=== PATIENT | female | born 2005 | race Caucasian/White ===

== ENCOUNTER 2024-01-02 02:25 | Emergency (ER) | payer SELFPAY ==
[2024-01-02 02:34] VITALS: BP 131/67; PULSE 64; TEMP 36.5; O2SAT 99; BMI 24.0
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
--- NOTE | 2024-01-02 03:33 | PC.NURSE ---
urine and blood draw collected and I walked these sample down to lab dept. this patient was given crackers and something to eat. this patient is aware waiting on the test results to come back, then we will call [facility] some you can talk to someone there. this patient voices no concerns or needs and shows no signs of distress
[2024-01-02 03:40] LABS: Basophils Percent Auto 0.5 % (0.2-2.0); Eosinophils Absolute Auto 0.2 10^3/uL (0.0-0.7); Hematocrit 34.7 % (36.0-48.0); Hemoglobin 10.9 g/dL (12.0-16.0); Immature Granulocytes Abs Auto 0.02 10^3/uL (0.00-0.03); Immature Granulocytes Pct Auto 0.2 % (0.0-0.5); Lymphocytes Absolute Auto 2.5 10^3/uL (1.2-3.8); Lymphocytes Percent Auto 30.4 % (20.5-60.0); Mean Corpuscular HGB Conc 31.4 g/dL (29.9-35.2); Mean Corpuscular Hemoglobin 23.4 pg (26.7-34.0); Mean Corpuscular Volume 74.6 fL (81.0-99.0); Mean Platelet Volume 10.2 fL (9.5-13.5); Monocytes Absolute Auto 0.8 10^3/uL (0.3-0.8); Monocytes Percent Auto 9.4 % (1.7-12.0); Neutrophils Absolute Auto 4.7 10^3/uL (1.4-6.5); Neutrophils Percent Auto 57.5 % (43.0-75.0); Platelet Count 403 10^3/uL (150-450); Red Blood Count 4.65 10^6/uL (4.20-5.40); Red Cell Distribution Width 15.3 % (11.0-15.0); White Blood Count 8.2 10^3/uL (4.0-11.0)
[2024-01-02 03:42] LABS: Bilirubin Urine NEGATIVE (NEGATIVE); Blood Urine NEGATIVE (NEGATIVE); Clarity Urine CLEAR (CLEAR); Color Urine LT. YELLOW (YELLOW); Glucose Urine UA NEGATIVE (NEGATIVE); Ketones Urine >=80 mg/dL (NEGATIVE); Leukocyte Esterase Urine TRACE (NEGATIVE); Nitrite Urine NEGATIVE (NEGATIVE); Protein Urine TRACE mg/dL (NEG/TRACE); Specific Gravity Urine 1.025 (1.005-1.025); pH Urine 6.5 (5.0-9.0)
[2024-01-02 03:51] LABS: Amphetamine Screen Urine NEGATIVE (NEGATIVE); Barbiturates Screen Urine NEGATIVE (NEGATIVE); Benzodiazepines Screen Urine NEGATIVE (NEGATIVE); Buprenorphine Screen Urine NEGATIVE (NEGATIVE); Cannabinoid Screen Urine NEGATIVE (NEGATIVE); Cocaine Screen Urine NEGATIVE (NEGATIVE); Methadone Screen Urine NEGATIVE (NEGATIVE); Methamphetamines Screen Urine NEGATIVE (NEGATIVE); Opiate Screen Urine NEGATIVE (NEGATIVE); Oxycodone Screen Urine NEGATIVE (NEGATIVE); Phencyclidine Screen Urine NEGATIVE (NEGATIVE); Tricyclic Antidepressant Urine NEGATIVE (NEGATIVE)
[2024-01-02 03:59] LABS: Alanine Aminotransferase 35 U/L (14-59); Albumin Globulin Ratio 0.9; Albumin Level 3.6 g/dL (3.4-5.0); Alkaline Phosphatase 115 U/L (46-116); Anion Gap 14.6; Aspartate Amino Transferase 23 U/L (15-37); BUN Creatinine Ratio 9.9; Bilirubin Total 0.3 mg/dL (0.2-1.0); Calcium 9.6 mg/dL (8.5-10.1); Carbon Dioxide 25.9 mmol/L (21.0-32.0); Chloride 104 mmol/L (98-107); Estimated GFR (African America >60 (>=60 mL/min/1.73m^2); Estimated GFR (Non-African Ame >60 (>=60 mL/min/1.73m^2); Glucose 96 mg/dL (74-106); Potassium 3.5 mmol/L (3.5-5.1); Salicylate <2.8 mg/dL (<=19.9); Sodium 141 mmol/L (136-145); Total Protein 7.6 g/dL (6.4-8.2)
[2024-01-02 04:00] LABS: Acetaminophen <2.0 ug/mL (10.0-30.0); Ethanol <3 mg/dL
[2024-01-02 04:08] VITALS: BP 119/72; PULSE 82; O2SAT 99
[2024-01-02 04:09] LABS: Mucus Urine LARGE (NONE SEEN); Squamous Epithelial Cell Urine MODERATE #/LPF (NONE/RARE)
--- NOTE | 2024-01-02 04:09 | PC.NURSE ---
this patient awake and alert sitting upright on the bed looking in her purse and listening to her music. this patient voices no concerns and shows no signs of distress
[2024-01-02 04:11] LABS: Bacteria Urine MODERATE #/HPF (NONE SEEN); Cast Seen? NONE SEEN #/LPF (NONE SEEN); Crystals Seen? None Seen #/HPF (None Seen); RBC Urine 0-2 #/HPF (0-2); Urine Culture Indicated YES
[2024-01-02 04:43] LABS: HCG Qualitative Urine* NEGATIVE (NEGATIVE); Internal Control Within Normal Limits
[2024-01-02 05:05] VITALS: BP 103/75; PULSE 72; O2SAT 95
--- NOTE | 2024-01-02 05:06 | PC.NURSE ---
this patient awake and alert lying on her left side on the bed talking on her cell phone
[2024-01-02 06:05] VITALS: BP 122/77; PULSE 74; O2SAT 98
--- NOTE | 2024-01-02 09:39 | ED.PSYCH1 ---
HPI - Psych General Chief Complaint: Psychiatric Symptoms Stated Complaint: SUICIDAL THOUGHTS Time Seen by Provider: 01/02/24 02:45 Source: Reports patient Mode of arrival: walk-in Limitations: Reports no limitations History of Present Illness HPI Narrative: 18-year-old female presented to the emergency department and was initially seen by Dr. Card. Please see her full history and physical exam. Related Data Home Medications ?Medication ?Instructions ?Recorded ?Confirmed No Known Home Medications 01/02/24 01/02/24 Allergies Allergy/AdvReac Type Severity Reaction Status Date / Time No Known Drug Allergies Allergy Verified 01/02/24 02:33 PFSH PFSH Social History Little interest or pleasure in doing things: not at all Feeling down, depressed, or hopeless: several days Exam Constitutional Vital Signs, click to edit/add: Last Vital Signs Temp 97.7 F 01/02/24 02:34 Pulse 74 01/02/24 06:05 Resp 18 01/02/24 06:05 BP 122/77 01/02/24 06:05 Pulse Ox 98 01/02/24 06:05 O2 Del Method Room Air 01/02/24 02:34 Course Vital Signs Vital signs: Vital Signs Temperature 97.7 F 01/02/24 02:34 Pulse Rate 64 01/02/24 02:34 Respiratory Rate 19 01/02/24 02:34 Blood Pressure 131/67 01/02/24 02:34 Pulse Oximetry 99 01/02/24 02:34 Oxygen Delivery Method Room Air 01/02/24 02:34 Temperature 97.7 F 01/02/24 02:34 Pulse Rate 74 01/02/24 06:05 Respiratory Rate 18 01/02/24 06:05 Blood Pressure 122/77 01/02/24 06:05 Pulse Oximetry 98 01/02/24 06:05 Oxygen Delivery Method Room Air 01/02/24 02:34 MDM - Psych MDM Narrative Medical decision making narrative: The patient is medically cleared. The patient was quite reluctant to provide information for the mental health services personnel and at 1 point made a threat to harm herself. Mental health services has intervened and they are clearing her to go home but have made an appointment for the patient to see psychiatry today as well as multiple other follow-up appointments. Differential Diagnosis Differential diagnosis: Likely acute psychosis, suicidal ideation, bipolar disorder, depression and acute anxiety Lab Data Attestation: I reviewed the patient's lab results. Labs: Lab Results 01/02/24 01/02/24 Range/Units 03:14 03:20 WBC 8.2 (4.0-11.0) 10^3/uL RBC 4.65 (4.20-5.40) 10^6/uL Hgb 10.9 L (12.0-16.0) g/dL Hct 34.7 L (36.0-48.0) % MCV 74.6 L (81.0-99.0) fL MCH 23.4 L (26.7-34.0) pg MCHC 31.4 (29.9-35.2) g/dL RDW 15.3 H (11.0-15.0) % Plt Count 403 (150-450) 10^3/uL MPV 10.2 (9.5-13.5) fL Neut % (Auto) 57.5 (43.0-75.0) % Lymph % (Auto) 30.4 (20.5-60.0) % [place] % (Auto) 9.4 (1.7-12.0) % Eos % (Auto) 2.0 (0.9-7.0) % Baso % (Auto) 0.5 (0.2-2.0) % Neut # (Auto) 4.7 (1.4-6.5) 10^3/uL Lymph # (Auto) 2.5 (1.2-3.8) 10^3/uL [place] # (Auto) 0.8 (0.3-0.8) 10^3/uL Eos # (Auto) 0.2 (0.0-0.7) 10^3/uL Baso # (Auto) 0.0 (0.0-0.1) 10^3/uL Abs Immat Gran (auto) 0.02 (0.00-0.03) 10^3/uL Imm/Tot Granulo (auto) 0.2 (0.0-0.5) % Sodium 141 (136-145) mmol/L Potassium 3.5 (3.5-5.1) mmol/L Chloride 104 (98-107) mmol/L Carbon Dioxide 25.9 (21.0-32.0) mmol/L Anion Gap 14.6 BUN 8.0 (6.4-19.3) mg/dL Creatinine 0.81 (0.55-1.02) mg/dL Est GFR ( Amer) >60 (>=60 mL/min/1.73m^2) Est GFR (Non-Af Amer) >60 (>=60 mL/min/1.73m^2) BUN/Creatinine Ratio 9.9 Glucose 96 (74-106) mg/dL Calcium 9.6 (8.5-10.1) mg/dL Total Bilirubin 0.3 (0.2-1.0) mg/dL AST 23 (15-37) U/L ALT 35 (14-59) U/L Alkaline Phosphatase 115 (46-116) U/L Total Protein 7.6 (6.4-8.2) g/dL Albumin 3.6 (3.4-5.0) g/dL Globulin 4.0 g/dL Albumin/Globulin Ratio 0.9 Urine Color Lt. yellow (YELLOW) Urine Clarity Clear (CLEAR) Urine pH 6.5 (5.0-9.0) Ur Specific [place] 1.025 (1.005-1.025) Urine Protein Trace (NEG/TRACE) mg/dL Urine Glucose (UA) Negative (NEGATIVE) mg/dL Urine Ketones >=80 A (NEGATIVE) mg/dL Urine Occult Blood Negative (NEGATIVE) Urine Nitrite Negative (NEGATIVE) Urine Bilirubin Negative (NEGATIVE) Urine Urobilinogen 1.0 (0.2-1.0) EU/dL Ur Leukocyte Esterase Trace A (NEGATIVE) Urine RBC 0-2 (0-2) #/HPF Urine WBC 5-10 A (NONE SEEN) #/HPF Ur Squamous Epith Cells Moderate A (NONE/RARE) #/LPF Urine Crystals None seen (None Seen) #/HPF Urine Bacteria Moderate A (NONE SEEN) #/HPF Urine Casts None seen (NONE SEEN) #/LPF Urine Mucus Large A (NONE SEEN) Ur Culture Indicated? Yes Urine HCG, Qual Negative (NEGATIVE) Salicylates <2.8 (<=19.9) mg/dL Urine Opiates Screen Negative (NEGATIVE) Ur Buprenorphine Scrn Negative (NEGATIVE) Ur Oxycodone Screen Negative (NEGATIVE) Urine Methadone Screen Negative (NEGATIVE) Acetaminophen <2.0 L (10.0-30.0) ug/mL Ur Barbiturates Screen Negative (NEGATIVE) U Tricyclic Antidepress Negative (NEGATIVE) Ur Phencyclidine Scrn Negative (NEGATIVE) Ur Amphetamines Screen Negative (NEGATIVE) U Methamphetamines Scrn Negative (NEGATIVE) U Benzodiazepines Scrn Negative (NEGATIVE) Urine Cocaine Screen Negative (NEGATIVE) U Cannabinoids Screen Negative (NEGATIVE) Ethanol Quant <3 mg/dL Discharge Plan Discharge Chief Complaint: Psychiatric Symptoms Clinical Impression: Bipolar disorder Patient Disposition: Home, Self-Care Time of Disposition Decision: 09:56 Condition: Good Mode of Transportation: Private Vehicle Prescriptions / Home Meds: No Action No Known Home Medications Print Language: Niuean Instructions: Bipolar Disorder (ED) Referrals: Physician,Non-Staff, MD [Primary Care Provider] - 1 week
== END 2024-01-02 12:30 | disposition home or self-care (01) ==
PROVIDERS: Emergency Medicine; Emergency Provider Emergency Medicine
DX: F31.9 Bipolar disorder, unspecified (principal); F90.9 Attention-deficit hyperactivity disorder, unspecified type; F41.9 Anxiety disorder, unspecified; F43.10 Post-traumatic stress disorder, unspecified; Z62.810 Personal history of physical and sexual abuse in childhood; Z62.819 Personal history of unspecified abuse in childhood; Z59.89 Other problems related to housing and economic circumstances; R82.998 Other abnormal findings in urine
CPT/HCPCS: 36415; 80053; 80179; 80307; 80320; 80329; 81001; 84703; 85025; 87086; 99284

== ENCOUNTER 2024-05-16 21:26 | Emergency (ER) | payer MEDICAID, SELFPAY ==
[2024-05-16 21:31] VITALS: BP 119/61; PULSE 66; TEMP 36.6; O2SAT 97; BMI 26.0
[2024-05-16 21:33] VITALS: PULSE 75
--- OUTSIDE RECORDS SUMMARY | 2024-05-16 21:37 | XMS_ITS | CCD ---
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 Role Phone WAN VASQUEZ Consulting Unavailable JUANCHO, DR RUIZ Primary Care Unavailable KUNAL FRANK Attending Unavailable KUNAL FRANK Admitting Unavailable CY HERNANDEZ Consulting Unavailable KUNAL FRANK Consulting Unavailable NONE, XXXX Primary Care Physician Holli Garvin Primary Care Physician Vijay PACHECO Primary Care Physician Kourtney PIERCE Unavailable [facility], [facility] Primary Care Physician Eamon Stahllocatmeseret, Noms Provider Primary Care Provider Ras Miller Attending Unavailable Jerry WILSON Admitting Unavailable HELIO PIERCE Attending Unavaila ble PIERCEHELIO Admitting Unavaila ble DO Magalis Snow Attending Unavaila DO Magalis Acevedo Admitting Unavaila ble Alon Jonhson Attending Unavailable Alon Johnson Admitting Unavailable Steven Alatorre Attending Unavailable Steven Alatorre Attending Unavailable Alon Johnson Attending Unavailable Steven Alatorre Attending Unavailable Steven Alatorre Attending Unavailable Damaris Jean Baptiste Attending Unavailable STEVE, Jerry R Admitting Unavailable STEVEScot REGANy R Attending Unavailable HELIO PIERCE Attending Unavaila ble PIERCEHELIO Admitting Unavaila ble Kourtney PIERCE Admitting Unavailable Kourtney PIERCE Attending Unavailable DO Magalis Snow Attending Unavaila DO Magalis Acevedo Admitting Unavaila Magalis Acevedo Admitting Unavailable Magalis Snow Attending Unavailable Magalis Snow Attending Unavailable Magalis Snow Admitting Unavailable Magalis Snow Attending Unavailable Magalis Snow Admitting Unavailable DO Magalis Snow Attending Unavaila DO Magalis Acevedo Admitting Unavaila kelsie Eduardolojess CASE, Noms Provider Primary Care Provi nani John Paul Lovell MD Primary Care Provider Wil Rider MD Attending Provider Wil Rider Attending Unavailab Wil Loco Admitting Unavailab John Paul Duncan Primary Care Unavailable Sadie Thomas MD Primary Care Provider Mak Jordan NP Unavailable EDUARDO BUTLER Referring Unavailable MAGALIS SNOW Attending Unavailable MAGALIS SNOW Attending Unavailable MAGALIS SNOW Attending Unavailable MAGALIS SNOW Attending Unavailable MAK JORDAN Attending Unavailable Allergies Allergy Classification Reported Allergen(s) Allergy Type Date of Onset Reaction(s) Facility (6 sources) No Known Medication Allergies; Translations: [No Known Medication Allergies] Propensity to adverse reactions (disorder) [facility] Repository Medications Current Medications Medication Drug Class(es) Dates Sig (Normalized) Sig (Original) acetaminophen 325 mg oral tablet (3 sources) Start: 09-11-2023 take 3 tablets by mouth every eight hours as needed for headache acetaminophen 325 mg Tab 975 mg = 3 tab(s), Oral, q8hr, PRN Headache, # 90 tab(s), Refills(s) 1, Pharmacy: [facility], 165.1, cm, 09/10/23 21:47:00 EDT, Height/Length Dosing, 84.5, kg, 09/10/23 21:47:00 EDT, Weight Dosing Start Date: 09/11/23 Status: Ordered [id number] 200 actuat albuterol 0.09 mg/actuat metered dose inhaler (4 sources) beta2-Adrenergic Agonist Start: 10-16-2023 End: 10-15-2024 take 2 puff(s) by inhalation every four hours for wheezing albuterol HFA (ProAir HFA) 90 mcg/act inhaler Indications: Wheezing , COVID-19 Inhale 2 puffs every 4 (four) hours if needed for wheezing 18 g 11 10/16/2023 10/15/2024 Active amoxicillin 875 mg / clavulanate 125 mg oral tablet (1 source) Penicillin-class Antibacterial Start: 10-30-2022 End: 11-09-2022 Augmentin 875 mg-125 mg Tab 1 tab(s), Oral, q12hr for 10 day(s), 20 tab(s), Refill(s) 0, [facility] #[id number], 165.1, cm, 10/30/22 10:55:00 EDT, Height/Length Dosing, 80.5, kg, 10/30/22 10:55:00 EDT, Weight Dosing Start Date: 10/30/22 Stop Date: 11/09/22 Status: Ordered Amphetamine / Dextroamphetamine (2 sources) Central Nervous System Stimulant Start: 06-02-2021 take 1 tablet by mouth twice daily Adderall 30 mg oral tablet 30 mg, 1 tab(s), Oral, BID, Refill(s) 0 Start Date: 06/02/21 Status: Ordered amphetamine aspartate 7.5 mg / amphetamine sulfate 7.5 mg / dextroamphetamine saccharate 7.5 mg / dextroamphetamine sulfate 7.5 mg oral tablet (5 sources) Central Nervous System Stimulant Start: 06-02-2021 take 1 tablet by mouth twice daily Adderall 30 mg oral tablet 30 mg, 1 tab(s), Oral, BID, Refill(s) 0 Start Date: 06/02/21 Status: Ordered brompheniramine maleate 0.4 mg/ml / dextromethorphan hydrobromide 2 mg/ml / pseudoephedrine hydrochloride 6 mg/ml oral solution (1 source) alpha-Adrenergic Agonist, Uncompetitive [id number]-asparta te Receptor Antagonist, Sigma-1 Agonist Start: 01-01-2023 End: 01-08-2023 take 5 mL by mouth every six hours brompheniramine/de xtromethorphan/PSE 2 mg-10 mg-30 mg/5 mL oral syrup 5 mL, Oral, q6hr for cold symptoms for 7 day(s), 140 mL, Refill(s) 0, [facility]/pharmacy #[id number], 165, cm, 01/01/23 15:53:00 EST, Height/Length Dosing, 77, kg, 01/01/23 15:53:00 EST, Weight Dosing Start Date: 01/01/23 Stop Date: 01/08/23 Status: Ordered cephalexin 500 mg oral capsule (1 source) Cephalosporin Antibacterial Start: 01-05-2022 End: 01-12-2022 take 1 capsule by mouth every twelve hours Keflex 500 mg Cap 500 mg = 1 cap(s), Oral, q12hr, X 7 day(s), # 14 cap(s), Refills(s) 0, Pharmacy: [facility] #[id number], 165, cm, 01/05/22 7:56:00 EST, Height/Length Dosing, 74.1, kg, 01/05/22 7:56:00 EST, Weight Dosing Start Date: 01/05/22 Stop Date: 01/12/22 Status: Ordered docusate sodium 100 mg oral capsule (3 sources) Start: 09-11-2023 take 1 capsule by mouth twice daily docusate sodium 100 mg Cap 100 mg = 1 cap(s), Oral, BID, # 30 cap(s), Refills(s) 1, Pharmacy: [facility], 165.1, cm, 09/10/23 21:47:00 EDT, Height/Length Dosing, 84.5, kg, 09/10/23 21:47:00 EDT, Weight Dosing Start Date: 09/11/23 Status: Ordered ferrous sulfate 325 mg oral tablet (10 sources) Start: 09-11-2023 ferrous sulfate 325 mg Tab 325 mg = 1 tab(s), Oral, BIDWM, # 60 tab(s), Refills(s) 5, Pharmacy: [facility], 165.1, cm, 09/10/23 21:47:00 EDT, Height/Length Dosing, 84.5, kg, 09/10/23 21:47:00 EDT, Weight Dosing Start Date: 09/11/23 Status: Ordered Start: 06-09-2021 take 1 tablet by leslie th once daily Slow Fe (as elemental iron) 45 mg oral tablet, extended release 45 mg = 1 tab(s), Oral, Daily, # 30 tab(s), Refills(s) 1, [id number] 165.1, cm, 06/07/21 7:55:00 EDT, Height/Length Dosing, 83.6, kg, 06/07/21 7:55:00 EDT, Weight Dosing Start Date: 06/09/21 Status: Ordered ibuprofen 600 mg oral tablet (20 sources) Nonsteroidal Anti-inflammatory Drug Start: 09-11-2023 take 1 tablet by mouth every six hours as needed ibuprofen 600 mg Tab 600 mg = 1 tab(s), Oral, q6hr, PRN Other (see comment), # 60 tab(s), Refills(s) 1, Pharmacy: [place] [id number], 165.1, cm, 09/10/23 21:47:00 EDT, Height/Length Dosing, 84.5, kg, 09/10/23 21:47:00 EDT, Weight Dosing Start Date: 09/11/23 Status: Ordered Start: 08-09-2022 take 1 tablet by leslie every six hours ibuprofen 600 mg Tab 600 mg = 1 tab(s), Oral, q6hr, # 40 tab(s), Refills(s) 0, Pharmacy: [facility] #[id number], 165.1, cm, 08/07/22 17:54:00 EDT, Height/Length Dosing, 84.5, kg, 08/07/22 17:54:00 EDT, Weight Dosing Start Date: 08/09/22 Status: Ordered Start: 06-09-2021 take 1 tablet by leslie every six hours ibuprofen 600 mg Tab 600 mg = 1 tab(s), Oral, q6hr, # 15 tab(s), Refills(s) 0, Pharmacy: [facility]acy #[id number], 165.1, cm, 06/07/21 7:55:00 EDT, Height/Length Dosing, 83.6, kg, 06/07/21 7:55:00 EDT, Weight Dosing Start Date: 06/09/21 Status: Ordered Start: 01-28-2020 take 1 tablet by leslie every eight hours ibuprofen 600 mg Tab 600 mg = 1 tab(s), Oral, q8hr, # 42 tab(s), Refills(s) 1, Pharmacy: [facility] #[id number], 169, cm, 01/27/20 13:57:00 EST, Height/Length Dosing, 70.9, kg, 01/27/20 13:57:00 EST, Weight Dosing Start Date: 01/28/20 Status: Ordered metoclopramide 5 mg oral tablet (11 sources) Dopamine-2 Receptor Antagonist Start: 01-26-2023 End: 02-02-2023 take 1 tablet by mouth four times daily as needed for nausea Reglan 5 mg Tab 5 mg = 1 tab(s), Oral, QID, as needed for nausea, X 7 day(s), # 15 tab(s), Refills(s) 0 Start Date: 01/26/23 Stop Date: 02/02/23 Status: Ordered Start: 01-02-2022 End: 01-09-2022 take 1 tablet by mouth every six hours Reglan 5 mg Tab 5 mg = 1 tab(s), Oral, q6hr, X 7 day(s), # 28 tab(s), Refills(s) 0, Pharmacy: [facility] #[id number], 165, cm, 10/16/21 20:16:00 EDT, Height/Length Dosing, 75.2, kg, 01/02/22 12:43:00 EST, Weight Dosing Start Date: 01/02/22 Stop Date: 01/09/22 Status: Ordered Start: 10-26-2020 take 1 tablet by leslie th every six hours as needed for nausea Reglan 10 mg Tab 10 mg = 1 tab(s), Oral, q6hr, PRN Nausea, # 10 tab(s), Refills(s) 0, Pharmacy: [facility] #[id number], 168, cm, 10/26/20 13:25:00 EDT, Height/Length Dosing, 75, kg, 10/26/20 13:25:00 EDT, Weight Dosing Start Date: 10/26/20 Status: Ordered naproxen 500 mg oral tablet (9 sources) Nonsteroidal Anti-inflammatory Drug Start: 09-14-2021 take 1 tablet by mouth twice daily as needed for pain Naprosyn 500 mg Tab 500 mg = 1 tab(s), Oral, BID, PRN Pain, # 20 tab(s), Refills(s) 0, [id number], cm, 10/16/21 20:16:00 EDT, Height/Length Dosing, 73.4, kg, 10/16/21 20:33:00 EDT, Weight Dosing Start Date: 10/16/21 Status: Ordered nitrofurantoin, macrocrystals 25 mg / nitrofurantoin, monohydrate 75 mg oral capsule (1 source) Nitrofuran Antibacterial Start: 02-13-2023 End: 02-18-2023 take 1 capsule by mouth twice daily Macrobid 100 mg Cap 100 mg = 1 cap(s), Oral, BID, X 5 day(s), # 10 cap(s), Refills(s) 0, [id number], 165, cm, 02/13/23 14:25:00 EST, Height/Length Dosing, 69.5, kg, 02/13/23 14:25:00 EST, Weight Dosing Start Date: 02/13/23 Stop Date: 02/18/23 Status: Ordered ondansetron 8 mg disintegrating oral tablet (8 sources) Serotonin-3 Receptor Antagonist Start: 10-26-2020 take 1 tablet by mouth every eight hours as needed for nausea ondansetron 8 mg Dis Tab 8 mg = 1 tab(s), Oral, q8hr, PRN Nausea/Vomiting, # 6 tab(s), Refills(s) 0, Pharmacy: [facility] #[id number], 168, cm, 10/26/20 13:25:00 EDT, Height/Length Dosing, 75, kg, 10/26/20 13:25:00 EDT, Weight Dosing Start Date: 10/26/20 Status: Ordered Start: 10-26-2020 take 1 tablet by leslie th every eight hours as needed for nausea ondansetron 8 mg Dis Tab 8 mg = 1 tab(s), Oral, q8hr, PRN Nausea/Vomiting, # 6 tab(s), Refills(s) 0, Pharmacy: [facility] #[id number], 168, cm, 10/26/20 13:25:00 EDT, Height/Length Dosing, 75, kg, 10/26/20 13:25:00 EDT, Weight Dosing Start Date: 10/26/20 Status: Ordered penicillin v potassium 500 mg oral tablet (5 sources) Start: 10-16-2021 take 1 tablet by mouth every six hours penicillin V potassium 500 mg Tab 500 mg = 1 tab(s), Oral, q6hr, # 28 tab(s), Refills(s) 0, Pharmacy: [facility]acy #[id number], 165, cm, 10/16/21 20:16:00 EDT, Height/Length Dosing, 73.4, kg, 10/16/21 20:33:00 EDT, Weight Dosing Start Date: 10/16/21 Status: Ordered Start: 09-14-2021 End: 09-24-2021 take 1 tablet by mouth three times daily penicillin V potassium 500 mg Tab 500 mg = 1 tab(s), Oral, TID, Take one tab by mouth 3 times a day. # 30, X 10 day(s), # 30 tab(s), Refills(s) 0, Pharmacy: [facility]acy #[id number], 165.1, cm, 06/07/21 7:55:00 EDT, Height/Length Dosing, 83.6, kg, 06/07/21 7:55:00 EDT, Weight Dosing Start Date: 09/14/21 Stop Date: 09/24/21 Status: Ordered Vit-Fe Fumarate-FA ( Vitamins) 28-0.8 MG tablet (1 source) Start: 05-09-2024 End: 05-09-2025 take 1 tablet by mouth once daily Vit-Fe Fumarate-FA ( Vitamins) 28-0.8 MG tablet Indications: Missed menses , , unspecified gestational age , Encounter for supervision of normal first in first trimester Take 1 tablet by mouth Daily 30 tablet 11 05/09/2024 05/09/2025 Active promethazine hydrochloride 12.5 mg rectal suppository (8 sources) Phenothiazine Start: 02-13-2023 End: 02-18-2023 take 12.5 mg rectal route every four hours as needed promethazine 12.5 mg Supp 12.5 mg = 1 supp, Rectal, q4hr, PRN for motion sickness, X 5 day(s), # 30 supp, Refills(s) 0, Pharmacy: [facility] #[id number], 165, cm, 02/13/23 14:25:00 EST, Height/Length Dosing, 69.5, kg, 02/13/23 14:25:00 EST, Weight Dosing Start Date: 02/13/23 Stop Date: 02/18/23 Status: Ordered Start: 01-23-2023 take 25 mg rectal ro salamatof every six hours as needed for nausea promethazine 25 mg Supp 25 mg = 1 supp, Rectal, q6hr, PRN for nausea/vomiting, # 12 supp, Refills(s) 0 Start Date: 01/23/23 Status: Ordered Start: 01-05-2022 take 1 tablet by leslie th three times daily promethazine 25 mg Tab 25 mg = 1 tab(s), Oral, TID, # 15 tab(s), Refills(s) 0, [id number], 165, cm, 01/05/22 7:56:00 EST, Height/Length Dosing, 74.1, kg, 01/05/22 7:56:00 EST, Weight Dosing Start Date: 01/05/22 Status: Ordered Zofran ODT 4 mg Tab-Dis (14 sources) Start: 02-13-2023 End: 02-15-2023 take 1 tablet by mouth every eight hours Zofran ODT 4 mg Tab-Dis 4 mg = 1 tab(s), Oral, q8hr, X 2 day(s), # 6 tab(s), Refills(s) 0, Pharmacy: [facility] #[id number], 165, cm, 02/13/23 14:25:00 EST, Height/Length Dosing, 69.5, kg, 02/13/23 14:25:00 EST, Weight Dosing Start Date: 02/13/23 Stop Date: 02/15/23 Status: Ordered Start: 01-23-2023 take 1 tablet by leslie th three times daily Zofran ODT 4 mg Tab-Dis 4 mg = 1 tab(s), Oral, TID, # 15 tab(s), Refills(s) 0 Start Date: 01/23/23 Status: Ordered Start: 01-18-2022 take 1 tablet by leslie th every eight hours as needed for nausea Zofran ODT 4 mg Tab-Dis 4 mg = 1 tab(s), Oral, q8hr, PRN Nausea/Vomiting, # 20 tab(s), Refills(s) 0, Pharmacy: [facility] #[id number], 165.1, cm, 01/18/22 1:14:00 EST, Height/Length Dosing, 74.4, kg, 01/18/22 1:14:00 EST, Weight Dosing Start Date: 01/18/22 Status: Ordered Completed/Discontinued Medications Medication Drug Class(es) Dates Sig (Normalized) Sig (Original) albuterol HFA 90 mcg/inh MDI (8 sources) Start: 08-17-2020 take 1 dose by inhalation every four hours albuterol HFA 90 mcg/inh MDI 2 puff(s), Inhalation, q4hr Shortness of breath or wheezing, 1 EA, Refill(s) 0, [facility] #[id number], 168.2, cm, 08/17/20 15:12:00 EDT, Height/Length Dosing, 71.8, kg, 08/17/20 15:12:00 EDT, Weight Dosing Start Date: 08/17/20 Status: Ordered Multivitamins with Folic Acid 1 mg Tab (12 sources) Start: 01-23-2023 take 1 tablet by mouth once daily Multivitamins with Folic Acid 1 mg Tab 1 tab(s), Oral, Daily, 30 tab(s), Refill(s) 0 Start Date: 01/23/23 Status: Ordered Vit-Fe Fumarate-FA (M-Mickey Plus) 27-1 MG tablet (8 sources) Start: 01-24-2023 End: 10-16-2023 take 1 tablet by mouth in the morning Vit-Fe Fumarate-FA (M- Plus) 27-1 MG tablet Take 1 tablet by mouth in the morning. 01/24/2023 10/16/2023 Discontinued (Therapy completed) Start: 01-24-2023 take 1 tablet by leslie th in the morning Vit-Fe Fumarate-FA (M- Plus) 27-1 MG tablet Take 1 tablet by mouth in the morning. 01/24/2023 Active Start: 01-24-2023 take 1 tablet by leslie th in the morning Vit-Fe Fumarate-FA (M-Mickey Plus) 27-1 MG tablet Take 1 tablet by mouth in the morning. 0 01/24/2023 Active Problems Active Problems Problem Classification Problem Date Documented Date Episodic/Chronic Attention-deficit, conduct, and disruptive behavior disorders (20 sources) Attention deficit hyperactivity disorder, combined type; Translations: [Attention-deficit hyperactivity disorder, combined type] Onset: 06-09-2021 06-27-2018 Chronic Disorders of teeth and jaw (4 sources) Disorder of teeth AND/OR supporting structures; Translations: [Other specified disorders of teeth and supporting structures] Onset: 09-14-2021 Episodic Fluid and electrolyte disorders (1 source) Hypokalemia; Translations: [Hypokalemia] Onset: 02-13-2023 Episodic Hemorrhage during ; abruptio placenta; placenta previa (4 sources) Hemorrhage in early , unspecified; Translations: [Threatened ] Onset: 11-01-2020 Episodic Menstrual disorders (1 source) Missed period; Translations: [Irregular menstruation, unspecified] 05-08-2024 Chronic Mood disorders (2 sources) Bipolar disorder, most recent episode depression; Translations: [Bipolar disorder, unspecified] 10-16-2023 Chronic Other complications of (1 source) Anemia in mother complicating , childbirth AND/OR puerperium; Translations: [Anemia complicating , unspecified trimester] Onset: 09-11-2023 Chronic Other complications of (1 source) Mild hyperemesis gravidarum; Translations: [MILD HYPEREMESIS GRAVIDARUM] Onset: 11-03-2020 Episodic Other complications of (2 sources) Supervision of high risk done; Translations: [Supervision of other high risk pregnancies, unspecified trimester] Onset: 06-09-2021 Episodic Other complications of (2 sources) Urinary tract infection in ; Translations: [Unspecified infection of urinary tract in , unspecified trimester] Onset: 01-05-2022 Episodic Other complications of (2 sources) Vomiting of ; Translations: [Vomiting of , unspecified] Onset: 01-23-2023 Episodic Other complications of (1 source) Mild hyperemesis gravidarum; Translations: [Mild hyperemesis gravidarum] Onset: 02-13-2023 Episodic Other complications of (1 source) Supervision of with insufficient care, third trimester; Translations: [O09.33] Onset: 09-10-2023 Episodic Other infections; including parasitic (17 sources) Disorder due to infection 08-07-2022 Episodic Other lower respiratory disease (20 sources) Dyspnea 03-25-2019 Episodic Other non-traumatic joint disorders (1 source) Pain in right knee; Translations: [Right knee pain] 04-01-2024 Episodic Other and delivery including normal (20 sources) Finding related to ; Translations: [Delivery normal] Onset: 06-09-2021 03-24-2021 Episodic Residual codes; unclassified (1 source) 8 weeks gestation of ; Translations: [8 WEEKS GESTATION OF ] Onset: 11-03-2020 Episodic Residual codes; unclassified (18 sources) Gestation period, 37 weeks; Translations: [37 weeks gestation of ] Onset: 08-09-2022 Episodic Residual codes; unclassified (2 sources) Gestation period, 12 weeks; Translations: [12 weeks gestation of ] 03-20-2023 Episodic Residual codes; unclassified (1 source) Gestation period, 39 weeks; Translations: [39 weeks gestation of ] Onset: 09-11-2023 Episodic Unclassified (4 sources) Age mother conceived under 17( Confirmed ) 06-07-2021 Unclassified (20 sources) Age mother conceived under 17 06-07-2021 Past or Other Problems Problem Classification Problem Date Documented Date Episodic/Chronic Anxiety disorders (20 sources) Posttraumatic stress disorder; Translations: [Anxiety] Resolved: 02-06-2020 09-04-2019 Chronic Comment on above: resolved per patient . Blindness and vision defects (20 sources) Blurring of visual image Resolved: 02-05-2021 09-04-2019 Episodic Comment on above: resolved per patient Deficiency and other anemia (1 source) Anemia; Translations: [Anemia, unspecified] 10-17-2023 Episodic Intestinal infection (20 sources) Viral gastroenteritis Resolved: 02-06-2020 10-20-2020 Episodic Nausea and vomiting (20 sources) Vomiting; Translations: [Nausea and vomiting] Onset: 01-02-2022 Resolved: 02-06-2020 06-20-2018 Episodic Noninfectious gastroenteritis (20 sources) Acute gastroenteritis Resolved: 02-06-2020 11-19-2018 Episodic Comment on above: resolved per patient Nonspecific chest pain (20 sources) Chest pain Resolved: 02-06-2020 03-25-2019 Episodic Comment on above: resolved per patient Other complications of ; puerperium affecting management of mother (1 source) Other infections with a predominantly sexual mode of transmission complicating childbirth; Translations: [O98.32] Onset: 08-07-2022 Episodic Other hematologic conditions (2 sources) History of anemia; Translations: [Personal history of diseases of the blood and blood-forming organs and certain disorders involving the immune mechanism] 10-16-2023 Episodic Other lower respiratory disease (2 sources) Wheezing; Translations: [Wheezing] 10-16-2023 Episodic Other screening for suspected conditions (not mental disorders or infectious disease) (4 sources) Procedure carried out on subject; Translations: [Encounter for screening, unspecified] Onset: 12-07-2022 Episodic Other skin disorders (2 sources) Disorder of skin of upper limb; Translations: [Disorder of the skin and subcutaneous tissue, unspecified] 10-16-2023 Episodic Other upper respiratory disease (20 sources) Inspiratory stridor Resolved: 05-22-2018 06-03-2018 Episodic Other upper respiratory infections (20 sources) Streptococcal sore throat Resolved: 05-22-2018 06-03-2018 Episodic Spondylosis; intervertebral disc disorders; other back problems (20 sources) Acute low back pain Resolved: 02-06-2020 09-04-2019 Episodic Comment on above: resolved per patient Unclassified (6 sources) None (qualifier value) 05-18-2018 Unclassified (20 sources) Onset: 09-02-2020 Resolved: 09-11-2023 03-24-2021 Viral infection (2 sources) Disease caused by 2019-nCoV; Translations: [COVID-19] 10-16-2023 Episodic NEGATED: Highlighted row has been ruled out!Unclassified (4 sources) No known active problems 03-20-2023 Results Test Name Value Interpretation Reference Range Facility HCG ( test) Ql (U)o n 05-09-2024 Interpretation and review of laboratory results Abnormal [facility] Preg Test, Ur Positive Negative [facility] US OB LIMITED 1+ FETUSESon 0 05-09-2024 US OB LIMITED 1+ FETUSES EXAM: US OB HA ITED 1+ FETUSES HISTORY: Dating. COMPARISON: None available. TECHNIQUE: Two-dimensional transabdominal grayscale ultrasound imaging of the pelvis was performed. FINDINGS: Gestation: Single Presentation: Variable Cardiac Activity: 139 beats per minute Placental Location: Anterior with no sonographic abnormalities identified. Cervical canal: Not visualized Amniotic Fluid: Appears adequate MEASUREMENTS: BPD: 3.9 cm EGA: 17 weeks 5 days HC: 13.7 cm EGA: 17 weeks 1 days AC: 12.7 cm EGA: 18 weeks 2 days FL: 2.4 cm EGA: 17 weeks 3 days HC/AC Ratio: 1.08 The gestational age by today's ultrasound is 17 weeks 5 days (+/- 9 days gestation). IMPRESSION: 1. Single, live intrauterine gestation 10 weeks, 6 days by LMP. Today's ultrasound measurements correlate with a gestational age of 17 weeks 5 days. ALISHA is 10/12/2024. Electronically Signed:Electronical ly signed by RAS MCKINLEY II, MD, PHD at 11-May-2024 10:37:55 PM [facility] Normal Not Available Comment on above: Order Comment: US OB TRANSVAGINAL No LMP recorded. Urinalysis macro (dipstick) panel (U)on 05-09-2024 Bilirubin, UA Negative Negative - 4(70) +++ mg/dL [facility] Blood, UA Negative Negative - 50 Eliseo/mcL [facility] Clarity, UA Clear [facility] Color, UA Yellow [facility] Glucose, UA Negative Negative - 1999(110) ++++ mg/dL [facility] Interpretation and review of laboratory results Abnormal [facility] Ketones, UA Negative Negative - 160(16) ++++ mg/dL [facility] Leukocytes, UA Positive Negative - 500+++ Jeremias/mcL [facility] Comment on above: small Nitrite, UA Negative Negative - Positive [facility] pH, UA 7 5 - 9 [facility] Protein, UA Negative Negative - 2000(20) ++++ mg/dL [facility] Spec Grav, UA 1.025 1 - 1.03 [facility] Urobilinogen, UA 0.2 0.2 - 12 mg/dL [facility] Chlamydia/Gonococcus, NAAon 01-12-2024 C. trachomatis rRNA TIM+probe Ql (Unsp spec) Negative Invalid Interpretation Code Negative [facility] Comment on above: Performed By: #### 1 [id number] #### [facility] [address] [place] [address] N. gonorrhoeae rRNA TIM+probe Ql (Unsp spec) Negative Invalid Interpretation Code Negative [facility] Comment on above: Result Comment: Perf ormed at: =G [facility] [address] [facility] [place], [place] [id number] MD Rodriguez Briones Performed By: #### 1 [id number] #### [facility] [address] [place] [address] CBC w/Indiceson 09-12-2023 Basophilic stippling LM Ql (Bld) PRESENT Invalid Interpretation Code [facility] Comment on above: Performed By: #### 2 [id number] ####[facility] [address] [place] [address] Erythrocyte distribution width (RBC) [Ratio] 16.6 % High 10.9-14.2 [facility] Comment on above: Performed By: #### 2 [id number] ####[facility] [address] [place] [address] Hematocrit (Bld) [Volume fraction] 23.6 % Low 34.0-46.0 [facility] Comment on above: Performed By: #### 2 [id number] ####[facility] [address] [place] [address] Hemoglobin (Bld) [Mass/Vol] 7.6 g/dL Low 12.0-16.0 [facility] Comment on above: Performed By: #### 2 [id number] ####[facility] [address] [place] [address] Hypochromia Auto Ql (Bld) PRESENT Invalid Interpretation Code [facility] Comment on above: Performed By: #### 2 [id number] ####[facility] [address] [place] [address] MCH (RBC) [Entitic mass] 21.8 pg Low 27.0-34.0 [facility] Comment on above: Performed By: #### 2 [id number] ####[facility] [address] [place] [address] MCHC (RBC) [Mass/Vol] 32.3 g/dL Normal 31.4-36.0 [facility] Comment on above: Performed By: #### 2 [id number] ####[facility] [address] [place] [address] MCV (RBC) [Entitic vol] 67.6 fL Low 80.0-100.0 [facility] Comment on above: Performed By: #### 2 [id number] ####[address] [address] Microcytes Ql (Bld) PRESENT Invalid Interpretation Code [facility] Comment on above: Performed By: #### 2 [id number] ####[address] [address] Platelet 202.0 E9/L Normal 150.0-500.0 [facility] Comment on above: Performed By: #### 2 [id number] ####[facility] [address] [place] [address] Platelet mean volume (Bld) [Entitic vol] 9.2 fL Normal 6.4-10.8 [facility] Comment on above: Performed By: #### 2 [id number] ####[address] [address] Platelets Large LM Ql (Bld) PRESENT Invalid Interpretation Code [facility] Comment on above: Performed By: #### 2 [id number] ####[facility] [address] [place] [address] Polychromasia LM Ql (Bld) PRESENT Invalid Interpretation Code [facility] Comment on above: Performed By: #### 2 [id number] ####[facility] [address] [place] [address] RBC (Bld) [#/Vol] 3.5 E12/L Low 4.3-5.9 [facility] Comment on above: Performed By: #### 2 [id number] ####[facility] [address] [place] [address] RBC size Nom (Bld) NORMAL Invalid Interpretation Code [facility] Comment on above: Performed By: #### 2 [id number] ####[facility] [address] [place] [address] WBC corrected for nucl RBC Auto (Bld) [#/Vol] 10.0 E9/L Normal 4.0-11.0 [facility] Comment on above: Performed By: #### 2 [id number] ####[facility] [address] [place] [address] HEMATOLOGYOrdered By: SYSTEM SYSTEM on 09-12-2023 Basophilic stippling LM Ql (Bld) PRESENT *NA* (09/12/23 6:31 AM) Invalid Interpretation Code [facility] Erythrocyte distribution width (RBC) [Ratio] 16.6 % High 10.9 - 14.2 % [facility] Hematocrit (Bld) [Volume fraction] 23.6 % Low 34.0 - 46.0 % [facility] Hemoglobin (Bld) [Mass/Vol] 7.6 g/dL Low 12.0 - 16.0 gm/dL [facility] Hypochromia Auto Ql (Bld) PRESENT *NA* (09/12/23 6:31 AM) Invalid Interpretation Code [facility] MCH (RBC) [Entitic mass] 21.8 pg Low 27. 0 - 34.0 pg [facility] MCHC (RBC) [Mass/Vol] 32.3 g/dL Normal 31.4 - 36.0 gm/dL [facility] MCV (RBC) [Entitic vol] 67.6 fL Low 80.0 - 100.0 fL [facility] Microcytes Ql (Bld) PRESENT *NA* (09/12/23 6:31 AM) Invalid Interpretation Code [facility] Platelet 202.0 E9/L Normal 150.0 - 500.0 E9/L [facility] Platelet mean volume (Bld) [Entitic vol] 9.2 fL Normal 6.4 - 10.8 fL [facility] Platelets Large LM Ql (Bld) PRESENT *NA* (09/12/23 6:31 AM) Invalid Interpretation Code [facility] Polychromasia LM Ql (Bld) PRESENT *NA* (09/12/23 6:31 AM) Invalid Interpretation Code [facility] RBC (Bld) [#/Vol] 3.5 E12/L Low 4.3 - 5.9 E12/L [facility] RBC size Nom (Bld) NORMAL *NA* (09/12/23 6:31 AM) Invalid Interpretation Code [facility] WBC corrected for nucl RBC Auto (Bld) [#/Vol] 10.0 E9/L Normal 4.0 - 11.0 E9/L [facility] HEMATOLOGYOrdered By: Newton Conrad on 09-12-2023 Path Review Hypochromic microcytic anemia with anisocytosis rule out iron deficiencyBy Dr. ConradCPT code 85/60 Invalid Interpretation Code [facility] HemeManSS Inpatient Clinical Summaryon 09-12-2023 Inpatient Clinical Summary Inpatient Clinical Summary [address] [address] Clinical Summary Person Information Name: JORDIN TYLER Kristan/[facility] Age: 18 Years : 2005 Sex: Female PCP: NONE, XXXX Marital Status: Single Phone: [phone] Race: White Ethnicity: Non- or Language: Guatemalan Visit Id: Visit Reason: INDUCED Speciality: Acuity: 1 PP Enc Type: Inpatient Med Service: Obstetrics Arrival: 09/10/2023 21:01:27 Discharge: 09/12/2023 18:05:00 Dispo Type: Home (Routine DC) Address: [address] [place] [address] [address] [facility] [id number] Provider Notes: Diagnosis: Anemia affecting , antepartum; Encounter for elective induction of labor; Insufficient care; (normal spontaneous vaginal delivery); with 39 completed weeks gestation Problems Active 37 weeks gestation of Encounter for supervision of normal first , third trimester Very young maternal age, antepartum Shortness of breath in pediatric patient ADHD (attention deficit hyperactivity disorder), combined type Smoking Status: Never Smoker Functional Status: Sensory Deficits: History of Falls: Mobility Assistance Prior to Admission: Independent ADLs: Independent Current Level of Assistance for Self-Care/Mobility: Cognitive Status: Allergies No Known Allergies Laboratory or Other Results This Visit (last charted value for your 09/10/2023 visit) Hematology 09/12/2023 6:31 AM Hypochromasia: PRESENT RBC Morph: NORMAL Basoph Stip: PRESENT Polychromasia: PRESENT Large Plt: PRESENT Microcyte: PRESENT Path Review: Path Review Hct: 23.6 % -- Normal range between ( 34.0 and 46.0 ) HGB: 7.6 gm/dL -- Normal range between ( 12.0 and 16.0 ) RBC: 3.5 E12/L -- Normal range between ( 4.3 and 5.9 ) RDW: 16.6 % -- Normal range between ( 10.9 and 14.2 ) MCH: 21.8 pg -- Normal range between ( 27.0 and 34.0 ) MCHC: 32.3 gm/dL -- Normal range between ( 31.4 and 36.0 ) MCV: 67.6 fL -- Normal range between ( 80.0 and 100.0 ) MPV: 9.2 fL -- Normal range between ( 6.4 and 10.8 ) Platelet: 202.0 E9/L -- Normal range between ( 150.0 and 500.0 ) WBC: 10.0 E9/L -- Normal range between ( 4.0 and 11.0 ) Urinalysis 09/11/2023 2:24 AM UA Bili: Negative mg/dL UA Color: Light-Yellow UA Glucose: Negative mg/dL UA Ketones: Negative mg/dL UA Leuk Est: Negative Jeremias/uL UA Nitrite: Negative mg/dL UA Protein: Negative mg/dL UA Urobilinogen: Negative mg/dL UA Spec Desc: Mendoza UA Blood: Negative mg/dL UA Clarity: Clear UA pH: 7.0 -- Normal range between ( 5.0 and 9.0 ) UA Spec Grav: 1.015 -- Normal range between ( 1.005 and 1.030 ) Blood Bank 09/10/2023 9:43 PM ABO/Rh: A POS ABSC Gel Interp: Negative Measurements: Height: 165.1 cm Weight: 84.5 kg Blood Pressure: 100 mmHg / 51 mmHg BMI: 31 kg/m2 Procedures No Procedures Documented Immunizations No Immunizations Documented This Visit Final Med List: acetaminophen (acetaminophen 325 mg Tab) 3 Tablets By Mouth every 8 hours as needed Headache. Refills: 1. docusate (docusate sodium 100 mg Cap) 1 Capsules By Mouth 2 times a day. Refills: 1. ferrous sulfate (ferrous sulfate 325 mg Tab) 1 Tablets By Mouth twice a day (with meals). Refills: 5. ibuprofen (ibuprofen 600 mg Tab) 1 Tablets By Mouth every 6 hours as needed Other (see comment). Refills: 1. multivitamin, ( Multivitamins with Folic Acid 1 mg Tab) 1 Tablets By Mouth every day. Refills: 0. ondansetron (Zofran ODT 4 mg Tab-Dis) 1 Tablets By Mouth 3 times a day. Refills: 0. Care Team Members: Attending Physician: Magalis Snow DO Consulting Physician: Referring Physician: Follow up: With: Address: When: Magalis Snow [address] [place], [place] [address]Lucas Larsen[address] [address] Business (1) Within 6 weeks Patient Education Information: Care After Vaginal Delivery; Anemia Normal [facility] Inpatient Clinical Summary Inpatient Clinical Summary [address] [address] Clinical Summary Person Information Name: JORDIN TYLER Kristan/[facility] Age: 18 Years : 2005 Sex: Female PCP: NONE, XXXX Marital Status: Single Phone: [phone] Race: White Ethnicity: Non- or Language: Guatemalan Visit Id: Visit Reason: INDUCED Speciality: Acuity: 1 PP Enc Type: Inpatient Med Service: Obstetrics Arrival: 09/10/2023 21:01:27 Discharge: Dispo Type: Address: [address] [place] [address] [address] [facility] [id number] Provider Notes: Diagnosis: Anemia affecting , antepartum; Encounter for elective induction of labor; Insufficient care; (normal spontaneous vaginal delivery); with 39 completed weeks gestation Problems Active (12/20/2022) 37 weeks gestation of Encounter for supervision of normal first , third trimester Very young maternal age, antepartum Shortness of breath in pediatric patient ADHD (attention deficit hyperactivity disorder), combined type Smoking Status: Never Smoker Functional Status: Sensory Deficits: History of Falls: Mobility Assistance Prior to Admission: Independent ADLs: Independent Current Level of Assistance for Self-Care/Mobility: Cognitive Status: Allergies No Known Allergies Laboratory or Other Results This Visit (last charted value for your 09/10/2023 visit) Hematology 09/12/2023 6:31 AM Hypochromasia: PRESENT RBC Morph: NORMAL Basoph Stip: PRESENT Polychromasia: PRESENT Large Plt: PRESENT Microcyte: PRESENT Hct: 23.6 % -- Normal range between ( 34.0 and 46.0 ) HGB: 7.6 gm/dL -- Normal range between ( 12.0 and 16.0 ) RBC: 3.5 E12/L -- Normal range between ( 4.3 and 5.9 ) RDW: 16.6 % -- Normal range between ( 10.9 and 14.2 ) MCH: 21.8 pg -- Normal range between ( 27.0 and 34.0 ) MCHC: 32.3 gm/dL -- Normal range between ( 31.4 and 36.0 ) MCV: 67.6 fL -- Normal range between ( 80.0 and 100.0 ) MPV: 9.2 fL -- Normal range between ( 6.4 and 10.8 ) Platelet: 202.0 E9/L -- Normal range between ( 150.0 and 500.0 ) WBC: 10.0 E9/L -- Normal range between ( 4.0 and 11.0 ) Urinalysis 09/11/2023 2:24 AM UA Bili: Negative mg/dL UA Color: Light-Yellow UA Glucose: Negative mg/dL UA Ketones: Negative mg/dL UA Leuk Est: Negative Jeremais/uL UA Nitrite: Negative mg/dL UA Protein: Negative mg/dL UA Urobilinogen: Negative mg/dL UA Spec Desc: Mendoza UA Blood: Negative mg/dL UA Clarity: Clear UA pH: 7.0 -- Normal range between ( 5.0 and 9.0 ) UA Spec Grav: 1.015 -- Normal range between ( 1.005 and 1.030 ) Blood Bank 09/10/2023 9:43 PM ABO/Rh: A POS ABSC Gel Interp: Negative Measurements: Height: 165.1 cm Weight: 84.5 kg Blood Pressure: 136 mmHg / 78 mmHg BMI: 31 kg/m2 Procedures No Procedures Documented Immunizations No Immunizations Documented This Visit Final Med List: acetaminophen (acetaminophen 325 mg Tab) 3 Tablets By Mouth every 8 hours as needed Headache. Refills: 1. docusate (docusate sodium 100 mg Cap) 1 Capsules By Mouth 2 times a day. Refills: 1. ferrous sulfate (ferrous sulfate 325 mg Tab) 1 Tablets By Mouth twice a day (with meals). Refills: 5. ibuprofen (ibuprofen 600 mg Tab) 1 Tablets By Mouth every 6 hours as needed Other (see comment). Refills: 1. multivitamin, ( Multivitamins with Folic Acid 1 mg Tab) 1 Tablets By Mouth every day. Refills: 0. ondansetron (Zofran ODT 4 mg Tab-Dis) 1 Tablets By Mouth 3 times a day. Refills: 0. Care Team Members: Attending Physician: Magalis Snow DO Consulting Physician: Referring Physician: Follow up: With: Address: When: Magalis Snow [address] [place], [place] [address]Lucas sweeney [place] [phone] Business (1) Within 6 weeks Patient Education Information: Care After Vaginal Delivery; Anemia Normal [facility] Inpatient Patient Summaryon 09-12-2023 Inpatient Patient Summary Inpatient Patient Summary [address] [address] Patient Discharge Instructions PERSON INFORMATION Name: JORDIN TYLER Date of : 2005 Current Date: 09/12/2023 18:21:59 PHYSICIANS Admitting Physician: Magalis Snow DO Primary Care Physician: NONE, XXXX PCP Phone Number: Comment: Discharge Diagnosis: Anemia affecting , antepartum; Encounter for elective induction of labor; Insufficient care; (normal spontaneous vaginal delivery); with 39 completed weeks gestation Condition at Discharge: Stable JORDIN TYLER has been given the following list of follow-up instructions, prescriptions, and patient education materials: PATIENT FOLLOW-UP INFORMATION Diet: Regular Activity: Activity as tolerated Wound Care Instructions: Remove Your Dressing IN: Days Call Your Doctor For: Persistent or heavy bleeding, Temperature above 101.5 degrees, Persistent vomiting IF UNABLE TO CONTACT YOUR PHYSICIAN AND YOU FEEL IT IS AN EMERGENCY, GO TO THE NEAREST EMERGENCY ROOM OR CALL 911 Home Treatment: Devices/Equipment: Special Services: Additional Instructions: Physician to provide the following pending test results: None Follow up: With: Address: When: Lucas Wetzel, [facility] [address] [place] [address] Business (1) Within 6 weeks In the event that this physician does not participate in your insurance network, please consult with your insurance company to find a nearby participating provider. Comment: JAYSON Suárez SHIANNE A, have received the attached patient education materials/instructi ons and have verbalized understanding. Patient Signature Date Clinican/Nurse Signature Date MEDICATION LIST New Medications [facility] 1987, [address] [place], [place] [id number], [phone] acetaminophen (acetaminophen 325 mg Tab) 3 Tablets By Mouth every 8 hours as needed Headache. Refills: 1. Last Dose: Next Dose: docusate (docusate sodium 100 mg Cap) 1 Capsules By Mouth 2 times a day. Refills: 1. Last Dose: Next Dose: ferrous sulfate (ferrous sulfate 325 mg Tab) 1 Tablets By Mouth twice a day (with meals). Refills: 5. Last Dose: Next Dose: ibuprofen (ibuprofen 600 mg Tab) 1 Tablets By Mouth every 6 hours as needed Other (see comment). Refills: 1. Last Dose: Next Dose: Medications to Continue with No Changes Other Medications multivitamin, ( Multivitamins with Folic Acid 1 mg Tab) 1 Tablets By Mouth every day. Refills: 0. Last Dose: Next Dose: ondansetron (Zofran ODT 4 mg Tab-Dis) 1 Tablets By Mouth 3 times a day. Refills: 0. Last Dose: Next Dose: Pharmacy Information: [facility] PATIENT EDUCATION INFORMATION Instructions: Care After Vaginal Delivery The following information offers guidance about how to care for yourself from the time you deliver your baby to 6?12 weeks after delivery ( period). If you have problems or questions, contact your health care provider for more specific instructions. Follow these instructions at home: Vaginal bleeding ? It is normal to have vaginal bleeding (lochia) after delivery. Wear a sanitary pad for bleeding and discharge. ? During the first week after delivery, the amount and appearance of lochia is often similar to a menstrual period. ? Over the next few weeks, it will gradually decrease to a dry, yellow-brown discharge. ? For most women, lochia stops completely by 4?6 weeks after delivery, but it can vary. ? Change your sanitary pads frequently. Watch for any changes in your flow, such as: ? A sudden increase. ? A change in color. ? Large blood clots. If you pass a blood clot from your vagina, save it and call your health care provider. Do not flush blood clots down the toilet before talking with your health care provider. ? Do not use tampons or douches until your health care provider approves. ? If you are not , your period should return 6?8 weeks after delivery. If you are feeding your baby breast milk only, your period may not return until you stop . Perineal care ? Keep the area between the vagina and the anus (perineum) clean and dry. Use medicated pads and pain-relieving sprays or creams as told. ? If you had a tear or a surgical cut in the perineum (episiotomy), check the area for signs of infection until you are healed. Check for: ? More redness, swelling, (more content not included)... Normal [facility] Inpatient Patient Summary Inpatient Patient Summary [address] [address] Patient Discharge Instructions PERSON INFORMATION Name: JORDIN TYLER Date of : 2005 Current Date: 09/12/2023 08:48:13 PHYSICIANS Admitting Physician: Magalis Snow DO Primary Care Physician: FABIANO, XXXX PCP Phone Number: Comment: Discharge Diagnosis: Anemia affecting , antepartum; Encounter for elective induction of labor; Insufficient care; (normal spontaneous vaginal delivery); with 39 completed weeks gestation Condition at Discharge: Stable JORDIN TYLER has been given the following list of follow-up instructions, prescriptions, and patient education materials: PATIENT FOLLOW-UP INFORMATION Diet: Regular Activity: Activity as tolerated Wound Care Instructions: Remove Your Dressing IN: Days Call Your Doctor For: Persistent or heavy bleeding, Temperature above 101.5 degrees, Persistent vomiting IF UNABLE TO CONTACT YOUR PHYSICIAN AND YOU FEEL IT IS AN EMERGENCY, GO TO THE NEAREST EMERGENCY ROOM OR CALL 911 Home Treatment: Devices/Equipment: Special Services: Additional Instructions: Physician to provide the following pending test results: None Follow up: With: Address: When: Lucas Wetzel, [place] [phone] Business (1) Within 6 weeks In the event that this physician does not participate in your insurance network, please consult with your insurance company to find a nearby participating provider. Comment: JAYSON Suárez SHIANNE A, have received the attached patient education materials/instructi ons and have verbalized understanding. Patient Signature Date Clinican/Nurse Signature Date MEDICATION LIST New Medications [facility] 1987, [address] [place], [place] [id number], [phone] acetaminophen (acetaminophen 325 mg Tab) 3 Tablets By Mouth every 8 hours as needed Headache. Refills: 1. Last Dose: Next Dose: docusate (docusate sodium 100 mg Cap) 1 Capsules By Mouth 2 times a day. Refills: 1. Last Dose: Next Dose: ferrous sulfate (ferrous sulfate 325 mg Tab) 1 Tablets By Mouth twice a day (with meals). Refills: 5. Last Dose: Next Dose: ibuprofen (ibuprofen 600 mg Tab) 1 Tablets By Mouth every 6 hours as needed Other (see comment). Refills: 1. Last Dose: Next Dose: Medications to Continue with No Changes Other Medications multivitamin, ( Multivitamins with Folic Acid 1 mg Tab) 1 Tablets By Mouth every day. Refills: 0. Last Dose: Next Dose: ondansetron (Zofran ODT 4 mg Tab-Dis) 1 Tablets By Mouth 3 times a day. Refills: 0. Last Dose: Next Dose: Pharmacy Information: [facility] PATIENT EDUCATION INFORMATION Instructions: Care After Vaginal Delivery The following information offers guidance about how to care for yourself from the time you deliver your baby to 6?12 weeks after delivery ( period). If you have problems or questions, contact your health care provider for more specific instructions. Follow these instructions at home: Vaginal bleeding ? It is normal to have vaginal bleeding (lochia) after delivery. Wear a sanitary pad for bleeding and discharge. ? During the first week after delivery, the amount and appearance of lochia is often similar to a menstrual period. ? Over the next few weeks, it will gradually decrease to a dry, yellow-brown discharge. ? For most women, lochia stops completely by 4?6 weeks after delivery, but it can vary. ? Change your sanitary pads frequently. Watch for any changes in your flow, such as: ? A sudden increase. ? A change in color. ? Large blood clots. If you pass a blood clot from your vagina, save it and call your health care provider. Do not flush blood clots down the toilet before talking with your health care provider. ? Do not use tampons or douches until your health care provider approves. ? If you are not , your period should return 6?8 weeks after delivery. If you are feeding your baby breast milk only, your period may not return until you stop . Perineal care ? Keep the area between the vagina and the anus (perineum) clean and dry. Use medicated pads and pain-relieving sprays or creams as told. ? If you had a tear or a surgical cut in the perineum (episiotomy), check the area for signs of infection until you are healed. Check for: ? More redness, swelling, (more content not included)... Normal [facility] Path. Reviewon 09-12-2023 Path Review Hypochromic microcytic anemia with anisocytosis rule out iron deficiency Invalid Interpretation Code [facility] Comment on above: Performed By: #### 1 [id number] #### [facility] [address] [place] [address] Surgical Pathology Reporton 09-12-2023 Surgical Pathology Report [facility] [address] [facility] [place] [address]- Surgical Pathology Report Collected Date/Time: 09/11/2023 05:58 EDT Pathologist: Newton Conrad MD Received Date/Time: 09/11/2023 10:48 EDT Magalis Snow DO, DO, Mona J. 07 Surgical Pathology Report - 09/12/2023 14:06 EDT - Auth (Verified) Final Diagnosis Third trimester placenta with no pathologic diagnosis (Electronic Signature) Newton Conrad MD 09/12/2023 14:06 Clinical Information Pre-Op Diagnosis: Labor and Delivery Procedure: Vaginal Delivery Post-Op Diagnosis: Labor and Delivery Gestational Age (Weeks): 39 Gestational Age (Days): 5 Specimen(s) Received Placenta Gross Description Received fresh labeled with patient name, number, and placenta is a slightly torn but intact placenta with attached membranes and umbilical cord. The membranes have a circummarginate insertion and are ruptured approximately 4 cm from the margin. The membranes are pink and opaque. Umbilical cord is centrically inserted 6.5 cm from the margin. It is 62 cm long and up to 1 cm in diameter. Cord cross-section contains three blood vessels. Placenta disc is ovoid measuring 19.5 x 17 x 2.5 cm and weighs 567 g without membranes and umbilical cord. Cross-sectioning through the placenta disc contains light red spongy granular tissue, and a mild amount of calcifications is scattered throughout the entire placental tissue. [employer] portion is submitted in four cassettes: 1 - Cord and membrane 2-4 - Electric Ship[employer] sections of placenta parenchyma (DC) DC:MCA Microscopic Description Microscopic examination performed unless gross only specified. Normal [facility] Comment on above: Performed By: #### [id number] #### [facility] [address] [place] [address] Delivery Summaryon Delivery Summary Delivery Summary Delivery Normal spontaneous vaginal delivery Disposition To room in stable condition History/Labor Course Patient is a 18-year-old -0-0-2 at 39 weeks and 5 days admitted to labor and delivery on 09/10/2023 for scheduled elective induction of labor. Current has been complicated with insufficient care and anemia in . GBS negative status. At presentation patient was noted to be 2 to 3 cm dilated, 50% effaced -3 station and category 1 heart tone. Patient received 1 dose of 50 mcg misoprostol orally and progressed to 5 cm cervical dilation, 70% effaced and -2 station. Artificial amniotomy was performed with clear amniotic fluid. Epidural anesthesia was initiated for pain management. Labor process then continue with expectant management. Patient then progressed to complete cervical dilation with category 1 heart tone. Patient was coached to push and delivered a viable female infant in OA position with loose nuchal cord x 1 which was reduced at the perineum without difficulty. was weighing 6 pounds 14 ounces, 3124 g with Apgars of 9 and 9 at 1 and 5 minutes after delivery, respectively over intact perineum. 3 vessels umbilical cord and intact placenta was delivered spontaneously. EBL 350 mL. Patient and infant was recovering in a stable condition Delivery Documentation Additional Delivery Information Presenting [facility](Recorded : 09/11/2023 04:43 EDT) [facility]ing [facility](Recorded : 09/11/2023 04:22 EDT) [facility]ing [facility](Recorded : 09/11/2023 03:19 EDT) [facility]ing [facility](Recorded : 09/11/2023 02:17 EDT) [facility]ing [facility](Recorded : 09/11/2023 00:54 EDT) [facility]ing [facility](Recorded : 09/10/2023 21:18 EDT) Anesthesia Type OBEpidural Labor Information Baby A Labor Onset Methods:Induced Induction Methods:Artificial rupture of membranes, Cytotec Complete Cervical Dilation Date/Time09/11/2023 04:54 EDT OB History History (0,0,0,2) # 1 Baby 1 Outcome Date: 06/07/2021 Outcome or Result: Vaginal Gest Age: 39 weeks 5 days Outcome: Live Sex: Female Wt: 3572 g Complications: ncX1 Complications: None Martín Labor: 15 hr 47 min # 2 Baby 1 Outcome Date: 08/08/2022 Outcome or Result: Vaginal Gest Age: 37 weeks 4 days Outcome: Live Sex: Female Wt: 2751 g Complications: 37.4 WEEKS GESTATION, MATERNAL CHLAMYDIA Complications: None Martín Labor: 17 hr 47 min Membrane Status Information Baby A ROM Date, Time:09/11/2023 00:55 EDT Membrane Status:Ruptured Amniotic Fluid Color/Description:C lear Medications Given D5LR 1000 mL Soln-IV 1,000 mL, 1000 mL, IV Epidural Bag Ropivacaine Fentanyl 200 mL, 200 mL, Epidural Lactated Ringers IV Chelo 1000 mL 1,000 mL, 1000 mL, IV oxytocin additive 30 unit(s) + Dextrose 5% in Lactated Ringers Premix 500 mL, IV Betadine Topical Solution 10%, 1 maryjo, Topical epinephrine-lidocai ne 1:200,000-1.5% preservative-free injectable solution, 150 mg, Epidural fentanyl 50 mcg/mL injectable solution, 100 mcg, Epidural [id number] [F], 50 mcg, Oral ropivacaine 0.2% injectable solution 10 mL, 18 mg, Epidural Normal [facility] Comment on above: Result Comment: Elec tronically Signed By: Magalis Snow DO.br\Date and Time Signed: 09/11/23 05:43 EDT URINALYSISOrdered By: SYSTEM SYSTEM on 09-11-2023 Bilirubin Ql (U) Negative Normal Negativemg/ d L [facility]A Auto SS Clarity (U) Clear (09/11/23 2:24 AM) Normal Clear [facility] UA Auto SS Color (U) Light-Yellow 1 (09/11/23 2:24 AM) Normal Yellow [facility] UA Auto SS Comment on above: Interpretive Data: M icroscopic readings are only performed on those samples that meet specific criteria set forth by [facility]. Glucose Ql (U) Negative Normal Negativemg/d L [facility] UA Auto SS Hemoglobin Auto test strip (U) [Mass/Vol] Negative Normal Negativemg/d L [facility] Auto SS Ketones Auto test strip Ql (U) Negative Normal Negativemg/d L [facility] UA Auto SS Leukocyte esterase Auto test strip Ql (U) Negative Normal NegativeLeu/ uL [facility] UA Auto SS Nitrite Auto test strip Ql (U) Negative Normal Negativemg/d L [facility] UA Auto SS pH (U) 7.0 *NA* (09/11/23 2:24 AM) Invalid Interpretation Code 5.0 - 9.0 [facility] Auto SS Protein Ql (U) Negative Normal Negativemg/d L [facility] UA Auto SS Specific gravity (U) [Rel density] 1.015 *NA* (09/11/23 2:24 AM) Invalid Interpretation Code 1.005 - 1.030 [facility] Auto SS Urobilinogen (U) [Mass/Vol] Negative Normal Negativemg/d L [facility] Auto SS URINALYSISOrdered By: Austin Cabrera on 09-11-2023 UA Spec Desc Mendoza (09/11/23 2:24 AM) Normal [facility] UA Auto SS ABO/Rhon 09-10-2023 ABO/Rh Positive Invalid Interpretation Code [facility] Comment on above: Performed By: #### 2 [id number] #### [facility] [address] [place] [address] ABO/Rh History Checkon 09-09 ABO/Rh History Check Verified Hx Blood Type Normal [facility] Comment on above: Performed By: #### 1 [id number] #### [facility] [address] [place] [address] ABSCon 09-10-2023 ABSC Gel Interp Negative Normal [facility] Comment on above: Performed By: #### 1 [id number] #### [facility] [address] [place] [address] BLOOD BANKOrdered By: Austin Cabrera on 09-10-2023 ABO/Rh Interp Positive Invalid Interpretation Code [facility] BB Subsection ABSC Gel Interp Negative (09/10/23 9:43 PM) Normal [facility] BB Subsection Blood Bank ID#on 09-10-2023 BBID# [id number] Invalid Interpretation Code [facility] Comment on above: Performed By: #### 1 [id number] #### [facility] [address] [place] [address] CBC w/Indiceson 09-10-2023 Erythrocyte distribution width (RBC) [Ratio] 17.0 % High 10.9-14.2 [facility] Comment on above: Performed By: #### 2 [id number] #### [facility] [address] [place] [address] Hematocrit (Bld) [Volume fraction] 24.1 % Low 34.0-46.0 [facility] Comment on above: Performed By: #### 2 [id number] #### [facility] [address] [place] [address] Hemoglobin (Bld) [Mass/Vol] 7.7 g/dL Low 12.0-16.0 [facility] Comment on above: Performed By: #### 2 [id number] #### [facility] [address] [place] [address] Hypochromia Auto Ql (Bld) PRESENT Invalid Interpretation Code [facility] Comment on above: Performed By: #### 2 [id number] #### [facility] [address] [place] [address] MCH (RBC) [Entitic mass] 21.4 pg Low 27.0-34.0 [facility] Comment on above: Performed By: #### 2 [id number] #### [facility] [address] [place] [address] MCHC (RBC) [Mass/Vol] 31.8 g/dL Normal 31.4-36.0 [facility] Comment on above: Performed By: #### 2 [id number] #### [facility] [address] [place] [address] MCV (RBC) [Entitic vol] 67.4 fL Low 80.0-100.0 [facility] Comment on above: Performed By: #### 2 [id number] #### [facility] [address] [place] [address] Microcytes Ql (Bld) PRESENT Invalid Interpretation Code [facility] Comment on above: Performed By: #### 2 [id number] #### [facility] [address] [place] [address] Platelet mean volume (Bld) [Entitic vol] 8.8 fL Normal 6.4-10.8 [facility] Comment on above: Performed By: #### 2 [id number] #### [facility] [address] [place] [address] Platelets (Bld) [#/Vol] 209.0 E9/L Normal 150.0-500.0 [facility] Comment on above: Performed By: #### 2 [id number] #### [facility] [address] [place] [address] RBC (Bld) [#/Vol] 3.6 E12/L Low 4.3-5.9 [facility] Comment on above: Performed By: #### 2 [id number] #### [facility] [address] [place] [address] WBC corrected for nucl RBC Auto (Bld) [#/Vol] 8.9 E9/L Normal 4.0-11.0 [facility] Comment on above: Performed By: #### 2 [id number] #### [facility] [address] [place] [address] RBC size Nom (Bld) NORMAL Invalid Interpretation Code [facility] Comment on above: Performed By: #### 2 [id number] #### [facility] [address] [place] [address] HEMATOLOGYOrdered By: SYSTEM SYSTEM on 09-10-2023 Erythrocyte distribution width (RBC) [Ratio] 17.0 % High 10.9 - 14.2 % Remisol Heme Hematocrit (Bld) [Volume fraction] 24.1 % Low 34.0 - 46.0 % Remisol Heme Hemoglobin (Bld) [Mass/Vol] 7.7 g/dL Low 12.0 - 16.0 gm/dL Remisol Heme Hypochromia Auto Ql (Bld) PRESENT *NA* (09/10/23 9:43 PM) Invalid Interpretation Code Remisol Heme MCH (RBC) [Entitic mass] 21.4 pg Low 27. 0 - 34.0 pg Remisol Heme MCHC (RBC) [Mass/Vol] 31.8 g/dL Normal 31.4 - 36.0 gm/dL Remisol Heme MCV (RBC) [Entitic vol] 67.4 fL Low 80.0 - 100.0 fL Remisol Heme Microcytes Ql (Bld) PRESENT *NA* (09/10/23 9:43 PM) Invalid Interpretation Code Remisol Heme Platelet mean volume (Bld) [Entitic vol] 8.8 fL Normal 6.4 - 10.8 fL Remisol Heme Platelets (Bld) [#/Vol] 209.0 E9/L Normal 150. 0 - 500.0 E9/L Remisol Heme RBC (Bld) [#/Vol] 3.6 E12/L Low 4.3 - 5.9 E12/L Remisol Heme RBC size Nom (Bld) NORMAL *NA* (09/10/23 9:43 PM) Invalid Interpretation Code Remisol Heme WBC corrected for nucl RBC Auto (Bld) [#/Vol] 8.9 E9/L Normal 4.0 - 11.0 E9/L Remisol Heme Group B Strep by PCRon 09-06 Group B Strep colonization by PCR Negative Normal Negative [facility] Comment on above: Performed By: #### [id number] #### [facility] [address] [place] [address] C Urineon 08-31-2023 Bacteria identified Cx Nom (U) Microbiology PROCEDURE: Urine Culture [R1] SOURCE: U CleanCatch BODY SITE: COLLECTED DATE/TIME: 08/29/2023 14:55 EDT RECEIVED DATE/TIME: 08/29/2023 16:13 EDT START DATE/TIME: 08/29/2023 16:13 EDT FREE TEXT SOURCE: Magalis Snow DO, DO, Mona J. FINAL REPORTS Final Report [] Verified Date/Time: 08/31/2023 10:56 EDT 2,000 cfu/ml Mixed skin contaminants Performing Locations R1: This test was performed at: [facility], [address] [place] [address], [id number] , [place], Normal [facility] Comment on above: Performed By: #### 2 [id number] #### [facility] [address] [place] [address] URINALYSISOrdered By: SYSTEM SYSTEM on 08-29-2023 Bilirubin Ql (U) Negative Normal Negativemg/ d L [facility] UA Auto SS Clarity (U) Turbid *ABN* (08/29/23 2:55 PM) Invalid Interpretation Code Clear [facility] UA Auto SS Color (U) Yellow 1 (08/29/23 2:55 PM) Normal Yellow [facility] UA Auto SS Comment on above: Interpretive Data: M icroscopic readings are only performed on those samples that meet specific criteria set forth by [facility]. Epithelial cells.squamous Auto (Urine sed) [#/Area] >10 graded/HPF Invalid Interpretation Code [facility] UA Auto SS Glucose Ql (U) Negative Normal Negativemg/d L [facility] UA Auto SS Hemoglobin Auto test strip (U) [Mass/Vol] Negative Normal Negativemg/d L [facility] UA Auto SS Ketones Auto test strip Ql (U) Negative Normal Negativemg/d L [facility] UA Auto SS Leukocyte esterase Auto test strip Ql (U) 500 Jeremias/uL Jeremias/uL Invalid Interpretation Code NegativeLeu/ uL [facility] UA Auto SS Mucus Auto Ql (U) Trace graded/LPF Normal Negati vegrad ed/LPF [facility] UA Auto SS Nitrite Auto test strip Ql (U) Negative Normal Negativemg/d L [facility] UA Auto SS pH (U) 7.0 *NA* (08/29/23 2:55 PM) Invalid Interpretation Code 5.0 - 9.0 [facility] UA Auto SS Protein Ql (U) 1+ mg/dL Invalid Interpretation Code Negativemg/d L [facility] UA Auto SS RBC Ql (U) 0-3 graded/HPF Normal 0-3graded/HP F [facility] UA Auto SS Specific gravity (U) [Rel density] 1.028 *NA* (08/29/23 2:55 PM) Invalid Interpretation Code 1.005 - 1.030 [facility] UA Auto SS Urobilinogen (U) [Mass/Vol] 2 mg/dL Invalid Interpretation Code Negativemg/d L [facility] UA Auto SS WBC Auto (Urine sed) [#/Area] 16-25 graded/HPF Invalid Interpretation Code 0-5graded/HP F [facility] UA Auto SS URINALYSISOrdered By: Theres a Elmo on 08-29-2023 UA Spec Desc Clean Catch (08/29/23 2:55 PM) Normal [facility] UA Auto SS Coding Summary.on 07-25-2023 Coding Summary. KSOULsac68VIy4hBc+P GhlYWQ+NT1CNALtF25j tGPoqK5uG1URAMyXWfy gQVBQTElOSyIgbmFtZT 1kaXNjZXJu IC8+ZK0kONJfCheviOV yn5C6qCX8O72vlc9rUN kltMK3CQTsRgRzloskz 1fyuYy7ENqdLreiZuIx ZAFqxA12NIT9mT17Ie6 7yBBtnAJfb0snoAa8Ms DqQAByIQJ8hOvpGJbew 0IbWGUeZ02qgVBjp1E8 IGNvbGxhcHNlOyBlbXB 9iV5fQVgjlvkwc4kyls vgRbw4kq58zAJdw9R8u KU4B6HimrP8BJVqkUXf ClyznPUNfN0kvweoz7g gwajuHfLhRYIuYKo6SW m7HCLgzLlmXcRpFG18L DW0BITkdzZoV2NaFPIn lRiqCkA5m4C4Sj2MX7K NNwytL3QSWAAENUyraU Q+MO18nk38E1GmDzubG dn1WPIbULX6aNB4pM3k MGBfMPwza7N9lMM8R1M tkvBiby4ej6kwHCBcBV emZ73juKCky3R3PZBzc QX8RSMgbBafImGdsH23 Oyc+WCOyeHdmp5TsWil gr8baq3mrwNp4TypwIP FpnvZswBdvBSP6f1ZoR q5qVYEcxUL0mQE7zE0a UhHnUxO6NXueC677NtM mkAKcRrfxY57dE3HewZ A+RHQtPnm2IPCinWgqU H5hK4ZbOXEfheymxQGj hZhkFZ2zCQEglwgbEWA mqM0wNXQaN8h3KvSuUi K8WMjuC9BbDTVbovwdM l30yZ9mCyKhKuB9OOqn D3WmfdB0UXVjdCMdOEt kKLF2A62qi2V9IIGjBX MbOIL5aOD8rD1rkIxhw jogbGVmdDsgdmVydGlj YMvmOFgjA321QPGihYr nPkNvZGluZyBEYXRlOi AgMDYvMTkvMjAyNDwvd GQ+LQBdFIO1pHrlVCYl tNXnBTnfQu7ymYtmyAz iVM7kFRGokyrtWLYeeR 3jDTPvuRDhqRtsIY0eP AFnhvnbw928RoZuJCZ3 RPKwyXHrM9WupN9fPwT yMSBvKGQjI2HaqPRaEB olR618DEtkJoP8GYKro oFiG4NdASLsoNwhIlN5 c7C3Jw8Qd8QymkthO6U phHQlJbIxTfxqGYi6P9 RkPjwvdHI+IM80ZLVhD Y68ZWh6RHD4bWjyZEoh DKNrL6DgkZ2vNhFfIIT kZGRkOyc+PHRhYmxlIH dpZHRoPScxMDAlJyBzd ZmoWU6cZg9cAEDoQLSe bVgzlMWzLpRyp7biHQK fVBpcSV2iwPafV4OymC O7TSAhl5m8Ee05V81sX 3JvdXA+AIVqiAC3eUP5 uS4iQqRzCsA8ZZepR59 6SbPpaGZkMsfkv3lik2 xgiMb3FtI6DSUhujDez AbsQOQ7w2ZdKw15V91m IHdpZHRoPSIxNSUiIHZ erIqhkv5cnF3sFd7+PG FtvTA8bLM9gD4lFrPmU nF4CXunW347JoNebVHo Xyrpj9iwz0bbaJw7XlI mYYCvngZgwYtmIVA0j6 IyKm86A0CzrRkui6PnJ ma7bz31eVYvm1Y1oYM4 H0QkWVYnunmciFYwtIb yJO8iDQWmcmyfSQKvbJ 8sDQDnH1z9LfPjQqQ5H CaqL9XblwS8BYIweLQa PTDsqXOIpI4oubxwg3y llxivIfDgHQHtIWp0HM c3PBSocFsaUcImNCL8M yR3GUM8sMGopD3prMlt ldyxvT0sOzj+AQQ9hRI rrIAZCE9bCwtvgSF+PH PpKSI5lTmdCZtcQFAel H2zRLMaU2u9IfZkPgP7 POqoK2CbpwX2KVBjtRL yUUYujBBRwJ0mwcjyq5 amyqshWjUkSQBfGPg7W Vf9JXMkyOylDdAqAYH3 WmA3RYY8lTQexD7upBr iculreQ1aYlf+QmlydG tlRFW5FWo1X1EuAim3Q PDepLmjFI6mdSCmGEyj Sb5lfPwseBbvKW8tYJS fgbztw555AwMsg9xzWJ NgoUAhMIidRPV3P29iy 9S5YQVwAGZzDTN2nMV5 aM5xnIhmdvhdqIUiqPo gdmVydGljYWwtYWxpZ2 96KXShyEnqFkTkVBu7P 8PpWnj7XRMudDacTY8w tDNzYPsrDr2hiRqtsAk bBQ8qAXFpxahmx896Ai Lmf9aiEITleOUxKSusH II7O62sd9O3XBZnPUGu ALD8nTA2kV6lxMrngtr gbGVmdDsgdmVydGljYW yoWMdpL422NDQufWfmR qTagOg4R6HcSaq8NRHb lPgzDZ7jzNGoAKbmIr7 chYsktVwkJU3xPRIagj eye315MxHih2yoZMFeg SCnIXvpELE0C53xm6W9 EDCzNEDlATT7xYY8eS9 hbGlnbjogbGVmdDsgdm MdkPmjQByfOJjmN271A HRvcDsnPlBhdGllbnQg WQrvKDu7K9FoQyanyND +AU25NHEdIY81vKMsxK Veh6uivVp6EgEbIOSyR XK4vCcaFVtdn6LiDUKt O20peIOwq1F9IBVjsUo lkWTwFnCquPT2pR7mWB nhrfcar3hnlifiBrpvk 8bpvx71tO98S35zNAby ZHRoPSIzMCUiIHZhbGl qtw0atS9hSi9+PGNvbC O9kDN2gU9fSIEeIiG9I OlwR369YjDmwWOpEuqd p3bfj6vtoOj9SzT7RKH pmgLvcMijUXJ1j0WfKs 78Y30rNElaMZTeVQNsQ ZJcANEjzBkbfz4vxW5t Ii8+GRGnoGJ7qOV6aW5 qGnHpPhI9JLazQ776Ug DldGYfPgnaF99hO8Vgz XA+NRYzRph8XBInkXix HF4jzNVuCMwgEo6rAKC 3SvKyRuXsXZzvF0EjHN ZtulicznedjOW9VSZhO JVmgG89Kq2oiFkvKKOn kZWYgK0iliday8qjfcq oBhFiBFFlIIf2UFl4XG ChcFsmYjXaMCZ5RnB2E CN5uZGbqM9xjUlppnbe dI1vO0RmWHOqswbtSn9 0iZ9dHjViWxA1TGxdNg c+D7qSAuGHBIVKDSsXK c1JWKG3Y0OrGfj7TIJb vInlEM1vaAPwDSakZy4 ptBifoHluRI9eXIWfor goIHEalE8bYARxbGPwi GywNX6lAKYsgkrsi016 ZlGrKIY7FEQloLTcM4T vhX2pVfZcQJOpUSTlN8 UenPHuXMlhL392JMdbU tB3VHFmzyIfJ6AyVFYl tXsrStX7r0G1Hp3bUj4 tQv5pQGG1LT72WU46tB Vad7B3aEB1G0NdSBCma ezeryxsmRW0JGTpHMCm rZ78hMVuQQttUy4oa9R 5z232XWClRJGhqM22Ej 2nhKieUPNzhNHYkP3pj wzzr5nrjdlgUoNwWWIv SNi0HXm3NYOabXivZyI xSSX0ScJ7YWD2jLUpgA 9abRrofbknaH4pNcz+M XgaAGGvhuU4A3AlFml2 RPBjrHjwGM1bxPQjNFg wFk1mfTrrxWoaGJ8yDJ HpeoqzKFSoeO4rVLTlg DVgyKzlBC6bMCYppcjg b475JaEbBTK3LPAubFC nS6EquV5xOxPvQECyYL RvM6CcbSEyKHmzR844W XobGqT2LANlfaNyR5Gk SWNknYdpGnB4f0F9Jl4 HAQ4xhPG7T5ItSxb1EN CnmKnjXZ0ipLMwMXxxE f5kvSmnvEwaMF9tWPNh qvnaOPKdvH9nFMAvjSR unBjyBG3rKJYxgswnk2 99VfVlYGX5SDWzvBDgY 2BiiJ8jDyUnOZCoDCKf D0EiqVUjUMskQ697EIi xRvU9EQDsbdYjR2PlCH LcvDmwQiY4p0M7Sl5MC mLKwrykV9Y2E8WqEcmt dHI+VM95IRLqEH72fZG mgIShy5vzaDg1QmIxRJ KnOAU1nRjoIAhbl1KpE RPhG57roGQeu1M6MDIq aEcbwKSoDlAsuWH1xY7 oRFwvbsjsz5umjzgwRn tzl1aiwu87fT07U33iC HdpZHRoPSIzMCUiIHZh cQzazl4qcS5pWx9+PGN akLM9vJZ4eE3xWhXjKf M6LMoqA966WeCbsMKyT hjcn1wqk2qvlSa5ZhKr MHYzadFyrGmoKQU5z0L iBz45E04jGFvtCLZlBT FtOYYqDMVenCvpac0as G9wIi8+OQ7bb8rqaz67 eO97wUM+ZXCmEPE9cVq pBAlfZYCrrH7nCAtuOg G8NKUqYlEqyY11xVGjQ EvnJk3ecOggoSqoDP6o QLSxcahla383CpSzq0j tKFDzzLPhUCskXHS7U0 6pw6T1UTUaSCTsOST4y OA6cT2flWnmyqffkBUw dDsgdmVydGljYWwtYWx lD032QERpsIleJzRriQ NeQ2gesfBUXG8uOqqtq GQ+MSXrKYD4bOduUJkq BORqiP7bNIRhH2h8XoF uGiU5GQtcC1XeayN8YQ SqaNNgYIJdhTACbZ2fu tmrg2ndrhgbJbNfBHKh VBn3WRv9OJFlnQexYdQ hREC2VzG7GXF2yFHvvR 3nhGzcbhbfpN5hQcr+R klOOjwvdGQ+PHRkIHN0 nFkmFCxaGYFgmP3cIXB sB9k6PfRbYmF8EXtgL0 PprjD1UPGksNRfIJDne ADXxZ0ykthqb3nccxft QnRtXUGfNPf9NHc7RVR sqWjbHuAwEOQ0MvA0ZZ O7mKCbuR0pzNtqberpk G9wOyc+TVJOOjwvdGQ+ SQBzSCM1iHxxQDdzFKY wnB1oHKRmA9a8TqQpRw J0VKkaP7IunaK3PUCpk HQpRVNbpUWIxE4vecdf w7wbgaanJhAsOMBwBFo 4GMq5SIXfkVljPmHcWW S8UdN4ONJ2wJVciM0dc EhczwmohX1aLeq+UGF5 MJD7FK50DC42R1LeAwj vdGFibGU+PHRhYmxlIH dpZHRoPScxMDAlJyBzd AlbVX3eNj6jNMJsPKUe bGxhcHNlOiBjb (more content not included)... [facility] C Urineon 07-21-2023 Bacteria identified Cx Nom (U) Microbiology PROCEDURE: Urine Culture [R1] SOURCE: U CleanCatch BODY SITE: COLLECTED DATE/TIME: 07/19/2023 06:34 EDT RECEIVED DATE/TIME: 07/19/2023 14:45 EDT START DATE/TIME: 07/19/2023 14:45 EDT FREE TEXT SOURCE: Magalis Snow DO, DO, Mona J. FINAL REPORTS Final Report [] Verified Date/Time: 07/21/2023 08:59 EDT 4,000 cfu/ml Mixed skin contaminants Performing Locations R1: [facility] at: [facility], [address] [place] [address], [address] , , [facility] Comment on above: Performed By: #### 2 [id number] #### [facility] [address] [place] [address] Nursing Assessmenton 024 Nursing Assessment [id number]#[id number] [facility] Consent for Treatmenton 07-06 Consent for Treatment [id number]#[id number] Normal [facility] Discharge Instructionson Discharge Instructions [id number]#1.00TIFF Normal [facility] Inpatient Clinical Summaryon 07-19-2023 Inpatient Clinical Summary [address] [address] Clinical Summary Person Information Name: JORDIN TYLER Kristan/[facility] Age: 18 Years : 2005 Sex: Female PCP: MARK STONE Marital Status: Single Phone: [phone] Race: White Ethnicity: Non- or Language: Guatemalan Visit Id: Visit Reason: ABD PAIN Speciality: Acuity: Obs Enc Type: OB Triage Med Service: Obstetrics Arrival: 07/19/2023 06:03:39 Discharge: 07/19/2023 07:45:00 Dispo Type: Home (Routine DC) Address: [address] [place] [address] [address] [facility] [id number] Provider Notes: Diagnosis: Problems Active (12/20/2022) 37 weeks gestation of Encounter for supervision of normal first , third trimester Very young maternal age, antepartum Shortness of breath in pediatric patient ADHD (attention deficit hyperactivity disorder), combined type Smoking Status: Never Smoker Functional Status: Sensory Deficits: History of Falls: Mobility Assistance Prior to Admission: ADLs: Current Level of Assistance for Self-Care/Mobility: Cognitive Status: Allergies No Known Medication Allergies No Known Allergies Laboratory or Other Results This Visit (last charted value for your 07/19/2023 visit) Urinalysis 07/19/2023 6:34 AM UA Bili: Negative mg/dL UA Color: Light-Yellow UA Glucose: Negative mg/dL UA Ketones: Negative mg/dL UA Leuk Est: 250 Jeremias/uL Jeremias/uL UA Mucous: Trace graded/LPF UA Nitrite: Negative mg/dL UA Protein: Negative mg/dL UA RBC: 0-3 graded/HPF UA Squam Epithelial: 5-8 graded/HPF UA Urobilinogen: Negative mg/dL UA WBC: 0-5 graded/HPF UA Spec Desc: Clean Catch UA Blood: Negative mg/dL UA Clarity: Clear UA pH: 6.5 -- Normal range between ( 5.0 and 9.0 ) UA Spec Grav: 1.019 -- Normal range between ( 1.005 and 1.030 ) Measurements: Height: 165.1 cm Weight: 80 kg Blood Pressure: 112 mmHg / 46 mmHg BMI: 29.35 kg/m2 Procedures No Procedures Documented Immunizations No Immunizations Documented This Visit Final Med List: multivitamin, ( Multivitamins with Folic Acid 1 mg Tab) 1 Tablets By Mouth every day. Refills: 0. ondansetron (Zofran ODT 4 mg Tab-Dis) 1 Tablets By Mouth 3 times a day. Refills: 0. Care Team Members: Attending Physician: Magalis Snow DO Consulting Physician: Referring Physician: Follow up: With: Address: When: Maglais Snow [address] [place] [id number] Business (1) In 6 days 07/25/2023 Comments: Call for any problems. Call physician if symptoms worsen Return for contractions closer, longer, harder Return for decreased movement Return if ruptured membranes or vaginal bleeding Patient Education Information: Normal [facility] Inpatient Patient Summaryon 07-19-2023 Inpatient Patient Summary [address] [address] Patient Discharge Instructions PERSON INFORMATION Name: JORDIN TYLER Date of : 2005 Current Date: 07/19/2023 08:19:52 PHYSICIANS Admitting Physician: Magalis Snow DO Primary Care Physician: CHASE, GENERIC PCP Phone Number: Comment: Discharge Diagnosis: Condition at Discharge: JORDIN TYLER has been given the following list of follow-up instructions, prescriptions, and patient education materials: PATIENT FOLLOW-UP INFORMATION Diet: Activity: Wound Care Instructions: Remove Your Dressing IN: Days Call Your Doctor For: IF UNABLE TO CONTACT YOUR PHYSICIAN AND YOU FEEL IT IS AN EMERGENCY, GO TO THE NEAREST EMERGENCY ROOM OR CALL 911 Home Treatment: Devices/Equipment: Special Services: Additional Instructions: Physician to provide the following pending test results: Follow up: With: Address: When: Magalis Leach [address] [place], [facility] [address] [place] [address] Business (1) In 6 days 07/25/2023 Comments: Call for any problems. Call physician if symptoms worsen Return for contractions closer, longer, harder Return for decreased movement Return if ruptured membranes or vaginal bleeding In the event that this physician does not participate in your insurance network, please consult with your insurance company to find a nearby participating provider. Comment: JAYSON Suárez SHIANNE A, have received the attached patient education materials/instructi ons and have verbalized understanding. Patient Signature Date Clinican/Nurse Signature Date MEDICATION LIST Medications to Continue with No Changes Other Medications multivitamin, ( Multivitamins with Folic Acid 1 mg Tab) 1 Tablets By Mouth every day. Refills: 0. Last Dose: Next Dose: ondansetron (Zofran ODT 4 mg Tab-Dis) 1 Tablets By Mouth 3 times a day. Refills: 0. Last Dose: Next Dose: Pharmacy Information: PATIENT EDUCATION INFORMATION Instructions: Medication Leaflets: You may receive a survey from Stephanie Carter asking you to rate your care experience. Your feedback is important and will help us understand what we do well and how we can improve the quality of care we provide to you, your loved ones and our community. It?s an honor to serve you. Patient Portal You may access all of your results and other medical record information on our secure patient portal. If you are not signed up for this yet, please contact [employer] at [phone] to get signed up today. NGUYEN Award Nomination The NGUYEN (Diseases Attacking the Immune SYstem) Award is an international recognition program that honors and celebrates the skillful, compassionate care nurses provide every day. Anyone who experiences or observes amazing care being provided by a nurse is encouraged to submit a nomination. To nominate your nurse, use your smart phone to scan the QR code below. Thank you for choosing [facility] Normal [facility] Insurance Correspondence Off ice07-19-2023 Insurance Correspondence Office [phone] [id number] Normal [facility] UA with Cult [employer] 07-19-19 24 Bilirubin Ql (U) Negative Normal Negative [facility] Comment on above: Performed By: #### 4 [id number] #### [facility] [address] [place] [address] Clarity (U) Clear Normal Clear [facility] Comment on above: Performed By: #### 4 [id number] #### [facility] [address] [place] [address] Color (U) Light-Yellow Normal Yellow [facility] Comment on above: Result Comment: Micr oscopic readings are only performed on those samples that meet specific criteria set forth by [facility]. Performed By: #### 4 [id number] #### [facility] [address] [place] [address] Epithelial cells.squamous Auto (Urine sed) [#/Area] 5-8 Invalid Interpretation Code [facility] Comment on above: Performed By: #### 4 [id number] #### [facility] [address] [place] [address] Glucose Ql (U) Negative Normal Negative [facility] Comment on above: Performed By: #### 4 [id number] #### [facility] [address] [place] [address] Hemoglobin Auto test strip (U) [Mass/Vol] Negative Normal Negative [facility] Comment on above: Performed By: #### 4 [id number] #### [facility] [address] [place] [address] Ketones Auto test strip Ql (U) Negative Normal Negative [facility] Comment on above: Performed By: #### 4 [id number] #### [facility] [address] [place] [address] Leukocyte esterase Auto test strip Ql (U) 250 Jeremias/uL Abnormal Negative [facility] Comment on above: Performed By: #### 4 [id number] #### [facility] [address] [place] [address] Mucus Auto Ql (U) Trace Normal Negative [facility] Comment on above: Performed By: #### 4 [id number] #### [facility] [address] [place] [address] Nitrite Auto test strip Ql (U) Negative Normal Negative [facility] Comment on above: Performed By: #### 4 [id number] #### [facility] [address] [place] [address] pH (U) 6.5 [pH] Invalid Interpretation Code 5.0-9.0 [facility] Comment on above: Performed By: #### 4 [id number] #### [facility] [address] [place] [address] Protein Ql (U) Negative Normal Negative [facility] Comment on above: Performed By: #### 4 [id number] #### [facility] [address] [place] [address] RBC Ql (U) 0-3 Normal 0-3 [facility] Comment on above: Performed By: #### 4 [id number] #### [facility] [address] [place] [address] Specific gravity (U) [Rel density] 1.019 Invalid Interpretation Code 1.005-1.030 [facility] Comment on above: Performed By: #### 4 [id number] #### [facility] [address] [place] [id number] Urobilinogen (U) [Mass/Vol] Negative Normal Negative [facility] Comment on above: Performed By: #### 4 [id number] #### [facility] [address] [place] [address] WBC Auto (Urine sed) [#/Area] 0-5 Normal 0-5 [facility] Comment on above: Performed By: #### 4 [id number] #### [facility] [address] [place] [address] Type of Urine collection method Clean Catch Normal [facility] Comment on above: Performed By: #### 4 [id number] #### [facility] [address] [place] [address] URINALYSISOrdered By: SYSTEM SYSTEM on 07-19-2023 Bilirubin Ql (U) Negative Normal Negativemg/ d L [facility] UA Auto SS Clarity (U) Clear (07/19/23 6:34 AM) Normal Clear [facility] UA Auto SS Color (U) Light-Yellow 1 (07/19/23 6:34 AM) Normal Yellow [facility] UA Auto SS Comment on above: Interpretive Data: M icroscopic readings are only performed on those samples that meet specific criteria set forth by [facility]. Epithelial cells.squamous Auto (Urine sed) [#/Area] 5-8 graded/HPF Invalid Interpretation Code [facility] UA Auto SS Glucose Ql (U) Negative Normal Negativemg/d L [facility] Auto SS Hemoglobin Auto test strip (U) [Mass/Vol] Negative Normal Negativemg/d L [facility] UA Auto SS Ketones Auto test strip Ql (U) Negative Normal Negativemg/d L [facility] UA Auto SS Leukocyte esterase Auto test strip Ql (U) 250 Jeremias/uL Jeremias/uL Invalid Interpretation Code NegativeLeu/ uL [facility] UA Auto SS Mucus Auto Ql (U) Trace graded/LPF Normal Negati vegrad ed/LPF [facility] UA Auto SS Nitrite Auto test strip Ql (U) Negative Normal Negativemg/d L [facility] UA Auto SS pH (U) 6.5 *NA* (07/19/23 6:34 AM) Invalid Interpretation Code 5.0 - 9.0 [facility] UA Auto SS Protein Ql (U) Negative Normal Negativemg/d L [facility] UA Auto SS RBC Ql (U) 0-3 graded/HPF Normal 0-3graded/HP F [facility] UA Auto SS Specific gravity (U) [Rel density] 1.019 *NA* (07/19/23 6:34 AM) Invalid Interpretation Code 1.005 - 1.030 [facility] UA Auto SS Urobilinogen (U) [Mass/Vol] Negative Normal Negativemg/d L [facility] UA Auto SS WBC Auto (Urine sed) [#/Area] 0-5 graded/HPF Normal 0-5graded/HP F [facility] UA Auto SS URINALYSISOrdered By: Kristy Wallace on 07-19-2023 UA Spec Desc Clean Catch (07/19/23 6:34 AM) Normal [facility] UA Auto SS C Urineon 07-11-2023 Bacteria identified Cx Nom (U) Microbiology PROCEDURE: Urine Culture [R1] SOURCE: U CleanCatch BODY SITE: COLLECTED DATE/TIME: 07/09/2023 16:12 EDT RECEIVED DATE/TIME: 07/09/2023 16:15 EDT START DATE/TIME: 07/09/2023 16:15 EDT FREE TEXT SOURCE: Kourtney LEMONS, Kourtney FINAL REPORTS Final Report [] Verified Date/Time: 07/11/2023 11:09 EDT <10,000 cfu/ml Mixed skin contaminants Performing Locations R1: This test was performed at: [employer] [facility], [address] [place] [address], [facility] , , Normal [facility] Comment on above: Performed By: #### 2 [id number] #### [facility] [address] [id number] HIV Screen 4th Generation wR fxon 07-11-2023 HIV 1+2 Ab+HIV1 p24 Ag IA Ql Non-Reactive Invalid Interpretation Code Non Reactive [facility] Comment on above: Result Comment: HIV Negative HIV-1/HIV-2 antibodies and HIV-1 p24 antigen were NOT detected. There is no laboratory evidence of HIV infection. Performed at: [address] [id number] PhD Jomar Verma Performed By: #### 9 [id number] #### [facility] [address] [place] [address] Hep Bs Agon 07-11-2023 HBV surface Ag IA Ql Negative Invalid Interpretation Code Negative [facility] Comment on above: Result Comment: Perf ormed at: [address] [id number] PhD Jomar Verma Performed By: #### 2 [id number] #### [facility] [address] [place] [address] RPR with Conf Rfxon 07-11-19 24 Reagin Ab RPR Ql (S) Non-Reactive Invalid Interpretation Code Non Reactive [facility] Comment on above: Result Comment: Perf ormed at: [address] [id number] PhD Jomar Verma Performed By: #### 1 [id number] #### [facility] [address] [place] [address] ABO/Rhon 07-09-2023 ABO/Rh Positive Invalid Interpretation Code [facility] Comment on above: Performed By: #### 2 [id number] #### [facility] [address] [place] [address] ABSCon 07-09-2023 ABSC Gel Interp Negative Normal [facility] Comment on above: Performed By: #### 1 [id number] #### [facility] [address] [place] [address] BLOOD BANKOrdered By: Tobias Ospina on 07-09-2023 ABO/Rh Interp Positive Invalid Interpretation Code [facility] BB Subsection ABSC Gel Interp Negative (07/09/23 3:58 PM) Normal [facility] BB Subsection CBC w/ Auto Diffon Anisocytosis Ql (Bld) PRESENT Invalid Interpretation Code [facility] Comment on above: Performed By: #### 2 [id number] #### [facility] [address] [place] [address] Basophils/100 WBC (Bld) 0.3 % Normal 0.0-2.0 [facility] Comment on above: Performed By: #### 2 [id number] #### [facility] [address] [place] [address] Basophils/Leukocytes Auto (Bld) [Pure # fraction] 0.0 E9/L Normal 0.0-0.2 [facility] Comment on above: Performed By: #### 2 [id number] #### [facility] [address] [place] [address] Eosinophils (Bld) [#/Vol] 0.1 E9/L Normal 0.0-0.5 [facility] Comment on above: Performed By: #### 2 [id number] #### [facility] [address] [place] [address] Eosinophils/100 WBC (Bld) 1.3 % Normal 0.0-8.0 [facility] Comment on above: Performed By: #### 2 [id number] #### [facility] [address] [place] [address] Erythrocyte distribution width (RBC) [Ratio] 15.0 % High 10.9-14.2 [facility] Comment on above: Performed By: #### 2 [id number] #### [facility] [address] [place] [address] Hematocrit (Bld) [Volume fraction] 28.8 % Low 34.0-46.0 [facility] Comment on above: Performed By: #### 2 [id number] #### [facility] [address] [place] [address] Hemoglobin (Bld) [Mass/Vol] 9.2 g/dL Low 12.0-16.0 [facility] Comment on above: Performed By: #### 2 [id number] #### [facility] [address] [place] [address] Hypochromia Auto Ql (Bld) PRESENT Invalid Interpretation Code [facility] Comment on above: Performed By: #### 2 [id number] #### [facility] [address] [place] [address] Lymphocytes (Bld) [#/Vol] 2.2 E9/L Normal 1.0-4.0 [facility] Comment on above: Performed By: #### 2 [id number] #### [facility] [address] [place] [address] Lymphocytes/100 WBC (Bld) 19.1 % Normal 14.0-50.0 [facility] Comment on above: Performed By: #### 2 [id number] #### [facility] [address] [place] [address] MCH (RBC) [Entitic mass] 23.5 pg Low 27.0-34.0 [facility] Comment on above: Performed By: #### 2 [id number] #### [facility] [address] [place] [address] MCHC (RBC) [Mass/Vol] 31.9 g/dL Normal 31.4-36.0 [facility] Comment on above: Performed By: #### 2 [id number] #### [facility] [address] [place] [address] MCV (RBC) [Entitic vol] 73.8 fL Low 80.0-100.0 [facility] Comment on above: Performed By: #### 2 [id number] #### [facility] [address] [place] [address] Microcytes Ql (Bld) PRESENT Invalid Interpretation Code [facility] Comment on above: Performed By: #### 2 [id number] #### [facility] [address] [place] [address] Monocytes (Bld) [#/Vol] 0.8 E9/L Normal 0.2-1.0 [facility] Comment on above: Performed By: #### 2 [id number] #### [facility] [address] [place] [address] Neutrophils (Bld) [#/Vol] 8.1 E9/L High 2.0-7.5 [facility] Comment on above: Performed By: #### 2 [id number] #### [facility] [address] [place] [address] Neutrophils/100 WBC (Bld) 72.3 % Normal 36.0-75.0 [facility] Comment on above: Performed By: #### 2 [id number] #### [facility] [address] [place] [address] Ovalocytes LM Ql (Bld) PRESENT Invalid Interpretation Code [facility] Comment on above: Performed By: #### 2 [id number] #### [facility] [address] [place] [address] Platelet mean volume (Bld) [Entitic vol] 8.9 fL Normal 6.4-10.8 [facility] Comment on above: Performed By: #### 2 [id number] #### [facility] [address] [place] [address] Platelets (Bld) [#/Vol] 251.0 E9/L Normal 150.0-500.0 [facility] Comment on above: Performed By: #### 2 [id number] #### [facility] [address] [place] [address] RBC (Bld) [#/Vol] 3.9 E12/L Low 4.3-5.9 [facility] Comment on above: Performed By: #### 2 [id number] #### [facility] [address] [place] [address] RBC size Nom (Bld) SEE MORPHOLOGY Invalid Interpretation Code [facility] Comment on above: Performed By: #### 2 [id number] #### [facility] [address] [place] [address] WBC corrected for nucl RBC Auto (Bld) [#/Vol] 11.3 E9/L High 4.0-11.0 [facility] Comment on above: Performed By: #### 2 [id number] #### [facility] [address] [place] [address] Consent for Treatmenton Consent for Treatment [id number] E9#1.00TIFF Normal [facility] Consent for Treatment [id number]#1.00TIFF Normal [facility] HEMATOLOGYOrdered By: SYSTEM SYSTEM on 07-09-2023 Anisocytosis Ql (Bld) PRESENT *NA* (07/09/23 3:58 PM) Invalid Interpretation Code [facility] Basophils/100 WBC (Bld) 0.3 % Normal 0.0 - 2.0 % [facility] Basophils/Leukocytes Auto (Bld) [Pure # fraction] 0.0 E9/L Normal 0.0 - 0.2 E9/L [facility] Eosinophils (Bld) [#/Vol] 0.1 E9/L Normal 0.0 - 0.5 E9/L [facility] Eosinophils/100 WBC (Bld) 1.3 % Normal 0.0 - 8.0 % [facility] Erythrocyte distribution width (RBC) [Ratio] 15.0 % High 10.9 - 14.2 % [facility] Hematocrit (Bld) [Volume fraction] 28.8 % Low 34.0 - 46.0 % [facility] Hemoglobin (Bld) [Mass/Vol] 9.2 g/dL Low 12.0 - 16.0 gm/dL [facility] Hypochromia Auto Ql (Bld) PRESENT *NA* (07/09/23 3:58 PM) Invalid Interpretation Code [facility] Lymphocytes (Bld) [#/Vol] 2.2 E9/L Normal 1.0 - 4.0 E9/L [facility] Lymphocytes/100 WBC (Bld) 19.1 % Normal 14.0 - 50.0 % [facility] MCH (RBC) [Entitic mass] 23.5 pg Low 27. 0 - 34.0 pg [facility] MCHC (RBC) [Mass/Vol] 31.9 g/dL Normal 31.4 - 36.0 gm/dL [facility] MCV (RBC) [Entitic vol] 73.8 fL Low 80.0 - 100.0 fL [facility] Microcytes Ql (Bld) PRESENT *NA* (07/09/23 3:58 PM) Invalid Interpretation Code [facility] Monocytes (Bld) [#/Vol] 0.8 E9/L Normal 0.2 - 1.0 E9/L [facility] Monocytes/100 WBC (Bld) 7.0 % Normal 4.0 - 14.0 % [facility] Neutrophils (Bld) [#/Vol] 8.1 E9/L High 2.0 - 7.5 E9/L [facility] Neutrophils/100 WBC (Bld) 72.3 % Normal 36.0 - 75.0 % [facility] Ovalocytes LM Ql (Bld) PRESENT *NA* (07/09/23 3:58 PM) Invalid Interpretation Code [facility] Platelet mean volume (Bld) [Entitic vol] 8.9 fL Normal 6.4 - 10.8 fL [facility] Platelets (Bld) [#/Vol] 251.0 E9/L Normal 150. 0 - 500.0 E9/L [facility] RBC (Bld) [#/Vol] 3.9 E12/L Low 4.3 - 5.9 E12/L [facility] RBC size Nom (Bld) SEE MORPHOLOGY *NA* (07/09/23 3:58 PM) Invalid Interpretation Code [facility] WBC corrected for nucl RBC Auto (Bld) [#/Vol] 11.3 E9/L High 4.0 - 11.0 E9/L [facility] Physician Orderon 07-09-2023 Physician Order [id number]#1.00TIFF Normal [facility] Physician Order [id number]#1.00TIFF Normal [facility] Physician Order [id number] 62#1.00TIFF Normal [facility] No Panel Informationon 03-20 Glucose, UA Negative Negative - 1999(110) ++++ mg/dL [facility] Protein, UA Negative Negative - 1999(20) ++++ mg/dL [facility] ED Note-Physicianon 02-17-19 ED Note-Physician Basic Information Time Seen: Renae ROBERT Sadie E. 02/13/2023 14:21 Chief Complaint [address] [facility] OB. appt. scheduled for 02/23. states she has been vomiting for a couple of weeks and feels dehydrated. denies vaginal bleeding or any cramping. History of Present Illness 18-year-old female who is 8 weeks presents for continued vomiting. She admits to dysuria. She states that she called her [employer]ISONER CLASS[employer]ICATION INTERVIEWER today and they were going to give her a prescription. She has a history of hyperemesis gravidarum. Denies vaginal bleeding. Denies fever, dizziness, weakness, abdominal or back pain, diarrhea, shortness of breath or chest pain Review of Systems Review of systems negative unless otherwise stated in HPI Physical Exam Vitals & Measurements T: 36.7 ?C(Oral) HR: 71(Monitored) RR: 16 BP: 111/66 SpO2: 100% HT: 165 cm WT: 69.5 kg BMI: 25.53 GENERAL: ALERT, NO ACUTE DISTRESS, talking full and complete sentences SKIN: WARM, DRY, INTACT; NO CYANOSIS, NO RASH HEAD: NORMOCEPHALIC, ATRAUMATIC ENT: EYE: PERRL, EOMI, NORMAL CONJUNCTIVA, NO DISCHARGE NOSE: NARES PATENT MOUTH: ORAL MUCOSA MOIST THROAT: NO STRIDOR NECK: SUPPLE, TRACHEA MIDLINE, FROM RESPIRATORY: NON-LABORED RESPIRATIONS, SYMMETRICAL EXPANSION ABDOMEN: SOFT, NT, NORMAL BS, NO ORGANOMEGALY, NON DISTENDED, NO REBOUND TENDERNESS,GUARDING OR PERITONEAL SIGNS EXTREMITIES: FROM X 4 NEUROLOGICAL: A&OX3 SPINE: No CVA tenderness PSYCHIATRIC: COOPERATIVE, APPROPRIATE MOOD AND AFFECT Medical Decision Making Patient will be given IV fluids and Zofran. Previous records reviewed. UA positive for leukocytes, WBCs and bacteria and will be treated with Macrobid for UTI. Potassium 3.4 and will be given 40 p.o. LFTs elevated and they were elevated at her last visit as well. No evidence of HELP syndrome. She is to follow-up with her [employer]ISONER CLASSIFICATION INTERVIEWER. Patient has not had any more vomiting, but still complains of nausea and dry heaving will be given Phenergan. She is now eating ice cream. Upon recheck, patient is sleeping comfortably on the cot with no further episodes of vomiting and will be discharged with a prescription for Zofran and Phenergan suppositories and follow-up with the PRISONER CLASSIFICATION INTERVIEWER. Afebrile, not tachycardic, not tachypneic, nontoxic-appearing, tolerating p.o. and ambulating at baseline and hemodynamically stable to be discharged home. Educated side effect of medications. Answered all questions. Patient in agreement with treatment. Assessment/Plan 1. Hyperemesis gravidarum (O21.0: Mild hyperemesis gravidarum) Ordered: ondansetron, 4 mg = 1 tab(s), Oral, q8hr, X 2 day(s), # 6 tab(s), Refills(s) 0, [id number], cm, 02/13/23 14:25:00 EST, Height/Length Dosing, 69.5, kg, 02/13/23 14:25:00 EST, Weight Dosing promethazine, 12.5 mg = 1 supp, Rectal, q4hr, PRN for motion sickness, X 5 day(s), # 30 supp, Refills(s) 0, [id number], 165, cm, 02/13/23 14:25:00 EST, Height/Length Dosing, 69.5, kg, 02/13/23 14:25:00 EST, Weight Dosing 2. (Z34.90: Encounter for supervision of normal , unspecified, unspecified trimester) Ordered: ondansetron, 4 mg = 1 tab(s), Oral, q8hr, X 2 day(s), # 6 tab(s), Refills(s) 0, Pharmacy: [facility] #[id number], 165, cm, 02/13/23 14:25:00 EST, Height/Length Dosing, 69.5, kg, 02/13/23 14:25:00 EST, Weight Dosing promethazine, 12.5 mg = 1 supp, Rectal, q4hr, PRN for motion sickness, X 5 day(s), # 30 supp, Refills(s) 0, [id number], cm, 02/13/23 14:25:00 EST, Height/Length Dosing, 69.5, kg, 02/13/23 14:25:00 EST, Weight Dosing 3. UTI in (O23.40: Unspecified infection of urinary tract in , unspecified trimester) Ordered: ondansetron, 4 mg = 1 tab(s), Oral, q8hr, X 2 day(s), # 6 tab(s), Refills(s) 0, [id number], 165, cm, 02/13/23 14:25:00 EST, Height/Length Dosing, 69.5, kg, 02/13/23 14:25:00 EST, Weight Dosing promethazine, 12.5 mg = 1 supp, Rectal, q4hr, PRN for motion sickness, X 5 day(s), # 30 supp, Refills(s) 0, [id number] 165, cm, 02/13/23 14:25:00 EST, Height/Length Dosing, 69.5, kg, 02/13/23 14:25:00 EST, Weight Dosing 4. Hypokalemia (E87.6: Hypokalemia) Ordered: ondansetron, 4 mg = 1 tab(s), Oral, q8hr, X 2 day(s), # 6 tab(s), Refills(s) 0, [id number], 165, cm, 02/13/23 14:25:00 EST, Height/Length Dosing, 69.5, kg, 02/13/23 14:25:00 EST, Weight Dosing promethazine, 12.5 mg = 1 supp, Rectal, q4hr, PRN for motion sickness, X 5 day(s), # 30 supp, Refills(s) 0, [id number], 165, cm, 02/13/23 14:25:00 EST, Height/Length Dosing, 69.5, kg, 02/13/23 14:25:00 EST, Weight Dosing 5. Elevated LFTs (R79.89: Other specified abnormal findings of blood chemistry) Ordered: ondansetron, 4 mg = 1 tab(s), Oral, q8hr, X 2 day(s), # 6 tab(s), Refills(s) 0, [facility]: [id number], 165, cm, 02/13/23 14:25:00 EST, Height/Length Dosing, 69.5, kg, 02/13/23 14:25:00 EST, Weight Dosing promethazine, 12. (more content not included)... Normal [facility] Comment on above: Result Comment: Elec tronically Signed By: Sadie Macdonald PA-C\.br\Date and Time Signed: 02/13/23 17:20 EST\.br\Electronically Co-Signed By: Steven Alatorre DO\.br\Date and Time Co-Signed: 02/17/23 07:19 EST C Urineon 02-15-2023 Bacteria identified Cx Nom (U) Microbiology PROCEDURE: Urine Culture [R1] SOURCE: U CleanCatch BODY SITE: COLLECTED DATE/TIME: 02/13/2023 14:30 EST RECEIVED DATE/TIME: 02/13/2023 16:17 EST START DATE/TIME: 02/13/2023 16:17 EST FREE TEXT SOURCE: Sadie Macdonald PA-C, PA-C, Jenna E. FINAL REPORTS Final Report [] Verified Date/Time: 02/15/2023 10:01 EST 2,000 cfu/ml Mixed skin contaminants Performing Locations R1: This test was performed at: [facility], [address] [place] [address], [id number]- , [place], Normal [facility] Comment on above: Performed By: #### 2 [id number], [id number] #### [facility] [address] [place] [address] Auto Diffon 02-13-2023 Basophils/100 WBC (Bld) 0.6 % Normal 0.0-2.0 [facility] Comment on above: Order Comment: Order Added by Discern Expert. Performed By: #### 1 [id number] #### [facility] [address] [place] [address] Basophils/Leukocytes Auto (Bld) [Pure # fraction] 0.1 E9/L Normal 0.0-0.2 [facility] Comment on above: Order Comment: Order Added by Discern Expert. Performed By: #### 1 [id number] #### [facility] [address] [place] [address] Eosinophils/100 WBC (Bld) 0.4 % Normal 0.0-8.0 [facility] Comment on above: Order Comment: Order Added by Discern Expert. Performed By: #### 1 [id number] #### [facility] [address] [place] [address] Eosinophils/Leukocytes Auto (Bld) [Pure # fraction] 0.0 E9/L Normal 0.0-0.5 [facility] Comment on above: Order Comment: Order Added by Discern Expert. Performed By: #### 1 [id number] #### [facility] [address] [place] [address] Lymphocytes/100 WBC (Bld) 22.3 % Normal 14.0-50.0 [facility] Comment on above: Order Comment: Order Added by Discern Expert. Performed By: #### 1 [id number] #### [facility] [address] [place] [address] Lymphocytes/Leukocytes Auto (Bld) [Pure # fraction] 1.9 E9/L Normal 1.0-4.0 [facility] Comment on above: Order Comment: Order Added by Discern Expert. Performed By: #### 1 [id number] #### [facility] [address] [place] [address] Monocytes/100 WBC (Bld) 8.5 % Normal 4.0-14.0 [facility] Comment on above: Order Comment: Order Added by Discern Expert. Performed By: #### 1 [id number] #### [facility] [address] [place] [address] Monocytes/Leukocytes Auto (Bld) [Pure # fraction] 0.7 E9/L Normal 0.2-1.0 [facility] Comment on above: Order Comment: Order Added by Discern Expert. Performed By: #### 1 [id number] #### [facility] [address] [place] [address] Neutrophils/100 WBC (Bld) 68.2 % Normal 36.0-75.0 [facility] Comment on above: Order Comment: Order Added by Discern Expert. Performed By: #### 1 [id number] #### [facility] [address] [place] [address] Neutrophils/Leukocytes Auto (Bld) [Pure # fraction] 5.7 E9/L Normal 2.0-7.5 [facility] Comment on above: Order Comment: Order Added by Discern Expert. Performed By: #### 1 [id number] #### [facility] [address] [place] [address] CBC w/ Auto Diffon 4 Erythrocyte distribution width (RBC) [Ratio] 19.0 % High 10.9-14.2 [facility] Comment on above: Performed By: #### 1 [id number] #### [facility] [address] [place] [address] Hematocrit (Bld) [Volume fraction] 36.7 % Normal 34.0-46.0 [facility] Comment on above: Performed By: #### 1 [id number], [id number] #### [facility] [address] [place] [address] Hemoglobin (Bld) [Mass/Vol] 11.9 g/dL Low 12.0-16.0 [facility] Comment on above: Performed By: #### 1 [id number] #### [facility] [address] [place] [address] MCH (RBC) [Entitic mass] 24.7 pg Low 27.0-34.0 [facility] [facility] Comment on above: Performed By: #### 1 [id number] #### [facility] [address] [place] [address] MCHC (RBC) [Mass/Vol] 32.5 g/dL Normal 31.4-36.0 [facility] Comment on above: Performed By: #### 1 [id number] #### [facility] [address] [place] [address] MCV (RBC) [Entitic vol] 75.9 fL Low 80.0-100.0 [facility] Comment on above: Performed By: #### 1 [id number] #### [facility] [address] [place] [address] Platelet mean volume (Bld) [Entitic vol] 8.7 fL Normal 6.4-10.8 [facility] Comment on above: Performed By: #### 1 [id number] #### [facility] [address] [place] [address] Platelets (Bld) [#/Vol] 326.0 E9/L Normal 150.0-500.0 [facility] Comment on above: Performed By: #### 1 [id number] #### [facility] [address] [place] [address] RBC (Bld) [#/Vol] 4.8 E12/L Normal 4.3-5.9 [facility] Comment on above: Performed By: #### 1 [id number] #### [facility] [address] [place] [address] WBC corrected for nucl RBC Auto (Bld) [#/Vol] 8.3 E9/L Normal 4.0-11.0 [facility] Comment on above: Performed By: #### 1 [id number] #### [facility] [address] [place] [address] CHEMISTRYOrdered By: SYSTEM SYSTEM on 02-13-2023 Albumin [Mass/Vol] 4.2 g/dL Normal 3.3 - 5.0 gm/dL Remisol Chem Albumin/Globulin [Mass ratio] 1.3 {ratio} Normal 1.1 - 2.2 [facility] Alk Phos 114 [iU]/d High 21 - 98 Int._Unit/L Remisol Chem ALT 86 [iU]/d High 6 - 46 Int._Unit/L Remisol Chem Anion gap [Moles/Vol] 16 mmol/L Normal 6 - 16 mEq/L R emisol Chem AST 51 [iU]/d High 5 - 43 Int._Unit/L Remisol Chem Bili Total 0.7 mg/dL Normal 0.0 - 1.1 mg/dL [facility] Calcium [Mass/Vol] 9.3 mg/dL Normal 8.9 - 11. 1 mg/dL [facility] Chloride [Moles/Vol] 103 mmol/L Normal 101 - 1 11 mmol/L [facility] Chem CO2 [Moles/Vol] 21 mmol/L Normal 21 - 31 mmol/L [facility] Creatinine [Mass/Vol] 0.5 mg/dL Normal 0.5 - 1.3 mg/dL [facility] eGFR mL/min/1.73 m2 Normal >=59mL/min/1 .73 m2 [facility] Globulin (S) [Mass/Vol] 3.3 g/dL Normal 1.4 - 4.0 gm/dL [facility] Glucose [Mass/Vol] 84 mg/dL Normal 55 - 199 mg/dL [facility] Magnesium [Mass/Vol] 1.7 mg/dL Normal 1.3 - 2 .4 mg/dL [facility] Potassium [Moles/Vol] 3.4 mmol/L Low 3.5 - 5.3 mmol/L Rem[facility] Chem Protein [Mass/Vol] 7.5 g/dL Normal 6.0 - 7.8 gm/dL [facility] Sodium [Moles/Vol] 137 mmol/L Normal 135 - 145 mmol/L [facility] Urea nitrogen [Mass/Vol] 7 mg/dL Normal 5 - 21 mg/d L Rem[facility] Chem Urea nitrogen/Creatinine [Mass ratio] 14 mg/mg Normal 10 - 20 [facility] CMPon 02-13-2023 Albumin [Mass/Vol] 4.2 g/dL Normal 3.3-5.0 [facility] Comment on above: Performed By: #### 1 [id number] #### [facility] [address] [place] [address] Albumin/Globulin [Mass ratio] 1.3 {ratio} Normal 1.1-2.2 [facility] Comment on above: Performed By: #### 1 [id number] #### [facility] [address] [place] [address] Alk Phos 114 Int._Unit/L High 21-98 [facility] Comment on above: Performed By: #### 1 [id number] #### [facility] [address] [place] [address] ALT 86 Int._Unit/L High 6-46 [facility] Comment on above: Performed By: #### 1 [id number] #### [facility] [address] [place] [address] Anion gap [Moles/Vol] 16 mmol/L Normal 6-16 [facility] Comment on above: Performed By: #### 1 [id number] #### [facility] [address] [place] [address] AST 51 Int._Unit/L High 5-43 [facility] Comment on above: Performed By: #### 1 [id number] #### [facility] [address] [place] [address] Bili Total 0.7 mg/dL Normal 0.0-1.1 [facility] Comment on above: Performed By: #### 1 [id number] #### [facility] [address] [place] [address] BUN/Creat Ratio 14 No Units Normal 10-20 [facility] Comment on above: Performed By: #### 1 [id number] #### [facility] [address] [place] [address] Calcium [Mass/Vol] 9.3 mg/dL Normal 8.9-11.1 [facility] Comment on above: Performed By: #### 1 [id number] #### [facility] [address] [place] [address] Chloride [Moles/Vol] 103 mmol/L Normal 101-111 [facility] Comment on above: Performed By: #### 1 [id number] #### [facility] [address] [place] [address] CO2 [Moles/Vol] 21 mmol/L Normal 21-31 [facility] Comment on above: Performed By: #### 1 [id number] #### [facility] [address] [place] [address] Creatinine [Mass/Vol] 0.5 mg/dL Normal 0.5-1.3 [facility] Comment on above: Performed By: #### 1 [id number] #### [facility] [address] [place] [address] Globulin (S) [Mass/Vol] 3.3 g/dL Normal 1.4-4.0 [facility] Comment on above: Performed By: #### 1 [id number] #### [facility] [address] [place] [address] Glucose [Mass/Vol] 84 mg/dL Normal 55-199 [facility] Comment on above: Performed By: #### 1 [id number] #### [facility] [address] [place] [address] Potassium [Moles/Vol] 3.4 mmol/L Low 3.5-5.3 [facility] Comment on above: Performed By: #### 1 [id number] #### [facility] [address] [place] [address] Protein [Mass/Vol] 7.5 g/dL Normal 6.0-7.8 [facility] Comment on above: Performed By: #### 1 [id number] #### [facility] [address] [place] [address] Sodium [Moles/Vol] 137 mmol/L Normal 135-145 [facility] Comment on above: Performed By: #### 1 [id number] #### [facility] [address] [place] [address] Urea nitrogen [Mass/Vol] 7 mg/dL Normal 5-21 [facility] Comment on above: Performed By: #### 1 [id number] #### [facility] [address] [place] [address] Consent for Treatmenton Consent for Treatment [id number] Normal [facility] Discharge Instructionson Discharge Instructions [id number] Normal [facility] ED Clinical Summaryon 2023 ED Clinical Summary [address] [address] ED Clinical Summary Person Information Name: JORDIN TYLER Kristan/[facility] Age: 18 Years : 2005 Sex: Female Language: Guatemalan PCP: MARK STONE Marital Status: Single Phone: [phone] Visit Id: Visit Reason: Vomiting - ; 8 WEEKS , CANT KEEP ANYTHING DOWN Speciality: Acuity: 3 Enc Type: Emergency Med Service: Emergency Arrival: 02/13/2023 14:15:10 Discharge: 02/13/2023 17:35:51 LOS: 000 03:20 Checkin: 02/13/2023 14:15:10 Checkout: 02/13/2023 17:35:51 Dispo Type: Home (Routine DC) EVENTS: Event Name Event Status Request Date/Time Start Date/Time Complete Date/Time Arrive Complete 02/13/2023 14:15:10 02/13/2023 14:15:10 02/13/2023 14:15:10 Document Home Meds Request 02/13/2023 14:15:10 Triage Complete 02/13/2023 14:15:10 02/13/2023 14:25:46 02/13/2023 14:25:46 Bed Assign Complete 02/13/2023 14:20:44 02/13/2023 14:20:44 02/13/2023 14:20:44 Dr Exam Complete 02/13/2023 14:20:44 02/13/2023 14:21:53 02/13/2023 14:21:53 RN Exam Complete 02/13/2023 14:20:44 02/13/2023 14:38:03 02/13/2023 14:38:03 Registration Complete 02/13/2023 14:21:53 02/13/2023 14:31:27 02/13/2023 14:31:27 Patient Care Request 02/13/2023 14:22:51 Pending Labs Complete 02/13/2023 14:22:52 02/13/2023 15:06:22 Lab Complete 02/13/2023 14:22:52 02/13/2023 15:06:22 Urine Collect Complete 02/13/2023 14:22:52 02/13/2023 14:52:22 Meds Admin Complete 02/13/2023 14:22:52 02/13/2023 14:35:05 Reg Complete Request 02/13/2023 14:31:27 Reg Bed Request Complete 02/13/2023 14:31:27 02/13/2023 14:31:27 02/13/2023 14:31:27 Dr Exam Complete 02/13/2023 14:31:55 02/13/2023 14:31:55 02/13/2023 14:31:55 Registration Request 02/13/2023 14:31:55 Pending Labs Complete 02/13/2023 14:38:33 02/13/2023 14:38:33 02/13/2023 15:06:22 Lab Complete 02/13/2023 14:38:33 02/13/2023 14:38:33 02/13/2023 15:06:22 Pending Labs Inlab 02/13/2023 14:42:49 02/13/2023 14:42:49 Lab Inlab 02/13/2023 14:42:49 02/13/2023 14:42:49 Pending Labs Complete 02/13/2023 14:49:09 02/13/2023 14:49:09 02/13/2023 14:49:09 Pending Labs Complete 02/13/2023 14:49:40 02/13/2023 14:49:40 02/13/2023 14:49:40 Meds Admin Request 02/13/2023 15:01:13 Pending Labs Complete 02/13/2023 15:04:55 02/13/2023 15:04:55 02/13/2023 15:06:01 Pending Labs Complete 02/13/2023 15:04:56 02/13/2023 15:04:56 02/13/2023 15:06:13 Lab Complete 02/13/2023 15:04:56 02/13/2023 15:04:56 02/13/2023 15:06:13 Meds Admin Complete 02/13/2023 15:12:10 02/13/2023 15:24:22 Meds Admin Complete 02/13/2023 15:55:21 02/13/2023 16:06:25 Discharge Complete 02/13/2023 17:18:46 02/13/2023 17:35:55 02/13/2023 17:35:55 Transfer Complete 02/13/2023 17:35:55 02/13/2023 17:35:55 02/13/2023 17:35:55 ADDRESS: [address] [place] [phone] PHYS DOC NOTES: MEDICAL INFORMATION: Prescriptions Given: New Medications [facility]/pharmacy #[id number], [address] [place], [place] [id number], [phone] nitrofurantoin (Macrobid 100 mg Cap) 1 Capsules By Mouth 2 times a day for 5 Days. Refills: 0. Medications to Continue Taking That Have Changed [facility]/pharmacy #[id number], [address] [place], [place] [id number], [phone] START: ondansetron (Zofran ODT 4 mg Tab-Dis) 1 Tablets By Mouth every 8 hours for 2 Days. Refills: 0. START: promethazine (promethazine 12.5 mg Supp) 1 Suppositories By rectum every 4 hours as needed for motion sickness for 5 Days. Refills: 0. Other Medications START: ondansetron (Zofran ODT 4 mg Tab-Dis) 1 Tablets By Mouth 3 times a day. Refills: 0. START: promethazine (promethazine 25 mg Supp) 1 Suppositories By rectum every 6 hours as needed for nausea/vomiting. Refills: 0. Medications to Continue with No Changes Other Medications multivitamin, ( Multivitamins with Folic Acid 1 mg Tab) 1 Tablets By Mouth every day. Refills: 0. PATIENT EDUCATION INFORMATION: Instructions: Hypokalemia; Urinary Tract Infection, Adult, Qyet-sp-Djoj; Hyperemesis Gravidarum Follow up: With: Address: When: Paul CASE, [place], [place] [facility], [address] [place] [address] Within 2 to 4 days DIAGNOSIS: 1:Hyperemesis gravidarum; 2:; 3:UTI in ; 4:Hypokalemia; 5:Elevated LFTs Normal [facility] ED Patient Education Noteon 02-13-2023 ED Patient Education Note Gastroenterology Hypokalemia Hypokalemia means that the amount of potassium in the blood is lower than normal. Potassium is a mineral (electrolyte) that helps regulate the amount of fluid in the body. It also stimulates muscle tightening (contraction) and helps nerves work properly. Normally, most of the body's potassium is inside cells, and only a very small amount is in the blood. Because the amount in the blood is so small, minor changes to potassium levels in the blood can be life-threatening. What are the causes? This condition may be caused by: ? Antibiotic medicine. ? Diarrhea or vomiting. Taking too much of a medicine that helps you have a bowel movement (laxative) can cause diarrhea and lead to hypokalemia. ? Chronic kidney disease (CKD). ? Medicines that help the body get rid of excess fluid (diuretics). ? Eating disorders, such as anorexia or bulimia. ? Low magnesium levels in the body. ? Sweating a lot. What are the signs or symptoms? Symptoms of this condition include: ? Weakness. ? Constipation. ? Fatigue. ? Muscle cramps. ? Mental confusion. ? Skipped heartbeats or irregular heartbeat (palpitations). ? Tingling or numbness. How is this diagnosed? This condition is diagnosed with a blood test. How is this treated? This condition may be treated by: ? Taking potassium supplements. ? Adjusting the medicines that you take. ? Eating more foods that contain a lot of potassium. If your potassium level is very low, you may need to get potassium through an IV and be monitored in the hospital. Follow these instructions at home: Eating and drinking ? Eat a healthy diet. A healthy diet includes fresh fruits and vegetables, whole grains, healthy fats, and lean proteins. ? If told, eat more foods that contain a lot of potassium. These include: ? Nuts, such as peanuts and pistachios. ? Seeds, such as sunflower seeds and pumpkin seeds. ? Peas, lentils, and jay beans. ? Whole grain and bran cereals and breads. ? Fresh fruits and vegetables, such as apricots, avocado, bananas, cantaloupe, kiwi, oranges, tomatoes, asparagus, and potatoes. ? Juices, such as orange, tomato, and prune. ? Lean meats, including fish. ? Milk and milk products, such as yogurt. General instructions ? Take bwfx-zlt-nlcrbhg and prescription medicines only as told by your health care provider. This includes vitamins, natural food products, and supplements. ? Keep all follow-up visits. This is important. Contact a health care provider if: ? You have weakness that gets worse. ? You feel your heart pounding or racing. ? You vomit. ? You have diarrhea. ? You have diabetes and you have trouble keeping your blood sugar in your target range. Get help right away if: ? You have chest pain. ? You have shortness of breath. ? You have vomiting or diarrhea that lasts for more than 2 days. ? You faint. These symptoms may be an emergency. Get help right away. Call 911. ? Do not wait to see if the symptoms will go away. ? Do not drive yourself to the hospital. Summary ? Hypokalemia means that the amount of potassium in the blood is lower than normal. ? This condition is diagnosed with a blood test. ? Hypokalemia may be treated by taking potassium supplements, adjusting the medicines that you take, or eating more foods that are high in potassium. ? If your potassium level is very low, you may need to get potassium through an IV and be monitored in the hospital. This information is not intended to replace advice given to you by your health care provider. Make sure you discuss any questions you have with your health care provider. Document Revised: 10/06/2021 Document Reviewed: 10/06/2021 Elsevier Patient Education ? 2022 [employer]. Obstetrics and Gynecology Urinary Tract Infection, Adult A urinary tract infection (UTI) is an infection of any part of the urinary tract. The urinary tract includes: ? The kidneys. ? The ureters. ? The bladder. ? The urethra. These organs make, store, and get rid of pee (urine) in the body. What are the causes? This infection is caused by germs (bacteria) in your genital area. These germs grow and cause swelling (inflammation) of your urinary tract. What increases the risk? The following factors may make you more likely to develop this condition: ? Using a small, thin tube (catheter) to drain pee. ? Not being able to control when you pee or poop (incontinence). ? Being female. If you are female, these things can increase the risk: ? Using these methods to prevent : ? A medicine that kills sperm (spermicide). ? A device that blocks sperm (diaphragm). ? Having low levels of a female hormone (estrogen). ? Being . You are more likely to develop this condition if: ? You have genes that add to your risk. ? You are sexually active. ? You take antibiotic medicines. (more content not included)... Normal [facility] ED Patient Summaryon 024 ED Patient Summary [place] [id number] Patient Discharge Instructions Person Information Name: JORDIN TYLER Age: 18 Years Arrival Date: 02/13/2023 14:15:10 Discharge Diagnosis: 1:Hyperemesis gravidarum; 2:; 3:UTI in ; 4:Hypokalemia; 5:Elevated LFTs Primary Care Physician: MARK STONE Provider Information Primary Provider: Steven Alatorre DO Advanced Flight Physician:None The exam and treatment you received in the Emergency Department were for an urgent problem and are not intended as complete care. It is important that you follow up with a doctor, nurse practitioner, or physician?s assistant chief nursing officer for ongoing care. If your symptoms become worse or you do not improve as expected and you are unable to reach your usual health care provider, you should return to the Emergency Department. We are available 24 hours a day. JOSE TYLERE Steve has been given the following list of patient education materials, prescriptions and follow-up instructions: Follow-up Instructions: With: Address: When: Paul CASE, [place], [address], [address] [place] [address] Within 2 to 4 days In the event that this physician does not participate in your insurance network, please consult with your insurance company to find a nearby participating provider. Patient Education Materials: Hypokalemia; Urinary Tract Infection, Adult, Ywgu-xs-Aiik; Hyperemesis Gravidarum A MESSAGE TO ALL PATIENTS REGARDING OPIOIDS PRESCRIPTION OPIOIDS: WHAT YOU NEED TO KNOW Prescription opioids can be used to help relieve nqndbmsk-ow-joiomj pain and are often prescribed following a surgery or injury, or for certain health conditions. These medications can be an important part of the treatment but also come with serious risks. It is important to work with your healthcare provider to make sure you are getting the safest, most effective care. WHAT ARE THE RISKS AND SIDE EFFECTS OF OPIOID USE? Prescription opioids carry serious risks of addiction and overdose, especially with prolonged use. An opioid overdose, often marked by slowed breathing, can cause sudden . The use of prescription opioids can have a number of side effects as well, even when taken as directed: ? Tolerance?meaning you might need to take more of the medication for the same pain relief ? Physical dependence?meaning you have symptoms of withdrawal when a medication is stopped ? Increased sensitivity to pain ? Constipation ? Nausea, vomiting, and dry mouth ? Sleepiness and dizziness ? Confusion ? Depression ? Low levels of testosterone that can result in lower sex drive, energy, and strength ? Itching and sweating RISKS ARE GREATER WITH: ? History of drug misuse, substance use disorder, or overdose ? Mental health conditions (such as depression or anxiety) ? Sleep apnea ? Older age (65 years and older) ? Avoid alcohol while taking prescription opioids. Also, unless specifically advised by your health care provider, medications to avoid include: ? Benzodiazepines (such as Xanax or Valium) ? Muscle relaxants (such as Soma or Flexeril) ? Hypnotics (such as Ambien or Lunesta) ? Other prescription opioids KNOW YOUR OPTIONS Talk to your health care provider about ways to manage your pain that don?t involve prescription opioids. Some of these options may actually work better and have fewer risks and side effects. Options may include: ? Pain relievers such as acetaminophen, ibuprofen, and naproxen ? Some medication that are also used for depression or seizures ? Physical therapy and exercise ? Cognitive behavioral therapy, a psychological, goal-directed approach, in which patients learn how to modify physical, behavioral, and emotional triggers of pain and stress. IF YOU ARE PRESCRIBED OPIOIDS FOR PAIN: ? Never take opioids in greater amounts or more often than prescribed. ? Follow up with your primary health care provider. o Work together to create a plan on how to manage your pain. o Talk about ways to help manage your pain that don?t involve prescription opioids. o Talk about any and all concerns and side effects. ? Help prevent misuse and abuse o Never sell or share prescription opioids. o Never use another person?s prescription opioids. ? Store prescription opioids in a secure place and out of reach of others (this may include visitors, children, friends, and family). ? Safely dispose of unused prescription opioids: Find your community drug take-back program or your pharmacy mail-back program, or flush them down the toilet, following guidance from the Food and Drug Administration (www.fda.gov/Drugs/ ResourcesForYou). ? Visit www.cdc.gov/drugove rdose to learn about the risks of opioids abuse and overdose. ? If you believe you may be struggling with addiction, tell your health (more content not included)... Normal [facility] HEMATOLOGYOrdered By: Ericka Rivas on 02-13-2023 Anisocytosis Ql (Bld) Present (02/13/23 2:33 PM) Normal [facility] Erythrocyte distribution width (RBC) [Ratio] 19.0 % High 10.9 - 14.2 % [facility] Hematocrit (Bld) [Volume fraction] 36.7 % Normal 34.0 - 46.0 % [facility] Hemoglobin (Bld) [Mass/Vol] 11.9 g/dL Low 12.0 - 16.0 gm/dL [facility] Hypochromia Auto Ql (Bld) Present (02/13/23 2:33 PM) Normal [facility] MCH (RBC) [Entitic mass] 24.7 pg Low 27. 0 - 34.0 pg [facility] MCHC (RBC) [Mass/Vol] 32.5 g/dL Normal 31.4 - 36.0 gm/dL [facility] MCV (RBC) [Entitic vol] 75.9 fL Low 80.0 - 100.0 fL [facility] Microcytes Ql (Bld) Present (02/13/23 2:33 PM) Normal [facility] Morphology Cliff (Bld) [Interp] See Morphology (02/13/23 2:33 PM) Normal [facility] Ovalocytes LM Ql (Bld) Present (02/13/23 2:33 PM) Normal [facility] Platelet mean volume (Bld) [Entitic vol] 8.7 fL Normal 6.4 - 10.8 fL [facility] Platelets (Bld) [#/Vol] 326.0 E9/L Normal 150. 0 - 500.0 E9/L [facility] RBC (Bld) [#/Vol] 4.8 E12/L Normal 4.3 - 5.9 E12/L [facility] WBC corrected for nucl RBC Auto (Bld) [#/Vol] 8.3 E9/L Normal 4.0 - 11.0 E9/L [facility] HEMATOLOGYOrdered By: SYSTEM SYSTEM on 02-13-2023 Basophils/100 WBC (Bld) 0.6 % Normal 0.0 - 2.0 % [facility] Basophils/Leukocytes Auto (Bld) [Pure # fraction] 0.1 E9/L Normal 0.0 - 0.2 E9/L [facility] Eosinophils/100 WBC (Bld) 0.4 % Normal 0.0 - 8.0 % [facility] Eosinophils/Leukocytes Auto (Bld) [Pure # fraction] 0.0 E9/L Normal 0.0 - 0.5 E9/L [facility] Lymphocytes/100 WBC (Bld) 22.3 % Normal 14.0 - 50.0 % [facility] Lymphocytes/Leukocytes Auto (Bld) [Pure # fraction] 1.9 E9/L Normal 1.0 - 4.0 E9/L [facility] Monocytes/100 WBC (Bld) 8.5 % Normal 4.0 - 14.0 % [facility] Monocytes/Leukocytes Auto (Bld) [Pure # fraction] 0.7 E9/L Normal 0.2 - 1.0 E9/L [facility] Neutrophils/100 WBC (Bld) 68.2 % Normal 36.0 - 75.0 % [facility] Neutrophils/Leukocytes Auto (Bld) [Pure # fraction] 5.7 E9/L Normal 2.0 - 7.5 E9/L [facility] Magnesiumon 02-13-2023 Magnesium [Mass/Vol] 1.7 mg/dL Normal 1.3-2.4 [facility] Comment on above: Performed By: #### 1 [id number] #### [facility] [address] [place] [address] Morphon 02-13-2023 Anisocytosis Ql (Bld) Present Normal [facility] Comment on above: Order Comment: Order Added by Discern Expert. Performed By: #### 1 [id number] #### [facility] [address] [place] [address] Hypochromia Auto Ql (Bld) Present Normal [facility] Comment on above: Order Comment: Order Added by Discern Expert. Performed By: #### 1 [id number] #### [facility] [address] [place] [address] Microcytes Ql (Bld) Present Normal [facility] Comment on above: Order Comment: Order Added by Discern Expert. Performed By: #### 1 [id number] #### [facility] [address] [place] [address] Morphology Cliff (Bld) [Interp] See Morphology Normal [facility] Comment on above: Order Comment: Order Added by Discern Expert. Performed By: #### 1 [id number], [id number] #### [facility] [address] [place] [address] Ovalocytes LM Ql (Bld) Present Normal [facility] Comment on above: Order Comment: Order Added by Discern Expert. Performed By: #### 1 [id number] #### [facility] [address] [place] [address] UA With Cult Reflexon 2023 Bacteria LM Ql (Urine sed) 2+ /HPF Abnormal Trace [facility] Comment on above: Performed By: #### 2 [id number], [id number] #### [facility] [address] [place] [address] Bilirubin Ql (U) 2+ Abnormal Negative [facility] Comment on above: Performed By: #### 2 [id number], [id number] #### [facility] [address] [place] [address] Clarity (U) CLEAR Normal Clear [facility] Comment on above: Performed By: #### 2 [id number], [id number] #### [facility] [address] [place] [address] Color (U) DARK YELLO Abnormal Yellow [facility] Comment on above: Performed By: #### 2 [id number], [id number] #### [facility] [address] [place] [address] Epithelial cells.squamous LM.HPF (Urine sed) [#/Area] 5-8 Normal 0-2 [facility] Comment on above: Performed By: #### 2 [id number], [id number] #### [facility] [address] [place] [address] Glucose Test strip (U) [Mass/Vol] Negative Normal Negative [facility] Comment on above: Performed By: #### 2 [id number], [id number] #### [facility] [address] [place] [address] Hemoglobin Ql (U) Negative Normal Negative [facility] Comment on above: Performed By: #### 2 [id number], [id number] #### [facility] [address] [place] [address] Ketones (U) [Mass/Vol] 3+ Abnormal Negative [facility] Comment on above: Performed By: #### 2 [id number], [id number] #### [facility] [address] [place] [address] [place].plasma/[place].R BC (Bld) [Mass ratio] 4-20 Normal 0-3 [facility] Comment on above: Performed By: #### 2 [id number], [id number] #### [facility] [address] [place] [address] Mucus Ql (Urine sed) 2+ Normal [facility] Comment on above: Performed By: #### 2 [id number], [id number] #### [facility] [address] [place] [address] Nitrite Ql (U) Negative Normal Negative [facility] Comment on above: Performed By: #### 2 [id number], [id number] #### [facility] [address] [place] [address] pH (U) 6.0 [pH] Invalid Interpretation Code 5.0-9.0 [facility] Comment on above: Performed By: #### 2 [id number], [id number] #### [facility] [address] [place] [address] Protein (U) [Mass/Vol] 1+ Abnormal Negative [facility] Comment on above: Performed By: #### 2 [id number], [id number] #### [facility] [address] [place] [address] Specific gravity (U) [Rel density] >=1.030 Invalid Interpretation Code 1.005-1.030 [facility] Comment on above: Performed By: #### 2 [id number], [id number] #### [facility] [address] [place] [address] Type of Urine collection method Clean Catch Normal [facility] Comment on above: Performed By: #### 2 [id number], [id number] #### [facility] [address] [place] [address] Urobilinogen Qn (U) 2.0 {Karri'U}/dL Abnormal 0.0-1.0 [facility] Comment on above: Performed By: #### 2 [id number], [id number] #### [facility] [address] [place] [address] WBC Auto Ql (U) 1+ Abnormal Negative [facility] Comment on above: Performed By: #### 2 326161, [id number] #### [facility] [address] [place] [address] WBC LM.HPF (Urine sed) [#/Area] 6-15 Abnormal 0-5 [facility] Comment on above: Performed By: #### 2 [id number], [id number] #### [facility] [address] [place] [address] URINALYSISOrdered By: Maranda Muñoz on 02-13-2023 Bacteria LM Ql (Urine sed) 2+ /HPF Invalid Interpretation Code Trace/HPF [facility] UA Auto SS Bilirubin Ql (U) 2+ *ABN* (02/13/23 2:30 PM) Invalid Interpretation Code Negative [facility] UA Auto SS Clarity (U) Clear (02/13/23 2:30 PM) Normal Clear [facility] UA Auto SS Color (U) Dark Yellow *ABN* (02/13/23 2:30 PM) Invalid Interpretation Code Yellow [facility] UA Auto SS Epithelial cells.squamous LM.HPF (Urine sed) [#/Area] 5-8 /HPF Normal 0-2/HPF [facility] UA Aut o SS Glucose Test strip (U) [Mass/Vol] Negative (02/13/23 2:30 PM) Normal Negative [facility] UA Auto SS Hemoglobin Ql (U) Negative (02/13/23 2:30 PM) Normal Negative [facility] UA Auto SS Ketones (U) [Mass/Vol] 3+ *ABN* (02/13/23 2:30 PM) Invalid Interpretation Code Negative [facility] UA Auto SS [place].plasma/[place].R BC (Bld) [Mass ratio] 4-20 /HPF Normal 0-3/HPF [facility] UA Au to SS Mucus Ql (Urine sed) 2+ (02/13/23 2:30 PM) Normal [facility] UA Auto SS Nitrite Ql (U) Negative (02/13/23 2:30 PM) Normal Negative [facility] UA Auto SS pH (U) 6.0 *NA* (02/13/23 2:30 PM) Invalid Interpretation Code 5.0 - 9.0 [facility] UA Auto SS Protein (U) [Mass/Vol] 1+ *ABN* (02/13/23 2:30 PM) Invalid Interpretation Code Negative [facility] UA Auto SS Specific gravity (U) [Rel density] >=1.030 *NA* (02/13/23 2:30 PM) Invalid Interpretation Code 1.005 - 1.030 [facility] UA Auto SS UA Spec Desc Clean Catch (02/13/23 2:30 PM) Normal [facility] UA Auto SS Urobilinogen Qn (U) 2.2831862 {Karri'U}/dL Invalid Interpretation Code 0.0 - 1.0 EU/dL [facility] UA Auto SS WBC Auto Ql (U) 1+ *ABN* (02/13/23 2:30 PM) Invalid Interpretation Code Negative [facility] UA Auto SS WBC LM.HPF (Urine sed) [#/Area] 6-15 /HPF Invalid Interpretation Code 0-5/HPF [facility] UA Auto SS eGFRon 02-13-2023 GFR/1.73 sq M.predicted among non-blacks MDRD (S/P/Bld) [Vol rate/Area] mL/min/{1.73_m2} Normal >=59 [facility] Comment on above: Order Comment: Order added by Discern Expert. Performed By: #### 1 [id number] #### [facility] [address] [place] [address] C Urineon 01-28-2023 Bacteria identified Cx Nom (U) Microbiology PROCEDURE: Urine Culture [R1] SOURCE: U CleanCatch BODY SITE: COLLECTED DATE/TIME: 01/26/2023 20:39 EST RECEIVED DATE/TIME: 01/26/2023 20:55 EST START DATE/TIME: 01/26/2023 20:55 EST FREE TEXT SOURCE: Renny ROBERT, Donavan Mendez. Renny ROBERT, Donavan Mendez. FINAL REPORTS Final Report [] Verified Date/Time: 01/28/2023 07:52 EST 1,000 cfu/ml Mixed skin contaminants Performing Locations R1: This test was performed at: [facility], [address] [place] [address], [id number] , [place], Normal [facility] Comment on above: Performed By: #### 1 [id number] #### [facility] [address] [place] [address] ED Note-Physicianon 01-28-20 ED Note-Physician Basic Information Time Seen: Renny ROBERT, Donavan Cortes 01/26/2023 19:10 Chief Complaint pt states that she has been throwing up for almost 4 weeks now. also states that she was in the ER about 3 days ago and has not gotten any relief. C/o n/v and abominal. States she has not urinated since her ER visit. Pt also states she is 7 wks History of Present Illness 18-year-old female reports to the emergency department with a chief complaint of vomiting for multiple weeks now. Reports that she was in the emergency department 3 days ago, has not gotten any relief. Reports that she is nausea vomiting still. Reports little bit of abdominal cramping due to this. Reports that she did have an ultrasound at previous visit. Reports that she is 7 weeks . Reports he does follow-up with [employer] [employer] [facility]. Denies any fevers or chills. States that this is where she is never felt being . Reports has not been able to keep any fluids down. Review of Systems A 10 point review of systems is negative except as noted above. Medical and Surgical History: Reviewed and noted Social history: Lives at home Family History: Reviewed. Tobacco: denies Physical Exam Vitals & Measurements T: 36.9 ?C(Oral) HR: 74(Monitored) RR: 18 BP: 110/57 SpO2: 100% HT: 167 cm WT: 73.0 kg BMI: 26.18 General: The patient appears well and in no apparent distress. Patient is resting comfortably on bed. Afebrile Skin: Warm, dry, no pallor noted. Head: Normocephalic, atraumatic Neck: No JVD Eye: PERRLA, EOMI ENT: Moist mucus membranes Cardiovascular: Regular rate normal peripheral perfusion. Radial pulses +2 bilaterally Respiratory: No respiratory distress no accessory muscle use no obvious audible wheezing. Lungs clear to auscultation Chest Wall: no deformity Musculoskeletal: normal ROM, no deformity, no swelling GI: No obvious distention soft nontender nondistended no guarding rebounding or rigidity. No CVA tenderness Neurological: A&O moves all extremities equal strength and symmetry Psychiatric: Cooperative and appropriate Medical Decision Making MEDICAL DECISION MAKING Number and Complexity of Problems Differential Diagnosis: [] [facility] Data External documents reviewed: [] My EKG interpretation: [] My CT interpretation: [] My X-ray interpretation: [] My Ultrasound interpretation: [] Decision rules/scores evaluated: [] Discussed with: [] Treatment and Disposition ED Course: A 18-year-old female reports to the emergency department with a chief complaint of nausea and vomiting. Reports that she has been feeling cardioversion due to being . Reports, seen 3 days ago, had ultrasound performed. Due to this, an ultrasound was performed today. This meets MIPS criteria. Physical exam the patient rather benign. She states that she is not able to keep anything down. Due to this, we did do lab work. Lab reviewed and noted. No acute changes seen. Lab reviewed noted. No other signs of infection. Discussed that everything looks well. We did give patient Reglan as well as fluids, which did greatly improve her symptoms. Discussed follow-up with [employer] [employer]. Patient was understanding. Follow-up with your primary care provider in 3 to 5 days. If symptoms worsen, do not improve, or new symptoms arise please report back to emergency department for further evaluation. The patient was understanding and agreeable to plan moving forward. [ ] The patient is and presents with abdominal pain or vaginal bleeding. A trans-abdominal or trans-vaginal ultrasound was performed and the location is documented. [SATISFIES MIPS PERFORMANCE] [x] The patient is and presents with abdominal pain or vaginal bleeding. A trans-abdominal or trans-vaginal ultrasound was NOT performed because patient has a documented intrauterine and has been seen multiple times in the last 72 hours. (ex. patient has visited the ED multiple times in the last 72 hours, patient has documented intrauterine ) [MIPS PERFORMANCE EXCEPTION/EXCLUSION ] [ ] The patient is pregant and presents with abdominal pain or vaginal bleeding. A trans-abdominal or trans-vaginal ultrasound was NOT performed, no reason documented. [DOES NOT SATISFY MIPS PERFORMANCE] Shared decision making: [] Code status: [] Assessment/Plan Nausea and vomiting during (O21.9: Vomiting of , unspecified) Orders: metoclopramide, 10 mg = 2 mL, Injection, IV Push, Once, Stop date 01/26/23 19:21:00 EST, STAT, Start date 01/26/23 19:21:00 EST, 01/26/23 19:21:00 EST metoclopramide, 5 mg = 1 tab(s), Oral, QID, as needed for nausea, X 7 day(s), # 15 tab(s), Refills(s) 0 Sodium Chloride 0.9% intravenous solution, 1,000 mL, Soln-IV, IV, Once, Stop date 01/26/23 19:21:00 EST, STAT, Start date 01/26/23 19:21:00 EST, Infuse over 61, minute(s) ABO/Rh Automated Diff Basic Metabolic Panel Beta hCG Quantitative CBC w/ Auto Diff eGFR Extra Blue Tube (more content not included)... Normal [facility] Comment on above: Result Comment: Elec tronically Signed By: Donavan Lawson PA-C\.br\Date and Time Signed: 01/26/23 21:46 EST\.br\Electronically Co-Signed By: Damaris Jean Baptiste DO\.br\Date and Time Co-Signed: 01/27/23 01:31 EST ABO/Rhon 01-26-2023 ABO/Rh Positive Invalid Interpretation Code [facility] Comment on above: Performed By: #### 2 [id number] ####[facility] [id number] [place] [address] Auto Diffon 01-26-2023 Basophils/100 WBC (Bld) 0.4 % Normal 0.0-2.0 [facility] Comment on above: Order Comment: Order Added by Discern Expert. Performed By: #### 1 [id number] #### [facility] [address] [place] [address] Basophils/Leukocytes Auto (Bld) [Pure # fraction] 0.0 E9/L Normal 0.0-0.2 [facility] Comment on above: Order Comment: Order Added by Discern Expert. Performed By: #### 1 [id number] #### [facility] [address] [place] [address] Eosinophils/100 WBC (Bld) 0.5 % Normal 0.0-8.0 [facility] Comment on above: Order Comment: Order Added by Discern Expert. Performed By: #### 1 [id number] #### [facility] [address] [place] [address] Eosinophils/Leukocytes Auto (Bld) [Pure # fraction] 0.0 E9/L Normal 0.0-0.5 [facility] Comment on above: Order Comment: Order Added by Discern Expert. Performed By: #### 1 [id number] #### [facility] [address] [place] [address] Lymphocytes/100 WBC (Bld) 21.8 % Normal 14.0-50.0 [facility] Comment on above: Order Comment: Order Added by Discern Expert. Performed By: #### 1 [id number] #### [facility] [address] [place] [address] Lymphocytes/Leukocytes Auto (Bld) [Pure # fraction] 1.7 E9/L Normal 1.0-4.0 [facility] Comment on above: Order Comment: Order Added by Discern Expert. Performed By: #### 1 [id number] #### [facility] [address] [place] [address] Monocytes/100 WBC (Bld) 7.4 % Normal 4.0-14.0 [facility] Comment on above: Order Comment: Order Added by Discern Expert. Performed By: #### 1 [id number] #### [facility] [address] [place] [address] Monocytes/Leukocytes Auto (Bld) [Pure # fraction] 0.6 E9/L Normal 0.2-1.0 [facility] Comment on above: Order Comment: Order Added by Discern Expert. Performed By: #### 1 [id number] #### [facility] [address] [place] [address] Neutrophils/100 WBC (Bld) 69.9 % Normal 36.0-75.0 [facility] Comment on above: Order Comment: Order Added by Discern Expert. Performed By: #### 1 [id number] #### [facility] [address] [place] [address] Neutrophils/Leukocytes Auto (Bld) [Pure # fraction] 5.3 E9/L Normal 2.0-7.5 [facility] Comment on above: Order Comment: Order Added by Discern Expert. Performed By: #### 1 [id number] #### [facility] [address] [place] [address] BLOOD BANKOrdered By: Ericka Rivas on 01-26-2023 ABO/Rh Interp Positive Invalid Interpretation Code [facility] BB Subsection BMPon 01-26-2023 Anion gap [Moles/Vol] 16 mmol/L Normal 6-16 [facility] Comment on above: Performed By: #### 1 [id number] #### [facility] [address] [place] [address] BUN/Creat Ratio 17 No Units Normal 10-20 [facility] Comment on above: Performed By: #### 1 [id number] #### [facility] [address] [place] [address] Calcium [Mass/Vol] 9.5 mg/dL Normal 8.9-11.1 [facility] Comment on above: Performed By: #### 1 [id number] #### [facility] [address] [place] [address] Chloride [Moles/Vol] 103 mmol/L Normal 101-111 [facility] Comment on above: Performed By: #### 1 [id number] #### [facility] [address] [place] [address] CO2 [Moles/Vol] 21 mmol/L Normal 21-31 [facility] Comment on above: Performed By: #### 1 [id number] #### [facility] [address] [place] [address] Creatinine [Mass/Vol] 0.6 mg/dL Normal 0.5-1.3 [facility] Comment on above: Performed By: #### 1 [id number] #### [facility] [address] [place] [address] Glucose [Mass/Vol] 79 mg/dL Normal 55-199 [facility] Comment on above: Performed By: #### 1 [id number] #### [facility] [address] [place] [address] Potassium [Moles/Vol] 3.6 mmol/L Normal 3.5-5.3 [facility] Comment on above: Performed By: #### 1 [id number] #### [facility] [address] [place] [address] Sodium [Moles/Vol] 136 mmol/L Normal 135-145 [facility] Comment on above: Performed By: #### 1 [id number] #### [facility] [address] [place] [address] Urea nitrogen [Mass/Vol] 10 mg/dL Normal 5-21 [facility] Comment on above: Performed By: #### 1 [id number] #### [facility] [address] [place] [address] BhCG Quanton 01-26-2023 Beta hCG Qnt [id number] mIU/mL High 1-3 [facility] Comment on above: Result Comment: 'F N ON < 1 - 3' ' 0.2 - 1 WEEK = 5 TO 50' ' 1 - 2 WEEKS = 50 - 500' ' 2 - 3 WEEKS = 100 - 5000' ' 3 - 4 WEEKS = 500 - 65790' ' 4 - 5 WEEKS = 1000 - 75367' ' 5 - 6 WEEKS = 78986 - 898875' ' 6 - 8 WEEKS = 58393 - 796037' ' 8 - 12 WEEKS = 77079 - 879802' Performed By: #### 1 [id number] #### [facility] [address] [place] [address] CBC w/ Auto Diffon Erythrocyte distribution width (RBC) [Ratio] 18.0 % High 10.9-14.2 [facility] Comment on above: Performed By: #### 1 [id number] #### [facility] [address] [place] [address] Hematocrit (Bld) [Volume fraction] 35.9 % Normal 34.0-46.0 [facility] Comment on above: Performed By: #### 1 [id number] #### [facility] [address] [place] [address] Hemoglobin (Bld) [Mass/Vol] 11.8 g/dL Low 12.0-16.0 [facility] Comment on above: Performed By: #### 1 [id number] #### [facility] [address] [place] [address] MCH (RBC) [Entitic mass] 24.1 pg Low 27.0-34.0 [facility] Comment on above: Performed By: #### 1 [id number] #### [facility] [address] [place] [address] MCHC (RBC) [Mass/Vol] 32.8 g/dL Normal 31.4-36.0 [facility] Comment on above: Performed By: #### 1 [id number] #### [facility] [address] [place] [address] MCV (RBC) [Entitic vol] 73.6 fL Low 80.0-100.0 [facility] Comment on above: Performed By: #### 1 [id number] #### [facility] [address] [place] [address] Platelet mean volume (Bld) [Entitic vol] 8.4 fL Normal 6.4-10.8 [facility] Comment on above: Performed By: #### 1 [id number] #### [facility] [address] [place] [address] Platelets (Bld) [#/Vol] 304.0 E9/L Normal 150.0-500.0 [facility] Comment on above: Performed By: #### 1 [id number] #### [facility] [address] [place] [address] RBC (Bld) [#/Vol] 4.9 E12/L Normal 4.3-5.9 [facility] Comment on above: Performed By: #### 1 [id number] #### [facility] [address] [place] [address] WBC corrected for nucl RBC Auto (Bld) [#/Vol] 7.6 E9/L Normal 4.0-11.0 [facility] Comment on above: Performed By: #### 1 [id number] #### [facility] [address] [place] [address] CHEMISTRYOrdered By: SYSTEM SYSTEM on 01-26-2023 Anion gap [Moles/Vol] 16 mmol/L Normal 6 - 16 mEq/L R emisol Chem Calcium [Mass/Vol] 9.5 mg/dL Normal 8.9 - 11. 1 mg/dL [facility] Chloride [Moles/Vol] 103 mmol/L Normal 101 - 1 11 mmol/L [facility] CO2 [Moles/Vol] 21 mmol/L Normal 21 - 31 mmol/L [facility] Creatinine [Mass/Vol] 0.6 mg/dL Normal 0.5 - 1.3 mg/dL [facility] eGFR mL/min/1.73 m2 Normal >=59mL/min/1 .73 m2 [facility] Glucose [Mass/Vol] 79 mg/dL Normal 55 - 199 mg/dL [facility] HCG.beta subunit Qn [id number] m[IU]/mL High 1 - 3 mIU/m L [facility] Comment on above: Result Comment: 'F N ON < 1 - 3' ' 0.2 - 1 WEEK = 5 TO 50' ' 1 - 2 WEEKS = 50 - 500' ' 2 - 3 WEEKS = 100 - 5000' ' 3 - 4 WEEKS = 500 - 95848' ' 4 - 5 WEEKS = 1000 - 01018' ' 5 - 6 WEEKS = 83860 - 526968' ' 6 - 8 WEEKS = 03382 - 805598' ' 8 - 12 WEEKS = 83676 - 640224' Potassium [Moles/Vol] 3.6 mmol/L Normal 3.5 - 5.3 mmol/L [facility] Sodium [Moles/Vol] 136 mmol/L Normal 135 - 145 mmol/L [facility] Urea nitrogen [Mass/Vol] 10 mg/dL Normal 5 - 21 mg/d L [facility] Urea nitrogen/Creatinine [Mass ratio] 17 mg/mg Normal 10 - 20 [facility] Consent for Treatmenton 01-06 Consent for Treatment [id number] Normal [facility] Discharge Instructionson Discharge Instructions [id number] Normal [facility] ED Clinical Summaryon 2022 ED Clinical Summary [place] [id number] ED Clinical Summary Person Information Name: JORDIN TYLER Kristan/[facility] Age: 18 Years : 2005 Sex: Female Language: Guatemalan PCP: MARK STONE Marital Status: Single Phone: [phone] Visit Id: Visit Reason: Abdominal pain - ; Vomiting - ; Nausea; n/v/dizzy Speciality: Acuity: 3 Enc Type: Emergency Med Service: Emergency Arrival: 01/26/2023 19:05:49 Discharge: 01/26/2023 21:19:12 LOS: 000 02:14 Checkin: 01/26/2023 19:05:49 Checkout: 01/26/2023 21:19:12 Dispo Type: Home (Routine DC) EVENTS: Event Name Event Status Request Date/Time Start Date/Time Complete Date/Time Arrive Complete 01/26/2023 19:05:49 01/26/2023 19:05:49 01/26/2023 19:05:49 Document Home Meds Request 01/26/2023 19:05:49 Triage Complete 01/26/2023 19:05:49 01/26/2023 19:19:14 01/26/2023 19:19:14 Bed Assign Complete 01/26/2023 19:09:46 01/26/2023 19:09:46 01/26/2023 19:09:46 Dr Exam Complete 01/26/2023 19:09:46 01/26/2023 19:10:24 01/26/2023 19:10:24 RN Exam Complete 01/26/2023 19:09:46 01/26/2023 19:23:48 01/26/2023 19:23:48 Registration Complete 01/26/2023 19:10:24 01/26/2023 19:37:52 01/26/2023 19:37:52 Dr Exam Complete 01/26/2023 19:13:03 01/26/2023 19:13:03 01/26/2023 19:13:03 Meds Admin Complete 01/26/2023 19:21:21 01/26/2023 20:36:12 Pending Labs Complete 01/26/2023 19:21:21 01/26/2023 20:55:22 Blood Collect Request 01/26/2023 19:21:21 Lab Complete 01/26/2023 19:21:21 01/26/2023 20:55:22 Urine Collect Complete 01/26/2023 19:21:21 01/26/2023 20:55:22 Meds Admin Complete 01/26/2023 19:21:49 01/26/2023 19:39:33 Reg Complete Request 01/26/2023 19:37:52 Reg Bed Request Complete 01/26/2023 19:37:52 01/26/2023 19:37:52 01/26/2023 19:37:52 Pending Labs Complete 01/26/2023 19:42:11 01/26/2023 19:42:11 01/26/2023 20:02:38 Lab Complete 01/26/2023 19:42:11 01/26/2023 19:42:11 01/26/2023 20:02:38 Pending Labs Complete 01/26/2023 19:48:20 01/26/2023 19:48:20 01/26/2023 19:48:25 Lab Complete 01/26/2023 19:48:20 01/26/2023 19:48:20 01/26/2023 19:48:25 Pending Labs Complete 01/26/2023 20:28:59 01/26/2023 20:28:59 01/26/2023 20:28:59 Pending Labs Inlab 01/26/2023 20:55:23 01/26/2023 20:55:23 Lab Inlab 01/26/2023 20:55:23 01/26/2023 20:55:23 Discharge Complete 01/26/2023 21:05:50 01/26/2023 21:19:18 01/26/2023 21:19:18 Transfer Complete 01/26/2023 21:19:18 01/26/2023 21:19:18 01/26/2023 21:19:18 ADDRESS: [address] [id number] PHYS DOC NOTES: MEDICAL INFORMATION: Prescriptions Given: New Medications Printed Prescriptions metoclopramide (Reglan 5 mg Tab) 1 Tablets By Mouth 4 times a day for 7 Days. as needed for nausea. Refills: 0. Medications to Continue with No Changes Other Medications multivitamin, ( Multivitamins with Folic Acid 1 mg Tab) 1 Tablets By Mouth every day. Refills: 0. ondansetron (Zofran ODT 4 mg Tab-Dis) 1 Tablets By Mouth 3 times a day. Refills: 0. promethazine (promethazine 25 mg Supp) 1 Suppositories By rectum every 6 hours as needed for nausea/vomiting. Refills: 0. PATIENT EDUCATION INFORMATION: Instructions: Morning Sickness; Nausea and Vomiting, Adult, Ftak-[id number] Follow up: With: Address: When: [address] [facility] [address] [address] [facility] (1) In 3 days 01/29/2023 Comments: Follow-up with your primary care provider in 3 to 5 days. If symptoms worsen, do not improve, or new symptoms arise please report back to emergency department for further evaluation. With: Address: When: MARK STONE In 3 days DIAGNOSIS: Nausea and vomiting during Normal [facility] ED Patient Education Noteon 01-26-2023 ED Patient Education Note Gastroenterology Nausea and Vomiting, Adult Nausea is feeling that you have an upset stomach and that you are about to vomit. Vomiting is when food in your stomach forcefully comes out of your mouth. Vomiting can make you feel weak. If you vomit, or if you are not able to drink enough fluids, you may not have enough water in your body (get dehydrated). If you do not have enough water in your body, you may: ? Feel tired. ? Feel thirsty. ? Have a dry mouth. ? Have cracked lips. ? Pee (urinate) less often. Older adults and people with other diseases or a weak body defense system (immune system) are at higher risk for not having enough water in the body. If you feel like you may vomit or you vomit, it is important to follow instructions from your doctor about how to take care of yourself. Follow these instructions at home: Watch your symptoms for any changes. Tell your doctor about them. Eating and drinking ? Take an ORS (oral rehydration solution). This is a drink that is sold at pharmacies and stores. ? Drink clear fluids in small amounts as you are able, such as: ? Water. ? Ice chips. ? Fruit juice that has water added (diluted fruit juice). ? Low-calorie sports drinks. ? Eat bland, adyx-gy-orrgzk foods in small amounts as you are able, such as: ? Bananas. ? Applesauce. ? Rice. ? Low-fat (lean) meats. ? [place]. ? Crackers. ? Avoid drinking fluids that have a lot of sugar or caffeine in them. This includes energy drinks, sports drinks, and soda. ? Avoid alcohol. ? Avoid spicy or fatty foods. General instructions ? Take xyim-kym-topmkfc and prescription medicines only as told by your doctor. ? Drink enough fluid to keep your pee (urine) pale yellow. ? Wash your hands often with soap and water for at least 20 seconds. If you cannot use soap and water, use hand morning news anchor. ? Make sure that everyone in your home washes their hands well and often. ? Rest at home until you feel better. ? Watch your condition for any changes. ? Take slow and deep breaths when you feel like you may vomit. ? Keep all follow-up visits. Contact a doctor if: ? Your symptoms get worse. ? You have new symptoms. ? You have a fever. ? You cannot drink fluids without vomiting. ? You feel like you may vomit for more than 2 days. ? You feel light-headed or dizzy. ? You have a headache. ? You have muscle cramps. ? You have a rash. ? You have pain while peeing. Get help right away if: ? You have pain in your chest, neck, arm, or jaw. ? You feel very weak or you faint. ? You vomit again and again. ? You have vomit that is bright red or looks like black coffee grounds. ? You have bloody or black poop (stools) or poop that looks like tar. ? You have a very bad headache, a stiff neck, or both. ? You have very bad pain, cramping, or bloating in your belly (abdomen). ? You have trouble breathing. ? You are breathing very quickly. ? Your heart is beating very quickly. ? Your skin feels cold and clammy. ? You feel confused. ? You have signs of losing too much water in your body, such as: ? Dark pee, very little pee, or no pee. ? Cracked lips. ? Dry mouth. ? Sunken eyes. ? Sleepiness. ? Weakness. These symptoms may be an emergency. Get help right away. Call 911. ? Do not wait to see if the symptoms will go away. ? Do not drive yourself to the hospital. Summary ? Nausea is feeling that you have an upset stomach and that you are about to vomit. Vomiting is when food in your stomach comes out of your mouth. ? Follow instructions from your doctor about eating and drinking. ? Take giqo-oig-ybvmsro and prescription medicines only as told by your doctor. ? Contact your doctor if your symptoms get worse or you have new symptoms. ? Keep all follow-up visits. This information is not intended to replace advice given to you by your health care provider. Make sure you discuss any questions you have with your health care provider. Document Revised: 07/29/2021 Document Reviewed: 07/29/2021 [employer] Patient Education ? 2022 [employer]. Obstetrics and Gynecology Morning Sickness Morning sickness is when a woman feels nauseous during . This nauseous feeling may or may not come with vomiting. It often occurs in the morning, but it can be a problem at any time of day. Morning sickness is most common during the first trimester. In some cases, it may continue throughout . Although morning sickness is unpleasant, it is usually harmless unless the woman develops severe and continual vomiting (hyperemesis gravidarum), a condition that requires more intense treatment. What are the causes? The exact cause of this condition is not known, but it seems to be related to normal hormonal changes that occur in . What increases the risk? You are more likely to develop this condition i (more content not included)... Normal [facility] ED Patient Summaryon 023 ED Patient Summary [address] [address] Patient Discharge Instructions Person Information Name: JORDIN TYLER Age: 18 Years Arrival Date: 01/26/2023 19:05:49 Discharge Diagnosis: Nausea and vomiting during Primary Care Physician: MARK STONE Provider Information Primary Provider: Damaris Jean Baptiste DO Advanced Flight Physician:None The exam and treatment you received in the Emergency Department were for an urgent problem and are not intended as complete care. It is important that you follow up with a doctor, nurse practitioner, or physician?s assistant chief nursing officer for ongoing care. If your symptoms become worse or you do not improve as expected and you are unable to reach your usual health care provider, you should return to the Emergency Department. We are available 24 hours a day. JORDIN TYLER has been given the following list of patient education materials, prescriptions and follow-up instructions: Follow-up Instructions: With: Address: When: Ras Miller [address] [place] [address] [facility] (1) In 3 days 01/29/2023 Comments: Follow-up with your primary care provider in 3 to 5 days. If symptoms worsen, do not improve, or new symptoms arise please report back to emergency department for further evaluation. With: Address: When: MARK STONE In 3 days In the event that this physician does not participate in your insurance network, please consult with your insurance company to find a nearby participating provider. Patient Education Materials: Morning Sickness; Nausea and Vomiting, Adult, Givb-eg-Temn A MESSAGE TO ALL PATIENTS REGARDING OPIOIDS PRESCRIPTION OPIOIDS: WHAT YOU NEED TO KNOW Prescription opioids can be used to help relieve lhxzfxln-nr-dbhurh pain and are often prescribed following a surgery or injury, or for certain health conditions. These medications can be an important part of the treatment but also come with serious risks. It is important to work with your healthcare provider to make sure you are getting the safest, most effective care. WHAT ARE THE RISKS AND SIDE EFFECTS OF OPIOID USE? Prescription opioids carry serious risks of addiction and overdose, especially with prolonged use. An opioid overdose, often marked by slowed breathing, can cause sudden . The use of prescription opioids can have a number of side effects as well, even when taken as directed: ? Tolerance?meaning you might need to take more of the medication for the same pain relief ? Physical dependence?meaning you have symptoms of withdrawal when a medication is stopped ? Increased sensitivity to pain ? Constipation ? Nausea, vomiting, and dry mouth ? Sleepiness and dizziness ? Confusion ? Depression ? Low levels of testosterone that can result in lower sex drive, energy, and strength ? Itching and sweating RISKS ARE GREATER WITH: ? History of drug misuse, substance use disorder, or overdose ? Mental health conditions (such as depression or anxiety) ? Sleep apnea ? Older age (65 years and older) ? Avoid alcohol while taking prescription opioids. Also, unless specifically advised by your health care provider, medications to avoid include: ? Benzodiazepines (such as Xanax or Valium) ? Muscle relaxants (such as Soma or Flexeril) ? Hypnotics (such as Ambien or Lunesta) ? Other prescription opioids KNOW YOUR OPTIONS Talk to your health care provider about ways to manage your pain that don?t involve prescription opioids. Some of these options may actually work better and have fewer risks and side effects. Options may include: ? Pain relievers such as acetaminophen, ibuprofen, and naproxen ? Some medication that are also used for depression or seizures ? Physical therapy and exercise ? Cognitive behavioral therapy, a psychological, goal-directed approach, in which patients learn how to modify physical, behavioral, and emotional triggers of pain and stress. IF YOU ARE PRESCRIBED OPIOIDS FOR PAIN: ? Never take opioids in greater amounts or more often than prescribed. ? Follow up with your primary health care provider. o Work together to create a plan on how to manage your pain. o Talk about ways to help manage your pain that don?t involve prescription opioids. o Talk about any and all concerns and side effects. ? Help prevent misuse and abuse o Never sell or share prescription opioids. o Never use another person?s prescription opioids. ? Store prescription opioids in a secure place and out of reach of others (this may include visitors, children, friends, and family). ? Safely dispose of unused prescription opioids: Find your community drug take-back program or your pharmacy mail-back program, or flush them down the toilet, following guidance from the Food and Drug Administration (www.fda.gov/Drugs/ Reso (more content not included)... Normal [facility] HEMATOLOGYOrdered By: SYSTEM SYSTEM on 01-26-2023 Basophils/100 WBC (Bld) 0.4 % Normal 0.0 - 2.0 % [facility] HemeAutoSS Basophils/Leukocytes Auto (Bld) [Pure # fraction] 0.0 E9/L Normal 0.0 - 0.2 E9/L [facility] HemeAutoSS Eosinophils/100 WBC (Bld) 0.5 % Normal 0.0 - 8.0 % [facility] HemeAutoSS Eosinophils/Leukocytes Auto (Bld) [Pure # fraction] 0.0 E9/L Normal 0.0 - 0.5 E9/L [facility] HemeAutoSS Lymphocytes/100 WBC (Bld) 21.8 % Normal 14.0 - 50.0 % [facility] HemeAutoSS Lymphocytes/Leukocytes Auto (Bld) [Pure # fraction] 1.7 E9/L Normal 1.0 - 4.0 E9/L [facility] HemeAutoSS Monocytes/100 WBC (Bld) 7.4 % Normal 4.0 - 14.0 % [facility] HemeAutoSS Monocytes/Leukocytes Auto (Bld) [Pure # fraction] 0.6 E9/L Normal 0.2 - 1.0 E9/L [facility] HemeAutoSS Neutrophils/100 WBC (Bld) 69.9 % Normal 36.0 - 75.0 % [facility] HemeAutoSS Neutrophils/Leukocytes Auto (Bld) [Pure # fraction] 5.3 E9/L Normal 2.0 - 7.5 E9/L [facility] HemeAutoSS HEMATOLOGYOrdered By: Ericka Rivas on 01-26-2023 Erythrocyte distribution width (RBC) [Ratio] 18.0 % High 10.9 - 14.2 % [facility] HemeAutoSS Hematocrit (Bld) [Volume fraction] 35.9 % Normal 34.0 - 46.0 % [facility] HemeAutoSS Hemoglobin (Bld) [Mass/Vol] 11.8 g/dL Low 12.0 - 16.0 gm/dL [facility]eAutoSS MCH (RBC) [Entitic mass] 24.1 pg Low 27. 0 - 34.0 pg [facility] MCHC (RBC) [Mass/Vol] 32.8 g/dL Normal 31.4 - 36.0 gm/dL [facility] MCV (RBC) [Entitic vol] 73.6 fL Low 80.0 - 100.0 fL [facility] Platelet mean volume (Bld) [Entitic vol] 8.4 fL Normal 6.4 - 10.8 fL [facility] HemeAutoSS Platelets (Bld) [#/Vol] 304.0 E9/L Normal 150. 0 - 500.0 E9/L [facility] HemeAutoSS RBC (Bld) [#/Vol] 4.9 E12/L Normal 4.3 - 5.9 E12/L [facility]eAutoSS WBC corrected for nucl RBC Auto (Bld) [#/Vol] 7.6 E9/L Normal 4.0 - 11.0 E9/L [facility] HemeAutoSS UA With Cult Reflexon 2022 Bacteria LM Ql (Urine sed) TRACE Normal Trace [facility] Comment on above: Performed By: #### 1 [id number] #### [facility] [address] [place] [address] Bilirubin Ql (U) Negative Normal Negative [facility] Comment on above: Performed By: #### 1 [id number] #### [facility] [address] [place] [address] Clarity (U) CLEAR Normal Clear [facility] Comment on above: Performed By: #### 1 [id number] #### [facility] [address] [place] [address] Color (U) YELLOW Normal Yellow [facility] Comment on above: Performed By: #### 1 [id number] #### [facility] [address] [place] [address] Epithelial cells.squamous LM.HPF (Urine sed) [#/Area] 5-8 Normal 0-2 [facility] Comment on above: Performed By: #### 1 [id number] #### [facility] [address] [place] [address] Glucose Test strip (U) [Mass/Vol] Negative Normal Negative [facility] Comment on above: Performed By: #### 1 [id number] #### [facility] [address] [place] [address] Hemoglobin Ql (U) Negative Normal Negative [facility] Comment on above: Performed By: #### 1 [id number] #### [facility] [address] [place] [address] Ketones (U) [Mass/Vol] 3+ Abnormal Negative [facility] Comment on above: Performed By: #### 1 [id number] #### [facility] [address] [place] [address] [place].plasma/[place].R BC (Bld) [Mass ratio] 0-3 Normal 0-3 [facility] Comment on above: Performed By: #### 1 [id number] #### [facility] [address] [place] [address] Mucus Ql (Urine sed) TRACE Normal [facility] Comment on above: Performed By: #### 1 [id number] #### [facility] [address] [place] [address] Nitrite Ql (U) Negative Normal Negative [facility] Comment on above: Performed By: #### 1 [id number] #### [facility] [address] [place] [address] pH (U) 6.0 [pH] Invalid Interpretation Code 5.0-9.0 [facility] Comment on above: Performed By: #### 1 [id number] #### [facility] [address] [place] [address] Protein (U) [Mass/Vol] TRACE Abnormal Negative [facility] Comment on above: Performed By: #### 1 [id number] #### [facility] [address] [place] [address] Specific gravity (U) [Rel density] >=1.030 Invalid Interpretation Code 1.005-1.030 [facility] Comment on above: Performed By: #### 1 [id number] #### [facility] [address] [place] [address] Type of Urine collection method Clean Catch Normal [facility] Comment on above: Performed By: #### 1 [id number] #### [facility] [address] [place] [address] Urobilinogen Qn (U) 0.2 {Karri'U}/dL Normal 0.0-1.0 [facility] Comment on above: Performed By: #### 1 [id number] #### [facility] [address] [place] [address] WBC Auto Ql (U) Negative Normal Negative [facility] Comment on above: Performed By: #### 1 [id number] #### [facility] [address] [place] [address] WBC LM.HPF (Urine sed) [#/Area] 6-15 Abnormal 0-5 [facility] Comment on above: Performed By: #### 1 [id number] #### [facility] [address] [place] [address] URINALYSISOrdered By: Raman Trejo on 01-26-2023 Bacteria LM Ql (Urine sed) Trace /HPF Normal Trace/HPF [facility] Auto SS Bilirubin Ql (U) Negative (01/26/23 8:39 PM) Normal Negative [facility] Auto SS Clarity (U) Clear (01/26/23 8:39 PM) Normal Clear [facility] UA Auto SS Color (U) Yellow (01/26/23 8:39 PM) Normal Yellow [facility] Auto SS Epithelial cells.squamous LM.HPF (Urine sed) [#/Area] 5-8 /HPF Normal 0-2/HPF [facility] UA Aut o SS Glucose Test strip (U) [Mass/Vol] Negative (01/26/23 8:39 PM) Normal Negative [facility] UA Auto SS Hemoglobin Ql (U) Negative (01/26/23 8:39 PM) Normal Negative [facility] UA Auto SS Ketones (U) [Mass/Vol] 3+ *ABN* (01/26/23 8:39 PM) Invalid Interpretation Code Negative [facility] UA Auto SS [place].plasma/[place].R BC (Bld) [Mass ratio] 0-3 /HPF Normal 0-3/HPF [facility] UA Au to SS Mucus Ql (Urine sed) Trace (01/26/23 8:39 PM) Normal [facility] UA Auto SS Nitrite Ql (U) Negative (01/26/23 8:39 PM) Normal Negative [facility] UA Auto SS pH (U) 6.0 *NA* (01/26/23 8:39 PM) Invalid Interpretation Code 5.0 - 9.0 [facility] UA Auto SS Protein (U) [Mass/Vol] Trace *ABN* (01/26/23 8:39 PM) Invalid Interpretation Code Negative [facility] UA Auto SS Specific gravity (U) [Rel density] >=1.030 *NA* (01/26/23 8:39 PM) Invalid Interpretation Code 1.005 - 1.030 [facility] UA Auto SS UA Spec Desc Clean Catch (01/26/23 8:39 PM) Normal [facility] UA Auto SS Urobilinogen Qn (U) 0.8899792 {Karri'U}/dL Normal 0.0 - 1.0 EU/dL [facility] UA Auto SS WBC Auto Ql (U) Negative (01/26/23 8:39 PM) Normal Negative [facility] UA Auto SS WBC LM.HPF (Urine sed) [#/Area] 6-15 /HPF Invalid Interpretation Code 0-5/HPF [facility] UA Auto SS eGFRon 01-26-2023 GFR/1.73 sq M.predicted among non-blacks MDRD (S/P/Bld) [Vol rate/Area] mL/min/{1.73_m2} Normal >=59 [facility] Comment on above: Order Comment: Order added by Discern Expert. Performed By: #### 1 [id number] #### [facility] [address] [place] [address] Auto Diffon 01-23-2023 Basophils/100 WBC (Bld) 0.5 % Normal 0.0-2.0 [facility] Comment on above: Order Comment: Order Added by Discern Expert. Performed By: #### 1 [id number], [id number] #### [facility] [address] [place] [address] Basophils/Leukocytes Auto (Bld) [Pure # fraction] 0.0 E9/L Normal 0.0-0.2 [facility] Comment on above: Order Comment: Order Added by Discern Expert. Performed By: #### 1 [id number], [id number] #### [facility] [address] [place] [address] Eosinophils/100 WBC (Bld) 0.7 % Normal 0.0-8.0 [facility] Comment on above: Order Comment: Order Added by [place] Expert. Performed By: #### 1 [id number], [id number] #### [facility] [address] [place] [address] Eosinophils/Leukocytes Auto (Bld) [Pure # fraction] 0.0 E9/L Normal 0.0-0.5 [facility] Comment on above: Order Comment: Order Added by [place] Expert. Performed By: #### 1 [id number], [id number] #### [facility] [address] [place] [address] Lymphocytes/100 WBC (Bld) 21.4 % Normal 14.0-50.0 [facility] Comment on above: Order Comment: Order Added by [place] Expert. Performed By: #### 1 [id number], [id number] #### [facility] [address] [place] [address] Lymphocytes/Leukocytes Auto (Bld) [Pure # fraction] 1.3 E9/L Normal 1.0-4.0 [facility] Comment on above: Order Comment: Order Added by [place] Expert. Performed By: #### 1 [id number], [id number] #### [facility] [address] [place] [address] Monocytes/100 WBC (Bld) 7.4 % Normal 4.0-14.0 [facility] Comment on above: Order Comment: Order Added by Discern Expert. Performed By: #### 1 [id number], [id number] #### [facility] [address] [place] [address] Monocytes/Leukocytes Auto (Bld) [Pure # fraction] 0.4 E9/L Normal 0.2-1.0 [facility] Comment on above: Order Comment: Order Added by Discern Expert. Performed By: #### 1 [id number], [id number] #### [facility] [address] [place] [address] Neutrophils/100 WBC (Bld) 70.0 % Normal 36.0-75.0 [facility] Comment on above: Order Comment: Order Added by Discern Expert. Performed By: #### 1 [id number], [id number] #### [facility] [address] [place] [address] Neutrophils/Leukocytes Auto (Bld) [Pure # fraction] 4.2 E9/L Normal 2.0-7.5 [facility] Comment on above: Order Comment: Order Added by Discern Expert. Performed By: #### 1 [id number], [id number] #### [facility] [address] [place] [address] B hCG Qualon 01-23-2023 Beta HCG ( test) Ql Positive Normal [facility] Comment on above: Performed By: #### 2 066431, 19704650, 4591503, 9682978, 52086480, 3469217, 7041727, 8994485, 24325609 ####[facility] [address] [place] [address] BMPon 01-23-2023 Anion gap [Moles/Vol] 14 mmol/L Normal 6-16 [facility] Comment on above: Performed By: #### 2 362728, 17160013, 3663218, 5931908, 14578826, 3662768, 5184768, 4729066, 43599033 ####[facility] [address] [place] [address] BUN/Creat Ratio 18 No Units Normal 10-20 [facility] Comment on above: Performed By: #### 2 529762, 21372313, 9311258, 8029211, 20542970, 0219360, 0372556, 4953889, 23716146 ####[facility] [address] [place] [address] Calcium [Mass/Vol] 9.3 mg/dL Normal 8.9-11.1 [facility] Comment on above: Performed By: #### 2 863414, 96859160, 5849543, 5149900, 21792517, 5907782, 1003326, 1501481, 86930336 ####[facility] [address] [place] [address] Chloride [Moles/Vol] 103 mmol/L Normal 101-111 [facility] Comment on above: Performed By: #### 2 543912, 41334330, 2737942, 5354211, 68219229, 4879866, 2719143, 7435221, 48134025 ####[facility] [address] [place] [address] CO2 [Moles/Vol] 23 mmol/L Normal 21-31 [facility] Comment on above: Performed By: #### 2 861278, 97393278, 3199691, 6641396, 30337274, 1619152, 8382097, 4447918, 21744290 ####[facility] [address] [place] [address] Creatinine [Mass/Vol] 0.6 mg/dL Normal 0.5-1.3 [facility] Comment on above: Performed By: #### 2 865894, 80903985, 9324153, 6108706, 95425199, 5371669, 1376074, 6257025, 38995212 ####[facility] [address] [place] [address] Glucose [Mass/Vol] 84 mg/dL Normal 55-199 [facility] Comment on above: Performed By: #### 2 486240, 00592979, 2883429, 9351864, 01966279, 4454965, 4869533, 3066143, 34587641 ####[facility] [address] [place] [address] Potassium [Moles/Vol] 3.5 mmol/L Normal 3.5-5.3 [facility] Comment on above: Performed By: #### 2 053255, 98727776, 2278700, 9217662, 88291850, 7657723, 8216221, 4321407, 34124439 ####[facility] [address] [place] [address] Sodium [Moles/Vol] 136 mmol/L Normal 135-145 [facility] Comment on above: Performed By: #### 2 729638, 03459916, 6664032, 7344317, 90539135, 5872160, 5527446, 0300223, 45540628 ####[facility] [address] [place] [address] Urea nitrogen [Mass/Vol] 11 mg/dL Normal 5-21 [facility] Comment on above: Performed By: #### 2 919984, 97368646, 7510594, 7973717, 86555710, 6217738, 9303973, 3214662, 40830801 ####[facility] [address] [place] [address] BhCG Quanton 01-23-2023 [place] [address] mIU/mL High 1-3 [facility] Comment on above: Result Comment: 'F N ON < 1 - 3' ' 0.2 - 1 WEEK = 5 TO 50' ' 1 - 2 WEEKS = 50 - 500' ' 2 - 3 WEEKS = 100 - 5000' ' 3 - 4 WEEKS = 500 - 25788' ' 4 - 5 WEEKS = 1000 - 69264' ' 5 - 6 WEEKS = 54422 - 282506' ' 6 - 8 WEEKS = 43924 - 190381' ' 8 - 12 WEEKS = 05735 - 240036' Performed By: #### 1 5767215, 9031610 #### [facility] [address] [place] [address] CBC w/ Auto Diffon 3 Erythrocyte distribution width (RBC) [Ratio] 17.6 % High 10.9-14.2 [facility] Comment on above: Performed By: #### 2 175241, 17341674, 4331830, 5830397, 92797626, 3904833, 4890526, 3605593, 00739964 ####[facility] [address] [place] [address] Hematocrit (Bld) [Volume fraction] 33.9 % Low 34.0-46.0 [facility] Comment on above: Performed By: #### 2 607686, 24496188, 2908920, 7329780, 11340195, 6334772, 0889280, 0478838, 84472415 ####[facility] [address] [place] [address] Hemoglobin (Bld) [Mass/Vol] 11.3 g/dL Low 12.0-16.0 [facility] Comment on above: Performed By: #### 2 935992, 56291653, 1071819, 6603226, 85569753, 7131967, 3713246, 8629297, 78660705 ####[facility] [address] [place] [address] MCH (RBC) [Entitic mass] 24.5 pg Low 27.0-34.0 [facility] Comment on above: Performed By: #### 2 167210, 99504171, 7571231, 8882183, 78117263, 4049227, 0381320, 8542887, 97564050 ####[facility] [address] [place] [address] MCHC (RBC) [Mass/Vol] 33.3 g/dL Normal 31.4-36.0 [facility] Comment on above: Performed By: #### 2 905287, 43681472, 4917612, 8758793, 57076748, 9341738, 4031478, 9291603, 86354456 ####[address] [address] MCV (RBC) [Entitic vol] 73.6 fL Low 80.0-100.0 [facility] Comment on above: Performed By: #### 2 [id number], [id number], 3810662, 7210519, [id number], 5300372, 9031778, 8097051, [id number] ####[facility] [address] [place] [address] Platelet mean volume (Bld) [Entitic vol] 8.1 fL Normal 6.4-10.8 [facility] Comment on above: Performed By: #### 2 654107, [id number], 3248183, 4478016, 63589497, 9671620, 2973742, 0708884, [id number] ####[address] [address] Platelets (Bld) [#/Vol] 306.0 E9/L Normal 150.0-500.0 [facility] Comment on above: Performed By: #### 2 520507, 59364177, 6862818, 9653395, 53814140, 1239685, 9185167, 2827857, [id number] ####[address] [address] RBC (Bld) [#/Vol] 4.6 E12/L Normal 4.3-5.9 [facility] Comment on above: Performed By: #### 2 323314, 95911184, 1660752, 7531977, 96965347, 5449954, 8289023, 0987822, 48079361 ####[facility] [address] [place] [address] WBC corrected for nucl RBC Auto (Bld) [#/Vol] 6.0 E9/L Normal 4.0-11.0 [facility] Comment on above: Performed By: #### 2 804762, [id number], 4319772, 1665958, 51434949, 3272272, 5801085, 0574478, [id number] ####[address] [place] [address] CHEMISTRYOrdered By: SYSTEM SYSTEM on 01-23-2023 Albumin [Mass/Vol] 4.4 g/dL Normal 3.3 - 5.0 gm/dL Remisol Chem Albumin/Globulin [Mass ratio] 1.3 {ratio} Normal 1.1 - 2.2 Remisol Chem Alk Phos 107 [iU]/d High 21 - 98 Int._Unit/L Remisol Chem ALT 71 [iU]/d High 6 - 46 Int._Unit/L Remisol Chem Anion gap [Moles/Vol] 14 mmol/L Normal 6 - 16 mEq/L R emisol Chem AST 60 [iU]/d High 5 - 43 Int._Unit/L Remisol Chem Bili Direct 0.2 mg/dL Normal 0.0 - 0.4 mg/dL Remisol Chem Bili Indirect 0.2 mg/dL Normal 0.1 - 0.9 mg/dL Remisol Chem Bili Total 0.4 mg/dL Normal 0.0 - 1.1 mg/dL Remisol Chem Calcium [Mass/Vol] 9.3 mg/dL Normal 8.9 - 11. 1 mg/dL Remisol Chem Chloride [Moles/Vol] 103 mmol/L Normal 101 - 1 11 mmol/L Remisol Chem CO2 [Moles/Vol] 23 mmol/L Normal 21 - 31 mmol/L Remisol Chem Creatinine [Mass/Vol] 0.6 mg/dL Normal 0.5 - 1.3 mg/dL Remisol Chem eGFR mL/min/1.73 m2 Normal >=59mL/min/1 .73 m2 Remisol Chem Globulin (S) [Mass/Vol] 3.3 g/dL Normal 1.4 - 4.0 gm/dL Remisol Chem Glucose [Mass/Vol] 84 mg/dL Normal 55 - 199 mg/dL [place] [address] m[IU]/mL High 1 - 3 mIU/mL [facility] Comment on above: Result Comment: 'F N ON < 1 - 3' ' 0.2 - 1 WEEK = 5 TO 50' ' 1 - 2 WEEKS = 50 - 500' ' 2 - 3 WEEKS = 100 - 5000' ' 3 - 4 WEEKS = 500 - 67640' ' 4 - 5 WEEKS = 1000 - 40963' ' 5 - 6 WEEKS = 81217 - 214506' ' 6 - 8 WEEKS = 14370 - 556558' ' 8 - 12 WEEKS = 98265 - 770412' Lipase Lvl 10 unit/L Low 13 - 58 unit/L Remisol Chem Potassium [Moles/Vol] 3.5 mmol/L Normal 3.5 - 5.3 mmol/L Remisol Chem Protein [Mass/Vol] 7.7 g/dL Normal 6.0 - 7.8 gm/dL Remisol Chem Sodium [Moles/Vol] 136 mmol/L Normal 135 - 145 mmol/L Remisol Chem Urea nitrogen [Mass/Vol] 11 mg/dL Normal 5 - 21 mg/d L Remisol Chem Urea nitrogen/Creatinine [Mass ratio] 18 mg/mg Normal 10 - 20 Remisol Chem Consent for Treatmenton 01-05 Consent for Treatment [id number] Normal [facility] Discharge Instructionson Discharge Instructions [id number] Normal [facility] ED Clinical Summaryon 2022 ED Clinical Summary [place] [id number] ED Clinical Summary Person Information Name: JORDIN TYLER Kristan/[facility] Age: 18 Years : 2005 Sex: Female Language: Guatemalan PCP: MARK STONE Marital Status: Single Phone: [phone] Visit Id: Visit Reason: Dizziness; Nausea; N/V DIZZY Speciality: Acuity: 3 Enc Type: Emergency Med Service: Emergency Arrival: 01/23/2023 11:31:15 Discharge: 01/23/2023 17:56:46 LOS: 000 06:25 Checkin: 01/23/2023 11:31:15 Checkout: 01/23/2023 17:56:46 Dispo Type: Home (Routine DC) EVENTS: Event Name Event Status Request Date/Time Start Date/Time Complete Date/Time Arrive Complete 01/23/2023 11:31:15 01/23/2023 11:31:15 01/23/2023 11:31:15 Document Home Meds Request 01/23/2023 11:31:15 Triage Complete 01/23/2023 11:31:15 01/23/2023 11:49:25 01/23/2023 11:49:25 Registration Complete 01/23/2023 11:34:20 01/23/2023 11:34:20 01/23/2023 11:34:20 Reg Complete Request 01/23/2023 11:34:20 Reg Bed Request Complete 01/23/2023 11:34:20 01/23/2023 11:34:20 01/23/2023 11:34:20 Bed Assign Complete 01/23/2023 11:45:24 01/23/2023 11:45:24 01/23/2023 11:45:24 Dr Exam Complete 01/23/2023 11:45:24 01/23/2023 11:47:00 01/23/2023 11:47:00 RN Exam Complete 01/23/2023 11:45:24 01/23/2023 13:23:14 01/23/2023 13:23:14 Registration Request 01/23/2023 11:47:00 Dr Exam Complete 01/23/2023 11:47:16 01/23/2023 11:47:16 01/23/2023 11:47:16 EKG Complete 01/23/2023 11:49:14 01/23/2023 11:55:12 Meds Admin Complete 01/23/2023 11:58:21 01/23/2023 12:15:43 Pending Labs Complete 01/23/2023 11:58:21 01/23/2023 14:45:07 Lab Complete 01/23/2023 11:58:21 01/23/2023 14:45:07 Urine Collect Complete 01/23/2023 11:58:21 01/23/2023 14:45:07 Meds Admin Complete 01/23/2023 12:19:29 01/23/2023 12:27:02 Pending Labs Complete 01/23/2023 12:27:13 01/23/2023 12:27:13 01/23/2023 12:48:17 Lab Complete 01/23/2023 12:27:13 01/23/2023 12:27:13 01/23/2023 12:48:17 Pending Labs Complete 01/23/2023 12:42:40 01/23/2023 12:42:40 01/23/2023 12:42:40 Pending Labs Complete 01/23/2023 13:16:31 01/23/2023 13:16:31 01/23/2023 13:17:28 Pending Labs Complete 01/23/2023 13:16:32 01/23/2023 13:16:32 01/23/2023 13:17:38 Lab Complete 01/23/2023 13:16:32 01/23/2023 13:16:32 01/23/2023 13:17:38 Pending Labs Cancel 01/23/2023 13:29:42 01/23/2023 13:33:28 Lab Cancel 01/23/2023 13:29:42 01/23/2023 13:33:28 Pending Labs Complete 01/23/2023 13:33:59 01/23/2023 13:33:59 01/23/2023 15:00:14 Lab Complete 01/23/2023 13:33:59 01/23/2023 13:33:59 01/23/2023 15:00:14 Meds Admin Complete 01/23/2023 14:40:39 01/23/2023 14:51:28 US Complete 01/23/2023 15:24:59 01/23/2023 15:41:31 01/23/2023 16:40:34 Meds Admin Complete 01/23/2023 15:31:39 01/23/2023 16:31:42 Discharge Complete 01/23/2023 17:41:24 01/23/2023 17:56:52 01/23/2023 17:56:52 Transfer Complete 01/23/2023 17:56:52 01/23/2023 17:56:52 01/23/2023 17:56:52 ADDRESS: [address] [place] [address] [phone] PHYS DOC NOTES: MEDICAL INFORMATION: Prescriptions Given: New Medications Printed Prescriptions multivitamin, ( Multivitamins with Folic Acid 1 mg Tab) 1 Tablets By Mouth every day. Refills: 0. ondansetron (Zofran ODT 4 mg Tab-Dis) 1 Tablets By Mouth 3 times a day. Refills: 0. promethazine (promethazine 25 mg Supp) 1 Suppositories By rectum every 6 hours as needed for nausea/vomiting. Refills: 0. PATIENT EDUCATION INFORMATION: Instructions: Nausea and Vomiting, Adult Follow up: With: Address: When: Ras Miller [address], [address], [place], [place] [id number] Business (1) In 3 days 01/26/2023 DIAGNOSIS: Nausea/vomiting in Normal [facility] ED Note-Physicianon 01-24-20 ED Note-Physician Basic Information Time Seen: Colby Ayers PA-C 01/23/2023 11:47 Chief Complaint nausea and vomiting for 3 weeks. dizzy as well History of Present Illness 18-year-old female comes to the ED for evaluation of nausea and vomiting. States over the last 2-3 weeks she is felt lightheaded, nausea, vomiting with occasional lower abdominal pain. No fever, chills, chest pain or shortness of breath. No urinary complaints. No diarrhea constipation. No recent travel, sick contacts or bad food. No previous abdominal surgeries. No concern for . Review of Systems A 10 point review of systems is negative except as noted above. Medical and Surgical History: Reviewed and noted Social history: Lives at home Tobacco: Denies Physical Exam Vitals & Measurements T: 36.5 ?C(Oral) HR: 62(Monitored) RR: 18 BP: 95/50 SpO2: 100% HT: 165 cm WT: 77 kg BMI: 28.28 Nurses notes and vital signs reviewed and patient is not hypoxic. General: The patient appears well and in no significant distress Patient is resting comfortably on the exam bed. Skin: Warm, dry, no pallor noted. Head: Atraumatic. Neck: No JVD. Eye: Normal conjunctiva. Ears, Nose, Mouth, and Throat: Dry mucous membranes Cardiovascular: Strong distal pulses. Chest wall: Respiratory: Respirations are nonlabored. Back: Normal range of motion, no CVA tenderness. Musculoskeletal: Normal ROM with no gross deformity. Gastrointestinal: Soft and nontender. Urological: Neurological: Awake and alert. No focal deficits. Follows commands. GCS 15. Psychiatric: Cooperative. Medical Decision Making Laboratory studies reviewed and noted. did come back positive. Quantitative hCG was added which returned positive at over 60,000. She is sent for ultrasound which was discussed with plumbing technician. Intrauterine measuring 6 weeks, 5 days, heart rate 125. No gross abnormality. Patient was treated here with 2 L of IV fluid and antiemetics. Repeat evaluation of vomiting has been controlled patient taking oral hydration well. No abnormal vaginal discharge or bleeding. She started on nausea medication, vitamins and discharged home with PRISONER CLASSIFICATION INTERVIEWER follow-up. Patient was encouraged to return to the ED if symptoms worsen or change. Assessment/Plan Nausea/vomiting in (O21.9: Vomiting of , unspecified) Orders: diphenhydrAMINE, 25 mg = 0.5 mL, Injection, IV Push, Once, Stop date 01/23/23 12:19:00 EST, STAT, Start date 01/23/23 12:19:00 EST, 01/23/23 12:19:00 EST multivitamin, , 1 tab(s), Oral, Daily, 30 tab(s), Refill(s) 0 ondansetron, 4 mg = 1 tab(s), Tab-Dis, Oral, Once, Stop date 01/23/23 11:58:00 EST, STAT, Start date 01/23/23 11:58:00 EST, 01/23/23 11:58:00 EST ondansetron, 4 mg = 1 tab(s), Oral, TID, # 15 tab(s), Refills(s) 0 ondansetron, 4 mg = 2 mL, Injection, IV Push, Once, Stop date 01/23/23 12:19:00 EST, STAT, Start date 01/23/23 12:19:00 EST, 01/23/23 12:19:00 EST promethazine, 25 mg = 1 supp, Rectal, q6hr, PRN for nausea/vomiting, # 12 supp, Refills(s) 0 promethazine, 25 mg = 1 tab(s), Tab, Oral, Once, Stop date 01/23/23 14:40:00 EST, STAT, Start date 01/23/23 14:40:00 EST, 01/23/23 14:40:00 EST Sodium Chloride 0.9% intravenous solution, 1,000 mL, Soln-IV, IV, Once, Stop date 01/23/23 11:58:00 EST, STAT, Start date 01/23/23 11:58:00 EST, Infuse over 61, minute(s) Sodium Chloride 0.9% intravenous solution, 1,000 mL, Soln-IV, IV, Once, Stop date 01/23/23 15:31:00 EST, STAT, Start date 01/23/23 15:31:00 EST, Infuse over 61, minute(s) Automated Diff Basic Metabolic Panel Beta hCG Qual Beta hCG Quantitative CBC w/ Auto Diff eGFR Extra Blue Tube Hepatic Function Panel Lipase Level Morphology UA With Cult Reflex US 1st Trimester Medications Administered Given diphenhydrAMINE 50 mg/mL Inj, 25 mg, IV Push NS 1000 ml Bolus, 1000 mL, IV NS 1000 ml Bolus, 1000 mL, IV ondansetron 4 mg Dis Tab, 4 mg, Oral promethazine 25 mg Tab, 25 mg, Oral Zofran 4 mg/2 mL Injection, 4 mg, IV Push Disposition Plan Patient Discharge Condition Disposition: Discharged home Condition: Improved and stable Counseled: Patient and/or family were counseled to workup, results, treatment plan and follow-up recommendations Discharge Prescription List Prescriptions Multivitamins with Folic Acid 1 mg Tab, 1 tab(s), Oral, Daily promethazine 25 mg Supp, 25 mg= 1 supp, Rectal, q6hr, PRN Zofran ODT 4 mg Tab-Dis, 4 mg= 1 tab(s), Oral, TID Follow-up With When Contact Information Ras Miller In 3 days 01/26/[address], [address] [place] [address]- Business (1) Additional Instructions: Patient Education Nausea and Vomiting, Adult Attestation Patient seen and evaluated by the physician assistant chief nursing officer. Attending physician was present in the emergency department and supervised care. This visit was performed by both the physician and an APC. I performed all aspects of the M (more content not included)... Normal [facility] Comment on above: Result Comment: Elec tronically Signed By: Colby Ayers PA-C\.br\Date and Time Signed: 01/23/23 17:43 EST\.br\Electronically Co-Signed By: Steven Alatorre DO\.br\Date and Time Co-Signed: 01/23/23 18:35 EST ED Patient Education Noteon 01-23-2023 ED Patient Education Note Gastroenterology Nausea and Vomiting, Adult Nausea is the feeling that you have an upset stomach or that you are about to vomit. As nausea gets worse, it can lead to vomiting. Vomiting is when stomach contents forcefully come out of your mouth as a result of nausea. Vomiting can make you feel weak and cause you to become dehydrated. Dehydration can make you feel tired and thirsty, cause you to have a dry mouth, and decrease how often you urinate. Older adults and people with other diseases or a weak disease-fighting system (immune system) are at higher risk for dehydration. It is important to treat your nausea and vomiting as told by your health care provider. Follow these instructions at home: Watch your symptoms for any changes. Tell your health care provider about them. Eating and drinking ? Take an oral rehydration solution (ORS). This is a drink that is sold at pharmacies and retail stores. ? Drink clear fluids slowly and in small amounts as you are able. Clear fluids include water, ice chips, low-calorie sports drinks, and fruit juice that has water added (diluted fruit juice). ? Eat bland, rkuc-oi-rwrjqt foods in small amounts as you are able. These foods include bananas, applesauce, rice, lean meats, toast, and crackers. ? Avoid fluids that contain a lot of sugar or caffeine, such as energy drinks, sports drinks, and soda. ? Avoid alcohol. ? Avoid spicy or fatty foods. General instructions ? Take ktro-ksh-yxsiaku and prescription medicines only as told by your health care provider. ? Drink enough fluid to keep your urine pale yellow. ? Wash your hands often using soap and water for at least 20 seconds. If soap and water are not available, use hand morning news anchor. ? Make sure that everyone in your household washes their hands well and often. ? Rest at home while you recover. ? Watch your condition for any changes. ? Take slow and deep breaths when you feel nauseous. ? Keep all follow-up visits. This is important. Contact a health care provider if: ? Your symptoms get worse. ? You have new symptoms. ? You have a fever. ? You cannot drink fluids without vomiting. ? Your nausea does not go away after 2 days. ? You feel light-headed or dizzy. ? You have a headache. ? You have muscle cramps. ? You have a rash. ? You have pain while urinating. Get help right away if: ? You have pain in your chest, neck, arm, or jaw. ? You feel extremely weak or you faint. ? You have persistent vomiting. ? You have vomit that is bright red or looks like black coffee grounds. ? You have bloody or black stools (feces) or stools that look like tar. ? You have a severe headache, a stiff neck, or both. ? You have severe pain, cramping, or bloating in your abdomen. ? You have difficulty breathing, or you are breathing very quickly. ? Your heart is beating very quickly. ? Your skin feels cold and clammy. ? You feel confused. ? You have signs of dehydration, such as: ? Dark urine, very little urine, or no urine. ? Cracked lips. ? Dry mouth. ? Sunken eyes. ? Sleepiness. ? Weakness. These symptoms may be an emergency. Get help right away. Call 911. ? Do not wait to see if the symptoms will go away. ? Do not drive yourself to the hospital. Summary ? Nausea is the feeling that you have an upset stomach or that you are about to vomit. As nausea gets worse, it can lead to vomiting. Vomiting can make you feel weak and cause you to become dehydrated. ? Follow instructions from your health care provider about eating and drinking to prevent dehydration. ? Take ceos-bkm-xahclcp and prescription medicines only as told by your health care provider. ? Contact your health care provider if your symptoms get worse, or you have new symptoms. ? Keep all follow-up visits. This is important. This information is not intended to replace advice given to you by your health care provider. Make sure you discuss any questions you have with your health care provider. Document Revised: 07/29/2021 Document Reviewed: 07/29/2021 [employer] Patient Education ? 2022 [employer]. Normal [facility] ED Patient Summaryon 023 ED Patient Summary [address] [address] Patient Discharge Instructions Person Information Name: JORDIN TYLER Age: 18 Years Arrival Date: 01/23/2023 11:31:15 Discharge Diagnosis: Nausea/vomiting in Primary Care Physician: MARK STONE Provider Information Primary Provider: Steven Alatorre DO Advanced Flight Physician:Colby Ayers PA-C The exam and treatment you received in the Emergency Department were for an urgent problem and are not intended as complete care. It is important that you follow up with a doctor, nurse practitioner, or physician?s assistant chief nursing officer for ongoing care. If your symptoms become worse or you do not improve as expected and you are unable to reach your usual health care provider, you should return to the Emergency Department. We are available 24 hours a day. JORDIN TYLER has been given the following list of patient education materials, prescriptions and follow-up instructions: Follow-up Instructions: With: Address: When: Ras Paul [address] [place] [address] Business (1) In 3 days 01/26/2023 In the event that this physician does not participate in your insurance network, please consult with your insurance company to find a nearby participating provider. Patient Education Materials: Nausea and Vomiting, Adult A MESSAGE TO ALL PATIENTS REGARDING OPIOIDS PRESCRIPTION OPIOIDS: WHAT YOU NEED TO KNOW Prescription opioids can be used to help relieve ykdjjcqn-fg-zcrjwm pain and are often prescribed following a surgery or injury, or for certain health conditions. These medications can be an important part of the treatment but also come with serious risks. It is important to work with your healthcare provider to make sure you are getting the safest, most effective care. WHAT ARE THE RISKS AND SIDE EFFECTS OF OPIOID USE? Prescription opioids carry serious risks of addiction and overdose, especially with prolonged use. An opioid overdose, often marked by slowed breathing, can cause sudden . The use of prescription opioids can have a number of side effects as well, even when taken as directed: ? Tolerance?meaning you might need to take more of the medication for the same pain relief ? Physical dependence?meaning you have symptoms of withdrawal when a medication is stopped ? Increased sensitivity to pain ? Constipation ? Nausea, vomiting, and dry mouth ? Sleepiness and dizziness ? Confusion ? Depression ? Low levels of testosterone that can result in lower sex drive, energy, and strength ? Itching and sweating RISKS ARE GREATER WITH: ? History of drug misuse, substance use disorder, or overdose ? Mental health conditions (such as depression or anxiety) ? Sleep apnea ? Older age (65 years and older) ? Avoid alcohol while taking prescription opioids. Also, unless specifically advised by your health care provider, medications to avoid include: ? Benzodiazepines (such as Xanax or Valium) ? Muscle relaxants (such as Soma or Flexeril) ? Hypnotics (such as Ambien or Lunesta) ? Other prescription opioids KNOW YOUR OPTIONS Talk to your health care provider about ways to manage your pain that don?t involve prescription opioids. Some of these options may actually work better and have fewer risks and side effects. Options may include: ? Pain relievers such as acetaminophen, ibuprofen, and naproxen ? Some medication that are also used for depression or seizures ? Physical therapy and exercise ? Cognitive behavioral therapy, a psychological, goal-directed approach, in which patients learn how to modify physical, behavioral, and emotional triggers of pain and stress. IF YOU ARE PRESCRIBED OPIOIDS FOR PAIN: ? Never take opioids in greater amounts or more often than prescribed. ? Follow up with your primary health care provider. o Work together to create a plan on how to manage your pain. o Talk about ways to help manage your pain that don?t involve prescription opioids. o Talk about any and all concerns and side effects. ? Help prevent misuse and abuse o Never sell or share prescription opioids. o Never use another person?s prescription opioids. ? Store prescription opioids in a secure place and out of reach of others (this may include visitors, children, friends, and family). ? Safely dispose of unused prescription opioids: Find your community drug take-back program or your pharmacy mail-back program, or flush them down the toilet, following guidance from the Food and Drug Administration (www.fda.gov/Drugs/ ResourcesForYou). ? Visit www.cdc.gov/drugove rdose to learn about the risks of opioids abuse and overdose. ? If you believe you may be struggling with addiction, tell your health urgent care nurse practitioner and ask for guidance or call [facility]?S National Helpline at 5-146-418-MVBZ (more content not included)... Normal [facility] HEMATOLOGYOrdered By: Brandon Sweeney on 01-23-2023 Anisocytosis Ql (Bld) Present (01/23/23 12:15 PM) Normal [facility] Erythrocyte distribution width (RBC) [Ratio] 17.6 % High 10.9 - 14.2 % [facility] Hematocrit (Bld) [Volume fraction] 33.9 % Low 34.0 - 46.0 % [facility] Hemoglobin (Bld) [Mass/Vol] 11.3 g/dL Low 12.0 - 16.0 gm/dL [facility] Hypochromia Auto Ql (Bld) Present (01/23/23 12:15 PM) Normal [facility] MCH (RBC) [Entitic mass] 24.5 pg Low 27. 0 - 34.0 pg [facility] MCHC (RBC) [Mass/Vol] 33.3 g/dL Normal 31.4 - 36.0 gm/dL [facility] MCV (RBC) [Entitic vol] 73.6 fL Low 80.0 - 100.0 fL [facility] Microcytes Ql (Bld) Present (01/23/23 12:15 PM) Normal [facility] Morphology Cliff (Bld) [Interp] See Morphology (01/23/23 12:15 PM) Normal [facility] Platelet mean volume (Bld) [Entitic vol] 8.1 fL Normal 6.4 - 10.8 fL [facility] Platelets (Bld) [#/Vol] 306.0 E9/L Normal 150. 0 - 500.0 E9/L [facility] RBC (Bld) [#/Vol] 4.6 E12/L Normal 4.3 - 5.9 E12/L [facility] WBC corrected for nucl RBC Auto (Bld) [#/Vol] 6.0 E9/L Normal 4.0 - 11.0 E9/L [facility] HEMATOLOGYOrdered By: SYSTEM SYSTEM on 01-23-2023 Basophils/100 WBC (Bld) 0.5 % Normal 0.0 - 2.0 % [facility] Basophils/Leukocytes Auto (Bld) [Pure # fraction] 0.0 E9/L Normal 0.0 - 0.2 E9/L [facility] Eosinophils/100 WBC (Bld) 0.7 % Normal 0.0 - 8.0 % [facility] Eosinophils/Leukocytes Auto (Bld) [Pure # fraction] 0.0 E9/L Normal 0.0 - 0.5 E9/L [facility] Lymphocytes/100 WBC (Bld) 21.4 % Normal 14.0 - 50.0 % [facility] Lymphocytes/Leukocytes Auto (Bld) [Pure # fraction] 1.3 E9/L Normal 1.0 - 4.0 E9/L [facility] Monocytes/100 WBC (Bld) 7.4 % Normal 4.0 - 14.0 % [facility] Monocytes/Leukocytes Auto (Bld) [Pure # fraction] 0.4 E9/L Normal 0.2 - 1.0 E9/L [facility] Neutrophils/100 WBC (Bld) 70.0 % Normal 36.0 - 75.0 % [facility] Neutrophils/Leukocytes Auto (Bld) [Pure # fraction] 4.2 E9/L Normal 2.0 - 7.5 E9/L [facility] Hep Func Panelon 01-23-2023 Albumin [Mass/Vol] 4.4 g/dL Normal 3.3-5.0 [facility] Comment on above: Performed By: #### 2 [id number], [id number], [id number], 8944491, 12463945, 8780419, 6841214, 5942596, [id number] ####[facility] [address] [place] [address] Albumin/Globulin [Mass ratio] 1.3 {ratio} Normal 1.1-2.2 [facility] Comment on above: Performed By: #### 2 [id number], [id number], 8411376, 2574855, 07092413, 5474879, 6806567, 2271847, [id number] ####[facility] [address] [place] [address] Alk Phos 107 Int._Unit/L High 21-98 [facility] Comment on above: Performed By: #### 2 469348, [id number], 6045230, 5382400, 09749841, 4980363, 8869569, 1225622, [id number] ####[facility] [address] [place] [address] ALT 71 Int._Unit/L High 6-46 [facility] Comment on above: Performed By: #### 2 226608, [id number], 5806209, 7389865, 43005145, 9357533, 0702652, 3195038, [id number] ####[facility] [address] [place] [address] AST 60 Int._Unit/L High 5-43 [facility] Comment on above: Performed By: #### 2 205732, [id number], 2064627, 7063706, 61072716, 9344222, 2432916, 7962480, 32285769 ####[facility] [address] [place] [address] Bili Direct 0.2 mg/dL Normal 0.0-0.4 [facility] Comment on above: Performed By: #### 2 964404, 53285694, 9798412, 3466724, 29585430, 3616029, 6691006, 0721215, 54553116 ####[facility] [address] [place] [address] Bili Indirect 0.2 mg/dL Normal 0.1-0.9 [facility] Comment on above: Performed By: #### 2 309440, 38725810, 2609306, 3029613, 23444008, 3850401, 5790920, 7886557, 99242863 ####[facility] [address] [place] [address] Bili Total 0.4 mg/dL Normal 0.0-1.1 [facility] Comment on above: Performed By: #### 2 848402, 22464095, 6041163, 2218182, 42266449, 4123479, 9966375, 5910241, 67010464 ####[facility] [address] [place] [address] Globulin (S) [Mass/Vol] 3.3 g/dL Normal 1.4-4.0 [facility] Comment on above: Performed By: #### 2 357638, 47509314, 4029468, 6687460, 75730815, 1185979, 2722771, 7820226, 39581672 ####[facility] [address] [place] [address] Protein [Mass/Vol] 7.7 g/dL Normal 6.0-7.8 [facility] Comment on above: Performed By: #### 2 937368, 17003390, 5349737, 3709083, 39795435, 9118121, 0865356, 4977708, 59388591 ####[facility] [address] [place] [address] Lipase Levelon 01-23-2023 Lipase Lvl 10 unit/L Low 13-58 [facility] Comment on above: Performed By: #### 2 223065, 24387229, 0860898, 9006970, 60828201, 5031862, 6635027, 0793571, 53485592 ####[facility] [address] [place] [address] Morphon 01-23-2023 Anisocytosis Ql (Bld) Present Normal [facility] Comment on above: Order Comment: Order Added by Discern Expert. Performed By: #### 2 605343, 25177306, 1138264, 3788115, 17246920, 6277796, 0679407, 1003261, 97877765 ####[facility] [address] [place] [address] Hypochromia Auto Ql (Bld) Present Normal [facility] Comment on above: Order Comment: Order Added by Discern Expert. Performed By: #### 2 594572, 59724852, 1262313, 9951032, 94603086, 3618938, 5639592, 6541801, 07068485 ####[facility] [address] [place] [address] Microcytes Ql (Bld) Present [facility] Comment on above: Order Comment: Order Added by Discern Expert. Performed By: #### 2 355481, 42635119, 2165661, 8242638, 76675441, 0482796, 3243536, 9439431, 02143967 ####[facility] [address] [place] [address] Morphology Cliff (Bld) [Interp] See Morphology Normal [facility] Comment on above: Order Comment: Order Added by Discern Expert. Performed By: #### 2 019727, 24290632, 6507613, 5809215, 00508934, 1180219, 4418794, 7660257, 65404505 ####[facility] [address] [place] [address] SEROLOGYOrdered By: Kath Harden on 01-23-2023 Beta HCG ( test) Ql Positive (01/23/23 12:15 PM) Normal [facility] Man Sero UA With Cult Reflexon 2022 Bilirubin Ql (U) 1+ Abnormal Negative [facility] Comment on above: Performed By: #### 1 [id number] #### [facility] [address] [place] [address] Clarity (U) CLEAR Normal Clear [facility] Comment on above: Performed By: #### 1 [id number] #### [facility] [address] [place] [address] Color (U) DARK KIMMY Invalid Interpretation Code [facility] Comment on above: Performed By: #### 1 [id number] #### [facility] [address] [place] [address] Epithelial cells.squamous LM.HPF (Urine sed) [#/Area] 0-2 Normal 0-2 [facility] Comment on above: Performed By: #### 1 3597596 #### [facility] [address] [place] [address] Glucose Test strip (U) [Mass/Vol] Negative Normal Negative [facility] Comment on above: Performed By: #### 1 [id number] #### [facility] [address] [place] [address] Hemoglobin Ql (U) Negative Normal Negative [facility] Comment on above: Performed By: #### 1 2060195 #### [facility] [address] [place] [address] Ketones (U) [Mass/Vol] 3+ Abnormal Negative [facility] Comment on above: Performed By: #### 1 [id number] #### [facility] [address] [place] [address] [place].plasma/[place].R BC (Bld) [Mass ratio] 0-3 Normal 0-3 [facility] Comment on above: Performed By: #### 1 6882507 #### [facility] [address] [place] [address] Mucus Ql (Urine sed) TRACE Normal [facility] Comment on above: Performed By: #### 1 [id number] #### [facility] [address] [place] [address] Nitrite Ql (U) Negative Normal Negative [facility] Comment on above: Performed By: #### 1 1338642 #### [facility] [address] [place] [address] pH (U) 6.5 [pH] Invalid Interpretation Code 5.0-9.0 [facility] Comment on above: Performed By: #### 1 [id number] #### [facility] [address] [place] [address] Protein (U) [Mass/Vol] 1+ Abnormal Negative [facility] Comment on above: Performed By: #### 1 [id number] #### [facility] [address] [place] [address] Specific gravity (U) [Rel density] 1.025 Invalid Interpretation Code 1.005-1.030 [facility] Comment on above: Performed By: #### 1 6406119 #### [facility] [address] [place] [address] Type of Urine collection method Clean Catch Normal [facility] Comment on above: Performed By: #### 1 [id number] #### [facility] [address] [place] [address] Urobilinogen Qn (U) 1.0 {Karri'U}/dL Normal 0.0-1.0 [facility] Comment on above: Performed By: #### 1 5086618 #### [facility] [address] [place] [address] WBC Auto Ql (U) Negative Normal Negative [facility] Comment on above: Performed By: #### 1 1535893 #### [facility] [address] [place] [address] WBC LM.HPF (Urine sed) [#/Area] 0-5 Normal 0-5 [facility] Comment on above: Performed By: #### 1 [id number] #### [facility] [address] [place] [address] URINALYSISOrdered By: Maranda Muñoz on 01-23-2023 Bilirubin Ql (U) 1+ *ABN* (01/23/23 2:25 PM) Invalid Interpretation Code Negative [facility] UA Auto SS Clarity (U) Clear (01/23/23 2:25 PM) Normal Clear [facility] UA Auto SS Color (U) DARK KIMMY Invalid Interpretation Code [facility] UA Auto SS Epithelial cells.squamous LM.HPF (Urine sed) [#/Area] 0-2 /HPF Normal 0-2/HPF [facility] UA Aut o SS Glucose Test strip (U) [Mass/Vol] Negative (01/23/23 2:25 PM) Normal Negative [facility] UA Auto SS Hemoglobin Ql (U) Negative (01/23/23 2:25 PM) Normal Negative [facility] UA Auto SS Ketones (U) [Mass/Vol] 3+ *ABN* (01/23/23 2:25 PM) Invalid Interpretation Code Negative [facility] UA Auto SS [place].plasma/[place].R BC (Bld) [Mass ratio] 0-3 /HPF Normal 0-3/HPF [facility] UA Au to SS Mucus Ql (Urine sed) Trace (01/23/23 2:25 PM) Normal [facility] UA Auto SS Nitrite Ql (U) Negative (01/23/23 2:25 PM) Normal Negative [facility] UA Auto SS pH (U) 6.5 *NA* (01/23/23 2:25 PM) Invalid Interpretation Code 5.0 - 9.0 [facility] UA Auto SS Protein (U) [Mass/Vol] 1+ *ABN* (01/23/23 2:25 PM) Invalid Interpretation Code Negative [facility] UA Auto SS Specific gravity (U) [Rel density] 1.025 *NA* (01/23/23 2:25 PM) Invalid Interpretation Code 1.005 - 1.030 [facility] UA Auto SS UA Spec Desc Clean Catch (01/23/23 2:25 PM) Normal [facility] UA Auto SS Urobilinogen Qn (U) 1.0925530 {Karri'U}/dL Normal 0.0 - 1.0 EU/dL [facility] UA Auto SS WBC Auto Ql (U) Negative (01/23/23 2:25 PM) Normal Negative [facility] UA Auto SS WBC LM.HPF (Urine sed) [#/Area] 0-5 /HPF Normal 0-5/HPF [facility] UA Auto SS US 1st Trimesteron 01-23-2023 US 1st Trimester Exam Date/Time: 01/23/2023 16:40 EST Reason for Exam: pain;Trauma Report IMPRESSION: IMPRESSION: EARLY SINGLE INTRAUTERINE GESTATION. COMPOSITE ULTRASOUND AGE: 6 WEEKS, 5 DAYS CLINICAL HISTORY: Trauma, pain. Nausea and vomiting. Unknown LMP. ALISHA from average ultrasound age: 0809/13/2023 Composite Ultrasound Age: 6 weeks, 5 days COMMENT: Transabdominal images were obtained. The uterus measurements and an estimated volume are: Uterus Length: 8.3 cm Uterus Width: 7.1 cm Uterus Height: 4.8 cm Uterus Volume: 146.7 cm3 A single gestational sac is identified within the uterine fundus, and a yolk sac and small pole are identified within the gestational sac. The crown-rump length and the corresponding gestational age +/- 1 week are: [place] Rump Length: 0.7 cm Composite Ultrasound Age: 6 weeks, 5 days ALISHA from average ultrasound age: 0809/13/2023 There is no evidence of subchorionic hemorrhage. The heart rate is measured at 125 bpm. The right ovary is not visualized. The left ovary measurements and estimated volume are: Left Ovary Length: 3.4 cm Left Ovary Width: 2.5 cm Left Ovary Height: 2.1 cm Left Ovary Volume: 9.2 cm3 There is a left ovarian cyst that measures approximately 1.1 x 1.2 x 1 cm. No large cyst nor adnexal mass is noted. On color flow Doppler images, vascular flow to the left ovary is demonstrated. There is no free fluid in the cul-de-sac. Report CLINICAL HISTORY: Trauma, pain. COMPARISON: COMMENT: Transabdominal images were obtained. The uterus measures approximately cm, with an estimated volume of cc. A single gestational sac is identified within the uterine fundus. A yolk sac and small pole are identified within the gestational sac. The crown-rump length of cm corresponds to a gestational age of weeks days, +/- 1 week. The heart rate is measured at beats per minute. There is no evidence of subchorionic hemorrhage. The uterus is otherwise unremarkable. The right ovary measures cm, with an estimated volume of cc. The left ovary measures cm, with an estimated volume of cc. There are a few small follicular ovarian cysts. No large cysts and no adnexal mass are noted. There is no free fluid in the cul-de-sac. Ordering Provider: Colby Ayers FINAL REPORT Dictated: 01/23/2023 5:01 pm James Talavera M.D. Signed (Electronic Signature): 01/23/2023 5:01 pm Signed by: James Talavera M.D. Transcribed by: MARINA Technologist: LEVI Technical Comments Unknown History 3 Para 2 Transabdominal Ultrasound Performed FHR (bpm) 125 [place] Rump Length (in cm) 0.7 Normal [facility] eGFRon 01-23-2023 GFR/1.73 sq M.predicted among non-blacks MDRD (S/P/Bld) [Vol rate/Area] mL/min/{1.73_m2} Normal >=59 [facility] Comment on above: Order Comment: Order added by Discern Expert. Performed By: #### 2 [id number], [id number], 2282506, 0813415, 79369226, 3971870, 5349695, 7956740, 35673945 ####[facility] [address] [place] [address] Interdisciplinary Note - Soc ial Workeron 01-15-2023 Interdisciplinary Note - Patient Scheduling Manager This SW attempted to reach patient again today regarding needed resources. Patient again did not answer and voicemails are not able to be left. SW will remain available. Normal [facility] Interdisciplinary Note - Soc ial Workeron 01-08-2023 Interdisciplinary Note - Patient Scheduling Manager This SW attempted to contact patient today to discuss resources that she may be in need of. It was noted in her chart that she has to walk to and from work and does not have custody of her children. Patient did not answer the call and a voicemail was not able to be left due to the inbox being full. SW will remain available. Normal [facility] Grp A Strp PCRon 01-02-2023 Grp A Strp Intrl Ctrl Pass Normal [facility] Comment on above: Performed By: #### 1 [id number] #### [facility] [address] [place] [address] S. pyogenes DNA TIM+probe Ql (Throat) Positive Abnormal [facility] Comment on above: Result Comment: Test ing performed using DNA amplification. Performed By: #### 1 [id number] #### [facility] [address] [place] [address] Family Medicine Office/Clini c Noteon 01-01-2023 Family Medicine Office/Clinic Note Chief Complaint hair falling out, joint pain, rib pain HPI Staff Jordin is a 17 year old female here for a cough and sore throat symptoms for 4 months hair has been falling out- chunks have been falling out daily joint pain- worse in hands and knees chest pain under breast area- hard to breathe her child just tested positive for COVID History of Present Illness I have reviewed and verified the staff HPI to be accurate for this encounter. Portions of this record have been created with voice recognition software. Occasional wrong-word or ?yntqk-q-ovnf? substitutions may have occurred due to the inherent limitations of voice recognition software. 17 yo female presents today with cc of bodyaches and headache concern for COVID-19 or strep. Patient states she has a 4-month-old and a 1 and fvep-smkj-luc. States she currently does not have custody of them but was around them recently. States that grandparents have custody of her children in which they just tested positive for COVID-19 today she states she began with fever chills body aches and headache on Thanksgiving x 4 days ago states that fever and chills have resolved but she continues with nasal congestion rhinorrhea and cough. Patient also states that staff has been in the house recently for also has concern in regards does complain of sore throat today. She denies any nausea vomiting diarrhea or abdominal pain. She also notes cough which is dry nonproductive. Denies any chest pain shortness of breath or difficulty breathing with cough. Denies any history of asthma or COPD. Denies smoking history. Review of Systems PHQ Score Initial Depression Screen Score: 0 SCORE ROS negative unless otherwise stated in HPI. Physical Exam Vitals & Measurements T: 36.6 ?C(Oral) HR: 74(Peripheral) BP: 110/72 SpO2: 98% HT: 65 in HT: 165 cm WT: 77 kg WT: 169.4 lb BMI: 28.28 General: Well developed, well nourished, in no acute distress Eyes: Bilateral conjunctiva within normal limits no injection Ears: Bilateral TMs within normal limits no erythema or bulging. Bilateral external auditory canals within normal limits no erythema or edema Nose: mild nasal mucosa inflammation and edema Mouth: Moist mucous membranes. Bilateral tonsillar erythema without exudate. Uvula is midline. No signs of peritonsillar abscess. No trismus or drooling. Neck: no adenopathy Lungs: Lung sounds are clear bilaterally. No wheezing rhonchi or crackles on exam. Cardio: S1, S2, regular rhythm. No murmurs gallops or rubs. Abdomen: not assessed Musculoskeletal: not assessed Extremity: not assessed Neurologic: not assessed Skin: No rashes, ulcerations, or suspicious lesions Mental Status: Alert and oriented x3. Normal mood and affect Assessment/Plan Patient is agreeable to rapid strep, rapid COVID and rapid influenza testing in office today. Patient is COVID-19 positive in office today. Rapid flu and rapid strep are both negative. Will send a culture for strep to confirm that patient does not have strep today if this were to come back positive patient be treated with antibiotics and notified. I discussed with patient in regards to a few other weird symptoms she mention today in regards to her hair falling out etc. she did give x 4 months ago and which could be shedding however if she were develop other symptoms such as chest pain shortness of breath difficulty breathing heart palpitations etc. she would need to be evaluated in the emergency department. Will place a referral to social media content specialist see if we can get case management to help her out as she states she does not currently have her insurance card if she should be able to log online and take it 1 she has difficulty with transportation and walks lojg-oza-dpeiw to work currently at [employer]. Will see if we can get her some other assistance in which patient agrees and understands plan. 1. COVID-19 (U07.1: COVID-19) Discussed that COVID is a viral syndrome which typically last 5 to 12 days. Continue symptomatic treatment with throat lozenges, OTC cold/flu medications. As needed Tylenol/ibuprofen for any discomfort. Fluids, rest encouraged. New CDC guidelines are to quarantine x5 days from symptom onset. After 5 days may return to normal activities as long as overall improvement of symptoms and no fever for 24 hours. Needs to continue to wear a mask in public and while at work or school for the next 5 days after quarantine ends. Follow-up with PCP if symptoms or not improving over the next 2 weeks, ER if any significant shortness of breath or signs of respiratory distress. Patient verbalized understanding. Ordered: Group A Strep by PCR Patient Scheduling Manager - Ambulatory Referral 2. BMI 28.0-28.9,adult (Z68.28: Body mass index [BMI] 28.0-28.9, adult) The standard range for ages 18 and older is >=18.5 and < 25 kg/m2. Your BMI today was above this range, this falls in the overweight to obese category and there are medical benefits to weight loss. We can offer couns (more content not included)... Normal [facility] Comment on above: Result Comment: Elec tronically Signed By: Alex ROBERT, Alon Mercedes\.br\Date and Time Signed: 01/01/23 16:26 EST Patient Letter FTon 2022 Patient Letter [facility] [address], [facility] [place] [address] [phone] January 01, 2023 JORDIN TYLER [address] [address] : 2005 Please excuse JORDIN TYLER from work . Date and/or Time of Absence: From: 12/29/22 To: 01/03/23 May return to work on: 01/03/23 Restrictions: Pt may return to work on 01/03/23 as long as she is fever free with symptomatic improvement. Should mask an additional 5 days until Sunday01/06/23 Comments: Please excuse due to an acute illness. Provider Signature: Alon Johnson PA-C Physician [employer] Consultant [address] [place] [address] [place] [address] [facility] C Urineon 12-09-2022 Bacteria identified Cx Nom (U) Microbiology PROCEDURE: Urine Culture [R1] SOURCE: U CleanCatch BODY SITE: COLLECTED DATE/TIME: 12/07/2022 23:15 EDT RECEIVED DATE/TIME: 12/07/2022 23:35 EDT START DATE/TIME: 12/07/2022 23:35 EDT FREE TEXT SOURCE: Damaris Jean Baptiste DO, DO, Kaylinn A FINAL REPORTS Final Report [] Verified Date/Time: 12/09/2022 06:53 EDT 1,000 cfu/ml Mixed skin contaminants Performing Locations R1: This test was performed at: [facility], [address] [place] [address], [id number] , , [facility] Comment on above: Performed By: #### 1 [id number] #### [facility] [address] [place] [address] Discharge Instructionson Discharge Instructions [id number] [facility] ED Clinical Summaryon 2022 ED Clinical Summary [address] [address] ED Clinical Summary Person Information Name: JORDIN TYLER[place] Age: 17 Years : 2005 Sex: Female Language: Guatemalan PCP: NONE, XXXX Marital Status: Single Phone: [phone] Visit Id: Visit Reason: Test; PREG TEST Speciality: Acuity: 4 Enc Type: Emergency Med Service: Emergency Arrival: 12/07/2022 22:58:31 Discharge: 12/08/2022 00:29:07 LOS: 000 01:31 Checkin: 12/07/2022 22:58:31 Checkout: 12/08/2022 00:29:07 Dispo Type: Home (Routine DC) EVENTS: Event Name Event Status Request Date/Time Start Date/Time Complete Date/Time Arrive Complete 12/07/2022 22:58:31 12/07/2022 22:58:31 12/07/2022 22:58:31 Document Home Meds Request 12/07/2022 22:58:31 Triage Complete 12/07/2022 22:58:31 12/07/2022 23:08:42 12/07/2022 23:08:42 Dr Exam Complete 12/07/2022 23:00:12 12/07/2022 23:00:12 12/07/2022 23:00:12 Registration Start 12/07/2022 23:00:12 12/07/2022 23:00:47 Pending Labs Complete 12/07/2022 23:00:32 12/07/2022 23:25:01 Lab Complete 12/07/2022 23:00:32 12/07/2022 23:25:01 Urine Collect Complete 12/07/2022 23:00:32 12/07/2022 23:25:01 Bed Assign Complete 12/07/2022 23:00:47 12/07/2022 23:00:47 12/07/2022 23:00:47 RN Exam Complete 12/07/2022 23:00:47 12/07/2022 23:20:59 12/07/2022 23:20:59 Pending Labs Cancel 12/07/2022 23:01:24 12/07/2022 23:01:45 Lab Cancel 12/07/2022 23:01:24 12/07/2022 23:01:45 Urine Collect Cancel 12/07/2022 23:01:24 12/07/2022 23:01:45 Pending Labs Complete 12/07/2022 23:12:55 12/07/2022 23:33:49 Lab Complete 12/07/2022 23:12:55 12/07/2022 23:33:49 Urine Collect Complete 12/07/2022 23:12:55 12/07/2022 23:33:49 Pending Labs Inlab 12/07/2022 23:33:50 12/07/2022 23:33:50 Lab Inlab 12/07/2022 23:33:50 12/07/2022 23:33:50 Discharge Complete 12/07/2022 23:58:26 12/08/2022 00:29:17 12/08/2022 00:29:17 Transfer Complete 12/08/2022 00:29:17 12/08/2022 00:29:17 12/08/2022 00:29:17 ADDRESS: [address] [place] [phone] [facility] NOTES: MEDICAL INFORMATION: Prescriptions Given: Medications to Continue with No Changes Other Medications ibuprofen (ibuprofen 600 mg Tab) 1 Tablets By Mouth every 6 hours. Refills: 0. PATIENT EDUCATION INFORMATION: Instructions: Home Test Information Follow up: With: Address: When: [address], [address] , [facility] [address] [place] [address] [facility] ([facility] In 3 days 12/10/2022 Comments: Few concerns about continued can take up test at home in approximately 1 week. Please follow-up with your primary care doctor next 2 to 3 days. Please return to the ED for any new or worsening symptoms. With: Address: When: LISANDRO MARIO , [place] In 3 days DIAGNOSIS: Encounter for medical screening examination Normal [facility] ED Note-Physicianon 12-09-19 ED Note-Physician Basic Information Time Seen: Damaris Jean Baptiste DO 12/07/2022 23:00 Chief Complaint Pt. presents to the ed with c/o wanting a test, last period was a month ago. History of Present Illness Patient is an 17-year-old female G2, P2 presenting to the ED for evaluation of concerns for . Patient states she has missed her period and is concerned about possibility of being . Patient denies any abdominal pain, vaginal bleeding, any other complaints. Review of Systems A 10 point review of systems is negative except as noted above. Medical and Surgical History: Reviewed and noted Social history: Lives at home Tobacco: Denies Physical Exam Vitals & Measurements T: 36.8 ?C(Oral) HR: 78(Peripheral) RR: 18 BP: 113/46 SpO2: 97% HT: 162.56 cm WT: 81 kg BMI: 30.65 General: Well developed, non toxic appearing, no acute distress HEENT: Head atraumatic, Mucosa moist, hearing grossly normal Neck: No JVD, tracheal deviation Cardiac: Regular rate, rhythm, no murmurs, or gallops, 2+ radial pulses Respiratory: Lungs clear to auscultation B/L, normal respiratory effort Abdomen: Soft non tender, no rebound or guarding, no peritoneal signs Extremities: No edema noted in the LE B/L, no tenderness to palpation Neurologic: Alert and oriented, speech clear Skin: No rashes or lesions Psych: Appropriate mood and behavior Medical Decision Making MEDICAL DECISION MAKING Number and Complexity of Problems Differential Diagnosis: [] [facility] Data External documents reviewed: [] My EKG interpretation: [] My CT interpretation: [] My X-ray interpretation: [] My Ultrasound interpretation: [] Decision rules/scores evaluated: [] Discussed with: [] Treatment and Disposition ED Course: Patient is an 17-year-old female presenting to the ED for evaluation of a test. Patient is nontoxic and on arrival, no acute distress. Urine test and urinalysis are ordered. Patient's test is negative, urinalysis negative for signs of infection. Patient is advised if she has persistent symptoms to repeat the test. She is follow-up with her primary care doctor in addition to PRISONER CLASSIFICATION INTERVIEWER for further evaluation management. She is to return to the ED for any new or worsening symptoms. Shared decision making: [] Code status: [] Assessment/Plan Encounter for medical screening examination (Z13.9: Encounter for screening, unspecified) Orders: U Beta Hcg Qual UA With Cult Reflex Urine Culture Disposition Plan Discharge Prescription List Prescriptions No active prescription medications Follow-up With When Contact Information Cara Bullard In 3 days 12/10/[address], [place] [address] [place] [address]- [facility] (1) Additional Instructions: Few concerns about continued can take up test at home in approximately 1 week. Please follow-up with your primary care doctor next 2 to 3 days. Please return to the ED for any new or worsening symptoms. XXXX NONE In 3 days [place] Additional Instructions: Patient Education Home Test Information Problem List/Past Medical History Ongoing 37 weeks gestation of ADHD (attention deficit hyperactivity disorder), combined type Encounter for supervision of normal first , third trimester Shortness of breath in pediatric patient Very young maternal age, antepartum Historical Acute gastroenteritis Acute low back pain due to trauma Blurry vision, left eye Chest pain Inspiratory stridor Post-traumatic stress syndrome Strep pharyngitis Viral gastroenteritis Vomiting Procedure/Surgical History None. Medications Inpatient No active inpatient medications Home ibuprofen 600 mg Tab, 600 mg= 1 tab(s), Oral, q6hr Allergies No Known Allergies No Known Medication Allergies Social History Alcohol - Denies Alcohol Use, 05/18/2018 Employment/School Unemployed, 08/07/2022 Home/Environment Lives with Significant other. Living situation: Home/Independent., 08/07/2022 Nutrition/Health Regular, 08/07/2022 Substance Abuse - Denies Substance Abuse, 05/18/2018 Tobacco - Denies Tobacco Use, 07/29/2018 Never (less than 100 in lifetime) Tobacco Use:. Never Smokeless Tobacco Use:., 03/25/2019 Never (less than 100 in lifetime) Tobacco Use:., 06/20/2018 Family History Family history is negative Lab Results UA Spec Desc: Clean Catch (12/07/22 23:15:00) UA Color: Dark Yellow3 Abnormal (12/07/22 23:15:00) UA Clarity: Slightly Cloudy3 Abnormal (12/07/22 23:15:00) UA Spec Grav: >=1.030 (12/07/22 23:15:00) UA pH: 6.0 (12/07/22 23:15:00) UA Protein: Trace2 Abnormal (12/07/22 23:15:00) UA Glucose: NEGATIVE1 (12/07/22 23:15:00) UA Ketones: NEGATIVE1 (12/07/22 23:15:00) UA Bili: NEGATIVE1 (12/07/22 23:15:00) UA Blood: NEGATIVE1 (12/07/22 23:15:00) UA Nitrite: NEGATIVE1 (12/07/22 23:15:00) UA (more content not included)... Normal [facility] Comment on above: Result Comment: Elec tronically Signed By: Damaris Jean Baptiste DO\.br\Date and Time Signed: 12/08/22 02:32 EDT ED Patient Education Noteon 12-08-2022 ED Patient Education Note Obstetrics and Gynecology Home Test Information Why am I having this test? A home test helps you determine whether you are or not. There are several types of home tests that can be bought at a store or pharmacy. Home tests are very accurate when: ? You are at least 3?4 weeks . ? It has been 1?2 weeks since your missed period. ? You use the test according to the package instructions. What is being tested? A home test detects the presence of a hormone called human chorionic gonadotropin (hCG) in your urine. HCG is produced by cells of the placenta. The placenta is the organ that forms to nourish and support a developing baby. What kind of sample is taken? Home tests require a urine sample. How do I collect samples at home? Most kits use a plastic testing device with a strip of paper that indicates whether there is hCG in your urine. Follow the test package instructions very carefully for how to test your urine. Depending on the test, you may need to: ? Urinate directly onto the stick. ? Urinate into a cup. Wait for the results as directed by the package instructions. The amount of time may be different for each type of test. How do I prepare for this test? For best results, collect the sample the first time you urinate in the morning. This when the concentration of hCG is highest. How are the results reported? Follow the test package instructions for how to read your test results. Depending on the test, results may be displayed as: ? A plus or a minus sign. ? One or two lines. ? or not . What do the results mean? Positive test result A positive home test means that you are . It is important to schedule an appointment with your health care provider to start care. Your health care provider may perform additional testing to confirm the and to determine that you have a normal . Negative test result If you have a negative home test you may want to wait a few days and then repeat the home test. Many kits contain a second test as a back-up. If you have a negative test and also have symptoms of , contact your health care provider. Your health care provider can test a sample of your blood to check for . A blood test may return a positive result even if a urine test was negative because blood tests are more accurate. This means blood tests can detect hCG earlier than urine tests. Talk with your health care provider about what your results mean. Some things to know about a home test Sometimes, a home test may report that you are when you are not (false-positive result). This can happen if you: ? Are taking certain medicines, such as: ? Medicine to control seizures. ? Anti-anxiety medicine. ? Fertility medicine with hCG. ? Have a medical condition that affects your hormone levels. ? Had a recent loss (miscarriage) or . Sometimes, a home test may report that you are not when you are (false-negative result). This can happen if you: ? Take the test too early in your . Before 3?4 weeks of , there may not be enough hCG to detect. ? Drink a lot of liquid before the test. ? Use an test. ? Are taking certain medicines, such as antihistamines or water pills (diuretics). Questions to ask your health care provider Ask your health care provider, or the department that is doing the test: ? When will my results be ready? ? How will I get my results? ? What are my treatment options? ? What other tests do I need? ? What are my next steps? Summary ? A home test helps you determine whether you are or not by detecting the presence of the hormone human chorionic gonadotropin (hCG) in a sample of your urine. ? Follow the test package instructions very carefully. For best results, collect the sample the first time you urinate in the morning. This when the concentration of hCG is highest. ? Home tests are very accurate when you are 3?4 weeks or when it has been 1?2 weeks since your missed period. ? A positive home test means that you are . It is important to schedule an appointment with your health care provider to start care. This information is not intended to replace advice given to you by your health care provider. Make sure you discuss any questions you have with your health care provider. Document Revised: 10/25/2020 Document Reviewed: 10/25/2020 Elsevier Patient Education ? 2022 [employer]. Normal [facility] ED Patient Summaryon 023 ED Patient Summary [address] [address] Patient Discharge Instructions Person Information Name: JORDIN TYLER Age: 17 Years Arrival Date: 12/07/2022 22:58:31 Discharge Diagnosis: Encounter for medical screening examination Primary Care Physician: NONE, XXXX Provider Information Primary Provider: Damaris JeanB aptiste DO Advanced Flight Physician:None The exam and treatment you received in the Emergency Department were for an urgent problem and are not intended as complete care. It is important that you follow up with a doctor, nurse practitioner, or physician?s assistant chief nursing officer for ongoing care. If your symptoms become worse or you do not improve as expected and you are unable to reach your usual health care provider, you should return to the Emergency Department. We are available 24 hours a day. JORDIN TYLER has been given the following list of patient education materials, prescriptions and follow-up instructions: Follow-up Instructions: With: Address: When: Cara Bullard [facility] [address], [address], [facility] [address] [place] [address] Business (1) In 3 days 12/10/2022 Comments: Few concerns about continued can take up test at home in approximately 1 week. Please follow-up with your primary care doctor next 2 to 3 days. Please return to the ED for any new or worsening symptoms. With: Address: When: XXXX NONE , [place] In 3 days In the event that this physician does not participate in your insurance network, please consult with your insurance company to find a nearby participating provider. Patient Education Materials: Home Test Information A MESSAGE TO ALL PATIENTS REGARDING OPIOIDS PRESCRIPTION OPIOIDS: WHAT YOU NEED TO KNOW Prescription opioids can be used to help relieve bhmnmjvz-uk-ocozhw pain and are often prescribed following a surgery or injury, or for certain health conditions. These medications can be an important part of the treatment but also come with serious risks. It is important to work with your healthcare provider to make sure you are getting the safest, most effective care. WHAT ARE THE RISKS AND SIDE EFFECTS OF OPIOID USE? Prescription opioids carry serious risks of addiction and overdose, especially with prolonged use. An opioid overdose, often marked by slowed breathing, can cause sudden . The use of prescription opioids can have a number of side effects as well, even when taken as directed: ? Tolerance?meaning you might need to take more of the medication for the same pain relief ? Physical dependence?meaning you have symptoms of withdrawal when a medication is stopped ? Increased sensitivity to pain ? Constipation ? Nausea, vomiting, and dry mouth ? Sleepiness and dizziness ? Confusion ? Depression ? Low levels of testosterone that can result in lower sex drive, energy, and strength ? Itching and sweating RISKS ARE GREATER WITH: ? History of drug misuse, substance use disorder, or overdose ? Mental health conditions (such as depression or anxiety) ? Sleep apnea ? Older age (65 years and older) ? Avoid alcohol while taking prescription opioids. Also, unless specifically advised by your health care provider, medications to avoid include: ? Benzodiazepines (such as Xanax or Valium) ? Muscle relaxants (such as Soma or Flexeril) ? Hypnotics (such as Ambien or Lunesta) ? Other prescription opioids KNOW YOUR OPTIONS Talk to your health care provider about ways to manage your pain that don?t involve prescription opioids. Some of these options may actually work better and have fewer risks and side effects. Options may include: ? Pain relievers such as acetaminophen, ibuprofen, and naproxen ? Some medication that are also used for depression or seizures ? Physical therapy and exercise ? Cognitive behavioral therapy, a psychological, goal-directed approach, in which patients learn how to modify physical, behavioral, and emotional triggers of pain and stress. IF YOU ARE PRESCRIBED OPIOIDS FOR PAIN: ? Never take opioids in greater amounts or more often than prescribed. ? Follow up with your primary health care provider. o Work together to create a plan on how to manage your pain. o Talk about ways to help manage your pain that don?t involve prescription opioids. o Talk about any and all concerns and side effects. ? Help prevent misuse and abuse o Never sell or share prescription opioids. o Never use another person?s prescription opioids. ? Store prescription opioids in a secure place and out of reach of others (this may include visitors, children, friends, and family). ? Safely dispose of unused prescription opioids: Find your community drug take-back program or your pharmacy mail-back program, or flush them down the toilet, following guidance from the Food and Drug Administration (www.fd (more content not included)... Normal [facility] Consent for Treatmenton Consent for Treatment [id number] Normal [facility] Laboratory - Microbiology an d Antimicrobial susceptibilityOrdered By: Felicita Barrow on 12-07-2022 Bacteria identified Cx Nom (U) 1,000 cfu/ml Mixed skin contaminants [facility] SEROLOGYOrdered By: Stefani Trejo on 12-07-2022 HCG.beta subunit (U) [Moles/Vol] Negative Normal [facility] Man Sero U BetaHcg Qualon 12-07-2022 HCG.beta subunit (U) [Moles/Vol] Negative Normal [facility] Comment on above: Performed By: #### 1 [id number] #### [facility] [address] [place] [address] UA With Cult Reflexon 2022 Bacteria LM Ql (Urine sed) TRACE Normal Trace [facility] Comment on above: Performed By: #### 1 [id number] #### [facility] [address] [place] [address] Bilirubin Ql (U) Negative Normal Negative [facility] Comment on above: Performed By: #### 1 [id number] #### [facility] [address] [place] [address] Clarity (U) SL CLOUDY Abnormal Clear [facility] Comment on above: Performed By: #### 1 [id number] #### [facility] [address] [place] [address] Color (U) DARK YELLO Abnormal Yellow [facility] Comment on above: Performed By: #### 1 [id number] #### [facility] [address] [place] [address] Epithelial cells.squamous LM.HPF (Urine sed) [#/Area] 5-8 Normal 0-2 [facility] Comment on above: Performed By: #### 1 [id number] #### [facility] [address] [place] [address] Glucose Test strip (U) [Mass/Vol] Negative Normal Negative [facility] Comment on above: Performed By: #### 1 [id number] #### [facility] [address] [place] [address] Hemoglobin Ql (U) Negative Normal Negative [facility] Comment on above: Performed By: #### 1 [id number] #### [facility] [address] [place] [address] Ketones (U) [Mass/Vol] Negative Normal Negative [facility] Comment on above: Performed By: #### 1 [id number] #### [facility] [address] [place] [address] [place].plasma/[place].R BC (Bld) [Mass ratio] 0-3 Normal 0-3 [facility] Comment on above: Performed By: #### 1 [id number] #### [facility] [address] [place] [address] Mucus Ql (Urine sed) 3+ Normal [facility] Comment on above: Performed By: #### 1 [id number] #### [facility] [address] [place] [address] Nitrite Ql (U) Negative Normal Negative [facility] Comment on above: Performed By: #### 1 [id number] #### [facility] [address] [place] [address] pH (U) 6.0 [pH] Invalid Interpretation Code 5.0-9.0 [facility] Comment on above: Performed By: #### 1 [id number] #### [facility] [address] [place] [address] Protein (U) [Mass/Vol] TRACE Abnormal Negative [facility] Comment on above: Performed By: #### 1 [id number] #### [facility] [address] [place] [address] Specific gravity (U) [Rel density] >=1.030 Invalid Interpretation Code 1.005-1.030 [facility] Comment on above: Performed By: #### 1 [id number] #### [facility] [address] [place] [address] Type of Urine collection method Clean Catch Normal [facility] Comment on above: Performed By: #### 1 [id number] #### [facility] [address] [place] [address] Urobilinogen Qn (U) 0.2 {Karri'U}/dL Normal 0.0-1.0 [facility] Comment on above: Performed By: #### 1 [id number] #### [facility] [address] [place] [address] WBC Auto Ql (U) Negative Normal Negative [facility] Comment on above: Performed By: #### 1 [id number] #### [facility] [address] [place] [address] WBC LM.HPF (Urine sed) [#/Area] 6-15 Abnormal 0-5 [facility] Comment on above: Performed By: #### 1 [id number] #### [facility] [address] [place] [address] URINALYSISOrdered By: Raman Trejo on 12-07-2022 Bacteria LM Ql (Urine sed) Trace /HPF Normal Trace/HPF [facility] UA Auto SS Bilirubin Ql (U) Negative (12/07/22 11:15 PM) Normal Negative [facility] UA Auto SS Clarity (U) Slightly Cloudy *ABN* (12/07/22 11:15 PM) Invalid Interpretation Code Clear [facility] UA Auto SS Color (U) Dark Yellow *ABN* (12/07/22 11:15 PM) Invalid Interpretation Code Yellow [facility] UA Auto SS Epithelial cells.squamous LM.HPF (Urine sed) [#/Area] 5-8 /HPF Normal 0-2/HPF [facility] UA Aut o SS Glucose Test strip (U) [Mass/Vol] Negative (12/07/22 11:15 PM) Normal Negative [facility] UA Auto SS Hemoglobin Ql (U) Negative (12/07/22 11:15 PM) Normal Negative [facility] UA Auto SS Ketones (U) [Mass/Vol] Negative (12/07/22 11:15 PM) Normal Negative [facility] UA Auto SS [place].plasma/[place].R BC (Bld) [Mass ratio] 0-3 /HPF Normal 0-3/HPF [facility] UA Au to SS Mucus Ql (Urine sed) 3+ (12/07/22 11:15 PM) Normal [facility] UA Auto SS Nitrite Ql (U) Negative (12/07/22 11:15 PM) Normal Negative [facility] UA Auto SS pH (U) 6.0 *NA* (12/07/22 11:15 PM) Invalid Interpretation Code 5.0 - 9.0 [facility] UA Auto SS Protein (U) [Mass/Vol] Trace *ABN* (12/07/22 11:15 PM) Invalid Interpretation Code Negative [facility] UA Auto SS Specific gravity (U) [Rel density] >=1.030 *NA* (12/07/22 11:15 PM) Invalid Interpretation Code 1.005 - 1.030 [facility] UA Auto SS UA Spec Desc Clean Catch (12/07/22 11:15 PM) Normal [facility] UA Auto SS Urobilinogen Qn (U) 0.5799271 {Karri'U}/dL Normal 0.0 - 1.0 EU/dL [facility] UA Auto SS WBC Auto Ql (U) Negative (12/07/22 11:15 PM) Normal Negative [facility] UA Auto SS WBC LM.HPF (Urine sed) [#/Area] 6-15 /HPF Invalid Interpretation Code 0-5/HPF [facility] UA Auto SS ED Note-Physicianon 11-01-19 ED Note-Physician Basic Information Time Seen: Renny ROBERT, Donavan Mendez. 10/30/2022 10:56 Chief Complaint Patient presents with right sided dental pain for 3 days. All of my teeth should be pulled . History of Present Illness 17-year-old female reports emerged department with chief complaint of lower right dental pain. Reports of going on for last 3 days. Reports that she does have bad teeth, but does not have a dentist. Reports that she believes that she needs all of her teeth pulled at some time. States that she has not taken anything for pain. Denies any fevers chills nausea or vomiting. Just want to get checked out because of the pain. Review of Systems A 10 point review of systems is negative except as noted above. Medical and Surgical History: Reviewed and noted Social history: Lives at home Family History: Reviewed. Tobacco: Denies Physical Exam Vitals & Measurements T: 36.8 ?C(Oral) HR: 80(Peripheral) RR: 16 BP: 110/72 SpO2: 97% HT: 165.1 cm WT: 80.5 kg BMI: 29.53 General: The patient appears well and in no apparent distress. Patient is resting comfortably in chair. Afebrile Skin: Warm, dry, no pallor noted. Head: Normocephalic, atraumatic Neck: No JVD Eye: PERRLA, EOMI ENT: Moist mucus membranes. Poor dentition noted, with tenderness on the lower right side of the jawline. Mild swelling located in the lower right jawline. Cardiovascular: Regular rate normal peripheral perfusion Respiratory: No respiratory distress no accessory muscle use no obvious audible wheezing Chest Wall: no deformity Musculoskeletal: normal ROM, no deformity, no swelling GI: No obvious distention so Neurological: A&O moves all extremities equal strength and symmetry Psychiatric: Cooperative and appropriate Medical Decision Making MEDICAL DECISION MAKING Number and Complexity of Problems Differential Diagnosis: [] [facility] Data External documents reviewed: [] My EKG interpretation: [] My CT interpretation: [] My X-ray interpretation: [] My Ultrasound interpretation: [] Decision rules/scores evaluated: [] Discussed with: [] Treatment and Disposition ED Course: 17-year-old female reports emergency department with chief complaint of right-sided pain. On physical exam, there is some very mild swelling of the lower right jawline, with tenderness to palpation over this area. No signs of fevers chills nausea or vomiting. No signs of systemic infection. Due to her concerns, she will be started on Augmentin. Discussed that she is ultimately follow-up with a dentist. Discussed return precautions. Follow-up with your primary care provider in 3 to 5 days. If symptoms worsen, do not improve, or new symptoms arise please report back to emergency department for further evaluation. The patient was understanding and agreeable to plan moving forward. Shared decision making: [] Code status: [] Assessment/Plan Pain, dental (K08.89: Other specified disorders of teeth and supporting structures) Orders: amoxicillin-clavula aj, 1 tab(s), Oral, q12hr for 10 day(s), 20 tab(s), Refill(s) 0, [facility]/pharmacy #[id number], 165.1, cm, 10/30/22 10:55:00 EDT, Height/Length Dosing, 80.5, kg, 10/30/22 10:55:00 EDT, Weight Dosing Disposition Plan Patient Discharge Condition Stable Discharge Disposition To home Discharge Prescription List Prescriptions Augmentin 875 mg-125 mg Tab, 1 tab(s), Oral, q12hr Follow-up With When Contact Information Dental: [facility] [phone] In 3 days 11/02/2022 EDT Additional Instructions: Dental: [facility] [phone] In 3 days 11/02/2022 EDT Additional Instructions: Dental: [facility] [phone] In 3 days 11/02/2022 EDT Additional Instructions: Patient Education Dental Pain, Zhhp-oc-Edwe Attestation Patient seen and evaluated by the physician assistant chief nursing officer. Attending physician was present in the emergency department and supervised care. This visit was performed by both the physician and an APC. I performed all aspects of the MDM as documented. This report was transcribed using voice recognition software. Every effort was made to ensure accuracy, however, inadvertently computerized machine cementer mistakes may be present. Appropriate healthcare PPE was used in evaluating this patient. The patient was placed in a mask. The healthcare provider was wearing mask, gloves, and utilizing proper hand hygiene. All equipment was properly cleansed. Problem List/Past Medical History Ongoing 37 weeks gestation of ADHD (attention deficit hyperactivity disorder), combined type Encounter for supervision of normal first , third trimester Shortness of breath in pediatric patient Very young maternal age, antepartum Historical Acute gastroenteritis Acute low back pain due to trauma Blurry vision, left eye Chest pain Inspiratory stridor Post-traumatic stress syndrome Strep pharyngitis Viral gastroenteritis (more content not included)... Normal [facility] Comment on above: Result Comment: Elec tronically Signed By: Donavan Lawson PA-C\.br\Date and Time Signed: 10/30/22 12:22 EDT\.br\Electronically Co-Signed By: Steven Alatorre DO\.br\Date and Time Co-Signed: 10/31/22 08:00 EDT Consent for Treatmenton 10-07 Consent for Treatment [id number] [id number]:[id number] Normal [facility] Discharge Instructionson Discharge Instructions [id number]:127 Normal [facility] ED Clinical Summaryon 2022 ED Clinical Summary [place] [id number] ED Clinical Summary Person Information Name: JORDIN TYLER Kristan/[facility] Age: 17 Years : 2005 Sex: Female Language: Guatemalan PCP: NONE, XXXX Marital Status: Single Phone: [phone] Visit Id: Visit Reason: Dental pain; MOUTH PAIN AND SWELLING, FEVER, DIZZINESS Speciality: Acuity: 5 Enc Type: Emergency Med Service: Emergency Arrival: 10/30/2022 10:43:07 Discharge: 10/30/2022 11:18:53 LOS: 000 00:35 Checkin: 10/30/2022 10:43:07 Checkout: 10/30/2022 11:18:53 Dispo Type: Home (Routine DC) EVENTS: Event Name Event Status Request Date/Time Start Date/Time Complete Date/Time Arrive Complete 10/30/2022 10:43:07 10/30/2022 10:43:07 10/30/2022 10:43:07 Document Home Meds Request 10/30/2022 10:43:07 Triage Complete 10/30/2022 10:43:07 10/30/2022 10:54:59 10/30/2022 10:54:59 Bed Assign Complete 10/30/2022 10:51:32 10/30/2022 10:51:32 10/30/2022 10:51:32 Dr Exam Complete 10/30/2022 10:51:32 10/30/2022 10:56:21 10/30/2022 10:56:21 RN Exam Complete 10/30/2022 10:51:32 10/30/2022 10:57:46 10/30/2022 10:57:46 Registration Complete 10/30/2022 10:56:21 10/30/2022 11:05:48 10/30/2022 11:05:48 Dr Exam Complete 10/30/2022 10:58:58 10/30/2022 10:58:58 10/30/2022 10:58:58 Reg Complete Request 10/30/2022 11:05:48 Reg Bed Request Complete 10/30/2022 11:05:48 10/30/2022 11:05:48 10/30/2022 11:05:48 Discharge Complete 10/30/2022 11:12:18 10/30/2022 11:19:01 10/30/2022 11:19:01 Transfer Complete 10/30/2022 11:19:01 10/30/2022 11:19:01 10/30/2022 11:19:01 ADDRESS: [address] [place] [address] [id number] [facility] DOC NOTES: MEDICAL INFORMATION: Prescriptions Given: New Medications [id number], [address] [place], [place] [id number], [phone] amoxicillin-clavula aj (Augmentin 875 mg-125 mg Tab) 1 Tablets By Mouth every 12 hours for 10 Days. Refills: 0. Medications to Continue with No Changes Other Medications ibuprofen (ibuprofen 600 mg Tab) 1 Tablets By Mouth every 6 hours. Refills: 0. PATIENT EDUCATION INFORMATION: Instructions: Dental Pain, Wbvs-ia-Daah Follow up: With: Address: When: Dental: [facility] [phone] In 3 days 11/02/2022 With: Address: When: Dental: [facility] [phone] In 3 days 11/02/2022 With: Address: When: Dental: [facility] [phone] In 3 days 11/02/2022 DIAGNOSIS: Pain, dental Normal [facility] ED Patient Education Noteon 10-30-2022 ED Patient Education Note Dentistry Dental Pain Dental pain is often a sign that something is wrong with your teeth or gums. You can also have pain after a dental treatment. If you have dental pain, it is important to contact your dentist, especially if the cause of the pain is not known. Dental pain may hurt a lot or a little and can be caused by many things, including: ? Tooth decay (cavities or caries). ? Infection. ? The inner part of the tooth being filled with pus (an abscess). ? Injury. ? A crack in the tooth. ? Gums that move back and expose the root of a tooth. ? Gum disease. ? Abnormal grinding or clenching of teeth. ? Not taking good care of your teeth. Sometimes the cause of pain is not known. You may have pain all the time, or it may happen only when you are: ? Chewing. ? Exposed to hot or cold temperatures. ? Eating or drinking foods or drinks that have a lot of sugar in them, such as soda or candy. Follow these instructions at home: Medicines ? Take zedt-sjb-pnyjhex and prescription medicines only as told by your dentist. ? If you were prescribed an antibiotic medicine, take it as told by your dentist. Do not stop taking it even if you start to feel better. Eating and drinking Do not eat foods or drinks that cause you pain. These include: ? Very hot or very cold foods or drinks. ? Sweet or sugary foods or drinks. Managing pain and swelling ? If told, put ice on the painful area of your face. To do this: ? Put ice in a plastic bag. ? Place a towel between your skin and the bag. ? Leave the ice on for 20 minutes, 2?3 times a day. ? Take off the ice if your skin turns bright red. This is very important. If you cannot feel pain, heat, or cold, you have a greater risk of damage to the area. Brushing your teeth ? Gill your teeth twice a day using a fluoride toothpaste. ? Use a toothpaste made for sensitive teeth as told by your dentist. ? Use a soft toothbrush. General instructions ? Floss your teeth at least once a day. ? Do not put heat on the outside of your face. ? Rinse your mouth often with salt water. To make salt water, dissolve ??1 tsp (3?6 g) of salt in 1 cup (237 mL) of warm water. ? Watch your dental pain. Let your dentist know if there are any changes. ? Keep all follow-up visits. Contact a dentist if: ? You have dental pain and you do not know why. ? Medicine does not help your pain. ? Your symptoms get worse. ? You have new symptoms. Get help right away if: ? You cannot open your mouth. ? You are having trouble breathing or swallowing. ? You have a fever. ? Your face, neck, or jaw is swollen. These symptoms may be an emergency. Get help right away. Call your local emergency services (911 in the [place] ? Do not wait to see if the symptoms will go away. ? Do not drive yourself to the hospital. Summary ? Dental pain may be caused by many things, including tooth decay, injury, or infection. In some cases, the cause is not known. ? Dental pain may hurt a lot or very little. You may have pain all the time, or you may have it only when you eat or drink. ? Take qypl-dth-ldefxnq and prescription medicines only as told by your dentist. ? Watch your dental pain for any changes. Let your dentist know if symptoms get worse. This information is not intended to replace advice given to you by your health care provider. Make sure you discuss any questions you have with your health care provider. Document Revised: 10/27/2020 Document Reviewed: 10/27/2020 [employer] Patient Education ? 2022 [employer] [facility] ED Patient Summaryon 023 ED Patient Summary [place] [id number] Patient Discharge Instructions Person Information Name: JORDIN TYLER Age: 17 Years Arrival Date: 10/30/2022 10:43:07 Discharge Diagnosis: Pain, dental Primary Care Physician: NONE, XXXX Provider Information Primary Provider: Steven Alatorre DO Advanced Flight Physician:None The exam and treatment you received in the Emergency Department were for an urgent problem and are not intended as complete care. It is important that you follow up with a doctor, nurse practitioner, or physician?s assistant chief nursing officer for ongoing care. If your symptoms become worse or you do not improve as expected and you are unable to reach your usual health care provider, you should return to the Emergency Department. We are available 24 hours a day. JORDIN TYLER has been given the following list of patient education materials, prescriptions and follow-up instructions: Follow-up Instructions: With: Address: When: Dental: [facility] [phone] In 3 days 11/02/2022 With: Address: When: Dental: [facility] [phone] In 3 days 11/02/2022 With: Address: When: Dental: [facility] [phone] In 3 days 11/02/2022 In the event that this physician does not participate in your insurance network, please consult with your insurance company to find a nearby participating provider. Patient Education Materials: Dental Pain, Hsoo-yn-Sacd A MESSAGE TO ALL PATIENTS REGARDING OPIOIDS PRESCRIPTION OPIOIDS: WHAT YOU NEED TO KNOW Prescription opioids can be used to help relieve waryfqzm-vu-xajdzn pain and are often prescribed following a surgery or injury, or for certain health conditions. These medications can be an important part of the treatment but also come with serious risks. It is important to work with your healthcare provider to make sure you are getting the safest, most effective care. WHAT ARE THE RISKS AND SIDE EFFECTS OF OPIOID USE? Prescription opioids carry serious risks of addiction and overdose, especially with prolonged use. An opioid overdose, often marked by slowed breathing, can cause sudden . The use of prescription opioids can have a number of side effects as well, even when taken as directed: ? Tolerance?meaning you might need to take more of the medication for the same pain relief ? Physical dependence?meaning you have symptoms of withdrawal when a medication is stopped ? Increased sensitivity to pain ? Constipation ? Nausea, vomiting, and dry mouth ? Sleepiness and dizziness ? Confusion ? Depression ? Low levels of testosterone that can result in lower sex drive, energy, and strength ? Itching and sweating RISKS ARE GREATER WITH: ? History of drug misuse, substance use disorder, or overdose ? Mental health conditions (such as depression or anxiety) ? Sleep apnea ? Older age (65 years and older) ? Avoid alcohol while taking prescription opioids. Also, unless specifically advised by your health care provider, medications to avoid include: ? Benzodiazepines (such as Xanax or Valium) ? Muscle relaxants (such as Soma or Flexeril) ? Hypnotics (such as Ambien or Lunesta) ? Other prescription opioids KNOW YOUR OPTIONS Talk to your health care provider about ways to manage your pain that don?t involve prescription opioids. Some of these options may actually work better and have fewer risks and side effects. Options may include: ? Pain relievers such as acetaminophen, ibuprofen, and naproxen ? Some medication that are also used for depression or seizures ? Physical therapy and exercise ? Cognitive behavioral therapy, a psychological, goal-directed approach, in which patients learn how to modify physical, behavioral, and emotional triggers of pain and stress. IF YOU ARE PRESCRIBED OPIOIDS FOR PAIN: ? Never take opioids in greater amounts or more often than prescribed. ? Follow up with your primary health care provider. o Work together to create a plan on how to manage your pain. o Talk about ways to help manage your pain that don?t involve prescription opioids. o Talk about any and all concerns and side effects. ? Help prevent misuse and abuse o Never sell or share prescription opioids. o Never use another person?s prescription opioids. ? Store prescription opioids in a secure place and out of reach of others (this may include visitors, children, friends, and family). ? Safely dispose of unused prescription opioids: Find your community drug take-back program or your pharmacy mail-back program, or flush them down the toilet, following guidance from the Food and Drug Administration (www.fda.gov/Drugs/ ResourcesForYou). ? Visit www.cdc.gov/drugove rdose to learn about the risks of opioids abuse and overdose. ? If you believe you may be struggling with addiction, tell your health care professio (more content not included)... Normal [facility] Nursing Assessmenton 023 Nursing Assessment [id number] 43#[email or web address]:127 Normal [facility] Insurance Correspondence Off iceon 08-11-2022 Insurance Correspondence Office [id number]#[email or web address]:127 Normal [facility] Nursing Assessmenton 023 Nursing Assessment [id number]#[email or web address]:127 Normal [facility] Chlamydia/Gonococcus, NAAon 08-10-2022 C. trachomatis rRNA TIM+probe Ql (Unsp spec) Negative Invalid Interpretation Code Negative [facility] Comment on above: Performed By: #### 1 [id number] #### [facility] [address] [place] [address] N. gonorrhoeae rRNA TIM+probe Ql (Unsp spec) Negative Invalid Interpretation Code Negative [facility] Comment on above: Result Comment: [facility] at: [facility] [address] [place], [place] [id number] MD Rodriguez Briones Performed By: #### 1 [id number] #### [facility] [address] [place] [address] Discharge Instructionson Discharge Instructions [id number]#[id number]:127 Normal [facility] Inpatient Clinical Summaryon 08-10-2022 Inpatient Clinical Summary [address] [address] Clinical Summary Person Information Name: JORDIN TYLER [facility] Age: 17 Years : 2005 Sex: Female PCP: NONE, XXXX Marital Status: Single Phone: [phone] Race: White Ethnicity: Non- or Language: Guatemalan Visit Id: Visit Reason: Speciality: Acuity: 2 PP Enc Type: Inpatient Med Service: Obstetrics Arrival: 08/07/2022 06:12:23 Discharge: 08/10/2022 12:40:00 Dispo Type: Home (Routine DC) Address: [address] [place] [address] [phone] Provider Notes: Diagnosis: 37 weeks gestation of ; Encounter for supervision of normal first , third trimester Problems Active 37 weeks gestation of Encounter for supervision of normal first , third trimester Very young maternal age, antepartum Shortness of breath in pediatric patient ADHD (attention deficit hyperactivity disorder), combined type Smoking Status: Never Smoker Functional Status: Sensory Deficits: History of Falls: Mobility Assistance Prior to Admission: ADLs: Independent Current Level of Assistance for Self-Care/Mobility: Cognitive Status: Allergies No Known Medication Allergies No Known Allergies Laboratory or Other Results This Visit (last charted value for your 08/07/2022 visit) Hematology 08/09/2022 5:58 AM Hypochromasia: Present RBC Morph: See Morphology Microcyte: Present Hct: 21.8 % -- Normal range between ( 34.0 and 46.0 ) HGB: 7.1 gm/dL -- Normal range between ( 12.0 and 16.0 ) RBC: 3.1 E12/L -- Normal range between ( 4.3 and 5.9 ) RDW: 16.0 % -- Normal range between ( 10.9 and 14.2 ) MCH: 22.8 pg -- Normal range between ( 27.0 and 34.0 ) MCHC: 32.6 gm/dL -- Normal range between ( 31.4 and 36.0 ) MCV: 69.9 fL -- Normal range between ( 80.0 and 100.0 ) MPV: 9.1 fL -- Normal range between ( 6.4 and 10.8 ) Platelet: 154.0 E9/L -- Normal range between ( 150.0 and 500.0 ) WBC: 8.1 E9/L -- Normal range between ( 4.0 and 11.0 ) 08/07/2022 12:49 PM Polychromasia: Present Ovalocytes: Present Large Plt: Present Anisocytosis: Present Urinalysis 08/07/2022 5:42 PM UA Bili: Negative UA Color: Yellow UA Glucose: Negative UA Ketones: Negative UA Leuk Est: Negative UA Nitrite: Negative UA Protein: Negative UA RBC: 4-20 /HPF UA Squam Epithelial: 0-2 /HPF UA Urobilinogen: 0.2 EU/dL -- Normal range between ( 0.0 and 1.0 ) UA WBC: 0-5 /HPF UA Spec Desc: Catheter UA Blood: 3+ UA Clarity: Clear UA pH: 8.0 -- Normal range between ( 5.0 and 9.0 ) UA Spec Grav: 1.015 -- Normal range between ( 1.005 and 1.030 ) 08/07/2022 6:30 AM UA Bacteria: 1+ /HPF UA Mucous: 1+ UA Amorph Lis: Present Microbiology 08/07/2022 6:30 AM Urine Culture: NEG Blood Bank 08/07/2022 12:49 PM ABO/Rh: A POS ABSC Gel Interp: Negative Reference Laboratory Testing 08/07/2022 2:16 PM Chlamydia trach, TIM: Negative Neisseria tigist, TIM: Negative Molecular Diagnostics 08/07/2022 1:42 PM Group B Strep colonization by PCR: Negative Measurements: Height: 165.1 cm Weight: 84.5 kg Blood Pressure: 104 mmHg / 77 mmHg BMI: 31 kg/m2 Procedures No Procedures Documented Immunizations diphtheria/pertussi s, acel/tetanus adult (08/09/2022) Final Med List: ibuprofen (ibuprofen 600 mg Tab) 1 Tablets By Mouth every 6 hours. Refills: 0. Care Team Members: Attending Physician: Jerry WILSON DO Consulting Physician: Referring Physician: Follow up: With: Address: When: Eduardo Butler [address] [place] [address] [place] [phone] Business (1) Within 6 weeks Comments: Call Dr if fever>100.5 F, heavy bleeding Call for any problems. Patient Education Information: Normal [facility] Inpatient Patient Summaryon 08-10-2022 Inpatient Patient Summary [address] [address] Patient Discharge Instructions PERSON INFORMATION Name: JORDIN TYLER Date of : 2005 Current Date: 08/10/2022 12:42:13 PHYSICIANS Admitting Physician: Jerry WILSON DO Primary Care Physician: NONE, XXXX PCP Phone Number: Comment: Discharge Diagnosis: 37 weeks gestation of ; Encounter for supervision of normal first , third trimester Condition at Discharge: Improved JORDIN TYLER has been given the following list of follow-up instructions, prescriptions, and patient education materials: PATIENT FOLLOW-UP INFORMATION Diet: Regular Activity: Ambulate as tolerated, Expect mild pain, Expect minimal amount of drainage and/or bleeding, Activity as tolerated Wound Care Instructions: Remove Your Dressing IN: Days Call Your Doctor For: Persistent or heavy bleeding, Temperature above 101.5 degrees IF UNABLE TO CONTACT YOUR PHYSICIAN AND YOU FEEL IT IS AN EMERGENCY, GO TO THE NEAREST EMERGENCY ROOM OR CALL 911 Home Treatment: Devices/Equipment: Special Services: Additional Instructions: Physician to provide the following pending test results: Follow up: With: Address: When: Eduardo Leach [place] [address] [address] Business (1) Within 6 weeks Comments: Call Dr if fever>100.5 F, heavy bleeding Call for any problems. In the event that this physician does not participate in your insurance network, please consult with your insurance company to find a nearby participating provider. Comment: IJAYSON SHIANNE A, have received the attached patient education materials/instructi ons and have verbalized understanding. Patient Signature Date Clinican/Nurse Signature Date MEDICATION LIST New Medications [id number], [address] [place], [place] [id number], [phone] ibuprofen (ibuprofen 600 mg Tab) 1 Tablets By Mouth every 6 hours. Refills: 0. Last Dose: Next Dose: Pharmacy Information: KARLA Galan , Bernardino Galan PATIENT EDUCATION INFORMATION Instructions: Medication Leaflets: You may receive a survey from Stephanie Carter asking you to rate your care experience. Your feedback is important and will help us understand what we do well and how we can improve the quality of care we provide to you, your loved ones and our community. It?s an honor to serve you. Thank you for choosing [facility] Normal [facility] C Urineon 08-09-2022 Bacteria identified Cx Nom (U) Microbiology PROCEDURE: Urine Culture [R1] SOURCE: U CleanCatch BODY SITE: COLLECTED DATE/TIME: 08/07/2022 06:30 EDT RECEIVED DATE/TIME: 08/07/2022 08:00 EDT START DATE/TIME: 08/07/2022 08:00 EDT FREE TEXT SOURCE: Jerry WILSON DO, DO, Corey R FINAL REPORTS Final Report [] Verified Date/Time: 08/09/2022 07:59 EDT 2,000 cfu/ml Mixed skin contaminants Performing Locations R1: This test was performed at: [facility], [address] [place] [address], [id number] , , [facility] Comment on above: Performed By: #### 1 [id number] #### [facility] [address] [place] [id number] CBC w/Indiceson 08-09-2022 Erythrocyte distribution width (RBC) [Ratio] 16.0 % High 10.9-14.2 [facility] Comment on above: Performed By: #### 1 [id number] #### [facility] [address] [place] [address] Hematocrit (Bld) [Volume fraction] 21.8 % Low 34.0-46.0 [facility] Comment on above: Performed By: #### 1 [id number] #### [facility] [address] [place] [address] Hemoglobin (Bld) [Mass/Vol] 7.1 g/dL Low 12.0-16.0 [facility] Comment on above: Performed By: #### 1 [id number] #### [facility] [address] [place] [address] MCH (RBC) [Entitic mass] 22.8 pg Low 27.0-34.0 [facility] Comment on above: Performed By: #### 1 [id number] #### [facility] [address] [place] [address] MCHC (RBC) [Mass/Vol] 32.6 g/dL Normal 31.4-36.0 [facility] Comment on above: Performed By: #### 1 [id number] #### [facility] [address] [place] [address] MCV (RBC) [Entitic vol] 69.9 fL Low 80.0-100.0 [facility] Comment on above: Performed By: #### 1 [id number] #### [facility] [address] [place] [address] Platelet mean volume (Bld) [Entitic vol] 9.1 fL Normal 6.4-10.8 [facility] Comment on above: Performed By: #### 1 [id number] #### [facility] [address] [place] [address] Platelets (Bld) [#/Vol] 154.0 E9/L Normal 150.0-500.0 [facility] Comment on above: Performed By: #### 1 [id number] #### [facility] [address] [place] [address] RBC (Bld) [#/Vol] 3.1 E12/L Low 4.3-5.9 [facility] Comment on above: Performed By: #### 1 [id number] #### [facility] [address] [place] [address] WBC corrected for nucl RBC Auto (Bld) [#/Vol] 8.1 E9/L Normal 4.0-11.0 [facility] Comment on above: Performed By: #### 1 [id number] #### [facility] [address] [place] [address] Group B Strep by PCRon 08-09 Group B Strep colonization by PCR Negative Normal Negative [facility] Comment on above: Performed By: #### 1 [id number] #### [facility] [address] [place] [address] HEMATOLOGYOrdered By: Ana Rivera on 08-09-2022 Erythrocyte distribution width (RBC) [Ratio] 16.0 % High 10.9 - 14.2 % [facility] Hematocrit (Bld) [Volume fraction] 21.8 % Low 34.0 - 46.0 % [facility] Hemoglobin (Bld) [Mass/Vol] 7.1 g/dL Low 12.0 - 16.0 gm/dL [facility] Hypochromia Auto Ql (Bld) Present (08/09/22 5:58 AM) Normal [facility] MCH (RBC) [Entitic mass] 22.8 pg Low 27. 0 - 34.0 pg [facility] MCHC (RBC) [Mass/Vol] 32.6 g/dL Normal 31.4 - 36.0 gm/dL [facility] MCV (RBC) [Entitic vol] 69.9 fL Low 80.0 - 100.0 fL [facility] Microcytes Ql (Bld) Present (08/09/22 5:58 AM) Normal [facility] Morphology Cliff (Bld) [Interp] See Morphology (08/09/22 5:58 AM) Normal [facility] Platelet mean volume (Bld) [Entitic vol] 9.1 fL Normal 6.4 - 10.8 fL [facility] Platelets (Bld) [#/Vol] 154.0 E9/L Normal 150. 0 - 500.0 E9/L [facility] RBC (Bld) [#/Vol] 3.1 E12/L Low 4.3 - 5.9 E12/L [facility] WBC corrected for nucl RBC Auto (Bld) [#/Vol] 8.1 E9/L Normal 4.0 - 11.0 E9/L [facility] Insurance Correspondence Off iceon 08-09-2022 Insurance Correspondence Office [id number]#[email or web address]:127 Normal [facility] Insurance Correspondence Office [id number] 43#[id number]:127 Normal [facility] Morphon 08-09-2022 Hypochromia Auto Ql (Bld) Present Normal [facility] Comment on above: Order Comment: Order Added by Discern Expert. Performed By: #### 1 [id number] #### [facility] [address] [place] [address] Microcytes Ql (Bld) Present Normal [facility] Comment on above: Order Comment: Order Added by Discern Expert. Performed By: #### 1 [id number] #### [facility] [address] [place] [address] Morphology Cliff (Bld) [Interp] See Morphology Normal [facility] Comment on above: Order Comment: Order Added by Discern Expert. Performed By: #### 1 [id number] #### [facility] [address] [place] [address] Progress Note-Physicianon Progress Note-Physician Patient: JORDIN TYLER Age: 17 years Sex: Female : 2005 Associated Diagnoses: None Author: Rohit CASE, Eduardo Mendez Basic Information PPD #1 from [facility]. She is well. Anemic, but stable Review of Systems Constitutional: Negative. Respiratory: Shortness of breath. Health Status Current medications: Medications (16) Active Scheduled: (2) docusate sodium 100 mg Cap [F] 100 mg 1 cap(s), Oral, BID multivitamin, Multivitamins with FA 1 mg [F] 1 tab(s), Oral, qAM Continuous: (0) PRN: (14) acetaminophen 325 mg Tab UD [F] 975 mg 3 tab(s), Oral, q8hr acetaminophen-codei ne 300 mg-30 mg Tab [F] 1 tab(s), Oral, q6hr acetaminophen-codei ne 300 mg-30 mg Tab [F] 2 tab(s), Oral, q6hr benzocaine-menthol topical 20%-0.5% Tionesta [F] 1 spray(s), Topical, q4hr calcium carbonate 500 mg Chew Tab [F] 500 mg 1 tab(s), Oral, q6hr hydrocortisone 2.5% Rectal Crm w/Appl [F] 1 maryjo, Rectal, QID hydrocortisone 25 mg Supp [F] 25 mg 1 supp, Rectal, BID ibuprofen 600 mg Tab [F] 600 mg 1 tab(s), Oral, q6hr lanolin topical [F] 1 maryjo, Topical, q2hr measles/mumps/rubel la virus vaccine - Powd [F] 0.5 mL, SubCutaneous, Once simethicone 80 mg Chew Tab [F] 80 mg 1 tab(s), Oral, QID tetanus/diphth/pert uss 5 units-2.5 units-18.5 mcg/0.5 mL SUSP [F] 0.5 mL, IntraMuscular, Once witch cayden topical 50% Pad [F] 1 maryjo, Topical, q4hr zolpidem 5 mg Tab [F] 5 mg 1 tab(s), Oral, Bedtime Physical Examination Vital Signs (last 24 hrs) Last Charted Temp Oral 36.7 DegC (AUG 09 07:27) SBP 122 mmHg (AUG 09:27) DBP 68 mmHg (AUG 09:) SpO2 100 % (AUG 09:28) General: Alert and oriented. HENT: Normocephalic. Respiratory: Respirations are non-labored. Exam: Lochia: Scant amount. Uterus: Firm. Neurologic: Alert, Oriented. Psychiatric: Cooperative. Review / Management Results review: Lab results 08/09/2022 5:58 EDT WBC 8.1 E9/L RBC 3.1 E12/L LOW HGB 7.1 gm/dL LOW Hct 21.8 % LOW MCV 69.9 fL LOW MCH 22.8 pg LOW MCHC 32.6 gm/dL RDW 16.0 % HI Platelet 154.0 E9/L MPV 9.1 fL RBC Morph See Morphology Microcyte Present Hypochromasia Present . Impression and Plan Condition: Stable. Plan Routine care. Normal [facility] Comment on above: Result Comment: Elec tronically Signed By: Rohit CASE, Eduardo Mendez\.br\Date and Time Signed: 08/09/22 11:29 EDT Vaccinationson 08-09-2022 Vaccinations [id number] 6#1.00CD:127 Normal [facility] Nursing Delivery Noteon 070 Nursing Delivery Note Catch:041 SPONTANEOUS Vaginal delivery of FEMALE infant per Doctor STEVE. Head delivered. Mouth and nose bulb suctioned for clear fluid. Body delivered. NC X 2. Spontaneous respirations at . placed on mother?s abdomen. INFANT DRIED AND WET LINENS REMOVED. Lusty cry with tactile stimulation. Color pinking. Moving all extremities. CORD CLAMPED AND CUT BY FATHER. 0412- SKIN TO SKIN WITH MOTHER. DIAPER AND HAT ON. HUGS TAG ON PATIENT. NO SIGNS OF DISTRESS. 0415- MOTHER REQUEST INFANT TO WARMER. WEIGHED AND MEASURED. SWADDLED AND HELD BY FATHER, NO SIGNS OF DISTRESS Normal [facility] Nursing Delivery Note Infant Catch:[id number] SPONTANEOUS Vaginal delivery of FEMALE infant per Doctor STEVE. Head delivered. Mouth and nose bulb suctioned for clear fluid. Body delivered. Spontaneous respirations at . placed on mother?s abdomen. Lusty cry with tactile stimulation. Color pinking. Moving all extremities. CORD CLAMPED AND CUT BY DR. WILSON. DRIED, WET LINENS REMOVED. 0111- SKIN TO SKIN, NO SIGNS OF DISTRESS. HAT AND DIAPER ON. HUGS TAG AND ID BANDS ON WHILE SKIN TO SKIN. LUSTY CRY 0120-To preheated warmer PER MOTHER REQUEST. Infant dried with towel. Wet linens removed. Respirations unlabored. Heart rate regular. Color pink. Infant weighed and measured. 0123- INFANT PLACED BACK SKIN TO SKIN WITH MOTHER- NO SIGNS OF DISTRESS. BONDING APPROPRIATELY Normal [facility] Comment on above: Other Comment: WRONG PATIENT Progress Note-Physicianon Progress Note-Physician Patient: JORDIN TYLER Age: 17 years Sex: Female : 2005 Associated Diagnoses: None Author: Jerry WILSON DO Basic Information Gestational Age: Gestational Age (EGA) and ALISHA * Note: EGA calculated as of 08/08/2022 ALISHA: 08/25/2022 EGA*: 37 weeks 4 days Type: Authoritative Method Date: 11/05/2021 Method: Last Menstrual Period (11/05/2021) Confirmation: Confirmed Description: -- Comments: -- Entered by: Kierra Collier RN on 08/07/2022 Other ALISHA Calculations for this : No additional ALISHA calculations have been recorded for this . Procedure Labor/ Delivery Summary Results Review: Problems (Active Problems Only) (SNOMED CT: 238099968, Onset: 11/05/21) Attention deficit hyperactivity disorder, combined type (SNOMED CT: 43214535, Onset: --) Dyspnea (SNOMED CT: 599572981, Onset: --) Finding related to (SNOMED CT: 514735168, Onset: --) Age mother conceived under 17 (Other: , Onset: --) Infection (SNOMED CT: 62632200, Onset: --) Delivery Summary Baby A Membrane Status Information ROM Date/Time: 08/07/22 23:03:00 ROM Type: Artificial rupture with amnihook Amniotic Fluid Color/Description: Clear Labor Information Labor Onset Date/Time: 08/06/22 21:00:00 Labor Onset Methods: Augmented Augmentation Methods: Artificial rupture of membranes, Oxytocin infusion Monitoring FHR Monitoring Method: Doppler ultrasound , Lab results 08/07/2022 17:42 EDT UA Spec Desc Catheter UA Color Yellow UA Clarity Clear UA Spec Grav 1.015 UA pH 8.0 UA Protein Negative UA Glucose Negative UA Ketones Negative UA Bili Negative UA Blood 3+ UA Nitrite Negative UA Urobilinogen 0.2 EU/dL UA Leuk Est Negative UA RBC 4-20 /HPF UA Squam Epithelial 0-2 /HPF UA WBC 0-5 /HPF 08/07/2022 12:49 EDT WBC 8.6 E9/L RBC 3.7 E12/L LOW HGB 8.0 gm/dL LOW Hct 25.6 % LOW MCV 69.9 fL LOW MCH 21.9 pg LOW MCHC 31.3 gm/dL LOW RDW 16.0 % HI Platelet 232.0 E9/L MPV 8.6 fL RBC Morph See Morphology Anisocytosis Present Microcyte Present Hypochromasia Present Polychromasia Present Ovalocytes Present Large Plt Present ABO/Rh Interp A POS ABSC Gel Interp Negative 08/07/2022 12:00 EDT Blood Type and Rh A positive Antibody Screen Negative Rubella Immune Hepatitis B Surface Antigen Negative Hepatitis B Test Date 01/04/2022 GBS Status Results pending RPR Negative VDRL Negative HIV Status Negative Sexually Transmitted Diseases Chlamydia 08/07/2022 6:36 EDT Antibody Screen Negative Rubella Immune Hepatitis B Surface Antigen Negative Hepatitis B Test Date 01/04/2022 GBS Status Not done RPR Negative VDRL Negative HIV Status Negative Sexually Transmitted Diseases Chlamydia 08/07/2022 6:30 EDT UA Spec Desc Clean Catch UA Color Yellow UA Clarity Clear UA Spec Grav 1.020 UA pH 7.0 UA Protein Trace UA Glucose Negative UA Ketones Negative UA Bili Negative UA Blood Negative UA Nitrite Negative UA Urobilinogen 2.0 EU/dL UA Leuk Est 1+ UA RBC 0-3 /HPF UA Squam Epithelial 9-10 /HPF UA WBC 6-15 /HPF UA Bacteria 1+ /HPF UA Amorph Lis Present UA Mucous 1+ . Vaginal delivery procedure Preparation & technique - OB PN View 08/08/2022 3:52 EDT azithromycin 500 mg mg Sodium Chloride 0.9% 250 mL mL 08/08/2022 3:38 EDT Monitoring Annotation Pt sits up in bed 08/08/2022 3:38 EDT Monitoring Annotation Primary Provider notified 08/08/2022 3:15 EDT Uterine Contraction Monitoring Method External toco Uterine Contractions Perceived by Pt No Uterine Contraction Frequency 2-3 Uterine Contraction Duration 50-70 Uterine Contraction Intensity, Ext Palp Moderate Uterine Activity Normal Patient Position, OB Right tilt Baby A FHR Monitoring Method: Doppler ultrasound FHR Monitoring Frequency: Continuous FHR Baseline: 130 FHR Reactive: Yes FHR Baseline Description: Normal, 110-160 bpm FHR Baseline Variability: Moderate variability FHR Accelerations: Present FHR Acceleration Description: Abrupt FHR Deceleration: Variable FHR Pattern: Baseline Variable Deceleration Characteristics: Accelerations preceeding and/or following, Fluctuations in the FHR in the trough of the deceleration Late Deceleration Interventions: Provide explanation to reduce anxiety Sinusoidal: Absent FHR Interpretation Category: II FHR Category II Interventions: Provide explanation to reduce anxiety Activity: Present per patient 08/08/2022 3:03 EDT Heart Rate Monitored 67 bpm Respiratory Rate 16 br/min Systolic Blood Pressure 116 mmHg Diastolic Blood Pressure 44 mmHg LOW Blood Pressure Location Right arm Mean Arterial Pressure, Cuff 68 mmHg Hourly Rounding Yes SpO2 98 % Oxygen Therapy Room air 08/08/2022 3:01 E (more content not included)... Normal [facility] Comment on above: Result Comment: Elec tronically Signed By: Jerry WILSON DO\.br\Date and Time Signed: 08/08/22 04:21 EDT Progress Note-Physician Patient: JORDIN TYLER Age: 17 years Sex: Female : 2005 Associated Diagnoses: None Author: Jerry WILSON DO Basic Information Gestational Age: Gestational Age (EGA) and ALISHA * Note: EGA calculated as of 08/08/2022 ALISHA: 08/25/2022 EGA*: 37 weeks 4 days Type: Authoritative Method Date: 11/05/2021 Method: Last Menstrual Period (11/05/2021) Confirmation: Confirmed Description: -- Comments: -- Entered by: Kierra Collier RN on 08/07/2022 Other ALISHA Calculations for this : No additional ALISHA calculations have been recorded for this . Chief Complaint 08/07/2022 12:00 EDT contractions since 08/06/22 @ 2100 08/07/2022 6:36 EDT contractions 17 yo at 37 4/7wks presents in active labor, gbbs unknown, neg lof, ctxns 2-3min History of Present Illness Patient is Para Information: : 2 Para Term: 1 Para : 0 Para Abortions: 0 Para Livin. Exam and Notes Exams and Notes Date: 08/07/22 EGA: 37w4d Weight (lbs Invalid Interpretation Code kg): *185...\.br\ Fundal Height (cm): -- \.br\Blood Pressure (mmHg): 124/58 \.br\Cervix Exam (Dil cm/Eff %/Sta -):1/60%/-2 \.br\ Labor S/S: \.br\Urine Glucose: \.br\Urine Protein: \.br\Next Visit: \.br\Baby A \.br\ FHR: 140\.br\ Movement: Present per patient\.br\ Presentation : --\.br\.br\ \.br\.br\Da te: 01/18/22\.br \EGA: 8w5d \.br\Weight (lbs [facility] Comment on above: Result Comment: Elec tronically Signed By: Jerry WILSON DO\.br\Date and Time Signed: 08/08/22 00:08 EDT ABO/Rhon 08-07-2022 ABO/Rh Positive Invalid Interpretation Code [facility] Comment on above: Performed By: #### 1 [id number] #### [facility] [address] [place] [address] ABO/Rh History Checkon 08-07 ABO/Rh History Check Verified Hx Blood Type Normal [facility] Comment on above: Performed By: #### 1 [id number] #### [facility] [address] [place] [address] ABSCon 08-07-2022 ABSC Gel Interp Negative Normal [facility] Comment on above: Performed By: #### 1 [id number], [id number] #### [facility] [address] [place] [address] BLOOD BANKOrdered By: Brandie Garcia on 08-07-2022 ABO/Rh Interp Positive Invalid Interpretation Code [facility] BB Subsection ABSC Gel Interp Negative (08/07/22 12:49 PM) Normal [facility] BB Subsection Blood Bank ID#on 08-07-2022 BBID# [id number] Invalid Interpretation Code [facility] Comment on above: Performed By: #### 1 [id number], [id number] #### [facility] [address] [place] [address] CBC w/Indiceson 08-07-2022 Erythrocyte distribution width (RBC) [Ratio] 16.0 % High 10.9-14.2 [facility] Comment on above: Performed By: #### 2 [id number], [id number] #### [facility] [address] [place] [address] Hematocrit (Bld) [Volume fraction] 25.6 % Low 34.0-46.0 [facility] Comment on above: Performed By: #### 2 [id number], [id number] #### [facility] [address] [place] [address] Hemoglobin (Bld) [Mass/Vol] 8.0 g/dL Low 12.0-16.0 [facility] Comment on above: Performed By: #### 2 [id number], [id number] #### [facility] [address] [place] [address] MCH (RBC) [Entitic mass] 21.9 pg Low 27.0-34.0 [facility] Comment on above: Performed By: #### 2 [id number], [id number] #### [facility] [address] [place] [address] MCHC (RBC) [Mass/Vol] 31.3 g/dL Low 31.4-36.0 [facility] Comment on above: Performed By: #### 2 [id number], [id number] #### [facility] [address] [place] [address] MCV (RBC) [Entitic vol] 69.9 fL Low 80.0-100.0 [facility] Comment on above: Performed By: #### 2 [id number], [id number] #### [facility] [address] [place] [address] Platelet mean volume (Bld) [Entitic vol] 8.6 fL Normal 6.4-10.8 [facility] Comment on above: Performed By: #### 2 354369, [id number] #### [facility] [address] [place] [address] Platelets (Bld) [#/Vol] 232.0 E9/L Normal 150.0-500.0 [facility] Comment on above: Performed By: #### 2 [id number], [id number] #### [facility] [address] [place] [address] RBC (Bld) [#/Vol] 3.7 E12/L Low 4.3-5.9 [facility] Comment on above: Performed By: #### 2 389396, [id number] #### [facility] [address] [place] [address] WBC corrected for nucl RBC Auto (Bld) [#/Vol] 8.6 E9/L Normal 4.0-11.0 [facility] Comment on above: Performed By: #### 2 [id number], [id number] #### [facility] [address] [place] [address] Consent for Procedure/Surger yon 08-07-2022 Consent for Procedure/Surgery [id number]#1.00CD:127 Normal [facility] Consent for Treatmenton Consent for Treatment [id number]#1.00CD:127 Normal [facility] Consent for Treatment [id number]#1.00CD:127 Normal [facility] Discharge Instructionson Discharge Instructions [id number]#1.00CD:127 Normal [facility] HEMATOLOGYOrdered By: Briseida Rose on 08-07-2022 Anisocytosis Ql (Bld) Present (08/07/22 12:49 PM) Normal [facility] Erythrocyte distribution width (RBC) [Ratio] 16.0 % High 10.9 - 14.2 % [facility] Hematocrit (Bld) [Volume fraction] 25.6 % Low 34.0 - 46.0 % [facility] Hemoglobin (Bld) [Mass/Vol] 8.0 g/dL Low 12.0 - 16.0 gm/dL [facility] Hypochromia Auto Ql (Bld) Present (08/07/22 12:49 PM) Normal [facility] MCH (RBC) [Entitic mass] 21.9 pg Low 27. 0 - 34.0 pg [facility] MCHC (RBC) [Mass/Vol] 31.3 g/dL Low 31.4 - 36.0 gm/dL [facility] MCV (RBC) [Entitic vol] 69.9 fL Low 80.0 - 100.0 fL [facility] Microcytes Ql (Bld) Present (08/07/22 12:49 PM) Normal [facility] Morphology Cliff (Bld) [Interp] See Morphology (08/07/22 12:49 PM) Normal [facility] Ovalocytes LM Ql (Bld) Present (08/07/22 12:49 PM) Normal [facility] Platelet mean volume (Bld) [Entitic vol] 8.6 fL Normal 6.4 - 10.8 fL [facility] Platelets (Bld) [#/Vol] 232.0 E9/L Normal 150. 0 - 500.0 E9/L [facility] Platelets Large LM Ql (Bld) Present (08/07/22 12:49 PM) Normal [facility] Polychromasia LM Ql (Bld) Present (08/07/22 12:49 PM) Normal [facility] RBC (Bld) [#/Vol] 3.7 E12/L Low 4.3 - 5.9 E12/L [facility] WBC corrected for nucl RBC Auto (Bld) [#/Vol] 8.6 E9/L Normal 4.0 - 11.0 E9/L [facility] Help Me Grow Referralon Help Me Grow Referral [id number]#1.00CD:127 Normal [facility] Insurance Correspondence Off iceon 08-07-2022 Insurance Correspondence Office [id number]#1.00CD:127 Normal [facility] - Microbiology an d Antimicrobial susceptibilityOrdered By: Maranda Muñoz on 08-07-2022 Bacteria identified Cx Nom (U) 2,000 cfu/ml Mixed skin contaminants [facility] Morphon 08-07-2022 Anisocytosis Ql (Bld) Present Normal [facility] Comment on above: Order Comment: Order Added by Discern Expert. Performed By: #### 2 [id number], [id number] #### [facility] [address] [place] [address] Hypochromia Auto Ql (Bld) Present Normal [facility] Comment on above: Order Comment: Order Added by Discern Expert. Performed By: #### 2 [id number], [id number] #### [facility] [address] [place] [address] Microcytes Ql (Bld) Present Normal [facility] Comment on above: Order Comment: Order Added by Discern Expert. Performed By: #### 2 [id number], [id number] #### [facility] [address] [place] [address] Morphology Cliff (Bld) [Interp] See Morphology Normal [facility] Comment on above: Order Comment: Order Added by Discern Expert. Performed By: #### 2 118539, [id number] #### [facility] [address] [place] [address] Ovalocytes LM Ql (Bld) Present Normal [facility] Comment on above: Order Comment: Order Added by Discern Expert. Performed By: #### 2 [id number], [id number] #### [facility] [address] [place] [address] Platelets Large LM Ql (Bld) Present Normal [facility] Comment on above: Order Comment: Order Added by Discern Expert. Performed By: #### 2 499898, [id number] #### [facility] [address] [place] [address] Polychromasia LM Ql (Bld) Present Normal [facility] Comment on above: Order Comment: Order Added by Discern Expert. Performed By: #### 2 402406, [id number] #### [facility] [address] [place] [address] Recordson Records [id number]#1.00CD:127 Normal [facility] Progress Note-Physicianon Progress Note-Physician Patient: JORDIN TYLER Age: 17 years Sex: Female : 2005 Associated Diagnoses: None Author: Ra Casas Jr., DO Postoperative Information Postoperative disposition: Postoperative disposition: Day 2. Optimetrix number: Optimetrix number [id number]. Anesthetic utilized: Regional: Epidural. Physical Examination Hemodynamically stable. Pain Assessment: Controlled. General: Awake, Alert, Appropriate. Respiratory: Adequate air exchange. Cardiovascular: Stable. Neurological: Normal sensory function. Assessment Anesthetic outcome No post-epidural complications noted.. Review / Management Condition: Stable. Plan Transfer/Discharge: Stable for discharge from anesthetic standpoint.. Normal [facility] Comment on above: Result Comment: Elec tronically Signed By: Ra Casas Jr., DO\.br\Date and Time Signed: 08/07/22 17:23 EDT Progress Note-Physician Patient: JORDIN TYLER Age: 17 years Sex: Female : 2005 Associated Diagnoses: None Author: Ra Casas Jr., DO Postoperative Information Postoperative disposition: Postoperative disposition: Day 2. Optimetrix number Anesthetic utilized: Regional: Epidural. Physical Examination Hemodynamically stable. Pain Assessment: Controlled. General: Awake, Alert, Appropriate. Respiratory: Adequate air exchange. Cardiovascular: Stable. Neurological: Normal sensory function. Assessment Anesthetic outcome No post-epidural complications noted.. Review / Management Condition: Stable. Plan Transfer/Discharge: Stable for discharge from anesthetic standpoint.. Normal [facility] Comment on above: Result Comment: Elec tronically Signed By: Ra Casas Jr., DO\.br\Date and Time Signed: 08/07/22 17:22 EDT Progress Note-Physician Patient: JORDIN TYLER Age: 17 years Sex: Female : 2005 Associated Diagnoses: None Author: Ra Casas Jr., DO Chief Complaint Intrauterine Health Status Allergies: Allergic Reactions (All) No Known Allergies No Known Medication Allergies Current medications.Problem list: All Problems ADHD (attention deficit hyperactivity disorder), combined type / SNOMED CT 28792522 / Confirmed Age mother conceived under 17 / Patient Care / Confirmed / SNOMED CT 051807994 / Confirmed Shortness of breath in pediatric patient / SNOMED CT 833967291 / Confirmed Very young maternal age, antepartum / SNOMED CT 174773023 / Confirmed Resolved: Acute gastroenteritis / SNOMED CT 193290583 resolved per patient Resolved: Acute low back pain due to trauma / SNOMED CT 103290542 resolved per patient Resolved: Blurry vision, left eye / SNOMED CT 035804114 resolved per patient Resolved: Chest pain / SNOMED CT 29520713 resolved per patient Resolved: Inspiratory stridor / SNOMED CT 715211558 Resolved: Post-traumatic stress syndrome / SNOMED CT 46252041 resolved per patient. Resolved: / SNOMED CT 102681086 Resolved: Strep pharyngitis / SNOMED CT 84476723 Resolved: Viral gastroenteritis / SNOMED CT 793960823 Resolved: Vomiting / SNOMED CT 0313590454 Canceled: None / SNOMED CT 435335331 Review of Systems Respiratory: Negative. Cardiovascular: Negative. Hematology/Lymphati cs: No bruising tendency, No bleeding tendency. Neurologic: Negative. Physical Examination Please refer to Labor floor nursing records for ongoing vital signs, and for intake and output totals while epidural was running. Review / Management Differential diagnosis: Active labor. OB Results Review Labor 08/07/2022 12:49 EDT WBC 8.6 E9/L RBC 3.7 E12/L LOW HGB 8.0 gm/dL LOW Hct 25.6 % LOW MCV 69.9 fL LOW MCH 21.9 pg LOW MCHC 31.3 gm/dL LOW RDW 16.0 % HI Platelet 232.0 E9/L MPV 8.6 fL RBC Morph See Morphology Anisocytosis Present Microcyte Present Hypochromasia Present Polychromasia Present Ovalocytes Present Large Plt Present Impression and Plan Plan Labor epidural at request of patient.. Procedure Epidural injection procedure Date/ Time: 08/07/2022 16:46:00. Confirmed: patient, procedure, site, safety procedures followed. Performed by: Ra Casas DO. Informed consent: signed by patient. Indication: Active labor.. Preparation and technique: informed consent obtained (from patient before the procedure), positioned (sitting), sterile preparation of site (patient's back was sterilly prepped and draped) (in usual fashion, with 10 % povidone iodine, draped to expose affected area), local anesthesia (1% lidocaine was applied to the patient's back before the epidural was attempted) (lidocaine without epinephrine, _1_ cc injected subcutaneously), approach (midline), needle (17 ga touhy) (placed via loss of resistance technique, At _L4-L5_ interspace.), aspiration (attempted for blood and CSF), injectant (test dose consisting of 3 ml of 1.5% lodocaine with 1:200,000 epi) (test dose given, Epidural catheter inserted and secured at a depth of _11_ cm at skin.). Procedure tolerated: well. Complications: Negative heme, negative CSF, and negative response to test dose.. [facility] Epidural Medications Administered: Bolus dose consisted of _7_ ml of 0.2% Ropivacaine and 100 mcg of fentanyl (2 ml) at 1702. Then a premixed epidural bag of 0.2% Ropivacaine, and 2 mcg/ml of fentanyl was administered via PCEA with basal rate at 10 ml/hour and demand boluses of _5_ ml with a lockout interval of _30_ minutes. The PCEA was started at 1706. Normal [facility] Comment on above: Result Comment: Elec tronically Signed By: Ra Casas Jr., DO\.br\Date and Time Signed: 08/07/22 17:21 EDT Reference Laboratory Testing Ordered By: Generated DomainUser on 08-07-2022 C. trachomatis rRNA TIM+probe Ql (Unsp spec) Negative Invalid Interpretation Code Negative [facility] N. gonorrhoeae rRNA TIM+probe Ql (Unsp spec) Negative Invalid Interpretation Code Negative [facility] Comment on above: Result Comment: Perf ormed at: =G [facility] [address] Anshul Traore [id number] MD Rodriguez Briones UA With Cult Reflexon 2022 Type of Urine collection method Catheter Normal [facility] Comment on above: Order Comment: Urina ry Catheter Insertion triggered Urinalysis With Culture Reflex order by discern. Performed By: #### 1 [id number] #### [facility] [address] [place] [address] Bilirubin Ql (U) Negative Normal Negative [facility] Comment on above: Order Comment: Urina ry Catheter Insertion triggered Urinalysis With Culture Reflex order by discern. Performed By: #### 1 [id number] #### [facility] [address] [place] [address] Clarity (U) CLEAR Normal Clear [facility] Comment on above: Order Comment: Urina ry Catheter Insertion triggered Urinalysis With Culture Reflex order by discern. Performed By: #### 1 [id number] #### [facility] [address] [place] [address] Color (U) YELLOW Normal Yellow [facility] Comment on above: Order Comment: Urina ry Catheter Insertion triggered Urinalysis With Culture Reflex order by discern. Performed By: #### 1 [id number] #### [facility] [address] [place] [address] Epithelial cells.squamous LM.HPF (Urine sed) [#/Area] 0-2 Normal 0-2 [facility] Comment on above: Order Comment: Urina ry Catheter Insertion triggered Urinalysis With Culture Reflex order by discern. Performed By: #### 1 [id number] #### [facility] [address] [place] [address] Glucose Test strip (U) [Mass/Vol] Negative Normal Negative [facility] Comment on above: Order Comment: Urina ry Catheter Insertion triggered Urinalysis With Culture Reflex order by discern. Performed By: #### 1 [id number] #### [facility] [address] [place] [address] Hemoglobin Ql (U) 3+ Abnormal Negative [facility] Comment on above: Order Comment: Urina ry Catheter Insertion triggered Urinalysis With Culture Reflex order by discern. Performed By: #### 1 [id number] #### [facility] [address] [place] [address] Ketones (U) [Mass/Vol] Negative Normal Negative [facility] Comment on above: Order Comment: Urina ry Catheter Insertion triggered Urinalysis With Culture Reflex order by discern. Performed By: #### 1 [id number] #### [facility] [address] [place] [address] [id number] [place].plasma/[place].R BC (Bld) [Mass ratio] 4-20 Normal 0-3 [facility] Comment on above: Order Comment: Urina ry Catheter Insertion triggered Urinalysis With Culture Reflex order by discern. Performed By: #### 1 [id number] #### [facility] [address] [place] [address] Nitrite Ql (U) Negative Normal Negative [facility] Comment on above: Order Comment: Urina ry Catheter Insertion triggered Urinalysis With Culture Reflex order by discern. Performed By: #### 1 [id number] #### [facility] [address] [place] [address] pH (U) 8.0 [pH] Invalid Interpretation Code 5.0-9.0 [facility] Comment on above: Order Comment: Urina ry Catheter Insertion triggered Urinalysis With Culture Reflex order by discern. Performed By: #### 1 [id number] #### [facility] [address] [place] [address] Protein (U) [Mass/Vol] Negative Normal Negative [facility] Comment on above: Order Comment: Urina ry Catheter Insertion triggered Urinalysis With Culture Reflex order by discern. Performed By: #### 1 [id number] #### [facility] [address] [place] [address] Specific gravity (U) [Rel density] 1.015 Invalid Interpretation Code 1.005-1.030 [facility] Comment on above: Order Comment: Urina ry Catheter Insertion triggered Urinalysis With Culture Reflex order by discern. Performed By: #### 1 [id number] #### [facility] [address] [place] [address] Urobilinogen Qn (U) 0.2 {Karri'U}/dL Normal 0.0-1.0 [facility] Comment on above: Order Comment: Urina ry Catheter Insertion triggered Urinalysis With Culture Reflex order by discern. Performed By: #### 1 [id number] #### [facility] [address] [place] [address] WBC Auto Ql (U) Negative Normal Negative [facility] Comment on above: Order Comment: Urina ry Catheter Insertion triggered Urinalysis With Culture Reflex order by discern. Performed By: #### 1 [id number] #### [facility] [address] [place] [address] WBC LM.HPF (Urine sed) [#/Area] 0-5 Normal 0-5 [facility] Comment on above: Order Comment: Urina ry Catheter Insertion triggered Urinalysis With Culture Reflex order by discern. Performed By: #### 1 [id number] #### [facility] [address] [place] [address] Bacteria LM Ql (Urine sed) 1+ /HPF Abnormal Trace [facility] Comment on above: Performed By: #### 1 [id number] #### [facility] [address] [place] [address] Bilirubin Ql (U) Negative Normal Negative [facility] Comment on above: Performed By: #### 1 [id number], [id number] #### [facility] [address] [place] [address] Clarity (U) CLEAR Normal Clear [facility] Comment on above: Performed By: #### 1 [id number], [id number] #### [facility] [address] [place] [address] Color (U) YELLOW Normal Yellow [facility] Comment on above: Performed By: #### 1 [id number], [id number] #### [facility] [address] [place] [address] Crystals LM Ql (Urine sed) Present Normal [facility] Comment on above: Performed By: #### 1 [id number], [id number] #### [facility] [address] [place] [address] Epithelial cells.squamous LM.HPF (Urine sed) [#/Area] 9-10 Normal 0-2 [facility] Comment on above: Performed By: #### 1 [id number], [id number] #### [facility] [address] [place] [address] Glucose Test strip (U) [Mass/Vol] Negative Normal Negative [facility] Comment on above: Performed By: #### 1 [id number], [id number] #### [facility] [address] [place] [address] Hemoglobin Ql (U) Negative Normal Negative [facility] Comment on above: Performed By: #### 1 [id number], [id number] #### [facility] [address] [place] [address] Ketones (U) [Mass/Vol] Negative Normal Negative [facility] Comment on above: Performed By: #### 1 [id number], [id number] #### [facility] [address] [place] [address] [place].plasma/[place].R BC (Bld) [Mass ratio] 0-3 Normal 0-3 [facility] Comment on above: Performed By: #### 1 [id number], [id number] #### [facility] [address] [place] [address] Mucus Ql (Urine sed) 1+ Normal [facility] Comment on above: Performed By: #### 1 [id number], [id number] #### [facility] [address] [place] [address] Nitrite Ql (U) Negative Normal Negative [facility] Comment on above: Performed By: #### 1 [id number], [id number] #### [facility] [address] [place] [address] pH (U) 7.0 [pH] Invalid Interpretation Code 5.0-9.0 [facility] Comment on above: Performed By: #### 1 [id number], [id number] #### [facility] [address] [place] [address] Protein (U) [Mass/Vol] TRACE Abnormal Negative [facility] Comment on above: Performed By: #### 1 [id number], [id number] #### [facility] [address] [place] [address] Specific gravity (U) [Rel density] 1.020 Invalid Interpretation Code 1.005-1.030 [facility] Comment on above: Performed By: #### 1 [id number], [id number] #### [facility] [address] [place] [address] Type of Urine collection method Clean Catch Normal [facility] Comment on above: Performed By: #### 1 [id number], [id number] #### [facility] [address] [place] [address] Urobilinogen Qn (U) 2.0 {Karri'U}/dL Abnormal 0.0-1.0 [facility] Comment on above: Performed By: #### 1 [id number], [id number] #### [facility] [address] [place] [address] WBC Auto Ql (U) 1+ Abnormal Negative [facility] Comment on above: Performed By: #### 1 [id number], [id number] #### [facility] [address] [place] [address] WBC LM.HPF (Urine sed) [#/Area] 6-15 Abnormal 0-5 [facility] Comment on above: Performed By: #### 1 [id number], [id number] #### [facility] [address] [place] [address] URINALYSISOrdered By: Anne-Marie Leonard on 08-07-2022 Bilirubin Ql (U) Negative (08/07/22 5:42 PM) Normal Negative [facility] UA Auto SS Clarity (U) Clear (08/07/22 5:42 PM) Normal Clear [facility] UA Auto SS Color (U) Yellow (08/07/22 5:42 PM) Normal Yellow [facility] UA Auto SS Epithelial cells.squamous LM.HPF (Urine sed) [#/Area] 0-2 /HPF Normal 0-2/HPF [facility] UA Aut o SS Glucose Test strip (U) [Mass/Vol] Negative (08/07/22 5:42 PM) Normal Negative [facility] UA Auto SS Hemoglobin Ql (U) 3+ *ABN* (08/07/22 5:42 PM) Invalid Interpretation Code Negative [facility] UA Auto SS Ketones (U) [Mass/Vol] Negative (08/07/22 5:42 PM) Normal Negative [facility] UA Auto SS [place].plasma/[place].R BC (Bld) [Mass ratio] 4-20 /HPF Normal 0-3/HPF [facility] UA Au to SS Nitrite Ql (U) Negative (08/07/22 5:42 PM) Normal Negative [facility] UA Auto SS pH (U) 8.0 *NA* (08/07/22 5:42 PM) Invalid Interpretation Code 5.0 - 9.0 [facility] UA Auto SS Protein (U) [Mass/Vol] Negative (08/07/22 5:42 PM) Normal Negative [facility] UA Auto SS Specific gravity (U) [Rel density] 1.015 *NA* (08/07/22 5:42 PM) Invalid Interpretation Code 1.005 - 1.030 [facility] UA Auto SS UA Spec Desc Catheter (08/07/22 5:42 PM) Normal [facility] UA Auto SS Urobilinogen Qn (U) 0.1840741 {Karri'U}/dL Normal 0.0 - 1.0 EU/dL [facility] UA Auto SS WBC Auto Ql (U) Negative (08/07/22 5:42 PM) Normal Negative [facility] UA Auto SS WBC LM.HPF (Urine sed) [#/Area] 0-5 /HPF Normal 0-5/HPF [facility] UA Auto SS Bacteria LM Ql (Urine sed) 1+ /HPF Invalid Interpretation Code Trace/HPF [facility] UA Auto SS Bilirubin Ql (U) Negative (08/07/22 6:30 AM) Normal Negative [facility] UA Auto SS Clarity (U) Clear (08/07/22 6:30 AM) Normal Clear [facility] UA Auto SS Color (U) Yellow (08/07/22 6:30 AM) Normal Yellow [facility] UA Auto SS Crystals LM Ql (Urine sed) Present (08/07/22 6:30 AM) Normal [facility] UA Auto SS Epithelial cells.squamous LM.HPF (Urine sed) [#/Area] 9-10 /HPF Normal 0-2/HPF [facility] UA Aut o SS Glucose Test strip (U) [Mass/Vol] Negative (08/07/22 6:30 AM) Normal Negative [facility] UA Auto SS Hemoglobin Ql (U) Negative (08/07/22 6:30 AM) Normal Negative [facility] UA Auto SS Ketones (U) [Mass/Vol] Negative (08/07/22 6:30 AM) Normal Negative [facility] UA Auto SS [place].plasma/[place].R BC (Bld) [Mass ratio] 0-3 /HPF Normal 0-3/HPF [facility] UA Au to SS Mucus Ql (Urine sed) 1+ (08/07/22 6:30 AM) Normal [facility] UA Auto SS Nitrite Ql (U) Negative (08/07/22 6:30 AM) Normal Negative [facility] UA Auto SS pH (U) 7.0 *NA* (08/07/22 6:30 AM) Invalid Interpretation Code 5.0 - 9.0 [facility] UA Auto SS Protein (U) [Mass/Vol] Trace *ABN* (08/07/22 6:30 AM) Invalid Interpretation Code Negative [facility] UA Auto SS Specific gravity (U) [Rel density] 1.020 *NA* (08/07/22 6:30 AM) Invalid Interpretation Code 1.005 - 1.030 [facility] UA Auto SS UA Spec Desc Clean Catch (08/07/22 6:30 AM) Normal [facility] UA Auto SS Urobilinogen Qn (U) 2.9478003 {Karri'U}/dL Invalid Interpretation Code 0.0 - 1.0 EU/dL [facility] UA Auto SS WBC Auto Ql (U) 1+ *ABN* (08/07/22 6:30 AM) Invalid Interpretation Code Negative [facility] UA Auto SS WBC LM.HPF (Urine sed) [#/Area] 6-15 /HPF Invalid Interpretation Code 0-5/HPF [facility] UA Auto SS Consent for Treatmenton 07-08 Consent for Treatment [id number]#[id number]:127 Normal [facility] Consent for Treatment [id number] 44#1.00CD:127 Normal [facility] Discharge Instructionson Discharge Instructions [id number] 9#1.00CD:127 Normal [facility] Inpatient Clinical Summaryon 08-04-2022 Inpatient Clinical Summary [place] [id number] Clinical Summary Person Information Name: JORDIN TYLER Kristan/[facility] Age: 17 Years : 2005 Sex: Female PCP: NONE, XXXX Marital Status: Single Phone: [phone] Race: White Ethnicity: Non- or Language: Guatemalan Visit Id: Visit Reason: ABD PAIN AND PRESSURE Speciality: Acuity: Enc Type: OB Triage Med Service: Obstetrics Arrival: 08/04/2022 10:49:09 Discharge: 08/04/2022 13:15:00 Dispo Type: Home (Routine DC) Address: [address] [place] [id number] Provider Notes: Diagnosis: Problems Active Very young maternal age, antepartum Shortness of breath in pediatric patient ADHD (attention deficit hyperactivity disorder), combined type Smoking Status: Never Smoker Functional Status: Sensory Deficits: History of Falls: Mobility Assistance Prior to Admission: ADLs: Current Level of Assistance for Self-Care/Mobility: Cognitive Status: Allergies No Known Medication Allergies No Known Allergies Laboratory or Other Results This Visit (last charted value for your 08/04/2022 visit) Urinalysis 08/04/2022 11:11 AM UA Bacteria: Trace /HPF UA Bili: Negative UA Color: Yellow UA Glucose: Negative UA Ketones: Negative UA Leuk Est: Trace UA Nitrite: Negative UA Protein: Negative UA RBC: 0-3 /HPF UA Squam Epithelial: >10 /HPF UA Urobilinogen: 0.2 EU/dL -- Normal range between ( 0.0 and 1.0 ) UA WBC: 0-5 /HPF UA Spec Desc: Clean Catch UA Blood: Negative UA Clarity: Slightly Cloudy UA pH: 7.5 -- Normal range between ( 5.0 and 9.0 ) UA Spec Grav: 1.015 -- Normal range between ( 1.005 and 1.030 ) Measurements: Height: 165 cm Weight: 84.1 kg Blood Pressure: 124 mmHg / 58 mmHg BMI: 30.89 kg/m2 Procedures No Procedures Documented Immunizations No Immunizations Documented This Visit Final Med List: No Medications Documented Care Team Members: Attending Physician: Jerry WILSON DO Consulting Physician: Referring Physician: Follow up: With: Address: When: Eduardo Butler Within 1 week Comments: Appointment has already been scheduled Call for any problems. Call for severe abdominal pain Call physician if symptoms worsen Return for contractions closer, longer, harder Return for decreased movement Return if ruptured membranes or vaginal bleeding Patient Education Information: Normal [facility] Inpatient Patient Summaryon 08-04-2022 Inpatient Patient Summary [place] [id number] Patient Discharge Instructions PERSON INFORMATION Name: JORDIN TYLER Date of : 2005 Current Date: 08/04/2022 13:45:12 PHYSICIANS Admitting Physician: Jerry WILSON DO Primary Care Physician: NONE, XXXX PCP Phone Number: Comment: Discharge Diagnosis: Condition at Discharge: JORDIN TYLER has been given the following list of follow-up instructions, prescriptions, and patient education materials: PATIENT FOLLOW-UP INFORMATION Diet: Activity: Wound Care Instructions: Remove Your Dressing IN: Days Call Your Doctor For: IF UNABLE TO CONTACT YOUR PHYSICIAN AND YOU FEEL IT IS AN EMERGENCY, GO TO THE NEAREST EMERGENCY ROOM OR CALL 911 Home Treatment: Devices/Equipment: Special Services: Additional Instructions: Physician to provide the following pending test results: Follow up: With: Address: When: Eduardo Butler Within 1 week Comments: Appointment has already been scheduled Call for any problems. Call for severe abdominal pain Call physician if symptoms worsen Return for contractions closer, longer, harder Return for decreased movement Return if ruptured membranes or vaginal bleeding In the event that this physician does not participate in your insurance network, please consult with your insurance company to find a nearby participating provider. Comment: JAYSON Suárez SHIANNE A, have received the attached patient education materials/instructi ons and have verbalized understanding. Patient Signature Date Clinican/Nurse Signature Date MEDICATION LIST Pharmacy Information: Bernardino Galan PATIENT EDUCATION INFORMATION Instructions: Medication Leaflets: You may receive a survey from [facility] asking you to rate your care experience. Your feedback is important and will help us understand what we do well and how we can improve the quality of care we provide to you, your loved ones and our community. It?s an honor to serve you. Thank you for choosing [facility] Insurance Correspondenceon 0 08-04-2022 Insurance Correspondence [id number] 9#[id number]:127 Normal [facility] UA With Cult Reflexon 2022 Bacteria LM Ql (Urine sed) TRACE Normal Trace [facility] Comment on above: Performed By: #### 1 [id number] #### [facility] [address] [place] [address] Bilirubin Ql (U) Negative Normal Negative [facility] Comment on above: Performed By: #### 1 [id number] #### [facility] [address] [place] [address] Clarity (U) SL CLOUDY Abnormal Clear [facility] Comment on above: Performed By: #### 1 [id number] #### [facility] [address] [place] [address] Color (U) YELLOW Normal Yellow [facility] Comment on above: Performed By: #### 1 [id number] #### [facility] [address] [place] [address] Epithelial cells.squamous LM.HPF (Urine sed) [#/Area] /[HPF] Normal 0-2 [facility] Comment on above: Performed By: #### 1 [id number] #### [facility] [address] [place] [address] Glucose Test strip (U) [Mass/Vol] Negative Normal Negative [facility] Comment on above: Performed By: #### 1 [id number] #### [facility] [address] [place] [address] Hemoglobin Ql (U) Negative Normal Negative [facility] Comment on above: Performed By: #### 1 [id number] #### [facility] [address] [place] [address] Ketones (U) [Mass/Vol] Negative Normal Negative [facility] Comment on above: Performed By: #### 1 [id number] #### [facility] [address] [place] [address] [place].plasma/[place].R BC (Bld) [Mass ratio] 0-3 Normal 0-3 [facility] Comment on above: Performed By: #### 1 [id number] #### [facility] [address] [place] [address] Nitrite Ql (U) Negative Normal Negative [facility] Comment on above: Performed By: #### 1 [id number] #### [facility] [address] [place] [address] pH (U) 7.5 [pH] Invalid Interpretation Code 5.0-9.0 [facility] Comment on above: Performed By: #### 1 [id number] #### [facility] [address] [place] [address] Protein (U) [Mass/Vol] Negative Normal Negative [facility] Comment on above: Performed By: #### 1 [id number] #### [facility] [address] [place] [address] Specific gravity (U) [Rel density] 1.015 Invalid Interpretation Code 1.005-1.030 [facility] Comment on above: Performed By: #### 1 [id number] #### [facility] [address] [place] [address] Type of Urine collection method Clean Catch Normal [facility] Comment on above: Performed By: #### 1 [id number] #### [facility] [address] [place] [address] Urobilinogen Qn (U) 0.2 {Karri'U}/dL Normal 0.0-1.0 [facility] Comment on above: Performed By: #### 1 [id number] #### [facility] [address] [place] [address] WBC Auto Ql (U) TRACE Abnormal Negative [facility] Comment on above: Performed By: #### 1 [id number] #### [facility] [address] [place] [address] WBC LM.HPF (Urine sed) [#/Area] 0-5 Normal 0-5 [facility] Comment on above: Performed By: #### 1 [id number] #### [facility] [address] [place] [address] URINALYSISOrdered By: Hiedi Barnes on 08-04-2022 Bacteria LM Ql (Urine sed) Trace /HPF Normal Trace/HPF [facility] UA Auto SS Bilirubin Ql (U) Negative (08/04/22 11:11 AM) Normal Negative [facility] UA Auto SS Clarity (U) Slightly Cloudy *ABN* (08/04/22 11:11 AM) Invalid Interpretation Code Clear [facility] UA Auto SS Color (U) Yellow (08/04/22 11:11 AM) Normal Yellow [facility] UA Auto SS Epithelial cells.squamous LM.HPF (Urine sed) [#/Area] /[HPF] Normal 0-2/HPF [facility] UA Aut o SS Glucose Test strip (U) [Mass/Vol] Negative (08/04/22 11:11 AM) Normal Negative [facility] UA Auto SS Hemoglobin Ql (U) Negative (08/04/22 11:11 AM) Normal Negative [facility] UA Auto SS Ketones (U) [Mass/Vol] Negative (08/04/22 11:11 AM) Normal Negative [facility] UA Auto SS [place].plasma/[place].R BC (Bld) [Mass ratio] 0-3 /HPF Normal 0-3/HPF [facility] UA Au to SS Nitrite Ql (U) Negative (08/04/22 11:11 AM) Normal Negative [facility] UA Auto SS pH (U) 7.5 *NA* (08/04/22 11:11 AM) Invalid Interpretation Code 5.0 - 9.0 [facility] UA Auto SS Protein (U) [Mass/Vol] Negative (08/04/22 11:11 AM) Normal Negative [facility] UA Auto SS Specific gravity (U) [Rel density] 1.015 *NA* (08/04/22 11:11 AM) Invalid Interpretation Code 1.005 - 1.030 [facility] UA Auto SS UA Spec Desc Clean Catch (08/04/22 11:11 AM) Normal [facility] UA Auto SS Urobilinogen Qn (U) 0.1828095 {Karri'U}/dL Normal 0.0 - 1.0 EU/dL [facility] UA Auto SS WBC Auto Ql (U) Trace *ABN* (08/04/22 11:11 AM) Invalid Interpretation Code Negative [facility] UA Auto SS WBC LM.HPF (Urine sed) [#/Area] 0-5 /HPF Normal 0-5/HPF [facility] UA Auto SS CHEMISTRYOrdered By: SYSTEM SYSTEM on 01-18-2022 Anion gap [Moles/Vol] 15 mmol/L Normal 6 - 16 mEq/L F C Remisol Calcium [Mass/Vol] 9.0 mg/dL Normal 8.9 - 11. 1 mg/dL [facility] Remisol Chloride [Moles/Vol] 103 mmol/L Normal 101 - 1 11 mmol/L FT Remisol CO2 [Moles/Vol] 21 mmol/L Normal 21 - 31 mmol/L FT [facility] Creatinine [Mass/Vol] 0.6 mg/dL Normal 0.5 - 1.3 mg/dL [facility] GFR/1.73 sq M.predicted among blacks MDRD (S/P/Bld) [Vol rate/Area] mL/min/1.73 m2 Normal >=59mL/min/1 .73 m2 [facility] Chem S GFR/1.73 sq M.predicted among non-blacks MDRD (S/P/Bld) [Vol rate/Area] mL/min/1.73 m2 Normal >=59mL/min/1 .73 m2 [facility] Chem S Glucose [Mass/Vol] 94 mg/dL Normal 55 - 199 mg/dL [facility] Potassium [Moles/Vol] 3.7 mmol/L Normal 3.5 - 5.3 mmol/L [facility] Sodium [Moles/Vol] 135 mmol/L Normal 135 - 145 mmol/L [facility] Remisol Urea nitrogen [Mass/Vol] 7 mg/dL Normal 5 - 21 mg/d L [facility] Remisol Urea nitrogen/Creatinine [Mass ratio] 12 mg/mg Normal 10 - 20 [facility] Remisol CHEMISTRYOrdered By: Austin garcia on 01-18-2022 HCG.beta subunit Qn 215087 m[IU]/mL High 1 - 3 mIU/m L [facility] Chem S MICRO OTHER TESTSOrdered By: Austin Cabrera on 01-18-2022 Rapid COV Int NEG Ctl Pass (01/18/22 1:19 AM) Normal [facility] Man Sero Rapid COV Int POS Ctl Pass (01/18/22 1:19 AM) Normal [facility] Man Sero SARS-CoV+SARS-CoV-2 (COVID-19) Ag IA.rapid Ql (Resp) Not Detected (01/18/22 1:19 AM) Normal Not Detected [facility] Man Sero URINALYSISOrdered By: Austin Cabrera on 01-18-2022 Bacteria LM Ql (Urine sed) Trace /HPF Normal Trace/HPF [facility] UA Auto SS Bilirubin Ql (U) 1+ *ABN* (01/18/22 1:52 AM) Invalid Interpretation Code Negative [facility] UA Auto SS Clarity (U) Clear (01/18/22 1:52 AM) Normal Clear [facility] UA Auto SS Color (U) Yellow (01/18/22 1:52 AM) Normal Yellow [facility] UA Auto SS Epithelial cells.squamous LM.HPF (Urine sed) [#/Area] 3-4 /HPF Normal 0-2/HPF [facility] UA Aut o SS Glucose Test strip (U) [Mass/Vol] Negative (01/18/22 1:52 AM) Normal Negative [facility] UA Auto SS Hemoglobin Ql (U) Negative (01/18/22 1:52 AM) Normal Negative [facility] UA Auto SS Ketones (U) [Mass/Vol] 3+ *ABN* (01/18/22 1:52 AM) Invalid Interpretation Code Negative [facility] UA Auto SS [place].plasma/[place].R BC (Bld) [Mass ratio] 0-3 /HPF Normal 0-3/HPF [facility] UA Au to SS Mucus Ql (Urine sed) 2+ (01/18/22 1:52 AM) Normal [facility] UA Auto SS Nitrite Ql (U) Negative (01/18/22 1:52 AM) Normal Negative [facility] UA Auto SS pH (U) 5.5 *NA* (01/18/22 1:52 AM) Invalid Interpretation Code 5.0 - 9.0 [facility] UA Auto SS Protein (U) [Mass/Vol] Trace *ABN* (01/18/22 1:52 AM) Invalid Interpretation Code Negative [facility] UA Auto SS Specific gravity (U) [Rel density] >=1.030 *NA* (01/18/22 1:52 AM) Invalid Interpretation Code 1.005 - 1.030 [facility] UA Auto SS UA Spec Desc Clean Catch (01/18/22 1:52 AM) Normal [facility] UA Auto SS Urobilinogen Qn (U) 0.6573028 {Karri'U}/dL Normal 0.0 - 1.0 EU/dL [facility] UA Auto SS WBC Auto Ql (U) Negative (01/18/22 1:52 AM) Normal Negative [facility] UA Auto SS WBC LM.HPF (Urine sed) [#/Area] 0-5 /HPF Normal 0-5/HPF [facility] UA Auto SS CHEMISTRYOrdered By: SYSTEM SYSTEM on 01-05-2022 Albumin [Mass/Vol] 4.3 g/dL Normal 3.3 - 5.0 gm/dL [facility] Remisol Albumin/Globulin [Mass ratio] 1.3 {ratio} Normal 1.1 - 2.2 [facility] Remisol ALP [Catalytic activity/Vol] 98 [iU]/d Normal 21 - 98 Int._Unit/L [facility] Remisol ALT No additional P-5'-P [Catalytic activity/Vol] 32 [iU]/d Normal 6 - 46 Int._Unit/L [facility] Remisol Anion gap [Moles/Vol] 15 mmol/L Normal 6 - 16 mEq/L F [facility] Remisol AST [Catalytic activity/Vol] 36 [iU]/d Normal 5 - 43 Int._Unit/L [facility] Remisol Bilirubin [Mass/Vol] 0.4 mg/dL Normal 0.0 - 1 .1 mg/dL [facility] Remisol Bilirubin.direct [Mass/Vol] 0.1 mg/dL Normal 0.1 - 0.4 mg/dL [facility] Remisol Bilirubin.indirect [Mass or moles/Vol] 0.3 mg/dL Normal 0.1 - 0.9 mg/dL [facility] Remisol Calcium [Mass/Vol] 9.1 mg/dL Normal 8.9 - 11. 1 mg/dL [facility] Remisol Chloride [Moles/Vol] 100 mmol/L Low 101 - 1 11 mmol/L [facility] Remisol CO2 [Moles/Vol] 21 mmol/L Normal 21 - 31 mmol/L [facility] Remisol Creatinine [Mass/Vol] 0.6 mg/dL Normal 0.5 - 1.3 mg/dL [facility]isol Globulin (S) [Mass/Vol] 3.4 g/dL Normal 1.4 - 4.0 gm/dL [facility] Remisol Glucose [Mass/Vol] 90 mg/dL Normal 55 - 199 mg/dL [facility] Remisol Lipase [Catalytic activity/Vol] 24 U/L Normal 13 - 58 unit/L [facility] Remisol Potassium [Moles/Vol] 3.1 mmol/L Low 3.5 - 5.3 mmol/L [facility] Remisol Protein [Mass/Vol] 7.7 g/dL Normal 6.0 - 7.8 gm/dL [facility]isol Sodium [Moles/Vol] 133 mmol/L Low 135 - 145 mmol/L [facility] Remisol Urea nitrogen [Mass/Vol] 10 mg/dL Normal 5 - 21 mg/d L [facility] Remisol Urea nitrogen/Creatinine [Mass ratio] 17 mg/mg Normal 10 - 20 [facility] HEMATOLOGYOrdered By: SYSTEM SYSTEM on 01-05-2022 Basophils/100 WBC (Bld) 0.7 % Normal 0.0 - 2.0 % [facility] Basophils/Leukocytes Auto (Bld) [Pure # fraction] 0.1 E9/L Normal 0.0 - 0.2 E9/L [facility] Eosinophils/100 WBC (Bld) 0.7 % Normal 0.0 - 8.0 % [facility] Eosinophils/Leukocytes Auto (Bld) [Pure # fraction] 0.1 E9/L Normal 0.0 - 0.5 E9/L [facility] Lymphocytes/100 WBC (Bld) 16.8 % Normal 14.0 - 50.0 % [facility] Lymphocytes/Leukocytes Auto (Bld) [Pure # fraction] 1.2 E9/L Normal 1.0 - 4.0 E9/L [facility] Monocytes/100 WBC (Bld) 7.0 % Normal 4.0 - 14.0 % [facility] Monocytes/Leukocytes Auto (Bld) [Pure # fraction] 0.5 E9/L Normal 0.2 - 1.0 E9/L [facility] Neutrophils/100 WBC (Bld) 74.8 % Normal 36.0 - 75.0 % [facility] Neutrophils/Leukocytes Auto (Bld) [Pure # fraction] 5.4 E9/L Normal 2.0 - 7.5 E9/L [facility] HEMATOLOGYOrdered By: Ana Rivera on 01-05-2022 Erythrocyte distribution width (RBC) [Ratio] 16.1 % High 10.9 - 14.2 % [facility] Hematocrit (Bld) [Volume fraction] 32.8 % Low 34.0 - 46.0 % [facility] Hemoglobin (Bld) [Mass/Vol] 11.2 g/dL Low 12.0 - 16.0 gm/dL [facility] Hypochromia Auto Ql (Bld) Present (01/05/22 8:13 AM) Normal [facility] MCH (RBC) [Entitic mass] 24.8 pg Low 27. 0 - 34.0 pg [facility] MCHC (RBC) [Mass/Vol] 34.2 g/dL Normal 31.4 - 36.0 gm/dL [facility] MCV (RBC) [Entitic vol] 72.6 fL Low 80.0 - 100.0 fL [facility] Microcytes Ql (Bld) Present (01/05/22 8:13 AM) Normal [facility] Morphology Cliff (Bld) [Interp] See Morphology (01/05/22 8:13 AM) Normal [facility] Ovalocytes LM Ql (Bld) Present (01/05/22 8:13 AM) Normal [facility] Platelet mean volume (Bld) [Entitic vol] 7.9 fL Normal 6.4 - 10.8 fL [facility] Platelets (Bld) [#/Vol] 296.0 E9/L Normal 150. 0 - 500.0 E9/L [facility] RBC (Bld) [#/Vol] 4.5 E12/L Normal 4.3 - 5.9 E12/L [facility] WBC corrected for nucl RBC Auto (Bld) [#/Vol] 7.3 E9/L Normal 4.0 - 11.0 E9/L [facility] SEROLOGYOrdered By: Amrita Garcia on 01-05-2022 HCG.beta subunit (U) [Moles/Vol] Positive (01/05/22 7:59 AM) Normal [facility] URINALYSISOrdered By: Brandie Garcia on 01-05-2022 Bacteria LM Ql (Urine sed) Trace /HPF Normal Trace/HPF [facility] Bilirubin Ql (U) 2+ *ABN* (01/05/22 7:59 AM) Invalid Interpretation Code Negative [facility] Clarity (U) SL CLOUDY Invalid Interpretation Code [facility] Color (U) DARK YELLO Invalid Interpretation Code [facility] Crystals LM Ql (Urine sed) Present (01/05/22 7:59 AM) Normal [facility] Epithelial cells.squamous LM.HPF (Urine sed) [#/Area] 9-10 /HPF Normal 0-2/HPF [facility] Aut o SS Glucose Test strip (U) [Mass/Vol] Negative (01/05/22 7:59 AM) Normal Negative [facility] Hemoglobin Ql (U) Negative (01/05/22 7:59 AM) Normal Negative [facility] Ketones (U) [Mass/Vol] 3+ *ABN* (01/05/22 7:59 AM) Invalid Interpretation Code Negative [facility] SS [place].plasma/[place].R BC (Bld) [Mass ratio] 0-3 /HPF Normal 0-3/HPF [facility] Au to SS Mucus Ql (Urine sed) 3+ (01/05/22 7:59 AM) Normal [facility] Nitrite Ql (U) Negative (01/05/22 7:59 AM) Normal Negative [facility] pH (U) 6.5 *NA* (01/05/22 7:59 AM) Invalid Interpretation Code 5.0 - 9.0 [facility] Protein (U) [Mass/Vol] 1+ *ABN* (01/05/22 7:59 AM) Invalid Interpretation Code Negative [facility] Specific gravity (U) [Rel density] 1.025 *NA* (01/05/22 7:59 AM) Invalid Interpretation Code 1.005 - 1.030 [facility] UA Spec Desc Clean Catch (01/05/22 7:59 AM) Normal [facility] Urobilinogen Qn (U) 1.1326607 {Karri'U}/dL Normal 0.0 - 1.0 EU/dL [facility] WBC Auto Ql (U) Negative (01/05/22 7:59 AM) Normal Negative [facility] WBC LM.HPF (Urine sed) [#/Area] 6-15 /HPF Invalid Interpretation Code 0-5/HPF [facility] CHEMISTRYOrdered By: SYSTEM SYSTEM on 01-02-2022 Albumin [Mass/Vol] 4.1 g/dL Normal 3.3 - 5.0 gm/dL [facility] Albumin/Globulin [Mass ratio] 1.2 {ratio} Normal 1.1 - 2.2 [facility] ALP [Catalytic activity/Vol] 87 [iU]/d Normal 21 - 98 Int._Unit/L [facility] ALT No additional P-5'-P [Catalytic activity/Vol] 17 [iU]/d Normal 6 - 46 Int._Unit/L [facility] Anion gap [Moles/Vol] 15 mmol/L Normal 6 - 16 mEq/L [facility] AST [Catalytic activity/Vol] 21 [iU]/d Normal 5 - 43 Int._Unit/L [facility] Bilirubin [Mass/Vol] 0.6 mg/dL Normal 0.0 - 1 .1 mg/dL [facility] Bilirubin.direct [Mass/Vol] mg/dL Normal 0.1 - 0.4 mg/dL [facility] Bilirubin.indirect [Mass or moles/Vol] Unable to Calculate mg/dL Invalid Interpretation Code 0.1 - 0.9 mg/dL [facility] Calcium [Mass/Vol] 9.1 mg/dL Normal 8.9 - 11. 1 mg/dL [facility] Chloride [Moles/Vol] 103 mmol/L Normal 101 - 1 11 mmol/L [facility] CO2 [Moles/Vol] 21 mmol/L Normal 21 - 31 mmol/L [facility] Creatinine [Mass/Vol] 0.7 mg/dL Normal 0.5 - 1.3 mg/dL [facility] Globulin (S) [Mass/Vol] 3.5 g/dL Normal 1.4 - 4.0 gm/dL [facility] Glucose [Mass/Vol] 86 mg/dL Normal 55 - 199 mg/dL [facility] Lipase [Catalytic activity/Vol] 27 U/L Normal 13 - 58 unit/L [facility] Potassium [Moles/Vol] 3.7 mmol/L Normal 3.5 - 5.3 mmol/L [facility] Protein [Mass/Vol] 7.6 g/dL Normal 6.0 - 7.8 gm/dL [facility] Sodium [Moles/Vol] 135 mmol/L Normal 135 - 145 mmol/L [facility] Urea nitrogen [Mass/Vol] 9 mg/dL Normal 5 - 21 mg/d L [facility] Urea nitrogen/Creatinine [Mass ratio] 13 mg/mg Normal 10 - 20 [facility] HEMATOLOGYOrdered By: Brandie Garcia on 01-02-2022 Anisocytosis Ql (Bld) Present (01/02/22 1:09 PM) Normal [facility] Erythrocyte distribution width (RBC) [Ratio] 16.1 % High 10.9 - 14.2 % [facility] Hematocrit (Bld) [Volume fraction] 31.1 % Low 34.0 - 46.0 % [facility] Hemoglobin (Bld) [Mass/Vol] 10.8 g/dL Low 12.0 - 16.0 gm/dL [facility] Hypochromia Auto Ql (Bld) Present (01/02/22 1:09 PM) Normal [facility] MCH (RBC) [Entitic mass] 24.5 pg Low 27. 0 - 34.0 pg [facility] MCHC (RBC) [Mass/Vol] 34.6 g/dL Normal 31.4 - 36.0 gm/dL [facility] MCV (RBC) [Entitic vol] 70.6 fL Low 80.0 - 100.0 fL [facility] Microcytes Ql (Bld) Present (01/02/22 1:09 PM) Normal [facility] Morphology Cliff (Bld) [Interp] See Morphology (01/02/22 1:09 PM) Normal [facility] Platelet mean volume (Bld) [Entitic vol] 7.7 fL Normal 6.4 - 10.8 fL [facility] Platelets (Bld) [#/Vol] 301.0 E9/L Normal 150. 0 - 500.0 E9/L [facility] RBC (Bld) [#/Vol] 4.4 E12/L Normal 4.3 - 5.9 E12/L [facility] WBC corrected for nucl RBC Auto (Bld) [#/Vol] 6.2 E9/L Normal 4.0 - 11.0 E9/L [facility] HEMATOLOGYOrdered By: SYSTEM SYSTEM on 01-02-2022 Basophils/100 WBC (Bld) 1.3 % Normal 0.0 - 2.0 % [facility] Basophils/Leukocytes Auto (Bld) [Pure # fraction] 0.1 E9/L Normal 0.0 - 0.2 E9/L [facility] Eosinophils/100 WBC (Bld) 0.4 % Normal 0.0 - 8.0 % [facility] Eosinophils/Leukocytes Auto (Bld) [Pure # fraction] 0.0 E9/L Normal 0.0 - 0.5 E9/L [facility] Lymphocytes/100 WBC (Bld) 16.2 % Normal 14.0 - 50.0 % [facility] Lymphocytes/Leukocytes Auto (Bld) [Pure # fraction] 1.0 E9/L Normal 1.0 - 4.0 E9/L [facility] Monocytes/100 WBC (Bld) 5.9 % Normal 4.0 - 14.0 % [facility] Monocytes/Leukocytes Auto (Bld) [Pure # fraction] 0.4 E9/L Normal 0.2 - 1.0 E9/L [facility] Neutrophils/100 WBC (Bld) 76.2 % High 36.0 - 75.0 % [facility] Neutrophils/Leukocytes Auto (Bld) [Pure # fraction] 4.7 E9/L Normal 2.0 - 7.5 E9/L [facility] SEROLOGYOrdered By: Debbie martines on 01-02-2022 Beta hCG Ql Positive (01/02/22 1:09 PM) Normal [facility] URINALYSISOrdered By: Maranda Golden on 01-02-2022 Bacteria LM Ql (Urine sed) Trace /HPF Normal Trace/HPF [facility] Bilirubin Ql (U) Negative (01/02/22 1:12 PM) Normal Negative [facility] Clarity (U) Clear (01/02/22 1:12 PM) Normal Clear [facility] Color (U) Yellow (01/02/22 1:12 PM) Normal Yellow [facility] Epithelial cells.squamous LM.HPF (Urine sed) [#/Area] 5-8 /HPF Normal 0-2/HPF [facility] o SS Glucose Test strip (U) [Mass/Vol] Negative (01/02/22 1:12 PM) Normal Negative [facility] Hemoglobin Ql (U) Negative (01/02/22 1:12 PM) Normal Negative [facility] Ketones (U) [Mass/Vol] 3+ *ABN* (01/02/22 1:12 PM) Invalid Interpretation Code Negative [facility] SS [place].plasma/[place].R BC (Bld) [Mass ratio] 0-3 /HPF Normal 0-3/HPF [facility] Au to SS Mucus Ql (Urine sed) 2+ (01/02/22 1:12 PM) Normal [facility] Nitrite Ql (U) Negative (01/02/22 1:12 PM) Normal Negative [facility] pH (U) 6.0 *NA* (01/02/22 1:12 PM) Invalid Interpretation Code 5.0 - 9.0 [facility] Protein (U) [Mass/Vol] Negative (01/02/22 1:12 PM) Normal Negative [facility] Specific gravity (U) [Rel density] 1.025 *NA* (01/02/22 1:12 PM) Invalid Interpretation Code 1.005 - 1.030 [facility] UA Spec Desc Clean Catch (01/02/22 1:12 PM) Normal [facility] Urobilinogen Qn (U) 0.4260056 {Karri'U}/dL Normal 0.0 - 1.0 EU/dL [facility] WBC Auto Ql (U) Negative (01/02/22 1:12 PM) Normal Negative [facility] WBC LM.HPF (Urine sed) [#/Area] 0-5 /HPF Normal 0-5/HPF [facility] HEMATOLOGYOrdered By: Branide Garcia on 06-08-2021 Erythrocyte distribution width (RBC) [Ratio] 14.6 % High 11.5 - 14.0 % [facility] Hematocrit (Bld) [Volume fraction] 24.3 % Low 36.0 - 47.0 % [facility] Hemoglobin (Bld) [Mass/Vol] 8.2 g/dL Low 12.0 - 15.0 gm/dL [facility] MCH (RBC) [Entitic mass] 26.4 pg Normal 26. 0 - 32.0 pg [facility] MCHC (RBC) [Mass/Vol] 33.9 g/dL Normal 32.0 - 36.0 gm/dL [facility] MCV (RBC) [Entitic vol] 77.9 fL Low 78.0 - 95.0 fL [facility] Platelet mean volume (Bld) [Entitic vol] 9.0 fL Normal 6.0 - 9.5 fL [facility] Platelets (Bld) [#/Vol] 228.0 E9/L Normal 150. 0 - 450.0 E9/L [facility] RBC (Bld) [#/Vol] 3.1 E12/L Low 4.1 - 5.3 E12/L [facility] WBC corrected for nucl RBC Auto (Bld) [#/Vol] 12.5 E9/L High 4.0 - 10.5 E9/L [facility] BLOOD BANKOrdered By: Jazzmine Jarquin on 06-07-2021 ABO/Rh Interp Positive Invalid Interpretation Code [facility] [place] [facility] BB Subsection ABSC Gel Interp Negative (06/07/21 7:46 AM) Normal [facility] [place] BB Subsection HEMATOLOGYOrdered By: Brandie Garcia on 06-07-2021 Erythrocyte distribution width (RBC) [Ratio] 14.4 % High 11.5 - 14.0 % [facility] Hematocrit (Bld) [Volume fraction] 29.0 % Low 36.0 - 47.0 % [facility] Hemoglobin (Bld) [Mass/Vol] 9.6 g/dL Low 12.0 - 15.0 gm/dL [facility] MCH (RBC) [Entitic mass] 26.0 pg Normal 26. 0 - 32.0 pg [facility] MCHC (RBC) [Mass/Vol] 33.2 g/dL Normal 32.0 - 36.0 gm/dL [facility] MCV (RBC) [Entitic vol] 78.4 fL Normal 78.0 - 95.0 fL [facility] Platelet mean volume (Bld) [Entitic vol] 9.4 fL Normal 6.0 - 9.5 fL [facility] Platelets (Bld) [#/Vol] 285.0 E9/L Normal 150. 0 - 450.0 E9/L [facility] RBC (Bld) [#/Vol] 3.7 E12/L Low 4.1 - 5.3 E12/L [facility] WBC corrected for nucl RBC Auto (Bld) [#/Vol] 5.6 E9/L Normal 4.0 - 10.5 E9/L [facility] URINALYSISOrdered By: Delaney marley on 06-07-2021 Bacteria LM Ql (Urine sed) 1+ /HPF Invalid Interpretation Code Trace/HPF [facility] Bilirubin Ql (U) Negative (06/07/21 10:15 AM) Normal Negative [facility] Clarity (U) Clear (06/07/21 10:15 AM) Normal Clear [facility] Color (U) Yellow (06/07/21 10:15 AM) Normal Yellow [facility] Crystals LM Ql (Urine sed) Present (06/07/21 10:15 AM) Normal [facility] Epithelial cells.squamous LM.HPF (Urine sed) [#/Area] 0-2 /HPF Normal 0-2/HPF [facility] Glucose Test strip (U) [Mass/Vol] Negative (06/07/21 10:15 AM) Normal Negative [facility] Hemoglobin Ql (U) Negative (06/07/21 10:15 AM) Normal Negative [facility] Ketones (U) [Mass/Vol] Negative (06/07/21 10:15 AM) Normal Negative [facility] SS [place].plasma/[place].R BC (Bld) [Mass ratio] 0-3 /HPF Normal 0-3/HPF [facility] Au to SS Mucus Ql (Urine sed) Trace (06/07/21 10:15 AM) Normal [facility] Nitrite Ql (U) Negative (06/07/21 10:15 AM) Normal Negative [facility] pH (U) 7.0 *NA* (06/07/21 10:15 AM) Invalid Interpretation Code 5.0 - 9.0 [facility] Protein (U) [Mass/Vol] Negative (06/07/21 10:15 AM) Normal Negative [facility] Specific gravity (U) [Rel density] <=1.005 *NA* (06/07/21 10:15 AM) Invalid Interpretation Code 1.005 - 1.030 [facility] UA Auto SS UA Spec Desc Mendoza (06/07/21 10:15 AM) Normal [facility] UA Auto SS Urobilinogen Qn (U) 0.9252127 {Karri'U}/dL Normal 0.0 - 1.0 EU/dL [facility] UA Auto SS WBC Auto Ql (U) Negative (06/07/21 10:15 AM) Normal Negative [facility] [place] UA Auto SS WBC LM.HPF (Urine sed) [#/Area] 0-5 /HPF Normal 0-5/HPF [facility] UA Auto SS CHLAMYDIA/GONOCOCCUS TIM (SW AB/URINE/PAPon 11-04-2020 Chlamydia trachomatis, TIM CRAVEN Normal [facility] Comment on above: Result Comment: Test Not Performed. The transport device submitted contained a cleaning swab. On future collections the cleaning swab should be discarded after use; then the specimen should be collected using the smaller collection swab. contacted Dior at your facility on 11-04-2020 Performed at: =G Performed By: #### C T/NGNA #### [facility] [address] [place] [address] Dr. Maynor Bojorquez Neisseria gonorrhoeae, TIM TNP Normal [facility] Comment on above: Result Comment: Test not performed Performed at: =G Performed By: #### C T/NGNA #### [facility] [address] [address] [address] Maynor Bojorquez PDF Normal [facility] Comment on above: Result Comment: Perf ormed at: CB Performed By: #### C T/NGNA #### [facility] [address] [address] [address] Maynor Bojorquez ABO AND RH TYPEon 11-01-2020 ABO and Rh group Nom (Bld) ABO Rh Typing A Rh Positive Normal [facility] Comment on above: Performed By: #### A BORH #### [facility] [address] [address] [address] Maynor Bojorquez CBC AUTO DIFFon 11-01-2020 BASO # 0.0 103/ul Normal 0.0-0.1 [facility] Comment on above: Performed By: #### C BC #### [facility] [address] [place] [address] Dr. Maynor Bojorquez Basophils/100 WBC (Bld) 0.4 % Normal 0.2-2.0 [facility] Comment on above: Performed By: #### C BC #### [facility] [address] [place] [address] Dr. Maynor Bojorquez EO # 0.1 103/ul Normal 0.0-0.7 [facility] Comment on above: Performed By: #### C BC #### [facility] [address] [place] [address] Dr. Maynor Bojorquez Eosinophils/100 WBC (Bld) 0.8 % Critically low 0.9-7.0 [facility] Comment on above: Performed By: #### C BC #### [facility] [address] [place] [address] Dr. Maynor Bojorquez Erythrocyte distribution width (RBC) [Ratio] 13.0 % Normal 11.0-15.0 [facility] Comment on above: Performed By: #### C BC #### [facility] [address] [place] [address] Dr. Maynor Bojorquez Hematocrit (Bld) [Volume fraction] 37.4 % Normal 36.0-48.0 [facility] Comment on above: Performed By: #### C BC #### [facility] [address] [place] [address] Dr. Maynor Bojorquez Hemoglobin (Bld) [Mass/Vol] 13.0 g/dL Normal 12.0-16.0 [facility] Comment on above: Performed By: #### C BC #### [facility] [address] [place] [address] Dr. Maynor Bojorquez IG # 0.03 10e3/ul Normal 0.00-0.03 [facility] Comment on above: Performed By: #### C BC #### [facility] [address] [place] [address] Dr. Maynor Bojorquez IG % 0.4 % Normal 0.0-0.5 [facility] Comment on above: Performed By: #### C BC #### [facility] [address] [place] [address] Dr. Maynor Bojorquez LYMPH # 1.7 103/ul Normal 1.2-3.8 [facility] Comment on above: Performed By: #### C BC #### [facility] [address] [place] [address] Dr. Maynor Bojorquez Lymphocytes/100 WBC (Bld) 22.7 % Normal 20.5-60.0 [facility] Comment on above: Performed By: #### C BC #### [facility] [address] [place] [address] Dr. Maynor Bojorquez MANUAL DIFF REQ NO Normal [facility] Comment on above: Performed By: #### C BC #### [facility] [address] [place] [address] Dr. Maynor Bojorquez MCH (RBC) [Entitic mass] 29.1 pg Normal 26.7-34.0 [facility] Comment on above: Performed By: #### C BC #### [facility] [address] [place] [address] Dr. Maynor Bojorquez MCHC (RBC) [Mass/Vol] 34.8 g/dL Normal 29.9-35.2 [facility] Comment on above: Performed By: #### C BC #### [facility] [address] [place] [address] Dr. Maynor Bojorquez MCV (RBC) [Entitic vol] 83.9 fL Normal 79.1-95.6 [facility] Comment on above: Performed By: #### C BC #### [facility] [address] [place] [address] Dr. Maynor Bojorquez MONO # 0.7 103/ul Normal 0.3-0.8 [facility] Comment on above: Performed By: #### C BC #### [facility] [address] [place] [address] Dr. Maynor Bojorquez Monocytes/100 WBC (Bld) 9.5 % Normal 1.7-12.0 [facility] Comment on above: Performed By: #### C BC #### [facility] [address] [place] [address] Dr. Maynor Bojorquez NEUT # 5.0 103/ul Normal 1.4-6.5 [facility] Comment on above: Performed By: #### C BC #### [facility] [address] [place] [address] Dr. Maynor Bojorquez Neutrophils/100 WBC (Bld) 66.2 % Normal 43.0-75.0 [facility] Comment on above: Performed By: #### C BC #### [facility] [address] [place] [address] Dr. Maynor Bojorquez Platelet mean volume (Bld) [Entitic vol] 10.0 fL Normal 9.5-13.5 [facility] Comment on above: Performed By: #### C BC #### [facility] [address] [place] [address] Dr. Maynor Bojorquez PLT 252 103/ul Normal 150-450 [facility] Comment on above: Performed By: #### C BC #### [facility] [address] [place] [address] Dr. Maynor Bojorquez RBC 4.46 106/ul Normal 3.40-5.30 [facility] Comment on above: Performed By: #### C BC #### [facility] [address] [place] [address] Dr. Maynor Bojorquez WBC 7.6 103/ul Normal 4.0-11.0 [facility] Comment on above: Performed By: #### C BC #### [facility] [address] [place] [address] Dr. Maynor Bojorquez ER URINE PROFILEon 1 Bilirubin Ql (U) SMALL Abnormal NEGATIVE [facility] Comment on above: Performed By: #### E RUR #### [facility] [address] [place] [address] Dr. Maynor Bojorquez Clarity (U) CLEAR Normal CLEAR [facility] Comment on above: Performed By: #### E RUR #### [facility] [address] [place] [address] Dr. Maynor Bojorquez Color (U) YELLOW Normal YELLOW [facility] Comment on above: Performed By: #### E RUR #### [facility] [address] [place] [address] Dr. Maynor BARNARD A micrscopic examination will be performed if indicated. Normal [facility] Comment on above: Performed By: #### E RUR #### [facility] [address] [place] [address] Dr. Maynor Bojorquez Glucose Ql (U) Negative Normal NEGATIVE [facility] Comment on above: Performed By: #### E RUR #### [facility] [address] [place] [address] Dr. Maynor Bojorquez Hemoglobin Ql (U) Negative Normal NEGATIVE [facility] Comment on above: Performed By: #### E RUR #### [facility] [address] [place] [address] Dr. Maynor Bojorquez Ketones Ql (U) >=80 Abnormal NEGATIVE [facility] Comment on above: Performed By: #### E RUR #### [facility] [address] [place] [address] Dr. Maynor Bojorquez LEUKOCYTES Negative Normal NEGATIVE [facility] Comment on above: Performed By: #### E RUR #### [facility] [address] [place] [address] Dr. Maynor Bojorquez Nitrite Ql (U) Negative Normal NEGATIVE [facility] Comment on above: Performed By: #### E RUR #### [facility] [address] [place] [address] Dr. Maynor Bojorquez pH (U) 6.0 [pH] Normal 5-9 [facility] Comment on above: Performed By: #### E RUR #### [facility] [address] [place] [address] Dr. Maynor Bojorquez SPEC GRAVITY >=1.030 Abnormal 1.005-<=1.02 5 [facility] Comment on above: Performed By: #### E RUR #### [facility] [address] [place] [address] Dr. Maynor Bojorquez UA PROTEIN TRACE Normal NEGATIVE/ TRACE [facility] Comment on above: Performed By: #### E RUR #### [facility] [address] [place] [address] Dr. Maynor Bojorquez UR MICRO IND NOT INDICATED Normal [facility] Comment on above: Performed By: #### E RUR #### [facility] [address] [place] [address] Dr. Maynor Bojorquez Urobilinogen Qn (U) 1.0 {Karri'U}/dL Normal 0.2 - 1. 0 [facility] Comment on above: Performed By: #### E RUR #### [facility] [address] [place] [address] Dr. Maynor Bojorquez PREG QUANT HCGon 11-01-2020 HCG QUANT [id number] mIU/mL Normal [facility] Comment on above: Performed By: #### P REGQNT #### [facility] [address] [place] [address] Dr. Maynor Bojorquez HCG RANGE SEE BELOW Normal [facility] Comment on above: Result Comment: 5-50 0-1 WEEK 40-300 1-2 WEEKS 100-1,000 2-3 WEEKS 500-6,000 3-4 WEEKS 5,000-200,000 1-2 MONTHS 10,000-100,000 2-3 MONTHS 3,000-50,000 2ND TRIMESTER 1,000-50,000 3RD TRIMESTER Performed By: #### P REGQNT #### [facility] [address] [place] [address] Dr. Maynor Bojorquez PROF CHEM 8 (BAS METB)on Anion gap [Moles/Vol] 13.6 mmol/L Normal [facility] Comment on above: Performed By: #### B MP #### [facility] [address] [place] [address] Dr. Maynor Bojorquez Calcium [Mass/Vol] 9.0 mg/dL Normal 8.4-10.2 [facility] Comment on above: Performed By: #### B MP #### [facility] [address] [place] [address] Dr. Maynor Bojorquez Chloride [Moles/Vol] 102 mmol/L Normal 98-107 [facility] Comment on above: Performed By: #### B MP #### [facility] [address] [address] [address] Maynor Bojorquez CO2 [Moles/Vol] 24.3 mmol/L Normal 22.0-30.0 [facility] Comment on above: Performed By: #### B MP #### [facility] [address] [address] [address] Maynor Bojorquez Creatinine [Mass/Vol] 0.63 mg/dL Normal 0.52-1.04 [facility] Comment on above: Performed By: #### B MP #### [facility] [address] [address] [address] Maynor Bojorquez Glucose [Mass/Vol] 73 mg/dL Critically low 74-106 Th [facility] Comment on above: Performed By: #### B MP #### [facility] [address] [address] [address] Maynor Bojorquez Potassium [Moles/Vol] 3.9 mmol/L Normal 3.4-5.0 [facility] Comment on above: Performed By: #### B MP #### [facility] [address] [address] [address] Maynor Bojorquez Sodium [Moles/Vol] 136 mmol/L Critically low 137-145 Th [facility] Comment on above: Performed By: #### B MP #### [facility] [address] [address] [address] Maynor Bojorquez Urea nitrogen [Mass/Vol] 8.0 mg/dL Normal 6.4-19.3 [facility] Comment on above: Performed By: #### B MP #### [facility] [address] [address] [address] Maynor Bojorquez Urea nitrogen/Creatinine [Mass ratio] 12.7 mg/mg Normal [facility] Comment on above: Performed By: #### B MP #### [facility] [address] [address] [address] Maynor Bojorquez US PREG TVon 11-01-2020 US PREG TV EXAM: US PREG TV HISTORY: Vaginal bleeding. COMPARISON: None available. TECHNIQUE: Transvaginal ultrasound of the pelvis was performed using Duplex Doppler. Transvaginal ultrasound medically necessary for optimal imaging. FINDINGS: Ultrasound images demonstrate a gravid uterus with a single intrauterine gestational sac. Mean sac diameter measures 3.37 cm, indicative of a 8 week 3 day gestation. Yolk sac noted measuring 0.2 cm. Within the gestational sac is a well-defined embryo with a crown rump length measuring 2.09 cm indicative of a 8 week 5 day gestation. Based on last menstrual period of 09/05/2020, estimated gestational age based on clinical dating 8 weeks 1 day. Embryonic cardiac activity is noted at a rate of 167 beats per minute. There is a fairly prominent 4.9 x 3.6 x 3.0 cm focus of perigestational heterogeneous echogenicity suggestive of a subchorionic hematoma. On some of the images it appears to have mass effect on the gestational sac. The cervix appears closed and measures 3.4 cm in length. The right ovary measures up to 2.9 x 2.3 x 2.6 cm, and the left ovary measures up to 3.0 x 1.2 x 2.8 cm. Bilateral ovaries unremarkable. Arterial and venous flow are noted in both ovaries. No significant free fluid is noted within the pelvis. IMPRESSION: Single live intrauterine gestation at approximately 8 weeks 4 days with an estimated due date of 06/09/2021. Appropriate correlation with clinical dating. Embryonic cardiac activity noted at a rate of 167 bpm. 4.9 cm subchorionic hematoma. Bilateral ovaries unremarkable. No pelvic free fluid. Electronically authenticated by: CY HERNANDEZ Date: 2020-11-01 18:11 Normal [facility] WET PREPon 11-01-2020 CLUE CELLS NONE SEEN Normal NONE SEEN [facility] Comment on above: Performed By: #### W P #### [facility] [address] [address] [address] Maynor Bojorquez FUNGAL ELEMENTS NONE SEEN Normal NONE SEEN [facility] Comment on above: Performed By: #### W P #### [facility] [address] [place], [place] [address] Dr. Maynor Bojorquez RBC -WET PREP RARE Abnormal NONE SEEN [facility] Comment on above: Performed By: #### W P #### [facility] [address] [address] [address] Maynor Bojorquez TRICHOMONAS NONE SEEN Normal NONE SEEN [facility] Comment on above: Performed By: #### W P #### [facility] [address] [address] [address] Maynor Bojorquez WBC- WET PREP MODERATE Abnormal NONE SEEN [facility] Comment on above: Performed By: #### W P #### [facility] [address] [address] [address] Maynor Bojorquez WET PREP BACTERIA FEW Abnormal NONE SEEN [facility] Comment on above: Performed By: #### W P #### [facility] [address] [address] [address] Maynor Bojorquez Vital Signs Date Time Vital Sign Value Performing Clinician Facility 05-09-2024 10:52-0400 Body mass index (BMI) [Ratio] 26.85 kg/m2 [facility] Nurse [facility] 05-09-2024 10:52-0400 Body weight 70.94 kg [facility] Nurse [facility] 05-09-2024 10:52-0400 Diastolic blood pressure 72 mm[Hg] [facility] Nurse [facility] 05-09-2024 10:52-0400 Systolic blood pressure 112 mm[Hg] [facility] 04-01-2024 14:35-0500 Body height 162.56 cm John Paul Lovell MD Work Phone: [facility] 04-01-2024 14:35-0500 Body mass index (BMI) [Ratio] 26.3 kg/m2 John Paul Lovell MD Work Phone: [facility] 04-01-2024 14:35-0500 Body temperature 97.9 [degF] John Paul Lovell MD Work Phone: [facility] 04-01-2024 14:35-0500 Body weight 69.51 kg John Paul Lovell MD Work Phone: [facility] 04-01-2024 14:35-0500 Diastolic blood pressure 61 mm[Hg] John Paul Lovell MD Work Phone: [facility] 04-01-2024 14:35-0500 Heart rate 75 /min John Paul Lovell MD Work Phone: [facility] 04-01-2024 14:35-0500 Respiratory rate 18 /min John Paul Lovell MD Work Phone: [facility] 04-01-2024 14:35-0500 SaO2% (BldA) [Mass fraction] 99 % John Paul Lovell MD Work Phone: [facility] 04-01-2024 14:35-0500 Systolic blood pressure 98 mm[Hg] John Paul Lovell MD Work Phone: [facility] 10-16-2023 14:13-0400 Body height 162.6 cm Mak Jordan LOADER HELPER Work Phone: [facility] 10-16-2023 14:13-0400 Body mass index (BMI) [Ratio] 28.67 kg/m2 Mak Jordan LOADER HELPER Work Phone: [facility] 10-16-2023 14:13-0400 Body temperature 98.2 [degF] Mak Jordan LOADER HELPER Work Phone: [facility] 10-16-2023 14:13-0400 Body weight 75.75 kg Mak Jordan LOADER HELPER Work Phone: [facility] 10-16-2023 14:13-0400 Diastolic blood pressure 78 mm[Hg] Mak Jordan LOADER HELPER Work Phone: [facility] 10-16-2023 14:13-0400 Heart rate 74 /min Mak Jordan LOADER HELPER Work Phone: [facility] 10-16-2023 14:13-0400 SaO2% (BldA) [Mass fraction] 98 % Mak Jordan LOADER HELPER Work Phone: [facility] 10-16-2023 14:13-0400 Systolic blood pressure 124 mm[Hg] Mak Jordan LOADER HELPER Work Phone: [facility] 09-12-2023 17:31-0400 Hour[employer] Rounding Magalis Nataprawira [facility] Comment on above: Result Comment: waiting for ride to come 09-12-2023 16:32-0400 [employer] Round[employer] Magalis Nataprawira [facility] Comment on above: Result Comment: discharge instructions sheyla newman with verbal understanding. 09-12-2023 15:26-0400 Hour[employer] Rounding Magalis Nataprawira [facility] 09-12-2023 08:52-0400 Diastolic blood pressure 51 mm[Hg] Magalis Nataprawira [facility] 09-12-2023 08:52-0400 Heart rate 68 /min Magalis Nataprawira [facility] 09-12-2023 08:52-0400 Mean blood pressure 67 mm[Hg] Magalis Nataprawira [facility] 09-12-2023 08:52-0400 Systolic blood pressure 100 mm[Hg] Magalis Nataprawira [facility] 09-12-2023 08:52-0400 Mean blood pressure 67 mm[Hg] Magalis Nataprawira [facility] 09-12-2023 08:52-0400 Respiratory rate 18 /min Magalis Nataprawira [facility] 09-11-2023 23:45-0400 Diastolic blood pressure 78 mm[Hg] Magalis Nataprawira [facility] 09-11-2023 23:45-0400 Heart rate 65 /min Magalis Nataprawira [facility] 09-11-2023 23:45-0400 Mean blood pressure 97 mm[Hg] Magalis Nataprawira [facility] 09-11-2023 23:45-0400 Systolic blood pressure 136 mm[Hg] Magalis Nataprawira [facility] 09-11-2023 23:45-0400 Blood Pressure Location Magalis Nataprawira [facility] 09-11-2023 23:45-0400 Mean blood pressure 97 mm[Hg] Magalis Nataprawira [facility] 09-11-2023 23:45-0400 Respiratory rate 22 /min Magalis Nataprawira [facility] 09-11-2023 21:03-0400 Heart rate 75 /min Magalis Nataprawira [facility] 09-11-2023 21:03-0400 SaO2% (BldA) [Mass fraction] 98 % Magalis Nataprawira [facility] 09-11-2023 21:02-0400 Diastolic blood pressure 73 mm[Hg] Magalis Nataprawira [facility] 09-11-2023 21:02-0400 Mean blood pressure 91 mm[Hg] Magalis Nataprawira [facility] 09-11-2023 21:02-0400 Systolic blood pressure 127 mm[Hg] Magalis Nataprawira [facility] 09-11-2023 21:00-0400 Body temperature 98.42 [degF] Magalis Nataprawira [facility] 09-11-2023 21:00-0400 Respiratory rate 18 /min Magalis Nataprawira [facility] 09-11-2023 16:00-0400 Mean blood pressure 80 mm[Hg] Magalis Nataprawira [facility] 09-11-2023 06:15-0400 Blood Pressure Location Magalis Taylorra [facility] 09-11-2023 06:00-0400 Body temperature 98.24 [degF] Magalis Taylorra [facility] 09-11-2023 04:45-0400 SaO2% (BldA) [Mass fraction] 97 % Magalis Taylorra [facility] 09-11-2023 03:00-0400 Body temperature 97.88 [degF] Magalis Taylorra [facility] 09-10-2023 21:38-0400 bodymassindex 1.6 kg/m2 Magalis Taylorra [facility] Comment on above: Result Comment: ^~:!ZScore [facility] 09-10-2023 21:38-0400 Height/Length Percentile 60.85 1 Magalis Taylorra [facility] Comment on above: Result Comment: ^~:!Percentile Source [facility] 09-10-2023 21:38-0400 Height/Length Z-Score 0.28 1 Magalis Taylorra [facility] Comment on above: Result Comment: ^~:!ZScore [facility] 09-10-2023 21:38-0400 Weight Percentile 95.70 % Magalis Taylorra [facility] Comment on above: Result Comment: ^~:!Percentile Source [facility] 09-10-2023 21:38-0400 Weight Z-Score 1.72 1 Magalis Taylorra [facility] Comment on above: Result Comment: ^~:!ZScore [facility] 08-29-2023 16:25-0400 Hourly Rounding Ras Miller [facility] Comment on above: Result Comment: discharge instructions sheyla chavezblaine, questions answered and papers signed 08-29-2023 15:06-0400 bodymassindex 1.44 kg/m2 Ras Miller [facility] Comment on above: Result Comment: ^~:!ZScore [facility] 08-29-2023 15:06-0400 Height/Length Percentile 60.30 1 Ras Miller [facility] Comment on above: Result Comment: ^~:!Percentile [facility] 08-29-2023 15:06-0400 Height/Length Z-Score 0.26 1 Ras Miller [facility] Comment on above: Result Comment: ^~:!ZScore [facility] 08-29-2023 15:06-0400 Weight Percentile 93.68 % Ras Miller [facility] Comment on above: Result Comment: ^~:!Percentile [facility] 08-29-2023 15:06-0400 Weight Z-Score 1.53 1 Ras Miller [facility] Comment on above: Result Comment: ^~:!ZScore [facility] 08-29-2023 15:00-0400 Diastolic blood pressure 74 mm[Hg] Ras Miller [facility] 08-29-2023 15:00-0400 Heart rate 94 /min Ras Miller [facility] 08-29-2023 15:00-0400 Mean blood pressure 92 mm[Hg] Ras Miller [facility] 08-29-2023 15:00-0400 Respiratory rate 18 /min Ras Miller [facility] 08-29-2023 15:00-0400 Systolic blood pressure 127 mm[Hg] Ras Miller [facility] 07-19-2023 07:30-0400 Hourly Rounding Magalis Nataprawira [facility] Comment on above: Result Comment: discharge instructions g paty to pt. pt requests an abdominal binder. 07-19-2023 07:15-0400 Body temperature 98.06 [degF] Magalis Nataprawira [facility] 07-19-2023 07:15-0400 Diastolic blood pressure 46 mm[Hg] Magalis Nataprawira [facility] 07-19-2023 07:15-0400 Heart rate 77 /min Magalis Nataprawira [facility] 07-19-2023 07:15-0400 Hourly Rounding Magalis Nataprawira [facility] 07-19-2023 07:15-0400 Mean blood pressure 68 mm[Hg] Magalis Nataprawira [facility] 07-19-2023 07:15-0400 Systolic blood pressure 112 mm[Hg] Magalis Nataprawira [facility] 07-19-2023 06:44-0400 bodymassindex 1.44 kg/m2 Magalis Nataprawira [facility] Comment on above: Result Comment: ^~:!ZScore Source [place] [place] 07-19-2023 06:44-0400 Height/Length Percentile 60.93 1 Magalis Nataprawira [facility] Comment on above: Result Comment: ^~:!Percentile Source [facility] 07-19-2023 06:44-0400 Height/Length Z-Score 0.28 1 Magalis Nataprawira [facility] Comment on above: Result Comment: ^~:!ZScore Source [facility] 07-19-2023 06:44-0400 Weight Percentile 93.73 % Magalis Nataprawira [facility] Comment on above: Result Comment: ^~:!Percentile Source [facility] 07-19-2023 06:44-0400 Weight Z-Score 1.53 1 Magalis Snow [facility] Comment on above: Result Comment: ^~:!ZScore Source [place] [place] 03-20-2023 08:14-0500 Body mass index (BMI) [Ratio] 27.09 kg/m2 Kourtneyanalisa Lindsayman LOADER HELPER Work Phone: [facility] 03-20-2023 08:14-0500 Body weight 71.58 kg Kourtney Pierce LOADER HELPER Work Phone: [facility] 03-20-2023 08:14-0500 Diastolic blood pressure 76 mm[Hg] Kourtney Lindsayman LOADER HELPER Work Phone: [facility] 03-20-2023 08:14-0500 Systolic blood pressure 124 mm[Hg] Kourtney Lindsayman LOADER HELPER Work Phone: [facility] 03-15-2023 06:43-0500 Body height 162.6 cm Kourtney Pierce LOADER HELPER Work Phone: [facility] 02-13-2023 17:00-0500 Heart rate 76 /min Steven Alatorre [facility] 02-13-2023 17:00-0500 Mean blood pressure 82 mm[Hg] Steven Alatorre [facility] 02-13-2023 17:00-0500 SaO2% (BldA) [Mass fraction] 98 % Steven Alatorre [facility] 02-13-2023 16:07-0500 Diastolic blood pressure 66 mm[Hg] Steven Alatorre [facility] 02-13-2023 16:07-0500 Heart rate 71 /min Steven Alatorre [facility] 02-13-2023 16:07-0500 Mean blood pressure 81 mm[Hg] Steven Celi [facility] 02-13-2023 16:07-0500 Respiratory rate 16 /min Steven Celi [facility] 02-13-2023 16:07-0500 SaO2% (BldA) [Mass fraction] 100 % Steven Celi [facility] 02-13-2023 16:07-0500 Systolic blood pressure 111 mm[Hg] Steven Celi [facility] 02-13-2023 15:21-0500 Diastolic blood pressure 67 mm[Hg] Steven Celi [facility] 02-13-2023 15:21-0500 Heart rate 65 /min Steven Celi [facility] 02-13-2023 15:21-0500 Mean blood pressure 83 mm[Hg] Steven Celi [facility] 02-13-2023 15:21-0500 SaO2% (BldA) [Mass fraction] 100 % Steven Celi [facility] 02-13-2023 15:21-0500 Systolic blood pressure 114 mm[Hg] Steven Celi [facility] 02-13-2023 14:18-0500 Body temperature 98.06 [degF] Steven Celi [facility] 02-13-2023 14:18-0500 bodymassindex 0.93 kg/m2 Steven Celi [facility] Comment on above: Result Comment: [facility] [place] 02-13-2023 14:18-0500 Heart rate 70 /min Steven Quiroze [facility] 02-13-2023 14:18-0500 Height/Length Percentile 60.56 1 Steven Quiroze [facility] Comment on above: Result Comment: ^~:!Percentile [facility] 02-13-2023 14:18-0500 Height/Length Z-Score 0.27 1 Steven Quiroze [facility] Comment on above: Result Comment: ^~:!ZScore [facility] 02-13-2023 14:18-0500 Weight Percentile 84.08 % Steven Quiroze [facility] Comment on above: Result Comment: ^~:!Percentile [facility] 02-13-2023 14:18-0500 Weight Z-Score 1.00 1 Steven Quiroze [facility] Comment on above: Result Comment: ^~:!ZScore [facility] 01-26-2023 21:13-0500 Diastolic blood pressure 57 mm[Hg] Steven Quiroze [facility] 01-26-2023 21:13-0500 Heart rate 74 /min Steven Quiroze [facility] 01-26-2023 21:13-0500 Mean blood pressure 75 mm[Hg] Steven Quiroze [facility] 01-26-2023 21:13-0500 Respiratory rate 18 /min Steven Quiroze [facility] 01-26-2023 21:13-0500 SaO2% (BldA) [Mass fraction] 100 % Steven Celi [facility] 01-26-2023 21:13-0500 Systolic blood pressure 110 mm[Hg] Steven Celi [facility] 01-26-2023 20:37-0500 Diastolic blood pressure 83 mm[Hg] Steven Celi [facility] 01-26-2023 20:37-0500 Heart rate 83 /min Steven Alatorre [facility] 01-26-2023 20:37-0500 Mean blood pressure 104 mm[Hg] Steven Quiroze [facility] 01-26-2023 20:37-0500 Respiratory rate 17 /min Steven Alatorre [facility] 01-26-2023 20:37-0500 SaO2% (BldA) [Mass fraction] 100 % Steven Quiroze [facility] 01-26-2023 20:37-0500 Systolic blood pressure 146 mm[Hg] Steven Quiroze [facility] 01-26-2023 19:10-0500 Body temperature 98.42 [degF] Steven Alatorre [facility] 01-26-2023 19:10-0500 bodymassindex 1.05 kg/m2 Steven Quiroze [facility] Comment on above: Result Comment: ^~:!ZScore [facility] 01-26-2023 19:10-0500 Diastolic blood pressure 61 mm[Hg] Steven Alatorre [facility] 01-26-2023 19:10-0500 Heart rate 71 /min Steven Alatorre [facility] 01-26-2023 19:10-0500 Height/Length Percentile 71.85 1 Steven Quiroze [facility] Comment on above: Result Comment: ^~:!Percentile Source [facility] 01-26-2023 19:10-0500 Height/Length Z-Score 0.58 1 Steven Alatorre [facility] Comment on above: Result Comment: ^~:!ZScore [facility] 01-26-2023 19:10-0500 Respiratory rate 18 /min Steven Celi [facility] 01-26-2023 19:10-0500 SaO2% (BldA) [Mass fraction] 99 % Steven Celi [facility] 01-26-2023 19:10-0500 Systolic blood pressure 120 mm[Hg] Steven Celi [facility] 01-26-2023 19:10-0500 weight 1.21 1 Steven Celi [facility] Comment on above: Result Comment: ^~:!ZScore Source [place] [place] 01-26-2023 19:10-0500 Weight Percentile 88.76 % Steven Quiroze [facility] Comment on above: Result Comment: ^~:!Percentile Source [facility] 01-23-2023 17:43-0500 Diastolic blood pressure 80 mm[Hg] Steven Celi [facility] 01-23-2023 17:43-0500 Heart rate 70 /min Steven Celi [facility] 01-23-2023 17:43-0500 Mean blood pressure 92 mm[Hg] Steven Celi [facility] 01-23-2023 17:43-0500 Respiratory rate 16 /min Steven Celi [facility] 01-23-2023 17:43-0500 SaO2% (BldA) [Mass fraction] 99 % Steven Celi [facility] 01-23-2023 17:43-0500 Systolic blood pressure 116 mm[Hg] Steven Celi [facility] 01-23-2023 17:00-0500 Diastolic blood pressure 50 mm[Hg] Steven Celi [facility] 01-23-2023 17:00-0500 Heart rate 62 /min Steven Quiroze [facility] 01-23-2023 17:00-0500 Mean blood pressure 65 mm[Hg] Steven Quiroze [facility] 01-23-2023 17:00-0500 Respiratory rate 18 /min Steven Quiroze [facility] 01-23-2023 17:00-0500 SaO2% (BldA) [Mass fraction] 100 % Steven Celi [facility] 01-23-2023 17:00-0500 Systolic blood pressure 95 mm[Hg] Steven Quiroze [facility] 01-23-2023 16:30-0500 Diastolic blood pressure 51 mm[Hg] Steven Quiroze [facility] 01-23-2023 16:30-0500 Heart rate 53 /min Steven Quiroze [facility] 01-23-2023 16:30-0500 Mean blood pressure 66 mm[Hg] Steven Quiroze [facility] 01-23-2023 16:30-0500 Respiratory rate 19 /min Steven Quiroze [facility] 01-23-2023 16:30-0500 SaO2% (BldA) [Mass fraction] 99 % Steven Celi [facility] 01-23-2023 16:30-0500 Systolic blood pressure 97 mm[Hg] Steven Celi [facility] 01-23-2023 11:45-0500 Body temperature 97.7 [degF] Steven Celi [facility] 01-23-2023 11:45-0500 bodymassindex 1.35 kg/m2 Steven Celi [facility] Comment on above: Result Comment: ^~:!ZScore [facility] 01-23-2023 11:45-0500 Heart rate 65 /min Steven Alatorre [facility] 01-23-2023 11:45-0500 Height/Length Percentile 60.60 1 Steven Alatorre [facility] Comment on above: Result Comment: ^~:!Percentile Source -[facility] [place] 01-23-2023 11:45-0500 Height/Length Z-Score 0.27 1 Steven Alatorre [facility] Comment on above: Result Comment: ^~:!ZScore [facility] 01-23-2023 11:45-0500 weight 1.42 1 Steven Alatorre [facility] Comment on above: Result Comment: ^~:!ZScore [facility] 01-23-2023 11:45-0500 Weight Percentile 92.25 % Steven Alatorre [facility] Comment on above: Result Comment: ^~:!Percentile Source -[facility] [place] 12-07-2022 23:02-0400 Body temperature 98.24 [degF] Kaylinn Dokken [facility] 12-07-2022 23:02-0400 bodymassindex 1.61 kg/m2 Kaylinn Dokken [facility] Comment on above: Result Comment: ^~:!ZScore [facility] 12-07-2022 23:02-0400 Diastolic blood pressure 46 mm[Hg] Kaylinn Dokken [facility] 12-07-2022 23:02-0400 Heart rate 78 /min Kaylinn Dokken [facility] 12-07-2022 23:02-0400 Height/Length Percentile 45.75 1 Kaylinn Dokken [facility] Comment on above: Result Comment: ^~:!Percentile Source [facility] 12-07-2022 23:02-0400 Height/Length Z-Score -0.11 1 Damaris Jean Baptiste [facility] Comment on above: Result Comment: ^~:!Trace [facility] 12-07-2022 23:02-0400 Respiratory rate 18 /min Damaris Jean Baptiste [facility] 12-07-2022 23:02-0400 SaO2% (BldA) [Mass fraction] 97 % Damaris Jean Baptiste [facility] 12-07-2022 23:02-0400 Systolic blood pressure 113 mm[Hg] Damaris Jean Baptiste [facility] 12-07-2022 23:02-0400 weight 1.61 1 Damaris Jean Baptiste [facility] Comment on above: Result Comment: ^~:!Trace [facility] 12-07-2022 23:02-0400 Weight Percentile 94.60 % Damaris Jean Baptiste [facility] Comment on above: Result Comment: ^~:!Percentile Source [facility] 10-30-2022 10:51-0400 Body temperature 98.24 [degF] Steven Alatorre [facility] 10-30-2022 10:51-0400 bodymassindex 1.51 Steven Alatorre [facility] Comment on above: Result Comment: ^~:![facility] 10-30-2022 10:51-0400 Diastolic blood pressure 72 mm[Hg] Steven Alatorre [facility] 10-30-2022 10:51-0400 Heart rate 80 /min Steven Alatorre [facility] 10-30-2022 10:51-0400 Height/Length Percentile 61.36 Steven Alatorre [facility] Comment on above: Result Comment: ^~:!Percentile Source -[facility] 10-30-2022 10:51-0400 Height/Length Z-Score 0.29 Steven Alatorre [facility] Comment on above: Result Comment: ^~:!ZScore [facility] 10-30-2022 10:51-0400 Respiratory rate 16 /min Steven Alatorre [facility] 10-30-2022 10:51-0400 SaO2% (BldA) [Mass fraction] 97 % Steven Alatorre [facility] 10-30-2022 10:51-0400 Systolic blood pressure 110 mm[Hg] Steven Alatorre [facility] 10-30-2022 10:51-0400 weight 1.60 Steven Alatorre [facility] Comment on above: Result Comment: ^~:!ZScore [facility] 10-30-2022 10:51-0400 Weight Percentile 94.47 % Steven Alatorre [facility] Comment on above: Result Comment: ^~:!Percentile Source -[facility] 08-10-2022 12:40-0400 Hourly Rounding Jerry STEVE [facility] Comment on above: Result Comment: discharged out to [facility] without incident accompanied per nurse, the baby was carried in the infant carseat 08-10-2022 12:30-0400 Hourly Rounding Jerry STEVE [facility] Comment on above: Result Comment: discharge instructions g paty the pt verbalized understanding 08-10-2022 11:42-0400 Hourly Rounding Jerry STEVE [facility] Comment on above: Result Comment: sitting in bed. denies n eeds or pain 08-10-2022 07:21-0400 Heart rate 73 /min Jerry STEVE [facility] 08-10-2022 07:21-0400 SaO2% (BldA) [Mass fraction] 100 % Jerry STEVE [facility] 08-10-2022 07:19-0400 Body temperature 98.06 [degF] Jerry STEVE [facility] 08-10-2022 07:19-0400 Diastolic blood pressure 77 mm[Hg] Jerry STEVE [facility] 08-10-2022 07:19-0400 Mean blood pressure 86 mm[Hg] Jerry STEVE [facility] 08-10-2022 07:19-0400 Systolic blood pressure 104 mm[Hg] Jerry STEVE [facility] 08-10-2022 07:18-0400 Respiratory rate 18 /min Jerry STEVE [facility] 08-09-2022 20:27-0400 Blood Pressure Location Jerry STEVE [facility] 08-09-2022 20:27-0400 Body temperature 97.34 [degF] Jerry STEVE [facility] 08-09-2022 20:27-0400 Diastolic blood pressure 68 mm[Hg] Jerry STEVE [facility] 08-09-2022 20:27-0400 Heart rate 81 /min Jerry STEVE [facility] 08-09-2022 20:27-0400 Mean blood pressure 87 mm[Hg] Jerry STEVE [facility] 08-09-2022 20:27-0400 Respiratory rate 16 /min Jerry STEVE [facility] 08-09-2022 20:27-0400 Systolic blood pressure 126 mm[Hg] Jerry STEVE [facility] 08-09-2022 15:24-0400 Heart rate 77 /min Jerry STEVE [facility] 08-09-2022 15:24-0400 SaO2% (BldA) [Mass fraction] 98 % Jerry STEVE [facility] 08-09-2022 15:24-0400 Body temperature 98.24 [degF] Jerry STEVE [facility] 08-09-2022 15:24-0400 Diastolic blood pressure 64 mm[Hg] Jerry STEVE [facility] 08-09-2022 15:24-0400 Mean blood pressure 88 mm[Hg] Jerry STEVE [facility] 08-09-2022 15:24-0400 Systolic blood pressure 135 mm[Hg] Jerry STEVE [facility] 08-09-2022 15:15-0400 Blood Pressure Location Jerry STEVE [facility] 08-09-2022 15:15-0400 Respiratory rate 18 /min Jerry STEVE [facility] 08-09-2022 07:28-0400 SaO2% (BldA) [Mass fraction] 100 % Jerry STEVE [facility] 08-09-2022 07:27-0400 Mean blood pressure 86 mm[Hg] Jerry STEVE [facility] 08-09-2022 07:15-0400 Blood Pressure Location Jerry STEVE [facility] 08-08-2022 19:42-0400 Mean blood pressure 86 mm[Hg] Jerry STEVE [facility] 08-08-2022 08:15-0400 Mean blood pressure 85 mm[Hg] Jerry STEVE [facility] 08-07-2022 06:36-0400 bodymassindex 1.68 Jerry STEVE [facility] Comment on above: Result Comment: ^~:![facility] 08-07-2022 06:36-0400 Height/Length Percentile 61.53 Jerry STEVE [facility] Comment on above: Result Comment: ^~:!Percentile Source [facility] 08-07-2022 06:36-0400 Height/Length Z-Score 0.29 Jerry STEVE [facility] Comment on above: Result Comment: ^~:!ZScore [facility] 08-07-2022 06:36-0400 weight 1.76 Jerry STEVE [facility] Comment on above: Result Comment: ^~:!ZScore [facility] 08-07-2022 06:36-0400 Weight Percentile 96.10 % Jerry STEVE [facility] Comment on above: Result Comment: ^~:!Percentile Source [facility] 08-04-2022 13:28-0400 Hourly Rounding Jerry STEVE [facility] 08-04-2022 13:00-0400 Hourly Rounding Jerry STEVE [facility] Comment on above: Result Comment: verbal and written disch arge instructions given to pt and family, encouraged to return for any prob or concerns 08-04-2022 12:00-0400 Hourly Rounding Jerry STEVE [facility] 08-04-2022 11:15-0400 Blood Pressure Location Jerry STEVE [facility] 08-04-2022 11:15-0400 Body temperature 98.06 [degF] Jerry STEVE [facility] 08-04-2022 11:15-0400 bodymassindex 1.67 Jerry STEVE [facility] Comment on above: Result Comment: ^~:![facility] 08-04-2022 11:15-0400 Diastolic blood pressure 58 mm[Hg] Jerry STEVE [facility] 08-04-2022 11:15-0400 Heart rate 115 /min Jerry STEVE [facility] 08-04-2022 11:15-0400 Height/Length Percentile 60.94 Jerry STEVE [facility] Comment on above: Result Comment: ^~:![facility] 08-04-2022 11:15-0400 Height/Length Z-Score 0.28 Jerry STEVE [facility] Comment on above: Result Comment: [facility] 08-04-2022 11:15-0400 Mean blood pressure 80 mm[Hg] Jerry STEVE [facility] 08-04-2022 11:15-0400 Respiratory rate 16 /min Jerry STEVE [facility] 08-04-2022 11:15-0400 Systolic blood pressure 124 mm[Hg] Jerry STEVE [facility] 08-04-2022 11:15-0400 weight 1.75 Jerry STEVE [facility] Comment on above: Result Comment: ^~:!ZScore [facility] 08-04-2022 11:15-0400 Weight Percentile 95.98 % Jerry STEVE [facility] Comment on above: Result Comment: ^~:!Percentile Source [facility] 01-18-2022 14:00-0500 Body temperature 98.6 [degF] Ender Garfield [facility] 01-18-2022 14:00-0500 Diastolic blood pressure 60 mm[Hg] Ender Garfield [facility] 01-18-2022 14:00-0500 Heart rate 73 /min Ender Garfield [facility] 01-18-2022 14:00-0500 Mean blood pressure 78 mm[Hg] Ender Garfield [facility] 01-18-2022 14:00-0500 Respiratory rate 17 /min Ender Garfield [facility] 01-18-2022 14:00-0500 SaO2% (BldA) [Mass fraction] 100 % Ender Garfield [facility] 01-18-2022 14:00-0500 Systolic blood pressure 115 mm[Hg] Ender Garfield [facility] 01-18-2022 04:00-0500 Body temperature 98.24 [degF] Ender Garfield [facility] 01-18-2022 04:00-0500 Diastolic blood pressure 65 mm[Hg] Ender Garfield [facility] 01-18-2022 04:00-0500 Heart rate 68 /min Ender Garfield [facility] 01-18-2022 04:00-0500 Mean blood pressure 82 mm[Hg] Ender Merrill [facility] 01-18-2022 04:00-0500 Respiratory rate 18 /min Ender Merrill [facility] 01-18-2022 04:00-0500 SaO2% (BldA) [Mass fraction] 98 % Ender Merrill [facility] 01-18-2022 03:00-0500 Diastolic blood pressure 77 mm[Hg] Ender Merrill [facility] 01-18-2022 03:00-0500 Heart rate 63 /min Ender Merrill [facility] 01-18-2022 03:00-0500 Mean blood pressure 91 mm[Hg] Ender Merrill [facility] 01-18-2022 03:00-0500 SaO2% (BldA) [Mass fraction] 97 % Ender Merrill [facility] 01-18-2022 03:00-0500 Systolic blood pressure 120 mm[Hg] Ender Merrill [facility] 01-18-2022 01:11-0500 bodymassindex 1.29 Ender Merrill [facility] Comment on above: Result Comment: ^~:!ZScore Source [place] [place] 01-18-2022 01:11-0500 Heart rate 76 /min Ender Merrill [facility] 01-18-2022 01:11-0500 Height/Length Percentile 61.95 Ender Merrill [facility] Comment on above: Result Comment: ^~:!Percentile Source -[facility] 01-18-2022 01:11-0500 Height/Length Z-Score 0.30 Ender Merrill [facility] Comment on above: Result Comment: ^~:![facility] 01-18-2022 01:11-0500 weight 1.36 Ender Merrill [facility] Comment on above: Result Comment: [facility] 01-18-2022 01:11-0500 Weight Percentile 91.35 % Ender Merrill [facility] Comment on above: Result Comment: ^~:!Percentile [facility] 01-05-2022 11:30-0500 Diastolic blood pressure 72 mm[Hg] Ender Merrill [facility] 01-05-2022 11:30-0500 Heart rate 67 /min Ender Merrill [facility] 01-05-2022 11:30-0500 Mean blood pressure 82 mm[Hg] Ender Merrill [facility] 01-05-2022 11:30-0500 Respiratory rate 18 /min Endersheng Merrill [facility] 01-05-2022 11:30-0500 SaO2% (BldA) [Mass fraction] 100 % Endersheng Merrill [facility] 01-05-2022 11:30-0500 Systolic blood pressure 103 mm[Hg] Ender Garfield [facility] 01-05-2022 11:00-0500 Diastolic blood pressure 44 mm[Hg] Ender Merrill [facility] 01-05-2022 11:00-0500 Heart rate 65 /min Ender Grafield [facility] 01-05-2022 11:00-0500 Systolic blood pressure 94 mm[Hg] Ender Merrill [facility] 01-05-2022 10:46-0500 SaO2% (BldA) [Mass fraction] 99 % Ender Garfield [facility] 01-05-2022 10:30-0500 Diastolic blood pressure 53 mm[Hg] Ender Garfield [facility] 01-05-2022 10:30-0500 Heart rate 66 /min Ender Garfield [facility] 01-05-2022 10:30-0500 Respiratory rate 18 /min Ender Garfield [facility] 01-05-2022 10:30-0500 Systolic blood pressure 100 mm[Hg] Ender Garfield [facility] 01-05-2022 10:17-0500 Hourly Rounding Ender Garfield [facility] 01-05-2022 10:17-0500 Promise to Return Ender Garfield [facility] 01-05-2022 10:16-0500 Blood Pressure Location Ender Garfield [facility] 01-05-2022 10:16-0500 Mean blood pressure 68 mm[Hg] Ender Garfield [facility] 01-05-2022 09:19-0500 Blood Pressure Location Ender Garfield [facility] 01-05-2022 09:19-0500 Mean blood pressure 71 mm[Hg] Ender Garfield [facility] 01-05-2022 09:10-0500 Hourly Rounding Ender Garfield [facility] 01-05-2022 09:10-0500 Promise to Return Ender Garfield [facility] 01-05-2022 08:40-0500 Hourly Rounding Ender Garfield [facility] 01-05-2022 08:40-0500 Promise to Return Ender Merrill [facility] 01-05-2022 08:13-0500 Blood Pressure Location Ender Merrill [facility] 01-05-2022 07:52-0500 Body temperature 97.88 [degF] Ender Merrill [facility] 01-05-2022 07:52-0500 bodymassindex 1.28 Ender Merrlil [facility] Comment on above: Result Comment: ^~:![facility] 01-05-2022 07:52-0500 Heart rate 73 /min Ender Merrill [facility] 01-05-2022 07:52-0500 Height/Length Percentile 61.44 % Ender Merrill [facility] Comment on above: Result Comment: ^~:!Percentile Source -[facility] 01-05-2022 07:52-0500 Height/Length Z-Score 0.29 Ender Merrill [facility] Comment on above: Result Comment: ^~:![facility] 01-05-2022 07:52-0500 weight 1.35 Ender Merrill [facility] Comment on above: Result Comment: ^~:![facility] [facility] 01-05-2022 07:52-0500 Weight Percentile 91.20 % Ender Merrill [facility] Comment on above: Result Comment: ^~:!Percentile Source -[facility] 01-02-2022 14:15-0500 Diastolic blood pressure 50 mm[Hg] Steven Alatorre [facility] 01-02-2022 14:15-0500 Heart rate 65 /min Steven Celi [facility] 01-02-2022 14:15-0500 Mean blood pressure 66 mm[Hg] Steven Celi [facility] 01-02-2022 14:15-0500 Respiratory rate 16 /min Steven Quiroze [facility] 01-02-2022 14:15-0500 SaO2% (BldA) [Mass fraction] 100 % Steven Celi [facility] 01-02-2022 14:15-0500 Systolic blood pressure 99 mm[Hg] Steven Celi [facility] 01-02-2022 12:39-0500 Body temperature 97.88 [degF] Steven Quiroze [facility] 01-02-2022 12:39-0500 Diastolic blood pressure 75 mm[Hg] Steven Celi [facility] 01-02-2022 12:39-0500 Heart rate 61 /min Steven Celi [facility] 01-02-2022 12:39-0500 Respiratory rate 16 /min Steven Quiroze [facility] 01-02-2022 12:39-0500 SaO2% (BldA) [Mass fraction] 99 % Steven Celi [facility] 01-02-2022 12:39-0500 Systolic blood pressure 147 mm[Hg] Steven Celi [facility] 01-02-2022 12:39-0500 weight 1.41 Steven Celi [facility] Comment on above: Result Comment: ^~:!ZScore [facility] [place] 01-02-2022 12:39-0500 Weight Percentile 92.03 % Steven Quiroze [facility] Comment on above: Result Comment: ^~:!Percentile Source -[facility] 10-16-2021 21:35-0400 Nursing Progress Note Reason Other: discharge instructions given. pt verbalized understanding. [facility] 10-16-2021 20:12-0400 Body temperature 98.42 [degF] [facility] 10-16-2021 20:12-0400 Diastolic blood pressure 77 mm[Hg] [facility] 10-16-2021 20:12-0400 Heart rate 69 /min [facility] 10-16-2021 20:12-0400 Respiratory rate 18 /min [facility] 10-16-2021 20:12-0400 SaO2% (BldA) [Mass fraction] 98 % [facility] 10-16-2021 20:12-0400 Systolic blood pressure 113 mm[Hg] [facility] 09-14-2021 08:08-0400 Body temperature 98.42 [degF] Ender Merrill [facility] 09-14-2021 08:08-0400 Diastolic blood pressure 82 mm[Hg] Ender Merrill [facility] 09-14-2021 08:08-0400 Heart rate 71 /min Ender Merrill [facility] 09-14-2021 08:08-0400 Respiratory rate 18 /min Ender Merrill [facility] 09-14-2021 08:08-0400 SaO2% (BldA) [Mass fraction] 100 % Ender Merrill [facility] 09-14-2021 08:08-0400 Systolic blood pressure 127 mm[Hg] Ender Merrill [facility] 05-05-2022 18:18-0400 Hourly Rounding Ras Miller [facility] Comment on above: Result Comment: Pt up in room getting re warren for discharge; no other needs noted. 06-09-2021 17:04-0400 Hourly Rounding Ras Miller [facility] Comment on above: Result Comment: Pt visiting with friend; no other needs noted. 06-09-2021 16:20-0400 Blood Pressure Location Ras Miller [facility] 06-09-2021 16:20-0400 Body temperature 97.52 [degF] Ras Miller [facility] 06-09-2021 16:20-0400 Diastolic blood pressure 68 mm[Hg] Ras Miller [facility] 06-09-2021 16:20-0400 Heart rate 82 /min Ras Miller [facility] 06-09-2021 16:20-0400 Hourly Rounding Ras Miller [facility] Comment on above: Result Comment: Mom holding infant; no n eeds noted. 06-09-2021 16:20-0400 Mean blood pressure 89 mm[Hg] Ras Miller [facility] 06-09-2021 16:20-0400 Respiratory rate 18 /min Ras Miller [facility] 06-09-2021 16:20-0400 Systolic blood pressure 132 mm[Hg] Ras Miller [facility] 06-09-2021 07:15-0400 Blood Pressure Location Ras Miller [facility] 06-09-2021 07:15-0400 Body temperature 98.78 [degF] Ras Miller [facility] 06-09-2021 07:15-0400 Diastolic blood pressure 65 mm[Hg] Ras Miller [facility] 06-09-2021 07:15-0400 Heart rate 84 /min Ras Miller [facility] 06-09-2021 07:15-0400 Mean blood pressure 84 mm[Hg] Ras Miller [facility] 06-09-2021 07:15-0400 Respiratory rate 20 /min Ras Miller [facility] 06-09-2021 07:15-0400 Systolic blood pressure 123 mm[Hg] Ras Miller [facility] 06-08-2021 20:35-0400 Body temperature 97.88 [degF] Ras Miller [facility] 06-08-2021 20:35-0400 Diastolic blood pressure 75 mm[Hg] Ras Miller [facility] 06-08-2021 20:35-0400 Heart rate 77 /min Ras Miller [facility] 06-08-2021 20:35-0400 Mean blood pressure 90 mm[Hg] Ras Miller [facility] 06-08-2021 20:35-0400 SaO2% (BldA) [Mass fraction] 97 % Ras Miller [facility] 06-08-2021 20:35-0400 Systolic blood pressure 121 mm[Hg] Ras Miller [facility] 06-08-2021 20:30-0400 Blood Pressure Location Ras Miller [facility] 06-08-2021 20:30-0400 Respiratory rate 18 /min Ras Miller [facility] 06-08-2021 18:30-0400 Promise to Return Ras Miller [facility] 06-08-2021 17:10-0400 Promise to Return Ras Miller [facility] 06-08-2021 16:45-0400 Promise to Return Ras Miller [facility] 06-08-2021 08:00-0400 Mean blood pressure 84 mm[Hg] Ras Miller [facility] 06-07-2021 23:30-0400 SaO2% (BldA) [Mass fraction] 99 % Ras Miller [facility] 06-07-2021 07:22-0400 Heart rate 72 /min Ras Miller [facility] Encounters Encounter Date Encounter Type Care Provider Facility Start: 05-09-2024 End: 05-09-2024 Office outpatient visit 5 minutes [facility] Steve Nurse [facility] Comment on above: GA: 17w5d Start: 05-09-2024 End: 05-09-2024 ambulatory EDUARDO BUTLER Not Available Start: 04-01-2024 End: 04-01-2024 ambulatory John Paul Lovell MD Work Phone: [facility] Work Phone: Start: 04-01-2024 End: 04-01-2024 Patient encounter procedure John Paul Lovell MD Work Phone: [facility] Work Phone: Start: 01-09-2024 End: 01-09-2024 Lab Drop off Ras Miller [facility] Start: 01-02-2024 ambulatory Wil Brooks acility:[facility] Start: 01-02-2024 Registered Recurring John Paul Lovell MD Work Phone: [facility] Start: 10-17-2023 End: 10-17-2023 Telephone encounter Mak Jordan LOADER HELPER Work Phone: [facility] Start: 10-16-2023 End: 10-16-2023 Bamboo flowsheet Mak Jordan LOADER HELPER Work Phone: [facility] Start: 10-16-2023 End: 10-16-2023 Bamboo flowsheet Mak Jordan LOADER HELPER Work Phone: [facility] Start: 10-16-2023 End: 10-16-2023 Initial preventive medicine new pt age 18-39yrs Mak Jordan LOADER HELPER Work Phone: [facility] Comment on above: Encounter for medica l examination to establish care (Primary Dx); Bipolar depression (CMS/HCC); Anxiety; Attention deficit hyperactivity disorder (ADHD), combined type (CMS/HCC); PTSD (post-traumatic stress disorder) (CMS/HCC); History of anemia; Screening for heart disease; Wheezing; COVID-19; Skin lesion of left arm Start: 10-16-2023 End: 10-16-2023 Patient encounter status Mak Jordan LOADER HELPER Work Phone: [facility] Start: 10-16-2023 End: 10-16-2023 ambulatory MAK JORDAN Not Available Start: 09-10-2023 End: 09-12-2023 Evaluation and management of inpatient Magalis Snow Facility:[facility] Start: 09-05-2023 End: 09-05-2023 ambulatory Magalis Snow Facility:[facility] Start: 09-05-2023 End: 09-05-2023 Lab Drop off Magalis Snow [facility] Start: 09-05-2023 End: 09-05-2023 ambulatory MAGALIS SNOW Not Available Start: 08-30-2023 End: 10-07-2023 Pre-admission assessment Magalis Snow [facility] Start: 08-29-2023 End: 08-29-2023 OB Triage Ras Miller [facility] Start: 07-20-2023 End: 08-21-2023 Pre-admission assessment Magalis Snow [facility] Start: 07-19-2023 End: 07-19-2023 ambulatory DO Magalis Snow Facility:[facility] Start: 07-19-2023 End: 07-19-2023 OB Triage Magalis Snow [facility] Start: 07-09-2023 End: 07-09-2023 ambulatory DO Magalis Snow Facility:[facility] Start: 07-09-2023 End: 07-09-2023 Patient encounter procedure Kourtney PIERCE [facility] Start: 07-09-2023 End: 07-09-2023 ambulatory MAGALIS TAYLORRA Not Available Start: 06-18-2023 End: 06-18-2023 ambulatory MAGALIS Andrea HEATHAPRAWIRA Not Available Start: 05-21-2023 End: 05-21-2023 ambulatory MAGALIS Andrea NATAPRAWIRA Not Available Start: 03-20-2023 Bamboo flowsheet Kourtney kolb LOADER HELPER Work Phone: [facility] Start: 03-20-2023 Bamboo flowsheet Kourtney kolb LOADER HELPER Work Phone: [facility] Start: 03-20-2023 End: 03-20-2023 Office outpatient visit 25 minutes Kourtney Pierce [employer]ER HELPER Work Phone: [facility] Comment on above: GA: 12w6d Start: 03-19-2023 Chart abstracting Kourtney Pierce [employer]ADER HELPER Work Phone: [facility] Start: 03-15-2023 End: 03-15-2023 flow sheet Kourtney Pierce LOADER HELPER Work Phone: [facility] Comment on above: GA: 12w1d Start: 02-13-2023 End: 02-13-2023 Emergency department patient visit Steven Alatorre [facility] Start: 01-26-2023 End: 01-26-2023 Emergency department patient visit Steven Alatorre [facility] Start: 01-23-2023 End: 01-23-2023 Emergency department patient visit Steven Alatorre [facility] Start: 01-01-2023 End: 01-01-2023 ambulatory Alon Johnson Facility:[facility] Start: 01-01-2023 End: 01-01-2023 Lab Drop off Alon Johnson [facility] Start: 01-01-2023 End: 01-01-2023 ambulatory Alon Johnson Facility: [place] [facility] Start: 12-07-2022 End: 12-08-2022 Emergency department patient visit Damaris Jean Baptiste [facility] Start: 10-30-2022 End: 10-30-2022 Emergency department patient visit Steven Alatorre [facility] Start: 08-07-2022 End: 08-10-2022 Evaluation and management of inpatient Ras Miller Facility:[facility] Start: 08-07-2022 End: 08-10-2022 Evaluation and management of inpatient Jerry R STEVE [facility] Start: 08-05-2022 End: 09-05-2022 Pre-admission assessment Jerry R STEVE [facility] Start: 08-04-2022 End: 08-04-2022 ambulatory Jerry R STEVE Facility:[facility] [place] [facility] Start: 08-04-2022 End: 08-04-2022 OB Triage Jerry R STEVE [facility] Start: 01-18-2022 End: 01-18-2022 Emergency department patient visit Ender Merrill [facility] Start: 01-05-2022 End: 01-05-2022 Emergency department patient visit Ender Merrill [facility] Start: 01-02-2022 End: 01-02-2022 Emergency department patient visit Steven Alatorre [facility] Start: 10-16-2021 End: 10-16-2021 Emergency department patient visit Ana Lloyd [facility] Start: 09-14-2021 End: 09-14-2021 Emergency department patient visit Ender Merrill [facility] Start: 06-07-2021 End: 06-09-2021 Evaluation and management of inpatient Ras Malina BahenaPaul [facility] Start: 06-02-2021 End: 07-06-2021 Pre-admission assessment Ras Miller [facility] Start: 05-23-2021 End: 05-23-2021 Lab Drop off Ras Miller [facility] Start: 11-01-2020 End: 11-01-2020 ambulatory [facility] Facility:H1 Procedures Date Procedure Procedure Detail Performing Clinician Start: 05-09-2024 End: 05-09-2024 Urnls dip stick/tablet rgnt non-auto w/o micrscp Jerry Wilson DO Work Phone: Start: 03-20-2023 Urnls dip stick/tabl et rgnt non-auto w/o micrscp Kourtney Pierce NP Work Phone: None (qualifier value) Ras Miller Plan of Treatment Date Care Activity Detail Author Start: 10-06-2024 Influenza vaccination Influenz a Vaccine (Season Ended) [facility] Start: 05-26-2024 End: 05-26-2024 Patient encounter procedure 05/26/2024 9:20 AM EDT Routine [facility] [address] [place] [id number] Jerry Wilson, DO [address] [place] [address] [facility] Start: 05-09-2024 End: 05-09-2025 ABO/Rh ABO/Rh Lab Routine Missed menses , unspecified gestational age Expected: 05/09/2024 (Approximate), Expires: 05/09/2025 [facility] Comment on above: Expected: 05/09/2024 (Approximate), Expires: 05/09/2025 Start: 05-09-2024 End: 06-08-2024 Alpha fetoprotein, maternal Alpha fetoprotein, maternal Lab Routine Missed menses , unspecified gestational age Encounter for supervision of normal first in first trimester Expected: 05/09/2024 (Approximate), Expires: 06/08/2024 [facility] Comment on above: Expected: 05/09/2024 (Approximate), Expires: 06/08/2024 Start: 05-09-2024 End: 05-09-2025 Blood type and Indirect antibody screen panel - Blood Type and screen Lab Routine Missed menses , unspecified gestational age Expected: 05/09/2024 (Approximate), Expires: 05/09/2025 [facility] Work Phone: Comment on above: Expected: 05/09/2024 (Approximate), Expires: 05/09/2025 Start: 05-09-2024 End: 05-09-2025 Drugs of abuse panel - Urine by Screen method Rapid drug screen, urine Lab Routine , unspecified gestational age Encounter for supervision of normal first in first trimester Expected: 05/09/2024 (Approximate), Expires: 05/09/2025 [facility] Comment on above: Expected: 05/09/2024 (Approximate), Expires: 05/09/2025 Start: 10-31-2023 End: 10-16-2024 CBC W Auto Differential panel - Blood CBC and differential Lab Routine Anemia, unspecified type Expected: 10/31/2023 (Approximate), Expires: 10/16/2024 [facility] Comment on above: Expected: 10/31/2023 (Approximate), Expires: 10/16/2024 Start: 10-31-2023 End: 10-16-2024 Ferritin [Mass/volume] in Serum or Plasma Ferritin Lab Routine Anemia, unspecified type Expected: 10/31/2023 (Approximate), Expires: 10/16/2024 [facility] Comment on above: Expected: 10/31/2023 (Approximate), Expires: 10/16/2024 Start: 10-31-2023 End: 10-16-2024 Iron and Iron binding capacity panel - Serum or Plasma Iron and TIBC Lab Routine Anemia, unspecified type Expected: 10/31/2023 (Approximate), Expires: 10/16/2024 [facility] Comment on above: Expected: 10/31/2023 (Approximate), Expires: 10/16/2024 Start: 10-31-2023 End: 10-16-2024 VITAMIN B12/FOLATE, SERUM PANEL VITAMIN B12/FOLATE, SERUM PANEL Lab Routine Anemia, unspecified type Expected: 10/31/2023 (Approximate), Expires: 10/16/2024 [facility] Work Phone: Comment on above: Expected: 10/31/2023 (Approximate), Expires: 10/16/2024 Start: 10-24-2023 End: 10-24-2023 ambulatory 10/24/2023 3:30 PM EDT Visit [facility] [address] [address] [phone] Magalis Snow, DO [address] [phone] [facility] Start: 10-22-2023 End: 10-22-2023 Patient encounter procedure 10/22/2023 2:55 PM EDT Office Visit [facility] [address] [place] [phone] Kellee Glynn, MUNICIPAL ENGINEER-CHANNEL REBUILDER [address] [place] [address] [facility] Start: 10-16-2023 End: 10-15-2024 CBC W Auto Differential panel - Blood CBC and differential Lab Routine History of anemia Screening for heart disease Encounter for medical examination to establish care Expected: 10/16/2023 (Approximate), Expires: 10/15/2024 [facility] Comment on above: Expected: 10/16/2023 (Approximate), Expires: 10/15/2024 Start: 10-16-2023 End: 10-15-2024 Comprehensive metabolic 2000 panel - Serum or Plasma Comprehensive metabolic panel Lab Routine History of anemia Screening for heart disease Encounter for medical examination to establish care Expected: 10/16/2023 (Approximate), Expires: 10/15/2024 [facility] Work Phone: Comment on above: Expected: 10/16/2023 (Approximate), Expires: 10/15/2024 Start: 10-16-2023 End: 10-16-2023 Patient encounter procedure 10/16/2023 2:00 PM EDT Office Visit [facility] [address] [place] [phone] Mak Jordan LOADER HELPER [address] [place] [address] Arrived [facility] Comment on above: Arrived Start: 10-07-2023 Influenza vaccination Influenza Vacc ine (#1) [facility] Start: 04-13-2023 End: 03-15-2024 ABO/Rh ABO/Rh Lab Routine Supervision of normal intrauterine in multigravida, first trimester Expected: 04/13/2023 (Approximate), Expires: 03/15/2024 [facility] Work Phone: Comment on above: Expected: 04/13/2023 (Approximate), Expires: 03/15/2024 Start: 04-13-2023 End: 03-15-2024 Antibody screen Antibody screen Lab Routine Supervision of normal intrauterine in multigravida, first trimester Expected: 04/13/2023 (Approximate), Expires: 03/15/2024 [facility] Comment on above: Expected: 04/13/2023 (Approximate), Expires: 03/15/2024 Start: 04-13-2023 End: 03-15-2024 Bacteria identified in Urine by Culture Urine culture Microbiology Routine Supervision of normal intrauterine in multigravida, first trimester Expected: 04/13/2023 (Approximate), Expires: 03/15/2024 [facility] Comment on above: Expected: 04/13/2023 (Approximate), Expires: 03/15/2024 Start: 04-13-2023 End: 03-15-2024 CBC W Auto Differential panel - Blood CBC and differential Lab Routine Supervision of normal intrauterine in multigravida, first trimester Expected: 04/13/2023 (Approximate), Expires: 03/15/2024 [facility] Comment on above: Expected: 04/13/2023 (Approximate), Expires: 03/15/2024 Start: 04-13-2023 End: 03-15-2024 Drugs of abuse panel - Urine by Screen method Rapid drug screen, urine Lab Routine Supervision of normal intrauterine in multigravida, first trimester Expected: 04/13/2023 (Approximate), Expires: 03/15/2024 [facility] Comment on above: Expected: 04/13/2023 (Approximate), Expires: 03/15/2024 Start: 04-13-2023 End: 03-15-2024 Hepatitis B virus surface Ag [Presence] in Serum or Plasma by Immunoassay Hepatitis B surface Ag Lab Routine Supervision of normal intrauterine in multigravida, first trimester Expected: 04/13/2023 (Approximate), Expires: 03/15/2024 [facility] Comment on above: Expected: 04/13/2023 (Approximate), Expires: 03/15/2024 Start: 04-13-2023 End: 03-15-2024 HIV-1/HIV-2 antigen/antibody combination immunoassay HIV-1 and HIV-2 antibodies Lab Routine Supervision of normal intrauterine in multigravida, first trimester Expected: 04/13/2023 (Approximate), Expires: 03/15/2024 [facility] Comment on above: Expected: 04/13/2023 (Approximate), Expires: 03/15/2024 Start: 04-13-2023 End: 03-15-2024 Reagin Ab [Presence] in Serum by RPR RPR Lab Routine Supervision of normal intrauterine in multigravida, first trimester Expected: 04/13/2023 (Approximate), Expires: 03/15/2024 [facility] Comment on above: Expected: 04/13/2023 (Approximate), Expires: 03/15/2024 Start: 03-20-2023 End: 03-20-2023 ambulatory [facility] Comment on above: Arrived Bacteria identified in Urine by Culture Urine culture Microbiology Routine Missed menses Ordered: 05/09/2024 [facility] Comment on above: Ordered: 05/09/2024 CBC W Auto Different ial panel - Blood CBC and differential Lab Routine Missed menses , unspecified gestational age Ordered: 05/09/2024 [facility] Comment on above: Ordered: 05/09/2024 Hemoglobin A1c/Hemoglobin.total in Blood Hemoglobin A1c Lab Routine Missed menses , unspecified gestational age Ordered: 05/09/2024 [facility] Comment on above: Ordered: 05/09/2024 Hepatitis B virus surface Ag [Presence] in Serum or Plasma by Immunoassay Hepatitis B surface antigen Lab Routine Missed menses , unspecified gestational age Ordered: 05/09/2024 [facility] Comment on above: Ordered: 05/09/2024 Hepatitis C virus Ab [Presence] in Serum or Plasma by Immunoassay Hepatitis C antibody Lab Routine Missed menses , unspecified gestational age Ordered: 05/09/2024 [facility] Comment on above: Ordered: 05/09/2024 HIV-1/HIV-2 antigen/antibody combination immunoassay HIV-1 and HIV-2 antibodies Lab Routine Missed menses , unspecified gestational age Ordered: 05/09/2024 [facility] Comment on above: Ordered: 05/09/2024 Reagin Ab [Presence] in Serum by RPR RPR Lab Routine Missed menses , unspecified gestational age Ordered: 05/09/2024 [facility] Comment on above: Ordered: 05/09/2024 Rubella antibody, IgG Rubella an tibody, IgG Lab Routine Missed menses , unspecified gestational age Ordered: 05/09/2024 [facility] Comment on above: Ordered: 05/09/2024 SURESWAB(R), CT/NG T VAGINALIS SURESWAB(R), CT/NG T VAGINALIS Pathology and Cytology Routine care, subsequent , first trimester Ordered: 03/20/2023 [facility] Work Phone: Comment on above: Ordered: 03/20/2023 Immunizations Immunization Date Immunization Notes Care Provider [place] 08-09-2022 tetanus toxoid, reduced diphtheria toxoid, and acellular pertussis vaccine, adsorbed Jerry STEVE [facility] Comment on above: Reason for Medicatio n: Other (see comment) 06-08-2021 tetanus toxoid, reduced diphtheria toxoid, and acellular pertussis vaccine, adsorbed; Translations: [Boostrix (Tdap)] Ras Miller [facility] Comment on above: Reason for Medicatio n: Other (see comment) 10-28-2020 SARS-CoV-2 (COVID-19 ) mRNA BNT-162b2 [employer] Alon Johnson [facility] Comment on above: Result Comment: 2022: TPVAL 10-07-2020 SARS-CoV-2 (COVID-19 ) mRNA BNT-162b2 vax Alon Johnson [facility] Comment on above: Result Comment: 2022: TPVAL 09-21-2016 hepatitis A vaccine, adult dosage Ras Miller [facility] 09-21-2016 HPV, unspecified formulation Ras Miller [facility] 09-21-2016 meningococcal ACWY vaccine, unspecified formulation Ras Paul [facility] 09-21-2016 tetanus toxoid, reduced diphtheria toxoid, and acellular pertussis vaccine, adsorbed Ras Miller [facility] 06-26-2008 diphtheria, tetanus toxoids and acellular pertussis vaccine Ras Miller [facility] 06-26-2008 measles, mumps and rubella virus vaccine Ras Miller [facility] 06-26-2008 poliovirus vaccine, unspecified formulation Ras Miller [facility] 06-26-2008 varicella virus vaccine Ras Miller [facility] 10-02-2005 diphtheria, tetanus toxoids and acellular pertussis vaccine Ras Miller [facility] 10-02-2005 haemophilus influenz ae type b vaccine, HbOC conjugate Ras Miller [facility] 10-02-2005 hepatitis B vaccine, adult dosage Ras Miller [facility] 10-02-2005 measles, mumps and rubella virus vaccine Ras Miller [facility] 10-02-2005 poliovirus vaccine, unspecified formulation Ras Miller [facility] 10-02-2005 varicella virus vaccine Ras Miller [facility] 2004 diphtheria, tetanus toxoids and acellular pertussis vaccine Ras Miller [facility] 2004 haemophilus influenz ae type b vaccine, HbOC conjugate Ras Miller [facility] 2004 hepatitis B vaccine, adult dosage Ras Miller [facility] 2004 pneumococcal conjuga te vaccine, 13 valent Ras Miller [facility] 2004 poliovirus vaccine, unspecified formulation Ras Miller [facility] 2004 diphtheria, tetanus toxoids and acellular pertussis vaccine Ras Miller [facility] 2004 haemophilus influenz ae type b vaccine, HbOC conjugate Ras Miller [facility] 2004 hepatitis B vaccine, adult dosage Ras Miller [facility] 2004 pneumococcal conjuga te vaccine, 13 valent Ras Miller [facility] 2004 poliovirus vaccine, unspecified formulation Ras Paul [facility] NEGATED: Highlighted row has not occurred!01-01-2023 influenza virus vaccine, unspecified formulation Alon Johnson [facility] Payers Date Payer Category Payer Self-pay 2022 Medicaid [id number] 2022 Medicaid [id number] 2004 Unknown [id number] 2.16.8 40.1.572352.3.579.2.727 2004 Unknown [id number] 2.16.8 40.1.890950.3.579.2.727 2004 Unknown [id number] 2.16.8 40.1.075623.3.579.2.727 2004 Unknown [id number] 2.16.8 40.1.890573.3.579.2.72 2004 Unknown [id number] 2.16.8 40.1.639348.3.579.2.727 2004 Unknown [id number] 2.16.8 40.1.816469.3.579.2.727 2004 Unknown [id number] 2.16.8 40.1.717496.3.579.2.727 2004 Unknown [id number] 2.16.8 40.1.586559.3.579.2.7 2004 Unknown [id number] 2.16.8 40.1.538336.3.579.2.727 2004 Unknown [id number] 2.16.8 40.1.653821.3.579.2.727 2004 Unknown [id number] 2.16.8 40.1.881709.3.579.2.727 2004 Unknown [id number] 2.16.8 40.1.131230.3.579.2.727 2004 Unknown [id number] 2.16.8 40.1.022110.3.579.2.727 2004 Unknown [id number] 2.16.8 40.1.228333.3.579.2.727 2004 Unknown [id number] 2.16.8 40.1.950776.3.579.2.727 2004 Unknown [id number] 2.16.8 40.1.952331.3.579.2.727 2004 Unknown [id number] 2.16.8 40.1.637126.3.579.2.727 2004 Unknown [id number] 2.16.8 40.1.470350.3.579.2.727 2004 Unknown [id number] 2.16.84 0.1.361967.3.579.2.1259 2004 Unknown [id number] 2.16.84 0.1.359349.3.579.2.1259 2004 Unknown [id number] 2.16.84 0.1.672556.3.579.2.1259 2004 Unknown [id number] 2.16.84 0.1.913475.3.579.2.1259 2004 Unknown [id number] 2.16.84 0.1.082427.3.579.2.1259 2004 Unknown [id number] 2.16.84 0.1.513238.3.579.2.1259 2004 Unknown [id number] 2.16.84 0.1.705443.3.579.2.1259 2004 Unknown [id number] 2.16.84 0.1.378923.3.579.2.1259 2004 Unknown [id number] 2.16.84 0.1.147190.3.579.2.1259 1978 Unknown [id number] 2.16.84 0.1.127528.3.579.2.593 1959 Unknown [id number] Unknown [id number] Social History Date Type Detail Facility Tobacco Never smoker [facility] Comment on above: denies Start: 03-15-2023 End: 10-16-2023 Sex Assigned At Female [facility] Tobacco smoking status No Smokin g Status Entered [facility] Start: 01-01-2023 End: 03-15-2023 Tobacco smoking status Never smoked tobacco (finding) [facility] Comment on above: smokers in home Tobacco smoking status [facility] Comment on above: smokers in home Start: 03-15-2023 Tobacco use and exposure Smokeless tobacco non-user [facility] Start: 03-15-2023 End: 05-09-2024 Alcohol intake Ex-drinker (finding) [facility] Start: 03-15-2023 End: 10-16-2023 History of Social function [facility] Within the last year , have you been afraid of your partner or ex-partner? No [facility] Are you now , , , , never or living with a partner? Living with partner [facility] How often to you hav e a drink containing alcohol? Never [facility] Do you feel stress - tense, restless, nervous, or anxious, or unable to sleep at night because your mind is troubled all the time - these days [OSQ] Only a little [facility] (I/We) worried wheth er (my/our) food would run out before (I/we) got money to buy more. Never true [facility] Start: 03-15-2023 Education 13 [facility] Start: 12-21-2022 [facility] Start: 2004 Sex Assigned At Not on file [facility] Work Phone: Start: 04-01-2024 Sex Female (finding) [facility] Start: 2005 Sex Assigned At Female [facility] Functional Status Date Assessment Result Facility 09-10-2023 Functional Status No [facility] 08-29-2023 Functional Status N/A [facility] 07-19-2023 Functional Status N/A [facility] 02-13-2023 Functional Status N/A [facility] 01-26-2023 Functional Status N/A [facility] 01-23-2023 Functional Status N/A [facility] 12-07-2022 Functional Status N/A [facility] 10-30-2022 Functional Status N/A [facility] 08-07-2022 Functional Status N/A [facility] 08-04-2022 Functional Status N/A [facility] 01-18-2022 Functional Status N/A [facility] 01-05-2022 Functional Status N/A [facility] 01-02-2022 Functional Status N/A [facility] 10-16-2021 Functional Status N/A [facility] 09-14-2021 Functional Status N/A [facility] Clinical Notes 05-23-2021 to 05-09-2024 Priscilla Ohara LPN - 05/09/2024 9:30 AM Maxwell Ohara LPN - 05/09/2024 9:30 AM EDTTelephone Encounter - Mak Jordan NP - 10/17/2023 11:40 AM MESERETTMak Jordan NP - 10/16/2023 2:00 PM EDT Note Date & Type Note Facility 05-09-2024 History of Present illness Narrative Reason for Appointment: Patient ID: Jordin Tyler is a 19 y.o. female who presents for Amenorrhea Patient presents today for a Nurse OB Intake appointment. Patient is Unknown with a Estimated Date of Delivery: None noted. OB History Para Term AB Living 4 3 3 0 3 SAB IAB Ectopic Multiple Live Births 3 # Outcome Date GA Lbr Martín/2nd Weight Sex Type Anes PTL Lv 4 Current 3 Term 09/11/23 39w5d 6 lb 9 oz F Vag-Spont CHANCE 2 Term 08/08/22 37w4d 6 lb 1 oz F Vag-Spont EPI N CHANCE 1 Term 06/07/21 40w0d 7 lb 14 oz F Vag-Spont EPI N CHANCE Current Medications: has a current medication list which includes the following prescription(s): albuterol hfa and vitamins. Medical History: Active Ambulatory Problems Diagnosis Date Noted No Active Ambulatory Problems Resolved Ambulatory Problems Diagnosis Date Noted No Resolved Ambulatory Problems Past Medical History: Diagnosis Date Anemia Chlamydia Family History Problem Relation Name Age of Onset Lung cancer Father 52 mets to brain Social History Tobacco Use Smoking status: Never Smokeless tobacco: Never Vaping Use Vaping status: Never Used Substance Use Topics Alcohol use: Not Currently Drug use: Never History reviewed. No pertinent surgical history. No Known Allergies Vitals: Estimated body mass index is 28.67 kg/m as calculated from the following: Height as of 10/16/23: 5' 4 . Weight as of 10/16/23: 167 lb. BP: Patient's last menstrual period was 02/23/2024. Assessment/Plan Diagnoses and all orders for this visit: Missed menses - Type and screen; Future - ABO/Rh; Future - CBC and differential - Hemoglobin A1c - RPR - Rubella antibody, IgG - Hepatitis B surface antigen - Hepatitis C antibody - HIV-1 and HIV-2 antibodies - Urine culture - POCT , urine manually resulted - POCT urinalysis dipstick manually resulted - Alpha fetoprotein, maternal; Future - Vit-Fe Fumarate-FA ( Vitamins) 28-0.8 MG tablet; Take 1 tablet by mouth Daily , unspecified gestational age - Type and screen; Future - ABO/Rh; Future - CBC and differential - Hemoglobin A1c - RPR - Rubella antibody, IgG - Hepatitis B surface antigen - Hepatitis C antibody - HIV-1 and HIV-2 antibodies - Rapid drug screen, urine; Future - Alpha fetoprotein, maternal; Future - Vit-Fe Fumarate-FA ( Vitamins) 28-0.8 MG tablet; Take 1 tablet by mouth Daily Encounter for supervision of normal first in first trimester - Rapid drug screen, urine; Future - Alpha fetoprotein, maternal; Future - Vit-Fe Fumarate-FA ( Vitamins) 28-0.8 MG tablet; Take 1 tablet by mouth Daily Nurse Note: OB Intake: Patient presents today for first OB visit. Patients history has been reviewed in great detail including any potential risks. Patient signed consent forms and patient desires testing in both trimesters. Patient currently has no complaints and has been advised to drink 6-8 glasses of water a day, eat no raw or undercooked meat, and [facility]. Patient has also been advised to not change litter boxes and eat 6 small meals a day. Patient has been consulted regarding the do's and don'ts of . Patient was given labs and all questions and concerns were answered. Patient given MSAFP to have obtained. Patient declined [place]. Prenatals sent into pharmacy. Follow Up: Patient is to return in 2 weeks for routine OB appointment. Follow Up: Patient is to have labs drawn at directed and return to office for initial OB appointment with provider. Patient may call office as needed with any concerns or questions. Nurse Visit Completed by: Priscilla Ohara LPN Reason for Appointment: Patient ID: Jordin Tyler is a 19 y.o. female who presents for Amenorrhea Patient presents today for a Nurse OB Intake appointment. Patient is 17w5d with a Estimated Date of Delivery: 10/12/24 OB History Para Term AB Living 4 3 3 0 3 SAB IAB Ectopic Multiple Live Births 3 # Outcome Date GA Lbr Martín/2nd Weight Sex Type Anes PTL Lv 4 Current 3 Term 09/11/23 39w5d 6 lb 9 oz F Vag-Spont CHANCE 2 Term 08/08/22 37w4d 6 lb 1 oz F Vag-Spont EPI N CHANCE 1 Term 06/07/21 40w0d 7 lb 14 oz F Vag-Spont EPI N CHANCE Current Medications: has a current medication list which includes the following prescription(s): albuterol hfa and vitamins. Medical History: Active Ambulatory Problems Diagnosis Date Noted No Active Ambulatory Problems Resolved Ambulatory Problems Diagnosis Date Noted No Resolved Ambulatory Problems Past Medical History: Diagnosis Date Anemia Chlamydia Family History Problem Relation Name Age of Onset Lung cancer Father 52 mets to brain Social History Tobacco Use Smoking status: Never Smokeless tobacco: Never Vaping Use Vaping status: Never Used Substance Use Topics Alcohol use: Not Currently Drug use: Never History reviewed. No pertinent surgical history. No Known Allergies Vitals: Estimated body mass index is 26.85 kg/m as calculated from the following: Height as of 10/16/23: 5' 4 . Weight as of this encounter: 156 lb 6.4 oz. BP: 112/72 Patient's last menstrual period was 02/23/2024. Assessment/Plan Diagnoses and all orders for this visit: Missed menses - Type and screen; Future - ABO/Rh; Future - CBC and differential - Hemoglobin A1c - RPR - Rubella antibody, IgG - Hepatitis B surface antigen - Hepatitis C antibody - HIV-1 and HIV-2 antibodies - Urine culture - POCT , urine manually resulted - POCT urinalysis dipstick manually resulted - Alpha fetoprotein, maternal; Future - Vit-Fe Fumarate-FA ( Vitamins) 28-0.8 MG tablet; Take 1 tablet by mouth Daily , unspecified gestational age - Type and screen; Future - ABO/Rh; Future - CBC and differential - Hemoglobin A1c - RPR - Rubella antibody, IgG - Hepatitis B surface antigen - Hepatitis C antibody - HIV-1 and HIV-2 antibodies - Rapid drug screen, urine; Future - Alpha fetoprotein, maternal; Future - Vit-Fe Fumarate-FA ( Vitamins) 28-0.8 MG tablet; Take 1 tablet by mouth Daily Encounter for supervision of normal first in first trimester - Rapid drug screen, urine; Future - Alpha fetoprotein, maternal; Future - Vit-Fe Fumarate-FA ( Vitamins) 28-0.8 MG tablet; Take 1 tablet by mouth Daily Nurse Note: OB Intake: Patient presents today for first OB visit. Patients history has been reviewed in great detail including any potential risks. Patient signed consent forms and patient desires testing in both trimesters. Patient currently has no complaints and has been advised to drink 6-8 glasses of water a day, eat no raw or undercooked meat, and [facility] away [facility]. Patient has also been advised to not change litter boxes and eat 6 small meals a day. Patient has been consulted regarding the do's and don'ts of . Patient was given labs and all questions and concerns were answered. Patient given MSAFP to have obtained, Declined [place] and script for sent. Follow Up: Patient is to return in 2 weeks for routine OB appointment. Follow Up: Patient is to have labs drawn at directed and return to office for initial OB appointment with provider. Patient may call office as needed with any concerns or questions. Nurse Visit Completed by: Priscilla Ohara LPN documented in this encounter [facility] 01-09-2024 Evaluation + Plan note Diagnostic Tests PendingChlamydia/Gonococcus, TIM 01/09/24 [facility] 10-17-2023 Telephone encounter Note Abnormal labs [facility] 10-17-2023 Miscellaneous Notes Abnormal labs documented in this encounter [facility] 10-16-2023 History of Present illness Narrative Jordin Tyler is a 18 y.o. female presents with chief complaint of Establish Care and ADHD HPI: HPI Pt here with mother in law and two children. Pt is new to practice and is coming from Dr. Izaguirre. Pt state she has not been to a doctor since she was 15. Pt is currently not any meds. Pt does have history of use with adderall for ADHD. Pt was on 30mg in the morning and 25mg in the afternoon. Pt states she has not taken it in 2 years. Pt states she has noticed a difference, pt is more wound up pt state she talks more when she is on it and moves more when on it. Pt states it would help her calm down and help her focus more. Pt states she is not good at doing 2 things at once. Pt state she use to see psych with bipolar depression. Pt states she never took meds for that although therapist wants to take meds for it. Sofía from [facility] is her therapist and she sees her every 2 weeks. Pt states she started this as a court order that was needed for a year. Pt states it has helped a little. Pt states it has helped with depression and anxiety. Last period was a year ago. Pt is not pt has had 3 births and all living. Pt most recent is 4 weeks old. Pt denies the use of recreational drugs. Pt just had covid- symptoms started 10 days ago. SUBJECTIVE: MEDICATIONS: Current Outpatient Medications Medication Instructions albuterol HFA (ProAir HFA) 90 mcg/act inhaler 2 puffs, Inhalation, Every 4 hours PRN ALLERGIES: No Known Allergies REVIEW OF SYMPTOMS: Review of Systems General: Denies fever, chills, fatigue, MARISCAL or weight loss/gain CV: Denies CP, palpitations or swelling in legs Resp: denies cough, SOB or wheezing GI: Denies abd pain/n/v/c/d Skin: Denies rash Neuro: Denies LH or dizziness OBJECTIVE: Visit Vitals BP 124/78 Pulse 74 Temp 98.2 F Ht 5' 4 Wt 167 lb LMP 12/20/2022 SpO2 98% Unknown BMI 28.67 kg/m OB Status Having periods Smoking Status Never BSA 1.85 m BP Readings from Last 3 Encounters: 10/16/23 124/78 09/05/23 134/62 07/09/23 116/72 Wt Readings from Last 3 Encounters: 10/16/23 167 lb (91%, Z= 1.31)* 09/05/23 186 lb 9.6 oz (96%, Z= 1.72)* 07/09/23 176 lb (94%, Z= 1.53)* * Growth percentiles are based on [facility] [place]Girl[place], 2-20 Years[place] data. Physical Exam General: alert & oriented, NAD Head: NC/AT Oral 3 small red spots the size of a pencil point- pt has had since she was 8 and she said they are spreading and starting to itch. Heart: RRR, No m/r/g, S1S2 nml Lungs: wheezing throughout Abdomen: soft, ND/NT, BS wnl Musculoskeletal: normal gait Extremities: no clubbing, cyanosis or edema Neurological: nonfocal Psych: mood/affect full range ASSESSMENT AND PLAN: Assessment/Plan Diagnoses and all orders for this visit: Encounter for medical examination to establish care - Comprehensive metabolic panel; Future - CBC and differential; Future Bipolar depression ([facility]) - Ambulatory referral to Psychiatry; Future Anxiety - Ambulatory referral to Psychiatry; Future Attention deficit hyperactivity disorder (ADHD), combined type ([facility]) - Ambulatory referral to Psychiatry; Future PTSD (post-traumatic stress disorder) ([facility]) - Ambulatory referral to Psychiatry; Future History of anemia - Comprehensive metabolic panel; Future - CBC and differential; Future Screening for heart disease - Comprehensive metabolic panel; Future - CBC and differential; Future Wheezing - albuterol HFA (ProAir HFA) 90 mcg/act inhaler; Inhale 2 puffs every 4 (four) hours if needed for wheezing COVID-19 - albuterol HFA (ProAir HFA) 90 mcg/act inhaler; Inhale 2 puffs every 4 (four) hours if needed for wheezing Skin lesion of left arm - Ambulatory referral to Dermatology; Future Pt is to continue counseling at [facility]. Blood pressure looks good. documented in this encounter [facility] 09-12-2023 Note Discharge Instructio ns Given Worsening The following Patient Education Materials have been given to the patient: ~~ EducationMaterial [facility] 09-12-2023 Evaluation + Plan note Extrac real from: Title:OB Discharge Author:Magalis Snow DO Date:09/12/23 Anemia affecting , antepartum (O99.019: Anemia complicating , unspecified trimester) Discharge home with iron supplements Encounter for elective induction of labor (Z34.90: Encounter for supervision of normal , unspecified, unspecified trimester) Insufficient care (O09.30: Supervision of with insufficient care, unspecified trimester) (normal spontaneous vaginal delivery) (O80: Encounter for full-term uncomplicated delivery) Doing well. Progressing appropriately in stable condition. Discharge home today. Discharge instructions and prescription discussed To follow up in the office in 6 weeks. Patient to contact the office with any concerns or questions with 39 completed weeks gestation (Z3A.39: 39 weeks gestation of ) Orders: acetaminophen, 975 mg = 3 tab(s), Oral, q8hr, PRN Headache, # 90 tab(s), Refills(s) 1, Pharmacy: [facility], 165.1, cm, 09/10/23 21:47:00 EDT, Height/Length Dosing, 84.5, kg, 09/10/23 21:47:00 EDT, Weight Dosing docusate, 100 mg = 1 cap(s), Oral, BID, # 30 cap(s), Refills(s) 1, Pharmacy: [facility], 165.1, cm, 09/10/23 21:47:00 EDT, Height/Length Dosing, 84.5, kg, 09/10/23 21:47:00 EDT, Weight Dosing ferrous sulfate, 325 mg = 1 tab(s), Oral, BIDWM, # 60 tab(s), Refills(s) 5, Pharmacy: [facility], 165.1, cm, 09/10/23 21:47:00 EDT, Height/Length Dosing, 84.5, kg, 09/10/23 21:47:00 EDT, Weight Dosing HYDROmorphone, 2 mg = 1 tab(s), Tab, Oral, Once PRN Pain 8-10, Routine, Start date 09/11/23 23:48:00 EDT, if pain unrelieved from other pain medications or remedies, 09/11/23 23:48:00 EDT ibuprofen, 600 mg = 1 tab(s), Oral, q6hr, PRN Other (see comment), # 60 tab(s), Refills(s) 1, Pharmacy: [facility], 165.1, cm, 09/10/23 21:47:00 EDT, Height/Length Dosing, 84.5, kg, 09/10/23 21:47:00 EDT, Weight Dosing 07 Surgical Pathology Report CBC w/ Indices Path. Review Pathology Tissue Exam Extracted from: Title:ANES Post-Labor Epidural Author:Ra Trevino Jr, DO Date:09/11/23 Plan Transfer/Discharge: Stable for discharge from anesthetic standpoint.. Extracted from: Title:L&D Epidural note Author:Kellie Casas Jr., DO Date:09/11/23 Impression and Plan Plan Labor epidural at request of patient.. Extracted from: Title:OB Admission H&P Author:Reyes Snow DO Date:09/11/23 Anemia affecting , antepartum (O99.019: Anemia complicating , unspecified trimester) Encounter for elective induction of labor (Z34.90: Encounter for supervision of normal , unspecified, unspecified trimester) Admitted to labor and delivery with routine OB management Status post 50 mcg misoprostol orally x 1 dose Status post artificial amniotomy with clear amniotic fluid Continue expectant management Epidural anesthesia as appropriate Anticipate Insufficient care (O09.30: Supervision of with insufficient care, unspecified trimester) with 39 completed weeks gestation (Z3A.39: 39 weeks gestation of ) Orders: Dextrose 5% in Lactated Ringers intravenous solution 1,000 mL, 1,000 mL, IV, 125 mL/hr, Routine, Start date 09/11/23 1:10:00 EDT, 8 hour(s), Total volume (mL): 1,000, 84.5 kg, May saline lock IV if patient desires mobility, 1.97, m2 misoprostol, 50 microgram = 2 tab(s), Tab, Oral, Once, Stop date 09/10/23 22:00:00 EDT, Routine, Start date 09/10/23 22:00:00 EDT ondansetron, 4 mg = 2 mL, Injection, IV Push, q4hr PRN Nausea, Routine, Start date 09/11/23 1:10:00 EDT, 09/11/23 1:10:00 EDT ABO/Rh ABO/Rh History Check Ambulate Antibody Screen Blood Bank ID# Catheterization for Residual Urine CBC w/ Indices Communication Order Communication Order Communication Order Physician to Nursing Communication Order Physician to Nursing Communication Order Physician to Nursing Consult to Anesthesia Heart Monitor External Heart Monitor External Ice Chips and Sips Notify Provider Notify Provider Notify Provider Notify Provider Vital Signs Perineal Care Peripheral IV Insertion Place in Status Shower Vital Signs [facility] [phone] NoteGetWell Understands Education Yes GetWell Education Video How to Swaddle Safely GetWell Learning Participants [facility]08-07-2024 NoteGetWell Learning Participants Patient GetWell Understands Education Yes GetWell Education Video [facility] NoteGetWell Education Video Caring for Your : Sleeping GetWell Learning Participants Patient GetWell Understands Education [facility]08-07-2024 NoteGetWell Understands Education Yes GetWell Education Video Jaundice in Newborns GetWell Learning Participants [facility]08-07-2024 NoteGetWell Education Video Bathing Your Baby GetWell Learning Participants Patient GetWell Understands Education [facility]08-07-2024 NoteGetWell Understands Education Yes GetWell Education Video Caring for Your : Feeding GetWell Learning Participants [facility]08-07-2024 NoteGetWell Education Video Using a Rubber Bulb to Clear a Baby's Nose GetWell Learning Participants Patient GetWell Understands Education [facility]08-07-2024 NoteGetWell Learning Participants Patient GetWell Education Video Safe Sleep for Babies GetWell Understands Education [facility]08-07-2024 NoteGetWell Education Video Understanding Depression GetWell Understands Education GetWell Learning [facility]08-07-2024 NoteGetWell Learning Participants Patient GetWell Understands Education Yes GetWell Education Video Ways to Keep Your Baby SafeAs[facility]08-07-2024 NoteGetWell Learning Participants Patient GetWell Understands Education Yes GetWell Education Video Car Seat SafetyAshtabula General Hospital08-07-2024 NoteGetWell Understands Education Yes GetWell Education Video Avoiding Infections in the Hospital GetWell Learning Participants [facility]08-07-2024 NoteGetWell Understands Education Yes GetWell Education Video How to Prevent Abusive Head Trauma GetWell Learning Participants [facility]08-07-2024 NoteGetWell Understands Education Yes GetWell Education Video Caring for Your : Umbilical Cord GetWell Learning Participants [facility]08-07-2024 NoteDischarge Instructions Given Worsening The following Patient Education Materials have been given to the patient: ~~ [facility]Material[facility] NoteDischarge Summary Assessment/Plan Anemia affecting , antepartum (O99.019: Anemia complicating , unspecified trimester) Discharge home with iron supplements Encounter for elective induction of labor (Z34.90: Encounter for supervision of normal , unspecified, unspecified trimester) Insufficient care (O09.30: Supervision of with insufficient care, unspecified trimester) (normal spontaneous vaginal delivery) (O80: Encounter for full-term uncomplicated delivery) Doing well. Progressing appropriately in stable condition. Discharge home today. Discharge instructions and prescription discussed To follow up in the office in 6 weeks. Patient to contact the office with any concerns or questions with 39 completed weeks gestation (Z3A.39: 39 weeks gestation of ) Orders: acetaminophen, 975 mg = 3 tab(s), Oral, q8hr, PRN Headache, # 90 tab(s), Refills(s) 1, Pharmacy: [facility], 165.1, cm, 09/10/23 21:47:00 EDT, Height/Length Dosing, 84.5, kg, 09/10/23 21:47:00 EDT, Weight Dosing docusate, 100 mg = 1 cap(s), Oral, BID, # 30 cap(s), Refills(s) 1, Pharmacy: [facility] 1985,165.1, cm, 09/10/23 21:47:00 EDT, Height/Length Dosing, 84.5, kg, 09/10/23 21:47:00 EDT, Weight Dosing ferrous sulfate, 325 mg = 1 tab(s), Oral, BIDWM, # 60 tab(s), Refills(s) 5, Pharmacy: [facility], 165.1, cm, 09/10/23 21:47:00 EDT, Height/Length Dosing, 84.5, kg, 09/10/23 21:47:00 EDT, Weight Dosing HYDROmorphone, 2 mg = 1 tab(s), Tab, Oral, Once PRN Pain 8-10, Routine, Start date 09/11/23 23:48:00 EDT, if pain unrelieved from other pain medications or remedies, 09/11/23 23:48:00 EDT ibuprofen, 600 mg = 1 tab(s), Oral, q6hr, PRN Other (see comment), # 60 tab(s), Refills(s) 1, Pharmacy: [facility], 165.1, cm, 09/10/23 21:47:00 EDT, Height/Length Dosing, 84.5, kg, 09/10/23 21:47:00 EDT, Weight Dosing 07 Surgical Pathology Report CBC w/ Indices Path. Review Pathology Tissue Exam Chief Complaint induction History of Present Illness Patient is a 18-year-old G3, now P3-0-0-3 at 39 weeks and 5 days admitted to labor and delivery on 09/10/2023 for scheduled elective induction of labor. was complicated with insufficient care and anemia in . GBS negative status. At presentation patient was noted to be 2 to3 cm dilated, 50% effaced -3 station and category 1 heart tone. Patient received 1 dose of 50mcg misoprostol orally and progressed to 5 cm cervical dilation, 70% effaced and -2 station. Artificial amniotomy was performed with clear amniotic fluid. Epidural anesthesia was initiated for pain management. Patient then progressed to complete cervical dilation and patient was coached to push. Patient delivered a viable female in OA position with loose nuchal cord x 1 which was reduced at the perineum without difficulty. Infant was weighing 6 pounds 14 ounces, 3124 g with Apgars of 9/9over intact perineum. 3 vessels umbilical cord and intact placenta was delivered spontaneously. FGH598 mL. Patient recovering and stable condition in without any complication. This morning patient reports lochia is decreasing. Patient admits to cramping which is controlled with pain medication.Tolerating regular diet and ambulation without difficulty. Voiding spontaneously without difficulty. Denies any chest pain, shortness of breath, nausea, vomiting, fevers or chills Review of Systems Negative otherwise stated above Physical Exam Vitals & Measurements T: 36.9 ?C(Oral) HR: 65(Monitored) RR: 22 BP: 136/78 SpO2: 98% Alert and Oriented x3 CV RRR Lungs CTAB Abd Soft, U-1 firm Ext no edema, no calf tenderness bilaterally Delivery Details Baby A Delivery Type:Vaginal D-EGA at [id number] weeks 5 days Total Length of Labor:259 minute(s) Delivery Summary Baby A Membrane Status Information ROM Date/Time: 09/11/23 00:55:00 ROM Type: Artificial rupture with amnihook Amniotic Fluid Color/Description: Clear Premature Rupture of Membranes: No Prolonged Rupture of Membranes: No Labor Information Labor Onset Date/Time: 09/11/23 00:55:00 Length of Labor 1st Stage Hrs Ca.98 hour(s) Length of Labor 1st Stage: 239 minute(s) Length of Labor 2nd Stage Hrs Ca.33 hour(s) Length of Labor 2nd Stage: 20 minute(s) Length of Labor 3rd Stage: 8 minute(s) Labor Onset Methods: Induced Induction Methods: Artificial rupture of membranes, Cytotec Precipitous Labor: No Prolonged Labor: No Monitoring FHR Monitoring Method: Doppler ultrasound Delivery Information Delivery Type: Vaginal Delivery of Head Date/Time: 09/11/23 05:14:00 Date/Time of : 09/11/23 05:14:00 Placenta Delivery Date/Time: 09/11/23 05:22:00 Placenta Delivery Method: Spontaneous Placenta to Pathology: Yes Cord Blood Banking: No Delivery Physician: Magalis Snow DO Attending Physician: Magalis Snow DO (more content not included)...[facility] HospitalComment [facility]: Result Comment: Electronically Signed By: Magalis Snow DO\.br\Date and Time Signed: 09/12/23 08:47 [id number] Hospital Discharge instructions Patient Education 09/11/2023 18:38:23 Care After Vaginal Delivery Care After Vaginal Delivery The following information offers guidance about how to care for yourself from the time you deliver your baby to 6 12 weeks after delivery ( period). If you have problems or questions, contact your health care provider for more specific instructions. Follow these instructions at home: Vaginal bleeding It is normal to have vaginal bleeding (lochia) after delivery. Wear a sanitary pad for bleeding anddischarge. ?During the first week after delivery, the amount and appearance of lochia is often similar to a menstrual period. ?Over the next few weeks, it will gradually decrease to a dry, yellow-brown discharge. ?For most women, lochia stops completely by 4 6 weeks after delivery, but it can vary. Change your sanitary pads frequently. Watch for any changes in your flow, such as: ?A sudden increase. ?A change in color. ?Large blood clots. If you pass a blood clot from your vagina, save it and call your health care provider. Do not flush blood clots down the toilet before talking with your health care provider. Do not use tampons or douches until your health care provider approves. If you are not , your period should return 6 8 weeks after delivery. If you are feeding your baby breast milk only, your period may not return until you stop . Perineal care Keep the area between the vagina and the anus (perineum) clean and dry. Use medicated pads and pain-relieving sprays or creams as told. If you had a tear or a surgical cut in the perineum (episiotomy), check the area for signs of infection until you are healed. Check for: ?More redness, swelling, or pain. ?Pus or a bad smell. You may be given a squirt bottle to use instead of wiping to clean the perineum area after you use the bathroom. Pat the area gently to dry it. To relieve pain caused by an episiotomy, a tear, or swollen veins in the anus (hemorrhoids), take awarm sitz bath 2 4 times a day, or as many as told by your health care provider. You can use a bathtub or a basin you put over the toilet as a sitz bath. Breast care In the first few days after delivery, your breasts may feel heavy, full, and uncomfortable (breast engorgement). Milk may also leak from your breasts. Ask your health care provider about ways to helprelieve the discomfort. If you breastfeed: ?Wear a bra that supports your breasts and fits well. Use breast pads to absorb milk that leaks. ?Keep your nipples clean and dry. Apply creams and ointments as told. ?You may have uterine contractions every time you breastfeed for up to several weeks after delivery. This helps your uterus return to its normal size. ?If you have any problems with , tell your health care provider or strategic marketing specialist. If you do not breastfeed: ?Avoid touching your breasts. Do not squeeze out (express) milk. Doing this can make your breasts produce more milk. ?Wear a bra that supports your breasts and fits well. Use cold packs to help with swelling. ?Talk to your health care provider about what gxdf-aop-biufdtz medicines can help with pain. Intimacy and sexuality Ask your health care provider when you can engage in sexual activity. This may depend upon: ?Your risk of infection. ?How fast you are healing. ?Your comfort and desire to engage in sexual activity. You are able to get after delivery, even if you have not had your period. Talk with your health care provider about control (contraception) or family planning. Medicines Take wuar-mch-jxjcdev and prescription medicines only as told by your health care provider. Take an ygqg-tit-iptifzg stool softener to help ease bowel movements as told by your health care provider. If you were prescribed antibiotics, take them as told by your health care provider. Do not stop using the antibiotic even if you start to feel better. Review all previous and current prescriptions to check for the possible transfer into your breast milk. Ask your health care provider or strategic marketing specialist for help if needed. Activity Gradually return to your normal activities as told by your health care provider. Rest as much as possible. Try to nap while your baby is sleeping. Eating and drinking Drink enough fluid to keep your urine pale yellow. To help prevent or relieve constipation, eat high-fiber foods every day. Choose healthy eating to support and healing. Take your vitamins until your health care provider tells you to stop. General recommendations Do not use any products that contain nicotine or tobacco. These products include cigarettes, chewing tobacco, and vaping devices, such as e-cigarettes. These can delay healing. If you need help quitting, ask your health care provider. ?Secondhand smoke exposure is dangerous for your baby. It can increase the risk of illness and sudden syndrome (SIDS). ?Nicotine and other chemicals pass through breast milk to the baby. Alcohol use can be dangerous during the period. Drinking alcohol may impair your judgment and ability to safely care for your baby. ?Not drinking alcohol is the safest option for mothers. Alcohol passes through breastmilk to the baby. Alcohol can be damaging to your baby's development, growth, and sleep patterns. ?If you breastfeed and drink alcohol, wait at least 2 hours after a single drink before feeding your baby. Do not take medicines or drugs that are not prescribed to you, especially if you breastfeed. Visit your health care provider for a checkup within the first 3 6 weeks after delivery. Complete a comprehensive visit no later than 12 weeks after delivery. Keep all follow-up visits. Your health care provider will check your healing after delivery and also check your blood pressure. Where to find more information [place] Department of Health and Human Services Office of Women's Health: womenshealth.gov [employer]: acog.org Contact a health care provider if: You feel unusually sad or worried. Your breasts become red, painful, or hard. You have nausea and vomiting and are unable to eat or drink anything for 24 hours. You have a fever or other signs of infection. You have bleeding that soaks through one pad an hour or you have blood clots the size of an egg or larger. You have a severe headache that does not go away or you have a headache with vision changes. Get help right away if: You have chest pain or difficulty breathing. You have sudden, severe leg pain. You faint or have a seizure. You have thoughts about hurting yourself or your baby. You have any of the following symptoms and you were unable to reach your health care provider: ?A fever or other signs of infection. ?Bleeding that is soaking through one pad an hour or you have blood clots the size of an egg or larger. ?A severe headache that does not go away or you have a headache with vision changes. These symptoms may be an emergency. Get help right away. Call 911. Do not wait to see if the symptoms will go away. Do not drive yourself to the hospital. Get help if you ever feel like you may hurt yourself or others, or have thoughts about taking your own life. Go to your nearest emergency room or: Call 911. Call the [employer] Suicide Prevention Lifeline at or 815. This is open 24 hours a day. Text the Crisis Text Line at 044685. Summary The period of time after you deliver your up to 6 12 weeks after delivery is called the period. If you are , review all previous and current prescriptions to check for possible transfer into breast milk. Keep all follow-up visits. Your health care provider will check your healing after delivery and also check your blood pressure. Contact a health care provider if you feel unusually sad or worried, or if you experience any othercomplications during the period. This information is not intended to replace advice given to you by your health care provider. Make sure you discuss any questions you have with your health care provider. Document Revised: 05/10/2022 Document Reviewed: 04/25/2022 [employer] Patient Education 2022 [employer]. 09/11/2023 05:46:09 Anemia Anemia Anemia is a condition in which there are not enough red blood cells or hemoglobin in the blood. Hemoglobin is a substance in red blood cells that carries oxygen. When you do not have enough red blood cells or hemoglobin (are anemic), your body cannot get enoughoxygen, and your organs may not work properly. As a result, you may feel very tired or have other problems. What are the causes? Common causes of anemia include: Excessive bleeding. Anemia can be caused by excessive bleeding inside or outside the body, including bleeding from the intestines or from heavy menstrual periods in females. Poor nutrition. Long-lasting (chronic) kidney, thyroid, and liver disease. Bone marrow disorders, spleen problems, and blood disorders. Cancer and treatments for cancer. Human immunodeficiency virus (HIV) and acquired immunodeficiency syndrome (AIDS). Infections, medicines, and autoimmune disorders that destroy red blood cells. What are the signs or symptoms? Symptoms of this condition include: Minor weakness. Dizziness. Headache, or difficulties concentrating and sleeping. Heartbeats that feel irregular or faster than normal (palpitations). Shortness of breath, especially with exercise. Pale skin, lips, and nails, or cold hands and feet. Upset stomach (indigestion) and nausea. Symptoms may occur suddenly or develop slowly. If your anemia is mild, you may not have symptoms. How is this diagnosed? This condition is diagnosed based on blood tests, your medical history, and a physical exam. In some cases, a test may be needed in which cells are removed from the soft tissue inside of a bone and looked at under a microscope (bone marrow biopsy). Your health care provider may also check your stool (feces) for blood and may do more testing to look for the cause of your bleeding. Other tests may include: Imaging tests, such as a CT scan or MRI. A procedure to see inside your esophagus and stomach (endoscopy). The esophagus is the part of the body that moves food from your mouth to your stomach. A procedure to see inside your colon and rectum (colonoscopy). How is this treated? Treatment for this condition depends on the cause. If you continue to lose a lot of blood, you may need to be treated at a hospital. Treatment may include: Taking supplements of iron, vitamin B12, or folic acid. Taking a hormone medicine (erythropoietin) that can help to stimulate red blood cell growth. Receiving donated blood through an IV (blood transfusion). This may be needed if you lose a lot of blood. Making changes to your diet. Having surgery to remove your spleen. Follow these instructions at home: Take zxml-dqe-toygaqv and prescription medicines only as told by your health care provider. Take supplements only as told by your health care provider. Follow any diet instructions that you were given by your health care provider. Keep all follow-up visits. Your health care provider will want to recheck your blood tests. Contact a health care provider if: You develop new bleeding anywhere in the body. You are very weak. Get help right away if: You are short of breath. You have pain in your abdomen or chest. You are dizzy or feel faint. You have trouble concentrating. You have bloody stools, black stools, or tarry stools. You vomit repeatedly or you vomit up blood. These symptoms may be an emergency. Get help right away. Call 911. Do not wait to see if the symptoms will go away. Do not drive yourself to the hospital. Summary Anemia is a condition in which you do not have enough red blood cells or enough of a substance in your red blood cells that carries oxygen. Symptoms may occur suddenly or develop slowly. If your anemia is mild, you may not have symptoms. This condition is diagnosed with blood tests, a medical history, and a physical exam. Other tests may be needed. Treatment for this condition depends on the cause of the anemia. This information is not intended to replace advice given to you by your health care provider. Make sure you discuss any questions you have with your health care provider. Document Revised: 04/17/2022 Document Reviewed: 04/17/2022 [employer] Patient Education 2022 [employer]. Follow Up Care 09/10/2023 21:03:40 With:Magalis Snow Address: [address] [place], [place] [id number] Business (1) When:6 weeks [facility] [id number] NoteDischarge Instructions Given Worsening The following Patient Education Materials have been given to the patient: ~~ [facility] NoteProgress Note-Physician Patient: JORDIN TYLER Age: 18 years Sex: Female : 2005 Associated Diagnoses: None Author: Ra Casas Jr., DO Postoperative Information Postoperative disposition: Postoperative disposition: Day 2. Optimetrix number: Optimetrix number [id number]. Anesthetic utilized: Regional: Epidural. Physical Examination Hemodynamically stable. Pain Assessment: Controlled. General: Awake, Alert, Appropriate. Respiratory: Adequate air exchange. Cardiovascular: Stable. Neurological: Normal sensory function. Assessment Anesthetic outcome No post-epidural complications noted.. Review / Management Condition: Stable. Plan Transfer/Discharge: Stable for discharge from anesthetic standpoint..[facility]:Result Comment: Electronically Signed By: Ra Casas Jr., DO\.br\Date and Time Signed: 09/11/23 07:10 [id number] NoteProgress Note-Physician Patient: JORDIN TYLER Age: 18 years Sex: Female : 2005 Associated Diagnoses: None Author: Ra Casas Jr., DO Chief Complaint Intrauterine Health Status Allergies: Allergic Reactions (All) No Known Allergies Canceled/Inactive Reactions (All) No Known Medication Allergies Current medications.Problem list: All Problems 37 weeks gestation of / SNOMED CT 30595403 / Confirmed ADHD (attention deficit hyperactivity disorder), combined type / SNOMED CT 43480440 / Confirmed Age mother conceived under 17 / Patient Care / Confirmed Encounter for supervision of normal first , third trimester / SNOMED CT 442978505 / Confirmed Infection / SNOMED CT 44682394 / Confirmed / SNOMED CT 893264230 / Confirmed Shortness of breath in pediatric patient / SNOMED CT 967061608 / Confirmed Very young maternal age, antepartum / SNOMED CT 579262538 / Confirmed Resolved: Acute gastroenteritis / SNOMED CT 647850312 resolved per patient Resolved: Acute low back pain due to trauma / SNOMED CT 990902566 resolved per patient Resolved: Blurry vision, left eye / SNOMED CT 749348871 resolved per patient Resolved: Chest pain / SNOMED CT 12994823 resolved per patient Resolved: Inspiratory stridor / SNOMED CT 134567451 Resolved: Post-traumatic stress syndrome / SNOMED CT 11634403 resolved per patient. Resolved: / SNOMED CT 117953417 Resolved: / SNOMED CT 936297924 Resolved: Strep pharyngitis / SNOMED CT 78480089 Resolved: Viral gastroenteritis / SNOMED CT 548519733 Resolved: Vomiting / SNOMED CT 4459698870 Canceled: None / SNOMED CT 838205711 Review of Systems Respiratory: Negative. Cardiovascular: Negative. Hematology/Lymphatics: No bruising tendency, No bleeding tendency. Neurologic: Negative. Physical Examination Please refer to Labor floor nursing records for ongoing vital signs, and for intake and output totals while epidural was running. Review / Management Differential diagnosis: Active labor. Results review: Lab results 09/10/2023 21:43 EDT WBC 8.9 E9/L RBC 3.6 E12/L LOW HGB 7.7 gm/dL LOW Hct 24.1 % LOW MCV 67.4 fL LOW MCH 21.4 pg LOW MCHC 31.8 gm/dL RDW 17.0 % HI Platelet 209.0 E9/L MPV 8.8 fL RBC Morph NORMAL Microcyte PRESENT Hypochromasia PRESENT ABO/Rh A POS ABSC Gel Interp Negative 09/10/2023 21:38 EDT Blood Type and Rh A positive Antibody Screen Negative Rubella Immune Hepatitis B Surface Antigen Negative Hepatitis B Test Date 07/09/2023 GBS Status Negative RPR Negative VDRL Negative HIV Status Negative Sexually Transmitted Diseases None . Impression and Plan Plan Labor epidural at request of patient.. Procedure Epidural injection procedure Date/ Time: 09/11/2023 01:28:00. Confirmed: patient, procedure, site, safety procedures followed. Performed by: Ra Casas DO. Informed consent: signed by patient. Indication: Active labor.. Preparation and technique: informed consent obtained (from patient before the procedure), positioned (sitting), sterile preparation of site (patient's back was sterilly prepped and draped) (in usual fashion, with 10 % povidone iodine, draped to expose affected area), local anesthesia (1% lidocaine was applied to the patient's back before the epidural was attempted) (lidocaine without epinephrine,_1_ cc injected subcutaneously), approach (midline), needle (17 ga touhy) (placed via loss of resistance technique, At _L4-L5_ interspace.), aspiration (attempted for blood and CSF), injectant (test dose consisting of 3 ml of 1.5% lodocaine with 1:200,000 epi) (test dose given, Epidural catheter ins erted and secured at a depth of _11_ cm at skin.). Procedure tolerated: well. Complications: Negative heme, negative CSF, and negative response to test dose.. [employer] Epidural Medications Administered: Bolus dose consisted of 7 ml of 0.2% Ropivacaine and 100 mcg of fentanyl (2 ml) at 0142. Then a premixed epidural bag of 0.2% Ropivacaine, and 2 mcg/ml of fentanyl was administered via PCEA with basal rate at 10 ml/hour and demand boluses of 5 ml with a lockout interval of 30 minutes. The PCEA was started at 0145.[facility] HospitalComment on above:Result Comment: Electronically Signed By: Ra Casas Jr., DO.berkley\Date and Time Signed: 09/11/23 07:09 [id number] NoteHistory and Physical Reason for Visit OB Induction Assessment/Plan Anemia affecting , antepartum (O99.019: Anemia complicating , unspecified trimester) Encounter for elective induction of labor (Z34.90: Encounter for supervision of normal , unspecified, unspecified trimester) Admitted to labor and delivery with routine OB management Status post 50 mcg misoprostol orally x 1 dose Status post artificial amniotomy with clear amniotic fluid Continue expectant management Epidural anesthesia as appropriate Anticipate Insufficient care (O09.30: Supervision of with insufficient care, unspecified trimester) with 39 completed weeks gestation (Z3A.39: 39 weeks gestation of ) Orders: Dextrose 5% in Lactated Ringers intravenous solution 1,000 mL, 1,000 mL, IV, 125 mL/hr, Routine, Start date 09/11/23 1:10:00 EDT, 8 hour(s), Total volume (mL): 1,000, 84.5 kg, May saline lock IV if patient desires mobility, 1.97, m2 misoprostol, 50 microgram = 2 tab(s), Tab, Oral, Once, Stop date 09/10/23 22:00:00 EDT, Routine, Start date 09/10/23 22:00:00 EDT ondansetron, 4 mg = 2 mL, Injection, IV Push, q4hr PRN Nausea, Routine, Start date 09/11/23 1:10:00EDT, 09/11/23 1:10:00 EDT ABO/Rh ABO/Rh History Check Ambulate Antibody Screen Blood Bank ID# Catheterization for Residual Urine CBC w/ Indices Communication Order Communication Order Communication Order Physician to Nursing Communication Order Physician to Nursing Communication Order Physician to Nursing Consult to Anesthesia Heart Monitor External Heart Monitor External Ice Chips and Sips Notify Provider Notify Provider Notify Provider Notify Provider Vital Signs Perineal Care Peripheral IV Insertion Place in Status Shower Vital Signs History of Present Illness Patient is a 18-year-old -0-0-2 at 39 weeks and 5 days admitted to labor and delivery on 09/10/2023 for scheduled elective induction of labor. Current has been complicated with insufficient care and anemia in . GBS negative status. At presentation patient was noted tashia 2 to 3 cm dilated, 50% effaced -3 station and category 1 heart tone. Please review office records for more information Review of Systems Negative otherwise stated above Obstetric Exam Baby A FHR Interpretation Category:I Higgins's Score4 Physical Exam Vitals & Measurements T: 36.7 ?C(Oral) HR: 81(Monitored) RR: 18 BP: 127/76 HT: 165.1 cm HT: 165.1 cm WT: 84.5 kg WT: 84.5kg Alert and Oriented x3 CV RRR Lungs CTAB Abd Soft, Uterus non-tender Ext No edema, no calf tenderness bilaterally. Labor Details Baby A Induction Induction Methods:Artificial rupture of membranes, Cytotec FHR Baseline:130 FHR Baseline Description:Normal, 110-160 bpm FHR Baseline Variability:Moderate variability FHR Acceleration Description:Abrupt FHR Interpretation Category:I Activity:Present per patient Membranes Membrane Status:Ruptured ROM Date, Time:09/11/2023 00:55 EDT Amniotic Fluid Color/Description:Clear Uterine Uterine ActivityNormal Uterine Contraction Frequency3-4 min Uterine Contraction Monitoring MethodExternal toco Cervical Cervix Dilation4.5 cm Cervix Ensoolltey75 Station Calculation-3 LMP/EGA/ALISHA Gestational Age (EGA) and ALISHA * Note: EGA calculated as of 09/11/2023 ALISHA: 09/13/2023 EGA*: 39 weeks 5 days Type: Authoritative Method Date: 12/20/2022 Method: Last Menstrual Period (12/20/2022) Confirmation: Confirmed Description: -- Comments: -- Entered by: Ca Borrego RN on 08/29/2023 Other ALISHA Calculations for this : No additional ALISHA calculations have been recorded for this OB History History (0,0,0,2) # 1 Baby 1 Outcome Date: 06/07/2021 Outcome or Result: Vaginal Gest Age: 39 weeks 5 days Outcome: Live Sex: Female Wt: 3572 g Complications: ncX1 Complications: None Martín Labor: 15 hr 47 min # 2 Baby 1 Outcome Date: 08/08/2022 Outcome or Result: Vaginal Gest Age: 37 weeks 4 days Outcome: Live Sex: Female Wt: 2751 g Complications: 37.4 WEEKS GESTATION, MATERNAL CHLAMYDIA Complications: None Martín Labor: 17 hr 47 min Problem List/Past Medical History Ongoing 37 weeks gestation of ADHD (attention deficit hyperactivity disorder), combined type Encounter for supervision of normal first , third trimester Shortness of breath in pediatric patient Very young maternal age, antepartum Historical Acute gastroenteritis Acute low back pain due to trauma Blurry vision, left eye Chest pain Inspiratory stridor Post-traumatic stress syndrome Strep pharyngitis Viral gastroenteritis Vomiting Procedure/Surgical History (more content not included)...[facility] HospitalComment [facility] above:Result Comment: Electronically Signed By: Magalis Snow DO\.br\Date and Time Signed: 09/11/23 01:31 [id number] Evaluation + Plan note Diagnostic Tests Pending * Group B Streptococcus colonization by PCR 09/05/23 [facility] [id number] Hospital Discharge instructions Patient Education 08/29/2023 16:59:58 Dehydration, Adult, Wzrh-za-Abru Dehydration, Adult Dehydration is condition in which there is not enough water or other fluids in the body. This happens when a person loses more fluids than he or she takes in. Important body parts cannot work right without the right amount of fluids. Any loss of fluids from the body can cause dehydration. Dehydration can be mild, worse, or very bad. It should be treated right away to keep it from getting very bad. What are the causes? This condition may be caused by: Conditions that cause loss of water or other fluids, such as: ?Watery poop (diarrhea). ?Vomiting. ?Sweating a lot. ?Peeing (urinating) a lot. Not drinking enough fluids, especially when you: ?Are ill. ?Are doing things that take a lot of energy to do. Other illnesses and conditions, such as fever or infection. Certain medicines, such as medicines that take extra fluid out of the body (diuretics). Lack of safe drinking water. Not being able to get enough water and food. What increases the risk? The following factors may make you more likely to develop this condition: Having a long-term (chronic) illness that has not been treated the right way, such as: ?Diabetes. ?Heart disease. ?Kidney disease. Being 65 years of age or older. Having a disability. Living in a place that is high above the ground or sea (high in altitude). The thinner, dried air causes more fluid loss. Doing exercises that put stress on your body for a long time. What are the signs or symptoms? Symptoms of dehydration depend on how bad it is. Mild or worse dehydration Thirst. Dry lips or dry mouth. Feeling dizzy or light-headed, especially when you stand up from sitting. Muscle cramps. Your body making: ?Dark pee (urine). Pee may be the color of tea. ?Less pee than normal. ?Less tears than normal. Headache. Very bad dehydration Changes in skin. Skin may: ?Be cold to the touch (clammy). ?Be blotchy or pale. ?Not go back to normal right after you lightly pinch it and let it go. Little or no tears, pee, or sweat. Changes in vital signs, such as: ?Fast breathing. ?Low blood pressure. ?Weak pulse. ?Pulse that is more than 100 beats a minute when you are sitting still. Other changes, such as: ?Feeling very thirsty. ?Eyes that look hollow (sunken). ?Cold hands and feet. ?Being mixed up (confused). ?Being very tired (lethargic) or having trouble waking from sleep. ?Short-term weight loss. ?Loss of consciousness. How is this treated? Treatment for this condition depends on how bad it is. Treatment should start right away. Do not wait until your condition gets very bad. Very bad dehydration is an emergency. You will need to go to a hospital. Mild or worse dehydration can be treated at home. You may be asked to: ?Drink more fluids. ?Drink an oral rehydration solution (ORS). This drink helps get the right amounts of fluids and salts and minerals in the blood (electrolytes). Very bad dehydration can be treated: ?With fluids through an IV tube. ?By getting normal levels of salts and minerals in your blood. This is often done by giving salts and minerals through a tube. The tube is passed through your nose and into your stomach. ?By treating the root cause. Follow these instructions at home: Oral rehydration solution If told by your doctor, drink an ORS: Make an ORS. Use instructions on the package. Start by drinking small amounts, about cup (120 mL) every 5 10 minutes. Slowly drink more until you have had the amount that your doctor said to have. Eating and drinking Drink enough clear fluid to keep your pee pale yellow. If you were told to drink an ORS, finish theORS first. Then, start slowly drinking other clear fluids. Drink fluids such as: ?Water. Do not drink only water. Doing that can make the salt (sodium) level in your body get too low. ?Water from ice chips you suck on. ?Fruit juice that you have added water to (diluted). ?Low-calorie sports drinks. Eat foods that have the right amounts of salts and minerals, such as: ?Bananas. ?Oranges. ?Potatoes. ?Tomatoes. ?Spinach. Do not drink alcohol. Avoid: ?Drinks that have a lot of sugar. These include: ?High-calorie sports drinks. ?Fruit juice that you did not add water to. ?Soda. ?Caffeine. ?Foods that are greasy or have a lot of fat or sugar. General instructions Take onmx-tms-vfhrftp and prescription medicines only as told by your doctor. Do not take salt tablets. Doing that can make the salt level in your body get too high. Return to your normal activities as told by your doctor. Ask your doctor what activities are safe for you. Keep all follow-up visits as told by your doctor. This is important. Contact a doctor if: You have pain in your belly (abdomen) and the pain: ?Gets worse. ?Stays in one place. You have a rash. You have a stiff neck. You get angry or annoyed (irritable) more easily than normal. You are more tired or have a harder time waking than normal. You feel: ?Weak or dizzy. ?Very thirsty. Get help right away if you have: Any symptoms of very bad dehydration. Symptoms of vomiting, such as: ?You cannot eat or drink without vomiting. ?Your vomiting gets worse or does not go away. ?Your vomit has blood or green stuff in it. Symptoms that get worse with treatment. A fever. A very bad headache. Problems with peeing or pooping (having a bowel movement), such as: ?Watery poop that gets worse or does not go away. ?Blood in your poop (stool). This may cause poop to look black and tarry. ?Not peeing in 6 8 hours. ?Peeing only a small amount of very dark pee in 6 8 hours. Trouble breathing. These symptoms may be an emergency. Do not wait to see if the symptoms will go away. Get medical help right away. Call your local emergency services (911 in the [place] Do not drive yourself to the hospital. Summary Dehydration is a condition in which there is not enough water or other fluids in the body. This happens when a person loses more fluids than he or she takes in. Treatment for this condition depends on how bad it is. Treatment should be started right away. Do not wait until your condition gets very bad. Drink enough clear fluid to keep your pee pale yellow. If you were told to drink an oral rehydration solution (ORS), finish the ORS first. Then, start slowly drinking other clear fluids. Take nnun-qpn-ywpasfq and prescription medicines only as told by your doctor. Get help right away if you have any symptoms of very bad dehydration. This information is not intended to replace advice given to you by your health care provider. Make sure you discuss any questions you have with your health care provider. Document Revised: 05/31/2022 Document Reviewed: 09/04/2019 [employer] Patient Education 2022 [employer]. Follow Up Care 08/29/2023 14:46:47 With:Magalis Snow Address: [address] [place] [phone] Business (1) When:09/05/2023 13:00:00 Comments:Call for any problems. [facility] 07-24-2024 Evaluation + Plan note Diagnostic Tests Pending * Urine Culture 08/29/23 [facility] [id number] Evaluation + Plan note Diagnostic Tests Pending * Urine Culture 07/19/23 [facility]06-13-2024 NoteThe following Patient Education Materials have been given to the patient: [facility] Discharge instructions Follow Up Care 07/19/2023 06:05:30 With:Magalis Snow Address: [address] [place], [place] [id number]- Business (1) When:07/25/2023 Comments:Call for any problems.Call physician if symptoms worsenReturn for contractions closer, longer, harderReturn for decreased movementReturn if ruptured membranes or vaginal bleeding [facility]06-03-2024 Evaluation + Plan note Diagnostic Tests Pending * Hepatitis B Surface Antigen 07/09/23 * RPR with Conf Rfx 07/09/23 * HIV Screen 4th Generation wRfx 07/09/23 * Urine Culture 07/09/23 [facility]02-13-2024 History of Present illness Narrative* Kourtney Pierce, ANDREA - 03/20/2023 8:20 AM EST Subjective Jordin Tyler is a 18 y.o. at 12w6d with a working estimated date of delivery of 09/26/2023, by Last Menstrual Period who presents for a routine visit. She denies vaginal bleeding. Nausea and vomiting are better. She states her blood sugar and iron drops. She carries sweets with her if her blood sugar drops. Sprained her foot back in Nov when she fell down some stairs at [place]. No fx. Not sure how long she is supposed to wear it, wears it when it hurts- does not follow up with anyone. Objective Physical Exam weight: 157 lb 12.8 oz, Pregravid BMI: 30.20 Expected Total Weight Gain: 11 lb-19 lb BP: 124/76 Heart Rate: 145 Labs Urine dip: Lab Results Component Value Date GLUCOSEUR Negative 03/20/2023 Assessment/Plan Diagnoses and all orders for this visit: care, subsequent , first trimester - SURESWAB(R), CT/NG T VAGINALIS 12 weeks gestation of - POCT URINALYSIS 4 DIPSTICK Continue vitamin. Reminded to have first OB labwork drawn. Follow up in 4 weeks for a routine visit. documented in this [facility]02-08-2024 History of Present illness Narrative* Miryam Ingram LPN - 03/15/2023 8:00 AM EST Subjective Jordin Tyler is a 18 y.o. at 12w1d with a working estimated date of delivery of 09/26/2023, by Last Menstrual Period who presents for an initial visit. This is unplanned. OB History Para Term AB Living 3 2 2 0 2 SAB IAB Ectopic Multiple Live Births 2 # Outcome Date GA Lbr Martín/2nd Weight Sex Delivery Anes PTL Lv 3 Current 2 Term 08/08/22 37w4d 6 lb 1 oz F Vag-Spont EPI N CHANCE 1 Term 06/07/21 40w0d 7 lb 14 oz F Vag-Spont EPI N CHANCE Objective Physical Exam Expected Total Weight Gain: 11 lb-19 lb Pregravid BMI: 30.20 Never had chickenpox but is vaccinated, Bottlefeeding Immunizations: Up to date Labs ordered and printed already had dating US through ER Daily vitamins prescribed - already has script First trimester screening and second trimester screening discussed. Declined genetic and chromosomal testing documented in this [facility]01-09-2024 Hospital Discharge instructions Patient Education 02/13/2023 17:17:08 Hypokalemia Hypokalemia Hypokalemia means that the amount of potassium in the blood is lower than normal. Potassium is a mineral (electrolyte) that helps regulate the amount of fluid in the body. It also stimulates muscle tightening (contraction) and helps nerves work properly. Normally, most of the body's potassium is inside cells, and only a very small amount is in the blood. Because the amount in the blood is so small, minor changes to potassium levels in the blood can be life-threatening. What are the causes? This condition may be caused by: Antibiotic medicine. Diarrhea or vomiting. Taking too much of a medicine that helps you have a bowel movement (laxative)can cause diarrhea and lead to hypokalemia. Chronic kidney disease (CKD). Medicines that help the body get rid of excess fluid (diuretics). Eating disorders, such as anorexia or bulimia. Low magnesium levels in the body. Sweating a lot. What are the signs or symptoms? Symptoms of this condition include: Weakness. Constipation. Fatigue. Muscle cramps. Mental confusion. Skipped heartbeats or irregular heartbeat (palpitations). Tingling or numbness. How is this diagnosed? This condition is diagnosed with a blood test. How is this treated? This condition may be treated by: Taking potassium supplements. Adjusting the medicines that you take. Eating more foods that contain a lot of potassium. If your potassium level is very low, you may need to get potassium through an IV and be monitored in the hospital. Follow these instructions at home: Eating and drinking Eat a healthy diet. A healthy diet includes fresh fruits and vegetables, whole grains, healthy fats, and lean proteins. If told, eat more foods that contain a lot of potassium. These include: ?Nuts, such as peanuts and pistachios. ?Seeds, such as sunflower seeds and pumpkin seeds. ?Peas, lentils, and jay beans. ?Whole grain and bran cereals and breads. ?Fresh fruits and vegetables, such as apricots, avocado, bananas, cantaloupe, kiwi, oranges, tomatoes, asparagus, and potatoes. ?Juices, such as orange, tomato, and prune. ?Lean meats, including fish. ?Milk and milk products, such as yogurt. General instructions Take obbm-vpi-tjfkiji and prescription medicines only as told by your health care provider. This includes vitamins, natural food products, and supplements. Keep all follow-up visits. This is important. Contact a health care provider if: You have weakness that gets worse. You feel your heart pounding or racing. You vomit. You have diarrhea. You have diabetes and you have trouble keeping your blood sugar in your target range. Get help right away if: You have chest pain. You have shortness of breath. You have vomiting or diarrhea that lasts for more than 2 days. You faint. These symptoms may be an emergency. Get help right away. Call 911. Do not wait to see if the symptoms will go away. Do not drive yourself to the hospital. Summary Hypokalemia means that the amount of potassium in the blood is lower than normal. This condition is diagnosed with a blood test. Hypokalemia may be treated by taking potassium supplements, adjusting the medicines that you take, or eating more foods that are high in potassium. If your potassium level is very low, you may need to get potassium through an IV and be monitored in the hospital. This information is not intended to replace advice given to you by your health care provider. Make sure you discuss any questions you have with your health care provider. Document Revised: 10/06/2021 Document Reviewed: 10/06/2021 [employer] Patient Education 2022 [employer]. 02/13/2023 17:17:01 Urinary Tract Infection, Adult, Ljjm-pm-Jpmu Urinary Tract Infection, Adult A urinary tract infection (UTI) is an infection of any part of the urinary tract. The urinary tractincludes: The kidneys. The ureters. The bladder. The urethra. These organs make, store, and get rid of pee (urine) in the body. What are the causes? This infection is caused by germs (bacteria) in your genital area. These germs grow and cause swelling (inflammation) of your urinary tract. What increases the risk? The following factors may make you more likely to develop this condition: Using a small, thin tube (catheter) to drain pee. Not being able to control when you pee or poop (incontinence). Being female. If you are female, these things can increase the risk: ?Using these methods to prevent : ?A medicine that kills sperm (spermicide). ?A device that blocks sperm (diaphragm). ?Having low levels of a female hormone (estrogen). ?Being . You are more likely to develop this condition if: You have genes that add to your risk. You are sexually active. You take antibiotic medicines. You have trouble peeing because of: ?A prostate that is bigger than normal, if you are male. ?A blockage in the part of your body that drains pee from the bladder. ?A kidney stone. ?A nerve condition that affects your bladder. ?Not getting enough to drink. ?Not peeing often enough. You have other conditions, such as: ?Diabetes. ?A weak disease-fighting system (immune system). ?Sickle cell disease. ?Gout. ?Injury of the spine. What are the signs or symptoms? Symptoms of this condition include: Needing to pee right away. Peeing small amounts often. Pain or burning when peeing. Blood in the pee. Pee that smells bad or not like normal. Trouble peeing. Pee that is cloudy. Fluid coming from the vagina, if you are female. Pain in the belly or lower back. Other symptoms include: Vomiting. Not feeling hungry. Feeling mixed up (confused). This may be the first symptom in older adults. Being tired and grouchy (irritable). A fever. Watery poop (diarrhea). How is this treated? Taking antibiotic medicine. Taking other medicines. Drinking enough water. In some cases, you may need to see a specialist. Follow these instructions at home: Medicines Take ggrr-uih-ydjlitb and prescription medicines only as told by your doctor. If you were prescribed an antibiotic medicine, take it as told by your doctor. Do not stop taking it even if you start to feel better. General instructions Make sure you: ?Pee until your bladder is empty. ?Do not hold pee for a long time. ?Empty your bladder after sex. ?Wipe from front to back after peeing or pooping if you are a female. Use each tissue one time whenyou wipe. Drink enough fluid to keep your pee pale yellow. Keep all follow-up visits. Contact a doctor if: You do not get better after 1 2 days. Your symptoms go away and then come back. Get help right away if: You have very bad back pain. You have very bad pain in your lower belly. You have a fever. You have chills. You feeling like you will vomit or you vomit. Summary A urinary tract infection (UTI) is an infection of any part of the urinary tract. This condition is caused by germs in your genital area. There are many risk factors for a UTI. Treatment includes antibiotic medicines. Drink enough fluid to keep your pee pale yellow. This information is not intended to replace advice given to you by your health care provider. Make sure you discuss any questions you have with your health care provider. Document Revised: 09/03/2020 Document Reviewed: 09/03/2020 [employer] Patient Education 2022 [employer]. 02/13/2023 17:16:58 Hyperemesis Gravidarum Hyperemesis Gravidarum Hyperemesis gravidarum is a severe form of nausea and vomiting that happens during . Hyperemesis is worse than morning sickness. It may cause you to have nausea or vomiting all day for many days. It may keep you from eating and drinking enough food and liquids, which can lead to dehydration, malnutrition, and weight loss. Hyperemesis usually occurs during the first half (the first 20 weeks) of . It often goes away once a woman is in her second half of . However, sometimes hyperemesis continues through an entire . What are the causes? The cause of this condition is not known. It may be associated with: Changes in hormones in the body during . Changes in the gastrointestinal system. Genetic or inherited conditions. What are the signs or symptoms? Symptoms of this condition include: Severe nausea and vomiting that does not go away. Problems keeping food down. Weight loss. Loss of body fluid (dehydration). Loss of appetite. You may have no desire to eat or you may not like the food you have previously enjoyed. How is this diagnosed? This condition may be diagnosed based on your medical history, your symptoms, and a physical exam. You may also have other tests, including: Blood tests. Urine tests. Blood pressure tests. Ultrasound to look for problems with the placenta or to check if you are with more than one baby. How is this treated? This condition is managed by controlling symptoms. This may include: Following an eating plan. This can help to lessen nausea and vomiting. Treatments that do not use medicine. These include acupressure bracelets, hypnosis, and eating or drinking foods or fluids that contain daniel, daniel brittanie, or daniel tea. Taking prescription medicine or tiqf-qck-uisiihg medicine as told by your health care provider. Continuing to take vitamins. You may need to change what kind you take and when you take them. Follow your health care provider's instructions about vitamins. An eating plan and medicines are often used together to help control symptoms. If medicines do not help relieve nausea and vomiting, you may need to receive fluids through an IV at the hospital. Follow these instructions at home: To help relieve your symptoms, listen to your body. Everyone is different and has different preferences. Find what works best for you. Here are some things you can try to help relieve your symptoms: Meals and snacks Eat 5 6 small meals daily instead of 3 large meals. Eating small meals and snacks can help you avoid an empty stomach. Before getting out of bed, eat a couple of crackers to avoid moving around on an empty stomach. Eat a protein-rich snack before bed. Examples include cheese and crackers, or a peanut butter sandwich made with 1 slice of whole-wheat bread and 1 tsp (5 g) of peanut butter. Eat and drink slowly. Try eating starchy foods as these are usually tolerated well. Examples include cereal, toast, bread, potatoes, pasta, rice, and pretzels. Eat at least one serving of protein with your meals and snacks. Protein options include lean meats,poultry, seafood, beans, nuts, nut butters, eggs, cheese, and yogurt. Eat or suck on things that have daniel in them. It may help to relieve nausea. Add tsp (0.44 g) ground daniel to hot tea, or choose daniel tea. Fluids It is important to stay hydrated. Try to: Drink small amounts of fluids often. Drink fluids 30 minutes before or after a meal to help lessen the feeling of a full stomach. Drink 100% fruit juice or an electrolyte drink. An electrolyte drink contains sodium, potassium, and chloride. Drink fluids that are cold, clear, and carbonated or sour. These include lemonade, daniel brittanie, lemon salt river soda, ice water, and sparkling water. Things to avoid Avoid the following: Eating foods that trigger your symptoms. These may include spicy foods, coffee, high-fat foods, very sweet foods, and acidic foods. Drinking more than 1 cup of fluid at a time. Skipping meals. Nausea can be more intense on an empty stomach. If you cannot tolerate food, do notforce it. Try sucking on ice chips or other frozen items and make up for missed calories later. Lying down within 2 hours after eating. Being exposed to environmental triggers. These may include food smells, smoky rooms, closed spaces,rooms with strong smells, warm or humid places, overly loud and noisy rooms, and rooms with motion or flickering lights. Try eating meals in a well-ventilated area that is free of strong smells. Making quick and sudden changes in your movement. Taking iron pills and multivitamins that contain iron. If you take prescription iron pills, do not stop taking them unless your health care provider approves. Preparing food. The smell of food can spoil your appetite or trigger nausea. General instructions Gill your teeth or use a mouth rinse after meals. Take hisq-kkv-acxejki and prescription medicines only as told by your health care provider. Follow instructions from your health care provider about eating or drinking restrictions. Talk with your health care provider about starting a supplement of vitamin B6. Continue to take your vitamins as told by your health care provider. If you are having trouble taking your vitamins, talk with your health care provider about other options. Keep all follow-up visits. This is important. Follow-up visits include visits. Contact a health care provider if: You have pain in your abdomen. You have a severe headache. You have vision problems. You are losing weight. You feel weak or dizzy. You cannot eat or drink without vomiting, especially if this goes on for a full day. Get help right away if: You cannot drink fluids without vomiting. You vomit blood. You have constant nausea and vomiting. You are very weak. You faint. You have a fever and your symptoms suddenly get worse. Summary Hyperemesis gravidarum is a severe form of nausea and vomiting that happens during . Making some changes to your eating habits may help relieve nausea and vomiting. This condition may be managed with lifestyle changes and medicines as prescribed by your health care provider. If medicines do not help relieve nausea and vomiting, you may need to receive fluids through an IV at the hospital. This information is not intended to replace advice given to you by your health care provider. Make sure you discuss any questions you have with your health care provider. Document Revised: 08/16/2020 Document Reviewed: 08/16/2020 [employer] Patient Education 2022 [employer] Follow Up Care 02/13/2023 14:16:46 With:Paul CASE, TASHI Bojorquez Address: [address] [place] [id number]- When:2 to 4 days [facility]01-09-2024 Evaluation + Plan note Diagnostic Tests Pending * Urine Culture 02/13/23 [facility]12-22-2023 Hospital Discharge instructions Patient Education 01/26/2023 21:19:18 Morning Sickness Morning Sickness Morning sickness is when a woman feels nauseous during . This nauseous feeling may or may not come with vomiting. It often occurs in the morning, but it can be a problem at any time of day. Morning sickness is most common during the first trimester. In some cases, it may continue throughout . Although morning sickness is unpleasant, it is usually harmless unless the woman develops severe and continual vomiting (hyperemesis gravidarum), a condition that requires more intense treatment. What are the causes? The exact cause of this condition is not known, but it seems to be related to normal hormonal changes that occur in . What increases the risk? You are more likely to develop this condition if: You experienced nausea or vomiting before your . You had morning sickness during a previous . You are with more than one baby, such as twins. What are the signs or symptoms? Symptoms of this condition include: Nausea. Vomiting. How is this diagnosed? This condition is usually diagnosed based on your signs and symptoms. How is this treated? In many cases, treatment is not needed for this condition. Making some changes to what you eat may help to control symptoms. Your health care provider may also prescribe or recommend: Vitamin B6 supplements. Anti-nausea medicines. Daniel. Follow these instructions at home: Medicines Take azmn-pmk-gaabddl and prescription medicines only as told by your health care provider. Do not use any prescription, jaik-zlp-uxqdncj, or herbal medicines for morning sickness without first talking with your health care provider. Take multivitamins before getting . This can prevent or decrease the severity of morning sickness in most women. Eating and drinking Eat a piece of dry toast or crackers before getting out of bed in the morning. Eat 5 or 6 small meals a day. Eat dry and bland foods, such as rice or a baked potato. Foods that are high in carbohydrates are often helpful. Avoid greasy, fatty, and spicy foods. Have someone cook for you if the smell of any food causes nausea and vomiting. If you feel nauseous after taking vitamins, take the vitamins at night or with a snack. Eat a protein snack between meals if you are hungry. Nuts, yogurt, and cheese are good options. Drink fluids throughout the day. Try daniel brittanie made with real daniel, daniel tea made from fresh grated daniel, or daniel candies. General instructions Do not use any products that contain nicotine or tobacco. These products include cigarettes, chewing tobacco, and vaping devices, such as e-cigarettes. If you need help quitting, ask your health careprovider. Get an air purifier to keep the air in your house free of odors. Get plenty of fresh air. Try to avoid odors that trigger your nausea. Consider trying these methods to help relieve symptoms: ?Wearing an acupressure wristband. These wristbands are often worn for seasickness. ?Acupuncture. Contact a health care provider if: Your home remedies are not working and you need medicine. You feel dizzy or light-headed. You are losing weight. Get help right away if: You have persistent and uncontrolled nausea and vomiting. You faint. You have severe pain in your abdomen. Summary Morning sickness is when a woman feels nauseous during . This nauseous feeling may or may not come with vomiting. Morning sickness is most common during the first trimester. It often occurs in the morning, but it can be a problem at any time of day. In many cases, treatment is not needed for this condition. Making some changes to what you eat may help to control symptoms. This information is not intended to replace advice given to you by your health care provider. Make sure you discuss any questions you have with your health care provider. Document Revised: 09/06/2020 Document Reviewed: 08/16/2020 [employer] Patient Education 2022 [employer]. 01/26/2023 21:19:18 Nausea and Vomiting, Adult, Brxn-ch-Bkiw Nausea and Vomiting, Adult Nausea is feeling that you have an upset stomach and that you are about to vomit. Vomiting is when food in your stomach forcefully comes out of your mouth. Vomiting can make you feel weak. If you vomit, or if you are not able to drink enough fluids, you may not have enough water in your body (get dehydrated). If you do not have enough water in your body, you may: Feel tired. Feel thirsty. Have a dry mouth. Have cracked lips. Pee (urinate) less often. Older adults and people with other diseases or a weak body defense system (immune system) are at higher risk for not having enough water in the body. If you feel like you may vomit or you vomit, it is important to follow instructions from your doctor about how to take care of yourself. Follow these instructions at home: Watch your symptoms for any changes. Tell your doctor about them. Eating and drinking Take an ORS (oral rehydration solution). This is a drink that is sold at pharmacies and stores. Drink clear fluids in small amounts as you are able, such as: ?Water. ?Ice chips. ?Fruit juice that has water added (diluted fruit juice). ?Low-calorie sports drinks. Eat bland, gohx-ia-wpefno foods in small amounts as you are able, such as: ?Bananas. ?Applesauce. ?Rice. ?Low-fat (lean) meats. ?[place]. ?Crackers. Avoid drinking fluids that have a lot of sugar or caffeine in them. This includes energy drinks, sports drinks, and soda. Avoid alcohol. Avoid spicy or fatty foods. General instructions Take nazf-fns-vbgtrzr and prescription medicines only as told by your doctor. Drink enough fluid to keep your pee (urine) pale yellow. Wash your hands often with soap and water for at least 20 seconds. If you cannot use soap and water, use hand morning news anchor. Make sure that everyone in your home washes their hands well and often. Rest at home until you feel better. Watch your condition for any changes. Take slow and deep breaths when you feel like you may vomit. Keep all follow-up visits. Contact a doctor if: Your symptoms get worse. You have new symptoms. You have a fever. You cannot drink fluids without vomiting. You feel like you may vomit for more than 2 days. You feel light-headed or dizzy. You have a headache. You have muscle cramps. You have a rash. You have pain while peeing. Get help right away if: You have pain in your chest, neck, arm, or jaw. You feel very weak or you faint. You vomit again and again. You have vomit that is bright red or looks like black coffee grounds. You have bloody or black poop (stools) or poop that looks like tar. You have a very bad headache, a stiff neck, or both. You have very bad pain, cramping, or bloating in your belly (abdomen). You have trouble breathing. You are breathing very quickly. Your heart is beating very quickly. Your skin feels cold and clammy. You feel confused. You have signs of losing too much water in your body, such as: ?Dark pee, very little pee, or no pee. ?Cracked lips. ?Dry mouth. ?Sunken eyes. ?Sleepiness. ?Weakness. These symptoms may be an emergency. Get help right away. Call 911. Do not wait to see if the symptoms will go away. Do not drive yourself to the hospital. Summary Nausea is feeling that you have an upset stomach and that you are about to vomit. Vomiting is when food in your stomach comes out of your mouth. Follow instructions from your doctor about eating and drinking. Take jwrg-qfq-msaejwn and prescription medicines only as told by your doctor. Contact your doctor if your symptoms get worse or you have new symptoms. Keep all follow-up visits. This information is not intended to replace advice given to you by your health care provider. Make sure you discuss any questions you have with your health care provider. Document Revised: 07/29/2021 Document Reviewed: 07/29/2021 [employer] Patient Education 2022 [employer]. Follow Up Care 01/26/2023 19:06:29 With:Ras Miller Address: [address] [id number] [facility] (1) When:01/29/2023 21:05:41 Comments:Follow-up with your primary care provider in 3 to 5 days. If symptoms worsen, do not improve, or new symptoms arise please report back to emergency department for further evaluation. With:[employer] Address:Unknown When:Within 3 Day(s) [facility]12-22-2023 Evaluation + Plan noteExtracted from: Title:ED Note Author:Donavan Lawson PA-C te:01/26/23 Nausea and vomiting during p regnancy (O21.9: Vomiting of , unspecified) Orders: metoclopramide, 10 mg = 2 mL, Injection, IV Push, Once, Stop date 01/26/23 19:21:00 EST, STAT, Start date 01/26/23 19:21:00 EST, 01/26/23:21:00 EST metoclopramide, 5 mg = 1 tab(s), Oral, QID, as needed for nausea, X 7 day(s), # 15 tab(s), Refills(s) 0 Sodium Chloride 0.9% intravenous solution, 1,000 mL, Soln-IV, IV, Once, Stop date 01/26/23 19:21:00 EST, STAT, Start date 01/26/23 19::00 EST, Infuse over 61, minute(s) ABO/Rh Automated Diff Basic Metabolic Panel Beta hCG Quantitative CBC w/ Auto Diff eGFR Extra Blue Tube Extra SST Tube UA With Cult Reflex Urine Culture Diagnostic Tests Pending * Urine Culture 01/26/23 [facility]12-19-2023 Hospital Discharge instructions Patient Education 01/23/2023 17:56:52 Nausea and Vomiting, Adult Nausea and Vomiting, Adult Nausea is the feeling that you have an upset stomach or that you are about to vomit. As nausea getsworse, it can lead to vomiting. Vomiting is when stomach contents forcefully come out of your mouthas a result of nausea. Vomiting can make you feel weak and cause you to become dehydrated. Dehydration can make you feel tired and thirsty, cause you to have a dry mouth, and decrease how often you urinate. Older adults and people with other diseases or a weak disease-fighting system (immune system) are at higher risk for dehydration. It is important to treat your nausea and vomiting as told by your health care provider. Follow these instructions at home: Watch your symptoms for any changes. Tell your health care provider about them. Eating and drinking Take an oral rehydration solution (ORS). This is a drink that is sold at pharmacies and retail stores. Drink clear fluids slowly and in small amounts as you are able. Clear fluids include water, ice chips, low-calorie sports drinks, and fruit juice that has water added (diluted fruit juice). Eat bland, fupb-ye-wlgkmu foods in small amounts as you are able. These foods include bananas, applesauce, rice, lean meats, toast, and crackers. Avoid fluids that contain a lot of sugar or caffeine, such as energy drinks, sports drinks, and soda. Avoid alcohol. Avoid spicy or fatty foods. General instructions Take ugob-yla-mcyvwqw and prescription medicines only as told by your health care provider. Drink enough fluid to keep your urine pale yellow. Wash your hands often using soap and water for at least 20 seconds. If soap and water are not available, use hand morning news anchor. Make sure that everyone in your household washes their hands well and often. Rest at home while you recover. Watch your condition for any changes. Take slow and deep breaths when you feel nauseous. Keep all follow-up visits. This is important. Contact a health care provider if: Your symptoms get worse. You have new symptoms. You have a fever. You cannot drink fluids without vomiting. Your nausea does not go away after 2 days. You feel light-headed or dizzy. You have a headache. You have muscle cramps. You have a rash. You have pain while urinating. Get help right away if: You have pain in your chest, neck, arm, or jaw. You feel extremely weak or you faint. You have persistent vomiting. You have vomit that is bright red or looks like black coffee grounds. You have bloody or black stools (feces) or stools that look like tar. You have a severe headache, a stiff neck, or both. You have severe pain, cramping, or bloating in your abdomen. You have difficulty breathing, or you are breathing very quickly. Your heart is beating very quickly. Your skin feels cold and clammy. You feel confused. You have signs of dehydration, such as: ?Dark urine, very little urine, or no urine. ?Cracked lips. ?Dry mouth. ?Sunken eyes. ?Sleepiness. ?Weakness. These symptoms may be an emergency. Get help right away. Call 911. Do not wait to see if the symptoms will go away. Do not drive yourself to the hospital. Summary Nausea is the feeling that you have an upset stomach or that you are about to vomit. As nausea getsworse, it can lead to vomiting. Vomiting can make you feel weak and cause you to become dehydrated. Follow instructions from your health care provider about eating and drinking to prevent dehydration. Take kjyh-wsn-mnwnonl and prescription medicines only as told by your health care provider. Contact your health care provider if your symptoms get worse, or you have new symptoms. Keep all follow-up visits. This is important. This information is not intended to replace advice given to you by your health care provider. Make sure you discuss any questions you have with your health care provider. Document Revised: 07/29/2021 Document Reviewed: 07/29/2021 [employer] Patient Education 2022 [employer]. Follow Up Care 01/23/2023 11:32:50 With:Ras Miller Address: [address] [place], [place] [address]AL[place] JIMMY, [address] [address] [employer] (1) When:01/26/2023 17:40:04 [facility]12-19-2023 Evaluation + Plan noteExtracted from: Title:ED Note Author:Colby Ayers PA-C te:01/23/23 Nausea/vomiting in (O21.9: Vomiting of , unspecified) Orders: diphenhydrAMINE, 25 mg = 0.5 mL, Injection, IV Push, Once, Stop date 01/23/23 12:19:00 EST, STAT, Start date 01/23/23 12:19:00 EST, 01/23/23 12:19:00 EST multivitamin, , 1 tab(s), Oral, Daily, 30 tab(s), Refill(s) 0 ondansetron, 4 mg = 1 tab(s), Tab-Dis, Oral, Once, Stop date 01/23/23 11:58:00 EST, STAT, Start date 01/23/23 11:58:00 EST, 01/23/23 11:58:00 EST ondansetron, 4 mg = 1 tab(s), Oral, TID, # 15 tab(s), Refills(s) 0 ondansetron, 4 mg = 2 mL, Injection, IV Push, Once, Stop date 01/23/23 12:19:00 EST, STAT, Start date 01/23/23 12:19:00 EST, 01/23/23 12:19:00 EST promethazine, 25 mg = 1 supp, Rectal, q6hr, PRN for nausea/vomiting, # 12 supp, Refills(s) 0 promethazine, 25 mg = 1 tab(s), Tab, Oral, Once, Stop date 01/23/23 14:40:00 EST, STAT, Start date 01/23/23 14:40:00 EST, 01/23/23 14:40:00 EST Sodium Chloride 0.9% intravenous solution, 1,000 mL, Soln-IV, IV, Once, Stop date 01/23/23 11:58:00 EST, STAT, Start date 01/23/23 11:58:00 EST, Infuse over 61, minute(s) Sodium Chloride 0.9% intravenous solution, 1,000 mL, Soln-IV, IV, Once, Stop date 01/23/23 15:31:00 EST, STAT, Start date 01/23/23 15:31:00 EST, Infuse over 61, minute(s) Automated Diff Basic Metabolic Panel Beta hCG Qual Beta hCG Quantitative CBC w/ Auto Diff eGFR Extra Blue Tube Hepatic Function Panel Lipase Level Morphology UA With Cult Reflex US 1st Trimester [facility]11-27-2023 NoteInfectious Disease COVID-19 COVID-19, or coronavirus disease 2019, is an infection that is caused by a new (novel) coronavirus called SARS-CoV-2. COVID-19 can cause many symptoms. In some people, the virus may not cause any symptoms. In others, it may cause mild or severe symptoms. Some people with severe infection develop severe disease. What are the causes? This illness is caused by a virus. The virus may be in the air as tiny specks of fluid (aerosols) or droplets, or it may be on surfaces. You may catch the virus by: ? Breathing in droplets from an infected person. Droplets can be spread by a person breathing, speaking, singing, coughing, or sneezing. ? Touching something, like a table or a doorknob, that has virus on it (is contaminated) and then touching your mouth, nose, or eyes. What increases the risk? Risk for infection: You are more likely to get infected with the COVID-19 virus if: ? You are within 6 ft (1.8 m) of a person with COVID-19 for 15 minutes or longer. ? You are providing care for a person who is infected with COVID-19. ? You are in close personal contact with other people. Close personal contact includes hugging, kissing, or sharing eating or drinking utensils. Risk for serious illness caused by COVID-19: You are more likely to get seriously ill from the COVID-19 virus if: ? You have cancer. ? You have a long-term (chronic) disease, such as: ? Chronic lung disease. This includes pulmonary embolism, chronic obstructive pulmonary disease, and cystic fibrosis. ? Long-term disease that lowers your body's ability to fight infection (immunocompromise). ? Serious cardiac conditions, such as heart failure, coronary artery disease, or cardiomyopathy. ? Diabetes. ? Chronic kidney disease. ? Liver diseases. These include cirrhosis, nonalcoholic fatty liver disease, alcoholic liver disease, or autoimmune hepatitis. ? You have obesity. ? You are or were recently . ? You have sickle cell disease. What are the signs or symptoms? Symptoms of this condition can range from mild to severe. Symptoms may appear any time from 2 to 14days after being exposed to the virus. They include: ? Fever or chills. ? Shortness of breath or trouble breathing. ? Feeling tired or very tired. ? Headaches, body aches, or muscle aches. ? Runny or stuffy nose, sneezing, coughing, or sore throat. ? New loss of taste or smell. This is rare. Some people may also have stomach problems, such as nausea, vomiting, or diarrhea. Other people may not have any symptoms of COVID-19. How is this diagnosed? This condition may be diagnosed by testing samples to check for the COVID-19 virus. The most commontests are the PCR test and the antigen test. Tests may be done in the lab or at home. They include: ? Using a swab to take a sample of fluid from the back of your nose and throat (nasopharyngeal fluid), from your nose, or from your throat. ? Testing a sample of saliva from your mouth. ? Testing a sample of coughed-up mucus from your lungs (sputum). How is this treated? Treatment for COVID-19 infection depends on the severity of the condition. ? Mild symptoms can be managed at home with rest, fluids, and wbxe-ksm-uohafte medicines. ? Serious symptoms may be treated in a hospital intensive care unit (ICU). Treatment in the ICU mayinclude: ? Supplemental oxygen. Extra oxygen is given through a tube in the nose, a face mask, or a perez. ? Medicines. These may include: ? Antivirals, such as monoclonal antibodies. These help your body fight off certain viruses that can cause disease. ? Anti-inflammatories, such as corticosteroids. These reduce inflammation and suppress the immune system. ? Antithrombotics. These prevent or treat blood clots, if they develop. ? Convalescent plasma. This helps boost your immune system, if you have an underlying immunosuppressive condition or are getting immunosuppressive treatments. ? Prone positioning. This means you will lie on your stomach. This helps oxygen to get into your lungs. ? Infection control measures. If you are at risk for more serious illness caused by COVID-19, your health care provider may prescribe two long-acting monoclonal antibodies, given together every 6 months. How is this prevented? To protect yourself: ? Use preventive medicine (pre-exposure prophylaxis). You may get pre-exposure prophylaxis if you have moderate or severe immunocompromise. ? Get vaccinated. Anyone 6 months old or older who meets guidelines can get a COVID-19 vaccine or vaccine series. This includes people who are or making breast milk (lactating). ? Get an added dose of COVID-19 vaccine after your first vaccine or vaccine series if you have moderate to severe immunocompromise. This applies if you have had a solid organ transplant or have been diagnosed with an immunocompromising condition. ? You should (more content not included)...[facility]11-27-2023 Evaluation + Plan note Diagnostic Tests Pending * Group A Strep by PCR 01/01/23 [facility]11-03-2023 Hospital Discharge instructions Patient Education 12/08/2022 00:29:17 Home Test Information Home Test Information Why am I having this test? A home test helps you determine whether you are or not. There are several types of home tests that can be bought at a store or pharmacy. Home tests are very accurate when: You are at least 3 4 weeks . It has been 1 2 weeks since your missed period. You use the test according to the package instructions. What is being tested? A home test detects the presence of a hormone called human chorionic gonadotropin (hCG) in your urine. HCG is produced by cells of the placenta. The placenta is the organ that forms to nourish and support a developing baby. What kind of sample is taken? Home tests require a urine sample. How do I collect samples at home? Most kits use a plastic testing device with a strip of paper that indicates whether there is hCG inyour urine. Follow the test package instructions very carefully for how to test your urine. Depending on the test, you may need to: Urinate directly onto the stick. Urinate into a cup. Wait for the results as directed by the package instructions. The amount of time may be different for each type of test. How do I prepare for this test? For best results, collect the sample the first time you urinate in the morning. This when the concentration of hCG is highest. How are the results reported? Follow the test package instructions for how to read your test results. Depending on the test, results may be displayed as: A plus or a minus sign. One or two lines. or not . What do the results mean? Positive test result A positive home test means that you are . It is important to schedule an appointment with your health care provider to start care. Your health care provider may perform additional testing to confirm the and to determine that you have a normal . Negative test result If you have a negative home test you may want to wait a few days and then repeat the homepregnancy test. Many kits contain a second test as a back-up. If you have a negative test and also have symptoms of , contact your health care provider.Your health care provider can test a sample of your blood to check for . A blood test may return a positive result even if a urine test was negative because blood tests are more accurate. This means blood tests can detect hCG earlier than urine tests. Talk with your health care provider about what your results mean. Some things to know about a home test Sometimes, a home test may report that you are when you are not (false-positive result). This can happen if you: Are taking certain medicines, such as: ?Medicine to control seizures. ?Anti-anxiety medicine. ?Fertility medicine with hCG. Have a medical condition that affects your hormone levels. Had a recent loss (miscarriage) or . Sometimes, a home test may report that you are not when you are (false-negative result). This can happen if you: Take the test too early in your . Before 3 4 weeks of , there may not be enough hCG to detect. Drink a lot of liquid before the test. Use an test. Are taking certain medicines, such as antihistamines or water pills (diuretics). Questions to ask your health care provider Ask your health care provider, or the department that is doing the test: When will my results be ready? How will I get my results? What are my treatment options? What other tests do I need? What are my next steps? Summary A home test helps you determine whether you are or not by detecting the presenceof the hormone human chorionic gonadotropin (hCG) in a sample of your urine. Follow the test package instructions very carefully. For best results, collect the sample the firsttime you urinate in the morning. This when the concentration of hCG is highest. Home tests are very accurate when you are 3 4 weeks or when it has been 1 2 weeks since your missed period. A positive home test means that you are . It is important to schedule an appointment with your health care provider to start care. This information is not intended to replace advice given to you by your health care provider. Make sure you discuss any questions you have with your health care provider. Document Revised: 10/25/2020 Document Reviewed: 10/25/2020 [employer] Patient Education 2022 [employer]. Follow Up Care 12/07/2022 22:59:47 With:Cara Bullard Address: [address] , [address] [address] [facility] (1) When:12/10/2022 Comments:Few concerns about continued can take up test at home in approximately 1 week. Please follow-up with your primary care doctor next 2 to 3 days. Please return to the ED for any newor worsening symptoms. With:XXXX NONE Address: [place] When:Within 3 Day(s) [facility]11-02-2023 Evaluation + Plan noteExtracted from: Title:ED Note Author:Damaris Jean Baptiste DO Date :12/07/22 Encounter for medical screen ing examination (Z13.9: Encounter for screening, unspecified) Orders: U Beta Hcg Qual UA With Cult Reflex Urine Culture [facility]09-25-2023 Hospital Discharge instructions Patient Education 10/30/2022 11:19:02 Dental Pain, Rqbw-wr-Hapg Dental Pain Dental pain is often a sign that something is wrong with your teeth or gums. You can also have painafter a dental treatment. If you have dental pain, it is important to contact your dentist, especially if the cause of the pain is not known. Dental pain may hurt a lot or a little and can be caused by many things, including: Tooth decay (cavities or caries). Infection. The inner part of the tooth being filled with pus (an abscess). Injury. A crack in the tooth. Gums that move back and expose the root of a tooth. Gum disease. Abnormal grinding or clenching of teeth. Not taking good care of your teeth. Sometimes the cause of pain is not known. You may have pain all the time, or it may happen only when you are: Chewing. Exposed to hot or cold temperatures. Eating or drinking foods or drinks that have a lot of sugar in them, such as soda or candy. Follow these instructions at home: Medicines Take zroj-ckt-vxpzorj and prescription medicines only as told by your dentist. If you were prescribed an antibiotic medicine, take it as told by your dentist. Do not stop taking it even if you start to feel better. Eating and drinking Do not eat foods or drinks that cause you pain. These include: Very hot or very cold foods or drinks. Sweet or sugary foods or drinks. Managing pain and swelling If told, put ice on the painful area of your face. To do this: ?Put ice in a plastic bag. ?Place a towel between your skin and the bag. ?Leave the ice on for 20 minutes, 2 3 times a day. ?Take off the ice if your skin turns bright red. This is very important. If you cannot feel pain, heat, or cold, you have a greater risk of damage to the area. Brushing your teeth Gill your teeth twice a day using a fluoride toothpaste. Use a toothpaste made for sensitive teeth as told by your dentist. Use a soft toothbrush. General instructions Floss your teeth at least once a day. Do not put heat on the outside of your face. Rinse your mouth often with salt water. To make salt water, dissolve 1 tsp (3 6 g) of salt in 1 cup(237 mL) of warm water. Watch your dental pain. Let your dentist know if there are any changes. Keep all follow-up visits. Contact a dentist if: You have dental pain and you do not know why. Medicine does not help your pain. Your symptoms get worse. You have new symptoms. Get help right away if: You cannot open your mouth. You are having trouble breathing or swallowing. You have a fever. Your face, neck, or jaw is swollen. These symptoms may be an emergency. Get help right away. Call your local emergency services (911 int [place] Do not wait to see if the symptoms will go away. Do not drive yourself to the hospital. Summary Dental pain may be caused by many things, including tooth decay, injury, or infection. In some cases, the cause is not known. Dental pain may hurt a lot or very little. You may have pain all the time, or you may have it only when you eat or drink. Take rbjo-xfo-hagpmta and prescription medicines only as told by your dentist. Watch your dental pain for any changes. Let your dentist know if symptoms get worse. This information is not intended to replace advice given to you by your health care provider. Make sure you discuss any questions you have with your health care provider. Document Revised: 10/27/2020 Document Reviewed: 10/27/2020 [employer] Patient Education 2022 [employer]. Follow Up Care 10/30/2022 10:44:51 With:Dental: [facility] [phone] Address:Unknown When:11/02/2022 11:12:14 With:Dental: [facility] [facility] [phone] Address:Unknown When:11/02/2022 11:12:13 With:Dental: [facility] [phone] Address:Unknown When:11/02/2022 11:12:13 [facility]07-07-2023 NoteDATE OF DISCHARGE: 08/10/2022 The patient is without complaints. Positive flatus. Positive void. Vital signs are stable, afebrile. Breasts non-tender, non-pathologic. Abdomen fundus firm and below the umbilicus. She has scant lochia. The perineum is intact. The patient is ready for release. Good instructions are given. The patient is to return to my office in six weeks. She is given the following prescriptions for her home use: Motrin and vitamins. DISCHARGE DIAGNOSIS: Vaginal delivery. Course: Complicated by maternal Chlamydia, labor at 37 weeks and 4 days. Intrapartum Course: Spontaneous vaginal delivery of a 6 pound 1 ounce female infant with Apgars of 8 and 9, nuchal cord reduced x2, otherwise without complications. Course: Without complications. Ras Miller M.D. Dictated: 08/10/2022 [id number] Transcribed: 08/10/2022[facility]:Result Comment: Electronically Signed By: Paul CASE, Ras Radford\.br\Date and Time Signed: 08/11/22 08:18 [id number] NoteThe following Patient Education Materials have been given to the patient: [facility] Evaluation + Plan note Extracted from: Title:OB Inpatient Progress Note * Au thor:Eduardo Butler MD Date:08/09/22 Impression and Plan Condition: Stable. Plan Routine care. Extracted from: Title:ANES Post-Labor Epidural Author:Ra Trevino Jr, DO Date:08/09/22 Plan Transfer/Discharge: Stable for discharge from anesthetic standpoint.. Extracted from: Title:OB Vag Delivery Procedure/L&D Summary * Au thor:Jerry WILSON DO R Date:08/08/22 Impression and Plan s/p at 0411, delivered rima, nuchal cord times 2, cord clamped and cut, cord blood obtained, 3vc,placenta delivered spontaneously, no lacerations, a viable female apgars 8@1 and 9@5, wt unknown Extracted from: Title:OB Admission H&P L&D/ PreOp * Author:Jerry WILSON DO R Date:08/08/22 Impression and Plan iup at 37 4/7wks, active labor-iv, routine labs, iv abx dt uknown gbbs, cont efm Extracted from: Title:L&D Epidural note Author:Kellie Casas Jr., DO Date:08/07/22 Impression and Plan Plan Labor epidural at request of patient.. [facility]07-03-2023 Hospital Discharge instructions Follow Up Care 08/07/2022 06:16:53 With:Eduardo Butler Address: [address] [place] [phone] [facility] (1) When:6 weeks Comments:Call Dr if fever>100.5 F, heavy bleedingCall for any problems. [facility]06-30-2023 NoteThe following Patient Education Materials have been given to the patient: [facility]Material[facility] Discharge instructions Follow Up Care 08/04/2022 10:54:12 With:Eduardo Butler Address:Unknown When:1 week Comments:Appointment has already been scheduledCall for any problems.Call for severe abdominal painCall physician if symptoms worsenReturn for contractions closer, longer, harderReturn for decreased movementReturn if ruptured membranes or vaginal bleeding [facility]12-14-2022 Evaluation + Plan noteExtracted from: Title:ED Note Author:Alek Collins DO Date :01/18/22 N&V (nausea and vomiting) (R 11.2: Nausea with vomiting, unspecified) (Z34.90: Encounter for supervision of normal , unspecified, unspecified trimester) Orders: Lactated Ringers Injection, 1,000 mL, Soln-IV, IV, Once, Stop date 01/18/22 1:21:00 EST, STAT, Start date 01/18/22 1:21:00 EST, mL/hr, Infuse over 61, minute(s) ondansetron, 4 mg = 1 tab(s), Oral, q8hr, PRN Nausea/Vomiting, # 20 tab(s), Refills(s) 0, Pharmacy: [facility] #[id number], 165.1, cm, 01/18/22 1:14:00 EST, Height/Length Dosing, 74.4, kg, 01/18/22 1:14:00 EST, Weight Dosing ondansetron, 4 mg = 2 mL, Injection, IV Push, Once, Stop date 01/18/22 1:21:00 EST, STAT, Start date 01/18/22 1:21:00 EST, 01/18/22 1:21:00 EST Add on Test Basic Metabolic Panel Beta hCG Quantitative eGFR Rapid COVID Antigen ([facility] [place]) UA With Cult Reflex US 1st Trimester [facility]12-14-2022 Hospital Discharge instructions Patient Education 01/18/2022 04:21:37 First Trimester of First Trimester of The first trimester of is from week 1 until the end of week 13 (months 1 through 3). A week after a sperm fertilizes an egg, the egg will implant on the wall of the uterus. This embryo willbegin to develop into a baby. Genes from you and your partner will form the baby. The male genes will determine whether the baby will be a boy or a girl. At 6 8 weeks, the eyes and face will be formed , and the heartbeat can be seen on ultrasound. At the end of 12 weeks, all the baby's organs will be formed. Now that you are , you will want to do everything you can to have a healthy baby. Two of the most important things are to get good care and to follow your health care provider's instructions. care is all the medical care you receive before the baby's . This care will help prevent, find, and treat any problems during the and childbirth. Body changes during your first trimester Your body goes through many changes during . The changes vary from woman to woman. You may gain or lose a couple of pounds at first. You may feel sick to your stomach (nauseous) and you may throw up (vomit). If the vomiting is uncontrollable, call your health care provider. You may tire easily. You may develop headaches that can be relieved by medicines. All medicines should be approved by your health care provider. You may urinate more often. Painful urination may mean you have a bladder infection. You may develop heartburn as a result of your . You may develop constipation because certain hormones are causing the muscles that push stool through your intestines to slow down. You may develop hemorrhoids or swollen veins (varicose veins). Your breasts may begin to grow larger and become tender. Your nipples may stick out more, and the tissue that surrounds them (areola) may become darker. Your gums may bleed and may be sensitive to brushing and flossing. Dark spots or blotches (chloasma, mask of ) may develop on your face. This will likely fade after the baby is born. Your menstrual periods will stop. You may have a loss of appetite. You may develop cravings for certain kinds of food. You may have changes in your emotions from day to day, such as being excited to be or being concerned that something may go wrong with the and baby. You may have more vivid and strange dreams. You may have changes in your hair. These can include thickening of your hair, rapid growth, and changes in texture. Some women also have hair loss during or after , or hair that feels dry orthin. Your hair will most likely return to normal after your baby is born. What to expect at visits During a routine visit: You will be weighed to make sure you and the baby are growing normally. Your blood pressure will be taken. Your abdomen will be measured to track your baby's growth. The heartbeat will be listened to between weeks 10 and 14 of your . Test results from any previous visits will be discussed. Your health care provider may ask you: How you are feeling. If you are feeling the baby move. If you have had any abnormal symptoms, such as leaking fluid, bleeding, severe headaches, or abdominal cramping. If you are using any tobacco products, including cigarettes, chewing tobacco, and electronic cigarettes. If you have any questions. Other tests that may be performed during your first trimester include: Blood tests to find your blood type and to check for the presence of any previous infections. The tests will also be used to check for low iron levels (anemia) and protein on red blood cells (Rh antibodies). Depending on your risk factors, or if you previously had diabetes during , you mayhave tests to check for high blood sugar that affects women (gestational diabetes). Urine tests to check for infections, diabetes, or protein in the urine. An ultrasound to confirm the proper growth and development of the baby. screens for spinal cord problems (spina bifida) and Down syndrome. HIV (human immunodeficiency virus) testing. Routine testing includes screening for HIV, unless you choose not to have this test. You may need other tests to make sure you and the baby are doing well. Follow these instructions at home: Medicines Follow your health care provider's instructions regarding medicine use. Specific medicines may be either safe or unsafe to take during . Take a vitamin that contains at least 600 micrograms (mcg) of folic acid. If you develop constipation, try taking a stool softener if your health care provider approves. Eating and drinking Eat a balanced diet that includes fresh fruits and vegetables, whole grains, good sources of protein such as meat, eggs, or tofu, and low-fat dairy. Your health care provider will help you determine the amount of weight gain that is right for you. Avoid raw meat and uncooked cheese. These carry germs that can cause defects in the baby. Eating four or five small meals rather than three large meals a day may help relieve nausea and vomiting. If you start to feel nauseous, eating a few soda crackers can be helpful. Drinking liquids between meals, instead of during meals, also seems to help ease nausea and vomiting. Limit foods that are high in fat and processed sugars, such as fried and sweet foods. To prevent constipation: ?Eat foods that are high in fiber, such as fresh fruits and vegetables, whole grains, and beans. ?Drink enough fluid to keep your urine clear or pale yellow. Activity Exercise only as directed by your health care provider. Most women can continue their usual exercise routine during . Try to exercise for 30 minutes at least 5 days a week. Exercising will help you: ?Control your weight. ?Stay in shape. ?Be prepared for labor and delivery. Experiencing pain or cramping in the lower abdomen or lower back is a good sign that you should stop exercising. Check with your health care provider before continuing with normal exercises. Try to avoid standing for long periods of time. Move your legs often if you must fire investigator one placefor a long time. Avoid heavy lifting. Wear low-heeled shoes and practice good posture. You may continue to have sex unless your health care provider tells you not to. Relieving pain and discomfort Wear a good support bra to relieve breast tenderness. Take warm sitz baths to soothe any pain or discomfort caused by hemorrhoids. Use hemorrhoid cream if your health care provider approves. Rest with your legs elevated if you have leg cramps or low back pain. If you develop varicose veins in your legs, wear support hose. Elevate your feet for 15 minutes, 3 4 times a day. Limit salt in your diet. care Schedule your visits by the twelfth week of . They are usually scheduled monthly at first, then more often in the last 2 months before delivery. Write down your questions. Take them to your visits. Keep all your visits as told by your health care provider. This is important. Safety Wear your seat belt at all times when driving. Make a list of emergency phone numbers, including numbers for family, friends, the hospital, and police and fire departments. General instructions Ask your health care provider for a referral to a local education class. Begin classes no later than the beginning of month 6 of your . Ask for help if you have counseling or nutritional needs during . Your health care provider can offer advice or refer you to specialists for help with various needs. Do not use hot tubs, steam rooms, or saunas. Do not douche or use tampons or scented sanitary pads. Do not cross your legs for long periods of time. Avoid cat litter boxes and soil used by cats. These carry germs that can cause defects in thebaby and possibly loss of the fetus by miscarriage or stillbirth. Avoid all smoking, herbs, alcohol, and medicines not prescribed by your health care provider. Chemicals in these products affect the formation and growth of the baby. Do not use any products that contain nicotine or tobacco, such as cigarettes and e-cigarettes. If you need help quitting, ask your health care provider. You may receive counseling support and other resources to help you quit. Schedule a dentist appointment. At home, brush your teeth with a soft toothbrush and be gentle whenyou floss. Contact a health care provider if: You have dizziness. You have mild pelvic cramps, pelvic pressure, or nagging pain in the abdominal area. You have persistent nausea, vomiting, or diarrhea. You have a bad smelling vaginal discharge. You have pain when you urinate. You notice increased swelling in your face, hands, legs, or ankles. You are exposed to fifth disease or chickenpox. You are exposed to [place] measles (rubella) and have never had it. Get help right away if: You have a fever. You are leaking fluid from your vagina. You have spotting or bleeding from your vagina. You have severe abdominal cramping or pain. You have rapid weight gain or loss. You vomit blood or material that looks like coffee grounds. You develop a severe headache. You have shortness of breath. You have any kind of trauma, such as from a fall or a car accident. Summary The first trimester of is from week 1 until the end of week 13 (months 1 through 3). Your body goes through many changes during . The changes vary from woman to woman. You will have routine visits. During those visits, your health care provider will examine you, discuss any test results you may have, and talk with you about how you are feeling. This information is not intended to replace advice given to you by your health care provider. Make sure you discuss any questions you have with your health care provider. Document Released: 01/16/2002 Document Revised: 01/04/2018 Document Reviewed: 01/03/2017 [employer] Patient Education 2020 [employer] Follow Up Care 01/18/2022 00:46:10 With:Ras Miller Address: [facility] [address] [address] [address] [facility] (1) When:01/21/2022 [facility]12-01-2022 Hospital Discharge instructions Patient Education 01/05/2022 12:47:03 Urinary Tract Infection, Adult Urinary Tract Infection, Adult A urinary tract infection (UTI) is an infection of any part of the urinary tract. The urinary tractincludes the kidneys, ureters, bladder, and urethra. These organs make, store, and get rid of urinein the body. Your health care provider may use other names to describe the infection. An upper UTI affects the ureters and kidneys (pyelonephritis). A lower UTI affects the bladder (cystitis) and urethra (urethritis). What are the causes? Most urinary tract infections are caused by bacteria in your genital area, around the entrance to your urinary tract (urethra). These bacteria grow and cause inflammation of your urinary tract. What increases the risk? You are more likely to develop this condition if: You have a urinary catheter that stays in place (indwelling). You are not able to control when you urinate or have a bowel movement (you have incontinence). You are female and you: ?Use a spermicide or diaphragm for control. ?Have low estrogen levels. ?Are . You have certain genes that increase your risk (genetics). You are sexually active. You take antibiotic medicines. You have a condition that causes your flow of urine to slow down, such as: ?An enlarged prostate, if you are male. ?Blockage in your urethra (stricture). ?A kidney stone. ?A nerve condition that affects your bladder control (neurogenic bladder). ?Not getting enough to drink, or not urinating often. You have certain medical conditions, such as: ?Diabetes. ?A weak disease-fighting system (immunesystem). ?Sickle cell disease. ?Gout. ?Spinal cord injury. What are the signs or symptoms? Symptoms of this condition include: Needing to urinate right away (urgently). Frequent urination or passing small amounts of urine frequently. Pain or burning with urination. Blood in the urine. Urine that smells bad or unusual. Trouble urinating. Cloudy urine. Vaginal discharge, if you are female. Pain in the abdomen or the lower back. You may also have: Vomiting or a decreased appetite. Confusion. Irritability or tiredness. A fever. Diarrhea. The first symptom in older adults may be confusion. In some cases, they may not have any symptoms until the infection has worsened. How is this diagnosed? This condition is diagnosed based on your medical history and a physical exam. You may also have other tests, including: Urine tests. Blood tests. Tests for sexually transmitted infections (STIs). If you have had more than one UTI, a cystoscopy or imaging studies may be done to determine the cause of the infections. How is this treated? Treatment for this condition includes: Antibiotic medicine. Xxkl-cfj-vvvlfuq medicines to treat discomfort. Drinking enough water to stay hydrated. If you have frequent infections or have other conditions such as a kidney stone, you may need to see a health care provider who specializes in the urinary tract (urologist). In rare cases, urinary tract infections can cause sepsis. Sepsis is a life- threatening condition that occurs when the body responds to an infection. Sepsis is treated in the hospital with IV antibiotics, fluids, and other medicines. Follow these instructions at home: Medicines Take agij-qdm-mctwybw and prescription medicines only as told by your health care provider. If you were prescribed an antibiotic medicine, take it as told by your health care provider. Do notstop using the antibiotic even if you start to feel better. General instructions Make sure you: ?Empty your bladder often and completely. Do not hold urine for long periods of time. ?Empty your bladder after sex. ?Wipe from front to back after a bowel movement if you are female. Use each tissue one time when you wipe. Drink enough fluid to keep your urine pale yellow. Keep all follow-up visits as told by your health care provider. This is important. Contact a health care provider if: Your symptoms do not get better after 1 2 days. Your symptoms go away and then return. Get help right away if you have: Severe pain in your back or your lower abdomen. A fever. Nausea or vomiting. Summary A urinary tract infection (UTI) is an infection of any part of the urinary tract, which includes the kidneys, ureters, bladder, and urethra. Most urinary tract infections are caused by bacteria in your genital area, around the entrance to your urinary tract (urethra). Treatment for this condition often includes antibiotic medicines. If you were prescribed an antibiotic medicine, take it as told by your health care provider. Do notstop using the antibiotic even if you start to feel better. Keep all follow-up visits as told by your health care provider. This is important. This information is not intended to replace advice given to you by your health care provider. Make sure you discuss any questions you have with your health care provider. Document Released: 11/01/2005 Document Revised: 01/09/2019 Document Reviewed: 08/01/2018 [employer] Patient Education 2020 [employer]. 01/05/2022 12:47:03 Nausea and Vomiting, Adult Nausea and Vomiting, Adult Nausea is the feeling that you have an upset stomach or that you are about to vomit. Vomiting is when stomach contents are thrown up and out of the mouth as a result of nausea. Vomiting can make you feel weak and cause you to become dehydrated. Dehydration can make you feel tired and thirsty, cause you to have a dry mouth, and decrease how often you urinate. Older adults and people with other diseases or a weak disease-fighting system (immune system) are at higher risk for dehydration. It is important to treat your nausea and vomiting as told by your health care provider. Follow these instructions at home: Watch your symptoms for any changes. Tell your health care provider about them. Follow these instructions to care for yourself at home. Eating and drinking Take an oral rehydration solution (ORS). This is a drink that is sold at pharmacies and retail stores. Drink clear fluids slowly and in small amounts as you are able. Clear fluids include water, ice chips, low-calorie sports drinks, and fruit juice that has water added (diluted fruit juice). Eat bland, ghdq-oj-jxmmen foods in small amounts as you are able. These foods include bananas, applesauce, rice, lean meats, toast, and crackers. Avoid fluids that contain a lot of sugar or caffeine, such as energy drinks, sports drinks, and soda. Avoid alcohol. Avoid spicy or fatty foods. General instructions Take xccm-aqe-zawrnke and prescription medicines only as told by your health care provider. Drink enough fluid to keep your urine pale yellow. Wash your hands often using soap and water. If soap and water are not available, use hand morning news anchor. Make sure that all people in your household wash their hands well and often. Rest at home while you recover. Watch your condition for any changes. Breathe slowly and deeply when you feel nauseated. Keep all follow-up visits as told by your health care provider. This is important. Contact a health care provider if: Your symptoms get worse. You have new symptoms. You have a fever. You cannot drink fluids without vomiting. Your nausea does not go away after 2 days. You feel light-headed or dizzy. You have a headache. You have muscle cramps. You have a rash. You have pain while urinating. Get help right away if: You have pain in your chest, neck, arm, or jaw. You feel extremely weak or you faint. You have persistent vomiting. You have vomit that is bright red or looks like black coffee grounds. You have bloody or black stools or stools that look like tar. You have a severe headache, a stiff neck, or both. You have severe pain, cramping, or bloating in your abdomen. You have difficulty breathing, or you are breathing very quickly. Your heart is beating very quickly. Your skin feels cold and clammy. You feel confused. You have signs of dehydration, such as: ?Dark urine, very little urine, or no urine. ?Cracked lips. ?Dry mouth. ?Sunken eyes. ?Sleepiness. ?Weakness. These symptoms may represent a serious problem that is an emergency. Do not wait to see if the symptoms will go away. Get medical help right away. Call your local emergency services (911 in the [place] Do not drive yourself to the hospital. Summary Nausea is the feeling that you have an upset stomach or that you are about to vomit. As nausea getsworse, it can lead to vomiting. Vomiting can make you feel weak and cause you to become dehydrated. Follow instructions from your health care provider about eating and drinking to prevent dehydration. Take sbfx-jtq-vmscbmy and prescription medicines only as told by your health care provider. Contact your health care provider if your symptoms get worse, or you have new symptoms. Keep all follow-up visits as told by your health care provider. This is important. This information is not intended to replace advice given to you by your health care provider. Make sure you discuss any questions you have with your health care provider. Document Released: 01/22/2006 Document Revised: 05/16/2019 Document Reviewed: 07/02/2018 [employer] Patient Education 2020 [employer]. Follow Up Care 01/05/2022 07:49:33 With:Ras Miller Address: [address] [place], [place] [id number] Business (1) When:01/08/2022 10:01:01 With:Vijay PACHECO Address: [address] [place] [id number] Business (1) When:01/08/2022 10:00:58 [facility]12-01-2022 Evaluation + Plan noteExtracted from: Title:ED Note Author:Colby Ayers PA-C te:01/05/22 Nausea and vomiting (R11.2: Nausea with vomiting, unspecified) UTI in (O23.40: Unspecified infection of urinary tract in , unspecified trimester) Orders: cephalexin, 500 mg = 1 cap(s), Oral, q12hr, X 7 day(s), # 14 cap(s), Refills(s) 0, Pharmacy: [facility] #[id number], 165, cm, 01/05/22 7:56:00 EST, Height/Length Dosing, 74.1, kg, 01/05/22 7:56:00 EST, Weight Dosing ondansetron, 4 mg = 2 mL, Injection, IV Push, Once, Stop date 01/05/22 9:24:00 EST, STAT, Start date 01/05/22 9:24:00 EST, 01/05/22 9:24:00 EST potassium chloride, 40 mEq = 2 tab(s), Tab-ER, Oral, Once, Stop date 01/05/22 10:00:00 EST, STAT, Start date 01/05/22 10:00:00 EST, 01/05/22 10:00:00 EST promethazine, 25 mg = 1 mL, Injection, IV Push, Once, Stop date 01/05/22 8:16:00 EST, STAT, Start date 01/05/22 8:16:00 EST, 01/05/22 8:16:00 EST promethazine, 25 mg = 1 tab(s), Oral, TID, # 15 tab(s), Refills(s) 0, [id number], 165, cm, 01/05/22 7:56:00 EST, Height/Length Dosing, 74.1, kg, 01/05/22 7:56:00 EST, Weight Dosing Diagnostic Tests Pending * Urine Culture 01/05/22 [facility]11-28-2022 Hospital Discharge instructions Patient Education 01/02/2022 14:19:40 Nausea and Vomiting, Adult, Hfkk-rc-Hhbx Nausea and Vomiting, Adult Nausea is feeling sick to your stomach or feeling that you are about to throw up (vomit). Vomiting is when food in your stomach is thrown up and out of the mouth. Throwing up can make you feel weak. It can also make you lose too much water in your body (get dehydrated). If you lose too much water in your body, you may: Feel tired. Feel thirsty. Have a dry mouth. Have cracked lips. Go pee (urinate) less often. Older adults and people with other diseases or a weak body defense system (immune system) are at higher risk for losing too much water in the body. If you feel sick to your stomach and you throw up, it is important to follow instructions from your doctor about how to take care of yourself. Follow these instructions at home: Watch your symptoms for any changes. Tell your doctor about them. Follow these instructions to carefor yourself at home. Eating and drinking Take an ORS (oral rehydration solution). This is a drink that is sold at pharmacies and stores. Drink clear fluids in small amounts as you are able, such as: ?Water. ?Ice chips. ?Fruit juice that has water added (diluted fruit juice). ?Low-calorie sports drinks. Eat bland, vrof-og-ekmxnt foods in small amounts as you are able, such as: ?Bananas. ?Applesauce. ?Rice. ?Low-fat (lean) meats. ?[place]. ?Crackers. Avoid drinking fluids that have a lot of sugar or caffeine in them. This includes energy drinks, sports drinks, and soda. Avoid alcohol. Avoid spicy or fatty foods. General instructions Take ggzh-sdc-aofzdhq and prescription medicines only as told by your doctor. Drink enough fluid to keep your pee (urine) pale yellow. Wash your hands often with soap and water. If you cannot use soap and water, use hand morning news anchor. Make sure that all people in your home wash their hands well and often. Rest at home while you get better. Watch your condition for any changes. Take slow and deep breaths when you feel sick to your stomach. Keep all follow-up visits as told by your doctor. This is important. Contact a doctor if: Your symptoms get worse. You have new symptoms. You have a fever. You cannot drink fluids without throwing up. You feel sick to your stomach for more than 2 days. You feel light-headed or dizzy. You have a headache. You have muscle cramps. You have a rash. You have pain while peeing. Get help right away if: You have pain in your chest, neck, arm, or jaw. You feel very weak or you pass out (faint). You throw up again and again. You have throw up that is bright red or looks like black coffee grounds. You have bloody or black poop (stools) or poop that looks like tar. You have a very bad headache, a stiff neck, or both. You have very bad pain, cramping, or bloating in your belly (abdomen). You have trouble breathing. You are breathing very quickly. Your heart is beating very quickly. Your skin feels cold and clammy. You feel confused. You have signs of losing too much water in your body, such as: ?Dark pee, very little pee, or no pee. ?Cracked lips. ?Dry mouth. ?Sunken eyes. ?Sleepiness. ?Weakness. These symptoms may be an emergency. Do not wait to see if the symptoms will go away. Get medical help right away. Call your local emergency services (911 in the [place] Do not drive yourself to the hospital. Summary Nausea is feeling sick to your stomach or feeling that you are about to throw up (vomit). Vomiting is when food in your stomach is thrown up and out of the mouth. Follow instructions from your doctor about eating and drinking to keep from losing too much water in your body. Take wxzk-vxz-tgglhqn and prescription medicines only as told by your doctor. Contact your doctor if your symptoms get worse or you have new symptoms. Keep all follow-up visits as told by your doctor. This is important. This information is not intended to replace advice given to you by your health care provider. Make sure you discuss any questions you have with your health care provider. Document Released: 07/10/2008 Document Revised: 05/16/2019 Document Reviewed: 07/02/2018 [employer] Patient Education 2020 [employer]. 01/02/2022 14:19:40 Care Care care is health care during . It helps you and your unborn baby (fetus) stay as healthy as possible. care may be provided by a electromechanical assembly technician, a family practice health care provider, or a childbirth and specialist (systems integrator). How does this affect me? During , you will be closely monitored for any new conditions that might develop. To loweryour risk of complications, you and your health care provider will talk about any underlying conditions you have. How does this affect my baby? Early and consistent care increases the chance that your baby will be healthy during . care lowers the risk that your baby will be: Born early (prematurely). Smaller than expected at (small for gestational age). What can I expect at the first care visit? Your first care visit will likely be the longest. You should schedule your first care visit as soon as you know that you are . Your first visit is a good time to talk about any questions or concerns you have about . At your visit, you and your health care providerwill talk about: Your medical history, including: ?Any past pregnancies. ?Your family's medical history. ?The baby's father's medical history. ?Any long-term (chronic) health conditions you have and how you manage them. ?Any surgeries or procedures you have had. ?Any current egfo-igm-qpkvgrt or prescription medicines, herbs, or supplements you are taking. Other factors that could pose a risk to your baby, including: Your home setting and your stress levels, including: ?Exposure to abuse or violence. ?Household financial strain. ?Mental health conditions you have. Your daily health habits, including diet and exercise. Your health care provider will also: Measure your weight, height, and blood pressure. Do a physical exam, including a pelvic and breast exam. Perform blood tests and urine tests to check for: ?Urinary tract infection. ?Sexually transmitted infections (STIs). ?Low iron levels in your blood (anemia). ?Blood type and certain proteins on red blood cells (Rh antibodies). ?Infections and immunity to viruses, such as hepatitis B and rubella. ?HIV (human immunodeficiency virus). Do an ultrasound to confirm your baby's growth and development and to help predict your estimated due date (ALISHA). This ultrasound is done with a probe that is inserted into the vagina (transvaginal ultrasound). Discuss your options for genetic screening. Give you information about how to keep yourself and your baby healthy, including: ?Nutrition and taking vitamins. ?Physical activity. ?How to manage symptoms such as nausea and vomiting (morning sickness). ?Infections and substances that may be harmful to your baby and how to avoid them. ?Food safety. ?Dental care. ?Working. ?Travel. ?Warning signs to watch for and when to call your health care provider. How often will I have care visits? After your first care visit, you will have regular visits throughout your . The visit schedule is often as follows: Up to week 28 of : once every 4 weeks. 28 36 weeks: once every 2 weeks. After 36 weeks: every week until delivery. Some women may have visits more or less often depending on any underlying health conditions and thehealth of the baby. Keep all follow-up and care visits as told by your health care provider. This is important. What happens during routine care visits? Your health care provider will: Measure your weight and blood pressure. Check for heart sounds. Measure the height of your uterus in your abdomen (fundal height). This may be measured starting around week 20 of . Check the position of your baby inside your uterus. Ask questions about your diet, sleeping patterns, and whether you can feel the baby move. Review warning signs to watch for and signs of labor. Ask about any symptoms you are having and how you are dealing with them. Symptoms may include: ?Headaches. ?Nausea and vomiting. ?Vaginal discharge. ?Swelling. ?Fatigue. ?Constipation. ?Any discomfort, including back or pelvic pain. Make a list of questions to ask your health care provider at your routine visits. What tests might I have during care visits? You may have blood, urine, and imaging tests throughout your , such as: Urine tests to check for glucose, protein, or signs of infection. Glucose tests to check for a form of diabetes that can develop during (gestational diabetes mellitus). This is usually done around week 24 of . An ultrasound to check your baby's growth and development and to check for defects. This is usually done around week 20 of . A test to check for group B strep (GBS) infection. This is usually done around week 36 of . Genetic testing. This may include blood or imaging tests, such as an ultrasound. Some genetic testsare done during the first trimester and some are done during the second trimester. What else can I expect during care visits? Your health care provider may recommend getting certain vaccines during . These may include: A yearly flu shot (annual influenza vaccine). This is especially important if you will be during flu season. Tdap (tetanus, diphtheria, pertussis) vaccine. Getting this vaccine during can protect your baby from whooping cough (pertussis) after . This vaccine may be recommended between weeks 27 and 36 of . Later in your , your health care provider may give you information about: Childbirth and classes. Choosing a health care provider for your baby. Umbilical cord banking. . control after your baby is born. The hospital labor and delivery unit and how to tour it. Registering at the hospital before you go into labor. Where to find more information Office on Women's Health: womenshealth.gov [employer] Association: americanpregnancy.org April Dimes: marchofdimes.org Summary care helps you and your baby stay as healthy as possible during . Your first care visit will most likely be the longest. You will have visits and tests throughout your to monitor your health and your baby's health. Bring a list of questions to your visits to ask your health care provider. Make sure to keep all follow-up and care visits with your health care provider. This information is not intended to replace advice given to you by your health care provider. Make sure you discuss any questions you have with your health care provider. Document Released: 2004 Document Revised: 05/14/2019 Document Reviewed: 01/21/2018 [employer] Patient Education 2020 [employer]. Follow Up Care 01/02/2022 12:36:12 With:Ras Miller Address: [address], [facility] [address] [place] [address]- Business (1) When:01/05/2022 14:06:25 Comments:Follow-up with Dr. Miller for further evaluation of your . With:Holli Moctezuma Address: [address] [place] [address]- Business (1) When:01/05/2022 14:06:17 Comments:Follow-up with your primary care provider in 3 to 5 days. If symptoms worsen, do not improve, or new symptoms arise please report back to emergency department for further evaluation. [facility]11-28-2022 Evaluation + Plan noteExtracted from: Title:ED Note Author:Donavan Lawson PA-C te:01/02/22 Nausea and/or vomiting (R11. 2: Nausea with vomiting, unspecified) (Z34.90: Encounter for supervision of normal , unspecified, unspecified trimester) Orders: metoclopramide, 5 mg = 1 tab(s), Oral, q6hr, X 7 day(s), # 28 tab(s), Refills(s) 0, Pharmacy: [id number], 165, cm, 10/16/21 20:16:00 EDT, Height/Length Dosing, 75.2, kg, 01/02/22 12:43:00 EST, Weight Dosing ondansetron, 4 mg = 2 mL, Injection, IV Push, Once, Stop date 01/02/22 12:52:00 EST, STAT, Start date 01/02/22 12:52:00 EST, 01/02/22 12:52:00 EST Sodium Chloride 0.9% intravenous solution, 1,000 mL, Soln-IV, IV, Once, Stop date 01/02/22 12:52:00 EST, STAT, Start date 01/02/22 12:52:00 EST, mL/hr, Infuse over 61, minute(s) Automated Diff Basic Metabolic Panel Beta hCG Qual CBC w/ Auto Diff Extra Blue Tube Hepatic Function Panel Lipase Level Morphology UA With Cult Reflex [facility]09-11-2022 Hospital Discharge instructions Patient Education 10/16/2021 21:36:36 Dental Pain Dental Pain Dental pain may be caused by many things, including: Tooth decay (cavities or caries). Cavities expose the nerve of your tooth to air and to hot or coldtemperatures. This can cause pain or discomfort. Abscess or infection. A dental abscess is a collection of pus from a bacterial infection in the inner part of the tooth (pulp). It usually occurs at the end of the root of a tooth. Injury. An unknown reason (idiopathic). Your pain may be mild or severe. It may occur when you are: Chewing. Exposed to hot or cold temperatures. Eating or drinking sugary foods or beverages, such as soda or candy. Your pain may be constant, or it may come and go without cause. Follow these instructions at home: Watch your dental pain for any changes. The following actions may help to lessen any discomfort that you are feeling: Medicines Take olym-txt-egnczfh and prescription medicines only as told by your health care provider. If you were prescribed an antibiotic medicine, take it as told by your health care provider. Do notstop taking the antibiotic even if you start to feel better. Eating and drinking Avoid foods or drinks that cause you pain, such as: ?Very hot or very cold foods or drinks. ?Sweet or sugary foods or drinks. Managing pain and swelling Apply ice to the painful area of your face: ?Put ice in a plastic bag. ?Place a towel between your skin and the bag. ?Leave the ice on for 20 minutes, 2 3 times a day. Brushing your teeth To keep your mouth and gums healthy, use fluoride toothpaste to brush your teeth twice a day. Flossonce a day. Use a toothpaste made for sensitive teeth if directed by your health care provider. Gill your teeth with a soft-bristled toothbrush. General instructions Do not apply heat to the outside of your face. Gargle with a salt-water mixture 3 4 times a day or as needed. To make a salt- water mixture, completely dissolve 1 tsp of salt in 1 cup of warm water. Keep all follow-up visits as told by your health care provider. This is important. Apply ice to the outside of your jaw if there is swelling. Do not put ice directly on the skin. Contact a health care provider if: Your pain is not controlled with medicines. Your symptoms get worse. You have new symptoms. Get help right away if you: Are unable to open your mouth. Are having trouble breathing or swallowing. Have a fever. Notice that your face, neck, or jaw is swollen. Summary Dental pain may be caused by many things, including tooth decay and infection. Your pain may be mild or severe. Take ldsq-pme-fbyoxtl and prescription medicines only as told by your health care provider. Watch your dental pain for any changes. Let your health care provider know if symptoms get worse. This information is not intended to replace advice given to you by your health care provider. Make sure you discuss any questions you have with your health care provider. Document Released: 01/22/2006 Document Revised: 05/20/2019 Document Reviewed: 12/13/2017 [employer] Patient Education 2020 [employer]. 10/16/2021 21:36:36 Dental Caries, Adult Dental Caries, Adult Dental caries are spots of decay (cavities) in the outer layer of your tooth (enamel). The natural bacteria in your mouth produce acid when breaking down sugary foods and drinks. When you eat or drink a lot of sugary foods and liquids, a lot of acid is produced. The acid destroys the protective enamel of your tooth, leading to tooth decay. It is important to treat your tooth decay as soon as possible. Untreated dental caries can spread decay and lead to painful infection. Brushing regularly with fluoride toothpaste (oral hygiene) and getting regular dental checkups can help prevent dental caries. What are the causes? Dental caries are caused by the acid that is produced when bacteria break down sugary or acidic foods and drinks. What increases the risk? This condition is more likely to develop in young adults. This condition is also more likely to develop in people who: Drink a lot of sugary liquids, including alcoholic drinks, such as champagne. Eat a lot of sweets and carbohydrates. Drink water that is not treated with fluoride. Have poor oral hygiene. Have deep grooves in their teeth. Take certain medicines that decrease saliva. What are the signs or symptoms? Symptoms of dental caries include: White, brown, or black spots on the teeth. Pain. Swollen or bleeding gums. How is this diagnosed? Your dentist may suspect dental caries from your signs and symptoms. The dentist will also do an oral exam. This may include X-rays to confirm the diagnosis. Sometimes lights, a thin probe, and dyes are used to find dental caries (using electrical conductivity or using laser reflection). How is this treated? Treatment for dental caries usually involves a procedure to remove the decay and restore the tooth with a filling or a sealant. Follow these instructions at home: Practice good oral hygiene. This keeps your mouth and gums healthy. Use fluoride toothpaste to brush your teeth twice a day, and floss once a day. If your dentist prescribed an antibiotic medicine to treat an infection, take it as told by your dentist. Do not stop taking the antibiotic even if your condition improves. Keep all follow-up visits as told by your dentist. This is important. This includes all cleanings. How is this prevented? To prevent dental caries: Gill your teeth every morning and night with fluoride toothpaste. Get regular dental cleanings. If you are at risk of dental caries, wash your mouth with prescription mouthwash (chlorhexidine) and apply topical fluoride to your teeth. Drink fluoridated water regularly. Drink water instead of sugary drinks. Eat healthy meals and snacks. Contact a health care provider if: You have symptoms of tooth decay. This information is not intended to replace advice given to you by your health care provider. Make sure you discuss any questions you have with your health care provider. Document Released: 10/14/2002 Document Revised: 01/04/2018 Document Reviewed: 08/04/2016 [employer] Patient Education 2020 [employer]. Follow Up Care 10/16/2021 20:06:09 With:Dental: [facility] [phone] Address:Unknown When:10/19/2021 21:25:41 With:Dental: [facility] [phone] Address:Unknown When:10/19/2021 21:25:40 With:Dental: [facility] [phone] Address:Unknown When:10/19/2021 21:25:39 [facility]08-10-2022 Evaluation + Plan noteExtracted from: Title:ED Note Author:Colby Ayers PA-C te:09/14/21 Pain, dental (K08.89: Other specified disorders of teeth and supporting structures) Orders: naproxen, 500 mg = 1 tab(s), Oral, BID, # 20 tab(s), Refills(s) 0, Pharmacy: [facility]/pharmacy #[id number], 165.1, cm, 06/07/21 7:55:00 EDT, Height/Length Dosing, 83.6, kg, 06/07/21 7:55:00 EDT, Weight Dosing penicillin V potassium, 500 mg = 1 tab(s), Oral, TID, Take one tab by mouth 3 times a day. # 30, X 10 day(s), # 30 tab(s), Refills(s) 0, Pharmacy: [facility]/pharmacy #[id number], 165.1, cm, 06/07/21 7:55:00 EDT, Height/Length Dosing, 83.6, kg, 06/07/21 7:55:00 EDT, Weight Dosing [facility]08-10-2022 Hospital Discharge instructions Patient Education 09/14/2021 08:17:40 Dental Pain Dental Pain Dental pain may be caused by many things, including: Tooth decay (cavities or caries). Cavities expose the nerve of your tooth to air and to hot or coldtemperatures. This can cause pain or discomfort. Abscess or infection. A dental abscess is a collection of pus from a bacterial infection in the inner part of the tooth (pulp). It usually occurs at the end of the root of a tooth. Injury. An unknown reason (idiopathic). Your pain may be mild or severe. It may occur when you are: Chewing. Exposed to hot or cold temperatures. Eating or drinking sugary foods or beverages, such as soda or candy. Your pain may be constant, or it may come and go without cause. Follow these instructions at home: Watch your dental pain for any changes. The following actions may help to lessen any discomfort that you are feeling: Medicines Take ydkx-vfz-zrvfziv and prescription medicines only as told by your health care provider. If you were prescribed an antibiotic medicine, take it as told by your health care provider. Do notstop taking the antibiotic even if you start to feel better. Eating and drinking Avoid foods or drinks that cause you pain, such as: ?Very hot or very cold foods or drinks. ?Sweet or sugary foods or drinks. Managing pain and swelling Apply ice to the painful area of your face: ?Put ice in a plastic bag. ?Place a towel between your skin and the bag. ?Leave the ice on for 20 minutes, 2 3 times a day. Brushing your teeth To keep your mouth and gums healthy, use fluoride toothpaste to brush your teeth twice a day. Flossonce a day. Use a toothpaste made for sensitive teeth if directed by your health care provider. Gill your teeth with a soft-bristled toothbrush. General instructions Do not apply heat to the outside of your face. Gargle with a salt-water mixture 3 4 times a day or as needed. To make a salt- water mixture, completely dissolve 1 tsp of salt in 1 cup of warm water. Keep all follow-up visits as told by your health care provider. This is important. Apply ice to the outside of your jaw if there is swelling. Do not put ice directly on the skin. Contact a health care provider if: Your pain is not controlled with medicines. Your symptoms get worse. You have new symptoms. Get help right away if you: Are unable to open your mouth. Are having trouble breathing or swallowing. Have a fever. Notice that your face, neck, or jaw is swollen. Summary Dental pain may be caused by many things, including tooth decay and infection. Your pain may be mild or severe. Take bqzx-ldm-cqecjis and prescription medicines only as told by your health care provider. Watch your dental pain for any changes. Let your health care provider know if symptoms get worse. This information is not intended to replace advice given to you by your health care provider. Make sure you discuss any questions you have with your health care provider. Document Released: 01/22/2006 Document Revised: 05/20/2019 Document Reviewed: 12/13/2017 [employer] Patient Education 2020 [employer]. Follow Up Care 09/14/2021 08:05:08 With:Dental: [facility] [phone] Address:Unknown When:09/17/2021 08:10:39 With:Dental: [facility] [phone] Address:Unknown When:09/17/2021 08:10:38 With:Dental: [facility] [phone] Address:Unknown When:09/17/2021 08:10:37 [facility]05-04-2022 Evaluation + Plan noteExtracted from: Title:OB Inpatient Progress note Auth or:Ras Miller MD Date:06/08/21 Impression and Plan Plan Routine care. Course: Progressing as expected. [facility]05-03-2022 Hospital Discharge instructions Follow Up Care 06/07/2021 07:07:01 With:Dr. 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 [facility]21 [facility] Diagnosis Supervision of normal intrauterine in multigravida, first trimester [facility]* Diagnosis care, subsequent , first trimester- Primary 12 weeks gestation of documented in [facility]* Diagnosis Encounter for medical examination to establish care- Primary Bipolar depression (CMS/HCC) Bipolar I disorder, most recent episode (or current) depressed, unspecified Anxiety Anxiety state, unspecified Attention deficit hyperactivity disorder (ADHD), combined type (CMS/HCC) PTSD (post-traumatic stress disorder) (CMS/HCC) Posttraumatic stress disorder History of anemia Personal history of diseases of blood and blood-forming organs Screening for heart disease Screening for other and unspecified cardiovascular conditions Wheezing COVID-19 Skin lesion of left arm Unspecified disorder of skin and subcutaneous tissue [facility]* Diagnosis Anemia, unspecified type- Primary [facility] noteNo assessment information availableOhio[facility] Work Phone: Evaluation note* Diagnosis Missed menses , unspecified gestational age Encounter for supervision of normal first in first trimester documented in this encounter [facility] Narrative No data available for this section [facility] No data available for this section [facility] No data available for this section [facility] for referral (narrative)* Consultation (Routine) - Authorized Specialty Diagnoses / Procedures Referred By Contac t Referred To Contact Dermatology Diagnoses Skin lesion of left arm Procedures SD OFFICE/OUTPATIENT NEW HIGH MDM 60 MINUTES Mak Jordan NP [address] [place] [address] Referral ID Status Reason Start Date Expiration Date Visits Requested Visits Authorized [id number] Authorized Specialty Services Required 10/16/2023 04/13/2024 1 1 * Consultation (Routine) - Pending Review Specialty Diagnoses / Procedures Referred By Dulce hughes Referred To Contact Psychiatry Diagnoses Bipolar depression ([facility]/HCC) Anxiety Attention deficit hyperactivity disorder (ADHD), combined type (CMS/HCC) PTSD (post-traumatic stress disorder) ([facility]/HCC) Procedures SD OFFICE/OUTPATIENT NEW HIGH MDM 60 MINUTES Mak Jordan NP [address] [place] [address] Referral ID Status Reason Start Date Expiration Date Visits Requested Visits Authorized [id number] Pending Review Specialty Services Required 10/16/2023 04/13/2024 1 1 [facility] Healthcare Summary Purpose Family History No Family History Records Found Relationship Condition Age at Onset Recorded Date/T ruth father Malignant neoplasm Unknown Unknown Advance Directives No Advanced Directives Records Found Advance Directive Response Recorded Date/ Time Advance Directives No March 2:16pm Chief Complaint and Reason for Visit Chief Complaint Admit Date BH January 02, 2024 9:07am right knee pain April 01, 2024 2:16pm Additional Source Comments INFORMATION SOURCE (unrecogn ized section and content) DATE CREATED AUTHOR 11/05/2020 [facility] DATE CREATED AUTHOR AUTHOR'S ORGANIZ ATION 07/10/2023 [facility] DATE CREATED AUTHOR AUTHOR'S ORGANIZ ATION 07/12/2023 [facility] DATE CREATED AUTHOR AUTHOR'S ORGANIZ ATION 07/20/2023 [facility] DATE CREATED AUTHOR AUTHOR'S ORGANIZ ATION 07/21/2023 [facility] DATE CREATED AUTHOR AUTHOR'S ORGANIZ ATION 07/27/2023 [facility] DATE CREATED AUTHOR AUTHOR'S ORGANIZ ATION 09/08/2023 [facility] DATE CREATED AUTHOR AUTHOR'S ORGANIZ ATION 09/12/2023 [facility] DATE CREATED AUTHOR AUTHOR'S ORGANIZ ATION 09/14/2023 [facility] DATE CREATED AUTHOR AUTHOR'S ORGANIZ ATION 09/15/2023 [facility] DATE CREATED AUTHOR AUTHOR'S ORGANIZ ATION 09/21/2023 [facility] DATE CREATED AUTHOR AUTHOR'S ORGANIZ ATION 01/15/2024 [facility] DATE CREATED AUTHOR AUTHOR'S ORGANIZ ATION 04/03/2024 [facility] DATE CREATED AUTHOR AUTHOR'S ORGANIZ ATION 05/12/2024 [facility] EPIC Patient Care team informatio n (unrecognized section and content) 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 Relationship Specialty Start Date End Date Sadie Thomas MD [address] [place] [address] PCP - General Family Medicine 10/22/23 Mak Jordan NP [address] [place] [address] Nurse Practitioner Family Medicine 10/22/23 Team Status: Active Member Role Status Dates John Paul Lovell MD Primary Care Provider Active Team Status: Active Member Role Status Dates John Paul Lovell MD Primary Care Provider Active St art: January 02, 2024 Wil Rider MD Attending Provider Active Start: January 02, 2024 Team Status: Inactive Member Role Status Dates John Paul Lovell MD Primary Care Provider Active St art: April 01, 2024 End: April 01, 2024 Ofelia Delacruz APRN Attending Provider Active Start: April 01, 2024 End: April 01, 2024 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 Relationship Specialty Start Date End Date Unallocated, Sheryl Domingo MD [address] [place] [address] PCP - General 07/19/22 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 Relationship Specialty Start Date End Date Unallocated, [place] Provider [address] [place] [address] PCP - General 07/19/22 Personnel Name: LLC, GENERIC Name: Kourtney LEMONS Address: Address: [facility], [address] Personnel Name: NONE, XXXX Address: Address: [facility] [place] Name: Kourtney LEMONS Address: Address: [facility] [address], [address] Personnel Name: Vijay PACHECO MD Address: Address: [address] [place] [address] Personnel Name: Holli Moctezuma DO Address: Address: [address] [place] [address] Kirsty, [facility], [facility] [address] Reason for Visit (unrecogniz ed section and content) Reason Comments Establish Care ADHD Reason Comments Amenorrhea Goals (unrecognized section and content) Goals may be documented in a n alternate section FOR RECORDS PERTAINING TO PATIENTS WHO ARE OR HAVE BEEN ENROLLED IN A CHEMICAL DEPENDENCY/SUBSTANCEABUSE PROGRAM, SOME INFORMATION MAY BE OMITTED. This clinical summary was aggregated from multiple sources. Caution should be exercised in using it in the provision of clinical care. This summary normalizes information from multiple sources, and as a consequence, information in this document may materially change the coding, format and clinical context of patient data. In addition, data may be omitted in some cases. CLINICAL DECISIONS SHOULD BE BASED ON THE PRIMARY CLINICAL RECORDS. [facility] [employer] provides no warranty or guarantee of the accuracy or completeness of information in this document.
--- NOTE | 2024-05-16 21:49 | ED.SOB1 ---
HPI - SOB/Dyspnea General Chief Complaint: Shortness of Breath/Dyspnea Stated Complaint: Shortness of breath Time Seen by Provider: 05/16/24 21:27 Source: patient Mode of arrival: walk-in Limitations: no limitations History of Present Illness HPI Narrative: CC - SHORTNESS OF BREATH Pt states that after vacuuming tonight she suddenly had difficulty breathing. She was concerned that she might have inhaled some dust fromt he vacuum. No prior history of asthma - does not use inhaler at home. She denied any recent injury to the chest. No swelling of the tongue or throat. No difficulty swallowing or talking. She said that she is about 19 weeks . No fever or chills No cough She was diagnosed with ear infection about a week ago and started an amoxicillin Rx but stopped after a rash developed. She did not seek care after that and was not started on any additional antibiotic. Related Data Home Medications ?Medication ?Instructions ?Recorded ?Confirmed No Known Home Medications 01/02/24 01/02/24 Allergies Allergy/AdvReac Type Severity Reaction Status Date / Time amoxicillin (From Amoxil) Allergy hives Verified 05/16/24 21:35 PFSH PFSH Social History Little interest or pleasure in doing things: not at all Feeling down, depressed, or hopeless: not at all Exam Narrative Exam Narrative: Nurses notes and vital signs reviewed and patient is not hypoxic. afebrile General: Well-appearing and in no apparent distress. Skin: Warm, dry, no pallor noted. No rash. Head: Normocephalic, atraumatic. Neck: Supple, non-tender. No anterior meck mass Eye: Pupils are equal, round and EOMI. No scleral icterus. Ears, Nose, Mouth, and Throat: Oral mucosa is moist. No trismus or drooling. Cardiovascular: Regular Rate and Rhythm without murmur, gallop or rub. Respiratory: No accessory muscle use or respiratory distress. Equal air exchange without stridor when she breathes through her nose. Lungs are clear to auscultation, no wheezing, rales or rhonchi when she breathes through her nose. However, when she phonates, she has an intermittent forced exhalation with stridor-like sound Musculoskeletal: normal ROM Neurological: A&O x4. No cranial nerve dysfunction observed. No truncal ataxia. Moves all extremities. Sensation intact. Psychiatric: Cooperative and interactive. Normal mood and affect. Constitutional Vital Signs, click to edit/add: Last Vital Signs Temp 98 F 05/16/24 21:31 Pulse 78 05/16/24 22:02 Resp 24 H 05/16/24 22:02 BP 119/61 05/16/24 21:31 Pulse Ox 99 05/16/24 22:02 O2 Del Method Room Air 05/16/24 22:02 Course Vital Signs Vital signs: Vital Signs Temperature 98 F 05/16/24 21:31 Pulse Rate 66 05/16/24 21:31 Respiratory Rate 20 05/16/24 21:31 Blood Pressure 119/61 05/16/24 21:31 Pulse Oximetry 97 05/16/24 21:31 Oxygen Delivery Method Room Air 05/16/24 21:31 Temperature 98 F 05/16/24 21:31 Pulse Rate 78 05/16/24 22:02 Respiratory Rate 24 H 05/16/24 22:02 Blood Pressure 119/61 05/16/24 21:31 Pulse Oximetry 99 05/16/24 22:02 Oxygen Delivery Method Room Air 05/16/24 22:02 MDM - SOB/Dyspnea MDM Narrative Medical decision making narrative: Patient is about 19 weeks , she told me, so she was shielded for her chest x-ray. She was given IM Solu-Medrol and a DuoNeb treatment to try and help with her subjective sensation of shortness of breath. No infiltrate, consolidation, effusion, pneumothorax or other acute cardiopulmonary abnormality noted. No cardiomegaly. No widened mediastinum. Triage nurse obtained EKG. No worrisome EKG abnormalities noted Pt reported feeling better after ED treatment and was discharged home. Imaging Data Chest x-ray: Attestation: I personally reviewed and interpreted this imaging study as follows: My impression: no acute cardiopulmonary abnormality ECG Data Attestation: I personally reviewed and interpreted this ECG as follows: Interpretation: EKG interpretation: Emergency Department physician interpretation. Normal sinus rhythm at 75bpm. Normal axis, normal intervals and nonspecific T wave changes/biphasic T wave. No ST segment elevation. Discharge Plan Discharge Chief Complaint: Shortness of Breath/Dyspnea Clinical Impression: Mild reactive airways disease Patient Disposition: Home, Self-Care Time of Disposition Decision: 22:32 Prescriptions / Home Meds: No Action No Known Home Medications Print Language: Armenian Instructions: Reactive Airways Disease (ED) Referrals: Physician,Non-Staff, MD [Primary Care Provider] - 1 week
[2024-05-16] MEDS: METHYLPREDNISOLONE SOD SUCC PF 125 MG/2 ML VIAL IM (21:56)
[2024-05-16] MEDS: IPRATROPIUM/ALBUTEROL SULFATE 3 ML AMPUL.NEB IH (22:00)
[2024-05-16 22:02] VITALS: PULSE 78; O2SAT 99
--- NOTE | 2024-05-16 22:05 | ECG_ITS ---
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 Measurements Intervals [place] Rate: 75 P: 71 WA: 168 QRS: 82 QRSD: 86 T: 22 QT: 384 QTc: 413 Interpretive Statements [address] & Twave abnormality Abnormal ECG Compared to ECG 05/29/2016 23:14:19 Sinus arrhythmia no longer present Nonspecific ST & Twave abnormality is now present Electronically Signed On 05-17-2024 10:40:06 EDT by SAM ZIMMERMAN M.D.
[2024-05-16 22:44] VITALS: BP 116/72; PULSE 76; O2SAT 99
== END 2024-05-16 22:45 | disposition home or self-care (01) ==
PROVIDERS: Emergency Provider Emergency Medicine
DX: J45.909 Unspecified asthma, uncomplicated (principal); R06.09 Other forms of dyspnea; R06.02 Shortness of breath
CPT/HCPCS: 71045; 93005; 94640; 96372; 99285; J2919

== ENCOUNTER 2024-05-19 04:01 | Emergency (ER) | payer MEDICAID, SELFPAY ==
[2024-05-19 04:05] VITALS: BP 95/57; PULSE 81; TEMP 36.8; O2SAT 99; BMI 28.2
--- OUTSIDE RECORDS SUMMARY | 2024-05-19 04:07 | XMS_ITS | CCD ---
Author Organization [facility] Care Team Providers Care Lab Technician Name Role Phone WAN VASQUEZ Consulting Unavailable JUANCHO, DR RUIZ Primary Care Unavailable KUNAL FRANK Attending Unavailable KUNAL FRANK Admitting Unavailable CY HERNANDEZ Consulting Unavailable KUNAL FARNK Consulting Unavailable NONE, XXXX Primary Care Physician Holli Garvin Primary Care Physician Vijay PACHECO Primary Care Physician Kourtney PIERCE Unavailable [facility] Primary Care Physician Eamon Stahllocatmeseret, Noms Provider Primary Care Provider Ras Miller Attending Unavailable Jerry WILSON Admitting Unavailable HELIO PIERCE Attending Unavaila ble PIERCEHELIO Admitting Unavaila ble DO Magalis Snow Attending Unavaila DO Magalis Acevedo Admitting Unavaila ble Alon Johnson Attending Unavailable Alon Johnson Admitting Unavailable Steven [...] Medication Allergies] Propensity to adverse reactions (disorder) [facility] Repository Medications Current Medications Medication Drug Class(es) Dates Sig (Normalized) Sig (Original) acetaminophen 325 mg oral tablet (3 sources) Start: 09-11-2023 take 3 tablets by mouth every eight hours as needed for headache acetaminophen 325 mg Tab 975 mg = 3 tab(s), Oral, q8hr, PRN Headache, # 90 tab(s), Refills(s) 1, Pharmacy: [facility], 165.1, cm, 09/10/23 21:47:00 EDT, Height/Length Dosing, 84.5, kg, 09/10/23 21:47:00 EDT, Weight Dosing Start Date: 09/11/23 Status: Ordered [id number] 200 actuat albuterol 0.09 mg/actuat metered dose [...] for 10 day(s), 20 tab(s), Refill(s) 0, [facility]/pharmacy #[id number], 165.1, cm, 10/30/22 10:55:00 EDT, Height/Length [...] oral solution (1 source) alpha-Adrenergic Agonist, Uncompetitive M-vzoigz-M-asparta te Receptor Antagonist, Sigma-1 Agonist Start: 01-01-2023 End: 01-08-2023 take 5 mL by mouth every six hours brompheniramine/de xtromethorphan/PSE 2 mg-10 mg-30 mg/5 mL oral syrup 5 mL, Oral, q6hr for cold symptoms for 7 day(s), 140 mL, Refill(s) 0, [facility]/pharmacy #[id number], 165, cm, 01/01/23 15:53:00 EST, Height/Length [...] day(s), # 14 cap(s), Refills(s) 0, Pharmacy: [facility] #[id number], 165, cm, 01/05/22 7:56:00 EST, Height/Length Dosing, 74.1, kg, 01/05/22 7:56:00 EST, Weight Dosing Start Date: 01/05/22 Stop Date: 01/12/22 Status: Ordered docusate sodium 100 mg oral capsule (3 sources) Start: 09-11-2023 take 1 capsule by mouth twice daily docusate sodium 100 mg Cap 100 mg = 1 cap(s), Oral, BID, # 30 cap(s), Refills(s) 1, Pharmacy: [facility], 165.1, cm, 09/10/23 21:47:00 EDT, Height/Length Dosing, 84.5, kg, 09/10/23 21:47:00 EDT, Weight Dosing Start Date: 09/11/23 Status: Ordered ferrous sulfate 325 mg oral tablet (10 sources) Start: 09-11-2023 ferrous sulfate 325 mg Tab 325 mg = 1 tab(s), Oral, BIDWM, # 60 tab(s), Refills(s) 5, Pharmacy: [facility], 165.1, cm, 09/10/23 21:47:00 EDT, Height/Length Dosing, 84.5, kg, 09/10/23 21:47:00 EDT, Weight Dosing Start Date: 09/11/23 Status: Ordered Start: 06-09-2021 take 1 tablet by leslie th once daily Slow Fe (as elemental iron) 45 mg oral tablet, extended release 45 mg = 1 tab(s), Oral, Daily, # 30 tab(s), Refills(s) 1, [id number] 165.1, cm, 06/07/21 7:55:00 EDT, Height/Length Dosing, 83.6, kg, 06/07/21 7:55:00 EDT, Weight Dosing Start Date: 06/09/21 Status: Ordered ibuprofen 600 mg oral tablet (20 sources) Nonsteroidal Anti-inflammatory Drug Start: 09-11-2023 take 1 tablet by mouth every six hours as needed ibuprofen 600 mg Tab 600 mg = 1 tab(s), Oral, q6hr, PRN Other (see comment), # 60 tab(s), Refills(s) 1, Pharmacy: [place] [id number], 165.1, cm, 09/10/23 21:47:00 EDT, Height/Length Dosing, 84.5, kg, 09/10/23 21:47:00 EDT, Weight Dosing Start Date: 09/11/23 Status: Ordered Start: 08-09-2022 take 1 tablet by leslie every six hours ibuprofen 600 mg Tab 600 mg = 1 tab(s), Oral, q6hr, # 40 tab(s), Refills(s) 0, Pharmacy: [facility] #[id number], 165.1, cm, 08/07/22 17:54:00 EDT, Height/Length Dosing, 84.5, kg, 08/07/22 17:54:00 EDT, Weight Dosing Start Date: 08/09/22 Status: Ordered Start: 06-09-2021 take 1 tablet by leslie every six hours ibuprofen 600 mg Tab 600 mg = 1 tab(s), Oral, q6hr, # 15 tab(s), Refills(s) 0, Pharmacy: [facility]/pharmacy #[id number], 165.1, cm, 06/07/21 7:55:00 EDT, Height/Length Dosing, 83.6, kg, 06/07/21 7:55:00 EDT, Weight Dosing Start Date: 06/09/21 Status: Ordered Start: 01-28-2020 take 1 tablet by leslie every eight hours ibuprofen 600 mg Tab 600 mg = 1 tab(s), Oral, q8hr, # 42 tab(s), Refills(s) 1, Pharmacy: [facility] #[id number], 169, cm, 01/27/20 13:57:00 EST, Height/Length Dosing, [...] day(s), # 28 tab(s), Refills(s) 0, Pharmacy: [facility] #[id number], 165, cm, 10/16/21 20:16:00 EDT, Height/Length Dosing, 75.2, kg, 01/02/22 12:43:00 EST, Weight Dosing Start Date: 01/02/22 Stop Date: 01/09/22 Status: Ordered Start: 10-26-2020 take 1 tablet by leslie th every six hours as needed for nausea Reglan 10 mg Tab 10 mg = 1 tab(s), Oral, q6hr, PRN Nausea, # 10 tab(s), Refills(s) 0, Pharmacy: [facility] #[id number], 168, cm, 10/26/20 13:25:00 EDT, Height/Length Dosing, 75, kg, 10/26/20 13:25:00 EDT, Weight Dosing Start Date: 10/26/20 Status: Ordered naproxen 500 mg oral tablet (9 sources) Nonsteroidal Anti-inflammatory Drug Start: 09-14-2021 take 1 tablet by mouth twice daily as needed for pain Naprosyn 500 mg Tab 500 mg = 1 tab(s), Oral, BID, PRN Pain, # 20 tab(s), Refills(s) 0, [id number] 165, cm, 10/16/21 20:16:00 EDT, Height/Length [...] day(s), # 10 cap(s), Refills(s) 0, [id number] 165, cm, 02/13/23 14:25:00 EST, Height/Length [...] Nausea/Vomiting, # 6 tab(s), Refills(s) 0, Pharmacy: [facility] #[id number], 168, cm, 10/26/20 13:25:00 EDT, Height/Length Dosing, 75, kg, 10/26/20 13:25:00 EDT, Weight Dosing Start Date: 10/26/20 Status: Ordered Start: 10-26-2020 take 1 tablet by leslie th every eight hours as needed for nausea ondansetron 8 mg Dis Tab 8 mg = 1 tab(s), Oral, q8hr, PRN Nausea/Vomiting, # 6 tab(s), Refills(s) 0, Pharmacy: [facility] #[id number], 168, cm, 10/26/20 13:25:00 EDT, Height/Length Dosing, 75, kg, 10/26/20 13:25:00 EDT, Weight Dosing Start Date: 10/26/20 Status: Ordered penicillin v potassium 500 mg oral tablet (5 sources) Start: 10-16-2021 take 1 tablet by mouth every six hours penicillin V potassium 500 mg Tab 500 mg = 1 tab(s), Oral, q6hr, # 28 tab(s), Refills(s) 0, Pharmacy: [facility]/pharmacy #[id number], 165, cm, 10/16/21 20:16:00 EDT, Height/Length [...] day(s), # 30 tab(s), Refills(s) 0, Pharmacy: [facility]/pharmacy #[id number], 165.1, cm, 06/07/21 7:55:00 EDT, Height/Length [...] day(s), # 30 supp, Refills(s) 0, Pharmacy: [facility]/pharmacy #[id number], 165, cm, 02/13/23 14:25:00 EST, Height/Length Dosing, 69.5, kg, 02/13/23 14:25:00 EST, Weight Dosing Start Date: 02/13/23 Stop Date: 02/18/23 Status: Ordered Start: 01-23-2023 take 25 mg rectal ro elim ira every six hours as needed for nausea promethazine 25 mg Supp 25 mg = 1 supp, Rectal, q6hr, PRN for nausea/vomiting, # 12 supp, Refills(s) 0 Start Date: 01/23/23 Status: Ordered Start: 01-05-2022 take 1 tablet by leslie th three times daily promethazine 25 mg Tab 25 mg = 1 tab(s), Oral, TID, # 15 tab(s), Refills(s) 0, [id number], 165, cm, 01/05/22 7:56:00 EST, Height/Length Dosing, 74.1, kg, 01/05/22 7:56:00 EST, Weight Dosing Start Date: 01/05/22 Status: Ordered Zofran ODT 4 mg Tab-Dis (14 sources) Start: 02-13-2023 End: 02-15-2023 take 1 tablet by mouth every eight hours Zofran ODT 4 mg Tab-Dis 4 mg = 1 tab(s), Oral, q8hr, X 2 day(s), # 6 tab(s), Refills(s) 0, Pharmacy: [facility]/pharmacy #[id number], 165, cm, 02/13/23 14:25:00 EST, Height/Length Dosing, 69.5, kg, 02/13/23 14:25:00 EST, Weight Dosing Start Date: 02/13/23 Stop Date: 02/15/23 Status: Ordered Start: 01-23-2023 take 1 tablet by leslie th three times daily Zofran ODT 4 mg Tab-Dis 4 mg = 1 tab(s), Oral, TID, # 15 tab(s), Refills(s) 0 Start Date: 01/23/23 Status: Ordered Start: 01-18-2022 take 1 tablet by leslei th every eight hours as needed for nausea Zofran ODT 4 mg Tab-Dis 4 mg = 1 tab(s), Oral, q8hr, PRN Nausea/Vomiting, # 20 tab(s), Refills(s) 0, Pharmacy: [facility] #[id number], 165.1, cm, 01/18/22 1:14:00 EST, Height/Length Dosing, [...] breath or wheezing, 1 EA, Refill(s) 0, [facility] #[id number], 168.2, cm, 08/17/20 15:12:00 EDT, Height/Length Dosing, [...] II, MD, PHD at 11-May-2024 10:37:55 PM [facility] Normal Not Available Comment on above: Order Comment: US OB TRANSVAGINAL No LMP recorded. Urinalysis macro (dipstick) panel (U)on 05-09-2024 Bilirubin, UA Negative Negative - 4(70) +++ mg/dL [facility] Blood, UA Negative Negative - 50 Eliseo/mcL [facility] Clarity, UA Clear [facility] Color, UA Yellow [facility] Glucose, UA Negative Negative - 1999(110) ++++ mg/dL [facility] Interpretation and review of laboratory results Abnormal [facility] Ketones, UA Negative Negative - 160(16) ++++ mg/dL [facility] Leukocytes, UA Positive Negative - 500+++ Jeremias/mcL [facility] Comment on above: small Nitrite, UA Negative Negative - Positive [facility] pH, UA 7 5 - 9 [facility] Protein, UA Negative Negative - 2000(20) ++++ mg/dL [facility] Spec Grav, UA 1.025 1 - 1.03 [facility] Urobilinogen, UA 0.2 0.2 - 12 mg/dL [facility] Chlamydia/Gonococcus, NAAon 01-12-2024 C. trachomatis rRNA TIM+probe Ql (Unsp spec) Negative Invalid Interpretation Code Negative [facility] Comment on above: Performed By: #### 1 [id number] #### [facility] [address] [place] [address] N. gonorrhoeae rRNA TIM+probe Ql (Unsp spec) Negative Invalid Interpretation Code Negative [facility] Comment on above: Result Comment: Perf ormed at: =G [facility] [address] [facility] [place], [place] [id number] MD Rodriguez Briones Performed By: #### 1 [id number] #### [facility] [address] [place] [address] CBC w/Indiceson 09-12-2023 Basophilic stippling LM Ql (Bld) PRESENT Invalid Interpretation Code [facility] Comment on above: Performed By: #### 2 [id number] ####[facility] [address] [place] [address] Erythrocyte distribution width (RBC) [Ratio] 16.6 % High 10.9-14.2 [facility] Comment on above: Performed By: #### 2 [id number] ####[facility] [address] [place] [address] Hematocrit (Bld) [Volume fraction] 23.6 % Low 34.0-46.0 [facility] Comment on above: Performed By: #### 2 [id number] ####[facility] [address] [place] [address] Hemoglobin (Bld) [Mass/Vol] 7.6 g/dL Low 12.0-16.0 [facility] Comment on above: Performed By: #### 2 [id number] ####[facility] [address] [place] [address] Hypochromia Auto Ql (Bld) PRESENT Invalid Interpretation Code [facility] Comment on above: Performed By: #### 2 [id number] ####[facility] [address] [place] [address] MCH (RBC) [Entitic mass] 21.8 pg Low 27.0-34.0 [facility] Comment on above: Performed By: #### 2 [id number] ####[facility] [address] [place] [address] MCHC (RBC) [Mass/Vol] 32.3 g/dL Normal 31.4-36.0 [facility] Comment on above: Performed By: #### 2 [id number] ####[facility] [address] [place] [address] MCV (RBC) [Entitic vol] 67.6 fL Low 80.0-100.0 [facility] Comment on above: Performed By: #### 2 [id number] ####[address] [address] Microcytes Ql (Bld) PRESENT Invalid Interpretation Code [facility] Comment on above: Performed By: #### 2 [id number] ####[address] [address] Platelet 202.0 E9/L Normal 150.0-500.0 [facility] Comment on above: Performed By: #### 2 [id number] ####[facility] [address] [place] [address] Platelet mean volume (Bld) [Entitic vol] 9.2 fL Normal 6.4-10.8 [facility] Comment on above: Performed By: #### 2 [id number] ####[address] [address] Platelets Large LM Ql (Bld) PRESENT Invalid Interpretation Code [facility] Comment on above: Performed By: #### 2 [id number] ####[facility] [address] [place] [address] Polychromasia LM Ql (Bld) PRESENT Invalid Interpretation Code [facility] Comment on above: Performed By: #### 2 [id number] ####[facility] [address] [place] [address] RBC (Bld) [#/Vol] 3.5 E12/L Low 4.3-5.9 [facility] Comment on above: Performed By: #### 2 [id number] ####[facility] [address] [place] [address] RBC size Nom (Bld) NORMAL Invalid Interpretation Code [facility] Comment on above: Performed By: #### 2 [id number] ####[facility] [address] [place] [address] WBC corrected for nucl RBC Auto (Bld) [#/Vol] 10.0 E9/L Normal 4.0-11.0 [facility] Comment on above: Performed By: #### 2 538251 ####[facility] [address] [place] [address] HEMATOLOGYOrdered By: SYSTEM SYSTEM on 09-12-2023 Basophilic [...] Dr. ConradCPT code 85/60 Invalid Interpretation Code [facility] HemeManSS Inpatient Clinical Summaryon 09-12-2023 Inpatient Clinical Summary Inpatient Clinical Summary [address] [address] Clinical Summary Person Information Name: JORDIN TYLER Kristan/[facility] Age: 18 Years : 2005 Sex: Female PCP: NONE, XXXX Marital Status: Single Phone: [phone] Race: White Ethnicity: Non- or Language: Afghan Visit Id: Visit Reason: INDUCED Speciality: Acuity: 1 PP Enc Type: Inpatient Med Service: Obstetrics Arrival: 09/10/2023 21:01:27 Discharge: 09/12/2023 18:05:00 Dispo Type: Home (Routine DC) Address: [address] [place] [address] [address] [facility] [id number] Provider Notes: Diagnosis: Anemia affecting , antepartum; [...] Ketones: Negative mg/dL UA Leuk Est: Negative Jreemias/uL UA Nitrite: Negative mg/dL UA Protein: Negative [...] Follow up: With: Address: When: Magalis Snow [address] [place], [place] [address]Lucas Larsen[address] [address] Business (1) Within 6 weeks Patient Education Information: Care After Vaginal Delivery; Anemia Normal [facility] Inpatient Clinical Summary Inpatient Clinical Summary [address] [address] Clinical Summary Person Information Name: JORDIN TYLER Kristan/[facility] Age: 18 Years : 2005 Sex: Female PCP: NONE, XXXX Marital Status: Single Phone: [phone] Race: White Ethnicity: Non- or Language: Afghan Visit Id: Visit Reason: INDUCED Speciality: Acuity: 1 PP Enc Type: Inpatient Med Service: Obstetrics Arrival: 09/10/2023 21:01:27 Discharge: Dispo Type: Address: [address] [place] [address] [address] [facility] [id number] Provider Notes: Diagnosis: Anemia affecting , antepartum; [...] Follow up: With: Address: When: Magalis Snow [address] [place], [place] [address]Lucas sweeney [place] [phone] Business (1) Within 6 weeks Patient Education Information: Care After Vaginal Delivery; Anemia Normal [facility] Inpatient Patient Summaryon 09-12-2023 Inpatient Patient Summary Inpatient Patient Summary [address] [address] Patient Discharge Instructions PERSON INFORMATION [...] Follow up: With: Address: When: Lucas Wetzel, [facility] [address] [address] Business (1) Within 6 weeks In the event that this physician does not participate in your insurance network, please consult with your insurance company to find a nearby participating provider. Comment: JAYSON Suárez SHIANNE A, have received the attached patient education materials/instructi ons and have verbalized understanding. Patient Signature Date Clinican/Nurse Signature Date MEDICATION LIST New Medications [facility], [address] [facility][Note 2] [address] [place], [place] [id number], [phone] acetaminophen (acetaminophen 325 mg Tab) 3 Tablets [...] redness, swelling, (more content not included)... Normal [facility] Inpatient Patient Summary Inpatient Patient Summary [address] [address] Patient Discharge Instructions PERSON INFORMATION [...] Follow up: With: Address: When: Lucas Wetzel, [place] [phone] Business (1) Within 6 weeks In the event that this physician does not participate in your insurance network, please consult with your insurance company to find a nearby participating provider. Comment: JAYSON Suárez SHIANNE A, have received the attached patient education materials/instructi ons and have verbalized understanding. Patient Signature Date Clinican/Nurse Signature Date MEDICATION LIST New Medications [facility], [address] [facility][Note 2] Dr [place], [place] [id number], [phone] acetaminophen (acetaminophen 325 mg Tab) 3 Tablets [...] redness, swelling, (more content not included)... Normal [facility] Path. Reviewon 09-12-2023 Path Review Hypochromic microcytic anemia with anisocytosis rule out iron deficiency Invalid Interpretation Code [facility] Comment on above: Performed By: #### 1 [id number] #### [facility] [address] [place] [address] Surgical Pathology Reporton 09-12-2023 Surgical Pathology Report [facility] [address] [facility] [place] [address]- Surgical Pathology Report Collected Date/Time: 09/11/2023 05:58 [...] is scattered throughout the entire placental tissue. Swim Instructor portion is submitted in four cassettes: 1 - Cord and membrane 2-4 - Swim Instructor sections of placenta parenchyma (DC) DC:MCA Microscopic Description Microscopic examination performed unless gross only specified. Normal [facility] Comment on above: Performed By: #### 4 [id number] #### [facility] [address] [place] [address] Delivery Summaryon Delivery Summary Delivery Summary Delivery [...] 50 mcg/mL injectable solution, 100 mcg, Epidural [id number] [F], 50 mcg, Oral ropivacaine 0.2% injectable solution 10 mL, 18 mg, Epidural Normal [facility] Comment on above: Result Comment: Elec tronically [...] that meet specific criteria set forth by [facility]. Glucose Ql (U) Negative Normal Negativemg/d [...] Spec Desc Mendoza (09/11/23 2:24 AM) Normal [facility] UA Auto SS ABO/Rhon 09-10-2023 ABO/Rh Positive Invalid Interpretation Code [facility] Comment on above: Performed By: #### 2 [id number] #### [facility] [address] [place] [address] ABO/Rh History Checkon 09-09 ABO/Rh History Check Verified Hx Blood Type Normal [facility] Comment on above: Performed By: #### 1 [id number] #### [facility] [address] [place] [address] ABSCon 09-10-2023 ABSC Gel Interp Negative Normal [facility] Comment on above: Performed By: #### 1 [id number] #### [facility] [address] [place] [address] BLOOD BANKOrdered By: Austin Cabrera on 09-10-2023 ABO/Rh Interp Positive Invalid Interpretation Code [facility] BB Subsection ABSC Gel Interp Negative (09/10/23 9:43 PM) Normal [facility] BB Subsection Blood Bank ID#on 09-10-2023 BBID# [id number] Invalid Interpretation Code [facility] Comment on above: Performed By: #### 1 [id number] #### [facility] [address] [place] [address] CBC w/Indiceson 09-10-2023 Erythrocyte distribution width (RBC) [Ratio] 17.0 % High 10.9-14.2 [facility] Comment on above: Performed By: #### 2 [id number] #### [facility] [address] [place] [address] Hematocrit (Bld) [Volume fraction] 24.1 % Low 34.0-46.0 [facility] Comment on above: Performed By: #### 2 [id number] #### [facility] [address] [place] [address] Hemoglobin (Bld) [Mass/Vol] 7.7 g/dL Low 12.0-16.0 [facility] Comment on above: Performed By: #### 2 [id number] #### [facility] [address] [place] [address] Hypochromia Auto Ql (Bld) PRESENT Invalid Interpretation Code [facility] Comment on above: Performed By: #### 2 [id number] #### [facility] [address] [place] [address] MCH (RBC) [Entitic mass] 21.4 pg Low 27.0-34.0 [facility] Comment on above: Performed By: #### 2 [id number] #### [facility] [address] [place] [address] MCHC (RBC) [Mass/Vol] 31.8 g/dL Normal 31.4-36.0 [facility] Comment on above: Performed By: #### 2 [id number] #### [facility] [address] [place] [address] MCV (RBC) [Entitic vol] 67.4 fL Low 80.0-100.0 [facility] Comment on above: Performed By: #### 2 [id number] #### [facility] [address] [place] [address] Microcytes Ql (Bld) PRESENT Invalid Interpretation Code [facility] Comment on above: Performed By: #### 2 [id number] #### [facility] [address] [place] [address] Platelet mean volume (Bld) [Entitic vol] 8.8 fL Normal 6.4-10.8 [facility] Comment on above: Performed By: #### 2 [id number] #### [facility] [address] [place] [address] Platelets (Bld) [#/Vol] 209.0 E9/L Normal 150.0-500.0 [facility] Comment on above: Performed By: #### 2 [id number] #### [facility] [address] [place] [address] RBC (Bld) [#/Vol] 3.6 E12/L Low 4.3-5.9 [facility] Comment on above: Performed By: #### 2 [id number] #### [facility] [address] [place] [address] WBC corrected for nucl RBC Auto (Bld) [#/Vol] 8.9 E9/L Normal 4.0-11.0 [facility] Comment on above: Performed By: #### 2 [id number] #### [facility] [address] [place] [address] RBC size Nom (Bld) NORMAL Invalid Interpretation Code [facility] Comment on above: Performed By: #### 2 [id number] #### [facility] [address] [place] [address] HEMATOLOGYOrdered By: SYSTEM SYSTEM on 09-10-2023 Erythrocyte [...] Strep colonization by PCR Negative Normal Negative [facility] Comment on above: Performed By: #### 4 [id number] #### [facility] [address] [place] [address] C Urineon 08-31-2023 Bacteria identified Cx Nom [...] Locations R1: This test was performed at: [facility], [address] [place] [address], [address] , [place], Normal [facility] Comment on above: Performed By: #### 2 [id number] #### [facility] [address] [place] [address] URINALYSISOrdered By: SYSTEM SYSTEM on 08-29-2023 Bilirubin [...] that meet specific criteria set forth by [facility]. Epithelial cells.squamous Auto (Urine sed) [#/Area] [...] Auto SS Coding Summary.on 07-25-2023 Coding Summary. QXHFZpfp76UKo2wMz+P GhlYWQ+VG3VRMJdU28i iWLkgX4cL2DRTSaBRrt gQVBQTElOSyIgbmFtZT 1kaXNjZXJu IC8+SM6yKTLkPvbieWM mq8I1gYB1H53kuc7uSW krwME3QIHbGjVzimbwq 5mxqMu5QJdpDmigFmYt HUHfyJ43VQM6yL98Mu3 5sNGxcYIop6ypqBn0Go IvAATqXWT3xXdbJTtui 3StTGIoH25tmSMig7K1 IGNvbGxhcHNlOyBlbXB 0cT0gULfoefmpv0uzqm gqSbs4rr61rPMst7C3n DO6X7MbllU4SLOrhZEl LzfmqGTUkF7zwqaql2z sydhyYvMiPSUwLZi4YL a4DOGoxCmdXjPiHP52W NL4ZNFhicJxR5WmKDNf vTgaByZ8c4T6Bs9VC0P JHthxC9LCBCPNDOxgfB Q+NB69tc03I4FqVazrV bh7SMSxGLC9tXW5uM8z KBNuNJaiy5D5eWG4Q6E litZfhs1xi2zwCIBaJC bvV92myDUtb0F3DJRak EI0FABogJolMnTjbN26 Oyc+VJAtbYhog4LvTfm ul9poo7wpiKk0HdmyRF NlspLvlSwxIQV6b5WuL j7uCBOxcWJ1hTL9qX7l IoMuWwF5JHjeJ651JtC zjUEnZunvY23hQ3NcnX A+FTGhPnk8WKSwgJlmY M3lP8QjKPTjfhplxOCs xCcrYA4xFCElvqxaYQD nbC0gZAWqO6u3OlPzSd W7RVzqI4GvUHXltiqsV r48gJ7lSiTySjC5IOuc N2XxktU4PQBxuKZjUWd yAUS9X46fj6R5FBUpSG EgGEL7xNE8zK5niBnok jogbGVmdDsgdmVydGlj EFxgISuyQ329TMCegEf nPkNvZGluZyBEYXRlOi AgMDYvMTkvMjAyNDwvd GQ+FFLdHKC6bSduBOFm fROtEKhgIl8dwLgktDw fLZ3kWPFwmbpjEOJvzH 4kSOLyjSAqdQvcUP1gD TWvkdker868XmSsMSK6 QWFrrVRnI7CfuO0uQyA pQDHsPSVwB7LcpUEkVQ gzQ912QIwiToS7ZNWxb rYwQ8HeVBSmqKzfLzO6 h1C1Gl7Ju8JrsbqlP3O hkWIyUbUaAiaiTJp7S6 RkPjwvdHI+FF44DHWdP Y17PMj9ZFK3xUmyXKih EJFmP7BmhE6oZiRjZWL kZGRkOyc+PHRhYmxlIH dpZHRoPScxMDAlJyBzd CrnPC1bCa0iSZByPTBd nKetmYBrAaIib7nhEZA pOFuiOF6gbBznE9KbnP W0KRDkc0t2Uq22R58iH 3JvdXA+WVEcqBA6xEA6 eZ5yVwIeFxP6ZGmlH69 7GeFjlVUlLyfco3rlb6 mrfHq0OtL8ERHhxdWzp NkwBBQ4p8CnXs01E77r IHdpZHRoPSIxNSUiIHZ wwJaubz9mcR4bKr6+PG RecIJ4qDA6fS3hFuZmY qF5AFnwF174JtGntSAm Vawea2mpb8kzfFw5JiE gBHDdsrOsjEqjFWZ7m2 PbFy75R0OugOqwk4VaY rq8oh68tSRnq9X6mSC1 T1XdLRZjizlwcLOumKi dNQ5aBKEjzrxhVQIlfD 4mGKMrN2f2GiXnFeO9B XvxM1IfybW9KQVepJCe LPDrwITKdD2ztdtzk0q fdrnqUcImAVYbCTp2KK s0CPRcgKodDgAoYCS2V uY5FAG0gXNvzE5gxOet yqntbQ9oYyr+WWM2sLE epJLLES0sEwpmuXT+PH HgTUB1hMuhCUimEKCdb T7uVAEuW4u4VlAbDsZ1 RPdnL7RtvnO4BDWwvWG cYTBvyPGDcQ6xuoqgo0 ehwacrTvDuKHVkRKi3D Zm7KJUazQygCvTeGAR1 HdA6SOW4kKDfyA6moRh vxmefyZ7qKwr+QmlydG irVFI2WFr8T4BmZrg7M HNytVjeEW7gbOTsLVjn Sh2teFvuwLlvCK1pVBL iyfozb910GcHnf2fnWS TmmWRfKOneLNZ7C57tp 7P3XJVjNKShKPH1eWG9 cZ5sxCzmkqqhiJTnyBu gdmVydGljYWwtYWxpZ2 28FXZmkCqiCeDvPJd0Y 9ZbHcc7ZGKdcWxzCH8x pCPxSSzhIo4tkCwylYt tUI6eVXKfhgzni877Gn Hwp3rpPXCxsNCuDFkbS DF8M49ky9L1YLVvPFRy PFJ8fKD0rT2xyCrvfwn gbGVmdDsgdmVydGljYW toJXqnL550AJEfaZxsF aEmnXx8G1ZjEvo1QDWb oFuaAL5fvBAqQEqmWb1 crBtkbZrvAB6wGTUucd djo664LrUcm9rdNLShh YAoQMsyPVM0O35kv5O1 MPXvXEClUWK5dZV0cN8 hbGlnbjogbGVmdDsgdm IcnUpmGCutZRfhP183T HRvcDsnPlBhdGllbnQg IRlbNSo8B8VnFzouqNP +RY43NWZsUG76sTHndH Usn2rmvQq8VlMfSXQyA VP2xZxrMOhfv6QiESNs C57ytHOax4M2UXRwzRp arDHdYnQjwIA3qK8qNK tightcu2fykaqyDfucf 7ccqf77pM24Z32rMDih ZHRoPSIzMCUiIHZhbGl usw0veL5xCv9+PGNvbC V3uUC2uS5fFMEnMgE4V CeaG874JiUgtXWlEtnn o5tuk8witTc0YsD2FFY mycGuhGzeQVT2q2TsCx 42U81cRYxqZNNqVYDcV KBoEGWssZohqe5jrL8z Ii8+BJDpkKS5fQS0xX6 vEbMyAgD0ZPchK032Cq HmrCRvEccqX19fH0Zhm XA+AETxDph1IFGzfLsa FI4hkESxLOunDf5zELQ 9KtQmAhAuXWulH8DdGH SkuqusyxqsgGU9TUSnC SPqwF20Aj1ykCmmEEFf uYTCuL5oduefa2cnjja tYuAhSIYbCVy0VPg2MU IacDxaFcLiLUD3ArD7M NI9lWTtcM3fyYshkyjh sI9uQ4YrHJCdvmbrSk5 4qZ7nZyNwNdQ5QIepXy c+Z9dUCtGBLFSMWBoQF b0LTFL9Y5WtFhp7QIPp gLieEG1elRNfKTkhZq7 sxLvwjZldNA6oSMPsgp vsKTBceE9pDDNspMBjg OgsBF6lNXFltgwnn640 TzOkUSO1FVHtwXGgG3H uyI6xWhLtIGFsUANoZ1 QykNTjMHcwL068HDhcA fW9KTQsasLrS3KaDIZy yUpiNvQ7s5B6Op6uFj3 cMe2wHFU6MD42WE25vS Hte5T1iTG4V4ArDMNgc icgkhusaKU4FIFbJPPc mO02qTJgFHlsCi4wi4W 7i296RRIgHTDrqF76Qd 3ooKplTDTonDBUzN9ec xtzg9fshnzkVnRqKWXp AIe8OSv0UYVnqKxjRuI mULF9PdF5HFM5jWBiyU 6drCmzlrswmT0cYrw+M CvnTLHhcoW4Y0GiWbq0 YIEnvTnoUS2vvOSgNBz tMp3dhYlclAdrAO0kQT YkhytkOCZoqO4hFDFsa YOrnXlwKJ0zXNCgwpmz c789FyHdPCO1PIWpqKQ hZ3CudC4eQpBpYRKiRI WaG9PxgXXuVVdbM168F EouQjP5MPPtkuKzO4Pn YKWwmDyiAcJ0r4W7Nx4 XII6xzSL0U1QzHiq8MA RxxOjyQM6xvJIyTTpuP t0ukWovoLczUG7nXKIl jljaXGGpfJ5iFSGjbMF leXpzDK5yYILipdmzs8 01JjNaRAI4VIHafRGwU 3PocX2tDfTcRPEoMLZr Q4GqoCOkVGzoS017RFe xSzK4CZEcssObT4BpEX KrhPgqCqJ2b5W5Hr6UK pDBrozuD0H7W1ZxBfpw dHI+OT24ZQGeIX64uEG ypFTjo2qxmJe7SaVlFB SlHZR1fRlvBHnnb8XgT WAsO29koKAqt5K2NZFc zJrcrVTqGgOnhMF0uW9 iCDkqzkcpc9qtktdgXj yvo1ocau01iH81T78oQ HdpZHRoPSIzMCUiIHZh fMobpu7xeZ2eFw2+PGN seGD8uTT8eS2hUkRqJj I0MWijJ619MnXlgEQkQ pyyc7que5dkmVx1FzKg JZZfhjHllVxxPYQ9m4T tWm20S50mBKreASZnRT FeSKOiCMWpjVhrmg4ih G9wIi8+HG4wx4zsjz63 hG58gDJ+RQYgHQR8eHb yIXjvXDHirE5nBHpjLi H0JAXiTgOfcO30sCYtU UxmVi2iyOqieRrvWG5h YEYxieuit200BzWfy3n fMGNpaNCqFOxfLPY4W0 0ca9X2DJDoSLFeTSZ1z PH9cM9xkZlnraetcBWr dDsgdmVydGljYWwtYWx kR008ROGpmIddFrZcyZ GuG3onfwEAEO7gUojxj GQ+MZDdCTV6rYukWAzh VRXeoC7lNROlI6u9YpC bMuJ2NQqbV4FexaH3LG IasBLnOKUtcJQQtV9nt mazh5gvhvkgNxHxJIPa GSp4HXi4BMPfmBjmOaH rIPD4DaT7FSJ0eRNyvK 0zvZbfbwvbfS7pJmi+R klOOjwvdGQ+PHRkIHN0 pAplGOjfFMPusY9lPWS lD1n8BwZvJrA9QYczV4 OtwqI8BLEenGOkLJDjl DORpX0nbjlyn8tidexd YxYnSBPtFYf5LRf6FRL gvPyoLiPqRIQ6BwI3BZ I2wTMgqJ3wtTtuqmxaj G9wOyc+TVJOOjwvdGQ+ MPYwESZ2qGdrEZpaPPC ymS4pVUIbE4i4VkNcJc X1LGlwY8EmtsU6WRUrp EEmTDZrfGULzY5wrmfy h5cttrrdEqWrADWvQVg 6XQg3FVHdvZacBbExJY H5ElR6UKH6iNCdnU5mq OlrgwuoqK6mQtr+UGF5 XMB9BE08VW02P6IfLax vdGFibGU+PHRhYmxlIH dpZHRoPScxMDAlJyBzd KpfGR8pEr3hVOFbHGGr bGxhcHNlOiBjb (more content not included)... [facility] C Urineon 07-21-2023 Bacteria identified Cx [...] Locations R1: This test was performed at: [facility], [address] [place] [address], [address] , , [facility] Comment on above: Performed By: #### 2 [id number] #### [facility] [address] [place] [address] Nursing Assessmenton 024 Nursing Assessment [id number] 613#1.00TIFF [facility] Consent for Treatmenton 07-06 Consent for Treatment [id number] 89#1.00TIFF Normal [facility] Discharge Instructionson Discharge Instructions [id number] 56#1.00TIFF Normal [facility] Inpatient Clinical Summaryon 07-19-2023 Inpatient Clinical Summary [address] [address] Clinical Summary Person Information Name: JORDIN TYLER Kristan/[facility] Age: 18 Years : 2005 Sex: Female PCP: MARK STONE Marital Status: Single Phone: [phone] Race: White Ethnicity: Non- or Language: Afghan Visit Id: Visit Reason: ABD PAIN Speciality: Acuity: Obs Enc Type: OB Triage Med Service: Obstetrics Arrival: 07/19/2023 06:03:39 Discharge: 07/19/2023 07:45:00 Dispo Type: Home (Routine DC) Address: [address] [place] [address] [address] [facility] [id number] Provider Notes: Diagnosis: Problems Active (12/20/2022) 37 [...] Follow up: With: Address: When: Magalis Snow [address] [place] [id number] Business (1) In 6 days 07/25/2023 Comments: Call for any problems. Call physician if symptoms worsen Return for contractions closer, longer, harder Return for decreased movement Return if ruptured membranes or vaginal bleeding Patient Education Information: Normal [facility] Inpatient Patient Summaryon 07-19-2023 Inpatient Patient Summary [address] [address] Patient Discharge Instructions PERSON INFORMATION [...] With: Address: When: Magalis Leach [place], [facility] [address] [place] [address] Business (1) In 6 days 07/25/2023 Comments: [...] signed up for this yet, please contact [employer] at [phone] to get signed up today. NGUYEN Award [...] QR code below. Thank you for choosing [facility] Normal [facility] Insurance Correspondence Off ice07-19-2023 Insurance Correspondence Office [id number] [id number] Normal [facility] UA with Cult Rflxon 07-19-19 24 Bilirubin Ql (U) Negative Normal Negative [facility] Comment on above: Performed By: #### 4 [id number] #### [facility] [address] [place] [address] Clarity (U) Clear Normal Clear [facility] Comment on above: Performed By: #### 4 [id number] #### [facility] [address] [place] [address] Color (U) Light-Yellow Normal Yellow [facility] Comment on above: Result Comment: Micr oscopic readings are only performed on those samples that meet specific criteria set forth by [facility]. Performed By: #### 4 [id number] #### [facility] [address] [place] [address] Epithelial cells.squamous Auto (Urine sed) [#/Area] 5-8 Invalid Interpretation Code [facility] Comment on above: Performed By: #### 4 [id number] #### [facility] [address] [place] [address] Glucose Ql (U) Negative Normal Negative [facility] Comment on above: Performed By: #### 4 [id number] #### [facility] [address] [place] [address] Hemoglobin Auto test strip (U) [Mass/Vol] Negative Normal Negative [facility] Comment on above: Performed By: #### 4 [id number] #### [facility] [address] [place] [address] Ketones Auto test strip Ql (U) Negative Normal Negative [facility] Comment on above: Performed By: #### 4 [id number] #### [facility] [address] [place] [address] Leukocyte esterase Auto test strip Ql (U) 250 Jeremias/uL Abnormal Negative [facility] Comment on above: Performed By: #### 4 [id number] #### [facility] [address] [place] [address] Mucus Auto Ql (U) Trace Normal Negative [facility] Comment on above: Performed By: #### 4 [id number] #### [facility] [address] [place] [address] Nitrite Auto test strip Ql (U) Negative Normal Negative [facility] Comment on above: Performed By: #### 4 [id number] #### [facility] [address] [place] [address] pH (U) 6.5 [pH] Invalid Interpretation Code 5.0-9.0 [facility] Comment on above: Performed By: #### 4 [id number] #### [facility] [address] [place] [address] Protein Ql (U) Negative Normal Negative [facility] Comment on above: Performed By: #### 4 [id number] #### [facility] [address] [place] [address] RBC Ql (U) 0-3 Normal 0-3 [facility] Comment on above: Performed By: #### 4 [id number] #### [facility] [address] [place] [address] Specific gravity (U) [Rel density] 1.019 Invalid Interpretation Code 1.005-1.030 [facility] Comment on above: Performed By: #### 4 [id number] #### [facility] [address] [place] [id number] Urobilinogen (U) [Mass/Vol] Negative Normal Negative [facility] Comment on above: Performed By: #### 4 [id number] #### [facility] [address] [place] [address] WBC Auto (Urine sed) [#/Area] 0-5 Normal 0-5 [facility] Comment on above: Performed By: #### 4 [id number] #### [facility] [address] [place] [address] Type of Urine collection method Clean Catch Normal [facility] Comment on above: Performed By: #### 4 [id number] #### [facility] [address] [place] [address] URINALYSISOrdered By: SYSTEM SYSTEM on 07-19-2023 Bilirubin Ql (U) Negative Normal Negativemg/ d L [facility] Auto SS Clarity (U) Clear (07/19/23 6:34 AM) Normal Clear [facility] Auto SS Color (U) Light-Yellow 1 (07/19/23 6:34 AM) Normal Yellow [facility] Auto SS Comment on above: Interpretive Data: M icroscopic readings are only performed on those samples that meet specific criteria set forth by [facility]. Epithelial cells.squamous Auto (Urine sed) [#/Area] 5-8 graded/HPF Invalid Interpretation Code [facility] Auto SS Glucose Ql (U) Negative [...] Locations R1: This test was performed at: [facility], [address] [place] [address], [facility] , , Normal [facility] Comment on above: Performed By: #### 2 [id number] #### [facility] [address] [place] [id number] HIV Screen 4th Generation wR fxon 07-11-2023 HIV 1+2 Ab+HIV1 p24 Ag IA Ql Non-Reactive Invalid Interpretation Code Non Reactive [facility] Comment on above: Result Comment: HIV Negative HIV-1/HIV-2 antibodies and HIV-1 p24 antigen were NOT detected. There is no laboratory evidence of HIV infection. Performed at: [address] [id number] PhD Jomar Verma Performed By: #### 9 [id number] #### [facility] [address] [place] [address] Hep Bs Agon 07-11-2023 HBV surface Ag IA Ql Negative Invalid Interpretation Code Negative [facility] Comment on above: Result Comment: Perf ormed at: [address] [id number] PhD Jomar Verma Performed By: #### 2 [id number] #### [facility] [address] [place] [address] RPR with Conf Rfxon 07-11-19 24 Reagin Ab RPR Ql (S) Non-Reactive Invalid Interpretation Code Non Reactive [facility] Comment on above: Result Comment: Perf ormed at: [address] [id number] PhD Jomar Verma Performed By: #### 1 [id number] #### [facility] [address] [place] [address] ABO/Rhon 07-09-2023 ABO/Rh Positive Invalid Interpretation Code [facility] Comment on above: Performed By: #### 2 [id number] #### [facility] [address] [place] [address] ABSCon 07-09-2023 ABSC Gel Interp Negative Normal [facility] Comment on above: Performed By: #### 1 [id number] #### [facility] [address] [place] [address] BLOOD BANKOrdered By: Tobias Ospina on 07-09-2023 ABO/Rh Interp Positive Invalid Interpretation Code [facility] BB Subsection ABSC Gel Interp Negative (07/09/23 3:58 PM) Normal [facility] BB Subsection CBC w/ Auto Diffon Anisocytosis Ql (Bld) PRESENT Invalid Interpretation Code [facility] Comment on above: Performed By: #### 2 [id number] #### [facility] [address] [place] [address] Basophils/100 WBC (Bld) 0.3 % Normal 0.0-2.0 [facility] Comment on above: Performed By: #### 2 [id number] #### [facility] [address] [place] [address] Basophils/Leukocytes Auto (Bld) [Pure # fraction] 0.0 E9/L Normal 0.0-0.2 [facility] Comment on above: Performed By: #### 2 [id number] #### [facility] [address] [place] [address] Eosinophils (Bld) [#/Vol] 0.1 E9/L Normal 0.0-0.5 [facility] Comment on above: Performed By: #### 2 [id number] #### [facility] [address] [place] [address] Eosinophils/100 WBC (Bld) 1.3 % Normal 0.0-8.0 [facility] Comment on above: Performed By: #### 2 [id number] #### [facility] [address] [place] [address] Erythrocyte distribution width (RBC) [Ratio] 15.0 % High 10.9-14.2 [facility] Comment on above: Performed By: #### 2 [id number] #### [facility] [address] [place] [address] Hematocrit (Bld) [Volume fraction] 28.8 % Low 34.0-46.0 [facility] Comment on above: Performed By: #### 2 [id number] #### [facility] [address] [place] [address] Hemoglobin (Bld) [Mass/Vol] 9.2 g/dL Low 12.0-16.0 [facility] Comment on above: Performed By: #### 2 [id number] #### [facility] [address] [place] [address] Hypochromia Auto Ql (Bld) PRESENT Invalid Interpretation Code [facility] Comment on above: Performed By: #### 2 [id number] #### [facility] [address] [place] [address] Lymphocytes (Bld) [#/Vol] 2.2 E9/L Normal 1.0-4.0 [facility] Comment on above: Performed By: #### 2 [id number] #### [facility] [address] [place] [address] Lymphocytes/100 WBC (Bld) 19.1 % Normal 14.0-50.0 [facility] Comment on above: Performed By: #### 2 [id number] #### [facility] [address] [place] [address] MCH (RBC) [Entitic mass] 23.5 pg Low 27.0-34.0 [facility] Comment on above: Performed By: #### 2 [id number] #### [facility] [address] [place] [address] MCHC (RBC) [Mass/Vol] 31.9 g/dL Normal 31.4-36.0 [facility] Comment on above: Performed By: #### 2 [id number] #### [facility] [address] [place] [address] MCV (RBC) [Entitic vol] 73.8 fL Low 80.0-100.0 [facility] Comment on above: Performed By: #### 2 [id number] #### [facility] [address] [place] [address] Microcytes Ql (Bld) PRESENT Invalid Interpretation Code [facility] Comment on above: Performed By: #### 2 [id number] #### [facility] [address] [place] [address] Monocytes (Bld) [#/Vol] 0.8 E9/L Normal 0.2-1.0 [facility] Comment on above: Performed By: #### 2 [id number] #### [facility] [address] [place] [address] Neutrophils (Bld) [#/Vol] 8.1 E9/L High 2.0-7.5 [facility] Comment on above: Performed By: #### 2 [id number] #### [facility] [address] [place] [address] Neutrophils/100 WBC (Bld) 72.3 % Normal 36.0-75.0 [facility] Comment on above: Performed By: #### 2 [id number] #### [facility] [address] [place] [address] Ovalocytes LM Ql (Bld) PRESENT Invalid Interpretation Code [facility] Comment on above: Performed By: #### 2 [id number] #### [facility] [address] [place] [address] Platelet mean volume (Bld) [Entitic vol] 8.9 fL Normal 6.4-10.8 [facility] Comment on above: Performed By: #### 2 [id number] #### [facility] [address] [place] [address] Platelets (Bld) [#/Vol] 251.0 E9/L Normal 150.0-500.0 [facility] Comment on above: Performed By: #### 2 [id number] #### [facility] [address] [place] [address] RBC (Bld) [#/Vol] 3.9 E12/L Low 4.3-5.9 [facility] Comment on above: Performed By: #### 2 [id number] #### [facility] [address] [place] [address] RBC size Nom (Bld) SEE MORPHOLOGY Invalid Interpretation Code [facility] Comment on above: Performed By: #### 2 [id number] #### [facility] [address] [place] [address] WBC corrected for nucl RBC Auto (Bld) [#/Vol] 11.3 E9/L High 4.0-11.0 [facility] Comment on above: Performed By: #### 2 [id number] #### [facility] [address] [place] [address] Consent for Treatmenton Consent for Treatment [id number]#1.00TIFF Normal [facility] Consent for Treatment [id number] 3C#1.00TIFF Normal [facility] HEMATOLOGYOrdered By: SYSTEM SYSTEM on 07-09-2023 Anisocytosis [...] Heme Physician Orderon 07-09-2023 Physician Order [id number] 81#1.00TIFF Normal [facility] Physician Order [id number] 42#1.00TIFF Normal [facility] Physician Order [id number] 62#1.00TIFF Normal [facility] No Panel Informationon 03-20 Glucose, UA Negative Negative - 1999(110) ++++ mg/dL [facility] Protein, UA Negative Negative - 1999(20) ++++ mg/dL [facility] ED Note-Physicianon 02-17-19 ED Note-Physician Basic Information Time Seen: Renae ROBERT Sadie E. 02/13/2023 14:21 Chief Complaint 8 weeks sees [facility] OB. appt. scheduled for 02/23. states she has been vomiting for a couple of weeks and feels dehydrated. denies vaginal bleeding or any cramping. History of Present Illness 18-year-old female who is 8 weeks presents for continued vomiting. She admits to dysuria. She states that she called her [facility] today and they were going to give [...] syndrome. She is to follow-up with her [facility]. Patient has not had any more vomiting, but still complains of nausea and dry heaving will be given Phenergan. She is now eating ice cream. Upon recheck, patient is sleeping comfortably on the cot with no further episodes of vomiting and will be discharged with a prescription for Zofran and Phenergan suppositories and follow-up with the [facility]. Afebrile, not tachycardic, not tachypneic, nontoxic-appearing, tolerating p.o. and ambulating at baseline and hemodynamically stable to be discharged home. Educated side effect of medications. Answered all questions. Patient in agreement with treatment. Assessment/Plan 1. Hyperemesis gravidarum (O21.0: Mild hyperemesis gravidarum) Ordered: ondansetron, 4 mg = 1 tab(s), Oral, q8hr, X 2 day(s), # 6 tab(s), Refills(s) 0, [facility]acy: [id number], 165, cm, 02/13/23 14:25:00 EST, Height/Length Dosing, 69.5, kg, 02/13/23 14:25:00 EST, Weight Dosing promethazine, 12.5 mg = 1 supp, Rectal, q4hr, PRN for motion sickness, X 5 day(s), # 30 supp, Refills(s) 0, Pharmacy: [id number], 165, cm, 02/13/23 14:25:00 EST, Height/Length Dosing, 69.5, kg, 02/13/23 14:25:00 EST, Weight Dosing 2. (Z34.90: Encounter for supervision of normal , unspecified, unspecified trimester) Ordered: ondansetron, 4 mg = 1 tab(s), Oral, q8hr, X 2 day(s), # 6 tab(s), Refills(s) 0, Pharmacy: [facility] #[id number], 165, cm, 02/13/23 14:25:00 EST, Height/Length Dosing, 69.5, kg, 02/13/23 14:25:00 EST, Weight Dosing promethazine, 12.5 mg = 1 supp, Rectal, q4hr, PRN for motion sickness, X 5 day(s), # 30 supp, Refills(s) 0, [id number], 165, cm, 02/13/23 14:25:00 EST, Height/Length Dosing, 69.5, kg, 02/13/23 14:25:00 EST, Weight Dosing 3. UTI in (O23.40: Unspecified infection of urinary tract in , unspecified trimester) Ordered: ondansetron, 4 mg = 1 tab(s), Oral, q8hr, X 2 day(s), # 6 tab(s), Refills(s) 0, [id number], 165, cm, 02/13/23 14:25:00 EST, Height/Length Dosing, 69.5, kg, 02/13/23 14:25:00 EST, Weight Dosing promethazine, 12.5 mg = 1 supp, Rectal, q4hr, PRN for motion sickness, X 5 day(s), # 30 supp, Refills(s) 0, [id number], 165, cm, 02/13/23 14:25:00 EST, Height/Length Dosing, 69.5, kg, 02/13/23 14:25:00 EST, Weight Dosing 4. Hypokalemia (E87.6: Hypokalemia) Ordered: ondansetron, 4 mg = 1 tab(s), Oral, q8hr, X 2 day(s), # 6 tab(s), Refills(s) 0, [id number], 165, cm, 02/13/23 14:25:00 EST, Height/Length Dosing, 69.5, kg, 02/13/23 14:25:00 EST, Weight Dosing promethazine, 12.5 mg = 1 supp, Rectal, q4hr, PRN for motion sickness, X 5 day(s), # 30 supp, Refills(s) 0, [id number], 165, cm, 02/13/23 14:25:00 EST, Height/Length Dosing, 69.5, kg, 02/13/23 14:25:00 EST, Weight Dosing 5. Elevated LFTs (R79.89: Other specified abnormal findings of blood chemistry) Ordered: ondansetron, 4 mg = 1 tab(s), Oral, q8hr, X 2 day(s), # 6 tab(s), Refills(s) 0, Pharmacy: [facility] #[id number], 165, cm, 02/13/23 14:25:00 EST, Height/Length Dosing, 69.5, kg, 02/13/23 14:25:00 EST, Weight Dosing promethazine, 12. (more content not included)... Normal [facility] Comment on above: Result Comment: Elec tronically [...] Locations R1: This test was performed at: [facility], [address] [place] [address], [address] , [place], Normal [facility] Comment on above: Performed By: #### 2 [id number] #### [facility] [address] [place] [address] Auto Diffon 02-13-2023 Basophils/100 WBC (Bld) 0.6 % Normal 0.0-2.0 [facility] Comment on above: Order Comment: Order Added by Discern Expert. Performed By: #### 1 [id number] #### [facility] [address] [place] [address] Basophils/Leukocytes Auto (Bld) [Pure # fraction] 0.1 E9/L Normal 0.0-0.2 [facility] Comment on above: Order Comment: Order Added by Discern Expert. Performed By: #### 1 [id number] #### [facility] [address] [place] [address] Eosinophils/100 WBC (Bld) 0.4 % Normal 0.0-8.0 [facility] Comment on above: Order Comment: Order Added by Discern Expert. Performed By: #### [id number] #### [facility] [address] [place] [address] [id number] Eosinophils/Leukocytes Auto (Bld) [Pure # fraction] 0.0 E9/L Normal 0.0-0.5 [facility] Comment on above: Order Comment: Order Added by Discern Expert. Performed By: #### [id number] #### [facility] [address] [place] [address] [id number] Lymphocytes/100 WBC (Bld) 22.3 % Normal 14.0-50.0 [facility] Comment on above: Order Comment: Order Added by Discern Expert. Performed By: #### [id number] #### [facility] [address] [place] [address] [id number] Lymphocytes/Leukocytes Auto (Bld) [Pure # fraction] 1.9 E9/L Normal 1.0-4.0 [facility] Comment on above: Order Comment: Order Added by Discern Expert. Performed By: #### [id number] #### [facility] [address] [place] [address] 14338 Monocytes/100 WBC (Bld) 8.5 % Normal 4.0-14.0 [facility] Comment on above: Order Comment: Order Added by Discern Expert. Performed By: #### [id number] #### [facility] [address] [place] [address] [id number] Monocytes/Leukocytes Auto (Bld) [Pure # fraction] 0.7 E9/L Normal 0.2-1.0 [facility] Comment on above: Order Comment: Order Added by Discern Expert. Performed By: #### [id number] #### [facility] [address] [place] [address] [id number] Neutrophils/100 WBC (Bld) 68.2 % Normal 36.0-75.0 [facility] Comment on above: Order Comment: Order Added by Discern Expert. Performed By: #### 1 [id number] #### [facility] [address] [place] [address] [id number] Neutrophils/Leukocytes Auto (Bld) [Pure # fraction] 5.7 E9/L Normal 2.0-7.5 [facility] Comment on above: Order Comment: Order Added by Discern Expert. Performed By: #### [id number] #### [facility] [address] [place] [address] [id number] CBC w/ Auto Diffon 4 Erythrocyte distribution width (RBC) [Ratio] 19.0 % High 10.9-14.2 [facility] Comment on above: Performed By: #### 1 [id number], [id number] #### [facility] [address] [place] [address] Hematocrit (Bld) [Volume fraction] 36.7 % Normal 34.0-46.0 [facility] Comment on above: Performed By: #### 1 [id number], [id number] #### [facility] [address] [place] [address] Hemoglobin (Bld) [Mass/Vol] 11.9 g/dL Low 12.0-16.0 [facility] Comment on above: Performed By: #### 1 [id number], [id number] #### [facility] [address] [place] [address] MCH (RBC) [Entitic mass] 24.7 pg Low 27.0-34.0 [facility] Comment on above: Performed By: #### 1 [id number], 7452912 #### [facility] [address] [place] [address] MCHC (RBC) [Mass/Vol] 32.5 g/dL Normal 31.4-36.0 [facility] Comment on above: Performed By: #### 1 [id number], [id number] #### [facility] [address] [place] [address] MCV (RBC) [Entitic vol] 75.9 fL Low 80.0-100.0 [facility] Comment on above: Performed By: #### 1 [id number], [id number] #### [facility] [address] [place] [address] Platelet mean volume (Bld) [Entitic vol] 8.7 fL Normal 6.4-10.8 [facility] Comment on above: Performed By: #### 1 [id number], [id number] #### [facility] [address] [place] [address] Platelets (Bld) [#/Vol] 326.0 E9/L Normal 150.0-500.0 [facility] Comment on above: Performed By: #### 1 [id number], [id number] #### [facility] [address] [place] [address] 37781 RBC (Bld) [#/Vol] 4.8 E12/L Normal 4.3-5.9 [facility] Comment on above: Performed By: #### 1 [id number], [id number] #### [facility] [address] [place] [address] WBC corrected for nucl RBC Auto (Bld) [#/Vol] 8.3 E9/L Normal 4.0-11.0 [facility] Comment on above: Performed By: #### 1 [id number], [id number] #### [facility] [address] [place] [address] CHEMISTRYOrdered By: SYSTEM SYSTEM on 02-13-2023 Albumin [...] 02-13-2023 Albumin [Mass/Vol] 4.2 g/dL Normal 3.3-5.0 [facility] Comment on above: Performed By: #### 1 [id number] #### [facility] [address] [place] [address] Albumin/Globulin [Mass ratio] 1.3 {ratio} Normal 1.1-2.2 [facility] Comment on above: Performed By: #### 1 [id number] #### [facility] [address] [place] [address] Alk Phos 114 Int._Unit/L High 21-98 [facility] Comment on above: Performed By: #### 1 [id number] #### [facility] [address] [place] [address] ALT 86 Int._Unit/L High 6-46 [facility] Comment on above: Performed By: #### 1 [id number] #### [facility] [address] [place] [address] Anion gap [Moles/Vol] 16 mmol/L Normal 6-16 [facility] Comment on above: Performed By: #### 1 [id number] #### [facility] [address] [place] [address] AST 51 Int._Unit/L High 5-43 [facility] Comment on above: Performed By: #### 1 [id number] #### [facility] [address] [place] [address] Bili Total 0.7 mg/dL Normal 0.0-1.1 [facility] Comment on above: Performed By: #### 1 [id number] #### [facility] [address] [place] [address] BUN/Creat Ratio 14 No Units Normal 10-20 [facility] Comment on above: Performed By: #### 1 [id number] #### [facility] [address] [place] [address] Calcium [Mass/Vol] 9.3 mg/dL Normal 8.9-11.1 [facility] Comment on above: Performed By: #### 1 [id number] #### [facility] [address] [place] [address] Chloride [Moles/Vol] 103 mmol/L Normal 101-111 [facility] Comment on above: Performed By: #### 1 [id number] #### [facility] [address] [place] [address] CO2 [Moles/Vol] 21 mmol/L Normal 21-31 [facility] Comment on above: Performed By: #### 1 [id number] #### [facility] [address] [place] [address] Creatinine [Mass/Vol] 0.5 mg/dL Normal 0.5-1.3 [facility] Comment on above: Performed By: #### 1 [id number] #### [facility] [address] [place] [address] Globulin (S) [Mass/Vol] 3.3 g/dL Normal 1.4-4.0 [facility] Comment on above: Performed By: #### 1 [id number] #### [facility] [address] [place] [address] Glucose [Mass/Vol] 84 mg/dL Normal 55-199 [facility] Comment on above: Performed By: #### 1 [id number] #### [facility] [address] [place] [address] Potassium [Moles/Vol] 3.4 mmol/L Low 3.5-5.3 [facility] Comment on above: Performed By: #### 1 6129080 #### [facility] [address] [place] [address] Protein [Mass/Vol] 7.5 g/dL Normal 6.0-7.8 [facility] Comment on above: Performed By: #### 1 [id number] #### [facility] [address] [place] [address] Sodium [Moles/Vol] 137 mmol/L Normal 135-145 [facility] Comment on above: Performed By: #### 1 1543560 #### [facility] [address] [place] [address] Urea nitrogen [Mass/Vol] 7 mg/dL Normal 5-21 [facility] Comment on above: Performed By: #### 1 [id number] #### [facility] [address] [place] [address] Consent for Treatmenton Consent for Treatment [id number]#1.00TIFF Normal [facility] Discharge Instructionson Discharge Instructions [id number]#1.00TIFF Normal [facility] ED Clinical Summaryon 2023 ED Clinical Summary [address] [address] ED Clinical Summary Person Information Name: JORDIN TYLER Kristan/[facility] Age: 18 Years : 2005 Sex: Female Language: Afghan PCP: MARK STONE Marital Status: Single Phone: [phone] Visit Id: Visit Reason: Vomiting - ; [...] 02/13/2023 17:35:55 02/13/2023 17:35:55 02/13/2023 17:35:55 ADDRESS: [address] [place] [id number] PHYS DOC NOTES: MEDICAL INFORMATION: Prescriptions Given: New Medications [facility]/pharmacy #[id number], [address] [place], [place] [id number], [phone] nitrofurantoin (Macrobid 100 mg Cap) 1 Capsules By Mouth 2 times a day for 5 Days. Refills: 0. Medications to Continue Taking That Have Changed [facility]/pharmacy #[id number], [address], [place] [id number], [phone] START: ondansetron (Zofran ODT 4 mg Tab-Dis) [...] INFORMATION: Instructions: Hypokalemia; Urinary Tract Infection, Adult, Ndzt-lw-Iouc; Hyperemesis Gravidarum Follow up: With: Address: When: Paul CASE, [place], [address] [facility], [address] [place] [address] Within 2 to 4 days DIAGNOSIS: 1:Hyperemesis gravidarum; 2:; 3:UTI in ; 4:Hypokalemia; 5:Elevated LFTs Normal [facility] ED Patient Education Noteon 02-13-2023 ED Patient [...] such as yogurt. General instructions ? Take muap-tsd-sqrbqru and prescription medicines only as told by [...] Reviewed: 10/06/2021 Elsevier Patient Education ? 2022 [employer] Obstetrics and Gynecology Urinary Tract Infection, Adult [...] antibiotic medicines. (more content not included)... Normal [facility] ED Patient Summaryon 024 ED Patient Summary [place] [id number] Patient Discharge Instructions Person Information Name: JORDIN TYLER Age: 18 Years Arrival Date: 02/13/2023 14:15:10 Discharge Diagnosis: 1:Hyperemesis gravidarum; 2:; 3:UTI in ; 4:Hypokalemia; 5:Elevated LFTs Primary Care Physician: MARK STONE Provider Information Primary Provider: Steven Alatorre DO [employer] Operator:None The exam and treatment you received in the Emergency Department were for an urgent problem and are not intended as complete care. It is important that you follow up with a doctor, nurse practitioner, or physician?s pathology assistant for ongoing care. If your symptoms become [...] [place], [address], [address] [place] [address] Within 2 to 4 days In the event that this physician does not participate in your insurance network, please consult with your insurance company to find a nearby participating provider. Patient Education Materials: Hypokalemia; Urinary Tract Infection, Adult, Khai-bp-Anwo; Hyperemesis Gravidarum A MESSAGE TO ALL PATIENTS REGARDING OPIOIDS PRESCRIPTION OPIOIDS: WHAT YOU NEED TO KNOW Prescription opioids can be used to help relieve lhibjyny-wh-fxsfdn pain and are often prescribed following a [...] your health (more content not included)... Normal [facility] HEMATOLOGYOrdered By: Ericka Rivas on 02-13-2023 Anisocytosis Ql (Bld) Present (02/13/23 2:33 PM) Normal [facility] HemeManSS Erythrocyte distribution width (RBC) [Ratio] 19.0 % High 10.9 - 14.2 % [facility] HemeAutoSS Hematocrit (Bld) [Volume fraction] 36.7 % Normal 34.0 - 46.0 % [facility] HemeAutoSS Hemoglobin (Bld) [Mass/Vol] 11.9 g/dL Low 12.0 - 16.0 gm/dL [facility] HemeAutoSS Hypochromia Auto Ql (Bld) Present (02/13/23 [...] 8.5 % Normal 4.0 - 14.0 % [facility] HemeAutoSS Monocytes/Leukocytes Auto (Bld) [Pure # fraction] 0.7 E9/L Normal 0.2 - 1.0 E9/L FT HemeAutoSS Neutrophils/100 WBC (Bld) 68.2 % Normal 36.0 - 75.0 % [facility] HemeAutoSS Neutrophils/Leukocytes Auto (Bld) [Pure # fraction] 5.7 E9/L Normal 2.0 - 7.5 E9/L [facility] HemeAutoSS Magnesiumon 02-13-2023 Magnesium [Mass/Vol] 1.7 mg/dL Normal 1.3-2.4 [facility] Comment on above: Performed By: #### 1 [id number] #### [facility] [address] [place] [address] Morphon 02-13-2023 Anisocytosis Ql (Bld) Present Normal [facility] Comment on above: Order Comment: Order Added by Discern Expert. Performed By: #### 1 [id number], [id number] #### [facility] [address] [place] [address] Hypochromia Auto Ql (Bld) Present Normal [facility] Comment on above: Order Comment: Order Added by Discern Expert. Performed By: #### 1 [id number], 2488887 #### [facility] [address] [place] [address] Microcytes Ql (Bld) Present Normal [facility] Comment on above: Order Comment: Order Added by Discern Expert. Performed By: #### 1 4880044, [id number] #### [facility] [address] [place] [address] Morphology Cliff (Bld) [Interp] See Morphology Normal [facility] Comment on above: Order Comment: Order Added by Discern Expert. Performed By: #### 1 [id number], [id number] #### [facility] [address] [place] [address] Ovalocytes LM Ql (Bld) Present Normal [facility] Comment on above: Order Comment: Order Added by Discern Expert. Performed By: #### 1 [id number], 6688476 #### [facility] [address] [place] [address] UA With Cult Reflexon 2023 Bacteria LM Ql (Urine sed) 2+ /HPF Abnormal Trace [facility] Comment on above: Performed By: #### 2 506121, [id number] #### [facility] [address] [place] [address] Bilirubin Ql (U) 2+ Abnormal Negative [facility] Comment on above: Performed By: #### 2 742445, [id number] #### [facility] [address] [place] [address] Clarity (U) CLEAR Normal Clear [facility] Comment on above: Performed By: #### 2 137764, [id number] #### [facility] [address] [place] [address] Color (U) DARK YELLO Abnormal Yellow [facility] Comment on above: Performed By: #### 2 556877, [id number] #### [facility] [address] [place] [address] Epithelial cells.squamous LM.HPF (Urine sed) [#/Area] 5-8 Normal 0-2 [facility] Comment on above: Performed By: #### 2 223328, 33057780 #### [facility] [address] [place] [address] Glucose Test strip (U) [Mass/Vol] Negative Normal Negative [facility] Comment on above: Performed By: #### 2 009156, 24489631 #### [facility] [address] [place] [address] Hemoglobin Ql (U) Negative Normal Negative [facility] Comment on above: Performed By: #### 2 652584, [id number] #### [facility] [address] [place] [address] Ketones (U) [Mass/Vol] 3+ Abnormal Negative [facility] Comment on above: Performed By: #### 2 209821, [id number] #### [facility] [address] [place] [address] [place].plasma/[place].R BC (Bld) [Mass ratio] 4-20 Normal 0-3 [facility] Comment on above: Performed By: #### 2 030242, [id number] #### [facility] [address] [place] [address] Mucus Ql (Urine sed) 2+ Normal [facility] Comment on above: Performed By: #### 2 345082, 06949170 #### [facility] [address] [place] [address] Nitrite Ql (U) Negative Normal Negative [facility] Comment on above: Performed By: #### 2 030900, 12437792 #### [facility] [address] [place] [address] pH (U) 6.0 [pH] Invalid Interpretation Code 5.0-9.0 [facility] Comment on above: Performed By: #### 2 903572, [id number] #### [facility] [address] [place] [address] Protein (U) [Mass/Vol] 1+ Abnormal Negative [facility] Comment on above: Performed By: #### 2 598336, 13269435 #### [facility] [address] [place] [address] Specific gravity (U) [Rel density] >=1.030 Invalid Interpretation Code 1.005-1.030 [facility] Comment on above: Performed By: #### 2 033081, [id number] #### [facility] [address] [place] [address] Type of Urine collection method Clean Catch Normal [facility] Comment on above: Performed By: #### 2 718973, [id number] #### [facility] [address] [place] [address] Urobilinogen Qn (U) 2.0 {Karri'U}/dL Abnormal 0.0-1.0 [facility] Comment on above: Performed By: #### 2 685070, 84198095 #### [facility] [address] [place] [address] WBC Auto Ql (U) 1+ Abnormal Negative [facility] Comment on above: Performed By: #### 2 235960, 45767064 #### [facility] [address] [place] [address] WBC LM.HPF (Urine sed) [#/Area] 6-15 Abnormal 0-5 [facility] Comment on above: Performed By: #### 2 589398, 11212262 #### [facility] [address] [place] [address] URINALYSISOrdered By: Maranda Muñoz on 02-13-2023 Bacteria [...] Interpretation Code Negative [facility] UA Auto SS [place].plasma/[place].R BC (Bld) [Mass ratio] 4-20 /HPF Normal 0-3/HPF [facility] UA Au to SS Mucus Ql (Urine sed) 2+ (02/13/23 2:30 PM) Normal [facility] UA Auto SS Nitrite Ql (U) Negative (02/13/23 2:30 PM) Normal Negative [facility] UA Auto SS pH (U) 6.0 *NA* (02/13/23 2:30 PM) Invalid Interpretation Code 5.0 - 9.0 [facility] UA Auto SS Protein (U) [Mass/Vol] 1+ *ABN* (02/13/23 2:30 PM) Invalid Interpretation Code Negative [facility] UA Auto SS Specific gravity (U) [Rel density] >=1.030 *NA* (02/13/23 2:30 PM) Invalid Interpretation Code 1.005 - 1.030 [facility] UA Auto SS UA Spec Desc Clean Catch (02/13/23 2:30 PM) Normal [facility] UA Auto SS Urobilinogen Qn (U) 2.9933459 {Karri'U}/dL Invalid Interpretation Code 0.0 - 1.0 EU/dL [facility] UA Auto SS WBC Auto Ql (U) 1+ *ABN* (02/13/23 2:30 PM) Invalid Interpretation Code Negative [facility] UA Auto SS WBC LM.HPF (Urine sed) [#/Area] 6-15 /HPF Invalid Interpretation Code 0-5/HPF [facility] UA Auto SS eGFRon 02-13-2023 GFR/1.73 sq M.predicted among non-blacks MDRD (S/P/Bld) [Vol rate/Area] mL/min/{1.73_m2} Normal >=59 [facility] Comment on above: Order Comment: Order added by Discern Expert. Performed By: #### 1 [id number] #### [facility] [address] [place] [address] C Urineon 01-28-2023 Bacteria identified Cx Nom [...] Locations R1: This test was performed at: [facility], [address] [place] [address], [address] , [place], Normal [facility] Comment on above: Performed By: #### 1 [id number] #### [facility] [address] [place] [address] ED Note-Physicianon 01-28-20 ED Note-Physician Basic Information [...] weeks . Reports he does follow-up with [facility]. Denies any fevers or chills. States that [...] and Complexity of Problems Differential Diagnosis: [] [facility] Data External documents reviewed: [] My EKG [...] greatly improve her symptoms. Discussed follow-up with [facility]. Patient was understanding. Follow-up with your primary [...] Blue Tube (more content not included)... Normal [facility] Comment on above: Result Comment: Elec tronically Signed By: Donavan Lawson PA-C\.br\Date and Time Signed: 01/26/23 21:46 EST\.br\Electronically Co-Signed By: Damaris Jean Baptiste DO\.br\Date and Time Co-Signed: 01/27/23 01:31 EST ABO/Rhon 01-26-2023 ABO/Rh Positive Invalid Interpretation Code [facility] Comment on above: Performed By: #### 2 [id number] ####[facility] [address] [place] [address] Auto Diffon 01-26-2023 Basophils/100 WBC (Bld) 0.4 % Normal 0.0-2.0 [facility] Comment on above: Order Comment: Order Added by Discern Expert. Performed By: #### 1 [id number] #### [facility] [address] [place] [address] Basophils/Leukocytes Auto (Bld) [Pure # fraction] 0.0 E9/L Normal 0.0-0.2 [facility] Comment on above: Order Comment: Order Added by Discern Expert. Performed By: #### 1 [id number] #### [facility] [address] [place] [address] Eosinophils/100 WBC (Bld) 0.5 % Normal 0.0-8.0 [facility] Comment on above: Order Comment: Order Added by Discern Expert. Performed By: #### 1 [id number] #### [facility] [address] [place] [address] Eosinophils/Leukocytes Auto (Bld) [Pure # fraction] 0.0 E9/L Normal 0.0-0.5 [facility] Comment on above: Order Comment: Order Added by Discern Expert. Performed By: #### 1 [id number] #### [facility] [address] [place] [address] Lymphocytes/100 WBC (Bld) 21.8 % Normal 14.0-50.0 [facility] Comment on above: Order Comment: Order Added by Discern Expert. Performed By: #### 1 [id number] #### [facility] [address] [place] [address] Lymphocytes/Leukocytes Auto (Bld) [Pure # fraction] 1.7 E9/L Normal 1.0-4.0 [facility] Comment on above: Order Comment: Order Added by Discern Expert. Performed By: #### 1 [id number] #### [facility] [address] [place] [address] Monocytes/100 WBC (Bld) 7.4 % Normal 4.0-14.0 [facility] Comment on above: Order Comment: Order Added by Discern Expert. Performed By: #### 1 [id number] #### [facility] [address] [place] [address] Monocytes/Leukocytes Auto (Bld) [Pure # fraction] 0.6 E9/L Normal 0.2-1.0 [facility] Comment on above: Order Comment: Order Added by Discern Expert. Performed By: #### 1 [id number] #### [facility] [address] [place] [address] Neutrophils/100 WBC (Bld) 69.9 % Normal 36.0-75.0 [facility] Comment on above: Order Comment: Order Added by Discern Expert. Performed By: #### 1 [id number] #### [facility] [address] [place] [address] Neutrophils/Leukocytes Auto (Bld) [Pure # fraction] 5.3 E9/L Normal 2.0-7.5 [facility] Comment on above: Order Comment: Order Added by Discern Expert. Performed By: #### 1 [id number] #### [facility] [address] [place] [address] BLOOD BANKOrdered By: Ericka Rivas on 01-26-2023 ABO/Rh Interp Positive Invalid Interpretation Code [facility] BB Subsection BMPon 01-26-2023 Anion gap [Moles/Vol] 16 mmol/L Normal 6-16 [facility] Comment on above: Performed By: #### 1 [id number] #### [facility] [address] [place] [address] BUN/Creat Ratio 17 No Units Normal 10-20 [facility] Comment on above: Performed By: #### 1 [id number] #### [facility] [address] [place] [address] Calcium [Mass/Vol] 9.5 mg/dL Normal 8.9-11.1 [facility] Comment on above: Performed By: #### 1 [id number] #### [facility] [address] [place] [address] Chloride [Moles/Vol] 103 mmol/L Normal 101-111 [facility] Comment on above: Performed By: #### 1 [id number] #### [facility] [address] [place] [address] CO2 [Moles/Vol] 21 mmol/L Normal 21-31 [facility] Comment on above: Performed By: #### 1 [id number] #### [facility] [address] [place] [address] Creatinine [Mass/Vol] 0.6 mg/dL Normal 0.5-1.3 [facility] Comment on above: Performed By: #### 1 [id number] #### [facility] [address] [place] [address] Glucose [Mass/Vol] 79 mg/dL Normal 55-199 [facility] Comment on above: Performed By: #### 1 [id number] #### [facility] [address] [place] [address] Potassium [Moles/Vol] 3.6 mmol/L Normal 3.5-5.3 [facility] Comment on above: Performed By: #### 1 [id number] #### [facility] [address] [place] [address] Sodium [Moles/Vol] 136 mmol/L Normal 135-145 [facility] Comment on above: Performed By: #### 1 [id number] #### [facility] [address] [place] [address] Urea nitrogen [Mass/Vol] 10 mg/dL Normal 5-21 [facility] Comment on above: Performed By: #### 1 [id number] #### [facility] [address] [place] [address] BhCG Quanton 01-26-2023 Beta hCG Qnt 186784 mIU/mL High 1-3 [facility] Comment on above: Result Comment: 'F N ON < 1 - 3' ' 0.2 - 1 WEEK = 5 TO 50' ' 1 - 2 WEEKS = 50 - 500' ' 2 - 3 WEEKS = 100 - 5000' ' 3 - 4 WEEKS = 500 - 18738' ' 4 - 5 WEEKS = 1000 - 32970' ' 5 - 6 WEEKS = 59062 - 655969' ' 6 - 8 WEEKS = 71588 - 573746' ' 8 - 12 WEEKS = 92948 - 016277' Performed By: #### 1 [id number] #### [facility] [address] [place] [address] CBC w/ Auto Diffon Erythrocyte distribution width (RBC) [Ratio] 18.0 % High 10.9-14.2 [facility] Comment on above: Performed By: #### 1 [id number] #### [facility] [address] [place] [address] Hematocrit (Bld) [Volume fraction] 35.9 % Normal 34.0-46.0 [facility] Comment on above: Performed By: #### 1 [id number] #### [facility] [address] [place] [address] Hemoglobin (Bld) [Mass/Vol] 11.8 g/dL Low 12.0-16.0 [facility] Comment on above: Performed By: #### 1 [id number] #### [facility] [address] [place] [address] MCH (RBC) [Entitic mass] 24.1 pg Low 27.0-34.0 [facility] Comment on above: Performed By: #### 1 [id number] #### [facility] [address] [place] [address] MCHC (RBC) [Mass/Vol] 32.8 g/dL Normal 31.4-36.0 [facility] Comment on above: Performed By: #### 1 [id number] #### [facility] [address] [place] [address] MCV (RBC) [Entitic vol] 73.6 fL Low 80.0-100.0 [facility] Comment on above: Performed By: #### 1 [id number] #### [facility] [address] [place] [address] Platelet mean volume (Bld) [Entitic vol] 8.4 fL Normal 6.4-10.8 [facility] Comment on above: Performed By: #### 1 [id number] #### [facility] [address] [place] [address] Platelets (Bld) [#/Vol] 304.0 E9/L Normal 150.0-500.0 [facility] Comment on above: Performed By: #### 1 [id number] #### [facility] [address] [place] [address] RBC (Bld) [#/Vol] 4.9 E12/L Normal 4.3-5.9 [facility] Comment on above: Performed By: #### 1 [id number] #### [facility] [address] [place] [address] WBC corrected for nucl RBC Auto (Bld) [#/Vol] 7.6 E9/L Normal 4.0-11.0 [facility] Comment on above: Performed By: #### 1 [id number] #### [facility] [address] [place] [address] CHEMISTRYOrdered By: SYSTEM SYSTEM on 01-26-2023 Anion [...] 199 mg/dL [facility] Chem HCG.beta subunit Qn 023847 m[IU]/mL High 1 - 3 mIU/m L [facility] Comment on above: Result Comment: 'F N ON < 1 - 3' ' 0.2 - 1 WEEK = 5 TO 50' ' 1 - 2 WEEKS = 50 - 500' ' 2 - 3 WEEKS = 100 - 5000' ' 3 - 4 WEEKS = 500 - 89229' ' 4 - 5 WEEKS = 1000 - 41586' ' 5 - 6 WEEKS = 80943 - 839176' ' 6 - 8 WEEKS = 68743 - 821028' ' 8 - 12 WEEKS = 54642 - 075236' Potassium [Moles/Vol] 3.6 mmol/L Normal 3.5 - 5.3 mmol/L [facility] Sodium [Moles/Vol] 136 mmol/L Normal 135 - 145 mmol/L [facility] Urea nitrogen [Mass/Vol] 10 mg/dL Normal 5 - 21 mg/d L [facility] Urea nitrogen/Creatinine [Mass ratio] 17 mg/mg Normal 10 - 20 [facility] Consent for Treatmenton 01-06 Consent for Treatment [id number] A6#1.00TIFF Normal [facility] Discharge Instructionson Discharge Instructions [id number] 929#1.00TIFF Normal [facility] ED Clinical Summaryon 2022 ED Clinical Summary [place] [id number] ED Clinical Summary Person Information Name: JORDIN TYLER Kristan/[facility] Age: 18 Years : 2005 Sex: Female Language: Afghan PCP: MARK STONE Marital Status: Single Phone: [phone] Visit Id: Visit Reason: Abdominal pain - [...] 01/26/2023 21:19:18 ADDRESS: [address] [phone] PHYS DOC NOTES: MEDICAL INFORMATION: Prescriptions Given: [...] Instructions: Morning Sickness; Nausea and Vomiting, Adult, Idjz-wz-Bgjf Follow up: With: Address: When: Ras [address], [facility] [place] [address] [address] [facility] (1) In 3 days 01/29/2023 Comments: Follow-up with your primary care provider in 3 to 5 days. If symptoms worsen, do not improve, or new symptoms arise please report back to emergency department for further evaluation. With: Address: When: MARK STONE In 3 days DIAGNOSIS: Nausea and vomiting during Normal [facility] ED Patient Education Noteon 01-26-2023 ED Patient [...] ? Low-calorie sports drinks. ? Eat bland, uvqa-hw-dcfksx foods in small amounts as you are able, such as: ? Bananas. ? Applesauce. ? Rice. ? Low-fat (lean) meats. ? [place]. ? Crackers. ? Avoid drinking fluids that have a lot of sugar or caffeine in them. This includes energy drinks, sports drinks, and soda. ? Avoid alcohol. ? Avoid spicy or fatty foods. General instructions ? Take fugk-lqw-uvqxisb and prescription medicines only as told by your doctor. ? Drink enough fluid to keep your pee (urine) pale yellow. ? Wash your hands often with soap and water for at least 20 seconds. If you cannot use soap and water, use hand seismograph recorder. ? Make sure that everyone in your [...] doctor about eating and drinking. ? Take uial-snj-gusvbph and prescription medicines only as told by your doctor. ? Contact your doctor if your symptoms get worse or you have new symptoms. ? Keep all follow-up visits. This information is not intended to replace advice given to you by your health care provider. Make sure you discuss any questions you have with your health care provider. Document Revised: 07/29/2021 Document Reviewed: 07/29/2021 [employer] Patient Education ? 2022 [employer] Obstetrics and Gynecology Morning Sickness Morning sickness [...] condition i (more content not included)... 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 It is important that you follow up with a doctor, nurse practitioner, or physician?s pathology assistant for ongoing care. If your symptoms become worse or you do not improve as expected and you are unable to reach your usual health care provider, you should return to the Emergency Department. We are available 24 hours a day. JORDIN TYLER has been given the following list of patient education materials, prescriptions and follow-up instructions: Follow-up Instructions: With: Address: When: Ras Miller [address] [place] [address] [facility] (1) In 3 days 01/29/2023 Comments: Follow-up [...] Materials: Morning Sickness; Nausea and Vomiting, Adult, Edlu-hw-Vcrw A MESSAGE TO ALL PATIENTS REGARDING OPIOIDS PRESCRIPTION OPIOIDS: WHAT YOU NEED TO KNOW Prescription opioids can be used to help relieve ywbnysgw-qd-fwgtbd pain and are often prescribed following a [...] (www.fda.gov/Drugs/ Reso (more content not included)... Normal [facility] HEMATOLOGYOrdered By: SYSTEM SYSTEM on 01-26-2023 Basophils/100 [...] LM Ql (Urine sed) TRACE Normal Trace [facility] Comment on above: Performed By: #### 1 [id number] #### [facility] [address] [place] [address] Bilirubin Ql (U) Negative Normal Negative [facility] Comment on above: Performed By: #### 1 [id number] #### [facility] [address] [place] [address] Clarity (U) CLEAR Normal Clear [facility] Comment on above: Performed By: #### 1 [id number] #### [facility] [address] [place] [address] Color (U) YELLOW Normal Yellow [facility] Comment on above: Performed By: #### 1 [id number] #### [facility] [address] [place] [address] Epithelial cells.squamous LM.HPF (Urine sed) [#/Area] 5-8 Normal 0-2 [facility] Comment on above: Performed By: #### 1 [id number] #### [facility] [address] [place] [address] Glucose Test strip (U) [Mass/Vol] Negative Normal Negative [facility] Comment on above: Performed By: #### 1 [id number] #### [facility] [address] [place] [address] Hemoglobin Ql (U) Negative Normal Negative [facility] Comment on above: Performed By: #### 1 [id number] #### [facility] [address] [place] [address] Ketones (U) [Mass/Vol] 3+ Abnormal Negative [facility] Comment on above: Performed By: #### 1 [id number] #### [facility] [address] [place] [address] [place].plasma/[place].R BC (Bld) [Mass ratio] 0-3 Normal 0-3 [facility] Comment on above: Performed By: #### 1 [id number] #### [facility] [address] [place] [address] Mucus Ql (Urine sed) TRACE Normal [facility] Comment on above: Performed By: #### 1 [id number] #### [facility] [address] [place] [address] Nitrite Ql (U) Negative Normal Negative [facility] Comment on above: Performed By: #### 1 [id number] #### [facility] [address] [place] [address] pH (U) 6.0 [pH] Invalid Interpretation Code 5.0-9.0 [facility] Comment on above: Performed By: #### 1 [id number] #### [facility] [address] [place] [address] Protein (U) [Mass/Vol] TRACE Abnormal Negative [facility] Comment on above: Performed By: #### 1 [id number] #### [facility] [address] [place] [address] Specific gravity (U) [Rel density] >=1.030 Invalid Interpretation Code 1.005-1.030 [facility] Comment on above: Performed By: #### 1 [id number] #### [facility] [address] [place] [address] Type of Urine collection method Clean Catch Normal [facility] Comment on above: Performed By: #### 1 [id number] #### [facility] [address] [place] [address] Urobilinogen Qn (U) 0.2 {Karri'U}/dL Normal 0.0-1.0 [facility] Comment on above: Performed By: #### 1 [id number] #### [facility] [address] [place] [address] WBC Auto Ql (U) Negative Normal Negative [facility] Comment on above: Performed By: #### 1 [id number] #### [facility] [address] [place] [address] WBC LM.HPF (Urine sed) [#/Area] 6-15 Abnormal 0-5 [facility] Comment on above: Performed By: #### 1 [id number] #### [facility] [address] [place] [address] URINALYSISOrdered By: Raman Trejo on 01-26-2023 Bacteria [...] Interpretation Code Negative [facility] UA Auto SS [place].plasma/[place].R BC (Bld) [Mass ratio] 0-3 /HPF Normal [...] [facility] UA Auto SS Urobilinogen Qn (U) 0.7210999 {Karri'U}/dL Normal 0.0 - 1.0 EU/dL [facility] UA Auto SS WBC Auto Ql (U) Negative (01/26/23 8:39 PM) Normal Negative [facility] UA Auto SS WBC LM.HPF (Urine sed) [#/Area] 6-15 /HPF Invalid Interpretation Code 0-5/HPF [facility] UA Auto SS eGFRon 01-26-2023 GFR/1.73 sq M.predicted among non-blacks MDRD (S/P/Bld) [Vol rate/Area] mL/min/{1.73_m2} Normal >=59 [facility] Comment on above: Order Comment: Order added by Discern Expert. Performed By: #### 1 [id number] #### [facility] [address] [place] [address] Auto Diffon 01-23-2023 Basophils/100 WBC (Bld) 0.5 % Normal 0.0-2.0 [facility] Comment on above: Order Comment: Order Added by Discern Expert. Performed By: #### 1 [id number], 0612274 #### [facility] [address] [place] [address] Basophils/Leukocytes Auto (Bld) [Pure # fraction] 0.0 E9/L Normal 0.0-0.2 [facility] Comment on above: Order Comment: Order Added by Discern Expert. Performed By: #### 1 [id number], 6034082 #### [facility] [address] [place] [address] Eosinophils/100 WBC (Bld) 0.7 % Normal 0.0-8.0 [facility] Comment on above: Order Comment: Order Added by [place] Expert. Performed By: #### 1 5795648, 1287406 #### [facility] [address] [place] [address] Eosinophils/Leukocytes Auto (Bld) [Pure # fraction] 0.0 E9/L Normal 0.0-0.5 [facility] Comment on above: Order Comment: Order Added by [place]rington Expert. Performed By: #### 1 1021535, 6083687 #### [facility] [address] [place] [address] Lymphocytes/100 WBC (Bld) 21.4 % Normal 14.0-50.0 [facility] Comment on above: Order Comment: Order Added by [place]rington Expert. Performed By: #### 1 5854375, 2060222 #### [facility] [address] [place] [address] Lymphocytes/Leukocytes Auto (Bld) [Pure # fraction] 1.3 E9/L Normal 1.0-4.0 [facility] Comment on above: Order Comment: Order Added by Barrington Expert. Performed By: #### 1 9339784, 8200822 #### [facility] [address] [place] [address] Monocytes/100 WBC (Bld) 7.4 % Normal 4.0-14.0 F [facility] Comment on above: Order Comment: Order Added by Discern Expert. Performed By: #### 1 4676596, 5958780 #### [facility] [address] [place] [address] Monocytes/Leukocytes Auto (Bld) [Pure # fraction] 0.4 E9/L Normal 0.2-1.0 [facility] Comment on above: Order Comment: Order Added by Discern Expert. Performed By: #### 1 9480464, 0062944 #### [facility] [address] [place] [address] Neutrophils/100 WBC (Bld) 70.0 % Normal 36.0-75.0 [facility] Comment on above: Order Comment: Order Added by Discern Expert. Performed By: #### 1 4250849, 9771053 #### [facility] [address] [place] [address] Neutrophils/Leukocytes Auto (Bld) [Pure # fraction] 4.2 E9/L Normal 2.0-7.5 [facility] Comment on above: Order Comment: Order Added by Discern Expert. Performed By: #### 1 2270918, 1382779 #### [facility] [address] [place] [address] B hCG Qualon 01-23-2023 Beta HCG ( test) Ql Positive Normal [facility] Comment on above: Performed By: #### 2 175002, 64719772, 3566689, 5606155, 29656510, 5652374, 8846453, 6353604, 38707243 ####[facility] [address] [place] [address] BMPon 01-23-2023 Anion gap [Moles/Vol] 14 mmol/L Normal 6-16 [facility] Comment on above: Performed By: #### 2 601246, 77987339, 7427243, 3843154, 89604731, 9778080, 5753241, 5141952, 01249748 ####[facility] [address] [place] [address] BUN/Creat Ratio 18 No Units Normal 10-20 [facility] Comment on above: Performed By: #### 2 720766, 87312226, 2044155, 8534117, 81607561, 9324576, 4853364, 4802205, 45568256 ####[facility] [address] [place] [address] Calcium [Mass/Vol] 9.3 mg/dL Normal 8.9-11.1 [facility] Comment on above: Performed By: #### 2 230511, 23316543, 2219736, 2788593, 58315318, 0598851, 6948583, 7315434, 49811915 ####[facility] [address] [place] [address] Chloride [Moles/Vol] 103 mmol/L Normal 101-111 [facility] Comment on above: Performed By: #### 2 658069, 86925581, 3072053, 9735474, 00753067, 0184239, 0280853, 9434222, 44359409 ####[facility] [address] [place] [address] CO2 [Moles/Vol] 23 mmol/L Normal 21-31 [facility] Comment on above: Performed By: #### 2 763433, 95114091, 3164556, 1100150, 48145500, 9885992, 0758496, 8739511, 14020775 ####[facility] [address] [place] [address] Creatinine [Mass/Vol] 0.6 mg/dL Normal 0.5-1.3 [facility] Comment on above: Performed By: #### 2 792383, 38552385, 4921434, 3938479, 81157400, 2711794, 2951305, 1301840, 23814465 ####[facility] [address] [place] [address] Glucose [Mass/Vol] 84 mg/dL Normal 55-199 [facility] Comment on above: Performed By: #### 2 722115, 15405515, 3288233, 6154150, 34551765, 7303974, 2063373, 3601748, 34902722 ####[facility] [address] [place] [address] Potassium [Moles/Vol] 3.5 mmol/L Normal 3.5-5.3 [facility] Comment on above: Performed By: #### 2 115964, 37229015, 3432649, 7251630, 28296561, 1391562, 3759387, 9818216, 77107663 ####[facility] [address] [place] [address] Sodium [Moles/Vol] 136 mmol/L Normal 135-145 [facility] Comment on above: Performed By: #### 2 844090, 98280140, 0247193, 9522801, 19798519, 4853156, 7420516, 8819268, 45896028 ####[facility] [address] [place] [address] Urea nitrogen [Mass/Vol] 11 mg/dL Normal 5-21 [facility] Comment on above: Performed By: #### 2 561882, 45796079, 8999402, 6025369, 80228198, 5955157, 9900821, 4461446, 45319285 ####[facility] [address] [place] [address] BhCG Quanton 01-23-2023 [place] [address] mIU/mL High 1-3 [facility] Comment on above: Result Comment: 'F N ON < 1 - 3' ' 0.2 - 1 WEEK = 5 TO 50' ' 1 - 2 WEEKS = 50 - 500' ' 2 - 3 WEEKS = 100 - 5000' ' 3 - 4 WEEKS = 500 - 20362' ' 4 - 5 WEEKS = 1000 - 41397' ' 5 - 6 WEEKS = 58408 - 473864' ' 6 - 8 WEEKS = 85075 - 348796' ' 8 - 12 WEEKS = 35073 - 311258' Performed By: #### 1 0488563, 8508001 #### [facility] [address] [place] [address] CBC w/ Auto Diffon 3 Erythrocyte distribution width (RBC) [Ratio] 17.6 % High 10.9-14.2 [facility] Comment on above: Performed By: #### 2 763492, 38143969, 5107340, 6665253, 85160153, 9339837, 6728908, 8605967, 03614185 ####[facility] [address] [place] [address] Hematocrit (Bld) [Volume fraction] 33.9 % Low 34.0-46.0 [facility] Comment on above: Performed By: #### 2 062004, 64766585, 0211082, 9897552, 65653466, 3941609, 3011297, 9864765, 99856569 ####[facility] [address] [place] [address] Hemoglobin (Bld) [Mass/Vol] 11.3 g/dL Low 12.0-16.0 [facility] Comment on above: Performed By: #### 2 015114, 77272722, 8101492, 9931701, 51450587, 8243524, 3098941, 2917801, 30971918 ####[facility] [address] [place] [address] MCH (RBC) [Entitic mass] 24.5 pg Low 27.0-34.0 [facility] Comment on above: Performed By: #### 2 160240, 57380642, 9911376, 3126219, 10655953, 0845095, 6126290, 1518748, 99505839 ####[facility] [address] [place] [address] MCHC (RBC) [Mass/Vol] 33.3 g/dL Normal 31.4-36.0 [facility] Comment on above: Performed By: #### 2 845855, 18814811, 3964005, 0544279, 28280539, 1671085, 5153094, 5633950, 83967747 ####[address] [address] MCV (RBC) [Entitic vol] 73.6 fL Low 80.0-100.0 F [facility] Comment on above: Performed By: #### 2 587070, 02713648, 5437953, 9486031, 41077259, 4261980, 7321776, 7300880, 05250840 ####[facility] [address] [place] [address] Platelet mean volume (Bld) [Entitic vol] 8.1 fL Normal 6.4-10.8 [facility] Comment on above: Performed By: #### 2 380379, 62920511, 2597895, 7234682, 19951768, 2273802, 1247099, 7627376, 31042833 ####[address] [address] Platelets (Bld) [#/Vol] 306.0 E9/L Normal 150.0-500.0 [facility] Comment on above: Performed By: #### 2 336108, 61899482, 0416817, 8509559, 38498700, 7181104, 6122903, 2137602, 47831625 ####[address] [address] RBC (Bld) [#/Vol] 4.6 E12/L Normal 4.3-5.9 [facility] Comment on above: Performed By: #### 2 553935, 54456638, 2747060, 8707133, 99125121, 1230407, 8765819, 4187579, 05532625 ####[facility] [address] [place] [address] WBC corrected for nucl RBC Auto (Bld) [#/Vol] 6.0 E9/L Normal 4.0-11.0 [facility] Comment on above: Performed By: #### 2 090866, 68493639, 2932739, 8573733, 66469473, 9598244, 3270587, 1735439, 26169925 ####[address] [place] [address] CHEMISTRYOrdered By: SYSTEM SYSTEM on 01-23-2023 Albumin [...] 199 mg/[place] [address] m[IU]/mL High 1 - 3 mIU/mL [facility] Comment on above: Result Comment: 'F N ON < 1 - 3' ' 0.2 - 1 WEEK = 5 TO 50' ' 1 - 2 WEEKS = 50 - 500' ' 2 - 3 WEEKS = 100 - 5000' ' 3 - 4 WEEKS = 500 - 73581' ' 4 - 5 WEEKS = 1000 - 65172' ' 5 - 6 WEEKS = 29996 - 478627' ' 6 - 8 WEEKS = 09381 - 178097' ' 8 - 12 WEEKS = 00262 - 659333' Lipase Lvl 10 unit/L Low 13 - [...] Treatmenton 01-05 Consent for Treatment [id number] D9#1.00TIFF Normal [facility] Discharge Instructionson Discharge Instructions [id number] 12 [id number] 47#1.00TIFF Normal [facility] ED Clinical Summaryon 2022 ED Clinical Summary [place] [id number] ED Clinical Summary Person Information Name: JORDIN TYLER Kristan/[facility] Age: 18 Years : 2005 Sex: Female Language: Afghan PCP: MARK STONE Marital Status: Single Phone: [phone] Visit Id: Visit Reason: Dizziness; Nausea; N/V [...] 01/23/2023 17:56:52 01/23/2023 17:56:52 01/23/2023 17:56:52 ADDRESS: [address] [place] [address] [address] [id number] PHYS DOC NOTES: MEDICAL INFORMATION: Prescriptions Given: [...] Ras Miller [address], [address], [place], [place] [id number] Business (1) In 3 days 01/26/2023 DIAGNOSIS: Nausea/vomiting in Normal [facility] ED Note-Physicianon 01-24-20 ED Note-Physician Basic Information [...] sent for ultrasound which was discussed with health and safety technician. Intrauterine measuring 6 weeks, 5 days, heart rate 125. No gross abnormality. Patient was treated here with 2 L of IV fluid and antiemetics. Repeat evaluation of vomiting has been controlled patient taking oral hydration well. No abnormal vaginal discharge or bleeding. She started on nausea medication, vitamins and discharged home with [facility] follow-up. Patient was encouraged to return to [...] TID Follow-up With When Contact Information Ras iMller In 3 days 01/26/[address], [address] [place] [address]- Business (1) Additional Instructions: Patient Education Nausea and Vomiting, Adult Attestation Patient seen and evaluated by the physician pathology assistant. Attending physician was present in the emergency department and supervised care. This visit was performed by both the physician and an APC. I performed all aspects of the M (more content not included)... Normal [facility] Comment on above: Result Comment: Elec tronically [...] added (diluted fruit juice). ? Eat bland, szxp-so-prolce foods in small amounts as you are able. These foods include bananas, applesauce, rice, lean meats, toast, and crackers. ? Avoid fluids that contain a lot of sugar or caffeine, such as energy drinks, sports drinks, and soda. ? Avoid alcohol. ? Avoid spicy or fatty foods. General instructions ? Take evuo-jyi-qeomujl and prescription medicines only as told by your health care provider. ? Drink enough fluid to keep your urine pale yellow. ? Wash your hands often using soap and water for at least 20 seconds. If soap and water are not available, use hand seismograph recorder. ? Make sure that everyone in your [...] and drinking to prevent dehydration. ? Take dgmq-qpe-dqztwtt and prescription medicines only as told by [...] provider. Document Revised: 07/29/2021 Document Reviewed: 07/29/2021 [employer] Patient Education ? 2022 [employer] Normal [facility] ED Patient Summaryon 023 ED Patient Summary [address] [address] Patient Discharge Instructions Person Information Name: JORDIN TYLER Age: 18 Years Arrival Date: 01/23/2023 11:31:15 Discharge Diagnosis: Nausea/vomiting in Primary Care Physician: MARK STONE Provider Information Primary Provider: Steven Alatorre DO Advanced Self Propelled Mining Machine Operator:Colby Ayers PA-C The exam and treatment you received in the Emergency Department were for an urgent problem and are not intended as complete care. It is important that you follow up with a doctor, nurse practitioner, or physician?s pathology assistant for ongoing care. If your symptoms become worse or you do not improve as expected and you are unable to reach your usual health care provider, you should return to the Emergency Department. We are available 24 hours a day. JORDIN TYLER has been given the following list of patient education materials, prescriptions and follow-up instructions: Follow-up Instructions: With: Address: When: Ras Paul [address] [place] [address] Business (1) In 3 days 01/26/2023 In the event that this physician does not participate in your insurance network, please consult with your insurance company to find a nearby participating provider. Patient Education Materials: Nausea and Vomiting, Adult A MESSAGE TO ALL PATIENTS REGARDING OPIOIDS PRESCRIPTION OPIOIDS: WHAT YOU NEED TO KNOW Prescription opioids can be used to help relieve lzgttvbs-bt-ixulqb pain and are often prescribed following a [...] be struggling with addiction, tell your health child care supervisor and ask for guidance or call [facility]?S National Helpline at [phone] (more content not included)... Normal [facility] HEMATOLOGYOrdered By: Brandon Sweeney on 01-23-2023 Anisocytosis [...] 01-23-2023 Albumin [Mass/Vol] 4.4 g/dL Normal 3.3-5.0 [facility] Comment on above: Performed By: #### 2 716988, 76063048, 1929415, 5271159, 40254077, 0156864, 1502751, 9961520, 44109967 ####[facility] [address] [place] [address] Albumin/Globulin [Mass ratio] 1.3 {ratio} Normal 1.1-2.2 [facility] Comment on above: Performed By: #### 2 710239, 09295781, 8758027, 3723100, 17807985, 7106735, 9689953, 1271443, 89094235 ####[facility] [address] [place] [address] Alk Phos 107 Int._Unit/L High 21-98 [facility] Comment on above: Performed By: #### 2 538644, 98356399, 0529784, 2182476, 39716618, 7053253, 5590465, 4631806, 88045913 ####[facility] [address] [place] [address] ALT 71 Int._Unit/L High 6-46 [facility] Comment on above: Performed By: #### 2 929339, 55682309, 6576273, 6223922, 47082041, 0334093, 3710808, 1592309, 26170891 ####[facility] [address] [place] [address] AST 60 Int._Unit/L High 5-43 [facility] Comment on above: Performed By: #### 2 112751, 27512579, 6409538, 2887937, 88451584, 3680804, 7685786, 3835136, 80100056 ####[facility] [address] [place] [address] Bili Direct 0.2 mg/dL Normal 0.0-0.4 [facility] Comment on above: Performed By: #### 2 686135, 26302937, 5816493, 0573908, 84705609, 3467552, 2896021, 7197957, 45700257 ####[facility] [address] [place] [address] Bili Indirect 0.2 mg/dL Normal 0.1-0.9 [facility] Comment on above: Performed By: #### 2 262981, 94622166, 3365533, 6883209, 17238461, 6900574, 9532671, 7496016, 52111747 ####[facility] [address] [place] [address] Bili Total 0.4 mg/dL Normal 0.0-1.1 [facility] Comment on above: Performed By: #### 2 066091, 34053298, 3912892, 8846152, 25050198, 8228365, 9677281, 2532420, 70473667 ####[facility] [address] [place] [address] Globulin (S) [Mass/Vol] 3.3 g/dL Normal 1.4-4.0 [facility] Comment on above: Performed By: #### 2 236347, 07151630, 3389847, 7859779, 77477235, 4615871, 3135109, 2817677, 93808174 ####[facility] [address] [place] [address] Protein [Mass/Vol] 7.7 g/dL Normal 6.0-7.8 [facility] Comment on above: Performed By: #### 2 109980, 75792632, 6726990, 6464442, 06725694, 7311067, 0940485, 3204812, 90930988 ####[facility] [address] [place] [address] Lipase Levelon 01-23-2023 Lipase Lvl 10 unit/L Low 13-58 [facility] Comment on above: Performed By: #### 2 656265, 35709336, 8536461, 0866563, 46903583, 1400340, 0966206, 3716784, 98118685 ####[facility] [address] [place] [address] Morphon 01-23-2023 Anisocytosis Ql (Bld) Present Normal [facility] Comment on above: Order Comment: Order Added by Discern Expert. Performed By: #### 2 386962, 92086079, 0915783, 8783616, 85727972, 5169811, 5510068, 5829338, 23109213 ####[facility] [address] [place] [address] Hypochromia Auto Ql (Bld) Present Normal [facility] Comment on above: Order Comment: Order Added by Discern Expert. Performed By: #### 2 [id number], [id number], [id number], [id number], [id number], 0247882, 1664441, [id number], [id number] ####[facility] [address] [place] [address] Microcytes Ql (Bld) Present [facility] Comment on above: Order Comment: Order Added by Discern Expert. Performed By: #### 2 [id number], [id number], 4430435, 6329155, [id number], [id number], 0551406, 5944101, [id number] ####[facility] [address] [place] [address] Morphology Cliff (Bld) [Interp] See Morphology Normal [facility] Comment on above: Order Comment: Order Added by Discern Expert. Performed By: #### 2 [id number], [id number], 3719054, 1149937, 13494057, 3302292, 4195671, 6225995, 10813751 ####[facility] [address] [place] [address] SEROLOGYOrdered By: Kath Harden on 01-23-2023 Beta HCG ( test) Ql Positive (01/23/23 12:15 PM) Normal [facility] [place] Sero UA With Cult Reflexon 2022 Bilirubin Ql (U) 1+ Abnormal Negative [facility] Comment on above: Performed By: #### 1 [id number] #### [facility] [address] [place] [address] Clarity (U) CLEAR Normal Clear [facility] Comment on above: Performed By: #### 1 [id number] #### [facility] [address] [place] [address] Color (U) DARK KIMMY Invalid Interpretation Code [facility] Comment on above: Performed By: #### 1 [id number] #### [facility] [address] [place] [address] Epithelial cells.squamous LM.HPF (Urine sed) [#/Area] 0-2 Normal 0-2 [facility] Comment on above: Performed By: #### 1 [id number] #### [facility] [address] [place] [address] Glucose Test strip (U) [Mass/Vol] Negative Normal Negative [facility] Comment on above: Performed By: #### 1 [id number] #### [facility] [address] [place] [address] Hemoglobin Ql (U) Negative Normal Negative [facility] Comment on above: Performed By: #### 1 [id number] #### [facility] [address] [place] [address] Ketones (U) [Mass/Vol] 3+ Abnormal Negative [facility] Comment on above: Performed By: #### 1 [id number] #### [facility] [address] [place] [address] [place].plasma/[place].R BC (Bld) [Mass ratio] 0-3 Normal 0-3 [facility] Comment on above: Performed By: #### 1 [id number] #### [facility] [address] [place] [address] Mucus Ql (Urine sed) TRACE Normal Fish [facility] Comment on above: Performed By: #### 1 [id number] #### [facility] [address] [place] [address] Nitrite Ql (U) Negative Normal Negative [facility] Comment on above: Performed By: #### 1 [id number] #### [facility] [address] [place] [address] pH (U) 6.5 [pH] Invalid Interpretation Code 5.0-9.0 [facility] Comment on above: Performed By: #### 1 [id number] #### [facility] [address] [place] [address] Protein (U) [Mass/Vol] 1+ Abnormal Negative [facility] Comment on above: Performed By: #### 1 [id number] #### [facility] [address] [place] [address] Specific gravity (U) [Rel density] 1.025 Invalid Interpretation Code 1.005-1.030 [facility] Comment on above: Performed By: #### 1 [id number] #### [facility] [address] [place] [address] Type of Urine collection method Clean Catch Normal [facility] Comment on above: Performed By: #### 1 [id number] #### [facility] [address] [place] [address] Urobilinogen Qn (U) 1.0 {Karri'U}/dL Normal 0.0-1.0 [facility] Comment on above: Performed By: #### 1 [id number] #### [facility] [address] [place] [address] WBC Auto Ql (U) Negative Normal Negative [facility] Comment on above: Performed By: #### 1 [id number] #### [facility] [address] [place] [address] WBC LM.HPF (Urine sed) [#/Area] 0-5 Normal 0-5 [facility] Comment on above: Performed By: #### 1 [id number] #### [facility] [address] [place] [address] URINALYSISOrdered By: Maranda Muñoz on 01-23-2023 Bilirubin [...] Interpretation Code Negative [facility] UA Auto SS [place].plasma/[place].R BC (Bld) [Mass ratio] 0-3 /HPF Normal [...] MC UA Auto SS Urobilinogen Qn (U) 1.2477225 {Karri'U}/dL Normal 0.0 - 1.0 EU/dL FT [...] Trauma, pain. Nausea and vomiting. Unknown LMP. ALSIHA from average ultrasound age: 0809/13/2023 Composite Ultrasound [...] corresponding gestational age +/- 1 week are: [place] Rump Length: 0.7 cm Composite Ultrasound Age: [...] 2 Transabdominal Ultrasound Performed FHR (bpm) 125 [place] Rump Length (in cm) 0.7 Normal [facility] eGFRon 01-23-2023 GFR/1.73 sq M.predicted among non-blacks MDRD (S/P/Bld) [Vol rate/Area] mL/min/{1.73_m2} Normal >=59 [facility] Comment on above: Order Comment: Order added by Discern Expert. Performed By: #### 2 [id number], [id number], 4013413, 6487443, 77435902, 1381998, 3196678, 6525148, 88949331 ####[facility] [address] [place] [address] Interdisciplinary Note - Soc ial Workeron 01-15-2023 Interdisciplinary Note - Neuropathologist This SW attempted to reach patient again today regarding needed resources. Patient again did not answer and voicemails are not able to be left. SW will remain available. Normal [facility] Interdisciplinary Note - Soc ial Workeron 01-08-2023 Interdisciplinary Note - Neuropathologist This SW attempted to contact patient today [...] being full. SW will remain available. Normal [facility] Grp A Strp PCRon 01-02-2023 Grp A Strp Intrl Ctrl Pass Normal Fis [facility] Comment on above: Performed By: #### 1 [id number] #### [facility] [address] [place] [address] S. pyogenes DNA TIM+probe Ql (Throat) Positive Abnormal [facility] Comment on above: Result Comment: Test ing performed using DNA amplification. Performed By: #### 1 [id number] #### [facility] [address] [place] [address] Family Medicine Office/Clini c Noteon 01-01-2023 Family [...] with voice recognition software. Occasional wrong-word or ?lknkj-a-iicj? substitutions may have occurred due to the inherent limitations of voice recognition software. 17 yo female presents today with cc of bodyaches and headache concern for COVID-19 or strep. Patient states she has a 4-month-old and a 1 and mpke-gzzp-tlj. States she currently does not have custody [...] emergency department. Will place a referral to nursing home social worker see if we can get case management to help her out as she states she does not currently have her insurance card if she should be able to log online and take it 1 she has difficulty with transportation and walks qwcl-wvq-fqsob to work currently at [employer]. Will see if we can get her [...] understanding. Ordered: Group A Strep by PCR Neuropathologist - Ambulatory Referral 2. BMI 28.0-28.9,adult (Z68.28: Body mass index [BMI] 28.0-28.9, adult) The standard range for ages 18 and older is >=18.5 and < 25 kg/m2. Your BMI today was above this range, this falls in the overweight to obese category and there are medical benefits to weight loss. We can offer couns (more content not included)... Normal [facility] Comment on above: Result Comment: Elec tronically Signed By: Alex ROBERT, Alon Mercedes\.br\Date and Time Signed: 01/01/23 16:26 EST Patient Letter FTon 2022 Patient Letter [facility] [address], [facility] [place] [phone] January 01, 2023 JORDIN TYLER [address] [address] : 2005 Please excuse JORDIN TYLER from [...] illness. Provider Signature: Alon Johnson PA-C Physician Pharmacy Billing Adjudicator [address] [place] [address] [place] [address] [facility] C Urineon 12-09-2022 Bacteria identified Cx [...] Locations R1: This test was performed at: [facility], [address] [place] [address], [address] , , [facility] Comment on above: Performed By: #### 1 [id number] #### [facility] [address] [place] [address] Discharge Instructionson Discharge Instructions [id number] 103#1.00TIFF [facility] ED Clinical Summaryon 2022 ED Clinical Summary [address] [address] ED Clinical Summary Person Information Name: JORDIN TYLER[place] Age: 17 Years : 2005 Sex: Female Language: Afghan PCP: NONE, XXXX Marital Status: Single Phone: [phone] Visit Id: Visit Reason: Test; PREG TEST [...] 12/08/2022 00:29:17 12/08/2022 00:29:17 12/08/2022 00:29:17 ADDRESS: [address] [place] [id number] [facility] NOTES: MEDICAL INFORMATION: Prescriptions Given: Medications to Continue with No Changes Other Medications ibuprofen (ibuprofen 600 mg Tab) 1 Tablets By Mouth every 6 hours. Refills: 0. PATIENT EDUCATION INFORMATION: Instructions: Home Test Information Follow up: With: Address: When: Cara Romero, [place] , [facility] [address] [place] [address] [facility] ([address] In 3 days 12/10/2022 Comments: Few concerns about continued can take up test at home in approximately 1 week. Please follow-up with your primary care doctor next 2 to 3 days. Please return to the ED for any new or worsening symptoms. 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 She is to [...] [place] In 3 days 12/10/[address], [address] [place] [address]- [facility] (1) Additional Instructions: Few concerns about continued [...] 23:15:00) UA (more content not included)... Normal [facility] Comment on above: Result Comment: Elec tronically [...] Reviewed: 10/25/2020 Elsevier Patient Education ? 2022 [employer] Normal [facility] ED Patient Summaryon 023 ED Patient Summary [address] [address] Patient Discharge Instructions Person Information Name: JORDIN TYLER Age: 17 Years Arrival Date: 12/07/2022 22:58:31 Discharge Diagnosis: Encounter for medical screening examination Primary Care Physician: NONE, XXXX Provider Information Primary Provider: Damaris Jean Baptiste DO Advanced [employer] Machine Operator:None The exam and treatment you received in the Emergency Department were for an urgent problem and are not intended as complete care. It is important that you follow up with a doctor, nurse practitioner, or physician?s pathology assistant for ongoing care. If your symptoms become worse or you do not improve as expected and you are unable to reach your usual health care provider, you should return to the Emergency Department. We are available 24 hours a day. JORDIN TYLER has been given the following list of patient education materials, prescriptions and follow-up instructions: Follow-up Instructions: With: Address: When: Cara Bullard [facility] [address], Emmy C, [facility] [address] [place] [address] Business (1) In 3 days 12/10/2022 Comments: [...] opioids can be used to help relieve gusgkekw-cx-lgcmds pain and are often prescribed following a [...] Administration (www.fd (more content not included)... Normal [facility] Consent for Treatmenton Consent for Treatment [id number] 518#1.00TIFF Normal [facility] - Microbiology an d Antimicrobial susceptibilityOrdered By: Felicita Barrow on 12-07-2022 Bacteria identified Cx Nom (U) 1,000 cfu/ml Mixed skin contaminants [facility] SEROLOGYOrdered By: Stefani Trejo on 12-07-2022 HCG.beta subunit (U) [Moles/Vol] Negative Normal [facility] Man Sero U BetaHcg Qualon 12-07-2022 HCG.beta subunit (U) [Moles/Vol] Negative Normal [facility] Comment on above: Performed By: #### 1 [id number] #### [facility] [address] [place] [address] UA With Cult Reflexon 2022 Bacteria LM Ql (Urine sed) TRACE Normal Trace [facility] Comment on above: Performed By: #### 1 [id number] #### [facility] [address] [place] [address] Bilirubin Ql (U) Negative Normal Negative [facility] Comment on above: Performed By: #### 1 [id number] #### [facility] [address] [place] [address] Clarity (U) SL CLOUDY Abnormal Clear [facility] Comment on above: Performed By: #### 1 [id number] #### [facility] [address] [place] [address] Color (U) DARK YELLO Abnormal Yellow [facility] Comment on above: Performed By: #### 1 [id number] #### [facility] [address] [place] [address] Epithelial cells.squamous LM.HPF (Urine sed) [#/Area] 5-8 Normal 0-2 [facility] Comment on above: Performed By: #### 1 [id number] #### [facility] [address] [place] [address] Glucose Test strip (U) [Mass/Vol] Negative Normal Negative [facility] Comment on above: Performed By: #### 1 [id number] #### [facility] [address] [place] [address] Hemoglobin Ql (U) Negative Normal Negative [facility] Comment on above: Performed By: #### 1 [id number] #### [facility] [address] [place] [address] Ketones (U) [Mass/Vol] Negative Normal Negative [facility] Comment on above: Performed By: #### 1 [id number] #### [facility] [address] [place] [address] [place].plasma/[place].R BC (Bld) [Mass ratio] 0-3 Normal 0-3 [facility] Comment on above: Performed By: #### 1 [id number] #### [facility] [address] [place] [address] Mucus Ql (Urine sed) 3+ Normal Fish [facility] Comment on above: Performed By: #### 1 [id number] #### [facility] [address] [place] [address] Nitrite Ql (U) Negative Normal Negative [facility] Comment on above: Performed By: #### 1 [id number] #### [facility] [address] [place] [address] pH (U) 6.0 [pH] Invalid Interpretation Code 5.0-9.0 [facility] Comment on above: Performed By: #### 1 [id number] #### [facility] [address] [place] [address] Protein (U) [Mass/Vol] TRACE Abnormal Negative [facility] Comment on above: Performed By: #### 1 [id number] #### [facility] [address] [place] [address] Specific gravity (U) [Rel density] >=1.030 Invalid Interpretation Code 1.005-1.030 [facility] Comment on above: Performed By: #### 1 [id number] #### [facility] [address] [place] [address] Type of Urine collection method Clean Catch Normal [facility] Comment on above: Performed By: #### 1 [id number] #### [facility] [address] [place] [address] Urobilinogen Qn (U) 0.2 {Karri'U}/dL Normal 0.0-1.0 [facility] Comment on above: Performed By: #### 1 [id number] #### [facility] [address] [place] [address] WBC Auto Ql (U) Negative Normal Negative [facility] Comment on above: Performed By: #### 1 [id number] #### [facility] [address] [place] [address] WBC LM.HPF (Urine sed) [#/Area] 6-15 Abnormal 0-5 [facility] Comment on above: Performed By: #### 1 [id number] #### [facility] [address] [place] [address] URINALYSISOrdered By: Raman Trejo on 12-07-2022 Bacteria LM Ql (Urine sed) Trace /HPF Normal Trace/HPF [facility] UA Auto SS Bilirubin Ql (U) Negative [...] PM) Normal Negative [facility] UA Auto SS [place].plasma/[place].R BC (Bld) [Mass ratio] 0-3 /HPF Normal [...] [facility] UA Auto SS Urobilinogen Qn (U) 0.4203531 {Karri'U}/dL Normal 0.0 - 1.0 EU/dL [facility] [...] and Complexity of Problems Differential Diagnosis: [] [facility] Data External documents reviewed: [] My EKG [...] for 10 day(s), 20 tab(s), Refill(s) 0, [facility][id number], 165.1, cm, 10/30/22 10:55:00 EDT, Height/Length Dosing, 80.5, kg, 10/30/22 10:55:00 EDT, Weight Dosing Disposition Plan Patient Discharge Condition Stable Discharge Disposition To home Discharge Prescription List Prescriptions Augmentin 875 mg-125 mg Tab, 1 tab(s), Oral, q12hr Follow-up With When Contact Information Dental: [facility] [phone] In 3 days 11/02/2022 EDT Additional Instructions: Dental: [facility] [phone] In 3 days 11/02/2022 EDT Additional Instructions: Dental: [facility] [phone] In 3 days 11/02/2022 EDT Additional Instructions: Patient Education Dental Pain, Dphx-mk-Toyd Attestation Patient seen and evaluated by the physician pathology assistant. Attending physician was present in the emergency department and supervised care. This visit was performed by both the physician and an APC. I performed all aspects of the MDM as documented. This report was transcribed using voice recognition software. Every effort was made to ensure accuracy, however, inadvertently computerized chemical weigher mistakes may be present. Appropriate healthcare PPE [...] Viral gastroenteritis (more content not included)... Normal [facility] Comment on above: Result Comment: Elec tronically Signed By: Donavan Lawson PA-C\.br\Date and Time Signed: 10/30/22 12:22 EDT\.br\Electronically Co-Signed By: Steven Alatorre DO\.br\Date and Time Co-Signed: 10/31/22 08:00 EDT Consent for Treatmenton 10-07 Consent for Treatment [id number] 21#1.00CD:127 Normal [facility] Discharge Instructionson Discharge Instructions [id number] 634#1.00CD:127 Normal [facility] ED Clinical Summaryon 2022 ED Clinical Summary [place] [id number] ED Clinical Summary Person Information Name: JORDIN TYLER Kristan/[facility] Age: 17 Years : 2005 Sex: Female Language: Afghan PCP: NONE, XXXX Marital Status: Single Phone: [phone] Visit Id: Visit Reason: Dental pain; MOUTH [...] 10/30/2022 11:19:01 10/30/2022 11:19:01 10/30/2022 11:19:01 ADDRESS: [address] [place] [id number] [facility] DOC NOTES: MEDICAL INFORMATION: Prescriptions Given: New Medications [id number], [address] [place], [place] [id number], [phone] amoxicillin-clavula aj (Augmentin 875 mg-125 mg Tab) 1 Tablets By Mouth every 12 hours for 10 Days. Refills: 0. Medications to Continue with No Changes Other Medications ibuprofen (ibuprofen 600 mg Tab) 1 Tablets By Mouth every 6 hours. Refills: 0. PATIENT EDUCATION INFORMATION: Instructions: Dental Pain, Afbo-ow-Hwxm Follow up: With: Address: When: Dental: [facility] [phone] In 3 days 11/02/2022 With: Address: When: Dental: [facility] [email or web address] [phone] In 3 days 11/02/2022 With: Address: When: Dental: [facility] [phone] In 3 days 11/02/2022 DIAGNOSIS: Pain, dental Normal [facility] ED Patient Education Noteon 10-30-2022 ED Patient [...] these instructions at home: Medicines ? Take gvgx-ekt-berfkva and prescription medicines only as told by [...] to the area. Brushing your teeth ? Stevens your teeth twice a day using a [...] when you eat or drink. ? Take mybm-fun-ybqycov and prescription medicines only as told by your dentist. ? Watch your dental pain for any changes. Let your dentist know if symptoms get worse. This information is not intended to replace advice given to you by your health care provider. Make sure you discuss any questions you have with your health care provider. Document Revised: 10/27/2020 Document Reviewed: 10/27/2020 ElseSpark[employer] Patient Education ? 2022 [employer] [facility] ED Patient Summaryon 023 ED Patient Summary [place] [id number] Patient Discharge Instructions Person Information Name: JORDIN TYLER Age: 17 Years Arrival Date: 10/30/2022 10:43:07 Discharge Diagnosis: Pain, dental Primary Care Physician: NONE, XXXX Provider Information Primary Provider: Steven Alatorre DO Advanced Self [employer]elled [employer] Machine Operator:None The exam and treatment you received in the Emergency Department were for an urgent problem and are not intended as complete care. It is important that you follow up with a doctor, nurse practitioner, or physician?s pathology assistant for ongoing care. If your symptoms become worse or you do not improve as expected and you are unable to reach your usual health care provider, you should return to the Emergency Department. We are available 24 hours a day. JORDIN TYLER has been given the following list of patient education materials, prescriptions and follow-up instructions: Follow-up Instructions: With: Address: When: Dental: [facility] [phone] In 3 days 11/02/2022 With: Address: When: Dental: [facility] [phone] In 3 days 11/02/2022 With: Address: When: Dental: [facility] [phone] In 3 days 11/02/2022 In the event that this physician does not participate in your insurance network, please consult with your insurance company to find a nearby participating provider. Patient Education Materials: Dental Pain, Xztg-of-Jwom A MESSAGE TO ALL PATIENTS REGARDING OPIOIDS PRESCRIPTION OPIOIDS: WHAT YOU NEED TO KNOW Prescription opioids can be used to help relieve abgutevi-kv-lowdti pain and are often prescribed following a [...] care professio (more content not included)... Normal [facility] Nursing Assessmenton 023 Nursing Assessment [id number] 43#1.00CD:127 Normal [facility] Insurance Correspondence Off iceon 08-11-2022 Insurance Correspondence Office [id number] 578#1.00CD:127 Normal [facility] Nursing Assessmenton 023 Nursing Assessment [id number]#1.00CD:127 Normal [facility] Chlamydia/Gonococcus, NAAon 08-10-2022 C. trachomatis rRNA TIM+probe Ql (Unsp spec) Negative Invalid Interpretation Code Negative [facility] Comment on above: Performed By: #### 1 [id number] #### [facility] [address] [place] [address] N. gonorrhoeae rRNA TIM+probe Ql (Unsp spec) Negative Invalid Interpretation Code Negative [facility] Comment on above: Result Comment: [facility] at: [facility] [address] [place], [place] [id number] MD Rodriguez Briones Performed By: #### 1 [id number] #### [facility] [address] [place] [address] Discharge Instructionson Discharge Instructions [id number] 409#1.00CD:127 Normal [facility] Inpatient Clinical Summaryon 08-10-2022 Inpatient Clinical Summary [address] [address] Clinical Summary Person Information Name: JORDIN TYLER Kristan/[facility] Age: 17 Years : 2005 Sex: Female PCP: NONE, XXXX Marital Status: Single Phone: [phone] Race: White Ethnicity: Non- or Language: Afghan Visit Id: Visit Reason: Speciality: Acuity: 2 PP Enc Type: Inpatient Med Service: Obstetrics Arrival: 08/07/2022 06:12:23 Discharge: 08/10/2022 12:40:00 Dispo Type: Home (Routine DC) Address: [address] [place] [id number] Provider Notes: Diagnosis: 37 weeks gestation of [...] Follow up: With: Address: When: Eduardo Butler [address] [place] [address] [place] [id number] Business (1) Within 6 weeks Comments: Call Dr if fever>100.5 F, heavy bleeding Call for any problems. Patient Education Information: Normal [facility] Inpatient Patient Summaryon 08-10-2022 Inpatient Patient Summary [address] [address] Patient Discharge Instructions PERSON INFORMATION [...] Follow up: With: Address: When: Eduardo Leach [place] [address] [address] Business (1) Within 6 weeks [...] Clinican/Nurse Signature Date MEDICATION LIST New Medications [id number], [address] [place], [place] [id number], [phone] ibuprofen (ibuprofen 600 mg Tab) 1 Tablets [...] to serve you. Thank you for choosing [facility] Normal [facility] C Urineon 08-09-2022 Bacteria identified Cx Nom [...] Locations R1: This test was performed at: [facility], [address] [place] [address], [address]- , , [facility] Comment on above: Performed By: #### 1 [id number] #### [facility] [facility] [address] [place] [address] CBC w/Indiceson 08-09-2022 Erythrocyte distribution width (RBC) [Ratio] 16.0 % High 10.9-14.2 [facility] Comment on above: Performed By: #### 1 [id number] #### [facility] [address] [place] [address] Hematocrit (Bld) [Volume fraction] 21.8 % Low 34.0-46.0 [facility] Comment on above: Performed By: #### 1 [id number] #### [facility] [address] [place] [address] Hemoglobin (Bld) [Mass/Vol] 7.1 g/dL Low 12.0-16.0 [facility] Comment on above: Performed By: #### 1 [id number] #### [facility] [address] [place] [address] MCH (RBC) [Entitic mass] 22.8 pg Low 27.0-34.0 [facility] Comment on above: Performed By: #### 1 [id number] #### [facility] [address] [place] [address] MCHC (RBC) [Mass/Vol] 32.6 g/dL Normal 31.4-36.0 [facility] Comment on above: Performed By: #### 1 [id number] #### [facility] [address] [place] [address] MCV (RBC) [Entitic vol] 69.9 fL Low 80.0-100.0 [facility] Comment on above: Performed By: #### 1 [id number] #### [facility] [address] [place] [address] Platelet mean volume (Bld) [Entitic vol] 9.1 fL Normal 6.4-10.8 [facility] Comment on above: Performed By: #### 1 [id number] #### [facility] [address] [place] [address] Platelets (Bld) [#/Vol] 154.0 E9/L Normal 150.0-500.0 [facility] Comment on above: Performed By: #### 1 [id number] #### [facility] [address] [place] [address] RBC (Bld) [#/Vol] 3.1 E12/L Low 4.3-5.9 [facility] Comment on above: Performed By: #### 1 [id number] #### [facility] [address] [place] [address] WBC corrected for nucl RBC Auto (Bld) [#/Vol] 8.1 E9/L Normal 4.0-11.0 [facility] Comment on above: Performed By: #### 1 [id number] #### [facility] [address] [place] [address] Group B Strep by PCRon 08-09 Group B Strep colonization by PCR Negative Normal Negative [facility] Comment on above: Performed By: #### 1 [id number] #### [facility] [address] [place] [address] HEMATOLOGYOrdered By: Ana Rivera on 08-09-2022 Erythrocyte [...] [Interp] See Morphology (08/09/22 5:58 AM) Normal [facility] HemeManSS Platelet mean volume (Bld) [Entitic vol] 9.1 fL Normal 6.4 - 10.8 fL FT HemeAutoSS Platelets (Bld) [#/Vol] 154.0 E9/L Normal 150. 0 - 500.0 E9/L FT HemeAutoSS RBC (Bld) [#/Vol] 3.1 E12/L Low 4.3 - 5.9 E12/L FT HemeAutoSS WBC corrected for nucl RBC Auto (Bld) [#/Vol] 8.1 E9/L Normal 4.0 - 11.0 E9/L [facility] HemeAuto[facility] Insurance Correspondence Off iceon 08-09-2022 Insurance Correspondence Office [id number] 27#1.00CD:127 Normal [facility] Insurance Correspondence Office [id number] 43#1.00CD:127 Normal [facility] Morphon 08-09-2022 Hypochromia Auto Ql (Bld) Present Normal [facility] Comment on above: Order Comment: Order Added by Discern Expert. Performed By: #### 1 [id number] #### [facility] [address] [place] [address] Microcytes Ql (Bld) Present Normal [facility] Comment on above: Order Comment: Order Added by Discern Expert. Performed By: #### 1 [id number] #### [facility] [address] [place] [address] Morphology Cliff (Bld) [Interp] See Morphology Normal [facility] Comment on above: Order Comment: Order Added by Discern Expert. Performed By: #### 1 [id number] #### [facility] [address] [place] [address] Progress Note-Physicianon Progress Note-Physician Patient: JORDIN TYLER Age: 17 years Sex: Female : 2005 Associated Diagnoses: None Author: Rohit CASE, Eduardo Mendez Basic Information PPD #1 from [facility]. She is well. Anemic, but stable Review [...] 2 tab(s), Oral, q6hr benzocaine-menthol topical 20%-0.5% [place] [F] 1 spray(s), Topical, q4hr calcium carbonate [...] Plan Condition: Stable. Plan Routine care. Normal [facility] Comment on above: Result Comment: Elec tronically Signed By: Rohit CASE, Eduardo Mendez\.br\Date and Time Signed: 08/09/22 11:29 EDT Vaccinationson 08-09-2022 Vaccinations [id number] 6#1.00CD:127 Normal [facility] Nursing Delivery Noteon 070 Nursing Delivery Note [...] BY FATHER, NO SIGNS OF DISTRESS Normal [facility] Nursing Delivery Note Infant Catch:0110 SPONTANEOUS Vaginal [...] NO SIGNS OF DISTRESS. BONDING APPROPRIATELY Normal [facility] Comment on above: Other Comment: WRONG PATIENT [...] Review: Problems (Active Problems Only) (SNOMED CT: 418339972, Onset: 11/05/21) Attention deficit hyperactivity disorder, combined type (SNOMED CT: 19819069, Onset: --) Dyspnea (SNOMED CT: 234031403, Onset: --) Finding related to (SNOMED CT: 867493700, Onset: --) Age mother conceived under 17 (Other: , Onset: --) Infection (SNOMED CT: 24126266, Onset: --) Delivery Summary Baby A Membrane [...] 3:01 E (more content not included)... Normal [facility] Comment on above: Result Comment: Elec tronically [...] \.br\.br\Da te: 01/18/22\.br \EGA: 8w5d \.br\Weight (lbs [facility] Comment on above: Result Comment: Elec tronically Signed By: Jerry WILSON DO\.br\Date and Time Signed: 08/08/22 00:08 EDT ABO/Rhon 08-07-2022 ABO/Rh Positive Invalid Interpretation Code [facility] Comment on above: Performed By: #### 1 [id number], [id number] #### [facility] [address] [place] [address] ABO/Rh History Checkon 08-07 ABO/Rh History Check Verified Hx Blood Type Normal [facility] Comment on above: Performed By: #### 1 [id number], [id number] #### [facility] [address] [place] [address] ABSCon 08-07-2022 ABSC Gel Interp Negative Normal [facility] Comment on above: Performed By: #### 1 [id number], [id number] #### [facility] [address] [place] [address] BLOOD BANKOrdered By: Brandie Garcia on 08-07-2022 ABO/Rh Interp Positive Invalid Interpretation Code [facility] BB Subsection ABSC Gel Interp Negative (08/07/22 12:49 PM) Normal [facility] BB Subsection Blood Bank ID#on 08-07-2022 BBID# [id number] Invalid Interpretation Code [facility] Comment on above: Performed By: #### 1 [id number], [id number] #### [facility] [address] [place] [address] CBC w/Indiceson 08-07-2022 Erythrocyte distribution width (RBC) [Ratio] 16.0 % High 10.9-14.2 [facility] Comment on above: Performed By: #### 2 614693, [id number] #### [facility] [address] [place] [address] Hematocrit (Bld) [Volume fraction] 25.6 % Low 34.0-46.0 [facility] Comment on above: Performed By: #### 2 569576, 90017585 #### [facility] [address] [place] [address] Hemoglobin (Bld) [Mass/Vol] 8.0 g/dL Low 12.0-16.0 [facility] Comment on above: Performed By: #### 2 373678, 25627099 #### [facility] [address] [place] [address] MCH (RBC) [Entitic mass] 21.9 pg Low 27.0-34.0 [facility] Comment on above: Performed By: #### 2 794103, [id number] #### [facility] [address] [place] [address] MCHC (RBC) [Mass/Vol] 31.3 g/dL Low 31.4-36.0 [facility] Comment on above: Performed By: #### 2 402604, 05076088 #### [facility] [address] [place] [address] MCV (RBC) [Entitic vol] 69.9 fL Low 80.0-100.0 F [facility] Comment on above: Performed By: #### 2 206780, 52393264 #### [facility] [address] [place] [address] Platelet mean volume (Bld) [Entitic vol] 8.6 fL Normal 6.4-10.8 [facility] Comment on above: Performed By: #### 2 996921, 08056110 #### [facility] [address] [place] [address] Platelets (Bld) [#/Vol] 232.0 E9/L Normal 150.0-500.0 [facility] Comment on above: Performed By: #### 2 340610, 28112474 #### [facility] [address] [place] [address] RBC (Bld) [#/Vol] 3.7 E12/L Low 4.3-5.9 [facility] Comment on above: Performed By: #### 2 033693, 93870637 #### [facility] [address] [place] [address] WBC corrected for nucl RBC Auto (Bld) [#/Vol] 8.6 E9/L Normal 4.0-11.0 [facility] Comment on above: Performed By: #### 2 152983, 46777076 #### [facility] [address] [place] [address] Consent for Procedure/Surger yon 08-07-2022 Consent for Procedure/Surgery [id number]#1.00CD:127 Normal [facility] Consent for Treatmenton Consent for Treatment [id number] 69#1.00CD:127 Normal [facility] Consent for Treatment [id number] 34#1.00CD:127 Normal [facility] Discharge Instructionson Discharge Instructions [id number]#1.00CD:127 Normal [facility] HEMATOLOGYOrdered By: Briseida Rose on 08-07-2022 Anisocytosis [...] 8.6 E9/L Normal 4.0 - 11.0 E9/L [facility] HemeAutoSS Help Me Grow Referralon Help Me Grow Referral [id number]#1.00CD:127 Normal [facility] Insurance Correspondence Off iceon 08-07-2022 Insurance Correspondence Office [id number]#1.00CD:127 Normal [facility] - Microbiology an d Antimicrobial susceptibilityOrdered By: Maranda Muñoz on 08-07-2022 Bacteria identified Cx Nom (U) 2,000 cfu/ml Mixed skin contaminants [facility] Morphon 08-07-2022 Anisocytosis Ql (Bld) Present Normal [facility] Comment on above: Order Comment: Order Added by Discern Expert. Performed By: #### 2 808380, [id number] #### [facility] [address] [place] [address] Hypochromia Auto Ql (Bld) Present Normal [facility] Comment on above: Order Comment: Order Added by Discern Expert. Performed By: #### 2 340722, [id number] #### [facility] [address] [place] [address] Microcytes Ql (Bld) Present Normal [facility] Comment on above: Order Comment: Order Added by Discern Expert. Performed By: #### 2 227753, 81011089 #### [facility] [address] [place] [address] Morphology Cliff (Bld) [Interp] See Morphology Normal [facility] Comment on above: Order Comment: Order Added by Discern Expert. Performed By: #### 2 553045, [id number] #### [facility] [address] [place] [address] Ovalocytes LM Ql (Bld) Present Normal [facility] Comment on above: Order Comment: Order Added by Discern Expert. Performed By: #### 2 067274, [id number] #### [facility] [address] [place] [address] Platelets Large LM Ql (Bld) Present Normal [facility] Comment on above: Order Comment: Order Added by Discern Expert. Performed By: #### 2 347243, [id number] #### [facility] [address] [facility] [place] [address] Polychromasia LM Ql (Bld) Present Normal [facility] Comment on above: Order Comment: Order Added by Discern Expert. Performed By: #### 2 690701, 09684024 #### [facility] [address] [place] [address] Recordson Records [id number]#1.00CD:127 Normal [facility] Progress Note-Physicianon Progress Note-Physician Patient: JORDIN TYLER Age: 17 years Sex: Female : 2005 Associated Diagnoses: None Author: Ra Casas Jr., DO Postoperative Information Postoperative disposition: Postoperative disposition: Day 2. Optimetrix number: Optimetrix number [id number]. Anesthetic utilized: Regional: Epidural. Physical Examination Hemodynamically stable. Pain Assessment: Controlled. General: Awake, Alert, Appropriate. Respiratory: Adequate air exchange. Cardiovascular: Stable. Neurological: Normal sensory function. Assessment Anesthetic outcome No post-epidural complications noted.. Review / Management Condition: Stable. Plan Transfer/Discharge: Stable for discharge from anesthetic standpoint.. Normal [facility] Comment on above: Result Comment: Elec tronically [...] Stable for discharge from anesthetic standpoint.. Normal [facility] Comment on above: Result Comment: Elec tronically [...] hyperactivity disorder), combined type / SNOMED CT 23576846 / Confirmed Age mother conceived under 17 / Patient Care / Confirmed / SNOMED CT 889039593 / Confirmed Shortness of breath in pediatric patient / SNOMED CT 870881501 / Confirmed Very young maternal age, antepartum / SNOMED CT 088004820 / Confirmed Resolved: Acute gastroenteritis / SNOMED CT 470201662 resolved per patient Resolved: Acute low back pain due to trauma / SNOMED CT 314802577 resolved per patient Resolved: Blurry vision, left eye / SNOMED CT 800259729 resolved per patient Resolved: Chest pain / SNOMED CT 15372627 resolved per patient Resolved: Inspiratory stridor / SNOMED CT 139915993 Resolved: Post-traumatic stress syndrome / SNOMED CT 97329246 resolved per patient. Resolved: / SNOMED CT 770647693 Resolved: Strep pharyngitis / SNOMED CT 11899650 Resolved: Viral gastroenteritis / SNOMED CT 710255406 Resolved: Vomiting / SNOMED CT 5505429050 Canceled: None / SNOMED CT 410103046 Review of Systems Respiratory: Negative. Cardiovascular: Negative. [...] The PCEA was started at 1706. Normal [facility] Comment on above: Result Comment: Elec tronically Signed By: Ra Casas Jr., DO\.br\Date and Time Signed: 08/07/22 17:21 EDT Reference Laboratory Testing Ordered By: Generated DomainUser on 08-07-2022 C. trachomatis rRNA TIM+probe Ql (Unsp spec) Negative Invalid Interpretation Code Negative [facility] SendOutsSS N. gonorrhoeae rRNA TIM+probe Ql (Unsp spec) Negative Invalid Interpretation Code Negative [facility] SendOutsSS Comment on above: Result Comment: Perf ormed at: =G [facility] [address] Anshul Traore [id number] MD Rodriguez Briones UA With Cult Reflexon 2022 Type of Urine collection method Catheter Normal [facility] Comment on above: Order Comment: Urina ry Catheter Insertion triggered Urinalysis With Culture Reflex order by discern. Performed By: #### 1 4597923 #### [facility] [address] [place] [address] Bilirubin Ql (U) Negative Normal Negative [facility] Comment on above: Order Comment: Urina ry Catheter Insertion triggered Urinalysis With Culture Reflex order by discern. Performed By: #### 1 8187057 #### [facility] [address] [place] [address] Clarity (U) CLEAR Normal Clear [facility] Comment on above: Order Comment: Urina ry Catheter Insertion triggered Urinalysis With Culture Reflex order by discern. Performed By: #### 1 8343782 #### [facility] [address] [place] [address] Color (U) YELLOW Normal Yellow [facility] Comment on above: Order Comment: Urina ry Catheter Insertion triggered Urinalysis With Culture Reflex order by discern. Performed By: #### 1 7570312 #### [facility] [address] [place] [address] Epithelial cells.squamous LM.HPF (Urine sed) [#/Area] 0-2 Normal 0-2 [facility] Comment on above: Order Comment: Urina ry Catheter Insertion triggered Urinalysis With Culture Reflex order by discern. Performed By: #### 1 3396638 #### [facility] [address] [place] [address] Glucose Test strip (U) [Mass/Vol] Negative Normal Negative [facility] Comment on above: Order Comment: Urina ry Catheter Insertion triggered Urinalysis With Culture Reflex order by discern. Performed By: #### 1 2758070 #### [facility] [address] [place] [address] Hemoglobin Ql (U) 3+ Abnormal Negative [facility] Comment on above: Order Comment: Urina ry Catheter Insertion triggered Urinalysis With Culture Reflex order by discern. Performed By: #### 1 6210252 #### [facility] [address] [place] [address] Ketones (U) [Mass/Vol] Negative Normal Negative [facility] Comment on above: Order Comment: Urina ry Catheter Insertion triggered Urinalysis With Culture Reflex order by discern. Performed By: #### 1 [id number] #### [facility] [address] [place] [address] [place].plasma/[place].R BC (Bld) [Mass ratio] 4-20 Normal 0-3 [facility] Comment on above: Order Comment: Urina ry Catheter Insertion triggered Urinalysis With Culture Reflex order by discern. Performed By: #### 1 [id number] #### [facility] [address] [place] [address] Nitrite Ql (U) Negative Normal Negative [facility] Comment on above: Order Comment: Urina ry Catheter Insertion triggered Urinalysis With Culture Reflex order by discern. Performed By: #### 1 2228260 #### [facility] [address] [place] [address] pH (U) 8.0 [pH] Invalid Interpretation Code 5.0-9.0 [facility] Comment on above: Order Comment: Urina ry Catheter Insertion triggered Urinalysis With Culture Reflex order by discern. Performed By: #### 1 4864196 #### [facility] [address] [place] [address] Protein (U) [Mass/Vol] Negative Normal Negative [facility] Comment on above: Order Comment: Urina ry Catheter Insertion triggered Urinalysis With Culture Reflex order by discern. Performed By: #### 1 8534074 #### [facility] [address] [place] [address] Specific gravity (U) [Rel density] 1.015 Invalid Interpretation Code 1.005-1.030 [facility] Comment on above: Order Comment: Urina ry Catheter Insertion triggered Urinalysis With Culture Reflex order by discern. Performed By: #### 1 4257110 #### [facility] [address] [place] [address] Urobilinogen Qn (U) 0.2 {Karri'U}/dL Normal 0.0-1.0 [facility] Comment on above: Order Comment: Urina ry Catheter Insertion triggered Urinalysis With Culture Reflex order by discern. Performed By: #### 1 8768187 #### [facility] [address] [place] [address] WBC Auto Ql (U) Negative Normal Negative [facility] Comment on above: Order Comment: Urina ry Catheter Insertion triggered Urinalysis With Culture Reflex order by discern. Performed By: #### 1 2629104 #### [facility] [address] [place] [address] WBC LM.HPF (Urine sed) [#/Area] 0-5 Normal 0-5 [facility] Comment on above: Order Comment: Urina ry Catheter Insertion triggered Urinalysis With Culture Reflex order by discern. Performed By: #### 1 3657178 #### [facility] [address] [place] [address] Bacteria LM Ql (Urine sed) 1+ /HPF Abnormal Trace [facility] Comment on above: Performed By: #### 1 9684552, 0607192 #### [facility] [address] [place] [address] Bilirubin Ql (U) Negative Normal Negative [facility] Comment on above: Performed By: #### 1 6068798, 5241109 #### [facility] [address] [place] [address] Clarity (U) CLEAR Normal Clear [facility] Comment on above: Performed By: #### 1 1778238, 5371472 #### [facility] [address] [place] [address] Color (U) YELLOW Normal Yellow [facility] Comment on above: Performed By: #### 1 5187078, 2165848 #### [facility] [address] [place] [address] Crystals LM Ql (Urine sed) Present Normal [facility] Comment on above: Performed By: #### 1 2157042, 5873939 #### [facility] [address] [place] [address] Epithelial cells.squamous LM.HPF (Urine sed) [#/Area] 9-10 Normal 0-2 [facility] Comment on above: Performed By: #### 1 8973877, 4028382 #### [facility] [address] [place] [address] Glucose Test strip (U) [Mass/Vol] Negative Normal Negative [facility] Comment on above: Performed By: #### 1 2176112, 3549908 #### [facility] [address] [place] [address] Hemoglobin Ql (U) Negative Normal Negative [facility] Comment on above: Performed By: #### 1 1893177, 0363674 #### [facility] [address] [place] [address] Ketones (U) [Mass/Vol] Negative Normal Negative [facility] Comment on above: Performed By: #### 1 0844163, 5232201 #### [facility] [address] [place] [address] [place].plasma/[place].R BC (Bld) [Mass ratio] 0-3 Normal 0-3 [facility] Comment on above: Performed By: #### 1 0963147, 6384179 #### [facility] [address] [place] [address] Mucus Ql (Urine sed) 1+ Normal [facility] Comment on above: Performed By: #### 1 7040682, 9741500 #### [facility] [address] [place] [address] Nitrite Ql (U) Negative Normal Negative [facility] Comment on above: Performed By: #### 1 9024625, 6179117 #### [facility] [address] [place] [address] pH (U) 7.0 [pH] Invalid Interpretation Code 5.0-9.0 [facility] Comment on above: Performed By: #### 1 5284607, 3836546 #### [facility] [address] [place] [address] Protein (U) [Mass/Vol] TRACE Abnormal Negative [facility] Comment on above: Performed By: #### 1 0568214, 3493635 #### [facility] [address] [place] [address] Specific gravity (U) [Rel density] 1.020 Invalid Interpretation Code 1.005-1.030 [facility] Comment on above: Performed By: #### 1 5309626, 7958651 #### [facility] [address] [place] [address] Type of Urine collection method Clean Catch Normal [facility] Comment on above: Performed By: #### 1 3108286, 7473355 #### [facility] [address] [place] [address] Urobilinogen Qn (U) 2.0 {Karri'U}/dL Abnormal 0.0-1.0 [facility] Comment on above: Performed By: #### 1 4412181, 0395522 #### [facility] [address] [place] [address] WBC Auto Ql (U) 1+ Abnormal Negative [facility] Comment on above: Performed By: #### 1 6369888, 1538358 #### [facility] [address] [place] [address] WBC LM.HPF (Urine sed) [#/Area] 6-15 Abnormal 0-5 [facility] Comment on above: Performed By: #### 1 9085028, 3750138 #### [facility] [address] [place] [address] URINALYSISOrdered By: Anne-Marie Leonard on 08-07-2022 Bilirubin [...] PM) Normal Negative [facility] UA Auto SS [place].plasma/[place].R BC (Bld) [Mass ratio] 4-20 /HPF Normal [...] [facility] UA Auto SS Urobilinogen Qn (U) 0.0600553 {Karri'U}/dL Normal 0.0 - 1.0 EU/dL [facility] [...] AM) Normal Negative [facility] UA Auto SS [place].plasma/[place].R BC (Bld) [Mass ratio] 0-3 /HPF Normal [...] [facility] UA Auto SS Urobilinogen Qn (U) 2.4570756 {Karri'U}/dL Invalid Interpretation Code 0.0 - 1.0 EU/dL [facility] UA Auto SS WBC Auto Ql (U) 1+ *ABN* (08/07/22 6:30 AM) Invalid Interpretation Code Negative [facility] UA Auto SS WBC LM.HPF (Urine sed) [#/Area] 6-15 /HPF Invalid Interpretation Code 0-5/HPF [facility] UA Auto SS Consent for Treatmenton 07-08 Consent for Treatment [id number] 355#1.00CD:127 Normal [facility] Consent for Treatment [id number] 44#1.00CD:127 Normal [facility] Discharge Instructionson Discharge Instructions [id number] 9#1.00CD:127 Normal [facility] Inpatient Clinical Summaryon 08-04-2022 Inpatient Clinical Summary [place] [id number] Clinical Summary Person Information Name: JORDIN TYLER Kristan/[facility] Age: 17 Years : 2005 Sex: Female PCP: NONE, XXXX Marital Status: Single Phone: [phone] Race: White Ethnicity: Non- or Language: Afghan Visit Id: Visit Reason: ABD PAIN AND PRESSURE Speciality: Acuity: Enc Type: OB Triage Med Service: Obstetrics Arrival: 08/04/2022 10:49:09 Discharge: 08/04/2022 13:15:00 Dispo Type: Home (Routine DC) Address: [address] [place] [id number] Provider Notes: Diagnosis: Problems Active Very young [...] or vaginal bleeding Patient Education Information: Normal [facility] Inpatient Patient Summaryon 08-04-2022 Inpatient Patient Summary [place] [address] Patient Discharge Instructions PERSON INFORMATION Name: JORDIN [...] Leaflets: You may receive a survey from [employer] asking you to rate your care experience. Your feedback is important and will help us understand what we do well and how we can improve the quality of care we provide to you, your loved ones and our community. It?s an honor to serve you. Thank you for choosing [facility] Insurance Correspondenceon 0 08-04-2022 Insurance Correspondence [id number] Normal [facility] UA With Cult Reflexon 2022 Bacteria LM Ql (Urine sed) TRACE Normal Trace [facility] Comment on above: Performed By: #### 1 [id number] #### [facility] [address] [place] [address] Bilirubin Ql (U) Negative Normal Negative [facility] Comment on above: Performed By: #### 1 [id number] #### [facility] [address] [place] [address] Clarity (U) SL CLOUDY Abnormal Clear [facility] Comment on above: Performed By: #### 1 [id number] #### [facility] [address] [place] [address] Color (U) YELLOW Normal Yellow [facility] Comment on above: Performed By: #### 1 [id number] #### [facility] [address] [place] [address] Epithelial cells.squamous LM.HPF (Urine sed) [#/Area] /[HPF] Normal 0-2 [facility] Comment on above: Performed By: #### 1 [id number] #### [facility] [address] [place] [address] Glucose Test strip (U) [Mass/Vol] Negative Normal Negative [facility] Comment on above: Performed By: #### 1 [id number] #### [facility] [address] [place] [address] Hemoglobin Ql (U) Negative Normal Negative [facility] Comment on above: Performed By: #### 1 [id number] #### [facility] [address] [place] [address] Ketones (U) [Mass/Vol] Negative Normal Negative [facility] Comment on above: Performed By: #### 1 [id number] #### [facility] [address] [place] [address] [place].plasma/[place].R BC (Bld) [Mass ratio] 0-3 Normal 0-3 [facility] Comment on above: Performed By: #### 1 [id number] #### [facility] [address] [place] [address] Nitrite Ql (U) Negative Normal Negative [facility] Comment on above: Performed By: #### 1 [id number] #### [facility] [address] [place] [address] pH (U) 7.5 [pH] Invalid Interpretation Code 5.0-9.0 [facility] Comment on above: Performed By: #### 1 [id number] #### [facility] [address] [place] [address] Protein (U) [Mass/Vol] Negative Normal Negative [facility] Comment on above: Performed By: #### 1 [id number] #### [facility] [address] [place] [address] Specific gravity (U) [Rel density] 1.015 Invalid Interpretation Code 1.005-1.030 [facility] Comment on above: Performed By: #### 1 [id number] #### [facility] [address] [place] [address] Type of Urine collection method Clean Catch Normal [facility] Comment on above: Performed By: #### 1 [id number] #### [facility] [address] [place] [address] Urobilinogen Qn (U) 0.2 {Karri'U}/dL Normal 0.0-1.0 [facility] Comment on above: Performed By: #### 1 [id number] #### [facility] [address] [place] [address] WBC Auto Ql (U) TRACE Abnormal Negative [facility] Comment on above: Performed By: #### 1 [id number] #### [facility] [address] [place] [address] WBC LM.HPF (Urine sed) [#/Area] 0-5 Normal 0-5 [facility] Comment on above: Performed By: #### 1 [id number] #### [facility] [address] [place] [address] URINALYSISOrdered By: Heidi Barnes on 08-04-2022 Bacteria LM Ql (Urine [...] AM) Normal Negative [facility] UA Auto SS [place].plasma/[place].R BC (Bld) [Mass ratio] 0-3 /HPF Normal [...] [facility] UA Auto SS Urobilinogen Qn (U) 0.1078201 {Karri'U}/dL Normal 0.0 - 1.0 EU/dL [facility] UA Auto SS WBC Auto Ql (U) Trace *ABN* (08/04/22 11:11 AM) Invalid Interpretation Code Negative [facility] UA Auto SS WBC LM.HPF (Urine sed) [#/Area] 0-5 /HPF Normal 0-5/HPF [facility] U[facility] Auto SS CHEMISTRYOrdered By: SYSTEM SYSTEM on 01-18-2022 Anion gap [Moles/Vol] 15 mmol/L Normal 6 - 16 mEq/L [facility] Calcium [Mass/Vol] 9.0 mg/dL Normal 8.9 - 11. 1 mg/dL [facility] Chloride [Moles/Vol] 103 mmol/L Normal 101 - 1 11 mmol/L [facility] CO2 [Moles/Vol] 21 mmol/L Normal 21 - 31 mmol/L [facility] Creatinine [Mass/Vol] 0.6 mg/dL Normal 0.5 - 1.3 mg/dL [facility] GFR/1.73 sq M.predicted among blacks MDRD (S/P/Bld) [Vol rate/Area] mL/min/1.73 m2 Normal >=59mL/min/1 .73 m2 [facility] Chem S GFR/1.73 sq M.predicted among non-blacks MDRD (S/P/Bld) [Vol rate/Area] mL/min/1.73 m2 Normal >=59mL/min/1 .73 m2 [facility] Chem S Glucose [Mass/Vol] 94 mg/dL Normal 55 - 199 mg/dL [facility] Potassium [Moles/Vol] 3.7 mmol/L Normal 3.5 - 5.3 mmol/L [facility] Sodium [Moles/Vol] 135 mmol/L Normal 135 - 145 mmol/L [facility] Urea nitrogen [Mass/Vol] 7 mg/dL Normal 5 - 21 mg/d L [facility] Urea nitrogen/Creatinine [Mass ratio] 12 mg/mg Normal 10 - 20 [facility] Remisol CHEMISTRYOrdered By: Austin garcia on 01-18-2022 HCG.beta subunit Qn 512296 m[IU]/mL High 1 - 3 mIU/m L [facility] Chem S MICRO OTHER TESTSOrdered By: Austin Cabrera on 01-18-2022 Rapid COV Int NEG Ctl Pass (01/18/22 1:19 AM) Normal [facility] Man Sero Rapid COV Int POS Ctl Pass (01/18/22 1:19 AM) Normal [facility] Man Sero SARS-CoV+SARS-CoV-2 (COVID-19) Ag IA.rapid Ql [...] Interpretation Code Negative [facility] UA Auto SS [place].plasma/[place].R BC (Bld) [Mass ratio] 0-3 /HPF Normal [...] [facility] UA Auto SS Urobilinogen Qn (U) 0.5069380 {Karri'U}/dL Normal 0.0 - 1.0 EU/dL [facility] [...] (U) [Moles/Vol] Positive (01/05/22 7:59 AM) Normal [facility] URINALYSISOrdered By: Brandie Garcia on [...] Interpretation Code Negative [facility] UA Auto SS [place].plasma/[place].R BC (Bld) [Mass ratio] 0-3 /HPF Normal [...] [facility] UA Auto SS Urobilinogen Qn (U) 1.1681386 {Karri'U}/dL Normal 0.0 - 1.0 EU/dL [facility] [...] Interpretation Code Negative [facility] UA Auto SS [place].plasma/[place].R BC (Bld) [Mass ratio] 0-3 /HPF Normal [...] [facility] UA Auto SS Urobilinogen Qn (U) 0.1590362 {Karri'U}/dL Normal 0.0 - 1.0 EU/dL [facility] UA Auto SS WBC Auto Ql (U) Negative (01/02/22 1:12 PM) Normal Negative [facility] UA Auto SS WBC LM.HPF (Urine sed) [#/Area] 0-5 /HPF Normal 0-5/HPF [facility] UA Auto SS HEMATOLOGYOrdered By: Brandie Garcia on 06-08-2021 Erythrocyte distribution width (RBC) [...] 06-07-2021 ABO/Rh Interp Positive Invalid Interpretation Code [facility] BB Subsection ABSC Gel Interp Negative (06/07/21 7:46 AM) Normal [facility] BB Subsection HEMATOLOGYOrdered By: Brandie Garcia on [...] AM) Normal Negative [facility] UA Auto SS [place].plasma/[place].R BC (Bld) [Mass ratio] 0-3 /HPF Normal [...] AM) Invalid Interpretation Code 1.005 - 1.030 [facility] UA Auto SS UA Spec Desc Mendoza (06/07/21 10:15 AM) Normal [facility] UA Auto SS Urobilinogen Qn (U) 0.6412868 {Karri'U}/dL Normal 0.0 - 1.0 EU/dL [facility] UA Auto SS WBC Auto Ql (U) Negative (06/07/21 10:15 AM) Normal Negative [facility] UA Auto SS WBC LM.HPF (Urine sed) [#/Area] 0-5 /HPF Normal 0-5/HPF [facility] UA Auto SS CHLAMYDIA/GONOCOCCUS TIM (SW AB/URINE/PAPon 11-04-2020 Chlamydia trachomatis, TIM CRAVEN Normal [facility] Comment on above: Result Comment: Test Not Performed. The transport device submitted contained a cleaning swab. On future collections the cleaning swab should be discarded after use; then the specimen should be collected using the smaller collection swab. contacted Dior at your facility on 11-04-2020 Performed at: =G Performed By: #### C T/NGNA #### [facility] [address] [place] [address] Dr. Maynor Bojorquez Neisseria gonorrhoeae, TIM TNP Normal [facility] Comment on above: Result Comment: Test not performed Performed at: =G Performed By: #### C T/NGNA #### [facility] [address] [place] [address] [address] Maynor Bojorquez PDF Normal [facility] Comment on above: Result Comment: Perf ormed at: CB Performed By: #### C T/NGNA #### [facility] [address] [place] [address] [address] Maynor Bojorquez ABO AND RH TYPEon 11-01-2020 ABO and Rh group Nom (Bld) ABO Rh Typing A Rh Positive Normal [facility] Comment on above: Performed By: #### A BORH #### [facility] [address] [address] [address] Maynor Bojorquez CBC AUTO DIFFon 11-01-2020 BASO # 0.0 103/ul Normal 0.0-0.1 [facility] Comment on above: Performed By: #### C BC #### [facility] [address] [place] [address] Dr. Maynor Bojorquez Basophils/100 WBC (Bld) 0.4 % Normal 0.2-2.[address] [facility] Comment on above: Performed By: #### C BC #### [facility] [address] [place] [address] Dr. Maynor Bojorquez EO # 0.1 103/ul Normal 0.0-0.7 [facility] Comment on above: Performed By: #### C BC #### [facility] [address] [place] [address] Dr. Maynor Bojorquez Eosinophils/100 WBC (Bld) 0.8 % Critically low 0.9-7.0 [facility] Comment on above: Performed By: #### C BC #### [facility] [address] [place] [address] Dr. Maynor Bojorquez Erythrocyte distribution width (RBC) [Ratio] 13.0 % Normal 11.0-15.0 [facility] Comment on above: Performed By: #### C BC #### [facility] [address] [place] [address] Dr. Maynor Bojorquez Hematocrit (Bld) [Volume fraction] 37.4 % Normal 36.0-48.0 [facility] Comment on above: Performed By: #### C BC #### [facility] [address] [place] [address] Dr. Maynor Bojorquez Hemoglobin (Bld) [Mass/Vol] 13.0 g/dL Normal 12.0-16.0 [facility] Comment on above: Performed By: #### C BC #### [facility] [address] [place] [address] Dr. Maynor Bojorquez IG # 0.03 10e3/ul Normal 0.00-0.03 [facility] Comment on above: Performed By: #### C BC #### [facility] [address] [place] [address] Dr. Maynor Bojorquez IG % 0.4 % Normal 0.0-0.5 [facility] Comment on above: Performed By: #### C BC #### [facility] [address] [place] [address] Dr. Maynor Bojorquez LYMPH # 1.7 103/ul Normal 1.2-3.8 [facility] Comment on above: Performed By: #### C BC #### [facility] [address] [place] [address] Dr. Maynor Bojorquez Lymphocytes/100 WBC (Bld) 22.7 % Normal 20.5-60.0 [facility] Comment on above: Performed By: #### C BC #### [facility] [address] [place] [address] Dr. Maynor Bojorquez MANUAL DIFF REQ NO Normal [facility] Comment on above: Performed By: #### C BC #### [facility] [address] [place] [address] Dr. Maynor Bojorquez MCH (RBC) [Entitic mass] 29.1 pg Normal 26.7-34.0 [facility] Comment on above: Performed By: #### C BC #### [facility] [address] [place] [address] Dr. Maynor Bojorquez MCHC (RBC) [Mass/Vol] 34.8 g/dL Normal 29.9-35.2 [facility] Comment on above: Performed By: #### C BC #### [facility] [address] [place] [address] Dr. Maynor Bojorquez MCV (RBC) [Entitic vol] 83.9 fL Normal 79.1-95.[address] [facility] Comment on above: Performed By: #### C BC #### [facility] [address] [place] [address] Dr. Maynor Bojorquez MONO # 0.7 103/ul Normal 0.3-0.8 [facility] Comment on above: Performed By: #### C BC #### [facility] [address] [place] [address] Dr. Mayonr Bojorquez Monocytes/100 WBC (Bld) 9.5 % Normal 1.7-12.[address] [facility] Comment on above: Performed By: #### C BC #### [facility] [address] [place] [address] Dr. Maynor Bojorquez NEUT # 5.0 103/ul Normal 1.4-6.5 [facility] Comment on above: Performed By: #### C BC #### [facility] [address] [place] [address] Dr. Maynor Bojorquez Neutrophils/100 WBC (Bld) 66.2 % Normal 43.0-75.0 [facility] Comment on above: Performed By: #### C BC #### [facility] [address] [place] [address] Dr. Maynor Bojorquez Platelet mean volume (Bld) [Entitic vol] 10.0 fL Normal 9.5-13.5 [facility] Comment on above: Performed By: #### C BC #### [facility] [address] [place] [address] Dr. Maynor Bojorquez PLT 252 103/ul Normal 150-450 [facility] Comment on above: Performed By: #### C BC #### [facility] [address] [place] [address] Dr. Maynor Bojorquez RBC 4.46 106/ul Normal 3.40-5.30 [facility] Comment on above: Performed By: #### C BC #### [facility] [address] [place] [address] Dr. Maynor Bojorquez WBC 7.6 103/ul Normal 4.0-11.0 [facility] Comment on above: Performed By: #### C BC #### [facility] [address] [place] [address] Dr. Maynor Bojorquez ER URINE PROFILEon 1 Bilirubin Ql (U) SMALL Abnormal NEGATIVE [facility] Comment on above: Performed By: #### E RUR #### [facility] [address] [place] [address] Dr. Maynor Bojorquez Clarity (U) CLEAR Normal CLEAR [facility] Comment on above: Performed By: #### E RUR #### [facility] [address] [place] [address] Dr. Maynor Bojorquez Color (U) YELLOW Normal YELLOW [facility] Comment on above: Performed By: #### E RUR #### [facility] [address] [place] [address] Dr. Maynor BARNARD A micrscopic examination will be performed if indicated. Normal [facility] Comment on above: Performed By: #### E RUR #### [facility] [address] [place] [address] Dr. Maynor Bojorquez Glucose Ql (U) Negative Normal NEGATIVE [facility] Comment on above: Performed By: #### E RUR #### [facility] [address] [place] [address] Dr. Maynor Bojorquez Hemoglobin Ql (U) Negative Normal NEGATIVE [facility] Comment on above: Performed By: #### E RUR #### [facility] [address] [place] [address] Dr. Maynor Bojorquez Ketones Ql (U) >=80 Abnormal NEGATIVE [facility] Comment on above: Performed By: #### E RUR #### [facility] [address] [place] [address] Dr. Maynor Bojorquez LEUKOCYTES Negative Normal NEGATIVE [facility] Comment on above: Performed By: #### E RUR #### [facility] [address] [place] [address] Dr. Maynor Bojorquez Nitrite Ql (U) Negative Normal NEGATIVE [facility] Comment on above: Performed By: #### E RUR #### [facility] [address] [place] [address] Dr. Maynor Bojorquez pH (U) 6.0 [pH] Normal 5-9 [facility] Comment on above: Performed By: #### E RUR #### [facility] [address] [place] [address] Dr. Maynor Bojorquez SPEC GRAVITY >=1.030 Abnormal 1.005-<=1.02 5 [facility] Comment on above: Performed By: #### E RUR #### [facility] [address] [place] [address] Dr. Maynor Bojorquez UA PROTEIN TRACE Normal NEGATIVE/ TRACE [facility] Comment on above: Performed By: #### E RUR #### [facility] [address] [place] [address] Dr. Maynor Bojorquez UR MICRO IND NOT INDICATED Normal [facility] Comment on above: Performed By: #### E RUR #### [facility] [address] [place] [address] Dr. Maynor Bojorquez Urobilinogen Qn (U) 1.0 {Karri'U}/dL Normal 0.2 - 1. 0 [facility] Comment on above: Performed By: #### E RUR #### [facility] [address] [place] [address] Dr. Maynor Bojorquez PREG QUANT HCGon 11-01-2020 HCG QUANT [id number] mIU/mL Normal [facility] Comment on above: Performed By: #### P REGQNT #### [facility] [address] [place] [address] Dr. Maynor Bojorquez HCG RANGE SEE BELOW Normal [facility] Comment on above: Result Comment: 5-50 0-1 WEEK 40-300 1-2 WEEKS 100-1,000 2-3 WEEKS 500-6,000 3-4 WEEKS 5,000-200,000 1-2 MONTHS 10,000-100,000 2-3 MONTHS 3,000-50,000 2ND TRIMESTER 1,000-50,000 3RD TRIMESTER Performed By: #### P REGQNT #### [facility] [address] [place] [address] Dr. Maynor Bojorquez PROF CHEM 8 (BAS METB)on Anion gap [Moles/Vol] 13.6 mmol/L Normal [facility] Comment on above: Performed By: #### B MP #### [facility] [address] [place] [address] Dr. Maynor Bojorquez Calcium [Mass/Vol] 9.0 mg/dL Normal 8.4-10.2 [facility] Comment on above: Performed By: #### B MP #### [facility] [address] [place] [address] Dr. Maynor Bojorquez Chloride [Moles/Vol] 102 mmol/L Normal 98-107 [facility] Comment on above: Performed By: #### B MP #### [facility] [address] [address] [address] Maynor Bojorquez CO2 [Moles/Vol] 24.3 mmol/L Normal 22.0-30.0 [facility] Comment on above: Performed By: #### B MP #### [facility] [address] [address] [address] Maynor Bojorquez Creatinine [Mass/Vol] 0.63 mg/dL Normal 0.52-1.04 [facility] Comment on above: Performed By: #### B MP #### [facility] [address] [address] [address] Maynor Bojorquez Glucose [Mass/Vol] 73 mg/dL Critically low 74-106 [facility] Comment on above: Performed By: #### B MP #### [facility] [address] [address] [address] Maynor Bojorquez Potassium [Moles/Vol] 3.9 mmol/L Normal 3.4-5.0 [facility] Comment on above: Performed By: #### B MP #### [facility] [address] [address] [address] Maynor Bojorquez Sodium [Moles/Vol] 136 mmol/L Critically low 137-145 [facility] Comment on above: Performed By: #### B MP #### [facility] [address] [address] [address] Maynor Bojorquez Urea nitrogen [Mass/Vol] 8.0 mg/dL Normal 6.4-19.3 [facility] Comment on above: Performed By: #### B MP #### [facility] [address] [address] [address] Maynor Bojorquez Urea nitrogen/Creatinine [Mass ratio] 12.7 mg/mg Normal [facility] Comment on above: Performed By: #### B MP #### [facility] [address] [address] [address] Maynor Bojorquez US PREG TVon 11-01-2020 [...] CY HERNANDEZ Date: 2020-11-01 18:11 Normal [facility] WET PREPon 11-01-2020 CLUE CELLS NONE SEEN Normal NONE SEEN [facility] Comment on above: Performed By: #### W P #### [facility] [address] [address] [address] Maynor Bojorquez FUNGAL ELEMENTS NONE SEEN Normal NONE SEEN [facility] Comment on above: Performed By: #### W P #### [facility] [address] [place], [place] [address] Dr. Maynor Bojorquez RBC -WET PREP RARE Abnormal NONE SEEN [facility] Comment on above: Performed By: #### W P #### [facility] [address] [address] [address] Maynor Bojorquez TRICHOMONAS NONE SEEN Normal NONE SEEN [facility] Comment on above: Performed By: #### W P #### [facility] [address] [address] [address] Maynor Bojorquez WBC- WET PREP MODERATE Abnormal NONE SEEN [facility] Comment on above: Performed By: #### W P #### [facility] [address] [address] [address] Maynor Bojorquez WET PREP BACTERIA FEW Abnormal NONE SEEN [facility] Comment on above: Performed By: #### W P #### [facility] [address] [address] [address] Maynor Bojorquez Vital Signs Date Time Vital Sign Value Performing Clinician Facility 05-09-2024 10:52-0400 Body mass index (BMI) [Ratio] 26.85 kg/m2 [facility] Nurse [facility] 05-09-2024 10:52-0400 Body weight 70.94 kg [facility] Nurse [facility] 05-09-2024 10:52-0400 Diastolic blood pressure 72 mm[Hg] [facility] Nurse [facility] 05-09-2024 10:52-0400 Systolic blood pressure 112 mm[Hg] [facility] Nurse [facility] 04-01-2024 14:35-0500 Body height 162.56 cm John Paul Lovell MD Work Phone: [facility] 04-01-2024 14:35-0500 Body mass index (BMI) [Ratio] 26.3 kg/m2 John Paul Lovell MD Work Phone: [facility] 04-01-2024 14:35-0500 Body temperature 97.9 [degF] John Paul Lovell MD Work Phone: [facility] 04-01-2024 14:35-0500 Body weight 69.51 kg John Paul Lovell MD Work Phone: [facility] 04-01-2024 14:35-0500 Diastolic blood pressure 61 mm[Hg] John Paul Lovell MD Work Phone: [facility] 04-01-2024 14:35-0500 Heart rate 75 /min John Paul Lovell MD Work Phone: [facility] 04-01-2024 14:35-0500 Respiratory rate 18 /min John Paul Lovell MD Work Phone: [facility] 04-01-2024 14:35-0500 SaO2% (BldA) [Mass fraction] 99 % John Paul Lovell MD Work Phone: [facility] 04-01-2024 14:35-0500 Systolic blood pressure 98 mm[Hg] John Paul Lovell MD Work Phone: [facility] 10-16-2023 14:13-0400 Body height 162.6 cm Mak Jordan [employer] Work Phone: [facility] 10-16-2023 14:13-0400 Body mass index (BMI) [Ratio] 28.67 kg/m2 Mak Jordan [employer] Work Phone: [facility] 10-16-2023 14:13-0400 Body temperature 98.2 [degF] Mak Jordan [employer] Work Phone: [facility] 10-16-2023 14:13-0400 Body weight 75.75 kg Mak Jordan [employer] Work Phone: [facility] 10-16-2023 14:13-0400 Diastolic blood pressure 78 mm[Hg] Mak Jordan [employer] Work Phone: [facility] 10-16-2023 14:13-0400 Heart rate 74 /min Mak Jordan [employer] Work Phone: [facility] 10-16-2023 14:13-0400 SaO2% (BldA) [Mass fraction] 98 % Mak Jordan [employer] Work Phone: [facility] 10-16-2023 14:13-0400 Systolic blood pressure 124 mm[Hg] Mak Jordan [employer] Work Phone: [facility] 09-12-2023 17:31-0400 [employer] [facility] [facility] Comment on above: Result Comment: waiting for ride to come 09-12-2023 16:32-0400 [employer] [facility] Comment on above: Result Comment: discharge instructions sheyla newman with verbal understanding. 09-12-2023 15:26-0400 Hourly Rounding [facility] 09-12-2023 08:52-0400 Diastolic blood pressure 51 mm[Hg] [facility] 09-12-2023 08:52-0400 Heart rate 68 /min [facility] 09-12-2023 08:52-0400 Mean blood pressure 67 mm[Hg] [facility] 09-12-2023 08:52-0400 Systolic blood pressure 100 mm[Hg] [facility] 09-12-2023 08:52-0400 Mean blood pressure 67 mm[Hg] [facility] 09-12-2023 08:52-0400 Respiratory rate 18 /min [facility] 09-11-2023 23:45-0400 Diastolic blood pressure 78 mm[Hg] [facility] 09-11-2023 23:45-0400 Heart rate 65 /min [facility] 09-11-2023 23:45-0400 Mean blood pressure 97 mm[Hg] [facility] 09-11-2023 23:45-0400 Systolic blood pressure 136 mm[Hg] [facility] 09-11-2023 23:45-0400 Blood Pressure Location [facility] 09-11-2023 23:45-0400 Mean blood pressure 97 mm[Hg] [facility] 09-11-2023 23:45-0400 Respiratory rate 22 /min [facility] 09-11-2023 21:03-0400 Heart rate 75 /min [facility] 09-11-2023 21:03-0400 SaO2% (BldA) [Mass fraction] 98 % [facility] 09-11-2023 21:02-0400 Diastolic blood pressure 73 mm[Hg] [facility] 09-11-2023 21:02-0400 Mean blood pressure 91 mm[Hg] [facility] 09-11-2023 21:02-0400 Systolic blood pressure 127 mm[Hg] [facility] 09-11-2023 21:00-0400 Body temperature 98.42 [degF] [facility] 09-11-2023 21:00-0400 Respiratory rate 18 /min [facility] 09-11-2023 16:00-0400 Mean blood pressure 80 mm[Hg] [facility] 09-11-2023 06:15-0400 Blood Pressure Location [facility] 09-11-2023 06:00-0400 Body temperature 98.24 [degF] [facility] 09-11-2023 04:45-0400 SaO2% (BldA) [Mass fraction] 97 % [facility] 09-11-2023 03:00-0400 Body temperature 97.88 [degF] [facility] 09-10-2023 21:38-0400 bodymassindex 1.6 kg/m2 [facility] Comment on above: Result Comment: ^~:!ZScore [facility] 09-10-2023 21:38-0400 Height/Length Percentile 60.85 1 [facility] Comment on above: Result Comment: ^~:!Percentile Source -[facility] 09-10-2023 21:38-0400 Height/Length Z-Score 0.28 1 [facility] Comment on above: Result Comment: ^~:!ZScore [facility] 09-10-2023 21:38-0400 Weight Percentile 95.70 % Mag[facility] Comment on above: Result Comment: ^~:!Percentile Source -[facility] 09-10-2023 21:38-0400 Weight Z-Score 1.72 1 [facility] Comment on above: Result Comment: ^~:!ZScore [facility] 08-29-2023 16:25-0400 Hourly Rounding [facility] Comment on above: Result Comment: discharge instructions sheyla chavezblaine, questions answered and papers signed 08-29-2023 15:06-0400 bodymassindex 1.44 kg/m2 [facility] Comment on above: Result Comment: ^~:!ZScore [facility] 08-29-2023 15:06-0400 Height/Length Percentile 60.30 1 Ras [facility] Comment on above: Result Comment: ^~:!Percentile [facility] 08-29-2023 15:06-0400 Height/Length Z-Score 0.26 1 Ras [facility] Comment on above: Result Comment: ^~:!ZScore [facility] 08-29-2023 15:06-0400 Weight Percentile 93.68 % Ras [facility] Comment on above: Result Comment: ^~:!Percentile [facility] 08-29-2023 15:06-0400 Weight Z-Score 1.53 1 Ras [facility] Comment on above: Result Comment: ^~:!ZScore [facility] 08-29-2023 15:00-0400 Diastolic blood pressure 74 mm[Hg] Ras [facility] 08-29-2023 15:00-0400 Heart rate 94 /min [facility] 08-29-2023 15:00-0400 Mean blood pressure 92 mm[Hg] [facility] 08-29-2023 15:00-0400 Respiratory rate 18 /min [facility] 08-29-2023 15:00-0400 Systolic blood pressure 127 mm[Hg] [facility] 07-19-2023 07:30-0400 Hourly Rounding [facility] Comment on above: Result Comment: discharge instructions g paty to pt. pt requests an abdominal binder. 07-19-2023 07:15-0400 Body temperature 98.06 [degF] [facility] 07-19-2023 07:15-0400 Diastolic blood pressure 46 mm[Hg] [facility] 07-19-2023 07:15-0400 Heart rate 77 /min [facility] 07-19-2023 07:15-0400 Hourly Rounding [facility] 07-19-2023 07:15-0400 Mean blood pressure 68 mm[Hg] [facility] 07-19-2023 07:15-0400 Systolic blood pressure 112 mm[Hg] [facility] 07-19-2023 06:44-0400 bodymassindex 1.44 kg/m2 [facility] Comment on above: Result Comment: ^~:!ZScore Source -[facility] 07-19-2023 06:44-0400 Height/Length Percentile 60.93 1 [facility] Comment on above: Result Comment: ^~:!Percentile Source [facility] 07-19-2023 06:44-0400 Height/Length Z-Score 0.28 1 [facility] Comment on above: Result Comment: ^~:!ZScore Source [facility] 07-19-2023 06:44-0400 Weight Percentile 93.73 % [facility] Comment on above: Result Comment: ^~:!Percentile Source -[facility] 07-19-2023 06:44-0400 Weight Z-Score 1.53 1 Mag[facility] Comment on above: Result Comment: ^~:!ZScore Source -[facility] 03-20-2023 08:14-0500 Body mass index (BMI) [Ratio] 27.09 kg/m2 Kourtneyanalisa Lindsayman [employer] Work Phone: [facility] 03-20-2023 08:14-0500 Body weight 71.58 kg Kourtney Pierce [employer] Work Phone: [facility] 03-20-2023 08:14-0500 Diastolic blood pressure 76 mm[Hg] Kourtney Lindsayman [employer] Work Phone: [facility] 03-20-2023 08:14-0500 Systolic blood pressure 124 mm[Hg] Kourtney Lindsayman [employer] Work Phone: [facility] 03-15-2023 06:43-0500 Body height 162.6 cm Kourtney Pierce [employer] Work Phone: [facility] 02-13-2023 17:00-0500 Heart rate 76 /min [facility] 02-13-2023 17:00-0500 Mean blood pressure 82 mm[Hg] [facility] 02-13-2023 17:00-0500 SaO2% (BldA) [Mass fraction] 98 % [facility] 02-13-2023 16:07-0500 Diastolic blood pressure 66 mm[Hg] [facility] 02-13-2023 16:07-0500 Heart rate 71 /min [facility] 02-13-2023 16:07-0500 Mean blood pressure 81 mm[Hg] Steven [facility] 02-13-2023 16:07-0500 Respiratory rate 16 /min Steven [facility] 02-13-2023 16:07-0500 SaO2% (BldA) [Mass fraction] 100 % Steven [facility] 02-13-2023 16:07-0500 Systolic blood pressure 111 mm[Hg] Steven [facility] 02-13-2023 15:21-0500 Diastolic blood pressure 67 mm[Hg] Tseven C[facility] 02-13-2023 15:21-0500 Heart rate 65 /min Steven [facility] 02-13-2023 15:21-0500 Mean blood pressure 83 mm[Hg] Steven [facility] 02-13-2023 15:21-0500 SaO2% (BldA) [Mass fraction] 100 % Steven [facility] 02-13-2023 15:21-0500 Systolic blood pressure 114 mm[Hg] Steven [facility] 02-13-2023 14:18-0500 Body temperature 98.06 [degF] Steven [facility] 02-13-2023 14:18-0500 bodymassindex 0.93 kg/m2 Steven [facility] Comment on above: [facility] 02-13-2023 14:18-0500 Heart rate 70 /min Steven [facility] 02-13-2023 14:18-0500 Height/Length Percentile 60.56 1 Steven [facility] Comment on above: Result Comment: ^~:!Percentile [facility] 02-13-2023 14:18-0500 Height/Length Z-Score 0.27 1 Steven [facility] Comment on above: Result Comment: ^~:!ZScore [facility] 02-13-2023 14:18-0500 Weight Percentile 84.08 % Steven [facility] Comment on above: Result Comment: ^~:!Percentile [facility] 02-13-2023 14:18-0500 Weight Z-Score 1.00 1 Steven [facility] Comment on above: Result Comment: ^~:!ZScore [facility] 01-26-2023 21:13-0500 Diastolic blood pressure 57 mm[Hg] Steven [facility] 01-26-2023 21:13-0500 Heart rate 74 /min Steven [facility] 01-26-2023 21:13-0500 Mean blood pressure 75 mm[Hg] [facility] 01-26-2023 21:13-0500 Respiratory rate 18 /min Steven [facility] 01-26-2023 21:13-0500 SaO2% (BldA) [Mass fraction] 100 % Steven C[facility] 01-26-2023 21:13-0500 Systolic blood pressure 110 mm[Hg] Steven [facility] 01-26-2023 20:37-0500 Diastolic blood pressure 83 mm[Hg] Steven C[facility] 01-26-2023 20:37-0500 Heart rate 83 /min Steven [facility] 01-26-2023 20:37-0500 Mean blood pressure 104 mm[Hg] [facility] 01-26-2023 20:37-0500 Respiratory rate 17 /min Steven [facility] 01-26-2023 20:37-0500 SaO2% (BldA) [Mass fraction] 100 % Steven [facility] 01-26-2023 20:37-0500 Systolic blood pressure 146 mm[Hg] Steven [facility] 01-26-2023 19:10-0500 Body temperature 98.42 [degF] [facility] 01-26-2023 19:10-0500 bodymassindex 1.05 kg/m2 Steven [facility] Comment on above: Result Comment: ^~:!ZScore [facility] 01-26-2023 19:10-0500 Diastolic blood pressure 61 mm[Hg] [facility] 01-26-2023 19:10-0500 Heart rate 71 /min Steven [facility] 01-26-2023 19:10-0500 Height/Length Percentile 71.85 1 Steven [facility] Comment on above: Result Comment: ^~:!Percentile Source -[facility] 01-26-2023 19:10-0500 Height/Length Z-Score 0.58 1 Steven [facility] Comment on above: Result Comment: ^~:!ZScore [facility] 01-26-2023 19:10-0500 Respiratory rate 18 /min Steven C[facility] 01-26-2023 19:10-0500 SaO2% (BldA) [Mass fraction] 99 % Steven C[facility] 01-26-2023 19:10-0500 Systolic blood pressure 120 mm[Hg] Steven C[facility] 01-26-2023 19:10-0500 weight 1.21 1 Steven Celi [facility] Comment on above: Result Comment: ^~:!ZScore Source -[facility] 01-26-2023 19:10-0500 Weight Percentile 88.76 % Steven [facility] Comment on above: Result Comment: ^~:!Percentile Source -[facility] 01-23-2023 17:43-0500 Diastolic blood pressure 80 mm[Hg] Steven C[facility] 01-23-2023 17:43-0500 Heart rate 70 /min Steven Celi [facility] 01-23-2023 17:43-0500 Mean blood pressure 92 mm[Hg] Steven C[facility] 01-23-2023 17:43-0500 Respiratory rate 16 /min Steven Celi [facility] 01-23-2023 17:43-0500 SaO2% (BldA) [Mass fraction] 99 % Steven Celi [facility] 01-23-2023 17:43-0500 Systolic blood pressure 116 mm[Hg] Steven C[facility] 01-23-2023 17:00-0500 Diastolic blood pressure 50 mm[Hg] Steven C[facility] 01-23-2023 17:00-0500 Heart rate 62 /min Steven [facility] 01-23-2023 17:00-0500 Mean blood pressure 65 mm[Hg] Steven [facility] 01-23-2023 17:00-0500 Respiratory rate 18 /min Steven Qu[facility] 01-23-2023 17:00-0500 SaO2% (BldA) [Mass fraction] 100 % Steven Celi [facility] 01-23-2023 17:00-0500 Systolic blood pressure 95 mm[Hg] Steven [facility] 01-23-2023 16:30-0500 Diastolic blood pressure 51 mm[Hg] Steven [facility] 01-23-2023 16:30-0500 Heart rate 53 /min Steven Quiro[facility] 01-23-2023 16:30-0500 Mean blood pressure 66 mm[Hg] Steven Quiro[facility] 01-23-2023 16:30-0500 Respiratory rate 19 /min Steven Quiro[facility] 01-23-2023 16:30-0500 SaO2% (BldA) [Mass fraction] 99 % Steven Celi [facility] 01-23-2023 16:30-0500 Systolic blood pressure 97 mm[Hg] Steven C[facility] 01-23-2023 11:45-0500 Body temperature 97.7 [degF] Steven Celi [facility] 01-23-2023 11:45-0500 bodymassindex 1.35 kg/m2 Steven Celi [facility] Comment on above: Result Comment: ^~:!ZScore [facility] 01-23-2023 11:45-0500 Heart rate 65 /min Steven [facility] 01-23-2023 11:45-0500 Height/Length Percentile 60.60 1 Steven [facility] Comment on above: Result Comment: ^~:!Percentile Source -[facility] 01-23-2023 11:45-0500 Height/Length Z-Score 0.27 1 Steven [facility] Comment on above: Result Comment: ^~:!ZScore [facility] 01-23-2023 11:45-0500 weight 1.42 1 Steven Alator[facility] Comment on above: Result Comment: ^~:!ZScore [facility] 01-23-2023 11:45-0500 Weight Percentile 92.25 % Steven [facility] Comment on above: Result Comment: ^~:!Percentile Source -[facility] 12-07-2022 23:02-0400 Body temperature 98.24 [degF] Kaylinn [facility] 12-07-2022 23:02-0400 bodymassindex 1.61 kg/m2 Kaylinn Dokken [facility] Comment on above: Result Comment: ^~:!ZScore [facility] 12-07-2022 23:02-0400 Diastolic blood pressure 46 mm[Hg] Kaylinn Dokken [facility] 12-07-2022 23:02-0400 Heart rate 78 /min Kaylinn Dokken [facility] 12-07-2022 23:02-0400 Height/Length Percentile 45.75 1 Kaylinn Dokken [facility] Comment on above: Result Comment: ^~:!Percentile Source [facility] 12-07-2022 23:02-0400 Height/Length Z-Score -0.11 1 Damaris Jean Bapt[facility] Comment on above: Result Comment: ^~:!Trace [facility] 12-07-2022 23:02-0400 Respiratory rate 18 /min Damaris [facility] 12-07-2022 23:02-0400 SaO2% (BldA) [Mass fraction] 97 % Damaris [facility] 12-07-2022 23:02-0400 Systolic blood pressure 113 mm[Hg] Damaris [facility] 12-07-2022 23:02-0400 weight 1.61 1 Damaris Jean [facility] Comment on above: Result Comment: ^~:!Trace [facility] 12-07-2022 23:02-0400 Weight Percentile 94.60 % Damaris Jean Bapt[facility] Comment on above: Result Comment: ^~:!Percentile Source [facility] 10-30-2022 10:51-0400 Body temperature 98.24 [degF] Steven [facility] 10-30-2022 10:51-0400 bodymassindex 1.51 Steven Alator[facility] Comment on above: Result Comment: ^~:!Trace [facility] 10-30-2022 10:51-0400 Diastolic blood pressure 72 mm[Hg] Steven [facility] 10-30-2022 10:51-0400 Heart rate 80 /min Steven Alator[facility] 10-30-2022 10:51-0400 Height/Length Percentile 61.36 Steven Alatorre [facility] Comment on above: Result Comment: ^~:!Percentile Source -[facility] 10-30-2022 10:51-0400 Height/Length Z-Score 0.29 Steven Alator[facility] Comment on above: Result Comment: ^~:!ZScore [facility] 10-30-2022 10:51-0400 Respiratory rate 16 /min Steven Alator[facility] 10-30-2022 10:51-0400 SaO2% (BldA) [Mass fraction] 97 % Steven Alator[facility] 10-30-2022 10:51-0400 Systolic blood pressure 110 mm[Hg] Steven Alator[facility] 10-30-2022 10:51-0400 weight 1.60 Steven Alatorre [facility] Comment on above: Result Comment: ^~:!ZScore [facility] 10-30-2022 10:51-0400 Weight Percentile 94.47 % Steven Alator[facility] Comment on above: Result Comment: ^~:!Percentile Source -[facility] 08-10-2022 12:40-0400 Hourly Rounding Jerry STEVE [facility] Comment on above: Result Comment: discharged out to [facility] without incident accompanied per nurse, the baby was carried in the infant carseat 08-10-2022 12:30-0400 Hourly Rounding Jerry [facility]EV[facility] Comment on above: Result Comment: discharge instructions g paty the pt verbalized understanding 08-10-2022 11:42-0400 Hourly Rounding Jerry STEV[facility] Comment on above: Result Comment: sitting in bed. denies n eeds or pain 08-10-2022 07:21-0400 Heart rate 73 /min Jerry [facility] 08-10-2022 07:21-0400 SaO2% (BldA) [Mass fraction] 100 % Jerry [facility] 08-10-2022 07:19-0400 Body temperature 98.06 [degF] Jerry [facility] 08-10-2022 07:19-0400 Diastolic blood pressure 77 mm[Hg] Jerry [facility] 08-10-2022 07:19-0400 Mean blood pressure 86 mm[Hg] Jerry [facility]EV[facility] 08-10-2022 07:19-0400 Systolic blood pressure 104 mm[Hg] Jerry [facility]EV[facility] 08-10-2022 07:18-0400 Respiratory rate 18 /min Jerry [facility] 08-09-2022 20:27-0400 Blood Pressure Location Jerry STEV[facility] 08-09-2022 20:27-0400 Body temperature 97.34 [degF] Jerry [facility]EVE [facility] 08-09-2022 20:27-0400 Diastolic blood pressure 68 mm[Hg] Jerry STEVE [facility] 08-09-2022 20:27-0400 Heart rate 81 /min Jerry [facility]EV[facility] 08-09-2022 20:27-0400 Mean blood pressure 87 mm[Hg] Jerry [facility]EV[facility] 08-09-2022 20:27-0400 Respiratory rate 16 /min Jerry [facility]EV[facility] 08-09-2022 20:27-0400 Systolic blood pressure 126 mm[Hg] Jerry [facility]EV[facility] 08-09-2022 15:24-0400 Heart rate 77 /min Jerry [facility] 08-09-2022 15:24-0400 SaO2% (BldA) [Mass fraction] 98 % Jerry [facility]EV[facility] 08-09-2022 15:24-0400 Body temperature 98.24 [degF] Jerry [facility] 08-09-2022 15:24-0400 Diastolic blood pressure 64 mm[Hg] Jerry [facility]EV[facility] 08-09-2022 15:24-0400 Mean blood pressure 88 mm[Hg] Jerry [facility]EV[facility] 08-09-2022 15:24-0400 Systolic blood pressure 135 mm[Hg] Jerry STEV[facility] 08-09-2022 15:15-0400 Blood Pressure Location Jerry STEVE [facility] 08-09-2022 15:15-0400 Respiratory rate 18 /min Jerry STEV[facility] 08-09-2022 07:28-0400 SaO2% (BldA) [Mass fraction] 100 % Jerry [facility]EV[facility] 08-09-2022 07:27-0400 Mean blood pressure 86 mm[Hg] Jerry [facility] 08-09-2022 07:15-0400 Blood Pressure Location Jerry STVEE [facility] 08-08-2022 19:42-0400 Mean blood pressure 86 mm[Hg] Jerry [facility]EV[facility] 08-08-2022 08:15-0400 Mean blood pressure 85 mm[Hg] Jerry STEVE [facility] 08-07-2022 06:36-0400 bodymassindex 1.68 Jerry STEVE [facility] Comment on above: Result Comment: ^~:![facility] 08-07-2022 06:36-0400 Height/Length Percentile 61.53 Jerry STEVE [facility] Comment on above: Result Comment: ^~:!Percentile Source [facility] 08-07-2022 06:36-0400 Height/Length Z-Score 0.29 Jerry STEVE [facility] Comment on above: Result Comment: ^~:!ZScore [facility] 08-07-2022 06:36-0400 weight 1.76 Jerry STEVE [facility] Comment on above: Result Comment: ^~:!ZScore [facility] 08-07-2022 06:36-0400 Weight Percentile 96.10 % Jerry STEVE [facility] Comment on above: Result Comment: ^~:!Percentile Source [facility] 08-04-2022 13:28-0400 Hourly Rounding Jerry STEVE [facility] 08-04-2022 13:00-0400 Hourly Rounding Jerry STEVE [facility] Comment on above: Result Comment: verbal and written disch arge instructions given to pt and family, encouraged to return for any prob or concerns 08-04-2022 12:00-0400 Hourly Rounding Jerry STEVE [facility] 08-04-2022 11:15-0400 Blood Pressure Location Jerry STEVE [facility] 08-04-2022 11:15-0400 Body temperature 98.06 [degF] Jerry STEVE [facility] 08-04-2022 11:15-0400 bodymassindex 1.67 Jerry STEVE [facility] Comment on above: Result Comment: ^~:![facility] 08-04-2022 11:15-0400 Diastolic blood pressure 58 mm[Hg] Jerry STEVE [facility] 08-04-2022 11:15-0400 Heart rate 115 /min Jerry STEVE [facility] 08-04-2022 11:15-0400 Height/Length Percentile 60.94 Jerry STEVE [facility] Comment on above: Result Comment: ^~:![facility] 08-04-2022 11:15-0400 Height/Length Z-Score 0.28 Jerry STEVE [facility] Comment on above: [facility] 11:15-0400 Mean blood pressure 80 mm[Hg] Jerry STEVE [facility] 08-04-2022 11:15-0400 Respiratory rate 16 /min Jerry STEVE [facility] 08-04-2022 11:15-0400 Systolic blood pressure 124 mm[Hg] Jerry STEVE [facility] 08-04-2022 11:15-0400 weight 1.75 Jerry STEVE [facility] Comment on above: Result Comment: ^~:!ZScore [facility] 08-04-2022 11:15-0400 Weight Percentile 95.98 % Jerry STEVE [facility] Comment on above: Result Comment: ^~:!Percentile Source [facility] 01-18-2022 14:00-0500 Body temperature 98.6 [degF] Ender Garfield [facility] 01-18-2022 14:00-0500 Diastolic blood pressure 60 mm[Hg] Ender Garfield [facility] 01-18-2022 14:00-0500 Heart rate 73 /min Ender Garfield [facility] 01-18-2022 14:00-0500 Mean blood pressure 78 mm[Hg] Ender Garfield [facility] 01-18-2022 14:00-0500 Respiratory rate 17 /min Ender Garfield [facility] 01-18-2022 14:00-0500 SaO2% (BldA) [Mass fraction] 100 % Ender Garfield [facility] 01-18-2022 14:00-0500 Systolic blood pressure 115 mm[Hg] Ender Garfield [facility] 01-18-2022 04:00-0500 Body temperature 98.24 [degF] Ender Garfield [facility] 01-18-2022 04:00-0500 Diastolic blood pressure 65 mm[Hg] Ender Garfield [facility] 01-18-2022 04:00-0500 Heart rate 68 /min Ender Garfield [facility] 01-18-2022 04:00-0500 Mean blood pressure 82 mm[Hg] Ender Merrill [facility] 01-18-2022 04:00-0500 Respiratory rate 18 /min Ender Merrill [facility] 01-18-2022 04:00-0500 SaO2% (BldA) [Mass fraction] 98 % Ender Merrill [facility] 01-18-2022 03:00-0500 Diastolic blood pressure 77 mm[Hg] Ender Merrill [facility] 01-18-2022 03:00-0500 Heart rate 63 /min Ender Merrill [facility] 01-18-2022 03:00-0500 Mean blood pressure 91 mm[Hg] Ender Merrill [facility] 01-18-2022 03:00-0500 SaO2% (BldA) [Mass fraction] 97 % Ender Merrill [facility] 01-18-2022 03:00-0500 Systolic blood pressure 120 mm[Hg] Ender Merrill [facility] 01-18-2022 01:11-0500 bodymassindex 1.29 Ender Merrill [facility] Comment on above: Result Comment: ^~:!ZScore Source -[facility] 01-18-2022 01:11-0500 Heart rate 76 /min Ender Merrill [facility] 01-18-2022 01:11-0500 Height/Length Percentile 61.95 Ender Merrill [facility] Comment on above: Result Comment: ^~:!Percentile Source -[facility] 01-18-2022 01:11-0500 Height/Length Z-Score 0.30 Ender Merrill [facility] Comment on above: Result Comment: ^~:![facility] 01-18-2022 01:11-0500 weight 1.36 Ender Merrill [facility] Comment on above: Result Comment: [facility] 01-18-2022 01:11-0500 Weight Percentile 91.35 % Ender Merrill [facility] Comment on above: Result Comment: ^~:!Percentile [facility] 01-05-2022 11:30-0500 Diastolic blood pressure 72 mm[Hg] Ender Merrill [facility] 01-05-2022 11:30-0500 Heart rate 67 /min Ender Merrill [facility] 01-05-2022 11:30-0500 Mean blood pressure 82 mm[Hg] Ender Merrill [facility] 01-05-2022 11:30-0500 Respiratory rate 18 /min Endersheng Merrill [facility] 01-05-2022 11:30-0500 SaO2% (BldA) [Mass fraction] 100 % Endersheng Merrill [facility] 01-05-2022 11:30-0500 Systolic blood pressure 103 mm[Hg] Ender Garfield [facility] 01-05-2022 11:00-0500 Diastolic blood pressure 44 mm[Hg] Ender Merrill [facility] 01-05-2022 11:00-0500 Heart rate 65 /min Ender Garfield [facility] 01-05-2022 11:00-0500 Systolic blood pressure 94 mm[Hg] Ender Merrill [facility] 01-05-2022 10:46-0500 SaO2% (BldA) [Mass fraction] 99 % Ender Garfield [facility] 01-05-2022 10:30-0500 Diastolic blood pressure 53 mm[Hg] Ender Garfield [facility] 01-05-2022 10:30-0500 Heart rate 66 /min Ender Garfield [facility] 01-05-2022 10:30-0500 Respiratory rate 18 /min Ender Garfield [facility] 01-05-2022 10:30-0500 Systolic blood pressure 100 mm[Hg] Ender Garfield [facility] 01-05-2022 10:17-0500 Hourly Rounding Ender Garfield [facility] 01-05-2022 10:17-0500 Promise to Return Ender Garfield [facility] 01-05-2022 10:16-0500 Blood Pressure Location Ender Garfield [facility] 01-05-2022 10:16-0500 Mean blood pressure 68 mm[Hg] Ender Garfield [facility] 01-05-2022 09:19-0500 Blood Pressure Location Ender Garfield [facility] 01-05-2022 09:19-0500 Mean blood pressure 71 mm[Hg] Ender Garfield [facility] 01-05-2022 09:10-0500 Hourly Rounding Ender Garfield [facility] 01-05-2022 09:10-0500 Promise to Return Ender Garfield [facility] 01-05-2022 08:40-0500 Hourly Rounding Ender Garfield [facility] 01-05-2022 08:40-0500 Promise to Return Ender Merrill [facility] 01-05-2022 08:13-0500 Blood Pressure Location Ender Merrill [facility] 01-05-2022 07:52-0500 Body temperature 97.88 [degF] Ender Merrill [facility] 01-05-2022 07:52-0500 bodymassindex 1.28 Ender Merrill [facility] Comment on above: Result Comment: ^~:![facility] 01-05-2022 07:52-0500 Heart rate 73 /min Ender Merrill [facility] 01-05-2022 07:52-0500 Height/Length Percentile 61.44 % Ender Merrill [facility] Comment on above: Result Comment: ^~:!Percentile Source -[facility] 01-05-2022 07:52-0500 Height/Length Z-Score 0.29 Ender Merrill [facility] Comment on above: Result Comment: ^~:![facility] 01-05-2022 07:52-0500 weight 1.35 Ender Merrill [facility] Comment on above: Result Comment: ^~:![facility] 01-05-2022 07:52-0500 Weight Percentile 91.20 % Ender Merrill [facility] Comment on above: Result Comment: ^~:!Percentile Source -[facility] 01-02-2022 14:15-0500 Diastolic blood pressure 50 mm[Hg] Steven Alatorre [facility] 01-02-2022 14:15-0500 Heart rate 65 /min Steven Celi [facility] 01-02-2022 14:15-0500 Mean blood pressure 66 mm[Hg] Steven Celi [facility] 01-02-2022 14:15-0500 Respiratory rate 16 /min Steven Quiroze [facility] 01-02-2022 14:15-0500 SaO2% (BldA) [Mass fraction] 100 % Steven Celi [facility] 01-02-2022 14:15-0500 Systolic blood pressure 99 mm[Hg] Steven Celi [facility] 01-02-2022 12:39-0500 Body temperature 97.88 [degF] Steven Quiroze [facility] 01-02-2022 12:39-0500 Diastolic blood pressure 75 mm[Hg] Steven Celi [facility] 01-02-2022 12:39-0500 Heart rate 61 /min Steven Celi [facility] 01-02-2022 12:39-0500 Respiratory rate 16 /min Steven Quiroze [facility] 01-02-2022 12:39-0500 SaO2% (BldA) [Mass fraction] 99 % Steven Celi [facility] 01-02-2022 12:39-0500 Systolic blood pressure 147 mm[Hg] Steven Celi [facility] 01-02-2022 12:39-0500 weight 1.41 Steven Celi [facility] Comment on above: Result Comment: ^~:!ZScore [facility] 01-02-2022 12:39-0500 Weight Percentile 92.03 % Steven Quiroze [facility] Comment on above: Result Comment: ^~:!Percentile Source -[facility] 10-16-2021 21:35-0400 Nursing Progress Note Reason Other: discharge instructions given. pt verbalized understanding. [facility] 10-16-2021 20:12-0400 Body temperature 98.42 [degF] [facility] 10-16-2021 20:12-0400 Diastolic blood pressure 77 mm[Hg] [facility] 10-16-2021 20:12-0400 Heart rate 69 /min [facility] 10-16-2021 20:12-0400 Respiratory rate 18 /min [facility] 10-16-2021 20:12-0400 SaO2% (BldA) [Mass fraction] 98 % [facility] 10-16-2021 20:12-0400 Systolic blood pressure 113 mm[Hg] [facility] 09-14-2021 08:08-0400 Body temperature 98.42 [degF] Ender Merrill [facility] 09-14-2021 08:08-0400 Diastolic blood pressure 82 mm[Hg] Ender Merrill [facility] 09-14-2021 08:08-0400 Heart rate 71 /min Ender Merrill [facility] 09-14-2021 08:08-0400 Respiratory rate 18 /min Ender Merrill [facility] 09-14-2021 08:08-0400 SaO2% (BldA) [Mass fraction] 100 % Ender Merrill [facility] 09-14-2021 08:08-0400 Systolic blood pressure 127 mm[Hg] Ender Merrill [facility] 05-05-2022 18:18-0400 Hourly Rounding Ras Miller [facility] Comment on above: Result Comment: Pt up in room getting re warren for discharge; no other needs noted. 06-09-2021 17:04-0400 Hourly Rounding Ras Miller [facility] Comment on above: Result Comment: Pt visiting with friend; no other needs noted. 06-09-2021 16:20-0400 Blood Pressure Location Ras Miller [facility] 06-09-2021 16:20-0400 Body temperature 97.52 [degF] Ras Miller [facility] 06-09-2021 16:20-0400 Diastolic blood pressure 68 mm[Hg] Ras Miller [facility] 06-09-2021 16:20-0400 Heart rate 82 /min Ras Miller [facility] 06-09-2021 16:20-0400 Hourly Rounding Ras Miller [facility] Comment on above: Result Comment: Mom holding infant; no n eeds noted. 06-09-2021 16:20-0400 Mean blood pressure 89 mm[Hg] Ras Miller [facility] 06-09-2021 16:20-0400 Respiratory rate 18 /min Ras Miller [facility] 06-09-2021 16:20-0400 Systolic blood pressure 132 mm[Hg] Ras Miller [facility] 06-09-2021 07:15-0400 Blood Pressure Location Ras Miller [facility] 06-09-2021 07:15-0400 Body temperature 98.78 [degF] Ras Miller [facility] 06-09-2021 07:15-0400 Diastolic blood pressure 65 mm[Hg] Ras Miller [facility] 06-09-2021 07:15-0400 Heart rate 84 /min Ras Miller [facility] 06-09-2021 07:15-0400 Mean blood pressure 84 mm[Hg] Ras Miller [facility] 06-09-2021 07:15-0400 Respiratory rate 20 /min Ras Miller [facility] 06-09-2021 07:15-0400 Systolic blood pressure 123 mm[Hg] Ras Miller [facility] 06-08-2021 20:35-0400 Body temperature 97.88 [degF] Ras Miller [facility] 06-08-2021 20:35-0400 Diastolic blood pressure 75 mm[Hg] Ras Miller [facility] 06-08-2021 20:35-0400 Heart rate 77 /min Ras Miller [facility] 06-08-2021 20:35-0400 Mean blood pressure 90 mm[Hg] Ras Miller [facility] 06-08-2021 20:35-0400 SaO2% (BldA) [Mass fraction] 97 % Ras Miller [facility] 06-08-2021 20:35-0400 Systolic blood pressure 121 mm[Hg] Ras Miller [facility] 06-08-2021 20:30-0400 Blood Pressure Location Ras Miller [facility] 06-08-2021 20:30-0400 Respiratory rate 18 /min Ras Miller [facility] 06-08-2021 18:30-0400 Promise to Return Ras Miller [facility] 06-08-2021 17:10-0400 Promise to Return Ras Miller [facility] 06-08-2021 16:45-0400 Promise to Return Ras Miller [facility] 06-08-2021 08:00-0400 Mean blood pressure 84 mm[Hg] Ras Miller [facility] 06-07-2021 23:30-0400 SaO2% (BldA) [Mass fraction] 99 % Ras Miller [facility] 06-07-2021 07:22-0400 Heart rate 72 /min Ras Miller [facility] Encounters Encounter Date Encounter Type Care Provider Facility Start: 05-09-2024 End: 05-09-2024 Office outpatient visit 5 minutes [facility] Steve Nurse [facility] Comment on above: GA: 17w5d Start: 05-09-2024 End: 05-09-2024 ambulatory EDUARDO BUTLER Not Available Start: 04-01-2024 End: 04-01-2024 ambulatory John Paul Lovell MD Work Phone: [facility] Work Phone: Start: 04-01-2024 End: 04-01-2024 Patient encounter procedure John Paul Lovell MD Work Phone: [facility] Work Phone: Start: 01-09-2024 End: 01-09-2024 Lab Drop off Ras Miller [facility] Start: 01-02-2024 ambulatory Wil Brooks acility:[facility] Start: 01-02-2024 Registered Recurring John Paul Lovell MD Work Phone: [facility] Start: 10-17-2023 End: 10-17-2023 Telephone encounter Mak Jordan [employer] Work Phone: [facility] Start: 10-16-2023 End: 10-16-2023 Bamboo flowsheet Mak Jordan [employer] Work Phone: [facility] Start: 10-16-2023 End: 10-16-2023 Bamboo flowsheet Mak Jordan [employer] Work Phone: [facility] Start: 10-16-2023 End: 10-16-2023 Initial preventive medicine new pt age 18-39yrs Mak Jordan [employer] Work Phone: [facility] Comment on above: Encounter for medica l examination to establish care (Primary Dx); Bipolar depression (CMS/HCC); Anxiety; Attention deficit hyperactivity disorder (ADHD), combined type (CMS/HCC); PTSD (post-traumatic stress disorder) (CMS/HCC); History of anemia; Screening for heart disease; Wheezing; COVID-19; Skin lesion of left arm Start: 10-16-2023 End: 10-16-2023 Patient encounter status Mak Jordan [employer] Work Phone: [facility] Start: 10-16-2023 End: 10-16-2023 ambulatory MAK JORDAN Not Available Start: 09-10-2023 End: 09-12-2023 Evaluation and management of inpatient Magalis Snow [facility] Start: 09-05-2023 End: 09-05-2023 ambulatory Magalis Snow Facility[facility] Start: 09-05-2023 End: 09-05-2023 Lab Drop off Magalis Snow [facility] Start: 09-05-2023 End: 09-05-2023 ambulatory MAGALIS SNOW Not Available Start: 08-30-2023 End: 10-07-2023 Pre-admission assessment Magalis Snow [facility] Start: 08-29-2023 End: 08-29-2023 OB Triage Ras Miller [facility] Start: 07-20-2023 End: 08-21-2023 Pre-admission assessment Magalis Snow [facility] Start: 07-19-2023 End: 07-19-2023 ambulatory DO Magalis Snow Facility:[facility] Start: 07-19-2023 End: 07-19-2023 OB Triage Magalis Snow [facility] Start: 07-09-2023 End: 07-09-2023 ambulatory DO Magalis Snow Facility:[facility] Start: 07-09-2023 End: 07-09-2023 Patient encounter procedure Kourtney PIERCE [facility] Start: 07-09-2023 End: 07-09-2023 ambulatory MAGALIS TAYLORRA Not Available Start: 06-18-2023 End: 06-18-2023 ambulatory MAGALIS Andrea HEATHAPRAWIRA Not Available Start: 05-21-2023 End: 05-21-2023 ambulatory MAGALIS Andrea NATAPRAWIRA Not Available Start: 03-20-2023 Bamboo flowsheet Kourtney kolb [employer] Work Phone: [facility] Start: 03-20-2023 Bamboo flowsheet Kourtney kolb [employer] Work Phone: [facility] Start: 03-20-2023 End: 03-20-2023 Office outpatient visit 25 minutes Kourtney Pierce [employer] Work Phone: [facility] Comment on above: GA: 12w6d Start: 03-19-2023 Chart abstracting Kourtney Pierce [employer] Work Phone: [facility] Start: 03-15-2023 End: 03-15-2023 flow sheet Kourtney Pierce [employer] Work Phone: [facility] Comment on above: GA: 12w1d Start: 02-13-2023 End: 02-13-2023 Emergency department patient visit Steven Alatorre [facility] Start: 01-26-2023 End: 01-26-2023 Emergency department patient visit Steven Alatorre [facility] Start: 01-23-2023 End: 01-23-2023 Emergency department patient visit Steven Alatorre [facility] Start: 01-01-2023 End: 01-01-2023 ambulatory Alon Johnson Facility:[facility] Start: 01-01-2023 End: 01-01-2023 Lab Drop off Alon Johnson [facility] Start: 01-01-2023 End: 01-01-2023 ambulatory Alon Johnson Facility: [facility] Start: 12-07-2022 End: 12-08-2022 Emergency department patient visit Damaris Jean Baptiste [facility] Start: 10-30-2022 End: 10-30-2022 Emergency department patient visit Steven Alatorre [facility] Start: 08-07-2022 End: 08-10-2022 Evaluation and management of inpatient Ras Miller Facility:[facility] Start: 08-07-2022 End: 08-10-2022 Evaluation and management of inpatient Jerry R STEVE [facility] Start: 08-05-2022 End: 09-05-2022 Pre-admission assessment Jerry R STEVE [facility] Start: 08-04-2022 End: 08-04-2022 ambulatory Jerry R STEVE Facility:[facility] Start: 08-04-2022 End: 08-04-2022 OB Triage Jerry R STEVE [facility] Start: 01-18-2022 End: 01-18-2022 Emergency department patient visit Ender Merrill [facility] Start: 01-05-2022 End: 01-05-2022 Emergency department patient visit Ender Merrill [facility] Start: 01-02-2022 End: 01-02-2022 Emergency department patient visit Steven Alatorre [facility] Start: 10-16-2021 End: 10-16-2021 Emergency department patient visit Ana Lloyd [facility] Start: 09-14-2021 End: 09-14-2021 Emergency department patient visit Ender Merrill [facility] Start: 06-07-2021 End: 06-09-2021 Evaluation and management of inpatient Ras Malina BahenaPaul [facility] Start: 06-02-2021 End: 07-06-2021 Pre-admission assessment Ras Miller [facility] Start: 05-23-2021 End: 05-23-2021 Lab Drop off Ras Miller [facility] Start: 11-01-2020 End: 11-01-2020 ambulatory [facility] Facility:[facility] Procedures Date Procedure Procedure Detail Performing Clinician Start: 05-09-2024 End: 05-09-2024 Urnls dip stick/tablet rgnt non-auto w/o micrscp Jerry Wilson DO Work Phone: Start: 03-20-2023 Urnls dip stick/tabl et rgnt non-auto w/o micrscp Kourtney Pierce NP Work Phone: None (qualifier value) Ras Miller Plan of Treatment Date Care Activity Detail Author Start: 10-06-2024 Influenza vaccination Influenz a Vaccine (Season Ended) [facility] Start: 05-26-2024 End: 05-26-2024 Patient encounter procedure 05/26/2024 9:20 AM EDT Routine [facility] [address] [place] [id number] Jerry Wilson, DO [address] [place] [address] [facility] Start: 05-09-2024 End: 05-09-2025 ABO/Rh ABO/Rh Lab Routine Missed menses , unspecified gestational age Expected: 05/09/2024 (Approximate), Expires: 05/09/2025 [facility] Comment on above: Expected: 05/09/2024 (Approximate), Expires: 05/09/2025 Start: 05-09-2024 End: 06-08-2024 Alpha fetoprotein, maternal Alpha fetoprotein, maternal Lab Routine Missed menses , unspecified gestational age Encounter for supervision of normal first in first trimester Expected: 05/09/2024 (Approximate), Expires: 06/08/2024 [facility] Comment on above: Expected: 05/09/2024 (Approximate), Expires: 06/08/2024 Start: 05-09-2024 End: 05-09-2025 Blood type and Indirect antibody screen panel - Blood Type and screen Lab Routine Missed menses , unspecified gestational age Expected: 05/09/2024 (Approximate), Expires: 05/09/2025 [facility] Work Phone: Comment on above: Expected: 05/09/2024 (Approximate), Expires: 05/09/2025 Start: 05-09-2024 End: 05-09-2025 Drugs of abuse panel - Urine by Screen method Rapid drug screen, urine Lab Routine , unspecified gestational age Encounter for supervision of normal first in first trimester Expected: 05/09/2024 (Approximate), Expires: 05/09/2025 [facility] Comment on above: Expected: 05/09/2024 (Approximate), Expires: 05/09/2025 Start: 10-31-2023 End: 10-16-2024 CBC W Auto Differential panel - Blood CBC and differential Lab Routine Anemia, unspecified type Expected: 10/31/2023 (Approximate), Expires: 10/16/2024 [facility] Comment on above: Expected: 10/31/2023 (Approximate), Expires: 10/16/2024 Start: 10-31-2023 End: 10-16-2024 Ferritin [Mass/volume] in Serum or Plasma Ferritin Lab Routine Anemia, unspecified type Expected: 10/31/2023 (Approximate), Expires: 10/16/2024 [facility] Comment on above: Expected: 10/31/2023 (Approximate), Expires: 10/16/2024 Start: 10-31-2023 End: 10-16-2024 Iron and Iron binding capacity panel - Serum or Plasma Iron and TIBC Lab Routine Anemia, unspecified type Expected: 10/31/2023 (Approximate), Expires: 10/16/2024 [facility] Comment on above: Expected: 10/31/2023 (Approximate), Expires: 10/16/2024 Start: 10-31-2023 End: 10-16-2024 VITAMIN B12/FOLATE, SERUM PANEL VITAMIN B12/FOLATE, SERUM PANEL Lab Routine Anemia, unspecified type Expected: 10/31/2023 (Approximate), Expires: 10/16/2024 [facility] Work Phone: Comment on above: Expected: 10/31/2023 (Approximate), Expires: 10/16/2024 Start: 10-24-2023 End: 10-24-2023 ambulatory 10/24/2023 3:30 PM EDT Visit [facility] [address] [address] [id number] Magalis Snow, DO [address] [phone] [facility] Start: 10-22-2023 End: 10-22-2023 Patient encounter procedure 10/22/2023 2:55 PM EDT Office Visit [facility] [address] [place] [phone] Kellee Glynn, [employer] TECHNICIAN[employer]W TENDER [address] [place] [address] [facility] Start: 10-16-2023 End: 10-15-2024 CBC W Auto Differential panel - Blood CBC and differential Lab Routine History of anemia Screening for heart disease Encounter for medical examination to establish care Expected: 10/16/2023 (Approximate), Expires: 10/15/2024 [facility] Comment on above: Expected: 10/16/2023 [...] Visit [facility] [address] [place] [id number] Mak Jordan [employer] [address] [place] [address] Arrived [facility] Comment on above: Arrived Start: 10-07-2023 Influenza vaccination Influenza Vacc ine (#1) [facility] Start: 04-13-2023 End: 03-15-2024 ABO/Rh ABO/Rh Lab Routine Supervision of normal intrauterine in multigravida, first trimester Expected: 04/13/2023 (Approximate), Expires: 03/15/2024 [facility] Work Phone: Comment on above: Expected: 04/13/2023 (Approximate), Expires: 03/15/2024 Start: 04-13-2023 End: 03-15-2024 Antibody screen Antibody screen Lab Routine Supervision of normal intrauterine in multigravida, first trimester Expected: 04/13/2023 (Approximate), Expires: 03/15/2024 [facility] Comment on above: Expected: 04/13/2023 (Approximate), Expires: 03/15/2024 Start: 04-13-2023 End: 03-15-2024 Bacteria identified in Urine by Culture Urine culture Microbiology Routine Supervision of normal intrauterine in multigravida, first trimester Expected: 04/13/2023 (Approximate), Expires: 03/15/2024 [facility] Comment on above: Expected: 04/13/2023 (Approximate), Expires: 03/15/2024 Start: 04-13-2023 End: 03-15-2024 CBC W Auto Differential panel - Blood CBC and differential Lab Routine Supervision of normal intrauterine in multigravida, first trimester Expected: 04/13/2023 (Approximate), Expires: 03/15/2024 [facility] Comment on above: Expected: 04/13/2023 (Approximate), Expires: 03/15/2024 Start: 04-13-2023 End: 03-15-2024 Drugs of abuse panel - Urine by Screen method Rapid drug screen, urine Lab Routine Supervision of normal intrauterine in multigravida, first trimester Expected: 04/13/2023 (Approximate), Expires: 03/15/2024 [facility] Comment on above: Expected: 04/13/2023 (Approximate), Expires: 03/15/2024 Start: 04-13-2023 End: 03-15-2024 Hepatitis B virus surface Ag [Presence] in Serum or Plasma by Immunoassay Hepatitis B surface Ag Lab Routine Supervision of normal intrauterine in multigravida, first trimester Expected: 04/13/2023 (Approximate), Expires: 03/15/2024 [facility] Comment on above: Expected: 04/13/2023 (Approximate), Expires: 03/15/2024 Start: 04-13-2023 End: 03-15-2024 HIV-1/HIV-2 antigen/antibody combination immunoassay HIV-1 and HIV-2 antibodies Lab Routine Supervision of normal intrauterine in multigravida, first trimester Expected: 04/13/2023 (Approximate), Expires: 03/15/2024 [facility] Comment on above: Expected: 04/13/2023 (Approximate), Expires: 03/15/2024 Start: 04-13-2023 End: 03-15-2024 Reagin Ab [Presence] in Serum by RPR RPR Lab Routine Supervision of normal intrauterine in multigravida, first trimester Expected: 04/13/2023 (Approximate), Expires: 03/15/2024 [facility] Comment on above: Expected: 04/13/2023 (Approximate), Expires: 03/15/2024 Start: 03-20-2023 End: 03-20-2023 ambulatory [facility] Comment on above: Arrived Bacteria identified in Urine by Culture Urine culture Microbiology Routine Missed menses Ordered: 05/09/2024 [facility] Comment on above: Ordered: 05/09/2024 CBC W Auto Different ial panel - Blood CBC and differential Lab Routine Missed menses , unspecified gestational age Ordered: 05/09/2024 [facility] Comment on above: Ordered: 05/09/2024 Hemoglobin A1c/Hemoglobin.total in Blood Hemoglobin A1c Lab Routine Missed menses , unspecified gestational age Ordered: 05/09/2024 [facility] Comment on above: Ordered: 05/09/2024 Hepatitis B virus surface Ag [Presence] in Serum or Plasma by Immunoassay Hepatitis B surface antigen Lab Routine Missed menses , unspecified gestational age Ordered: 05/09/2024 [facility] Comment on above: Ordered: 05/09/2024 Hepatitis C virus Ab [Presence] in Serum or Plasma by Immunoassay Hepatitis C antibody Lab Routine Missed menses , unspecified gestational age Ordered: 05/09/2024 [facility] Comment on above: Ordered: 05/09/2024 HIV-1/HIV-2 antigen/antibody combination immunoassay HIV-1 and HIV-2 antibodies Lab Routine Missed menses , unspecified gestational age Ordered: 05/09/2024 [facility] Comment on above: Ordered: 05/09/2024 Reagin Ab [Presence] in Serum by RPR RPR Lab Routine Missed menses , unspecified gestational age Ordered: 05/09/2024 [facility] Comment on above: Ordered: 05/09/2024 Rubella antibody, IgG Rubella an tibody, IgG Lab Routine Missed menses , unspecified gestational age Ordered: 05/09/2024 [facility] Comment on above: Ordered: 05/09/2024 SURESWAB(R), CT/NG T VAGINALIS SURESWAB(R), CT/NG T VAGINALIS Pathology and Cytology Routine care, subsequent , first trimester Ordered: 03/20/2023 [facility] Work Phone: Comment on above: Ordered: 03/20/2023 Immunizations Immunization Date Immunization Notes Care Provider [place] 08-09-2022 tetanus toxoid, reduced diphtheria toxoid, and acellular pertussis vaccine, adsorbed Jerry STEVE [facility] Comment on above: Reason for Medicatio n: Other (see comment) 06-08-2021 tetanus toxoid, reduced diphtheria toxoid, and acellular pertussis vaccine, adsorbed; Translations: [Boostrix (Tdap)] Ras Miller [facility] Comment on above: Reason for Medicatio n: Other (see comment) 10-28-2020 SARS-CoV-2 (COVID-19 ) mRNA BNT-162b2 [employer] Alon Johnson [facility] Comment on above: Result Comment: 2022: TPVAL 10-07-2020 SARS-CoV-2 (COVID-19 ) mRNA BNT-162b2 vax Alon Johnson [facility] Comment on above: Result Comment: 2022: TPVAL 09-21-2016 hepatitis A vaccine, adult dosage Ras Miller [facility] 09-21-2016 HPV, unspecified formulation Ras Miller [facility] 09-21-2016 meningococcal ACWY vaccine, unspecified formulation Ras Paul [facility] 09-21-2016 tetanus toxoid, reduced diphtheria toxoid, and acellular pertussis vaccine, adsorbed Ras Miller [facility] 06-26-2008 diphtheria, tetanus toxoids and acellular pertussis vaccine Ras Miller [facility] 06-26-2008 measles, mumps and rubella virus vaccine Ras Miller [facility] 06-26-2008 poliovirus vaccine, unspecified formulation Ras Miller [facility] 06-26-2008 varicella virus vaccine Ras Miller [facility] 10-02-2005 diphtheria, tetanus toxoids and acellular pertussis vaccine Ras Miller [facility] 10-02-2005 haemophilus influenz ae type b vaccine, HbOC conjugate Ras Miller [facility] 10-02-2005 hepatitis B vaccine, adult dosage Ras Miller [facility] 10-02-2005 measles, mumps and rubella virus vaccine Ras Miller [facility] 10-02-2005 poliovirus vaccine, unspecified formulation aRs Miller [facility] 10-02-2005 varicella virus vaccine Ras Miller [facility] 2004 diphtheria, tetanus toxoids and acellular pertussis vaccine Ras Miller [facility] 2004 haemophilus influenz ae type b vaccine, HbOC conjugate Ras Miller [facility] 2004 hepatitis B vaccine, adult dosage Ras Miller [facility] 2004 pneumococcal conjuga te vaccine, 13 valent Ras Miller [facility] 2004 poliovirus vaccine, unspecified formulation Ras Miller [facility] 2004 diphtheria, tetanus toxoids and acellular pertussis vaccine Ras Miller [facility] 2004 haemophilus influenz ae type b vaccine, HbOC conjugate Ras Miller [facility] 2004 hepatitis B vaccine, adult dosage Ras Miller [facility] 2004 pneumococcal conjuga te vaccine, 13 valent Ras Miller [facility] 2004 poliovirus vaccine, unspecified formulation Ras Paul [facility] NEGATED: Highlighted row has not occurred!01-01-2023 influenza virus vaccine, unspecified formulation Alon Johnson [facility] Payers Date Payer Category Payer Self-pay 2022 Medicaid [id number] 2022 Medicaid [id number] 2004 Unknown [id number] 2.16.8 40.1.569324.3.579.2.727 2004 Unknown [id number] 2.16.8 40.1.653165.3.579.2.727 2004 Unknown [id number] 2.16.8 40.1.606117.3.579.2.727 2004 Unknown [id number] 2.16.8 40.1.761763.3.579.2.72 2004 Unknown [id number] 2.16.8 40.1.750143.3.579.2.727 2004 Unknown [id number] 2.16.8 40.1.054141.3.579.2.727 2004 Unknown [id number] 2.16.8 40.1.499374.3.579.2.727 2004 Unknown [id number] 2.16.8 40.1.343401.3.579.2.7 2004 Unknown [id number] 2.16.8 40.1.319713.3.579.2.727 2004 Unknown [id number] 2.16.8 40.1.209523.3.579.2.727 2004 Unknown [id number] 2.16.8 40.1.474039.3.579.2.727 2004 Unknown [id number] 2.16.8 40.1.748021.3.579.2.727 2004 Unknown [id number] 2.16.8 40.1.459044.3.579.2.727 2004 Unknown [id number] 2.16.8 40.1.767634.3.579.2.727 2004 Unknown [id number] 2.16.8 40.1.924638.3.579.2.727 2004 Unknown [id number] 2.16.8 40.1.399127.3.579.2.727 2004 Unknown [id number] 2.16.8 40.1.237687.3.579.2.727 2004 Unknown [id number] 2.16.8 40.1.691384.3.579.2.727 2004 Unknown [id number] 2.16.84 0.1.532295.3.579.2.1259 2004 Unknown [id number] 2.16.84 0.1.086735.3.579.2.1259 2004 Unknown [id number] 2.16.84 0.1.036760.3.579.2.1259 2004 Unknown [id number] 2.16.84 0.1.062242.3.579.2.1259 2004 Unknown [id number] 2.16.84 0.1.165333.3.579.2.1259 2004 Unknown [id number] 2.16.84 0.1.279714.3.579.2.1259 2004 Unknown [id number] 2.16.84 0.1.318723.3.579.2.1259 2004 Unknown [id number] 2.16.84 0.1.145200.3.579.2.1259 2004 Unknown [id number] 2.16.84 0.1.458066.3.579.2.1259 1978 Unknown [id number] 2.16.84 0.1.978658.3.579.2.593 1959 Unknown [id number] Unknown [id number] Social History Date Type Detail Facility Tobacco Never smoker [facility] Comment on above: denies Start: 03-15-2023 End: 10-16-2023 Sex Assigned At Female [facility] Tobacco smoking status No Smokin g Status Entered [facility] Start: 01-01-2023 End: 03-15-2023 Tobacco smoking status Never smoked tobacco (finding) [facility] Comment on above: smokers in home Tobacco [facility] status [facility] Comment on above: smokers [...] [facility] Work Phone: Start: 04-01-2024 Sex Female (finding) [facility] Start: 2004 Sex Assigned At Female F [facility] Functional Status Date Assessment Result Facility 09-10-2023 Functional Status No [facility] 08-29-2023 Functional Status N/A [facility] 07-19-2023 Functional Status N/A [facility] 02-13-2023 Functional Status N/A [facility] 01-26-2023 Functional Status N/A [facility] 01-23-2023 Functional Status N/A [facility] 12-07-2022 Functional Status N/A [facility] 10-30-2022 Functional Status N/A [facility] 08-07-2022 Functional Status N/A [facility] 08-04-2022 Functional Status N/A [facility] 01-18-2022 Functional Status N/A [facility] 01-05-2022 Functional Status N/A [facility] 01-02-2022 Functional Status N/A [facility] 10-16-2021 Functional Status N/A [facility] 09-14-2021 Functional Status N/A [facility] Clinical Notes 05-23-2021 to 05-09-2024 Priscilla Ohara [...] or undercooked meat, and stay away from [facility]. Patient has also been advised to not change litter boxes and eat 6 small meals a day. Patient has been consulted regarding the do's and don'ts of . Patient was given labs and all questions and concerns were answered. Patient given MSAFP to have obtained. Patient declined [place]. Prenatals sent into pharmacy. Follow Up: Patient [...] or undercooked meat, and stay away from [facility]. Patient has also been advised to not change litter boxes and eat 6 small meals a day. Patient has been consulted regarding the do's and don'ts of . Patient was given labs and all questions and concerns were answered. Patient given MSAFP to have obtained, Declined [place] and script for sent. Follow Up: Patient is to return in 2 weeks for routine OB appointment. Follow Up: Patient is to have labs drawn at directed and return to office for initial OB appointment with provider. Patient may call office as needed with any concerns or questions. Nurse Visit Completed by: Priscilla Ohara LPN documented in this encounter [facility] 01-09-2024 Evaluation + Plan note Diagnostic Tests PendingChlamydia/Gonococcus, TIM 01/09/24 [facility] 10-17-2023 Telephone encounter Note Abnormal labs [facility] 10-17-2023 Miscellaneous Notes Abnormal labs documented in this encounter [facility] 10-16-2023 History of Present illness Narrative Jordin [...] to take meds for it. Sofía from [facility] counseling and recovery is her [...] 1.53)* * Growth percentiles are based on [facility] (Girls, 2-20 Years) data. Physical Exam General: [...] - CBC and differential; Future Bipolar depression ([facility]) - Ambulatory referral to Psychiatry; Future Anxiety - Ambulatory referral to Psychiatry; Future Attention deficit hyperactivity disorder (ADHD), combined type ([facility]) - Ambulatory referral to Psychiatry; Future PTSD (post-traumatic stress disorder) ([facility]) - Ambulatory referral to Psychiatry; Future History [...] Future Pt is to continue counseling at [facility]. Blood pressure looks good. documented in this encounter [facility] 09-12-2023 Note Discharge Instructio ns Given Worsening The following Patient Education Materials have been given to the patient: ~~ EducationMaterial [facility] 09-12-2023 Evaluation + Plan note Extrac real from: Title:OB Discharge Author:aMgalis Snow DO Date:09/12/23 Anemia affecting , antepartum [...] Headache, # 90 tab(s), Refills(s) 1, Pharmacy: [facility], 165.1, cm, 09/10/23 21:47:00 EDT, Height/Length Dosing, 84.5, kg, 09/10/23 21:47:00 EDT, Weight Dosing docusate, 100 mg = 1 cap(s), Oral, BID, # 30 cap(s), Refills(s) 1, Pharmacy: [facility] 1985, 165.1, cm, 09/10/23 21:47:00 EDT, Height/Length Dosing, 84.5, kg, 09/10/23 21:47:00 EDT, Weight Dosing ferrous sulfate, 325 mg = 1 tab(s), Oral, BIDWM, # 60 tab(s), Refills(s) 5, Pharmacy: [facility], 165.1, cm, 09/10/23 21:47:00 EDT, [...] comment), # 60 tab(s), Refills(s) 1, Pharmacy: [facility], 165.1, cm, 09/10/23 21:47:00 EDT, [...] Insertion Place in Status Shower Vital Signs [facility] [id number] NoteGetWell Understands Education Yes GetWell Education Video How to Swaddle Safely GetWell Learning Participants [facility]08-07-2024 NoteGetWell Learning Participants Patient GetWell Understands Education Yes GetWell Education Video [facility]aring for Yourself [facility]2024 NoteGetWell Education Video Caring for Your : Sleeping GetWell Learning Participants Patient GetWell Understands Education [facility]08-07-2024 NoteGetWell Understands Education Yes GetWell Education Video Jaundice in Newborns GetWell Learning Participants [facility]08-07-2024 NoteGetWell Education Video Bathing Your Baby GetWell Learning Participants Patient GetWell Understands Education [facility]08-07-2024 NoteGetWell Understands Education Yes GetWell Education Video Caring for Your : Feeding GetWell Learning Participants [facility]08-07-2024 NoteGetWell Education Video Using a Rubber Bulb to Clear a Baby's Nose GetWell Learning Participants Patient GetWell Understands Education [facility]08-07-2024 NoteGetWell Learning Participants Patient GetWell Education Video Safe Sleep for Babies GetWell Understands Education [facility]08-07-2024 NoteGetWell Education Video Understanding Depression GetWell Understands Education GetWell Learning [facility]08-07-2024 NoteGetWell Learning Participants Patient GetWell Understands Education Yes GetWell Education Video Ways to Keep Your Baby [facility]08-07-2024 NoteGetWell Learning Participants Patient GetWell Understands Education Yes GetWell Education Video Car Seat SafetyPrem[facility] Health08-07-2024 NoteGetWell Understands Education Yes GetWell Education Video Avoiding Infections in the Hospital GetWell Learning Participants [facility]08-07-2024 NoteGetWell Understands Education Yes GetWell Education Video How to Prevent Abusive Head Trauma GetWell Learning Participants [facility]08-07-2024 NoteGetWell Understands Education Yes GetWell Education Video Caring for Your : Umbilical Cord GetWell Learning Participants [facility]08-07-2024 NoteDischarge Instructions Given Worsening The following Patient Education Materials have been given to the patient: ~~ [facility]24 NoteDischarge Summary Assessment/Plan Anemia affecting , antepartum [...] Headache, # 90 tab(s), Refills(s) 1, Pharmacy: [facility], 165.1, cm, 09/10/23 21:47:00 EDT, Height/Length Dosing, 84.5, kg, 09/10/23 21:47:00 EDT, Weight Dosing docusate, 100 mg = 1 cap(s), Oral, BID, # 30 cap(s), Refills(s) 1, Pharmacy: [facility] 1985,165.1, cm, 09/10/23 21:47:00 EDT, Height/Length Dosing, 84.5, kg, 09/10/23 21:47:00 EDT, Weight Dosing ferrous sulfate, 325 mg = 1 tab(s), Oral, BIDWM, # 60 tab(s), Refills(s) 5, Pharmacy: [facility], 165.1, cm, 09/10/23 21:47:00 EDT, [...] comment), # 60 tab(s), Refills(s) 1, [facility], 165.1, cm, 09/10/23 21:47:00 EDT, [...] cord and intact placenta was delivered spontaneously. [id number] mL. Patient recovering and stable condition in [...] Details Baby A Delivery Type:Vaginal D-EGA at [id number] weeks 5 days Total Length of Labor:259 [...] Physician: Magalis Snow DO (more content not included)...[facility]: Result Comment: Electronically Signed By: Magalis Snow DO\.br\Date and Time Signed: 09/12/23 08:47 [id number] Hospital Discharge instructions Patient Education 09/11/2023 18:38:23 [...] , tell your health care provider or retail marketing specialist. If you do not breastfeed: ?Avoid touching your breasts. Do not squeeze out (express) milk. Doing this can make your breasts produce more milk. ?Wear a bra that supports your breasts and fits well. Use cold packs to help with swelling. ?Talk to your health care provider about what mbyh-xor-vczssrm medicines can help with pain. Intimacy and [...] control (contraception) or family planning. Medicines Take otbm-qee-ophydfy and prescription medicines only as told by your health care provider. Take an iacn-ndl-xovkfyn stool softener to help ease bowel movements as told by your health care provider. If you were prescribed antibiotics, take them as told by your health care provider. Do not stop using the antibiotic even if you start to feel better. Review all previous and current prescriptions to check for the possible transfer into your breast milk. Ask your health care provider or retail marketing specialist for help if needed. Activity [...] Services Office of Women's Health: [email or web address].gov [employer]: [employer] Contact [...] emergency room or: Call 911. Call the [employer] Suicide Prevention Lifeline at or 376. This is open 24 hours a day. Text the Crisis Text Line at 346313. Summary The period of time after you [...] provider. Document Revised: 05/10/2022 Document Reviewed: 04/25/2022 Variab.ly Patient Education 2022 [employer] 09/11/2023 05:46:09 Anemia Anemia Anemia is a [...] spleen. Follow these instructions at home: Take zkcm-whn-gfzjluh and prescription medicines only as told by [...] provider. Document Revised: 04/17/2022 Document Reviewed: 04/17/2022 Variab.ly Patient Education 2022 [employer] Follow Up Care 09/10/2023 21:03:40 With:Magalis Snow Address: [address] [place], [place] [phone] Business (1) When:6 weeks [facility] [id number] NoteDischarge Instructions Given Worsening The following Patient Education Materials have been given to the patient: ~~ [facility] NoteProgress Note-Physician Patient: JORDIN TYLER Age: 18 years Sex: Female : 2005 Associated Diagnoses: None Author: Ra Casas Jr., DO Postoperative Information Postoperative disposition: Postoperative disposition: Day 2. Optimetrix number: Optimetrix number [id number]. Anesthetic utilized: Regional: Epidural. Physical Examination Hemodynamically stable. Pain Assessment: Controlled. General: Awake, Alert, Appropriate. Respiratory: Adequate air exchange. Cardiovascular: Stable. Neurological: Normal sensory function. Assessment Anesthetic outcome No post-epidural complications noted.. Review / Management Condition: Stable. Plan Transfer/Discharge: Stable for discharge from anesthetic standpoint..[facility] HealthComment on above:Result Comment: Electronically Signed By: Ra Casas Jr., DO\.br\Date and Time Signed: 09/11/23 07:10 [id number] NoteProgress Note-Physician Patient: JORDIN TYLER Age: 18 years Sex: Female : 2005 Associated Diagnoses: None Author: Ra Casas Jr., DO Chief Complaint Intrauterine Health Status Allergies: Allergic Reactions (All) No Known Allergies Canceled/Inactive Reactions (All) No Known Medication Allergies Current medications.Problem list: All Problems 37 weeks gestation of / SNOMED CT 99090491 / Confirmed ADHD (attention deficit hyperactivity disorder), combined type / SNOMED CT 82491459 / Confirmed Age mother conceived under 17 / Patient Care / Confirmed Encounter for supervision of normal first , third trimester / SNOMED CT 441212889 / Confirmed Infection / SNOMED CT 65276062 / Confirmed / SNOMED CT 784752992 / Confirmed Shortness of breath in pediatric patient / SNOMED CT 902998320 / Confirmed Very young maternal age, antepartum / SNOMED CT 457818485 / Confirmed Resolved: Acute gastroenteritis / SNOMED CT 700648854 resolved per patient Resolved: Acute low back pain due to trauma / SNOMED CT 492308730 resolved per patient Resolved: Blurry vision, left eye / SNOMED CT 315596149 resolved per patient Resolved: Chest pain / SNOMED CT 37070817 resolved per patient Resolved: Inspiratory stridor / SNOMED CT 342058305 Resolved: Post-traumatic stress syndrome / SNOMED CT 32622218 resolved per patient. Resolved: / SNOMED CT 389363059 Resolved: / SNOMED CT 297295729 Resolved: Strep pharyngitis / SNOMED CT 21169802 Resolved: Viral gastroenteritis / SNOMED CT 212264806 Resolved: Vomiting / SNOMED CT 5729051658 Canceled: None / SNOMED CT 533012041 Review of Systems Respiratory: Negative. Cardiovascular: Negative. [...] 30 minutes. The PCEA was started at 0145.Premier HealthComment on above:Result Comment: Electronically Signed By: Ra Casas Jr., DO.berkley\Date and Time Signed: 09/11/23 07:09 [id number] NoteHistory and Physical Reason for Visit OB [...] MethodExternal toco Cervical Cervix Dilation4.5 cm Cervix Ktyvtffnai69 Station Calculation-3 LMP/EGA/ALISHA Gestational Age (EGA) and [...] gastroenteritis Vomiting Procedure/Surgical History (more content not included)...Premier HealthComment on above:Result Comment: Electronically Signed By: Magalis Snow DO\.br\Date and Time Signed: 09/11/23 01:31 [id number] Evaluation + Plan note Diagnostic Tests Pending * Group B Streptococcus colonization by PCR 09/05/23 [facility] [id number] Hospital Discharge instructions Patient Education 08/29/2023 16:59:58 Dehydration, Adult, Wilo-cr-Oyel Dehydration, Adult Dehydration is condition in which [...] of fat or sugar. General instructions Take lxdf-jqy-ppmspjx and prescription medicines only as told by [...] start slowly drinking other clear fluids. Take bqmw-vmw-tlwlvkm and prescription medicines only as told by your doctor. Get help right away if you have any symptoms of very bad dehydration. This information is not intended to replace advice given to you by your health care provider. Make sure you discuss any questions you have with your health care provider. Document Revised: 05/31/2022 Document Reviewed: 09/04/2019 Variab.ly Patient Education 2022 [employer] Follow Up Care 08/29/2023 14:46:47 With:Magalis Snow Address: [address] [place] [phone] Business (1) When:09/05/2023 13:00:00 Comments:Call for any problems. [facility] 07-24-2024 Evaluation + Plan note Diagnostic Tests Pending * Urine Culture 08/29/23 [facility] [id number] Evaluation + Plan note Diagnostic Tests Pending * Urine Culture 07/19/23 [facility]06-13-2024 NoteThe following Patient Education Materials have been given to the patient: [facility]Material[facility]06-13-[facility] Hospital Discharge instructions Follow Up Care 07/19/2023 06:05:30 With:Magalis Snow Address: [address] [place], [place] [phone]- Business (1) When:07/25/2023 Comments:Call for any problems.Call physician if symptoms worsenReturn for contractions closer, longer, harderReturn for decreased movementReturn if ruptured membranes or vaginal bleeding [facility]06-03-2024 Evaluation + Plan note Diagnostic Tests Pending * Hepatitis B Surface Antigen 07/09/23 * RPR with Conf Rfx 07/09/23 * HIV Screen 4th Generation wRfx 07/09/23 * Urine Culture 07/09/23 [facility]02-13-2024 History of Present illness Narrative* Kourtney Pierce, [...] when she fell down some stairs at [place]. No fx. Not sure how long she [...] for a routine visit. documented in this [facility]02-08-2024 History of Present illness Narrative* Miryam Ingram [...] lb 1 oz F Vag-Spont EPI N CHACNE 1 Term 06/07/21 40w0d 7 lb 14 [...] genetic and chromosomal testing documented in this [facility]01-09-2024 Hospital Discharge instructions Patient Education 02/13/2023 17:17:08 [...] products, such as yogurt. General instructions Take guof-hit-ykuofce and prescription medicines only as told by [...] provider. Document Revised: 10/06/2021 Document Reviewed: 10/06/2021 Variab.ly Patient Education 2022 [employer] 02/13/2023 17:17:01 Urinary Tract Infection, Adult, Xepq-sa-Zots Urinary Tract Infection, Adult A urinary tract [...] Follow these instructions at home: Medicines Take ruky-pmw-umcykgt and prescription medicines only as told by [...] provider. Document Revised: 09/03/2020 Document Reviewed: 09/03/2020 Variab.ly Patient Education 2022 [employer] 02/13/2023 17:16:58 Hyperemesis Gravidarum Hyperemesis Gravidarum Hyperemesis [...] or daniel tea. Taking prescription medicine or zhpw-qdg-rwkwaxh medicine as told by your health care [...] sour. These include lemonade, daniel brittanie, lemon nondalton soda, ice water, and sparkling water. Things [...] your appetite or trigger nausea. General instructions Stevens your teeth or use a mouth rinse after meals. Take jnrl-aua-ejvfnau and prescription medicines only as told by [...] provider. Document Revised: 08/16/2020 Document Reviewed: 08/16/2020 ElseSparktrend Patient Education 2022 [employer] Inc. Follow Up Care 02/13/2023 14:16:46 With:Paul CASE, TASHI Bojorquez Address: [address] [place] [address]- When:2 to 4 days [facility]01-09-2024 Evaluation + Plan note Diagnostic Tests Pending * Urine Culture 02/13/23 [facility]12-22-2023 Hospital Discharge instructions Patient Education 01/26/2023 21:19:18 [...] Follow these instructions at home: Medicines Take bqps-enh-jvviimo and prescription medicines only as told by your health care provider. Do not use any prescription, wyyi-ssj-odtisvc, or herbal medicines for morning sickness without [...] provider. Document Revised: 09/06/2020 Document Reviewed: 08/16/2020 Variab.ly Patient Education 2022 [employer] 01/26/2023 21:19:18 Nausea and Vomiting, Adult, Knuu-yz-Rrys Nausea and Vomiting, Adult Nausea is feeling [...] fruit juice). ?Low-calorie sports drinks. Eat bland, bpfu-lr-npeycc foods in small amounts as you are able, such as: ?Bananas. ?Applesauce. ?Rice. ?Low-fat (lean) meats. ?[place]. ?Crackers. Avoid drinking fluids that have a lot of sugar or caffeine in them. This includes energy drinks, sports drinks, and soda. Avoid alcohol. Avoid spicy or fatty foods. General instructions Take kmxl-xts-imxwlkv and prescription medicines only as told by your doctor. Drink enough fluid to keep your pee (urine) pale yellow. Wash your hands often with soap and water for at least 20 seconds. If you cannot use soap and water, use hand seismograph recorder. Make sure that everyone in your home [...] your doctor about eating and drinking. Take cxmn-woi-sjhvxqm and prescription medicines only as told by your doctor. Contact your doctor if your symptoms get worse or you have new symptoms. Keep all follow-up visits. This information is not intended to replace advice given to you by your health care provider. Make sure you discuss any questions you have with your health care provider. Document Revised: 07/29/2021 Document Reviewed: 07/29/2021 Variab.ly Patient Education 2022 [employer] Follow Up Care 01/26/2023 19:06:29 With:Ras Miller Address: [address] [place] [phone] [facility] (1) When:01/29/2023 21:05:41 Comments:Follow-up with your primary care provider in 3 to 5 days. If symptoms worsen, do not improve, or new symptoms arise please report back to emergency department for further evaluation. With:[employer] Address:Unknown When:Within 3 Day(s) [facility]12-22-2023 Evaluation + Plan noteExtracted from: Title:ED Note [...] Diagnostic Tests Pending * Urine Culture 01/26/23 [facility]12-19-2023 Hospital Discharge instructions Patient Education 01/23/2023 17:56:52 [...] water added (diluted fruit juice). Eat bland, vgpy-vj-hhdqhb foods in small amounts as you are able. These foods include bananas, applesauce, rice, lean meats, toast, and crackers. Avoid fluids that contain a lot of sugar or caffeine, such as energy drinks, sports drinks, and soda. Avoid alcohol. Avoid spicy or fatty foods. General instructions Take tilc-uen-vmvxzrq and prescription medicines only as told by your health care provider. Drink enough fluid to keep your urine pale yellow. Wash your hands often using soap and water for at least 20 seconds. If soap and water are not available, use hand seismograph recorder. Make sure that everyone in your household [...] eating and drinking to prevent dehydration. Take pbug-gev-iomlkpt and prescription medicines only as told by [...] provider. Document Revised: 07/29/2021 Document Reviewed: 07/29/2021 Variab.ly Patient Education 2022 [employer] Follow Up Care 01/23/2023 11:32:50 With:Ras Miller Address: [address] [place], [place] [address]ALEXND JIMMY, [address] [address] Business (1) When:01/26/2023 17:40:04 [facility]12-19-2023 Evaluation + Plan noteExtracted from: Title:ED Note [...] UA With Cult Reflex US 1st Trimester [facility]11-27-2023 NoteInfectious Disease COVID-19 COVID-19, or coronavirus disease [...] managed at home with rest, fluids, and cppv-ceq-rcfpnsd medicines. ? Serious symptoms may be treated [...] condition. ? You should (more content not included)...[facility]11-27-20[facility] Evaluation + Plan note Diagnostic Tests Pending * Group A Strep by PCR 01/01/23 [facility]11-03-2023 Hospital Discharge instructions Patient Education 12/08/2022 00:29:17 [...] provider. Document Revised: 10/25/2020 Document Reviewed: 10/25/2020 Variab.ly Patient Education 2022 [employer] Follow Up Care 12/07/2022 22:59:47 With:Cara Bullard Address: [address] , [address] [address] [facility] (1) When:12/10/2022 Comments:Few concerns about continued can take up test at home in approximately 1 week. Please follow-up with your primary care doctor next 2 to 3 days. Please return to the ED for any newor worsening symptoms. With:XXXX NONE Address: [place] When:Within 3 Day(s) [facility]11-02-2023 Evaluation + Plan noteExtracted from: Title:ED Note Author:Damaris Jean Baptiste DO Date :12/07/22 Encounter for medical screen ing examination (Z13.9: Encounter for screening, unspecified) Orders: U Beta Hcg Qual UA With Cult Reflex Urine Culture [facility]09-25-2023 Hospital Discharge instructions Patient Education 10/30/2022 11:19:02 Dental Pain, Vhmw-cp-Lwtr Dental Pain Dental pain is often a [...] Follow these instructions at home: Medicines Take rvil-wwm-efcsopu and prescription medicines only as told by [...] damage to the area. Brushing your teeth Stevens your teeth twice a day using a [...] only when you eat or drink. Take iseo-aev-iwykhlx and prescription medicines only as told by your dentist. Watch your dental pain for any changes. Let your dentist know if symptoms get worse. This information is not intended to replace advice given to you by your health care provider. Make sure you discuss any questions you have with your health care provider. Document Revised: 10/27/2020 Document Reviewed: 10/27/2020 Variab.ly Patient Education 2022 [employer] Follow Up Care 10/30/2022 10:44:51 With:Dental: [facility] [phone] Address:Unknown When:11/02/2022 11:12:14 With:Dental: [facility] [phone] Address:Unknown When:11/02/2022 11:12:13 With:Dental: [facility] [phone] Address:Unknown When:11/02/2022 11:12:13 [facility]07-07-2023 NoteDATE OF DISCHARGE: 08/10/2022 The patient is [...] Without complications. Ras Miller M.D. Dictated: 08/10/2022 [id number] Transcribed: 08/10/2022Premier HealthComment on above:Result Comment: Electronically Signed By: Paul CASE, Ras Radford\.br\Date and Time Signed: 08/11/22 08:18 [id number] NoteThe following Patient Education Materials have been given to the patient: [facility]07-05-2023 Evaluation + Plan note Extracted from: [...] Plan Labor epidural at request of patient.. [facility]07-03-2023 Hospital Discharge instructions Follow Up Care 08/07/2022 06:16:53 With:Eduardo Butler Address: [address] [place] [phone] [facility] (1) When:6 weeks Comments:Call Dr if fever>100.5 F, heavy bleedingCall for any problems. [facility]06-30-2023 NoteThe following Patient Education Materials have been given to the patient: [facility]Material[facility]06-30-2023 Hospital Discharge instructions Follow Up Care 08/04/2022 10:54:12 With:Eduardo Butler Address:Unknown When:1 week Comments:Appointment has already been scheduledCall for any problems.Call for severe abdominal painCall physician if symptoms worsenReturn for contractions closer, longer, harderReturn for decreased movementReturn if ruptured membranes or vaginal bleeding [facility]12-14-2022 Evaluation + Plan noteExtracted from: Title:ED Note [...] Nausea/Vomiting, # 20 tab(s), Refills(s) 0, Pharmacy: [facility] #[id number], 165.1, cm, 01/18/22 1:14:00 EST, Height/Length Dosing, 74.4, kg, 01/18/22 1:14:00 EST, Weight Dosing ondansetron, 4 mg = 2 mL, Injection, IV Push, Once, Stop date 01/18/22 1:21:00 EST, STAT, Start date 01/18/22 1:21:00 EST, 01/18/22 1:21:00 EST Add on Test Basic Metabolic Panel Beta hCG Quantitative eGFR Rapid COVID Antigen [place] UA With Cult Reflex US 1st Trimester [facility]12-14-2022 Hospital Discharge instructions Patient Education 01/18/2022 04:21:37 [...] Move your legs often if you must mixing picker tender one placefor a long time. Avoid heavy [...] disease or chickenpox. You are exposed to Danish measles (rubella) and have never had it. [...] 01/16/2002 Document Revised: 01/04/2018 Document Reviewed: 01/03/2017 Variab.ly Patient Education [address] [employer] Follow Up Care 01/18/2022 00:46:10 With:Ras Miller Address: [facility] [address] [address] [facility] (1) When:01/21/2022 [facility]12-01-2022 Hospital Discharge instructions Patient Education 01/05/2022 12:47:03 [...] Treatment for this condition includes: Antibiotic medicine. Gquh-jce-roykdpf medicines to treat discomfort. Drinking enough water [...] Follow these instructions at home: Medicines Take edpi-usq-rggsdce and prescription medicines only as told by [...] 11/01/2005 Document Revised: 01/09/2019 Document Reviewed: 08/01/2018 Variab.ly Patient Education 2020 [employer] 01/05/2022 12:47:03 Nausea and Vomiting, Adult Nausea [...] water added (diluted fruit juice). Eat bland, xagf-dj-qcuyja foods in small amounts as you are able. These foods include bananas, applesauce, rice, lean meats, toast, and crackers. Avoid fluids that contain a lot of sugar or caffeine, such as energy drinks, sports drinks, and soda. Avoid alcohol. Avoid spicy or fatty foods. General instructions Take zmhz-pyk-urducok and prescription medicines only as told by your health care provider. Drink enough fluid to keep your urine pale yellow. Wash your hands often using soap and water. If soap and water are not available, use hand seismograph recorder. Make sure that all people in your [...] eating and drinking to prevent dehydration. Take lqcd-dyq-tmjjito and prescription medicines only as told by [...] 01/22/2006 Document Revised: 05/16/2019 Document Reviewed: 07/02/2018 Variab.ly Patient Education 2020 [employer] Follow Up Care 01/05/2022 07:49:33 With:Ras Miller Address: [address] [place], [place] [phone] Business (1) When:01/08/2022 10:01:01 With:Vijay PACHECO Address: [address] [place] [address] Business (1) When:01/08/2022 10:00:58 [facility]12-01-2022 Evaluation + Plan noteExtracted from: Title:ED Note Author:Colby Ayers PA-C te:01/05/22 Nausea and vomiting (R11.2: Nausea with vomiting, unspecified) UTI in (O23.40: Unspecified infection of urinary tract in , unspecified trimester) Orders: cephalexin, 500 mg = 1 cap(s), Oral, q12hr, X 7 day(s), # 14 cap(s), Refills(s) 0, Pharmacy: [facility] #[id number], 165, cm, 01/05/22 7:56:00 EST, Height/Length Dosing, [...] TID, # 15 tab(s), Refills(s) 0, [id number], 165, cm, 01/05/22 7:56:00 EST, Height/Length Dosing, 74.1, kg, 01/05/22 7:56:00 EST, Weight Dosing Diagnostic Tests Pending * Urine Culture 01/05/22 [facility]11-28-2022 Hospital Discharge instructions Patient Education 01/02/2022 14:19:40 Nausea and Vomiting, Adult, Oeth-wt-Dnus Nausea and Vomiting, Adult Nausea is feeling [...] fruit juice). ?Low-calorie sports drinks. Eat bland, dhqd-ri-lmrirm foods in small amounts as you are able, such as: ?Bananas. ?Applesauce. ?Rice. ?Low-fat (lean) meats. ?[place]. ?Crackers. Avoid drinking fluids that have a lot of sugar or caffeine in them. This includes energy drinks, sports drinks, and soda. Avoid alcohol. Avoid spicy or fatty foods. General instructions Take klei-xjn-cazdnuw and prescription medicines only as told by your doctor. Drink enough fluid to keep your pee (urine) pale yellow. Wash your hands often with soap and water. If you cannot use soap and water, use hand seismograph recorder. Make sure that all people in your [...] too much water in your body. Take ybpy-gfw-usxhpjc and prescription medicines only as told by [...] 07/10/2008 Document Revised: 05/16/2019 Document Reviewed: 07/02/2018 Variab.ly Patient Education 2020 [employer] 01/02/2022 14:19:40 Care Care care is health care during . It helps you and your unborn baby (fetus) stay as healthy as possible. care may be provided by a reference investigator, a family practice health care provider, or a childbirth and specialist (bankruptcy assistant). How does this affect me? During , [...] or procedures you have had. ?Any current yeri-hfz-tdmiypn or prescription medicines, herbs, or supplements you [...] more information Office on Women's Health: womenshealth.gov [place] Association: americanpregnancy.org April Dimes: marchofdimes.org Summary care [...] 2005 Document Revised: 05/14/2019 Document Reviewed: 01/21/2018 Variab.ly Patient Education 2020 [employer] Follow Up Care 01/02/2022 12:36:12 With:Ras Miller Address: [address], [facility] [address] [place] [address]- Business (1) When:01/05/2022 14:06:25 Comments:Follow-up with Dr. Miller for further evaluation of your . With:Holli Moctezuma Address: [address] [place] [address]- Business (1) When:01/05/2022 14:06:17 Comments:Follow-up with your primary care provider in 3 to 5 days. If symptoms worsen, do not improve, or new symptoms arise please report back to emergency department for further evaluation. [facility]11-28-2022 Evaluation + Plan noteExtracted from: Title:ED Note Author:Donavan Lawson PA-C te:01/02/22 Nausea and/or vomiting (R11. 2: Nausea with vomiting, unspecified) (Z34.90: Encounter for supervision of normal , unspecified, unspecified trimester) Orders: metoclopramide, 5 mg = 1 tab(s), Oral, q6hr, X 7 day(s), # 28 tab(s), Refills(s) 0, Pharmacy: [facility] #[id number], 165, cm, 10/16/21 20:16:00 EDT, Height/Length Dosing, [...] Lipase Level Morphology UA With Cult Reflex [facility]09-11-2022 Hospital Discharge instructions Patient Education 10/16/2021 21:36:36 [...] discomfort that you are feeling: Medicines Take grxu-vzg-yxsabey and prescription medicines only as told by [...] if directed by your health care provider. Stevens your teeth with a soft-bristled toothbrush. General [...] pain may be mild or severe. Take szjk-nkj-gnbvffx and prescription medicines only as told by [...] 01/22/2006 Document Revised: 05/20/2019 Document Reviewed: 12/13/2017 Vari[employer] Patient Education 2020 [employer] 10/16/2021 21:36:36 Dental Caries, Adult Dental Caries, [...] is this prevented? To prevent dental caries: Stevens your teeth every morning and night with [...] 10/14/2002 Document Revised: 01/04/2018 Document Reviewed: 08/04/2016 Vari[employer] Patient Education 2020 [employer] Follow Up Care 10/16/2021 20:06:09 With:Dental: [facility] [phone] Address:Unknown When:10/19/2021 21:25:41 With:Dental: [facility] [phone] Address:Unknown When:10/19/2021 21:25:40 With:Dental: [facility] [phone] Address:Unknown When:10/19/2021 21:25:39 [facility]08-10-2022 Evaluation + Plan noteExtracted from: Title:ED Note Author:Colby Ayers PA-C te:09/14/21 Pain, dental (K08.89: Other specified disorders of teeth and supporting structures) Orders: naproxen, 500 mg = 1 tab(s), Oral, BID, # 20 tab(s), Refills(s) 0, Pharmacy: [facility]/pharmacy #[id number], 165.1, cm, 06/07/21 7:55:00 EDT, Height/Length Dosing, 83.6, kg, 06/07/21 7:55:00 EDT, Weight Dosing penicillin V potassium, 500 mg = 1 tab(s), Oral, TID, Take one tab by mouth 3 times a day. # 30, X 10 day(s), # 30 tab(s), Refills(s) 0, Pharmacy: [facility]/pharmacy #[id number], 165.1, cm, 06/07/21 7:55:00 EDT, Height/Length Dosing, 83.6, kg, 06/07/21 7:55:00 EDT, Weight Dosing [facility]08-10-2022 Hospital Discharge instructions Patient Education 09/14/2021 08:17:40 [...] discomfort that you are feeling: Medicines Take gpke-njl-tswtxxt and prescription medicines only as told by [...] if directed by your health care provider. Stevens your teeth with a soft-bristled toothbrush. General [...] pain may be mild or severe. Take yptt-wck-gteczpr and prescription medicines only as told by [...] 01/22/2006 Document Revised: 05/20/2019 Document Reviewed: 12/13/2017 [employer] Patient Education 2020 [employer] Follow Up Care 09/14/2021 08:05:08 With:Dental: [facility] [phone] Address:Unknown When:09/17/2021 08:10:39 With:Dental: [facility] [phone] Address:Unknown When:09/17/2021 08:10:38 With:Dental: [facility] [phone] Address:Unknown When:09/17/2021 08:10:37 [facility]05-04-2022 Evaluation + Plan noteExtracted from: Title:OB Inpatient Progress note Auth or:Ras Miller MD Date:06/08/21 Impression and Plan Plan Routine care. Course: Progressing as expected. [facility]05-03-2022 Hospital Discharge instructions Follow Up Care 06/07/2021 07:07:01 With:Dr. Miller [phone] Address:Unknown When:6 weeks Comments:Call for any problems.Call for fever > 100.5 FCall for severe abdominal painCall physician for heavy vaginal bleedinNothing in the vagina for 6 weeksCall for 6 week appt [facility]04-18-2022 Evaluation + Plan note Diagnostic Tests Pending * Group B Streptococcus colonization by PCR 05/23/21 [facility]* Diagnosis Supervision of normal intrauterine in [...] this encounter [facility] noteNo assessment information availableCl[facility] Work Phone: Evaluation note* Diagnosis Missed menses , unspecified gestational age Encounter for supervision of normal first in first trimester documented in this encounter [facility] HealthcareHospital course Narrative No data available for this section [facility] No data available for this section [facility] No data available for this section [facility] HospitalReason for referral (narrative)* Consultation (Routine) - Authorized Specialty Diagnoses / Procedures Referred By Contac t Referred To Contact Dermatology Diagnoses Skin lesion of left arm Procedures CO OFFICE/OUTPATIENT NEW HIGH MDM 60 MINUTES Mak Jordan NP [address] [place] [address] Referral ID Status Reason Start Date Expiration Date Visits Requested Visits Authorized [id number] Authorized Specialty Services Required 10/16/2023 04/13/2024 1 1 * Consultation (Routine) - Pending Review Specialty Diagnoses / Procedures Referred By Dulce hughes Referred To Contact Psychiatry Diagnoses Bipolar depression ([facility]/HCC) Anxiety Attention deficit hyperactivity disorder (ADHD), combined type (CMS/HCC) PTSD (post-traumatic stress disorder) ([facility]/HCC) Procedures CO OFFICE/OUTPATIENT NEW HIGH MDM 60 MINUTES Mak Jordan NP [address] [place] [address] Referral ID Status Reason Start Date Expiration Date Visits Requested Visits Authorized [id number] Pending Review Specialty Services Required 10/16/2023 04/13/2024 1 1 [facility] Healthcare Summary Purpose Family History No [...] and content) DATE CREATED AUTHOR 11/05/2020 [facility] DATE CREATED AUTHOR AUTHOR'S ORGANIZ ATION 07/10/2023 [facility] DATE CREATED AUTHOR AUTHOR'S ORGANIZ ATION 07/12/2023 [facility] DATE CREATED AUTHOR AUTHOR'S ORGANIZ ATION 07/20/2023 [facility] DATE CREATED AUTHOR AUTHOR'S ORGANIZ ATION 07/21/2023 [facility] DATE CREATED AUTHOR AUTHOR'S ORGANIZ ATION 07/27/2023 [facility] DATE CREATED AUTHOR AUTHOR'S ORGANIZ ATION 09/08/2023 [facility] DATE CREATED AUTHOR AUTHOR'S ORGANIZ ATION 09/12/2023 [facility] DATE CREATED AUTHOR AUTHOR'S ORGANIZ ATION 09/14/2023 [facility] DATE CREATED AUTHOR AUTHOR'S ORGANIZ ATION 09/15/2023 [facility] DATE CREATED AUTHOR AUTHOR'S ORGANIZ ATION 09/21/2023 [facility] DATE CREATED AUTHOR AUTHOR'S ORGANIZ ATION 01/15/2024 [facility] DATE CREATED AUTHOR AUTHOR'S ORGANIZ ATION 04/03/2024 [facility] DATE CREATED AUTHOR AUTHOR'S ORGANIZ ATION 05/12/2024 [facility] EPIC Patient Care team informatio n (unrecognized section and content) Lab Technician Relationship Specialty Start Date End Date Sadie Thomas MD [address] [place] [address] PCP - General Family Medicine 10/22/23 Mak Jordan NP [address] [place] [address] Nurse Practitioner Family Medicine 10/22/23 Team Status: [...] April 01, 2024 End: April 01, 2024 Lab Technician Relationship Specialty Start Date End Date Unallocated, Sheryl Domingo MD [address] [place] [address] PCP - General 07/19/22 Lab Technician Relationship Specialty Start Date End Date Unallocated, [facility] Provider [address] [place] [address] PCP - General 07/19/22 Personnel Name: LLC, GENERIC Name: Kourtney LEMONS Address: Address: [facility] [employer], [address] Personnel Name: NONE, XXXX Address: Address: [facility] Name: Kourtney LEMONS Address: Address: [facility] [address] Personnel Name: Vijay PACHECO MD Address: Address: [address] [place] [address] Personnel Name: Holli Moctezuma DO Address: Address: [address] [place] [address] Kirsty, [facility], [facility] [address] Reason for Visit (unrecogniz ed section [...] BE BASED ON THE PRIMARY CLINICAL RECORDS. [facility] [employer] provides no warranty or guarantee of the accuracy or completeness of information in this document.
--- NOTE | 2024-05-19 04:27 | ED_ITS ---
HPI HPI - General Adult General Chief complaint: Shortness of Breath/Dyspnea Stated complaint: SOB Time Seen by Provider: 05/19/24 04:18 Source: patient Mode of arrival: walk-in Limitations: no limitations History of Present Illness HPI narrative: 19-year-old female presented to the emergency department for difficulty breathing. She states this started a few days ago after being exposed to dust after vacuuming. She has not had a fever or productive cough. She was seen here few days ago and received a breathing treatment and felt better after it. She states she was not given a prescriptions. No productive cough or fever. Related Data Previous Rx's ?Medication ?Instructions ?Recorded albuterol sulfate 90 mcg/actuation 2 inh inhalation Q4H PRN shortness 05/19/24 aerosol inhaler of breath or wheezing #8.5 grams Allergies Allergy/AdvReac Type Severity Reaction Status Date / Time amoxicillin (From Amoxil) Allergy hives Verified 05/19/24 04:09 Opioid HPI Opioid Management Most Recent Opioid Data: Ur Phencyclidine Scrn Negative (NEGATIVE) 01/02/24 03:14 12/07 08/28 Review of Systems ROS Narrative A ten point review of systems is negative except as noted above. PFSH PFSH Social History Little interest or pleasure in doing things: not at all Feeling down, depressed, or hopeless: not at all Exam Narrative Exam Narrative: Nurses note and vital signs reviewed and patient is not hypoxic. General: The patient appears well and in no apparent distress. Patient is resting comfortably on cart. Skin: Warm, dry, no pallor noted. There is no rash noted. Head: Normocephalic, atraumatic Eye: Normal conjunctiva, no drainage Ears, Nose, Mouth, and Throat: oral mucosa is moist. Nares patent. Cardiovascular: Regular Rate and Rhythm Respiratory: Patient is in no distress, no accessory muscle use, lungs show excellent air movement with no rales or rhonchi. When she is not speaking she seems to have noises in her throat when she inhales which is not present when she is speaking. Back: non-tender GI: Soft and nontender Musculoskeletal: The patient has no evidence of calf tenderness, no pitting edema, symmetrical pulses noted bilaterally Neurological: A&O, normal speech Psychiatric: Cooperative Constitutional Vital Signs, click to edit/add: Last Vital Signs Temp 98.2 F 05/19/24 04:05 Pulse 81 05/19/24 04:05 Resp 20 05/19/24 04:05 BP 95/57 05/19/24 04:05 Pulse Ox 99 05/19/24 04:05 O2 Del Method Room Air 05/19/24 04:05 Course Vital Signs Vital signs: Vital Signs Temperature 98.2 F 05/19/24 04:05 Pulse Rate 81 05/19/24 04:05 Respiratory Rate 20 05/19/24 04:05 Blood Pressure 95/57 05/19/24 04:05 Pulse Oximetry 99 05/19/24 04:05 Oxygen Delivery Method Room Air 05/19/24 04:05 Temperature 98.2 F 05/19/24 04:05 Pulse Rate 81 05/19/24 04:05 Respiratory Rate 20 05/19/24 04:05 Blood Pressure 95/57 05/19/24 04:05 Pulse Oximetry 99 05/19/24 04:05 Oxygen Delivery Method Room Air 05/19/24 04:05 Medical Decision Making MDM Narrative Medical decision making narrative: The patient does not have stridor on physical exam. She was given an aerosol treatment and discharged home with an albuterol prescription. Treatment diagnosis and follow-up were discussed with the patient. She had a negative chest x-ray a few days ago. Differential Diagnosis Differential Diagnosis: Reactive airway disease, anxiety, asthma Discharge Plan Discharge Chief Complaint: Shortness of Breath/Dyspnea Clinical Impression: Mild reactive airways disease Patient Disposition: Home, Self-Care Time of Disposition Decision: 04:26 Condition: Good Mode of Transportation: Private Vehicle Prescriptions / Home Meds: New albuterol sulfate 90 mcg/actuation HFA aerosol inhaler 2 inh inhalation Q4H PRN (Reason: shortness of breath or wheezing) Qty: 8.5 0RF Print Language: Kinyarwanda Instructions: Wheezing (ED) Referrals: Physician,Non-Staff, MD [Primary Care Provider] - 1 week
[2024-05-19] MEDS: ALBUTEROL SULFATE 2.5 MG/3 ML VIAL NEB IH (04:35)
[2024-05-19 04:37] VITALS: PULSE 79; O2SAT 99
[2024-05-19 04:56] VITALS: O2SAT 100
== END 2024-05-19 04:56 | disposition home or self-care (01) ==
PROVIDERS: Emergency Provider Emergency Medicine
DX: J45.909 Unspecified asthma, uncomplicated (principal)
CPT/HCPCS: 94640; 99283

== ENCOUNTER 2024-05-27 14:19 | Outpatient (OUT) | payer MEDICAID, SELFPAY ==
--- NOTE | 2024-05-27 14:24 | US_ITS ---
The [address] [address] Patient Name: JORDIN TYLER MRN: [id number] date: 2005 Sex: F Assigned Patient Location: Current Patient Location: US Accession/Order Number: [id number] Exam Date: 05/27/2024 15:55 Report Date: 05/27/2024 15:59 At the request of: DOMINGUEZ HOGAN DO Procedure: US OB anatomy Obstetrical Ultrasound for Fetus greater than 14 weeks HISTORY: anatomy assessment heart rate is 135 bpm. The fetus is in cephalic presentation. The longitudinal lie The placenta is in a anterior fundalposition with normal appearance. Amniotic fluid index subjectively normal. The cervix has a length of 4.1cm. The estimated weight is 295 g. with percentile 10.9%. The ovaries are not visualized. No fluid identified in the cul-de-sac. Following anatomy identifiedwithout ventricles, cerebellum, posterior fossa, nose and lips, orbits, four-chamber heart, right ventricular outflow track and left ventricular outflow track, diaphragm, stomach, kidneys, abdominal CORD insertion, bladder, umbilical arteries, three-vessel cord, spine, and extremities. The biparietal diameter measures 4.5cm consistent with 19 weeks 5 days. Head circumference measures 16.7cm consistent with 19 weeks 3 days. Abdominal circumference measures 14.5cm consistent with 19 weeks 6 days. Femur length is 3.0cm consistent with 19 weeks 1 day. The average gestational age is 19 weeks 4 days. Estimated due date is 10/17/2024. somatic motion identified. US/US OB anatomy IMPRESSION: Single live intrauterine gestation 19 weeks 4 days. Adequate visualization of anatomy as above. Impression dictated by: Vijay Castaneda M.D.05/27/2024 3:59 PM Dictation Location: [facility] Electronically authenticated by: [id number] Y Date: 05/27/2024 15:59
--- NOTE | 2024-05-27 14:24 | US_ITS ---
The [address] [address] Patient Name: JORDIN TYLER MRN: [id number] date: 2005 Sex: F Assigned Patient Location: US Current Patient Location: Accession/Order Number: [id number] Exam Date: 05/27/2024 15:54 Report Date: 05/27/2024 15:54 At the request of: DOMINGUEZ HOGAN DO Procedure: US OB cervical length Ultrasound to assess for cervical length Cervical length 4.1 cm. This the cervix is closed. US/US OB cervical length IMPRESSION: 4.1 cm cervical length Impression dictated by: Vijay Castaneda M.D.05/27/2024 3:54 PM Dictation Location: [place] [address] Electronically authenticated by: [id number] Y Date: 05/27/2024 15:54
== END 2024-05-27 14:20 | disposition home or self-care (01) ==
LOC: US 14:20
PROVIDERS: Visit Provider Obstetrics & Gynecology
DX: Z36.89 Encounter for other specified antenatal screening (principal); Z3A.19 19 weeks gestation of pregnancy
CPT/HCPCS: 76805; 76817

== ENCOUNTER 2024-06-04 02:56 | Observation (INO) | payer MEDICAID, SELFPAY ==
[2024-06-04 03:15] VITALS: PULSE 67
[2024-06-04 03:32] LABS: Bilirubin Urine NEGATIVE (NEGATIVE); Blood Urine NEGATIVE (NEGATIVE); Clarity Urine CLEAR (CLEAR); Color Urine YELLOW (YELLOW); Glucose Urine UA NEGATIVE (NEGATIVE); Ketones Urine NEGATIVE (NEGATIVE); Leukocyte Esterase Urine TRACE (NEGATIVE); Nitrite Urine NEGATIVE (NEGATIVE); Protein Urine NEGATIVE (NEG/TRACE); Specific Gravity Urine 1.025 (1.005-1.025); Urobilinogen Urine 0.2 EU/dL (0.2-1.0)
[2024-06-04 03:34] LABS: Urine Microscopic Indicated YES
[2024-06-04 03:43] LABS: Bacteria Urine SMALL #/HPF (NONE SEEN); Cast Seen? NONE SEEN #/LPF (NONE SEEN); Crystals Seen? None Seen #/HPF (None Seen); Mucus Urine NONE SEEN (NONE SEEN); RBC Urine NONE SEEN #/HPF (0-2); Squamous Epithelial Cell Urine FEW #/LPF (NONE/RARE); Urine Culture Indicated YES-LC
[2024-06-04] MEDS: 0.9 % SODIUM CHLORIDE 1,000 ML 999 ML IV (04:18)
[2024-06-04 04:32] LABS: Basophils Percent Auto 0.4 % (0.2-2.0); Eosinophils Absolute Auto 0.2 10^3/uL (0.0-0.7); Eosinophils Percent Auto 2.3 % (0.9-7.0); Hematocrit 28.4 % (36.0-48.0); Hemoglobin 9.7 g/dL (12.0-16.0); Immature Granulocytes Abs Auto 0.03 10^3/uL (0.00-0.03); Immature Granulocytes Pct Auto 0.4 % (0.0-0.5); Lymphocytes Absolute Auto 2.7 10^3/uL (1.2-3.8); Lymphocytes Percent Auto 34.8 % (20.5-60.0); Mean Corpuscular HGB Conc 34.2 g/dL (29.9-35.2); Mean Corpuscular Hemoglobin 28.1 pg (26.7-34.0); Mean Corpuscular Volume 82.3 fL (81.0-99.0); Mean Platelet Volume 11.1 fL (9.5-13.5); Monocytes Absolute Auto 0.6 10^3/uL (0.3-0.8); Monocytes Percent Auto 8.2 % (1.7-12.0); Neutrophils Absolute Auto 4.1 10^3/uL (1.4-6.5); Neutrophils Percent Auto 53.9 % (43.0-75.0); Platelet Count 235 10^3/uL (150-450); Red Blood Count 3.45 10^6/uL (4.20-5.40); Red Cell Distribution Width 15.8 % (11.0-15.0); White Blood Count 7.7 10^3/uL (4.0-11.0)
[2024-06-04] MEDS: ACETAMINOPHEN 500 MG TABLET 1000 MG PO ×2 (04:46→15:12)
[2024-06-04 04:48] LABS: Alanine Aminotransferase 16 U/L (14-59); Albumin Globulin Ratio 0.7; Albumin Level 2.6 g/dL (3.4-5.0); Alkaline Phosphatase 78 U/L (46-116); Amylase 51 U/L (25-115); Anion Gap 14.1; Aspartate Amino Transferase 15 U/L (15-37); BUN Creatinine Ratio 8.9; Bilirubin Total 0.2 mg/dL (0.2-1.0); Calcium 8.4 mg/dL (8.5-10.1); Carbon Dioxide 25.3 mmol/L (21.0-32.0); Chloride 103 mmol/L (98-107); Estimated GFR (African America >60 (>=60 mL/min/1.73m^2); Estimated GFR (Non-African Ame >60 (>=60 mL/min/1.73m^2); Globulin 3.7 g/dL; Glucose 86 mg/dL (74-106); Potassium 3.4 mmol/L (3.5-5.1); Sodium 139 mmol/L (136-145); Total Protein 6.3 g/dL (6.4-8.2)
[2024-06-04] MEDS: 0.9 % SODIUM CHLORIDE 1,000 ML 125 ML IV ×2 (05:20→15:15)
--- NOTE | 2024-06-04 06:47 | PC.NURSE ---
0300- Pt arrives to [facility] at this time c/o lower left abdomen quadrant pain that started 06/03/2024 at 0700. Pt states the pain is 7/10. Pt abdomen soft to palpation. Pt states the pain is constant and sharp. Pt denies N/V. Pt having BM's regularly. Pt denies urinary s/s. Pt denies abdominal tightness and or cxt's. RN obtains Doppler FHR tones; FHR ranges from 130-140 bpm with audible movement. Pt reports feeling movement. Pt states she has recently been prescribed inhaler and ATB for Bronchitis 2 weeks ago. Pt lungs clear; no cough or nasal stuffiness noted. Allergies verified. Pt not currently taking medications. Pt reports being anemic. Pt anatomy scan completed last week; growth measures small for GA. Pt given gown and urine specimen cup for sample. Urine yellow, cloudy. Pt reports being well hydrated.
--- NOTE | 2024-06-04 07:28 | W.PC.ACHO ---
Registration Status: ADM JUAN MANUEL Primary Language: Preferred Language: Report given to Rosemarie ISRAEL at 0705. Care relinquished. Active Medications Generic Name Dose Route Start Last Admin Trade Name Freq PRN Reason Stop Dose Admin Acetaminophen 1,000 mg 06/04/24 03:51 06/04/24 04:46 Acetaminophen 500 Mg Tablet PO 1,000 mg Q4H PRN Administration Pain Sodium Chloride 1,000 mls @ 125 mls/hr 06/04/24 04:00 06/04/24 05:20 Sodium Chloride 0.9% 1,000 Ml IV 125 mls/hr .Q8H IZABELA Administration IV Insertion/Site Date of IV Line Insertion [ 06/04/24 Short PIV (<1.75 in) 20g left Hand] IV Insertion Time [Short PIV ( 04:08 <1.75 in) 20g left Hand]
--- NOTE | 2024-06-04 07:34 | PC.NURSE ---
0530- Pt resting eyes closed with blankets over head. IV fluids per order at this time. IV site WNLs.
[2024-06-04 08:05] VITALS: BP 115/82; PULSE 73; TEMP 36.7
[2024-06-04] MEDS: NALBUPHINE HCL 10 MG/ML AMPULE IV (09:31)
[2024-06-04 12:52] VITALS: BP 103/42; PULSE 60
[2024-06-04 13:20] VITALS: BP 108/57; PULSE 63; TEMP 36.4; O2SAT 99
[2024-06-04] MEDS: PROMETHAZINE HCL 12.5 MG in 0.9 % SODIUM CHLORIDE 50 ML 202 MG IV (13:28)
[2024-06-04 15:04] VITALS: BP 105/58; PULSE 71; TEMP 36.8; O2SAT 99
[2024-06-04 16:26] VITALS: BMI 27.3
[2024-06-04] MEDS: POLYETHYLENE GLYCOL 3350 17 GM POWDER PACKET PO (16:53)
== END 2024-06-04 19:38 | disposition home or self-care (01) ==
LOC: FBC 02:57 → MS 13:29
PROVIDERS: Admitting Provider Obstetrics & Gynecology; Visit Provider Obstetrics & Gynecology
DX: O26.892 Other specified pregnancy related conditions, second trimester (principal); R10.32 Left lower quadrant pain; Z3A.21 21 weeks gestation of pregnancy
CPT/HCPCS: 36415; 59025; 74176; 80053; 81001; 82150; 82565; 83690; 85025; 87086; 96365; 96375; G0378; G0379; J2300; J2550

== ENCOUNTER 2024-07-04 08:26 | Outpatient (OUT) | payer MEDICAID, SELFPAY ==
--- NOTE | 2024-07-04 08:30 | US_ITS ---
The [address] [address] Patient Name: JORDIN TYLER MRN: [facility]:[id number] date: 2005 Sex: F Assigned Patient Location: Current Patient Location: US Accession/Order Number: [id number] Exam Date: 07/04/2024 09:40 Report Date: 07/04/2024 09:47 At the request of: DOMINGUEZ HOGAN DO Procedure: US OB growth ULTRASOUND OB GROWTH COMPARISON: 05/27/2024 CLINICAL DATA: Small for gestational age. There is a single live anterior gestation in cephalic presentation. There is cardiac and somatic activity with heart rate of 137 bpm. The amniotic fluid index measures 12.3 cm which is in low-normal range. The placenta is anterior and fundal. The following measurements were obtained: Biparietal diameter 6.1 cm 24 weeks 6 days 16% Head circumference 2.8 cm 24 weeks 6 days 7% Abdominal circumference 19.6 cm 24 weeks 2 days 8% Femur length 4.3 cm 24 weeks 0 days 4% The composite ultrasound age based on these measurements is 24 weeks 4 days +/- 1 week 5 days. The estimated date of delivery is 10/20/2024. The estimated date of delivery at the time of the comparison was 10/17/2024. US/US OB growth IMPRESSION: SINGLE LIVE INTRAUTERINE GESTATION WITH ULTRASOUND AGE OF 24 WEEKS 4 DAYS. Impression dictated by: Tavia Roe M.D. 07/04/2024 9:47 AM Dictation Location: [place] [address] Electronically authenticated by: [id number] Y Date: 07/04/2024 09:47
--- OUTSIDE RECORDS SUMMARY | 2024-07-04 08:36 | XMS_ITS | CCD ---
Author Organization [facility] Care Team Providers Care Senior Automation Engineer Name Role Phone WAN VASQUEZ Consulting Unavailable JUANCHO, DR RUIZ Primary Care Unavailable KUNAL FRANK Attending Unavailable KUNAL FRANK Admitting Unavailable CY HERNANDEZ Consulting Unavailable KUNAL FRANK Consulting Unavailable NONE, XXXX Primary Care Physician Holli Garvin Primary Care Physician Vijay PACHECO Primary Care Physician Kourtney PIERCE Unavailable [facility], [facility] Primary Care Physician Eamon Stahllocatmeseret, Noms [...] Unavaila DO Magalis Acevedo Admitting Unavaila ble Aleshalocatmeseret CASE, Noms Provider Primary Care Provi nani John Paul Lovell MD Primary Care Provider [phone] Wil Rider MD Attending Provider [phone] Wil iRder Attending Unavailab Wil Loco Admitting Unavailab John Paul Duncan Primary Care Unavailable Sadie Thomas MD Primary Care Provider Mak Jordan NP Unavailable [phone] Eduardo WRAY Attending Unavailable JERRY WILSON Attending Unavailable JERRY WILSON Attending Unavailable JERRY WILSON Attending Unavailable MAGALIS SNOW Attending Unavailable MAGALIS SNOW Attending Unavailable MAK JORDAN Attending Unavailable Allergies Allergy Classification Reported Allergen(s) Allergy Type Date of Onset Reaction(s) Facility (7 sources) No Known Medication Allergies; Translations: [No Known Medication Allergies] Propensity to adverse reactions (disorder) [facility] (3 sources) Amoxicillin; Translations: [amoxicillin] Drug Allergy Unknown (qualifier value) [facility] Medications Current Medications Medication Drug Class(es) Dates Sig (Normalized) Sig (Original) acetaminophen 325 mg oral tablet (3 sources) Start: 09-11-2023 take 3 tablets by mouth every eight hours as needed for headache acetaminophen 325 mg Tab 975 mg = 3 tab(s), Oral, q8hr, PRN Headache, # 90 tab(s), Refills(s) 1, Pharmacy: [facility], 165.1, cm, 09/10/23 21:47:00 EDT, Height/Length Dosing, 84.5, kg, 09/10/23 21:47:00 EDT, Weight Dosing Start Date: 09/11/23 Status: Ordered amoxicillin 875 mg / clavulanate 125 mg oral tablet (1 source) Penicillin-class Antibacterial Start: 10-30-2022 End: 11-09-2022 Augmentin 875 mg-125 mg Tab 1 tab(s), Oral, q12hr for 10 day(s), 20 tab(s), Refill(s) 0, [facility]/pharmacy #[id number], 165.1, cm, 10/30/22 10:55:00 EDT, Height/Length [...] oral solution (1 source) alpha-Adrenergic Agonist, Uncompetitive E-pgaizv-G-asparta te Receptor Antagonist, Sigma-1 Agonist Start: 01-01-2023 End: 01-08-2023 take 5 mL by mouth every six hours brompheniramine/de xtromethorphan/PSE 2 mg-10 mg-30 mg/5 mL oral syrup 5 mL, Oral, q6hr for cold symptoms for 7 day(s), 140 mL, Refill(s) 0, [facility]/pharmacy #[id number], 165, cm, 01/01/23 15:53:00 EST, Height/Length [...] day(s), # 14 cap(s), Refills(s) 0, Pharmacy: [facility] #[id number], 165, cm, 01/05/22 7:56:00 EST, Height/Length Dosing, 74.1, kg, 01/05/22 7:56:00 EST, Weight Dosing Start Date: 01/05/22 Stop Date: 01/12/22 Status: Ordered docusate sodium 100 mg oral capsule (3 sources) Start: 09-11-2023 take 1 capsule by mouth twice daily docusate sodium 100 mg Cap 100 mg = 1 cap(s), Oral, BID, # 30 cap(s), Refills(s) 1, Pharmacy: [facility], 165.1, cm, 09/10/23 21:47:00 EDT, Height/Length Dosing, 84.5, kg, 09/10/23 21:47:00 EDT, Weight Dosing Start Date: 09/11/23 Status: Ordered ferrous sulfate 325 mg oral tablet (10 sources) Start: 09-11-2023 ferrous sulfate 325 mg Tab 325 mg = 1 tab(s), Oral, BIDWM, # 60 tab(s), Refills(s) 5, Pharmacy: [facility], 165.1, cm, 09/10/23 21:47:00 EDT, Height/Length Dosing, 84.5, kg, 09/10/23 21:47:00 EDT, Weight Dosing Start Date: 09/11/23 Status: Ordered Start: 06-09-2021 take 1 tablet by leslie th once daily Slow Fe (as elemental iron) 45 mg oral tablet, extended release 45 mg = 1 tab(s), Oral, Daily, # 30 tab(s), Refills(s) 1, Pharmacy: [facility]/pharmacy #[id number], 165.1, cm, 06/07/21 7:55:00 EDT, Height/Length Dosing, 83.6, kg, 06/07/21 7:55:00 EDT, Weight Dosing Start Date: 06/09/21 Status: Ordered ibuprofen 600 mg oral tablet (20 sources) Nonsteroidal Anti-inflammatory Drug Start: 09-11-2023 take 1 tablet by mouth every six hours as needed ibuprofen 600 mg Tab 600 mg = 1 tab(s), Oral, q6hr, PRN Other (see comment), # 60 tab(s), Refills(s) 1, Pharmacy: [facility], 165.1, cm, 09/10/23 21:47:00 EDT, Height/Length Dosing, 84.5, kg, 09/10/23 21:47:00 EDT, Weight Dosing Start Date: 09/11/23 Status: Ordered Start: 08-09-2022 take 1 tablet by leslie th every six hours ibuprofen 600 mg Tab 600 mg = 1 tab(s), Oral, q6hr, # 40 tab(s), Refills(s) 0, Pharmacy: [facility] #[id number], 165.1, cm, 08/07/22 17:54:00 EDT, Height/Length Dosing, 84.5, kg, 08/07/22 17:54:00 EDT, Weight Dosing Start Date: 08/09/22 Status: Ordered Start: 06-09-2021 take 1 tablet by leslie th every six hours ibuprofen 600 mg Tab 600 mg = 1 tab(s), Oral, q6hr, # 15 tab(s), Refills(s) 0, Pharmacy: [facility] #[id number], 165.1, cm, 06/07/21 7:55:00 EDT, Height/Length Dosing, 83.6, kg, 06/07/21 7:55:00 EDT, Weight Dosing Start Date: 06/09/21 Status: Ordered Start: 01-28-2020 take 1 tablet by leslie th every eight hours ibuprofen 600 mg Tab 600 mg = 1 tab(s), Oral, q8hr, # 42 tab(s), Refills(s) 1, Pharmacy: [facility] #[id number], 169, cm, 01/27/20 13:57:00 EST, Height/Length Dosing, 70.9, kg, 01/27/20 13:57:00 EST, Weight Dosing Start Date: 01/28/20 Status: Ordered naproxen 500 mg oral tablet (9 sources) Nonsteroidal Anti-inflammatory Drug Start: 09-14-2021 take 1 tablet by mouth twice daily as needed for pain Naprosyn 500 mg Tab 500 mg = 1 tab(s), Oral, BID, PRN Pain, # 20 tab(s), Refills(s) 0, Pharmacy: [facility]/pharmacy #[id number], 165, cm, 10/16/21 20:16:00 EDT, Height/Length [...] day(s), # 10 cap(s), Refills(s) 0, [id number], [facility], cm, 02/13/23 14:25:00 EST, Height/Length Dosing, 69.5, kg, 02/13/23 14:25:00 EST, Weight Dosing Start Date: 02/13/23 Stop Date: 02/18/23 Status: Ordered penicillin v potassium 500 mg oral tablet (5 sources) Start: 10-16-2021 take 1 tablet by mouth every six hours penicillin V potassium 500 mg Tab 500 mg = 1 tab(s), Oral, q6hr, # 28 tab(s), Refills(s) 0, [id number], 165, cm, 10/16/21 20:16:00 EDT, Height/Length [...] 30 tab(s), Refills(s) 0, Pharmacy: [facility]/pharmacy #[id number], 165.1, cm, 06/07/21 7:55:00 EDT, Height/Length Dosing, 83.6, kg, 06/07/21 7:55:00 EDT, Weight Dosing Start Date: 09/14/21 Stop Date: 09/24/21 Status: Ordered polysaccharide iron complex 391 mg oral capsule (7 sources) Start: 06-16-2024 take 1 capsule by mouth once daily iron polysaccharide 180 mg (as elemental iron) oral capsule 180 mg = 1 cap(s), Oral, Daily, # 30 cap(s), Refills(s) 0, Pharmacy: [facility], 165.1, cm, 09/10/23 21:47:00 EDT, Height/Length Dosing, 84.5, kg, 09/10/23 21:47:00 EDT, Weight Dosing Start Date: 06/16/24 Status: Ordered Quantity: 30.0 Unit: cap(s) Repeat number: 1 Start: 06-05-2024 End: 07-05-2024 take 1 capsule by mouth once daily iron polysaccharides (ProFe) 391.3 (180 Fe) MG capsule Indications: H/O: iron deficiency anemia Take 1 capsule (391.3 mg) by mouth Daily 30 capsule 6 06/05/2024 07/05/2024 Active Vit-Fe Fumarate-FA ( Vitamins) 28-0.8 MG tablet (14 sources) Start: 05-09-2024 End: 05-09-2025 take 1 tablet [...] day(s), # 30 supp, Refills(s) 0, Pharmacy: [facility] #[id number], 165, cm, 02/13/23 14:25:00 EST, Height/Length Dosing, 69.5, kg, 02/13/23 14:25:00 EST, Weight Dosing Start Date: 02/13/23 Stop Date: 02/18/23 Status: Ordered Start: 01-23-2023 take 25 mg rectal ro [place] every six hours as needed for nausea promethazine 25 mg Supp 25 mg = 1 supp, Rectal, q6hr, PRN for nausea/vomiting, # 12 supp, Refills(s) 0 Start Date: 01/23/23 Status: Ordered Start: 01-05-2022 take 1 tablet by leslie th three times daily promethazine 25 mg Tab 25 mg = 1 tab(s), Oral, TID, # 15 tab(s), Refills(s) 0, Pharmacy: [facility] #[id number], 165, cm, 01/05/22 7:56:00 EST, Height/Length Dosing, 74.1, kg, 01/05/22 7:56:00 EST, Weight Dosing Start Date: 01/05/22 Status: Ordered Zofran ODT 4 mg Tab-Dis (14 sources) Start: 02-13-2023 End: 02-15-2023 take 1 tablet by mouth every eight hours Zofran ODT 4 mg Tab-Dis 4 mg = 1 tab(s), Oral, q8hr, X 2 day(s), # 6 tab(s), Refills(s) 0, Pharmacy: [facility]/pharmacy #[id number], 165, cm, 02/13/23 14:25:00 EST, Height/Length [...] Nausea/Vomiting, # 20 tab(s), Refills(s) 0, Pharmacy: [facility] #[id number], 165.1, cm, 01/18/22 1:14:00 EST, Height/Length Dosing, 74.4, kg, 01/18/22 1:14:00 EST, Weight Dosing Start Date: 01/18/22 Status: Ordered Completed/Discontinued Medications Medication Drug Class(es) Dates Sig (Normalized) Sig (Original) [id number] 200 actuat albuterol 0.09 mg/actuat metered dose inhaler (20 sources) beta2-Adrenergic Agonist Start: 05-22-2024 End: 05-22-2025 take 2 puff(s) by inhalation every four hours for wheezing albuterol (ProAir RespiClick) 90 mcg/act breath-activated inhaler Indications: Wheezing Inhale 2 puffs every 4 (four) hours if needed for wheezing 1 each 1 05/22/2024 05/22/2025 Active Start: 10-16-2023 End: 05-30-2025 take 2 puff(s) by inhalation every four hours for wheezing albuterol HFA (ProAir HFA) 90 mcg/act inhaler Indications: Wheezing , COVID-19 Inhale 2 puffs every 4 (four) hours if needed for wheezing 18 g 11 05/30/2024 06/24/2024 Discontinued albuterol HFA 90 mcg/inh MDI (8 sources) Start: 08-17-2020 take 1 dose by inhalation every four hours albuterol HFA 90 mcg/inh MDI 2 puff(s), Inhalation, q4hr Shortness of breath or wheezing, 1 EA, Refill(s) 0, [facility] #[id number], 168.2, cm, 08/17/20 15:12:00 EDT, Height/Length Dosing, 71.8, kg, 08/17/20 15:12:00 EDT, Weight Dosing Start Date: 08/17/20 Status: Ordered azithromycin 250 mg oral tablet (12 sources) Macrolide Antimicrobial Start: 05-30-2024 End: 06-24-2024 azithromycin (Zithromax Z-Ramiro) 250 MG tablet Indications: Wheezing As directed 6 tablet 05/30/2024 06/24/2024 Discontinued Start: 05-22-2024 azithromycin ( Zithromax Z-Ramiro) 250 MG tablet Indications: Wheezing As directed 6 tablet 05/22/2024 Active metoclopramide 10 mg oral tablet (16 sources) Dopamine-2 Receptor Antagonist Start: 06-09-2024 End: 07-09-2024 metoclopramide (Reglan) 10 MG tablet Indications: Nausea and vomiting, unspecified vomiting type Take 1 tablet (10 mg) by mouth in the morning and 1 tablet (10 mg) at noon and 1 tablet (10 mg) in the evening. Take before meals. Take 1 tablet by mouth 30 minutes prior to meals 3 times daily as needed for nausea. 90 tablet 3 06/09/2024 06/24/2024 Discontinued Start: 01-26-2023 End: 02-02-2023 take 1 tablet [...] day(s), # 28 tab(s), Refills(s) 0, Pharmacy: [facility] #[id number], 165, cm, 10/16/21 20:16:00 EDT, Height/Length Dosing, 75.2, kg, 01/02/22 12:43:00 EST, Weight Dosing Start Date: 01/02/22 Stop Date: 01/09/22 Status: Ordered Start: 10-26-2020 take 1 tablet by leslie th every six hours as needed for nausea Reglan 10 mg Tab 10 mg = 1 tab(s), Oral, q6hr, PRN Nausea, # 10 tab(s), Refills(s) 0, Pharmacy: [facility] #[id number], 168, cm, 10/26/20 13:25:00 EDT, Height/Length Dosing, 75, kg, 10/26/20 13:25:00 EDT, Weight Dosing Start Date: 10/26/20 Status: Ordered ondansetron 4 mg disintegrating oral tablet (14 sources) Serotonin-3 Receptor Antagonist Start: 06-06-2024 End: 07-06-2024 take 1 tablet by mouth every six hours as needed for nausea and vomiting and nausea and nausea ondansetron ODT (Zofran-ODT) 4 MG disintegrating tablet Indications: Nausea Take 1 tablet (4 mg) by mouth every 6 (six) hours if needed for nausea or vomiting 30 tablet 2 06/06/2024 06/24/2024 Discontinued Start: 10-26-2020 take 1 tablet by leslie every eight hours as needed for nausea ondansetron 8 mg Dis Tab 8 mg = 1 tab(s), Oral, q8hr, PRN Nausea/Vomiting, # 6 tab(s), Refills(s) 0, Pharmacy: [facility] #[id number], 168, cm, 10/26/20 13:25:00 EDT, Height/Length Dosing, 75, kg, 10/26/20 13:25:00 EDT, Weight Dosing Start Date: 10/26/20 Status: Ordered Start: 10-26-2020 take 1 tablet by leslie every eight hours as needed for nausea ondansetron 8 mg Dis Tab 8 mg = 1 tab(s), Oral, q8hr, PRN Nausea/Vomiting, # 6 tab(s), Refills(s) 0, Pharmacy: [facility] #[id number], 168, cm, 10/26/20 13:25:00 EDT, Height/Length Dosing, 75, kg, 10/26/20 13:25:00 EDT, Weight Dosing Start Date: 10/26/20 Status: Ordered Multivitamins with Folic Acid 1 mg Tab (13 sources) Start: 01-23-2023 take 1 tablet by mouth once daily Multivitamins with Folic Acid 1 mg Tab 1 tab(s), Oral, Daily, 30 tab(s), Refill(s) 0 Start Date: 01/23/23 Status: Ordered Quantity: 30.0 Unit: tab(s) Repeat number: 1 Start: 01-23-2023 take 1 tablet by leslie th once daily Multivitamins with Folic Acid 1 mg Tab 1 tab(s), Oral, Daily, 30 tab(s), Refill(s) 0 Start Date: 01/23/23 Status: Ordered Vit-Fe Fumarate-FA (M-Mickey Plus) 27-1 MG tablet (8 sources) Start: 01-24-2023 End: 10-16-2023 take 1 tablet by mouth in the morning Vit-Fe Fumarate-FA (M-Mickey Plus) [...] unspecified; Translations: [Threatened ] Onset: 11-01-2020 Episodic Immunizations and screening for infectious disease (2 sources) Exposure to sexually transmissible disorder; Translations: [Contact with and (suspected) exposure to infections with a predominantly sexual mode of transmission] 05-22-2024 Episodic Menstrual disorders (1 source) Missed period; Translations: [Irregular menstruation, unspecified] 05-08-2024 Chronic Mood disorders (2 sources) Bipolar disorder, most recent episode depression; Translations: [Bipolar disorder, unspecified] 10-16-2023 Chronic Other aftercare (2 sources) Patient encounter status; Translations: [Encounter for follow-up examination after completed treatment for conditions other than malignant neoplasm] 06-09-2024 Episodic Other complications of (1 source) Anemia in [...] Onset: 09-10-2023 Episodic Other infections; including parasitic (18 sources) Disorder due to infection 08-07-2022 Episodic Other lower respiratory disease (20 sources) Dyspnea; Translations: [Shortness of breath] 03-25-2019 Episodic Other lower respiratory disease (6 sources) Wheezing; Translations: [Wheezing] 10-16-2023 Episodic Other non-traumatic joint disorders (1 source) Pain in right knee; Translations: [Right knee pain] 04-01-2024 Episodic Other and delivery including normal (20 sources) Finding related to ; Translations: [Delivery normal] Onset: 06-09-2021 03-24-2021 Episodic Other screening for suspected conditions (not mental disorders or infectious disease) (8 sources) Procedure carried out on subject; Translations: [Encounter for screening, unspecified] Onset: 12-07-2022 Episodic Residual codes; unclassified (1 source) 8 weeks gestation of ; Translations: [8 WEEKS GESTATION OF ] Onset: 11-03-2020 Episodic Residual codes; unclassified (19 sources) Gestation period, 37 weeks; Translations: [37 weeks gestation of ] Onset: 08-09-2022 Episodic Residual codes; unclassified (2 sources) Gestation period, 12 weeks; Translations: [12 weeks gestation of ] 03-20-2023 Episodic Residual codes; unclassified (1 source) Gestation period, 39 weeks; Translations: [39 weeks gestation of ] Onset: 09-11-2023 Episodic Residual codes; unclassified (2 sources) Gestation period, 20 weeks; Translations: [20 weeks gestation of ] 05-22-2024 Episodic Residual codes; unclassified (2 sources) Gestation period, 24 weeks; Translations: [24 weeks gestation of ] 06-24-2024 Episodic Unclassified (4 sources) Age mother conceived [...] involving the immune mechanism] 10-16-2023 Episodic Other skin disorders (2 sources) Disorder [...] NEGATED: Highlighted row has been ruled out!Unclassified (17 sources) No known active problems 03-20-2023 Results Test Name Value Interpretation Reference Range Facility Urinalysis macro (dipstick) panel (U)on 06-24-2024 Bilirubin, UA Negative Negative - 4(70) +++ mg/dL [facility] Blood, UA Negative Negative - 50 Eliseo/mcL [facility] Clarity, UA Clear [facility] Color, UA Yellow [facility] Glucose, UA Negative Negative - 1999(110) ++++ mg/dL [facility] Interpretation and review of laboratory results Abnormal [facility] Ketones, UA Negative Negative - 160(16) ++++ mg/dL [facility] Leukocytes, UA Trace Negative - 500+++ Jeremias/mcL [facility] Nitrite, UA Negative Negative - Positive [facility] pH, UA 7.5 5 - 9 [facility] Protein, UA Negative Negative - 2000(20) ++++ mg/dL [facility] Spec Grav, UA 1.015 1 - 1.03 [facility] Urobilinogen, UA 0.2 0.2 - 12 mg/dL [facility] Documentson 06-20-2024 [facility] Documents [facility] Documents [facility] Nurse Visit 14 day Health Appraisal Date of Appraisal: _06/19/2024 Booked Date: _06/16/2024 Court or Release Date: RELEASE 07/16/2024 Did inmate come from another facility: NO PCP: NONE Specialist: DR STEVE HOLLOWAY [facility]: [facility] Have you ever had suicide attempts: YES If yes, when was your last attempt and how: NOV 23, 2023 OVERDOSE Are you currently under the care of a practitioner for any reason: YES If yes, please explain: AMIE FOR Date Receiving Screen Evaluation Form reviewed: 06/16/2024 Date Suicide Prevention Health Form reviewed: 06/16/2024 Has the sick call procedure has been explained: YES Does Inmate verbalize understanding: YES Do you or have you ever had any of the following: Recent Head Injury: NO Persistent Headaches: NO Vertigo/Dizziness/ Fainting: NO Stroke/TIA: NO Seizure Disorder: NO Eye/Vision Problems: NO Ear/Nose/Throat Problems: THROAT IS ALWAYS SWOLLEN, I WAS SUPPOSED TO GET MY TONSILS TAKEN OUT Dental Problems: BROKEN, DECAYED Problems Breathing/ Asthma: ASTHMA Genitourinary Problems: NO Diabetes: NO Gastrointestinal Issues: NO High/Low Blood Pressure: RUNS LOW Heart Problems: NO Recent Broken Bones or deformities: NO Arthritis/ Joint Mobility Issues or Deformities: TORN LIGAMENT IN KNEE LIKE 1-2 MONTHS AGO, SUPPOSED TO WEAR A BRACE, BE ON CRUTCHES, AND HAVE PHYSICAL THERAPY. I ASKED WHICH ORTHO DOCTOR SHE SAW AND SHE SAID SHE NEVER FOLLOWED UP WITH ANYONE SHE ONLY WENT TO URGENT CARE IN [place]. I EXPLAINED THAT URGENT CARE WOULDN'T ORDER PHYSICAL THERAPY, THAT WOULD COME FROM AN ORTHO DOCTOR Back/Neck Problems: _ MY BACK IS ALL MESSED UP FROM HAVING 3 EPIDURALS Skin Problems, Rashes, Open Wounds: NO STDs (recent, past, or present): NO Hepatitis Positive: NO HIV Positive: NO Bleeding/Other Blood Disorder: ANEMIA Body Infestation (Lice, Crabs, Scabies, Etc): NO FEMALES ONLY LMP: FEB 06, 2024 Complications: Month/Year of last Gynecological Exam: May 2024 Month/Year of Last Mammogram:NEVER Previous Gynecological Surgeries/Procedures : NONE Month/Year: Complications: Current Control Use: NONE If yes, type/length of use: Are you currently : YES If yes, UPT Results: She is 22 weeks If , are you planning on : YES If Yes, for how long: Unsure Para: 3 : 4 Previous Complications (if applicable): 1 CHILD WAS BORN PREMATURE Personal or Family Hx of Gynecological Problems: YES MY DAD, UNCLE, EVERYONE HAS CERVICAL CANCER I THEN EXPLAINED TO HER THAT MEN CANNOT HAVE CERVICAL CANCER. SHE THEN SAID WELL EVERYONE IN MY FAMILY HAS SOME KIND OF CANCER Relationship: Diagnosis: Year: Do you have a history of: Violence towards others: NO Being victimized: NO Being sexually assaulted: NO Sexually assaulting others: NO Is this person obviously a higher risk for victimization or assault: NO How does the patient identify him/herself in terms of gender: FEMALE SKIN: WARM, DRY, INTACT Skin Color: NORMAL FOR ETHNICITY Turgor: WNL Bruises: NO Wound/Lesions: NO Rash: NO Jaundice: NO Edema: NO Clarify and describe: _ Is Physical Therapy needed: SHE HAS AN EVEN STEADY GAIT AND THIS IS THE FIRST COMPLAINT OF A TORN LIGAMENT SINCE HER ARRIVAL AND NEVER MENTIONED IT UPON BOOKING CARDIOVASCULAR: _ Arrhythmia: NO Chest Pain: NO Clarify yes response: _ RESPIRATORY: EVEN, UNLABORED Dyspnea: NO Cough: NO Clarify yes response: _ [Mental Status Exam] TB Skin Test Have you ever had tuberculosis: NO Have you ever had a positive TB skin test: NO PPD given on: Location given: _ forearm Date vial opened: _ Lot number: _ Expiration date: _ PPD Comments: NO S/S AT THIS TIME Inmate states they have had the following Immunizations: VACCINATED A CHILD Hep A: _ Hep B: _ DTAP: _ HIB: _ IPV: _ MMR: _ Varivax: _ HPV: _ Influenza: _ PneumoPCV: _ PPSV23: _ Inmate tested positive for the following drugs: Marijuana (THC): _ Have you ever had seizures or other symptoms of withdrawal after stopping the use of alcohol/drugs? _NO Do you wish to attend AA Meetings? NO [facility] Assessment 06/19/24 15:01:00 [facility] Assessment Entered On: 06/19/2024 15:04 EDT Performed On: 06/19/2024 15:01 EDT by Valentine Flores RN Covid-19, MERS, Ebola Screen *Contact With Person With Highly Contagious Disease Like Ebola/MERS/COVID-19 AND Have One or More of the Symptoms Below : No *Travel to a Country With Wide-Spread Ebola/MERS/COVID-19 in the Past 21 Days AND Have One or More of the Symptoms Below : No Patient Reported Covid-19 Testing : No *Verify Droplet, Contact Precautions for Ebola (Reference for CDC) : N/A *Verify Airborne, Droplet Precautions for MERS/COVID-19 : N/A Valentine Flores RN - 06/19/2024 15:01 EDT Summary Chief Complaint : Health appraisal Preferred Lab : [facility] (more content not included)... [facility] UA (CLEAN/CATCH) ASH HANDLER/BRAN RO IF IND.on 06-04-2024 BILIRUBIN URINE Negative NEGATIVE [facility] BLOOD URINE Negative NEGATIVE [facility] Clarity (U) CLEAR CLEAR [facility] Color (U) YELLOW YELLOW [facility] GLUCOSE URINE UA Negative NEGATIVE mg/dL [facility] Interpretation and review of laboratory results Abnormal [facility] Ketones Ql (U) Negative NEGATIVE mg/dL [facility] Leukocyte esterase Test strip Ql (U) TRACE Abnormal NEGATIVE [facility] NITRITE URINE Negative NEGATIVE [facility] pH (U) 6.0 [pH] 5.0 - 9.0 [facility] PROTEIN URINE Negative NEG/TRACE mg/dL [facility] SPECIFIC GRAVITY URINE 1.025 1.005 - 1.025 [facility] URINE MICROSCOPIC INDICATED YES [facility] UROBILINOGEN URINE 0.2 EU/dL 0.2 - 1.0 EU/dL [facility] US OB ANATOMYon 05-27-2024 [place] [address] Ultrasound Report Signed Patient: JORDIN TYLER MR#: [id number] : 2005 Acct:[id number] Age/Sex: 19 / F ADM Date: 05/27/24 Loc: US Attending Dr: Jerry Wilson D.O. Ordering Physician: Jerry Wilson D.O. Date of Service: 05/27/24 Procedure(s): US OB anatomy Accession Number(s): [id number] cc: Jerry Wilson D.O.; Physician,Non-Staff [place] [id number] Patient Name: JORDIN TYLER MRN: [facility]:[id number] date: 2005 Sex: F Assigned Patient Location: Current Patient Location: Accession/Order Number: [id number] Exam Date: 05/27/2024 15:55 Report Date: 05/27/2024 15:59 At the request of: JERRY WILSON DO Procedure: US OB anatomy Obstetrical Ultrasound for Fetus greater than 14 weeks HISTORY: anatomy assessment heart rate is 135 bpm. The fetus is in cephalic presentation. The longitudinal lie The placenta is in a anterior fundalposition with normal appearance. Amniotic fluid index subjectively normal. The cervix has a length of 4.1cm. The estimated weight is 295 g. with percentile 10.9%. The ovaries are not visualized. No fluid identified in the cul-de-sac. Following anatomy identifiedwithout ventricles, cerebellum, posterior fossa, nose and lips, orbits, four-chamber heart, right ventricular outflow track and left ventricular outflow track, diaphragm, stomach, kidneys, abdominal CORD insertion, bladder, umbilical arteries, three-vessel cord, spine, and extremities. The biparietal diameter measures 4.5cm consistent with 19 weeks 5 days. Head circumference measures 16.7cm consistent with 19 weeks 3 days. Abdominal circumference measures 14.5cm consistent with 19 weeks 6 days. Femur length is 3.0cm consistent with 19 weeks 1 day. The average gestational age is 19 weeks 4 days. Estimated due date is 10/17/2024. somatic motion identified. US/US OB anatomy IMPRESSION: Single live intrauterine gestation 19 weeks 4 days. Adequate visualization of anatomy as above. Impression dictated by: Vijay Castaneda M.D.05/27/2024 3:59 PM Dictation Location: [place] [address] Electronically authenticated by: [id number] Y Date: 05/27/2024 15:59 Dictated By: Vijay Castaneda D.O. Signed By: 05/27/24 160 DD/ 1520 TD/TT: Candy Bar Attendant: [facility] Radiology, Radiologist, - 05/27/2024 [place] [address] Ultrasound Report Signed Patient: JORDIN TYLER MR#: [id number] : 2005 Acct:[id number] Age/Sex: 19 / F ADM Date: 05/27/24 Loc: US Attending Dr: Jerry Wilson D.O. Ordering Physician: Jerry Wilson D.O. Date of Service: 05/27/24 Procedure(s): US OB anatomy Accession Number(s): [id number] cc: Jerry Wilson D.O.; Physician,Non-Staff MArleth [place] [id number] Patient Name: JORDIN TYLER MRN: [facility]:[id number] date: 2005 Sex: F Assigned Patient Location: US Current Patient Location: US Accession/Order Number: [id number] Exam Date: 05/27/2024 15:55 Report Date: 05/27/2024 15:59 At the request of: JERRY WILSON DO Procedure: US OB anatomy Obstetrical Ultrasound for Fetus greater than 14 weeks HISTORY: anatomy assessment heart rate is 135 bpm. The fetus is in cephalic presentation. The longitudinal lie The placenta is in a anterior fundalposition with normal appearance. Amniotic fluid index subjectively normal. The cervix has a length of 4.1cm. The estimated weight is 295 g. with percentile 10.9%. The ovaries are not visualized. No fluid identified in the cul-de-sac. Following anatomy identifiedwithout ventricles, cerebellum, posterior fossa, nose and lips, orbits, four-chamber heart, right ventricular outflow track and left ventricular outflow track, diaphragm, stomach, kidneys, abdominal CORD insertion, bladder, umbilical arteries, three-vessel cord, spine, and extremities. The biparietal diameter measures 4.5cm consistent with 19 weeks 5 days. Head circumference measures 16.7cm consistent with 19 weeks 3 days. Abdominal circumference measures 14.5cm consistent with 19 weeks 6 days. Femur length is 3.0cm consistent with 19 weeks 1 day. The average gestational age is 19 weeks 4 days. Estimated due date is 10/17/2024. somatic motion identified. US/US OB anatomy IMPRESSION: Single live intrauterine gestation 19 weeks 4 days. Adequate visualization of anatomy as above. Impression dictated by: Vijay Castaneda M.D.05/27/2024 3:59 PM Dictation Location: [place] [address] Electronically authenticated by: [id number] Y Date: 05/27/2024 15:59 Dictated By: Vijay Castaneda D.O. Signed By: 05/27/24 1600 DD/ 1559 TD/TT: Candy Bar Attendant: [facility] Radiology Study observation (narrative) [facility] US OB ANATOMYOrdered By: Abrahan iologthierno Radiology on 05-27-2024 [facility] Work Phone: US OB CERVICAL LENGTHon 05-07 [place] [address] Ultrasound Report Signed Patient: JORDIN TYLER MR#: [id number] : 2005 Acct:[id number] Age/Sex: 19 / F ADM Date: 05/27/24 Loc: US Attending Dr: Jerry Wilson D.O. Ordering Physician: Jerry Wilson D.O. Date of Service: 05/27/24 Procedure(s): US OB cervical length Accession Number(s): [id number] cc: eJrry Wilson D.O.; Physician,Non-Staff M.Melba [facility] [place] [id number] Patient Name: JORDIN TYLER MRN: [facility]:[id number] date: 2005 Sex: F Assigned Patient Location: US Current Patient Location: US Accession/Order Number: [id number] Exam Date: 05/27/2024 15:54 Report Date: 05/27/2024 15:54 At the request of: JERRY WILSON DO Procedure: US OB cervical length Ultrasound to assess for cervical length Cervical length 4.1 cm. This the cervix is closed. US/US OB cervical length IMPRESSION: 4.1 cm cervical length Impression dictated by: Vijay Castaneda M.D.05/27/2024 3:54 PM Dictation Location: [facility] Electronically authenticated by: [id number] Y Date: 05/27/2024 15:54 Dictated By: Vijay Castaneda D.O. Signed By: 05/27/24 1557 DD/ 1554 TD/TT: Candy Bar Attendant: [facility] Radiology, Radiologist, MD - 05/27/2024 [place] [address] Ultrasound Report Signed Patient: JORDIN TYLER MR#: [id number] : 2005 Acct:[id number] Age/Sex: 19 / F ADM Date: 05/27/24 Loc: US Attending Dr: Jerry Wilson D.O. Ordering Physician: Jerry Wilson D.O. Date of Service: 05/27/24 Procedure(s): US OB cervical length Accession Number(s): [id number] cc: Jerry Wilson D.O.; Physician,Non-Staff Christine [place] [id number] Patient Name: JORDIN TYLER MRN: [facility]:[id number] date: 2005 Sex: F Assigned Patient Location: US Current Patient Location: US Accession/Order Number: [id number] Exam Date: 05/27/2024 15:54 Report Date: 05/27/2024 15:54 At the request of: JERRY WILSON DO Procedure: US OB cervical length Ultrasound to assess for cervical length Cervical length 4.1 cm. This the cervix is closed. US/US OB cervical length IMPRESSION: 4.1 cm cervical length Impression dictated by: Vijay Castaneda M.D.05/27/2024 3:54 PM Dictation Location: [facility] Electronically authenticated by: [id number] Y Date: 05/27/2024 15:54 Dictated By: Vijay Castaneda D.O. Signed By: 05/27/24 1557 DD/ 1554 TD/TT: Candy Bar Attendant: [facility] Radiology Study observation (narrative) [facility] US OB CERVICAL LENGTHOrdered By: Radiologist Radiology on 05-27-2024 [facility] Work Phone: RECURRENT VAGINITIS (HTRX)on 05-23-2024 ATOPOBIUM VAGINAE 0 [facility] ATOPOBIUM VAGINAE Not detected [facility] BVAB 2,3 (BACTERIAL VAGINOSIS ASSOCIATED BACTERIA 2, 3); MOBILUNCUS SPP 0 [facility] BVAB 2,3 (BACTERIAL VAGINOSIS ASSOCIATED BACTERIA 2, 3); MOBILUNCUS SPP Not detected [facility] DUANE ALBICANS, PARAPSILOSIS, TROPICALIS 0 [facility] DUANE ALBICANS, PARAPSILOSIS, TROPICALIS Not detected [facility] DUANE GLABRATA 0 [facility] DUANE GLABRATA Not detected [facility] DUANE KRUSEI 0 [facility] DUANE KRUSEI Not detected [facility] CHLAMYDIA TRACHOMATIS 0 [facility] CHLAMYDIA TRACHOMATIS Not detected N [facility] GARDNERELLA VAGINALIS 0 [facility] GARDNERELLA VAGINALIS Not detected N [facility] MEGASPHAERA (TYPES 1, 2) 0 [facility] MEGASPHAERA (TYPES 1, 2) Not detected [facility] MYCOPLASMA GENITALIUM 0 [facility] MYCOPLASMA GENITALIUM Not detected N [facility] NEISSERIA GONORRHOEAE 0 [facility] NEISSERIA GONORRHOEAE Not detected N [facility] TRICHOMONAS VAGINALIS 0 [facility] TRICHOMONAS VAGINALIS Not detected N [facility] Urinalysis macro (dipstick) panel (U)on 05-22-2024 Bilirubin, UA Negative Negative - 4(70) +++ mg/dL [facility] Blood, UA Negative Negative - 50 Eliseo/mcL [facility] Clarity, UA Clear [facility] Color, UA Yellow [facility] Glucose, UA Negative Negative - 2000(110) ++++ mg/dL [facility] Interpretation and review of laboratory results Normal [facility] Ketones, UA Negative Negative - 160(16) ++++ mg/dL [facility] Leukocytes, UA Trace Negative - 500+++ Jeremias/mcL [facility] Nitrite, UA Negative Negative - Positive [facility] pH, UA 6 5 - 9 [facility] Protein, UA Negative Negative - 2000(20) ++++ mg/dL [facility] Spec Grav, UA 1.025 1 - 1.03 [facility] Urobilinogen, UA 0.2 0.2 - 12 mg/dL [facility] HCG ( test) Ql (U)o n 05-09-2024 Interpretation and review of laboratory results Abnormal [facility] Preg Test, Ur Positive Negative [facility] US OB LIMITED 1+ FETUSESon 0 [...] weeks 5 days. ALISHA is 10/12/2024. Electronically Signed:Electronicall y signed by RAS MCKINLEY II, MD, PHD at 11-May-2024 10:37:55 PM [facility] Normal Not Available Comment on above: Order Comment: US OB TRANSVAGINAL No LMP recorded. Urinalysis macro (dipstick) panel (U)on 05-09-2024 Bilirubin, UA Negative Negative - 4(70) +++ mg/dL [facility] Blood, UA Negative Negative - 50 Eliseo/mcL [facility] Clarity, UA Clear [facility] Color, UA Yellow [facility] Glucose, UA Negative Negative - 1999(110) ++++ mg/dL [facility] Interpretation and review of laboratory results Abnormal [facility] Ketones, UA Negative Negative - 160(16) ++++ mg/dL [facility] Leukocytes, UA Positive Negative - 500+++ Jeremias/mcL [facility] Comment on above: small Nitrite, UA Negative Negative - Positive [facility] pH, UA 7 5 - 9 [facility] Protein, UA Negative Negative - 2000(20) ++++ mg/dL [facility] Spec Grav, UA 1.025 1 - 1.03 [facility] Urobilinogen, UA 0.2 0.2 - 12 mg/dL [facility] Chlamydia/Gonococcus, NAAon 01-12-2024 C. trachomatis rRNA TIM+probe Ql (Unsp spec) Negative Invalid Interpretation Code [facility] Comment on above: Performed By: #### 1 [id number] #### [facility] [address] [place] [address] N. gonorrhoeae rRNA TIM+probe Ql (Unsp spec) Negative Invalid Interpretation Code [facility] Comment on above: Result Comment: Perf ormed at: =G [facility] [place] [address] [place], [place] [id number] MD Rodriguez Briones Performed By: #### 1 [id number] #### [facility] [address] [place] [address] CBC w/Indiceson 09-12-2023 Basophilic stippling LM Ql (Bld) PRESENT Invalid Interpretation Code [facility] Comment on above: Performed By: #### 2 [id number] ####[facility] [address] [place] [address] Erythrocyte distribution width (RBC) [Ratio] 16.6 % High 10.9-14.2 [facility] Comment on above: Performed By: #### 2 [id number] ####[facility] [address] [place] [address] Hematocrit (Bld) [Volume fraction] 23.6 % Low 34.0-46.0 [facility] Comment on above: Performed By: #### 2 [id number] ####[facility] [address] [place] [address] Hemoglobin (Bld) [Mass/Vol] 7.6 g/dL Low 12.0-16.0 [facility] Comment on above: Performed By: #### 2 [id number] ####[facility] [address] [place] [address] Hypochromia Auto Ql (Bld) PRESENT Invalid Interpretation Code [facility] Comment on above: Performed By: #### 2 [id number] ####[facility] [address] [place] [address] MCH (RBC) [Entitic mass] 21.8 pg Low 27.0-34.0 [facility] Comment on above: Performed By: #### 2 [id number] ####[facility] [address] [place] [address] MCHC (RBC) [Mass/Vol] 32.3 g/dL Normal 31.4-36.0 [facility] Comment on above: Performed By: #### 2 [id number] ####[address] [address] MCV (RBC) [Entitic vol] 67.6 fL Low 80.0-100.0 [facility] Comment on above: Performed By: #### 2 758447 ####[facility] [address] [place] [address] Microcytes Ql (Bld) PRESENT Invalid Interpretation Code [facility] Comment on above: Performed By: #### 2 [id number] ####[facility] [address] [place] [address] Platelet 202.0 E9/L Normal 150.0-500.0 [facility] Comment on above: Performed By: #### 2 [id number] ####[facility] [address] [place] [address] Platelet mean volume (Bld) [Entitic vol] 9.2 fL Normal 6.4-10.8 [facility] Comment on above: Performed By: #### 2 579557 ####[facility] [address] [place] [address] Platelets Large LM Ql (Bld) PRESENT Invalid Interpretation Code [facility] Comment on above: Performed By: #### 2 337774 ####[facility] [address] [place] [address] Polychromasia LM Ql (Bld) PRESENT Invalid Interpretation Code [facility] Comment on above: Performed By: #### 2 737427 ####[facility] [address] [place] [address] RBC (Bld) [#/Vol] 3.5 E12/L Low 4.3-5.9 [facility] Comment on above: Performed By: #### 2 355728 ####[facility] [address] [place] [address] RBC size Nom (Bld) NORMAL Invalid Interpretation Code [facility] Comment on above: Performed By: #### 2 [id number] ####[address] [address] WBC corrected for nucl RBC Auto (Bld) [#/Vol] 10.0 E9/L Normal 4.0-11.0 [facility] Comment on above: Performed By: #### 2 639273 ####[facility] [address] [place] [address] HEMATOLOGYOrdered By: SYSTEM SYSTEM on 09-12-2023 Basophilic [...] Dr. ConradCPT code 85/60 Invalid Interpretation Code [facility] [place] [place] HemeManSS Inpatient Clinical Summaryon 09-12-2023 Inpatient Clinical Summary Inpatient Clinical Summary [address] [address] Clinical Summary Person Information Name: JORDIN TYLER/[facility] Age: 18 Years : 2005 Sex: Female PCP: NONE, XXXX Marital Status: Single Phone: [phone] Race: White Ethnicity: Non- or Language: [place]an Visit Id: Visit Reason: INDUCED Speciality: Acuity: 1 PP Enc Type: Inpatient Med Service: Obstetrics Arrival: 09/10/2023 21:01:27 Discharge: 09/12/2023 18:05:00 Dispo Type: Home (Routine DC) Address: [address] [place] [address] [place] [id number] Provider Notes: Diagnosis: Anemia affecting , antepartum; [...] Follow up: With: Address: When: Magalis Snow [address] [place] [address] [place] [address] Business (1) Within 6 weeks Patient Education Information: Care After Vaginal Delivery; Anemia [facility] Inpatient Clinical Summary Inpatient Clinical Summary [place] [id number] Clinical Summary Person Information Name: JORDIN TYLER [place] Age: 18 Years : 2005 Sex: Female PCP: NONE, XXXX Marital Status: Single Phone: [phone] Race: White Ethnicity: Non- or Language: [place] Visit Id: Visit Reason: INDUCED Speciality: Acuity: 1 PP Enc Type: Inpatient Med Service: Obstetrics Arrival: 09/10/2023 21:01:27 Discharge: Dispo Type: Address: [address] [place] [address] [address] [facility] [id number] Provider Notes: Diagnosis: Anemia affecting , antepartum; [...] up: With: Address: When: Magalis Snow [address] [place] [address] Business (1) Within 6 weeks Patient Education Information: Care After Vaginal Delivery; Anemia [facility] Inpatient Patient Summaryon 09-12-2023 Inpatient Patient Summary Inpatient Patient Summary [address] [address] Patient Discharge Instructions PERSON INFORMATION [...] Follow up: With: Address: When: Lucas Wetzel, [address] [address] Business (1) Within 6 weeks In the event that this physician does not participate in your insurance network, please consult with your insurance company to find a nearby participating provider. Comment: JAYSON Suárez SHIANNE A, have received the attached patient education materials/instructio ns and have verbalized understanding. Patient Signature Date Clinican/Nurse Signature Date MEDICATION LIST New Medications [facility] 1987, [address] [facility] [address] [place], [place] [id number], [phone] acetaminophen (acetaminophen 325 mg Tab) 3 Tablets [...] 0. Last Dose: Next Dose: [facility] PATIENT EDUCATION INFORMATION Instructions: Care After Vaginal [...] redness, swelling, (more content not included)... [facility] In[facility] Patient Summary Inpatient Patient Summary [place] [id number] Patient Discharge Instructions PERSON INFORMATION Name: JORDIN [...] Follow up: With: Address: When: Lucas Wetzel, [facility] [address] [place] [address] Business (1) Within 6 weeks In the event that this physician does not participate in your insurance network, please consult with your insurance company to find a nearby participating provider. Comment: JAYSON Suárez SHIANNE A, have received the attached patient education materials/instructio ns and have verbalized understanding. Patient Signature Date Clinican/Nurse Signature Date MEDICATION LIST New Medications [facility] 1987, [address] [facility] [place], [place] [id number], [phone] acetaminophen (acetaminophen 325 mg Tab) 3 Tablets [...] 0. Last Dose: Next Dose: Pharmacy Information: [facility] [place] , [address] [place] PATIENT EDUCATION INFORMATION Instructions: Care After Vaginal [...] redness, swelling, (more content not included)... [facility] Path. Reviewon 09-12-2023 Path Review Hypochromic microcytic anemia with anisocytosis rule out iron deficiency Invalid Interpretation Code [facility] Comment on above: Performed By: #### 1 [id number] #### [facility] [address] [place] [id number] Surgical Pathology Reporton 09-12-2023 Surgical Pathology Report [facility] [address] [facility] [place] [address]- Surgical Pathology Report Collected Date/Time: 09/11/2023 05:58 [...] is scattered throughout the entire placental tissue. Meter Readers Supervisor portion is submitted in four cassettes: 1 - Cord and membrane 2-4 - Meter Readers Supervisor sections of placenta parenchyma (DC) DC:MCA Microscopic Description Microscopic examination performed unless gross only specified. [facility] Comment on above: Performed By: #### 4 [id number] #### [facility] [address] [place] [address] Delivery Summaryon Delivery Summary Delivery Summary Delivery [...] to push and delivered a viable female in OA position with loose nuchal cord x 1 which was reduced at the perineum without difficulty. Infant was weighing 6 pounds 14 ounces, 3124 g with Apgars of 9 and 9 at 1 and 5 minutes after delivery, respectively over intact perineum. 3 vessels umbilical cord and intact placenta was delivered spontaneously. EBL 350 mL. Patient and was recovering in a stable condition Delivery Documentation Additional Delivery Information Presenting PartVertex(Recorded: 09/11/2023 04:43 EDT) Presenting PartVertex(Recorded: 09/11/2023 04:22 EDT) Presenting PartVertex(Recorded: 09/11/2023 03:19 EDT) Presenting PartVertex(Recorded: 09/11/2023 02:17 EDT) Presenting PartVertex(Recorded: 09/11/2023 00:54 EDT) Presenting PartVertex(Recorded: 09/10/2023 21:18 EDT) Anesthesia Type OBEpidural Labor [...] Time:09/11/2023 00:55 EDT Membrane Status:Ruptured Amniotic Fluid Color/Description:Cl ear Medications Given D5LR 1000 mL Soln-IV 1,000 mL, 1000 mL, IV Epidural Bag Ropivacaine Fentanyl 200 mL, 200 mL, Epidural Lactated Ringers IV Chelo 1000 mL 1,000 mL, 1000 mL, IV oxytocin additive 30 unit(s) + Dextrose 5% in Lactated Ringers Premix 500 mL, IV Betadine Topical Solution 10%, 1 maryjo, Topical epinephrine-lidocain e 1:200,000-1.5% preservative-free injectable solution, 150 mg, Epidural fentanyl 50 mcg/mL injectable solution, 100 mcg, Epidural [id number] [F], 50 mcg, Oral ropivacaine 0.2% injectable solution 10 mL, 18 mg, Epidural [facility] Comment on above: Result Comment: Elec tronically Signed By: Magalis Snow DO.br\Date and Time Signed: 09/11/23 05:43 EDT URINALYSISOrdered By: SYSTEM SYSTEM on 09-11-2023 Bilirubin Ql (U) Negative Normal Negativemg/ d L [facility] UA Auto SS Clarity (U) Clear (09/11/23 2:24 AM) Normal Clear [facility] UA Auto SS Color (U) Light-Yellow 1 (09/11/23 2:24 AM) Normal Yellow [facility] UA Auto SS Comment on above: Interpretive Data: M icroscopic readings are only performed on those samples that meet specific criteria set forth by [facility]. Glucose Ql (U) Negative Normal [...] Normal Negativemg/d L [facility] UA Auto SS URINALYSISOrdered By: Austin Cabrera on 09-11-2023 UA Spec Desc Mendoza (09/11/23 2:24 AM) Normal [facility] UA Auto SS ABO/Rhon 09-10-2023 ABO/Rh Positive Invalid Interpretation Code [facility] Comment on above: Performed By: #### 2 [id number] #### [facility] [address] [place] [address] ABO/Rh History Checkon 09-09 ABO/Rh History Check Verified Hx Blood Type [facility] Comment on above: Performed By: #### 1 [id number] #### [facility] [address] [place] [address] ABSCon 09-10-2023 ABSC Gel Interp Negative Normal [facility] Comment on above: Performed By: #### 1 [id number] #### [facility] [address] [place] [address] BLOOD BANKOrdered By: Austin Cabrera on 09-10-2023 ABO/Rh Interp Positive Invalid Interpretation Code [facility] [place] [place] BB Subsection ABSC Gel Interp Negative (09/10/23 9:43 PM) Normal [facility] [place] [place] BB Subsection Blood Bank ID#on 09-10-2023 BBID# [id number] Invalid Interpretation Code [facility] Comment on above: Performed By: #### 1 [id number] #### [facility] [address] [place] [address] CBC w/Indiceson 09-10-2023 Erythrocyte distribution width (RBC) [Ratio] 17.0 % High 10.9-14.2 [facility] Comment on above: Performed By: #### 2 [id number] #### [facility] [address] [place] [address] Hematocrit (Bld) [Volume fraction] 24.1 % Low 34.0-46.0 [facility] Comment on above: Performed By: #### 2 [id number] #### [facility] [address] [place] [address] Hemoglobin (Bld) [Mass/Vol] 7.7 g/dL Low 12.0-16.0 [facility] Comment on above: Performed By: #### 2 557095 #### [facility] [address] [place] [address] Hypochromia Auto Ql (Bld) PRESENT Invalid Interpretation Code [facility] Comment on above: Performed By: #### 2 [id number] #### [facility] [address] [place] [address] MCH (RBC) [Entitic mass] 21.4 pg Low 27.0-34.0 [facility] Comment on above: Performed By: #### 2 [id number] #### [facility] [address] [place] [address] MCHC (RBC) [Mass/Vol] 31.8 g/dL Normal 31.4-36.0 [facility] Comment on above: Performed By: #### 2 [id number] #### [facility] [address] [place] [address] MCV (RBC) [Entitic vol] 67.4 fL Low 80.0-100.0 [facility] Comment on above: Performed By: #### 2 [id number] #### [facility] [address] [place] [address] Microcytes Ql (Bld) PRESENT Invalid Interpretation Code [facility] Comment on above: Performed By: #### 2 [id number] #### [facility] [address] [place] [address] Platelet mean volume (Bld) [Entitic vol] 8.8 fL Normal 6.4-10.8 [facility] Comment on above: Performed By: #### 2 [id number] #### [facility] [address] [place] [address] Platelets (Bld) [#/Vol] 209.0 E9/L Normal 150.0-500.0 [facility] Comment on above: Performed By: #### 2 [id number] #### [facility] [address] [place] [address] RBC (Bld) [#/Vol] 3.6 E12/L Low 4.3-5.9 [facility] Comment on above: Performed By: #### 2 [id number] #### [facility] [address] [place] [address] WBC corrected for nucl RBC Auto (Bld) [#/Vol] 8.9 E9/L Normal 4.0-11.0 [facility] Comment on above: Performed By: #### 2 [id number] #### [facility] [address] [place] [address] RBC size Nom (Bld) NORMAL Invalid Interpretation Code [facility] Comment on above: Performed By: #### 2 [id number] #### [facility] [address] [place] [address] HEMATOLOGYOrdered By: SYSTEM SYSTEM on 09-10-2023 Erythrocyte [...] Strep colonization by PCR Negative Normal [facility] Comment on above: Performed By: #### 4 [id number] #### [facility] [address] [place] [address] C Urineon 08-31-2023 Bacteria identified Cx Nom [...] Locations R1: This test was performed at: [facility], [address] [place] [address], [address] , [place], [facility] Comment on above: Performed By: #### 2 [id number] #### [facility] [address] [place] [address] URINALYSISOrdered By: SYSTEM SYSTEM on 08-29-2023 Bilirubin [...] that meet specific criteria set forth by [facility]. Epithelial cells.squamous Auto (Urine sed) [...] Auto SS Coding Summary.on 07-25-2023 Coding Summary. BYQGDdti69OLb6nXx+PG hlYWQ+JA5KTAFdS94lyV PkmX0wQ0ZRUMvGBlqnNP YIIHrFIcExpmXcVF3mmD NjZXJu IC8+KT3jDDHdBphfzYSu m5T5kDJ4W59odt2xLLmv iFD2VBGkXmSkaeilq4cx bCm3BZalJbqeLzKd IFBjpS14QGM0bC21Gu64 yIVhwDMjv1vjjTq4XxWc DXKdLMP2oIzhLTrhh8Wq JNPjW70vjCXjt5P8 IGNvbGxhcHNlOyBlbXB0 tC9zOKqhftfjg0lcswzq Mnp6tj69bNJda9H8aIA7 V9LvvrK6ZNZezXPl CkmukQMRuF7yhvdpv0zk ktgyRrNgXWTwYMy9KZo6 NSEiwSraHmJhDT12NSO7 OLJtigCwC2LePGJb nNpxJrU7c4M0Dw7RT8ST AukxE5MBKTSLKBjuqQW+ EF02yu53Y8UmPpfmUpj0 ZZNgOUJ4qTN7nZ5i QBKgDLbec5F3hOO8I5Ft avXepk7ip8iwKYTcHUpa E82yqJPhp7Q6JPPvyEP8 AHPjpZlvWpDmnY04 Oyc+TKDegDqle8YrMseu e0otx7lczZf6MvolFKZg mdNaeLgdIPI9n4QdDo0t GBRwwOD3rRS0uF6v EiJhLuQ4QCpeT992IzOj fOFzRjwpR17uY7PjhSO+ YRLyJuu1BKZxnJazZS2w U6KdIJEwdcqbwFIn bDzgQD9wEYNwhiziGSTw iG2oSQWdB0t1AcZhYfO4 WOwdZ4RlOXDrrabaOz36 yY0wEdFmJxB0APez N4TxclQ7FTWayDGlGMuh ROE1T72tv9P2AEOeCGJf NWH3vKT6cR2nbOnleoid bGVmdDsgdmVydGlj YWrfLXhuO905GRNewHft PkNvZGluZyBEYXRlOiAg MDYvMTkvMjAyNDwvdGQ+ YWSfIDV9tCcyIHXf hGKtSGczPa8deAzgmSki FI8pATEtbgoyJVKulW6m GSWajPMoiQqsAI0gCCIm gilab691JyMmDKJ9 HPBocJZoR0RwuU7pQoZs BJNeBNNuU3WogWZlANkw K390ZZkjQaE5MTQhahQs K9SfRWSktDdvPoW5 i3R0Hi3Rg3GdmqxwV0Nn sTWfWwZzAhrmTEu9Z3Ia PjwvdHI+AJ98GZQoSP58 YUl6YRJ2qDcsBFol MUHdT8EfqQ3wXmBxOKVc ZGRkOyc+PHRhYmxlIHdp ZHRoPScxMDAlJyBzdHls XZ5gCp2dKCDtEYTx nQtleSJwVzBaj7lwBWLa ZCrpXG7auLhbA5IdnMN9 NCMny5s1Qd98F71nV9Ub dXA+VDRrkMA8vHA0 iD3jWcZkEmV4OMjbE219 HyVkrHBwPojdy6lvk9do uGi8YrW9CZEjfqVcxOip SAZ0g5KiWb70A31b IHdpZHRoPSIxNSUiIHZh jZddgs5jbO9iLc3+PGNv qOJ2jXD0vW1pKiPgUjN1 IJjjX972AwQbdZLb Gcabz6ioy9winIl6BaVo WODiicZkbKwwZFQ3p8Lm Gc97Z6EfmJuhe0FfInr5 xl81fSPld6O8jDE8 H4SgDVPxdrnccUAkrTpq EJ9jWBUjlwjmHAGlcE4o UVYiC9z8XiIuHjJ3CCfg Y0UcwnU8IRZdhPAu BNMlgRBIzN4rlbbhn8ln npciXwXvTCJpHNv1DTz3 WMGusUnnQwGwOWZ9IeI7 ZYT0dDIrsR8sdNmx kqetnG7xWsp+NDB2sKBd bCEJIH6sEdmfwCT+PHRk HYU4sWtdTOqlTAXwdT3h XHEzJ2i9CaDdGkL1 ADwnQ2OnkvO7FRDovTIr LUAewVBFsL9tcctox6gk arxbQcCwQFEwTWl5OTm9 LWFsaWduOiBsZWZ0 HeM3RZN7mFCniK8fxBxs joobgI8qNrk+QmlydGgg NSQ5LVb8K4EdNjc8YSDm qDuiLD1ypUDaQHdb Id2dtGpjqEhuFW9aITHv axlkn250MgXyf8nzTGCq hNBoZYntKDT2R78mc8O6 BRYvACIgXXR2aFP5 lW2xcUaefwhniBAcrVek spMnfKhlKLvqOLtvZ888 NDNzmBesUrXgQXk2P9Kz Gxk0ATZelJvhNU6w xLAkNJquKy4smGtvgRvc GD1iAZPnbddgg820KlQa f8ssSPVlpCCxTYgvZJQ3 M78bi9P5LLTcFKFi CNU1gUP9uR1ksAzmjjpa bGVmdDsgdmVydGljYWwt AZhaW294WBYdtZpzNtOp qKz5D0YrBcd2GRHt rWdsBF6uzRCaUKauJu8c lXljgXfkNL4gTCDeslht u438KzIko5fmSSUuwFVu JChjKQI0F25am0U3 AICdZLQeGIN8oEO1eL8m bGlnbjogbGVmdDsgdmVy vPqfIVhaVYegU156MYXm cDsnPlBhdGllbnQg LNepKKz8B4BoUnukfMV+ YA48NPIrRO53bFLwzRVr u1dsvOn4BwVmHGMuYVR7 uLzgKWfak7AyFUCn K54ngFMnr7N8RKCrtMcz kSAaWpQehSV5aT8jUGlk cgvpy8igosibGmuqx1ek cq35vM51X61hMYlc ZHRoPSIzMCUiIHZhbGln va2jpF3eJg1+PGNvbCB3 wFR8eQ8gCCLrEcT5WWwn P219RnEiyEAkOfjo d9lkp5gayAl6EwG8XRPh waOliRrxTAE5l5JgQr26 W58fBSvtJRIzFJEkIBMr VFWqtKtcev5piZ4t Ii8+ZJAzzRH0tTT2gU9h QgTlIyR6XMkxG744XmAn hGMpOwfeI44vK5PrmWB+ PMEuWgv6KZPlvPry XC4qvFIhOJugVm8qUDR4 AnUlIfPdIDhsD4AvIYSm lqvnubcfuZI7YURbWLGj uH57Fv2qhLeaQZTm qTRCsQ9vxkzjf0ybqlaj RtGxBHYaFFj5BOd6CYPk uAdsZuQnSVV0KlE0MXO1 qLEikO5lkKbsxlmz pX9dT1CuUFHbnubqAu16 lF9dCtIjFyH2PFabMfu+ L2iVFhDQZKQISPeTIk4L HJX4X6WjWop7NNZv iRaxLY3uaRMaGEecDt6d pZnzbYmrBP5kKGXrahea IALdqD2hKZBcvWHpuVjl SJ3qTTQzixqol048 BpXsAFM5LQBnzQMyT0Yw xA8cVtOeQFQzLVXyF9Vq bTKkIDbnZ648RXazCgE8 SOIhmdZjW8CePDUr oHdyFtW4r1Q2Fa6pSl5d Ry9oUZL4YY41KF60jGVx g3I6fUH7Q1KePRYgduop obuapNN8HLQuMXKl cH70fZWjHJmuDj9ci5P8 v188UCRcDDWbiX39Wz4l wOjwNKYhwPJJpP9xtnpb k4ztmxjzWcXwWRCd JWi7JWf6MUIfxBgiZxGn DAB3DoA2DQU7qXHhbL1g nWewfwoooY8bHgi+MTkg XSUfudW0D6MkYdl3 VMWskCfzDY3hnHViTUfj Fv4okHcrdSucGM7iNTAq yasfJXQipZ7eKNKvwMWz eHtrGJ3wNMTyyinc o711FpJcDDR2VCDaqWYy H8WqgY6hVbYgOCKxKHMp H5JalILgSXbdH007MBic LnX7WHQmriMvZ9Ez SUTxgOsoNtG4o4H8Wc0N NR0rySI7M2AkPdq6HPWc hCsrXA1qfADhGMfvFx2z tNnykNrvPD6kMRKw grekSIHtuJ1mFHUjzIIj gRfnBH6iUJTghfwbg088 SrStMTF7PGJwdFBzV1Xq xT8eLtWbFBElGBCs W0ItuBQnBQffX072CDum QjS3JDMmxxSpD7YcEILj hQjrNeB1l1W8Hm6KNgTL tofyL4U2U4MlNqcg dHI+OT58CKIqZC07dEIe jUYcp2kfrAt2IyZkJSEb RLS9dNisFAwms0JlCPPp Y20ltBDnv6K0ZLAw wRwzgKZtMcBnxMR8bX2f BZuefcdib4trdyslXivy f1usha60uK30E60lSHsr ZHRoPSIzMCUiIHZh jNwlpv3huS6nCm8+PGNv fHT6rPK9eW8tDwRkGkJ1 KAsuO420UuCctOHwWtpf h8upf8iqdZx2AkEy UYHdrdMjrJfqTOF3d1Cm Eh96W00eCEtjMEIaOCAb GFNdOSAocNohaa7dhZ3c Ii8+QJ7ck0atgg38 zW36cNP+TJVfLTA1lNhk AKcuHMDjrO5gTKncHpY0 NBNgQaVdwM05xWDjJSgz Zr9kkBoshQqzUB6o IRNafbkaa379RiNze0zg TSFivGFtJDxaPMR9M15i p8T5DGWlDLVjHID7yRO4 qY2uuGqfldecfBGu dDsgdmVydGljYWwtYWxp F737JWQuqGleIzDbxBJv O9viubRGJL3vXwdvbQR+ UGOhZLT4hJleVZmf MJPouY5nUZRtQ7v3TtLt MoZ6XWjwA7PfmqZ2VKZy pTZoYSFbiCAEeC8osshv r0mdzgjqEaWdCTDw ASy9ADd6ZBVlvYklEjJp HRE2GsI0XYJ6vGOydQ0h rYacktqvpY4mCcn+RklO OjwvdGQ+PHRkIHN0 qUsyYZswIWEvuB5wNJJm G3h2GoAoIdJ5CSllQ9Tr phV0WTTyvCRfMTYapSOB zC9noyffn8lqqyin JhBaWMXlCKi2TOg4PNUu dEpoXnMqRBV8FhI1NUU1 oBVccS8yfCbbytehqB6b Oyc+TVJOOjwvdGQ+ GXKtGPN5mFyfTJmeTPEb zX9uVPSpP2h8VpPiDiG5 RZgjV9QwjzK8MFWwfJPv MUHeiESDwA2xpoad x2mkjzsiBuPhBOQfPZz2 CHh2XREppGeuYfMwRKR5 TuN2OUK3nBYorK1rtVvm rvhrjV0jMrp+UGF5 KQL5QP75GI36C2IdDyvo dGFibGU+PHRhYmxlIHdp ZHRoPScxMDAlJyBzdHls TU8qKz6xDLElKIWn bGxhcHNlOiBjb (more content not included)... [facility] C Urineon 07-21-2023 Bacteria identified Cx [...] This test was performed at: [facility], [address] [place] [address], [address] , , [facility] Comment on above: Performed By: #### 2 [id number] #### [facility] [address] [place] [address] Nursing Assessmenton 024 Nursing Assessment [id number] 3#1.00TIFF [facility] Consent for Treatmenton 07-06 Consent for Treatment [id number] #1.00TIFF [facility] Discharge Instructionson Discharge Instructions [id number] #1.00TIFF [facility] Inpatient Clinical Summaryon 07-19-2023 Inpatient Clinical Summary [address] [address] Clinical Summary Person Information Name: JORDIN TYLER/[facility] Age: 18 Years : 2005 Sex: Female PCP: MARK STONE Marital Status: Single Phone: [phone] Race: White Ethnicity: Non- or Language: [place] Visit Id: Visit Reason: ABD PAIN Speciality: Acuity: Obs Enc Type: OB Triage Med Service: Obstetrics Arrival: 07/19/2023 06:03:39 Discharge: 07/19/2023 07:45:00 Dispo Type: Home (Routine DC) Address: [address] [place] [address] [place] [address] [id number] Provider Notes: Diagnosis: Problems Active (12/20/2022) 37 [...] Follow up: With: Address: When: Magalis Snow [facility] [place] [id number] Business (1) In 6 days 07/25/2023 Comments: Call for any problems. Call physician if symptoms worsen Return for contractions closer, longer, harder Return for decreased movement Return if ruptured membranes or vaginal bleeding Patient Education Information: [facility] Patient Summaryon 07-19-2023 Inpatient Patient Summary [place] [id number] Patient Discharge Instructions PERSON INFORMATION Name: JORDIN TYLER Date of : 2005 Current Date: 07/19/2023 08:19:52 PHYSICIANS Admitting Physician: Magalis Snow DO Primary Care Physician: [facility], GENERIC PCP Phone Number: Comment: Discharge Diagnosis: [...] results: Follow up: With: Address: When: Magalis Snow [facility] [place], [email or web address] [address] [address] [email or web address] ([email or web address] In 6 days 07/25/2023 Comments: Call for [...] A, have received the attached patient education materials/instructio ns and have verbalized understanding. Patient Signature Date [...] signed up for this yet, please contact [employer] at [phone] to get signed up today. NGUYEN Award [...] QR code below. Thank you for choosing [facility] Insurance Correspondence Off ice07-19-2023 Insurance Correspondence Office [id number] #1.00TIFF [facility] UA with Cult Rflxon 07-19-19 24 Bilirubin Ql (U) Negative Normal Negative [facility] Comment on above: Performed By: #### 4 [id number] #### [facility] [address] [place] [address] Clarity (U) Clear Normal Clear [facility] Comment on above: Performed By: #### 4 [id number] #### [facility] [address] [place] [address] Color (U) Light-Yellow Normal Yellow [facility] Comment on above: Result Comment: Micr oscopic readings are only performed on those samples that meet specific criteria set forth by [facility]. Performed By: #### 4 [id number] #### [facility] [address] [place] [address] Epithelial cells.squamous Auto (Urine sed) [#/Area] 5-8 Invalid Interpretation Code [facility] Comment on above: Performed By: #### 4 [id number] #### [facility] [address] [place] [address] Glucose Ql (U) Negative Normal Negative [facility] Comment on above: Performed By: #### 4 [id number] #### [facility] [address] [place] [address] Hemoglobin Auto test strip (U) [Mass/Vol] Negative Normal Negative [facility] Comment on above: Performed By: #### 4 [id number] #### [facility] [address] [place] [address] Ketones Auto test strip Ql (U) Negative Normal Negative [facility] Comment on above: Performed By: #### 4 [id number] #### [facility] [address] [place] [address] Leukocyte esterase Auto test strip Ql (U) 250 Jeremias/uL Abnormal Negative [facility] Comment on above: Performed By: #### 4 [id number] #### [facility] [address] [place] [address] Mucus Auto Ql (U) Trace Normal Negative [facility] Comment on above: Performed By: #### 4 [id number] #### [facility] [address] [place] [address] Nitrite Auto test strip Ql (U) Negative Normal Negative [facility] Comment on above: Performed By: #### 4 [id number] #### [facility] [address] [place] [address] pH (U) 6.5 [pH] Invalid Interpretation Code 5.0-9.0 [facility] Comment on above: Performed By: #### 4 [id number] #### [facility] [address] [place] [address] Protein Ql (U) Negative Normal Negative [facility] Comment on above: Performed By: #### 4 [id number] #### [facility] [address] [place] [address] RBC Ql (U) 0-3 Normal 0-3 [facility] Comment on above: Performed By: #### 4 [id number] #### [facility] [address] [place] [address] Specific gravity (U) [Rel density] 1.019 Invalid Interpretation Code 1.005-1.030 [facility] Comment on above: Performed By: #### 4 [id number] #### [facility] [address] [place] [address] Urobilinogen (U) [Mass/Vol] Negative Normal Negative [facility] Comment on above: Performed By: #### 4 [id number] #### [facility] [address] [place] [address] WBC Auto (Urine sed) [#/Area] 0-5 Normal 0-5 [facility] Comment on above: Performed By: #### 4 [id number] #### [facility] [address] [place] [address] Type of Urine collection method Clean Catch [facility] Comment on above: Performed By: #### 4 [id number] #### [facility] [address] [place] [address] URINALYSISOrdered By: SYSTEM SYSTEM on 07-19-2023 Bilirubin Ql (U) Negative Normal Negativemg/ d L [facility] [place] [place] UA Auto SS Clarity (U) Clear (07/19/23 6:34 AM) Normal Clear [facility] [place] [place] UA Auto SS Color (U) Light-Yellow 1 (07/19/23 6:34 AM) Normal Yellow [facility] UA Auto SS Comment on above: Interpretive Data: M icroscopic readings are only performed on those samples that meet specific criteria set forth by [facility]. Epithelial cells.squamous Auto (Urine sed) [#/Area] 5-8 graded/HPF Invalid Interpretation Code [facility] UA Auto [...] DATE/TIME: 07/09/2023 16:15 EDT FREE TEXT SOURCE: KARI CADET, Kourtney CADET, Kourtney FINAL REPORTS Final Report [] Verified Date/Time: 07/11/2023 11:09 EDT <10,000 cfu/ml Mixed skin contaminants Performing Locations R1: This test was performed at: [facility], [address] [place] [address], [address]- , , [facility] Comment on above: Performed By: #### 2 [id number] #### [facility] [address] [place] [address] HIV Screen 4th Generation wR fxon 07-11-2023 HIV 1+2 Ab+HIV1 p24 Ag IA Ql Non-Reactive Invalid Interpretation Code Non Reactive [facility] Comment on above: Result Comment: HIV Negative HIV-1/HIV-2 antibodies and HIV-1 p24 antigen were NOT detected. There is no laboratory evidence of HIV infection. Performed at: [address] [id number] PhD Jomar Verma Performed By: #### 9 [id number] #### [facility] [address] [place] [address] Hep Bs Agon 07-11-2023 HBV surface Ag IA Ql Negative Invalid Interpretation Code Negative [facility] Comment on above: Result Comment: Perf ormed at: [address] [id number] PhD Jomar Verma Performed By: #### 2 [id number] #### [facility] [address] [place] [address] RPR with Conf Rfxon 07-11-19 24 Reagin Ab RPR Ql (S) Non-Reactive Invalid Interpretation Code Non Reactive [facility] Comment on above: Result Comment: Perf ormed at: [address] [id number] PhD Jomar Verma Performed By: #### 1 [id number] #### [facility] [address] [place] [address] ABO/Rhon 07-09-2023 ABO/Rh Positive Invalid Interpretation Code [facility] Comment on above: Performed By: #### 2 [id number] #### [facility] [address] [place] [address] ABSCon 07-09-2023 ABSC Gel Interp Negative Normal [facility] Comment on above: Performed By: #### 1 [id number] #### [facility] [address] [place] [address] BLOOD BANKOrdered By: Tobias Ospina on 07-09-2023 ABO/Rh Interp Positive Invalid Interpretation Code [facility] [place] [place] BB Subsection ABSC Gel Interp Negative (07/09/23 3:58 PM) Normal [facility] [place] [place] BB Subsection CBC w/ Auto Diffon Anisocytosis Ql (Bld) PRESENT Invalid Interpretation Code [facility] Comment on above: Performed By: #### 2 [id number] #### [facility] [address] [place] [address] Basophils/100 WBC (Bld) 0.3 % Normal 0.0-2.0 [facility] Comment on above: Performed By: #### 2 [id number] #### [facility] [address] [place] [address] Basophils/Leukocytes Auto (Bld) [Pure # fraction] 0.0 E9/L Normal 0.0-0.2 [facility] Comment on above: Performed By: #### 2 [id number] #### [facility] [address] [place] [address] Eosinophils (Bld) [#/Vol] 0.1 E9/L Normal 0.0-0.5 [facility] Comment on above: Performed By: #### 2 [id number] #### [facility] [address] [place] [address] Eosinophils/100 WBC (Bld) 1.3 % Normal 0.0-8.0 [facility] Comment on above: Performed By: #### 2 [id number] #### [facility] [address] [place] [address] Erythrocyte distribution width (RBC) [Ratio] 15.0 % High 10.9-14.2 [facility] Comment on above: Performed By: #### 2 [id number] #### [facility] [address] [place] [address] Hematocrit (Bld) [Volume fraction] 28.8 % Low 34.0-46.0 [facility] Comment on above: Performed By: #### 2 [id number] #### [facility] [address] [place] [address] Hemoglobin (Bld) [Mass/Vol] 9.2 g/dL Low 12.0-16.0 [facility] Comment on above: Performed By: #### 2 [id number] #### [facility] [address] [place] [address] Hypochromia Auto Ql (Bld) PRESENT Invalid Interpretation Code [facility] Comment on above: Performed By: #### 2 [id number] #### [facility] [address] [place] [address] Lymphocytes (Bld) [#/Vol] 2.2 E9/L Normal 1.0-4.0 [facility] Comment on above: Performed By: #### 2 [id number] #### [facility] [address] [place] [address] Lymphocytes/100 WBC (Bld) 19.1 % Normal 14.0-50.0 [facility] Comment on above: Performed By: #### 2 [id number] #### [facility] [address] [place] [address] MCH (RBC) [Entitic mass] 23.5 pg Low 27.0-34.0 [facility] Comment on above: Performed By: #### 2 [id number] #### [facility] [address] [place] [address] MCHC (RBC) [Mass/Vol] 31.9 g/dL Normal 31.4-36.0 [facility] Comment on above: Performed By: #### 2 [id number] #### [facility] [address] [place] [address] MCV (RBC) [Entitic vol] 73.8 fL Low 80.0-100.0 [facility] Comment on above: Performed By: #### 2 [id number] #### [facility] [address] [place] [address] Microcytes Ql (Bld) PRESENT Invalid Interpretation Code [facility] Comment on above: Performed By: #### 2 [id number] #### [facility] [address] [place] [address] Monocytes (Bld) [#/Vol] 0.8 E9/L Normal 0.2-1.0 [facility] Comment on above: Performed By: #### 2 739191 #### [facility] [address] [place] [address] Neutrophils (Bld) [#/Vol] 8.1 E9/L High 2.0-7.5 [facility] Comment on above: Performed By: #### 2 [id number] #### [facility] [address] [place] [address] Neutrophils/100 WBC (Bld) 72.3 % Normal 36.0-75.0 [facility] Comment on above: Performed By: #### 2 [id number] #### [facility] [address] [place] [address] Ovalocytes LM Ql (Bld) PRESENT Invalid Interpretation Code [facility] Comment on above: Performed By: #### 2 [id number] #### [facility] [address] [place] [address] Platelet mean volume (Bld) [Entitic vol] 8.9 fL Normal 6.4-10.8 [facility] Comment on above: Performed By: #### 2 [id number] #### [facility] [address] [place] [address] Platelets (Bld) [#/Vol] 251.0 E9/L Normal 150.0-500.0 [facility] Comment on above: Performed By: #### 2 [id number] #### [facility] [address] [place] [address] RBC (Bld) [#/Vol] 3.9 E12/L Low 4.3-5.9 [facility] Comment on above: Performed By: #### 2 [id number] #### [facility] [address] [place] [address] RBC size Nom (Bld) SEE MORPHOLOGY Invalid Interpretation Code [facility] Comment on above: Performed By: #### 2 [id number] #### [facility] [address] [place] [address] WBC corrected for nucl RBC Auto (Bld) [#/Vol] 11.3 E9/L High 4.0-11.0 [facility] Comment on above: Performed By: #### 2 533146 #### [facility] [address] [place] [address] Consent for Treatmenton Consent for Treatment [id number] #1.00TIFF [facility] Consent for Treatment [id number] #1.00TIFF [facility] HEMATOLOGYOrdered By: SYSTEM SYSTEM on 07-09-2023 [...] Remisol Heme Physician Orderon 07-09-2023 Physician Order [id number] #1.00TIFF [facility] Physician Order [id number] #1.00TIFF [facility] Physician Order [id number] #1.00TIFF [facility] No Panel Informationon 03-20 Glucose, UA Negative Negative - 1999(110) ++++ mg/dL [facility] Protein, UA Negative Negative - 1999(20) ++++ mg/dL [facility] ED Note-Physicianon 02-17-19 ED Note-Physician Basic Information Time Seen: Sadie Macdonald PA-C 02/13/2023 14:21 Chief Complaint 8 weeks sees [facility] OB. appt. scheduled for 02/23. states she has been vomiting for a couple of weeks and feels dehydrated. denies vaginal bleeding or any cramping. History of Present Illness 18-year-old female who is 8 weeks presents for continued vomiting. She admits to dysuria. She states that she called her BRAIDER TENDER today and they were going to give [...] syndrome. She is to follow-up with her BRAIDER TENDER. Patient has not had any more vomiting, but still complains of nausea and dry heaving will be given Phenergan. She is now eating ice cream. Upon recheck, patient is sleeping comfortably on the cot with no further episodes of vomiting and will be discharged with a prescription for Zofran and Phenergan suppositories and follow-up with the BRAIDER TENDER. Afebrile, not tachycardic, not tachypneic, nontoxic-appearing, tolerating p.o. and ambulating at baseline and hemodynamically stable to be discharged home. Educated side effect of medications. Answered all questions. Patient in agreement with treatment. Assessment/Plan 1. Hyperemesis gravidarum (O21.0: Mild hyperemesis gravidarum) Ordered: ondansetron, 4 mg = 1 tab(s), Oral, q8hr, X 2 day(s), # 6 tab(s), Refills(s) 0, Pharmacy: [facility]/pharmacy #[id number], 165, cm, 02/13/23 14:25:00 EST, Height/Length Dosing, 69.5, kg, 02/13/23 14:25:00 EST, Weight Dosing promethazine, 12.5 mg = 1 supp, Rectal, q4hr, PRN for motion sickness, X 5 day(s), # 30 supp, Refills(s) 0, Pharmacy: [facility]/pharmacy #[id number], 165, cm, 02/13/23 14:25:00 EST, Height/Length Dosing, 69.5, kg, 02/13/23 14:25:00 EST, Weight Dosing 2. (Z34.90: Encounter for supervision of normal , unspecified, unspecified trimester) Ordered: ondansetron, 4 mg = 1 tab(s), Oral, q8hr, X 2 day(s), # 6 tab(s), Refills(s) 0, [id number], 165, cm, 02/13/23 14:25:00 EST, Height/Length Dosing, 69.5, kg, 02/13/23 14:25:00 EST, Weight Dosing promethazine, 12.5 mg = 1 supp, Rectal, q4hr, PRN for motion sickness, X 5 day(s), # 30 supp, Refills(s) 0, [id number], 165, cm, 02/13/23 14:25:00 EST, Height/Length Dosing, 69.5, kg, 02/13/23 14:25:00 EST, Weight Dosing 3. UTI in (O23.40: Unspecified infection of urinary tract in , unspecified trimester) Ordered: ondansetron, 4 mg = 1 tab(s), Oral, q8hr, X 2 day(s), # 6 tab(s), Refills(s) 0, [id number], 165, cm, 02/13/23 14:25:00 EST, Height/Length Dosing, 69.5, kg, 02/13/23 14:25:00 EST, Weight Dosing promethazine, 12.5 mg = 1 supp, Rectal, q4hr, PRN for motion sickness, X 5 day(s), # 30 supp, Refills(s) 0, Pharmacy: [facility]/pharmacy #[id number], 165, cm, 02/13/23 14:25:00 EST, Height/Length Dosing, 69.5, kg, 02/13/23 14:25:00 EST, Weight Dosing 4. Hypokalemia (E87.6: Hypokalemia) Ordered: ondansetron, 4 mg = 1 tab(s), Oral, q8hr, X 2 day(s), # 6 tab(s), Refills(s) 0, Pharmacy: [facility]/pharmacy #[id number], 165, cm, 02/13/23 14:25:00 EST, Height/Length Dosing, 69.5, kg, 02/13/23 14:25:00 EST, Weight Dosing promethazine, 12.5 mg = 1 supp, Rectal, q4hr, PRN for motion sickness, X 5 day(s), # 30 supp, Refills(s) 0, [id number], 165, cm, 02/13/23 14:25:00 EST, Height/Length Dosing, 69.5, kg, 02/13/23 14:25:00 EST, Weight Dosing 5. Elevated LFTs (R79.89: Other specified abnormal findings of blood chemistry) Ordered: ondansetron, 4 mg = 1 tab(s), Oral, q8hr, X 2 day(s), # 6 tab(s), Refills(s) 0, [id number], 165, cm, 02/13/23 14:25:00 EST, Height/Length Dosing, 69.5, kg, 02/13/23 14:25:00 EST, Weight Dosing promethazine, 12. (more content not included)... [facility] Comment on above: Result Comment: Elec [...] This test was performed at: [facility], [address] [place] [address], [id number] , [place], [facility] Comment on above: Performed By: #### [id number] #### [facility] [address] [place] [id number] Auto Diffon 02-13-2023 Basophils/100 WBC (Bld) 0.6 % Normal 0.0-2.0 [facility] Comment on above: Order Comment: Order Added by Discern Expert. Performed By: #### [id number] #### [facility] [address] [place] [id number] Basophils/Leukocytes Auto (Bld) [Pure # fraction] 0.1 E9/L Normal 0.0-0.2 [facility] Comment on above: Order Comment: Order Added by Discern Expert. Performed By: #### [id number] #### [facility] [address] [place] [id number] Eosinophils/100 WBC (Bld) 0.4 % Normal 0.0-8.0 [facility] Comment on above: Order Comment: Order Added by Discern Expert. Performed By: #### 1 [id number] #### [facility] [address] [place] [address] [id number] Eosinophils/Leukocytes Auto (Bld) [Pure # fraction] 0.0 E9/L Normal 0.0-0.5 [facility] Comment on above: Order Comment: Order Added by Discern Expert. Performed By: #### 1 [id number] #### [facility] [address] [place] [address] 51438 Lymphocytes/100 WBC (Bld) 22.3 % Normal 14.0-50.0 [facility] Comment on above: Order Comment: Order Added by Discern Expert. Performed By: #### 1 [id number] #### [facility] [address] [place] [address] 47848 Lymphocytes/Leukocytes Auto (Bld) [Pure # fraction] 1.9 E9/L Normal 1.0-4.0 [facility] Comment on above: Order Comment: Order Added by Discern Expert. Performed By: #### 1 [id number] #### [facility] [address] [place] [address] 53297 Monocytes/100 WBC (Bld) 8.5 % Normal 4.0-14.0 [facility] Comment on above: Order Comment: Order Added by Discern Expert. Performed By: #### 1 [id number] #### [facility] [address] [place] [address] Monocytes/Leukocytes Auto (Bld) [Pure # fraction] 0.7 E9/L Normal 0.2-1.0 [facility] Comment on above: Order Comment: Order Added by Discern Expert. Performed By: #### 1 [id number] #### [facility] [address] [place] [address] 51931 Neutrophils/100 WBC (Bld) 68.2 % Normal 36.0-75.0 [facility] Comment on above: Order Comment: Order Added by Discern Expert. Performed By: #### 1 [id number] #### [facility] [address] [place] [address] 96203 Neutrophils/Leukocytes Auto (Bld) [Pure # fraction] 5.7 E9/L Normal 2.0-7.5 [facility] Comment on above: Order Comment: Order Added by Discern Expert. Performed By: #### 1 [id number] #### [facility] [address] [place] [address] 03785 CBC w/ Auto Diffon 4 Erythrocyte distribution width (RBC) [Ratio] 19.0 % High 10.9-14.2 [facility] Comment on above: Performed By: #### 1 [id number], [id number] #### [facility] [address] [place] [address] 58579 Hematocrit (Bld) [Volume fraction] 36.7 % Normal 34.0-46.0 [facility] Comment on above: Performed By: #### 1 [id number], [id number] #### [facility] [address] [place] [address] 44352 Hemoglobin (Bld) [Mass/Vol] 11.9 g/dL Low 12.0-16.0 [facility] Comment on above: Performed By: #### 1 [id number], [id number] #### [facility] [address] [place] [address] MCH (RBC) [Entitic mass] 24.7 pg Low 27.0-34.0 [facility] Comment on above: Performed By: #### 1 [id number], [id number] #### [facility] [address] [place] [address] MCHC (RBC) [Mass/Vol] 32.5 g/dL Normal 31.4-36.0 [facility] Comment on above: Performed By: #### 1 3365576, [id number] #### [facility] [address] [place] [address] 79790 MCV (RBC) [Entitic vol] 75.9 fL Low 80.0-100.0 [facility] Comment on above: Performed By: #### 1 [id number], [id number] #### [facility] [address] [place] [address] 66000 Platelet mean volume (Bld) [Entitic vol] 8.7 fL Normal 6.4-10.8 [facility] Comment on above: Performed By: #### 1 [id number], [id number] #### [facility] [address] [place] [address] 19026 Platelets (Bld) [#/Vol] 326.0 E9/L Normal 150.0-500.0 [facility] Comment on above: Performed By: #### 1 [id number], [id number] #### [facility] [address] [place] [address] 53638 RBC (Bld) [#/Vol] 4.8 E12/L Normal 4.3-5.9 [facility] Comment on above: Performed By: #### 1 [id number], [id number] #### [facility] [address] [place] [address] 48928 WBC corrected for nucl RBC Auto (Bld) [#/Vol] 8.3 E9/L Normal 4.0-11.0 [facility] Comment on above: Performed By: #### 1 [id number], [id number] #### [facility] [address] [place] [address] CHEMISTRYOrdered By: SYSTEM SYSTEM on 02-13-2023 Albumin [...] 02-13-2023 Albumin [Mass/Vol] 4.2 g/dL Normal 3.3-5.0 [facility] Comment on above: Performed By: #### 1 [id number] #### [facility] [address] [place] [address] Albumin/Globulin [Mass ratio] 1.3 {ratio} Normal 1.1-2.2 [facility] Comment on above: Performed By: #### 1 [id number] #### [facility] [address] [place] [address] Alk Phos 114 Int._Unit/L High 21-98 [facility] Comment on above: Performed By: #### 1 [id number] #### [facility] [address] [place] [address] ALT 86 Int._Unit/L High 6-46 [facility] Comment on above: Performed By: #### 1 [id number] #### [facility] [address] [place] [address] Anion gap [Moles/Vol] 16 mmol/L Normal 6-16 [facility] Comment on above: Performed By: #### 1 [id number] #### [facility] [address] [place] [address] AST 51 Int._Unit/L High 5-43 [facility] Comment on above: Performed By: #### 1 [id number] #### [facility] [address] [place] [address] Bili Total 0.7 mg/dL Normal 0.0-1.1 [facility] Comment on above: Performed By: #### 1 [id number] #### [facility] [address] [place] [address] BUN/Creat Ratio 14 No Units Normal 10-20 [facility] Comment on above: Performed By: #### 1 [id number] #### [facility] [address] [place] [address] Calcium [Mass/Vol] 9.3 mg/dL Normal 8.9-11.1 [facility] Comment on above: Performed By: #### 1 [id number] #### [facility] [address] [place] [address] Chloride [Moles/Vol] 103 mmol/L Normal 101-111 [facility] Comment on above: Performed By: #### 1 [id number] #### [facility] [address] [place] [address] CO2 [Moles/Vol] 21 mmol/L Normal 21-31 [facility] Comment on above: Performed By: #### 1 7274215 #### [facility] [address] [place] [address] Creatinine [Mass/Vol] 0.5 mg/dL Normal 0.5-1.3 [facility] Comment on above: Performed By: #### 1 [id number] #### [facility] [address] [place] [address] Globulin (S) [Mass/Vol] 3.3 g/dL Normal 1.4-4.0 [facility] Comment on above: Performed By: #### 1 [id number] #### [facility] [address] [place] [address] Glucose [Mass/Vol] 84 mg/dL Normal 55-199 [facility] Comment on above: Performed By: #### 1 7400974 #### [facility] [address] [place] [address] Potassium [Moles/Vol] 3.4 mmol/L Low 3.5-5.3 [facility] Comment on above: Performed By: #### 1 5331517 #### [facility] [address] [place] [address] Protein [Mass/Vol] 7.5 g/dL Normal 6.0-7.8 [facility] Comment on above: Performed By: #### 1 0913505 #### [facility] [address] [place] [address] Sodium [Moles/Vol] 137 mmol/L Normal 135-145 [facility] Comment on above: Performed By: #### 1 [id number] #### [facility] [address] [place] [address] Urea nitrogen [Mass/Vol] 7 mg/dL Normal 5-21 [facility] Comment on above: Performed By: #### 1 3281012 #### [facility] [address] [place] [address] Consent for Treatmenton Consent for Treatment [id number] #1.00TIFF [facility] Discharge Instructionson Discharge Instructions [id number] 5#1.00TIFF [facility] ED Clinical Summaryon 2023 ED Clinical Summary [address] [address] ED Clinical Summary Person Information Name: JORDIN TYLER Kristan/[facility] Age: 18 Years : 2005 Sex: Female Language: Equ[place]ine[place] PCP: MARK STONE Marital Status: Single Phone: [phone] Visit Id: Visit Reason: Vomiting - ; [...] 02/13/2023 17:35:55 02/13/2023 17:35:55 02/13/2023 17:35:55 ADDRESS: [address] [place] [address] [address] [facility] [id number] PHYS DOC NOTES: MEDICAL INFORMATION: Prescriptions Given: New Medications [id number], [address] [place], [place] [id number], [phone] nitrofurantoin (Macrobid 100 mg Cap) 1 Capsules By Mouth 2 times a day for 5 Days. Refills: 0. Medications to Continue Taking That Have Changed [id number], [address] [place], [place] [id number], [phone] START: ondansetron (Zofran ODT 4 mg Tab-Dis) [...] INFORMATION: Instructions: Hypokalemia; Urinary Tract Infection, Adult, Mgjd-di-Dykr; Hyperemesis Gravidarum Follow up: With: Address: When: Paul CASE, [place], [address], [place] [id number] Within 2 to 4 days DIAGNOSIS: 1:Hyperemesis gravidarum; 2:; 3:UTI in ; 4:Hypokalemia; 5:Elevated LFTs [facility] Patient Education Noteon 02-13-2023 ED [...] such as yogurt. General instructions ? Take qphv-adh-nglyuap and prescription medicines only as told by [...] provider. Document Revised: 10/06/2021 Document Reviewed: 10/06/2021 [employer] Patient Education ? 2022 [employer]. Obstetrics and Gynecology Urinary Tract Infection, Adult [...] antibiotic medicines. (more content not included)... [facility] ED Patient Summaryon 024 ED Patient Summary [place] [id number] Patient Discharge Instructions Person Information Name: JORDIN TYLER Age: 18 Years Arrival Date: 02/13/2023 14:15:10 Discharge Diagnosis: 1:Hyperemesis gravidarum; 2:; 3:UTI in ; 4:Hypokalemia; 5:Elevated LFTs Primary Care Physician: MARK STONE Provider Information Primary Provider: Steven Alatorre DO Advanced Associate Curator:Monica The exam and treatment you received in the Emergency Department were for an urgent problem and are not intended as complete care. It is important that you follow up with a doctor, nurse practitioner, or physician?s assistant corporate controller for ongoing care. If your symptoms become [...] When: Paul CASE, [place], [address] [facility], [place] [address] [place] [id number] Within 2 to 4 days In the event that this physician does not participate in your insurance network, please consult with your insurance company to find a nearby participating provider. Patient Education Materials: Hypokalemia; Urinary Tract Infection, Adult, Ohpz-zb-Tped; Hyperemesis Gravidarum A MESSAGE TO ALL PATIENTS REGARDING OPIOIDS PRESCRIPTION OPIOIDS: WHAT YOU NEED TO KNOW Prescription opioids can be used to help relieve omvlczqq-ni-xbiate pain and are often prescribed following a [...] guidance from the Food and Drug Administration (www.fda.gov/Drugs/R esourcesForYou). ? Visit www.cdc.gov/drugover dose to learn about the risks of opioids abuse and overdose. ? If you believe you may be struggling with addiction, tell your health (more content not included)... [facility] HEMATOLOGYOrdered By: Ericka Rivas on 02-13-2023 Anisocytosis Ql (Bld) Present (02/13/23 2:33 PM) Normal [facility] HemeManSS Erythrocyte distribution width (RBC) [Ratio] 19.0 % High 10.9 - 14.2 % [facility] HemeAutoSS Hematocrit (Bld) [Volume fraction] 36.7 % Normal 34.0 - 46.0 % [facility]eAuto[facility] Hemoglobin (Bld) [Mass/Vol] 11.9 g/dL Low 12.0 - 16.0 gm/dL [facility] Hypochromia Auto Ql (Bld) Present (02/13/23 2:33 PM) Normal [facility]eMan[facility] MCH (RBC) [Entitic mass] 24.7 pg Low 27. 0 - 34.0 pg [facility] HemeAutoSS MCHC (RBC) [Mass/Vol] 32.5 g/dL Normal 31.4 - 36.0 gm/dL [facility]eAuto[facility] MCV (RBC) [Entitic vol] 75.9 fL Low 80.0 - 100.0 fL [facility] Microcytes Ql (Bld) Present (02/13/23 2:33 PM) Normal [facility] [place] [place] HemeManSS Morphology Cliff (Bld) [Interp] See Morphology (02/13/23 2:33 PM) Normal [facility] [place] [place] HemeManSS Ovalocytes LM Ql (Bld) Present (02/13/23 2:33 PM) Normal [facility] [place] [place] HemeManSS Platelet mean volume (Bld) [Entitic vol] 8.7 fL Normal 6.4 - 10.8 fL [facility]eAuto[facility] Platelets (Bld) [#/Vol] 326.0 E9/L Normal 150. 0 - 500.0 E9/L [facility] RBC (Bld) [#/Vol] 4.8 E12/L Normal 4.3 - 5.9 E12/L [facility] WBC corrected for nucl RBC Auto (Bld) [#/Vol] 8.3 E9/L Normal 4.0 - 11.0 E9/L [facility] HEMATOLOGYOrdered By: SYSTEM SYSTEM on 02-13-2023 Basophils/100 WBC (Bld) 0.6 % Normal 0.0 - 2.0 % [facility]eAuto[facility] Basophils/Leukocytes Auto (Bld) [Pure # fraction] 0.1 E9/L Normal 0.0 - 0.2 E9/L [facility] Eosinophils/100 WBC (Bld) 0.4 % Normal [...] 8.5 % Normal 4.0 - 14.0 % [facility]Auto[facility] Monocytes/Leukocytes Auto (Bld) [Pure # fraction] 0.7 E9/L Normal 0.2 - 1.0 E9/L [facility]eAuto[facility] Neutrophils/100 WBC (Bld) 68.2 % Normal 36.0 - 75.0 % [facility]eAuto[facility] Neutrophils/Leukocytes Auto (Bld) [Pure # fraction] 5.7 E9/L Normal 2.0 - 7.5 E9/L [facility]Auto[facility] Magnesiumon 02-13-2023 Magnesium [Mass/Vol] 1.7 mg/dL Normal 1.3-2.4 [facility] Comment on above: Performed By: #### 1 [id number] #### [facility] [address] [place] [address] Morphon 02-13-2023 Anisocytosis Ql (Bld) Present Normal [facility] Comment on above: Order Comment: Order Added by Discern Expert. Performed By: #### 1 [id number], [id number] #### [facility] [address] [place] [address] Hypochromia Auto Ql (Bld) Present [facility] Comment on above: Order Comment: Order Added by Discern Expert. Performed By: #### 1 [id number], [id number] #### [facility] [address] [place] [address] Microcytes Ql (Bld) Present Normal [facility] Comment on above: Order Comment: Order Added by Discern Expert. Performed By: #### 1 [id number], [id number] #### [facility] [address] [place] [address] Morphology Cliff (Bld) [Interp] See Morphology [facility] Comment on above: Order Comment: Order Added by Discern Expert. Performed By: #### 1 [id number], [id number] #### [facility] [address] [place] [address] Ovalocytes LM Ql (Bld) Present Normal [facility] Comment on above: Order Comment: Order Added by Discern Expert. Performed By: #### 1 [id number], 6507086 #### [facility] [address] [place] [address] UA With Cult Reflexon 2023 Bacteria LM Ql (Urine sed) 2+ /HPF Abnormal Trace [facility] Comment on above: Performed By: #### 2 [id number], [id number] #### [facility] [address] [place] [address] Bilirubin Ql (U) 2+ Abnormal Negative [facility] Comment on above: Performed By: #### 2 917780, [id number] #### [facility] [address] [place] [address] Clarity (U) CLEAR Normal Clear [facility] Comment on above: Performed By: #### 2 126219, 13101254 #### [facility] [address] [place] [address] Color (U) DARK YELLO Abnormal Yellow [facility] Comment on above: Performed By: #### 2 260484, [id number] #### [facility] [address] [place] [address] Epithelial cells.squamous LM.HPF (Urine sed) [#/Area] 5-8 Normal 0-2 [facility] Comment on above: Performed By: #### 2 285483, [id number] #### [facility] [address] [place] [address] Glucose Test strip (U) [Mass/Vol] Negative Normal Negative [facility] Comment on above: Performed By: #### 2 609846, [id number] #### [facility] [address] [place] [address] Hemoglobin Ql (U) Negative Normal Negative [facility] Comment on above: Performed By: #### 2 796514, [id number] #### [facility] [address] [place] [address] Ketones (U) [Mass/Vol] 3+ Abnormal Negative [facility] Comment on above: Performed By: #### 2 845976, 10098641 #### [facility] [address] [place] [address] Hazard.plasma/Hazard.R BC (Bld) [Mass ratio] 4-20 Normal 0-3 [facility] Comment on above: Performed By: #### 2 664632, 44712683 #### [facility] [address] [place] [address] Mucus Ql (Urine sed) 2+ Normal [facility] Comment on above: Performed By: #### 2 131371, [id number] #### [facility] [address] [place] [address] Nitrite Ql (U) Negative Normal Negative [facility] Comment on above: Performed By: #### 2 843261, [id number] #### [facility] [address] [place] [address] pH (U) 6.0 [pH] Invalid Interpretation Code 5.0-9.0 [facility] Comment on above: Performed By: #### 2 465078, [id number] #### [facility] [address] [place] [address] Protein (U) [Mass/Vol] 1+ Abnormal Negative [facility] Comment on above: Performed By: #### 2 968262, [id number] #### [facility] [address] [place] [address] Specific gravity (U) [Rel density] >=1.030 Invalid Interpretation Code 1.005-1.030 [facility] Comment on above: Performed By: #### 2 309357, [id number] #### [facility] [address] [place] [address] Type of Urine collection method Clean Catch [facility] Comment on above: Performed By: #### 2 623274, [id number] #### [facility] [address] [place] [address] Urobilinogen Qn (U) 2.0 {Karri'U}/dL Abnormal 0.0-1.0 [facility] Comment on above: Performed By: #### 2 621840, 70488123 #### [facility] [address] [place] [address] WBC Auto Ql (U) 1+ Abnormal Negative [facility] Comment on above: Performed By: #### 2 785007, [id number] #### [facility] [address] [place] [address] WBC LM.HPF (Urine sed) [#/Area] 6-15 Abnormal 0-5 [facility] Comment on above: Performed By: #### 2 210882, [id number] #### [facility] [address] [place] [address] URINALYSISOrdered By: Maranda Muñoz on 02-13-2023 Bacteria LM Ql (Urine sed) 2+ /HPF Invalid Interpretation Code Trace/HPF [facility] [place] [place] UA Auto SS Bilirubin Ql (U) 2+ *ABN* (02/13/23 2:30 PM) Invalid Interpretation Code Negative [facility] UA Auto SS Clarity (U) Clear (02/13/23 2:30 PM) Normal Clear [facility] UA Auto SS Color (U) Dark Yellow *ABN* (02/13/23 2:30 PM) Invalid Interpretation Code Yellow [facility] [place] [place] UA Auto SS Epithelial cells.squamous LM.HPF (Urine sed) [#/Area] 5-8 /HPF Normal 0-2/HPF [facility] UA Aut o SS Glucose Test strip (U) [Mass/Vol] Negative (02/13/23 2:30 PM) Normal Negative [facility] UA Auto SS Hemoglobin Ql (U) Negative (02/13/23 2:30 PM) Normal Negative [facility] UA Auto SS Ketones (U) [Mass/Vol] 3+ *ABN* (02/13/23 2:30 PM) Invalid Interpretation Code Negative [facility] UA Auto SS Hazard.plasma/Hazard.R BC (Bld) [Mass ratio] 4-20 /HPF Normal [...] Desc Clean Catch (02/13/23 2:30 PM) Normal [facility] UA Auto SS Urobilinogen Qn (U) 2.2750229 {Karri'U}/dL Invalid Interpretation Code 0.0 - 1.0 EU/dL [facility] UA Auto SS WBC Auto Ql (U) 1+ *ABN* (02/13/23 2:30 PM) Invalid Interpretation Code Negative [facility] UA Auto SS WBC LM.HPF (Urine sed) [#/Area] 6-15 /HPF Invalid Interpretation Code 0-5/HPF [facility] UA Auto SS eGFRon 02-13-2023 GFR/1.73 sq M.predicted among non-blacks MDRD (S/P/Bld) [Vol rate/Area] mL/min/{1.73_m2} Normal >=59 [facility] Comment on above: Order Comment: Order added by Discern Expert. Performed By: #### 1 [id number] #### [facility] [address] [place] [address] C Urineon 01-28-2023 Bacteria identified Cx Nom (U) Microbiology PROCEDURE: Urine Culture [R1] SOURCE: U CleanCatch BODY SITE: COLLECTED DATE/TIME: 01/26/2023 20:39 EST RECEIVED DATE/TIME: 01/26/2023 20:55 EST START DATE/TIME: 01/26/2023 20:55 EST FREE TEXT SOURCE: Donavan Lawson PA-C. Donavan Lawson PA-C. FINAL REPORTS Final Report [] Verified Date/Time: 01/28/2023 07:52 EST 1,000 cfu/ml Mixed skin contaminants Performing Locations R1: This test was performed at: [facility], [address] [place] [address], [address] , [place], [facility] Comment on above: Performed By: #### 1 [id number] #### [facility] [address] [place] [address] ED Note-Physicianon 01-28-20 ED Note-Physician Basic Information Time Seen: Donavan Lawson PA-C. 01/26/2023 19:10 Chief Complaint pt states that [...] weeks . Reports he does follow-up with [facility]. Denies any fevers or chills. States that [...] and Complexity of Problems Differential Diagnosis: [] [facility] Data External documents reviewed: [] My EKG [...] greatly improve her symptoms. Discussed follow-up with [facility]. Patient was understanding. Follow-up with your primary [...] patient has documented intrauterine ) [MIPS PERFORMANCE EXCEPTION/EXCLUSION] [ ] The patient is pregant and [...] STAT, Start date 01/26/23 19:21:00 EST, 01/26/23 19::00 EST metoclopramide, 5 mg = 1 tab(s), [...] Blue Tube (more content not included)... [facility] Comment on above: Result Comment: Elec tronically Signed By: Donavan Lawson PA-C\.br\Date and Time Signed: 01/26/23 21:46 EST\.br\Electronically Co-Signed By: Damaris Jean Baptiste DO\.br\Date and Time Co-Signed: 01/27/23 01:31 EST ABO/Rhon 01-26-2023 ABO/Rh Positive Invalid Interpretation Code [facility] Comment on above: Performed By: #### 2 [id number] ####[place] [address] [place] [address] Auto Diffon 01-26-2023 Basophils/100 WBC (Bld) 0.4 % Normal 0.0-2.0 [facility] Comment on above: Order Comment: Order Added by Discern Expert. Performed By: #### 1 [id number] #### [facility] [address] [place] [address] Basophils/Leukocytes Auto (Bld) [Pure # fraction] 0.0 E9/L Normal 0.0-0.2 [facility] Comment on above: Order Comment: Order Added by Discern Expert. Performed By: #### 1 [id number] #### [facility] [address] [place] [address] Eosinophils/100 WBC (Bld) 0.5 % Normal 0.0-8.0 [facility] Comment on above: Order Comment: Order Added by Discern Expert. Performed By: #### 1 [id number] #### [facility] [address] [place] [address] Eosinophils/Leukocytes Auto (Bld) [Pure # fraction] 0.0 E9/L Normal 0.0-0.5 [facility] Comment on above: Order Comment: Order Added by [place] Expert. Performed By: #### 1 [id number] #### [facility] [address] [place] [address] Lymphocytes/100 WBC (Bld) 21.8 % Normal 14.0-50.0 [facility] Comment on above: Order Comment: Order Added by Discern Expert. Performed By: #### 1 [id number] #### [facility] [address] [place] [address] Lymphocytes/Leukocytes Auto (Bld) [Pure # fraction] 1.7 E9/L Normal 1.0-4.0 [facility] Comment on above: Order Comment: Order Added by Discern Expert. Performed By: #### 1 [id number] #### [facility] [address] [place] [address] Monocytes/100 WBC (Bld) 7.4 % Normal 4.0-14.0 [facility] Comment on above: Order Comment: Order Added by Discern Expert. Performed By: #### 1 [id number] #### [facility] [address] [place] [address] Monocytes/Leukocytes Auto (Bld) [Pure # fraction] 0.6 E9/L Normal 0.2-1.0 [facility] Comment on above: Order Comment: Order Added by Discern Expert. Performed By: #### 1 [id number] #### [facility] [address] [place] [address] Neutrophils/100 WBC (Bld) 69.9 % Normal 36.0-75.0 [facility] Comment on above: Order Comment: Order Added by Discern Expert. Performed By: #### 1 [id number] #### [facility] [address] [place] [address] Neutrophils/Leukocytes Auto (Bld) [Pure # fraction] 5.3 E9/L Normal 2.0-7.5 [facility] Comment on above: Order Comment: Order Added by Discern Expert. Performed By: #### 1 [id number] #### [facility] [address] [place] [address] BLOOD BANKOrdered By: Ericka Rivas on 01-26-2023 ABO/Rh Interp Positive Invalid Interpretation Code [facility] [place] [place] BB Subsection BMPon 01-26-2023 Anion gap [Moles/Vol] 16 mmol/L Normal 6-16 [facility] Comment on above: Performed By: #### 1 [id number] #### [facility] [address] [place] [address] BUN/Creat Ratio 17 No Units Normal 10-20 [facility] Comment on above: Performed By: #### 1 [id number] #### [facility] [address] [place] [address] Calcium [Mass/Vol] 9.5 mg/dL Normal 8.9-11.1 [facility] Comment on above: Performed By: #### 1 [id number] #### [facility] [address] [place] [address] Chloride [Moles/Vol] 103 mmol/L Normal 101-111 [facility] Comment on above: Performed By: #### 1 [id number] #### [facility] [address] [place] [address] CO2 [Moles/Vol] 21 mmol/L Normal 21-31 [facility] Comment on above: Performed By: #### 1 [id number] #### [facility] [address] [place] [address] Creatinine [Mass/Vol] 0.6 mg/dL Normal 0.5-1.3 [facility] Comment on above: Performed By: #### 1 [id number] #### [facility] [address] [place] [address] Glucose [Mass/Vol] 79 mg/dL Normal 55-199 [facility] Comment on above: Performed By: #### 1 [id number] #### [facility] Laboratory [address] [place] [address] Potassium [Moles/Vol] 3.6 mmol/L Normal 3.5-5.3 [facility] Comment on above: Performed By: #### 1 [id number] #### [facility] [address] [place] [address] Sodium [Moles/Vol] 136 mmol/L Normal 135-145 [facility] Comment on above: Performed By: #### 1 [id number] #### [facility] [address] [place] [address] Urea nitrogen [Mass/Vol] 10 mg/dL Normal 5-21 [facility] Comment on above: Performed By: #### 1 [id number] #### [facility] [address] [place] [address] BhCG Quanton 01-26-2023 Beta hCG Qnt 185801 mIU/mL High 1-3 [facility] Comment on above: Result Comment: 'F N ON < 1 - 3' ' 0.2 - 1 WEEK = 5 TO 50' ' 1 - 2 WEEKS = 50 - 500' ' 2 - 3 WEEKS = 100 - 5000' ' 3 - 4 WEEKS = 500 - 61858' ' 4 - 5 WEEKS = 1000 - 31674' ' 5 - 6 WEEKS = 45828 - 466602' ' 6 - 8 WEEKS = 85343 - 255729' ' 8 - 12 WEEKS = 09501 - 980374' Performed By: #### 1 [id number] #### [facility] [address] [place] [address] CBC w/ Auto Diffon 3 Erythrocyte distribution width (RBC) [Ratio] 18.0 % High 10.9-14.2 [facility] Comment on above: Performed By: #### 1 [id number] #### [facility] [address] [place] [address] Hematocrit (Bld) [Volume fraction] 35.9 % Normal 34.0-46.0 [facility] Comment on above: Performed By: #### 1 [id number] #### [facility] [address] [place] [address] Hemoglobin (Bld) [Mass/Vol] 11.8 g/dL Low 12.0-16.0 [facility] Comment on above: Performed By: #### 1 [id number] #### [facility] [address] [place] [address] MCH (RBC) [Entitic mass] 24.1 pg Low 27.0-34.0 [facility] Comment on above: Performed By: #### 1 [id number] #### [facility] [address] [place] [address] MCHC (RBC) [Mass/Vol] 32.8 g/dL Normal 31.4-36.0 [facility] Comment on above: Performed By: #### 1 [id number] #### [facility] [address] [place] [address] MCV (RBC) [Entitic vol] 73.6 fL Low 80.0-100.0 [facility] Comment on above: Performed By: #### 1 [id number] #### [facility] [address] [place] [address] Platelet mean volume (Bld) [Entitic vol] 8.4 fL Normal 6.4-10.8 [facility] Comment on above: Performed By: #### 1 [id number] #### [facility] [address] [place] [address] Platelets (Bld) [#/Vol] 304.0 E9/L Normal 150.0-500.0 [facility] Comment on above: Performed By: #### 1 4454038 #### [facility] [address] [place] [address] RBC (Bld) [#/Vol] 4.9 E12/L Normal 4.3-5.9 [facility] Comment on above: Performed By: #### 1 1197245 #### [facility] [address] [place] [address] WBC corrected for nucl RBC Auto (Bld) [#/Vol] 7.6 E9/L Normal 4.0-11.0 [facility] Comment on above: Performed By: #### 1 [id number] #### [facility] [address] [place] [address] CHEMISTRYOrdered By: SYSTEM SYSTEM on 01-26-2023 Anion [...] 199 mg/dL Remisol Chem HCG.beta subunit Qn 426326 m[IU]/mL High 1 - 3 mIU/m L [facility] Comment on above: Result Comment: 'F N ON < 1 - 3' ' 0.2 - 1 WEEK = 5 TO 50' ' 1 - 2 WEEKS = 50 - 500' ' 2 - 3 WEEKS = 100 - 5000' ' 3 - 4 WEEKS = 500 - 01439' ' 4 - 5 WEEKS = 1000 - 89581' ' 5 - 6 WEEKS = 14723 - 681896' ' 6 - 8 WEEKS = 58665 - 536881' ' 8 - 12 WEEKS = 23303 - 774334' Potassium [Moles/Vol] 3.6 mmol/L Normal 3.5 - 5.3 mmol/L Remisol Chem Sodium [Moles/Vol] 136 mmol/L Normal 135 - 145 mmol/L Remisol Chem Urea nitrogen [Mass/Vol] 10 mg/dL Normal 5 - 21 mg/d L Remisol Chem Urea nitrogen/Creatinine [Mass ratio] 17 mg/mg Normal 10 - 20 Remisol Chem Consent for Treatmenton 01-06 Consent for Treatment [id number] #1.00TIFF [facility] Discharge Instructionson Discharge Instructions [id number] 9#1.00TIFF [facility] ED Clinical Summaryon 2022 ED Clinical Summary [place] [id number] ED Clinical Summary Person Information Name: JORDIN TYLER Kristan/[facility] Age: 18 Years : 2005 Sex: Female Language: Equ[place]inean PCP: MARK STONE Marital Status: Single Phone: [phone] Visit Id: Visit Reason: Abdominal pain - [...] 01/26/2023 21:19:18 ADDRESS: [address] [id number] PHYS DOC NOTES: MEDICAL INFORMATION: Prescriptions Given: [...] Instructions: Morning Sickness; Nausea and Vomiting, Adult, Kpdf-rd-Meds Follow up: With: Address: When: [facility] [place] [address], [place] [id number] [facility] (1) In 3 days 01/29/2023 Comments: Follow-up with your primary care provider in 3 to 5 days. If symptoms worsen, do not improve, or new symptoms arise please report back to emergency department for further evaluation. With: Address: When: [employer] In 3 days DIAGNOSIS: Nausea and vomiting during [facility] ED Patient Education Noteon 01-26-2023 ED Patient [...] ? Low-calorie sports drinks. ? Eat bland, imyx-si-btmowz foods in small amounts as you are able, such as: ? Bananas. ? Applesauce. ? Rice. ? Low-fat (lean) meats. ? [place]. ? Crackers. ? Avoid drinking fluids that have a lot of sugar or caffeine in them. This includes energy drinks, sports drinks, and soda. ? Avoid alcohol. ? Avoid spicy or fatty foods. General instructions ? Take ywcb-mvx-xrtobpm and prescription medicines only as told by your doctor. ? Drink enough fluid to keep your pee (urine) pale yellow. ? Wash your hands often with soap and water for at least 20 seconds. If you cannot use soap and water, use hand shell mold bonding machine operator. ? Make sure that everyone in your [...] doctor about eating and drinking. ? Take jicg-gfx-hrmsdsl and prescription medicines only as told by your doctor. ? Contact your doctor if your symptoms get worse or you have new symptoms. ? Keep all follow-up visits. This information is not intended to replace advice given to you by your health care provider. Make sure you discuss any questions you have with your health care provider. Document Revised: 07/29/2021 Document Reviewed: 07/29/2021 [employer] Patient Education ? 2022 [employer]. Obstetrics and Gynecology Morning Sickness Morning sickness [...] condition i (more content not included)... [facility] Patient Summaryon 023 ED Patient Summary [address] [address] Patient Discharge Instructions Person Information Name: JORDIN TYLER Age: 18 Years Arrival Date: 01/26/2023 19:05:49 Discharge Diagnosis: Nausea and vomiting during Primary Care Physician: MARK STONE Provider Information Primary Provider: Damaris Jean Baptiste DO Advanced Associate Curator:None The exam and treatment you received in the Emergency Department were for an urgent problem and are not intended as complete care. It is important that you follow up with a doctor, nurse practitioner, or physician?s assistant corporate controller for ongoing care. If your symptoms become worse or you do not improve as expected and you are unable to reach your usual health care provider, you should return to the Emergency Department. We are available 24 hours a day. JORDIN TYLER has been given the following list of patient education materials, prescriptions and follow-up instructions: Follow-up Instructions: With: Address: When: Ras Miller [address] [place] [address] Business (1) In 3 days 01/29/2023 Comments: Follow-up with your primary care provider in 3 to 5 days. If symptoms worsen, do not improve, or new symptoms arise please report back to emergency department for further evaluation. With: Address: When: [employer] In 3 days In the event that this physician does not participate in your insurance network, please consult with your insurance company to find a nearby participating provider. Patient Education Materials: Morning Sickness; Nausea and Vomiting, Adult, Ghot-ne-Jhfy A MESSAGE TO ALL PATIENTS REGARDING OPIOIDS PRESCRIPTION OPIOIDS: WHAT YOU NEED TO KNOW Prescription opioids can be used to help relieve udviymiz-dt-ebywjq pain and are often prescribed following a [...] guidance from the Food and Drug Administration (www.fda.gov/Drugs/R eso (more content not included)... [facility] HEMATOLOGYOrdered By: SYSTEM SYSTEM on 01-26-2023 [...] 35.9 % Normal 34.0 - 46.0 % [facility] HemeAutoSS Hemoglobin (Bld) [Mass/Vol] 11.8 g/dL Low 12.0 - 16.0 gm/dL [facility] HemeAutoSS MCH (RBC) [Entitic mass] 24.1 pg Low 27. 0 - 34.0 pg [facility] HemeAutoSS MCHC (RBC) [Mass/Vol] 32.8 g/dL Normal 31.4 - 36.0 gm/dL [facility] HemeAutoSS MCV (RBC) [Entitic vol] 73.6 fL Low 80.0 - 100.0 fL [facility] HemeAutoSS Platelet mean volume (Bld) [Entitic vol] 8.4 fL Normal 6.4 - 10.8 fL [facility] HemeAutoSS Platelets (Bld) [#/Vol] 304.0 E9/L Normal 150. 0 - 500.0 E9/L [facility] HemeAutoSS RBC (Bld) [#/Vol] 4.9 E12/L Normal 4.3 - 5.9 E12/L [facility] HemeAutoSS WBC corrected for nucl RBC Auto (Bld) [#/Vol] 7.6 E9/L Normal 4.0 - 11.0 E9/L [facility] HemeAutoSS UA With Cult Reflexon 2022 Bacteria LM Ql (Urine sed) TRACE Normal Trace [facility] Comment on above: Performed By: #### 1 [id number] #### [facility] [address] [place] [address] Bilirubin Ql (U) Negative Normal Negative [facility] Comment on above: Performed By: #### 1 [id number] #### [facility] [address] [place] [address] Clarity (U) CLEAR Normal Clear [facility] Comment on above: Performed By: #### 1 [id number] #### [facility] [address] [place] [address] Color (U) YELLOW Normal Yellow [facility] Comment on above: Performed By: #### 1 [id number] #### [facility] [address] [place] [address] Epithelial cells.squamous LM.HPF (Urine sed) [#/Area] 5-8 Normal 0-2 [facility] Comment on above: Performed By: #### 1 [id number] #### [facility] [address] [place] [address] Glucose Test strip (U) [Mass/Vol] Negative Normal Negative [facility] Comment on above: Performed By: #### 1 [id number] #### [facility] [address] [place] [address] Hemoglobin Ql (U) Negative Normal Negative [facility] Comment on above: Performed By: #### 1 10359730 #### [facility] [address] [place] [address] Ketones (U) [Mass/Vol] 3+ Abnormal Negative [facility] Comment on above: Performed By: #### 1 [id number] #### [facility] [address] [place] [address] Hazard.plasma/Hazard.R BC (Bld) [Mass ratio] 0-3 Normal 0-3 [facility] Comment on above: Performed By: #### 1 [id number] #### [facility] [address] [place] [address] Mucus Ql (Urine sed) TRACE Normal [facility] Comment on above: Performed By: #### 1 [id number] #### [facility] [address] [place] [address] Nitrite Ql (U) Negative Normal Negative [facility] Comment on above: Performed By: #### 1 [id number] #### [facility] [address] [place] [address] pH (U) 6.0 [pH] Invalid Interpretation Code 5.0-9.0 [facility] Comment on above: Performed By: #### 1 [id number] #### [facility] [address] [place] [address] Protein (U) [Mass/Vol] TRACE Abnormal Negative [facility] Comment on above: Performed By: #### 1 [id number] #### [facility] [address] [place] [address] Specific gravity (U) [Rel density] >=1.030 Invalid Interpretation Code 1.005-1.030 [facility] Comment on above: Performed By: #### 1 [id number] #### [facility] [address] [place] [address] Type of Urine collection method Clean Catch [facility] Comment on above: Performed By: #### 1 [id number] #### [facility] [address] [place] [address] Urobilinogen Qn (U) 0.2 {Karri'U}/dL Normal 0.0-1.0 [facility] Comment on above: Performed By: #### 1 32084339 #### [facility] [address] [place] [address] WBC Auto Ql (U) Negative Normal Negative [facility] Comment on above: Performed By: #### 1 [id number] #### [facility] [address] [place] [address] WBC LM.HPF (Urine sed) [#/Area] 6-15 Abnormal 0-5 [facility] Comment on above: Performed By: #### 1 [id number] #### [facility] [address] [place] [address] URINALYSISOrdered By: Raman Trejo on 01-26-2023 Bacteria LM Ql (Urine sed) Trace /HPF Normal Trace/HPF [facility] [place] [place] UA Auto SS Bilirubin Ql (U) Negative (01/26/23 8:39 PM) Normal Negative [facility] UA Auto SS Clarity (U) Clear (01/26/23 8:39 PM) Normal Clear [facility] UA Auto SS Color (U) Yellow (01/26/23 8:39 PM) Normal Yellow [facility] UA Auto SS [...] Interpretation Code Negative [facility] UA Auto SS Hazard.plasma/Hazard.R BC (Bld) [Mass ratio] 0-3 /HPF Normal [...] [facility] UA Auto SS Urobilinogen Qn (U) 0.9979726 {Karri'U}/dL Normal 0.0 - 1.0 EU/dL [facility] UA Auto SS WBC Auto Ql (U) Negative (01/26/23 8:39 PM) Normal Negative [facility] UA Auto SS WBC LM.HPF (Urine sed) [#/Area] 6-15 /HPF Invalid Interpretation Code 0-5/HPF [facility] UA Auto SS eGFRon 12-22-2023 GFR/1.73 sq M.predicted among non-blacks MDRD (S/P/Bld) [Vol rate/Area] mL/min/{1.73_m2} Normal >=59 [facility] Comment on above: Order Comment: Order added by Discern Expert. Performed By: #### 1 [id number] #### [facility] [address] [place] [address] Auto Diffon 01-23-2023 Basophils/100 WBC (Bld) 0.5 % Normal 0.0-2.0 [facility] Comment on above: Order Comment: Order Added by Barrington Expert. Performed By: #### 1 6408438, [id number] #### [facility] [address] [place] [address] Basophils/Leukocytes Auto (Bld) [Pure # fraction] 0.0 E9/L Normal 0.0-0.2 [facility] Comment on above: Order Comment: Order Added by Barrington Expert. Performed By: #### 1 0801239, 2598540 #### [facility] [address] [place] [address] Eosinophils/100 WBC (Bld) 0.7 % Normal 0.0-8.0 [facility] Comment on above: Order Comment: Order Added by Barrington Expert. Performed By: #### 1 2468703, 2997876 #### [facility] [address] [place] [address] Eosinophils/Leukocytes Auto (Bld) [Pure # fraction] 0.0 E9/L Normal 0.0-0.5 [facility] Comment on above: Order Comment: Order Added by Barrington Expert. Performed By: #### 1 9607400, 1535408 #### [facility] [address] [place] [address] Lymphocytes/100 WBC (Bld) 21.4 % Normal 14.0-50.0 [facility] Comment on above: Order Comment: Order Added by Barrington Expert. Performed By: #### 1 5079168, 7185092 #### [facility] [address] [place] [address] Lymphocytes/Leukocytes Auto (Bld) [Pure # fraction] 1.3 E9/L Normal 1.0-4.0 [facility] Comment on above: Order Comment: Order Added by Discern Expert. Performed By: #### 1 3466993, 4926565 #### [facility] [address] [place] [address] Monocytes/100 WBC (Bld) 7.4 % Normal 4.0-14.0 [facility] Comment on above: Order Comment: Order Added by Discern Expert. Performed By: #### 1 7299162, 0941780 #### [facility] [address] [place] [address] Monocytes/Leukocytes Auto (Bld) [Pure # fraction] 0.4 E9/L Normal 0.2-1.0 [facility] Comment on above: Order Comment: Order Added by Discern Expert. Performed By: #### 1 9247441, 1849728 #### [facility] [address] [place] [address] Neutrophils/100 WBC (Bld) 70.0 % Normal 36.0-75.0 [facility] Comment on above: Order Comment: Order Added by Discern Expert. Performed By: #### 1 4216859, 1609305 #### [facility] [address] [place] [address] Neutrophils/Leukocytes Auto (Bld) [Pure # fraction] 4.2 E9/L Normal 2.0-7.5 [facility] Comment on above: Order Comment: Order Added by Discern Expert. Performed By: #### 1 0578152, 0417768 #### [facility] [address] [place] [address] B hCG Qualon 01-23-2023 Beta HCG ( test) Ql Positive [facility] Comment on above: Performed By: #### 2 873677, 26690279, 4408350, 1353346, 47052380, 6288738, 5630977, 3052737, 68674646 ####[facility] [address] [place] [address] BMPon 01-23-2023 Anion gap [Moles/Vol] 14 mmol/L Normal 6-16 [facility] Comment on above: Performed By: #### 2 161113, 46245657, 1398312, 6976974, 07281203, 3317834, 3068940, 5732191, 98771506 ####[facility] [address] [place] [address] BUN/Creat Ratio 18 No Units Normal 10-20 [facility] Comment on above: Performed By: #### 2 977392, 38026876, 0970538, 6812426, 24158395, 7963837, 2012206, 7492722, 31005816 ####[facility] [address] [place] [address] Calcium [Mass/Vol] 9.3 mg/dL Normal 8.9-11.1 [facility] Comment on above: Performed By: #### 2 234649, 85719953, 2697997, 1792443, 09150113, 0364582, 3413215, 6082773, 22655555 ####[facility] [address] [place] [address] Chloride [Moles/Vol] 103 mmol/L Normal 101-111 [facility] Comment on above: Performed By: #### 2 098099, 66391506, 9341517, 3937343, 80962818, 3587617, 7757340, 8707148, 62024220 ####[facility] [address] [place] [address] CO2 [Moles/Vol] 23 mmol/L Normal 21-31 [facility] Comment on above: Performed By: #### 2 787405, 45841073, 6967461, 2798668, 96796352, 8885930, 8030340, 1011204, 98483849 ####[facility] [address] [place] [address] Creatinine [Mass/Vol] 0.6 mg/dL Normal 0.5-1.3 [facility] Comment on above: Performed By: #### 2 531050, 05970982, 4201530, 9796080, 37131217, 8461108, 2255408, 6500550, 35087080 ####[facility] [address] [place] [address] Glucose [Mass/Vol] 84 mg/dL Normal 55-199 [facility] Comment on above: Performed By: #### 2 074881, 35236442, 6318937, 3090357, 52538320, 0392266, 2819620, 5098862, 85050295 ####[facility] [address] [place] [address] Potassium [Moles/Vol] 3.5 mmol/L Normal 3.5-5.3 [facility] Comment on above: Performed By: #### 2 912865, 04040291, 7594987, 9183594, 68024308, 0600102, 5174076, 8203728, 71763189 ####[facility] [address] [place] [address] Sodium [Moles/Vol] 136 mmol/L Normal 135-145 [facility] Comment on above: Performed By: #### 2 581834, 55776263, 6726271, 4359071, 22417582, 3298369, 5471712, 4245810, 44384083 ####[facility] [address] [place] [address] Urea nitrogen [Mass/Vol] 11 mg/dL Normal 5-21 [facility] Comment on above: Performed By: #### 2 894692, 56958257, 5076982, 4590709, 91332812, 0548385, 0740592, 5925484, 94000980 ####[facility] [address] [place] [address] BhCG Quanton 01-23-2023 [place] Qnt 47582 mIU/mL High 1-3 [facility] Comment on above: Result Comment: 'F N ON < 1 - 3' ' 0.2 - 1 WEEK = 5 TO 50' ' 1 - 2 WEEKS = 50 - 500' ' 2 - 3 WEEKS = 100 - 5000' ' 3 - 4 WEEKS = 500 - 28608' ' 4 - 5 WEEKS = 1000 - 87594' ' 5 - 6 WEEKS = 28202 - 742500' ' 6 - 8 WEEKS = 57714 - 392688' ' 8 - 12 WEEKS = 48889 - 069532' Performed By: #### 1 0439946, 2763824 #### [facility] [address] [place] [address] CBC w/ Auto Diffon 3 Erythrocyte distribution width (RBC) [Ratio] 17.6 % High 10.9-14.2 [facility] Comment on above: Performed By: #### 2 680562, 28457218, 4013906, 7934465, 22222417, 3077226, 1572143, 2307998, 15657185 ####[facility] [address] [place] [address] Hematocrit (Bld) [Volume fraction] 33.9 % Low 34.0-46.0 [facility] Comment on above: Performed By: #### 2 756092, 02501069, 1644049, 0459960, 29197812, 7061667, 2987293, 9175329, 75796443 ####[facility] [address] [place] [address] Hemoglobin (Bld) [Mass/Vol] 11.3 g/dL Low 12.0-16.0 [facility] Comment on above: Performed By: #### 2 889101, 56008039, 5466727, 9539039, 48431426, 0271267, 4570579, 5316451, 50209774 ####[facility] [address] [place] [address] MCH (RBC) [Entitic mass] 24.5 pg Low 27.0-34.0 [facility] Comment on above: Performed By: #### 2 627488, 67914259, 7017092, 0834106, 77757109, 0253288, 5897638, 9874380, 54874246 ####[facility] [address] [place] [address] MCHC (RBC) [Mass/Vol] 33.3 g/dL Normal 31.4-36.0 [facility] Comment on above: Performed By: #### 2 581981, 02983425, 7062959, 3838974, 23918410, 5846653, 9774958, 3851419, 19727907 ####[address] [address] MCV (RBC) [Entitic vol] 73.6 fL Low 80.0-100.0 [facility] Comment on above: Performed By: #### 2 083412, 12886180, 0297175, 4357206, 41659567, 2589777, 1488905, 4419936, 23141677 ####[address] [address] Platelet mean volume (Bld) [Entitic vol] 8.1 fL Normal 6.4-10.8 [facility] Comment on above: Performed By: #### 2 926925, 85641601, 3725010, 6060946, 03651577, 6570848, 4317102, 4541032, 22686474 ####[address] [address] Platelets (Bld) [#/Vol] 306.0 E9/L Normal 150.0-500.0 [facility] Comment on above: Performed By: #### 2 617064, 64323866, 8081601, 5726843, 02674299, 4696160, 3424806, 1329506, 57886956 ####[address] [address] RBC (Bld) [#/Vol] 4.6 E12/L Normal 4.3-5.9 [facility] Comment on above: Performed By: #### 2 872641, 58182148, 8217737, 9700242, 57662647, 7434409, 6726889, 4061111, 02768056 ####[facility] [address] [place] [address] WBC corrected for nucl RBC Auto (Bld) [#/Vol] 6.0 E9/L Normal 4.0-11.0 [facility] Comment on above: Performed By: #### 2 898399, 88049605, 2846632, 2961161, 28780033, 5709148, 5579958, 3970300, 17141604 ####[facility] [address] [place] [address] CHEMISTRYOrdered By: SYSTEM SYSTEM on 01-23-2023 Albumin [...] 199 mg/[place] [address] m[IU]/mL High 1 - 3 mIU/mL [facility] Comment on above: Result Comment: 'F N ON < 1 - 3' ' 0.2 - 1 WEEK = 5 TO 50' ' 1 - 2 WEEKS = 50 - 500' ' 2 - 3 WEEKS = 100 - 5000' ' 3 - 4 WEEKS = 500 - 57899' ' 4 - 5 WEEKS = 1000 - 98567' ' 5 - 6 WEEKS = 34804 - 981126' ' 6 - 8 WEEKS = 93821 - 870233' ' 8 - 12 WEEKS = 63463 - 741661' Lipase Lvl 10 unit/L Low 13 - [...] for Treatmenton 01-05 Consent for Treatment [id number] 31 [id number] #1.00TIFF [facility] Discharge Instructionson Discharge Instructions [id number] 120 [id number] #1.00TIFF [facility] Clinical Summaryon 2022 ED Clinical Summary [address] [address] ED Clinical Summary Person Information Name: JORDIN TYLER Kristan/[place] Age: 18 Years : 2005 Sex: Female Language: Equ[place] PCP: MARK STONE Marital Status: Single Phone: [phone] Visit Id: Visit Reason: Dizziness; Nausea; N/V [...] 01/23/2023 17:56:52 01/23/2023 17:56:52 01/23/2023 17:56:52 ADDRESS: [address] [id number] PHYS DOC NOTES: MEDICAL INFORMATION: Prescriptions Given: [...] Follow up: With: Address: When: Ras Miller [address] [place] [address] [address], [place] [address] Business (1) In 3 days 01/26/2023 DIAGNOSIS: Nausea/vomiting in [facility] ED Note-Physicianon 01-24-20 ED Note-Physician Basic [...] sent for ultrasound which was discussed with metallurgical lab technician. Intrauterine measuring 6 weeks, 5 days, heart rate 125. No gross abnormality. Patient was treated here with 2 L of IV fluid and antiemetics. Repeat evaluation of vomiting has been controlled patient taking oral hydration well. No abnormal vaginal discharge or bleeding. She started on nausea medication, vitamins and discharged home with BRAIDER TENDER follow-up. Patient was encouraged to return to [...] Miller In 3 days 01/26/2023 EST [address], [address] [place] [address]- Business (1) Additional Instructions: Patient Education Nausea and Vomiting, Adult Attestation Patient seen and evaluated by the physician assistant corporate controller. Attending physician was present in the emergency department and supervised care. This visit was performed by both the physician and an APC. I performed all aspects of the M (more content not included)... [facility] Comment on above: Result Comment: Elec [...] added (diluted fruit juice). ? Eat bland, pwhq-pq-hsojkj foods in small amounts as you are able. These foods include bananas, applesauce, rice, lean meats, toast, and crackers. ? Avoid fluids that contain a lot of sugar or caffeine, such as energy drinks, sports drinks, and soda. ? Avoid alcohol. ? Avoid spicy or fatty foods. General instructions ? Take sofw-oqg-emcnzxc and prescription medicines only as told by your health care provider. ? Drink enough fluid to keep your urine pale yellow. ? Wash your hands often using soap and water for at least 20 seconds. If soap and water are not available, use hand shell mold bonding machine operator. ? Make sure that everyone in your [...] and drinking to prevent dehydration. ? Take mxsz-hun-mgvwzvn and prescription medicines only as told by [...] provider. Document Revised: 07/29/2021 Document Reviewed: 07/29/2021 Elsevier Patient Education ? 2022 [employer] [facility] ED Patient Summaryon 023 ED Patient Summary [address] [address] Patient Discharge Instructions Person Information Name: JORDIN TYLER Age: 18 Years Arrival Date: 01/23/2023 11:31:15 Discharge Diagnosis: Nausea/vomiting in Primary Care Physician: MARK STONE Provider Information Primary Provider: Steven Alatorre DO Advanced Associate Curator:Colby Ayers PA-C The exam and treatment you received in the Emergency Department were for an urgent problem and are not intended as complete care. It is important that you follow up with a doctor, nurse practitioner, or physician?s assistant corporate controller for ongoing care. If your symptoms become worse or you do not improve as expected and you are unable to reach your usual health care provider, you should return to the Emergency Department. We are available 24 hours a day. JORDIN TYLER has been given the following list of patient education materials, prescriptions and follow-up instructions: Follow-up Instructions: With: Address: When: Ras Miller [address] [place] [address] Business (1) In 3 days 01/26/2023 In the event that this physician does not participate in your insurance network, please consult with your insurance company to find a nearby participating provider. Patient Education Materials: Nausea and Vomiting, Adult A MESSAGE TO ALL PATIENTS REGARDING OPIOIDS PRESCRIPTION OPIOIDS: WHAT YOU NEED TO KNOW Prescription opioids can be used to help relieve utjrgckt-bp-anqiac pain and are often prescribed following a [...] guidance from the Food and Drug Administration (www.fda.gov/Drugs/R esourcesForYou). ? Visit www.cdc.gov/drugover dose to learn about the risks of opioids abuse and overdose. ? If you believe you may be struggling with addiction, tell your health cattle care worker and ask for guidance or call [facility] National Helpline at 7-929-999-LUKG (more content not included)... [facility] HEMATOLOGYOrdered By: Brandon Sweeney on 01-23-2023 [...] 01-23-2023 Albumin [Mass/Vol] 4.4 g/dL Normal 3[facility]3-5.0 [facility] Comment on above: Performed By: #### 2 577503, 67540195, 0518106, 8207878, 54989101, 7167479, 6750407, 9450717, 45106798 ####[facility] [address] [place] [address] Albumin/Globulin [Mass ratio] 1.3 {ratio} Normal 1.1-2.2 [facility] Comment on above: Performed By: #### 2 851965, 80067516, 3059779, 5594226, 45807029, 8364983, 0229530, 8217000, 55704844 ####[facility] [address] [place] [address] Alk Phos 107 Int._Unit/L High 21-98 [facility] Comment on above: Performed By: #### 2 977818, 96729304, 4710899, 7524171, 25363109, 4420609, 6846128, 3985154, 94797792 ####[facility] [address] [place] [address] ALT 71 Int._Unit/L High 6-46 [facility] Comment on above: Performed By: #### 2 576400, 56907195, 6483354, 7412398, 27454728, 7528771, 9876286, 2447958, 45631593 ####[facility] [address] [place] [address] AST 60 Int._Unit/L High 5-43 [facility] Comment on above: Performed By: #### 2 171513, 16469619, 6578789, 6267653, 98523693, 9128152, 6665410, 9516447, 49766438 ####[facility] [address] [place] [address] Bili Direct 0.2 mg/dL Normal 0.0-0.4 [facility] Comment on above: Performed By: #### 2 309594, 49164952, 6920771, 4870902, 10529086, 2199864, 2403896, 0228299, 54994825 ####[facility] [address] [place] [address] Bili Indirect 0.2 mg/dL Normal 0.1-0.9 [facility] Comment on above: Performed By: #### 2 550791, 46200419, 0887177, 5256550, 60564241, 4759739, 7194057, 8879823, 28395775 ####[facility] [address] [place] [address] Bili Total 0.4 mg/dL Normal 0.0-1.1 [facility] Comment on above: Performed By: #### 2 410870, 08671902, 4799806, 5902492, 79429692, 5908795, 8387058, 9441723, 73576239 ####[facility] [address] [place] [address] Globulin (S) [Mass/Vol] 3.3 g/dL Normal 1.4-4.0 [facility] Comment on above: Performed By: #### 2 505864, 46661522, 8470412, 9752564, 09390333, 1983367, 0948261, 2075197, 89578852 ####[facility] [address] [place] [address] Protein [Mass/Vol] 7.7 g/dL Normal 6.0-7.8 [facility] Comment on above: Performed By: #### 2 663926, 06959338, 3369935, 1162145, 43311033, 8249867, 9047100, 1402256, 07307941 ####[place] [address] [place] [address] Lipase Levelon 01-23-2023 Lipase Lvl 10 unit/L Low 13-58 [facility] Comment on above: Performed By: #### 2 546605, 80270084, 7700266, 3131504, 56622297, 2135257, 4266371, 4250952, 34111926 ####[facility] [address] [place] [address] Morphon 01-23-2023 Anisocytosis Ql (Bld) Present Normal Fis [facility] Comment on above: Order Comment: Order Added by Discern Expert. Performed By: #### 2 466834, 65332036, 8728936, 3278407, 94276240, 6316598, 7259256, 2251043, 81633708 ####[facility] [address] [place] [address] Hypochromia Auto Ql (Bld) Present [facility] Comment on above: Order Comment: Order Added by Discern Expert. Performed By: #### 2 518422, 93578574, 6721117, 5745816, 31308411, 4182805, 6857379, 5325389, 60289091 ####[facility] [address] [place] [address] Microcytes Ql (Bld) Present Normal [facility] Comment on above: Order Comment: Order Added by Discern Expert. Performed By: #### 2 728016, 74000782, 2825471, 8681047, 04279510, 3390947, 3893012, 4576940, 13723327 ####[facility] [address] [place] [address] Morphology Cliff (Bld) [Interp] See Morphology [facility] Comment on above: Order Comment: Order Added by Discern Expert. Performed By: #### 2 098538, 12256270, 6502372, 9082858, 75140134, 0671537, 4460724, 3369007, 96363038 ####[facility] [address] [place] [address] SEROLOGYOrdered By: Kath Harden on 01-23-2023 Beta HCG ( test) Ql Positive (01/23/23 12:15 PM) Normal [facility] [place] [place] Man Sero UA With Cult Reflexon 2022 Bilirubin Ql (U) 1+ Abnormal Negative [facility] Comment on above: Performed By: #### 1 3820554 #### [facility] [address] [place] [address] Clarity (U) CLEAR Normal Clear [facility] Comment on above: Performed By: #### 1 7991079 #### [facility] [address] [place] [address] Color (U) DARK KIMMY Invalid Interpretation Code [facility] Comment on above: Performed By: #### 1 7133025 #### [facility] [address] [place] [address] Epithelial cells.squamous LM.HPF (Urine sed) [#/Area] 0-2 Normal 0-2 [facility] Comment on above: Performed By: #### 1 4591731 #### [facility] [address] [place] [address] Glucose Test strip (U) [Mass/Vol] Negative Normal Negative [facility] Comment on above: Performed By: #### 1 4693752 #### [facility] [address] [place] [address] Hemoglobin Ql (U) Negative Normal Negative [facility] Comment on above: Performed By: #### 1 8121390 #### [facility] [address] [place] [address] Ketones (U) [Mass/Vol] 3+ Abnormal Negative [facility] Comment on above: Performed By: #### 1 8139531 #### [facility] [address] [place] [address] Hazard.plasma/Hazard.R BC (Bld) [Mass ratio] 0-3 Normal 0-3 [facility] Comment on above: Performed By: #### 1 0153966 #### [facility] [address] [place] [address] Mucus Ql (Urine sed) TRACE Normal [facility] Comment on above: Performed By: #### 1 6363558 #### [facility] [address] [place] [address] Nitrite Ql (U) Negative Normal Negative [facility] Comment on above: Performed By: #### 1 9900201 #### [facility] [address] [place] [address] pH (U) 6.5 [pH] Invalid Interpretation Code 5.0-9.0 [facility] Comment on above: Performed By: #### 1 6408287 #### [facility] [address] [place] [address] Protein (U) [Mass/Vol] 1+ Abnormal Negative [facility] Comment on above: Performed By: #### 1 5607924 #### [facility] [address] [place] [address] Specific gravity (U) [Rel density] 1.025 Invalid Interpretation Code 1.005-1.030 [facility] Comment on above: Performed By: #### 1 0223424 #### [facility] [address] [place] [address] Type of Urine collection method Clean Catch [facility] Comment on above: Performed By: #### 1 2618321 #### [facility] [address] [place] [address] Urobilinogen Qn (U) 1.0 {Karri'U}/dL Normal 0.0-1.0 [facility] Comment on above: Performed By: #### 1 7625744 #### [facility] [address] [place] [address] WBC Auto Ql (U) Negative Normal Negative [facility] Comment on above: Performed By: #### 1 5166584 #### [facility] [address] [place] [address] WBC LM.HPF (Urine sed) [#/Area] 0-5 Normal 0-5 [facility] Comment on above: Performed By: #### 1 6012158 #### [facility] [address] [place] [address] URINALYSISOrdered By: Maranda Muñoz on 01-23-2023 Bilirubin Ql (U) 1+ *ABN* (01/23/23 2:25 PM) Invalid Interpretation Code Negative [facility] UA Auto SS Clarity (U) Clear (01/23/23 2:25 PM) Normal Clear [facility] UA Auto SS Color (U) DARK KIMMY Invalid Interpretation Code FT UA Auto SS Epithelial cells.squamous LM.HPF (Urine sed) [#/Area] 0-2 /HPF Normal 0-2/HPF [facility] UA Aut o SS Glucose Test strip (U) [Mass/Vol] Negative (01/23/23 2:25 PM) Normal Negative [facility] UA Auto SS Hemoglobin Ql (U) Negative (01/23/23 2:25 PM) Normal Negative [facility] UA Auto SS Ketones (U) [Mass/Vol] 3+ *ABN* (01/23/23 2:25 PM) Invalid Interpretation Code Negative [facility] UA Auto SS Hazard.plasma/Hazard.R BC (Bld) [Mass ratio] 0-3 /HPF Normal 0-3/HPF [facility] UA Au to SS Mucus Ql (Urine sed) Trace (01/23/23 2:25 PM) Normal [facility] UA Auto SS Nitrite [...] Desc Clean Catch (01/23/23 2:25 PM) Normal [facility] UA Auto SS Urobilinogen Qn (U) 1.0442143 {Karri'U}/dL Normal 0.0 - 1.0 EU/dL [facility] UA Auto SS WBC Auto Ql (U) Negative (01/23/23 2:25 PM) Normal Negative [facility] UA Auto SS WBC LM.HPF (Urine sed) [#/Area] 0-5 /HPF Normal 0-5/HPF [facility] UA Auto SS US 1st Trimesteron 01-23-2023 [...] corresponding gestational age +/- 1 week are: [place] Rump Length: 0.7 cm Composite Ultrasound Age: [...] 2 Transabdominal Ultrasound Performed FHR (bpm) 125 [place] Rump Length (in cm) 0.7 [facility] eGFRon 01-23-2023 GFR/1.73 sq M.predicted among non-blacks MDRD (S/P/Bld) [Vol rate/Area] mL/min/{1.73_m2} Normal >=59 [facility] Comment on above: Order Comment: Order added by Discern Expert. Performed By: #### 2 923003, 32286895, 2309294, 5272868, 16848747, 6399468, 1296328, 7289465, 85520099 ####[facility] [address] [place] [address] Interdisciplinary Note - Soc ial Workeron 01-15-2023 Interdisciplinary Note - Alum Operator This SW attempted to reach patient again today regarding needed resources. Patient again did not answer and voicemails are not able to be left. SW will remain available. [facility] Interdisciplinary Note - Soc ial Workeron 01-08-2023 Interdisciplinary Note - Alum Operator This SW attempted to contact patient today [...] being full. SW will remain available. [facility] Grp A Strp PCRon 01-02-2023 Grp A Strp Intrl Ctrl Pass Normal Fis [facility] Comment on above: Performed By: #### 1 [id number] #### [facility] [address] [place] [address] S. pyogenes DNA TIM+probe Ql (Throat) Positive Abnormal [facility] Comment on above: Result Comment: Test ing performed using DNA amplification. Performed By: #### 1 7845333 #### [facility] [address] [place] [address] Family Medicine Office/Clini c Noteon 01-01-2023 Family [...] with voice recognition software. Occasional wrong-word or ?aqtyx-r-kpbn? substitutions may have occurred due to the inherent limitations of voice recognition software. 17 yo female presents today with cc of bodyaches and headache concern for COVID-19 or strep. Patient states she has a 4-month-old and a 1 and uqix-vkzd-ery. States she currently does not have custody [...] emergency department. Will place a referral to high school social studies teacher see if we can get case management to help her out as she states she does not currently have her insurance card if she should be able to log online and take it 1 she has difficulty with transportation and walks yvhl-dck-nkram to work currently at [employer]. Will see if we can get her [...] understanding. Ordered: Group A Strep by PCR Alum Operator - Ambulatory Referral 2. BMI 28.0-28.9,adult (Z68.28: Body mass index [BMI] 28.0-28.9, adult) The standard range for ages 18 and older is >=18.5 and < 25 kg/m2. Your BMI today was above this range, this falls in the overweight to obese category and there are medical benefits to weight loss. We can offer couns (more content not included)... [facility] Comment on above: Result Comment: Elec tronically Signed By: Alex ROBERT, Alon Mercedes\.br\Date and Time Signed: 01/01/23 16:26 EST Patient Letter FTMCon 2022 Patient Letter [facility] [place] [place] [address], [place] [phone] January 01, 2023 JORDINTrip TYLER [address] [address] : 2005 Please excuse TYLERJORDIN Steve from work . Date and/or Time of Absence: From: 12/29/22 To: 01/03/23 May return to work on: 01/03/23 Restrictions: Pt may return to work on 01/03/23 as long as she is fever free with symptomatic improvement. Should mask an additional 5 days until Sunday01/06/23 Comments: Please excuse due to an acute illness. Provider Signature: Alon Johnson PA-C Physician Director Of In Service Education [facility] [address] [address] [facility] C Urineon 12-09-2022 Bacteria identified Cx [...] Locations R1: This test was performed at: [facility], [address] [place] [address], [address]- , , [facility] Comment on above: Performed By: #### 1 [id number] #### [facility] [address] [place] [address] Discharge Instructionson Discharge Instructions [id number] 311 [id number] 3#1.00TIFF [facility] ED Clinical Summaryon 2022 ED Clinical Summary [address] [address] ED Clinical Summary Person Information Name: JORDIN TYLER Kristan/[facility] Age: 17 Years : 2005 Sex: Female Language: Equ[place]an PCP: NONE, XXXX Marital Status: Single Phone: [phone] Visit Id: Visit Reason: Test; PREG TEST [...] 12/08/2022 00:29:17 12/08/2022 00:29:17 12/08/2022 00:29:17 ADDRESS: [address] [place] [phone] [facility] DOC NOTES: MEDICAL INFORMATION: Prescriptions Given: Medications to Continue with No Changes Other Medications ibuprofen (ibuprofen 600 mg Tab) 1 Tablets By Mouth every 6 hours. Refills: 0. PATIENT EDUCATION INFORMATION: Instructions: Home Test Information Follow up: With: Address: When: Cara [address], [address] [place] [address] Business (1) In 3 days 12/10/2022 Comments: Few concerns about continued can take up test at home in approximately 1 week. Please follow-up with your primary care doctor next 2 to 3 days. Please return to the ED for any new or worsening symptoms. With: Address: When: XXXX NONE , [place] In 3 days DIAGNOSIS: Encounter for medical screening examination [facility] ED Note-Physicianon 12-09-19 ED Note-Physician Basic Information Time Seen: Damaris Jean Baptiste DO Steve 12/07/2022 23:00 Chief Complaint Pt. presents to [...] and Complexity of Problems Differential Diagnosis: [] [facility] Data External documents reviewed: [] My EKG [...] her primary care doctor in addition to BRAIDER TENDER for further evaluation management. She is to [...] [place] In 3 days 12/10/2022 EST [address] [place] [address] [facility] (1) Additional Instructions: Few concerns [...] 23:15:00) UA (more content not included)... [facility] Comment on above: Result Comment: Elec [...] provider. Document Revised: 10/25/2020 Document Reviewed: 10/25/2020 [employer] Patient Education ? 2022 [employer] [facility] ED Patient Summaryon 023 ED Patient Summary [place] [id number] Patient Discharge Instructions Person Information Name: JORDIN TYLER Age: 17 Years Arrival Date: 12/07/2022 22:58:31 Discharge Diagnosis: Encounter for medical screening examination Primary Care Physician: NONE, XXXX Provider Information Primary Provider: Damaris Jean Baptiste DO Advanced Associate Curator:None The exam and treatment you received in the Emergency Department were for an urgent problem and are not intended as complete care. It is important that you follow up with a doctor, nurse practitioner, or physician?s assistant corporate controller for ongoing care. If your symptoms become worse or you do not improve as expected and you are unable to reach your usual health care provider, you should return to the Emergency Department. We are available 24 hours a day. JORDIN TYLER has been given the following list of patient education materials, prescriptions and follow-up instructions: Follow-up Instructions: With: Address: When: Cara [address], [address] [place] [address] Business (1) In 3 days 12/10/2022 Comments: Few concerns about continued can take up test at home in approximately 1 week. Please follow-up with your primary care doctor next 2 to 3 days. Please return to the ED for any new or worsening symptoms. With: Address: When: XXXX [facility] , [place] In 3 days In the event that this physician does not participate in your insurance network, please consult with your insurance company to find a nearby participating provider. Patient Education Materials: Home Test Information A MESSAGE TO ALL PATIENTS REGARDING OPIOIDS PRESCRIPTION OPIOIDS: WHAT YOU NEED TO KNOW Prescription opioids can be used to help relieve ntjcbnpp-rd-vhqrhb pain and are often prescribed following a [...] Administration (www.fd (more content not included)... [facility] Consent for Treatmenton Consent for Treatment [id number] 11 [id number] 8#1.00TIFF [facility] Laboratory - Microbiology an d Antimicrobial susceptibilityOrdered By: Felicita Barrow on 12-07-2022 Bacteria identified Cx Nom (U) 1,000 cfu/ml Mixed skin contaminants [facility] SEROLOGYOrdered By: Stefani Trejo on 12-07-2022 HCG.beta subunit (U) [Moles/Vol] Negative Normal [facility] [place] [place] Man Sero U BetaHcg Qualon 12-07-2022 HCG.beta subunit (U) [Moles/Vol] Negative [facility] Comment on above: Performed By: #### 1 [id number] #### [facility] [address] [place] [address] UA With Cult Reflexon 2022 Bacteria LM Ql (Urine sed) TRACE Normal Trace [facility] Comment on above: Performed By: #### 1 [id number] #### [facility] [address] [place] [address] Bilirubin Ql (U) Negative Normal Negative [facility] Comment on above: Performed By: #### 1 [id number] #### [facility] [address] [place] [address] Clarity (U) SL CLOUDY Abnormal [facility] Comment on above: Performed By: #### 1 [id number] #### [facility] [address] [place] [address] Color (U) DARK YELLO Abnormal Yellow [facility] Comment on above: Performed By: #### 1 [id number] #### [facility] [address] [place] [address] Epithelial cells.squamous LM.HPF (Urine sed) [#/Area] 5-8 Normal 0-2 [facility] Comment on above: Performed By: #### 1 [id number] #### [facility] [address] [place] [address] Glucose Test strip (U) [Mass/Vol] Negative Normal Negative [facility] Comment on above: Performed By: #### 1 [id number] #### [facility] [address] [place] [address] Hemoglobin Ql (U) Negative Normal Negative [facility] Comment on above: Performed By: #### 1 [id number] #### [facility] [address] [place] [address] Ketones (U) [Mass/Vol] Negative Normal Negative [facility] Comment on above: Performed By: #### 1 [id number] #### [facility] [address] [place] [address] Hazard.plasma/Hazard.R BC (Bld) [Mass ratio] 0-3 Normal 0-3 [facility] Comment on above: Performed By: #### 1 [id number] #### [facility] [address] [place] [address] Mucus Ql (Urine sed) 3+ Normal [facility] Comment on above: Performed By: #### 1 [id number] #### [facility] [address] [place] [address] Nitrite Ql (U) Negative Normal Negative [facility] Comment on above: Performed By: #### 1 [id number] #### [facility] [address] [place] [address] pH (U) 6.0 [pH] Invalid Interpretation Code 5.0-9.0 [facility] Comment on above: Performed By: #### 1 [id number] #### [facility] [address] [place] [address] Protein (U) [Mass/Vol] TRACE Abnormal Negative [facility] Comment on above: Performed By: #### 1 [id number] #### [facility] [address] [place] [address] Specific gravity (U) [Rel density] >=1.030 Invalid Interpretation Code 1.005-1.030 [facility] Comment on above: Performed By: #### 1 [id number] #### [facility] [address] [place] [address] Type of Urine collection method Clean Catch [facility] Comment on above: Performed By: #### 1 [id number] #### [facility] [address] [place] [address] Urobilinogen Qn (U) 0.2 {Karri'U}/dL Normal 0.0-1.0 [facility] Comment on above: Performed By: #### 1 [id number] #### [facility] [address] [place] [address] WBC Auto Ql (U) Negative Normal Negative [facility] Comment on above: Performed By: #### 1 [id number] #### [facility] [address] [place] [address] WBC LM.HPF (Urine sed) [#/Area] 6-15 Abnormal 0-5 [facility] Comment on above: Performed By: #### 1 [id number] #### [facility] [address] [place] [address] URINALYSISOrdered By: Raman Trejo on 12-07-2022 Bacteria [...] PM) Normal Negative [facility] UA Auto SS Hazard.plasma/Hazard.R BC (Bld) [Mass ratio] 0-3 /HPF Normal [...] Desc Clean Catch (12/07/22 11:15 PM) Normal [facility] [place] [place] UA Auto SS Urobilinogen Qn (U) 0.1067761 {Karri'U}/dL Normal 0.0 - 1.0 EU/dL [facility] [place] [place] UA Auto SS WBC Auto Ql (U) Negative (12/07/22 11:15 PM) Normal Negative [facility] [place] [place] UA Auto SS WBC LM.HPF (Urine sed) [#/Area] 6-15 /HPF Invalid Interpretation Code 0-5/HPF [facility] [place] [place] UA Auto SS ED Note-Physicianon 11-01-19 ED Note-Physician Basic Information Time Seen: Renny ROBERT, Donavan Cortes 10/30/2022 10:56 Chief Complaint Patient presents with [...] and Complexity of Problems Differential Diagnosis: [] [facility] Data External documents reviewed: [] My EKG [...] disorders of teeth and supporting structures) Orders: amoxicillin-clavulan ate, 1 tab(s), Oral, q12hr for 10 day(s), 20 tab(s), Refill(s) 0, [id number], 165.1, cm, 10/30/22 10:55:00 EDT, Height/Length Dosing, 80.5, kg, 10/30/22 10:55:00 EDT, Weight Dosing Disposition Plan Patient Discharge Condition Stable Discharge Disposition To home Discharge Prescription List Prescriptions Augmentin 875 mg-125 mg Tab, 1 tab(s), Oral, q12hr Follow-up With When Contact Information Dental: [facility] [phone] In 3 days 11/02/2022 EDT Additional Instructions: [place]: [place] [phone] In 3 days 11/02/2022 EDT Additional Instructions: Dental: [facility] [phone] In 3 days 11/02/2022 EDT Additional Instructions: Patient Education Dental Pain, Zwps-fb-Qarj Attestation Patient seen and evaluated by the physician assistant corporate controller. Attending physician was present in the emergency department and supervised care. This visit was performed by both the physician and an APC. I performed all aspects of the MDM as documented. This report was transcribed using voice recognition software. Every effort was made to ensure accuracy, however, inadvertently computerized precision lens polisher mistakes may be present. Appropriate healthcare PPE [...] Viral gastroenteritis (more content not included)... [facility] Comment on above: Result Comment: Elec tronically Signed By: Donavan Lawson PA-C\.br\Date and Time Signed: 10/30/22 12:22 EDT\.br\Electronically Co-Signed By: Steven Alatorre DO\.br\Date and Time Co-Signed: 10/31/22 08:00 EDT Consent for Treatmenton 10-07 Consent for Treatment [id number] #1.00CD:127 [facility] Discharge Instructionson Discharge Instructions [id number] 4#1.00CD:127 [facility] ED Clinical Summaryon 2022 ED Clinical Summary [address] [address] ED Clinical Summary Person Information Name: JORDIN TYLER [facility]an[facility] Age: 17 Years : 2005 Sex: Female Language: Equ[place]an PCP: NONE, XXXX Marital Status: Single Phone: [phone] Visit Id: Visit Reason: Dental pain; MOUTH [...] 10/30/2022 11:19:01 10/30/2022 11:19:01 10/30/2022 11:19:01 ADDRESS: [address] [place] [phone] PHYS DOC NOTES: MEDICAL INFORMATION: Prescriptions Given: New Medications [facility]/pharmacy #[id number], [address] [place] [id number], [phone] amoxicillin-clavulan ate (Augmentin 875 mg-125 mg Tab) 1 Tablets By Mouth every 12 hours for 10 Days. Refills: 0. Medications to Continue with No Changes Other Medications ibuprofen (ibuprofen 600 mg Tab) 1 Tablets By Mouth every 6 hours. Refills: 0. PATIENT EDUCATION INFORMATION: Instructions: Dental Pain, Ntrf-ha-Pwvb Follow up: With: Address: When: Dental: [facility] [phone] In 3 days 11/02/2022 With: Address: When: Dental: [place] [employer] [phone] In 3 days 11/02/2022 With: Address: When: Dental: [facility] [phone] In 3 days 11/02/2022 DIAGNOSIS: Pain, dental [facility] ED Patient Education Noteon 10-30-2022 ED [...] these instructions at home: Medicines ? Take yznr-yrf-dpdszkr and prescription medicines only as told by [...] to the area. Brushing your teeth ? Tinnie your teeth twice a day using a [...] when you eat or drink. ? Take suve-jbl-jqhvtzl and prescription medicines only as told by your dentist. ? Watch your dental pain for any changes. Let your dentist know if symptoms get worse. This information is not intended to replace advice given to you by your health care provider. Make sure you discuss any questions you have with your health care provider. Document Revised: 10/27/2020 Document Reviewed: 10/27/2020 Elsevier Patient Education ? 2022 [employer] [facility] ED Patient Summaryon 023 ED Patient Summary [place] [id number] Patient Discharge Instructions Person Information Name: JORDIN TYLER Age: 17 Years Arrival Date: 10/30/2022 10:43:07 Discharge Diagnosis: Pain, dental Primary Care Physician: NONE, XXXX Provider Information Primary Provider: Steven Alatorre DO Advanced Associate Curator:None The exam and treatment you received in the Emergency Department were for an urgent problem and are not intended as complete care. It is important that you follow up with a doctor, nurse practitioner, or physician?s assistant corporate controller for ongoing care. If your symptoms become worse or you do not improve as expected and you are unable to reach your usual health care provider, you should return to the Emergency Department. We are available 24 hours a day. JORDIN TYLER has been given the following list of patient education materials, prescriptions and follow-up instructions: Follow-up Instructions: With: Address: When: Dental: [facility] [phone] In 3 days 11/02/2022 With: Address: When: Dental: [employer] [facility] [phone] In 3 days 11/02/2022 With: Address: When: Dental: [facility] [phone] In 3 days 11/02/2022 In the event that this physician does not participate in your insurance network, please consult with your insurance company to find a nearby participating provider. Patient Education Materials: Dental Pain, Etdu-lk-Pskh A MESSAGE TO ALL PATIENTS REGARDING OPIOIDS PRESCRIPTION OPIOIDS: WHAT YOU NEED TO KNOW Prescription opioids can be used to help relieve jxwdmqrg-vm-oyfcvy pain and are often prescribed following a [...] guidance from the Food and Drug Administration (www.fda.gov/Drugs/R esourcesForYou). ? Visit www.cdc.gov/drugover dose to learn about the risks of opioids abuse and overdose. ? If you believe you may be struggling with addiction, tell your health care professio (more content not included)... [facility] Nursing Assessmenton 023 Nursing Assessment [id number] #1.00CD:127 [facility] Insurance Correspondence Off iceon 08-11-2022 Insurance Correspondence Office [id number] 8#1.00CD:127 [facility] Nursing Assessmenton 023 Nursing Assessment [id number] 0#1.00CD:127 [facility] Chlamydia/Gonococcus, NAAon 08-10-2022 C. trachomatis rRNA TIM+probe Ql (Unsp spec) Negative Invalid Interpretation Code [facility] Comment on above: Performed By: #### 1 [id number] #### [facility] [address] [place] [address] N. gonorrhoeae rRNA TIM+probe Ql (Unsp spec) Negative Invalid Interpretation Code [facility] Comment on above: Result Comment: Perf ormed at: =G [facility] [place] [address] [facility] [id number] MD Rodriguez Briones Performed By: #### 1 [id number] #### [facility] [address] [place] [address] Discharge Instructionson Discharge Instructions [id number] 9#1.00CD:127 [facility] Inpatient Clinical Summaryon 08-10-2022 Inpatient Clinical Summary [address] [address] Clinical Summary Person Information Name: JORDIN TYLER [place] Age: 17 Years : 2005 Sex: Female PCP: NONE, XXXX Marital Status: Single Phone: [phone] Race: White Ethnicity: Non- or Language: [place]an Visit Id: Visit Reason: Speciality: Acuity: 2 PP Enc Type: Inpatient Med Service: Obstetrics Arrival: 08/07/2022 06:12:23 Discharge: 08/10/2022 12:40:00 Dispo Type: Home (Routine DC) Address: [address] [place] [phone] Provider Notes: Diagnosis: 37 weeks gestation of [...] 31 kg/m2 Procedures No Procedures Documented Immunizations diphtheria/pertussis , acel/tetanus adult (08/09/2022) Final Med List: ibuprofen (ibuprofen 600 mg Tab) 1 Tablets By Mouth every 6 hours. Refills: 0. Care Team Members: Attending Physician: Jerry WILSON DO Consulting Physician: Referring Physician: Follow up: With: Address: When: Eduardo Bee [facility] [address], [place] [id number] [facility] (1) Within 6 weeks Comments: Call Dr if fever>100.5 F, heavy bleeding Call for any problems. Patient Education Information: [facility] Inpatient Patient Summaryon 08-10-2022 Inpatient Patient Summary [place] [id number] Patient Discharge Instructions PERSON INFORMATION Name: JORDIN [...] results: Follow up: With: Address: When: Eduardo Bee [address] [place] [address] [place] [id number] Business (1) Within 6 weeks Comments: Call Dr if fever>100.5 F, heavy bleeding Call for any problems. In the event that this physician does not participate in your insurance network, please consult with your insurance company to find a nearby participating provider. Comment: JAYSON Suárez SHIANNE A, have received the attached patient education materials/instructio ns and have verbalized understanding. Patient Signature Date Clinican/Nurse Signature Date MEDICATION LIST New Medications [id number], [address], [place] [id number], [phone] ibuprofen (ibuprofen 600 mg Tab) 1 Tablets By Mouth every 6 hours. Refills: 0. Last Dose: Next Dose: Pharmacy Information: [facility] , [place] [address] PATIENT EDUCATION INFORMATION Instructions: Medication Leaflets: You may receive a survey from [employer] asking you to rate your care experience. Your feedback is important and will help us understand what we do well and how we can improve the quality of care we provide to you, your loved ones and our community. It?s an honor to serve you. Thank you for choosing [facility] C Urineon 08-09-2022 Bacteria identified Cx [...] This test was performed at: [facility], [address] [place] [address], [address] , [place], [facility] Comment on above: Performed By: #### 1 [id number] #### [facility] [address] [place] [address] CBC w/Indiceson 08-09-2022 Erythrocyte distribution width (RBC) [Ratio] 16.0 % High 10.9-14.2 [facility] Comment on above: Performed By: #### 1 [id number] #### [facility] [address] [place] [address] Hematocrit (Bld) [Volume fraction] 21.8 % Low 34.0-46.0 [facility] Comment on above: Performed By: #### 1 [id number] #### [facility] [address] [place] [address] Hemoglobin (Bld) [Mass/Vol] 7.1 g/dL Low 12.0-16.0 [facility] Comment on above: Performed By: #### 1 [id number] #### [facility] [address] [place] [address] MCH (RBC) [Entitic mass] 22.8 pg Low 27.0-34.0 [facility] Comment on above: Performed By: #### 1 [id number] #### [facility] [address] [place] [address] MCHC (RBC) [Mass/Vol] 32.6 g/dL Normal 31.4-36.0 [facility] Comment on above: Performed By: #### 1 [id number] #### [facility] [address] [place] [address] MCV (RBC) [Entitic vol] 69.9 fL Low 80.0-100.0 [facility] Comment on above: Performed By: #### 1 [id number] #### [facility] [address] [place] [address] Platelet mean volume (Bld) [Entitic vol] 9.1 fL Normal 6.4-10.8 [facility] Comment on above: Performed By: #### 1 [id number] #### [facility] [address] [place] [address] Platelets (Bld) [#/Vol] 154.0 E9/L Normal 150.0-500.0 [facility] Comment on above: Performed By: #### 1 [id number] #### [facility] [address] [place] [address] RBC (Bld) [#/Vol] 3.1 E12/L Low 4.3-5.9 [facility] Comment on above: Performed By: #### 1 [id number] #### [facility] [address] [place] [address] WBC corrected for nucl RBC Auto (Bld) [#/Vol] 8.1 E9/L Normal 4.0-11.0 [facility] Comment on above: Performed By: #### 1 [id number] #### [facility] [address] [place] [address] Group B Strep by PCRon 08-09 Group B Strep colonization by PCR Negative Normal [facility] Comment on above: Performed By: #### 1 [id number] #### [facility] [address] [place] [address] HEMATOLOGYOrdered By: Ana Rivera on 08-09-2022 Erythrocyte distribution width (RBC) [Ratio] 16.0 % High 10.9 - 14.2 % [facility] [place] [place] HemeAutoSS Hematocrit (Bld) [Volume fraction] 21.8 % Low 34.0 - 46.0 % [facility]eAuto[facility] Hemoglobin (Bld) [Mass/Vol] 7.1 g/dL Low 12.0 - 16.0 gm/dL [facility] [place] [place] HemeAutoSS Hypochromia Auto Ql (Bld) Present (08/09/22 5:58 AM) Normal [facility] [place] [place] HemeManSS MCH (RBC) [Entitic mass] 22.8 pg Low 27. 0 - 34.0 pg FT HemeAutoSS MCHC (RBC) [Mass/Vol] 32.6 g/dL Normal 31.4 - 36.0 gm/dL [facility] HemeAutoSS MCV (RBC) [Entitic vol] 69.9 fL Low 80.0 - 100.0 fL [facility]eAuto[facility] Microcytes Ql (Bld) Present (08/09/22 5:58 AM) Normal [facility] [place] [place] HemeManSS Morphology Cliff (Bld) [Interp] See Morphology (08/09/22 5:58 AM) Normal [facility]eMan[facility] Platelet mean volume (Bld) [Entitic vol] 9.1 fL Normal 6.4 - 10.8 fL [facility] HemeAutoSS Platelets (Bld) [#/Vol] 154.0 E9/L Normal 150. 0 - 500.0 E9/L [facility] HemeAutoSS RBC (Bld) [#/Vol] 3.1 E12/L Low 4.3 - 5.9 E12/L [facility] HemeAutoSS WBC corrected for nucl RBC Auto (Bld) [#/Vol] 8.1 E9/L Normal 4.0 - 11.0 E9/L [facility] Insurance Correspondence Off iceon 08-09-2022 Insurance Correspondence Office [id number] #1.00CD:127 [facility] Insurance Correspondence Office [id number] #1.00CD:127 [facility] Morphon 08-09-2022 Hypochromia Auto Ql (Bld) Present [facility] Comment on above: Order Comment: Order Added by Discern Expert. Performed By: #### 1 [id number] #### [facility] [address] [place] [address] Microcytes Ql (Bld) Present Normal [facility] Comment on above: Order Comment: Order Added by Discern Expert. Performed By: #### 1 [id number] #### [facility] [address] [place] [address] Morphology Cliff (Bld) [Interp] See Morphology [facility] Comment on above: Order Comment: Order Added by Discern Expert. Performed By: #### 1 [id number] #### [facility] [address] [place] [address] Progress Note-Physicianon Progress Note-Physician Patient: JORDIN TYLER Age: 17 years Sex: Female : 2005 Associated Diagnoses: None Author: Rohit CASE, Eduardo Mendez Basic Information PPD #1 from . She is well. Anemic, but stable Review of Systems Constitutional: Negative. Respiratory: Shortness of breath. Health Status Current medications: Medications (16) Active Scheduled: (2) docusate sodium 100 mg Cap [F] 100 mg 1 cap(s), Oral, BID multivitamin, Multivitamins with FA 1 mg [F] 1 tab(s), Oral, qAM Continuous: (0) PRN: (14) acetaminophen 325 mg Tab UD [F] 975 mg 3 tab(s), Oral, q8hr acetaminophen-codein e 300 mg-30 mg Tab [F] 1 tab(s), Oral, q6hr acetaminophen-codein e 300 mg-30 mg Tab [F] 2 tab(s), Oral, q6hr benzocaine-menthol topical 20%-0.5% [place] [F] 1 spray(s), Topical, q4hr calcium carbonate 500 mg Chew Tab [F] 500 mg 1 tab(s), Oral, q6hr hydrocortisone 2.5% Rectal Crm w/Appl [F] 1 maryjo, Rectal, QID hydrocortisone 25 mg Supp [F] 25 mg 1 supp, Rectal, BID ibuprofen 600 mg Tab [F] 600 mg 1 tab(s), Oral, q6hr lanolin topical [F] 1 maryjo, Topical, q2hr measles/mumps/rubell a virus vaccine - Powd [F] 0.5 mL, SubCutaneous, Once simethicone 80 mg Chew Tab [F] 80 mg 1 tab(s), Oral, QID tetanus/diphth/pertu ss 5 units-2.5 units-18.5 mcg/0.5 mL SUSP [F] 0.5 mL, IntraMuscular, Once witch cayden topical 50% Pad [F] 1 maryjo, Topical, q4hr zolpidem 5 mg Tab [F] 5 mg 1 tab(s), Oral, Bedtime Physical Examination Vital Signs (last 24 hrs) Last Charted Temp Oral 36.7 DegC (AUG 09 07:27) SBP 122 mmHg (AUG 09:) DBP 68 mmHg (AUG 09:) SpO2 100 [...] Plan Condition: Stable. Plan Routine care. [facility] Comment on above: Result Comment: Elec tronically Signed By: Rohit CASE, Eduardo Mendez\.br\Date and Time Signed: 08/09/22 11:29 EDT Vaccinationson 08-09-2022 Vaccinations [id number]# 1.00CD:127 [facility] Nursing Delivery Noteon 07-0 Nursing Delivery Note Infant Catch:0411 SPONTANEOUS Vaginal delivery of FEMALE infant per Doctor WILSON. Head delivered. Mouth and nose bulb suctioned for clear fluid. Body delivered. NC X 2. Spontaneous respirations at . Infant placed on mother?s abdomen. INFANT DRIED AND WET LINENS REMOVED. Lusty cry with tactile stimulation. Color pinking. Moving all extremities. CORD CLAMPED AND CUT BY FATHER. 0412- SKIN TO SKIN WITH MOTHER. DIAPER AND HAT ON. HUGS TAG ON PATIENT. NO SIGNS OF DISTRESS. 0415- MOTHER REQUEST TO WARMER. WEIGHED AND MEASURED. SWADDLED AND HELD BY FATHER, NO SIGNS OF DISTRESS [facility] Nursing Delivery Note Infant Catch:0110 SPONTANEOUS Vaginal delivery of FEMALE per Doctor STEVE. Head delivered. Mouth and nose bulb suctioned for clear fluid. Body delivered. Spontaneous respirations at . Infant placed on mother?s abdomen. Lusty cry with [...] Respirations unlabored. Heart rate regular. Color pink. weighed and measured. 0123- INFANT PLACED BACK SKIN TO SKIN WITH MOTHER- NO SIGNS OF DISTRESS. BONDING APPROPRIATELY [facility] Comment on above: Other Comment: WRONG [...] Review: Problems (Active Problems Only) (SNOMED CT: 275257374, Onset: 11/05/21) Attention deficit hyperactivity disorder, combined type (SNOMED CT: 67080879, Onset: --) Dyspnea (SNOMED CT: 319321160, Onset: --) Finding related to (SNOMED CT: 542817490, Onset: --) Age mother conceived under 17 (Other: , Onset: --) Infection (SNOMED CT: 04200694, Onset: --) Delivery Summary Baby A Membrane [...] 3:01 E (more content not included)... [facility] Comment on above: Result Comment: Elec [...] \.br\.br\Da te: 01/18/22\.br \EGA: 8w5d \.br\Weight (lbs [facility] Comment on above: Result Comment: Elec tronically Signed By: Jerry WILSON DO\.br\Date and Time Signed: 08/08/22 00:08 EDT ABO/Rhon 08-07-2022 ABO/Rh Positive Invalid Interpretation Code [facility] Comment on above: Performed By: #### 1 [id number], [id number] #### [facility] [address] [place] [address] ABO/Rh History Checkon 07-03 -2023 ABO/Rh History Check Verified Hx Blood Type [facility] Comment on above: Performed By: #### 1 [id number], [id number] #### [facility] [address] [place] [address] ABSCon 08-07-2022 ABSC Gel Interp Negative Normal [facility] Comment on above: Performed By: #### 1 [id number], [id number] #### [facility] [address] [place] [address] BLOOD BANKOrdered By: Brandie Garcia on 08-07-2022 ABO/Rh Interp Positive Invalid Interpretation Code [facility] [place] [place] BB Subsection ABSC Gel Interp Negative (08/07/22 12:49 PM) Normal [facility] [place] [place] BB Subsection Blood Bank ID#on 08-07-2022 BBID# [id number] Invalid Interpretation Code [facility] Comment on above: Performed By: #### 1 [id number], [id number] #### [facility] [address] [place] [address] CBC w/Indiceson 08-07-2022 Erythrocyte distribution width (RBC) [Ratio] 16.0 % High 10.9-14.2 [facility] Comment on above: Performed By: #### 2 437148, [id number] #### [facility] [address] [place] [address] Hematocrit (Bld) [Volume fraction] 25.6 % Low 34.0-46.0 [facility] Comment on above: Performed By: #### 2 054623, [id number] #### [facility] [address] [place] [address] Hemoglobin (Bld) [Mass/Vol] 8.0 g/dL Low 12.0-16.0 [facility] Comment on above: Performed By: #### 2 661225, 40622115 #### [facility] [address] [place] [address] MCH (RBC) [Entitic mass] 21.9 pg Low 27.0-34.0 [facility] Comment on above: Performed By: #### 2 988359, [id number] #### [facility] [address] [place] [address] MCHC (RBC) [Mass/Vol] 31.3 g/dL Low 31.4-36.0 [facility] Comment on above: Performed By: #### 2 422450, [id number] #### [facility] [address] [place] [address] MCV (RBC) [Entitic vol] 69.9 fL Low 80.0-100.0 [facility] Comment on above: Performed By: #### 2 363589, [id number] #### [facility] [address] [place] [address] Platelet mean volume (Bld) [Entitic vol] 8.6 fL Normal 6.4-10.8 [facility] Comment on above: Performed By: #### 2 234430, [id number] #### [facility] [address] [place] [address] Platelets (Bld) [#/Vol] 232.0 E9/L Normal 150.0-500.0 [facility] Comment on above: Performed By: #### 2 658289, [id number] #### [facility] [address] [place] [address] RBC (Bld) [#/Vol] 3.7 E12/L Low 4.3-5.9 [facility] Comment on above: Performed By: #### 2 072384, 61745696 #### [facility] [address] [place] [address] WBC corrected for nucl RBC Auto (Bld) [#/Vol] 8.6 E9/L Normal 4.0-11.0 [facility] Comment on above: Performed By: #### 2 657044, [id number] #### [facility] [address] [place] [address] Consent for Procedure/Surger yon 08-07-2022 Consent for Procedure/Surgery [id number] 8#1.00CD:127 [facility] Consent for Treatmenton Consent for Treatment [id number] #1.00CD:127 [facility] Consent for Treatment [id number] #1.00CD:127 [facility] Discharge Instructionson Discharge Instructions [id number] 6#1.00CD:127 [facility] HEMATOLOGYOrdered By: Briseida Rose on 08-07-2022 [...] 150. 0 - 500.0 E9/L [facility] Platelets Large LM Ql (Bld) Present (08/07/22 12:49 PM) Normal [facility]Man[facility] Polychromasia LM Ql (Bld) Present (08/07/22 12:49 PM) Normal [facility] [place] [place] [facility]eManSS RBC (Bld) [#/Vol] 3.7 E12/L Low 4.3 - 5.9 E12/L [facility] WBC corrected for nucl RBC Auto (Bld) [#/Vol] 8.6 E9/L Normal 4.0 - 11.0 E9/L [facility] Help Me Grow Referralon 07 Help Me Grow Referral [id number] 2#1.00CD:127 [facility] Insurance Correspondence Off iceon 08-07-2022 Insurance Correspondence Office [id number]#1.00CD:127 [facility] - Microbiology an d Antimicrobial susceptibilityOrdered By: Maranda Muñoz on 08-07-2022 Bacteria identified Cx Nom (U) 2,000 cfu/ml Mixed skin contaminants [facility] Morphon 08-07-2022 Anisocytosis Ql (Bld) Present Normal [facility] Comment on above: Order Comment: Order Added by Discern Expert. Performed By: #### 2 306481, [id number] #### [facility] [address] [place] [address] Hypochromia Auto Ql (Bld) Present [facility] Comment on above: Order Comment: Order Added by Discern Expert. Performed By: #### 2 957926, [id number] #### [facility] [address] [place] [address] Microcytes Ql (Bld) Present Normal [facility] Comment on above: Order Comment: Order Added by Discern Expert. Performed By: #### 2 287297, [id number] #### [facility] [address] [place] [address] Morphology Cliff (Bld) [Interp] See Morphology [facility] Comment on above: Order Comment: Order Added by Discern Expert. Performed By: #### 2 860222, 90983912 #### [facility] [address] [place] [address] Ovalocytes LM Ql (Bld) Present Normal [facility] Comment on above: Order Comment: Order Added by Discern Expert. Performed By: #### 2 006201, [id number] #### [facility] [address] [place] [address] Platelets Large LM Ql (Bld) Present [facility] Comment on above: Order Comment: Order Added by Discern Expert. Performed By: #### 2 064254, [id number] #### [facility] [address] [place] [address] Polychromasia LM Ql (Bld) Present [facility] Comment on above: Order Comment: Order Added by Discern Expert. Performed By: #### 2 760344, 78249973 #### [facility] [address] [place] [address] Recordson 3 Records [id number] 9#1.00CD:127 [facility] Progress Note-Physicianon Progress Note-Physician Patient: JORDIN TYLER Age: 17 years Sex: Female : 2005 Associated Diagnoses: None Author: Ra Casas Jr., DO Postoperative Information Postoperative disposition: Postoperative disposition: Day 2. Optimetrix number: Optimetrix number [id number]. Anesthetic utilized: Regional: Epidural. Physical Examination Hemodynamically stable. Pain Assessment: Controlled. General: Awake, Alert, Appropriate. Respiratory: Adequate air exchange. Cardiovascular: Stable. Neurological: Normal sensory function. Assessment Anesthetic outcome No post-epidural complications noted.. Review / Management Condition: Stable. Plan Transfer/Discharge: Stable for discharge from anesthetic standpoint.. [facility] Comment on above: Result Comment: Elec [...] Stable for discharge from anesthetic standpoint.. [facility] Comment on above: Result Comment: Elec [...] hyperactivity disorder), combined type / SNOMED CT 77516861 / Confirmed Age mother conceived under 17 / Patient Care / Confirmed / SNOMED CT 008504785 / Confirmed Shortness of breath in pediatric patient / SNOMED CT 477622303 / Confirmed Very young maternal age, antepartum / SNOMED CT 167060309 / Confirmed Resolved: Acute gastroenteritis / SNOMED CT 418621026 resolved per patient Resolved: Acute low back pain due to trauma / SNOMED CT 687560885 resolved per patient Resolved: Blurry vision, left eye / SNOMED CT 872437030 resolved per patient Resolved: Chest pain / SNOMED CT 96528726 resolved per patient Resolved: Inspiratory stridor / SNOMED CT 386802196 Resolved: Post-traumatic stress syndrome / SNOMED CT 73255597 resolved per patient. Resolved: / SNOMED CT 243585669 Resolved: Strep pharyngitis / SNOMED CT 01461788 Resolved: Viral gastroenteritis / SNOMED CT 279436453 Resolved: Vomiting / SNOMED CT 7137258364 Canceled: None / SNOMED CT 316552214 Review of Systems Respiratory: Negative. Cardiovascular: Negative. Hematology/Lymphatic s: No bruising tendency, No bleeding tendency. Neurologic: [...] The PCEA was started at 1706. [facility] Comment on above: Result Comment: Elec tronically Signed By: Ra Casas Jr., DO\Date and Time Signed: 08/07/22 17:21 EDT Reference Laboratory Testing Ordered By: Generated DomainUser on 08-07-2022 C. trachomatis rRNA TIM+probe Ql (Unsp spec) Negative Invalid Interpretation Code Negative [facility] [place] [place] SendOutsSS N. gonorrhoeae rRNA TIM+probe Ql (Unsp spec) Negative Invalid Interpretation Code Negative [facility] [place] [place] [facility] Comment on above: Result Comment: Perf ormed at: =G [facility] [place] [address] [place], [place] [id number] MD Rodriguez Briones UA With Cult Reflexon 2022 Type of Urine collection method Catheter [facility] Comment on above: Order Comment: Urina ry Catheter Insertion triggered Urinalysis With Culture Reflex order by discern. Performed By: #### 1 [id number] #### [facility] [address] [place] [address] Bilirubin Ql (U) Negative Normal Negative [facility] Comment on above: Order Comment: Urina ry Catheter Insertion triggered Urinalysis With Culture Reflex order by discern. Performed By: #### 1 [id number] #### [facility] [address] [place] [address] Clarity (U) CLEAR Normal [facility] Comment on above: Order Comment: Urina ry Catheter Insertion triggered Urinalysis With Culture Reflex order by discern. Performed By: #### 1 [id number] #### [facility] [address] [place] [address] Color (U) YELLOW Normal [facility] Comment on above: Order Comment: Urina ry Catheter Insertion triggered Urinalysis With Culture Reflex order by discern. Performed By: #### 1 [id number] #### [facility] [address] [place] [address] Epithelial cells.squamous LM.HPF (Urine sed) [#/Area] 0-2 Normal 0-2 [facility] Comment on above: Order Comment: Urina ry Catheter Insertion triggered Urinalysis With Culture Reflex order by discern. Performed By: #### 1 [id number] #### [facility] [address] [place] [address] Glucose Test strip (U) [Mass/Vol] Negative Normal [facility] Comment on above: Order Comment: Urina ry Catheter Insertion triggered Urinalysis With Culture Reflex order by discern. Performed By: #### 1 [id number] #### [facility] [address] [place] [address] Hemoglobin Ql (U) 3+ Abnormal [facility] Comment on above: Order Comment: Urina ry Catheter Insertion triggered Urinalysis With Culture Reflex order by discern. Performed By: #### 1 [id number] #### [facility] [address] [place] [address] Ketones (U) [Mass/Vol] Negative Normal Negative [facility] Comment on above: Order Comment: Urina ry Catheter Insertion triggered Urinalysis With Culture Reflex order by discern. Performed By: #### 1 [id number] #### [facility] [address] [place] [address] Hazard.plasma/Hazard.R BC (Bld) [Mass ratio] 4-20 Normal 0-3 [facility] Comment on above: Order Comment: Urina ry Catheter Insertion triggered Urinalysis With Culture Reflex order by discern. Performed By: #### 1 [id number] #### [facility] [address] [place] [address] Nitrite Ql (U) Negative Normal Negative [facility] Comment on above: Order Comment: Urina ry Catheter Insertion triggered Urinalysis With Culture Reflex order by discern. Performed By: #### 1 [id number] #### [facility] [address] [place] [address] pH (U) 8.0 [pH] Invalid Interpretation Code 5.0-9.0 [facility] Comment on above: Order Comment: Urina ry Catheter Insertion triggered Urinalysis With Culture Reflex order by discern. Performed By: #### 1 [id number] #### [facility] [address] [place] [address] Protein (U) [Mass/Vol] Negative Normal Negative [facility] Comment on above: Order Comment: Urina ry Catheter Insertion triggered Urinalysis With Culture Reflex order by discern. Performed By: #### 1 [id number] #### [facility] [address] [place] [address] Specific gravity (U) [Rel density] 1.015 Invalid Interpretation Code 1.005-1.030 [facility] Comment on above: Order Comment: Urina ry Catheter Insertion triggered Urinalysis With Culture Reflex order by discern. Performed By: #### 1 [id number] #### [facility] [address] [place] [address] Urobilinogen Qn (U) 0.2 {Karri'U}/dL Normal 0.0-1.0 [facility] Comment on above: Order Comment: Urina ry Catheter Insertion triggered Urinalysis With Culture Reflex order by discern. Performed By: #### 1 [id number] #### [facility] [address] [place] [address] WBC Auto Ql (U) Negative Normal Negative [facility] Comment on above: Order Comment: Urina ry Catheter Insertion triggered Urinalysis With Culture Reflex order by discern. Performed By: #### 1 [id number] #### [facility] [address] [place] [address] WBC LM.HPF (Urine sed) [#/Area] 0-5 Normal 0-5 [facility] Comment on above: Order Comment: Urina ry Catheter Insertion triggered Urinalysis With Culture Reflex order by discern. Performed By: #### 1 [id number] #### [facility] [address] [place] [address] Bacteria LM Ql (Urine sed) 1+ /HPF Abnormal [facility] Comment on above: Performed By: #### 1 [id number], [id number] #### [facility] [address] [place] [address] Bilirubin Ql (U) Negative Normal Negative [facility] Comment on above: Performed By: #### 1 [id number], [id number] #### [facility] [address] [place] [address] Clarity (U) CLEAR Normal [facility] Comment on above: Performed By: #### 1 [id number], [id number] #### [facility] [address] [place] [address] Color (U) YELLOW Normal [facility] Comment on above: Performed By: #### 1 [id number], [id number] #### [facility] [address] [place] [address] Crystals LM Ql (Urine sed) Present [facility] Comment on above: Performed By: #### 1 [id number], [id number] #### [facility] [address] [place] [address] Epithelial cells.squamous LM.HPF (Urine sed) [#/Area] 9-10 Normal 0-2 [facility] Comment on above: Performed By: #### 1 7990963, [id number] #### [facility] [address] [place] [address] Glucose Test strip (U) [Mass/Vol] Negative Normal [facility] Comment on above: Performed By: #### 1 [id number], [id number] #### [facility] [address] [place] [address] Hemoglobin Ql (U) Negative Normal [facility] Comment on above: Performed By: #### 1 [id number], [id number] #### [facility] [address] [place] [address] Ketones (U) [Mass/Vol] Negative Normal Negative [facility] Comment on above: Performed By: #### 1 [id number], [id number] #### [facility] [address] [place] [address] Hazard.plasma/Hazard.R BC (Bld) [Mass ratio] 0-3 Normal 0-3 [facility] Comment on above: Performed By: #### 1 [id number], 7377149 #### [facility] [address] [place] [address] Mucus Ql (Urine sed) 1+ Normal [facility] Comment on above: Performed By: #### 1 7267279, 6309527 #### [facility] [address] [place] [address] Nitrite Ql (U) Negative Normal Negative [facility] Comment on above: Performed By: #### 1 0817890, 7680896 #### [facility] [address] [place] [address] pH (U) 7.0 [pH] Invalid Interpretation Code 5.0-9.0 [facility] Comment on above: Performed By: #### 1 [id number], 0301893 #### [facility] [address] [place] [address] Protein (U) [Mass/Vol] TRACE Abnormal Negative [facility] Comment on above: Performed By: #### 1 3923268, [id number] #### [facility] [address] [place] [address] Specific gravity (U) [Rel density] 1.020 Invalid Interpretation Code 1.005-1.030 [facility] Comment on above: Performed By: #### 1 [id number], [id number] #### [facility] [address] [place] [address] Type of Urine collection method Clean Catch [facility] Comment on above: Performed By: #### 1 [id number], [id number] #### [facility] [address] [place] [address] Urobilinogen Qn (U) 2.0 {Karri'U}/dL Abnormal 0.0-1.0 [facility] Comment on above: Performed By: #### 1 [id number], 4054867 #### [facility] [address] [place], [place] [address] WBC Auto Ql (U) 1+ Abnormal Negative [facility] Comment on above: Performed By: #### 1 7169758, [id number] #### [facility] [address] [place] [address] WBC LM.HPF (Urine sed) [#/Area] 6-15 Abnormal 0-5 [facility] Comment on above: Performed By: #### 1 8833157, 9281258 #### [facility] [address] [place] [address] URINALYSISOrdered By: Anne-Marie Leonard on 08-07-2022 Bilirubin [...] PM) Normal Negative [facility] UA Auto SS Hazard.plasma/Hazard.R BC (Bld) [Mass ratio] 4-20 /HPF Normal [...] [facility] UA Auto SS Urobilinogen Qn (U) 0.5922475 {Karri'U}/dL Normal 0.0 - 1.0 EU/dL [facility] [...] AM) Normal Negative [facility] UA Auto SS Hazard.plasma/Hazard.R BC (Bld) [Mass ratio] 0-3 /HPF Normal [...] AM) Invalid Interpretation Code 1.005 - 1.030 [facility] [place] [place] UA Auto SS UA Spec Desc Clean Catch (08/07/22 6:30 AM) Normal [facility] [place] [place] UA Auto SS Urobilinogen Qn (U) 2.6105349 {Karri'U}/dL Invalid Interpretation Code 0.0 - 1.0 EU/dL [facility] [place] [place] UA Auto SS WBC Auto Ql (U) 1+ *ABN* (08/07/22 6:30 AM) Invalid Interpretation Code Negative [facility] [place] [place] UA Auto SS WBC LM.HPF (Urine sed) [#/Area] 6-15 /HPF Invalid Interpretation Code 0-5/HPF [facility] [place] [place] UA Auto SS Consent for Treatmenton 07-08 Consent for Treatment [id number]#1.00CD:127 [facility] Consent for Treatment [id number] #1.00CD:127 [facility] Discharge Instructionson Discharge Instructions [id number]# 1.00CD:127 [facility] Inpatient Clinical Summaryon 08-04-2022 Inpatient Clinical Summary [place] [id number] Clinical Summary Person Information Name: JORDIN TYLER Kristan/[facility] Age: 17 Years : 2005 Sex: Female PCP: NONE, XXXX Marital Status: Single Phone: [phone] Race: White Ethnicity: Non- or Language: [place] Visit Id: Visit Reason: ABD PAIN AND PRESSURE Speciality: Acuity: Enc Type: OB Triage Med Service: Obstetrics Arrival: 08/04/2022 10:49:09 Discharge: 08/04/2022 13:15:00 Dispo Type: Home (Routine DC) Address: [address] [place] [id number] Provider Notes: Diagnosis: Problems Active Very young [...] Physician: Follow up: With: Address: When: Eduardo Lopezmaría Within 1 week Comments: Appointment has already been scheduled Call for any problems. Call for severe abdominal pain Call physician if symptoms worsen Return for contractions closer, longer, harder Return for decreased movement Return if ruptured membranes or vaginal bleeding Patient Education Information: [facility] Patient Summaryon 08-04-2022 Inpatient Patient Summary [place] [id number] Patient Discharge Instructions PERSON INFORMATION Name: JORDIN [...] test results: Follow up: With: Address: When: Eudardo Bee Within 1 week Comments: Appointment has already [...] to find a nearby participating provider. Comment: ITRISTONRYJORDIN, have received the attached patient education materials/instructio ns and have verbalized understanding. Patient Signature Date Clinican/Nurse Signature Date MEDICATION LIST Pharmacy Information: Bernardino Galan PATIENT EDUCATION INFORMATION Instructions: Medication Leaflets: You may receive a survey from [employer] asking you to rate your care experience. Your feedback is important and will help us understand what we do well and how we can improve the quality of care we provide to you, your loved ones and our community. It?s an honor to serve you. Thank you for choosing [facility] Insurance Correspondenceon 0 08-04-2022 Insurance Correspondence [id number]# 1.00CD:127 [facility] UA With Cult Reflexon 2022 Bacteria LM Ql (Urine sed) TRACE Normal [facility] Comment on above: Performed By: #### 1 [id number] #### [facility] [address] [place] [address] Bilirubin Ql (U) Negative Normal Negative [facility] Comment on above: Performed By: #### 1 [id number] #### [facility] [address] [place] [address] Clarity (U) SL CLOUDY Abnormal [facility] Comment on above: Performed By: #### 1 [id number] #### [facility] [address] [place] [address] Color (U) YELLOW Normal [facility] Comment on above: Performed By: #### 1 [id number] #### [facility] [address] [place] [address] Epithelial cells.squamous LM.HPF (Urine sed) [#/Area] /[HPF] Normal 0-2 [facility] Comment on above: Performed By: #### 1 [id number] #### [facility] [address] [place] [address] Glucose Test strip (U) [Mass/Vol] Negative Normal [facility] Comment on above: Performed By: #### 1 [id number] #### [facility] [address] [place] [address] Hemoglobin Ql (U) Negative Normal [facility] Comment on above: Performed By: #### 1 [id number] #### [facility] [address] [place] [address] Ketones (U) [Mass/Vol] Negative Normal Negative [facility] Comment on above: Performed By: #### 1 [id number] #### [facility] [address] [place] [address] Hazard.plasma/Hazard.R BC (Bld) [Mass ratio] 0-3 Normal 0-3 [facility] Comment on above: Performed By: #### 1 [id number] #### [facility] [address] [place] [address] Nitrite Ql (U) Negative Normal Negative [facility] Comment on above: Performed By: #### 1 [id number] #### [facility] [address] [place] [address] pH (U) 7.5 [pH] Invalid Interpretation Code 5.0-9.0 [facility] Comment on above: Performed By: #### 1 [id number] #### [facility] [address] [place] [address] Protein (U) [Mass/Vol] Negative Normal Negative [facility] Comment on above: Performed By: #### 1 [id number] #### [facility] [address] [place] [address] Specific gravity (U) [Rel density] 1.015 Invalid Interpretation Code 1.005-1.030 [facility] Comment on above: Performed By: #### 1 [id number] #### [facility] [address] [place] [address] Type of Urine collection method Clean Catch [facility] Comment on above: Performed By: #### 1 [id number] #### [facility] [address] [place] [address] Urobilinogen Qn (U) 0.2 {Karri'U}/dL Normal 0.0-1.0 [facility] Comment on above: Performed By: #### 1 [id number] #### [facility] [address] [place] [address] WBC Auto Ql (U) TRACE Abnormal Negative [facility] Comment on above: Performed By: #### 1 [id number] #### [facility] [address] [place] [address] WBC LM.HPF (Urine sed) [#/Area] 0-5 Normal 0-5 [facility] Comment on above: Performed By: #### 1 [id number] #### [facility] [address] [place] [address] URINALYSISOrdered By: Heidi Barnes on 08-04-2022 Bacteria [...] AM) Normal Negative [facility] UA Auto SS Hazard.plasma/Hazard.R BC (Bld) [Mass ratio] 0-3 /HPF Normal [...] Desc Clean Catch (08/04/22 11:11 AM) Normal [facility] [place] [place] UA Auto SS Urobilinogen Qn (U) 0.9038109 {Karri'U}/dL Normal 0.0 - 1.0 EU/dL [facility] [place] [place] UA Auto SS WBC Auto Ql (U) Trace *ABN* (08/04/22 11:11 AM) Invalid Interpretation Code Negative [facility] [place] [place] UA Auto SS WBC LM.HPF (Urine sed) [#/Area] 0-5 /HPF Normal 0-5/HPF [facility] [place] [place] UA Auto SS CHEMISTRYOrdered By: SYSTEM SYSTEM on 01-18-2022 Anion gap [Moles/Vol] 15 mmol/L Normal 6 - 16 mEq/L F C [facility] Calcium [Mass/Vol] 9.0 mg/dL Normal 8.9 - 11. 1 mg/dL [facility] Chloride [Moles/Vol] 103 mmol/L Normal 101 - 1 11 mmol/L [facility] CO2 [Moles/Vol] 21 mmol/L Normal 21 - 31 mmol/L [facility] Creatinine [Mass/Vol] 0.6 mg/dL Normal 0.5 - 1.3 mg/dL [facility] GFR/1.73 sq M.predicted among blacks MDRD (S/P/Bld) [Vol rate/Area] mL/min/1.73 m2 Normal >=59mL/min/1 .73 m2 [facility] [place] [place] Chem S GFR/1.73 sq M.predicted among non-blacks MDRD (S/P/Bld) [Vol rate/Area] mL/min/1.73 m2 Normal >=59mL/min/1 .73 m2 [facility] [place] [place] Chem S Glucose [Mass/Vol] 94 mg/dL Normal 55 - 199 mg/dL [facility] Potassium [Moles/Vol] 3.7 mmol/L Normal 3.5 - 5.3 mmol/L [facility] Remisol Sodium [Moles/Vol] 135 mmol/L Normal 135 - 145 mmol/L [facility] Remisol Urea nitrogen [Mass/Vol] 7 mg/dL Normal 5 - 21 mg/d L [facility] Urea nitrogen/Creatinine [Mass ratio] 12 mg/mg Normal 10 - 20 [facility] Remisol CHEMISTRYOrdered By: Austin garcia on 01-18-2022 HCG.beta subunit Qn 708686 m[IU]/mL High 1 - 3 mIU/m L [facility] Chem S MICRO OTHER TESTSOrdered By: Austin Cabrera on 01-18-2022 Rapid COV Int NEG Ctl Pass (01/18/22 1:19 AM) Normal [facility] Man Sero Rapid COV Int POS Ctl Pass (01/18/22 1:19 AM) Normal [facility] Man Sero SARS-CoV+SARS-CoV-2 (COVID-19) Ag IA.rapid Ql [...] Interpretation Code Negative [facility] UA Auto SS Hazard.plasma/Hazard.R BC (Bld) [Mass ratio] 0-3 /HPF Normal [...] [facility] UA Auto SS Urobilinogen Qn (U) 0.5418596 {Karri'U}/dL Normal 0.0 - 1.0 EU/dL [facility] [...] (U) [Moles/Vol] Positive (01/05/22 7:59 AM) Normal [facility] [place] [place] Man Sero URINALYSISOrdered By: Brandie Garcia on [...] (Urine sed) [#/Area] 9-10 /HPF Normal 0-2/HPF [facility] UA Aut o SS Glucose Test strip (U) [Mass/Vol] Negative (01/05/22 7:59 AM) Normal Negative [facility] UA Auto SS Hemoglobin Ql (U) Negative (01/05/22 7:59 AM) Normal Negative [facility] UA Auto SS Ketones (U) [Mass/Vol] 3+ *ABN* (01/05/22 7:59 AM) Invalid Interpretation Code Negative [facility] UA Auto SS Hazard.plasma/Hazard.R BC (Bld) [Mass ratio] 0-3 /HPF Normal [...] Desc Clean Catch (01/05/22 7:59 AM) Normal [facility] [place] [place] UA Auto SS Urobilinogen Qn (U) 1.6018172 {Karri'U}/dL Normal 0.0 - 1.0 EU/dL [facility] UA Auto SS WBC Auto Ql (U) Negative (01/05/22 7:59 AM) Normal Negative [facility] UA Auto SS WBC LM.HPF (Urine sed) [...] Present (01/02/22 1:09 PM) Normal [facility] HemeManSS Morphology Cliff (Bld) [...] hCG Ql Positive (01/02/22 1:09 PM) Normal [facility] Sero URINALYSISOrdered By: Maranda Golden on [...] Interpretation Code Negative [facility] UA Auto SS Hazard.plasma/Hazard.R BC (Bld) [Mass ratio] 0-3 /HPF Normal [...] [facility] UA Auto SS Urobilinogen Qn (U) 0.4706407 {Karri'U}/dL Normal 0.0 - 1.0 EU/dL [facility] [...] 9.0 fL Normal 6.0 - 9.5 fL FT HemeAutoSS Platelets (Bld) [#/Vol] 228.0 E9/L Normal 150. 0 - 450.0 E9/L [facility] HemeAutoSS RBC (Bld) [#/Vol] 3.1 E12/L Low 4.1 - 5.3 E12/L [facility]eAutoSS WBC corrected for nucl RBC Auto (Bld) [#/Vol] 12.5 E9/L High 4.0 - 10.5 E9/L FT HemeAutoSS BLOOD BANKOrdered By: Jazzmine Jarquin on 06-07-2021 ABO/Rh Interp Positive Invalid Interpretation Code [facility] [place] [place] BB Subsection ABSC Gel Interp Negative (06/07/21 7:46 AM) Normal [facility] [place] [place] BB Subsection HEMATOLOGYOrdered By: Brandie Garcia on 06-07-2021 Erythrocyte distribution width (RBC) [Ratio] 14.4 % High 11.5 - 14.0 % [facility] HemeAutoSS Hematocrit (Bld) [Volume fraction] 29.0 % Low 36.0 - 47.0 % [facility] HemeAutoSS Hemoglobin (Bld) [Mass/Vol] 9.6 g/dL Low [...] AM) Normal Negative [facility] UA Auto SS Hazard.plasma/Hazard.R BC (Bld) [Mass ratio] 0-3 /HPF Normal [...] [facility] UA Auto SS UA Spec Desc Mendoza (06/07/21 10:15 AM) Normal [facility] UA Auto SS Urobilinogen Qn (U) 0.0582195 {Karri'U}/dL Normal 0.0 - 1.0 EU/dL [facility] UA Auto SS WBC Auto Ql (U) Negative (06/07/21 10:15 AM) Normal Negative [facility] UA Auto SS WBC LM.HPF (Urine sed) [#/Area] 0-5 /HPF Normal 0-5/HPF [facility] UA Auto SS CHLAMYDIA/GONOCOCCUS TIM (SW AB/URINE/PAPon 11-04-2020 Chlamydia trachomatis, TIM CRAVEN Normal [facility] Comment on above: Result Comment: Test Not Performed. The transport device submitted contained a cleaning swab. On future collections the cleaning swab should be discarded after use; then the specimen should be collected using the smaller collection swab. contacted Dior at your facility on 11-04-2020 Performed at: =G Performed By: #### C T/NGNA #### [facility] [address] [place] [address] Dr. Maynor Bojorquez Neisseria gonorrhoeae, TIM TNP Normal [facility] Comment on above: Result Comment: Test not performed Performed at: =G Performed By: #### C T/NGNA #### [facility] [address] [place] [address] Dr. Maynor Bojorquez PDF [facility] Comment on above: Result Comment: Perf ormed at: CB Performed By: #### C T/NGNA #### [facility] [address] [place] [address] Dr. Maynor Bojorquez ABO AND RH TYPEon 11-01-2020 ABO and Rh group Nom (Bld) ABO Rh Typing A Rh Positive Normal [facility] Comment on above: Performed By: #### A HELADIO #### [facility] [address] [place] [address] Dr. Maynor Bojorquez CBC AUTO DIFFon 11-01-2020 BASO # 0.0 103/ul Normal 0.0-0.1 [facility] Comment on above: Performed By: #### C BC #### [facility] [address] [place] [address] Dr. Maynor Bojorquez Basophils/100 WBC (Bld) 0.4 % Normal 0.2-2.0 [facility] Comment on above: Performed By: #### C BC #### [facility] [address] [place] [address] Dr. Maynor Bojorquez EO # 0.1 103/ul Normal 0.0-0.7 [facility] Comment on above: Performed By: #### C BC #### [facility] [address] [place] [address] Dr. Maynor Bojorquez Eosinophils/100 WBC (Bld) 0.8 % Critically low 0.9-7.0 [facility] Comment on above: Performed By: #### C BC #### [facility] [address] [place] [address] Dr. Maynor Bojorquez Erythrocyte distribution width (RBC) [Ratio] 13.0 % Normal 11.0-15.0 [facility] Comment on above: Performed By: #### C BC #### [facility] [address] [place] [address] Dr. Maynor Bojorquez Hematocrit (Bld) [Volume fraction] 37.4 % Normal 36.0-48.0 [facility] Comment on above: Performed By: #### C BC #### [facility] [address] [place] [address] Dr. Maynor Bojorquez Hemoglobin (Bld) [Mass/Vol] 13.0 g/dL Normal 12.0-16.0 [facility] Comment on above: Performed By: #### C BC #### [facility] [address] [place] [address] Dr. Maynor Bojorquez IG # 0.03 10e3/ul Normal 0.00-0.03 [facility] Comment on above: Performed By: #### C BC #### [facility] [address] [place] [address] Dr. Maynor Bojorquez IG % 0.4 % Normal 0.0-0.5 [facility] Comment on above: Performed By: #### C BC #### [facility] [address] [place] [address] Dr. Maynor Bojorquez LYMPH # 1.7 103/ul Normal 1.2-3.8 [facility] Comment on above: Performed By: #### C BC #### [facility] [address] [place] [address] Dr. Maynor Bojorquez Lymphocytes/100 WBC (Bld) 22.7 % Normal 20.5-60.0 [facility] Comment on above: Performed By: #### C BC #### [facility] [address] [place] [address] Dr. Maynor Bojorquez MANUAL DIFF REQ NO Normal [facility] Comment on above: Performed By: #### C BC #### [facility] [address] [place] [address] Dr. Maynor Bojorquez MCH (RBC) [Entitic mass] 29.1 pg Normal 26.7-34.0 [facility] Comment on above: Performed By: #### C BC #### [facility] [address] [place] [address] Dr. Maynor Bojorquez MCHC (RBC) [Mass/Vol] 34.8 g/dL Normal 29.9-35.2 [facility] Comment on above: Performed By: #### C BC #### [facility] [address] [place] [address] Dr. Maynor Bojorquez MCV (RBC) [Entitic vol] 83.9 fL Normal 79.1-95.6 [facility] Comment on above: Performed By: #### C BC #### [facility] [address] [place] [address] Dr. Maynor Bojorquez MONO # 0.7 103/ul Normal 0.3-0.8 [facility] Comment on above: Performed By: #### C BC #### [facility] [address] [place] [address] Dr. Maynor Bojorquez Monocytes/100 WBC (Bld) 9.5 % Normal 1.7-12.0 [facility] Comment on above: Performed By: #### C BC #### [facility] [address] [place] [address] Dr. Maynor Bojorquez NEUT # 5.0 103/ul Normal 1.4-6.5 [facility] Comment on above: Performed By: #### C BC #### [facility] [address] [place] [address] Dr. Maynor Bojorquez Neutrophils/100 WBC (Bld) 66.2 % Normal 43.0-75.0 [facility] Comment on above: Performed By: #### C BC #### [facility] [address] [place] [address] Dr. Maynor Bojorquez Platelet mean volume (Bld) [Entitic vol] 10.0 fL Normal 9.5-13.5 [facility] Comment on above: Performed By: #### C BC #### [facility] [address] [place] [address] Dr. Maynor Bojorquez PLT 252 103/ul Normal 150-450 [facility] Comment on above: Performed By: #### C BC #### [facility] [address] [place] [address] Dr. Maynor Bojorquez RBC 4.46 106/ul Normal 3.40-5.30 [facility] Comment on above: Performed By: #### C BC #### [facility] [address] [place] [address] Dr. Maynor Bojorquez WBC 7.6 103/ul Normal 4.0-11.0 [facility] Comment on above: Performed By: #### C BC #### [facility] [address] [place] [address] Dr. Maynor Bojorquez ER URINE PROFILEon 1 Bilirubin Ql (U) SMALL Abnormal NEGATIVE [facility] Comment on above: Performed By: #### E RUR #### [facility] [address] [place] [address] Dr. Maynor Bojorquez Clarity (U) CLEAR Normal CLEAR [facility] Comment on above: Performed By: #### E RUR #### [facility] [address] [place] [address] Dr. Maynor Bojorquez Color (U) YELLOW Normal YELLOW [facility] Comment on above: Performed By: #### E RUR #### [facility] [address] [place] [address] Dr. Maynor BARNARD A micrscopic examination will be performed if indicated. Normal [facility] Comment on above: Performed By: #### E RUR #### [facility] [address] [place] [address] Dr. Maynor Bojorquez Glucose Ql (U) Negative Normal NEGATIVE [facility] Comment on above: Performed By: #### E RUR #### [facility] [address] [place] [address] Dr. Maynor Bojorquez Hemoglobin Ql (U) Negative Normal NEGATIVE [facility] Comment on above: Performed By: #### E RUR #### [facility] [address] [place] [address] Dr. Maynor Bojorquez Ketones Ql (U) >=80 Abnormal NEGATIVE [facility] Comment on above: Performed By: #### E RUR #### [facility] [address] [place] [address] Dr. Maynor Bojorquez LEUKOCYTES Negative Normal NEGATIVE [facility] Comment on above: Performed By: #### E RUR #### [facility] [address] [place] [address] Dr. Maynor Bojorquez Nitrite Ql (U) Negative Normal NEGATIVE [facility] Comment on above: Performed By: #### E RUR #### [facility] [address] [place] [address] Dr. Maynor Bojorquez pH (U) 6.0 [pH] Normal 5-9 [facility] Comment on above: Performed By: #### E RUR #### [facility] [address] [address] [address] Maynor Bojorquez SPEC GRAVITY >=1.030 Abnormal 1.005-<=1.[address] [place] [address] Comment on above: Performed By: #### E RUR #### [facility] [address] [address] [address] Maynor Bojorquez UA PROTEIN TRACE Normal NEGATIVE/ TRACE [facility] Comment on above: Performed By: #### E RUR #### [facility] [address] [address] [address] Maynor Bojorquez UR MICRO IND NOT INDICATED Normal [facility] Comment on above: Performed By: #### E RUR #### [facility] [address] [place] [address] Dr. Maynor Bojorquez Urobilinogen Qn (U) 1.0 {Karri'U}/dL Normal 0.2 - 1. 0 [facility] Comment on above: Performed By: #### E RUR #### [facility] [address] [place] [address] Dr. Maynor Bojorquez PREG QUANT HCGon 11-01-2020 HCG QUANT [id number] mIU/mL Normal [facility] Comment on above: Performed By: #### P REGQNT #### [facility] [address] [place] [address] Dr. Maynor Bojorquez HCG RANGE SEE BELOW Normal [facility] Comment on above: Result Comment: 5-50 0-1 WEEK 40-300 1-2 WEEKS 100-1,000 2-3 WEEKS 500-6,000 3-4 WEEKS 5,000-200,000 1-2 MONTHS 10,000-100,000 2-3 MONTHS 3,000-50,000 2ND TRIMESTER 1,000-50,000 3RD TRIMESTER Performed By: #### P REGQNT #### [facility] [address] [place] [address] Dr. Maynor Bojorquez PROF CHEM 8 (BAS METB)on Anion gap [Moles/Vol] 13.6 mmol/L Normal [facility] Comment on above: Performed By: #### B MP #### [facility] [address] [address] [address] Maynor Bojorquez Calcium [Mass/Vol] 9.0 mg/dL Normal 8.4-10.2 [facility] Comment on above: Performed By: #### B MP #### [facility] [address] [address] [address] Maynor Bojorquez Chloride [Moles/Vol] 102 mmol/L Normal 98-107 [facility] Comment on above: Performed By: #### B MP #### [facility] [address] [address] [address] Maynor Bojorquez CO2 [Moles/Vol] 24.3 mmol/L Normal 22.0-30.0 [facility] Comment on above: Performed By: #### B MP #### [facility] [address] [address] [address] Maynor Bojorquez Creatinine [Mass/Vol] 0.63 mg/dL Normal 0.52-1.04 [facility] Comment on above: Performed By: #### B MP #### [facility] [address] [address] [address] Maynor Bojorquez Glucose [Mass/Vol] 73 mg/dL Critically low 74-106 [facility] Comment on above: Performed By: #### B MP #### [facility] [address] [address] [address] Maynor Bojorquez Potassium [Moles/Vol] 3.9 mmol/L Normal 3.4-5.0 [facility] Comment on above: Performed By: #### B MP #### [facility] [address] [address] [address] Maynor Bojorquez Sodium [Moles/Vol] 136 mmol/L Critically low 137-145 [facility] Comment on above: Performed By: #### B MP #### [facility] [address] [address] [address] Maynor Bojorquez Urea nitrogen [Mass/Vol] 8.0 mg/dL Normal 6.4-19.3 [facility] Comment on above: Performed By: #### B MP #### [facility] [address] [place], [place] [address] Dr. Maynor Bojorquez Urea nitrogen/Creatinine [Mass ratio] 12.7 mg/mg Normal [facility] Comment on above: Performed By: #### B MP #### [facility] [address] [place], [place] [address] Dr. Maynor Bojorquez US PREG TVon 11-01-2020 [...] CY HERNANDEZ Date: 2020-11-01 18:11 Normal [facility] WET PREPon 11-01-2020 CLUE CELLS NONE SEEN Normal NONE SEEN [facility] Comment on above: Performed By: #### W P #### [facility] [address] [address] [address] Maynor Bojorquez FUNGAL ELEMENTS NONE SEEN Normal NONE SEEN [facility] Comment on above: Performed By: #### W P #### [facility] [address] [address] [address] Maynor Bojorquez RBC -WET PREP RARE Abnormal NONE SEEN [facility] Comment on above: Performed By: #### W P #### [facility] [address] [address] [address] Maynor Bojorquez TRICHOMONAS NONE SEEN Normal NONE SEEN [facility] Comment on above: Performed By: #### W P #### [facility] [address] [address] [address] Maynor Bojorquez WBC- WET PREP MODERATE Abnormal NONE SEEN [facility] Comment on above: Performed By: #### W P #### [facility] [address] [address] [address] Maynor Bojorquez WET PREP BACTERIA FEW Abnormal NONE SEEN The [facility] Comment on above: Performed By: #### W P #### [facility] [address] [address] [address] Maynor Bojorquez Vital Signs Date Time Vital Sign Value Performing Clinician Facility 06-24-2024 13:50-0400 Body mass index (BMI) [Ratio] 27.7 kg/m2 [facility] Work Phone: [facility] 06-24-2024 13:50-0400 Body weight 73.21 kg Jerry Steve DO Work Phone: [facility] 06-24-2024 13:50-0400 Diastolic blood pressure 58 mm[Hg] Jerry Steve DO Work Phone: [facility] 06-24-2024 13:50-0400 Systolic blood pressure 100 mm[Hg] Jerry Steve DO Work Phone: [facility] 06-19-2024 15:01-0400 Blood Pressure Location Eduardo WRAY [facility] 06-19-2024 15:01-0400 Body temperature 97.88 [degF] Eduardo WRAY [facility] 06-19-2024 15:01-0400 Diastolic blood pressure 65 mm[Hg] Eduardo WRAY [facility] 06-19-2024 15:01-0400 Heart rate 74 /min Eduardo WRAY [facility] 06-19-2024 15:01-0400 Respiratory rate 16 /min Eduardo WRAY [facility] 06-19-2024 15:01-0400 SaO2% (BldA) [Mass fraction] 100 % Eduardo WRAY [facility] 06-19-2024 15:01-0400 Systolic blood pressure 105 mm[Hg] Eduardo WRAY [facility] 06-09-2024 11:31-0400 Body mass index (BMI) [Ratio] 27.77 kg/m2 Jerry Steve DO Work Phone: [facility] 06-09-2024 11:31-0400 Body weight 73.39 kg Jerry Steve DO Work Phone: [facility] 06-09-2024 11:31-0400 Diastolic blood pressure 70 mm[Hg] Jerry Steve DO Work Phone: [facility] 06-09-2024 11:31-0400 Systolic blood pressure 114 mm[Hg] Jerry Steve DO Work Phone: [facility] 05-22-2024 11:28-0400 Body mass index (BMI) [Ratio] 26.95 kg/m2 Jerry Steve DO Work Phone: [facility] 05-22-2024 11:28-0400 Body weight 71.22 kg Jerry Steve DO Work Phone: [facility] 05-22-2024 11:28-0400 Diastolic blood pressure 72 mm[Hg] Jerry Steve DO Work Phone: [facility] 05-22-2024 11:28-0400 Systolic blood pressure 118 mm[Hg] Jerry Steve DO Work Phone: [facility] 05-09-2024 10:52-0400 Body mass index (BMI) [Ratio] 26.85 kg/m2 [facility] Nurse [facility] 05-09-2024 10:52-0400 Body weight 70.94 kg [facility] Nurse [facility] 05-09-2024 10:52-0400 Diastolic blood pressure 72 mm[Hg] [facility] Nurse [facility] 05-09-2024 10:52-0400 Systolic blood pressure 112 mm[Hg] [facility] Nurse [facility] 04-01-2024 14:35-0500 Body height 162.56 cm John Paul Lovell MD Work Phone: [facility] 04-01-2024 14:35-0500 Body mass index (BMI) [Ratio] 26.3 kg/m2 John Paul Lovell MD Work Phone: [facility] 04-01-2024 14:35-0500 Body temperature 97.9 [degF] John Paul Lovell MD Work Phone: [facility] 04-01-2024 14:35-0500 Body weight 69.51 kg John Paul Lovell MD Work Phone: [facility] 04-01-2024 14:35-0500 Diastolic blood pressure 61 mm[Hg] John Paul Lovell MD Work Phone: [facility] 04-01-2024 14:35-0500 Heart rate 75 /min John Paul Lovell MD Work Phone: [facility] 04-01-2024 14:35-0500 Respiratory rate 18 /min John Paul Lovell MD Work Phone: [facility] 04-01-2024 14:35-0500 SaO2% (BldA) [Mass fraction] 99 % John Paul Lovell MD Work Phone: [facility] 04-01-2024 14:35-0500 Systolic blood pressure 98 mm[Hg] John Paul Lovell MD Work Phone: [facility] 10-16-2023 14:13-0400 Body height 162.6 cm Mak Jordan [employer] SUPER[employer] Work Phone: [facility] 10-16-2023 14:13-0400 Body mass index (BMI) [Ratio] 28.67 kg/m2 Mak Jordan [employer] SUPERVISOR Work Phone: [facility] 10-16-2023 14:13-0400 Body temperature 98.2 [degF] Mak Jordan [employer] SUPER[employer]OR Work Phone: [facility] 10-16-2023 14:13-0400 Body weight 75.75 kg Mak Jordan [employer] SUPER[employer]OR Work Phone: [facility] 10-16-2023 14:13-0400 Diastolic blood pressure 78 mm[Hg] Mak Jordan [employer]IL [employer] SUPER[employer]OR Work Phone: [facility] 10-16-2023 14:13-0400 Heart rate 74 /min Mak Jordan [employer] SUPERVISOR Work Phone: [facility] 10-16-2023 14:13-0400 SaO2% (BldA) [Mass fraction] 98 % Mak Jordan [employer]IL [employer] SUPERVISOR Work Phone: [facility] 10-16-2023 14:13-0400 Systolic blood pressure 124 mm[Hg] Mak Jordan [employer]IL [employer] SUPERVISOR Work Phone: [facility] 09-12-2023 17:31-0400 [employer] Magalis Nataprawira [facility] Comment on above: Result Comment: waiting for ride to come 09-12-2023 16:32-0400 [employer] Magalis Nataprawira [facility] Comment on above: Result Comment: discharge instructions sheyla newman with verbal understanding. 09-12-2023 15:26-0400 [employer] Magalis Nataprawira [facility] 09-12-2023 08:52-0400 Diastolic blood pressure 51 mm[Hg] Magalis Nataprawira [facility] 09-12-2023 08:52-0400 Heart rate 68 /min Magalis Nataprawira [facility] 09-12-2023 08:52-0400 Mean blood pressure 67 mm[Hg] Magalis Nataprawira [facility] 09-12-2023 08:52-0400 Systolic blood pressure 100 mm[Hg] Magalis Nataprawira [facility] 09-12-2023 08:52-0400 Mean blood pressure 67 mm[Hg] Magalis Nataprawira [facility] 09-12-2023 08:52-0400 Respiratory rate 18 /min Magalis Nataprawira [facility] 09-11-2023 23:45-0400 Diastolic blood pressure 78 mm[Hg] Magalis Nataprawira [facility] 09-11-2023 23:45-0400 Heart rate 65 /min Magalis Nataprawira [facility] 09-11-2023 23:45-0400 Mean blood pressure 97 mm[Hg] Magalis Nataprawira [facility] 09-11-2023 23:45-0400 Systolic blood pressure 136 mm[Hg] Magalis Nataprawira [facility] 09-11-2023 23:45-0400 Blood Pressure Location Magalis Nataprawira [facility] 09-11-2023 23:45-0400 Mean blood pressure 97 mm[Hg] Magalis Nataprawira [facility] 09-11-2023 23:45-0400 Respiratory rate 22 /min Magalis Nataprawira [facility] 09-11-2023 21:03-0400 Heart rate 75 /min Magalis Nataprawira [facility] 09-11-2023 21:03-0400 SaO2% (BldA) [Mass fraction] 98 % Magalis Nataprawira [facility] 09-11-2023 21:02-0400 Diastolic blood pressure 73 mm[Hg] Magalis Nataprawira [facility] 09-11-2023 21:02-0400 Mean blood pressure 91 mm[Hg] Magalis Nataprawira [facility] 09-11-2023 21:02-0400 Systolic blood pressure 127 mm[Hg] Magalis Nataprawira [facility] 09-11-2023 21:00-0400 Body temperature 98.42 [degF] Magalis Nataprawira [facility] 09-11-2023 21:00-0400 Respiratory rate 18 /min Magalis Nataprawira [facility] 09-11-2023 16:00-0400 Mean blood pressure 80 mm[Hg] Magalis Nataprawira [facility] 09-11-2023 06:15-0400 Blood Pressure Location Magalis Nataprawira [facility] 09-11-2023 06:00-0400 Body temperature 98.24 [degF] Magalis Nataprawira [facility] 09-11-2023 04:45-0400 SaO2% (BldA) [Mass fraction] 97 % Magalis Nataprawira [facility] 09-11-2023 03:00-0400 Body temperature 97.88 [degF] Magalis Snow [facility] 09-10-2023 21:38-0400 bodymassindex 1.6 kg/m2 Magalis Snow [facility] Comment on above: Result Comment: ^~:!ZScore Source [facility] 09-10-2023 21:38-0400 Height/Length Percentile 60.85 1 Magalis Snow [facility] Comment on above: Result Comment: ^~:!Percentile Source -[facility] 09-10-2023 21:38-0400 Height/Length Z-Score 0.28 1 Magalis Snow [facility] Comment on above: Result Comment: ^~:!ZScore Source [facility] 09-10-2023 21:38-0400 Weight Percentile 95.70 % Magalis Snow [facility] Comment on above: Result Comment: ^~:!Percentile Source -[facility] 09-10-2023 21:38-0400 Weight Z-Score 1.72 1 Magalis Snow [facility] Comment on above: Result Comment: ^~:!ZScore Source [facility] 08-29-2023 16:25-0400 [employer] Round[employer] Ras Miller [facility] Comment on above: Result Comment: discharge instructions sheyla newman, questions answered and papers signed 08-29-2023 15:06-0400 bodymassindex 1.44 kg/m2 Ras Miller [facility] Comment on above: Result Comment: ^~:!ZScore Source -[facility] 08-29-2023 15:06-0400 Height/Length Percentile 60.30 1 Ras Miller [facility] Comment on above: Result Comment: ^~:!Percentile Source -[facility] 08-29-2023 15:06-0400 Height/Length Z-Score 0.26 1 Ras Miller [facility] Comment on above: Result Comment: ^~:!ZScore [facility] 08-29-2023 15:06-0400 Weight Percentile 93.68 % Ras Miller [facility] Comment on above: Result Comment: ^~:!Percentile Source [facility] 08-29-2023 15:06-0400 Weight Z-Score 1.53 1 Ras Miller [facility] Comment on above: Result Comment: ^~:!ZScore [facility] 08-29-2023 15:00-0400 Diastolic blood pressure 74 mm[Hg] Ras Miller [facility] 08-29-2023 15:00-0400 Heart rate 94 /min Ras Miller [facility] 08-29-2023 15:00-0400 Mean blood pressure 92 mm[Hg] Ras Miller [facility] 08-29-2023 15:00-0400 Respiratory rate 18 /min Ras Miller [facility] 08-29-2023 15:00-0400 Systolic blood pressure 127 mm[Hg] Ras Miller [facility] 07-19-2023 07:30-0400 [employer] Round[employer] Magalis Nataprawira [facility] Comment on above: Result Comment: discharge instructions g iven to pt. pt requests an abdominal binder. 07-19-2023 07:15-0400 Body temperature 98.06 [degF] Magalis Nataprawira [facility] 07-19-2023 07:15-0400 Diastolic blood pressure 46 mm[Hg] Magalis Nataprawira [facility] 07-19-2023 07:15-0400 Heart rate 77 /min Magalis Nataprawira [facility] 07-19-2023 07:15-0400 Hourly Rounding Magalis Nataprawira [facility] 07-19-2023 07:15-0400 Mean blood pressure 68 mm[Hg] Magalis Nataprawira [facility] 07-19-2023 07:15-0400 Systolic blood pressure 112 mm[Hg] Magalis Nataprawira [facility] 07-19-2023 06:44-0400 bodymassindex 1.44 kg/m2 Magalis Nataprawira [facility] Comment on above: Result Comment: ^~:!ZScore [facility] 07-19-2023 06:44-0400 Height/Length Percentile 60.93 1 Magalis Nataprawira [facility] Comment on above: Result Comment: ^~:!Percentile Source [facility] 07-19-2023 06:44-0400 Height/Length Z-Score 0.28 1 Magalis Nataprawira [facility] Comment on above: Result Comment: ^~:!ZScore [facility] 07-19-2023 06:44-0400 Weight Percentile 93.73 % Magalis Nataprawira [facility] Comment on above: Result Comment: ^~:!Percentile Source [facility] 07-19-2023 06:44-0400 Weight Z-Score 1.53 1 Magalis Nataprawira [facility] Comment on above: Result Comment: ^~:!ZScore [facility] 03-20-2023 08:14-0500 Body mass index (BMI) [Ratio] 27.09 kg/m2 Kourtney Pierce NP Work Phone: [facility] 03-20-2023 08:14-0500 Body weight 71.58 kg Kourtney Pierce [employer] SUPERVISOR Work Phone: [facility] 03-20-2023 08:14-0500 Diastolic blood pressure 76 mm[Hg] Kourtney Pierce [employer] SUPERVISOR Work Phone: [facility] 03-20-2023 08:14-0500 Systolic blood pressure 124 mm[Hg] Kourtney Pierce MA[employer] SUPERVISOR Work Phone: [facility] 03-15-2023 06:43-0500 Body height 162.6 cm Kourtney Pierce MAIL [employer] SUPERVISOR Work Phone: [facility] 02-13-2023 17:00-0500 Heart rate 76 /min Steven Quiroze [facility] 02-13-2023 17:00-0500 Mean blood pressure 82 mm[Hg] Steven Quiroze [facility] 02-13-2023 17:00-0500 SaO2% (BldA) [Mass fraction] 98 % Steven Celi [facility] 02-13-2023 16:07-0500 Diastolic blood pressure 66 mm[Hg] Steven Celi [facility] 02-13-2023 16:07-0500 Heart rate 71 /min Steven Celi [facility] 02-13-2023 16:07-0500 Mean blood pressure 81 mm[Hg] Steven Celi [facility] 02-13-2023 16:07-0500 Respiratory rate 16 /min Steven Celi [facility] 02-13-2023 16:07-0500 SaO2% (BldA) [Mass fraction] 100 % Steven Celi [facility] 02-13-2023 16:07-0500 Systolic blood pressure 111 mm[Hg] Steven Celi [facility] 02-13-2023 15:21-0500 Diastolic blood pressure 67 mm[Hg] Steven Alatorre [facility] 02-13-2023 15:21-0500 Heart rate 65 /min Steven Alatorre [facility] 02-13-2023 15:21-0500 Mean blood pressure 83 mm[Hg] Steven Alatorre [facility] 02-13-2023 15:21-0500 SaO2% (BldA) [Mass fraction] 100 % Steven Quiroze [facility] 02-13-2023 15:21-0500 Systolic blood pressure 114 mm[Hg] Steven Alatorre [facility] 02-13-2023 14:18-0500 Body temperature 98.06 [degF] Steven Alatorre [facility] 02-13-2023 14:18-0500 bodymassindex 0.93 kg/m2 Steven Alatorre [facility] Comment on above: Result Comment: ^~:!ZScore [facility] 02-13-2023 14:18-0500 Heart rate 70 /min Steven Alatorre [facility] 02-13-2023 14:18-0500 Height/Length Percentile 60.56 1 Steven Alatorre [facility] Comment on above: Result Comment: ^~:!Percentile Source [facility] 02-13-2023 14:18-0500 Height/Length Z-Score 0.27 1 Steven Quiroze [facility] Comment on above: Result Comment: ^~:!ZScore [facility] 02-13-2023 14:18-0500 Weight Percentile 84.08 % Steven Quiroze [facility] Comment on above: Result Comment: ^~:!Percentile Source -[facility] [place] 02-13-2023 14:18-0500 Weight Z-Score 1.00 1 Steven Celi [facility] Comment on above: Result Comment: ^~:!ZScore Source -[facility] 01-26-2023 21:13-0500 Diastolic blood pressure 57 mm[Hg] Steven Celi [facility] 01-26-2023 21:13-0500 Heart rate 74 /min Steven Celi [facility] 01-26-2023 21:13-0500 Mean blood pressure 75 mm[Hg] Steven Celi [facility] 01-26-2023 21:13-0500 Respiratory rate 18 /min Steven Celi [facility] 01-26-2023 21:13-0500 SaO2% (BldA) [Mass fraction] 100 % Steven Celi [facility] 01-26-2023 21:13-0500 Systolic blood pressure 110 mm[Hg] Steven Celi [facility] 01-26-2023 20:37-0500 Diastolic blood pressure 83 mm[Hg] Steven Celi [facility] 01-26-2023 20:37-0500 Heart rate 83 /min Steven Celi [facility] 01-26-2023 20:37-0500 Mean blood pressure 104 mm[Hg] Steven Celi [facility] 01-26-2023 20:37-0500 Respiratory rate 17 /min Steven Celi [facility] 01-26-2023 20:37-0500 SaO2% (BldA) [Mass fraction] 100 % Steven Celi [facility] 01-26-2023 20:37-0500 Systolic blood pressure 146 mm[Hg] Steven Quiroze [facility] 01-26-2023 19:10-0500 Body temperature 98.42 [degF] Steven Alatorre [facility] 01-26-2023 19:10-0500 bodymassindex 1.05 kg/m2 Steven Quiroze [facility] Comment on above: Result Comment: ^~:![facility]Score [facility] 01-26-2023 19:10-0500 Diastolic blood pressure 61 mm[Hg] Steven Alatorre [facility] 01-26-2023 19:10-0500 Heart rate 71 /min Steven Alatorre [facility] 01-26-2023 19:10-0500 Height/Length Percentile 71.85 1 Steven Alatorre [facility] Comment on above: Result Comment: ^~:!Percentile [facility] 01-26-2023 19:10-0500 Height/Length Z-Score 0.58 1 Steven Alatorre [facility] Comment on above: Result Comment: ^~:!ZScore [facility] 01-26-2023 19:10-0500 Respiratory rate 18 /min Steven Alatorre [facility] 01-26-2023 19:10-0500 SaO2% (BldA) [Mass fraction] 99 % Steven Quiroze [facility] 01-26-2023 19:10-0500 Systolic blood pressure 120 mm[Hg] Steven Alatorre [facility] 01-26-2023 19:10-0500 weight 1.21 1 Steven Quiroze [facility] Comment on above: Result Comment: ^~:!ZScore Source -[facility] 01-26-2023 19:10-0500 Weight Percentile 88.76 % Steven Celi [facility] Comment on above: Result Comment: ^~:!Percentile Source -[facility] 01-23-2023 17:43-0500 Diastolic blood pressure 80 mm[Hg] Steven Clei [facility] 01-23-2023 17:43-0500 Heart rate 70 /min Steven Celi [facility] 01-23-2023 17:43-0500 Mean blood pressure 92 mm[Hg] Steven Celi [facility] 01-23-2023 17:43-0500 Respiratory rate 16 /min Steven Celi [facility] 01-23-2023 17:43-0500 SaO2% (BldA) [Mass fraction] 99 % Steven Celi [facility] 01-23-2023 17:43-0500 Systolic blood pressure 116 mm[Hg] Steven Celi [facility] 01-23-2023 17:00-0500 Diastolic blood pressure 50 mm[Hg] Steven Celi [facility] 01-23-2023 17:00-0500 Heart rate 62 /min Steven Celi [facility] 01-23-2023 17:00-0500 Mean blood pressure 65 mm[Hg] Steven Celi [facility] 01-23-2023 17:00-0500 Respiratory rate 18 /min Steven Celi [facility] 01-23-2023 17:00-0500 SaO2% (BldA) [Mass fraction] 100 % Steven Celi [facility] 01-23-2023 17:00-0500 Systolic blood pressure 95 mm[Hg] Steven Quiroze [facility] 01-23-2023 16:30-0500 Diastolic blood pressure 51 mm[Hg] Steven Quiroze [facility] 01-23-2023 16:30-0500 Heart rate 53 /min Steven Quiroze [facility] 01-23-2023 16:30-0500 Mean blood pressure 66 mm[Hg] Steven Quiroze [facility] 01-23-2023 16:30-0500 Respiratory rate 19 /min Steven Alatorre [facility] 01-23-2023 16:30-0500 SaO2% (BldA) [Mass fraction] 99 % Steven Quiroze [facility] 01-23-2023 16:30-0500 Systolic blood pressure 97 mm[Hg] Steven Alatorre [facility] 01-23-2023 11:45-0500 Body temperature 97.7 [degF] Steven Alatorre [facility] 01-23-2023 11:45-0500 bodymassindex 1.35 kg/m2 Steven Alatorre [facility] Comment on above: Result Comment: ^~:!ZScore Source -[facility] 01-23-2023 11:45-0500 Heart rate 65 /min Steven Quiroze [facility] 01-23-2023 11:45-0500 Height/Length Percentile 60.60 1 Steven Quiroze [facility] Comment on above: Result Comment: ^~:!Percentile Source -[facility] 01-23-2023 11:45-0500 Height/Length Z-Score 0.27 1 Steven Alatorre [facility] Comment on above: Result Comment: ^~:![facility]Score [facility] 01-23-2023 11:45-0500 weight 1.42 1 Steven Alatorre [facility] Comment on above: Result Comment: ^~:![facility]Score [facility] 01-23-2023 11:45-0500 Weight Percentile 92.25 % Steven Alatorre [facility] Comment on above: Result Comment: ^~:!Percentile Source [facility] 12-07-2022 23:02-0400 Body temperature 98.24 [degF] Kaylinn Dokken [facility] 12-07-2022 23:02-0400 bodymassindex 1.61 kg/m2 Kaylinn Dokken [facility] Comment on above: Result Comment: ^~:![facility]Score [facility] 12-07-2022 23:02-0400 Diastolic blood pressure 46 mm[Hg] Kaylinn Dokken [facility] 12-07-2022 23:02-0400 Heart rate 78 /min Kaylinn Dokken [facility] 12-07-2022 23:02-0400 Height/Length Percentile 45.75 1 Kaylinn Dokken [facility] Comment on above: Result Comment: ^~:!Percentile Source [facility] 12-07-2022 23:02-0400 Height/Length Z-Score -0.11 1 Kaylinn Dokken [facility] Comment on above: Result Comment: ^~:![facility]Score [facility] 12-07-2022 23:02-0400 Respiratory rate 18 /min Kaylinn Dokken [facility] 12-07-2022 23:02-0400 SaO2% (BldA) [Mass fraction] 97 % Damaris Jean Baptiste [facility] 12-07-2022 23:02-0400 Systolic blood pressure 113 mm[Hg] Damaris Jean Baptiste [facility] 12-07-2022 23:02-0400 weight 1.61 1 Damaris Jean Baptiste [facility] Comment on above: Result Comment: ^~:![facility]Score [facility] 12-07-2022 23:02-0400 Weight Percentile 94.60 % Damaris Jean Baptiste [facility] Comment on above: Result Comment: ^~:!Percentile Source [facility] 10-30-2022 10:51-0400 Body temperature 98.24 [degF] Steven Alatorre [facility] 10-30-2022 10:51-0400 bodymassindex 1.51 Steven Alatorre [facility] Comment on above: Result Comment: ^~:![facility]Score [facility] 10-30-2022 10:51-0400 Diastolic blood pressure 72 mm[Hg] Steven Alatorre [facility] 10-30-2022 10:51-0400 Heart rate 80 /min Steven Alatorre [facility] 10-30-2022 10:51-0400 Height/Length Percentile 61.36 Steven Alatorre [facility] Comment on above: Result Comment: ^~:!Percentile Source -[facility] 10-30-2022 10:51-0400 Height/Length Z-Score 0.29 Steven Alatorre [facility] Comment on above: Result Comment: ^~:![facility]Score [facility] 10-30-2022 10:51-0400 Respiratory rate 16 /min Steven Alatorre [facility] 10-30-2022 10:51-0400 SaO2% (BldA) [Mass fraction] 97 % Steven Alatorre [facility] 10-30-2022 10:51-0400 Systolic blood pressure 110 mm[Hg] Steven Alatorre [facility] 10-30-2022 10:51-0400 weight 1.60 Steven Alatorre [facility] Comment on above: [facility] Weight Percentile 94.47 % Steven Alatorre [facility] Comment on above: Result Comment: ^~:!Percentile Source -[facility] 08-10-2022 12:40-0400 Hourly Rounding Jerry STEVE [facility] Comment on above: Result Comment: discharged out to [facility] without incident accompanied per nurse, the baby was carried in the carseat 08-10-2022 12:30-0400 Hourly Rounding Jerry STEVE [facility] Comment on above: Result Comment: discharge instructions sheyla newman the pt verbalized understanding 08-10-2022 11:42-0400 Hourly Rounding Jerry STEVE [facility] Comment on above: Result Comment: sitting in bed. denies n eeds or pain 08-10-2022 07:21-0400 Heart rate 73 /min Jerry STEVE [facility] 08-10-2022 07:21-0400 SaO2% (BldA) [Mass fraction] 100 % Jerry STEVE [facility] 08-10-2022 07:19-0400 Body temperature 98.06 [degF] Jerry STEVE [facility] 08-10-2022 07:19-0400 Diastolic blood pressure 77 mm[Hg] Jerry STEVE [facility] 08-10-2022 07:19-0400 Mean blood pressure 86 mm[Hg] Jerry STEVE [facility] 08-10-2022 07:19-0400 Systolic blood pressure 104 mm[Hg] Jerry STEVE [facility] 08-10-2022 07:18-0400 Respiratory rate 18 /min Jerry STEVE [facility] 08-09-2022 20:27-0400 Blood Pressure Location Jerry STEVE [facility] 08-09-2022 20:27-0400 Body temperature 97.34 [degF] Jerry STEVE [facility] 08-09-2022 20:27-0400 Diastolic blood pressure 68 mm[Hg] Jerry STEVE [facility] 08-09-2022 20:27-0400 Heart rate 81 /min Jerry STEVE [facility] 08-09-2022 20:27-0400 Mean blood pressure 87 mm[Hg] Jerry STEVE [facility] 08-09-2022 20:27-0400 Respiratory rate 16 /min Jerry STEVE [facility] 08-09-2022 20:27-0400 Systolic blood pressure 126 mm[Hg] Jerry STEVE [facility] 08-09-2022 15:24-0400 Heart rate 77 /min Jerry STEVE [facility] 08-09-2022 15:24-0400 SaO2% (BldA) [Mass fraction] 98 % Jerry STEVE [facility] 08-09-2022 15:24-0400 Body temperature 98.24 [degF] Jerry STEVE [facility] 08-09-2022 15:24-0400 Diastolic blood pressure 64 mm[Hg] Jerry STEVE [facility] 08-09-2022 15:24-0400 Mean blood pressure 88 mm[Hg] Jerry STEVE [facility] 08-09-2022 15:24-0400 Systolic blood pressure 135 mm[Hg] Jerry STEVE [facility] 08-09-2022 15:15-0400 Blood Pressure Location Jerry STEVE [facility] 08-09-2022 15:15-0400 Respiratory rate 18 /min Jerry STEVE [facility] 08-09-2022 07:28-0400 SaO2% (BldA) [Mass fraction] 100 % Jerry STEVE [facility] 08-09-2022 07:27-0400 Mean blood pressure 86 mm[Hg] Jerry STEVE [facility] 08-09-2022 07:15-0400 Blood Pressure Location Jerry STEVE [facility] 08-08-2022 19:42-0400 Mean blood pressure 86 mm[Hg] Jerry STEVE [facility] 08-08-2022 08:15-0400 Mean blood pressure 85 mm[Hg] Jerry STEVE [facility] 08-07-2022 06:36-0400 bodymassindex 1.68 Jerry STEVE [facility] Comment on above: Result Comment: ^~:!Trace [facility] 08-07-2022 06:36-0400 Height/Length Percentile 61.53 Jerry STEVE [facility] Comment on above: Result Comment: ^~:!Percentile Source -[facility] 08-07-2022 06:36-0400 Height/Length Z-Score 0.29 Jerry STEVE [facility] Comment on above: Result Comment: ^~:!Trace [facility] 08-07-2022 06:36-0400 weight 1.76 Jerry STEVE [facility] Comment on above: Result Comment: ^~:!Trace [facility] 08-07-2022 06:36-0400 Weight Percentile 96.10 % Jerry STEVE [facility] Comment on above: Result Comment: ^~:!Percentile Source [facility] 08-04-2022 13:28-0400 Hourly Rounding Jerry STEVE [facility] 08-04-2022 13:00-0400 Hourly Rounding Jerry STEVE [facility] Comment on above: Result Comment: verbal and written disch arge instructions given to pt and family, encouraged to return for any prob or concerns 08-04-2022 12:00-0400 Hourly Rounding Jerry STEVE [facility] 08-04-2022 11:15-0400 Blood Pressure Location Jerry STEVE [facility] 08-04-2022 11:15-0400 Body temperature 98.06 [degF] Jerry STEVE [facility] 08-04-2022 11:15-0400 bodymassindex 1.67 Jerry STEVE [facility] Comment on above: Result Comment: ^~:![facility]Score [facility] 08-04-2022 11:15-0400 Diastolic blood pressure 58 mm[Hg] Jerry STEVE [facility] 08-04-2022 11:15-0400 Heart rate 115 /min Jerry STEVE [facility] 08-04-2022 11:15-0400 Height/Length Percentile 60.94 Jerry STEVE [facility] Comment on above: Result Comment: ^~:!Percentile Source -[facility] 08-04-2022 11:15-0400 Height/Length Z-Score 0.28 Jerry STEVE [facility] Comment on above: Result Comment: ^~:![facility] 08-04-2022 11:15-0400 Mean blood pressure 80 mm[Hg] Jerry STEVE [facility] 08-04-2022 11:15-0400 Respiratory rate 16 /min Jerry STEVE [facility] 08-04-2022 11:15-0400 Systolic blood pressure 124 mm[Hg] Jerry STEVE [facility] 08-04-2022 11:15-0400 weight 1.75 Jerry STEVE [facility] Comment on above: Result Comment: ^~:![facility]Score [facility] 08-04-2022 11:15-0400 Weight Percentile 95.98 % Jerry STEVE [facility] Comment on above: Result Comment: ^~:!Percentile Source - [place] 01-18-2022 14:00-0500 Body temperature 98.6 [degF] Ender Garfield [facility] 01-18-2022 14:00-0500 Diastolic blood pressure 60 mm[Hg] Ender Garfield [facility] 01-18-2022 14:00-0500 Heart rate 73 /min Ender Garfield [facility] 01-18-2022 14:00-0500 Mean blood pressure 78 mm[Hg] Ender Garfield [facility] 01-18-2022 14:00-0500 Respiratory rate 17 /min Ender Garfield [facility] 01-18-2022 14:00-0500 SaO2% (BldA) [Mass fraction] 100 % Ender Garfield [facility] 01-18-2022 14:00-0500 Systolic blood pressure 115 mm[Hg] Ender Garfield [facility] 01-18-2022 04:00-0500 Body temperature 98.24 [degF] Ender Garfield [facility] 01-18-2022 04:00-0500 Diastolic blood pressure 65 mm[Hg] Ender Garfield [facility] 01-18-2022 04:00-0500 Heart rate 68 /min Ender Garfield [facility] 01-18-2022 04:00-0500 Mean blood pressure 82 mm[Hg] Ender Garfield [facility] 01-18-2022 04:00-0500 Respiratory rate 18 /min Ender Garfield [facility] 01-18-2022 04:00-0500 SaO2% (BldA) [Mass fraction] 98 % Ender Garfield [facility] 01-18-2022 03:00-0500 Diastolic blood pressure 77 mm[Hg] Ender Merrill [facility] 01-18-2022 03:00-0500 Heart rate 63 /min Ender Merrill [facility] 01-18-2022 03:00-0500 Mean blood pressure 91 mm[Hg] Ender Merrill [facility] 01-18-2022 03:00-0500 SaO2% (BldA) [Mass fraction] 97 % Ender Merrill [facility] 01-18-2022 03:00-0500 Systolic blood pressure 120 mm[Hg] Ender Merrill [facility] 01-18-2022 01:11-0500 bodymassindex 1.29 Ender Merrill [facility] Comment on above: Result Comment: ^~:![employer] [facility] 01-18-2022 01:11-0500 Heart rate 76 /min Ender Merirll [facility] 01-18-2022 01:11-0500 Height/Length Percentile 61.95 Ender Merrill [facility] Comment on above: Result Comment: ^~:!Percentile Source -[place] 01-18-2022 01:11-0500 Height/Length Z-Score 0.30 Ender Merrill [facility] Comment on above: Result Comment: ^~:![email or web address] [facility] 01-18-2022 01:11-0500 weight 1.36 Ender Merrill [facility] Comment on above: Result Comment: ^~:![employer] [facility] 01-18-2022 01:11-0500 Weight Percentile 91.35 % Ender Merrill [facility] Comment on above: Result Comment: ^~:!Percentile Source -[place] 01-05-2022 11:30-0500 Diastolic blood pressure 72 mm[Hg] Ender Garfield [facility] 01-05-2022 11:30-0500 Heart rate 67 /min Ender Garfield [facility] 01-05-2022 11:30-0500 Mean blood pressure 82 mm[Hg] Ender Garfield [facility] 01-05-2022 11:30-0500 Respiratory rate 18 /min Ender Garfield [facility] 01-05-2022 11:30-0500 SaO2% (BldA) [Mass fraction] 100 % Ender Garfield [facility] 01-05-2022 11:30-0500 Systolic blood pressure 103 mm[Hg] Ender Garfield [facility] 01-05-2022 11:00-0500 Diastolic blood pressure 44 mm[Hg] Ender Garfield [facility] 01-05-2022 11:00-0500 Heart rate 65 /min Ender Garfield [facility] 01-05-2022 11:00-0500 Systolic blood pressure 94 mm[Hg] Ender Garfield [facility] 01-05-2022 10:46-0500 SaO2% (BldA) [Mass fraction] 99 % Ender Garfield [facility] 01-05-2022 10:30-0500 Diastolic blood pressure 53 mm[Hg] Ender Garfield [facility] 01-05-2022 10:30-0500 Heart rate 66 /min Ender Garfield [facility] 01-05-2022 10:30-0500 Respiratory rate 18 /min Ender Garfield [facility] 01-05-2022 10:30-0500 Systolic blood pressure 100 mm[Hg] Ender Garfield [facility] 01-05-2022 10:17-0500 Hourly Rounding Ender Garfield [facility] 01-05-2022 10:17-0500 Promise to Return Ender Garfield [facility] 01-05-2022 10:16-0500 Blood Pressure Location Ender Garfield [facility] 01-05-2022 10:16-0500 Mean blood pressure 68 mm[Hg] Ender Garfield [facility] 01-05-2022 09:19-0500 Blood Pressure Location Ender Garfield [facility] 01-05-2022 09:19-0500 Mean blood pressure 71 mm[Hg] Ender Garfield [facility] 01-05-2022 09:10-0500 Hourly Rounding Ender Garfield [facility] 01-05-2022 09:10-0500 Promise to Return Ender Garfield [facility] 01-05-2022 08:40-0500 Hourly Rounding Ender Garfield [facility] 01-05-2022 08:40-0500 Promise to Return Ender Garfield [facility] 01-05-2022 08:13-0500 Blood Pressure Location Ender Garfield [facility] 01-05-2022 07:52-0500 Body temperature 97.88 [degF] Ender Garfield [facility] 01-05-2022 07:52-0500 bodymassindex 1.28 Ender Merrill [facility] Comment on above: [facility] 07[facility]52-[facility] Heart rate 73 /min Ender Merrill [facility] 01-05-2022 07:52-0500 Height/Length Percentile 61.44 % Ender Merrill [facility] Comment on above: Result Comment: ^~:!Percentile [facility] 01-05-2022 07:52-0500 Height/Length Z-Score 0.29 Ender Merrill [facility] Comment on above: Result Comment: ^~:![facility] 01-05-2022 07:52-0500 weight 1.35 Ender Merrill [facility] Comment on above: Result Comment: ^~:![facility] 01-05-2022 07:52-0500 Weight Percentile 91.20 % Ender Merrill [facility] Comment on above: Result Comment: ^~:!Percentile Source [facility] 01-02-2022 14:15-0500 Diastolic blood pressure 50 mm[Hg] Steven Alatorre [facility] 01-02-2022 14:15-0500 Heart rate 65 /min Steven Alatorre [facility] 01-02-2022 14:15-0500 Mean blood pressure 66 mm[Hg] Steven Alatorre [facility] 01-02-2022 14:15-0500 Respiratory rate 16 /min Steven Alatorre [facility] 01-02-2022 14:15-0500 SaO2% (BldA) [Mass fraction] 100 % Steven Alatorre [facility] 01-02-2022 14:15-0500 Systolic blood pressure 99 mm[Hg] Steven Alatorre [facility] 01-02-2022 12:39-0500 Body temperature 97.88 [degF] Steven Alatorre [facility] 01-02-2022 12:39-0500 Diastolic blood pressure 75 mm[Hg] Steven Alatorre [facility] 01-02-2022 12:39-0500 Heart rate 61 /min Steven Alatorre [facility] 01-02-2022 12:39-0500 Respiratory rate 16 /min Steven Alatorre [facility] 01-02-2022 12:39-0500 SaO2% (BldA) [Mass fraction] 99 % Steven Alatorre [facility] 01-02-2022 12:39-0500 Systolic blood pressure 147 mm[Hg] Steven Alatorre [facility] 01-02-2022 12:39-0500 weight 1.41 Steven Alatorre [facility] Comment on above: Result Comment: ^~:!ZScore Source -[facility] 01-02-2022 12:39-0500 Weight Percentile 92.03 % Steven Alatorre [facility] Comment on above: Result Comment: ^~:!Percentile Source -[facility] 10-16-2021 21:35-0400 Nursing Progress Note Reason Other: discharge instructions given. pt verbalized understanding. [facility] 10-16-2021 20:12-0400 Body temperature 98.42 [degF] [facility] 10-16-2021 20:12-0400 Diastolic blood pressure 77 mm[Hg] [facility] 10-16-2021 20:12-0400 Heart rate 69 /min [facility] 10-16-2021 20:12-0400 Respiratory rate 18 /min [facility] 10-16-2021 20:12-0400 SaO2% (BldA) [Mass fraction] 98 % [facility] 10-16-2021 20:12-0400 Systolic blood pressure 113 mm[Hg] [facility] 09-14-2021 08:08-0400 Body temperature 98.42 [degF] Endersheng Merrill [facility] 09-14-2021 08:08-0400 Diastolic blood pressure 82 mm[Hg] Ender Merrill [facility] 09-14-2021 08:08-0400 Heart rate 71 /min Ender Merrill [facility] 09-14-2021 08:08-0400 Respiratory rate 18 /min Ender Garfield [facility] 09-14-2021 08:08-0400 SaO2% (BldA) [Mass fraction] 100 % Ender Merrill [facility] 09-14-2021 08:08-0400 Systolic blood pressure 127 mm[Hg] Ender Merrill [facility] 06-09-2021 18:18-0400 Hourly Rounding Ras Miller [facility] Comment on above: Result Comment: Pt up in room getting re warren for discharge; no other needs noted. 06-09-2021 17:04-0400 Hourly Rounding Ras Miller [facility] Comment on above: Result Comment: Pt visiting with friend; no other needs noted. 06-09-2021 16:20-0400 Blood Pressure Location Ras Miller [facility] 06-09-2021 16:20-0400 Body temperature 97.52 [degF] Ras Miller [facility] 06-09-2021 16:20-0400 Diastolic blood pressure 68 mm[Hg] Ras Miller [facility] 06-09-2021 16:20-0400 Heart rate 82 /min Ras Miller [facility] 06-09-2021 16:20-0400 Hourly Rounding Ras Miller [facility] Comment on above: Result Comment: Mom holding ; no n eeds noted. 06-09-2021 16:20-0400 Mean blood pressure 89 mm[Hg] Ras Miller [facility] 06-09-2021 16:20-0400 Respiratory rate 18 /min Ras Miller [facility] 06-09-2021 16:20-0400 Systolic blood pressure 132 mm[Hg] Ras Miller [facility] 06-09-2021 07:15-0400 Blood Pressure Location Ras Miller [facility] 06-09-2021 07:15-0400 Body temperature 98.78 [degF] Ras Miller [facility] 06-09-2021 07:15-0400 Diastolic blood pressure 65 mm[Hg] Ras Miller [facility] 06-09-2021 07:15-0400 Heart rate 84 /min Ras Miller [facility] 06-09-2021 07:15-0400 Mean blood pressure 84 mm[Hg] Ras Miller [facility] 06-09-2021 07:15-0400 Respiratory rate 20 /min Ras Miller [facility] 06-09-2021 07:15-0400 Systolic blood pressure 123 mm[Hg] Ras Miller [facility] 06-08-2021 20:35-0400 Body temperature 97.88 [degF] Ras Miller [facility] 06-08-2021 20:35-0400 Diastolic blood pressure 75 mm[Hg] Ras Miller [facility] 06-08-2021 20:35-0400 Heart rate 77 /min Ras Miller [facility] 06-08-2021 20:35-0400 Mean blood pressure 90 mm[Hg] Ras Miller [facility] 06-08-2021 20:35-0400 SaO2% (BldA) [Mass fraction] 97 % Ras Miller [facility] 06-08-2021 20:35-0400 Systolic blood pressure 121 mm[Hg] Ras Miller [facility] 06-08-2021 20:30-0400 Blood Pressure Location Ras Miller [facility] 06-08-2021 20:30-0400 Respiratory rate 18 /min Ras Miller [facility] 06-08-2021 18:30-0400 Promise to Return Ras Miller [facility] 06-08-2021 17:10-0400 Promise to Return Ras Miller [facility] 06-08-2021 16:45-0400 Promise to Return Ras Miller [facility] 06-08-2021 08:00-0400 Mean blood pressure 84 mm[Hg] Ras Miller [facility] 06-07-2021 23:30-0400 SaO2% (BldA) [Mass fraction] 99 % Ras Miller [facility] 06-07-2021 07:22-0400 Heart rate 72 /min Ras Miller [facility] Encounters Encounter Date Encounter Type Care Provider Facility Start: 06-24-2024 End: 06-24-2024 Bamboo flowsheet Jerry Steve DO Work Phone: [facility] Start: 06-24-2024 End: 06-24-2024 Bamboo flowsheet Jerry Steve DO Work Phone: [facility] Start: 06-24-2024 End: 06-24-2024 Office outpatient visit 15 minutes Jerry Steve DO Work Phone: [facility] Comment on above: 24 weeks gestation o f ; Second trimester Start: 06-24-2024 End: 06-24-2024 ambulatory JERRY STEVE Not Available Start: 06-19-2024 End: 06-19-2024 ambulatory Eduardo WRAY Facility:[facility] Start: 06-19-2024 End: 06-19-2024 Off-Site Eduardo WRAY [facility] Start: 06-16-2024 ambulatory Eduardo WRAY Facility:[facility] Start: 06-09-2024 End: 06-09-2024 Bamboo flowsheet Jerry Steve DO Work Phone: [facility] Start: 06-09-2024 End: 06-09-2024 Bamboo flowsheet Jerry Steve DO Work Phone: [facility] Start: 06-09-2024 End: 06-09-2024 ambulatory JERRY STEVE Not Available Start: 06-09-2024 End: 06-09-2024 Office outpatient visit 15 minutes Jerry Steve DO Work Phone: [facility] Comment on above: SOB (shortness of br eath); Follow-up exam; Nausea and vomiting, unspecified vomiting type Start: 06-04-2024 End: 06-04-2024 Clinisync Result Encounter Jerry Steve DO Work Phone: [facility] Unsolicited Start: 06-04-2024 End: 06-04-2024 Clinisync Result Encounter Jerry Steve DO Work Phone: [facility]solic[facility] Start: 05-27-2024 End: 05-27-2024 Clinisync Result Encounter Jerry Steve DO Work Phone: [facility] Unsolicited Start: 05-27-2024 End: 05-27-2024 Clinisync Result Encounter Jerry Steve DO Work Phone: [facility] Unsolicited Start: 05-22-2024 End: 05-22-2024 Bamboo flowsheet Jerry Steve DO Work Phone: [facility] Start: 05-22-2024 End: 05-23-2024 Bamboo flowsheet Jerry Steve DO Work Phone: [facility] Start: 05-22-2024 End: 05-23-2024 External Result Encounter Jerry Steve DO Work Phone: [facility] Unsolicited Start: 05-22-2024 End: 05-22-2024 Office outpatient visit 15 minutes Jerry Steve DO Work Phone: [facility] Comment on above: Exposure to STD; Need for maternal serum alpha-protein (MSAFP) screening; Second trimester ; 20 weeks gestation of ; Screening, , for anatomic survey; Wheezing Start: 05-22-2024 End: 05-22-2024 ambulatory JERRY STEVE Not Available Start: 05-09-2024 End: 05-09-2024 Office outpatient visit 5 minutes [facility] Steve Nurse [facility] Comment on above: GA: 17w5d Start: 05-09-2024 End: 05-09-2024 ambulatory JERRY WILSON Not Available Start: 04-01-2024 End: 04-01-2024 ambulatory John Paul Lovell MD Work Phone: [facility] Work Phone: Start: 04-01-2024 End: 04-01-2024 Patient encounter procedure John Paul Lovell MD Work Phone: [facility] Work Phone: Start: 01-09-2024 End: 01-09-2024 Lab Drop off Ras Miller [facility] Start: 01-02-2024 ambulatory Wil Brooks acility:[facility] Start: 01-02-2024 Registered Recurring oJhn Paul Lovell MD Work Phone: [facility] Start: 10-17-2023 End: 10-17-2023 Telephone encounter Mak Jordan NP Work Phone: [facility] Start: 10-16-2023 End: 10-16-2023 Bamboo flowsheet Mak Jordan MAIL HANDL[employer] SUPERVISOR Work Phone: [facility] Start: 10-16-2023 End: 10-16-2023 Bamboo flowsheet Mak Jordan MAIL HANDLERS SUPERVISOR Work Phone: [facility] Start: 10-16-2023 End: 10-16-2023 Initial preventive medicine new pt age 18-39yrs Mak Jordan MAIL HANDLERS SUPERVISOR Work Phone: [facility] Comment on above: Encounter for medica l examination to establish care (Primary Dx); Bipolar depression (CMS/HCC); Anxiety; Attention deficit hyperactivity disorder (ADHD), combined type (CMS/HCC); PTSD (post-traumatic stress disorder) (CMS/HCC); History of anemia; Screening for heart disease; Wheezing; COVID-19; Skin lesion of left arm Start: 10-16-2023 End: 10-16-2023 Patient encounter status Mak Mendez Jordan Work Phone: [facility] Start: 10-16-2023 End: 10-16-2023 ambulatory MAK JORDAN Not Available Start: 09-10-2023 End: 09-12-2023 Evaluation and management of inpatient Magalis Snow Facility:[facility] [place] [place] Start: 09-05-2023 End: 09-05-2023 ambulatory Magalis Snow Facility:[facility] [place] [place] Start: 09-05-2023 End: 09-05-2023 Lab Drop off Magalis Snow [facility] Start: 09-05-2023 End: 09-05-2023 ambulatory MAGALIS SNOW Not Available Start: 08-30-2023 End: 10-07-2023 Pre-admission assessment Magalis Snow [facility] Start: 08-29-2023 End: 08-29-2023 OB Triage Ras Miller [facility] Start: 07-20-2023 End: 08-21-2023 Pre-admission assessment Magalis Snow [facility] Start: 07-19-2023 End: 07-19-2023 ambulatory DO Magalis Snow Facility:[facility] [place] [place] Start: 07-19-2023 End: 07-19-2023 OB Triage Magalis Snow [facility] Start: 07-09-2023 End: 07-09-2023 ambulatory DO Magalis Snow Facility:[facility] [place] [place] Start: 07-09-2023 End: 07-09-2023 Patient encounter procedure Kourtney PIERCE [facility] Start: 07-09-2023 End: 07-09-2023 ambulatory MAGALIS SNOW Not Available Start: 03-20-2023 Bamboo flowsheet Kourtney kolb MAIL HANDLERS SUPERVISOR Work Phone: [facility] Start: 03-20-2023 Bamboo flowsheet Kourtney kolb MAIL HANDLERS SUPERVISOR Work Phone: [facility] Start: 03-20-2023 End: 03-20-2023 Office outpatient visit 25 minutes Kourtney Pierce MAIL [employer] SUPERVISOR Work Phone: [facility] Comment on above: GA: 12w6d Start: 03-19-2023 Chart abstracting Kourtney Pierce NP Work Phone: [facility] Start: 03-15-2023 End: 03-15-2023 flow sheet Kourtney Pierce MAIL HANDLERS SUPERVISOR Work Phone: [facility] Comment on above: GA: 12w1d Start: 02-13-2023 End: 02-13-2023 Emergency department patient visit Steven Alatorre [facility] Start: 01-26-2023 End: 01-26-2023 Emergency department patient visit Steven Alatorre [facility] Start: 01-23-2023 End: 01-23-2023 Emergency department patient visit Steven Alatorre [facility] Start: 01-01-2023 End: 01-01-2023 ambulatory Alon Johnson Facility:[facility] [place] [place] Start: 01-01-2023 End: 01-01-2023 Lab Drop off Alon Johnson [facility] Start: 01-01-2023 End: 01-01-2023 ambulatory Alon NewmanFarzad Alex Facility: [place] Start: 12-07-2022 End: 12-08-2022 Emergency department patient visit Damaris Wilson Ita [facility] Start: 10-30-2022 End: 10-30-2022 Emergency department patient visit Steven Alatorre [facility] Start: 08-07-2022 End: 08-10-2022 Evaluation and management of inpatient Ras Bahenaten Facility:[facility] [place] [place] Start: 08-07-2022 End: 08-10-2022 Evaluation and management of inpatient Jerry R STEVE [facility] Start: 08-05-2022 End: 09-05-2022 Pre-admission assessment Jerry R STEVE [facility] Start: 08-04-2022 End: 08-04-2022 ambulatory Jerry R STEVE Facility:[facility] [place] [place] Start: 08-04-2022 End: 08-04-2022 OB Triage Jerry R STEVE [facility] Start: 01-18-2022 End: 01-18-2022 Emergency department patient visit Ender Merrill [facility] Start: 01-05-2022 End: 01-05-2022 Emergency department patient visit Ender Merrill [facility] Start: 01-02-2022 End: 01-02-2022 Emergency department patient visit Steven Alatorre [facility] Start: 10-16-2021 End: 10-16-2021 Emergency department patient visit Ana Lloyd [facility] Start: 09-14-2021 End: 09-14-2021 Emergency department patient visit Ender Merrill [facility] Start: 06-07-2021 End: 06-09-2021 Evaluation and management of inpatient Ras Miller [facility] Start: 06-02-2021 End: 07-06-2021 Pre-admission assessment Ras Miller [facility] Start: 05-23-2021 End: 05-23-2021 Lab Drop off Ras Miller [facility] Start: 11-01-2020 End: 11-01-2020 ambulatory [facility] Facility: Procedures Date Procedure Procedure Detail Performing Clinician Start: 06-24-2024 Urnls dip stick/tabl et rgnt non-auto w/o micrscp Jerry Steve DO Work Phone: Start: 06-04-2024 [facility] UA (CLEAN/CATCH) ASH HANDLER/MICRO IF IND. Jerry Steve DO Work Phone: Start: 05-27-2024 US OB ANATOMY Jerry Xenia io DO Work Phone: Start: 05-27-2024 US OB CERVICAL LENGTH C orey Steve DO Work Phone: Start: 05-22-2024 RECURRENT VAGINITIS (HTRX) Jerry Steve DO Work Phone: Start: 05-22-2024 Urnls dip stick/tabl et rgnt non-auto w/o micrscp Jerry Steve DO Work Phone: Start: 05-09-2024 End: 05-09-2024 Urnls dip stick/tablet rgnt non-auto w/o micrscp Jerry Wilson DO Work Phone: Start: 03-20-2023 Urnls dip stick/tabl et rgnt non-auto w/o micrscp Kourtney F Kari MAIL HANDLERS SUPERVISOR Work Phone: None (qualifier value) Ras Miller Plan of Treatment Date Care Activity Detail Author Start: 10-06-2024 Influenza vaccination Influenz a Vaccine (Season Ended) [facility] Start: 07-22-2024 End: 07-22-2024 Patient encounter procedure 07/22/2024 1:20 PM EDT Routine [facility] [address] [place] [phone] Jerry Wilson, DO [address] [place] [address] [facility] Start: 06-24-2024 End: 06-24-2024 Patient encounter procedure [facility] Comment on above: Arrived Start: 05-26-2024 End: 05-26-2024 Patient encounter procedure 05/26/2024 9:20 AM EDT Routine [facility] [address] [place] [id number] Jerry Wilson, DO [address] [place] [address] [facility] Start: 05-22-2024 End: 06-21-2024 Alpha fetoprotein, maternal Alpha fetoprotein, maternal Lab Routine Need for maternal serum alpha-protein (MSAFP) screening Expected: 05/22/2024 (Approximate), Expires: 06/21/2024 [facility] Comment on above: Expected: 05/22/2024 (Approximate), Expires: 06/21/2024 Start: 05-22-2024 End: 08-21-2024 US for US OB 14+ weeks anatomy scan Imaging Routine Screening, , for anatomic survey Expected: 05/22/2024, Expires: 08/21/2024 [facility] Comment on above: Expected: 05/22/2024 , Expires: 08/21/2024 Start: 05-22-2024 End: 05-22-2024 Patient encounter procedure 05/22/2024 11:00 AM EDT Routine [facility] [address] [place] [phone] Jerry Wilson, DO [address] [place] [address] Arrived [facility] Comment on above: Arrived Start: 05-09-2024 End: 05-09-2025 ABO/Rh ABO/Rh Lab Routine Missed menses , unspecified gestational age Expected: 05/09/2024 (Approximate), Expires: 05/09/2025 [facility] Comment on above: Expected: 05/09/2024 (Approximate), Expires: 05/09/2025 Start: 05-09-2024 End: 06-08-2024 Alpha fetoprotein, maternal Alpha fetoprotein, maternal Lab Routine Missed menses , unspecified gestational age Encounter for supervision of normal first in first trimester Expected: 05/09/2024 (Approximate), Expires: 06/08/2024 [facility] Comment on above: Expected: 05/09/2024 (Approximate), Expires: 06/08/2024 Start: 05-09-2024 End: 05-09-2025 Blood type and Indirect antibody screen panel - Blood Type and screen Lab Routine Missed menses , unspecified gestational age Expected: 05/09/2024 (Approximate), Expires: 05/09/2025 [facility] Work Phone: Comment on above: Expected: 05/09/2024 (Approximate), Expires: 05/09/2025 Start: 05-09-2024 End: 05-09-2025 Drugs of abuse panel - Urine by Screen method Rapid drug screen, urine Lab Routine , unspecified gestational age Encounter for supervision of normal first in first trimester Expected: 05/09/2024 (Approximate), Expires: 05/09/2025 [facility] Comment on above: Expected: 05/09/2024 (Approximate), Expires: 05/09/2025 Start: 10-31-2023 End: 10-16-2024 CBC W Auto Differential panel - Blood CBC and differential Lab Routine Anemia, unspecified type Expected: 10/31/2023 (Approximate), Expires: 10/16/2024 [facility] Comment on above: Expected: 10/31/2023 (Approximate), Expires: 10/16/2024 Start: 10-31-2023 End: 10-16-2024 Ferritin [Mass/volume] in Serum or Plasma Ferritin Lab Routine Anemia, unspecified type Expected: 10/31/2023 (Approximate), Expires: 10/16/2024 [facility] Comment on above: Expected: 10/31/2023 (Approximate), Expires: 10/16/2024 Start: 10-31-2023 End: 10-16-2024 Iron and Iron binding capacity panel - Serum or Plasma Iron and TIBC Lab Routine Anemia, unspecified type Expected: 10/31/2023 (Approximate), Expires: 10/16/2024 [facility] Comment on above: Expected: 10/31/2023 (Approximate), Expires: 10/16/2024 Start: 10-31-2023 End: 10-16-2024 VITAMIN B12/FOLATE, SERUM PANEL VITAMIN B12/FOLATE, SERUM PANEL Lab Routine Anemia, unspecified type Expected: 10/31/2023 (Approximate), Expires: 10/16/2024 [facility] Work Phone: Comment on above: Expected: 10/31/2023 (Approximate), Expires: 10/16/2024 Start: 10-24-2023 End: 10-24-2023 ambulatory 10/24/2023 3:30 PM EDT Visit [facility] [address] [phone] Magalis Snow DO [address] [phone] [facility] Start: 10-22-2023 End: 10-22-2023 Patient encounter procedure 10/22/2023 2:55 PM EDT Office Visit [facility] [address] [place] [phone] Kellee Glynn, [employer] [address] [place] [address] [facility] Start: 10-16-2023 End: 10-15-2024 CBC W Auto Differential panel - Blood CBC and differential Lab Routine History of anemia Screening for heart disease Encounter for medical examination to establish care Expected: 10/16/2023 (Approximate), Expires: 10/15/2024 [facility] Comment on above: Expected: 10/16/2023 (Approximate), Expires: 10/15/2024 Start: 10-16-2023 End: 10-15-2024 Comprehensive metabolic 2000 panel - Serum or Plasma Comprehensive metabolic panel Lab Routine History of anemia Screening for heart disease Encounter for medical examination to establish care Expected: 10/16/2023 (Approximate), Expires: 10/15/2024 [facility] Work Phone: Comment on above: Expected: 10/16/2023 (Approximate), Expires: 10/15/2024 Start: 10-16-2023 End: 10-16-2023 Patient encounter procedure 10/16/2023 2:00 PM EDT Office Visit [facility] [address] [place] [phone] Mak Jordan NP [address] [place] [address] Arrived [facility] Comment on above: Arrived Start: 10-07-2023 Influenza vaccination Influenza Vacc ine (#1) [facility] Start: 04-13-2023 End: 03-15-2024 ABO/Rh ABO/Rh Lab Routine Supervision of normal intrauterine in multigravida, first trimester Expected: 04/13/2023 (Approximate), Expires: 03/15/2024 [facility] Work Phone: Comment on above: Expected: 04/13/2023 (Approximate), Expires: 03/15/2024 Start: 04-13-2023 End: 03-15-2024 Antibody screen Antibody screen Lab Routine Supervision of normal intrauterine in multigravida, first trimester Expected: 04/13/2023 (Approximate), Expires: 03/15/2024 [facility] Comment on above: Expected: 04/13/2023 (Approximate), Expires: 03/15/2024 Start: 04-13-2023 End: 03-15-2024 Bacteria identified in Urine by Culture Urine culture Microbiology Routine Supervision of normal intrauterine in multigravida, first trimester Expected: 04/13/2023 (Approximate), Expires: 03/15/2024 [facility] Comment on above: Expected: 04/13/2023 (Approximate), Expires: 03/15/2024 Start: 04-13-2023 End: 03-15-2024 CBC W Auto Differential panel - Blood CBC and differential Lab Routine Supervision of normal intrauterine in multigravida, first trimester Expected: 04/13/2023 (Approximate), Expires: 03/15/2024 [facility] Comment on above: Expected: 04/13/2023 (Approximate), Expires: 03/15/2024 Start: 04-13-2023 End: 03-15-2024 Drugs of abuse panel - Urine by Screen method Rapid drug screen, urine Lab Routine Supervision of normal intrauterine in multigravida, first trimester Expected: 04/13/2023 (Approximate), Expires: 03/15/2024 [facility] Comment on above: Expected: 04/13/2023 (Approximate), Expires: 03/15/2024 Start: 04-13-2023 End: 03-15-2024 Hepatitis B virus surface Ag [Presence] in Serum or Plasma by Immunoassay Hepatitis B surface Ag Lab Routine Supervision of normal intrauterine in multigravida, first trimester Expected: 04/13/2023 (Approximate), Expires: 03/15/2024 [facility] Comment on above: Expected: 04/13/2023 (Approximate), Expires: 03/15/2024 Start: 04-13-2023 End: 03-15-2024 HIV-1/HIV-2 antigen/antibody combination immunoassay HIV-1 and HIV-2 antibodies Lab Routine Supervision of normal intrauterine in multigravida, first trimester Expected: 04/13/2023 (Approximate), Expires: 03/15/2024 [facility] Comment on above: Expected: 04/13/2023 (Approximate), Expires: 03/15/2024 Start: 04-13-2023 End: 03-15-2024 Reagin Ab [Presence] in Serum by RPR RPR Lab Routine Supervision of normal intrauterine in multigravida, first trimester Expected: 04/13/2023 (Approximate), Expires: 03/15/2024 [facility] Comment on above: Expected: 04/13/2023 (Approximate), Expires: 03/15/2024 Start: 03-20-2023 End: 03-20-2023 ambulatory [facility] Comment on above: Arrived Bacteria identified in Urine by Culture Urine culture Microbiology Routine Missed menses Ordered: 05/09/2024 [facility] Comment on above: Ordered: 05/09/2024 CBC W Auto Different ial panel - Blood CBC and differential Lab Routine Missed menses , unspecified gestational age Ordered: 05/09/2024 [facility] Comment on above: Ordered: 05/09/2024 CHLAMYDIA TRACHOMATI S (GENITO/STI) CHLAMYDIA TRACHOMATIS (GENITO/STI) Lab Routine Exposure to STD Ordered: 05/22/2024 [facility] Comment on above: Ordered: 05/22/2024 Hemoglobin A1c/Hemoglobin.total in Blood Hemoglobin A1c Lab Routine Missed menses , unspecified gestational age Ordered: 05/09/2024 [facility] Comment on above: Ordered: 05/09/2024 Hepatitis B virus surface Ag [Presence] in Serum or Plasma by Immunoassay Hepatitis B surface antigen Lab Routine Missed menses , unspecified gestational age Ordered: 05/09/2024 [facility] Comment on above: Ordered: 05/09/2024 Hepatitis C virus Ab [Presence] in Serum or Plasma by Immunoassay Hepatitis C antibody Lab Routine Missed menses , unspecified gestational age Ordered: 05/09/2024 [facility] Comment on above: Ordered: 05/09/2024 HIV-1/HIV-2 antigen/antibody combination immunoassay HIV-1 and HIV-2 antibodies Lab Routine Missed menses , unspecified gestational age Ordered: 05/09/2024 [facility] Comment on above: Ordered: 05/09/2024 Neisseria gonorrhoea e DNA [Presence] in Unspecified specimen by TIM with probe detection Neisseria gonorrhea DNA probe, direct Lab Routine Exposure to STD Ordered: 05/22/2024 [facility] Comment on above: Ordered: 05/22/2024 Reagin Ab [Presence] in Serum by RPR RPR Lab Routine Missed menses , unspecified gestational age Ordered: 05/09/2024 [facility] Comment on above: Ordered: 05/09/2024 Rubella antibody, IgG Rubella an tibody, IgG Lab Routine Missed menses , unspecified gestational age Ordered: 05/09/2024 [facility] Comment on above: Ordered: 05/09/2024 SURESWAB(R) ADVANCED VAGINITIS PLUS, TMA SURESWAB(R) ADVANCED VAGINITIS PLUS, TMA Pathology and Cytology Routine Exposure to STD Ordered: 05/22/2024 [facility] Work Phone: Comment on above: Ordered: 05/22/2024 SURESWAB(R), CT/NG T VAGINALIS SURESWAB(R), CT/NG T VAGINALIS Pathology and Cytology Routine care, subsequent , first trimester Ordered: 03/20/2023 [facility] [employer] Work Phone: Comment on above: Ordered: 03/20/2023 Immunizations Immunization Date Immunization Notes Care Provider Fa jaya 08-09-2022 tetanus toxoid, reduced diphtheria toxoid, and acellular pertussis vaccine, adsorbed Jerry WILSON [facility] Comment on above: Reason for Medicatio n: Other (see comment) 06-08-2021 tetanus toxoid, reduced diphtheria toxoid, and acellular pertussis vaccine, adsorbed; Translations: [Boostrix (Tdap)] Ras Miller [facility] Comment on above: Reason for Medicatio n: Other (see comment) 10-28-2020 SARS-CoV-2 (COVID-19 ) mRNA BNT-162b2 lucie Johnson [facility] Comment on above: Result Comment: 2022: TPVAL 10-07-2020 SARS-CoV-2 (COVID-19 ) mRNA BNT-162b2 vax Alon Johnson [facility] Comment on above: Result Comment: 2022: TPVAL 09-21-2016 hepatitis A vaccine, adult dosage Ras Miller [facility] 09-21-2016 HPV, unspecified formulation Ras Miller [facility] 09-21-2016 meningococcal ACWY vaccine, unspecified formulation Ras Miller [facility] 09-21-2016 tetanus toxoid, reduced diphtheria toxoid, and acellular pertussis vaccine, adsorbed Ras Mliler [facility] 06-26-2008 diphtheria, tetanus toxoids and acellular pertussis vaccine Ras Miller [facility] 06-26-2008 measles, mumps and rubella virus vaccine Ras Miller [facility] 06-26-2008 poliovirus vaccine, unspecified formulation Ras Miller [facility] 06-26-2008 varicella virus vaccine Ras Miller [facility] 10-02-2005 diphtheria, tetanus toxoids and acellular pertussis vaccine Ras Miller [facility] 10-02-2005 haemophilus influenz ae type b vaccine, HbOC conjugate Ras Miller [facility] 10-02-2005 hepatitis B vaccine, adult dosage Ras Miller [facility] 10-02-2005 measles, mumps and rubella virus vaccine Ras Miller [facility] 10-02-2005 poliovirus vaccine, unspecified formulation Ras Miller [facility] 10-02-2005 varicella virus vaccine Ras Miller [facility] 2004 diphtheria, tetanus toxoids and acellular pertussis vaccine Ras Miller [facility] 2004 haemophilus influenz ae type b vaccine, HbOC conjugate Ras Miller [facility] 2004 hepatitis B vaccine, adult dosage Ras Miller [facility] 2004 pneumococcal conjuga te vaccine, 13 valent Ras Miller [facility] 2004 poliovirus vaccine, unspecified formulation Ras Miller [facility] 2004 diphtheria, tetanus toxoids and acellular pertussis vaccine Ras Miller [facility] 2004 haemophilus influenz ae type b vaccine, HbOC conjugate Ras Miller [facility] 2004 hepatitis B vaccine, adult dosage Ras Miller [facility] 2004 pneumococcal conjuga te vaccine, 13 valent Ras Miller [facility] 2004 poliovirus vaccine, unspecified formulation Ras Miller [facility] NEGATED: Highlighted row has not occurred!01-01-2023 influenza virus vaccine, unspecified formulation Alon Johnson [facility] Payers Date Payer Category Payer Self-pay 2022 Medicaid [id number] 2022 Medicaid [id number] 2004 Unknown [id number] 2.16.8 40.1.672786.3.579.2.727 2004 Unknown [id number] 2.16.8 40.1.466489.3.579.2.727 2004 Unknown [id number] 2.16.8 40.1.948620.3.579.2.727 2004 Unknown [id number] 2.16.8 40.1.951976.3.579.2.727 2004 Unknown [id number] 2.16.8 40.1.276209.3.579.2.72 2004 Unknown [id number] 2.16.8 40.1.506971.3.579.2.727 2004 Unknown [id number] 2.16.8 40.1.235151.3.579.2.7 2004 Unknown [id number] 2.16.8 40.1.098933.3.579.2.727 2004 Unknown [id number] 2.16.8 40.1.873540.3.579.2. 2004 Unknown [id number] 2.16.8 40.1.741436.3.579.2.727 2004 Unknown [id number] 2.16.8 40.1.487154.3.579.2.727 2004 Unknown [id number] 2.16.8 40.1.190541.3.579.2.727 2004 Unknown [id number] 2.16.8 40.1.888578.3.579.2.727 2004 Unknown [id number] 2.16.8 40.1.848303.3.579.2.727 2004 Unknown [id number] 2.16.8 40.1.465492.3.579.2.727 2004 Unknown [id number] 2.16.8 40.1.363412.3.579.2.727 2004 Unknown [id number] 2.16.8 40.1.794758.3.579.2.727 2004 Unknown [id number] 2.16.8 40.1.361147.3.579.2.727 2004 Unknown [id number] 2.16.8 40.1.115111.3.579.2.727 2004 Unknown [id number] 2.16.8 40.1.268354.3.579.2.727 2004 Unknown [id number] 2.16.84 0.1.195652.3.579.2.1259 2004 Unknown [id number] 2.16.84 0.1.976763.3.579.2.9 2004 Unknown [id number] 2.16.84 0.1.788297.3.579.2.1259 2004 Unknown [id number] 2.16.84 0.1.057362.3.579.2.1259 2004 Unknown [id number] 2.16.84 0.1.711461.3.579.2.1259 2004 Unknown [id number] 2.16.84 0.1.250466.3.579.2.1259 2004 Unknown [id number] 2.16.84 0.1.685962.3.579.2.1259 2004 Unknown [id number] 2.16.84 0.1.795866.3.579.2.1259 2004 Unknown [id number] 2.16.84 0.1.695059.3.579.2.1259 1978 Unknown [id number] 2.16.84 0.1.018209.3.579.2.593 1959 Unknown [id number] Unknown [id number] Social History Date Type Detail Facility Tobacco Never smoker [facility] Comment on above: denies Start: 03-15-2023 End: 10-16-2023 Sex Assigned At Female [facility] Tobacco smoking status [facility] Start: 01-01-2023 End: 03-15-2023 Tobacco smoking status Never smoked tobacco (finding) [facility] Comment on above: smokers in home Tobacco smoking status Never [facility] Comment on above: smokers in home Start: 03-15-2023 Tobacco use and exposure Smokeless tobacco non-user [facility] Start: 03-15-2023 End: 06-24-2024 Alcohol intake Ex-drinker (finding) [facility] Start: [...] Sex Assigned At Not on file [facility] Tobacco smoking stat us NHIS Unknown if ever smoked [facility] Work Phone: Start: 05-19-2009 End: 04-01-2024 Sex Female (finding) [facility] Start: 2004 Sex Assigned At Female F [facility] Functional Status Date Assessment Result Facility 06-19-2024 Functional Status N/A [facility] 09-10-2023 Functional Status No [facility] 08-29-2023 Functional Status N/A [facility] 07-19-2023 Functional Status N/A [facility] 02-13-2023 Functional Status N/A [facility] 01-26-2023 Functional Status N/A [facility] 01-23-2023 Functional Status N/A [facility] 12-07-2022 Functional Status N/A [facility] 10-30-2022 Functional Status N/A [facility] 08-07-2022 Functional Status N/A [facility] 08-04-2022 Functional Status N/A [facility] 01-18-2022 Functional Status N/A [facility] 01-05-2022 Functional Status N/A [facility] 01-02-2022 Functional Status N/A [facility] 10-16-2021 Functional Status N/A [facility] 09-14-2021 Functional Status N/A [facility] Clinical Notes 05-23-2021 to 06-24-2024 Tavia Moeller LPN - 06/24/2024 1:50 PM BREANA Bearden - 06/09/2024 10:50 AM EDJaime Juarez MA - 05/22/2024 11:00 AM Maxwell Ohara LPN - 05/09/2024 9:30 AM EDT Note Date & Type Note Facility 06-24-2024 History of Present illness Narrative Reason for Appointment: Patient ID: Jordin Tyler is a 19 y.o. female who presents for No chief complaint on file. Patient presents today for Return OB appointment. MEDICATIONS Current Outpatient Medications Medication Instructions iron polysaccharides (PROFE) 391.3 mg, Oral, Daily Vit-Fe Fumarate-FA ( Vitamins) 28-0.8 MG tablet 1 tablet, Oral, Daily ALLERGIES Allergies Allergen Reactions Amoxicillin PROBLEMS Active Ambulatory Problems Diagnosis Date Noted No Active Ambulatory Problems Resolved Ambulatory Problems Diagnosis Date Noted No Resolved Ambulatory Problems Past Medical History: Diagnosis Date Anemia Chlamydia HISTORY PAST MEDICAL HISTORY SOCIAL HISTORY Past Medical History: Diagnosis Date Anemia Chlamydia Social History Tobacco Use Smoking status: Never Smokeless tobacco: Never Vaping Use Vaping status: Never Used Substance Use Topics Alcohol use: Not Currently Drug use: Never FAMILY HISTORY Family History Problem Relation Name Age of Onset Lung cancer Father 52 mets to brain SURGICAL HISTORY History reviewed. No pertinent surgical history. REVIEW OF SYSTEMS Review of Systems: Review of Systems Constitutional: Negative. HENT: Negative. Eyes: Negative. Respiratory: Negative. Cardiovascular: Negative. Gastrointestinal: Negative. Genitourinary: Negative. Musculoskeletal: Negative. Skin: Negative. Neurological: Negative. All other systems reviewed and are negative. Hematological: Negative. Endocrine: Negative. Allergic/Immunologic: Negative. OBJECTIVE Objective: Physical Exam Constitutional: Appearance: Normal appearance. She is well-developed. Cardiovascular: Rate and Rhythm: Normal rate and regular rhythm. Pulmonary: Effort: Pulmonary effort is normal. Breath sounds: Normal breath sounds. Abdominal: General: Bowel sounds are normal. There is no distension. Palpations: Abdomen is soft. Tenderness: There is no abdominal tenderness. There is no guarding or rebound. Musculoskeletal: General: No swelling. Normal range of motion. Right lower leg: No edema. Left lower leg: No edema. Neurological: Mental Status: She is alert and oriented to person, place, and time. Skin: General: Skin is warm and dry. Psychiatric: Mood and Affect: Mood normal. Behavior: Behavior normal. Vitals and nursing note reviewed. Exam conducted with a first grade teacher present. Vitals: Estimated body mass index is 27.7 kg/m as calculated from the following: Height as of 10/16/23: 5' 4 . Weight as of this encounter: 161 lb 6.4 oz. BP: 100/58 Patient's last menstrual period was 02/23/2024. ASSESSMENT & PLAN ICD-10-CM 1. 24 weeks gestation of Z3A.24 POCT urinalysis dipstick manually resulted 2. Second trimester Z34.92 POCT urinalysis dipstick manually resulted Patient presents today for a routine obstetrics appointment. Patient is currently 24w2d with a Estimated Date of Delivery: 10/12/24. deputies given labs and ultrasound orders for patient to have obtained prior to her return in 4 weeks. Pt and 's voiced understanding. Documented by Tavia Meoller LPN on behalf of: Jerry Steve, DO documented in this encounter [facility] 06-09-2024 History of Present illness Narrative Reason for Appointment: Patient ID: Jordin Tyler is a 19 y.o. female who presents for ER Follow-up Patient presents today for Acute Visit. MEDICATIONS Current Outpatient Medications Medication Instructions albuterol HFA (ProAir HFA) 90 mcg/act inhaler 2 puffs, Inhalation, Every 4 hours PRN albuterol HFA (Ventolin HFA) 90 mcg/act inhaler 2 puffs, Inhalation, Every 4 hours PRN azithromycin (Zithromax Z-Ramiro) 250 MG tablet As directed iron polysaccharides (PROFE) 391.3 mg, Oral, Daily metoclopramide (REGLAN) 10 mg, Oral, 3 times daily before meals, Take 1 tablet by mouth 30 minutes prior to meals 3 times daily as needed for nausea. ondansetron ODT (ZOFRAN-ODT) 4 mg, Oral, Every 6 hours PRN Vit-Fe Fumarate-FA ( Vitamins) 28-0.8 MG tablet 1 tablet, Oral, Daily ALLERGIES No Known Allergies PROBLEMS Active Ambulatory Problems Diagnosis Date Noted No Active Ambulatory Problems Resolved Ambulatory Problems Diagnosis Date Noted No Resolved Ambulatory Problems Past Medical History: Diagnosis Date Anemia Chlamydia HISTORY PAST MEDICAL HISTORY SOCIAL HISTORY Past Medical History: Diagnosis Date Anemia Chlamydia Social History Tobacco Use Smoking status: Never Smokeless tobacco: Never Vaping Use Vaping status: Never Used Substance Use Topics Alcohol use: Not Currently Drug use: Never FAMILY HISTORY Family History Problem Relation Name Age of Onset Lung cancer Father 52 mets to brain SURGICAL HISTORY History reviewed. No pertinent surgical history. REVIEW OF SYSTEMS Review of Systems: Review of Systems Constitutional: Negative. HENT: Negative. Eyes: Negative. Respiratory: Negative. Cardiovascular: Negative. Gastrointestinal: Negative. Genitourinary: Negative. Musculoskeletal: Negative. Skin: Negative. Neurological: Negative. All other systems reviewed and are negative. Hematological: Negative. Endocrine: Negative. Allergic/Immunologic: Negative. OBJECTIVE Objective: Physical Exam Constitutional: Appearance: Normal appearance. She is normal weight. HENT: Head: Normocephalic. Cardiovascular: Rate and Rhythm: Normal rate. Pulses: Normal pulses. Pulmonary: Effort: Pulmonary effort is normal. Breath sounds: Normal breath sounds. Abdominal: Palpations: Abdomen is soft. Musculoskeletal: General: Normal range of motion. Neurological: General: No focal deficit present. Mental Status: She is alert and oriented to person, place, and time. Psychiatric: Mood and Affect: Mood normal. Behavior: Behavior normal. Thought Content: Thought content normal. Judgment: Judgment normal. Vitals and nursing note reviewed. Vitals: Estimated body mass index is 27.77 kg/m as calculated from the following: Height as of 24: 5' 4 . Weight as of this encounter: 161 lb 12.8 oz. BP: 114/70 Patient's last menstrual period was 02/23/2024. ASSESSMENT & PLAN ICD-10-CM 1. SOB (shortness of breath) R06.02 2. Follow-up exam Z09 3. Nausea and vomiting, unspecified vomiting type R11.2 metoclopramide (Reglan) 10 MG tablet Return OB: Patient presents today for a routine obstetrics appointment. Patient is currently 22w1d . Patient states she is doing well but has complaints of being tired due to current . Patient has verbalizes frequent movement. Patient seen today for er follow up s/p abdominal pain and cramping to left upper quadrant, some spotting and nauseated post eating. We will send in reglan for patient and follow up in 2 weeks No orders of the defined types were placed in this encounter. Follow Up: Patient is to return to office in 2 week for routine OB appointment. Documented by BREANA Chapin on behalf of: Jerry Wilson DO documented in this encounter [facility] 05-22-2024 History of Present illness Narrative Reason for Appointment: Patient ID: Jordin Tyler is a 19 y.o. female who presents for Routine Visit Patient presents today for STD Check. and Return OB appointment. MEDICATIONS Current Outpatient Medications Medication Instructions albuterol (ProAir RespiClick) 90 mcg/act breath-activated inhaler 2 puffs, Inhalation, Every 4 hours PRN albuterol HFA (ProAir HFA) 90 mcg/act inhaler 2 puffs, Inhalation, Every 4 hours PRN azithromycin (Zithromax Z-Ramiro) 250 MG tablet As directed Vit-Fe Fumarate-FA ( Vitamins) 28-0.8 MG tablet 1 tablet, Oral, Daily ALLERGIES No Known Allergies PROBLEMS Active Ambulatory Problems Diagnosis Date Noted No Active Ambulatory Problems Resolved Ambulatory Problems Diagnosis Date Noted No Resolved Ambulatory Problems Past Medical History: Diagnosis Date Anemia Chlamydia HISTORY PAST MEDICAL HISTORY SOCIAL HISTORY Past Medical History: Diagnosis Date Anemia Chlamydia Social History Tobacco Use Smoking status: Never Smokeless tobacco: Never Vaping Use Vaping status: Never Used Substance Use Topics Alcohol use: Not Currently Drug use: Never FAMILY HISTORY Family History Problem Relation Name Age of Onset Lung cancer Father 52 mets to brain SURGICAL HISTORY History reviewed. No pertinent surgical history. REVIEW OF SYSTEMS Review of Systems: Review of Systems Constitutional: Negative. HENT: Negative. Eyes: Negative. Respiratory: Negative. Cardiovascular: Negative. Gastrointestinal: Negative. Genitourinary: Negative. Musculoskeletal: Negative. Skin: Negative. Neurological: Negative. All other systems reviewed and are negative. Hematological: Negative. Endocrine: Negative. Allergic/Immunologic: Negative. OBJECTIVE Objective: Physical Exam Constitutional: Appearance: Normal appearance. She is normal weight. Genitourinary: Right Adnexa: not tender and no mass present. Left Adnexa: not tender and no mass present. No cervical discharge. Breasts: Breasts are soft. Right: Normal. Left: Normal. HENT: Head: Normocephalic. Nose: Nose normal. Mouth/Throat: Mouth: Mucous membranes are moist. Cardiovascular: Rate and Rhythm: Normal rate. Pulses: Normal pulses. Pulmonary: Effort: Pulmonary effort is normal. Breath sounds: Normal breath sounds. Abdominal: General: Bowel sounds are normal. Palpations: Abdomen is soft. Musculoskeletal: General: Normal range of motion. Cervical back: Normal range of motion. Neurological: General: No focal deficit present. Mental Status: She is alert and oriented to person, place, and time. Skin: General: Skin is warm and dry. Psychiatric: Mood and Affect: Mood normal. Behavior: Behavior normal. Thought Content: Thought content normal. Judgment: Judgment normal. Vitals and nursing note reviewed. Exam conducted with a first grade teacher present. Vitals: Estimated body mass index is 26.95 kg/m as calculated from the following: Height as of 10/16/23: 5' 4 . Weight as of this encounter: 157 lb. BP: 118/72 Patient's last menstrual period was 02/23/2024. ASSESSMENT & PLAN ICD-10-CM 1. Exposure to STD Z20.2 SURESWAB(R) ADVANCED VAGINITIS PLUS, TMA CHLAMYDIA TRACHOMATIS (GENITO/STI) Neisseria gonorrhea DNA probe, direct 2. Need for maternal serum alpha-protein (MSAFP) screening Z36.1 Alpha fetoprotein, maternal Alpha fetoprotein, maternal 3. Second trimester Z34.92 POCT urinalysis dipstick manually resulted 4. 20 weeks gestation of Z3A.20 5. Screening, , for anatomic survey Z36.89 US OB 14+ weeks anatomy scan 6. Wheezing R06.2 albuterol (ProAir RespiClick) 90 mcg/act breath-activated inhaler azithromycin (Zithromax Z-Ramiro) 250 MG tablet Return OB/Annual Exam: Patient presents today for an annual exam/routine obstetrics appointment. Patient is currently 19w4d . Patient is doing well and states she has complaints of wheezing and hard time to breath at times. Had been to [facility] ER twice on 05/16/2024 and 05/19/2024 and was given breathing treatments no inhaler or meds. Holli Roque listened to her lungs and could hear some wheezing and prescribed an inhaler along w/Zpak. Cultures was obtained without difficulty and patient was given msAFP/US order to have obtained. Orders Placed This Encounter Procedures US OB 14+ weeks anatomy scan CHLAMYDIA TRACHOMATIS (GENITO/STI) Neisseria gonorrhea DNA probe, direct Alpha fetoprotein, maternal POCT urinalysis dipstick manually resulted Follow Up: Patient is to return to our office in 4 weeks for routine OB appointment Documented by Tamy Juarez MA on behalf of: breana chapin documented in this encounter [facility] 05-09-2024 History of Present illness Narrative Reason [...] or undercooked meat, and stay away from [facility]. Patient has also been advised to not change litter boxes and eat 6 small meals a day. Patient has been consulted regarding the do's and don'ts of . Patient was given labs and all questions and concerns were answered. Patient given MSAFP to have obtained. Patient declined [place]. Prenatals sent into pharmacy. Follow Up: Patient [...] or undercooked meat, and stay away from [facility]. Patient has also been advised to not change litter boxes and eat 6 small meals a day. Patient has been consulted regarding the do's and don'ts of . Patient was given labs and all questions and concerns were answered. [facility], Declined [place] and script for sent. Follow Up: Patient is to return in 2 weeks for routine OB appointment. Follow Up: Patient is to have labs drawn at directed and return to office for initial OB appointment with provider. Patient may call office as needed with any concerns or questions. Nurse Visit Completed by: Priscilla Ohara LPN documented in this encounter [facility] 01-09-2024 Evaluation + Plan note Diagnostic Tests PendingChlamydia/Gonococcus, TIM 01/09/24 [facility] 10-17-2023 Telephone encounter Note Abnormal labs [facility] 10-17-2023 Miscellaneous Notes Abnormal labs documented in this encounter [facility] 10-16-2023 History of Present illness Narrative Jordin [...] to take meds for it. Sofía from [facility] is her therapist and [...] 1.53)* * Growth percentiles are based on [facility] (Girls, 2-20 Years) data. Physical Exam General: [...] - CBC and differential; Future Bipolar depression (CMS/HCC) - Ambulatory referral to Psychiatry; Future Anxiety - Ambulatory referral to Psychiatry; Future Attention deficit hyperactivity disorder (ADHD), combined type ([facility]) - Ambulatory referral to Psychiatry; Future PTSD (post-traumatic stress disorder) ([facility]) - Ambulatory referral to Psychiatry; Future History [...] Future Pt is to continue counseling at [facility]. Blood pressure looks good. documented in this encounter [facility] 09-12-2023 Note Discharge Instructio ns Given Worsening The following Patient Education Materials have been given to the patient: [facility] Plan note Extrac [...] Headache, # 90 tab(s), Refills(s) 1, Pharmacy: [facility], 165.1, cm, 09/10/23 21:47:00 EDT, Height/Length Dosing, 84.5, kg, 08/05/24 21:47:00 EDT, Weight Dosing docusate, 100 mg = 1 cap(s), Oral, BID, # 30 cap(s), Refills(s) 1, Pharmacy: [facility], 165.1, cm, 09/10/23 21:47:00 EDT, Height/Length Dosing, 84.5, kg, 09/10/23 21:47:00 EDT, Weight Dosing ferrous sulfate, 325 mg = 1 tab(s), Oral, BIDWM, # 60 tab(s), Refills(s) 5, Pharmacy: [facility], 165.1, cm, 09/10/23 21:47:00 [...] comment), # 60 tab(s), Refills(s) 1, Pharmacy: [facility], 165.1, cm, 09/10/23 21:47:00 [...] Insertion Place in Status Shower Vital Signs [facility] [id number] NoteGetWell Understands Education Yes GetWell Education Video How to Swaddle Safely [facility]Well [facility] NoteGetWell Learning Participants Patient GetWell Understands Education Yes GetWell Education Video [facility]self [facility]24 NoteGetWell Education Video Caring for Your [place]: Sleeping GetWell Learning Participants Patient GetWell Understands Education [facility] NoteGetWell Understands Education Yes GetWell Education Video Jaundice in Newborns GetWell Learning Participants [facility]08-07-2024 NoteGetWell Education Video Bathing Your Baby GetWell Learning Participants Patient GetWell Understands Education [facility]08-07-2024 NoteGetWell Understands Education Yes GetWell Education Video Caring for Your : Feeding GetWell Learning Participants [facility]08-07-2024 NoteGetWell Education Video Using a Rubber Bulb to Clear a Baby's Nose GetWell Learning Participants Patient GetWell Understands Education [facility]08-07-2024 NoteGetWell Learning Participants Patient GetWell Education Video Safe Sleep for Babies GetWell Understands Education [facility]08-07-2024 NoteGetWell Education Video Understanding Depression GetWell Understands Education GetWell Learning [facility]08-07-2024 NoteGetWell Learning Participants Patient GetWell Understands Education Yes GetWell Education Video Ways to Keep Your Baby [facility]08-07-2024 NoteGetWell Learning Participants Patient GetWell Understands Education Yes GetWell Education Video [facility]24 NoteGetWell Understands Education Yes GetWell Education Video Avoiding Infections in the Hospital GetWell Learning Participants [facility]08-07-2024 NoteGetWell Understands Education Yes GetWell Education Video How to Prevent Abusive Head Trauma GetWell Learning Participants [facility]08-07-2024 NoteGetWell Understands Education Yes GetWell Education Video Caring for Your Stanton: Umbilical Cord GetWell Learning Participants [facility]08-07-2024 NoteDischarge Instructions Given Worsening The following Patient Education Materials have been given to the patient: ~~ [facility] NoteDischarge Summary Assessment/Plan Anemia affecting , [...] Headache, # 90 tab(s), Refills(s) 1, Pharmacy: [facility] 1985, 165.1, cm, 09/10/23 21:47:00 EDT, Height/Length Dosing, 84.5, kg, 09/10/23 21:47:00 EDT, Weight Dosing docusate, 100 mg = 1 cap(s), Oral, BID, # 30 cap(s), Refills(s) 1, Pharmacy: [facility] 1985,165.1, cm, 09/10/23 21:47:00 EDT, Height/Length Dosing, 84.5, kg, 09/10/23 21:47:00 EDT, Weight Dosing ferrous sulfate, 325 mg = 1 tab(s), Oral, BIDWM, # 60 tab(s), Refills(s) 5, Pharmacy: [facility] 1985, 165.1, cm, 09/10/23 21:47:00 EDT, Height/Length Dosing, 84.5, kg, 09/10/23 21:47:00 EDT, Weight Dosing HYDROmorphone, 2 mg = 1 tab(s), Tab, Oral, Once PRN Pain 8-10, Routine, Start date 09/11/23 23:48:00 EDT, if pain unrelieved from other pain medications or remedies, 09/11/23 23:48:00 EDT ibuprofen, 600 mg = 1 tab(s), Oral, q6hr, PRN Other (see comment), # 60 tab(s), Refills(s) 1, Pharmacy: [facility] 1985, 165.1, cm, 09/10/23 21:47:00 EDT, Height/Length [...] cord and intact placenta was delivered spontaneously. IUZ968 mL. Patient recovering and stable condition in [...] Details Baby A Delivery Type:Vaginal D-EGA at Nhweqaib43 weeks 5 days Total Length of Labor:259 [...] Physician: Magalis Snow DO (more content not included)...[facility] HospitalComment on above: Result Comment: Electronically Signed By: Magalis Snow DO\.br\Date and Time Signed: 09/12/23 08:47 [id number] Hospital Discharge instructions Patient Education 09/11/2023 18:38:23 [...] , tell your health care provider or business employment specialist. If you do not breastfeed: ?Avoid touching your breasts. Do not squeeze out (express) milk. Doing this can make your breasts produce more milk. ?Wear a bra that supports your breasts and fits well. Use cold packs to help with swelling. ?Talk to your health care provider about what fdij-elw-ilqpnbi medicines can help with pain. Intimacy and [...] control (contraception) or family planning. Medicines Take wxvf-jyt-xrexfsh and prescription medicines only as told by your health care provider. Take an gajo-ley-ztrnndl stool softener to help ease bowel movements as told by your health care provider. If you were prescribed antibiotics, take them as told by your health care provider. Do not stop using the antibiotic even if you start to feel better. Review all previous and current prescriptions to check for the possible transfer into your breast milk. Ask your health care provider or business employment specialist for help if needed. Activity Gradually [...] increase the risk of illness and sudden infant syndrome (SIDS). ?Nicotine and other chemicals pass [...] Services Office of Women's Health: womenshealth.gov The [place] [employer]: acog.org Contact [...] emergency room or: Call 911. Call the National Suicide Prevention Lifeline at or 512. This is open 24 hours a day. Text the Crisis Text Line at 760212. Summary The period of time after you [...] provider. Document Revised: 05/10/2022 Document Reviewed: 04/25/2022 [employer] Patient Education 2022 [employer]. 09/11/2023 05:46:09 Anemia Anemia Anemia is a [...] spleen. Follow these instructions at home: Take oqrl-fxg-amgfgvz and prescription medicines only as told by [...] provider. Document Revised: 04/17/2022 Document Reviewed: 04/17/2022 [employer] Patient Education 2022 [employer]. Follow Up Care 09/10/2023 21:03:40 With:Magalis Snow Address: [address] [place] [phone] Business (1) When:6 weeks [facility] [id number] NoteDischarge Instructions Given Worsening The following Patient Education Materials have been given to the patient: ~~ [facility] NoteProgress Note-Physician Patient: JORDIN TYLER Age: 18 years Sex: Female : 2005 Associated Diagnoses: None Author: Ra Casas Jr., DO Postoperative Information Postoperative disposition: Postoperative disposition: Day 2. Optimetrix number: Optimetrix number [id number]. Anesthetic utilized: Regional: Epidural. Physical Examination Hemodynamically stable. Pain Assessment: Controlled. General: Awake, Alert, Appropriate. Respiratory: Adequate air exchange. Cardiovascular: Stable. Neurological: Normal sensory function. Assessment Anesthetic outcome No post-epidural complications noted.. Review / Management Condition: Stable. Plan Transfer/Discharge: Stable for discharge from anesthetic standpoint..[facility] HospitalComment on above:Result Comment: Electronically Signed By: Ra Casas Jr., DO\.br\Date and Time Signed: 09/11/23 07:10 [id number] NoteProgress Note-Physician Patient: JORDIN TYLER Age: 18 years Sex: Female : 2005 Associated Diagnoses: None Author: Ra Casas Jr., DO Chief Complaint Intrauterine Health Status Allergies: Allergic Reactions (All) No Known Allergies Canceled/Inactive Reactions (All) No Known Medication Allergies Current medications.Problem list: All Problems 37 weeks gestation of / SNOMED CT 09304860 / Confirmed ADHD (attention deficit hyperactivity disorder), combined type / SNOMED CT 15628969 / Confirmed Age mother conceived under 17 / Patient Care / Confirmed Encounter for supervision of normal first , third trimester / SNOMED CT 273223622 / Confirmed Infection / SNOMED CT 10652695 / Confirmed / SNOMED CT 405903561 / Confirmed Shortness of breath in pediatric patient / SNOMED CT 271257538 / Confirmed Very young maternal age, antepartum / SNOMED CT 212977405 / Confirmed Resolved: Acute gastroenteritis / SNOMED CT 177528947 resolved per patient Resolved: Acute low back pain due to trauma / SNOMED CT 630223642 resolved per patient Resolved: Blurry vision, left eye / SNOMED CT 332909144 resolved per patient Resolved: Chest pain / SNOMED CT 36603230 resolved per patient Resolved: Inspiratory stridor / SNOMED CT 882476621 Resolved: Post-traumatic stress syndrome / SNOMED CT 31462383 resolved per patient. Resolved: / SNOMED CT 091289358 Resolved: / SNOMED CT 057944248 Resolved: Strep pharyngitis / SNOMED CT 76907142 Resolved: Viral gastroenteritis / SNOMED CT 316394534 Resolved: Vomiting / SNOMED CT 0735665775 Canceled: None / SNOMED CT 364670779 Review of Systems Respiratory: Negative. Cardiovascular: Negative. [...] injected subcutaneously), approach (midline), needle (17 ga héctoruhmaría) (placed via loss of resistance technique, At [...] 30 minutes. The PCEA was started at 0145.City HospitalComment on above:Result Comment: Electronically Signed By: Ra Casas Jr., DO\.berkley\Date and Time Signed: 09/11/23 07:09 [id number] NoteHistory and Physical Reason for Visit OB [...] MethodExternal toco Cervical Cervix Dilation4.5 cm Cervix Vqsbofycvb39 Station Calculation-3 LMP/EGA/ALISHA Gestational Age (EGA) and [...] gastroenteritis Vomiting Procedure/Surgical History (more content not included)...[facility] HospitalComment on above:Result Comment: Electronically Signed By: Magalis Snow DO.br\Date and Time Signed: 09/11/23 01:31 [id number] Evaluation + Plan note Diagnostic Tests Pending * Group B Streptococcus colonization by PCR 09/05/23 [facility] 07-24-2024 Hospital Discharge instructions Patient Education 08/29/2023 16:59:58 Dehydration, Adult, Ulqv-ro-Mevb Dehydration, Adult Dehydration is condition in which [...] of fat or sugar. General instructions Take oaxn-ksi-ncrnqip and prescription medicines only as told by [...] start slowly drinking other clear fluids. Take bipp-ikx-pwyuzlm and prescription medicines only as told by your doctor. Get help right away if you have any symptoms of very bad dehydration. This information is not intended to replace advice given to you by your health care provider. Make sure you discuss any questions you have with your health care provider. Document Revised: 05/31/2022 Document Reviewed: 09/04/2019 [employer] Patient Education 2022 [employer]. Follow Up Care 08/29/2023 14:46:47 With:Magalis Snow Address: [address] [place] [address] Business (1) When:09/05/2023 13:00:00 Comments:Call for any problems. [facility] 07-24-2024 Evaluation + Plan note Diagnostic Tests Pending * Urine Culture 08/29/23 [facility] 06-13-2024 Evaluation + Plan note Diagnostic Tests Pending * Urine Culture 07/19/23 [facility]06-13-2024 NoteThe following Patient Education Materials have been given to the patient: [facility] Hospital Discharge instructions Follow Up Care 07/19/2023 06:05:30 With:Magalis Snow Address: [facility] [address] [address] Business (1) When:07/25/2023 Comments:Call for any problems.Call physician if symptoms worsenReturn for contractions closer, longer, harderReturn for decreased movementReturn if ruptured membranes or vaginal bleeding [facility]06-03-2024 Evaluation + Plan note Diagnostic Tests Pending * Hepatitis B Surface Antigen 07/09/23 * RPR with Conf Rfx 07/09/23 * HIV Screen 4th Generation wRfx 07/09/23 * Urine Culture 07/09/23 [facility]02-13-2024 History of Present illness Narrative* Kourtney Pierce, [...] when she fell down some stairs at [place]. No fx. Not sure how long she [...] for a routine visit. documented in this [facility]02-08-2024 History of Present illness Narrative* Miryam [...] genetic and chromosomal testing documented in this [facility] [id number] Hospital Discharge instructions Patient Education 02/13/2023 17:17:08 [...] products, such as yogurt. General instructions Take xhob-jyd-ezoigkw and prescription medicines only as told by [...] provider. Document Revised: 10/06/2021 Document Reviewed: 10/06/2021 [employer] Patient Education 2022 [employer] 02/13/2023 17:17:01 Urinary Tract Infection, Adult, Qzzq-zf-Tfcw Urinary Tract Infection, Adult A urinary tract [...] Follow these instructions at home: Medicines Take bznh-nyt-ixmrkxg and prescription medicines only as told by [...] provider. Document Revised: 09/03/2020 Document Reviewed: 09/03/2020 [employer] Patient Education 2022 [employer]. 02/13/2023 17:16:58 Hyperemesis Gravidarum Hyperemesis Gravidarum Hyperemesis [...] or daniel tea. Taking prescription medicine or mxma-vjr-juogobb medicine as told by your health care [...] sour. These include lemonade, daniel brittanie, lemon [place] soda, ice water, and sparkling water. Things [...] your appetite or trigger nausea. General instructions Tinnie your teeth or use a mouth rinse after meals. Take kgcm-flr-vbywffb and prescription medicines only as told by [...] provider. Document Revised: 08/16/2020 Document Reviewed: 08/16/2020 [employer] Patient Education 2022 [employer]. Follow Up Care 02/13/2023 14:16:46 With:Paul CASE, TASHI Bojorquez Address: [place] [address]- When:2 to 4 days [facility]01-09-2024 Evaluation + Plan note Diagnostic Tests Pending * Urine Culture 02/13/23 [facility]12-22-2023 Hospital Discharge instructions Patient Education 01/26/2023 21:19:18 [...] Follow these instructions at home: Medicines Take jjvg-sfd-lnrqbzq and prescription medicines only as told by your health care provider. Do not use any prescription, qcsv-hto-tdodiih, or herbal medicines for morning sickness without [...] provider. Document Revised: 09/06/2020 Document Reviewed: 08/16/2020 [employer] Patient Education 2022 [employer]. 01/26/2023 21:19:18 Nausea and Vomiting, Adult, Ojnd-mh-Qwmv Nausea and Vomiting, Adult Nausea is feeling [...] fruit juice). ?Low-calorie sports drinks. Eat bland, ggeb-ak-srrpiq foods in small amounts as you are able, such as: ?Bananas. ?Applesauce. ?Rice. ?Low-fat (lean) meats. ?[place]. ?Crackers. Avoid drinking fluids that have a lot of sugar or caffeine in them. This includes energy drinks, sports drinks, and soda. Avoid alcohol. Avoid spicy or fatty foods. General instructions Take uppq-czi-obqalsv and prescription medicines only as told by your doctor. Drink enough fluid to keep your pee (urine) pale yellow. Wash your hands often with soap and water for at least 20 seconds. If you cannot use soap and water, use hand shell mold bonding machine operator. Make sure that everyone in your home [...] your doctor about eating and drinking. Take ljkx-wuk-tstbxup and prescription medicines only as told by your doctor. Contact your doctor if your symptoms get worse or you have new symptoms. Keep all follow-up visits. This information is not intended to replace advice given to you by your health care provider. Make sure you discuss any questions you have with your health care provider. Document Revised: 07/29/2021 Document Reviewed: 07/29/2021 [employer] Patient Education 2022 [employer]. Follow Up Care 01/26/2023 19:06:29 With:Ras Miller Address: [facility] [address] [address] Business (1) When:01/29/2023 21:05:41 Comments:Follow-up with your primary care provider in 3 to 5 days. If symptoms worsen, do not improve, or new symptoms arise please report back to emergency department for further evaluation. With:[employer] Address:Unknown When:Within 3 Day(s) [facility]12-22-2023 Evaluation + Plan noteExtracted from: Title:ED Note [...] Diagnostic Tests Pending * Urine Culture 01/26/23 [facility]12-19-2023 Hospital Discharge instructions Patient Education 01/23/2023 17:56:52 [...] water added (diluted fruit juice). Eat bland, zhbz-bt-mfofbx foods in small amounts as you are able. These foods include bananas, applesauce, rice, lean meats, toast, and crackers. Avoid fluids that contain a lot of sugar or caffeine, such as energy drinks, sports drinks, and soda. Avoid alcohol. Avoid spicy or fatty foods. General instructions Take jbwt-kzg-jjcgjfi and prescription medicines only as told by your health care provider. Drink enough fluid to keep your urine pale yellow. Wash your hands often using soap and water for at least 20 seconds. If soap and water are not available, use hand shell mold bonding machine operator. Make sure that everyone in your household [...] eating and drinking to prevent dehydration. Take bnbe-usp-ltckolg and prescription medicines only as told by [...] provider. Document Revised: 07/29/2021 Document Reviewed: 07/29/2021 [employer] Patient Education 2022 [employer]. Follow Up Care 01/23/2023 11:32:50 With:Ras Miller Address: [address] [place], [place] [phone] Business (1) When:01/26/2023 17:40:04 [facility]12-19-2023 Evaluation + Plan noteExtracted from: Title:ED Note Author:Andria ROBERT, Colby Olivia te:01/23/23 Nausea/vomiting in (O21.9: Vomiting of , [...] UA With Cult Reflex US 1st Trimester [facility]11-27-2023 NoteInfectious Disease COVID-19 COVID-19, or coronavirus disease [...] managed at home with rest, fluids, and pmbr-nor-hjabrbj medicines. ? Serious symptoms may be treated [...] condition. ? You should (more content not included)...[facility] Evaluation + Plan note Diagnostic Tests Pending * Group A Strep by PCR 01/01/23 [facility]11-03-2023 Hospital Discharge instructions Patient Education 12/08/2022 00:29:17 [...] provider. Document Revised: 10/25/2020 Document Reviewed: 10/25/2020 [employer] Patient Education 2022 [employer]. Follow Up Care 12/07/2022 22:59:47 With:Cara Bullard Address: [address] , [facility] [address] [place] [address]- [facility] (1) When:12/10/2022 Comments:Few concerns about continued can take up test at home in approximately 1 week. Please follow-up with your primary care doctor next 2 to 3 days. Please return to the ED for any newor worsening symptoms. With:XXXX NONE Address: [place] When:Within 3 Day(s) [facility]11-02-2023 Evaluation + Plan noteExtracted from: Title:ED Note Author:Ita NARANJO Damaris Steve Date :12/07/22 Encounter for medical screen ing examination (Z13.9: Encounter for screening, unspecified) Orders: U Beta Hcg Qual UA With Cult Reflex Urine Culture [facility]09-25-2023 Hospital Discharge instructions Patient Education 10/30/2022 11:19:02 Dental Pain, Oomj-fw-Pcxb Dental Pain Dental pain is often a [...] Follow these instructions at home: Medicines Take ckol-pwj-ywqjrie and prescription medicines only as told by [...] damage to the area. Brushing your teeth Tinnie your teeth twice a day using a [...] away. Call your local emergency services (911 inthe [place] Do not wait to see if [...] only when you eat or drink. Take rtdw-nrx-alcnbjh and prescription medicines only as told by your dentist. Watch your dental pain for any changes. Let your dentist know if symptoms get worse. This information is not intended to replace advice given to you by your health care provider. Make sure you discuss any questions you have with your health care provider. Document Revised: 10/27/2020 Document Reviewed: 10/27/2020 [employer] Patient Education 2022 [employer] Follow Up Care 10/30/2022 10:44:51 With:Dental: [facility] [phone] Address:Unknown When:11/02/2022 11:12:14 With:Dental: [facility] [phone] Address:Unknown When:11/02/2022 11:12:13 With:Dental: [facility] [phone] Address:Unknown When:11/02/2022 11:12:13 [facility]07-07-2023 NoteDATE OF DISCHARGE: 08/10/2022 The patient is [...] Without complications. Ras Miller M.D. Dictated: 08/10/2022 [id number] Transcribed: 08/10/2022City HospitalComment on above:Result Comment: Electronically Signed By: Paul CASE, Ras Radford\.br\Date and Time Signed: 08/11/22 08:18 [id number] NoteThe following Patient Education Materials have been given to the patient: [facility]07-05-2023 Evaluation + Plan note Extracted from: Title:OB Inpatient Progress Note * Au thor:Eduardo Bee MD Date:08/09/22 Impression and Plan Condition: Stable. Plan Routine care. Extracted from: Title:ANES Post-Labor Epidural Author:Ra Trevino Jr, DO Date:08/09/22 Plan Transfer/Discharge: Stable for discharge from anesthetic standpoint.. Extracted from: Title:OB Vag Delivery Procedure/L&D Summary * Au thor:Jerry WILSON DO Date:08/08/22 Impression and Plan s/p at 0411, delivered rima, nuchal cord times 2, cord clamped and cut, cord blood obtained, 3vc,placenta delivered spontaneously, no lacerations, a viable female apgars 8@1 and 9@5, wt unknown Extracted from: Title:OB Admission H&P L&D/ PreOp * Author:Jerry WILSON DO Date:08/08/22 Impression and Plan iup at 37 4/7wks, active labor-iv, routine labs, iv abx dt uknown gbbs, cont efm Extracted from: Title:L&D Epidural note Author:Kellie Casas Jr., DO Date:08/07/22 Impression and Plan Plan Labor epidural at request of patient.. [facility]07-03-2023 Hospital Discharge instructions Follow Up Care 08/07/2022 06:16:53 With:Eduardo Bee Address: [address] [phone] Business (1) When:6 weeks Comments:Call Dr if fever>100.5 F, heavy bleedingCall for any problems. [facility]06-30-2023 NoteThe following Patient Education Materials have been given to the patient: [facility]06-30-2023 Hospital Discharge instructions Follow Up Care 08/04/2022 10:54:12 With:Eduardo Bee Address:Unknown When:1 week Comments:Appointment has already been scheduledCall for any problems.Call for severe abdominal painCall physician if symptoms worsenReturn for contractions closer, longer, harderReturn for decreased movementReturn if ruptured membranes or vaginal bleeding [facility]12-14-2022 Evaluation + Plan noteExtracted from: Title:ED Note [...] Nausea/Vomiting, # 20 tab(s), Refills(s) 0, Pharmacy: [id number], 165.1, cm, 01/18/22 1:14:00 EST, Height/Length Dosing, 74.4, kg, 01/18/22 1:14:00 EST, Weight Dosing ondansetron, 4 mg = 2 mL, Injection, IV Push, Once, Stop date 01/18/22 1:21:00 EST, STAT, Start date 01/18/22 1:21:00 EST, 01/18/22 1:21:00 EST Add on Test Basic Metabolic Panel Beta hCG Quantitative eGFR Rapid COVID Antigen ([facility] [place] [place]) UA With Cult Reflex US 1st Trimester [facility]12-14-2022 Hospital Discharge instructions Patient Education 01/18/2022 04:21:37 [...] Move your legs often if you must marine animal trainer one placefor a long time. Avoid heavy [...] 01/16/2002 Document Revised: 01/04/2018 Document Reviewed: 01/03/2017 [employer] Patient Education 2020 [employer] Follow Up Care 01/18/2022 00:46:10 With:Ras Miller Address: [address] [place] [address] [facility] (1) When:01/21/2022 [facility]12-01-2022 Hospital Discharge instructions Patient Education 01/05/2022 12:47:03 [...] Treatment for this condition includes: Antibiotic medicine. Rgqy-qoh-prwwtbs medicines to treat discomfort. Drinking enough water [...] Follow these instructions at home: Medicines Take ygbx-zaq-yidfdso and prescription medicines only as told by [...] 11/01/2005 Document Revised: 01/09/2019 Document Reviewed: 08/01/2018 [employer] Patient Education 2020 [employer]. 01/05/2022 12:47:03 Nausea and Vomiting, Adult Nausea [...] water added (diluted fruit juice). Eat bland, cyis-ea-engurj foods in small amounts as you are able. These foods include bananas, applesauce, rice, lean meats, toast, and crackers. Avoid fluids that contain a lot of sugar or caffeine, such as energy drinks, sports drinks, and soda. Avoid alcohol. Avoid spicy or fatty foods. General instructions Take fikw-hha-kiaeoir and prescription medicines only as told by your health care provider. Drink enough fluid to keep your urine pale yellow. Wash your hands often using soap and water. If soap and water are not available, use hand shell mold bonding machine operator. Make sure that all people in your [...] eating and drinking to prevent dehydration. Take rajc-oqz-uvjdlxg and prescription medicines only as told by [...] 01/22/2006 Document Revised: 05/16/2019 Document Reviewed: 07/02/2018 [employer] Patient Education 2020 [employer]. Follow Up Care 01/05/2022 07:49:33 With:Ras Miller Address: [address] [place], [place] [address] [phone] Business (1) When:01/08/2022 10:01:01 With:Vijay PACHECO Address: [address] [place], [place] [phone] Business (1) When:01/08/2022 10:00:58 [facility]12-01-2022 Evaluation + Plan noteExtracted from: Title:ED Note Author:Colby Ayers PA-C te:01/05/22 Nausea and vomiting (R11.2: Nausea with vomiting, unspecified) UTI in (O23.40: Unspecified infection of urinary tract in , unspecified trimester) Orders: cephalexin, 500 mg = 1 cap(s), Oral, q12hr, X 7 day(s), # 14 cap(s), Refills(s) 0, Pharmacy: [facility] #[id number], 165, cm, 01/05/22 7:56:00 EST, Height/Length Dosing, [...] TID, # 15 tab(s), Refills(s) 0, Pharmacy: [facility] #[id number], 165, cm, 01/05/22 7:56:00 EST, Height/Length Dosing, 74.1, kg, 01/05/22 7:56:00 EST, Weight Dosing Diagnostic Tests Pending * Urine Culture 01/05/22 [facility]11-28-2022 Hospital Discharge instructions Patient Education 01/02/2022 14:19:40 Nausea and Vomiting, Adult, Vzvg-lk-Kpod Nausea and Vomiting, Adult Nausea is feeling [...] fruit juice). ?Low-calorie sports drinks. Eat bland, zwgh-nx-nmwtdq foods in small amounts as you are able, such as: ?Bananas. ?Applesauce. ?Rice. ?Low-fat (lean) meats. ?[place]. ?Crackers. Avoid drinking fluids that have a lot of sugar or caffeine in them. This includes energy drinks, sports drinks, and soda. Avoid alcohol. Avoid spicy or fatty foods. General instructions Take ewoc-dlr-hbsrewk and prescription medicines only as told by your doctor. Drink enough fluid to keep your pee (urine) pale yellow. Wash your hands often with soap and water. If you cannot use soap and water, use hand shell mold bonding machine operator. Make sure that all people in your [...] too much water in your body. Take sdjj-zol-ujyajpd and prescription medicines only as told by [...] 07/10/2008 Document Revised: 05/16/2019 Document Reviewed: 07/02/2018 [employer] Patient Education 2020 [employer]. 01/02/2022 14:19:40 Care Care care is health care during . It helps you and your unborn baby (fetus) stay as healthy as possible. care may be provided by a database specialist, a family practice health care provider, or a childbirth and specialist (forest practices field coordinator). How does this affect me? During , [...] or procedures you have had. ?Any current flbr-cpj-hnnmnzw or prescription medicines, herbs, or supplements you [...] to help predict your estimated due date (ALIHSA). This ultrasound is done with a probe [...] more information Office on Women's Health: womenshealth.gov [place] Association: americanpregnancy.org March of Dimes: marchofdimes.org Summary care helps you and [...] 2004 Document Revised: 05/14/2019 Document Reviewed: 01/21/2018 [employer] Patient Education [employer]. Follow Up Care 01/02/2022 12:36:12 With:Ras Miller Address: [address], [facility] [address] [place] [address] Business (1) When:01/05/2022 14:06:25 Comments:Follow-up with Dr. Miller for further evaluation of your . With:Holli Moctezuma Address: [address] [place] [address]- Business (1) When:01/05/2022 14:06:17 Comments:Follow-up with your primary care provider in 3 to 5 days. If symptoms worsen, do not improve, or new symptoms arise please report back to emergency department for further evaluation. [facility]11-28-2022 Evaluation + Plan noteExtracted from: Title:ED Note Author:Donavan Lawson PA-C te:01/02/22 Nausea and/or vomiting (R11. 2: Nausea with vomiting, unspecified) (Z34.90: Encounter for supervision of normal , unspecified, unspecified trimester) Orders: metoclopramide, 5 mg = 1 tab(s), Oral, q6hr, X 7 day(s), # 28 tab(s), Refills(s) 0, Pharmacy: [id number], 165, cm, 10/16/21 20:16:00 EDT, Height/Length Dosing, [...] Lipase Level Morphology UA With Cult Reflex [facility]09-11-2022 Hospital Discharge instructions Patient Education 10/16/2021 21:36:36 [...] discomfort that you are feeling: Medicines Take ccmq-cnh-smrqxfm and prescription medicines only as told by [...] if directed by your health care provider. Tinnie your teeth with a soft-bristled toothbrush. General [...] pain may be mild or severe. Take waiq-rmm-cgpbdzq and prescription medicines only as told by [...] 01/22/2006 Document Revised: 05/20/2019 Document Reviewed: 12/13/2017 [employer] Patient Education 2020 [employer] 10/16/2021 21:36:36 Dental Caries, Adult Dental Caries, [...] is this prevented? To prevent dental caries: Tinnie your teeth every morning and night with [...] 10/14/2002 Document Revised: 01/04/2018 Document Reviewed: 08/04/2016 [employer] Patient Education 2020 [employer]. Follow Up Care 10/16/2021 20:06:09 With:Dental: [facility] [phone] Address:Unknown When:10/19/2021 21:25:41 With:Dental: [facility] [phone] Address:Unknown When:10/19/2021 21:25:40 With:Dental: [facility] [phone] Address:Unknown When:10/19/2021 21:25:39 [facility]08-10-2022 Evaluation + Plan noteExtracted from: Title:ED Note Author:Colby Ayers PA-C te:09/14/21 Pain, dental (K08.89: Other specified disorders of teeth and supporting structures) Orders: naproxen, 500 mg = 1 tab(s), Oral, BID, # 20 tab(s), Refills(s) 0, Pharmacy: [facility]/pharmacy #[id number], 165.1, cm, 06/07/21 7:55:00 EDT, Height/Length Dosing, 83.6, kg, 06/07/21 7:55:00 EDT, Weight Dosing penicillin V potassium, 500 mg = 1 tab(s), Oral, TID, Take one tab by mouth 3 times a day. # 30, X 10 day(s), # 30 tab(s), Refills(s) 0, Pharmacy: [facility]/pharmacy #[id number], 165.1, cm, 06/07/21 7:55:00 EDT, Height/Length Dosing, 83.6, kg, 06/07/21 7:55:00 EDT, Weight Dosing [facility]08-10-2022 Hospital Discharge instructions Patient Education 09/14/2021 08:17:40 [...] discomfort that you are feeling: Medicines Take jfsq-bwr-czmlaci and prescription medicines only as told by [...] if directed by your health care provider. Tinnie your teeth with a soft-bristled toothbrush. General [...] pain may be mild or severe. Take jrqu-koc-ueocpff and prescription medicines only as told by [...] 01/22/2006 Document Revised: 05/20/2019 Document Reviewed: 12/13/2017 [employer] Patient Education 2020 [employer]. Follow Up Care 09/14/2021 08:05:08 With:Dental: [facility] [phone] Address:Unknown When:09/17/2021 08:10:39 [facility] [phone] Address:Unknown When:09/17/2021 08:10:38 With:Dental: [facility] [phone] Address:Unknown When:09/17/2021 08:10:37 [facility]05-04-2022 Evaluation + Plan noteExtracted from: Title:OB Inpatient Progress note Auth or:Paul CASE, Ras Radford Date:06/08/21 Impression and Plan Plan Routine care. Course: Progressing as expected. [facility]05-03-2022 Hospital Discharge instructions Follow Up Care 06/07/2021 07:07:01 With:Dr. Miller [phone] Address:Unknown When:6 weeks Comments:Call for any problems.Call for fever > 100.5 FCall for severe abdominal painCall physician for heavy vaginal bleedinNothing in the vagina for 6 weeksCall for 6 week appt [facility]04-18-2022 Evaluation + Plan note Diagnostic Tests Pending * Group B Streptococcus colonization by PCR 05/23/21 [facility] Diagnosis Supervision of normal intrauterine in multigravida, first trimester documented [facility]* Diagnosis care, subsequent , first trimester- Primary 12 weeks gestation of documented in this encounter [facility]* Diagnosis Encounter for medical examination to establish care- Primary Bipolar depression ([facility]) Bipolar I disorder, most recent episode (or current) depressed, unspecified Anxiety Anxiety state, unspecified Attention deficit hyperactivity disorder (ADHD), combined type ([facility]) PTSD (post-traumatic stress disorder) ([facility]) Posttraumatic stress disorder History of anemia Personal history of diseases of blood and blood-forming organs Screening for heart disease Screening for other and unspecified cardiovascular conditions Wheezing COVID-19 Skin lesion of left arm Unspecified disorder of skin and subcutaneous tissue [facility]* Diagnosis Anemia, unspecified type- Primary documented in this [facility] noteNo assessment information availableAultman [facility] Work Phone: Evaluation note* Diagnosis Missed menses , unspecified gestational age Encounter for supervision of normal first in first trimester documented in this encounter [facility] HealthcareEvaluation note* Diagnosis Exposure to STD Need for maternal serum alpha-protein (MSAFP) screening Second trimester state, incidental 20 weeks gestation of Screening, , for anatomic survey Encounter for anatomic survey Wheezing documented in this encounter [facility] HealthcareEvaluation note* Diagnosis SOB (shortness of breath) Shortness of breath Follow-up exam Unspecified follow-up examination Nausea and vomiting, unspecified vomiting type documented in this encounter [facility]* Diagnosis 24 weeks gestation of Second trimester state, incidental documented in this encounter [facility] HealthcareHospital course Narrative No data available for this section [facility] No data available for this section [facility] No data available for this section [facility] (narrative)* Consultation (Routine) - Authorized Specialty Diagnoses / Procedures Referred By Dulce hughes Referred To Contact Dermatology Diagnoses Skin lesion of left arm Procedures SD OFFICE/OUTPATIENT NEW HIGH [facility] 60 MINUTES Mak Jordan NP [address] [place] [address] Referral ID Status Reason Start Date Expiration Date Visits Requested Visits Authorized [id number] Authorized Specialty Services Required 10/16/2023 04/13/2024 1 1 * Consultation (Routine) - Pending Review Specialty Diagnoses / Procedures Referred By Dulce hughes Referred To Contact Psychiatry Diagnoses Bipolar depression ([facility]) Anxiety Attention deficit hyperactivity disorder (ADHD), combined type ([facility]) PTSD (post-traumatic stress disorder) ([facility]) Procedures SD OFFICE/OUTPATIENT NEW HIGH [facility] 60 MINUTES Mak Jordan NP [address] [place] [address] Referral ID Status Reason Start Date Expiration Date Visits Requested Visits Authorized [id number] Pending Review Specialty Services Required 10/16/2023 04/13/2024 1 1 [facility] Summary Purpose Family History No Family History Records Found Relationship Condition Age at Onset Recorded Date/T ruth father Malignant neoplasm Unknown Unknown Advance Directives No Advanced Directives Records Found Advance Directive Response Recorded Date/ Time Advance Directives No March 2:16pm Chief Complaint and Reason for Visit Chief Complaint Admit Date January 02, 2024 9:07am right knee pain April 01, 2024 2:16pm Additional Source Comments INFORMATION SOURCE (unrecogn ized section and content) DATE CREATED AUTHOR 11/05/2020 [facility] DATE CREATED AUTHOR AUTHOR'S ORGANIZ ATION 07/10/2023 [facility] DATE CREATED AUTHOR AUTHOR'S ORGANIZ ATION 07/12/2023 [facility] DATE CREATED AUTHOR AUTHOR'S ORGANIZ ATION 07/20/2023 [facility] DATE CREATED AUTHOR AUTHOR'S ORGANIZ ATION 07/21/2023 [facility] DATE CREATED AUTHOR AUTHOR'S ORGANIZ ATION 07/27/2023 [facility] DATE CREATED AUTHOR AUTHOR'S ORGANIZ ATION 09/08/2023 [facility] DATE CREATED AUTHOR AUTHOR'S ORGANIZ ATION 09/12/2023 [facility] DATE CREATED AUTHOR AUTHOR'S ORGANIZ ATION 09/14/2023 [facility] DATE CREATED AUTHOR AUTHOR'S ORGANIZ ATION 09/15/2023 [facility] DATE CREATED AUTHOR AUTHOR'S ORGANIZ ATION 09/21/2023 [facility] DATE CREATED AUTHOR AUTHOR'S ORGANIZ ATION 04/03/2024 [facility] DATE CREATED AUTHOR AUTHOR'S ORGANIZ ATION 06/21/2024 [facility] DATE CREATED AUTHOR AUTHOR'S ORGANIZ ATION 06/25/2024 [facility] dical Specialists EPIC Patient Care team informatio n (unrecognized section and content) Personnel Name: NONE, XXXX Address: [facility] Name: Kourtney LEMONS Address: [facility] [employer], [address] [id number] Telecom: Senior Automation Engineer Relationship Specialty Start Date End Date Sadie Thomas MD [address] [place] [address] PCP - General Family Medicine 10/22/23 Mak Jordan NP [address] [place] [address] Nurse Practitioner Family Medicine 10/22/23 Team Status: [...] April 01, 2024 End: April 01, 2024 Senior Automation Engineer Relationship Specialty Start Date End Date Unallocated, Sheryl Domingo MD [address] [place] [address] PCP - General 07/19/22 Senior Automation Engineer Relationship Specialty Start Date End Date Unallocated, Sheryl Provider [address] [place] [address] PCP - General 07/19/22 Personnel Name: LLC, GENERIC Name: Kourtney LEMONS Address: Address: [facility] [employer], [address] [address] Personnel Name: NONE, XXXX Address: Address: [facility] Name: Kourtney LEMONS Address: Address: [address], [address] Personnel Name: Vijay PACHECO MD Address: Address: [address] Personnel Name: Holli Moctezuma DO Address: Address: [address] Reason for Visit (unrecogniz ed section and content) Reason Comments Establish Care ADHD Reason Comments Amenorrhea Reason Comments Routine Visit Reason Comments ER Follow-up Goals (unrecognized section and content) Goals may [...] BE BASED ON THE PRIMARY CLINICAL RECORDS. [employer] [facility]. provides no warranty or guarantee of the accuracy or completeness of information in this document.
[2024-07-04 10:07] LABS: Glucose 1 Hour 103 mg/dL (<130)
[2024-07-04 10:15] LABS: Basophils Percent Auto 0.4 % (0.2-2.0); Eosinophils Absolute Auto 0.1 10^3/uL (0.0-0.7); Eosinophils Percent Auto 1.9 % (0.9-7.0); Hematocrit 32.9 % (36.0-48.0); Hemoglobin 10.6 g/dL (12.0-16.0); Immature Granulocytes Abs Auto 0.04 10^3/uL (0.00-0.03); Immature Granulocytes Pct Auto 0.5 % (0.0-0.5); Lymphocytes Absolute Auto 1.7 10^3/uL (1.2-3.8); Lymphocytes Percent Auto 22.9 % (20.5-60.0); Mean Corpuscular HGB Conc 32.2 g/dL (29.9-35.2); Mean Corpuscular Hemoglobin 27.7 pg (26.7-34.0); Mean Corpuscular Volume 86.1 fL (81.0-99.0); Monocytes Absolute Auto 0.5 10^3/uL (0.3-0.8); Monocytes Percent Auto 7.1 % (1.7-12.0); Neutrophils Percent Auto 67.2 % (43.0-75.0); Platelet Count 219 10^3/uL (150-450); Red Blood Count 3.82 10^6/uL (4.20-5.40); Red Cell Distribution Width 15.4 % (11.0-15.0); White Blood Count 7.5 10^3/uL (4.0-11.0)
== END 2024-07-04 08:27 | disposition home or self-care (01) ==
LOC: US 08:26
PROVIDERS: Visit Provider Obstetrics & Gynecology
DX: O26.842 Uterine size-date discrepancy, second trimester (principal); Z13.1 Encounter for screening for diabetes mellitus; Z3A.24 24 weeks gestation of pregnancy
CPT/HCPCS: 76816; 82950; 85025

== ENCOUNTER 2024-08-07 17:08 | Outpatient (OUT) | payer MEDICAID, SELFPAY ==
--- OUTSIDE RECORDS SUMMARY | 2008-06-26 06:00 | XMS_ITS | Continuity of Care Document ---
Author Organization [facility] Address [address] [place] [address] Phone Care Team Providers Care Office Associate Name Role Phone Eunice GABRIEL Mitch Unavailable Unavailable Procedures Procedure Date OFFICE/OUTPATIENT VISIT, [facility] DTAP VACCINE, < 7 YRS, IM MMR VACCINE, [place] POLIOVIRUS, IPV, SC/IM CHICKEN POX VACCINE, [place] Advance Directives Directive Yes / No Effective Date File Name No Information Encounters Encounter Description Practice Location Reason(s) For Visit Diagnoses Date Provider Providers Copied on Encounter OFFICE/OUTPATI ENT VISIT, [facility], [address] [place], [place], [id number], [place] tel:[phone] [facility] No Information Eunice Cox. [address] [place], [place], [id number], [place]. tel:[phone] Family History Family Member Type Diagnosis Age [...]
--- OUTSIDE RECORDS SUMMARY | 2024-03-20 09:00 | XMS_ITS ---
Author Organization [facility] Address [address] [facility] [place] [address] Care Team Providers Care Motion Picture Printer Name Role Phone Soraida Sandy Primary Care Provider Brenna Turner [phone] REASON FOR VISIT FILLING Encounters Encounter Location Date Provider Diagnosis [facility] [address] [facility] [place] [address] 03/20/2024 Brenna Turner Plan Of Treatment No Information Progress Notes * ESTHER TYLREOB: 4 (19 yo F)Acc No.[id number]:03/20/2024 Patient: JORDIN ROWAN Provider: Andrea Turner :2005 A ge:19 Y S ex:Female Date:03/20/2024 Address:[address] [place] [address] [id number] Pcp:Soraida Frausto Subjective: * Chief Complaints: * 1 . FILLING. * Medical History: Objective: * Vitals: Assessment: Plan: * Treatment: * Images: * Electronic signature of Eliu Turner DMD on 08/07/2024 at 05:10 PM EDT Sign off status: Pending * Provider: Andrea Turner Date: 0 03/20/2024 Generated for Cornelio edwards/Heather/eTdanielsmitting on: 0 08/07/2024 05:10 PM EDT
--- OUTSIDE RECORDS SUMMARY | 2024-04-01 05:45 | XMS_ITS ---
Author Organization [facility] Address [address] [facility] [place] [place] [address] Care Team Providers Care Business Account Executive Name Role Phone Soraida Sandy Primary Care Provider Chelsi Grijalva [phone] REASON FOR VISIT PROPHY NO HYG HX SINCE 2021, GEN DECAY Encounters Encounter Location Date Provider Diagnosis [facility] [address] [place] [address] 04/01/2024 Chelsi Grijalva Plan Of Treatment No Information Progress Notes * JAYSON JOSEEDOB: 4 (19 yo F)Acc No.[id number]:04/01/2024 Patient: JORDIN ROWAN Provider: Sergio Grijalva :2005 A ge:19 Y S ex:Female Date:04/01/2024 Address:[address] [place] [address] [facility] Pcp:Soraida Frausto Subjective: * Chief Complaints: * 1 . PROPHY NO HYG HX SINCE 2021, GEN DECAY. * Medical History: Objective: * Vitals: Assessment: Plan: * Treatment: * Images: * Electronic signature of Cookie Grijalva on 08/07/2024 at 05:10 PM EDT Sign off status: Pending * Provider: Sergio Grijalva Date: 04/01/2024 Generated for Printi ng/Faxing/eTransmitting on: 0 08/07/2024 05:10 PM EDT
--- OUTSIDE RECORDS SUMMARY | 2024-07-14 07:00 | XMS_ITS ---
Author Organization [facility] es Address [address] [place] [address] Care Team Providers Care Flooring Machine Operator Name Role Phone Soraida Sandy Primary Care Provider Dr. Carrillo Alegre [facility] [phone] REASON FOR VISIT FILLING Encounters Encounter Location Date Provider Diagnosis [address] [facility] [place] [address] 2024 Carrillo Alegre Plan Of Treatment No Information Progress Notes * JAYSON JOSEEDOB: 4 (19 yo F)Acc No.[id number]:07/14/2024 Patient: JORDIN ROWAN Provider: Andrea Alegre DDS :2005 A ge:19 Y S ex:Female Date:07/14/2024 Address:[facility] [place] [facility] Pcp:Soraida Frausto Subjective: * Chief Complaints: * 1 . FILLING. * Medical History: Objective: * Vitals: Assessment: Plan: * Treatment: * Images: * Electronic signature of Dr. Carrillo Alegre , DMD on 08/07/2024 at 05:10 PM EDT Sign off status: Pending * Provider: Andrea Alegre DDS Date: 07/14/2024 Generated for Johni ng/Fajacksong/eTransmitting on: 08/07/2024 05:10 PM EDT
--- OUTSIDE RECORDS SUMMARY | 2024-08-05 09:50 | XMS_ITS | Encounter Summary ---
Author Organization [facility] Address [address] [place] [address] Care Team Providers Care Electric Scoop Operator Name Role Phone Sadie Thomas MD Primary Care Provider [phone] Katharine Olivarez NP Unavailable [phone] Reason for Visit * Reason Comments Routine Visit Encounter Details Date Type Department Care Team (Late st Contact Info) Description 08/05/2024 9:50 AM EDT Routine [facility] B[facility] OB [address] [place] [address] Holli Roque PA [address] [place] [address] Right otitis media, unspecified otitis media type (Primary Dx); Third trimester ([facility]); 30 weeks gestation of ([facility]); SGA (small for gestational age) ([facility]) Social History Tobacco Use Types Packs/Day Years [...] often do you attend chur ch or sabianism services? Never 03/15/2023 Do you belong to any clubs o r organizations such as synagogue groups, unions, fraternal or athletic groups, or [...] Recorded Patient Health Questionnaire-2 Score 0 03/15/2023 [facility] [...] place to sleep or slept in a senior living (including now)? No 03/15/2023 Education Answer Date [...] Vitals: Estimated body mass index is 29.03 kg/m² as calculated from the following: Height as of 10/16/23: 5' 4 . Weight as of this encounter: 169 lb 2 oz. BP: 102/50 Patient's last menstrual period was 02/23/2024. ASSESSMENT & PLAN ICD-10-CM 1. Third trimester ([facility]) Z34.93 2. 30 weeks gestation of ([facility]) Z3A.30 3. SGA (small for gestational age) ([facility]) P05.10 Return OB: Patient presents today for a routine obstetrics appointment. Patient is currently 30w2d . Patient states she is doing well but has complaints of being tired due to current . Patient has verbalizes frequent movement. labor precautions was discussed/given and patient was instructed to perform kick counts three times a day. Patient released from custodial, we will start her with NST/BPP this [...] PM EDT Routine [facility] B[facility] OB [address] [facility] [place] [address] Jerry Wilson, DO [address] [place] [address] Scheduled Orders Name Type Priority Associated Diagnoses Orde r Schedule US biophysical profile w non stress test Imaging Routine SGA (small for gestational age) ([facility]) Expected: 08/05/2024 (Approximate), Expires: 02/05/2025 documented as of this encounter Visit Diagnoses Diagnosis Right otitis media, unspecified otitis media type- Primary Third trimester ([facility]) state, incidental 30 weeks gestation of ([facility]) SGA (small for gestational age) ([facility]) Oobgm-cxn-rlrgh without mention of malnutrition, unspecified (weight) documented in this encounter Care Teams Electric Scoop Operator Relationship Specialty Start Date End Date Sadie Thomas MD [address] [place] [address] PCP - General Family Medicine 10/22/23 Katharine Olivarez NP [address] [place] [address] Nurse Practitioner Family Medicine 10/22/23 documented as of this encounter
--- OUTSIDE RECORDS SUMMARY | 2024-08-07 17:10 | XMS_ITS | Clinical Summary ---
Author Organization [facility] [employer] [place] tem Address [id number] [address] [place] [address] Care Team Providers Care Vice President Of Human Resources Name Role Phone Unavailable Primary Care Provider Unavailabl e Allergies Active Allergy Reactions Criticality Noted Date Comments Amoxicillin 07/21/2024 Metoclopramide Hcl 07/21/2024 Medications [id number] c acid ( 19) 29 mg iron- 1 mg tablet,chewable Chew 1 tablet and swallow in the morning. Active ferrous sulfate (FEOSOL) 300 mg (60 mg elemental iron)/5 mL syrup Take 5 mL (300 mg total) by mouth in the morning. Active ondansetron (ZOFRAN) 4 mg tablet Take 1 tablet (4 mg total) by mouth every 8 (eight) hours as needed for nausea or vomiting. Active Encounters Date Type Department Care Team Description 07/22/2024 7:08 AM EDT - 07/22/2024 11:59 PM EDT Hospital Encounter [facility] US Imaging [address] [place] [address] Abnormal ultrasound Discharge Disposition: Home 07/22/2024 Orders Only Maternal- Medicine at [facility] [address] [place] [phone] Nely Sheldon, RN Encounter for follow-up ultrasound of anatomy (Primary Dx) 07/22/2024 Travel 07/21/2024 Abstract Maternal- Medicine at [facility] [address] [place] [phone] External, Scanning Provider 07/21/2024 Orders Only Maternal- Medicine at [facility] [address] [place] [phone] Chelsi Box RN Abnormal ultrasound (Primary Dx) from Last 3 Months Family History Medical History Relation Name Comments Lung cancer Father Relation Name Status Comments Father Social History Tobacco Use Types Packs/Day Years Used Date Smoking Tobacco: Never Smokeless Tobacco: Never Tobacco Cessation:Counseling Given: Not Answered Alcohol Use Standard Drinks/Week Comments Never 0 (1 standard drink = 0.6 oz pur e alcohol) Childcare Answer Date Recorded Childcare Unknown 07/17/2018 Employment Answer Date Recorded Employment Unknown 07/17/2018 Estimated Date of Delivery Comme nts Yes 10/12/2024 Based on Ultraso und Sex and Gender Information Value Date Recorded Sex Assigned at Not on file Legal Sex Female 12:10 PM EDT Gender Identity Not on file Sexual Orientation Not on file Plan of Treatment Upcoming Encounters Date Type Department Care Team (Late st Contact Info) Description 09/03/2024 11:00 AM EDT Appointment [facility] US Imaging [address] [place] [phone] Health Maintenance Due Date Last Done Comments Chlamydia Screening 2004 Depression Screening 2016 Tobacco Screening 2016 Adult BMI Screening 01/06/2022 DTaP,Tdap and Td Vaccines (1 - Tdap) 01/06/2023 Influenza Vaccine 10/06/2024 Medical Devices Not on file Procedures Procedure Name Priority Date/Time Associated Diagnosis Comments US [facility] COMPREHENSIVE ANATOMIC SURVEY Routine 07/22/2024 8:27 AM EDT Abnormal ultrasound ULTRASOUND OFFICE Routine 07/04/2024 3:3 1 PM EDT ULTRASOUND OFFICE Routine 05/27/2024 3:3 3 PM EDT ULTRASOUND OFFICE Routine 05/09/2024 3:3 5 PM EDT from Last 3 Months Results * US [facility] COMPREHENSIVE ANATOMIC SURVEY (07/22/2024 8:27 AM EDT) Anatomical Region Laterality Modality OB-PRODUCE DEPARTMENT MANAGER Ultrasound 07/22/2024 7:46 AM EDT Narrative 07/22/2024 10:01 AM EDT NAME: JAYSON BRENNER : 2005 SEX: F Accession Number: [id number] ORDERING PHYSICIAN: ALLAN YEPEZ REFERRING PHYSICIAN: DOMINGUEZ HOGAN Coding ----- --------- Procedures [id number]: Ultrasound, uterus, real time with image documentation, and maternal evaluation plus detailed anatomic examination, transabdominal approach;single or first gestation Indication ----- --------- Screening for Anatomic Survey , Screening for IUGR , Maternal anemia History ----- --------- OB History 4. Para 3 [id number] Maternal Assessment ----- --------- Physical Exam Height 163 cm, 5 ft 4 in. Initial weight 76 kg, 168 lb. Initial BMI 28.84 kg/m Method ----- --------- Transabdominal ultrasound examination. View: Suboptimal view: limited by position ----- --------- Thomason . Number of fetuses: 1 Dating ----- --------- LMP on: 02/23/2024 GA by LMP 21 w + 3 d ALISHA by LMP: 11/29/2024 Previous Ultrasound on: 05/09/2024 Type of prior assessment: GA GA at prior assessment date 17 w + 5 d GA by previous U/S 28 w + 2 d ALISHA by previous Ultrasound: 10/12/2024 Ultrasound examination on: 07/22/2024 GA by U/S based upon: AC, BPD, Femur, HC GA by U/S 27 w + 2 d ALISHA by U/S: 10/19/2024 Assigned: based on ultrasound (GA), selected on 07/22/2024 Assigned GA 28 w + 2 d Assigned ALISHA: 10/12/2024 General Evaluation ----- --------- Cardiac activity Present. FHR 128 bpm. Presentation: variable Placenta: Placental site: posterior, fundal, away from cervical os Umbilical cord: Cord vessels: 3 vessel cord. Insertion site: normal insertion Amniotic fluid: Amount of AF: normal amount. MVP 4.4 cm Biometry ----- --------- Standard BPD 68.4 mm 27w 4d 16% Hadlock OFD 87.7 mm 28w 2d 49% Cyndie HC 250.6 mm 27w 1d 3% Hadlock Cerebellum tr 32.1 mm 27w 3d 28% Hill AC 235.5 mm 27w 6d 30% Hadlock Femur 49.0 mm 26w 3d 3% Hadlock Humerus 43.7 mm 26w 0d 2% Cyndie HC / AC 1.06 EFW 1,057 g 11% Hadlock EFW (lb) 2 lb EFW (oz) 5 oz EFW by: Hadlock ([id number]) Extended Tibia 42.4 mm 26w 2d 4% Cyndie Fibula 41.8 mm 25w 6d 18% Cyndie Radius 38.7 mm 12% Chitty Ulna 41.6 mm 27w 0d 5% Cyndie Critical Power Install Technician 5.6 mm CM 7.9 mm 81% Nicolaides Head / Face / Neck Cephalic index 0.78 40% Nicolaides Nasal bone: present Extremities / Bony Struc FL / BPD 0.72 FL / HC 0.20 FL / AC 0.21 Other Structures FHR 128 bpm Anatomy ----- --------- The following structures appear normal: Head/Neck: Cranium. Lateral ventricles. Choroid plexus. Midline falx. Cavum septi pellucidi. Cerebellum. Cisterna magna. Parenchyma. Vermis. Neck. Face: Lips. Profile. Nose. Nasal bone. Maxilla. Mandible. Orbits. Heart/Thorax: 4-chamber view. RVOT view. LVOT view. 3-vessel view. 8-hwsjqi-sqouuhd view. Situs. Aortic arch view. Bicaval view. Ductal arch view. Interventricular septum. Great vessels. Cardiac position. Cardiac axis. Cardiac size. Cardiac rhythm. Right lung. Left lung. Diaphragm. Abdomen: Abdom. wall. Cord insertion. Stomach. Kidneys. Bladder. Small bowel. Large bowel. Right renal artery. Left renal artery. Genitals. Extremities/Skeleton: Right hand. Left upper arm. Left forearm. Left hand. Right upper leg. Right lower leg. Right foot. Left upper leg. Left lower leg. Left foot. The following structures could not be adequately visualized: Spine: Cervical spine. Thoracic spine. Lumbar spine. The following structures could not be examined: Spine Sacral spine. Extremities / Right upper arm. Right forearm. Skeleton Maternal Structures ----- --------- Uterus Visualized Cervix Visualized Approach - Transabdominal Right Ovary Not visualized Left Ovary Visualized Size 20 mm x 16 mm x 20 mm. Vol 3.3 cm Cul de Sac Suboptimal Impression ----- --------- Single viable intrauterine consistent with 28w 2d with an ALISHA of 10/12/2024. EFW measuring at the 11%. AC measures at the 30%. The HC measures less than the 3rd percentile for the gestational age but reference biometric measurement within 2 SD of the mean (Daniel and colleagues, 1984). Amniotic fluid MVP measures 4.4 cm. Recommendations ----- --------- The patient is scheduled in four to six week(s) to complete anatomic survey. Results forwarded to ordering provider so they can follow up with the patient as necessary. Subsequent follow up or other follow up as clinically determined by primary OB provider unless otherwise specified by [facility]. Procedure Note Allan Yepez MD - 07/22/2024 NAME: JAYSON BRENNER : 2005 SEX: F Accession Number: [id number] ORDERING PHYSICIAN: ALLAN YEPEZ REFERRING PHYSICIAN: DOMINGUEZ HOGAN Coding ----- --------- Procedures [id number]: Ultrasound, uterus, real time with imagedocumentation, and maternal evaluation plus detailed anatomic examination, transabdominalapproach;single or first gestation Indication ----- --------- Screening for Anatomic Survey , Screening for IUGR , Maternal anemia History ----- --------- OB History 4. Para 3 [id number] Maternal Assessment ----- --------- Physical Exam Height 163 cm, 5 ft 4 in. Initial weight 76 kg, 168 lb.Initial BMI 28.84 kg/m Method ----- --------- Transabdominal ultrasound examination. View: Suboptimal view: limited byfetal position ----- --------- Thomason . Number of fetuses: 1 Dating ----- --------- LMP on: 02/23/2024 GA by LMP 21 w + 3 d ALISHA by LMP: 11/29/2024 Previous Ultrasound on: 05/09/2024 Type of prior assessment: GA GA at prior assessment date 17 w + 5 d GA by previous U/S 28 w + 2 d ALISHA by previous Ultrasound: 10/12/2024 Ultrasound examination on: 07/22/2024 GA by U/S based upon: AC, BPD, Femur, HC GA by U/S 27 w + 2 d ALISHA by U/S: 10/19/2024 Assigned: based on ultrasound (GA), selected on 07/22/2024 Assigned GA 28 w + 2 d Assigned ALISHA: 10/12/2024 General Evaluation ----- --------- Cardiac activity Present. FHR 128 bpm. Presentation: variable Placenta: Placental site: posterior, fundal, away from cervical os Umbilical cord: Cord vessels: 3 vessel cord. Insertion site: normalinsertion Amniotic fluid: Amount of AF: normal amount. MVP 4.4 cm Biometry ----- --------- Standard BPD 68.4 mm 27w 4d 16% Hadlock OFD 87.7 mm 28w 2d 49% Cyndie HC 250.6 mm 27w 1d 3% Hadlock Cerebellum tr 32.1 mm 27w 3d 28% Hill AC 235.5 mm 27w 6d 30% Hadlock Femur 49.0 mm 26w 3d 3% Hadlock Humerus 43.7 mm 26w 0d 2% Cyndie HC / AC 1.06 EFW 1,057 g 11% Hadlock EFW (lb) 2 lb EFW (oz) 5 oz EFW by: Hadlock ([id number]-FL) Extended Tibia 42.4 mm 26w 2d 4% Cyndie Fibula 41.8 mm 25w 6d 18% Cyndie Radius 38.7 mm 12% Chitty Ulna 41.6 mm 27w 0d 5% Cyndie Critical Power Install Technician 5.6 mm CM 7.9 mm 81% Nicolaides Head / Face / Neck Cephalic index 0.78 40% Nicolaides Nasal bone: present Extremities / Bony Struc FL / BPD 0.72 FL / HC 0.20 FL / AC 0.21 Other Structures FHR 128 bpm Anatomy ----- --------- The following structures appear normal: Head/Neck: Cranium. Lateral ventricles. Choroid plexus. Midline falx.Cavum septi pellucidi. Cerebellum. Cisterna magna. Parenchyma. Vermis. Neck. Face: Lips. Profile. Nose. Nasal bone. Maxilla. Mandible. Orbits. Heart/Thorax: 4-chamber view. RVOT view. LVOT view. 3-vessel view.8-gkqbie-ldfgsci view. Situs. Aortic arch view. Bicaval view. Ductal arch view. Interventricular septum. Greatvessels. Cardiac position. Cardiac axis. Cardiac size. Cardiac rhythm. Right lung. Left lung. Diaphragm. Abdomen: Abdom. wall. Cord insertion. Stomach. Kidneys. Bladder. Smallbowel. Large bowel. Right renal artery. Left renal artery. Genitals. Extremities/Skeleton: Right hand. Left upper arm. Left forearm. Left hand.Right upper leg. Right lower leg. Right foot. Left upper leg. Left lower leg. Left foot. The following structures could not be adequately visualized: Spine: Cervical spine. Thoracic spine. Lumbar spine. The following structures could not be examined: Spine Sacral spine. Extremities / Right upper arm. Right forearm. Skeleton Maternal Structures ----- --------- Uterus Visualized Cervix Visualized Approach - Transabdominal Right Ovary Not visualized Left Ovary Visualized Size 20 mm x 16 mm x 20 mm. Vol 3.3 cm Cul de Sac Suboptimal Impression ----- --------- Single viable intrauterine consistent with 28w 2d with an ALISHA of10/12/2024. EFW measuring at the 11%. AC measures at the 30%. The HC measures less than the 3rd percentile for the gestational agebut reference biometric measurement within 2 SD of the mean (Daniel and colleagues, 1984). Amniotic fluid MVP measures 4.4 cm. Recommendations ----- --------- The patient is scheduled in four to six week(s) to complete anatomicsurvey. Results forwarded to ordering provider so they can follow up with thepatient as necessary. Subsequent follow up or other follow up as clinically determined byprimary OB provider unless otherwise specified by [facility]. us Allan Yepez MD [facility] US ORDERABLES Final Resul t * Ultrasound - Office (07/04/2024 3:31 PM EDT) Only the most recent of3 resultswithin the time period is included. Anatomical Region Laterality Modality AMB Ultrasound us Not In System Ref Prov IMG US ORDERABLES Final R esult from Last 3 Months Insurance [employer] MEDICAID
--- OUTSIDE RECORDS SUMMARY | 2024-08-07 17:10 | XMS_ITS | Encounter Summary ---
Author Organization [facility] Address [address] [place] [address] Care Team Providers Care Torch Straightener Name Role Phone Sadie Thomas MD Primary Care Provider Katharine Olivarez NP Unavailable Encounter Details Date Type Department Care Team (Late st Contact Info) Description 08/05/2024 Bamboo flowsheet [facility] [address] [place] [address] Holli Roque PA [address] [place], [place] [id number] Social History Tobacco Use Types Packs/Day Years [...] often do you attend chur ch or judaism services? Never 03/15/2023 Do you belong to any clubs o r organizations such as methodist groups, unions, fraternal or athletic groups, or [...] Recorded Patient Health Questionnaire-2 Score 0 03/15/2023 [facility]ational Stress Questionnaire Answer [...] place to sleep or slept in a longterm (including now)? No 03/15/2023 Education Answer Date [...] on file documented as of this encounter Plan of Treatment Upcoming Encounters Date Type Department Care Team (Late st Contact Info) Description 08/19/2024 1:50 PM EDT Routine [facility] [address] [place] [address] Jerry Wilson, DO [address] [place], [place] [id number] documented as of this encounter Visit Diagnoses Not on filedocumented in this encounter Care Teams Torch Straightener Relationship Specialty Start Date End Date Sadie Thomas MD [address] [place] [address] PCP - General Family Medicine 10/22/23 Katharine Olivarez NP [address] [place] [address] Nurse Practitioner Family Medicine 10/22/23 documented as of this encounter
--- OUTSIDE RECORDS SUMMARY | 2024-08-07 17:10 | XMS_ITS | Encounter Summary ---
Author Organization [facility] Address [address] [place] [address] Care Team Providers Care Electrical Parts Reconditioner Name Role Phone Unallocated, Noms Provider Primary Care Provi nani Sadie Thomas MD Primary Care Provider [phone] Katharine Olivarez MARKET RELATIONSHIP MANAGER Unavailable [phone] Encounter Details Date Type Department Care Team (Late st Contact Info) Description 03/15/2023 Orders Only [facility] NB OB [address] [place] [address] [phone] Unallocated, Noms Provider, [address] [place], [place] [id number] Social History Tobacco Use Types Packs/Day Years [...] often do you attend chur ch or lutheran services? Never 03/15/2023 Do you belong to any clubs o r organizations such as orthodox groups, unions, fraternal or athletic groups, or [...] Recorded Patient Health Questionnaire-2 Score 0 03/15/2023 [facility] - Occupational Stress Questionnaire Answer Date Recorded [...] place to sleep or slept in a assisted (including now)? No 03/15/2023 Education Answer Date Recorded What is the highest level of school you have completed or the highest degree you have received? High school graduate 03/15/2023 Comments Yes Sex and Gender Information Value Date Recorded Sex Assigned at Not on file Legal Sex Female 7:59 PM EDT Gender Identity Not on file Sexual Orientation Not on file Occupation Industry Job Start Date Job End Date unemployed Not on file Not on file Not on file documented as of this encounter Functional Status * Audit-C Score Answer Date of Assessment Author 0 03/15/2023 11:01 AM Miryam Reed i, LPN * Question Answer Date of Assessment Author Q1: How often do you have a drink containing alcohol? Never 03/15/2023 11:01 AM Miryam Cantu LPN Q2: How many drinks containing alcohol do you have on a typical day when you are drinking? Patient does not drink 03/15/2023 11:01 AM Miryam Cantu LPN Q3: How often do you have six or more drinks on one occasion? Never 03/15/2023 11:01 AM Miryam Cantu LPN * Over the past 2 weeks, how often have you been bothered by any of the following problems? Question Answer Date of Assessment Author Little interest or pleasure in doing things Not at all 03/15/2023 11:06 AM Miryam Cantu LPN Feeling down, depressed, or hopeless Not at all 03/15/2023 11:06 AM Miryam Cantu LPN Patient Health Questionnaire-2 Score 0 03/15/2023 11:06 AM Patrizia Cantu LPN documented as of this encounter Plan of Treatment Upcoming Encounters Date Type Department Care Team (Late st Contact Info) Description 08/19/2024 1:50 PM EDT Routine [facility] [address] [facility] [address] [place] [address] Jerry Wilson, DO [address] [place], [place] [id number] documented as of this encounter Procedures Procedure Name Priority Date/Time Associated Diagnosis Comments ULTRASOUND : OB 1ST TRIMESTER Routine 01/23/2023 12:59 PM EST documented in this encounter Results * ULTRASOUND : OB 1ST TRIMESTER (01/23/2023 12:59 PM EST) Anatomical Region Laterality Modality Radiographic Michelle ging us Noms Provider Unallocated IMG XR PROCEDURES F inal Result documented in this encounter Visit Diagnoses Not on filedocumented in this encounter Care Teams Electrical Parts Reconditioner Relationship Specialty Start Date End Date Unallocated, Noms Provider, [address] [place] [address] PCP - General 07/19/22 10/21/23 Sadie Thomas MD [address] [place] [address] PCP - General Family Medicine 10/22/23 Katharine Olivarez NP [address] [place] [address] Nurse Practitioner Family Medicine 10/22/23 documented as of this encounter
--- OUTSIDE RECORDS SUMMARY | 2024-08-07 17:10 | XMS_ITS | Patient Health Record ---
Author Organization [facility] Address [address] [place] [address] Care Team Providers Care Cloth Seconds Sorter Name Role Phone Soraida Sandy Primary Care Provider Dr. Carrillo Alegre Unavailable [phone] Juan Carlos Messina Unavailable [phone] Chelsi Grijalva Unavailable [phone] Jasmyn Perkins Unavailable [phone] Brenna Turner Unavailable [phone] Reason For Referral No Information Encounters Encounter Location Date Provider Diagnosis [facility] [address] [place] [address] 09/18/2023 Carrillo Alegre Dental caries on pit and fissure surface penetrating into dentin K02.52 ; Cracked tooth K03.81 ; Encounter for dental examination and cleaning with abnormal findings Z01.21 ; Other dental procedure status Z98.818 and Acute gingivitis, plaque induced K05.00 [facility] [address] [place] [address] 11/19/2023 Brennamica Turner Dental caries on pit and fissure surface penetrating into dentin K02.52 [facility] [place] [address] [place] [address] 01/14/2024 Brenna Saric Dental caries on pit and fissure surface penetrating into dentin K02.52 [facility] [address] [place] [address] 09/26/2023 Soraida Frausto Assessments Encounter Date Diagnosis (ICD Code) Assessment Notes Treatment Notes Treatment Clinical Notes Section Notes 09/18/2023 Dental caries on pit and fissure surface penetrating into dentin (ICD-10 - K02.52) 11/19/2023 Dental caries on pit and fissure surface penetrating into dentin (ICD-10 - K02.52) 01/14/2024 Dental caries on pit and fissure surface penetrating into dentin (ICD-10 - K02.52) 09/18/2023 Cracked tooth (ICD-10 - K03.81) 09/18/2023 Encounter for dental examination and cleaning with abnormal findings (ICD-10 - Z01.21) 09/18/2023 Other dental procedure status (ICD-10 - Z98.818) 09/18/2023 Acute gingivitis, plaque induced (ICD-10 - K05.00) Plan Of Treatment No Information Insurance Providers Payer Name Payer Address Payer Phone Subscriber Number Group Number Insured Name Patient Relationship to Insured Coverage Start Date Coverage End Date zPARAMOUN T ADVANTAGE -termed 22 [address] [place] [address] [id number] JORDIN TYLER Self - patient is the insured 2 3 zMEDICAID CFC after PARAMOUNT -termed 22 [address] [place] [address] [id number] JORDIN TYLER Self - patient is the insured 2 3 zDENTAL DQ PARAMOUNT -termed 22 [address] [place] [address] [id number] JORDIN TYLER Self - patient is the insured 2 3 zDental MEDICAID CFC after PARAMOUNT -termed 22 [address] [place] [address] [id number] JORDIN TYLER Self - patient is the insured 2 3 Dental [place] DQ [address] [place] [address] [id number] JORDIN TYLER Self - patient is the insured 4 Dental Wrap [employer] [place] BCBS [address] [place] [address] [id number] JORDIN TYLER Self - patient is the insured 4
--- OUTSIDE RECORDS SUMMARY | 2024-08-07 17:10 | XMS_ITS | Encounter Summary ---
Author Organization [facility] Address [address] [facility] [place] [address] Care Team Providers Care Coordinate Measuring Machine Operator Name Role Phone Sadie Thomas MD Primary Care Provider [phone] Katharine Olivarez SURGERY TEACHER Unavailable [phone] Encounter Details Date Type Department Care Team (Late st Contact Info) Description 05/27/2024 Abstract [facility] [address] [address] Jerry Wilson, DO [address] [facility] [address] [place] [address] Social History Tobacco Use Types Packs/Day Years [...] often do you attend chur ch or restorationism services? Never 03/15/2023 Do you belong to any clubs o r organizations such as buddhist groups, unions, fraternal or athletic groups, or [...] Recorded Patient Health Questionnaire-2 Score 0 03/15/2023 [facility] - Occupational [...] place to sleep or slept in a nursing home (including now)? No 03/15/2023 Education Answer Date [...] PM EDT Routine [facility] [address] [address] Jerry Wilson DO [address] [place] [address] documented as of this encounter Visit Diagnoses Not on filedocumented in this encounter Care Teams Coordinate Measuring Machine Operator Relationship Specialty Start Date End Date Sadie Thomas MD [address] [place] [address] PCP - General Family Medicine 10/22/23 Katharine Olivarez SURGERY TEACHER [address] [place] [address] Nurse Practitioner Family Medicine 10/22/23 documented as of this encounter
--- OUTSIDE RECORDS SUMMARY | 2024-08-07 17:10 | XMS_ITS | Clinical Summary ---
Author Organization [facility] Address [address] [place] [address] Care Team Providers Care Premises Technician Name Role Phone Sadie Thomas MD Primary Care Provider [phone] Katharine Olivarez NP Unavailable [phone] Allergies Active Allergy Reactions Criticality Noted Date Comments Amoxicillin 06/24/2024 Medications Vit-Fe Fumarate-FA ( Vitamins) 28-0.8 MG tabletIndication s:Missed menses, , unspecified gestational age ([facility]),Encoun ter for supervision of normal first in first trimester ([facility]) Take 1 tablet by mouth Daily 30 tablet 11 05/09/2024 05/10/19 26 Active cephalexin (Keflex) 500 MG capsuleIndicatio ns:Right otitis media, unspecified otitis media type Take 1 capsule (500 mg) by mouth in the morning and 1 capsule (500 mg) before bedtime. Do all this for 10 days. 20 capsule 08/05/2024 08/16/19 25 Active Active Problems Estimated Date of Delivery Comme nts Yes 10/12/2024 Based on Ultraso und, FHR- 135 No known active problems Encounters Date Type Department Care Team Description 08/05/2024 9:50 AM EDT Routine [facility] [address] [place] [address] [place] [address] Holli Roque PA Right otitis media, unspecified otitis media type (Primary Dx); Third trimester ([facility]); 30 weeks gestation of ([facility]); SGA (small for gestational age) ([facility]) 08/05/2024 Bamboo flowsheet [facility] [address] [facility] [facility] [facility] [place] [address] Holli Roque PA 07/23/2024 Abstract [facility] [address] [facility] [facility] [place] [address] Dominguez Wilson, 07/22/2024 1:20 PM EDT Routine [facility] [address] [place] [address] [place] [address] Dominguez Wilson, Third trimester ([facility]); 28 weeks gestation of ([facility]); SGA (small for gestational age) ([facility]) 07/22/2024 Bamboo flowsheet [facility] [address] [facility] [place] [address] Dominguez Wilson, 07/04/2024 Clinisync Result Encounter [facility] External Department Unsolicited Dominguez Wilson, 06/24/2024 1:50 PM EDT Routine [facility] [address] [facility] [place] [address] Dominguez Wilson, 24 weeks gestation of ([facility]); Second trimester ([facility]) 06/24/2024 Bamboo flowsheet [facility] [address] [place] [address] [place] [address] Dominguez Wilson, 06/19/2024 Abstract [facility] [address] [place] [address] [place] [address] Saadia Heck LPN 06/19/2024 Patient Outreach [facility] [address] [place] [address] Holli Avilez LPN 06/18/2024 Telephone [facility] [address] [place] [address] [place] [address] Blossom Wills MA 06/09/2024 10:50 AM EDT Office Visit [facility] [address] [place] [address] Dominguez Wilson, SOB (shortness of breath); Follow-up exam; Nausea and vomiting, unspecified vomiting type 06/09/[address] [facility] [address] [place] [address] Holli Roque PA 06/09/2024 Bamboo flowsheet [facility] [address] [place] [address] Dominguez Wilson, 06/06/20[address] [facility] [address] [place] [address] Dominguez Wilson, 06/05/[address] [facility] [address] [place] [address] Tamy Juarez, CHRISTINE 06/04/2024 Abstract [facility] [address] [place] [address] Dominguez Wilson, 06/04/2024 Clinisync Result Encounter [facility] External Department Unsolicited Dominguez Wilson, 06/02/20[address] [facility] [address] [place] [address] Tamy Juarez, CHRISTINE 05/30/2024 Results Follow-Up [facility] [address] [place] [address] Fabiola Callahan LPN SGA (small for gestational age) ([facility]) 05/30/[address] [facility] [address] [place] [address] Fabiola Callahan LPN 05/27/2024 Abstract [facility] [address] [place] [address] Dominguez Wilson, DO 05/27/2024 Clinisync Result Encounter [facility] External Department Unsolicited Dominguez Wilson, DO 05/27/2024 Clinisync Result Encounter [facility] External Department Unsolicited Dominguez Wilson, DO 05/22/2024 11:00 AM EDT Routine [facility] [address] [place] [address] Dominguez Wilson, DO Exposure to STD; Need for maternal serum alpha-protein (MSAFP) screening ([facility]); Second trimester ([facility]); 20 weeks gestation of ([facility]); Screening, , for anatomic survey ([facility]); Wheezing 05/22/2024 External Result Encounter [facility] External Department Unsolicited Dominguez Wilson, DO 05/22/2024 Bamboo flowsheet [facility] [address] [place] [address] Dominguez Wilson, DO 05/19/2024 Abstract [facility] [address] [place] [address] Dominguez Wilson, DO 05/09/2024 9:30 AM EDT Initial [facility] OB [address] [place] [address] GA: [id number] 05/09/2024 9:00 AM EDT Ancillary Procedure [facility] [address] [place] [address] Missed menses from Last 3 Months Family History Medical History Relation Name Comments Lung cancer Father mets to brain Relation Name Status Comments Father Mother Alive Social History Tobacco Use Types Packs/Day Years Used Date Smoking Tobacco: Never Smokeless Tobacco: Never Tobacco Cessation:Counseling Given: No Alcohol Use Standard Drinks/Week Comments Not Currently [...] often do you attend chur ch or anabaptism services? Never 03/15/2023 Do you belong to any clubs o r organizations such as yazidism groups, unions, fraternal or athletic groups, or [...] Recorded Patient Health Questionnaire-2 Score 0 03/15/2023 [facility] - Occupational Stress Questionnaire Answer Date [...] place to sleep or slept in a correction (including now)? No 03/15/2023 Education Answer Date [...] file Not on file Not on file Last Filed Vital Signs Vital Sign Reading Time Taken Comments Blood Pressure 102/50 08/05/2024 10:02 AM EDT Pulse 74 10/16/2023 2:13 PM EDT Temperature 36.8 C (98.2 F) 10/16/2023 2:13 PM EDT Respiratory Rate - - Oxygen Saturation 98% 10/16/2023 2:13 PM EDT Inhaled Oxygen Concentration - - Weight 76.7 kg (169 lb 2 oz) 08/05/2024 10:02 AM EDT Height 162.6 cm (5' 4 ) 10/16/2023 2:13 PM EDT Body Mass Index 29.03 10/16/2023 2:13 PM EDT Plan of Treatment Upcoming Encounters Date Type Department Care Team (Late st Contact Info) Description 08/19/2024 1:50 PM EDT Routine [facility] [address] [facility] [place] [address] Dominguez Wilson, DO [address] [place] [address] [place] [address] Health Maintenance Due Date Last Done Comments Influenza Vaccine (#1) 2024 Procedures Procedure Name Priority Date/Time Associated Diagnosis Comments POCT URINALYSIS DIPSTICK Routine 07/22/2024 1:34 PM EDT Third trimester ([facility]) ALL CBC WITH AUTO DIFF Routine 07/04/2024 9:50 AM EDT GLUCOSE 1 HOUR Routine 07/04/2024 9:50 AM EDT US OB GROWTH 07/04/2024 9:47 AM EDT POCT URINALYSIS DIPSTICK Routine 06/24/2024 1:55 PM EDT 24 weeks gestation of ([facility]) Second trimester ([facility]) CCF LIPASE Routine 06/04/2024 4:08 AM EDT ALL AMYLASE Routine 06/04/2024 4:08 AM EDT CCF CMP (CMP) (FOR REMOTE [facility] USE) Routine 06/04/2024 4:08 AM EDT ALL CBC WITH AUTO DIFF Routine 06/04/2024 4:08 AM EDT TBH URINE MICROSCOPIC ONLY Routine 06/04/2024 3:05 AM EDT TBH UA (CLEAN/CATCH) WAX BALL MOLDER/MICRO IF IND. Routine 06/04/2024 3:05 AM EDT US OB ANATOMY 05/27/2024 3:59 PM EDT US OB CERVICAL LENGTH 05/27/2024 3:54 PM EDT RECURRENT VAGINITIS (HTRX) Routine 05/22/2024 1:28 PM EDT POCT URINALYSIS DIPSTICK Routine 05/22/2024 11:39 AM EDT Second trimester ([facility]) POCT URINALYSIS DIPSTICK Routine 05/09/2024 10:25 AM EDT Missed menses POCT , URINE Routine 05/09/2024 10:24 AM EDT Missed menses US OB LIMITED 1+ FETUSES Routine 05/09/2024 10:10 AM EDT Missed menses from Last 3 Months Results * (ABNORMAL) POCT urinalysis dipstick manually resulted (07/22/2024 1:34 PM EDT) Only the most recent of4 resultswithin the time period is included. Color, UA Yellow Clarity, UA Clear Glucose, UA Negative Negative - 1999(110) ++++ mg/dL Bilirubin, UA Negative Negative - 4(70) +++ mg/dL Ketones, UA Negative Negative - 160(16) ++++ mg/dL Spec Grav, UA 1.015 1 - 1.03 Blood, UA Negative Negative - 50 Eliseo/mcL pH, UA 8.5 5 - 9 Protein, UA Negative Negative - 1999(20) ++++ mg/dL Urobilinogen, UA 0.2 0.2 - 12 mg/dL Leukocytes, UA Positive Negative - 500+++ Jeremias/mcL Comment:small Nitrite, UA Negative Negative - Positive Urine 07/22/2024 1:34 PM EDT us Dominguez Steve DO POINT OF CARE TEST ENTER/EDIT OR DERABLES Final Result * GLUCOSE 1 HOUR (07/04/2024 9:50 AM EDT) GLUCOSE 1 HOUR 103 <130 mg/dL TBH 07/04/2024 9:50 AM EDT 07/04/2024 9:52 AM EDT Narrative CLINISYNC - 07/04/2024 10:07 AM EDT us Dominguez Steve DO LAB BLOOD ORDERABLES Final Resul t [facility] * (ABNORMAL) ALL CBC WITH AUTO DIFF (07/04/2024 9:50 AM EDT) Only the most recent of2 resultswithin the time period is included. TB WBC 7.5 4.0 - 11.0 10 3/uL TBH TB RBC 3.82(L) 4.20 - 5.40 10 6/uL TBH TBH HGB 10.6(L) 12.0 - 16.0 g/dL TBH TB HCT 32.9(L) 36.0 - 48.0 % TBH TBH MCV 86.1 81.0 - 99.0 fL TBH TBH MCH 27.7 26.7 - 34.0 pg TBH TB MCHC 32.2 29.9 - 35.2 g/dL TB TB RDW 15.4(H) 11.0 - 15.0 % TBH TBH PLT 219 150 - 450 10 3/uL TBH TBH MPV 11.0 9.5 - 13.5 fL TBH NEUTROPHILS PERCENT AUTO 67.2 43.0 - 75.0 % TBH LYMPHOCYTES PERCENT AUTO 22.9 20.5 - 60.0 % TBH MONOCYTES PERCENT AUTO 7.1 1.7 - 12.0 % TBH TBH EO % 1.9 0.9 - 7.0 % TBH BASOPHILS PERCENT AUTO 0.4 0.2 - 2.0 % TBH IMMATURE GRANULOCYTES PCT AUTO 0.5 0.0 - 0.5 % TBH NEUTROPHILS ABSOLUTE AUTO 5.0 1.4 - 6.5 10 3/uL TBH LYMPHOCYTES ABSOLUTE AUTO 1.7 1.2 - 3.8 10 3/uL TBH MONOCYTES ABSOLUTE AUTO 0.5 0.3 - 0.8 10 3/uL TBH TBH EO # 0.1 0.0 - 0.7 10 3/uL TBH BASOPHILS ABSOLUTE AUTO 0.0 0.0 - 0.1 10 3/uL TBH IMMATURE GRANULOCYTES ABS AUTO 0.04(H) 0.00 - 0.03 10 3/uL TBH 07/04/2024 9:50 AM EDT 07/04/2024 9:52 AM EDT Narrative CLINISYNC - 07/04/2024 10:26 AM EDT us Dominguez Wilson DO CLINISYMIHAI Final Result [facility] * US OB GROWTH (07/04/2024 9:47 AM EDT) Anatomical Region Laterality Modality Other 07/04/2024 9:47 AM EDT Narrative 07/04/2024 9:49 [place] [address] Ultrasound Report Signed Patient: KARLA TYLER MR#: [id number] : 2005 Acct:[id number] Age/Sex: 19 / F ADM Date: 07/04/24 Loc: US Attending Dr: Dominguez Wilson D.O. Ordering Physician: Dominguez Wilson D.O. Date of Service: 07/04/24 Procedure(s): US OB growth Accession Number(s): [id number] cc: Dominguez Wilson D.O.; Physician,Non-Staff MArleth [address] [address] Patient Name: KARLA TYLER MRN: TBH:[id number] date: 2005 Sex: F Assigned Patient Location: US Current Patient Location: US Accession/Order Number: [id number] Exam Date: 07/04/2024 09:40 Report Date: 07/04/2024 09:47 At the request of: DOMINGUEZ WILSON DO Procedure: US OB growth ULTRASOUND OB GROWTH COMPARISON: 05/27/2024 CLINICAL DATA: Small for gestational age. There is a single live anterior gestation in cephalic presentation. There is cardiac and somatic activity with heart rate of 137 bpm. The amniotic fluid index measures 12.3 cm which is in low-normal range. The placenta is anterior and fundal. The following measurements were obtained: Biparietal diameter 6.1 cm 24 weeks 6 days 16% Head circumference 2.8 cm 24 weeks 6 days 7% Abdominal circumference 19.6 cm 24 weeks 2 days 8% Femur length 4.3 cm 24 weeks 0 days 4% The composite ultrasound age based on these measurements is 24 weeks 4 days +/- 1 week 5 days. The estimated date of delivery is 10/20/2024. The estimated date of delivery at the time of the comparison was 10/17/2024. US/US OB growth IMPRESSION: SINGLE LIVE INTRAUTERINE GESTATION WITH ULTRASOUND AGE OF 24 WEEKS 4 DAYS. Impression dictated by: Tavia Roe M.D. 07/04/2024 9:47 AM Dictation Location: [place] [address] Electronically authenticated by: [id number] Y Date: 07/04/2024 09:47 Dictated By: Tavia Roe M.D. Signed By: 07/04/24 0949 DD/ TD/TT: Quality Assurance Supervisor Final: Procedure Note Radiology, Radiologist, - 07/04/2024 [place] [address] Ultrasound Report Signed Patient: KARLA TYLER AMR#: [id number] : 2005Acct:[id number] Age/Sex: 19 / FADM Date: 07/04/24 Loc: US Attending Dr: Dominguez Wilson D.O. Ordering Physician: Dominguez Wilson D.O. Date of Service: 07/04/24 Procedure(s): US OB growth Accession Number(s): [id number] cc: Dominguez Wilson D.O.; Physician,Non-Staff Christine The [place] [id number] Patient Name: KARLA TYLER MRN: [facility]:[id number] date: 2005 Sex: F Assigned Patient Location: Current Patient Location: Accession/Order Number: [id number] Exam Date: 07/04/2024 09:40 Report Date: 07/04/2024 09:47 At the request of: DOMINGUEZ WILSON DO Procedure: US OB growth ULTRASOUND OB GROWTH COMPARISON: 05/27/2024 CLINICAL DATA: Small for gestational age. There is a single live anterior gestation in cephalic presentation. Thereis cardiac and somatic activity with heart rate of 137 bpm. Theamniotic fluid index measures 12.3 cm which is in low-normal range. The placentais anterior and fundal. The following measurements were obtained: Biparietal diameter 6.1 cm 24 weeks 6 days 16% Head circumference 2.8 cm 24 weeks 6 days 7% Abdominal circumference 19.6 cm 24 weeks 2 days 8% Femur length 4.3 cm 24 weeks 0 days 4% The composite ultrasound age based on these measurements is 24 weeks 4days +/- 1 week 5 days. The estimated date of delivery is 10/20/2024. The estimated date of delivery at the time of the comparison was 10/17/2024. US/US OB growth IMPRESSION: SINGLE LIVE INTRAUTERINE GESTATION WITH ULTRASOUND AGE OF 24 WEEKS 4 DAYS. Impression dictated by: Tavia Roe M.D. 07/04/2024 9:47 AM Dictation Location: [place] [address] Electronically authenticated by: [id number] Y Date: 509:47 Dictated By: Tavia Roe M.D. Signed By:07/04/24 0949 DD/ 6 TD/TT: Quality Assurance Supervisor Final: Dominguez Wilson DO CLINISYNC IMAGING Final Result * CCF LIPASE (06/04/2024 4:08 AM EDT) LIPASE 29.0 16.0 - 77.0 U/L TBH 06/04/2024 4:08 AM EDT 06/04/2024 4:29 AM EDT Narrative CLINISYNC - 06/04/2024 4:51 AM EDT us Dominguez Steve DO CLINISYNC Final Result CLINISYNC TB * (ABNORMAL) CCF CMP (CMP) (FOR REMOTE [facility] USE) (06/04/2024 4:08 AM EDT) SODIUM 139 136 - 145 mmol/L TBH POTASSIUM 3.4(L) 3.5 - 5.1 mmol/L TBH CHLORIDE 103 98 - 107 mmol/L TBH CARBON DIOXIDE 25.3 21.0 - 32.0 mmol/L TBH ANION GAP 14.1 TBH GLUCOSE 86 74 - 106 mg/dL TBH BLOOD UREA NITROGEN 5.0(L) 7.0 - 18.0 mg/dL TBH CREATININE 0.56 0.55 - 1.02 mg/dL TBH TBH EGFR-AF GREENLANDIC >60 >=60 mL/min/1. 73m 2 TBH TBH EGFR-NON AF GRE[place]IC >60 >=60 mL/min/1. 73m 2 TBH BUN CREATININE RATIO 8.9 TBH CALCIUM 8.4(L) 8.5 - 10.1 mg/dL TBH BILIRUBIN TOTAL 0.2 0.2 - 1.0 mg/dL TBH ASPARTATE AMINO TRANSFERASE 15 15 - 37 U/L TBH ALANINE AMINOTRANSFERASE 16 14 - 59 U/L TBH ALKALINE PHOSPHATASE 78 46 - 116 U/L TBH TOTAL PROTEIN 6.3(L) 6.4 - 8.2 g/dL TBH ALBUMIN LEVEL 2.6(L) 3.4 - 5.0 g/dL TBH GLOBULIN 3.7 g/dL TBH ALBUMIN GLOBULIN RATIO 0.7 TBH 06/04/2024 4:08 AM EDT 06/04/2024 4:29 AM EDT Narrative CLINISYNC - 06/04/2024 4:51 AM EDT us Dominguez Mckeono DO CLINISYNC Final Result [facility] * ALL AMYLASE (06/04/2024 4:08 AM EDT) AMYLASE 51 25 - 115 U/L TBH 06/04/2024 4:08 AM EDT 06/04/2024 4:29 AM EDT Narrative CLINISYNC - 06/04/2024 4:51 AM EDT Dominguez Steve DO CLINISYNC Final Result Performing Organization Address [facility] de Phone Number CLINISYNC TBH * (ABNORMAL) TBH URINE MICROSCOPIC ONLY (06/04/2024 3:05 AM EDT) Pathologist [facility] TBH WBC 2-5(A) NONE SEEN #/HPF TBH TBH RBC NONE SEEN 0 - 2 #/HPF TBH BACTERIA URINE SMALL(A) NONE SEEN #/HPF TBH MUCUS URINE NONE SEEN NONE SEEN TBH SQUAMOUS EPITHELIAL CELL URINE FEW(A) NONE/RARE #/LPF TBH CRYSTALS SEEN? None Seen None Seen #/HPF TBH CAST SEEN? NONE SEEN NONE SEEN #/LPF TBH URINE CULTURE INDICATED YES-LC TBH 06/04/2024 3:05 AM EDT 06/04/2024 3:29 AM EDT Narrative CLINISYNC - 06/04/2024 3:43 AM EDT Dominguez Steve DO CLINISYNC Final Result Performing Organization Address [facility] Co de Phone Number CLINISYNC TBH * (ABNORMAL) TBH UA (CLEAN/CATCH) WAX BALL MOLDER/MICRO IF IND. (06/04/2024 3:05 AM EDT) COLOR URINE YELLOW YELLOW TBH CLARITY URINE CLEAR CLEAR TBH SPECIFIC GRAVITY URINE 1.025 1.005 - 1.025 TBH PH URINE 6.0 5.0 - 9.0 TBH PROTEIN URINE NEGATIVE NEG/TRACE mg/dL TBH GLUCOSE URINE UA NEGATIVE NEGATIVE mg/dL TBH BILIRUBIN URINE NEGATIVE NEGATIVE TBH KETONES URINE NEGATIVE NEGATIVE mg/dL TBH BLOOD URINE NEGATIVE NEGATIVE TBH NITRITE URINE NEGATIVE NEGATIVE TBH UROBILINOGEN URINE 0.2 0.2 - 1.0 EU/dL TBH LEUKOCYTE ESTERASE URINE TRACE(A) NEGATIVE TBH URINE MICROSCOPIC INDICATED YES TBH 06/04/2024 3:05 AM EDT 06/04/2024 3:29 AM EDT Narrative CLINISYNC - 06/04/2024 3:43 AM EDT Dominguez Wilson DO CLINISYNC Final Result Performing Organization Address City/State/[facility] Co de Phone Number CLINISYNC TB * US OB ANATOMY (05/27/2024 3:59 PM EDT) Anatomical Region Laterality Modality Other 05/27/2024 3:59 PM EDT Narrative 05/27/2024 4:02 [place] [address] Ultrasound Report Signed Patient: KRALA TYLER MR#: [id number] : 2005 Acct:[id number] Age/Sex: 19 / F ADM Date: 05/27/24 Loc: US Attending Dr: Dominguez Wilson D.O. Ordering Physician: Dominguez Wilson D.O. Date of Service: 05/27/24 Procedure(s): US OB anatomy Accession Number(s): [id number] cc: Dominguez Wilson D.O.; Physician,Non-Staff M.DFarzad The [address] [address] Patient Name: KARLA TYLER MRN: [id number] date: 2005 Sex: F Assigned Patient Location: US Current Patient Location: US Accession/Order Number: [id number] Exam Date: 05/27/2024 15:55 Report Date: 05/27/2024 15:59 At the request of: DOMINGUEZ WILSON DO Procedure: US OB anatomy Obstetrical [...] Vijay Castaneda M.D.05/27/2024 3:59 PM Dictation Location: [place] [address] Electronically authenticated by: [id number] Y Date: 05/27/2024 15:59 Dictated By: Vijay Castaneda D.O. Signed By: 05/27/24 1602 DD/ 1559 TD/TT: Quality Assurance Supervisor Final: Procedure Note Radiology, Radiologist, MD - 05/27/2024 [place] [address] Ultrasound Report Signed Patient: KARLA TYLER AMR#: [id number] : 2005Acct:[id number] Age/Sex: 19 / FADM Date: 05/27/24 Loc: US Attending Dr: Dominguez Wilson D.O. Ordering Physician: Dominguez Wilson D.O. Date of Service: 05/27/24 Procedure(s): US OB anatomy Accession Number(s): [id number] cc: Dominguez Wilson D.O.; Physician,Non-Staff M.D. The [address] [address] Patient Name: KARLA TYLER MRN: [id number] date: 2005 Sex: F Assigned Patient Location: Current Patient Location: Accession/Order Number: [id number] Exam Date: 05/27/2024 15:55 Report Date: 05/27/2024 15:59 At the request of: DOMINGUEZ WILSON DO Procedure: US OB anatomy Obstetrical Ultrasound for Fetus greater than 14 weeks HISTORY: anatomy assessment heart rate is 135 bpm. The fetus is in cephalic presentation. The longitudinal lie The placenta is in a anterior fundalposition with normal appearance. Amniotic fluid index subjectively normal. The cervix has a length of 4.1cm. The estimated weight is 295 g. with dzurjrqkdp30.9%. The ovaries are not visualized. No fluid identified in the cul-de-sac. Following anatomy identifiedwithout ventricles, cerebellum,posterior fossa, nose and lips, orbits, four-chamber heart, right ventricularoutflow track and left ventricular outflow track, diaphragm, [...] Vijay Castaneda M.D.05/27/2024 3:59 PM Dictation Location: [place] [address] Electronically authenticated by: [id number] Y Date: 5:59 Dictated By: Vijay Castaneda D.O. Signed By:05/27/24 1602 DD/ 1559 TD/TT: Quality Assurance Supervisor Final: us Dominguez Wilson DO CLINISYNC IMAGING Final Result * US OB CERVICAL LENGTH (05/27/2024 3:54 PM EDT) Anatomical Region Laterality Modality Other 05/27/2024 3:54 PM EDT Narrative 05/27/2024 3:57 PM EDT [address] [address] Ultrasound Report Signed Patient: KARLA TYLER MR#: [id number] : 2005 Acct:[id number] Age/Sex: 19 / F ADM Date: 05/27/24 Loc: US Attending Dr: Dominguez Wilson D.O. Ordering Physician: Dominguez Wilson D.O. Date of Service: 05/27/24 Procedure(s): US OB cervical length Accession Number(s): [id number] cc: Dominguez Wilson D.O.; Physician,Non-Staff Christine The [address] [address] Patient Name: KARLA TYLER MRN: [id number] date: 2005 Sex: F Assigned Patient Location: US Current Patient Location: US Accession/Order Number: [id number] Exam Date: 05/27/2024 15:54 Report Date: 05/27/2024 15:54 At the request of: DOMINGUEZ WILSON DO Procedure: US OB cervical length Ultrasound to assess for cervical length Cervical length 4.1 cm. This the cervix is closed. US/US OB cervical length IMPRESSION: 4.1 cm cervical length Impression dictated by: Vijay Castaneda M.D.05/27/2024 3:54 PM Dictation Location: [place] [address] Electronically authenticated by: [id number] Y Date: 05/27/2024 15:54 Dictated By: Vijay Castaneda D.O. Signed By: 05/27/24 1557 DD/ 1554 TD/TT: Quality Assurance Supervisor Final: Procedure Note Radiology, Radiologist, MD - 05/27/[address] [address] Ultrasound Report Signed Patient: KARLA TYLER AMR#: [id number] : 2005Acct:[id number] Age/Sex: 19 / FADM Date: 05/27/24 Loc: US Attending Dr: Dominguez Wilson D.O. Ordering Physician: Dominguez Wilson D.O. Date of Service: 05/27/24 Procedure(s): US OB cervical length Accession Number(s): [id number] cc: Dominguez Wilson D.O.; Physician,Non-Staff Christine The [place] [address] Patient Name: KARLA TYLER MRN: [id number] date: 2005 Sex: F Assigned Patient Location: US Current Patient Location: US Accession/Order Number: [id number] Exam Date: 05/27/2024 15:54 Report Date: 05/27/2024 15:54 At the request of: DOMINGUEZ WILSON DO Procedure: US OB cervical length Ultrasound to assess for cervical length Cervical length 4.1 cm. This the cervix is closed. US/US OB cervical length IMPRESSION: 4.1 cm cervical length Impression dictated by: Vijay Castaneda M.D.05/27/2024 3:54 PM Dictation Location: [place] [address] Electronically authenticated by: [id number] Y Date: 5:54 Dictated By: Vijay Castaneda D.O. Signed By:05/27/24 1557 DD/ 1554 TD/TT: Quality Assurance Supervisor Final: us Dominguez Wilson DO [facility] Final Result * RECURRENT VAGINITIS (HTRX) (05/22/2024 1:28 PM EDT) ATOPOBIUM VAGINAE 0.000 19.961 - 24.689 ppm 05/23/2024 7:44 AM EDT [facility] ATOPOBIUM VAGINAE Not Detected 19.961 - 24.689 ppm 05/23/2024 7:44 AM EDT [facility] [place] BVAB 2,3 (BACTERIAL VAGINOSIS ASSOCIATED BACTERIA 2, 3); MOBILUNCUS SPP 0.000 19.961 - 24.689 ppm 05/23/2024 7:44 AM EDT [facility] [place] BVAB 2,3 (BACTERIAL VAGINOSIS ASSOCIATED BACTERIA 2, 3); MOBILUNCUS SPP Not Detected 19.961 - 24.689 ppm 05/23/2024 7:44 AM EDT [facility] [place] DUANE ALBICANS, PARAPSILOSIS, TROPICALIS 0.000 19.961 - 30.770 ppm 05/23/2024 7:44 AM EDT [facility] [place] DUANE ALBICANS, PARAPSILOSIS, TROPICALIS Not Detected 19.961 - 30.770 ppm 05/23/2024 7:44 AM EDT [facility] [place] DUANE GLABRATA 0.000 23.000 - 32.138 ppm 05/23/2024 7:44 AM EDT [facility] DUANE GLABRATA Not Detected 23.000 - 32.138 ppm 05/23/2024 7:44 AM EDT [facility] DUANE KRUSEI 0.000 23.000 - 32.271 ppm 05/23/2024 7:44 AM EDT [facility] DUANE KRUSEI Not Detected 23.000 - 32.271 ppm 05/23/2024 7:44 AM EDT [facility] CHLAMYDIA TRACHOMATIS 0.000 23.000 - 31.467 ppm 05/23/2024 7:44 AM EDT [facility] CHLAMYDIA TRACHOMATIS Not Detected 23.000 - 31.467 ppm 05/23/2024 7:44 AM EDT [facility] GARDNERELLA VAGINALIS 0.000 19.961 - 24.689 ppm 05/23/2024 7:44 AM EDT [facility] GARDNERELLA VAGINALIS Not Detected 19.961 - 24.689 ppm 05/23/2024 7:44 AM EDT [facility] MEGASPHAERA (TYPES 1, 2) 0.000 19.961 - 24.689 ppm 05/23/2024 7:44 AM EDT [facility] MEGASPHAERA (TYPES 1, 2) Not Detected 19.961 - 24.689 ppm 05/23/2024 7:44 AM EDT [facility] NEISSERIA GONORRHOEAE 0.000 23.000 - 32.117 ppm 05/23/2024 7:44 AM EDT [facility] NEISSERIA GONORRHOEAE Not Detected 23.000 - 32.117 ppm 05/23/2024 7:44 AM EDT [facility] TRICHOMONAS VAGINALIS 0.000 23.000 - 32.119 ppm 05/23/2024 7:44 AM EDT [facility] TRICHOMONAS VAGINALIS Not Detected 23.000 - 32.119 ppm 05/23/2024 7:44 AM EDT [facility] MYCOPLASMA GENITALIUM 0.000 19.961 - 24.689 ppm 05/23/2024 7:44 AM EDT [facility] MYCOPLASMA GENITALIUM Not Detected 19.961 - 24.689 ppm 05/23/2024 7:44 AM EDT [facility] Tissue 05/22/2024 1:28 PM EDT 05/23/2024 2:11 AM EDT Dominguez Wilson DO LAB BLOOD ORDERABLES Final Resul t [facility] [address] [place] [address] * (ABNORMAL) POCT , urine manually resulted (05/09/2024 10:24 AM EDT) Preg Test, Ur Positive Negative Urine 05/09/2024 10:2 4 AM EDT us Dominguez Wilson DO POINT OF CARE TEST ENTER/EDIT OR DERABLES Final Result * US OB limited 1+ fetuses (05/09/2024 10:10 AM EDT) Anatomical Region Laterality Modality Body Ultrasound 05/11/2024 10:3 8 PM EDT Narrative 05/11/2024 10:38 PM EDT EXAM: US OB LIMITED 1+ FETUSES HISTORY: Dating. COMPARISON: None available. [...] II, MD, PHD at 11-May-2024 10:37:55 PM [facility] Procedure Note Ras Mckinley MD - 05/11/2024 EXAM: US OB LIMITED 1+ FETUSES HISTORY: Dating. COMPARISON: None available. TECHNIQUE: Two-dimensional transabdominal grayscale ultrasound imaging ofthe pelvis was performed. FINDINGS: Gestation: Single Presentation: Variable Cardiac Activity: 139 beats per minute Placental Location: Anterior with no sonographic abnormalitiesidentified. Cervical canal: Not visualized Amniotic Fluid: Appears adequate MEASUREMENTS: BPD: 3.9 cm EGA: 17 weeks 5 days HC: 13.7 cm EGA: 17 weeks 1 days AC: 12.7 cm EGA: 18 weeks 2 days FL: 2.4 cm EGA: 17 weeks 3 days HC/AC Ratio: 1.08 The gestational age by today's ultrasound is 17 weeks 5 days (+/- 9 daysgestation). IMPRESSION: 1. Single, live intrauterine gestation 10 weeks, 6 days by LMP. Today'sultrasound measurements correlate with a gestational age of 17 weeks 5days. ALISHA is 10/12/2024. Electronically Signed:Electronically signed by RAS MCKINLEY II, MD, PHDat 11-May-2024 10:37:55 PM [facility] us Dominguez Steve DO IMG OB US PROCEDURES Final Resul t from Last 3 Months Insurance [employer] BCBS MEDICA[place] Care Teams Premises Technician Relationship Specialty Start Date End Date Sadie Thomas MD [address] [place] [address] PCP - General Family Medicine 10/22/23 Katharine Olivarez NP [address] [place] [address] Nurse Practitioner Family Medicine 10/22/23
--- OUTSIDE RECORDS SUMMARY | 2024-08-07 17:10 | XMS_ITS | Encounter Summary ---
Author Organization [facility] Address [address] [facility] [place] [address] Care Team Providers Care School Teacher Name Role Phone Sadie Thomas MD Primary Care Provider [phone] Katharine Olivarez SERVICE ARCHITECT Unavailable [phone] Encounter Details Date Type Department Care Team (Late st Contact Info) Description 07/23/2024 Abstract [facility] BCP OB [address] [facility] [place] [address] Jerry Wilson, DO [address] [facility] [place] [address] Social History Tobacco Use Types Packs/Day Years [...] often do you attend chur ch or voodoo services? Never 03/15/2023 Do you belong to any clubs o r organizations such as yarsani groups, unions, fraternal or athletic groups, or [...] Recorded Patient Health Questionnaire-2 Score 0 03/15/2023 [facility] of Occupat ional Health - Occupational [...] place to sleep or slept in a snf (including now)? No 03/15/2023 Education Answer Date [...] [address] [facility] [place] [address] Jerry Wilson DO [address] [place] [address] documented as of this encounter Visit Diagnoses Not on filedocumented in this encounter Care Teams School Teacher Relationship Specialty Start Date End Date Sadie Thomas MD [address] [place] [address] PCP - General Family Medicine 10/22/23 Katharine Olivarez SERVICE ARCHITECT [address] [place] [address] Nurse Practitioner Family Medicine 10/22/23 documented as of this encounter
--- OUTSIDE RECORDS SUMMARY | 2024-08-07 17:10 | XMS_ITS | Encounter Summary ---
Author Organization [facility] Address [address] [facility] [place] [address] Care Team Providers Care Regional Psychiatric Director Name Role Phone Sadie Thomas MD Primary Care Provider [phone] Katharine Olivarez MICROWAVE RADIO TECHNICIAN Unavailable [phone] Encounter Details Date Type Department Care Team (Late st Contact Info) Description 06/04/2024 Abstract [facility] BCP OB [address] [facility] [place] [address] Jerry Wilson, DO [address] [facility] [place] [address] Social History Tobacco Use Types Packs/Day Years [...] often do you attend chur ch or anabaptist services? Never 03/15/2023 Do you belong to any clubs o r organizations such as bahai groups, unions, fraternal or athletic groups, or [...] Recorded Patient Health Questionnaire-2 Score 0 03/15/2023 [facility] of Occupat ional Health [...] place to sleep or slept in a care home (including now)? No 03/15/2023 Education Answer [...] PM EDT Routine [facility] BCP OB [address] [facility] [place] [address] Jerry Wilson DO [address] [place] [address] documented as of this encounter Visit Diagnoses Not on filedocumented in this encounter Care Teams Regional Psychiatric Director Relationship Specialty Start Date End Date Sadie Thomas MD [address] [place] [address] PCP - General Family Medicine 10/22/23 Katharine Olivarez MICROWAVE RADIO TECHNICIAN [address] [place] [address] Nurse Practitioner Family Medicine 10/22/23 documented as of this encounter
--- OUTSIDE RECORDS SUMMARY | 2024-08-07 17:10 | XMS_ITS | Encounter Summary ---
Author Organization [facility] Address [address] [place] [address] Care Team Providers Care Alarm Operator Name Role Phone Sadie Thomas MD Primary Care Provider [phone] Katharine Olivarez CORROSION PREVENTION METAL SPRAYER Unavailable [phone] Encounter Details Date Type Department Care Team (Late st Contact Info) Description 06/19/2024 Abstract [facility] BCP OB [address] [facility] [place] [address] Saadia Heck LPN Social History Tobacco Use Types Packs/Day Years [...] often do you attend chur ch or congregation services? Never 03/15/2023 Do you belong to any clubs o r organizations such as restoration groups, unions, fraternal or athletic groups, or [...] Recorded Patient Health Questionnaire-2 Score 0 03/15/2023 [facility] of Occupat ional Health - Occupational Stress [...] place to sleep or slept in a fpc (including now)? No 03/15/2023 Education Answer Date [...] PM EDT Routine [facility] BCP OB [address] [place] [address] Jerry Wilson, DO [address] [facility] [address] [place], [place] [id number] documented as of this encounter Visit Diagnoses Not on filedocumented in this encounter Care Teams Alarm Operator Relationship Specialty Start Date End Date Sadie Thomas MD [address] [place] [address] PCP - General Family Medicine 10/22/23 Katharine Olivarez NP [address] [place] [address] Nurse Practitioner Family Medicine 10/22/23 documented as of this encounter
--- OUTSIDE RECORDS SUMMARY | 2024-08-07 17:10 | XMS_ITS | Encounter Summary ---
Author Organization [facility] Address [address] [facility] [place] [address] Care Team Providers Care Clerical Grader Name Role Phone Sadie Thomas MD Primary Care Provider [phone] Katharine Olivarez TECHNICAL SERVICES SPECIALIST Unavailable [phone] Encounter Details Date Type Department Care Team (Late st Contact Info) Description 05/19/2024 Abstract [facility] BCP OB [address] [place] [address] Jerry Wilson, DO [address] [facility] [place] [address] Social History Tobacco Use Types Packs/Day Years [...] any clubs o r organizations such as latter day groups, unions, fraternal or athletic groups, or [...] Recorded Patient Health Questionnaire-2 Score 0 03/15/2023 [facility] of Occupat ional Health - Occupational Stress [...] place to sleep or slept in a long term (including now)? No 03/15/2023 Education Answer Date [...] PM EDT Routine [facility] BCP OB [address] [place] [address] Jerry Wilson DO [address] [place] [address] documented as of this encounter Visit Diagnoses Not on filedocumented in this encounter Care Teams Clerical Grader Relationship Specialty Start Date End Date Sadie Thomas MD [address] [place] [address] PCP - General Family Medicine 10/22/23 Katharine Olivarez TECHNICAL SERVICES SPECIALIST [address] [place] [address] Nurse Practitioner Family Medicine 10/22/23 documented as of this encounter
--- NOTE | 2024-08-07 17:12 | US_ITS ---
[place] [id number] Patient Name: JORDIN TYLER MRN: [id number] date: 2005 Sex: F Assigned Patient Location: [facility] Current Patient Location: Accession/Order Number: [id number] Exam Date: 08/07/2024 19:26 Report Date: 08/07/2024 19:26 At the request of: AVANI SCHULTE Procedure: US OB BPP w non-stress Ultrasound biophysical profile HISTORY: Small for gestational age Adequate breathing movement, gross body movement, tone and amniotic fluid volume for total score of 8 out of 8. The amniotic fluid index is 15.9cm within normal limits. The heart rate 148 bpm. US/US OB BPP w non-stress IMPRESSION: Adequate ultrasound biophysical profile Impression dictated by: Vijay Castaneda M.D. 08/07/2024 7:26 PM Dictation Location: [place] [address] Electronically authenticated by: [id number] Y Date: 08/07/2024 19:26
[2024-08-07 17:35] VITALS: BP 117/55; PULSE 76
== END 2024-08-07 18:03 | disposition home or self-care (01) ==
LOC: US 17:08 → FBC 17:13
PROVIDERS: Visit Provider Physician Assistant
DX: O26.843 Uterine size-date discrepancy, third trimester (principal); Z3A.30 30 weeks gestation of pregnancy
CPT/HCPCS: 76818

== ENCOUNTER 2024-08-11 11:44 | Outpatient (OUT) | payer MEDICAID, SELFPAY ==
--- OUTSIDE RECORDS SUMMARY | 2008-06-26 06:00 | XMS_ITS | Continuity of Care Document ---
Author Organization [facility] Address [address] [place] [address] Phone Care Team Providers Care Processing Inspector Name Role Phone Eunice GABRIEL Mitch Unavailable Unavailable Procedures Procedure Date OFFICE/OUTPATIENT VISIT, [facility] DTAP VACCINE, < 7 YRS, IM MMR VACCINE, [place] POLIOVIRUS, IPV, [place]/IM CHICKEN POX VACCINE, [place] Advance Directives Directive Yes / No Effective Date File Name No Information Encounters Encounter Description Practice Location Reason(s) For Visit Diagnoses Date Provider Providers Copied on Encounter OFFICE/OUTPATI ENT VISIT, [facility], [address], [place], [id number], [place] tel:[phone] [facility] No Information Eunice Cox. [address], [place], [id number], [place]. tel:[phone] Family History Family Member Type Diagnosis Age At Onset No Information Payers Payer name Insurance type Covered green party ID Authoriza tion(s) No Information Social History Type Description Quantity Date Captured Comments Sex Female Smoking Status No Information Sexual Orientation Straight or heterosexual Gender Identity Female Chief Complaint And Reason For Visit No Information Reason For Referral Reason For Referral No Information History Of Present Illness Encounter Date Complaint History Of Prese nt Illness No Information Functional Status Date Functional Assessmen t No Information Instructions Date Instruction Additional Infor mation No Information Assessments Type Assessment Date No Information Patient Care Teams Name Effective Dates (start - stop) Status Members No Information
--- OUTSIDE RECORDS SUMMARY | 2024-03-20 09:00 | XMS_ITS ---
Author Organization [facility] Address [address] [facility] [place] [address] Care Team Providers Care Oxyacetylene Welder Name Role Phone Soraida Sandy Primary Care Provider Brenna Turner [phone] REASON FOR VISIT FILLING Encounters Encounter Location Date Provider Diagnosis [facility] [address] [facility] [place] [address] 03/20/2024 Brenna Turner Plan Of Treatment No Information Progress Notes * ESTHER TYLEROB: 4 (19 yo F)Acc No.[id number]:03/20/2024 Patient: JORDIN ROWAN Provider: Andrea Turner :2005 A ge:19 Y S ex:Female Date:03/20/2024 Address:[address] [place] [address] [id number] Pcp:Soraida Frausto Subjective: * Chief Complaints: * 1 . FILLING. * Medical History: Objective: * Vitals: Assessment: Plan: * Treatment: * Images: * Electronic signature of Eliu Turner DMD on 08/11/2024 at 11:47 AM EDT Sign off status: Pending * Provider: Andrea Turner Date: 03/20/2024 Generated for Cornelio edwards/Heather/eTransmitting on: 0 08/11/2024 11:47 AM EDT
--- OUTSIDE RECORDS SUMMARY | 2024-07-14 07:00 | XMS_ITS ---
Author Organization [facility] es Address [address] [place] [address] Care Team Providers Care Computer Systems Design Analyst Name Role Phone Soraida Sandy Primary Care Provider Dr. Carrillo Alegre [facility] [phone] REASON FOR VISIT FILLING Encounters Encounter Location Date Provider Diagnosis [address] [facility] [place] [address] 2024 Carrillo Alegre Plan Of Treatment No Information Progress Notes * JAYSON JOSEEDOB: 4 (19 yo F)Acc No.[id number]:07/14/2024 Patient: JORDIN ROWAN Provider: Andrea Alegre DDS :2005 A ge:19 Y S ex:Female Date:07/14/2024 Address:[facility] [place] [place] [facility] Pcp:Soraida Frausto Subjective: * Chief Complaints: * 1 . FILLING. * Medical History: Objective: * Vitals: Assessment: Plan: * Treatment: * Images: * Electronic signature of Dr. Carrillo Alegre , DMD on 08/11/2024 at 11:46 AM EDT Sign off status: Pending * Provider: Andrea Alegre DDS Date: 07/14/2024 Generated for Johni ng/Fajacksong/eTransmitting on: 08/11/2024 11:46 AM EDT
--- OUTSIDE RECORDS SUMMARY | 2024-08-05 09:39 | XMS_ITS ---
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 Name Role Phone DOMINGUEZ HOGAN Attending Unavailable DOMINGUEZ HOGAN Attending Unavailable DOMINGUEZ HOGAN Attending Unavailable DOMINGUEZ HOGAN Attending Unavailable MAGALIS SNOW Attending Unavailable MAK JORDAN Attending Unavailable AVANI SCHULTE Attending Unavailable Wil Rider Attending Unavailab Wil Loco Admitting Unavailab John Paul Duncan Primary Care Unavailable DOMINGUEZ HOGAN Referring Unavailable Magalis Snow Attending Unavailable Magalis Snow Admitting Unavailable Ras Miller Attending Unavailable Ras Miller Admitting Unavailable Ras Miller Attending Unavailable Ras Miller Admitting Unavailable Magalis Snow Attending Unavailable Magalis Snow Admitting Unavailable Ras Miller Attending Unavailable Ras Miller Admitting Unavailable Magalis Snow Admitting Unavailable Magalis Snow Attending Unavailable BREANA WRAY Attending Unavailable BREANA WRAY Attending Unavailable Magalis Snow Attending Unavailable Magalis Snow Admitting Unavailable PROBLEMS DATE TYPE CONDITION / CODE ATTENDING STATUS [facility] 07/22/2024 Unknown Abnormal ultraso kelby finding on screening of mother / O28.3(ICD-10) NA Active [facility] 09/10/2023 Unknown O09.33 / O09.33(ICD-10) Magalis Snow Active [facility] PROCEDURES No Procedure Records Found RESULTS FAMILY MEDICINE OFFICE/CLINI C NOTE Observed: 07/02/2024 4:42 PM Status: F Source: [facility] Family Medicine Office/Clini c [facility] CC: ear pain Onset: Right side, started last week Details: thinks it may be the tooth, can't have it removed until after the baby, it has been given her trouble. Amoxicillin gave her hives, so she could not finish it. It was prescribed about one month ago. She had a bronchiole infection too around that time and was on a z-pack. Patient is . She is at 24-25 weeks. Has US coming up soon. Objective Vitals & Measurements T: 36.7 ???C(Oral) HR: 65(Peripheral) BP: 115/47 SpO2: 98% Intake & Output No qualifying data available. Physical Exam General: Well hydrated, no apparent distress Head: Normocephalic atraumatic Eyes: EOMI, sclera clear Ears: Bilateral tympanic membranes pearly solo with good cone of light Nose: No deformity, discharge, inflammation or lesion Mouth: multiple posterior lower right molars are cracked, mild swelling of gums Neck: No cervical lymphadenopathy Lungs: Lungs clear to auscultation Cardio: Regular rate and rhythm with no murmur Lab Results No qualifying data available. Assessment/Plan 1. Tooth ache (K08.89: Other specified disorders of teeth and supporting structures) Assessment: this condition is acute Evaluation:worsening, progression of symptoms Plan: Monitoring: observe for worsening symptoms, contact the office if needed_ Recheck in 10-14 days Treatment: will START taking the following medication(s): Cephalexin (Keflex) Take antibiotics until course is complete, diarrhea is a potential side effect of antibiotics. Using probiotics or eating foods rich in probiotics (such as yogurt) can help prevent this side effect. Expected course and recovery discussed. Observe condition, call the office if worsening or if new signs or symptoms appear. Ordered: cephalexin, 500 mg = 1 cap(s), Oral, q12hr, # 20 cap(s), Refills(s) 0, Pharmacy: [facility], 165.1, cm, 06/19/24 15:04:00 EDT, Height/Length Dosing, 74, kg, 06/19/24 15:04:00 EDT, Weight Dosing Office Visit No Charge Problem List/Past Medical History Ongoing 37 weeks gestation of ADHD (attention deficit hyperactivity disorder), combined type Encounter for supervision of normal first , third trimester Shortness of breath in pediatric patient Very young maternal age, antepartum Historical Acute gastroenteritis Acute low back pain due to trauma Blurry vision, left eye Chest pain Inspiratory stridor Post-traumatic stress syndrome Strep pharyngitis Viral gastroenteritis Vomiting Medications Inpatient No active inpatient medications Home cephalexin 500 mg Cap, 500 mg= 1 cap(s), Oral, q12hr iron polysaccharide 180 mg (as elemental iron) oral capsule, 180 mg= 1 cap(s), Oral, Daily Multivitamins with Folic Acid 1 mg Tab, 1 tab(s), Oral, Daily Result Comment: Electronical ly Signed By: KAMALA TOUSSAINT, Eduardo Wilson\.berkley\Date and Time Signed: 07/02/24 16:43 EDT ASSISTED DOCUMENTS Observed: 06/19/2024 2:58 PM Status: F Source: [facility] Mcc Documents Mcc Nurse Visit 14 day Health Appraisal Date of Appraisal: _06/19/2024 Booked Date: _06/16/2024 Court or Release Date: RELEASE 07/16/2024 Did inmate come from another facility: NO PCP: NONE Specialist: DR SAMIRA HOLLOWAY Pharmacy: [facility] Have you ever had suicide attempts: YES If yes, when was your last attempt and how: NOV 23, 2023 OVERDOSE Are you currently under the care of a practitioner for any reason: YES If yes, please explain: OBGYN FOR Date Receiving Screen Evaluation Form reviewed: [...] SHE ONLY WENT TO URGENT CARE IN [place]. I EXPLAINED THAT URGENT CARE WOULDN'T ORDER [...] 2024 Month/Year of Last Mammogram:NEVER Previous Gynecological Surgeries/Procedures: NONE Month/Year: Complications: Current Control Use: NONE [...] you wish to attend AA Meetings? NO Mcc Assessment 06/19/24 15:01:00 Mcc Assessment Entered On: 06/19/2024 15:04 EDT Performed [...] for MERS/COVID-19 : N/A Valentine Flores RN 06/19/2024 15:01 EDT Summary Chief Complaint : Health appraisal Preferred Lab : [facility] Preferred Rad : [facility] Height in Inches : 65 in Height/Length Measured : 165.1 cm(Converted to: 5 ft 5 in, 65.00 in) Weight Measured : 74.0 kg(Converted to: 163 lb 2 Ounces, 163.142 lb) Body Mass Index Measured : 27.15 kg/m2 Change in Weight : -11 Weight in Pounds : 163.142 lb Change in Weight (pounds) : -24 Systolic Blood Pressure : 105 mmHg Diastolic Blood Pressure : 65 mmHg Blood Pressure Location : Right arm Blood Pressure Position : Standing O2 Sat Resting/Exertion Alpha : Resting Peripheral Pulse Rate : 74 bpm Respiratory Rate : 16 br/min SpO2 : 100 % Temperature Oral : 36.6 DegC(Converted to: 97.9 DegF) Valentine Flores RN 06/19/2024 15:01 EDT Patient Preferred Method of Communication Phone Call Objective Data and Cognition Screening Cognition: Oriented To : Person, Place, Time Lvl of Consciousness : Alert Cognition: Speech : Normal Cognition: Behavior : Cooperative Cognition: Hallucinations : None Cognition: Mood and Affect : Calm Valentine Flores RN 06/19/2024 15:01 EDT Problem List/Past Medical History Ongoing 37 weeks [...] Viral gastroenteritis Vomiting Procedure/Surgical History None. Medications iron polysaccharide 180 mg (as elemental iron) oral capsule, 180 mg= 1 cap(s), Oral, Daily Multivitamins with Folic Acid 1 mg Tab, 1 tab(s), Oral, Daily Allergies amoxicillin (Unknown) Social History Alcohol - Denies Alcohol Use, 05/18/2018 Employment/School Unemployed, 08/07/2022 Exercise - Occasional exercise, 07/19/2023 Home/Environment Lives with Significant other. Living situation: Home/Independent., 08/07/2022 Nutrition/Health Regular, 08/07/2022 Sexual Straight or heterosexual Sexual orientation:. Sexually active: Yes. Number of current partners 1., 07/19/2023 Substance Abuse - Denies Substance Abuse, 05/18/2018 Marijuana, 06/19/2024 Tobacco - Denies Tobacco Use, 07/29/2018 Never (less than 100 in lifetime) Tobacco Use:. Never Smokeless Tobacco Use:., 01/01/2023 Never (less than 100 in lifetime) Tobacco Use:., 06/20/2018 Family History Family history is negative Immunizations Vaccine Date Status Comments influenza virus vaccine, inactivated - Not Given Patient Refuses diphtheria/pertussis, acel/tetanus adult 08/09/2022 Given Other (see comment) diphtheria/pertussis, acel/tetanus adult 06/08/2021 Given Other (see comment) SARS-CoV-2 (COVID-19) mRNA BNT-162b2 vax 10/28/2020 Recorded 2023-01-01: TPVAL SARS-CoV-2 (COVID-19) mRNA BNT-162b2 vax 10/07/2020 Recorded 2023-01-01: TPVAL diphtheria/pertussis, acel/tetanus adult 09/21/2016 Recorded human papillomavirus vaccine 09/21/2016 Recorded hepatitis A adult vaccine 09/21/2016 Recorded meningococcal conjugate vaccine 09/21/2016 Recorded varicella virus vaccine 06/26/2008 Recorded measles/mumps/rubella virus vaccine 06/26/2008 Recorded poliovirus vaccine, inactivated 06/26/2008 Recorded diphtheria/pertussis, acel/tetanus ped 06/26/2008 Recorded varicella virus vaccine 10/02/2005 Recorded measles/mumps/rubella virus vaccine 10/02/2005 Recorded hepatitis B adult vaccine 10/02/2005 Recorded poliovirus vaccine, inactivated 10/02/2005 Recorded haemophilus b conjugate (HbOC) vaccine 10/02/2005 Recorded diphtheria/pertussis, acel/tetanus ped 10/02/2005 Recorded pneumococcal 13-valent vaccine 2004 Recorded hepatitis B adult vaccine 2004 Recorded poliovirus vaccine, inactivated 2004 Recorded haemophilus b conjugate (HbOC) vaccine 2004 Recorded diphtheria/pertussis, acel/tetanus ped 2004 Recorded pneumococcal 13-valent vaccine 2004 Recorded hepatitis B adult vaccine 2004 Recorded poliovirus vaccine, inactivated 2004 Recorded haemophilus b conjugate (HbOC) vaccine 2004 Recorded diphtheria/pertussis, acel/tetanus ped 2004 Recorded US OB LIMITED 1+ FETUSES Observed: 05/09 9:23 AM Status: F Source: [facility] EPIC Order Comment: US OB TRANSVA GINAL No LMP recorded. EXAM: US OB LIMITED 1+ FETUS ES HISTORY: Dating. COMPARISON: None available. TECHNIQUE: Two-dimensional [...] weeks 5 days. ALISHA is 10/12/2024. Electronically Signed:Electronically signed by RAS MCKINLEY II, MD, PHD at 11-May-2024 10:37:55 PM [facility] CHLAMYDIA/GONOCOCCUS, TIM Collected: 1:26 PM Status: F Source: [facility] TYPE CODE TESTS RESULT OUT OF RANGE REFERENCE UNITS LAB 45150-6(LOINC ) CHLAMYDIA TRACHOMATIS RRNA:PRTHR:PT :XXX:ORD:PROB E.AMP.TAR Negative Unknown Negative LAB 07582-4(LOINC ) NEISSERIA GONORRHOEAE RRNA:PRTHR:PT :XXX:ORD:PROB E.AMP.TAR Negative Unknown Negative Result Comment: Performed at : =[address] [id number] MD Rodriguez Briones Performed By: #### [id number] #### [facility] [address] [place] [address] DISCHARGE INSTRUCTIONS GIVEN WORSENING Observed: 09/12/2023 6:22 PM Status: C Source: [facility] Discharge Instructions Given Worsening The following Patient Education Materials have been given to the patient: ~~ EducationMaterial INPATIENT PATIENT SUMMARY Observed: 08/2023 6:21 PM Status: C Source: [facility] Inpatient Patient Summary [address] [address] Patient Discharge Instructions PERSON INFORMATION Name: JORDIN [...] results: None Follow up: With: Address: When: Magalis Snow [address] [place] [address] [place] [phone] Business (1) Within 6 weeks In the event that this physician does not participate in your insurance network, please consult with your insurance company to find a nearby participating provider. Comment: JAYSON Suárez SHIANNE Steve, have received the attached patient education materials/instructions and have verbalized understanding. Patient Signature Date Clinican/Nurse Signature Date MEDICATION LIST New Medications [facility], [address] [place], [place] [id number], [phone] acetaminophen (acetaminophen 325 mg Tab) 3 Tablets [...] Next Dose: Pharmacy Information: [facility] [place] , [place] [phone] PATIENT EDUCATION INFORMATION Instructions: Care After Vaginal [...] healed. Check for: ? More redness, swelling, or pain. ? Pus or a bad smell. ? You may be given a squirt bottle to use instead of wiping to clean the perineum area after you use the bathroom. Pat the area gently to dry it. ? To relieve pain caused by an episiotomy, a tear, or swollen veins in the anus (hemorrhoids), take a warm sitz bath 2?4 times a day, or as many as told by your health care provider. You can use a bathtub or a basin you put over the toilet as a sitz bath. Breast care ? In the first few days after delivery, your breasts may feel heavy, full, and uncomfortable (breast engorgement). Milk may also leak from your breasts. Ask your health care provider about ways to help relieve the discomfort. ? If you breastfeed: ? Wear a bra that supports your breasts and fits well. Use breast pads to absorb milk that leaks. ? Keep your nipples clean and dry. Apply creams and ointments as told. ? You may have uterine contractions every time you breastfeed for up to several weeks after delivery. This helps your uterus return to its normal size. ? If you have any problems with , tell your health care provider or telesales specialist. ? If you do not breastfeed: ? Avoid touching your breasts. Do not squeeze out (express) milk. Doing this can make your breasts produce more milk. ? Wear a bra that supports your breasts and fits well. Use cold packs to help with swelling. ? Talk to your health care provider about what gzrv-yln-glotpej medicines can help with pain. Intimacy and sexuality ? Ask your health care provider when you can engage in sexual activity. This may depend upon: ? Your risk of infection. ? How fast you are healing. ? Your comfort and desire to engage in sexual activity. ? You are able to get after delivery, even if you have not had your period. Talk with your health care provider about control (contraception) or family planning. Medicines ? Take cxno-bbj-jopsrtt and prescription medicines only as told by your health care provider. ? Take an tswb-wsk-eulfavt stool softener to help ease bowel movements as told by your health care provider. ? If you were prescribed antibiotics, take them as told by your health care provider. Do not stop using the antibiotic even if you start to feel better. ? Review all previous and current prescriptions to check for the possible transfer into your breast milk. Ask your health care provider or telesales specialist for help if needed. Activity ? Gradually return to your normal activities as told by your health care provider. ? Rest as much as possible. Try to nap while your baby is sleeping. Eating and drinking ? Drink enough fluid to keep your urine pale yellow. ? To help prevent or relieve constipation, eat high-fiber foods every day. ? Choose healthy eating to support and healing. ? Take your vitamins until your health care provider tells you to stop. General recommendations ? Do not use any products that contain nicotine or tobacco. These products include cigarettes, chewing tobacco, and vaping devices, such as e-cigarettes. These can delay healing. If you need help quitting, ask your health care provider. ? Secondhand smoke exposure is dangerous for your baby. It can increase the risk of illness and sudden infant syndrome (SIDS). ? Nicotine and other chemicals pass through breast milk to the baby. ? Alcohol use can be dangerous during the period. Drinking alcohol may impair your judgment and ability to safely care for your baby. ? Not drinking alcohol is the safest option for mothers. Alcohol passes through breast milk to the baby. Alcohol can be damaging to your baby's development, growth, and sleep patterns. ? If you breastfeed and drink alcohol, wait at least 2 hours after a single drink before feeding your baby. ? Do not take medicines or drugs that are not prescribed to you, especially if you breastfeed. ? Visit your health care provider for a checkup within the first 3?6 weeks after delivery. ? Complete a comprehensive visit no later than 12 weeks after delivery. ? Keep all follow-up visits. Your health care provider will check your healing after delivery and also check your blood pressure. Where to find more information ? U.S. Department of Health and Human Services Office of Women's Health: womenshealth.gov ? [employer]: acog.org Contact a health care provider if: ? You feel unusually sad or worried. ? Your breasts become red, painful, or hard. ? You have nausea and vomiting and are unable to eat or drink anything for 24 hours. ? You have a fever or other signs of infection. ? You have bleeding that soaks through one pad an hour or you have blood clots the size of an egg or larger. ? You have a severe headache that does not go away or you have a headache with vision changes. Get help right away if: ? You have chest pain or difficulty breathing. ? You have sudden, severe leg pain. ? You faint or have a seizure. ? You have thoughts about hurting yourself or your baby. ? You have any of the following symptoms and you were unable to reach your health care provider: ? A fever or other signs of infection. ? Bleeding that is soaking through one pad an hour or you have blood clots the size of an egg or larger. ? A severe headache that does not go away [...] Go to your nearest emergency room or: ? Call 911. ? Call the National Suicide Prevention Lifeline at or 373. This is open 24 hours a day. ? Text the Crisis Text Line at 777070. Summary ? The period of time after you deliver your up to 6?12 weeks after delivery is called the period. ? If you are , review all previous and current prescriptions to check for possible transfer into breast milk. ? Keep all follow-up visits. Your health care provider will check your healing after delivery and also check your blood pressure. ? Contact a health care provider if you feel unusually sad or worried, or if you experience any other complications during the period. This information is not intended to replace advice given to you by your health care provider. Make sure you discuss any questions you have with your health care provider. Document Revised: 05/10/2022 Document Reviewed: 04/25/2022 [employer] Patient Education ? 2022 [employer]. Anemia Anemia is a condition in which there are not enough red blood cells or hemoglobin in the blood. Hemoglobin is a substance in red blood cells that carries oxygen. When you do not have enough red blood cells or hemoglobin (are anemic), your body cannot get enough oxygen, and your organs may not work properly. As a result, you may feel very tired or have other problems. What are the causes? Common causes of anemia include: ? Excessive bleeding. Anemia can be caused by excessive bleeding inside or outside the body, including bleeding from the intestines or from heavy menstrual periods in females. ? Poor nutrition. ? Long-lasting (chronic) kidney, thyroid, and liver disease. ? Bone marrow disorders, spleen problems, and blood disorders. ? Cancer and treatments for cancer. ? Human immunodeficiency virus (HIV) and acquired immunodeficiency syndrome (AIDS). ? Infections, medicines, and autoimmune disorders that destroy red blood cells. What are the signs or symptoms? Symptoms of this condition include: ? Minor weakness. ? Dizziness. ? Headache, or difficulties concentrating and sleeping. ? Heartbeats that feel irregular or faster than normal (palpitations). ? Shortness of breath, especially with exercise. ? Pale skin, lips, and nails, or cold hands and feet. ? Upset stomach (indigestion) and nausea. Symptoms may [...] of your bleeding. Other tests may include: ? Imaging tests, such as a CT scan or MRI. ? A procedure to see inside your esophagus and stomach (endoscopy). The esophagus is the part of the body that moves food from your mouth to your stomach. ? A procedure to see inside your colon and rectum (colonoscopy). How is this treated? Treatment for this condition depends on the cause. If you continue to lose a lot of blood, you may need to be treated at a hospital. Treatment may include: ? Taking supplements of iron, vitamin B12, or folic acid. ? Taking a hormone medicine (erythropoietin) that can help to stimulate red blood cell growth. ? Receiving donated blood through an IV (blood transfusion). This may be needed if you lose a lot of blood. ? Making changes to your diet. ? Having surgery to remove your spleen. Follow these instructions at home: ? Take jzas-nzk-sevkjwg and prescription medicines only as told by your health care provider. ? Take supplements only as told by your health care provider. ? Follow any diet instructions that you were given by your health care provider. ? Keep all follow-up visits. Your health care provider will want to recheck your blood tests. Contact a health care provider if: ? You develop new bleeding anywhere in the body. ? You are very weak. Get help right away if: ? You are short of breath. ? You have pain in your abdomen or chest. ? You are dizzy or feel faint. ? You have trouble concentrating. ? You have bloody stools, black stools, or tarry stools. ? You vomit repeatedly or you vomit up blood. These symptoms may be an emergency. Get help right away. Call 911. ? Do not wait to see if the symptoms will go away. ? Do not drive yourself to the hospital. Summary ? Anemia is a condition in which you do not have enough red blood cells or enough of a substance in your red blood cells that carries oxygen. ? Symptoms may occur suddenly or develop slowly. ? If your anemia is mild, you may not have symptoms. ? This condition is diagnosed with blood tests, a medical history, and a physical exam. Other tests may be needed. ? Treatment for this condition depends on the cause of the anemia. This information is not intended to replace advice given to you by your health care provider. Make sure you discuss any questions you have with your health care provider. Document Revised: 04/17/2022 Document Reviewed: 04/17/2022 [employer] Patient Education ? 2022 [employer]. Medication Leaflets: You may receive a survey from [employer] asking you to rate your care experience. [...] signed up for this yet, please contact [employer] at [phone] to get signed up today. NGUYEN Award [...] QR code below. Thank you for choosing [facility] INPATIENT CLINICAL SUMMARY Observed: 08/2023 6:21 PM Status: C Source: [facility] Inpatient Clinical Summary [place] [id number] Clinical Summary Person Information Name: JORDIN TYLER [facility] Age: 18 Years : 2005 Sex: Female PCP: NONE, XXXX Marital Status: Single Phone: [phone] Race: White Ethnicity: Non- or Language: [place] Visit Id: Visit Reason: INDUCED Speciality: Acuity: 1 PP Enc Type: Inpatient Med Service: Obstetrics Arrival: 09/10/2023 21:01:27 Discharge: 09/12/2023 18:05:00 Dispo Type: Home (Routine DC) Address: [address] [place] [address] [place] [address] [phone] Provider Notes: Diagnosis: Anemia affecting , antepartum; [...] up: With: Address: When: Magalis Snow [address], [place] [phone] Business (4) Within 6 weeks Patient Education Information: Care After Vaginal Delivery; Anemia GETWELL EDUCATION VIDEO Observed: 2023 11:29 AM Status: F Source: [facility] GetWell Understands Educatio n Yes GetWell Education Video How to Swaddle Safely GetWell Learning Participants Patient GETWELL EDUCATION VIDEO Observed: 2023 11:25 AM Status: F Source: [facility] GetWell Learning Participant s Patient GetWell Understands Education Yes GetWell Education Video Caring for Yourself After Vaginal Delivery GETWELL EDUCATION VIDEO Observed: 2023 11:14 AM Status: F Source: [facility] GetWell Education Video Caring for Your [place]: Sleeping GetWell Learning Participants Patient GetWell Understands Education Yes GETWELL EDUCATION VIDEO Observed: 2023 11:12 AM Status: F Source: [facility] GetWell Understands Educatio n Yes GetWell Education Video Jaundice in Newborns GetWell Learning Participants Patient GETWELL EDUCATION VIDEO Observed: 2023 11:09 AM Status: F Source: [facility] GetWell Education Video Bathing Your Baby GetWell Learning Participants Patient GetWell Understands Education Yes GETWELL EDUCATION VIDEO Observed: 2023 10:23 AM Status: F Source: [facility] GetWell Understands Educatio n Yes GetWell Education Video Caring for Your [place]: Feeding GetWell Learning Participants Patient GETWELL EDUCATION VIDEO Observed: 2023 10:20 AM Status: F Source: [facility] GetWell Education Video Using a Rubber Bulb to Clear a Baby's Nose GetWell Learning Participants Patient GetWell Understands Education Yes GETWELL EDUCATION VIDEO Observed: 2023 10:13 AM Status: F Source: [facility] GetWell Learning Participant s Patient GetWell Education Video Safe Sleep for Babies GetWell Understands Education Yes GETWELL EDUCATION VIDEO Observed: 2023 9:18 AM Status: F Source: [facility] GetWell Education Video Understanding Depression GetWell Understands Education GetWell Learning Participants GETWELL EDUCATION VIDEO Observed: 2023 9:15 AM Status: F Source: [facility] GetWell Learning Participant s Patient GetWell Understands Education Yes GetWell Education Video Ways to Keep Your Baby Safe GETWELL EDUCATION VIDEO Observed: 2023 9:10 AM Status: F Source: [facility] GetWell Learning Participant s Patient GetWell Understands Education Yes GetWell Education Video Car Seat Safety GETWELL EDUCATION VIDEO Observed: 2023 9:06 AM Status: F Source: [facility] GetWell Understands Educatio n Yes GetWell Education Video Avoiding Infections in the Hospital GetWell Learning Participants Patient GETWELL EDUCATION VIDEO Observed: 2023 9:06 AM Status: F Source: [facility] GetWell Understands Educatio n Yes GetWell Education Video How to Prevent Abusive Head Trauma GetWell Learning Participants Patient GETWELL EDUCATION VIDEO Observed: 2023 8:58 AM Status: F Source: [facility] GetWell Understands Educatio n Yes GetWell Education Video Caring for Your [place]: Umbilical Cord GetWell Learning Participants Patient DISCHARGE INSTRUCTIONS GIVEN WORSENING Observed: 09/12/2023 8:48 AM Status: C Source: [facility] Discharge Instructions Given Worsening The following Patient Education Materials have been given to the patient: ~~ EducationMaterial INPATIENT PATIENT SUMMARY Observed: 08/2023 8:48 AM Status: F Source: [facility] Inpatient Patient Summary [address] [address] Patient Discharge Instructions PERSON INFORMATION [...] results: None Follow up: With: Address: When: Magalis Snow [address], [address] [address] Business (1) Within 6 weeks In the event that this physician does not participate in your insurance network, please consult with your insurance company to find a nearby participating provider. Comment: JAYSON Suárez SHIANNE A, have received the attached patient education materials/instructions and have verbalized understanding. Patient Signature Date Clinican/Nurse Signature Date MEDICATION LIST New Medications [facility], [address] [place], [place] [id number], [phone] acetaminophen (acetaminophen 325 mg Tab) 3 Tablets [...] 0. Last Dose: Next Dose: Pharmacy Information: [facility] [phone] PATIENT EDUCATION INFORMATION Instructions: Care After Vaginal [...] healed. Check for: ? More redness, swelling, or pain. ? Pus or a bad smell. ? You may be given a squirt bottle to use instead of wiping to clean the perineum area after you use the bathroom. Pat the area gently to dry it. ? To relieve pain caused by an episiotomy, a tear, or swollen veins in the anus (hemorrhoids), take a warm sitz bath 2?4 times a day, or as many as told by your health care provider. You can use a bathtub or a basin you put over the toilet as a sitz bath. Breast care ? In the first few days after delivery, your breasts may feel heavy, full, and uncomfortable (breast engorgement). Milk may also leak from your breasts. Ask your health care provider about ways to help relieve the discomfort. ? If you breastfeed: ? Wear a bra that supports your breasts and fits well. Use breast pads to absorb milk that leaks. ? Keep your nipples clean and dry. Apply creams and ointments as told. ? You may have uterine contractions every time you breastfeed for up to several weeks after delivery. This helps your uterus return to its normal size. ? If you have any problems with , tell your health care provider or telesales specialist. ? If you do not breastfeed: ? Avoid touching your breasts. Do not squeeze out (express) milk. Doing this can make your breasts produce more milk. ? Wear a bra that supports your breasts and fits well. Use cold packs to help with swelling. ? Talk to your health care provider about what rzut-toz-xlyjbnp medicines can help with pain. Intimacy and sexuality ? Ask your health care provider when you can engage in sexual activity. This may depend upon: ? Your risk of infection. ? How fast you are healing. ? Your comfort and desire to engage in sexual activity. ? You are able to get after delivery, even if you have not had your period. Talk with your health care provider about control (contraception) or family planning. Medicines ? Take wwat-klb-wfuamfd and prescription medicines only as told by your health care provider. ? Take an xabe-quq-hixypsv stool softener to help ease bowel movements as told by your health care provider. ? If you were prescribed antibiotics, take them as told by your health care provider. Do not stop using the antibiotic even if you start to feel better. ? Review all previous and current prescriptions to check for the possible transfer into your breast milk. Ask your health care provider or telesales specialist for help if needed. Activity ? Gradually return to your normal activities as told by your health care provider. ? Rest as much as possible. Try to nap while your baby is sleeping. Eating and drinking ? Drink enough fluid to keep your urine pale yellow. ? To help prevent or relieve constipation, eat high-fiber foods every day. ? Choose healthy eating to support and healing. ? Take your vitamins until your health care provider tells you to stop. General recommendations ? Do not use any products that contain nicotine or tobacco. These products include cigarettes, chewing tobacco, and vaping devices, such as e-cigarettes. These can delay healing. If you need help quitting, ask your health care provider. ? Secondhand smoke exposure is dangerous for your baby. It can increase the risk of illness and sudden syndrome (SIDS). ? Nicotine and other chemicals pass through breast milk to the baby. ? Alcohol use can be dangerous during the period. Drinking alcohol may impair your judgment and ability to safely care for your baby. ? Not drinking alcohol is the safest option for mothers. Alcohol passes through breast milk to the baby. Alcohol can be damaging to your baby's development, growth, and sleep patterns. ? If you breastfeed and drink alcohol, wait at least 2 hours after a single drink before feeding your baby. ? Do not take medicines or drugs that are not prescribed to you, especially if you breastfeed. ? Visit your health care provider for a checkup within the first 3?6 weeks after delivery. ? Complete a comprehensive visit no later than 12 weeks after delivery. ? Keep all follow-up visits. Your health care provider will check your healing after delivery and also check your blood pressure. Where to find more information ? U.S. Department of Health and Human Services Office of Women's Health: womenshealth.gov ? [employer]: acog.org Contact a health care provider if: ? You feel unusually sad or worried. ? Your breasts become red, painful, or hard. ? You have nausea and vomiting and are unable to eat or drink anything for 24 hours. ? You have a fever or other signs of infection. ? You have bleeding that soaks through one pad an hour or you have blood clots the size of an egg or larger. ? You have a severe headache that does not go away or you have a headache with vision changes. Get help right away if: ? You have chest pain or difficulty breathing. ? You have sudden, severe leg pain. ? You faint or have a seizure. ? You have thoughts about hurting yourself or your baby. ? You have any of the following symptoms and you were unable to reach your health care provider: ? A fever or other signs of infection. ? Bleeding that is soaking through one pad an hour or you have blood clots the size of an egg or larger. ? A severe headache that does not go away [...] Go to your nearest emergency room or: ? Call 911. ? Call the National Suicide Prevention Lifeline at or 075. This is open 24 hours a day. ? Text the Crisis Text Line at 723157. Summary ? The period of time after you deliver your up to 6?12 weeks after delivery is called the period. ? If you are , review all previous and current prescriptions to check for possible transfer into breast milk. ? Keep all follow-up visits. Your health care provider will check your healing after delivery and also check your blood pressure. ? Contact a health care provider if you feel unusually sad or worried, or if you experience any other complications during the period. This information is not intended to replace advice given to you by your health care provider. Make sure you discuss any questions you have with your health care provider. Document Revised: 05/10/2022 Document Reviewed: 04/25/2022 [employer] Patient Education ? 2022 [employer]. Anemia Anemia is a condition in which there are not enough red blood cells or hemoglobin in the blood. Hemoglobin is a substance in red blood cells that carries oxygen. When you do not have enough red blood cells or hemoglobin (are anemic), your body cannot get enough oxygen, and your organs may not work properly. As a result, you may feel very tired or have other problems. What are the causes? Common causes of anemia include: ? Excessive bleeding. Anemia can be caused by excessive bleeding inside or outside the body, including bleeding from the intestines or from heavy menstrual periods in females. ? Poor nutrition. ? Long-lasting (chronic) kidney, thyroid, and liver disease. ? Bone marrow disorders, spleen problems, and blood disorders. ? Cancer and treatments for cancer. ? Human immunodeficiency virus (HIV) and acquired immunodeficiency syndrome (AIDS). ? Infections, medicines, and autoimmune disorders that destroy red blood cells. What are the signs or symptoms? Symptoms of this condition include: ? Minor weakness. ? Dizziness. ? Headache, or difficulties concentrating and sleeping. ? Heartbeats that feel irregular or faster than normal (palpitations). ? Shortness of breath, especially with exercise. ? Pale skin, lips, and nails, or cold hands and feet. ? Upset stomach (indigestion) and nausea. Symptoms may [...] of your bleeding. Other tests may include: ? Imaging tests, such as a CT scan or MRI. ? A procedure to see inside your esophagus and stomach (endoscopy). The esophagus is the part of the body that moves food from your mouth to your stomach. ? A procedure to see inside your colon and rectum (colonoscopy). How is this treated? Treatment for this condition depends on the cause. If you continue to lose a lot of blood, you may need to be treated at a hospital. Treatment may include: ? Taking supplements of iron, vitamin B12, or folic acid. ? Taking a hormone medicine (erythropoietin) that can help to stimulate red blood cell growth. ? Receiving donated blood through an IV (blood transfusion). This may be needed if you lose a lot of blood. ? Making changes to your diet. ? Having surgery to remove your spleen. Follow these instructions at home: ? Take tkld-jhe-mxyoyar and prescription medicines only as told by your health care provider. ? Take supplements only as told by your health care provider. ? Follow any diet instructions that you were given by your health care provider. ? Keep all follow-up visits. Your health care provider will want to recheck your blood tests. Contact a health care provider if: ? You develop new bleeding anywhere in the body. ? You are very weak. Get help right away if: ? You are short of breath. ? You have pain in your abdomen or chest. ? You are dizzy or feel faint. ? You have trouble concentrating. ? You have bloody stools, black stools, or tarry stools. ? You vomit repeatedly or you vomit up blood. These symptoms may be an emergency. Get help right away. Call 911. ? Do not wait to see if the symptoms will go away. ? Do not drive yourself to the hospital. Summary ? Anemia is a condition in which you do not have enough red blood cells or enough of a substance in your red blood cells that carries oxygen. ? Symptoms may occur suddenly or develop slowly. ? If your anemia is mild, you may not have symptoms. ? This condition is diagnosed with blood tests, a medical history, and a physical exam. Other tests may be needed. ? Treatment for this condition depends on the cause of the anemia. This information is not intended to replace advice given to you by your health care provider. Make sure you discuss any questions you have with your health care provider. Document Revised: 04/17/2022 Document Reviewed: 04/17/2022 [employer] Patient Education ? 2022 [employer] Medication Leaflets: You may receive a survey from [employer] asking you to rate your care experience. [...] signed up for this yet, please contact [employer] at [phone] to get signed up today. NGUYEN Award [...] QR code below. Thank you for choosing [facility] INPATIENT CLINICAL SUMMARY Observed: 08/2023 8:48 AM Status: F Source: [facility] Inpatient Clinical Summary [address] [address] Clinical Summary Person Information Name: JORDIN TYLER/Ashley Age: 18 Years : 2005 Sex: Female PCP: NONE, XXXX Marital Status: Single Phone: [phone] Race: White Ethnicity: Non- or Language: [place] Visit Id: Visit Reason: INDUCED Speciality: Acuity: 1 PP Enc Type: Inpatient Med Service: Obstetrics Arrival: 09/10/2023 21:01:27 Discharge: Dispo Type: Address: [address] [place] [address] [address] [facility] [id number] Provider Notes: Diagnosis: Anemia affecting , antepartum; [...] Follow up: With: Address: When: Magalis Snow [facility] [address] [address] [facility] (1) Within 6 weeks Patient Education Information: Care After Vaginal Delivery; Anemia DISCHARGE SUMMARY Observed: 09/12/2023 8:41 AM Status: F Source: [facility] Discharge Summary Assessment/Plan Anemia affecting , antepartum (O99.019: [...] Headache, # 90 tab(s), Refills(s) 1, [facility], 165.1, cm, 09/10/23 21:47:00 EDT, Height/Length Dosing, 84.5, kg, 09/10/23 21:47:00 EDT, Weight Dosing docusate, 100 mg = 1 cap(s), Oral, BID, # 30 cap(s), Refills(s) 1, Pharmacy: [facility], 165.1, cm, 09/10/23 21:47:00 EDT, Height/Length Dosing, 84.5, kg, 09/10/23 21:47:00 EDT, Weight Dosing ferrous sulfate, 325 mg = 1 tab(s), Oral, BIDWM, # 60 tab(s), Refills(s) 5, [facility], 165.1, cm, 09/10/23 21:47:00 EDT, [...] comment), # 60 tab(s), Refills(s) 1, Pharmacy: [facility], 165.1, cm, 09/10/23 21:47:00 EDT, [...] 2 to 3 cm dilated, 50% effaced - 3 station and category 1 heart tone. Patient [...] 14 ounces, 3124 g with Apgars of 9/9 over intact perineum. 3 vessels umbilical cord and intact placenta was delivered spontaneously. EBL 350 mL. Patient recovering and stable condition in without any complication. This morning patient reports lochia is decreasing. Patient admits to cramping which is controlled with pain medication. Tolerating regular diet and ambulation without difficulty. Voiding [...] Details Baby A Delivery Type:Vaginal D-EGA at Cgyfupxs85 weeks 5 days Total Length of Labor:259 [...] Snow DO Attending Physician: Magalis Snow DO Information Risk Factors: None Complications: Other: NCx1 Nuchal Cord Times: 1 Umbilical Cord Description: 3 vessel cord Data Gender: Female ID Band Number: [id number] Outcome: Live Score 1 Minute: 9 Score 5 Minute: 9 Rescue Instructor: John Paul YAÑEZ MD OB History History (0,0,0,2) # 1 Baby [...] Viral gastroenteritis Vomiting Procedure/Surgical History None. Medications acetaminophen 325 mg Tab, 975 mg= 3 tab(s), Oral, q8hr, PRN acetaminophen 325 mg Tab, 975 mg= 3 tab(s), Oral, q8hr, PRN, 1 refills acetaminophen-codeine 300 mg-30 mg Tab, 1 tab(s), Oral, q6hr, PRN acetaminophen-codeine 300 mg-30 mg Tab, 2 tab(s), Oral, q6hr, PRN benzocaine-menthol 20%-0.5% topical spray, 1 spray(s), Topical, q4hr, PRN calcium carbonate 500 mg Chew Tab, 500 mg= 1 tab(s), Oral, q6hr, PRN Dilaudid 2 mg Tab, 2 mg= 1 tab(s), Oral, Once, PRN docusate sodium 100 mg Cap, 100 mg= 1 cap(s), Oral, BID docusate sodium 100 mg Cap, 100 mg= 1 cap(s), Oral, BID, 1 refills ferrous sulfate 325 mg Tab, 325 mg= 1 tab(s), Oral, BIDWM ferrous sulfate 325 mg Tab, 325 mg= 1 tab(s), Oral, BIDWM, 5 refills hydrocortisone 2.5% Rectal Crm w/Appl, 1 maryjo, Rectal, QID, PRN hydrocortisone 25 mg Supp, 25 mg= 1 supp, Rectal, BID, PRN ibuprofen 600 mg Tab, 600 mg= 1 tab(s), Oral, q6hr, PRN ibuprofen 600 mg Tab, 600 mg= 1 tab(s), Oral, q6hr, PRN, 1 refills Lanolin, 1 maryjo, Topical, q2hr, PRN Multivitamins with Folic Acid 1 mg Tab, 1 tab(s), Oral, Daily Multivitamins with Folic Acid 1 mg Tab, 1 tab(s), Oral, Daily simethicone 80 mg Chew Tab, 80 mg= 1 tab(s), Oral, QID, PRN witch cayden rectal 50% pad, 1 maryjo, Topical, q4hr, PRN Zofran ODT 4 mg Tab-Dis, 4 mg= 1 tab(s), Oral, TID, Not taking zolpidem 5 mg Tab, 5 mg= 1 tab(s), Oral, Bedtime, PRN Allergies No Known Allergies Social History Alcohol - Denies Alcohol Use, 05/18/2018 Employment/School Unemployed, 08/07/2022 Exercise - Occasional exercise, 07/19/2023 Home/Environment Lives with Significant other. Living situation: Home/Independent., 08/07/2022 Nutrition/Health Regular, 08/07/2022 Sexual Straight or heterosexual Sexual orientation:. Sexually active: Yes. Number of current partners 1., 07/19/2023 Substance Abuse - Denies Substance Abuse, 05/18/2018 Tobacco - Denies Tobacco Use, 07/29/2018 Never (less than 100 in lifetime) Tobacco Use:. Never Smokeless Tobacco Use:., 01/01/2023 Never (less than 100 in lifetime) Tobacco Use:., 06/20/2018 Family History Family history is negative Immunizations Vaccine Date Status Comments influenza virus vaccine, inactivated - Not Given Patient Refuses diphtheria/pertussis, acel/tetanus adult 08/09/2022 Given Other (see comment) diphtheria/pertussis, acel/tetanus adult 06/08/2021 Given Other (see comment) SARS-CoV-2 (COVID-19) mRNA BNT-162b2 vax 10/28/2020 Recorded 2023-01-01: TPVAL SARS-CoV-2 (COVID-19) mRNA BNT-162b2 vax 10/07/2020 Recorded 2023-01-01: TPVAL diphtheria/pertussis, acel/tetanus adult 09/21/2016 Recorded human papillomavirus vaccine 09/21/2016 Recorded hepatitis A adult vaccine 09/21/2016 Recorded meningococcal conjugate vaccine 09/21/2016 Recorded varicella virus vaccine 06/26/2008 Recorded measles/mumps/rubella virus vaccine 06/26/2008 Recorded poliovirus vaccine, inactivated 06/26/2008 Recorded diphtheria/pertussis, acel/tetanus ped 06/26/2008 Recorded varicella virus vaccine 10/02/2005 Recorded measles/mumps/rubella virus vaccine 10/02/2005 Recorded hepatitis B adult vaccine 10/02/2005 Recorded poliovirus vaccine, inactivated 10/02/2005 Recorded haemophilus b conjugate (HbOC) vaccine 10/02/2005 Recorded diphtheria/pertussis, acel/tetanus ped 10/02/2005 Recorded pneumococcal 13-valent vaccine 2004 Recorded hepatitis B adult vaccine 2004 Recorded poliovirus vaccine, inactivated 2004 Recorded haemophilus b conjugate (HbOC) vaccine 2004 Recorded diphtheria/pertussis, acel/tetanus ped 2004 Recorded pneumococcal 13-valent vaccine 2004 Recorded hepatitis B adult vaccine 2004 Recorded poliovirus vaccine, inactivated 2004 Recorded haemophilus b conjugate (HbOC) vaccine 2004 Recorded diphtheria/pertussis, acel/tetanus ped 2004 Recorded Result Comment: Electronical ly Signed By: Magalis Snow DO.br\Date and Time Signed: 09/12/23 08:47 EDT CBC W/INDICES Collected: 09/12/2023 6:31 AM Status: F Source: [facility] TYPE CODE TESTS RESULT OUT OF RANGE REFERENCE UNITS LAB 11579-5(LOINC) LEUKOCYTES^^RUBEN ECTED FOR NUCLEATED ERYTHROCYTES:NCN C:PT:BLD:QN:AUTO MATED COUNT 10.0 Normal 4.0-11.0 E9/L LAB 789-8(LOINC) ERYTHROCYTES:NCN C:PT:BLD:QN:AUTO MATED COUNT 3.5 Low 4.3-5.9 E12/L LAB 718-7(LOINC) HEMOGLOBIN:MCNC: PT:BLD:QN: 7.6 Low 12.0-16.0 gm/dL LAB 4544-3(LOINC) HEMATOCRIT:VFR:P T:BLD:QN:AUTOMAT ED COUNT 23.6 Low 34.0-46.0 % LAB 788-0(LOINC) ERYTHROCYTE DISTRIBUTION WIDTH:RATIO:PT:R BC:QN:AUTOMATED COUNT 16.6 High 10.9-14.2 % LAB 785-6(LOINC) ERYTHROCYTE MEAN CORPUSCULAR HEMOGLOBIN:ENTMA SS:PT:RBC:QN:AUT OMATED COUNT 21.8 Low 27.0-34.0 pg LAB 786-4(LOINC) ERYTHROCYTE MEAN CORPUSCULAR HEMOGLOBIN CONCENTRATION:MC NC:PT:RBC:QN:AUT OMATED COUNT 32.3 Normal 31.4-36.0 gm/dL LAB 787-2(INC) ERYTHROCYTE MEAN CORPUSCULAR VOLUME:ENTVOL:PT :RBC:QN:AUTOMATE D COUNT 67.6 Low 80.0-100.0 fL LAB 24136-6(INC) PLATELET MEAN VOLUME:ENTVOL:PT :BLD:QN:AUTOMATE D COUNT 9.2 Normal 6.4-10.8 fL LAB [id number](INC ) Platelet 202.0 Normal 150.0-500.0 E9/L LAB 16610-4(INC) ERYTHROCYTE SIZE:MORPH:PT:BL D:NOM: NORMAL Unknown LAB 43984-9([facility]) HYPOCHROMIA:PRTH R:PT:BLD:ORD:AUT OMATED COUNT PRESENT Unknown LAB 45383-9([facility]) POLYCHROMASIA:AZ THR:PT:BLD:ORD:M ICROSCOPY.LIGHT PRESENT Unknown LAB 703-9([facility]) BASOPHILIC STIPPLING:PRTHR: PT:BLD:ORD:MICRO SCOPY.LIGHT PRESENT Unknown LAB 07492-1([facility]) MICROCYTES:PRTHR :PT:BLD:ORD:AUTO MATED COUNT PRESENT Unknown LAB 17995-1([facility]) PLATELETS.LARGE: PRTHR:PT:BLD:ORD :MICROSCOPY.LIGH T PRESENT Unknown Performed By: #### [id number] # ### [facility] [address] [place] [address] PATH. REVIEW Collected: 6:31 AM Status: F Source: [facility] TYPE CODE TESTS RESULT OUT OF RANGE REFERENCE UNITS LAB [id number]([facility]) Path Review Hypochromic microcytic anemia with anisocytosis rule out iron deficiency Unknown Performed By: #### [id number] #### [facility] [address] [place] [address] DISCHARGE INSTRUCTIONS GIVEN WORSENING Observed: 09/11/2023 6:38 PM Status: C Source: [facility] Discharge Instructions Given Worsening The following Patient Education Materials have been given to the patient: ~~ EducationMaterial PROGRESS NOTE-PHYSICIAN Observed: 2023 7:09 AM Status: F Source: [facility] Progress Note-Physician Patient: JORDIN TYLER Age: 18 years Sex: Female : 2005 Associated Diagnoses: None Author: Ra Casas Jr., DO Postoperative Information Postoperative disposition: Postoperative disposition: Day 2. Optimetrix number: Optimetrix number [id number]. Anesthetic utilized: Regional: Epidural. Physical Examination Hemodynamically stable. Pain Assessment: Controlled. General: Awake, Alert, Appropriate. Respiratory: Adequate air exchange. Cardiovascular: Stable. Neurological: Normal sensory function. Assessment Anesthetic outcome No post-epidural complications noted.. Review / Management Condition: Stable. Plan Transfer/Discharge: Stable for discharge from anesthetic standpoint.. Result Comment: Electronical ly Signed By: Ra Casas Jr., DO\.br\Date and Time Signed: 09/11/23 07:10 EDT SURGICAL PATHOLOGY REPORT Observed: 07/2023 5:58 AM Status: F Source: [address] [place] [address]- Surgical Pathology Report Collected Date/Time: 09/11/2023 05:58 [...] is scattered throughout the entire placental tissue. Ambulatory Technologist portion is submitted in four cassettes: 1 - Cord and membrane 2-4 - Ambulatory Technologist sections of placenta parenchyma (DC) DC:MCA Microscopic Description Microscopic examination performed unless gross only specified. Performed By: #### [id number] # ### [facility] [address] [place] [address] DELIVERY SUMMARY Observed: 09/11/2023 5:40 AM Status: F Source: [facility] Delivery Summary Delivery Normal spontaneous vaginal delivery [...] Time:09/11/2023 00:55 EDT Membrane Status:Ruptured Amniotic Fluid Color/Description:Clear Medications Given D5LR 1000 mL Soln-IV 1,000 mL, 1000 mL, IV Epidural Bag Ropivacaine Fentanyl 200 mL, 200 mL, Epidural Lactated Ringers IV Chelo 1000 mL 1,000 mL, 1000 mL, IV oxytocin additive 30 unit(s) + Dextrose 5% in Lactated Ringers Premix 500 mL, IV Betadine Topical Solution 10%, 1 maryjo, Topical epinephrine-lidocaine 1:200,000-1.5% preservative-free injectable solution, 150 mg, Epidural fentanyl 50 mcg/mL injectable solution, 100 mcg, Epidural [id number] [F], 50 mcg, Oral ropivacaine 0.2% injectable solution 10 mL, 18 mg, Epidural Result Comment: Electronical ly Signed By: Magalis Snow DO.berkley\Date and Time Signed: 09/11/23 05:43 EDT PROGRESS NOTE-PHYSICIAN Observed: 2023 1:52 AM Status: F Source: [facility] Progress Note-Physician Patient: JORDIN TYLER Age: 18 years Sex: Female : 2005 Associated Diagnoses: None Author: Ra Casas Jr., DO Chief Complaint Intrauterine Health Status Allergies: Allergic Reactions (All) No Known Allergies Canceled/Inactive Reactions (All) No Known Medication Allergies Current medications.Problem list: All Problems 37 weeks gestation of / SNOMED CT 88603478 / Confirmed ADHD (attention deficit hyperactivity disorder), combined type / SNOMED CT 71628497 / Confirmed Age mother conceived under 17 / Patient Care / Confirmed Encounter for supervision of normal first , third trimester / SNOMED CT 685736067 / Confirmed Infection / SNOMED CT 81387384 / Confirmed / SNOMED CT 582638285 / Confirmed Shortness of breath in pediatric patient / SNOMED CT 795963512 / Confirmed Very young maternal age, antepartum / SNOMED CT 130665750 / Confirmed Resolved: Acute gastroenteritis / SNOMED CT 744054550 resolved per patient Resolved: Acute low back pain due to trauma / SNOMED CT 803087150 resolved per patient Resolved: Blurry vision, left eye / SNOMED CT 868158447 resolved per patient Resolved: Chest pain / SNOMED CT 41500519 resolved per patient Resolved: Inspiratory stridor / SNOMED CT 952149763 Resolved: Post-traumatic stress syndrome / SNOMED CT 94123352 resolved per patient. Resolved: / SNOMED CT 621413324 Resolved: / SNOMED CT 645555343 Resolved: Strep pharyngitis / SNOMED CT 22849132 Resolved: Viral gastroenteritis / SNOMED CT 787993710 Resolved: Vomiting / SNOMED CT 0845151092 Canceled: None / SNOMED CT 659510934 Review of Systems Respiratory: Negative. Cardiovascular: Negative. [...] 30 minutes. The PCEA was started at 0145. Result Comment: Electronical ly Signed By: Ra Casas Jr., DO.berkley\Date and Time Signed: 09/11/23 07:09 EDT HISTORY AND PHYSICAL Observed: 1:26 AM Status: F Source: [facility] History and Physical Reason for Visit OB Induction [...] HT: 165.1 cm WT: 84.5 kg WT: 84.5 kg Alert and Oriented x3 CV RRR Lungs [...] MethodExternal toco Cervical Cervix Dilation4.5 cm Cervix [id number] Station Calculation-3 LMP/EGA/ALISHA Gestational Age (EGA) and [...] gastroenteritis Vomiting Procedure/Surgical History None. Medications Inpatient D5LR 1000 mL Soln-IV 1,000 mL, 1000 mL, IV diphenhydrAMINE 50 mg/mL Inj, 25 mg= 0.5 mL, IV Push, q4hr, PRN ePHEDrine 50 mg/mL Inj, 10 mg= 0.2 mL, IV Push, Once, PRN Epidural Bag Ropivacaine Fentanyl 200 mL, 200 mL, Epidural epinephrine-lidocaine 1:200,000-1.5% preservative-free injectable solution, 150 mg= 10 mL, Epidural, Once, PRN fentanyl 50 mcg/mL injectable solution, 100 mcg= 2 mL, Epidural, Once, PRN Lactated Ringers IV Chelo 1000 mL 1,000 mL, 1000 mL, IV Lactated Ringers IV Chelo 1000 mL 1,000 mL, 1000 mL, IV naloxone 1 mg/mL Soln, 2 mg= 2 mL, IV Push, Once, PRN ondansetron 4 mg/2 mL Inj, 4 mg= 2 mL, IV Push, q4hr, PRN ropivacaine 0.2% injectable solution 10 mL, 18 mg= 9 mL, Epidural, Once, PRN Zofran 4 mg/2 mL Injection, 4 mg= 2 mL, IV Push, q4hr, PRN Home Multivitamins with Folic Acid 1 mg Tab, 1 tab(s), Oral, Daily Zofran ODT 4 mg Tab-Dis, 4 mg= 1 tab(s), Oral, TID, Not taking Allergies No Known Allergies Social History Alcohol - Denies Alcohol Use, 05/18/2018 Employment/School Unemployed, 08/07/2022 Exercise - Occasional exercise, 07/19/2023 Home/Environment Lives with Significant other. Living situation: Home/Independent., 08/07/2022 Nutrition/Health Regular, 08/07/2022 Sexual Straight or heterosexual Sexual orientation:. Sexually active: Yes. Number of current partners 1., 07/19/2023 Substance Abuse - Denies Substance Abuse, 05/18/2018 Tobacco - Denies Tobacco Use, 07/29/2018 Never (less than 100 in lifetime) Tobacco Use:. Never Smokeless Tobacco Use:., 01/01/2023 Never (less than 100 in lifetime) Tobacco Use:., 06/20/2018 Family History Family history is negative Result Comment: Electronical ly Signed By: Magalis Snow DO\Date and Time Signed: 09/11/23 01:31 EDT CBC W/INDICES Collected: 09/10/2023 9:43 PM Status: F Source: [facility] TYPE CODE TESTS RESULT OUT OF RANGE REFERENCE UNITS LAB 00347-3([facility]) LEUKOCYTES^^RUBEN ECTED FOR NUCLEATED ERYTHROCYTES:NCN C:PT:BLD:QN:AUTO MATED COUNT 8.9 Normal 4.0-11.0 E9/L LAB 789-8(LOINC) ERYTHROCYTES:NCN C:PT:BLD:QN:AUTO MATED COUNT 3.6 Low 4.3-5.9 E12/L LAB 718-7(LOINC) HEMOGLOBIN:MCNC: PT:BLD:QN: 7.7 Low 12.0-16.0 gm/dL LAB 4544-3(LOINC) HEMATOCRIT:VFR:P T:BLD:QN:AUTOMAT ED COUNT 24.1 Low 34.0-46.0 % LAB 788-0(LOINC) ERYTHROCYTE DISTRIBUTION WIDTH:RATIO:PT:R BC:QN:AUTOMATED COUNT 17.0 High 10.9-14.2 % LAB 785-6(LOINC) ERYTHROCYTE MEAN CORPUSCULAR HEMOGLOBIN:ENTMA SS:PT:RBC:QN:AUT OMATED COUNT 21.4 Low 27.0-34.0 pg LAB 786-4(LOINC) ERYTHROCYTE MEAN CORPUSCULAR HEMOGLOBIN CONCENTRATION:MC NC:PT:RBC:QN:AUT OMATED COUNT 31.8 Normal 31.4-36.0 gm/dL LAB 787-2(LOINC) ERYTHROCYTE MEAN CORPUSCULAR VOLUME:ENTVOL:PT :RBC:QN:AUTOMATE D COUNT 67.4 Low 80.0-100.0 fL LAB 12128-7([facility]) PLATELET MEAN VOLUME:ENTVOL:PT :BLD:QN:AUTOMATE D COUNT 8.8 Normal 6.4-10.8 fL LAB 777-3([facility]) PLATELETS:NCNC:P T:BLD:QN:AUTOMAT ED COUNT 209.0 Normal 150.0-500.0 E9/L LAB 06446-9([facility]) ERYTHROCYTE SIZE:MORPH:PT:BL D:NOM: NORMAL Unknown LAB 22278-7([facility]) HYPOCHROMIA:PRTH R:PT:BLD:ORD:AUT OMATED COUNT PRESENT Unknown LAB 58072-5([facility]) MICROCYTES:PRTHR :PT:BLD:ORD:AUTO MATED COUNT PRESENT Unknown Performed By: #### [id number] # ### [facility] [address] [place] [address] ABO/RH Collected: 9:43 PM Status: F Source: [facility] TYPE CODE TESTS RESULT OUT OF RANGE REFERENCE UNITS LAB 06721351([facility]) ABO/Rh A POS Unknown Performed By: #### [id number] # ### [facility] [address] [place] [address] ABSC Collected: 09/10/2023 9:43 PM Status: F Source: [facility] TYPE CODE TESTS RESULT OUT OF RANGE REFERENCE UNITS LAB 44385864([facility]) ABSC Gel Interp Negative Normal Performed By: #### [id number] #### [facility] [address] [place] [address] ABO/RH HISTORY CHECK Collected: 09/10/2023 9:43 PM S tatus: F Source: [facility] TYPE CODE TESTS RESULT OUT OF RANGE REFERENCE UNITS LAB 90009146([facility]) ABO/Rh History Check Verified Hx Blood Type Normal Performed By: #### [id number] #### [facility] [address] [place] [address] BLOOD BANK ID# Collected: 9:43 PM Status: F Source: [facility] TYPE CODE TESTS RESULT OUT OF RANGE REFERENCE UNITS LAB 11472559([facility]) BBID# [id number] Unknown Performed By: #### [id number] #### [facility] [address] [place] [address] GROUP B STREP BY PCR Collected: 09/05/2023 12:00 PM Status: F Source: [facility] TYPE CODE TESTS RESULT OUT OF RANGE REFERENCE UNITS LAB CD:[id number](LO INC) Group B Strep colonization by PCR NEGATIVE Normal Negative Performed By: #### [id number] #### [facility] [address] [place] [address] DISCHARGE INSTRUCTIONS GIVEN WORSENING Observed: 08/29/2023 5:00 PM Status: C Source: [facility] Discharge Instructions Given Worsening The following Patient Education Materials have been given to the patient: ~~ EducationMaterial INPATIENT PATIENT SUMMARY Observed: 08/06 4:59 PM Status: C Source: [facility] Inpatient Patient Summary [address] [address] Patient Discharge Instructions PERSON INFORMATION Name: JORDIN TYLER Date of : 2005 Current Date: 08/29/2023 16:59:59 PHYSICIANS Admitting Physician: Ras Miller MD Primary Care Physician: NONE, XXXX PCP Phone [...] Follow up: With: Address: When: Magalis Snow [facility] Lucas Lawrence, [address] [address] Business (1) 09/05/2023 1:00 PM Comments: Call for any problems. In the event that this physician does not participate in your insurance network, please consult with your insurance company to find a nearby participating provider. Comment: JAYSON Suárez SHIANNE A, have received the attached patient education materials/instructions and have verbalized understanding. Patient Signature Date [...] Dose: Pharmacy Information: PATIENT EDUCATION INFORMATION Instructions: Dehydration, Adult Dehydration is condition in which [...] This condition may be caused by: ? Conditions that cause loss of water or other fluids, such as: ? Watery poop (diarrhea). ? Vomiting. ? Sweating a lot. ? Peeing (urinating) a lot. ? Not drinking enough fluids, especially when you: ? Are ill. ? Are doing things that take a lot of energy to do. ? Other illnesses and conditions, such as fever or infection. ? Certain medicines, such as medicines that take extra fluid out of the body (diuretics). ? Lack of safe drinking water. ? Not being able to get enough water and food. What increases the risk? The following factors may make you more likely to develop this condition: ? Having a long-term (chronic) illness that has not been treated the right way, such as: ? Diabetes. ? Heart disease. ? Kidney disease. ? Being 65 years of age or older. ? Having a disability. ? Living in a place that is high above the ground or sea (high in altitude). The thinner, dried air causes more fluid loss. ? Doing exercises that put stress on your body for a long time. What are the signs or symptoms? Symptoms of dehydration depend on how bad it is. Mild or worse dehydration ? Thirst. ? Dry lips or dry mouth. ? Feeling dizzy or light-headed, especially when you stand up from sitting. ? Muscle cramps. ? Your body making: ? Dark pee (urine). Pee may be the color of tea. ? Less pee than normal. ? Less tears than normal. ? Headache. Very bad dehydration ? Changes in skin. Skin may: ? Be cold to the touch (clammy). ? Be blotchy or pale. ? Not go back to normal right after you lightly pinch it and let it go. ? Little or no tears, pee, or sweat. ? Changes in vital signs, such as: ? Fast breathing. ? Low blood pressure. ? Weak pulse. ? Pulse that is more than 100 beats a minute when you are sitting still. ? Other changes, such as: ? Feeling very thirsty. ? Eyes that look hollow (sunken). ? Cold hands and feet. ? Being mixed up (confused). ? Being very tired (lethargic) or having trouble waking from sleep. ? Short-term weight loss. ? Loss of consciousness. How is this treated? Treatment for this condition depends on how bad it is. Treatment should start right away. Do not wait until your condition gets very bad. Very bad dehydration is an emergency. You will need to go to a hospital. ? Mild or worse dehydration can be treated at home. You may be asked to: ? Drink more fluids. ? Drink an oral rehydration solution (ORS). This drink helps get the right amounts of fluids and salts and minerals in the blood (electrolytes). ? Very bad dehydration can be treated: ? With fluids through an IV tube. ? By getting normal levels of salts and minerals in your blood. This is often done by giving salts and minerals through a tube. The tube is passed through your nose and into your stomach. ? By treating the root cause. Follow these instructions at home: Oral rehydration solution If told by your doctor, drink an ORS: ? Make an ORS. Use instructions on the package. ? Start by drinking small amounts, about ? cup (120 mL) every 5?10 minutes. ? Slowly drink more until you have had the amount that your doctor said to have. Eating and drinking ? Drink enough clear fluid to keep your pee pale yellow. If you were told to drink an ORS, finish the ORS first. Then, start slowly drinking other clear fluids. Drink fluids such as: ? Water. Do not drink only water. Doing that can make the salt (sodium) level in your body get too low. ? Water from ice chips you suck on. ? Fruit juice that you have added water to (diluted). ? Low-calorie sports drinks. ? Eat foods that have the right amounts of salts and minerals, such as: ? Bananas. ? Oranges. ? Potatoes. ? Tomatoes. ? Spinach. ? Do not drink alcohol. ? Avoid: ? Drinks that have a lot of sugar. These include: ? High-calorie sports drinks. ? Fruit juice that you did not add water to. ? Soda. ? Caffeine. ? Foods that are greasy or have a lot of fat or sugar. General instructions ? Take tnbm-ubr-bvuhuwa and prescription medicines only as told by your doctor. ? Do not take salt tablets. Doing that can make the salt level in your body get too high. ? Return to your normal activities as told by your doctor. Ask your doctor what activities are safe for you. ? Keep all follow-up visits as told by your doctor. This is important. Contact a doctor if: ? You have pain in your belly (abdomen) and the pain: ? Gets worse. ? Stays in one place. ? You have a rash. ? You have a stiff neck. ? You get angry or annoyed (irritable) more easily than normal. ? You are more tired or have a harder time waking than normal. ? You feel: ? Weak or dizzy. ? Very thirsty. Get help right away if you have: ? Any symptoms of very bad dehydration. ? Symptoms of vomiting, such as: ? You cannot eat or drink without vomiting. ? Your vomiting gets worse or does not go away. ? Your vomit has blood or green stuff in it. ? Symptoms that get worse with treatment. ? A fever. ? A very bad headache. ? Problems with peeing or pooping (having a bowel movement), such as: ? Watery poop that gets worse or does not go away. ? Blood in your poop (stool). This may cause poop to look black and tarry. ? Not peeing in 6?8 hours. ? Peeing only a small amount of very dark pee in 6?8 hours. ? Trouble breathing. These symptoms may be an emergency. Do not wait to see if the symptoms will go away. Get medical help right away. Call your local emergency services (911 in the [place] Do not drive yourself to the hospital. Summary ? Dehydration is a condition in which there is not enough water or other fluids in the body. This happens when a person loses more fluids than he or she takes in. ? Treatment for this condition depends on how bad it is. Treatment should be started right away. Do not wait until your condition gets very bad. ? Drink enough clear fluid to keep your pee pale yellow. If you were told to drink an oral rehydration solution (ORS), finish the ORS first. Then, start slowly drinking other clear fluids. ? Take jtii-wom-lihhvii and prescription medicines only as told by your doctor. ? Get help right away if you have any symptoms of very bad dehydration. This information is not intended to replace advice given to you by your health care provider. Make sure you discuss any questions you have with your health care provider. Document Revised: 05/31/2022 Document Reviewed: 09/04/2019 [employer] Patient Education ? 2022 [employer] Medication Leaflets: You may receive a survey from [employer] asking you to rate your care experience. [...] signed up for this yet, please contact Health Information Management at [phone] to get signed up today. NGUYEN Award [...] QR code below. Thank you for choosing [facility] INPATIENT CLINICAL SUMMARY Observed: 4:59 PM Status: C Source: [facility] Inpatient Clinical Summary [address] [address] Clinical Summary Person Information Name: JORDIN TYLER [facility] Age: 18 Years : 2005 Sex: Female PCP: NONE, XXXX Marital Status: Single Phone: [phone] Race: White Ethnicity: Non- or Language: [place] Visit Id: Visit Reason: Speciality: Acuity: Enc Type: OB Triage Med Service: Obstetrics Arrival: 08/29/2023 14:41:08 Discharge: 08/29/2023 16:25:00 Dispo Type: Home (Routine DC) Address: [address] [place] [address] [place] [address] [phone] Provider Notes: Diagnosis: Problems Active (12/20/2022) 37 [...] This Visit (last charted value for your 08/29/2023 visit) Urinalysis 08/29/2023 2:55 PM UA Bili: Negative mg/dL UA Color: Yellow UA Glucose: Negative mg/dL UA Ketones: Negative mg/dL UA Leuk Est: 500 Jeremias/uL Jeremias/uL UA Mucous: Trace graded/LPF UA Nitrite: Negative mg/dL UA Protein: 1+ mg/dL UA RBC: 0-3 graded/HPF UA Squam Epithelial: >10 graded/HPF UA Urobilinogen: 2 mg/dL mg/dL UA WBC: 16-25 graded/HPF UA Spec Desc: Clean Catch UA Blood: Negative mg/dL UA Clarity: Turbid UA pH: 7.0 -- Normal range between ( 5.0 and 9.0 ) UA Spec Grav: 1.028 -- Normal range between ( 1.005 and 1.030 ) Measurements: Height: 165 cm Weight: 80 kg Blood Pressure: 127 mmHg / 74 mmHg BMI: 29.38 kg/m2 Procedures No Procedures Documented Immunizations No Immunizations Documented This Visit Final Med List: multivitamin, ( Multivitamins with Folic Acid 1 mg Tab) 1 Tablets By Mouth every day. Refills: 0. ondansetron (Zofran ODT 4 mg Tab-Dis) 1 Tablets By Mouth 3 times a day. Refills: 0. Care Team Members: Attending Physician: Ras Miller MD Consulting Physician: Referring Physician: Follow up: With: Address: When: Magalis Lucas Garcia, [place] [id number] [facility] (1) 09/05/2023 1:00 PM Comments: Call for any problems. Patient Education Information: Dehydration, Adult, Ahfu-ks-Lpnz UA WITH CULT RFLX Collected: 2:55 PM Status: F Source: [facility] TYPE CODE TESTS RESULT OUT OF RANGE REFERENCE UNITS LAB 9194-2([facility]) CLASS:TYPE:PT: URINE COLLECTION METHOD:NOM:* Clean Catch Normal LAB 81300-9([facility]) COLOR:TYPE:PT: URINE:NOM:AUTO Yellow Normal Yellow Result Comment: Microscopic readings are only performed on those samples that meet specific criteria set forth by [facility]. LAB 85057-8([facility]) CLARITY:TYPE:P T:URINE:NOM: Turbid Abnormal Clear LAB 5811-5([facility]) SPECIFIC GRAVITY:RDEN:P T:URINE:SEMIQN :TEST STRIP 1.028 Unknown 1.005-1.030 LAB 5803-2([facility]) PH:LSCNC:PT:UR INE:SEMIQN:YAKELIN T STRIP 7.0 Unknown 5.0-9.0 LAB 26681-3([facility]) PROTEIN:PRTHR: PT:URINE:ORD:T EST STRIP 1+ Abnormal Negative mg/dL LAB 07953-7([facility]) GLUCOSE:PRTHR: PT:URINE:ORD:T EST STRIP Negative Normal Negative mg/dL LAB 70300-5([facility]) KETONES:PRTHR: PT:URINE:ORD:T EST STRIP.AUTOMATE D Negative Normal Negative mg/dL LAB 01757-9([facility]) BILIRUBIN:PRTH R:PT:URINE:ORD :TEST STRIP.AUTOMATE D Negative Normal Negative mg/dL LAB 34760-4([facility]) HEMOGLOBIN:MCN C:PT:URINE:ADAM IQN:TEST STRIP.AUTOMATE D Negative Normal Negative mg/dL LAB 23318-8([facility]) NITRITE:PRTHR: PT:URINE:ORD:T EST STRIP.AUTOMATE D Negative Normal Negative mg/dL LAB 51065-9([facility]) UROBILINOGEN:M CNC:PT:URINE:S EMIQN:TEST STRIP 2 mg/dL Abnormal Negative mg/dL LAB 33915-4([facility]) LEUKOCYTE ESTERASE:PRTHR :PT:URINE:ORD: TEST STRIP.AUTOMATE D 500 Jeremias/uL Abnormal Negative CD:56298 80254 LAB 70104-1([facility]) LEUKOCYTES:FEDE IC:PT:URINE SED:QN:AUTOMAT ED COUNT 16-25 Abnormal 0-5 CD:20387 35636 LAB 29413-2([facility]) ERYTHROCYTES:P RTHR:PT:URINE SED:ORD:MICROS COPY.LIGHT 0-3 Normal 0-3 CD:37152 89236 LAB 59969-2(LOINC) EPITHELIAL CELLS.SQUAMOUS :NARIC:PT:URIN E SED:QN:AUTOMAT ED COUNT >10 Unknown CD:17142 22878 LAB 80631-2(LOINC) MUCUS:PRTHR:PT :URINE:ORD:AUT OMATED Trace Normal Negative CD:30249 98687 Performed By: #### [id number] 3 #### [facility] [address] [place] [address] C URINE Observed: 08/29/2023 2:55 PM Status: F Source: [facility] Microbiology PROCEDURE: Urine Culture [R1] SOURCE: U CleanCatch BODY SITE: COLLECTED DATE/TIME: 08/29/2023 14:55 EDT RECEIVED DATE/TIME: 08/29/2023 16:13 EDT START DATE/TIME: 08/29/2023 16:13 EDT FREE TEXT SOURCE: Magalis Snow DO, DO, Mona J. FINAL REPORTS Final Report [] Verified Date/Time: 08/31/2023 10:56 EDT 2,000 cfu/ml Mixed skin contaminants Performing Locations R1: This test was performed at: [facility], [address] [place] [address], [address] , , Performed By: #### [id number] # ### [facility] [address] [place] [address] ALLERGIES DATE TYPE / CODE NAME / CODE REACTION SEVERITY SOURCE 07/21/2024 DRUG INGREDI/970237 003(SNOMED CT) AMOXICILLIN [facility] 07/21/2024 DRUG INGREDI/605976 003(SNOMED CT) METOCLOPRAMIDE HCL [facility] [id number](S NOMED CT) amoxicillin [id number] [facility] [id number](S NOMED CT) No Known Allergies [facility] [id number](S NOMED CT) No Known Medication Allergies [facility] ENCOUNTERS ADMIT/DISCHARGE ACCOUNT NUMBER ADMITTING ENCOUNTER CLASS LOCATION SOURCE 08/05/2024/ 025 [id number] Ambulatory Building:NOM S [facility] OB [facility] EPIC 07/22/2024/ 025 [id number] Ambulatory Building:NOM S [facility] OB [facility] EPIC 07/22/2024/ 025 [id number] Ambulatory Building:[facility] 07/02/2024/ 025 [id number] Ambulatory [facility] 06/24/2024/ 025 [id number] Ambulatory Building:NOM S [facility] OB [facility] 06/19/2024/ 025 [id number] Ambulatory [facility] 06/16/2024 [id number] Ambulatory [facility] 06/09/2024/ 025 [id number] Ambulatory Building:NOM S [facility] OB [facility] 05/22/2024/ 025 [id number] Ambulatory Building:NOM S [facility] OB [facility] EPIC 05/09/2024/ 025 [id number] Ambulatory Building:NOM S [facility]CP OB [facility] EPIC 05/09/2024/ 025 [id number] Ambulatory Building:NOM S [facility]CP OB [facility] 01/09/2024/ 024 [id number] Ras Miller [facility] 01/02/2024 [id number] [facility] 10/16/2023/ 024 [id number] Ambulatory Building:NOM S NE FM [facility] 09/10/2023 [id number] Magalis Snow Inpatient Encounter [facility]: D962Nsh: [address] [place] [address] 09/10/2023/ 024 [id number] Magalis Snow. [facility]: E946Nyn: [facility] 09/10/2023 [id number] Magalis Snow. [facility]counter [facility]: G895Emf: 01 [facility] 09/05/2023/ 024 [id number] Magalis Snow. Ambulatory [facility] :[facility] 09/05/2023/ 024 [id number] Ambulatory Building:NOM S NB OB [facility] EPIC 08/29/[id number] Ras Miller Ambulatory [facility] :[facility]: D884Hmg: 01 [facility] 08/29/2023/ 024 [id number] Ras Miller Ambulatory [facility] :O[facility]oom: R871Jit: 01 [facility] PAYERS ENCOUNTER GUARANTOR PAYER SUBSCRIBER SOURCE 08/05/2024 JORDIN TYLERDOB: [place], [place] [address]Hng: (HP) Primary Insurance:[employer] [place] [place]: [id number] Date:2022-07-19 JORDIN GOLDSTEINRYDOB: [birth year] [address] [facility] 07/22/2024 JORDIN GOLDSTEINRYDOB: [place], [place] [address]Xzw: (HP) Primary Insurance:[employer] [place] [place] Number: [id number] Date:2022-07-19 JORDIN Wilson CHERRYDOB: [birth year] [address] [facility] 07/22/2024 JORDIN CHERRYDOB: [place] [address]Fcz: (HP) Primary Insurance:[place] MEDICAIDPolicy Number: [id number] Date:2024-02-19 JORDIN CHERRYDOB: [birth year] [place] [address]Vyg: (HP) [facility] 06/24/2024 JORDIN A CHERRYDOB: [place], [place] [address]Wmm: (HP) Primary Insurance:[employer] BCBS MEDICAID O[place]OPolicy Number: [id number] Date:2022-07-19 JORDIN A CHERRYDOB: [id number] [place] [address] [facility] 06/19/2024 JORDIN A CHERRYDOB: [address]: [phone]~~[phone] (HP) Primary Insurance:MedicaidPol cy Number: [id number] Date:3855-28-85ED [address] [place] [phone]: JORDIN A TRISTONNIRAJ [facility] 06/16/2024 JORDIN A CHERRYDOB: [address]Tel: [phone]~~[phone] (HP) Primary Insurance:MedicaidPol cy Number: [id number] Date:8073-26-56XS [address] [address]IA: JORDIN A [facility]/09/2024 JORDIN A CHERRYDOB: [place], [place] [address]Dhg: (HP) Primary Insurance:[place] BCBS MEDICAID [place]icy Number: [id number] Date:2022-07-19 JORDIN A CHERRYDOB: [id number] [place] [address] [facility] 05/22/2024 JORDIN A CHERRYDOB: [place], [place] [address]Fja: (HP) (WP) Primary Insurance:[place] BCBS MEDICAID O[place]OPolicy Number: [id number] Date:2022-07-19 JORDINYAJAIRA GOLDSTEINRYDOB: [id number] [place] [address] [facility] 05/09/2024 JORDIN A TRISTONRYDOB: [place], [place] [address]Hyv: (HP) (WP) Primary Insurance:[place] BCBS MEDICAID [place]icy Number: [id number] Date:2022-07-19 JORDIN A TRISTONRYDOB: [id number] [place] [address] [facility] 05/09/2024 JORDIN Steve JAYSONDOB: [place], [place] [address]Lcj: (HP) (WP) Primary Insurance:[place] BCBS MEDICAID [place]icy Number: [id number] Date:2022-07-19 JORDIN A TRISTONRYDOB: [id number] [place] [address] [facility] 01/09/2024 JORDIN GOLDSTEINRYDOB: [address]Tel: [phone]~~[phone] (HP) Primary Insurance:MedicaidPoli cy Number: [id number] Date:3111-50-15[address] [address]GP: JORDIN MCKEON [facility] 01/02/2024 Primary Insuranc e:Self PayPolicy Number: Effective Date:2023-05-08 [facility]/2023 JORDIN TYLERDOB: [address] [address]Tdh: (HP) Primary Insurance:[facility] MEDICAID [place] Number: [id number] Date:2022-07-19 JORDIN A CHERRYDOB: [birth year] [place] [address] [facility] 09/10/2023 JORDIN A CHERRYDOB: [address]Tel: [phone]~~[phone] (HP) Primary Insurance:MedicaidPoli cy Number: [id number] Date:7081-21-02GF [address] [place] [address]TQ: JORDIN A [facility] 09/10/2023 JORDIN A CHERRYDOB: [address]Tel: [phone]~~[phone] (HP) Primary Insurance:MedicaidPoli cy Number: [id number] Date:8639-32-44RE [address] [place] [phone]: JORDIN A TRISTONNIRAJ [facility] 09/10/2023 JORDIN A CHERRYDOB: [address]: [phone]~~[phone] (HP) Primary Insurance:MedicaidPoli cy Number: [id number] Date:0232-35-04FU [address] [place] [phone]: JORDINYAJAIRA [facility]ERC[facility] 09/05/2023 JORDIN A CHERRYDOB: [address]Tel: [phone]~~[phone] (HP) Primary Insurance:MedicaidPoli cy Number: [id number] Date:1588-83-04LK [address] [place] [phone]: JORDINYAJAIRA MCKEON [facility] 09/05/2023 JORDIN Wilson CHERRYDOB: [address] [address]Fjz: (HP) Primary Insurance:[place] BCBS MEDICAID [place]olicy Number: [id number] Date:2022-07-19 JORDIN Wilson CHERRYDOB: [id number] [address] [address] [facility] 08/29/2023 JORDIN Wilson CHERRYDOB: [address]Tel: (HP) Primary Insurance:MedicaidPoli cy Number: [id number] Date:3035-08-13EP [address] [place] [phone]: [facility] Steve [facility] 08/29/2023 JORIDN Wilson CHERRYDOB: [address]Tel: (HP) Primary Insurance:MedicaidPoli cy Number: [id number] Date:5289-57-04JO [address] [place] [phone]: [facility] Steve [facility]
--- OUTSIDE RECORDS SUMMARY | 2024-08-05 09:50 | XMS_ITS | Encounter Summary ---
Author Organization [facility] Address [address] [facility] [place] [address] Care Team Providers Care Assistant Community Director Name Role Phone Sadie Thomas MD Primary Care Provider [phone] Katharine Olivarez NP Unavailable [phone] Reason for Visit * Reason Comments Routine Visit Encounter Details Date Type Department Care Team (Late st Contact Info) Description 08/05/2024 9:50 AM EDT Routine [facility] OB [address] [place] [address] Holli Roque PA [address] [place] [address] Right otitis media, unspecified otitis media type (Primary Dx); Third trimester ([facility]); 30 weeks gestation of ([facility]); SGA (small for gestational age) ([facility]) Social History Tobacco Use Types Packs/Day Years [...] often do you attend chur ch or jainism services? Never 03/15/2023 Do you belong to any clubs o r organizations such as yazidi groups, unions, fraternal or athletic groups, or [...] Recorded Patient Health Questionnaire-2 Score 0 03/15/2023 [facility] - Occupational [...] place to sleep or slept in a usp (including now)? No 03/15/2023 Education Answer Date [...] ASSESSMENT & PLAN ICD-10-CM 1. Third trimester ([facility]) Z34.93 2. 30 weeks gestation of ([facility]) Z3A.30 3. SGA (small for gestational age) ([facility]) P05.10 Return OB: Patient presents today for a routine obstetrics appointment. Patient is currently 30w2d . Patient states she is doing well but has complaints of being tired due to current . Patient has verbalizes frequent movement. labor precautions was discussed/given and patient was instructed to perform kick counts three times a day. Patient released from alf, we will start her with NST/BPP this [...] PM EDT Routine [facility] B[facility] OB [address] [place] [address] Jerry Wilson, DO [address] [place] [address] Scheduled Orders Name Type Priority Associated Diagnoses Orde r Schedule US biophysical profile w non stress test Imaging Routine SGA (small for gestational age) ([facility]) Expected: 08/05/2024 (Approximate), Expires: 02/05/2025 documented as of this encounter Visit Diagnoses Diagnosis Right otitis media, unspecified otitis media type- Primary Third trimester ([facility]) state, incidental 30 weeks gestation of ([facility]) SGA (small for gestational age) ([facility]) Noigo-mhe-vlfpp without mention of malnutrition, unspecified (weight) documented in this encounter Care Teams Assistant Community Director Relationship Specialty Start Date End Date Sadie Thomas MD [address] [place] [address] PCP - General Family Medicine 10/22/23 Katharine Olivarez NP [address] [place] [address] Nurse Practitioner Family Medicine 10/22/23 documented as of this encounter
--- OUTSIDE RECORDS SUMMARY | 2024-08-11 11:46 | XMS_ITS | Encounter Summary ---
Author Organization [facility] Address [address] [place] [address] Care Team Providers Care Match Maker Name Role Phone Unallocated, Noms Provider Primary Care Provi nani Sadie Thomas MD Primary Care Provider [phone] Katharine Olivarez BACKROOM ASSOCIATE Unavailable [phone] Encounter Details Date Type Department Care Team (Late st Contact Info) Description 03/15/2023 Orders Only [facility] NB OB [address] [place] [address] [phone] Unallocated, Noms Provider, [address] [place], [place] [address] Social History Tobacco Use Types Packs/Day Years [...] often do you attend chur ch or bahai services? Never 03/15/2023 Do you belong to any clubs o r organizations such as sikh groups, unions, fraternal or athletic groups, or [...] Recorded Patient Health Questionnaire-2 Score 0 03/15/2023 [facility] of Occupat ional [facility] - Occupational Stress Questionnaire Answer Date Recorded [...] place to sleep or slept in a intermediate (including now)? No 03/15/2023 Education Answer Date [...] EDT Routine [facility] BCP OB [address] [place] [address] Jerry Wilson, DO [address] [facility] [address] [place], [place] [id number] documented as of this encounter Procedures Procedure [...] on filedocumented in this encounter Care Teams Match Maker Relationship Specialty Start Date End Date Unallocated, Noms Provider, [address] [place] [address] PCP - General 07/19/22 10/21/23 Sadie Thomas MD [address] [place] [address] PCP - General Family Medicine 10/22/23 Katharine Olivarez NP [address] [place] [address] Nurse Practitioner Family Medicine 10/22/23 documented as of this encounter
--- OUTSIDE RECORDS SUMMARY | 2024-08-11 11:47 | XMS_ITS | Encounter Summary ---
Author Organization [facility] Address [address] [facility] [place] [address] Care Team Providers Care Spark Plug Tester Name Role Phone Sadie Thomas MD Primary Care Provider [phone] Katharine Olivarez BUILDING ENGINEER Unavailable [phone] Encounter Details Date Type Department Care Team (Late st Contact Info) Description 06/04/2024 Abstract [facility] BCP OB [address] [facility] [place] [address] Jerry Wilson, DO [address] [facility] [place] [address] Social History Tobacco Use Types Packs/Day Years [...] often do you attend chur ch or yazdanism services? Never 03/15/2023 Do you belong to [...] Recorded Patient Health Questionnaire-2 Score 0 03/15/2023 [facility] of Occupat ional Health - Occupational [...] place to sleep or slept in a long-term (including now)? No 03/15/2023 Education Answer Date [...] PM EDT Routine [facility] BCP OB [address] [facility] [place] [address] Jerry Wilson DO [address] [place] [address] documented as of this encounter Visit Diagnoses Not on filedocumented in this encounter Care Teams Spark Plug Tester Relationship Specialty Start Date End Date Sadie Thomas MD [address] [place] [address] PCP - General Family Medicine 10/22/23 Katharine Olivarez BUILDING ENGINEER [address] [place] [address] Nurse Practitioner Family Medicine 10/22/23 documented as of this encounter
--- OUTSIDE RECORDS SUMMARY | 2024-08-11 11:47 | XMS_ITS | Encounter Summary ---
Author Organization [facility] Address [address] [facility] [place] [address] Care Team Providers Care Commercial Loan Underwriter Name Role Phone Sadie Thomas MD Primary Care Provider [phone] Katharine Olivarez LOCKSTITCH TUNNEL ELASTIC OPERATOR Unavailable [phone] Encounter Details Date Type Department Care Team (Late st Contact Info) Description 05/19/2024 Abstract [facility] BCP OB [address] [facility] [place] [address] Jerry Wilson, DO [address] [facility] [place] [address] Social History Tobacco Use Types Packs/Day Years [...] often do you attend chur ch or rastafari services? Never 03/15/2023 Do you belong to any clubs o r organizations such as episcopalian groups, unions, fraternal or athletic groups, or [...] Recorded Patient Health Questionnaire-2 Score 0 03/15/2023 [facility] of Occupat ional Health - Occupational Stress [...] place to sleep or slept in a jail (including now)? No 03/15/2023 Education Answer Date [...] [address] [facility] [place] [address] Jerry Wilson DO [address] [place] [address] documented as of this encounter Visit Diagnoses Not on filedocumented in this encounter Care Teams Commercial Loan Underwriter Relationship Specialty Start Date End Date Sadie Thomas MD [address] [place] [address] PCP - General Family Medicine 10/22/23 Katharine Olivarez LOCKSTITCH TUNNEL ELASTIC OPERATOR [address] [place] [address] Nurse Practitioner Family Medicine 10/22/23 documented as of this encounter
--- OUTSIDE RECORDS SUMMARY | 2024-08-11 11:47 | XMS_ITS | Encounter Summary ---
Author Organization [facility] Address [address] [place] [address] Care Team Providers Care Developer Programmer Name Role Phone Sadie Thomas MD Primary Care Provider [phone] Katharine Olivarez NP Unavailable [phone] Encounter Details Date Type Department Care Team (Late st Contact Info) Description 08/07/2024 Clinisync Result Encounter [facility] External Department Unsolicited Holli Schulte PA [address] [place] [address] [place] [address] Social History Tobacco Use Types Packs/Day Years [...] often do you attend chur ch or restoration services? Never 03/15/2023 Do you belong to any clubs o r organizations such as gnosticist groups, unions, fraternal or athletic groups, or [...] 03/15/2023 [facility] of Occupat ional [facility] - Occupational Stress Questionnaire Answer Date Recorded [...] OB [address] [facility] [address] Jerry Wilson, DO [address] [place] [address] [place] [address] documented as of this encounter Procedures Procedure Name Priority Date/Time Associated Diagnosis Comments US OB BPP W NON-STRESS 08/07/2024 7:26 PM EDT documented in this encounter Results * US OB BPP W NON-STRESS (08/07/2024 7:26 PM EDT) Anatomical Region Laterality Modality Other 08/07/2024 7:26 PM EDT Narrative 08/07/2024 7:29 [place] [address] Ultrasound Report Signed Patient: JORDIN KIDD MR#: [id number] : 2005 Acct:[id number] Age/Sex: 19 / F ADM Date: 08/07/24 Loc: US Attending Dr: Holli Schulte Ordering Physician: Holli Schulte Date of Service: 08/07/24 Procedure(s): US OB BPP w non-stress Accession Number(s): [id number] cc: Holli Schulte; Physician,Non-Staff M.[place]ba [place] [address] Patient Name: JORDIN KIDD MRN: [facility]:[id number] date: 2005 Sex: F Assigned Patient Location: [facility] Current Patient Location: Accession/Order Number: [id number] Exam Date: 08/07/2024 19:26 Report Date: 08/07/2024 19:26 At the request of: HOLLI SCHULTE Procedure: US OB BPP w non-stress Ultrasound biophysical profile HISTORY: Small for gestational age Adequate breathing movement, gross body movement, tone and amniotic fluid volume for total score of 8 out of 8. The amniotic fluid index is 15.9cm within normal limits. The heart rate 148 bpm. US/US OB BPP w non-stress IMPRESSION: Adequate ultrasound biophysical profile Impression dictated by: Vijay Castaneda M.D. 08/07/2024 7:26 PM Dictation Location: [place] [address] Electronically authenticated by: [id number] Y Date: 08/07/2024 19:26 Dictated By: Vijay Castaneda D.O. Signed By: 08/07/241928 DD/ 25 TD/TT: Drapery Estimator: Procedure Note Radiology, Radiologist, MD - 08/07/2024 The [place] [id number] Ultrasound Report Signed Patient: JORDIN KIDD [facility]#: [id number] : 2005Acct:[id number] Age/Sex: 19 / FADM Date: 08/07/24 Loc: US Attending Dr: Holli Schulte Ordering Physician: Holli Schulte Date of Service: 08/07/24 Procedure(s): US OB BPP w non-stress Accession Number(s): [id number] cc: Holli Schulte; Physician,Non-Staff M.DFarzad [place] [id number] Patient Name: JORDIN KIDD MRN: [id number] date: 2005 Sex: F Assigned Patient Location: [facility] Current Patient Location: Accession/Order Number: [id number] Exam Date: 08/07/2024 19:26 Report Date: 08/07/2024 19:26 At the request of: HOLLI SCHULTE Procedure: US OB BPP w non-stress Ultrasound biophysical profile HISTORY: Small for gestational age Adequate breathing movement, gross body movement, tone and amniotic fluid volume for total score of 8 out of 8. The amniotic fluidindex is 15.9cm within normal limits. The heart rate 148 bpm. US/US OB BPP w non-stress IMPRESSION: Adequate ultrasound biophysical profile Impression dictated by: Vijay Castaneda M.D. 08/07/2024 7:26 PM Dictation Location: [place] [address] Electronically authenticated by: [id number] Y Date: 9:26 Dictated By: Vijay Castaneda D.O. Signed By:08/07/241928 DD/ 25 TD/TT: Drapery Estimator: us [facility] Final Result documented in this encounter Visit Diagnoses Not on filedocumented in this encounter Care Teams Developer Programmer Relationship Specialty Start Date End Date Sadie Thomas MD [address] [place] [address] PCP - General Family Medicine 10/22/23 Katharine Olivarez NP [address] [place] [address] Nurse Practitioner Family Medicine 10/22/23 documented as of this encounter
--- OUTSIDE RECORDS SUMMARY | 2024-08-11 11:47 | XMS_ITS | Patient Health Record ---
Author Organization [facility] Address [address] [place] [address] Care Team Providers Care Superintendent Factory Name Role Phone Soraida Sandy Primary Care Provider Dr. Carrillo Alegre Unavailable [phone] Juan Carlos eMssina Unavailable [phone] Chelsi Grijlava Unavailable [phone] Jasmyn Perkins Unavailable [phone] Brenna Turner Unavailable [phone] Reason For Referral No Information Encounters Encounter Location Date Provider Diagnosis [facility] [address] [place] [address] 09/18/2023 Carrillo Alegre Dental caries on pit and fissure surface penetrating into dentin K02.52 ; Cracked tooth K03.81 ; Encounter for dental examination and cleaning with abnormal findings Z01.21 ; Other dental procedure status Z98.818 and Acute gingivitis, plaque induced K05.00 [facility] [address] [place] [address] 11/19/2023 Brennamica Turner Dental caries on pit and fissure surface penetrating into dentin K02.52 [facility] [place] [address] 01/14/2024 Brenna Saric Dental caries on pit and fissure surface penetrating into dentin K02.52 [facility] [address] [place] [address] 09/26/2023 Soraida Farusto Assessments Encounter Date Diagnosis (ICD Code) Assessment [...] T ADVANTAGE -termed 22 [address] [place] [address] [id number] JORDIN TYLER Self - patient is the insured 2 3 zMEDICAID [employer] after PARAMOUNT -termed 22 [address] [place] [address] [id number] JORDIN TYLER Self - patient is the insured 2 3 zDENTAL DQ PARAMOUNT -termed 22 [address] [place] [address] [id number] JORDIN TYLER Self - patient is the insured 2 3 zDental MEDICAID [employer] after PARAMOUNT -termed 22 [address] [place] [address] [id number] JORDIN TYLER Self - patient is the insured 2 3 [facility] [place] DQ [address] [place] [address] [id number] JORDIN TYLER Self - patient is the insured 4 Dental Wrap [employer] [place] BCBS [address] [place] [address] [id number] JORDIN TYLER Self - patient is the insured 4
--- OUTSIDE RECORDS SUMMARY | 2024-08-11 11:47 | XMS_ITS | Encounter Summary ---
Author Organization [facility] Address [address] [facility] [place] [address] Care Team Providers Care Cardiographer Name Role Phone Sadie Thomas MD Primary Care Provider [phone] Katharine Olivarez AIRLINE RESERVATION AGENT Unavailable [phone] Encounter Details Date Type Department Care Team (Late st Contact Info) Description 05/27/2024 Abstract [facility] [address] [place] [address] Jerry Wilson, DO [address] [facility] [address] [place] [address] Social History Tobacco Use Types Packs/Day Years [...] often do you attend chur ch or adventism services? Never 03/15/2023 Do you belong to any clubs o r organizations such as confucianist groups, unions, fraternal or athletic groups, or [...] Questionnaire-2 Score 0 03/15/2023 [facility] - Occupational [...] to sleep or slept in a senior care (including now)? No 03/15/2023 Education Answer Date [...] Routine [facility] [address] [address] Jerry Wilson DO [address] [place] [address] documented as of this encounter Visit Diagnoses Not on filedocumented in this encounter Care Teams Cardiographer Relationship Specialty Start Date End Date Sadie Thomas MD [address] [place] [address] PCP - General Family Medicine 10/22/23 Katharine Olivarez AIRLINE RESERVATION AGENT [address] [place] [address] Nurse Practitioner Family Medicine 10/22/23 documented as of this encounter
--- OUTSIDE RECORDS SUMMARY | 2024-08-11 11:47 | XMS_ITS | Encounter Summary ---
Author Organization [facility] Address [address] [place] [address] Care Team Providers Care Digital Asset Specialist Name Role Phone Sadie Thomas MD Primary Care Provider [phone] Katharine Olivarez NURSE ANESTHESIA PROGRAM DIRECTOR Unavailable [phone] Encounter Details Date Type Department Care Team (Late st Contact Info) Description 06/19/2024 Abstract [facility] [address] [facility] [place] [address] Saadia Heck LPN Social History Tobacco [...] often do you attend chur ch or tenriism services? Never 03/15/2023 Do you belong to any clubs o r organizations such as sikhism groups, unions, fraternal or athletic groups, or [...] Recorded Patient Health Questionnaire-2 Score 0 03/15/2023 [facility] [place] [facility] - Occupational Stress [...] BCP OB [address] [place] [id number] Jerry Wilson, DO [address] [facility] [address] [place], [place] [id number] documented as of this encounter Visit Diagnoses Not on filedocumented in this encounter Care Teams Digital Asset Specialist Relationship Specialty Start Date End Date Sadie Thomas MD [address] [place] [address] PCP - General Family Medicine 10/22/23 Katharine Olivarez NP [address] [place] [address] Nurse Practitioner Family Medicine 10/22/23 documented as of this encounter
--- OUTSIDE RECORDS SUMMARY | 2024-08-11 11:47 | XMS_ITS | Clinical Summary ---
Author Organization [facility] tem Address [id number] [address] 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 Education Teacher Name Role Phone Unavailable Primary Care Provider Unavailabl e Allergies Active Allergy Reactions Criticality Noted Date Comments Amoxicillin 07/21/2024 Metoclopramide Hcl 07/21/2024 Medications [id number] c acid ( 19) 29 mg iron- [...] 11:59 PM EDT Hospital Encounter [facility] US Imaging [address] [place] [phone] Abnormal ultrasound Discharge Disposition: Home 07/22/2024 Orders Only Maternal- Medicine at [facility] [address] [place] [phone] Nely Sheldon, RN Encounter for follow-up ultrasound of anatomy (Primary Dx) 07/22/2024 Travel 07/21/2024 Abstract Maternal- Medicine at [facility] [address] [place] [phone] External, Scanning Provider 07/21/2024 Orders Only Maternal- Medicine at [facility] [address] [place] [address] Chelsi Box RN Abnormal ultrasound (Primary Dx) [...] 09/03/2024 11:00 AM EDT Appointment [facility] US Imaging [address] [place] [phone] Health Maintenance Due Date Last Done Comments Chlamydia Screening 2004 Depression Screening 2016 Tobacco Screening 2016 Adult BMI Screening 01/06/2022 DTaP,Tdap and Td Vaccines (1 - Tdap) 01/06/2023 Influenza Vaccine 10/06/2024 Medical Devices Not on file Procedures Procedure Name Priority Date/Time Associated Diagnosis Comments US [facility] COMPREHENSIVE ANATOMIC SURVEY Routine 07/22/2024 8:27 AM EDT Abnormal ultrasound ULTRASOUND OFFICE Routine 07/04/2024 3:3 1 PM EDT ULTRASOUND OFFICE Routine 05/27/2024 3:3 3 PM EDT from Last 3 Months Results * US [facility] COMPREHENSIVE ANATOMIC SURVEY (07/22/2024 8:27 AM EDT) Anatomical Region Laterality Modality 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 Para 3 [id number] Maternal Assessment ----- --------- Physical Exam Height [...] EFW (oz) 5 oz EFW by: Hadlock (WFM-QL-IB-FL) Extended Tibia 42.4 mm 26w 2d 4% Cyndie Fibula 41.8 mm 25w 6d 18% Cyndie Radius 38.7 mm 12% Chitty Ulna 41.6 mm 27w 0d 5% Cyndie Crossing [place] 5.6 mm CM 7.9 mm 81% Nicolaides [...] view. RVOT view. LVOT view. 3-vessel view. 3-rbmxie-kwteukh view. Situs. Aortic arch view. Bicaval view. [...] primary OB provider unless otherwise specified by [facility]. Procedure Note Allan Yepez MD - 07/22/2024 NAME: JAYSON BRENNER : 2005 SEX: F Accession Number: [id number] ORDERING PHYSICIAN: ALLAN YEPEZ REFERRING PHYSICIAN: DOMINGUEZ HOGAN Coding ----- --------- Procedures 18122: Ultrasound, uterus, real time with imagedocumentation, and maternal evaluation plus detailed anatomic examination, transabdominalapproach;single or first gestation Indication ----- --------- Screening for Anatomic Survey , Screening for IUGR , Maternal anemia History ----- --------- OB History 4. Para 3 [id number] Maternal Assessment ----- --------- Physical Exam Height [...] EFW (oz) 5 oz EFW by: Hadlock (APT-EL-LR-FL) Extended Tibia 42.4 mm 26w 2d 4% Cyndie Fibula 41.8 mm 25w 6d 18% Cyndie Radius 38.7 mm 12% Chitty Ulna 41.6 mm 27w 0d 5% Cyndie Crossing [place] 5.6 mm CM 7.9 mm 81% Nicolaides [...] 4-chamber view. RVOT view. LVOT view. 3-vessel view.2-qfkgeo-ebwanmh view. Situs. Aortic arch view. Bicaval view. [...] byprimary OB provider unless otherwise specified by [facility]. us Allan Yepez MD [facility] US ORDERABLES Final Resul t * Ultrasound - Office (07/04/2024 3:31 PM EDT) Only the most recent of2 resultswithin the time period is included. Anatomical Region Laterality Modality AMB Ultrasound us Not In System Ref Prov IM US ORDERABLES Final R esult from Last 3 Months Insurance [employer] Member Subscriber Plan / Payer (Ef fective 2024-Present) Name:Karla Kidd Relation to Subscriber:Self Name:Karla Kidd Payer ID:Not on file Group ID:[id number] Type:Not on file Address: [id number] [place] [id number]
--- OUTSIDE RECORDS SUMMARY | 2024-08-11 11:47 | XMS_ITS | Encounter Summary ---
Author Organization [facility] Address [address] [facility] [place] [address] Care Team Providers Care Pyrometer Temperature Regulator Name Role Phone Sadie Thomas MD Primary Care Provider [phone] Katharine Olivarez NP Unavailable [phone] Encounter Details Date Type Department Care Team (Late st Contact Info) Description 08/05/2024 Bamboo flowsheet [facility] [address] [place] [address] Holli Roque PA [address] [facility] [address] [place], [place] [id number] Social History Tobacco Use Types Packs/Day Years [...] any clubs o r organizations such as oriental orthodox groups, unions, fraternal or athletic groups, [...] Recorded Patient Health Questionnaire-2 Score 0 03/15/2023 [facility] Questionnaire [...] [facility] [address] [place] [address] Jerry Wilson, DO [address] [place], [place] [id number] documented as of this encounter Visit Diagnoses Not on filedocumented in this encounter Care Teams Pyrometer Temperature Regulator Relationship Specialty Start Date End Date Sadie Thomas MD [address] [place] [address] PCP - General Family Medicine 10/22/23 Katharine Olivarez NP [address] [place] [address] Nurse Practitioner Family Medicine 10/22/23 documented as of this encounter
--- OUTSIDE RECORDS SUMMARY | 2024-08-11 11:47 | XMS_ITS | Clinical Summary ---
Author Organization [facility] Address [address] [place] [address] Care Team Providers Care Registered Vascular Technologist (Rvt) Name Role Phone Sadie Thomas MD Primary Care Provider [phone] Katharine Olivarez NP Unavailable Allergies Active Allergy Reactions Criticality Noted Date Comments Amoxicillin 06/24/2024 Medications Vit-Fe Fumarate-FA ( Vitamins) 28-0.8 MG tabletIndication s:Missed menses, , unspecified gestational age ([facility]),Encoun ter for supervision of normal first in first trimester ([facility]) Take 1 tablet by mouth Daily 30 [...] Encounters Date Type Department Care Team Description 08/07/2024 Clinisync Result Encounter [facility] External Department Unsolicited Holli Schulte PA 08/05/2024 9:50 AM EDT Routine [facility] [address] [place] [address] [place] [address] Holli Schulte PA Right otitis media, unspecified otitis media type (Primary Dx); Third trimester ([facility]); 30 weeks gestation of ([facility]); SGA (small for gestational age) ([facility]) 08/05/2024 Bamboo flowsheet [facility] [address] [place] [address] [place] [address] Holli Schulte PA 07/23/2024 Abstract [facility] [address] [place] [address] Dominguez Wilson, 07/22/2024 1:20 PM EDT Routine [facility] OB [address] [place] [address] Dominguez Wilson, Third trimester ([facility]); 28 weeks gestation of ([facility]); SGA (small for gestational age) ([facility]) 07/22/2024 Bamboo flowsheet [facility] OB [address] [place] [address] Dominguez Wilson, 07/04/2024 Clinisync Result Encounter [facility] External Department Unsolicited Dominguez Wilson, 06/24/2024 1:50 PM EDT Routine [facility] OB [address] [place] [address] [place] [address] Dominguez Wilson, 24 weeks gestation of ([facility]); Second trimester ([facility]) 06/24/2024 Bamboo flowsheet [facility] OB [address] [place] [address] [place] [address] Dominguez Wilson, 06/19/2024 Abstract [facility] OB [address] [place] [address] Saadia Heck LPN 06/19/2024 Patient Outreach [facility] [place] [address] [address] Holli Avilez LPN 06/18/2024 Telephone [facility] OB [address] [place] [address] Blossom Wills MA 06/09/2024 10:50 AM EDT Office Visit [facility] [address] [place] [address] Dominguez Wilson DO SOB (shortness of breath); Follow-up exam; Nausea and vomiting, unspecified vomiting type 06/09/[address] [address] [place] [address] Holli Schulte PA 06/09/2024 Bamboo flowsheet [facility] [address] [place] [address] Dominguez Wilson, 06/06/[address] [address] [place] [address] Dominguez Wilson, 06/05/[address] [address] [place] [address] Tamy Juarez MA 06/04/20[address] Abstract [facility] [address] [place] [address] Dominguez Wilson, 06/04/2024 Clinisync Result Encounter [facility] External Department Unsolicited Dominguez Wilson, 06/02/[address] [address] [place] [address] Tamy Juarez MA 05/30/2024 Results Follow-Up [facility] [address] [place] [address] Fabiola Callahan LPN SGA (small for gestational age) ([facility]) 05/30/[address] [place] [address] Fabiola Callahan LPN 05/27/20[address] Abstract [facility] [address] [place] [address] Dominguez Wilson, DO 05/27/2024 Clinisync Result Encounter [facility] External Department Unsolicited Dominguez Wilson, 05/27/2024 Clinisync Result Encounter [facility] External Department Unsolicited Dominguez Wilson, 05/22/2024 11:00 AM EDT Routine NOM[facility] [address] [place] [address] Dominguez Wilson DO Exposure to STD; Need for maternal serum alpha-protein (MSAFP) screening ([facility]); Second trimester ([facility]); 20 weeks gestation of ([facility]); Screening, , for anatomic survey ([facility]); Wheezing 05/22/2024 External Result Encounter [facility] External Department Unsolicited Dominguez Wilson, DO 05/22/2024 Bamboo flowsheet [facility] [address] [place] [address] Dominguez Wilson, 05/19/20[address] Abstract [facility] [address] [place] [address] Dominguez Wilson DO from Last 3 Months Family History Medical [...] often do you attend chur ch or scientologist services? Never 03/15/2023 Do you belong to any clubs o r organizations such as yarsanism groups, unions, fraternal or athletic groups, or [...] Recorded Patient Health Questionnaire-2 Score 0 03/15/2023 [facility] Answer Date Recorded [...] place to sleep or slept in a residential (including now)? No 03/15/2023 Education Answer Date [...] 1:50 PM EDT Routine [facility] [address] [place] [address] [place] [address] Dominguez Wilson, DO [address] [facility] [place] [address] Health Maintenance Due Date Last Done Comments Influenza Vaccine (#1) 2024 Procedures Procedure Name Priority Date/Time Associated Diagnosis Comments US OB BPP W NON-STRESS 08/07/2024 7:26 PM EDT POCT URINALYSIS DIPSTICK Routine 07/22/2024 1:34 PM EDT Third trimester ([facility]) ALL CBC WITH AUTO DIFF Routine 07/04/2024 9:50 AM EDT GLUCOSE 1 HOUR Routine 07/04/2024 9:50 AM EDT US OB GROWTH 07/04/2024 9:47 AM EDT POCT URINALYSIS DIPSTICK Routine 06/24/2024 1:55 PM EDT 24 weeks gestation of ([facility]) Second trimester ([facility]) CCF LIPASE Routine 06/04/2024 4:08 AM EDT ALL AMYLASE Routine 06/04/2024 4:08 AM EDT CCF CMP (CMP) (FOR REMOTE [facility] USE) Routine 06/04/2024 4:08 AM EDT ALL CBC WITH AUTO DIFF Routine 06/04/2024 4:08 AM EDT TBH URINE MICROSCOPIC ONLY Routine 06/04/2024 3:05 AM EDT TBH UA (CLEAN/CATCH) ENGRAVER OPTICAL FRAMES/MICRO IF IND. Routine 06/04/2024 3:05 AM EDT US OB ANATOMY 05/27/2024 3:59 PM EDT US OB CERVICAL LENGTH 05/27/2024 3:54 PM EDT RECURRENT VAGINITIS (HTRX) Routine 05/22/2024 1:28 PM EDT POCT URINALYSIS DIPSTICK Routine 05/22/2024 11:39 AM EDT Second trimester ([facility]) from Last 3 Months Results * US OB BPP W NON-STRESS (08/07/2024 7:26 PM EDT) Anatomical Region Laterality Modality Other 08/07/2024 7:26 PM EDT Narrative 08/07/2024 7:29 [place] [address] Ultrasound Report Signed Patient: KARLA TYLER MR#: [id number] : 2005 Acct:[id number] Age/Sex: 19 / F ADM Date: 08/07/24 Loc: US Attending Dr: Holli Schulte Ordering Physician: Holli Schulte Date of Service: 08/07/24 Procedure(s): US OB BPP w non-stress Accession Number(s): [id number] cc: Holli Schulte; Physician,Non-Staff M.D. The [address] [address] Patient Name: KARLA TYLER MRN: TBH:[id number] date: 2005 Sex: F Assigned Patient Location: [facility] Current Patient Location: Accession/Order Number: [id number] Exam Date: 08/07/2024 19:26 Report Date: 08/07/2024 [...] Castaneda M.D. 08/07/2024 7:26 PM Dictation Location: [place] [address] Electronically authenticated by: [id number] Y Date: 08/07/2024 19:26 Dictated By: Vijay Castaneda D.O. Signed By: 08/07/241928 DD/ 25 TD/TT: Primary Montessori Teacher: Procedure Note Radiology, Radiologist, MD - 08/07/2024 [place] [address] Ultrasound Report Signed Patient: KARLA TYLER AMR#: [id number] : 2005Acct:[id number] Age/Sex: 19 / FADM Date: 08/07/24 Loc: US Attending Dr: Holli Schulte Ordering Physician: Holli Schulte Date of Service: 08/07/24 Procedure(s): US OB BPP w non-stress Accession Number(s): [id number] cc: Holli Schulte; Physician,Non-Staff Christine The [place] [address] Patient Name: KARLA TYLER MRN: [id number]:[id number] date: 2005 Sex: F Assigned Patient Location: [facility] Current Patient Location: Accession/Order Number: [id number] Exam Date: 08/07/2024 19:26 Report Date: 08/07/2024 [...] Castaneda M.D. 08/07/2024 7:26 PM Dictation Location: [place] [address] Electronically authenticated by: [id number] Y Date: 9:26 Dictated By: Vijay Castaneda D.O. Signed By:08/07/241928 DD/ 25 TD/TT: Primary Montessori Teacher: Holli TOUSSAINT [facility] IMAGING Final Result * (ABNORMAL) POCT urinalysis dipstick manually resulted (07/22/2024 1:34 PM EDT) Only the most recent of3 resultswithin the time period is included. Color, UA Yellow Clarity, UA Clear Glucose, UA Negative Negative - 2000(110) ++++ mg/dL Bilirubin, UA Negative Negative - 4(70) +++ mg/dL Ketones, UA Negative Negative - 160(16) ++++ mg/dL Spec Grav, UA 1.015 1 - 1.03 Blood, UA Negative Negative - 50 Eliseo/mcL pH, UA 8.5 5 - 9 Protein, UA Negative Negative - 2000(20) ++++ mg/dL Urobilinogen, UA 0.2 0.2 - [...] DO LAB BLOOD ORDERABLES Final Resul t [facility] * (ABNORMAL) ALL CBC WITH AUTO DIFF (07/04/2024 9:50 AM EDT) Only the most recent of2 resultswithin the time period is included. TBH WBC 7.5 4.0 - 11.0 10 3/uL TBH TBH RBC 3.82(L) 4.20 - 5.40 10 6/uL TBH TBH HGB 10.6(L) 12.0 - 16.0 g/dL TBH TBH HCT 32.9(L) 36.0 - 48.0 % TBH TBH MCV 86.1 81.0 - 99.0 fL TBH TBH MCH 27.7 26.7 - 34.0 pg TBH TBH MCHC 32.2 29.9 - 35.2 g/dL TBH TBH RDW 15.4(H) 11.0 - 15.0 % TBH [...] - 07/04/2024 10:26 AM EDT us Dominguez Steve DO CL[facility] Final Result [facility] [facility] * US OB GROWTH (07/04/2024 9:47 AM EDT) Anatomical Region Laterality Modality Other 07/04/2024 9:47 AM EDT Narrative 07/04/2024 9:[place] [address] Ultrasound Report Signed Patient: KARLA TYLER MR#: [id number] : 2005 Acct:[id number] Age/Sex: 19 / F ADM Date: 07/04/24 Loc: US Attending Dr: Dominguez Wilson D.O. Ordering Physician: Dominguez Wilson D.O. Date of Service: 07/04/24 Procedure(s): US OB growth Accession Number(s): [id number] cc: Dominguez Wilson D.O.; Physician,Non-Staff M.DFarzad The [place] [address] Patient Name: KARLA TLYER MRN: [facility]:[id number] date: 2005 Sex: F Assigned Patient Location: Current Patient Location: Accession/Order Number: [id number] Exam Date: 07/04/2024 09:40 Report Date: 07/04/2024 [...] Roe M.D. 07/04/2024 9:47 AM Dictation Location: [place] [address] Electronically authenticated by: [id number] Y Date: 07/04/2024 09:47 Dictated By: Tavia Roe M.D. Signed By: 07/04/2449 DD/ 6 TD/TT: Primary Montessori Teacher: Procedure Note Radiology, Radiologist, MD - 07/04/2024 [place] [address] Ultrasound Report Signed Patient: KARLA TYLER AMR#: [id number] : 2005Acct:[id number] Age/Sex: 19 / FADM Date: 07/04/24 Loc: US Attending Dr: Dominguez Wilson D.O. Ordering Physician: Dominguez Wilson D.O. Date of Service: 07/04/24 Procedure(s): US OB growth Accession Number(s): [id number] cc: Dominguez Wilson D.O.; Physician,Non-Staff Christine The [place] [id number] Patient Name: KARLA TYLER MRN: [id number] date: 2005 Sex: F Assigned Patient Location: Current Patient Location: US Accession/Order Number: [id number] Exam Date: 07/04/2024 09:40 Report Date: 07/04/2024 [...] Roe M.D. 07/04/2024 9:47 AM Dictation Location: [place] [address] Electronically authenticated by: [id number] Y Date: 9:47 Dictated By: Tavia Roe M.D. Signed By:07/04/24 0949 DD/ TD/TT: Primary Montessori Teacher: us Dominguez Steve DO [facility]AG[facility] Final Result * CCF LIPASE (06/04/2024 4:08 AM EDT) LIPASE 29.0 16.0 - 77.0 U/L TBH 06/04/2024 4:08 AM EDT 06/04/2024 4:29 AM EDT Narrative CLINISYNC - 06/04/2024 4:51 AM EDT Dominguez Steve DO CLIN[facility] Final Result [facility] TB * (ABNORMAL) CCF CMP (CMP) (FOR REMOTE [facility] USE) (06/04/2024 4:08 AM EDT) SODIUM 139 136 - 145 mmol/L TBH POTASSIUM 3.4(L) 3.5 - 5.1 mmol/L TBH CHLORIDE 103 98 - 107 mmol/L TBH CARBON DIOXIDE 25.3 21.0 - 32.0 mmol/L TBH ANION GAP 14.1 TBH GLUCOSE 86 74 - 106 mg/dL TBH BLOOD UREA NITROGEN 5.0(L) 7.0 - 18.0 mg/dL TBH CREATININE 0.56 0.55 - 1.02 mg/dL TBH TBH EGFR-AF UZBEK >60 >=60 mL/min/1. 73m 2 TBH TBH EGFR-NON AF UZBEK >60 >=60 mL/min/1. 73m 2 TBH BUN [...] Narrative CLINISYNC - 06/04/2024 4:51 AM EDT [facility] Steve DO CLINISYNC Final Result Performing Organization Address [facility] de Phone Number [facility] * ALL AMYLASE (06/04/2024 4:08 AM EDT) [facility] AMYLASE 51 25 - 115 U/L TB 06/04/2024 4:08 AM EDT 06/04/2024 4:29 AM EDT Narrative CLINISYNC - 06/04/2024 4:51 AM EDT [facility] Steve DO CLINISYNC Final Result Performing Organization Address [facility]/ZIP Co de Phone Number [facility] * (ABNORMAL) TB URINE MICROSCOPIC ONLY (06/04/2024 3:05 AM EDT) [facility] WBC 2-5(A) NONE SEEN #/HPF TBH TBH [...] DO CLINISYNC Final Result Performing Organization Address [facility] Co de Phone Number CL[facility]NC TB[facility] * (ABNORMAL) TBH UA (CLEAN/CATCH) ENGRAVER OPTICAL FRAMES/MICRO IF IND. (06/04/2024 3:05 AM EDT) Pathologist [facility] COLOR URINE YELLOW YELLOW TBH CLARITY URINE [...] Narrative CLINISYNC - 06/04/2024 3:43 AM EDT Skycureo DO CLINISYNC Final Result Performing Organization Address [facility] Co de Phone Number [facility]NC [facility] * US OB ANATOMY (05/27/2024 3:59 PM EDT) Anatomical Region Laterality Modality Other 05/27/2024 3:59 PM EDT Narrative 05/27/2024 4:02 PM EDT [address] [address] Ultrasound Report Signed Patient: KARLA TYLER MR#: [id number] : 2005 Acct:[id number] Age/Sex: 19 / F ADM Date: 05/27/24 Loc: US Attending Dr: Dominguez Wilson D.O. Ordering Physician: Dominguez Wilson D.O. Date of Service: 05/27/24 Procedure(s): US OB anatomy Accession Number(s): [id number] cc: Dominguez Wilson D.O.; Physician,Non-Staff Christine [address] [address] Patient Name: KARLA TYLER MRN: [id number] date: 2005 Sex: F Assigned Patient Location: US Current Patient Location: US Accession/Order Number: [id number] Exam Date: 05/27/2024 15:55 Report Date: 05/27/2024 [...] Vijay Castaneda M.D.05/27/2024 3:59 PM Dictation Location: [place] [address] Electronically authenticated by: [id number] Y Date: 05/27/2024 15:59 Dictated By: Vijay Castaneda D.O. Signed By: 05/27/24 1602 DD/ 1559 TD/TT: Primary Montessori Teacher: Procedure Note Radiology, Radiologist, MD - 05/27/2024 [place] [address] Ultrasound Report Signed Patient: KARLA TYLER AMR#: [id number] : 2005Acct:[id number] Age/Sex: 19 / FADM Date: 05/27/24 Loc: US Attending Dr: Dominguez Wilson D.O. Ordering Physician: Dominguez Wilson D.O. Date of Service: 05/27/24 Procedure(s): US OB anatomy Accession Number(s): [id number] cc: Dominguez Wilson D.O.; Physician,Non-Staff Christine The [place] [phone] Patient Name: KARLA TYLER MRN: [id number] date: 2005 Sex: F Assigned Patient Location: US Current Patient Location: US Accession/Order Number: [id number] Exam Date: 05/27/2024 15:55 Report Date: 05/27/2024 [...] The estimated weight is 295 g. with qdueozstpk68.9%. The ovaries are not visualized. No fluid [...] Vijay Castaneda M.D.05/27/2024 3:59 PM Dictation Location: [place] [address] Electronically authenticated by: [id number] Y Date: 5:59 Dictated By: Vijay Castaneda D.O. Signed By:05/27/24 1602 DD/ 1559 TD/TT: Primary Montessori Teacher: us Dominguez Wilson DO [facility] IMAGING Final Result * US OB CERVICAL LENGTH (05/27/2024 3:54 PM EDT) Anatomical Region Laterality Modality Other 05/27/2024 3:54 PM EDT Narrative 05/27/2024 3:57 [place] [address] Ultrasound Report Signed Patient: KARLA TYLER MR#: [id number] : 2005 Acct:[id number] Age/Sex: 19 / F ADM Date: 05/27/24 Loc: US Attending Dr: Dominguez Wilson D.O. Ordering Physician: Dominguez Wilson D.O. Date of Service: 05/27/24 Procedure(s): US OB cervical length Accession Number(s): [id number] cc: Dominguez Wilson D.O.; Physician,Non-Staff Christine The [place] [phone] Patient Name: KARLA TYLER MRN: [id number] date: 2005 Sex: F Assigned Patient Location: US Current Patient Location: US Accession/Order Number: [id number] Exam Date: 05/27/2024 15:54 Report Date: 05/27/2024 15:54 At the request of: DOMINGUEZ WILSON DO Procedure: US OB cervical length Ultrasound to assess for cervical length Cervical length 4.1 cm. This the cervix is closed. US/US OB cervical length IMPRESSION: 4.1 cm cervical length Impression dictated by: Vijay Castaneda M.D.05/27/2024 3:54 PM Dictation Location: [place] [address] Electronically authenticated by: [id number] Date: 05/27/2024 15:54 Dictated By: Vijay Castaneda D.O. Signed By: 05/27/24 1557 DD/ 1554 TD/TT: Primary Montessori Teacher: Procedure Note Radiology, Radiologist, MD - 05/27/2024 [place] [address] Ultrasound Report Signed Patient: KARLA TYLER AMR#: [id number] : 2005Acct:[id number] Age/Sex: 19 / FADM Date: 05/27/24 Loc: US Attending Dr: Dominguez Wilson D.O. Ordering Physician: Dominguez Wilson D.O. Date of Service: 05/27/24 Procedure(s): US OB cervical length Accession Number(s): [id number] cc: Dominguez Wilson D.O.; Physician,Non-Staff Christine The [address] [address] Patient Name: KARLA TYLER MRN: [id number] date: 2005 Sex: F Assigned Patient Location: US Current Patient Location: US Accession/Order Number: [id number] Exam Date: 05/27/2024 15:54 Report Date: 05/27/2024 15:54 At the request of: DOMINGUEZ WILSON DO Procedure: US OB cervical length Ultrasound to assess for cervical length Cervical length 4.1 cm. This the cervix is closed. US/US OB cervical length IMPRESSION: 4.1 cm cervical length Impression dictated by: Vijay Castaneda M.D.05/27/2024 3:54 PM Dictation Location: [place] [address] Electronically authenticated by: [id number] Y Date: 5:54 Dictated By: Vijay Castaneda D.O. Signed By:05/27/24 1557 DD/ 1554 TD/TT: Primary Montessori Teacher: us Dominguez Wilson DO [facility]AG[facility] Final Result * RECURRENT VAGINITIS (HTRX) (05/22/2024 1:28 PM EDT) ATOPOBIUM VAGINAE 0.000 19.961 - 24.689 ppm 05/23/2024 7:44 AM EDT [facility] ATOPOBIUM VAGINAE Not Detected 19.961 - 24.689 ppm 05/23/2024 7:44 AM EDT [facility] BVAB 2,3 (BACTERIAL VAGINOSIS ASSOCIATED BACTERIA 2, 3); MOBILUNCUS SPP 0.000 19.961 - 24.689 ppm 05/23/2024 7:44 AM EDT [facility] BVAB 2,3 (BACTERIAL VAGINOSIS ASSOCIATED BACTERIA 2, 3); MOBILUNCUS SPP Not Detected 19.961 - 24.689 ppm 05/23/2024 7:44 AM EDT [facility] DUANE ALBICANS, PARAPSILOSIS, TROPICALIS 0.000 19.961 - 30.770 ppm 05/23/2024 7:44 AM EDT [facility] DUANE ALBICANS, PARAPSILOSIS, TROPICALIS Not Detected 19.961 - 30.770 ppm 05/23/2024 7:44 AM EDT [facility] DUANE GLABRATA 0.000 23.000 - 32.138 ppm 05/23/2024 7:44 AM EDT [facility] DUANE GLABRATA Not Detected 23.000 - 32.138 ppm 05/23/2024 7:44 AM EDT [facility] DUANE KRUSEI 0.000 23.000 - 32.271 ppm 05/23/2024 7:44 AM EDT [facility] DUANE KRUSEI Not Detected 23.000 - 32.271 ppm 05/23/2024 7:44 AM EDT [facility] CHLAMYDIA TRACHOMATIS 0.000 23.000 - 31.467 ppm 05/23/2024 7:44 AM EDT [facility] CHLAMYDIA TRACHOMATIS Not Detected 23.000 - 31.467 ppm 05/23/2024 7:44 AM EDT [facility] GARDNERELLA VAGINALIS 0.000 19.961 - 24.689 ppm 05/23/2024 7:44 AM EDT [facility] GARDNERELLA VAGINALIS Not Detected 19.961 - 24.689 ppm 05/23/2024 7:44 AM EDT [facility] MEGASPHAERA (TYPES 1, 2) 0.000 19.961 - 24.689 ppm 05/23/2024 7:44 AM EDT [facility] MEGASPHAERA (TYPES 1, 2) Not Detected 19.961 - 24.689 ppm 05/23/2024 7:44 AM EDT [facility] NEISSERIA GONORRHOEAE 0.000 23.000 - 32.117 ppm 05/23/2024 7:44 AM EDT [facility] NEISSERIA GONORRHOEAE Not Detected 23.000 - 32.117 ppm 05/23/2024 7:44 AM EDT [facility] TRICHOMONAS VAGINALIS 0.000 23.000 - 32.119 ppm 05/23/2024 7:44 AM EDT [facility] TRICHOMONAS VAGINALIS Not Detected 23.000 - 32.119 ppm 05/23/2024 7:44 AM EDT [facility] MYCOPLASMA GENITALIUM 0.000 19.961 - 24.689 ppm 05/23/2024 7:44 AM EDT [facility] MYCOPLASMA GENITALIUM Not Detected 19.961 - 24.689 ppm 05/23/2024 7:44 AM EDT [facility] Tissue 05/22/2024 1:28 PM EDT 05/23/2024 2:11 AM EDT us Dominguez Wilson DO LAB BLOOD ORDERABLES Final Resul t [facility] [address] [place] [address] from Last 3 Months Insurance [employer] MEDICA[place] Care Teams Registered Vascular Technologist (Rvt) Relationship Specialty Start Date End Date Sadie Thomas MD [address] [place] [address] PCP - General Family Medicine 10/22/23 Katharine Olivarez NP [address] [place] [address] Nurse Practitioner Family Medicine 10/22/23
--- OUTSIDE RECORDS SUMMARY | 2024-08-11 11:47 | XMS_ITS | Encounter Summary ---
Author Organization [facility] Address [address] [facility] [place] [address] Care Team Providers Care Gut Sorter Name Role Phone Sadie Thomas MD Primary Care Provider [phone] Katharine Olivarez CENTRIFUGE OPERATOR Unavailable [phone] Encounter Details Date Type Department Care Team (Late st Contact Info) Description 07/23/2024 Abstract [facility] B[facility] OB [address] [facility] [place] [address] Jerry Wilson, DO [address] [facility] [place] [address] Social History Tobacco Use Types Packs/Day Years [...] Recorded Patient Health Questionnaire-2 Score 0 03/15/2023 [facility] - Occupational Stress [...] PM EDT Routine [facility] BCP OB [address] [facility] [place] [address] Jerry Wilson DO [address] [place] [address] documented as of this encounter Visit Diagnoses Not on filedocumented in this encounter Care Teams Gut Sorter Relationship Specialty Start Date End Date Sadie Thomas MD [address] [place] [address] PCP - General Family Medicine 10/22/23 Katharine Olivarez CENTRIFUGE OPERATOR [address] [place] [address] Nurse Practitioner Family Medicine 10/22/23 documented as of this encounter
[2024-08-11 12:13] VITALS: BP 111/55; PULSE 88
== END 2024-08-11 12:39 | disposition home or self-care (01) ==
LOC: FBCO 11:44 → FBC 12:08
PROVIDERS: Visit Provider Obstetrics & Gynecology
DX: O36.5930 Maternal care for other known or suspected poor fetal growth, third trimester, not applicable or unspecified (principal)
CPT/HCPCS: 59025

== ENCOUNTER 2024-08-14 00:10 | Observation (INO) | payer MEDICAID, SELFPAY ==
--- OUTSIDE RECORDS SUMMARY | 2008-06-26 06:00 | XMS_ITS | Continuity of Care Document ---
Author Organization [facility] Address [address] [place] [address] Phone Care Team Providers Care Tenant Relations Coordinator Name Role Phone Eunice GABRIEL Mitch Unavailable Unavailable Procedures Procedure Date OFFICE/OUTPATIENT VISIT, [facility] DTAP VACCINE, < 7 YRS, IM MMR VACCINE, [place] POLIOVIRUS, IPV, SC/IM CHICKEN POX VACCINE, [place] Advance Directives Directive Yes / No Effective Date File Name No Information Encounters Encounter Description Practice Location Reason(s) For Visit Diagnoses Date Provider Providers Copied on Encounter OFFICE/OUTPATI ENT VISIT, [facility], [address] [place], [place], [id number], [place] tel:[phone] [facility] No Information Eunice Cox. [address] [place], [place], [id number], [place]. tel:[phone] Family History Family Member Type Diagnosis Age [...]
--- OUTSIDE RECORDS SUMMARY | 2024-03-20 09:00 | XMS_ITS ---
Author Organization [facility] Address [address] [facility] [place] [address] Care Team Providers Care Shredding Machine Tender Name Role Phone Soraida Sandy Primary Care Provider Brenna Turner [phone] REASON FOR VISIT FILLING Encounters Encounter Location Date Provider Diagnosis [facility] [address] [facility] [place] [address] 03/20/2024 Brenna Turner Plan Of Treatment No Information Progress Notes * ESTHER TYLEROB: 4 (19 yo F)Acc No.[id number]:03/20/2024 Patient: JORDIN ROWAN Provider: Andrea Turner :2005 A ge:19 Y S ex:Female Date:03/20/2024 Address:[address] [place] [address] [id number] Pcp:Soraida Frausto Subjective: * Chief Complaints: * 1 . FILLING. * Medical History: Objective: * Vitals: Assessment: Plan: * Treatment: * Images: * Electronic signature of Eliu Turner DMD on 08/14/2024 at 12:12 AM EDT Sign off status: Pending * Provider: Andrea Turner Date: 0 03/20/2024 Generated for Cornelio edwards/Heather/eTransmitting on: 0 08/14/2024 12:12 AM EDT
--- OUTSIDE RECORDS SUMMARY | 2024-04-01 05:45 | XMS_ITS ---
Author Organization [facility] Address [address] [facility] [place] [address] Care Team Providers Care Tmd Teacher Assistant Name Role Phone Soraida Sandy Primary Care Provider Chelsi Grijalva [phone] REASON FOR VISIT PROPHY NO HYG HX SINCE 2021, GEN DECAY Encounters Encounter Location Date Provider Diagnosis [facility] [address] [place] [address] 04/01/2024 Chelsi Grijalva Plan Of Treatment No Information Progress Notes * JAYSON JOSEEDOB: 4 (19 yo F)Acc No.[id number]:04/01/2024 Patient: JORDIN ROWAN Provider: Sergio Grijalva :2005 A ge:19 Y S ex:Female Date:04/01/2024 Address[facility] Pcp:Soraida Frausto Subjective: * Chief Complaints: * 1 . PROPHY NO HYG HX SINCE 2021, GEN DECAY. * Medical History: Objective: * Vitals: Assessment: Plan: * Treatment: * Images: * Electronic signature of Cookie Grijalva on 08/14/2024 at 12:12 AM EDT Sign off status: Pending * Provider: Sergio Grijalva Date: 04/01/2024 Generated for Printi ng/Faxing/eTransmitting on: 0 08/14/2024 12:12 AM EDT
--- OUTSIDE RECORDS SUMMARY | 2024-07-14 07:00 | XMS_ITS ---
Author Organization [facility] es Address [address] [place] [address] Care Team Providers Care Hospitalist Physician Name Role Phone Soraida Sandy Primary Care Provider Dr. Carrillo Alegre [facility] [phone] REASON FOR VISIT FILLING Encounters Encounter Location Date Provider Diagnosis [facility] [address] [facility] [facility] [address] [facility]URCHST[facility] [place] [address] 2024 Carrillo Alegre Plan Of Treatment No Information Progress Notes * JAYSON JOSEEDOB: 4 (19 yo F)Acc No.[id number]:07/14/2024 Patient: JORDIN ROWAN Provider: Andrea Alegre DDS :2005 A ge:19 Y S ex:Female Date:07/14/2024 Address:[facility] [place] [facility] Pcp:Soraida Frausto Subjective: * Chief Complaints: * 1 . FILLING. * Medical History: Objective: * Vitals: Assessment: Plan: * Treatment: * Images: * Electronic signature of Dr. Carrillo Alegre , DMD on 08/14/2024 at 12:12 AM EDT Sign off status: Pending * Provider: Andrea Alegre DDS Date: 07/14/2024 Generated for Johni ng/Fajacksong/eTransmitting on: 08/14/2024 12:12 AM EDT
--- OUTSIDE RECORDS SUMMARY | 2024-08-05 09:50 | XMS_ITS | Encounter Summary ---
Author Organization [facility] Address [address] [facility] [place] [address] Care Team Providers Care Active Directory Architect Name Role Phone Sadie Thomas MD Primary Care Provider [phone] Katharine Olivarez NP Unavailable [phone] Reason for Visit * Reason Comments Routine Visit Encounter Details Date Type Department Care Team (Late st Contact Info) Description 08/05/2024 9:50 AM EDT Routine [facility] [address] [place] [address] Holli Roque PA [address] [place] [address] Right otitis media, unspecified otitis media type (Primary Dx); Third trimester ([facility]); 30 weeks gestation of ([facility]); SGA (small for gestational age) ([facility]) Social History Tobacco Use Types Packs/Day Years Used Date Smoking Tobacco: Never Smokeless Tobacco: Never Alcohol Use Standard Drinks/Week Comments Not Currently 0 (1 standard drink = 0.6 oz pur e alcohol) Humiliation, Afraid, Rape, and Kick questionnair e Answer Date Recorded Within the last year, have y ou been afraid of your partner or ex-partner? No 03/15/2023 Within the last year, have y ou been humiliated or emotionally abused in other ways by your partner or ex-partner? No Within the last year, have y ou been kicked, hit, slapped, or otherwise physically hurt by your partner or ex-partner? No 03/15/2023 Within the last year, have y ou been raped or forced to have any kind of sexual activity by your partner or ex-partner? No 03/15/2023 Social Connection and Isolat ion Panel [NHANES] Answer Date Recorded In a typical week, how many times do you talk on the phone with family, friends, or neighbors? More than three times a week 03/15/2023 How often do you get togethe r with friends or relatives? Twice a week 03/15/2023 How often do you attend chur ch or alevism services? Never 03/15/2023 Do you belong to any clubs o r organizations such as religious groups, unions, fraternal or athletic groups, or school groups? No 03/15/2023 How often do you attend meet ings of the clubs or organizations you belong to? Never 03/15/2023 Are you , , di vorced, , never , or living with a partner? Living with partner 03/15/2023 AUDIT-C Answer Date Recorded Q1: How often do you have a drink containing alcohol? Never 03/15/2023 Q2: How many drinks containi ng alcohol do you have on a typical day when you are drinking? Patient does not drink Q3: How often do you have si x or more drinks on one occasion? Never 03/15/2023 Overall Financial Resource Strain (CARDIA) Answe r Date Recorded How hard is it for you to pa y for the very basics like food, housing, medical care, and heating? Not hard at all 03/15/2023 PHQ-2 Answer Date Recorded Patient Health Questionnaire-2 Score 0 03/15/2023 [facility] - Occupational Stress Questionnaire Answer Date Recorded Do you feel stress - tense, restless, nervous, or anxious, or unable to sleep at night because your mind is troubled all the time - these days? Only a little 03/15/2023 Exercise Vital Sign Answer Date Recorde d On average, how many days pe r week do you engage in moderate to strenuous exercise (like a brisk walk)? 4 days 03/15/2023 On average, how many minutes do you engage in exercise at this level? 60 min 03/15/2023 Hunger Vital Sign Answer Date Recorded Within the past 12 months, y ou worried that your food would run out before you got the money to buy more. Never true 03/15/19 24 Within the past 12 months, t he food you bought just didn't last and you didn't have money to get more. Never true 03/15/2023 PRAPARE - Transportation Answer Date Re corded In the past 12 months, has l ack of transportation kept you from medical appointments or from getting medications? No 09/2023 In the past 12 months, has l ack of transportation kept you from meetings, work, or from getting things needed for daily living? No 03/15/2023 Housing Stability Vital Sign Answer Arcadio e Recorded In the last 12 months, was t here a time when you were not able to pay the mortgage or rent on time? No 03/15/2023 Number of Places Lived in the Last Year Not on f ile 03/15/2023 In the last 12 months, was t here a time when you did not have a steady place to sleep or slept in a [place] (including now)? No 03/15/2023 Education Answer Date Recorded What is the highest level of school you have completed or the highest degree you have received? High school graduate 03/15/2023 Estimated Date of Delivery Comme nts Yes 10/12/2024 Based on Ultraso und, FHR- 135 Sex and Gender Information Value Date Recorded Sex Assigned at Not on file Legal Sex Female 7:59 PM EDT Gender Identity Not on file Sexual Orientation Not on file Occupation Industry Job Start Date Job End Date unemployed Not on file Not on file Not on file documented as of this encounter Last Filed Vital Signs Vital Sign Reading Time Taken Comments Blood Pressure 102/50 08/05/2024 10:02 AM EDT Pulse - - Temperature - - Respiratory Rate - - Oxygen Saturation - - Inhaled Oxygen Concentration - - Weight 76.7 kg (169 lb 2 oz) 08/05/2024 10:02 AM EDT Height - - Body Mass Index 29.03 10/16/2023 2:13 PM EDT documented in this encounter Progress Notes * BREANA Chapin - 08/05/2024 9:50 AM EDT Reason for Appointment: Patient ID: Karla Kidd is a 19 y.o. female who presents for Routine Visit Patient presents today for Return OB appointment. MEDICATIONS Current Outpatient Medications Medication Instructions Vit-Fe Fumarate-FA ( Vitamins) 28-0.8 MG tablet [...] Father 52 mets to brain SURGICAL HISTORY No past surgical history on file. REVIEW OF SYSTEMS Review of Systems: Review [...] reviewed. Vitals: Estimated body mass index is 29.03 kg/m?? as calculated from the following: Height as of 10/16/23: 5' 4 . Weight as of this encounter: 169 lb 2 oz. BP: 102/50 Patient's last menstrual period was 02/23/2024. ASSESSMENT & PLAN ICD-10-CM 1. Third trimester ([facility]) Z34.93 2. 30 weeks gestation of ([facility]) Z3A.30 3. SGA (small for gestational age) ([facility]) P05.10 Return OB: Patient presents today for a routine obstetrics appointment. Patient is currently 30w2d . Patient states she is doing well but has complaints of being tired due to current . Patient has verbalizes frequent movement. labor precautions was discussed/given and patient was instructed to perform kick counts three times a day. [facility] released from [facility], we will start her with NST/BPP this week Pt complained of right ear pain, mild erythema. I will call in keflex for otitis media Orders Placed This Encounter Procedures US biophysical profile w non stress test Follow Up: Patient is to return to office in 2 week for routine OB appointment. Documented by BREANA Chapin on behalf of: BREANA Chapin documented in this encounter Plan of Treatment Upcoming Encounters Date Type Department Care Team (Late st Contact Info) Description 08/19/2024 1:50 PM EDT Routine [facility] [address] [address] Jerry Wilson, DO [address] [address] Scheduled Orders Name Type Priority Associated Diagnoses Orde r Schedule US biophysical profile w non stress test Imaging Routine SGA (small for gestational age) ([facility]) Expected: 08/05/2024 (Approximate), Expires: 02/05/2025 documented as of this encounter Visit Diagnoses Diagnosis Right otitis media, unspecified otitis media type- Primary Third trimester ([facility]) state, incidental 30 weeks gestation of ([facility]) SGA (small for gestational age) ([facility]) Tixtd-bpl-oqvhv without mention of malnutrition, unspecified (weight) documented in this encounter Care Teams Active Directory Architect Relationship Specialty Start Date End Date Sadie Thomas MD [address] [place] [address] PCP - General Family Medicine 10/22/23 Katharine Olivarez NP [address] [place] [address] Nurse Practitioner Family Medicine 10/22/23 documented as of this encounter
--- OUTSIDE RECORDS SUMMARY | 2024-08-14 00:12 | XMS_ITS | Clinical Summary ---
Author Organization [facility] Address [address] [place] [address] Care Team Providers Care Cone Worker Name Role Phone Sadie Thomas MD Primary Care Provider [phone] Katharine Olivarez NP Unavailable Allergies Active Allergy Reactions Criticality Noted Date Comments Amoxicillin 06/24/2024 Medications Vit-Fe Fumarate-FA ( Vitamins) 28-0.8 MG tabletIndication s:Missed menses, , unspecified gestational age ([facility]),Encoun ter for supervision of normal first in first trimester ([facility]) Take 1 tablet by mouth Daily 30 [...] 9:50 AM EDT Routine [facility] [address] [place] [address] [place] [address] Holli Schulte PA Right otitis media, unspecified otitis media type (Primary Dx); Third trimester ([facility]); 30 weeks gestation of ([facility]); SGA (small for gestational age) ([facility]) 08/05/[address] [facility] [address] [place] [address] [place] [address] Holli Schulte PA 07/23/[address] [facility] [address] [place] [address] Dominguez Wilson, 07/22/2024 1:20 PM EDT [facility]ine [facility] [address] [facility] [place] [address] Dominguez Wilson, Third trimester ([facility]); 28 weeks gestation of ([facility]); SGA (small for gestational age) ([facility]) 07/22/[address] [facility] [address] [facility] [place] [address] Dominguez Wilson, 07/04/2024 Clinisync Result Encounter [facility] External Department Unsolicited Dominguez Wilson, 06/24/2024 1:50 PM EDT [facility]ine [facility] [address] [place] [address] [place] [address] Dominguez Wilson, 24 weeks gestation of ([facility]); Second trimester ([facility]) 06/24/[address] [facility] [address] [place] [address] [place] [address] Dominguez Wilson, 06/19/[address] [facility] [address] [facility] [place] [address] Saadia Heck LPN 06/19/2024 Patient Outreach [facility] [place] [address] [address] Holli Avilez LPN 06/18/[address] [facility] [address] [facility] [place] [address] Blossom Wills MA 06/09/2024 10:50 AM EDT Office Visit [facility] [address] [place] [address] Dominguez Wilson DO SOB (shortness of breath); Follow-up exam; Nausea and vomiting, unspecified vomiting type 06/09/[address] [address] [place] [address] Holli Schulte PA 06/09/2024 Bamboo flowsheet [facility] [address] [place] [address] Dominguez Wilson, 06/06/[address] [facility] [address] [place] [address] Dominguez Wilson, 06/05/[address] [facility] [address] [place] [address] Tamy Juarez MA 06/04/20[address] Abstract [facility] [address] [place] [address] Dominguez Wilson, 06/04/2024 Clinisync Result Encounter [facility] External Department Unsolicited Dominguez Wilson, 06/02/[address] [facility] [address] [place] [address] Tamy Juarez MA 05/30/2024 Results Follow-Up [facility] [address] [place] [address] Fabiola Callahan LPN SGA (small for gestational age) ([facility]) 05/30/[address] [address] [place] [address] Fabiola Callahan LPN 05/27/20[address] Abstract [facility] [address] [place] [address] Dominguez Wilson, DO 05/27/2024 Clinisync Result Encounter [facility] External Department Unsolicited Dominguez Wilson, 05/27/2024 Clinisync Result Encounter [facility]OM[facility] External Department Unsolicited Dominguez Wilson, 05/22/2024 11:00 AM EDT Routine [facility] [address] [place] [address] Dominguez Wilson DO Exposure to STD; Need for maternal serum alpha-protein (MSAFP) screening ([facility]); Second trimester ([facility]); 20 weeks gestation of ([facility]); Screening, , for anatomic survey ([facility]); Wheezing 05/22/2024 External Result Encounter [facility] External Department Unsolicited Dominguez Wilson, DO 05/22/2024 Bamboo flowsheet [facility] [address] [place] [address] Dominguez Wilson, 05/19/20[address] Abstract [facility] [address] [place] [address] Dominguez Wilson DO from Last 3 Months [...] often do you attend chur ch or yarsanism services? Never 03/15/2023 Do you belong to any clubs o r organizations such as zoroastrianism groups, unions, fraternal or athletic groups, or [...] Recorded Patient Health Questionnaire-2 Score 0 03/[facility]/2023 [facility] Answer Date Recorded [...] place to sleep or slept in a skilled nursing (including now)? No 03/15/2023 Education Answer Date [...] 1:50 PM EDT Routine [facility] [address] [place] [address] [place] [address] Dominguez Wilson, DO [address] [facility] [facility] [place] [address] Health Maintenance Due Date Last Done Comments Influenza Vaccine (#1) 2024 Procedures Procedure Name Priority Date/Time Associated Diagnosis Comments US OB BPP W NON-STRESS 08/07/2024 7:26 PM EDT POCT URINALYSIS DIPSTICK Routine 07/22/2024 1:34 PM EDT Third trimester ([facility]) ALL CBC WITH AUTO DIFF Routine 07/04/2024 9:50 AM EDT GLUCOSE 1 HOUR Routine 07/04/2024 9:50 AM EDT US OB GROWTH 07/04/2024 9:47 AM EDT POCT URINALYSIS DIPSTICK Routine 06/24/2024 1:55 PM EDT 24 weeks gestation of ([facility]) Second trimester ([facility]) CCF LIPASE Routine 06/04/2024 4:08 AM EDT ALL AMYLASE Routine 06/04/2024 4:08 AM EDT CCF CMP (CMP) (FOR REMOTE [facility] USE) Routine 06/04/2024 4:08 AM EDT ALL CBC WITH AUTO DIFF Routine 06/04/2024 4:08 AM EDT TBH URINE MICROSCOPIC ONLY Routine 06/04/2024 3:05 AM EDT TBH UA (CLEAN/CATCH) LUNCHEONETTE OPERATOR/MICRO IF IND. Routine 06/04/2024 3:05 AM EDT US OB ANATOMY 05/27/2024 3:59 PM EDT US OB CERVICAL LENGTH 05/27/2024 3:54 PM EDT RECURRENT VAGINITIS (HTRX) Routine 05/22/2024 1:28 PM EDT POCT URINALYSIS DIPSTICK Routine 05/22/2024 11:39 AM EDT Second trimester ([facility]) from Last 3 Months Results * US OB BPP W NON-STRESS (08/07/2024 7:26 PM EDT) Anatomical Region Laterality Modality Other 08/07/2024 7:26 PM EDT Narrative 08/07/2024 7:29 [place] [address] Ultrasound Report Signed Patient: KARLA TYLER MR#: [id number] : 2005 Acct:[id number] Age/Sex: 19 / F ADM Date: 08/07/24 Loc: US Attending Dr: Holli Schulte Ordering Physician: Holli Schulte Date of Service: 08/07/24 Procedure(s): US OB BPP w non-stress Accession Number(s): [id number] cc: Holli Schulte; Physician,Non-Staff M.D. The [address] [address] Patient Name: KARLA TYLER MRN: [id number] date: 2005 Sex: F Assigned Patient Location: [facility] Current Patient Location: Accession/Order Number: [id number] Exam Date: 08/07/2024 19:26 Report Date: 08/07/2024 [...] Castaneda M.D. 08/07/2024 7:26 PM Dictation Location: [place] [address] Electronically authenticated by: [id number] Y Date: 08/07/2024 19:26 Dictated By: Vijay Castaneda D.O. Signed By: 08/07/241928 DD/ 25 TD/TT: Property Management Intern: Procedure Note Radiology, Radiologist, MD - 08/07/2024 [place] [address] Ultrasound Report Signed Patient: KARLA TYLER AMR#: [id number] : 2005Acct:[id number] Age/Sex: 19 / FADM Date: 08/07/24 Loc: US Attending Dr: Holli Schulte Ordering Physician: Holli Schulte Date of Service: 08/07/24 Procedure(s): US OB BPP w non-stress Accession Number(s): [id number] cc: Holli Schulte; Physician,Non-Staff Christine The [place] [id number] Patient Name: KARLA TYLER MRN: [id number] date: 2005 Sex: F Assigned Patient Location: [facility] Current Patient Location: Accession/Order Number: [id number] Exam Date: 08/07/2024 19:26 Report Date: 08/07/2024 [...] Castaneda M.D. 08/07/2024 7:26 PM Dictation Location: [place] [address] Electronically authenticated by: [id number] Y Date: 9:26 Dictated By: Vijay Csataneda D.O. Signed By:08/07/241928 DD/ 25 TD/TT: Property Management Intern: Holli TOUSSAINT CLINISYNC IMAGING Final Result * [...] Positive Urine 07/22/2024 1:34 PM EDT us Doimnguez Steve DO POINT OF CARE TEST ENTER/EDIT OR DERABLES Final Result * GLUCOSE 1 HOUR (07/04/2024 9:50 AM EDT) GLUCOSE 1 HOUR 103 <130 mg/dL TBH 07/04/2024 9:50 AM EDT 07/04/2024 9:52 AM EDT Narrative CLINISYNC - 07/04/2024 10:07 AM EDT us Dominguez Steve DO LAB BLOOD ORDERABLES Final Resul t [facility] * (ABNORMAL) ALL CBC WITH AUTO DIFF [...] Dominguez Steve DO CLINISYNC Final Result [facility]NC [facility] * US OB GROWTH (07/04/2024 9:47 AM EDT) Anatomical Region Laterality Modality Other 07/04/2024 9:47 AM EDT Narrative 07/04/2024 9:49 [place] [address] Ultrasound Report Signed Patient: KARLA TYLER MR#: [id number] : 2005 Acct:[id number] Age/Sex: 19 / F ADM Date: 07/04/24 Loc: US Attending Dr: Dominguez Wilson D.O. Ordering Physician: Dominguez Wilson D.O. Date of Service: 07/04/24 Procedure(s): US OB growth Accession Number(s): [id number] cc: Dominguez Wilson D.O.; Physician,Non-Staff M.DFarzad The [place] [address] Patient Name: KARLA TYLER MRN: [facility]:[id number] date: 2005 Sex: F Assigned Patient Location: Current Patient Location: Accession/Order Number: [id number] Exam Date: 07/04/2024 09:40 Report Date: 07/04/2024 [...] Roe M.D. 07/04/2024 9:47 AM Dictation Location: [place] [address] Electronically authenticated by: [id number] Y Date: 07/04/2024 09:47 Dictated By: Tavia Roe M.D. Signed By: 07/04/2449 DD/ 6 TD/TT: Property Management Intern: Procedure Note Radiology, Radiologist, MD - 07/04/2024 [place] [address] Ultrasound Report Signed Patient: KARLA TYLER AMR#: [id number] : 2005Acct:[id number] Age/Sex: 19 / FADM Date: 07/04/24 Loc: US Attending Dr: Dominguez Wilson D.O. Ordering Physician: Dominguez Wilson D.O. Date of Service: 07/04/24 Procedure(s): US OB growth Accession Number(s): [id number] cc: Dominguez Wilson D.O.; Physician,Non-Staff Christine The [place] [id number] Patient Name: KARLA TYLER MRN: [id number] date: 2005 Sex: F Assigned Patient Location: Current Patient Location: US Accession/Order Number: [id number] Exam Date: 07/04/2024 09:40 Report Date: 07/04/2024 [...] Roe M.D. 07/04/2024 9:47 AM Dictation Location: [place] [address] Electronically authenticated by: [id number] Y Date: 9:47 Dictated By: Tavia Roe M.D. Signed By:07/04/24 0949 DD/ TD/TT: Property Management Intern: us Dominguez Steve DO [facility] IMAGING Final Result * CCF LIPASE (06/04/2024 4:08 AM EDT) LIPASE 29.0 16.0 - 77.0 U/L [facility]H 06/04/2024 4:08 AM EDT 06/04/2024 4:29 AM EDT Narrative CLINISYNC - 06/04/2024 4:51 AM EDT Dominguez Steve DO CLINISYNC Final Result CLINISYNC TB * (ABNORMAL) CCF CMP (CMP) (FOR REMOTE [facility] USE) (06/04/2024 4:08 AM EDT) SODIUM 139 136 - 145 mmol/L TBH POTASSIUM 3.4(L) 3.5 - 5.1 mmol/L TBH CHLORIDE 103 98 - 107 mmol/L TBH CARBON DIOXIDE 25.3 21.0 - 32.0 mmol/L TBH ANION GAP 14.1 TBH GLUCOSE 86 74 - 106 mg/dL TBH BLOOD UREA NITROGEN 5.0(L) 7.0 - 18.0 mg/dL TBH CREATININE 0.56 0.55 - 1.02 mg/dL TBH TBH EGFR-AF GABONESE >60 >=60 mL/min/1. 73m 2 TBH TBH EGFR-NON AF GABONESE >60 >=60 mL/min/1. 73m 2 TBH BUN [...] Narrative CLINISYNC - 06/04/2024 4:51 AM EDT [facility] Steve DO CLINISYNC Final Result Performing Organization Address [facility] de Phone Number [facility] * ALL AMYLASE (06/04/2024 4:08 AM EDT) [facility] AMYLASE 51 25 - 115 U/L TB 06/04/2024 4:08 AM EDT 06/04/2024 4:29 AM EDT Narrative CLINISYNC - 06/04/2024 4:51 AM EDT [facility] Steve DO CLINISYNC Final Result Performing Organization Address [facility]/ZIP Co de Phone Number [facility] * (ABNORMAL) TB URINE MICROSCOPIC ONLY (06/04/2024 3:05 AM EDT) [facility] WBC 2-5(A) NONE SEEN #/HPF TBH TBH [...] DO CLINISYNC Final Result Performing Organization Address [facility] Co de Phone Number CLINISYNC [facility]H * (ABNORMAL) TBH UA (CLEAN/CATCH) LUNCHEONETTE OPERATOR/MICRO IF IND. (06/04/2024 3:05 AM EDT) Pathologist [facility] COLOR URINE YELLOW YELLOW TBH CLARITY URINE [...] Narrative CLINISYNC - 06/04/2024 3:43 AM EDT [employer] DO CLINISYNC Final Result Performing Organization Address [facility] Co de Phone Number CLINISYNC [facility] * US OB ANATOMY (05/27/2024 3:59 PM EDT) Anatomical Region Laterality Modality Other 05/27/2024 3:59 PM EDT Narrative 05/27/2024 4:02 PM EDT [address] [address] Ultrasound Report Signed Patient: KARLA TYLER MR#: [id number] : 2005 Acct:[id number] Age/Sex: 19 / F ADM Date: 05/27/24 Loc: US Attending Dr: Dominguez Wilson D.O. Ordering Physician: Dominguez Wilson D.O. Date of Service: 05/27/24 Procedure(s): US OB anatomy Accession Number(s): [id number] cc: Dominguez Wilson D.O.; Physician,Non-Staff Christine [address] [address] Patient Name: KARLA TYLER MRN: [id number] date: 2005 Sex: F Assigned Patient Location: US Current Patient Location: US Accession/Order Number: [id number] Exam Date: 05/27/2024 15:55 Report Date: 05/27/2024 [...] Vijay Castaneda M.D.05/27/2024 3:59 PM Dictation Location: [place] [address] Electronically authenticated by: [id number] Y Date: 05/27/2024 15:59 Dictated By: Vijay Castaneda D.O. Signed By: 05/27/24 1602 DD/ 1559 TD/TT: Property Management Intern: Procedure Note Radiology, Radiologist, MD - 05/27/2024 [place] [address] Ultrasound Report Signed Patient: KARLA TYLER AMR#: [id number] : 2005Acct:[id number] Age/Sex: 19 / FADM Date: 05/27/24 Loc: US Attending Dr: Dominguez Wilson D.O. Ordering Physician: Dominguez Wilson D.O. Date of Service: 05/27/24 Procedure(s): US OB anatomy Accession Number(s): [id number] cc: Dominguez Wilson D.O.; Physician,Non-Staff Christine The [place] [id number] Patient Name: KARLA TYLER MRN: [id number] date: 2005 Sex: F Assigned Patient Location: US Current Patient Location: US Accession/Order Number: [id number] Exam Date: 05/27/2024 15:55 Report Date: 05/27/2024 [...] The estimated weight is 295 g. with iznecjaoyv35.9%. The ovaries are not visualized. No fluid [...] Vijay Castaneda M.D.05/27/2024 3:59 PM Dictation Location: [place] [address] Electronically authenticated by: [id number] Y Date: 5:59 Dictated By: Vijay Castaneda D.O. Signed By:05/27/24 1602 DD/ 1559 TD/TT: Property Management Intern: us Dominguez Wilson DO [facility] IMAGING Final Result * US OB CERVICAL LENGTH (05/27/2024 3:54 PM EDT) Anatomical Region Laterality Modality Other 05/27/2024 3:54 PM EDT Narrative 05/27/2024 3:57 [place] [address] Ultrasound Report Signed Patient: KARLA TYLER MR#: [id number] : 2005 Acct:[id number] Age/Sex: 19 / F ADM Date: 05/27/24 Loc: US Attending Dr: Dominguez Wilson D.O. Ordering Physician: Dominguez Wilson D.O. Date of Service: 05/27/24 Procedure(s): US OB cervical length Accession Number(s): [id number] cc: Dominguez Wilson D.O.; Physician,Non-Staff Christine The [place] [id number] Patient Name: KARLA TYLER MRN: [id number] date: 2005 Sex: F Assigned Patient Location: US Current Patient Location: US Accession/Order Number: [id number] Exam Date: 05/27/2024 15:54 Report Date: 05/27/2024 15:54 At the request of: DOMINGUEZ WILSON DO Procedure: US OB cervical length Ultrasound to assess for cervical length Cervical length 4.1 cm. This the cervix is closed. US/US OB cervical length IMPRESSION: 4.1 cm cervical length Impression dictated by: Vijay Castaneda M.D.05/27/2024 3:54 PM Dictation Location: [place] [address] Electronically authenticated by: [id number] Date: 05/27/2024 15:54 Dictated By: Vijay Castaneda D.O. Signed By: 05/27/24 1557 DD/ 1554 TD/TT: Property Management Intern: Procedure Note Radiology, Radiologist, MD - 05/27/2024 [place] [address] Ultrasound Report Signed Patient: KARLA TYLER AMR#: [id number] : 2005Acct:[id number] Age/Sex: 19 / FADM Date: 05/27/24 Loc: US Attending Dr: Dominguez Wilson D.O. Ordering Physician: Dominguez Wilson D.O. Date of Service: 05/27/24 Procedure(s): US OB cervical length Accession Number(s): [id number] cc: Dominguze Wilson D.O.; Physician,Non-Staff Christine The [address] [address] Patient Name: KARLA TYLER MRN: [id number] date: 2005 Sex: F Assigned Patient Location: US Current Patient Location: US Accession/Order Number: [id number] Exam Date: 05/27/2024 15:54 Report Date: 05/27/2024 15:54 At the request of: DOMINGUEZ WILSON DO Procedure: US OB cervical length Ultrasound to assess for cervical length Cervical length 4.1 cm. This the cervix is closed. US/US OB cervical length IMPRESSION: 4.1 cm cervical length Impression dictated by: Vijay Castaneda M.D.05/27/2024 3:54 PM Dictation Location: [place] [address] Electronically authenticated by: [id number] Y Date: 5:54 Dictated By: Vijay Castaneda D.O. Signed By:05/27/24 1557 DD/ 1554 TD/TT: Property Management Intern: us Dominguez Wilson DO [facility] IMAGING Final Result * RECURRENT VAGINITIS (HTRX) (05/22/2024 1:28 PM EDT) ATOPOBIUM VAGINAE 0.000 19.961 - 24.689 ppm 05/23/2024 7:44 AM EDT [facility] ATOPOBIUM VAGINAE Not Detected 19.961 - 24.689 ppm 05/23/2024 7:44 AM EDT [facility] BVAB 2,3 (BACTERIAL VAGINOSIS ASSOCIATED BACTERIA 2, 3); MOBILUNCUS SPP 0.000 19.961 - 24.689 ppm 05/23/2024 7:44 AM EDT [facility] BVAB 2,3 (BACTERIAL VAGINOSIS ASSOCIATED BACTERIA 2, 3); MOBILUNCUS SPP Not Detected 19.961 - 24.689 ppm 05/23/2024 7:44 AM EDT [facility] DUANE ALBICANS, PARAPSILOSIS, TROPICALIS 0.000 19.961 - 30.770 ppm 05/23/2024 7:44 AM EDT [facility] DUANE ALBICANS, PARAPSILOSIS, TROPICALIS Not Detected 19.961 - 30.770 ppm 05/23/2024 7:44 AM EDT [facility] DUANE GLABRATA 0.000 23.000 - 32.138 ppm 05/23/2024 7:44 AM EDT [facility] DUANE GLABRATA Not Detected 23.000 - 32.138 ppm 05/23/2024 7:44 AM EDT [facility] DUANE KRUSEI 0.000 23.000 - 32.271 ppm 05/23/2024 7:44 AM EDT [facility] DUANE KRUSEI Not Detected 23.000 - 32.271 ppm 05/23/2024 7:44 AM EDT [facility] CHLAMYDIA TRACHOMATIS 0.000 23.000 - 31.467 ppm 05/23/2024 7:44 AM EDT [facility] CHLAMYDIA TRACHOMATIS Not Detected 23.000 - 31.467 ppm 05/23/2024 7:44 AM EDT [facility] GARDNERELLA VAGINALIS 0.000 19.961 - 24.689 ppm 05/23/2024 7:44 AM EDT [facility] GARDNERELLA VAGINALIS Not Detected 19.961 - 24.689 ppm 05/23/2024 7:44 AM EDT [facility] MEGASPHAERA (TYPES 1, 2) 0.000 19.961 - 24.689 ppm 05/23/2024 7:44 AM EDT [facility] MEGASPHAERA (TYPES 1, 2) Not Detected 19.961 - 24.689 ppm 05/23/2024 7:44 AM EDT [facility] NEISSERIA GONORRHOEAE 0.000 23.000 - 32.117 ppm 05/23/2024 7:44 AM EDT [facility] NEISSERIA GONORRHOEAE Not Detected 23.000 - 32.117 ppm 05/23/2024 7:44 AM EDT [facility] TRICHOMONAS VAGINALIS 0.000 23.000 - 32.119 ppm 05/23/2024 7:44 AM EDT [facility] TRICHOMONAS VAGINALIS Not Detected 23.000 - 32.119 ppm 05/23/2024 7:44 AM EDT [facility] MYCOPLASMA GENITALIUM 0.000 19.961 - 24.689 ppm 05/23/2024 7:44 AM EDT [facility] MYCOPLASMA GENITALIUM Not Detected 19.961 - 24.689 ppm 05/23/2024 7:44 AM EDT [facility] Tissue 05/22/2024 1:28 PM EDT 05/23/2024 2:11 AM EDT us Dominguez Wilson DO LAB BLOOD ORDERABLES Final Resul t [facility] [address] [place] [address] from Last 3 Months Insurance [employer] [place]ICA[place] Care Teams Cone Worker Relationship Specialty Start Date End Date Sadie Thomas MD [address] [place] [address] PCP - General Family Medicine 10/22/23 Katahrine Olivarez NP [address] [place] [address] Nurse Practitioner Family Medicine 10/22/23
--- OUTSIDE RECORDS SUMMARY | 2024-08-14 00:12 | XMS_ITS | Encounter Summary ---
Author Organization [facility] Address [address] [place] [address] Care Team Providers Care Massage Coordinator Name Role Phone Sadie Thomas MD Primary Care Provider [phone] Katharine Olivarez MANAGER PRINT Unavailable [phone] Encounter Details Date Type Department Care Team (Late st Contact Info) Description 07/23/2024 Abstract [facility] OB [address] [place] [place] [address] Jerry Wilson, DO [address] [place] [address] Social History Tobacco Use Types Packs/Day Years [...] any clubs o r organizations such as yazdanism groups, unions, fraternal or athletic groups, or [...] Recorded Patient Health Questionnaire-2 Score 0 03/15/2023 [facility] - Occupational [...] [facility] [address] [place] [place] [address] Jerry Wilson DO [address] [place] [address] documented as of this encounter Visit Diagnoses Not on filedocumented in this encounter Care Teams Massage Coordinator Relationship Specialty Start Date End Date Sadie Thomas MD [address] [place] [address] PCP - General Family Medicine 10/22/23 Katharine Olivarez MANAGER PRINT [address] [place] [address] Nurse Practitioner Family Medicine 10/22/23 documented as of this encounter
--- OUTSIDE RECORDS SUMMARY | 2024-08-14 00:12 | XMS_ITS | Encounter Summary ---
Author Organization [facility] Address [address] [place] [address] Care Team Providers Care Kiln Furniture Saw Tender Name Role Phone Sadie Thomas MD Primary Care Provider [phone] Katharine Olivarez NP Unavailable [phone] Encounter Details Date Type Department Care Team (Late st Contact Info) Description 08/07/2024 Clinisync Result Encounter [facility] External Department Unsolicited Holli Schulte PA [address] [place] [address] [place] [address] Social History Tobacco Use Types Packs/Day Years [...] often do you attend chur ch or yazidism services? Never 03/15/2023 Do you belong to any clubs o r organizations such as presybeterian groups, unions, fraternal or athletic groups, or [...] Recorded Patient Health Questionnaire-2 Score 0 03/15/2023 [facility]at ional [facility] - Occupational Stress Questionnaire Answer Date [...] place to sleep or slept in a halfway (including now)? No 03/15/2023 Education Answer Date [...] PM EDT Routine [facility] BCP OB [address] [place] [address] Jerry Wilson, DO [address] [place] [address] [place] [address] documented as of this encounter Procedures Procedure Name Priority Date/Time Associated Diagnosis Comments US OB BPP W NON-STRESS 08/07/2024 7:26 PM EDT documented in this encounter Results * US OB BPP W NON-STRESS (08/07/2024 7:26 PM EDT) Anatomical Region Laterality Modality Other 08/07/2024 7:26 PM EDT Narrative 08/07/2024 7:29 [place] [address] Ultrasound Report Signed Patient: JORDIN KIDD MR#: [id number] : 2005 Acct:[id number] Age/Sex: 19 / F ADM Date: 08/07/24 Loc: US Attending Dr: Holli Schulte Ordering Physician: Holli Schulte Date of Service: 08/07/24 Procedure(s): US OB BPP w non-stress Accession Number(s): [id number] cc: Holli Schulte; Physician,Non-Staff M.[place]ba [place] [address] Patient Name: JORDIN KIDD MRN: [facility]:[id number] date: 2005 Sex: F Assigned Patient Location: [facility] Current Patient Location: Accession/Order Number: [id number] Exam Date: 08/07/2024 19:26 Report Date: 08/07/2024 [...] 08/07/2024 7:26 PM Dictation Location: [place] [address] Electronically authenticated by: [id number] Y Date: 08/07/2024 19:26 Dictated By: Vijay Castaneda D.O. Signed By: 08/07/241928 DD/ 25 TD/TT: Line Appliance Assembler: Procedure Note Radiology, Radiologist, MD - 08/07/2024 The [place] [id number] Ultrasound Report Signed Patient: JORDIN KIDD [facility]#: [id number] : 2005Acct:[id number] Age/Sex: 19 / FADM Date: 08/07/24 Loc: US Attending Dr: Holli Schulte Ordering Physician: Holli Schulte Date of Service: 08/07/24 Procedure(s): US OB BPP w non-stress Accession Number(s): [id number] cc: Holli Schulte; Physician,Non-Staff M.DFarzad [place] [id number] Patient Name: JORDIN KIDD MRN: [id number] date: 2005 Sex: F Assigned Patient Location: [facility] Current Patient Location: Accession/Order Number: [id number] Exam Date: 08/07/2024 19:26 Report Date: 08/07/2024 [...] 08/07/2024 7:26 PM Dictation Location: [place] [address] Electronically authenticated by: [id number] Y Date: 9:26 Dictated By: Vijay Castaneda D.O. Signed By:08/07/241928 DD/ 25 TD/TT: Line Appliance Assembler: us [facility] Final Result documented in this encounter Visit Diagnoses Not on filedocumented in this encounter Care Teams Kiln Furniture Saw Tender Relationship Specialty Start Date End Date Sadie Thomas MD [address] [place] [address] PCP - General Family Medicine 10/22/23 Katharine Olivarez NP [address] [place] [address] Nurse Practitioner Family Medicine 10/22/23 documented as of this encounter
--- OUTSIDE RECORDS SUMMARY | 2024-08-14 00:12 | XMS_ITS | Encounter Summary ---
Author Organization [facility] Address [address] [facility] [place] [address] Care Team Providers Care Sausage Linker Name Role Phone Unallocated, Noms Provider Primary Care Provi nani Sadie Thomas MD Primary Care Provider [phone] Katharine Olivarez JOINT FILLER Unavailable [phone] Encounter Details Date Type Department Care Team (Late st Contact Info) Description 08/16/2022 Abstract [facility] BCP OB [address] [place] [id number] Jerry Wilson DO [address] [place] [address] Social History Tobacco Use Types Packs/Day Years Used Date Smoking Tobacco: Never Assessed Comments Yes Sex and Gender Information Value Date Recorded Sex Assigned at Not on file Legal Sex Female 7:59 PM EDT Gender Identity Not on file Sexual Orientation Not on file documented as of this encounter Plan of Treatment Upcoming Encounters Date Type Department Care Team (Late st Contact Info) Description 08/19/2024 1:50 PM EDT Routine [facility] BCP OB [address] [place] [address] Jerry Wilson DO [address] [place] [address] documented as of this encounter Visit Diagnoses Not on filedocumented in this encounter Care Teams Sausage Linker Relationship Specialty Start Date End Date Unallocated, Noms ProviderMD [address] [facility] [place] [address] PCP - General 07/19/22 10/21/23 Sadie Thomas MD [address] [place] [address] PCP - General Family Medicine 10/22/23 Katharine Olivarez NP [address] [place] [address] Nurse Practitioner Family Medicine 10/22/23 documented as of this encounter
--- OUTSIDE RECORDS SUMMARY | 2024-08-14 00:12 | XMS_ITS | Patient Health Record ---
Author Organization [facility] Address [address] [place] [address] Care Team Providers Care Director Of Business Systems Name Role Phone Soraida Sandy Primary Care Provider [phone] Dr. Carrillo Alegre Unavailable [phone] Juan Carlos Messina Unavailable [phone] Chelsi Grijalva Unavailable [phone] Jasmyn Perkins Unavailable [phone] Brenna Turner Unavailable [phone] Reason For Referral No Information Encounters Encounter Location Date Provider Diagnosis [facility] [address] [place] [address] 09/18/2023 Carrillo Alegre Dental caries on pit and fissure surface penetrating into dentin K02.52 ; Cracked tooth K03.81 ; Encounter for dental examination and cleaning with abnormal findings Z01.21 ; Other dental procedure status Z98.818 and Acute gingivitis, plaque induced K05.00 [facility] [address] [place] [address] 11/19/2023 Brennamica Turner Dental caries on pit and fissure surface penetrating into dentin K02.52 [facility] [place] [address] 01/14/2024 Brenna Saric Dental caries on pit and fissure surface penetrating into dentin K02.52 [facility] [address] [place] [address] 09/26/2023 Soraida Frausto Assessments Encounter Date Diagnosis (ICD Code) Assessment Notes Treatment Notes Treatment Clinical Notes Section Notes 11/19/2023 Dental caries on pit and fissure surface penetrating into dentin (ICD-10 - K02.52) 01/14/2024 Dental caries on pit and fissure surface penetrating into dentin (ICD-10 - K02.52) 09/18/2023 Dental caries on pit and fissure [...] T ADVANTAGE -termed 22 [address] [place] [address] [id number] JORDIN TYLER Self - patient is the insured 2 3 zMEDICAID CFC after PARAMOUNT -termed [address] [place] [address] [id number] JORDIN TYLER Self - patient is the insured 2 3 zDENTAL DQ PARAMOUNT -termed 22 [address] [place] [address] [id number] JORDIN TYLER Self - patient is the insured 2 3 zDental MEDICAID CFC after PARAMOUNT -termed 22 [address] [place] [address] [id number] JORDIN TYLER Self - patient is the insured 2 3 Dental [place] DQ [address] [place] [address] [id number] JORDIN TYLER Self - patient is the insured 4 Dental Wrap CFC [place] BCBS [address] [place] [address] [id number] JORDIN TYLER Self - patient is the insured 4
--- OUTSIDE RECORDS SUMMARY | 2024-08-14 00:12 | XMS_ITS | Clinical Summary ---
Author Organization [facility] Address [id number] [address] [place] [address] Care Team Providers Care Dial Maker Name Role Phone Unavailable Primary Care Provider Unavailabl e Allergies Active Allergy Reactions Criticality Noted Date Comments Amoxicillin 07/21/2024 Metoclopramide Hcl 07/21/2024 Medications [id number] c acid ( 19) 29 mg iron- [...] 11:59 PM EDT Hospital Encounter [facility] US Imaging [address] [place] [address] Abnormal ultrasound Discharge Disposition: Home 07/22/2024 Orders Only Maternal- Medicine at [facility] [address] [place] [address] Nely Sheldon, RN Encounter for follow-up ultrasound of anatomy (Primary Dx) 07/22/2024 Travel 07/21/2024 Abstract Maternal- Medicine at [facility] [address] [place] [address] External, Scanning Provider 07/21/2024 Orders Only Maternal- Medicine at [facility] [address] [place] [address] Chelsi Box RN Abnormal ultrasound (Primary Dx) [...] 09/03/2024 11:00 AM EDT Appointment [facility] US Imaging [address] [place] [address] Health Maintenance Due Date Last Done Comments Chlamydia Screening 2004 Depression Screening 2016 Tobacco Screening 2016 Adult BMI Screening 01/06/2022 DTaP,Tdap and Td Vaccines (1 - Tdap) 01/06/2023 Influenza Vaccine 10/06/2024 Medical Devices Not on file Procedures Procedure Name Priority Date/Time Associated Diagnosis Comments US [facility] COMPREHENSIVE ANATOMIC SURVEY Routine 07/22/2024 8:27 AM EDT Abnormal ultrasound ULTRASOUND OFFICE Routine 07/04/2024 3:3 1 PM EDT ULTRASOUND OFFICE Routine 05/27/2024 3:3 3 PM EDT from Last 3 Months Results * US [facility] COMPREHENSIVE ANATOMIC SURVEY (07/22/2024 8:27 AM EDT) Anatomical Region Laterality Modality OB-VACATION GUIDE Ultrasound 07/22/2024 7:46 AM EDT Narrative 07/22/2024 10:01 AM EDT NAME: JAYSON BRENNER : 2005 SEX: F Accession Number: [id number] ORDERING PHYSICIAN: ALLAN YEPEZ REFERRING PHYSICIAN: DOMINGUEZ HOGAN Coding ----- --------- Procedures 70266: Ultrasound, uterus, real time with image documentation, and maternal evaluation plus detailed anatomic examination, transabdominal approach;single or first gestation Indication ----- --------- Screening for Anatomic Survey , Screening for IUGR , Maternal anemia History ----- --------- OB History 4. Para 3 [id number] Maternal Assessment ----- --------- Physical Exam Height [...] EFW (oz) 5 oz EFW by: Hadlock ([id number]-NC-FL) Extended Tibia 42.4 mm 26w 2d 4% Cyndie Fibula 41.8 mm 25w 6d 18% Cyndie Radius 38.7 mm 12% Chitty Ulna 41.6 mm 27w 0d 5% Cyndie Criminal Justice Professor 5.6 mm CM 7.9 mm 81% Nicolaides [...] view. RVOT view. LVOT view. 3-vessel view. 2-ybfjsk-zpzhytv view. Situs. Aortic arch view. Bicaval view. [...] primary OB provider unless otherwise specified by [facility]. Procedure Note Allan Yepez MD - 07/22/2024 NAME: JAYSON BRENNER : 2005 SEX: F Accession Number: [id number] ORDERING PHYSICIAN: ALLAN YEPEZ REFERRING PHYSICIAN: DOMINGUEZ HOGAN Coding ----- --------- Procedures 06331: Ultrasound, uterus, real time with imagedocumentation, and maternal evaluation plus detailed anatomic examination, transabdominalapproach;single or first gestation Indication ----- --------- Screening for Anatomic Survey , Screening for IUGR , Maternal anemia History ----- --------- OB History 4. Para 3 [id number] Maternal Assessment ----- --------- Physical Exam Height [...] EFW (oz) 5 oz EFW by: Hadlock (OVL-IB-LK-FL) Extended Tibia 42.4 mm 26w 2d 4% Cyndie Fibula 41.8 mm 25w 6d 18% Cyndie Radius 38.7 mm 12% Chitty Ulna 41.6 mm 27w 0d 5% Cyndie Criminal Justice Professor 5.6 mm CM 7.9 mm 81% Nicolaides [...] 4-chamber view. RVOT view. LVOT view. 3-vessel view.6-eweief-sfhqjnh view. Situs. Aortic arch view. Bicaval view. [...] byprimary OB provider unless otherwise specified by [facility]. us Allan Yepez MD [facility] [place] ORDERABLES Final Resul t * Ultrasound [...] Name:Karla Kidd Payer ID:Not on file Group ID:[id number] Type:Not on file Address: [id number] [place] [id number]
--- OUTSIDE RECORDS SUMMARY | 2024-08-14 00:12 | XMS_ITS | Encounter Summary ---
Author Organization [facility] Address [address] [facility] [place] [address] Care Team Providers Care Ase Master Mechanic Name Role Phone Sadie Thomas MD Primary Care Provider [phone] Katharine Olivarez PODIATRIC PHYSICIAN Unavailable [phone] Encounter Details Date Type Department Care Team (Late st Contact Info) Description 06/04/2024 Abstract [facility] BCP OB [address] [facility] [place] [address] Jerry Wilson, DO [address] [facility] [place] [address] Social History Tobacco Use Types Packs/Day Years [...] often do you attend chur ch or yarsani services? Never 03/15/2023 Do you belong to any clubs o r organizations such as latter-day groups, unions, fraternal or athletic groups, or [...] Recorded Patient Health Questionnaire-2 Score 0 03/15/2023 [facility] of Occupat ional Health - [...] place to sleep or slept in a retirement (including now)? No 03/15/2023 Education Answer Date [...] Routine [facility] BCP OB [address] [facility] [place] [address] Jerry Wilson DO [address] [place] [address] documented as of this encounter Visit Diagnoses Not on filedocumented in this encounter Care Teams Ase Master Mechanic Relationship Specialty Start Date End Date Sadie Thomas MD [address] [place] [address] PCP - General Family Medicine 10/22/23 Katharine Olivarez PODIATRIC PHYSICIAN [address] [place] [address] Nurse Practitioner Family Medicine 10/22/23 documented as of this encounter
--- OUTSIDE RECORDS SUMMARY | 2024-08-14 00:12 | XMS_ITS | Encounter Summary ---
Author Organization [facility] Address [address] [place] [address] Care Team Providers Care Graphic Specialist Name Role Phone Sadie Thomas MD Primary Care Provider Katharine Olivarez IC DESIGNER CUSTOM Unavailable [phone] Encounter Details Date Type Department Care Team (Late st Contact Info) Description 06/19/2024 Abstract [facility] BCP OB [address] [facility] [place] [address] Saadia Heck LPN Social History Tobacco [...] often do you attend chur ch or zoroastrian services? Never 03/15/2023 Do you belong to any clubs o r organizations such as mandaeism groups, unions, fraternal or athletic groups, or [...] Recorded Patient Health Questionnaire-2 Score 0 03/15/2023 [facility] [place] of Occupat ional Health - Occupational Stress [...] BCP OB [address] [place] [address] Jerry Wilson, DO [address] [facility] [address] [place], [place] [address] documented as of this encounter Visit Diagnoses Not on filedocumented in this encounter Care Teams Graphic Specialist Relationship Specialty Start Date End Date Sadie Thomas MD [address] [place] [address] PCP - General Family Medicine 10/22/23 Katharine Olivarez NP [address] [place] [address] Nurse Practitioner Family Medicine 10/22/23 documented as of this encounter
--- OUTSIDE RECORDS SUMMARY | 2024-08-14 00:12 | XMS_ITS | Encounter Summary ---
Author Organization [facility] Address [address] [place] [address] Care Team Providers Care Director Franchise Sales Name Role Phone Unallocated, Noms Provider Primary Care Provi nani Sadie Thomas MD Primary Care Provider Katharine Olivarez DESIGNER AND PATTERNMAKER Unavailable [phone] Encounter Details Date Type Department Care Team (Late st Contact Info) Description 03/15/2023 Orders Only [facility] NB OB [address] [place] [address] [address] Unallocated, Noms Provider, [address] [place], [place] [id number] Social History Tobacco Use Types Packs/Day Years [...] Patient Health Questionnaire-2 Score 0 03/15/2023 [facility] of Occupat ional [facility] - Occupational Stress Questionnaire Answer [...] PM EDT Routine [facility] BCP OB [address] [facility] [place] [address] Jerry Wilson, DO [address] [facility] [address] [place], [place] [address] documented as of this encounter Procedures Procedure [...] on filedocumented in this encounter Care Teams Director Franchise Sales Relationship Specialty Start Date End Date Unallocated, Noms Provider, [address] [place] [address] PCP - General 07/19/22 10/21/23 Sadie Thomas MD [address] [place] [address] PCP - General Family Medicine 10/22/23 Katharine Olivarez NP [address] [place] [address] Nurse Practitioner Family Medicine 10/22/23 documented as of this encounter
--- OUTSIDE RECORDS SUMMARY | 2024-08-14 00:12 | XMS_ITS | Encounter Summary ---
Author Organization [facility] Address [address] [facility] [place] [address] Care Team Providers Care Commodities Requirements Analyst Name Role Phone Sadie Thomas MD Primary Care Provider [phone] Katharine Olivarez NP Unavailable [phone] Encounter Details Date Type Department Care Team (Late st Contact Info) Description 08/05/2024 Bamboo flowsheet [facility] BCP OB [address] [facility] [address] Holli Roque PA [address] [facility] [address] [place], [place] [address] Social History Tobacco Use Types Packs/Day Years [...] often do you attend chur ch or mormonism services? Never 03/15/2023 Do you belong to any clubs o r organizations such as orthodoxy groups, unions, fraternal or athletic groups, or [...] Recorded Patient Health Questionnaire-2 Score 0 03/15/2023 [facility] - Occupational Stress Questionnaire Answer [...] place to sleep or slept in a custodial (including now)? No 03/15/2023 Education Answer Date [...] EDT Routine [facility] BCP OB [address] [facility] [address] Jerry Wilson, DO [address] [place], [place] [address] documented as of this encounter Visit Diagnoses Not on filedocumented in this encounter Care Teams Commodities Requirements Analyst Relationship Specialty Start Date End Date Sadie Thomas MD [address] [place] [address] PCP - General Family Medicine 10/22/23 Katharine Olivarez NP [address] [place] [address] Nurse Practitioner Family Medicine 10/22/23 documented as of this encounter
--- OUTSIDE RECORDS SUMMARY | 2024-08-14 00:12 | XMS_ITS | Encounter Summary ---
Author Organization [facility] Address [address] [facility] [place] [address] Care Team Providers Care Motel Front Desk Clerk Name Role Phone Sadie Thomas MD Primary Care Provider [phone] Katharine Olivarez COAT PRESSER Unavailable [phone] Encounter Details Date Type Department Care Team (Late st Contact Info) Description 05/19/2024 Abstract [facility] BCP OB [address] [facility] [place] [address] Jerry Wilson, DO [address] [facility] [place] [address] Social History Tobacco Use Types Packs/Day Years [...] often do you attend chur ch or roman catholic services? Never 03/15/2023 Do you belong to any clubs o r organizations such as scientologist groups, unions, fraternal or athletic groups, or [...] place to sleep or slept in a alf (including now)? No 03/15/2023 Education Answer Date [...] [address] [facility] [address] Jerry Wilson DO [address] [place] [address] documented as of this encounter Visit Diagnoses Not on filedocumented in this encounter Care Teams Motel Front Desk Clerk Relationship Specialty Start Date End Date Sadie Thomas MD [address] [place] [address] PCP - General Family Medicine 10/22/23 Katharine Olivarez COAT PRESSER [address] [place] [address] Nurse Practitioner Family Medicine 10/22/23 documented as of this encounter
--- OUTSIDE RECORDS SUMMARY | 2024-08-14 00:12 | XMS_ITS | Encounter Summary ---
Author Organization [facility] Address [address] [facility] [place] [address] Care Team Providers Care Patient Carrier Name Role Phone Sadie Thomas MD Primary Care Provider [phone] Katharine Olivarez CAR AND YARD SUPERVISOR Unavailable [phone] Encounter Details Date Type Department Care Team (Late st Contact Info) Description 05/27/2024 Abstract [facility] OB [address] [place] [place] [address] Jerry Wilson, DO [address] [facility] [place] [address] Social History Tobacco Use Types Packs/Day Years [...] often do you attend chur ch or church services? Never 03/15/2023 Do you belong to any clubs o r organizations such as mormonism groups, unions, fraternal or athletic groups, or [...] place to sleep or slept in a mcc (including now)? No 03/15/2023 Education Answer Date [...] PM EDT Routine [facility] BCP OB [address] [place] [address] Jerry Wilson DO [address] [place] [address] documented as of this encounter Visit Diagnoses Not on filedocumented in this encounter Care Teams Patient Carrier Relationship Specialty Start Date End Date Sadie Thomas MD [address] [place] [address] PCP - General Family Medicine 10/22/23 Katharine Olivarez CAR AND YARD SUPERVISOR [address] [place] [address] Nurse Practitioner Family Medicine 10/22/23 documented as of this encounter
--- OUTSIDE RECORDS SUMMARY | 2024-08-14 00:15 | XMS_ITS | CCD ---
Author Organization [facility] Care Team Providers Care Patient Service Representative Name Role Phone WAN VASQUEZ Consulting Unavailable JUANCHO, DR RUIZ Primary Care Unavailable KUNAL FRANK Attending Unavailable KUNAL FRANK Admitting Unavailable CY HERNANDEZ Consulting Unavailable KUNAL FRANK Consulting Unavailable NONE, XXXX Primary Care Physician Holli Garvin Primary Care Physician Vijay PACHECO Primary Care Physician Kourtney PIRECE Unavailable [facility] Primary Care Physician Eamon Stahllocatmeseret, Noms [...] Snow Attending Unavailable Magalis Snow Admitting Unavailable Gwendolyn DO Magalis Cortes Attending Unavaila ble DO Magalis nSow Admitting Unavaila ble Aleshalocatmeseret CASE, Noms Provider Primary Care Provi nani John Paul Lovell MD Primary Care Provider Wil Rider MD Attending Provider Wil Rider Attending Unavailab Wil Loco Admitting Unavailab John Paul Duncan Primary Care Unavailable Sadie Thomas MD Primary Care Provider Mak Jordan NP Unavailable [phone] Eduardo WRAY Attending Unavailable Eduardo WRAY Attending Unavailable Unavailable Primary Care Provider Unavailjocelin e JERRY WILSON Referring Unavailable JERRY WILSON Attending Unavailable STEVE, JERRY Attending Unavailable JERRY WILSON Attending Unavailable STEVE, JERRY Attending Unavailable MAGALIS SNOW Attending Unavailable MAK JORDAN Attending Unavailable HOLLI ROQUE Attending Unavailable Allergies Allergy Classification Reported Allergen(s) Allergy Type Date of Onset Reaction(s) Facility (7 sources) No Known Medication Allergies; Translations: [No Known Medication Allergies] Propensity to adverse reactions (disorder) [facility] Repository (15 sources) Amoxicillin; Translations: [amoxicillin] Drug Allergy 5 Unknown (qualifier value) [facility] (3 sources) Metoclopramide; Translations: [METOCLOPRAMIDE HCL] Drug Allergy 5 [facility] Medications Current Medications Medication Drug Class(es) Dates Sig (Normalized) Sig (Original) acetaminophen 325 mg oral tablet (3 sources) Start: 09-11-2023 take 3 tablets by mouth every eight hours as needed for headache acetaminophen 325 mg Tab 975 mg = 3 tab(s), Oral, q8hr, PRN Headache, # 90 tab(s), Refills(s) 1, Pharmacy: [facility], 165.1, cm, 09/10/23 21:47:00 EDT, Height/Length Dosing, 84.5, kg, 09/10/23 21:47:00 EDT, Weight Dosing Start Date: 09/11/23 Status: Ordered amoxicillin 875 mg / clavulanate 125 mg oral tablet (1 source) Penicillin-class Antibacterial Start: 10-30-2022 End: 11-09-2022 Augmentin 875 mg-125 mg Tab 1 tab(s), Oral, q12hr for 10 day(s), 20 tab(s), Refill(s) 0, [facility]/pharmacy #[id number], 165.1, cm, 10/30/22 10:55:00 EDT, Height/Length [...] oral solution (1 source) alpha-Adrenergic Agonist, Uncompetitive Z-alfloo-E-asparta te Receptor Antagonist, Sigma-1 Agonist Start: 01-01-2023 End: 01-08-2023 take 5 mL by mouth every six hours brompheniramine/de xtromethorphan/PSE 2 mg-10 mg-30 mg/5 mL oral syrup 5 mL, Oral, q6hr for cold symptoms for 7 day(s), 140 mL, Refill(s) 0, [facility]/pharmacy #[id number], 165, cm, 01/01/23 15:53:00 EST, Height/Length Dosing, 77, kg, 01/01/23 15:53:00 EST, Weight Dosing Start Date: 01/01/23 Stop Date: 01/08/23 Status: Ordered cephalexin 500 mg oral capsule (4 sources) Cephalosporin Antibacterial Start: 08-05-2024 End: 08-15-2024 take 1 capsule by mouth in the morning cephalexin (Keflex) 500 MG capsule Indications: Right otitis media, unspecified otitis media type Take 1 capsule (500 mg) by mouth in the morning and 1 capsule (500 mg) before bedtime. Do all this for 10 days. 20 capsule 08/05/2024 08/15/2024 Active Start: 01-05-2022 End: 01-12-2022 take 1 capsule by mouth every twelve hours Keflex 500 mg Cap 500 mg = 1 cap(s), Oral, q12hr, X 7 day(s), # 14 cap(s), Refills(s) 0, [id number], 165, cm, 01/05/22 7:56:00 EST, Height/Length Dosing, 74.1, kg, 01/05/22 7:56:00 EST, Weight Dosing Start Date: 01/05/22 Stop Date: 01/12/22 Status: Ordered docusate sodium 100 mg oral capsule (3 sources) Start: 09-11-2023 take 1 capsule by mouth twice daily docusate sodium 100 mg Cap 100 mg = 1 cap(s), Oral, BID, # 30 cap(s), Refills(s) 1, Pharmacy: [facility], 165.1, cm, 09/10/23 21:47:00 EDT, Height/Length Dosing, 84.5, kg, 09/10/23 21:47:00 EDT, Weight Dosing Start Date: 09/11/23 Status: Ordered ferrous sulfate 325 mg oral tablet (12 sources) Start: 09-11-2023 ferrous sulfat e 325 mg Tab 325 mg = 1 tab(s), Oral, BIDWM, # 60 tab(s), Refills(s) 5, Pharmacy: [facility], 165.1, cm, 09/10/23 21:47:00 EDT, Height/Length Dosing, 84.5, kg, 09/10/23 21:47:00 EDT, Weight Dosing Start Date: 09/11/23 Status: Ordered Start: 06-09-2021 take 1 tablet by leslie th once daily Slow Fe (as elemental iron) 45 mg oral tablet, extended release 45 mg = 1 tab(s), Oral, Daily, # 30 tab(s), Refills(s) 1, [id number] 165.1, cm, 06/07/21 7:55:00 EDT, Height/Length Dosing, 83.6, kg, 06/07/21 7:55:00 EDT, Weight Dosing Start Date: 06/09/21 Status: Ordered take 5 mL by mouth i n the morning ferrous sulfate (FEOSOL) 300 mg (60 mg elemental iron)/5 mL syrup Take 5 mL (300 mg total) by mouth in the morning. Active ibuprofen 600 mg oral tablet (20 sources) Nonsteroidal Anti-inflammatory Drug Start: 09-11-2023 take 1 tablet by mouth every six hours as needed ibuprofen 600 mg Tab 600 mg = 1 tab(s), Oral, q6hr, PRN Other (see comment), # 60 tab(s), Refills(s) 1, Pharmacy: [facility], 165.1, cm, 09/10/23 21:47:00 EDT, Height/Length Dosing, 84.5, kg, 09/10/23 21:47:00 EDT, Weight Dosing Start Date: 09/11/23 Status: Ordered Start: 08-09-2022 take 1 tablet by leslie every six hours ibuprofen 600 mg Tab 600 mg = 1 tab(s), Oral, q6hr, # 40 tab(s), Refills(s) 0, Pharmacy: [facility] #[id number], 165.1, cm, 08/07/22 17:54:00 EDT, Height/Length Dosing, 84.5, kg, 08/07/22 17:54:00 EDT, Weight Dosing Start Date: 08/09/22 Status: Ordered Start: 06-09-2021 take 1 tablet by leslie every six hours ibuprofen 600 mg Tab 600 mg = 1 tab(s), Oral, q6hr, # 15 tab(s), Refills(s) 0, [id number], 165.1, cm, 06/07/21 7:55:00 EDT, Height/Length Dosing, 83.6, kg, 06/07/21 7:55:00 EDT, Weight Dosing Start Date: 06/09/21 Status: Ordered Start: 01-28-2020 take 1 tablet by leslie th every eight hours ibuprofen 600 mg Tab 600 mg = 1 tab(s), Oral, q8hr, # 42 tab(s), Refills(s) 1, Pharmacy: [facility] #[id number], 169, cm, 01/27/20 13:57:00 EST, Height/Length Dosing, 70.9, kg, 01/27/20 13:57:00 EST, Weight Dosing Start Date: 01/28/20 Status: Ordered naproxen 500 mg oral tablet (9 sources) Nonsteroidal Anti-inflammatory Drug Start: 09-14-2021 take 1 tablet by mouth twice daily as needed for pain Naprosyn 500 mg Tab 500 mg = 1 tab(s), Oral, BID, PRN Pain, # 20 tab(s), Refills(s) 0, [id number], 165, cm, 10/16/21 20:16:00 EDT, Height/Length [...] day(s), # 10 cap(s), Refills(s) 0, [id number], 165, cm, 02/13/23 14:25:00 EST, Height/Length Dosing, 69.5, kg, 02/13/23 14:25:00 EST, Weight Dosing Start Date: 02/13/23 Stop Date: 02/18/23 Status: Ordered penicillin v potassium 500 mg oral tablet (5 sources) Start: 10-16-2021 take 1 tablet by mouth every six hours penicillin V potassium 500 mg Tab 500 mg = 1 tab(s), Oral, q6hr, # 28 tab(s), Refills(s) 0, Pharmacy: [facility]/pharmacy #[id number], 165, cm, 10/16/21 20:16:00 EDT, Height/Length [...] day(s), # 30 tab(s), Refills(s) 0, [id number], 165.1, cm, 06/07/21 7:55:00 EDT, Height/Length Dosing, 83.6, kg, 06/07/21 7:55:00 EDT, Weight Dosing Start Date: 09/14/21 Stop Date: 09/24/21 Status: Ordered polysaccharide iron complex 391 mg oral capsule (8 sources) Start: 06-16-2024 take 1 capsule by mouth once daily iron polysaccharide 180 mg (as elemental iron) oral capsule 180 mg = 1 cap(s), Oral, Daily, # 30 cap(s), Refills(s) 0, Pharmacy: [facility], 165.1, cm, 09/10/23 21:47:00 EDT, Height/Length Dosing, [...] Daily 30 capsule 6 06/05/2024 07/05/2024 Active [id number] acid ( 19) 29 mg iron- 1 mg tablet,chewable (2 sources) pa014-c tyrell-folic acid ( 19) 29 mg iron- 1 mg tablet,chewable Chew 1 tablet and swallow in the morning. Active Vit-Fe Fumarate-FA ( Vitamins) 28-0.8 MG tablet (20 sources) Start: 05-09-2024 End: 05-09-2025 take 1 tablet by mouth once daily Vit-Fe Fumarate-FA ( Vitamins) 28-0.8 MG tablet Indications: Missed menses , , unspecified gestational age ([facility]) , Encounter for supervision of normal first in first trimester ([facility]) Take 1 tablet by mouth Daily 30 tablet 11 05/09/2024 05/09/2025 Active Start: 05-09-2024 End: 05-09-2025 take 1 tablet [...] day(s), # 30 supp, Refills(s) 0, Pharmacy: [facility]/pharmacy #[id number], 165, cm, 02/13/23 14:25:00 EST, Height/Length Dosing, 69.5, kg, 02/13/23 14:25:00 EST, Weight Dosing Start Date: 02/13/23 Stop Date: 02/18/23 Status: Ordered Start: 01-23-2023 take 25 mg rectal ro [place] every six hours as needed for nausea promethazine 25 mg Supp 25 mg = 1 supp, Rectal, q6hr, PRN for nausea/vomiting, # 12 supp, Refills(s) 0 Start Date: 01/23/23 Status: Ordered Start: 01-05-2022 take 1 tablet by leslie th three times daily promethazine 25 mg Tab 25 mg = 1 tab(s), Oral, TID, # 15 tab(s), Refills(s) 0, [id number], 165, cm, 01/05/22 7:56:00 EST, Height/Length Dosing, 74.1, kg, 01/05/22 7:56:00 EST, Weight Dosing Start Date: 01/05/22 Status: Ordered Zofran ODT 4 mg Tab-Dis (14 sources) Start: 02-13-2023 End: 02-15-2023 take 1 tablet by mouth every eight hours Zofran ODT 4 mg Tab-Dis 4 mg = 1 tab(s), Oral, q8hr, X 2 day(s), # 6 tab(s), Refills(s) 0, Pharmacy: [facility]/pharmacy #[id number], 165, cm, 02/13/23 14:25:00 EST, Height/Length [...] Nausea/Vomiting, # 20 tab(s), Refills(s) 0, Pharmacy: [facility] #[id number], 165.1, cm, 01/18/22 1:14:00 EST, Height/Length Dosing, 74.4, kg, 01/18/22 1:14:00 EST, Weight Dosing Start Date: 01/18/22 Status: Ordered Completed/Discontinued Medications Medication Drug Class(es) Dates Sig (Normalized) Sig (Original) [id number] 200 actuat albuterol 0.09 mg/actuat metered dose [...] breath or wheezing, 1 EA, Refill(s) 0, [facility] #[id number], 168.2, cm, 08/17/20 15:12:00 EDT, Height/Length Dosing, [...] day(s), # 28 tab(s), Refills(s) 0, Pharm[facility]: [id number], 165, cm, 10/16/21 20:16:00 EDT, Height/Length Dosing, 75.2, kg, 01/02/22 12:43:00 EST, Weight Dosing Start Date: 01/02/22 Stop Date: 01/09/22 Status: Ordered Start: 10-26-2020 take 1 tablet by leslie th every six hours as needed for nausea Reglan 10 mg Tab 10 mg = 1 tab(s), Oral, q6hr, PRN Nausea, # 10 tab(s), Refills(s) 0, Pharmacy: [facility] #[id number], 168, cm, 10/26/20 13:25:00 EDT, Height/Length Dosing, 75, kg, 10/26/20 13:25:00 EDT, Weight Dosing Start Date: 10/26/20 Status: Ordered ondansetron 4 mg disintegrating oral tablet (16 sources) Serotonin-3 Receptor Antagonist Start: 06-06-2024 End: [...] Nausea/Vomiting, # 6 tab(s), Refills(s) 0, Pharmacy: [id number], 168, cm, 10/26/20 13:25:00 EDT, Height/Length Dosing, 75, kg, 10/26/20 13:25:00 EDT, Weight Dosing Start Date: 10/26/20 Status: Ordered Start: 10-26-2020 take 1 tablet by leslie th every eight hours as needed for nausea ondansetron 8 mg Dis Tab 8 mg = 1 tab(s), Oral, q8hr, PRN Nausea/Vomiting, # 6 tab(s), Refills(s) 0, Pharmacy: [facility] #[id number], 168, cm, 10/26/20 13:25:00 EDT, Height/Length Dosing, 75, kg, 10/26/20 13:25:00 EDT, Weight Dosing Start Date: 10/26/20 Status: Ordered take 1 tablet by leslie th every eight hours as needed for nausea and vomiting ondansetron (ZOFRAN) 4 mg tablet Take 1 tablet (4 mg total) by mouth every 8 (eight) hours as needed for nausea or vomiting. Active Multivitamins with Folic Acid 1 mg Tab [...] trimester; Translations: [O09.33] Onset: 09-10-2023 Episodic Other complications of (1 source) ultrasound scan abnormal; Translations: [Abnormal ultrasonic finding on screening of mother] 07-21-2024 Episodic Other complications of (1 source) Abnormal ultrasonic finding on screening of mother; Translations: [Abnormal ultrasonic finding on screening of mother] Onset: 07-22-2024 Episodic Other infections; including parasitic (18 sources) [...] conditions (not mental disorders or infectious disease) (1 source) ultrasound scan abnormal 07-21-2024 Chronic Other screening for suspected conditions (not mental disorders or infectious disease) (9 sources) Procedure carried out on subject; Translations: [Encounter for screening, unspecified] Onset: 12-07-2022 Episodic Otitis media and related conditions (2 sources) Otitis media of right ear; Translations: [Otitis media, unspecified, right ear] 08-05-2024 Episodic Residual codes; unclassified (1 source) 8 [...] [24 weeks gestation of ] 06-24-2024 Episodic Residual codes; unclassified (2 sources) Gestation period, 28 weeks; Translations: [28 weeks gestation of ] 07-22-2024 Episodic Residual codes; unclassified (2 sources) Gestation period, 30 weeks; Translations: [30 weeks gestation of ] 08-05-2024 Episodic Short gestation; low weight; and growth retardation (4 sources) Tgwyx-peh-euqnp baby; Translations: [ small for gestational age, unspecified weight] 07-22-2024 Episodic Unclassified (4 sources) Age mother conceived [...] (20 sources) Onset: 09-02-2020 Resolved: 09-11-2023 03-24-2021 Unclassified (1 source) Patient encounter status 07-22-2024 Viral infection (2 sources) Disease caused by 2019-nCoV; Translations: [COVID-19] 10-16-2023 Episodic NEGATED: Highlighted row has been ruled out!Unclassified (20 sources) No known active problems 03-20-2023 Results Test Name Value Interpretation Reference Range Facility US OB BPP W NON-STRESS on 08-07-[address] [address] Ultrasound Report Signed Patient: JORDIN TYLER#: [id number] : 2005 Acct:[id number] Age/Sex: 19 / F ADM Date: 08/07/24 Loc: US Attending Dr: Holli Roque Ordering Physician: Holli Roque Date of Service: 08/07/24 Procedure(s): US OB BPP w non-stress Accession Number(s): [id number] cc: Holli Roque; Physician,Non-Staff M.D. The [place] [id number] Patient Name: JORDIN TYLER MRN: [facility]:[id number] date: 2005 Sex: F Assigned Patient Location: [facility] Current Patient Location: Accession/Order Number: [id number] Exam Date: 08/07/2024 19:26 Report Date: 08/07/2024 19:26 At the request of: HOLLI ROQUE Procedure: US OB BPP w non-stress Ultrasound [...] Castaneda M.D. 08/07/2024 7:26 PM Dictation Location: [place] [address] Electronically authenticated by: [id number] Y Date: 08/07/2024 19:26 Dictated By: Vijay Castaneda D.O. Signed By: 08/07/241928 DD/ 25 TD/TT: Exposure Machine Operator: [facility] Radiology, Radiologist, MD - 08/07/2024 [place] [address] Ultrasound Report Signed Patient: JORDIN TYLER MR#: [id number] : 2005 Acct:[id number] Age/Sex: 19 / F ADM Date: 08/07/24 Loc: US Attending Dr: Holli Roque Ordering Physician: Holli Roque Date of Service: 08/07/24 Procedure(s): US OB BPP w non-stress Accession Number(s): [id number] cc: Holli Roque; Physician,Non-Staff Christine [address] [address] Patient Name: JORDIN TYLER MRN: [facility]:[id number] date: 2005 Sex: F Assigned Patient Location: [facility] Current Patient Location: Accession/Order Number: [id number] Exam Date: 08/07/2024 19:26 Report Date: 08/07/2024 19:26 At the request of: HLOLI ROQEU Procedure: US OB BPP w non-stress Ultrasound [...] Castaneda M.D. 08/07/2024 7:26 PM Dictation Location: [place] [address] Electronically authenticated by: [id number] Y Date: 08/07/2024 19:26 Dictated By: Vijay Castaneda D.O. Signed By: 08/07/241928 DD/ 25 TD/TT: Exposure Machine Operator: [facility] Radiology Study observation (narrative) [facility] US OB BPP W NON-STRESS Ordered By: Radiologist Radiology on 08-07-2024 [facility] Work Phone: Urinalysis macro (dipstick) panel (U)on 07-22-2024 Bilirubin, UA Negative Negative - 4(70) +++ mg/dL [facility] Blood, UA Negative Negative - 50 Eliseo/mcL [facility] Clarity, UA Clear [facility] Color, UA Yellow [facility] Glucose, UA Negative Negative - 2000(110) ++++ mg/dL [facility] Interpretation and review of laboratory results Abnormal [facility] Ketones, UA Negative Negative - 160(16) ++++ mg/dL [facility] Leukocytes, UA Positive Negative - 500+++ Jeremisa/mcL [facility] Comment on above: small Nitrite, UA Negative Negative - Positive [facility] pH, UA 8.5 5 - 9 [facility] Protein, UA Negative Negative - 2000(20) ++++ mg/dL [facility] Spec Grav, UA 1.015 1 - 1.03 [facility] Urobilinogen, UA 0.2 0.2 - 12 mg/dL [facility] Ultrasound - Officeon 2024 Radiology Study observation (narrative) [facility] Radiology Study observation (narrative) [facility] Radiology Study observation (narrative) [facility] US OB GROWTHon 07-04-2024 [place] [address] Ultrasound Report Signed Patient: JORDIN TYLER MR#: [id number] : 2005 Acct:[id number] Age/Sex: 19 / F ADM Date: 07/04/24 Loc: US Attending Dr: Jerry Wilson D.O. Ordering Physician: Jerry Wilson D.O. Date of Service: 07/04/24 Procedure(s): US OB growth Accession Number(s): [id number] cc: Jerry Wilson D.O.; Physician,Non-Staff MArleth [address] [address] Patient Name: JORDIN TYLER MRN: [facility]:[id number] date: 2005 Sex: F Assigned Patient Location: Current Patient Location: US Accession/Order Number: [id number] Exam Date: 07/04/2024 09:40 Report Date: 07/04/2024 09:47 At the request of: JERRY WILSON DO Procedure: US OB growth ULTRASOUND [...] Roe M.D. 07/04/2024 9:47 AM Dictation Location: [place] [address] Electronically authenticated by: [id number] Y Date: 07/04/2024 09:47 Dictated By: Tavia Roe M.D. Signed By: 07/04/2449 DD/ TD/TT: Exposure Machine Operator: [facility] Radiology, Radiologist, MD - 07/04/2024 [place] [address] Ultrasound Report Signed Patient: JORDIN TYLER MR#: [id number] : 2005 Acct:[id number] Age/Sex: 19 / F ADM Date: 07/04/24 Loc: Attending Dr: Jerry Wilson D.O. Ordering Physician: Jerry Wilson D.O. Date of Service: 07/04/24 Procedure(s): US OB growth Accession Number(s): [id number] cc: Jerry Wilson D.O.; Physician,Non-Staff Christine The [address] [address] Patient Name: JORDIN TYLER MRN: [facility]:[id number] date: 2005 Sex: F Assigned Patient Location: US Current Patient Location: US Accession/Order Number: [id number] Exam Date: 07/04/2024 09:40 Report Date: 07/04/2024 09:47 At the request of: JERRY WILSON DO Procedure: US OB growth ULTRASOUND [...] Roe M.D. 07/04/2024 9:47 AM Dictation Location: [place] [address] Electronically authenticated by: [id number] Y Date: 07/04/2024 09:47 Dictated By: Tavia Roe M.D. Signed By: 07/04/2449 DD/ 6 TD/TT: Exposure Machine Operator: [facility] Radiology Study observation (narrative) [facility] US OB GROWTHOrdered By: Cathy ologthierno Radiology on 07-04-2024 [facility] Work Phone: Ultrasound - Officeon 2024 [facility] Family Medicine Office/Clini c Noteon 07-02-2024 Family Medicine Office/Clinic Note Family Medicine Office/Clinic Note Subjective Inmate at the [facility] today for: CC: ear pain Onset: Right [...] supporting structures) Assessment: this condition is acute Evaluation:worsening , progression of symptoms Plan: Monitoring: observe for [...] q12hr, # 20 cap(s), Refills(s) 0, Pharmacy: [facility], 165.1, cm, 06/19/24 15:04:00 EDT, Height/Length Dosing, [...] 1 mg Tab, 1 tab(s), Oral, Daily Normal [facility] Comment on above: Result Comment: Elec tronically Signed By: KAMALA TOUSSAINT, Eduardo Wright.br\Date and Time Signed: 07/02/24 16:43 EDT Urinalysis macro (dipstick) panel (U)on 06-24-2024 Bilirubin, UA Negative Negative - 4(70) +++ mg/dL [facility] Blood, UA Negative Negative - 50 Eliseo/mcL [facility] Clarity, UA Clear [facility] Color, UA Yellow [facility] Glucose, UA Negative Negative - 1999(110) ++++ mg/dL [facility] Interpretation and review of laboratory results Abnormal [facility] Ketones, UA Negative Negative - 160(16) ++++ mg/dL [facility] Leukocytes, UA Trace Negative - 500+++ Jeremias/mcL [facility] Nitrite, UA Negative Negative - Positive [facility] pH, UA 7.5 5 - 9 [facility] Protein, UA Negative Negative - 2000(20) ++++ mg/dL [facility] Spec Grav, UA 1.015 1 - 1.03 [facility] Urobilinogen, UA 0.2 0.2 - 12 mg/dL [facility] Half-Way Documentson 06-20-2024 Half-Way Documents Half-Way Documents Half-Way Nurse Visit 14 day Health Appraisal Date of Appraisal: _06/19/2024 Booked Date: _06/16/2024 Court or Release Date: RELEASE 07/16/2024 Did inmate come from another facility: NO PCP: NONE Specialist: DR STEVE HOLLOWAY Pharmacy: [facility] Have you ever had suicide [...] SHE ONLY WENT TO URGENT CARE IN [place]. I EXPLAINED THAT URGENT CARE WOULDN'T ORDER [...] you wish to attend AA Meetings? NO Half-Way Assessment 06/19/24 15:01:00 Half-Way Assessment Entered On: 06/19/2024 15:04 EDT Performed [...] Complaint : Health appraisal Preferred Lab : [facility] (more content not included)... Normal [facility] TB UA (CLEAN/CATCH) HIGH RAW SUGAR BOILER/BRAN RO IF IND.on 06-04-2024 BILIRUBIN URINE Negative NEGATIVE [facility] BLOOD URINE Negative NEGATIVE [facility] Clarity (U) CLEAR CLEAR [facility] Color (U) YELLOW YELLOW [facility] GLUCOSE URINE UA Negative NEGATIVE mg/dL [facility] Interpretation and review of laboratory results Abnormal [facility] Ketones Ql (U) Negative NEGATIVE mg/dL [facility] Leukocyte esterase Test strip Ql (U) TRACE Abnormal NEGATIVE [facility] NITRITE URINE Negative NEGATIVE [facility] pH (U) 6.0 [pH] 5.0 - 9.0 [facility] PROTEIN URINE Negative NEG/TRACE mg/dL [facility] SPECIFIC GRAVITY URINE 1.025 1.005 - 1.025 [facility] URINE MICROSCOPIC INDICATED YES [facility] UROBILINOGEN URINE 0.2 EU/dL 0.2 - 1.0 EU/dL [facility] US OB ANATOMYon 05-27-2024 [place] [address] Ultrasound Report Signed Patient: JORDIN TYLER MR#: [id number] : 2005 Acct:[id number] Age/Sex: 19 / F ADM Date: 05/27/24 Loc: US Attending Dr: Jerry Wilson D.O. Ordering Physician: Jerry Wilson D.O. Date of Service: 05/27/24 Procedure(s): US OB anatomy Accession Number(s): [id number] cc: Jerry Wilson D.O.; Physician,Non-Staff [facility] [place] [address] Patient Name: JORDIN TYLER MRN: [facility]:[id number] date: 2005 Sex: F Assigned Patient Location: US Current Patient Location: US Accession/Order Number: [id number] Exam Date: 05/27/2024 15:55 Report Date: 05/27/2024 [...] Vijay Castaneda M.D.05/27/2024 3:59 PM Dictation Location: [facility] Electronically authenticated by: [id number] Y Date: 05/27/2024 15:59 Dictated By: Vijay Castaneda D.O. Signed By: 05/27/24 1602 DD/ 1559 TD/TT: Exposure Machine Operator: [facility] Radiology, Radiologist, - 05/27/2024 [place] [address] Ultrasound Report Signed Patient: JORDIN TYLER MR#: [id number] : 2005 Acct:[id number] Age/Sex: 19 / F ADM Date: 05/27/24 Loc: US Attending Dr: Jerry Wilson D.O. Ordering Physician: Jerry Wilson D.O. Date of Service: 05/27/24 Procedure(s): US OB anatomy Accession Number(s): [id number] cc: Jerry Wilson D.O.; Physician,Non-Staff Christine The [address] [address] Patient Name: JORDIN TYLER MRN: [facility]:[id number] date: 2005 Sex: F Assigned Patient Location: Current Patient Location: Accession/Order Number: [id number] Exam Date: 05/27/2024 15:55 Report Date: 05/27/2024 [...] Vijay Castaneda M.D.05/27/2024 3:59 PM Dictation Location: [place] [address] Electronically authenticated by: [id number] Y Date: 05/27/2024 15:59 Dictated By: Vijay Castaneda D.O. Signed By: 05/27/24 1602 DD/ 1559 TD/TT: Exposure Machine Operator: [facility] Radiology Study observation (narrative) [facility] OB ANATOMYOrdered By: Abrahan burdick Radiology on 05-27-2024 [facility] Work Phone: OB CERVICAL LENGTHon 05-07 [place] [id number] Ultrasound Report Signed Patient: JORDIN TYLER MR#: [id number] : 2005 Acct:[id number] Age/Sex: 19 / F ADM Date: 05/27/24 Loc: US Attending Dr: Jerry Wilson D.O. Ordering Physician: Jerry Wilson D.O. Date of Service: 05/27/24 Procedure(s): US OB cervical length Accession Number(s): [id number] cc: Jerry Wilson D.O.; Physician,Non-Staff Christine The [place] [address] Patient Name: JORDIN TYLER MRN: [facility]:[id number] date: 2005 Sex: F Assigned Patient Location: US Current Patient Location: US Accession/Order Number: [id number] Exam Date: 05/27/2024 15:54 Report Date: 05/27/2024 15:54 At the request of: JERRY WILSON DO Procedure: US OB cervical length Ultrasound to assess for cervical length Cervical length 4.1 cm. This the cervix is closed. US/US OB cervical length IMPRESSION: 4.1 cm cervical length Impression dictated by: Vijay Castaneda M.D.05/27/2024 3:54 PM Dictation Location: [place] [address] Electronically authenticated by: [id number] Y Date: 05/27/2024 15:54 Dictated By: Vijay Castaneda D.O. Signed By: 05/27/24 1557 DD/ 1554 TD/TT: Exposure Machine Operator: [facility] Radiology, Radiologist, MD - 05/27/2024 The [place] [id number] Ultrasound Report Signed Patient: JORDIN TYLER MR#: [id number] : 2005 Acct:[id number] Age/Sex: 19 / F ADM Date: 05/27/24 Loc: US Attending Dr: Jerry Wilson D.O. Ordering Physician: Jerry Wilson D.O. Date of Service: 05/27/24 Procedure(s): US OB cervical length Accession Number(s): [id number] cc: Jerry Wilson D.O.; Physician,Non-Staff Christine [address] [address] Patient Name: JORDIN TYLER MRN: [facility]:[id number] date: 2005 Sex: F Assigned Patient Location: US Current Patient Location: US Accession/Order Number: [id number] Exam Date: 05/27/2024 15:54 Report Date: 05/27/2024 15:54 At the request of: JERRY WILSON DO Procedure: US OB cervical length Ultrasound to assess for cervical length Cervical length 4.1 cm. This the cervix is closed. US/US OB cervical length IMPRESSION: 4.1 cm cervical length Impression dictated by: Vijay Castaneda M.D.05/27/2024 3:54 PM Dictation Location: [place] [address] Electronically authenticated by: [id number] Y Date: 05/27/2024 15:54 Dictated By: Vijay Castaneda D.O. Signed By: 05/27/24 1557 DD/ 1554 TD/TT: Exposure Machine Operator: [facility] Radiology Study observation (narrative) [facility] US OB CERVICAL LENGTHOrdered By: Radiologist Radiology on 05-27-2024 [facility] Work Phone: Ultrasound - Officeon 2024 [facility] RECURRENT VAGINITIS (HTRX)on 05-23-2024 ATOPOBIUM VAGINAE 0 [facility] ATOPOBIUM VAGINAE Not detected [facility] BVAB 2,3 (BACTERIAL VAGINOSIS ASSOCIATED BACTERIA 2, 3); MOBILUNCUS SPP 0 [facility] BVAB 2,3 (BACTERIAL VAGINOSIS ASSOCIATED BACTERIA 2, 3); MOBILUNCUS SPP Not detected [facility] DUANE ALBICANS, PARAPSILOSIS, TROPICALIS 0 [facility] DUANE ALBICANS, PARAPSILOSIS, TROPICALIS Not detected [facility] DUANE GLABRATA 0 [facility] DUANE GLABRATA Not detected [facility] DUANE KRUSEI 0 [facility] DUANE KRUSEI Not [facility] CHLAMYDIA TRACHOMATIS 0 [address] [address] [facility] CHLAMYDIA TRACHOMATIS Not detected N [facility] GARDNERELLA VAGINALIS [address] [facility] GARDNERELLA VAGINALIS Not detected N [facility] MEGASPHAERA (TYPES 1, 2) 0 [facility] MEGASPHAERA (TYPES 1, 2) Not detected [facility] MYCOPLASMA GENITALIUM [address] [facility] MYCOPLASMA GENITALIUM Not detected N [facility] NEISSERIA GONORRHOEAE [address] [facility] NEISSERIA GONORRHOEAE Not detected N [facility] TRICHOMONAS VAGINALIS [address] [facility] TRICHOMONAS VAGINALIS Not detected N [facility] Urinalysis macro (dipstick) panel (U)on 05-22-2024 Bilirubin, UA Negative Negative - 4(70) +++ mg/dL [facility] Blood, UA Negative Negative - 50 Eliseo/mcL [facility] Clarity, UA Clear [facility] Color, UA Yellow [facility] Glucose, UA Negative Negative - 2000(110) ++++ mg/dL [facility] Interpretation and review of laboratory results Normal [facility] Ketones, UA Negative Negative - 160(16) ++++ mg/dL [facility] Leukocytes, UA Trace Negative - 500+++ Jeremias/mcL [facility] Nitrite, UA Negative Negative - Positive [facility] pH, UA 6 5 - 9 [facility] Protein, UA Negative Negative - 2000(20) ++++ mg/dL [facility] Spec Grav, UA 1.025 1 - 1.03 [facility] Urobilinogen, UA 0.2 0.2 - 12 mg/dL [facility] HCG ( test) Ql (U)o n 05-09-2024 Interpretation and review of laboratory results Abnormal [facility] Preg Test, Ur Positive Negative [facility] US OB LIMITED 1+ FETUSESon 0 05-09-2024 [...] II, MD, PHD at 11-May-2024 10:37:55 PM [facility] Normal Not Available Comment on above: Order Comment: US OB TRANSVAGINAL No LMP recorded. Ultrasound - Officeon 2024 [facility] Urinalysis macro (dipstick) panel (U)on 05-09-2024 Bilirubin, UA Negative Negative - 4(70) +++ mg/dL [facility] Blood, UA Negative Negative - 50 Eliseo/mcL [facility] Clarity, UA Clear [facility] Color, UA Yellow [facility] Glucose, UA Negative Negative - 1999(110) ++++ mg/dL [facility] Interpretation and review of laboratory results Abnormal [facility] Ketones, UA Negative Negative - 160(16) ++++ mg/dL [facility] Leukocytes, UA Positive Negative - 500+++ Jeremias/mcL [facility] Comment on above: small Nitrite, UA Negative Negative - Positive [facility] pH, UA 7 5 - 9 [facility] Protein, UA Negative Negative - 1999(20) ++++ mg/dL [facility] Spec Grav, UA 1.025 1 - 1.03 [facility] Urobilinogen, UA 0.2 0.2 - 12 mg/dL [facility] Chlamydia/Gonococcus, NAAon 01-12-2024 C. trachomatis rRNA TIM+probe Ql (Unsp spec) Negative Invalid Interpretation Code Negative [facility] Comment on above: Performed By: #### 1 [id number] #### [facility] [address] [place] [address] N. gonorrhoeae rRNA TIM+probe Ql (Unsp spec) Negative Invalid Interpretation Code Negative [facility] Comment on above: Result Comment: Perf ormed at: =G [facility] [address] TANIA Traore [id number] MD Rodriguez Briones Performed By: #### 1 [id number] #### [facility] [address] [place] [address] CBC w/Indiceson 09-12-2023 Basophilic stippling LM Ql (Bld) PRESENT Invalid Interpretation Code [facility] Comment on above: Performed By: #### 2 [id number] ####[facility] [address] [place] [address] Erythrocyte distribution width (RBC) [Ratio] 16.6 % High 10.9-14.2 [facility] Comment on above: Performed By: #### 2 [id number] ####[facility] [address] [place] [address] Hematocrit (Bld) [Volume fraction] 23.6 % Low 34.0-46.0 [facility] Comment on above: Performed By: #### 2 [id number] ####[facility] [address] [place] [address] Hemoglobin (Bld) [Mass/Vol] 7.6 g/dL Low 12.0-16.0 [facility] Comment on above: Performed By: #### 2 [id number] ####[facility] [address] [place] [address] Hypochromia Auto Ql (Bld) PRESENT Invalid Interpretation Code [facility] Comment on above: Performed By: #### 2 [id number] ####[facility] [address] [place] [address] MCH (RBC) [Entitic mass] 21.8 pg Low 27.0-34.0 [facility] Comment on above: Performed By: #### 2 914345 ####[facility] [address] [place] [address] MCHC (RBC) [Mass/Vol] 32.3 g/dL Normal 31.4-36.0 [facility] Comment on above: Performed By: #### 2 349206 ####[place] [address] [place] [address] MCV (RBC) [Entitic vol] 67.6 fL Low 80.0-100.0 [facility] Comment on above: Performed By: #### 2 966003 ####[place] [address] [place] [address] Microcytes Ql (Bld) PRESENT Invalid Interpretation Code [facility] Comment on above: Performed By: #### 2 096054 ####[address] [address] Platelet 202.0 E9/L Normal 150.0-500.0 [facility] Comment on above: Performed By: #### 2 982107 ####[address] [address] Platelet mean volume (Bld) [Entitic vol] 9.2 fL Normal 6.4-10.8 [facility] Comment on above: Performed By: #### 2 576894 ####[address] [address] Platelets Large LM Ql (Bld) PRESENT Invalid Interpretation Code [facility] Comment on above: Performed By: #### 2 [id number] ####[address] [address] Polychromasia LM Ql (Bld) PRESENT Invalid Interpretation Code [facility] Comment on above: Performed By: #### 2 506381 ####[address] [address] RBC (Bld) [#/Vol] 3.5 E12/L Low 4.3-5.9 [facility] Comment on above: Performed By: #### 2 299475 ####[address] [address] RBC size Nom (Bld) NORMAL Invalid Interpretation Code [facility] Comment on above: Performed By: #### 2 698367 ####[address] [place] [address] WBC corrected for nucl RBC Auto (Bld) [#/Vol] 10.0 E9/L Normal 4.0-11.0 [facility] Comment on above: Performed By: #### 2 296151 ####[facility] [address] [place] [address] HEMATOLOGYOrdered By: SYSTEM SYSTEM on 09-12-2023 Basophilic [...] Dr. ConradCPT code 85/60 Invalid Interpretation Code [facility] HemeManSS Inpatient Clinical Summaryon 09-12-2023 Inpatient Clinical Summary Inpatient Clinical Summary [place] [id number] Clinical Summary Person Information [facility] Age: 18 Years : 2005 Sex: Female PCP: NONE, XXXX Marital Status: Single Phone: [phone] Race: White Ethnicity: Non- or Language: Eritrean Visit Id: Visit Reason: INDUCED Speciality: Acuity: 1 PP Enc Type: Inpatient Med Service: Obstetrics Arrival: 09/10/2023 21:01:27 Discharge: 09/12/2023 18:05:00 Dispo Type: Home (Routine DC) Address: [address] [place] [address] [place] [id number] Provider Notes: Diagnosis: Anemia affecting , antepartum; [...] Follow up: With: Address: When: Magalis Snow [address] [place] [address] Nick [facility], [address] [address] Business (1) Within 6 weeks Patient Education Information: Care After Vaginal Delivery; Anemia Normal [facility] Inpatient Clinical Summary Inpatient Clinical Summary [address] [address] Clinical Summary Person Information Name: JORDIN TYLER Kristan/[facility] Age: 18 Years : 2005 Sex: Female PCP: NONE, XXXX Marital Status: Single Phone: [phone] Race: White Ethnicity: Non- or Language: Eritrean Visit Id: Visit Reason: INDUCED Speciality: Acuity: 1 PP Enc Type: Inpatient Med Service: Obstetrics Arrival: 09/10/2023 21:01:27 Discharge: Dispo Type: Address: Sebastián [facility] [address] [place] [id number] Provider Notes: Diagnosis: Anemia affecting , antepartum; [...] Referring Physician: Follow up: With: Address: When: Lucas WetzelModacruz [address] [place] [address] Business (1) Within 6 weeks Patient Education Information: Care After Vaginal Delivery; Anemia Normal [facility] Inpatient Patient Summaryon 09-12-2023 Inpatient Patient Summary Inpatient Patient Summary [address] [address] Patient Discharge Instructions PERSON INFORMATION Name: JORDIN TYLER Date of : 2005 Current Date: 09/12/2023 18:21:59 PHYSICIANS Admitting Physician: Magalis Snow DO Primary Care Physician: MONICA, XXXX PCP Phone Number: Comment: Discharge Diagnosis: [...] Follow up: With: Address: When: Lucas Wetzel, [place] [address] [place] [address] Business (1) Within 6 weeks In the event that this physician does not participate in your insurance network, please consult with your insurance company to find a nearby participating provider. Comment: JAYSON Suárez SHIANNE A, have received the attached patient education materials/instructio ns and have verbalized understanding. Patient Signature Date Clinican/Nurse Signature Date MEDICATION LIST New Medications [facility] 1987, [address] [facility] [place], [place] [id number], [phone] acetaminophen (acetaminophen 325 mg Tab) 3 Tablets [...] , Bernardino [place] PATIENT EDUCATION INFORMATION Instructions: Care After Vaginal [...] redness, swelling, (more content not included)... Normal [facility] Inpatient Patient Summary Inpatient Patient Summary [address] [address] Patient Discharge Instructions PERSON INFORMATION Name: ANGY TYLERANNTrip Wilson Date of : 2005 Current Date: 09/12/2023 08:48:13 PHYSICIANS Admitting Physician: Magalis Snow DO Primary Care Physician: MONICA, XXXX PCP Phone Number: Comment: Discharge Diagnosis: [...] Follow up: With: Address: When: Magalis Snow [facility] Lucas Lawrence[address] [address] Business (1) Within 6 weeks In the event that this physician does not participate in your insurance network, please consult with your insurance company to find a nearby participating provider. Comment: JAYSON Suárez SHIANNE A, have received the attached patient education materials/instructio ns and have verbalized understanding. Patient Signature Date Clinican/Nurse Signature Date MEDICATION LIST New Medications [facility] 1987, [address] [facility] [address] [place], [place] [id number], [phone] acetaminophen (acetaminophen 325 mg Tab) 3 Tablets [...] , Bernardino [place] PATIENT EDUCATION INFORMATION Instructions: Care After Vaginal [...] redness, swelling, (more content not included)... Normal [facility] Path. Reviewon 09-12-2023 Path Review Hypochromic microcytic anemia with anisocytosis rule out iron deficiency Invalid Interpretation Code [facility] Comment on above: Performed By: #### 1 [id number] #### [facility] [address] [place] [address] Surgical Pathology Reporton 09-12-2023 Surgical Pathology Report [facility] [address] [place] [address]- Surgical Pathology Report Collected Date/Time: 09/11/2023 05:58 [...] is scattered throughout the entire placental tissue. Deep Submergence Vehicle Crewmember portion is submitted in four cassettes: 1 - Cord and membrane 2-4 - Deep Submergence Vehicle Crewmember sections of placenta parenchyma (DC) DC:MCA Microscopic Description Microscopic examination performed unless gross only specified. Normal [facility] Comment on above: Performed By: #### 4 [id number] #### [facility] [address] [place] [address] Delivery Summaryon Delivery Summary Delivery Summary Delivery [...] 50 mcg/mL injectable solution, 100 mcg, Epidural dfgzvq19Naf [F], 50 mcg, Oral ropivacaine 0.2% injectable solution 10 mL, 18 mg, Epidural Normal [facility] Comment on above: Result Comment: Elec tronically Signed By: Magalis Snow DO\.br\Date and Time Signed: 09/11/23 05:43 EDT URINALYSISOrdered By: SYSTEM SYSTEM on 09-11-2023 Bilirubin Ql (U) Negative Normal Negativemg/ d L [facility] UA Auto SS Clarity (U) Clear (09/11/23 2:24 AM) Normal Clear [facility] UA Auto SS Color (U) Light-Yellow 1 (09/11/23 2:24 AM) Normal Yellow [facility] UA Auto SS Comment on above: Interpretive Data: M icroscopic readings are only performed on those samples that meet specific criteria set forth by [facility]. Glucose Ql (U) Negative Normal [...] Normal Negativemg/d L [facility] UA Auto SS pH (U) 7.0 *NA* (09/11/23 2:24 AM) Invalid Interpretation Code 5.0 - 9.0 [facility] UA Auto SS Protein Ql (U) Negative Normal Negativemg/d L [facility] UA Auto SS Specific gravity (U) [Rel density] 1.015 *NA* (09/11/23 2:24 AM) Invalid Interpretation Code 1.005 - 1.030 [facility] UA Auto SS Urobilinogen (U) [Mass/Vol] Negative Normal Negativemg/d L [facility] UA Auto SS URINALYSISOrdered By: Austin Cabrera on 09-11-2023 UA Spec Desc Mendoza (09/11/23 2:24 AM) Normal [facility] UA Auto SS ABO/Rhon 09-10-2023 ABO/Rh Positive Invalid Interpretation Code [facility] Comment on above: Performed By: #### 2 [id number] #### [facility] [address] [place] [address] ABO/Rh History Checkon 09-09 ABO/Rh History Check Verified Hx Blood Type Normal [facility] Comment on above: Performed By: #### 1 [id number] #### [facility] [address] [place] [address] ABSCon 09-10-2023 ABSC Gel Interp Negative Normal [facility] Comment on above: Performed By: #### 1 [id number] #### [facility] [address] [place] [address] BLOOD BANKOrdered By: Austin Cabrera on 09-10-2023 ABO/Rh Interp Positive Invalid Interpretation Code [facility] BB Subsection ABSC Gel Interp Negative (09/10/23 9:43 PM) Normal [facility] BB Subsection Blood Bank ID#on 09-10-2023 BBID# [id number] Invalid Interpretation Code [facility] Comment on above: Performed By: #### 1 [id number] #### [facility] [address] [place] [address] CBC w/Indiceson 09-10-2023 Erythrocyte distribution width (RBC) [Ratio] 17.0 % High 10.9-14.2 [facility] Comment on above: Performed By: #### 2 [id number] #### [facility] [address] [place] [address] Hematocrit (Bld) [Volume fraction] 24.1 % Low 34.0-46.0 [facility] Comment on above: Performed By: #### 2 [id number] #### [facility] [address] [place] [address] Hemoglobin (Bld) [Mass/Vol] 7.7 g/dL Low 12.0-16.0 [facility] Comment on above: Performed By: #### 2 890226 #### [facility] [address] [place] [address] Hypochromia Auto Ql (Bld) PRESENT Invalid Interpretation Code [facility] Comment on above: Performed By: #### 2 275832 #### [facility] [address] [place] [address] MCH (RBC) [Entitic mass] 21.4 pg Low 27.0-34.0 [facility] Comment on above: Performed By: #### 2 277115 #### [facility] [address] [place] [address] MCHC (RBC) [Mass/Vol] 31.8 g/dL Normal 31.4-36.0 [facility] Comment on above: Performed By: #### 2 737031 #### [facility] [address] [place] [address] MCV (RBC) [Entitic vol] 67.4 fL Low 80.0-100.0 [facility] Comment on above: Performed By: #### 2 456362 #### [facility] [address] [place] [address] Microcytes Ql (Bld) PRESENT Invalid Interpretation Code [facility] Comment on above: Performed By: #### 2 [id number] #### [facility] [address] [place] [address] Platelet mean volume (Bld) [Entitic vol] 8.8 fL Normal 6.4-10.8 [facility] Comment on above: Performed By: #### 2 682339 #### [facility] [address] [place] [address] Platelets (Bld) [#/Vol] 209.0 E9/L Normal 150.0-500.0 [facility] Comment on above: Performed By: #### 2 [id number] #### [facility] [address] [place] [address] RBC (Bld) [#/Vol] 3.6 E12/L Low 4.3-5.9 [facility] Comment on above: Performed By: #### 2 687359 #### [facility] [address] [place] [address] WBC corrected for nucl RBC Auto (Bld) [#/Vol] 8.9 E9/L Normal 4.0-11.0 [facility] Comment on above: Performed By: #### 2 [id number] #### [facility] [address] [place] [address] RBC size Nom (Bld) NORMAL Invalid Interpretation Code [facility] Comment on above: Performed By: #### 2 [id number] #### [facility] [address] [place], [place] [address] HEMATOLOGYOrdered By: SYSTEM SYSTEM on 09-10-2023 Erythrocyte [...] Strep colonization by PCR Negative Normal Negative [facility] Comment on above: Performed By: #### 4 [id number] #### [facility] [address] [place] [address] C Urineon 08-31-2023 Bacteria identified Cx Nom [...] Locations R1: This test was performed at: [facility], [address] [place] [address], [address]- , , Normal [facility] Comment on above: Performed By: #### 2 145136 #### [facility] [address] [place] [address] URINALYSISOrdered By: SYSTEM SYSTEM on 08-29-2023 Bilirubin [...] that meet specific criteria set forth by [facility]. Epithelial cells.squamous Auto (Urine sed) [...] F [facility] UA Auto SS URINALYSISOrdered By: Therethien a Elmo on 08-29-2023 UA Spec Desc Clean Catch (08/29/23 2:55 PM) Normal [facility] UA Auto SS Coding Summary.on 07-25-2023 Coding Summary. WEPHDqzt91YJr9fHo+PG hlYWQ+CL6RPQNwJ91zbO GuoG1sC1HBTPeVUjyvRO INCHnQDsThfrTiGF2odM NjZXJu IC8+NV9fKVZcLwctjNQd g2O0hBK4R67cgg1lAWry xUL1ZRZiTiWnloebj5ph pMr1ZXwpBvqsSaDs DTTocN53TOL4cO21Zn87 yHSeqZWmg7sclBm2AgNd TYTsCMQ8wJxvEPspx8Ad JEGgV79huTVyp7O7 IGNvbGxhcHNlOyBlbXB0 wJ1bEObbqnnbr5ifuquk Evj8bw15rJZjg5E1nVK0 A7MyxhF9HJDygKRb EfwluLJIkG1ypiosu0pp kyeyXgEaOFGmFVd8TRa3 BRNboTqiHqXqOY37ZWZ5 LFWxijCvY7FeQJZd hAftNeM0y0P9Jw5SD0QM MfbgB9HGYDGSOOhtjPH+ DN12av17H1CeZookGoz8 VJRaZIM3aBD8hG0m IPVdXXzar1A1wWK9V4Eo nyHass5yg1siQSPjXOwn I59gzVPhp5O4NIEfoFU8 BVKboLygDjYoiY74 Oyc+WFSutBrhe6WqAcva e2gqs5nzaJa3FcelBLUe cqKyvQpfWAG6k4MnOq6v GFYvyEN5hUM0yX6i MoYfIpS5TUquH523WmGz gJGnOwumE16tS8RpgLP+ BNNcHfm6FXPxaWquIC3h Y2QrEFGjtgvrfQKt iIvyLN1wWGZmbwmwAKSs yI3xBZTrA1j9BfRnJoJ7 ZJddU5AoVFDsxjroVh95 dD2tWcUbVgM2OSmu O0PrcrF6ESWzrZQaFFgp XKQ9I19fs7T8PIZrTUEr SOW6qXY0qB3drAbuaudm bGVmdDsgdmVydGlj GCeyUTxxH091UKCzgHxo PkNvZGluZyBEYXRlOiAg MDYvMTkvMjAyNDwvdGQ+ JRFrDJV2zJpkPZBm sXYmAXbpBj5ouLgnqRmn QL3uMRYkwkyyFKDecY9n PGKodYJmhVebKF8tJUBe focbm883IyBaCKE7 ZWMldWSvM8SarD9zIjRi ZSBdHRIcE4MwjPMjMCzb Y251EQzvMzE0ZAZrhlNn E4LqNDUqoAdxNxD7 h6A1Bq6Pk9AiportU2Uf qVXfJbVmMutpITt7R0Xj PjwvdHI+IZ31HXYjRC98 HIw9VIC2rIjtUWgi WPXuU9IawR2fRqFqTWYc ZGRkOyc+PHRhYmxlIHdp ZHRoPScxMDAlJyBzdHls IU8zFu6jCKUwESLs xItdlGTjPvQkl3rnSPJv NNbdGA8qdRqqB7ExzFG6 RVJpv1j6Oy98Q35zR5Zh dXA+WJDbwLZ0lZL6 hJ8eDaOoIfK9XVwcL656 CfMkbAXpOqjox6pir8aj mKg3YmF8PEGpsqPbiLpf CMH4u2MwPb38P01k IHdpZHRoPSIxNSUiIHZh aVspqw3nnY4oGr2+PGNv xEZ3rFR7kM1bWtDuHbT2 PDybP432LtAxsTXl Kujkp6wvn7tcdSn6LsMq SMPpixOwaAoyCOH7q5Ns Rk51X7XmtVzae9MbVtb6 mw09jRAxs8C7tPC9 W0UuALFlzsecdQPztZiv PL5eXKJtotdjMLZxnV4j TIUhX0k1YjBpGjP2RUug E1OnkcB9PIRohACf ARFofXXEgF5ynuldz4aa zgdvFyOqLIYsONp4IOa6 MXFjeMbsYtDaJAE3HpC3 JIP2gHYsoM6tqOny xoqzoY9cNze+GHT1aHIn uYCFMY0sUlchwPX+PHRk QET3eTjzGAbeYSEqvZ8w OQLhM2v1AtXpFlM2 VCupQ0NihbT0CUFxeJQp DGXtoYTNvE5vwgyku3vk caoxFzUcSAZmAOn1XCs8 LWFsaWduOiBsZWZ0 MxI5CDU9yRMyfH9zlFbr qjyfsO8wPkk+QmlydGgg PHE6KOs6L0AmKks7USYw rIusBL0ckFGtGUzx To0giXdgsMmlQF7oTIJc veado300JvLso3bgICFb lFBfVBgpZBP5M65wm0L5 QVMgYXBgCCG7lFR6 nV5wzFufxvuzoVKtwRkg taGunTimEUyuRJqhS570 MNFwuXdrSaJcCVs9V5Hj Znk1FCZksOxeNC2e lCXvOTnvDr2wjCvfaWpz JV3dOBKocdkzp912XiSk f8czRIEpwDUzKEanQMF6 U59dq2B7FZMoERWp OCD7qKS0eH5uyDgcpedt bGVmdDsgdmVydGljYWwt XCslD293IICfjRryTdPr jRc0L0RaPzm1HSRx rHdhPU2hcQVaAUmxEu7b qSwdkXpzFV4pOLTueybc v202XwYio5apFTHscIUu POhzMHP0R33ek9E3 KDSbWHSiSSB7aDR5fY1u bGlnbjogbGVmdDsgdmVy lFzvEHowPZmmA308YVLw cDsnPlBhdGllbnQg MWpfPJl8E9NcXdditOK+ SJ66KWPeYV53pQSkiKMv c2pauXy0DcBeKFSdRCH4 zXikHMcyx8UuHNLt F68neISjw9R5LRPskWdg bDHcLfCveUD7lW1hVAvv kilyx6ujpsynMtndm4re vu75lW22T70qIImo ZHRoPSIzMCUiIHZhbGln wi3geV9wTd1+PGNvbCB3 cKC9yZ0fVLZlTmU0GIqf H235QfKsgLJbTwgq t7vsy7emeZt3VgE8XZIn kxYfoFtiXZD3r8AuVj62 Z34yUCijMDWdKXBuXAJu VGElaFpaae5mxS4b Ii8+ZRNgwAJ0xAJ1pG7t FgVgJlH1DUumJ570DdXa kXInZlsuM08oV4UkqUX+ PDMfSle1HJQhgVwt QA6omENfMBtxFs4xVMV7 FdSfPcEuVUgwE3AbJNYb lbbwskstbJV1KIXrCATz dT69Vt0ywBxzQMYy wOGIwM5uqibkx2degpcc NqKrQRSvXXm6TPr3GWGr jHoaUqLaURD3UqY2BQM5 fKVroK4opCfykaog oN3lG0HrNWXlyiyqTv52 uG7vLaOvQrN8OLhrWrj+ L7xHQcADCSUVZEvYSp2X TNX2J3EjLbu7QQXc lWmkUH9qmDXnGWdhPj1a wWpgxIxsLG5kNTPehyaw LHJbkH6cEFTkxKMoeSoe DA4lNNJzcsmyh780 PaAiJPU2IVEaeQEcV7Wy hV7wYaLsEKAyCQLkC5Hp tVRdMRylK841SYueAoU7 DRFqppXhU8KgNJWb pVszCfZ9b7A7Sm0hXx1y Ja0oJPP2JC85MY32rVCx t1T4dQW2N9TbHDSibhzo tdoylMJ7QOFpFIBz hT58qINjSNawKj4ab4V4 z324PVImUOPczM74Zg8o tAnuMPDdfOCHjU1lzeqb j5hpztvoPgHfUKPg YDa7BEz7IBPxlJcrTaMg AXU2KdX6KFJ4uRFdsN7s sMydfjtifL5rVyo+MTkg BRZjzkC3C4NiBqx0 GLWbdFenCJ2wiOOeWHwb Kf6slQthuLhyNK3yYSXu tmdoLISbyY0aAHNyjYVl lHoyUK0mAXDtwxpl l593JeTvKYQ8JFFchKJa R1LwgA9nBvJtXHQiWMMl I9GfmJHiKSvbR561ZYav HwN4KKKytnTyB2Ca BQXccAiiLyG7t9Q0Bx2F HX6koTM2Y3IfIqx8OIUw vGmuMR3aiMWtFSqcPl8x zKbanVprVH5gUUTn abdtTYKfoY3uMMHklODp rKlwOR2oNGPqeamen367 AtAqWFY7ALXuqLKaV8Ce aP7gZjDmZDDgYGEd V0UwzAOdKOahT596BYmf TbP2KOTgxkEhQ4QmMYLa hBgxEnC1g0X3Tb2VYlWE muqhP6G5U5SdUjwx dHI+XG27YMVvPV80vDCn aTNdi7qweIt4ObVpGCSv DPP6vUfhWNwzv1LxPHNh V25bsWMln5R3HCDp sDpwjVIwXgLauLS9xN8v RZlhasahr3uynxkiGuze q0zcsu16dZ53A01cMRlu ZHRoPSIzMCUiIHZh nMfifn4huQ4gXa9+PGNv gGX8vVG3lL4eHpFeZyH3 XJcbS325WrHqiMRbUggv j4pyh1wlkEx4PwDe XBCxipIgcXmaWEQ0u7Wv Mv72J16aGTmrWMJmAGWm PAPxTZWudEtblp0puC2r Ii8+DN7ta5lnib21 aM77gDY+QBLrURW0tWhi CNqpVWPtxB5gVDqpKbZ1 NHFzXrVbxP47bNWkQWsq Rm0uaTbirGzcEA6y XEFwbsngs255CkOrb1vh UFBtbYZmSHhbNBF4Z65x l3D8JHCtPWWpKQZ2sIS8 fR4esRwmvmhobUTm dDsgdmVydGljYWwtYWxp T972SRYabRudIzLoxTXa C1fmzxTENB5sTkvlgYU+ IGWnWBE8sSmuIMoq XGLxxK8fAYZbM2w2MnVl JtA3XIoqU1CrqeI6EWXy zAYbEOWadAQWqL5wnwia o8xposeaWvNkYTKs DFf6COk9GBJzeTtaIbUn DTD2BeQ7GRR4gOWjeS0f eXcpfxqbjO5mRbe+RklO OjwvdGQ+PHRkIHN0 iPqmILceRCLmrQ3wKCIh A2s7VqDgWeF7DFwnZ3Aq afB2MJRyePPuTQJrqWQG jI8zcvllc0bmhihq MjQtZZHkGWs1LMe6MKSo aUedYgQpNUR8LtW7GAA6 oNAdyH2siPlbcbohbC6l Oyc+TVJOOjwvdGQ+ GVNcLXI7aRxaFMhkEZOp nD3sLFEyA7n3DiEbHrV4 UBgtP1WpluJ2SGLzqWPr IHFfuWSGwE3tewzz g8owbluhFhLhLEDrDWr8 RQj6CULouXxpRxAgIUM8 MkB6NSL3fNVysS0ilUzd ugixsK5hQuy+UGF5 XJL1TN93FE37V2HpZghz dGFibGU+PHRhYmxlIHdp ZHRoPScxMDAlJyBzdHls XF0fJq8gMCRoQYGp bGxhcHNlOiBjb (more content not included)... [facility] C Urineon 07-21-2023 Bacteria identified Cx [...] Locations R1: This test was performed at: [facility], [address] [place] [address], [facility]- , , [facility] Comment on above: Performed By: #### 2 [id number] #### [facility] [address] [place] [address] Nursing Assessmenton 024 Nursing Assessment [id number]#1.00TIFF [facility] Consent for Treatmenton 07-06 Consent for Treatment [id number] #1.00TIFF [facility] Discharge Instructionson Discharge Instructions [id number] #1.00TIFF [facility] Inpatient Clinical Summaryon 06-13-2024 Inpatient Clinical Summary [address] [address] Clinical Summary Person Information Name: JORDIN TYLER Kristan/[place] Age: 18 Years : 2005 Sex: Female PCP: MARK STONE Marital Status: Single Phone: [phone] Race: White Ethnicity: Non- or Language: Eritrean Visit Id: Visit Reason: ABD PAIN Speciality: Acuity: Obs Enc Type: OB Triage Med Service: Obstetrics Arrival: 07/19/2023 06:03:39 Discharge: 07/19/2023 07:45:00 Dispo Type: Home (Routine DC) Address: [address] [place] [address] [address] [facility] [id number] Provider Notes: Diagnosis: Problems Active (12/20/2022) 36 [...] Physician: Follow up: With: Address: When: Magalis Gwendolyn Hany Lucas [facility] [address] [place] [address] Hubub (1) In 6 days 07/25/2023 Comments: Call for any problems. Call physician if symptoms worsen Return for contractions closer, longer, harder Return for decreased movement Return if ruptured membranes or vaginal bleeding Patient Education Information: Normal [facility] Inpatient Patient Summaryon 07-19-2023 Inpatient Patient Summary [address] [address] Patient Discharge Instructions PERSON INFORMATION Name: JORDIN TYLER Date of : 2005 Current Date: 07/19/2023 08:19:52 PHYSICIANS Admitting Physician: Magalis Snow DO Primary Care Physician: MARK STONE PCP Phone Number: Comment: Discharge Diagnosis: Condition [...] results: Follow up: With: Address: When: Magalis Gwendolyn Hany Lucas [facility] [address] [place] [address] Hubub (1) In 6 days 07/25/2023 Comments: Call [...] You may receive a survey from [employer] asking you to rate your care experience. [...] signed up for this yet, please contact [email or web address] at [phone] to get signed up today. NGUYEN Award [...] QR code below. Thank you for choosing [facility] Normal [facility] Insurance Correspondence Off ice07-19-2023 Insurance Correspondence Office [id number] #1.00TIFF Normal [facility] UA with Cult Rflxon 07-19-19 24 Bilirubin Ql (U) Negative Normal Negative [facility] Comment on above: Performed By: #### 4 [id number] #### [facility] [address] [place] [address] Clarity (U) Clear Normal Clear [facility] Comment on above: Performed By: #### 4 [id number] #### [facility] [address] [place] [address] Color (U) Light-Yellow Normal Yellow [facility] Comment on above: Result Comment: Micr oscopic readings are only performed on those samples that meet specific criteria set forth by [facility]. Performed By: #### 4 [id number] #### [facility] [address] [place] [address] Epithelial cells.squamous Auto (Urine sed) [#/Area] 5-8 Invalid Interpretation Code [facility] Comment on above: Performed By: #### 4 [id number] #### [facility] [address] [place] [address] Glucose Ql (U) Negative Normal Negative [facility] Comment on above: Performed By: #### 4 [id number] #### [facility] [address] [place] [address] Hemoglobin Auto test strip (U) [Mass/Vol] Negative Normal Negative [facility] Comment on above: Performed By: #### 4 [id number] #### [facility] [address] [place] [address] Ketones Auto test strip Ql (U) Negative Normal Negative [facility] Comment on above: Performed By: #### 4 [id number] #### [facility] [address] [place] [address] Leukocyte esterase Auto test strip Ql (U) 250 Jeremias/uL Abnormal Negative [facility] Comment on above: Performed By: #### 4 [id number] #### [facility] [address] [place] [address] Mucus Auto Ql (U) Trace Normal Negative [facility] Comment on above: Performed By: #### 4 [id number] #### [facility] [address] [place] [address] Nitrite Auto test strip Ql (U) Negative Normal Negative [facility] Comment on above: Performed By: #### 4 [id number] #### [facility] [address] [place] [address] pH (U) 6.5 [pH] Invalid Interpretation Code 5.0-9.0 [facility] Comment on above: Performed By: #### 4 [id number] #### [facility] [address] [place] [address] Protein Ql (U) Negative Normal Negative [facility] Comment on above: Performed By: #### 4 [id number] #### [facility] [address] [place] [address] RBC Ql (U) 0-3 Normal 0-3 [facility] Comment on above: Performed By: #### 4 [id number] #### [facility] [address] [place] [address] Specific gravity (U) [Rel density] 1.019 Invalid Interpretation Code 1.005-1.030 [facility] Comment on above: Performed By: #### 4 [id number] #### [facility] [address] [place] [id number] Urobilinogen (U) [Mass/Vol] Negative Normal Negative [facility] Comment on above: Performed By: #### 4 [id number] #### [facility] [address] [place] [id number] WBC Auto (Urine sed) [#/Area] 0-5 Normal 0-5 [facility] Comment on above: Performed By: #### 4 [id number] #### [facility] [address] [place] [address] Type of Urine collection method Clean Catch Normal [facility] Comment on above: Performed By: #### 4 [id number] #### [facility] [address] [place] [address] URINALYSISOrdered By: SYSTEM SYSTEM on 07-19-2023 Bilirubin Ql (U) Negative Normal Negativemg/ d L [facility] [place]A Auto SS Clarity (U) Clear (07/19/23 6:34 AM) Normal Clear [facility] UA Auto SS Color (U) Light-Yellow 1 (07/19/23 6:34 AM) Normal Yellow [facility] UA Auto SS Comment on above: Interpretive Data: M icroscopic readings are only performed on those samples that meet specific criteria set forth by [facility]. Epithelial cells.squamous Auto (Urine sed) [#/Area] 5-8 graded/HPF Invalid Interpretation Code [facility] UA Auto SS Glucose Ql (U) Negative Normal Negativemg/d L [facility] UA Auto SS Hemoglobin Auto test strip (U) [Mass/Vol] Negative Normal Negativemg/d L [facility] UA Auto SS Ketones Auto test strip Ql (U) Negative Normal Negativemg/d L [facility] UA Auto SS Leukocyte esterase Auto test strip Ql (U) 250 Jeremias/uL Jeremias/uL Invalid Interpretation Code NegativeLeu/ uL [facility] UA Auto SS Mucus Auto Ql (U) Trace graded/LPF Normal Negati vegrad ed/LPF [facility] UA Auto SS Nitrite Auto test strip Ql (U) Negative Normal Negativemg/d L [facility] UA Auto SS pH (U) 6.5 *NA* (07/19/23 6:34 AM) Invalid Interpretation Code 5.0 - 9.0 [facility] UA Auto SS Protein Ql (U) Negative Normal Negativemg/d L [facility] UA Auto SS RBC Ql (U) 0-3 graded/HPF Normal 0-3graded/HP F [facility] UA Auto SS Specific gravity (U) [Rel density] 1.019 *NA* (07/19/23 6:34 AM) Invalid Interpretation Code 1.005 - 1.030 [facility] UA Auto SS Urobilinogen (U) [Mass/Vol] Negative Normal Negativemg/d L [facility] UA Auto SS WBC Auto (Urine sed) [#/Area] 0-5 graded/HPF Normal 0-5graded/HP F [facility] UA Auto SS URINALYSISOrdered By: Kristy Wallace on 07-19-2023 UA Spec Desc Clean Catch (07/19/23 6:34 AM) Normal [facility] UA Auto SS C Urineon 07-11-2023 Bacteria [...] Locations R1: This test was performed at: [facility], [address] [place] [address], [address]- , [place], Normal [facility] Comment on above: Performed By: #### 2 [id number] #### [facility] [address] [place] [address] HIV Screen 4th Generation wR fxon 07-11-2023 HIV 1+2 Ab+HIV1 p24 Ag IA Ql Non-Reactive Invalid Interpretation Code Non Reactive [facility] Comment on above: Result Comment: HIV Negative HIV-1/HIV-2 antibodies and HIV-1 p24 antigen were NOT detected. There is no laboratory evidence of HIV infection. Performed at: [address] [id number] PhD Jomar Verma Performed By: #### 9 [id number] #### [facility] [address] [place] [address] Hep Bs Agon 07-11-2023 HBV surface Ag IA Ql Negative Invalid Interpretation Code Negative [facility] Comment on above: Result Comment: Perf ormed at: [address] [id number] PhD Jomar Verma Performed By: #### 2 [id number] #### [facility] [address] [place] [address] RPR with Conf Rfxon 07-11-19 24 Reagin Ab RPR Ql (S) Non-Reactive Invalid Interpretation Code Non Reactive [facility] Comment on above: Result Comment: Perf ormed at: [address] [id number] PhD Jomar Verma Performed By: #### 1 [id number] #### [facility] [address] [place] [address] ABO/Rhon 07-09-2023 ABO/Rh Positive Invalid Interpretation Code [facility] Comment on above: Performed By: #### 2 [id number] #### [facility] [address] [place] [address] ABSCon 07-09-2023 ABSC Gel Interp Negative Normal [facility] Comment on above: Performed By: #### 1 [id number] #### [facility] [address] [place] [id number] BLOOD BANKOrdered By: Tobias Ospina on 07-09-2023 ABO/Rh Interp Positive Invalid Interpretation Code [facility] BB Subsection ABSC Gel Interp Negative (07/09/23 3:58 PM) Normal [facility] BB Subsection CBC w/ Auto Diffon 4 Anisocytosis Ql (Bld) PRESENT Invalid Interpretation Code [facility] Comment on above: Performed By: #### 2 [id number] #### [facility] [address] [place] [address] Basophils/100 WBC (Bld) 0.3 % Normal 0.0-2.0 [facility] Comment on above: Performed By: #### 2 [id number] #### [facility] [address] [place] [address] Basophils/Leukocytes Auto (Bld) [Pure # fraction] 0.0 E9/L Normal 0.0-0.2 [facility] Comment on above: Performed By: #### 2 [id number] #### [facility] [address] [place] [address] Eosinophils (Bld) [#/Vol] 0.1 E9/L Normal 0.0-0.5 [facility] Comment on above: Performed By: #### 2 [id number] #### [facility] [address] [place] [address] Eosinophils/100 WBC (Bld) 1.3 % Normal 0.0-8.0 [facility] Comment on above: Performed By: #### 2 [id number] #### [facility] [address] [place] [address] Erythrocyte distribution width (RBC) [Ratio] 15.0 % High 10.9-14.2 [facility] Comment on above: Performed By: #### 2 [id number] #### [facility] [address] [place] [address] Hematocrit (Bld) [Volume fraction] 28.8 % Low 34.0-46.0 [facility] Comment on above: Performed By: #### 2 [id number] #### [facility] [address] [place] [address] Hemoglobin (Bld) [Mass/Vol] 9.2 g/dL Low 12.0-16.0 [facility] Comment on above: Performed By: #### 2 [id number] #### [facility] [address] [place] [address] Hypochromia Auto Ql (Bld) PRESENT Invalid Interpretation Code [facility] Comment on above: Performed By: #### 2 [id number] #### [facility] [address] [place] [address] Lymphocytes (Bld) [#/Vol] 2.2 E9/L Normal 1.0-4.0 [facility] Comment on above: Performed By: #### 2 [id number] #### [facility] [address] [place] [address] Lymphocytes/100 WBC (Bld) 19.1 % Normal 14.0-50.0 [facility] Comment on above: Performed By: #### 2 [id number] #### [facility] [address] [place] [address] MCH (RBC) [Entitic mass] 23.5 pg Low 27.0-34.0 [facility] Comment on above: Performed By: #### 2 [id number] #### [facility] [address] [place] [address] MCHC (RBC) [Mass/Vol] 31.9 g/dL Normal 31.4-36.0 [facility] Comment on above: Performed By: #### 2 [id number] #### [facility] [address] [place] [address] MCV (RBC) [Entitic vol] 73.8 fL Low 80.0-100.0 [facility] Comment on above: Performed By: #### 2 [id number] #### [facility] [address] [place] [address] Microcytes Ql (Bld) PRESENT Invalid Interpretation Code [facility] Comment on above: Performed By: #### 2 [id number] #### [facility] [address] [place] [address] Monocytes (Bld) [#/Vol] 0.8 E9/L Normal 0.2-1.0 [facility] Comment on above: Performed By: #### 2 [id number] #### [facility] [address] [place] [address] Neutrophils (Bld) [#/Vol] 8.1 E9/L High 2.0-7.5 [facility] Comment on above: Performed By: #### 2 [id number] #### [facility] [address] [place] [address] Neutrophils/100 WBC (Bld) 72.3 % Normal 36.0-75.0 [facility] Comment on above: Performed By: #### 2 [id number] #### [facility] [address] [place] [address] Ovalocytes LM Ql (Bld) PRESENT Invalid Interpretation Code [facility] Comment on above: Performed By: #### 2 [id number] #### [facility] [address] [place] [address] Platelet mean volume (Bld) [Entitic vol] 8.9 fL Normal 6.4-10.8 [facility] Comment on above: Performed By: #### 2 [id number] #### [facility] [address] [place] [address] Platelets (Bld) [#/Vol] 251.0 E9/L Normal 150.0-500.0 [facility] Comment on above: Performed By: #### 2 [id number] #### [facility] [address] [place] [address] RBC (Bld) [#/Vol] 3.9 E12/L Low 4.3-5.9 [facility] Comment on above: Performed By: #### 2 [id number] #### [facility] [address] [place] [address] RBC size Nom (Bld) SEE MORPHOLOGY Invalid Interpretation Code [facility] Comment on above: Performed By: #### 2 [id number] #### [facility] [address] [place] [address] WBC corrected for nucl RBC Auto (Bld) [#/Vol] 11.3 E9/L High 4.0-11.0 [facility] Comment on above: Performed By: #### 2 [id number] #### [facility] [address] [place] [address] Consent for Treatmenton Consent for Treatment [id number] #1.00TIFF Normal [facility] Consent for Treatment [id number] #1.00TIFF Normal [facility] HEMATOLOGYOrdered By: SYSTEM SYSTEM on 07-09-2023 [...] Remisol Heme Physician Orderon 07-09-2023 Physician Order [id number] #1.00TIFF Normal [facility] Physician Order [id number] #1.00TIFF Normal [facility] Physician Order [id number] #1.00TIFF Normal [facility] No Panel Informationon 03-20 Glucose, UA Negative Negative - 2000(110) ++++ mg/dL [facility] Protein, UA Negative Negative - 1999(20) ++++ mg/dL [facility] ED Note-Physicianon 02-17-19 ED Note-Physician Basic Information Time Seen: Renae ROBERT Sadie E. 02/13/2023 14:21 Chief Complaint 8 weeks sees [facility] OB. appt. scheduled for 02/23. states she has been vomiting for a couple of weeks and feels dehydrated. denies vaginal bleeding or any cramping. History of Present Illness 18-year-old female who is 8 weeks presents for continued vomiting. She admits to dysuria. She states that she called her [facility] today and they were going to give [...] syndrome. She is to follow-up with her [employer]. Patient has not had any more vomiting, but still complains of nausea and dry heaving will be given Phenergan. She is now eating ice cream. Upon recheck, patient is sleeping comfortably on the cot with no further episodes of vomiting and will be discharged with a prescription for Zofran and Phenergan suppositories and follow-up with the [employer]. Afebrile, not tachycardic, not tachypneic, nontoxic-appearing, tolerating p.o. and ambulating at baseline and hemodynamically stable to be discharged home. Educated side effect of medications. Answered all questions. Patient in agreement with treatment. Assessment/Plan 1. Hyperemesis gravidarum (O21.0: Mild hyperemesis gravidarum) Ordered: ondansetron, 4 mg = 1 tab(s), Oral, q8hr, X 2 day(s), # 6 tab(s), Refills(s) 0, [id number], cm, 02/13/23 14:25:00 EST, Height/Length Dosing, 69.5, kg, 02/13/23 14:25:00 EST, Weight Dosing promethazine, 12.5 mg = 1 supp, Rectal, q4hr, PRN for motion sickness, X 5 day(s), # 30 supp, Refills(s) 0, [id number], 165, cm, 02/13/23 14:25:00 EST, Height/Length Dosing, 69.5, kg, 02/13/23 14:25:00 EST, Weight Dosing 2. (Z34.90: Encounter for supervision of normal , unspecified, unspecified trimester) Ordered: ondansetron, 4 mg = 1 tab(s), Oral, q8hr, X 2 day(s), # 6 tab(s), Refills(s) 0, Pharm[facility] #[id number], 165, cm, 02/13/23 14:25:00 EST, Height/Length Dosing, 69.5, kg, 02/13/23 14:25:00 EST, Weight Dosing promethazine, 12.5 mg = 1 supp, Rectal, q4hr, PRN for motion sickness, X 5 day(s), # 30 supp, Refills(s) 0, Pharm[facility]: [facility]/pharm[facility] #[id number], 165, cm, 02/13/23 14:25:00 EST, Height/Length Dosing, 69.5, kg, 02/13/23 14:25:00 EST, Weight Dosing 3. UTI in (O23.40: Unspecified infection of urinary tract in , unspecified trimester) Ordered: ondansetron, 4 mg = 1 tab(s), Oral, q8hr, X 2 day(s), # 6 tab(s), Refills(s) 0, [id number], 165, cm, 02/13/23 14:25:00 EST, Height/Length Dosing, 69.5, kg, 02/13/23 14:25:00 EST, Weight Dosing promethazine, 12.5 mg = 1 supp, Rectal, q4hr, PRN for motion sickness, X 5 day(s), # 30 supp, Refills(s) 0, [id number], 165, cm, 02/13/23 14:25:00 EST, Height/Length Dosing, 69.5, kg, 02/13/23 14:25:00 EST, Weight Dosing 4. Hypokalemia (E87.6: Hypokalemia) Ordered: ondansetron, 4 mg = 1 tab(s), Oral, q8hr, X 2 day(s), # 6 tab(s), Refills(s) 0, [id number], 165, cm, 02/13/23 14:25:00 EST, Height/Length Dosing, 69.5, kg, 02/13/23 14:25:00 EST, Weight Dosing promethazine, 12.5 mg = 1 supp, Rectal, q4hr, PRN for motion sickness, X 5 day(s), # 30 supp, Refills(s) 0, [facility] [id number], 165, cm, 02/13/23 14:25:00 EST, Height/Length [...] Dosing promethazine, 12. (more content not included)... [facility] Comment on above: Result Comment: Elec [...] Locations R1: This test was performed at: [facility], [address] [place] [address], [address] , , [facility] Comment on above: Performed By: #### 2 [id number], [id number] #### [facility] [address] [place] [address] 23610 Auto Diffon 02-13-2023 Basophils/100 WBC (Bld) 0.6 % Normal 0.0-2.0 [facility] Comment on above: Order Comment: Order Added by Discern Expert. Performed By: #### 1 [id number] #### [facility] [address] [place] [address] Basophils/Leukocytes Auto (Bld) [Pure # fraction] 0.1 E9/L Normal 0.0-0.2 [facility] Comment on above: Order Comment: Order Added by Discern Expert. Performed By: #### 1 [id number] #### [facility] [address] [place] [address] 670[address] Eosinophils/100 WBC (Bld) 0.4 % Normal 0.0-8.0 [facility] Comment on above: Order Comment: Order Added by Discern Expert. Performed By: #### 1 [id number] #### [facility] [address] [place] [address] 80898 Eosinophils/Leukocytes Auto (Bld) [Pure # fraction] 0.0 E9/L Normal 0.0-0.5 [facility] Comment on above: Order Comment: Order Added by Discern Expert. Performed By: #### 1 [id number] #### [facility] [address] [place] [address] 89753 Lymphocytes/100 WBC (Bld) 22.3 % Normal 14.0-50.0 [facility] Comment on above: Order Comment: Order Added by Discern Expert. Performed By: #### 1 [id number] #### [facility] [address] [place] [address]648 Lymphocytes/Leukocytes Auto (Bld) [Pure # fraction] 1.9 E9/L Normal 1.0-4.0 [facility] Comment on above: Order Comment: Order Added by Discern Expert. Performed By: #### 1 [id number] #### [facility] [address] [place] [address] 78962 Monocytes/100 WBC (Bld) 8.5 % Normal 4.0-14.0 [facility] Comment on above: Order Comment: Order Added by Discern Expert. Performed By: #### 1 [id number] #### [facility] [address] [place] [address] Monocytes/Leukocytes Auto (Bld) [Pure # fraction] 0.7 E9/L Normal 0.2-1.0 [facility] Comment on above: Order Comment: Order Added by Discern Expert. Performed By: #### 1 [id number] #### [facility] [address] [place] [address] Neutrophils/100 WBC (Bld) 68.2 % Normal 36.0-75.0 [facility] Comment on above: Order Comment: Order Added by Discern Expert. Performed By: #### 1 [id number] #### [facility] [address] [place] [address] Neutrophils/Leukocytes Auto (Bld) [Pure # fraction] 5.7 E9/L Normal 2.0-7.5 [facility] Comment on above: Order Comment: Order Added by Discern Expert. Performed By: #### 1 [id number] #### [facility] [address] [place] [address] 31241 CBC w/ Auto Diffon Erythrocyte distribution width (RBC) [Ratio] 19.0 % High 10.9-14.2 [facility] Comment on above: Performed By: #### 1 [id number], [id number] #### [facility] [address] [place] [address] 82807 Hematocrit (Bld) [Volume fraction] 36.7 % Normal 34.0-46.0 [facility] Comment on above: Performed By: #### 1 [id number], [id number] #### [facility] [address] [place] [address] 35301 Hemoglobin (Bld) [Mass/Vol] 11.9 g/dL Low 12.0-16.0 [facility] Comment on above: Performed By: #### 1 [id number], [id number] #### [facility] [address] [place] [address] 66376 MCH (RBC) [Entitic mass] 24.7 pg Low 27.0-34.0 [facility] Comment on above: Performed By: #### 1 [id number], [id number] #### [facility] [address] [place] [address] 93401 MCHC (RBC) [Mass/Vol] 32.5 g/dL Normal 31.4-36.0 [facility] Comment on above: Performed By: #### 1 [id number], [id number] #### [facility] [address] [place] [address] MCV (RBC) [Entitic vol] 75.9 fL Low 80.0-100.0 [facility] Comment on above: Performed By: #### 1 [id number], [id number] #### [facility] [address] [place] [address] Platelet mean volume (Bld) [Entitic vol] 8.7 fL Normal 6.4-10.8 [facility] Comment on above: Performed By: #### 1 [id number], [id number] #### [facility] [address] [place] [address] Platelets (Bld) [#/Vol] 326.0 E9/L Normal 150.0-500.0 [facility] Comment on above: Performed By: #### 1 [id number], [id number] #### [facility] [address] [place] [address] 01472 RBC (Bld) [#/Vol] 4.8 E12/L Normal 4.3-5.9 [facility] Comment on above: Performed By: #### 1 [id number], [id number] #### [facility] [address] [place] [address] WBC corrected for nucl RBC Auto (Bld) [#/Vol] 8.3 E9/L Normal 4.0-11.0 [facility] Comment on above: Performed By: #### 1 [id number], [id number] #### [facility] [address] [place] [address] CHEMISTRYOrdered By: SYSTEM SYSTEM on 02-13-2023 Albumin [...] 02-13-2023 Albumin [Mass/Vol] 4.2 g/dL Normal 3.3-5.0 [facility] Comment on above: Performed By: #### 1 [id number] #### [facility] [address] [place] [address] Albumin/Globulin [Mass ratio] 1.3 {ratio} Normal 1.1-2.2 [facility] Comment on above: Performed By: #### 1 [id number] #### [facility] [address] [place] [address] Alk Phos 114 Int._Unit/L High 21-98 [facility] Comment on above: Performed By: #### 1 [id number] #### [facility] [address] [place] [address] ALT 86 Int._Unit/L High 6-46 [facility] Comment on above: Performed By: #### 1 [id number] #### [facility] [address] [place] [address] Anion gap [Moles/Vol] 16 mmol/L Normal 6-16 [facility] Comment on above: Performed By: #### 1 [id number] #### [facility] [address] [place] [address] AST 51 Int._Unit/L High 5-43 [facility] Comment on above: Performed By: #### 1 [id number] #### [facility] [address] [place] [address] Bili Total 0.7 mg/dL Normal 0.0-1.1 [facility] Comment on above: Performed By: #### 1 [id number] #### [facility] [address] [place] [address] BUN/Creat Ratio 14 No Units Normal 10-20 [facility] Comment on above: Performed By: #### 1 [id number] #### [facility] [address] [place] [address] Calcium [Mass/Vol] 9.3 mg/dL Normal 8.9-11.1 [facility] Comment on above: Performed By: #### 1 [id number] #### [facility] [address] [place] [address] Chloride [Moles/Vol] 103 mmol/L Normal 101-111 [facility] Comment on above: Performed By: #### 1 [id number] #### [facility] [address] [place] [address] CO2 [Moles/Vol] 21 mmol/L Normal 21-31 [facility] Comment on above: Performed By: #### 1 [id number] #### [facility] [address] [place] [address] Creatinine [Mass/Vol] 0.5 mg/dL Normal 0.5-1.3 [facility] Comment on above: Performed By: #### 1 [id number] #### [facility] [address] [place] [address] Globulin (S) [Mass/Vol] 3.3 g/dL Normal 1.4-4.0 [facility] Comment on above: Performed By: #### 1 [id number] #### [facility] [address] [place] [address] Glucose [Mass/Vol] 84 mg/dL Normal 55-199 [facility] Comment on above: Performed By: #### 1 [id number] #### [facility] [address] [place] [address] Potassium [Moles/Vol] 3.4 mmol/L Low 3.5-5.3 [facility] Comment on above: Performed By: #### 1 [id number] #### [facility] [address] [place] [address] Protein [Mass/Vol] 7.5 g/dL Normal 6.0-7.8 [facility] Comment on above: Performed By: #### 1 [id number] #### [facility] [address] [place] [address] Sodium [Moles/Vol] 137 mmol/L Normal 135-145 [facility] Comment on above: Performed By: #### 1 [id number] #### [facility] [address] [place] [address] Urea nitrogen [Mass/Vol] 7 mg/dL Normal 5-21 [facility] Comment on above: Performed By: #### 1 [id number] #### [facility] [address] [place] [address] Consent for Treatmenton Consent for Treatment [id number] #1.00TIFF Normal [facility] Discharge Instructionson Discharge Instructions [id number]#1.00TIFF Normal [facility] ED Clinical Summaryon 2023 ED Clinical Summary [place] [id number] ED Clinical Summary Person Information Name: JORDIN TYLER [facility]an/[facility] Age: 18 Years : 2005 Sex: Female Language: Eritrean PCP: MARK STONE Marital Status: Single Phone: [phone] Visit Id: Visit Reason: Vomiting - ; [...] 02/13/2023 17:35:55 02/13/2023 17:35:55 02/13/2023 17:35:55 ADDRESS: [address] [place] [id number] PHYS DOC NOTES: MEDICAL INFORMATION: Prescriptions Given: New Medications [facility]/pharmacy #[id number], [address] [place], [place] [id number], [phone] nitrofurantoin (Macrobid 100 mg Cap) 1 Capsules By Mouth 2 times a day for 5 Days. Refills: 0. Medications to Continue Taking That Have Changed [facility]/pharmacy #[id number], [address], [place] [id number], [phone] START: ondansetron (Zofran ODT 4 mg Tab-Dis) [...] INFORMATION: Instructions: Hypokalemia; Urinary Tract Infection, Adult, Pkeb-rm-Njyt; Hyperemesis Gravidarum Follow up: With: Address: When: Paul CASE, [place], [address]S [address] [facility], [address] [place] [address] Within 2 to 4 days DIAGNOSIS: 1:Hyperemesis gravidarum; 2:; 3:UTI in ; 4:Hypokalemia; 5:Elevated LFTs Normal [facility] ED Patient Education Noteon 02-13-2023 ED [...] such as yogurt. General instructions ? Take tbok-fvb-iexeehp and prescription medicines only as told by [...] provider. Document Revised: 10/06/2021 Document Reviewed: 10/06/2021 [email or web address] Patient Education ? 2022 [email or web address] Obstetrics and Gynecology Urinary Tract Infection, Adult [...] antibiotic medicines. (more content not included)... Normal [facility] ED Patient Summaryon 024 ED Patient Summary [place] [id number] Patient Discharge Instructions Person Information Name: JORDIN TYLER Age: 18 Years Arrival Date: 02/13/2023 14:15:10 Discharge Diagnosis: 1:Hyperemesis gravidarum; 2:; 3:UTI in ; 4:Hypokalemia; 5:Elevated LFTs Primary Care Physician: MARK STONE Provider Information Primary Provider: Steven Alatorre DO Advanced Supervisor Gelatin Plant:None The exam and treatment you received in the Emergency Department were for an urgent problem and are not intended as complete care. It is important that you follow up with a doctor, nurse practitioner, or physician?s biology research assistant for ongoing care. If your symptoms [...] When: Paul CASE, [place], [address], [address]UC[address] [place] [id number] Within 2 to 4 days In the event that this physician does not participate in your insurance network, please consult with your insurance company to find a nearby participating provider. Patient Education Materials: Hypokalemia; Urinary Tract Infection, Adult, Hvci-ut-Zswa; Hyperemesis Gravidarum A MESSAGE TO ALL PATIENTS REGARDING OPIOIDS PRESCRIPTION OPIOIDS: WHAT YOU NEED TO KNOW Prescription opioids can be used to help relieve butqevvg-lx-bgbmrs pain and are often prescribed following a [...] your health (more content not included)... Normal [facility] HEMATOLOGYOrdered By: Ericka Rivas on 02-13-2023 Anisocytosis Ql (Bld) Present (02/13/23 2:33 PM) Normal [facility]eManSS Erythrocyte distribution width (RBC) [Ratio] 19.0 % High 10.9 - 14.2 % FT HemeAutoSS Hematocrit (Bld) [Volume fraction] 36.7 % Normal 34.0 - 46.0 % FT HemeAutoSS Hemoglobin (Bld) [Mass/Vol] 11.9 g/dL Low 12.0 - 16.0 gm/dL [facility] HemeAutoSS Hypochromia Auto Ql (Bld) Present (02/13/23 2:33 PM) Normal [facility] HemeManSS MCH (RBC) [Entitic mass] 24.7 pg Low 27. 0 - 34.0 pg FT HemeAutoSS MCHC (RBC) [Mass/Vol] 32.5 g/dL Normal 31.4 - 36.0 gm/dL FT HemeAutoSS MCV (RBC) [Entitic vol] 75.9 fL [...] 68.2 % Normal 36.0 - 75.0 % [facility]eAutoSS Neutrophils/Leukocytes Auto (Bld) [Pure # fraction] 5.7 E9/L Normal 2.0 - 7.5 E9/L [facility]eAuto[facility] Magnesiumon 02-13-2023 Magnesium [Mass/Vol] 1.7 mg/dL Normal 1.3-2.4 [facility] Comment on above: Performed By: #### 1 [id number] #### [facility] [address] [place] [address] Morphon 02-13-2023 Anisocytosis Ql (Bld) Present Normal [facility] Comment on above: Order Comment: Order Added by Discern Expert. Performed By: #### 1 [id number], [id number] #### [facility] [address] [place] [address] Hypochromia Auto Ql (Bld) Present Normal [facility] Comment on above: Order Comment: Order Added by Discern Expert. Performed By: #### 1 [id number], [id number] #### [facility] [address] [place] [address] Microcytes Ql (Bld) Present Normal [facility] Comment on above: Order Comment: Order Added by Discern Expert. Performed By: #### 1 [id number], [id number] #### [facility] [address] [place] [address] Morphology Cliff (Bld) [Interp] See Morphology Normal [facility] Comment on above: Order Comment: Order Added by Discern Expert. Performed By: #### 1 [id number], [id number] #### [facility] [address] [place] [address] Ovalocytes LM Ql (Bld) Present Normal [facility] Comment on above: Order Comment: Order Added by Discern Expert. Performed By: #### 1 [id number], [id number] #### [facility] [address] [place] [address] UA With Cult Reflexon 2023 Bacteria LM Ql (Urine sed) 2+ /HPF Abnormal Trace [facility] Comment on above: Performed By: #### 2 452409, [id number] #### [facility] [address] [place] [address] Bilirubin Ql (U) 2+ Abnormal Negative [facility] Comment on above: Performed By: #### 2 615965, [id number] #### [facility] [address] [place] [address] Clarity (U) CLEAR Normal Clear [facility] Comment on above: Performed By: #### 2 [id number], [id number] #### [facility] [address] [place] [address] Color (U) DARK YELLO Abnormal Yellow [facility] Comment on above: Performed By: #### 2 105419, [id number] #### [facility] [address] [place] [address] Epithelial cells.squamous LM.HPF (Urine sed) [#/Area] 5-8 Normal 0-2 [facility] Comment on above: Performed By: #### 2 567919, [id number] #### [facility] [address] [place] [address] Glucose Test strip (U) [Mass/Vol] Negative Normal Negative [facility] Comment on above: Performed By: #### 2 483103, [id number] #### [facility] [address] [place] [address] Hemoglobin Ql (U) Negative Normal Negative [facility] Comment on above: Performed By: #### 2 645809, [id number] #### [facility] [address] [place] [address] Ketones (U) [Mass/Vol] 3+ Abnormal Negative [facility] Comment on above: Performed By: #### 2 510821, [id number] #### [facility] [address] [place] [address] Gibbon.plasma/Gibbon.R BC (Bld) [Mass ratio] 4-20 Normal 0-3 [facility] Comment on above: Performed By: #### 2 286115, [id number] #### [facility] [address] [place] [address] Mucus Ql (Urine sed) 2+ Normal [facility] Comment on above: Performed By: #### 2 315554, [id number] #### [facility] [address] [place] [address] Nitrite Ql (U) Negative Normal Negative [facility] Comment on above: Performed By: #### 2 758023, [id number] #### [facility] [address] [place] [address] pH (U) 6.0 [pH] Invalid Interpretation Code 5.0-9.0 [facility] Comment on above: Performed By: #### 2 905365, [id number] #### [facility] [address] [place] [address] Protein (U) [Mass/Vol] 1+ Abnormal Negative [facility] Comment on above: Performed By: #### 2 176285, [id number] #### [facility] [address] [place] [address] Specific gravity (U) [Rel density] >=1.030 Invalid Interpretation Code 1.005-1.030 [facility] Comment on above: Performed By: #### 2 521438, [id number] #### [facility] [address] [place] [address] Type of Urine collection method Clean Catch Normal [facility] Comment on above: Performed By: #### 2 682310, [id number] #### [facility] [address] [place] [address] Urobilinogen Qn (U) 2.0 {Karri'U}/dL Abnormal 0.0-1.0 [facility] Comment on above: Performed By: #### 2 137140, [id number] #### [facility] [address] [place] [address] WBC Auto Ql (U) 1+ Abnormal Negative [facility] Comment on above: Performed By: #### 2 [id number], [id number] #### [facility] [address] [place] [address] WBC LM.HPF (Urine sed) [#/Area] 6-15 Abnormal 0-5 [facility] Comment on above: Performed By: #### 2 366587, [id number] #### [facility] [address] [place] [address] URINALYSISOrdered By: Maranda Muñoz on 02-13-2023 Bacteria [...] Interpretation Code Negative [facility] UA Auto SS Gibbon.plasma/Gibbon.R BC (Bld) [Mass ratio] 4-20 /HPF Normal [...] PM) Invalid Interpretation Code 1.005 - 1.030 [facility] UA Auto SS UA Spec Desc Clean Catch (02/13/23 2:30 PM) Normal [facility] UA Auto SS Urobilinogen Qn (U) 2.2250474 {Karri'U}/dL Invalid Interpretation Code 0.0 - 1.0 EU/dL [facility] UA Auto SS WBC Auto Ql (U) 1+ *ABN* (02/13/23 2:30 PM) Invalid Interpretation Code Negative [facility] UA Auto SS WBC LM.HPF (Urine sed) [#/Area] 6-15 /HPF Invalid Interpretation Code 0-5/HPF [facility] UA Auto SS eGFRon 02-13-2023 GFR/1.73 sq M.predicted among non-blacks MDRD (S/P/Bld) [Vol rate/Area] mL/min/{1.73_m2} Normal >=59 [facility] Comment on above: Order Comment: Order added by Discern Expert. Performed By: #### 1 [id number] #### [facility] [address] [place] [address] C Urineon 01-28-2023 Bacteria identified Cx Nom [...] Locations R1: This test was performed at: [facility], [address] [place] [address], [address] , , [facility] Comment on above: Performed By: #### 1 [id number] #### [facility] [address] [place] [address] ED Note-Physicianon 01-28-20 23 ED Note-Physician Basic Information Time Seen: Renny ROBERT, Donavan Mendez. 01/26/2023 19:10 Chief Complaint pt states that [...] weeks . Reports he does follow-up with [facility]. Denies any fevers or chills. States that [...] and Complexity of Problems Differential Diagnosis: [] [facility] Data External documents reviewed: [] My EKG [...] greatly improve her symptoms. Discussed follow-up with [facility]. Patient was understanding. Follow-up with your primary [...] EST, STAT, Start date 01/26/23 19:21:00 EST, 12/22/23 19:21:00 EST metoclopramide, 5 mg = 1 [...] Blue Tube (more content not included)... Normal [facility] Comment on above: Result Comment: Elec tronically Signed By: Donavan Lawson PA-C\.br\Date and Time Signed: 01/26/23 21:46 EST\.br\Electronically Co-Signed By: Damaris Jean Baptiste DO\.br\Date and Time Co-Signed: 01/27/23 01:31 EST ABO/Rhon 01-26-2023 ABO/Rh Positive Invalid Interpretation Code [facility] Comment on above: Performed By: #### 2 [id number] ####[facility] [address] [place] [address] Auto Diffon 01-26-2023 Basophils/100 WBC (Bld) 0.4 % Normal 0.0-2.0 [facility] Comment on above: Order Comment: Order Added by Discern Expert. Performed By: #### 1 [id number] #### [facility] [address] [place] [address] Basophils/Leukocytes Auto (Bld) [Pure # fraction] 0.0 E9/L Normal 0.0-0.2 [facility] Comment on above: Order Comment: Order Added by Discern Expert. Performed By: #### 1 [id number] #### [facility] [address] [place] [address] Eosinophils/100 WBC (Bld) 0.5 % Normal 0.0-8.0 [facility] Comment on above: Order Comment: Order Added by Discern Expert. Performed By: #### 1 [id number] #### [facility] [address] [place] [address] Eosinophils/Leukocytes Auto (Bld) [Pure # fraction] 0.0 E9/L Normal 0.0-0.5 [facility] Comment on above: Order Comment: Order Added by Discern Expert. Performed By: #### 1 [id number] #### [facility] [address] [place] [address] Lymphocytes/100 WBC (Bld) 21.8 % Normal 14.0-50.0 [facility] Comment on above: Order Comment: Order Added by Discern Expert. Performed By: #### 1 [id number] #### [facility] [address] [place] [address] Lymphocytes/Leukocytes Auto (Bld) [Pure # fraction] 1.7 E9/L Normal 1.0-4.0 [facility] Comment on above: Order Comment: Order Added by Discern Expert. Performed By: #### 1 [id number] #### [facility] [address] [place] [address] Monocytes/100 WBC (Bld) 7.4 % Normal 4.0-14.0 [facility] Comment on above: Order Comment: Order Added by Discern Expert. Performed By: #### 1 [id number] #### [facility] [address] [place] [address] Monocytes/Leukocytes Auto (Bld) [Pure # fraction] 0.6 E9/L Normal 0.2-1.0 [facility] Comment on above: Order Comment: Order Added by Discern Expert. Performed By: #### 1 [id number] #### [facility] [address] [place] [address] Neutrophils/100 WBC (Bld) 69.9 % Normal 36.0-75.0 [facility] Comment on above: Order Comment: Order Added by Discern Expert. Performed By: #### 1 [id number] #### [facility] [address] [place] [address] Neutrophils/Leukocytes Auto (Bld) [Pure # fraction] 5.3 E9/L Normal 2.0-7.5 [facility] Comment on above: Order Comment: Order Added by Discern Expert. Performed By: #### 1 [id number] #### [facility] [address] [place] [address] BLOOD BANKOrdered By: Ericka Rivas on 01-26-2023 ABO/Rh Interp Positive Invalid Interpretation Code [facility] BB Subsection BMPon 01-26-2023 Anion gap [Moles/Vol] 16 mmol/L Normal 6-16 [facility] Comment on above: Performed By: #### 1 [id number] #### [facility] [address] [place] [address] BUN/Creat Ratio 17 No Units Normal 10-20 [facility] [facility] Comment on above: Performed By: #### 1 [id number] #### [facility] [address] [place] [address] Calcium [Mass/Vol] 9.5 mg/dL Normal 8.9-11.1 [facility] Comment on above: Performed By: #### 1 [id number] #### [facility] [address] [place] [address] Chloride [Moles/Vol] 103 mmol/L Normal 101-111 [facility] Comment on above: Performed By: #### 1 [id number] #### [facility] [address] [place] [address] CO2 [Moles/Vol] 21 mmol/L Normal 21-31 [facility] Comment on above: Performed By: #### 1 [id number] #### [facility] [address] [place] [address] Creatinine [Mass/Vol] 0.6 mg/dL Normal 0.5-1.3 [facility] Comment on above: Performed By: #### 1 [id number] #### [facility] [address] [place] [address] Glucose [Mass/Vol] 79 mg/dL Normal 55-199 [facility] Comment on above: Performed By: #### 1 [id number] #### [facility] [address] [place] [address] Potassium [Moles/Vol] 3.6 mmol/L Normal 3.5-5.3 [facility] Comment on above: Performed By: #### 1 [id number] #### [facility] [address] [place] [address] Sodium [Moles/Vol] 136 mmol/L Normal 135-145 [facility] Comment on above: Performed By: #### 1 [id number] #### [facility] [address] [place] [address] Urea nitrogen [Mass/Vol] 10 mg/dL Normal 5-21 [facility] Comment on above: Performed By: #### 1 [id number] #### [facility] [address] [place] [address] BhCG Quanton 01-26-2023 Beta hCG Qnt 260775 mIU/mL High 1-3 [facility] Comment on above: Result Comment: 'F N ON < 1 - 3' ' 0.2 - 1 WEEK = 5 TO 50' ' 1 - 2 WEEKS = 50 - 500' ' 2 - 3 WEEKS = 100 - 5000' ' 3 - 4 WEEKS = 500 - 37256' ' 4 - 5 WEEKS = 1000 - 99040' ' 5 - 6 WEEKS = 91179 - 324631' ' 6 - 8 WEEKS = 24944 - 934892' ' 8 - 12 WEEKS = 86752 - 073730' Performed By: #### 1 [id number] #### [facility] [address] [place] [address] CBC w/ Auto Diffon 3 Erythrocyte distribution width (RBC) [Ratio] 18.0 % High 10.9-14.2 [facility] Comment on above: Performed By: #### 1 [id number] #### [facility] [address] [place] [address] Hematocrit (Bld) [Volume fraction] 35.9 % Normal 34.0-46.0 [facility] Comment on above: Performed By: #### 1 [id number] #### [facility] [address] [place] [address] Hemoglobin (Bld) [Mass/Vol] 11.8 g/dL Low 12.0-16.0 [facility] Comment on above: Performed By: #### 1 [id number] #### [facility] [address] [place] [address] MCH (RBC) [Entitic mass] 24.1 pg Low 27.0-34.0 [facility] Comment on above: Performed By: #### 1 [id number] #### [facility] [address] [place] [address] MCHC (RBC) [Mass/Vol] 32.8 g/dL Normal 31.4-36.0 [facility] Comment on above: Performed By: #### 1 [id number] #### [facility] [address] [place] [address] MCV (RBC) [Entitic vol] 73.6 fL Low 80.0-100.0 [facility] Comment on above: Performed By: #### 1 [id number] #### [facility] [address] [place] [address] Platelet mean volume (Bld) [Entitic vol] 8.4 fL Normal 6.4-10.8 [facility] Comment on above: Performed By: #### 1 [id number] #### [facility] [address] [place] [address] Platelets (Bld) [#/Vol] 304.0 E9/L Normal 150.0-500.0 [facility] Comment on above: Performed By: #### 1 6421506 #### [facility] [address] [place] [address] RBC (Bld) [#/Vol] 4.9 E12/L Normal 4.3-5.9 [facility] Comment on above: Performed By: #### 1 [id number] #### [facility] [address] [place] [address] WBC corrected for nucl RBC Auto (Bld) [#/Vol] 7.6 E9/L Normal 4.0-11.0 [facility] Comment on above: Performed By: #### 1 [id number] #### [facility] [address] [place] [address] CHEMISTRYOrdered By: SYSTEM SYSTEM on 01-26-2023 Anion [...] 199 mg/dL Remisol Chem HCG.beta subunit Qn 230159 m[IU]/mL High 1 - 3 mIU/m L [facility] Comment on above: Result Comment: 'F N ON < 1 - 3' ' 0.2 - 1 WEEK = 5 TO 50' ' 1 - 2 WEEKS = 50 - 500' ' 2 - 3 WEEKS = 100 - 5000' ' 3 - 4 WEEKS = 500 - 49207' ' 4 - 5 WEEKS = 1000 - 42375' ' 5 - 6 WEEKS = 81564 - 272097' ' 6 - 8 WEEKS = 63079 - 674056' ' 8 - 12 WEEKS = 23978 - 385064' Potassium [Moles/Vol] 3.6 mmol/L Normal 3.5 - 5.3 mmol/L Rem[facility] Chem Sodium [Moles/Vol] 136 mmol/L Normal 135 - 145 mmol/L Rem[facility] Chem Urea nitrogen [Mass/Vol] 10 mg/dL Normal 5 - 21 mg/d L Rem[facility] Chem Urea nitrogen/Creatinine [Mass ratio] 17 mg/mg Normal 10 - 20 Rem[facility] Chem Consent for Treatmenton 01-06 Consent for Treatment [id number] #1.00TIFF Normal [facility] Discharge Instructionson Discharge Instructions [id number]#1.00TIFF Normal [facility] ED Clinical Summaryon 2022 ED Clinical Summary [id number] ED Clinical Summary Person Information Name: JORDIN TYLER Kristan/[facility] Age: 18 Years : 2005 Sex: Female Language: Eritrean PCP: MARK STONE Marital Status: Single Phone: [phone] Visit Id: Visit Reason: Abdominal pain - [...] 01/26/2023 21:19:18 ADDRESS: [address] [id number] PHYS DOC NOTES: MEDICAL INFORMATION: Prescriptions Given: [...] Instructions: Morning Sickness; Nausea and Vomiting, Adult, Ukaf-aq-Fznz Follow up: With: Address: When: Ras Geiger [facility], [place] [address], [place] [id number] [facility] (1) In 3 days 01/29/2023 Comments: Follow-up with your primary care provider in 3 to 5 days. If symptoms worsen, do not improve, or new symptoms arise please report back to emergency department for further evaluation. With: Address: When: [employer] In 3 days DIAGNOSIS: Nausea and vomiting during Normal [facility] ED Patient Education Noteon 01-26-2023 ED [...] ? Low-calorie sports drinks. ? Eat bland, mgrq-ed-xrodgz foods in small amounts as you are able, such as: ? Bananas. ? Applesauce. ? Rice. ? Low-fat (lean) meats. ? [place]. ? Crackers. ? Avoid drinking fluids that have a lot of sugar or caffeine in them. This includes energy drinks, sports drinks, and soda. ? Avoid alcohol. ? Avoid spicy or fatty foods. General instructions ? Take dzpj-hwe-pvvfjqj and prescription medicines only as told by your doctor. ? Drink enough fluid to keep your pee (urine) pale yellow. ? Wash your hands often with soap and water for at least 20 seconds. If you cannot use soap and water, use hand internal grinder. ? Make sure that everyone in your [...] doctor about eating and drinking. ? Take zjvn-quy-zelxgau and prescription medicines only as told by your doctor. ? Contact your doctor if your symptoms get worse or you have new symptoms. ? Keep all follow-up visits. This information is not intended to replace advice given to you by your health care provider. Make sure you discuss any questions you have with your health care provider. Document Revised: 07/29/2021 Document Reviewed: 07/29/2021 [email or web address] Patient Education ? 2022 [address]. Obstetrics and Gynecology Morning Sickness Morning sickness [...] condition i (more content not included)... Normal [facility] ED Patient Summaryon 023 ED Patient Summary [address] [address] Patient Discharge Instructions Person Information Name: JORDIN TYLER Age: 18 Years Arrival Date: 01/26/2023 19:05:49 Discharge Diagnosis: Nausea and vomiting during Primary Care Physician: MARK STONE Provider Information Primary Provider: Damaris Jean Baptiste DO Advanced Supervisor Gelatin Plant:None The exam and treatment you received in the Emergency Department were for an urgent problem and are not intended as complete care. It is important that you follow up with a doctor, nurse practitioner, or physician?s biology research assistant for ongoing care. If your symptoms [...] Follow-up Instructions: With: Address: When: Ras Miller [address] [place] [address] Business (1) In 3 days 01/29/2023 Comments: Follow-up with your primary care provider in 3 to 5 days. If symptoms worsen, do not improve, or new symptoms arise please report back to emergency department for further evaluation. With: Address: When: [employer] In 3 days In the event that this physician does not participate in your insurance network, please consult with your insurance company to find a nearby participating provider. Patient Education Materials: Morning Sickness; Nausea and Vomiting, Adult, Xdmu-gl-Vgqj A MESSAGE TO ALL PATIENTS REGARDING OPIOIDS PRESCRIPTION OPIOIDS: WHAT YOU NEED TO KNOW Prescription opioids can be used to help relieve zgihpgqs-pl-lknxhc pain and are often prescribed following a [...] (www.fda.gov/Drugs/R eso (more content not included)... Normal [facility] HEMATOLOGYOrdered By: SYSTEM SYSTEM on 01-26-2023 [...] 8.4 fL Normal 6.4 - 10.8 fL FT HemeAutoSS Platelets (Bld) [#/Vol] 304.0 E9/L Normal 150. 0 - 500.0 E9/L FT [facility]eAutoSS RBC (Bld) [#/Vol] 4.9 E12/L Normal 4.3 - 5.9 E12/L [facility] [facility]eAuto[facility] WBC corrected for nucl RBC Auto (Bld) [#/Vol] 7.6 E9/L Normal 4.0 - 11.0 E9/L [facility] [place] [facility] UA With Cult Reflexon 2022 Bacteria LM Ql (Urine sed) TRACE Normal Trace [facility] Comment on above: Performed By: #### 1 [id number] #### [facility] [address] [place] [address] Bilirubin Ql (U) Negative Normal Negative [facility] Comment on above: Performed By: #### 1 [id number] #### [facility] [address] [place] [address] Clarity (U) CLEAR Normal Clear [facility] Comment on above: Performed By: #### 1 [id number] #### [facility] [address] [place] [address] Color (U) YELLOW Normal Yellow [facility] Comment on above: Performed By: #### 1 [id number] #### [facility] [address] [place] [address] Epithelial cells.squamous LM.HPF (Urine sed) [#/Area] 5-8 Normal 0-2 [facility] Comment on above: Performed By: #### 1 [id number] #### [facility] [address] [place] [address] Glucose Test strip (U) [Mass/Vol] Negative Normal Negative [facility] Comment on above: Performed By: #### 1 [id number] #### [facility] [address] [place] [address] Hemoglobin Ql (U) Negative Normal Negative [facility] Comment on above: Performed By: #### 1 [id number] #### [facility] [address] [place] [address] Ketones (U) [Mass/Vol] 3+ Abnormal Negative [facility] Comment on above: Performed By: #### 1 [id number] #### [facility] [address] [place] [address] Gibbon.plasma/Gibbon.R BC (Bld) [Mass ratio] 0-3 Normal 0-3 [facility] Comment on above: Performed By: #### 1 [id number] #### [facility] [address] [place] [address] Mucus Ql (Urine sed) TRACE Normal [facility] Comment on above: Performed By: #### 1 [id number] #### [facility] [address] [place] [address] Nitrite Ql (U) Negative Normal Negative [facility] Comment on above: Performed By: #### 1 [id number] #### [facility] [address] [place] [address] pH (U) 6.0 [pH] Invalid Interpretation Code 5.0-9.0 [facility] Comment on above: Performed By: #### 1 [id number] #### [facility] [address] [place] [address] Protein (U) [Mass/Vol] TRACE Abnormal Negative [facility] Comment on above: Performed By: #### 1 [id number] #### [facility] [address] [place] [address] Specific gravity (U) [Rel density] >=1.030 Invalid Interpretation Code 1.005-1.030 [facility] Comment on above: Performed By: #### 1 [id number] #### [facility] [address] [place] [address] Type of Urine collection method Clean Catch Normal [facility] Comment on above: Performed By: #### 1 [id number] #### [facility] [address] [place] [address] Urobilinogen Qn (U) 0.2 {Karri'U}/dL Normal 0.0-1.0 [facility] Comment on above: Performed By: #### 1 [id number] #### [facility] [address] [place] [address] WBC Auto Ql (U) Negative Normal Negative [facility] Comment on above: Performed By: #### 1 [id number] #### [facility] [address] [place] [address] WBC LM.HPF (Urine sed) [#/Area] 6-15 Abnormal 0-5 [facility] Comment on above: Performed By: #### 1 [id number] #### [facility] [address] [place] [address] URINALYSISOrdered By: Raman Trejo on 01-26-2023 Bacteria [...] Interpretation Code Negative [facility] UA Auto SS Gibbon.plasma/Gibbon.R BC (Bld) [Mass ratio] 0-3 /HPF Normal [...] Desc Clean Catch (01/26/23 8:39 PM) Normal FT UA Auto SS Urobilinogen Qn (U) 0.1246553 {Karri'U}/dL Normal 0.0 - 1.0 EU/dL [facility] UA Auto SS WBC Auto Ql (U) Negative (01/26/23 8:39 PM) Normal Negative [facility] UA Auto SS WBC LM.HPF (Urine sed) [#/Area] 6-15 /HPF Invalid Interpretation Code 0-5/HPF [facility] UA Auto SS eGFRon 01-26-2023 GFR/1.73 sq M.predicted among non-blacks MDRD (S/P/Bld) [Vol rate/Area] mL/min/{1.73_m2} Normal >=59 [facility] Comment on above: Order Comment: Order added by Discern Expert. Performed By: #### 1 [id number] #### [facility] [address] [place] [address] Auto Diffon 01-23-2023 Basophils/100 WBC (Bld) 0.5 % Normal 0.0-2.0 [facility] Comment on above: Order Comment: Order Added by Discern Expert. Performed By: #### 1 [id number], 3835830 #### [facility] [address] [place] [address] Basophils/Leukocytes Auto (Bld) [Pure # fraction] 0.0 E9/L Normal 0.0-0.2 [facility] Comment on above: Order Comment: Order Added by Discern Expert. Performed By: #### 1 7704585, 9122975 #### [facility] [address] [place] [address] Eosinophils/100 WBC (Bld) 0.7 % Normal 0.0-8.0 [facility] Comment on above: Order Comment: Order Added by Discern Expert. Performed By: #### 1 [id number], 6805744 #### [facility] [address] [place] [address] Eosinophils/Leukocytes Auto (Bld) [Pure # fraction] 0.0 E9/L Normal 0.0-0.5 [facility] Comment on above: Order Comment: Order Added by Discern Expert. Performed By: #### 1 [id number], 0578506 #### [facility] [address] [place] [address] Lymphocytes/100 WBC (Bld) 21.4 % Normal 14.0-50.0 [facility] Comment on above: Order Comment: Order Added by Discern Expert. Performed By: #### 1 [id number], 0882749 #### [facility] [address] [place] [address] Lymphocytes/Leukocytes Auto (Bld) [Pure # fraction] 1.3 E9/L Normal 1.0-4.0 [facility] Comment on above: Order Comment: Order Added by Discern Expert. Performed By: #### 1 2763763, 0773390 #### [facility] [address] [place] [address] Monocytes/100 WBC (Bld) 7.4 % Normal 4.0-14.0 [facility] Comment on above: Order Comment: Order Added by Discern Expert. Performed By: #### 1 3382686, [id number] #### [facility] [address] [place] [address] Monocytes/Leukocytes Auto (Bld) [Pure # fraction] 0.4 E9/L Normal 0.2-1.0 [facility] Comment on above: Order Comment: Order Added by Discern Expert. Performed By: #### 1 5608638, 7388944 #### [facility] [address] [place] [address] Neutrophils/100 WBC (Bld) 70.0 % Normal 36.0-75.0 [facility] Comment on above: Order Comment: Order Added by Discern Expert. Performed By: #### 1 [id number], 1600673 #### [facility] [address] [place] [address] Neutrophils/Leukocytes Auto (Bld) [Pure # fraction] 4.2 E9/L Normal 2.0-7.5 [facility] Comment on above: Order Comment: Order Added by Discern Expert. Performed By: #### 1 [id number], 7269016 #### [facility] [address] [place] [address] B hCG Qualon 01-23-2023 Beta HCG ( test) Ql Positive Normal [facility] Comment on above: Performed By: #### 2 771905, 77786349, 0564990, 2690293, 42934456, 7420780, 1483829, 9822254, 32500180 ####[facility] [address] [place] [address] BMPon 01-23-2023 Anion gap [Moles/Vol] 14 mmol/L Normal 6-16 [facility] Comment on above: Performed By: #### 2 512932, 05004147, 8243966, 1264451, 56424561, 2645079, 0639512, 4973456, 80706828 ####[facility] [address] [place] [address] BUN/Creat Ratio 18 No Units Normal 10-20 [facility] Comment on above: Performed By: #### 2 363487, 58373202, 0929912, 2899344, 15181052, 9349927, 5930140, 2208654, 89296474 ####[facility] [address] [place] [address] Calcium [Mass/Vol] 9.3 mg/dL Normal 8.9-11.1 [facility] Comment on above: Performed By: #### 2 082435, 25234082, 6874078, 5240530, 53916177, 5830207, 3040720, 5860343, 53728090 ####[facility] [address] [place] [address] Chloride [Moles/Vol] 103 mmol/L Normal 101-111 [facility] Comment on above: Performed By: #### 2 716035, 50606575, 4428376, 8953381, 90273294, 7064504, 9377179, 2848095, 08325559 ####[facility] [address] [place] [address] CO2 [Moles/Vol] 23 mmol/L Normal 21-31 [facility] Comment on above: Performed By: #### 2 012823, 76272884, 0685467, 0580668, 28811417, 7974982, 6535926, 1437062, 29096456 ####[facility] [address] [place] [address] Creatinine [Mass/Vol] 0.6 mg/dL Normal 0.5-1.3 [facility] Comment on above: Performed By: #### 2 664742, 13427368, 4454505, 2051035, 59782774, 9370192, 9702570, 2552515, 95773795 ####[facility] [address] [place] [address] Glucose [Mass/Vol] 84 mg/dL Normal 55-199 [facility] Comment on above: Performed By: #### 2 561687, 73670144, 8586540, 2281927, 32781216, 3153245, 4284194, 3869570, 40013445 ####[facility] [address] [place] [address] Potassium [Moles/Vol] 3.5 mmol/L Normal 3.5-5.3 [facility] Comment on above: Performed By: #### 2 340623, 45344170, 3495885, 7441251, 01774735, 5332667, 4194022, 6990368, 12819198 ####[facility] [address] [place] [address] Sodium [Moles/Vol] 136 mmol/L Normal 135-145 [facility] Comment on above: Performed By: #### 2 438008, 53071088, 9382921, 0056257, 59855147, 0722053, 6254500, 5229788, 77571322 ####[facility] [address] [place] [address] Urea nitrogen [Mass/Vol] 11 mg/dL Normal 5-21 [facility] Comment on above: Performed By: #### 2 350312, 33286993, 5938767, 9278795, 04532798, 1889487, 3132370, 7135878, 93192999 ####[facility] [address] [place] [address] BhCG Quanton 01-23-2023 [place] [address]141 mIU/mL High 1-3 [facility] Comment on above: Result Comment: 'F N ON < 1 - 3' ' 0.2 - 1 WEEK = 5 TO 50' ' 1 - 2 WEEKS = 50 - 500' ' 2 - 3 WEEKS = 100 - 5000' ' 3 - 4 WEEKS = 500 - 93705' ' 4 - 5 WEEKS = 1000 - 46491' ' 5 - 6 WEEKS = 49598 - 901949' ' 6 - 8 WEEKS = 74152 - 850113' ' 8 - 12 WEEKS = 69164 - 985040' Performed By: #### 1 9900370, 7341206 #### [facility] [address] [place] [address] CBC w/ Auto Diffon 3 Erythrocyte distribution width (RBC) [Ratio] 17.6 % High 10.9-14.2 [facility] Comment on above: Performed By: #### 2 032063, 91430452, 7768681, 4332645, 07287600, 3388501, 1549092, 7931253, 25874336 ####[place] [address] [place] [address] Hematocrit (Bld) [Volume fraction] 33.9 % Low 34.0-46.0 [facility] Comment on above: Performed By: #### 2 763753, 38597648, 7815745, 8696256, 78395556, 3092291, 4450594, 3695843, 45340091 ####[address] [address] Hemoglobin (Bld) [Mass/Vol] 11.3 g/dL Low 12.0-16.0 [facility] Comment on above: Performed By: #### 2 011553, 57517004, 4408516, 8723362, 88466795, 0200676, 6016755, 0334838, 31276354 ####[address] [address] MCH (RBC) [Entitic mass] 24.5 pg Low 27.0-34.0 [facility] Comment on above: Performed By: #### 2 620559, 13885544, 2096923, 3374947, 90369387, 0287370, 2722138, 1692891, 13471951 ####[address] [address] MCHC (RBC) [Mass/Vol] 33.3 g/dL Normal 31.4-36.0 [facility] Comment on above: Performed By: #### 2 229540, 48674943, 5652323, 6389831, 49392456, 4678464, 1838789, 8470440, 53937053 ####[address] [address] MCV (RBC) [Entitic vol] 73.6 fL Low 80.0-100.0 [facility] Comment on above: Performed By: #### 2 369267, 59889164, 7474208, 3017773, 53596150, 5514660, 3342357, 2902697, 79987846 ####[facility] [address] [place] [address] Platelet mean volume (Bld) [Entitic vol] 8.1 fL Normal 6.4-10.8 [facility] Comment on above: Performed By: #### 2 674839, 51355279, 7332725, 7805093, 70225055, 4083632, 1195861, 9432102, 35586646 ####[place] [address] [place] [address] Platelets (Bld) [#/Vol] 306.0 E9/L Normal 150.0-500.0 [facility] Comment on above: Performed By: #### 2 704174, 68464916, 4471043, 0138638, 04091921, 8169026, 4020566, 9941973, 15940954 ####[address] [address] RBC (Bld) [#/Vol] 4.6 E12/L Normal 4.3-5.9 [facility] Comment on above: Performed By: #### 2 851768, 51640187, 9772559, 0482788, 43628162, 5600503, 7886979, 9025689, 77885487 ####[address] [address] WBC corrected for nucl RBC Auto (Bld) [#/Vol] 6.0 E9/L Normal 4.0-11.0 [facility] Comment on above: Performed By: #### 2 606582, 24071046, 7765020, 9538315, 70359175, 3132065, 0240289, 1232443, 68627731 ####[address] [address] CHEMISTRYOrdered By: SYSTEM SYSTEM on 01-23-2023 Albumin [...] 199 mg/[place] [address] m[IU]/mL High 1 - 3 mIU/mL [facility] Comment on above: Result Comment: 'F N ON < 1 - 3' ' 0.2 - 1 WEEK = 5 TO 50' ' 1 - 2 WEEKS = 50 - 500' ' 2 - 3 WEEKS = 100 - 5000' ' 3 - 4 WEEKS = 500 - 56353' ' 4 - 5 WEEKS = 1000 - 58166' ' 5 - 6 WEEKS = 52924 - 145470' ' 6 - 8 WEEKS = 92045 - 153564' ' 8 - 12 WEEKS = 36417 - 204681' Lipase Lvl 10 unit/L Low 13 - [...] Consent for Treatmenton 01-05 Consent for Treatment [id number] #1.00TIFF Normal [facility] Discharge Instructionson Discharge Instructions [id number] 120 [id number] #1.00TIFF Normal [facility] ED Clinical Summaryon 2022 ED Clinical Summary [id number] ED Clinical Summary Person Information Name: JORDIN TYLER Kristan/[facility] Age: 18 Years : 2005 Sex: Female Language: Eritrean PCP: MARK STONE Marital Status: Single Phone: [phone] Visit Id: Visit Reason: Dizziness; Nausea; N/V [...] 01/23/2023 17:56:52 01/23/2023 17:56:52 01/23/2023 17:56:52 ADDRESS: [address] [place] [address] [address] [id number] PHYS DOC NOTES: MEDICAL INFORMATION: Prescriptions Given: [...] Adult Follow up: With: Address: When: Ras ROMERO, [facility], [place] [address] Business (1) In 3 days 01/26/2023 DIAGNOSIS: Nausea/vomiting in [facility] [facility] ED Note-Physicianon 01-24-20 ED Note-Physician Basic [...] sent for ultrasound which was discussed with loader technician. Intrauterine measuring 6 weeks, 5 days, heart rate 125. No gross abnormality. Patient was treated here with 2 L of IV fluid and antiemetics. Repeat evaluation of vomiting has been controlled patient taking oral hydration well. No abnormal vaginal discharge or bleeding. She started on nausea medication, vitamins and discharged home with REPAIRER SASH AND DOOR follow-up. Patient was encouraged to return to [...] Miller In 3 days 01/26/2023 EST [address], LUCAS [address] [place] [phone] [facility] (1) Additional Instructions: Patient Education Nausea and Vomiting, Adult Attestation Patient seen and evaluated by the physician biology research assistant. Attending physician was present in the emergency department and supervised care. This visit was performed by both the physician and an APC. I performed all aspects of the M (more content not included)... Normal [facility] Comment on above: Result Comment: Elec [...] added (diluted fruit juice). ? Eat bland, avkf-az-djouaa foods in small amounts as you are able. These foods include bananas, applesauce, rice, lean meats, toast, and crackers. ? Avoid fluids that contain a lot of sugar or caffeine, such as energy drinks, sports drinks, and soda. ? Avoid alcohol. ? Avoid spicy or fatty foods. General instructions ? Take bqen-lgd-exwnnkt and prescription medicines only as told by your health care provider. ? Drink enough fluid to keep your urine pale yellow. ? Wash your hands often using soap and water for at least 20 seconds. If soap and water are not available, use hand internal grinder. ? Make sure that everyone in your [...] and drinking to prevent dehydration. ? Take jgos-paw-jepuvbw and prescription medicines only as told by [...] Reviewed: 07/29/2021 Elsevier Patient Education ? 2022 [email or web address] Normal [facility] ED Patient Summaryon 023 ED Patient Summary [address] [address] Patient Discharge Instructions Person Information Name: JORDIN TYLER Age: 18 Years Arrival Date: 01/23/2023 11:31:15 Discharge Diagnosis: Nausea/vomiting in Primary Care Physician: MARK STONE Provider Information Primary Provider: Steven Alatorre DO Advanced Supervisor Gelatin Plant:Colby Ayers PA-C The exam and treatment you received in the Emergency Department were for an urgent problem and are not intended as complete care. It is important that you follow up with a doctor, nurse practitioner, or physician?s biology research assistant for ongoing care. If your symptoms [...] Follow-up Instructions: With: Address: When: Ras Miller [address] [place] [address], [facility] [address], [place] [phone] Business (1) In 3 days 01/26/2023 In the event that this physician does not participate in your insurance network, please consult with your insurance company to find a nearby participating provider. Patient Education Materials: Nausea and Vomiting, Adult A MESSAGE TO ALL PATIENTS REGARDING OPIOIDS PRESCRIPTION OPIOIDS: WHAT YOU NEED TO KNOW Prescription opioids can be used to help relieve cyqrpadq-xw-lwxrzh pain and are often prescribed following a [...] be struggling with addiction, tell your health rn urgent care and ask for guidance or call [employer]?S National Helpline at 0-339-931-HCZA (more content not included)... Normal [facility] HEMATOLOGYOrdered By: Brandon Sweeney on 01-23-2023 Anisocytosis Ql (Bld) Present (01/23/23 12:15 PM) Normal [facility] HemeManSS Erythrocyte distribution width (RBC) [Ratio] 17.6 % High 10.9 - 14.2 % [facility] HemeAutoSS Hematocrit (Bld) [Volume fraction] 33.9 % Low 34.0 - 46.0 % [facility] HemeAutoSS Hemoglobin (Bld) [Mass/Vol] 11.3 g/dL Low 12.0 - 16.0 gm/dL [facility] HemeAutoSS Hypochromia Auto Ql (Bld) Present (01/23/23 12:15 PM) Normal [facility] HemeManSS MCH (RBC) [Entitic mass] 24.5 pg Low 27. 0 - 34.0 pg [facility] HemeAutoSS MCHC (RBC) [Mass/Vol] 33.3 g/dL Normal 31.4 - 36.0 gm/dL [facility] HemeAutoSS MCV (RBC) [Entitic vol] 73.6 fL Low 80.0 - 100.0 fL [facility] HemeAutoSS Microcytes Ql (Bld) Present (01/23/23 12:15 PM) Normal [facility] HemeManSS Morphology Cliff (Bld) [Interp] See Morphology (01/23/23 12:15 PM) Normal [facility] HemeManSS Platelet mean volume (Bld) [Entitic vol] 8.1 fL Normal 6.4 - 10.8 fL [facility] HemeAutoSS Platelets (Bld) [#/Vol] 306.0 E9/L Normal 150. 0 - 500.0 E9/L [facility] HemeAutoSS RBC (Bld) [#/Vol] 4.6 E12/L Normal 4.3 - 5.9 E12/L [facility] HemeAutoSS WBC corrected for nucl RBC Auto (Bld) [#/Vol] 6.0 E9/L Normal 4.0 - 11.0 E9/L [facility] HemeAutoSS HEMATOLOGYOrdered By: SYSTEM SYSTEM on 01-23-2023 Basophils/100 WBC (Bld) 0.5 % Normal 0.0 - 2.0 % [facility] HemeAutoSS Basophils/Leukocytes Auto (Bld) [Pure # fraction] 0.0 E9/L Normal 0.0 - 0.2 E9/L [facility] HemeAutoSS Eosinophils/100 WBC (Bld) 0.7 % Normal 0.0 - 8.0 % [facility] HemeAutoSS Eosinophils/Leukocytes Auto (Bld) [Pure # fraction] 0.0 E9/L Normal 0.0 - 0.5 E9/L [facility] HemeAutoSS Lymphocytes/100 WBC (Bld) 21.4 % Normal 14.0 - 50.0 % [facility] HemeAutoSS Lymphocytes/Leukocytes Auto (Bld) [Pure # fraction] 1.3 E9/L Normal 1.0 - 4.0 E9/L [facility] HemeAutoSS Monocytes/100 WBC (Bld) 7.4 % Normal 4.0 - 14.0 % [facility] HemeAutoSS Monocytes/Leukocytes Auto (Bld) [Pure # fraction] 0.4 E9/L Normal 0.2 - 1.0 E9/L [facility] HemeAutoSS Neutrophils/100 WBC (Bld) 70.0 % Normal 36.0 - 75.0 % [facility] HemeAutoSS Neutrophils/Leukocytes Auto (Bld) [Pure # fraction] 4.2 E9/L Normal 2.0 - 7.5 E9/L [facility] HemeAutoSS Hep Func Panelon 01-23-2023 Albumin [Mass/Vol] 4.4 g/dL Normal 3.3-5.0 [facility] Comment on above: Performed By: #### 2 222107, [id number], 2952190, 4105567, 64982106, 1116105, 8785429, 1018733, 62404254 ####[facility] [address] [place] [address] Albumin/Globulin [Mass ratio] 1.3 {ratio} Normal 1.1-2.2 [facility] Comment on above: Performed By: #### 2 561854, 90554595, 9157421, 6841411, 05371999, 7567281, 6796295, 6440738, 98048062 ####[facility] [address] [place] [address] Alk Phos 107 Int._Unit/L High 21-98 [facility] Comment on above: Performed By: #### 2 104921, 55443892, 4259255, 3177000, 57627129, 3065824, 2372605, 1975356, 31444144 ####[facility] [address] [place] [address] ALT 71 Int._Unit/L High 6-46 [facility] Comment on above: Performed By: #### 2 834670, 31687133, 1731630, 4172016, 80821204, 9698456, 2104010, 4875230, 80423986 ####[facility] [address] [place] [address] AST 60 Int._Unit/L High 5-43 [facility] Comment on above: Performed By: #### 2 137972, 34297262, 8043480, 1936306, 89081158, 1897242, 4333661, 3079006, 39441133 ####[facility] [address] [place] [address] Bili Direct 0.2 mg/dL Normal 0.0-0.4 [facility] Comment on above: Performed By: #### 2 123284, 37033308, 2325805, 4573397, 30308628, 7601153, 8282326, 8803121, 73958260 ####[facility] [address] [place] [address] Bili Indirect 0.2 mg/dL Normal 0.1-0.9 [facility] Comment on above: Performed By: #### 2 310791, 88615384, 2497641, 5554040, 05982763, 8574833, 6687081, 0360027, 88953395 ####[facility] [address] [place] [address] Bili Total 0.4 mg/dL Normal 0.0-1.1 [facility] Comment on above: Performed By: #### 2 077984, 77056343, 1307155, 0603897, 57898913, 1159614, 8791876, 6565718, 16348880 ####[facility] [address] [place] [address] Globulin (S) [Mass/Vol] 3.3 g/dL Normal 1.4-4.0 [facility] Comment on above: Performed By: #### 2 029130, 05950835, 8616077, 7964542, 13764211, 3979814, 0379054, 0395744, 86211355 ####[facility] [address] [place] [address] Protein [Mass/Vol] 7.7 g/dL Normal 6.0-7.8 [facility] Comment on above: Performed By: #### 2 335617, 76163764, 9897528, 5192209, 18428608, 0049846, 4520193, 4016025, 25228038 ####[facility] [address] [place] [address] Lipase Levelon 01-23-2023 Lipase Lvl 10 unit/L Low [facility] Comment on above: Performed By: #### 2 911615, 89667900, 7454364, 4969730, 39819920, 3325284, 4271746, 2777575, 39380798 ####[facility] [address] [place] [address] Morphon 01-23-2023 Anisocytosis Ql (Bld) Present Normal [facility] Comment on above: Order Comment: Order Added by Discern Expert. Performed By: #### 2 487225, 29225547, 1727203, 9802028, 39193569, 1034055, 2605364, 2938745, 88544516 ####[facility] [address] [place] [address] Hypochromia Auto Ql (Bld) Present Normal [facility] Comment on above: Order Comment: Order Added by Discern Expert. Performed By: #### 2 080040, 21637817, 7408742, 5622181, 71691434, 8211023, 7716530, 4954652, 02921189 ####[facility] [address] [place] [address] Microcytes Ql (Bld) Present Normal [facility] Comment on above: Order Comment: Order Added by Discern Expert. Performed By: #### 2 704829, 55989495, 8351653, 7474116, 81373453, 8261493, 1436654, 7074122, 89247537 ####[facility] [address] [place] [address] Morphology Cliff (Bld) [Interp] See Morphology Normal [facility] Comment on above: Order Comment: Order Added by Discern Expert. Performed By: #### 2 429014, 21188508, 8090594, 3315272, 36425080, 5818937, 8881454, 9533703, 49223687 ####[facility] [address] [place] [address] SEROLOGYOrdered By: Kath Harden on 01-23-2023 Beta HCG ( test) Ql Positive (01/23/23 12:15 PM) Normal [facility] Man Sero UA With Cult Reflexon 2022 Bilirubin Ql (U) 1+ Abnormal Negative [facility] Comment on above: Performed By: #### 1 1754198 #### [facility] [address] [place] [address] Clarity (U) CLEAR Normal Clear [facility] Comment on above: Performed By: #### 1 8870148 #### [facility] [address] [place] [address] Color (U) DARK KIMMY Invalid Interpretation Code [facility] Comment on above: Performed By: #### 1 9462469 #### [facility] [address] [place] [address] Epithelial cells.squamous LM.HPF (Urine sed) [#/Area] 0-2 Normal 0-2 [facility] Comment on above: Performed By: #### 1 6212917 #### [facility] [address] [place] [address] Glucose Test strip (U) [Mass/Vol] Negative Normal Negative [facility] Comment on above: Performed By: #### 1 1834165 #### [facility] [address] [place] [address] Hemoglobin Ql (U) Negative Normal Negative [facility] Comment on above: Performed By: #### 1 2523358 #### [facility] [address] [place] [address] Ketones (U) [Mass/Vol] 3+ Abnormal Negative [facility] Comment on above: Performed By: #### 1 9763270 #### [facility] [address] [place] [address] Gibbon.plasma/Gibbon.R BC (Bld) [Mass ratio] 0-3 Normal 0-3 [facility] Comment on above: Performed By: #### 1 4346020 #### [facility] [address] [place] [address] Mucus Ql (Urine sed) TRACE Normal [facility] Comment on above: Performed By: #### 1 3948395 #### [facility] [address] [place] [address] Nitrite Ql (U) Negative Normal Negative [facility] Comment on above: Performed By: #### 1 0959658 #### [facility] [address] [place] [address] pH (U) 6.5 [pH] Invalid Interpretation Code 5.0-9.0 [facility] Comment on above: Performed By: #### 1 2526218 #### [facility] [address] [place] [address] Protein (U) [Mass/Vol] 1+ Abnormal Negative [facility] Comment on above: Performed By: #### 1 4565035 #### [facility] [address] [place] [address] Specific gravity (U) [Rel density] 1.025 Invalid Interpretation Code 1.005-1.030 [facility] Comment on above: Performed By: #### 1 6824185 #### [facility] [address] [place] [address] Type of Urine collection method Clean Catch Normal [facility] Comment on above: Performed By: #### 1 4502448 #### [facility] [address] [place] [address] Urobilinogen Qn (U) 1.0 {Karri'U}/dL Normal 0.0-1.0 [facility] Comment on above: Performed By: #### 1 3028650 #### [facility] [address] [place] [address] WBC Auto Ql (U) Negative Normal Negative [facility] Comment on above: Performed By: #### 1 9849365 #### [facility] [address] [place] [address] WBC LM.HPF (Urine sed) [#/Area] 0-5 Normal 0-5 [facility] Comment on above: Performed By: #### 1 2487045 #### [facility] [address] [place] [address] URINALYSISOrdered By: Maranda Muñoz on 01-23-2023 Bilirubin [...] Interpretation Code Negative [facility] UA Auto SS Gibbon.plasma/Gibbon.R BC (Bld) [Mass ratio] 0-3 /HPF Normal [...] [facility] UA Auto SS Urobilinogen Qn (U) 1.6322644 {Karri'U}/dL Normal 0.0 - 1.0 EU/dL [facility] UA Auto SS WBC Auto Ql (U) Negative (01/23/23 2:25 PM) Normal Negative [facility] UA Auto SS WBC LM.HPF (Urine sed) [#/Area] 0-5 /HPF Normal 0-5/HPF [facility] UA Auto SS US 1st Trimesteron 01-23-2023 [...] corresponding gestational age +/- 1 week are: [place] Rump Length: 0.7 cm Composite Ultrasound Age: [...] 2 Transabdominal Ultrasound Performed FHR (bpm) 125 [place] Rump Length (in cm) 0.7 Normal [facility] eGFRon 01-23-2023 GFR/1.73 sq M.predicted among non-blacks MDRD (S/P/Bld) [Vol rate/Area] mL/min/{1.73_m2} Normal >=59 [facility] Comment on above: Order Comment: Order added by Discern Expert. Performed By: #### 2 397046, 86532189, 3023291, 6406774, 09224156, 8271917, 8892548, 8264621, 00958876 ####[facility] [address] [place] [address] Interdisciplinary Note - Soc ial Workeron 01-15-2023 Interdisciplinary Note - School Bus Operator This SW attempted to reach patient again today regarding needed resources. Patient again did not answer and voicemails are not able to be left. SW will remain available. Normal [facility] Interdisciplinary Note - Soc ial Workeron 01-08-2023 Interdisciplinary Note - School Bus Operator This SW attempted to contact patient [...] being full. SW will remain available. Normal [facility] Grp A Strp PCRon 01-02-2023 Grp A Strp Intrl Ctrl Pass Normal [facility] Comment on above: Performed By: #### 1 [id number] #### [facility] [address] [place] [address] S. pyogenes DNA TIM+probe Ql (Throat) Positive Abnormal [facility] Comment on above: Result Comment: Test ing performed using DNA amplification. Performed By: #### 1 0449277 #### [facility] [address] [place] [address] Family Medicine Office/Clini c Noteon 01-01-2023 Family [...] with voice recognition software. Occasional wrong-word or ?rulvu-d-tkfm? substitutions may have occurred due to the inherent limitations of voice recognition software. 17 yo female presents today with cc of bodyaches and headache concern for COVID-19 or strep. Patient states she has a 4-month-old and a 1 and kxgj-hgbb-snm. States she currently does not have custody [...] department. Will place a referral to social insurance specialist see if we can get case management to help her out as she states she does not currently have her insurance card if she should be able to log online and take it 1 she has difficulty with transportation and walks vxpi-zqg-gfkqn to work currently at [employer]. Will see if we can get her [...] understanding. Ordered: Group A Strep by PCR School Bus Operator - Ambulatory Referral 2. BMI 28.0-28.9,adult (Z68.28: Body mass index [BMI] 28.0-28.9, adult) The standard range for ages 18 and older is >=18.5 and < 25 kg/m2. Your BMI today was above this range, this falls in the overweight to obese category and there are medical benefits to weight loss. We can offer couns (more content not included)... Normal [facility] Comment on above: Result Comment: Elec tronically Signed By: Alex ROBERT, Alon Mercedes\.br\Date and Time Signed: 01/01/23 16:26 EST Patient Letter FTon 2022 Patient Letter [facility] [address], [place] [phone] January 01, 2023 JORDIN TYLER [address] [id number] : 2005 Please excuse JORDIN TYLER from [...] illness. Provider Signature: Alon Johnson PA-C Physician Glue Mounter Operator [address] [place] [address] [place] [address] [facility] C Urineon 12-09-2022 Bacteria identified Cx [...] Locations R1: This test was performed at: [facility], [address] [place] [address], [address] , , [facility] Comment on above: Performed By: #### 1 [id number] #### [facility] [address] [place] [address] Discharge Instructionson Discharge Instructions [id number] 3#1.00TIFF [facility] ED Clinical Summaryon 2022 ED Clinical Summary [address] [id number] ED Clinical Summary Person Information Name: JORDIN TYLER [place] Age: 17 Years : 2005 Sex: Female Language: Eritrean PCP: NONE, XXXX Marital Status: Single Phone: [phone] Visit Id: Visit Reason: Test; PREG TEST [...] 12/08/2022 00:29:17 12/08/2022 00:29:17 12/08/2022 00:29:17 ADDRESS: [address] [place] [id number] PHYS DOC NOTES: MEDICAL INFORMATION: Prescriptions Given: Medications to Continue with No Changes Other Medications ibuprofen (ibuprofen 600 mg Tab) 1 Tablets By Mouth every 6 hours. Refills: 0. PATIENT EDUCATION INFORMATION: Instructions: Home Test Information Follow up: With: Address: When: Cara Bullard [address], [facility], [facility] [address] [place] [address] [facility] (1) In 3 days 12/10/2022 Comments: Few concerns about continued can take up test at home in approximately 1 week. Please follow-up with your primary care doctor next 2 to 3 days. Please return to the ED for any new or worsening symptoms. With: Address: When: XXXX [facility] , [place] In 3 days DIAGNOSIS: Encounter for medical screening examination Normal [facility] ED Note-Physicianon 12-09-19 ED Note-Physician Basic [...] and Complexity of Problems Differential Diagnosis: [] [facility] Data External documents reviewed: [] My EKG [...] her primary care doctor in addition to REPAIRER SASH AND DOOR for further evaluation management. She is to [...] 3 days 12/10/2022 EST [address], [address] [place] [address]- Business (1) Additional Instructions: Few concerns about continued [...] 23:15:00) UA (more content not included)... Normal [facility] Comment on above: Result Comment: Elec tronically Signed By: Damaris Jean Baptiste DO.berkley\Date and Time Signed: 12/08/22 02:32 EDT ED [...] Reviewed: 10/25/2020 Elsevier Patient Education ? 2022 [email or web address] Normal [facility] ED Patient Summaryon 023 ED Patient Summary [address] [address] Patient Discharge Instructions Person Information Name: JORDIN TYLER Age: 17 Years Arrival Date: 12/07/2022 22:58:31 Discharge Diagnosis: Encounter for medical screening examination Primary Care Physician: NONE, XXXX Provider Information Primary Provider: Damaris Jean Baptiste DO Advanced Supervisor Gelatin Plant:Monica The exam and treatment you received in the Emergency Department were for an urgent problem and are not intended as complete care. It is important that you follow up with a doctor, nurse practitioner, or physician?s biology research assistant for ongoing care. If your symptoms [...] Instructions: With: Address: When: Cara Bullard [address], [address], [address] [place] [address] [facility] (1) In 3 days 12/10/2022 Comments: Few concerns about continued can take up test at home in approximately 1 week. Please follow-up with your primary care doctor next 2 to 3 days. Please return to the ED for any new or worsening symptoms. With: Address: When: XXXX [place] , [place] In 3 days In the event that this physician does not participate in your insurance network, please consult with your insurance company to find a nearby participating provider. Patient Education Materials: Home Test Information A MESSAGE TO ALL PATIENTS REGARDING OPIOIDS PRESCRIPTION OPIOIDS: WHAT YOU NEED TO KNOW Prescription opioids can be used to help relieve yayhhmgk-px-wqizwd pain and are often prescribed following a [...] Administration (www.fd (more content not included)... Normal [facility] Consent for Treatmenton Consent for Treatment [id number] 8#1.00TIFF Normal [facility] Laboratory - Microbiology an d Antimicrobial susceptibilityOrdered By: Felicita Barrow on 12-07-2022 Bacteria identified Cx Nom (U) 1,000 cfu/ml Mixed skin contaminants [facility] SEROLOGYOrdered By: Stefani Trejo on 12-07-2022 HCG.beta subunit (U) [Moles/Vol] Negative Normal [facility] Man Sero U BetaHcg Qualon 12-07-2022 HCG.beta subunit (U) [Moles/Vol] Negative Normal [facility] Comment on above: Performed By: #### 1 [id number] #### [facility] [address] [place] [address] UA With Cult Reflexon 2022 Bacteria LM Ql (Urine sed) TRACE Normal Trace [facility] Comment on above: Performed By: #### 1 [id number] #### [facility] [address] [place] [address] Bilirubin Ql (U) Negative Normal Negative [facility] Comment on above: Performed By: #### 1 [id number] #### [facility] [address] [place] [address] Clarity (U) SL CLOUDY Abnormal Clear [facility] Comment on above: Performed By: #### 1 [id number] #### [facility] [address] [place] [address] Color (U) DARK YELLO Abnormal Yellow [facility] Comment on above: Performed By: #### 1 [id number] #### [facility] [address] [place] [address] Epithelial cells.squamous LM.HPF (Urine sed) [#/Area] 5-8 Normal 0-2 [facility] Comment on above: Performed By: #### 1 [id number] #### [facility] [address] [place] [address] Glucose Test strip (U) [Mass/Vol] Negative Normal Negative [facility] Comment on above: Performed By: #### 1 [id number] #### [facility] [address] [place] [address] Hemoglobin Ql (U) Negative Normal Negative [facility] Comment on above: Performed By: #### 1 [id number] #### [facility] [address] [place] [address] Ketones (U) [Mass/Vol] Negative Normal Negative [facility] Comment on above: Performed By: #### 1 [id number] #### [facility] [address] [place] [address] Gibbon.plasma/Gibbon.R BC (Bld) [Mass ratio] 0-3 Normal 0-3 [facility] Comment on above: Performed By: #### 1 [id number] #### [facility] [address] [place] [address] Mucus Ql (Urine sed) 3+ Normal [facility] Comment on above: Performed By: #### 1 [id number] #### [facility] [address] [place] [address] Nitrite Ql (U) Negative Normal Negative [facility] Comment on above: Performed By: #### 1 [id number] #### [facility] [address] [place] [address] pH (U) 6.0 [pH] Invalid Interpretation Code 5.0-9.0 [facility] Comment on above: Performed By: #### 1 [id number] #### [facility] [address] [place] [address] Protein (U) [Mass/Vol] TRACE Abnormal Negative [facility] Comment on above: Performed By: #### 1 [id number] #### [facility] [address] [place] [address] Specific gravity (U) [Rel density] >=1.030 Invalid Interpretation Code 1.005-1.030 [facility] Comment on above: Performed By: #### 1 [id number] #### [facility] [address] [place] [address] Type of Urine collection method Clean Catch Normal [facility] Comment on above: Performed By: #### 1 [id number] #### [facility] [address] [place] [address] Urobilinogen Qn (U) 0.2 {Karri'U}/dL Normal 0.0-1.0 [facility] Comment on above: Performed By: #### 1 [id number] #### [facility] [address] [place] [address] WBC Auto Ql (U) Negative Normal Negative [facility] Comment on above: Performed By: #### 1 [id number] #### [facility] [address] [place] [address] WBC LM.HPF (Urine sed) [#/Area] 6-15 Abnormal 0-5 [facility] Comment on above: Performed By: #### 1 [id number] #### [facility] [address] [place] [address] URINALYSISOrdered By: Raman Trejo on 12-07-2022 Bacteria [...] PM) Normal Negative [facility] UA Auto SS Gibbon.plasma/Gibbon.R BC (Bld) [Mass ratio] 0-3 /HPF Normal [...] [facility] UA Auto SS Urobilinogen Qn (U) 0.5857548 {Karri'U}/dL Normal 0.0 - 1.0 EU/dL [facility] UA Auto SS WBC Auto Ql (U) Negative (12/07/22 11:15 PM) Normal Negative [facility] UA Auto SS WBC LM.HPF (Urine sed) [#/Area] 6-15 /HPF Invalid Interpretation Code 0-5/HPF [facility] UA Auto SS ED Note-Physicianon 11-01-19 ED Note-Physician Basic Information Time Seen: Donavan Lawson PA-C 10/30/2022 10:56 Chief Complaint Patient presents with [...] and Complexity of Problems Differential Diagnosis: [] [facility] Data External documents reviewed: [] My EKG [...] q12hr Follow-up With When Contact Information Dental: [facility] [phone] In 3 days 11/02/2022 EDT Additional Instructions: Dental: [facility] [phone] In 3 days 11/02/2022 EDT Additional Instructions: Dental: [facility] [phone] In 3 days 11/02/2022 EDT Additional Instructions: Patient Education Dental Pain, Lcdd-un-Dsbb Attestation Patient seen and evaluated by the physician biology research assistant. Attending physician was present in the emergency department and supervised care. This visit was performed by both the physician and an APC. I performed all aspects of the MDM as documented. This report was transcribed using voice recognition software. Every effort was made to ensure accuracy, however, inadvertently computerized live out nanny mistakes may be present. Appropriate healthcare PPE [...] Viral gastroenteritis (more content not included)... Normal [facility] Comment on above: Result Comment: Elec tronically Signed By: Donavan Lawson PA-C\.br\Date and Time Signed: 10/30/22 12:22 EDT\.br\Electronically Co-Signed By: Steven Alatorre DO\.br\Date and Time Co-Signed: 10/31/22 08:00 EDT Consent for Treatmenton 10-07 Consent for Treatment [id number] #1.00CD:127 Normal [facility] Discharge Instructionson Discharge Instructions [id number] 4#1.00CD:127 Normal [facility] ED Clinical Summaryon 2022 ED Clinical Summary [place] [address] ED Clinical Summary Person Information Name: JORDIN TYLER Kristan/[facility] Age: 17 Years : 2005 Sex: Female Language: Eritrean PCP: NONE, XXXX Marital Status: Single Phone: [phone] Visit Id: Visit Reason: Dental pain; MOUTH [...] 10/30/2022 11:19:01 10/30/2022 11:19:01 10/30/2022 11:19:01 ADDRESS: [address] [place] [id number] PHYS DOC NOTES: MEDICAL INFORMATION: Prescriptions Given: New Medications [facility]/pharmacy #[id number], [address] [place], [place] [id number], [phone] amoxicillin-clavulan ate (Augmentin 875 mg-125 mg Tab) 1 Tablets By Mouth every 12 hours for 10 Days. Refills: 0. Medications to Continue with No Changes Other Medications ibuprofen (ibuprofen 600 mg Tab) 1 Tablets By Mouth every 6 hours. Refills: 0. PATIENT EDUCATION INFORMATION: Instructions: Dental Pain, Mtrp-nf-Xgxm Follow up: With: Address: When: Dental: [facility] [phone] In 3 days 11/02/2022 With: Address: When: Dental: [facility] [phone] In 3 days 11/02/2022 With: Address: When: Dental: [facility] [phone] In 3 days 11/02/2022 DIAGNOSIS: Pain, dental Normal [facility] ED Patient Education Noteon 10-30-2022 ED Patient [...] these instructions at home: Medicines ? Take ydxz-plh-frrqqme and prescription medicines only as told by [...] to the area. Brushing your teeth ? [place] your teeth twice a day using a [...] when you eat or drink. ? Take qdvr-xna-kgyijpu and prescription medicines only as told by [...] Reviewed: 10/27/2020 Elsevier Patient Education ? 2022 Elsevier Inc. Normal [facility] ED Patient Summaryon 023 ED Patient Summary [address] [address] Patient Discharge Instructions Person Information Name: JORDIN TYLER Age: 17 Years Arrival Date: 10/30/2022 10:43:07 Discharge Diagnosis: Pain, dental Primary Care Physician: NONE, XXXX Provider Information Primary Provider: Steven Alatorre DO Advanced Supervisor Gelatin Plant:None The exam and treatment you received in the Emergency Department were for an urgent problem and are not intended as complete care. It is important that you follow up with a doctor, nurse practitioner, or physician?s biology research assistant for ongoing care. If your symptoms become worse or you do not improve as expected and you are unable to reach your usual health care provider, you should return to the Emergency Department. We are available 24 hours a day. JORDIN TYLER has been given the following list of patient education materials, prescriptions and follow-up instructions: Follow-up Instructions: With: Address: When: Dental: [facility] [phone] In 3 days 11/02/2022 With: Address: When: [facility] [phone] In 3 days 11/02/2022 With: Address: When: Dental: [facility] [phone] In 3 days 11/02/2022 In the event that this physician does not participate in your insurance network, please consult with your insurance company to find a nearby participating provider. Patient Education Materials: Dental Pain, Zlxz-la-Trdy A MESSAGE TO ALL PATIENTS REGARDING OPIOIDS PRESCRIPTION OPIOIDS: WHAT YOU NEED TO KNOW Prescription opioids can be used to help relieve wlfebzzh-mw-lmgnvs pain and are often prescribed following a [...] health care professio (more content not included)... [facility] Nursing Assessmenton 023 Nursing Assessment [id number] #1.00CD:127 [facility] Insurance Correspondence Off iceon 08-11-2022 Insurance Correspondence Office [id number] 8#1.00CD:127 Normal [facility] Nursing Assessmenton 023 Nursing Assessment [id number] 0#1.00CD:127 Normal [facility] Chlamydia/Gonococcus, NAAon 08-10-2022 C. trachomatis rRNA TIM+probe Ql (Unsp spec) Negative Invalid Interpretation Code Negative [facility] Comment on above: Performed By: #### 1 [id number] #### [facility] [address] [place] [address] N. gonorrhoeae rRNA TIM+probe Ql (Unsp spec) Negative Invalid Interpretation Code Negative [facility] Comment on above: Result Comment: Perf ormed at: =G [facility] [address] [place], [place] [id number] MD Rodriguez Briones Performed By: #### 1 [id number] #### [facility] [address] [place] [address] Discharge Instructionson Discharge Instructions [id number] 9#1.00CD:127 Normal [facility] Inpatient Clinical Summaryon 08-10-2022 Inpatient Clinical Summary [address] [address] Clinical Summary Person Information Name: JORDIN TYLER Kristan/[facility] Age: 17 Years : 2005 Sex: Female PCP: NONE, XXXX Marital Status: Single Phone: [phone] Race: White Ethnicity: Non- or Language: Eritrean Visit Id: Visit Reason: Speciality: Acuity: 2 PP Enc Type: Inpatient Med Service: Obstetrics Arrival: 08/07/2022 06:12:23 Discharge: 08/10/2022 12:40:00 Dispo Type: Home (Routine DC) Address: [address] [place] [id number] Provider Notes: Diagnosis: 37 weeks gestation of [...] Follow up: With: Address: When: Eduardo Bee [address] [place], [place] [id number] Business (1) Within 6 weeks Comments: Call Dr if fever>100.5 F, heavy bleeding Call for any problems. Patient Education Information: Normal [facility] Inpatient Patient Summaryon 08-10-2022 Inpatient Patient Summary [place] [id number] Patient Discharge Instructions PERSON INFORMATION Name: TYLER JORDIN Steve Date of : 2005 Current Date: 08/10/2022 12:42:13 PHYSICIANS Admitting Physician: Jerry WILSON DO Primary Care Physician: NONE, XXXX PCP Phone Number: Comment: Discharge Diagnosis: 37 weeks gestation of ; Encounter for supervision of normal first , third trimester Condition at Discharge: Improved TYLERJORDIN SHIELDS Steve has been given the following list [...] Follow up: With: Address: When: Eduardo Bee [address], [address] [address] Business (1) Within 6 weeks Comments: Call [...] Clinican/Nurse Signature Date MEDICATION LIST New Medications [id number], [address] [place] [id number], [phone] ibuprofen (ibuprofen 600 mg Tab) 1 Tablets By Mouth every 6 hours. Refills: 0. Last Dose: Next Dose: Pharmacy Information: [facility] , [facility] PATIENT EDUCATION INFORMATION Instructions: Medication Leaflets: You may receive a survey from [employer] asking you to rate your care experience. Your feedback is important and will help us understand what we do well and how we can improve the quality of care we provide to you, your loved ones and our community. It?s an honor to serve you. Thank you for choosing [facility] Normal [facility] C Urineon 08-09-2022 Bacteria identified Cx [...] Locations R1: This test was performed at: [facility], [address] [place] [address], [address] , , [facility] Comment on above: Performed By: #### 1 [id number], [id number] #### [facility] [address] [place] [address] CBC w/Indiceson 08-09-2022 Erythrocyte distribution width (RBC) [Ratio] 16.0 % High 10.9-14.2 [facility] Comment on above: Performed By: #### 1 [id number] #### [facility] [address] [place] [address] Hematocrit (Bld) [Volume fraction] 21.8 % Low 34.0-46.0 [facility] Comment on above: Performed By: #### 1 [id number] #### [facility] [address] [place] [address] Hemoglobin (Bld) [Mass/Vol] 7.1 g/dL Low 12.0-16.0 [facility] Comment on above: Performed By: #### 1 [id number] #### [facility] [address] [place] [address] MCH (RBC) [Entitic mass] 22.8 pg Low 27.0-34.0 [facility] Comment on above: Performed By: #### 1 [id number] #### [facility] [address] [place] [address] MCHC (RBC) [Mass/Vol] 32.6 g/dL Normal 31.4-36.0 [facility] Comment on above: Performed By: #### 1 [id number] #### [facility] [address] [place] [address] MCV (RBC) [Entitic vol] 69.9 fL Low 80.0-100.0 [facility] Comment on above: Performed By: #### 1 [id number] #### [facility] [address] [place] [address] Platelet mean volume (Bld) [Entitic vol] 9.1 fL Normal 6.4-10.8 [facility] Comment on above: Performed By: #### 1 [id number] #### [facility] [address] [place] [address] Platelets (Bld) [#/Vol] 154.0 E9/L Normal 150.0-500.0 [facility] Comment on above: Performed By: #### 1 [id number] #### [facility] [address] [place] [address] RBC (Bld) [#/Vol] 3.1 E12/L Low 4.3-5.9 [facility] Comment on above: Performed By: #### 1 [id number] #### [facility] [address] [place] [address] WBC corrected for nucl RBC Auto (Bld) [#/Vol] 8.1 E9/L Normal 4.0-11.0 [facility] Comment on above: Performed By: #### 1 [id number] #### [facility] [address] [place] [address] Group B Strep by PCRon 08-09 Group B Strep colonization by PCR Negative Normal Negative [facility] Comment on above: Performed By: #### 1 [id number] #### [facility] [address] [place] [address] HEMATOLOGYOrdered By: Ana Rivera on 08-09-2022 Erythrocyte distribution width (RBC) [Ratio] 16.0 % High 10.9 - 14.2 % [facility] HemeAutoSS Hematocrit (Bld) [Volume fraction] 21.8 % [...] [Interp] See Morphology (08/09/22 5:58 AM) Normal [facility] HemeManSS Platelet mean volume (Bld) [Entitic vol] 9.1 fL Normal 6.4 - 10.8 fL [facility] HemeAutoSS Platelets (Bld) [#/Vol] 154.0 E9/L Normal 150. 0 - 500.0 E9/L [facility] HemeAutoSS RBC (Bld) [#/Vol] 3.1 E12/L Low 4.3 - 5.9 E12/L [facility] WBC corrected for nucl RBC Auto (Bld) [#/Vol] 8.1 E9/L Normal 4.0 - 11.0 E9/L [facility] Insurance Correspondence Off iceon 08-09-2022 Insurance Correspondence Office [id number] #1.00CD:127 Normal [facility] Insurance Correspondence Office [id number] #1.00CD:127 Normal [facility] Morphon 08-09-2022 Hypochromia Auto Ql (Bld) Present Normal [facility] Comment on above: Order Comment: Order Added by Discern Expert. Performed By: #### 1 [id number] #### [facility] [address] [place] [address] Microcytes Ql (Bld) Present Normal [facility] Comment on above: Order Comment: Order Added by Discern Expert. Performed By: #### 1 [id number] #### [facility] [address] [place] [address] Morphology Cliff (Bld) [Interp] See Morphology Normal [facility] Comment on above: Order Comment: Order Added by Discern Expert. Performed By: #### 1 [id number] #### [facility] [address] [place] [address] Progress Note-Physicianon Progress Note-Physician Patient: JORDIN TYLER Age: 17 years Sex: Female : 2005 Associated Diagnoses: None Author: Eduardo Bee MD Basic Information PPD #1 from . She [...] 2 tab(s), Oral, q6hr benzocaine-menthol topical 20%-0.5% White [F] 1 spray(s), Topical, q4hr calcium carbonate [...] (AUG 09 07:27) SBP 122 mmHg (AUG 09 07:27) DBP 68 mmHg (AUG 09 07:27) SpO2 100 % (AUG 09 07:28) General: Alert and oriented. HENT: Normocephalic. Respiratory: [...] Plan Condition: Stable. Plan Routine care. Normal [facility] Comment on above: Result Comment: Elec tronically Signed By: Rohit CASE, Eduardo Mendez\.br\Date and Time Signed: 08/09/22 11:29 EDT Vaccinationson 08-09-2022 Vaccinations [id number]# 1.00CD:127 Normal [facility] Nursing Delivery Noteon Nursing Delivery Note Infant Catch:041 SPONTANEOUS Vaginal delivery of FEMALE infant [...] BY FATHER, NO SIGNS OF DISTRESS Normal [facility] Nursing Delivery Note Catch:0110 SPONTANEOUS Vaginal delivery of FEMALE per [...] regular. Color pink. weighed and measured. 0123- PLACED BACK SKIN TO SKIN WITH MOTHER- NO SIGNS OF DISTRESS. BONDING APPROPRIATELY Normal [facility] Comment on above: Other Comment: WRONG [...] Review: Problems (Active Problems Only) (SNOMED CT: 722895721, Onset: 11/05/21) Attention deficit hyperactivity disorder, combined type (SNOMED CT: 05861605, Onset: --) Dyspnea (SNOMED CT: 704310554, Onset: --) Finding related to (SNOMED CT: 533959359, Onset: --) Age mother conceived under 17 (Other: , Onset: --) Infection (SNOMED CT: 07209760, Onset: --) Delivery Summary Baby A Membrane [...] 3:01 E (more content not included)... Normal [facility] Comment on above: Result Comment: Elec [...] \.br\.br\Da te: 01/18/22\.br \EGA: 8w5d \.br\Weight (lbs [facility] Comment on above: Result Comment: Elec tronically Signed By: Jerry WILSON DO\.br\Date and Time Signed: 08/08/22 00:08 EDT ABO/Rhon 08-07-2022 ABO/Rh Positive Invalid Interpretation Code [facility] Comment on above: Performed By: #### 1 [id number], [id number] #### [facility] [address] [place] [address] ABO/Rh History Checkon 08-07 ABO/Rh History Check Verified Hx Blood Type Normal [facility] Comment on above: Performed By: #### 1 [id number], [id number] #### [facility] [address] [place] [address] ABSCon 08-07-2022 ABSC Gel Interp Negative Normal [facility] Comment on above: Performed By: #### 1 [id number], [id number] #### [facility] [address] [place] [address] BLOOD BANKOrdered By: Brandie Garcia on 08-07-2022 ABO/Rh Interp Positive Invalid Interpretation Code [facility] BB Subsection ABSC Gel Interp Negative (08/07/22 12:49 PM) Normal [facility] BB Subsection Blood Bank ID#on 08-07-2022 BBID# [id number] Invalid Interpretation Code [facility] Comment on above: Performed By: #### 1 [id number], [id number] #### [facility] [address] [place] [address] CBC w/Indiceson 08-07-2022 Erythrocyte distribution width (RBC) [Ratio] 16.0 % High 10.9-14.2 [facility] Comment on above: Performed By: #### 2 771821, [id number] #### [facility] [address] [place] [address] Hematocrit (Bld) [Volume fraction] 25.6 % Low 34.0-46.0 [facility] Comment on above: Performed By: #### 2 761161, [id number] #### [facility] [address] [place] [address] Hemoglobin (Bld) [Mass/Vol] 8.0 g/dL Low 12.0-16.0 [facility] Comment on above: Performed By: #### 2 245998, [id number] #### [facility] [address] [place] [address] MCH (RBC) [Entitic mass] 21.9 pg Low 27.0-34.0 [facility] Comment on above: Performed By: #### 2 328302, [id number] #### [facility] [address] [place] [address] MCHC (RBC) [Mass/Vol] 31.3 g/dL Low 31.4-36.0 [facility] Comment on above: Performed By: #### 2 176128, [id number] #### [facility] [address] [place] [address] MCV (RBC) [Entitic vol] 69.9 fL Low 80.0-100.0 [facility] Comment on above: Performed By: #### 2 299943, [id number] #### [facility] [address] [place] [address] Platelet mean volume (Bld) [Entitic vol] 8.6 fL Normal 6.4-10.8 [facility] Comment on above: Performed By: #### 2 579836, [id number] #### [facility] [address] [place] [address] Platelets (Bld) [#/Vol] 232.0 E9/L Normal 150.0-500.0 [facility] Comment on above: Performed By: #### 2 268685, [id number] #### [facility] [address] [place] [address] RBC (Bld) [#/Vol] 3.7 E12/L Low 4.3-5.9 [facility] Comment on above: Performed By: #### 2 148182, [id number] #### [facility] [address] [place] [address] WBC corrected for nucl RBC Auto (Bld) [#/Vol] 8.6 E9/L Normal 4.0-11.0 [facility] Comment on above: Performed By: #### 2 683213, [id number] #### [facility] [address] [place] [address] Consent for Procedure/Surger yon 08-07-2022 Consent for Procedure/Surgery [id number] 8#1.00CD:127 Normal [facility] Consent for Treatmenton Consent for Treatment [id number] #1.00CD:127 Normal [facility] Consent for Treatment [id number] #1.00CD:127 Normal [facility] Discharge Instructionson Discharge Instructions [id number] 6#1.00CD:127 Normal [facility] HEMATOLOGYOrdered By: Briseida Rose on 08-07-2022 Anisocytosis Ql (Bld) Present (08/07/22 12:49 PM) Normal [facility] Erythrocyte distribution width (RBC) [Ratio] 16.0 [...] 8.6 E9/L Normal 4.0 - 11.0 E9/L [facility] HemeAuto[facility] Help Me Grow Referralon 07-0 Help Me Grow Referral [id number] 2#1.00CD:127 Normal [facility] Insurance Correspondence Off iceon 08-07-2022 Insurance Correspondence Office [id number] 8#1.00CD:127 Normal [facility] - Microbiology an d Antimicrobial susceptibilityOrdered By: Maranda uMñoz on 08-07-2022 Bacteria identified Cx Nom (U) 2,000 cfu/ml Mixed skin contaminants [facility] Morphon 08-07-2022 Anisocytosis Ql (Bld) Present Normal [facility] Comment on above: Order Comment: Order Added by Discern Expert. Performed By: #### 2 301142, [id number] #### [facility] [address] [place] [address] Hypochromia Auto Ql (Bld) Present Normal [facility] Comment on above: Order Comment: Order Added by Discern Expert. Performed By: #### 2 410049, [id number] #### [facility] [address] [place] [address] Microcytes Ql (Bld) Present Normal [facility] Comment on above: Order Comment: Order Added by Discern Expert. Performed By: #### 2 965493, [id number] #### [facility] [address] [place] [address] Morphology Cliff (Bld) [Interp] See Morphology Normal [facility] Comment on above: Order Comment: Order Added by Discern Expert. Performed By: #### 2 280133, [id number] #### [facility] [address] [place] [address] Ovalocytes LM Ql (Bld) Present Normal [facility] Comment on above: Order Comment: Order Added by Discern Expert. Performed By: #### 2 798159, [id number] #### [facility] [address] [place] [address] Platelets Large LM Ql (Bld) Present Normal [facility] Comment on above: Order Comment: Order Added by Discern Expert. Performed By: #### 2 985955, [id number] #### [facility] [address] [place] [address] Polychromasia LM Ql (Bld) Present [facility] Comment on above: Order Comment: Order Added by Discern Expert. Performed By: #### 2 823995, [id number] #### [facility] [address] [place] [address] [employer] Records [id number] 9#1.00CD:127 Normal [facility] Progress Note-Physicianon Progress Note-Physician Patient: JORDIN TYLER Age: 17 years Sex: Female : 2005 Associated Diagnoses: None Author: Ra Casas Jr., DO Postoperative Information Postoperative disposition: Postoperative disposition: Day 2. Optimetrix number: Optimetrix number [id number]. Anesthetic utilized: Regional: Epidural. Physical Examination Hemodynamically stable. Pain Assessment: Controlled. General: Awake, Alert, Appropriate. Respiratory: Adequate air exchange. Cardiovascular: Stable. Neurological: Normal sensory function. Assessment Anesthetic outcome No post-epidural complications noted.. Review / Management Condition: Stable. Plan Transfer/Discharge: Stable for discharge from anesthetic standpoint.. Normal [facility] Comment on above: Result Comment: Elec [...] Transfer/Discharge: Stable for discharge from anesthetic standpoint.. [facility] Comment on above: Result Comment: Elec [...] hyperactivity disorder), combined type / SNOMED CT 99391464 / Confirmed Age mother conceived under 17 / Patient Care / Confirmed / SNOMED CT 767777443 / Confirmed Shortness of breath in pediatric patient / SNOMED CT 764933495 / Confirmed Very young maternal age, antepartum / SNOMED CT 131991225 / Confirmed Resolved: Acute gastroenteritis / SNOMED CT 127486691 resolved per patient Resolved: Acute low back pain due to trauma / SNOMED CT 038315737 resolved per patient Resolved: Blurry vision, left eye / SNOMED CT 840659584 resolved per patient Resolved: Chest pain / SNOMED CT 45898027 resolved per patient Resolved: Inspiratory stridor / SNOMED CT 919777116 Resolved: Post-traumatic stress syndrome / SNOMED CT 06097720 resolved per patient. Resolved: / SNOMED CT 997021024 Resolved: Strep pharyngitis / SNOMED CT 94832038 Resolved: Viral gastroenteritis / SNOMED CT 434645816 Resolved: Vomiting / SNOMED CT 2243835639 Canceled: None / SNOMED CT 999195632 Review of Systems Respiratory: Negative. Cardiovascular: Negative. [...] The PCEA was started at 1706. Normal [facility] Comment on above: Result Comment: Elec tronically Signed By: Ra Casas Jr., DO\Date and Time Signed: 08/07/22 17:21 EDT Reference Laboratory Testing Ordered By: Olman DomainUser on 08-07-2022 C. trachomatis rRNA TIM+probe Ql (Unsp spec) Negative Invalid Interpretation Code Negative [facility] N. gonorrhoeae rRNA TIM+probe Ql (Unsp spec) Negative Invalid Interpretation Code Negative [facility] Comment on above: Result Comment: Perf ormed at: =G [facility] [address] TANIA Traore [id number] MD Rodriguez Briones UA With Cult Reflexon 2022 Type of Urine collection method Catheter Normal [facility] Comment on above: Order Comment: Urina ry Catheter Insertion triggered Urinalysis With Culture Reflex order by discern. Performed By: #### 1 [id number] #### [facility] [address] [place] [address] Bilirubin Ql (U) Negative Normal Negative [facility] Comment on above: Order Comment: Urina ry Catheter Insertion triggered Urinalysis With Culture Reflex order by discern. Performed By: #### 1 [id number] #### [facility] [address] [place] [address] Clarity (U) CLEAR Normal Clear [facility] Comment on above: Order Comment: Urina ry Catheter Insertion triggered Urinalysis With Culture Reflex order by discern. Performed By: #### 1 [id number] #### [facility] [address] [place] [address] Color (U) YELLOW Normal Yellow [facility] Comment on above: Order Comment: Urina ry Catheter Insertion triggered Urinalysis With Culture Reflex order by discern. Performed By: #### 1 [id number] #### [facility] [address] [place] [address] Epithelial cells.squamous LM.HPF (Urine sed) [#/Area] 0-2 Normal 0-2 [facility] Comment on above: Order Comment: Urina ry Catheter Insertion triggered Urinalysis With Culture Reflex order by discern. Performed By: #### 1 [id number] #### [facility] [address] [place] [address] Glucose Test strip (U) [Mass/Vol] Negative Normal Negative [facility] Comment on above: Order Comment: Urina ry Catheter Insertion triggered Urinalysis With Culture Reflex order by discern. Performed By: #### 1 [id number] #### [facility] [address] [place] [address] Hemoglobin Ql (U) 3+ Abnormal Negative [facility] Comment on above: Order Comment: Urina ry Catheter Insertion triggered Urinalysis With Culture Reflex order by discern. Performed By: #### 1 [id number] #### [facility] [address] [place] [address] Ketones (U) [Mass/Vol] Negative Normal Negative [facility] Comment on above: Order Comment: Urina ry Catheter Insertion triggered Urinalysis With Culture Reflex order by discern. Performed By: #### 1 [id number] #### [facility] [address] [place] [address] Gibbon.plasma/Gibbon.R BC (Bld) [Mass ratio] 4-20 Normal 0-3 [facility] Comment on above: Order Comment: Urina ry Catheter Insertion triggered Urinalysis With Culture Reflex order by discern. Performed By: #### 1 [id number] #### [facility] [address] [place] [address] Nitrite Ql (U) Negative Normal Negative [facility] Comment on above: Order Comment: Urina ry Catheter Insertion triggered Urinalysis With Culture Reflex order by discern. Performed By: #### 1 [id number] #### [facility] [address] [place] [address] pH (U) 8.0 [pH] Invalid Interpretation Code 5.0-9.0 [facility] Comment on above: Order Comment: Urina ry Catheter Insertion triggered Urinalysis With Culture Reflex order by discern. Performed By: #### 1 [id number] #### [facility] [address] [place] [address] Protein (U) [Mass/Vol] Negative Normal Negative [facility] Comment on above: Order Comment: Urina ry Catheter Insertion triggered Urinalysis With Culture Reflex order by discern. Performed By: #### 1 [id number] #### [facility] [address] [place] [address] Specific gravity (U) [Rel density] 1.015 Invalid Interpretation Code 1.005-1.030 [facility] Comment on above: Order Comment: Urina ry Catheter Insertion triggered Urinalysis With Culture Reflex order by discern. Performed By: #### 1 [id number] #### [facility] [address] [place] [address] Urobilinogen Qn (U) 0.2 {Karri'U}/dL Normal 0.0-1.0 [facility] Comment on above: Order Comment: Urina ry Catheter Insertion triggered Urinalysis With Culture Reflex order by discern. Performed By: #### 1 [id number] #### [facility] [address] [place] [address] WBC Auto Ql (U) Negative Normal Negative [facility] Comment on above: Order Comment: Urina ry Catheter Insertion triggered Urinalysis With Culture Reflex order by discern. Performed By: #### 1 [id number] #### [facility] [address] [place] [address] WBC LM.HPF (Urine sed) [#/Area] 0-5 Normal 0-5 [facility] Comment on above: Order Comment: Urina ry Catheter Insertion triggered Urinalysis With Culture Reflex order by discern. Performed By: #### 1 [id number] #### [facility] [address] [place] [address] Bacteria LM Ql (Urine sed) 1+ /HPF Abnormal Trace [facility] Comment on above: Performed By: #### 1 [id number], [id number] #### [facility] [address] [place] [address] Bilirubin Ql (U) Negative Normal Negative [facility] Comment on above: Performed By: #### 1 4708550, [id number] #### [facility] [address] [place] [address] Clarity (U) CLEAR Normal Clear [facility] Comment on above: Performed By: #### 1 [id number], [id number] #### [facility] [address] [place] [address] Color (U) YELLOW Normal Yellow [facility] Comment on above: Performed By: #### 1 [id number], [id number] #### [facility] [address] [place] [address] Crystals LM Ql (Urine sed) Present Normal [facility] Comment on above: Performed By: #### 1 [id number], [id number] #### [facility] [address] [place] [address] Epithelial cells.squamous LM.HPF (Urine sed) [#/Area] 9-10 Normal 0-2 [facility] Comment on above: Performed By: #### 1 [id number], [id number] #### [facility] [address] [place] [address] Glucose Test strip (U) [Mass/Vol] Negative Normal Negative [facility] Comment on above: Performed By: #### 1 [id number], [id number] #### [facility] [address] [place] [address] Hemoglobin Ql (U) Negative Normal Negative [facility] Comment on above: Performed By: #### 1 [id number], [id number] #### [facility] [address] [place] [address] Ketones (U) [Mass/Vol] Negative Normal Negative [facility] Comment on above: Performed By: #### 1 [id number], [id number] #### [facility] [address] [place] [address] Gibbon.plasma/Gibbon.R BC (Bld) [Mass ratio] 0-3 Normal 0-3 [facility] Comment on above: Performed By: #### 1 [id number], [id number] #### [facility] [address] [place] [address] Mucus Ql (Urine sed) 1+ Normal [facility] Comment on above: Performed By: #### 1 [id number], [id number] #### [facility] [address] [place] [address] Nitrite Ql (U) Negative Normal Negative [facility] Comment on above: Performed By: #### 1 [id number], [id number] #### [facility] [address] [place] [address] pH (U) 7.0 [pH] Invalid Interpretation Code 5.0-9.0 [facility] Comment on above: Performed By: #### 1 [id number], 7970166 #### [facility] [address] [place], [place] [address] Protein (U) [Mass/Vol] TRACE Abnormal Negative [facility] Comment on above: Performed By: #### 1 [id number], 9240084 #### [facility] [address] [place] [address] Specific gravity (U) [Rel density] 1.020 Invalid Interpretation Code 1.005-1.030 [facility] Comment on above: Performed By: #### 1 4368872, 2977088 #### [facility] [address] [place] [address] Type of Urine collection method Clean Catch Normal [facility] Comment on above: Performed By: #### 1 [id number], [id number] #### [facility] [address] [place] [address] Urobilinogen Qn (U) 2.0 {Karri'U}/dL Abnormal 0.0-1.0 [facility] Comment on above: Performed By: #### 1 6864423, 8169195 #### [facility] [address] [place] [address] WBC Auto Ql (U) 1+ Abnormal Negative [facility] Comment on above: Performed By: #### 1 2891698, 7166222 #### [facility] [address] [place] [address] WBC LM.HPF (Urine sed) [#/Area] 6-15 Abnormal 0-5 [facility] Comment on above: Performed By: #### 1 4484028, [id number] #### [facility] [address] [place], [place] [address] URINALYSISOrdered By: Anne-Marie Leonard on 08-07-2022 Bilirubin Ql (U) Negative (08/07/22 5:42 PM) Normal Negative [facility] UA Auto SS Clarity (U) Clear (08/07/22 [...] PM) Normal Negative [facility] UA Auto SS Gibbon.plasma/Gibbon.R BC (Bld) [Mass ratio] 4-20 /HPF Normal [...] [facility] UA Auto SS Urobilinogen Qn (U) 0.6999928 {Karri'U}/dL Normal 0.0 - 1.0 EU/dL [facility] [...] AM) Normal Negative [facility] UA Auto SS Gibbon.plasma/Gibbon.R BC (Bld) [Mass ratio] 0-3 /HPF Normal [...] [facility] UA Auto SS Urobilinogen Qn (U) 2.5414742 {Karri'U}/dL Invalid Interpretation Code 0.0 - 1.0 EU/dL [facility] UA Auto SS WBC Auto Ql (U) 1+ *ABN* (08/07/22 6:30 AM) Invalid Interpretation Code Negative [facility] UA Auto SS WBC LM.HPF (Urine sed) [#/Area] 6-15 /HPF Invalid Interpretation Code 0-5/HPF [facility] UA Auto SS Consent for Treatmenton 07-08 Consent for Treatment [id number]#1.00CD:127 Normal [facility] Consent for Treatment [id number] #1.00CD:127 Normal [facility] Discharge Instructionson Discharge Instructions [id number]# 1.00CD:127 Normal [facility] Inpatient Clinical Summaryon 08-04-2022 Inpatient Clinical Summary [address] [address] Clinical Summary Person Information Name: JORDIN TYLER [facility]an[facility] Age: 17 Years : 2005 Sex: Female PCP: NONE, XXXX Marital Status: Single Phone: [phone] Race: White Ethnicity: Non- or Language: Eritrean Visit Id: Visit Reason: ABD PAIN AND PRESSURE Speciality: Acuity: Enc Type: OB Triage Med Service: Obstetrics Arrival: 08/04/2022 10:49:09 Discharge: 08/04/2022 13:15:00 Dispo Type: Home (Routine DC) Address: [address] [place] [id number] Provider Notes: Diagnosis: Problems Active Very young [...] Follow up: With: Address: When: Eduardo Bee Within 1 week Comments: Appointment has already been scheduled Call for any problems. Call for severe abdominal pain Call physician if symptoms worsen Return for contractions closer, longer, harder Return for decreased movement Return if ruptured membranes or vaginal bleeding Patient Education Information: Normal [facility] Inpatient Patient Summaryon 08-04-2022 Inpatient Patient Summary [place] [id number] Patient Discharge Instructions PERSON INFORMATION Name: JORDIN TYLER Date of : 2005 Current Date: 08/04/2022 13:45:12 PHYSICIANS Admitting Physician: Jerry WILSON DO Primary Care Physician: NONE, XXXX PCP Phone Number: Comment: Discharge Diagnosis: Condition at Discharge: TYLER JORDIN A has been given the following list of [...] pending test results: Follow up: With: Address: Berenice: Eduardo Bee Within 1 week Comments: Appointment has [...] Leaflets: You may receive a survey from [employer] asking you to rate your care experience. Your feedback is important and will help us understand what we do well and how we can improve the quality of care we provide to you, your loved ones and our community. It?s an honor to serve you. Thank you for choosing [facility] Normal [facility] Insurance Correspondenceon 0 08-04-2022 Insurance Correspondence [id number]# 1.00CD:127 Normal [facility] UA With Cult Reflexon 2022 Bacteria LM Ql (Urine sed) TRACE Normal Trace [facility] Comment on above: Performed By: #### 1 [id number] #### [facility] [address] [place] [address] Bilirubin Ql (U) Negative Normal Negative [facility] Comment on above: Performed By: #### 1 [id number] #### [facility] [address] [place] [address] Clarity (U) SL CLOUDY Abnormal Clear [facility] Comment on above: Performed By: #### 1 [id number] #### [facility] [address] [place] [address] Color (U) YELLOW Normal Yellow [facility] Comment on above: Performed By: #### 1 [id number] #### [facility] [address] [place] [address] Epithelial cells.squamous LM.HPF (Urine sed) [#/Area] /[HPF] Normal 0-2 [facility] Comment on above: Performed By: #### 1 [id number] #### [facility] [address] [place] [address] Glucose Test strip (U) [Mass/Vol] Negative Normal Negative [facility] Comment on above: Performed By: #### 1 [id number] #### [facility] [address] [place] [address] Hemoglobin Ql (U) Negative Normal Negative [facility] Comment on above: Performed By: #### 1 [id number] #### [facility] [address] [place] [address] Ketones (U) [Mass/Vol] Negative Normal Negative [facility] Comment on above: Performed By: #### 1 [id number] #### [facility] [address] [place] [address] Gibbon.plasma/Gibbon.R BC (Bld) [Mass ratio] 0-3 Normal 0-3 [facility] Comment on above: Performed By: #### 1 [id number] #### [facility] [address] [place] [address] Nitrite Ql (U) Negative Normal Negative [facility] Comment on above: Performed By: #### 1 [id number] #### [facility] [address] [place] [address] pH (U) 7.5 [pH] Invalid Interpretation Code 5.0-9.0 [facility] Comment on above: Performed By: #### 1 [id number] #### [facility] [address] [place] [address] Protein (U) [Mass/Vol] Negative Normal Negative [facility] Comment on above: Performed By: #### 1 [id number] #### [facility] [address] [place] [address] Specific gravity (U) [Rel density] 1.015 Invalid Interpretation Code 1.005-1.030 [facility] Comment on above: Performed By: #### 1 [id number] #### [facility] [address] [place] [address] Type of Urine collection method Clean Catch Normal [facility] Comment on above: Performed By: #### 1 [id number] #### [facility] [address] [place] [address] Urobilinogen Qn (U) 0.2 {Karri'U}/dL Normal 0.0-1.0 [facility] Comment on above: Performed By: #### 1 [id number] #### [facility] [address] [place] [address] WBC Auto Ql (U) TRACE Abnormal Negative [facility] Comment on above: Performed By: #### 1 [id number] #### [facility] [address] [place] [address] WBC LM.HPF (Urine sed) [#/Area] 0-5 Normal 0-5 [facility] Comment on above: Performed By: #### 1 [id number] #### [facility] [address] [place] [address] URINALYSISOrdered By: Heidi Barnes on 08-04-2022 Bacteria LM Ql (Urine sed) Trace /HPF Normal Trace/HPF [facility] UA Auto SS Bilirubin Ql (U) Negative (08/04/22 11:11 AM) Normal Negative [facility] UA Auto SS Clarity (U) Slightly Cloudy [...] AM) Normal Negative [facility] UA Auto SS Gibbon.plasma/Gibbon.R BC (Bld) [Mass ratio] 0-3 /HPF Normal [...] [facility] UA Auto SS Urobilinogen Qn (U) 0.6377103 {Karri'U}/dL Normal 0.0 - 1.0 EU/dL [facility] UA Auto SS WBC Auto Ql (U) Trace *ABN* (08/04/22 11:11 AM) Invalid Interpretation Code Negative [facility] UA Auto SS WBC LM.HPF (Urine sed) [#/Area] 0-5 /HPF Normal 0-5/HPF [facility] UA Auto SS CHEMISTRYOrdered By: SYSTEM SYSTEM on 01-18-2022 Anion gap [Moles/Vol] 15 mmol/L Normal 6 - 16 mEq/L [facility] Remisol Calcium [Mass/Vol] 9.0 mg/dL Normal 8.9 - 11. 1 mg/dL [facility] Chloride [Moles/Vol] 103 mmol/L Normal 101 - 1 11 mmol/L [facility] CO2 [Moles/Vol] 21 mmol/L Normal 21 - 31 mmol/L [facility] Creatinine [Mass/Vol] 0.6 mg/dL Normal 0.5 - 1.3 mg/dL [facility] Remisol GFR/1.73 sq M.predicted among blacks MDRD (S/P/Bld) [Vol rate/Area] mL/min/1.73 m2 Normal >=59mL/min/1 .73 m2 [facility] Chem S GFR/1.73 sq M.predicted among non-blacks MDRD (S/P/Bld) [Vol rate/Area] mL/min/1.73 m2 Normal >=59mL/min/1 .73 m2 [facility] Chem S Glucose [Mass/Vol] 94 mg/dL Normal 55 - 199 mg/dL [facility] Remisol Potassium [Moles/Vol] 3.7 mmol/L Normal 3.5 - 5.3 mmol/L [facility] Remisol Sodium [Moles/Vol] 135 mmol/L Normal 135 - 145 mmol/L [facility] Urea nitrogen [Mass/Vol] 7 mg/dL Normal 5 - 21 mg/d L [facility] Remisol Urea nitrogen/Creatinine [Mass ratio] 12 mg/mg Normal 10 - 20 [facility] Remisol CHEMISTRYOrdered By: Austin garcia on 01-18-2022 HCG.beta subunit Qn 127425 m[IU]/mL High 1 - 3 mIU/m L [facility] Chem S MICRO OTHER TESTSOrdered By: Austin Cabrera on 01-18-2022 Rapid COV Int NEG Ctl Pass (01/18/22 1:19 AM) Normal [facility] Man Sero Rapid COV Int POS Ctl Pass (01/18/22 1:19 AM) Normal [facility] Man Sero SARS-CoV+SARS-CoV-2 (COVID-19) Ag IA.rapid Ql (Resp) Not Detected (01/18/22 1:19 AM) Normal Not Detected [facility] URINALYSISOrdered By: Austin Cabrera on 01-18-2022 Bacteria LM Ql (Urine sed) Trace /HPF Normal Trace/HPF [facility] UA Auto SS Bilirubin Ql (U) 1+ [...] Interpretation Code Negative [facility] UA Auto SS Gibbon.plasma/Gibbon.R BC (Bld) [Mass ratio] 0-3 /HPF Normal [...] [facility] UA Auto SS Urobilinogen Qn (U) 0.0912540 {Karri'U}/dL Normal 0.0 - 1.0 EU/dL [facility] [...] [facility] HemeAutoSS Hypochromia Auto Ql (Bld) Present (12/1/22 8:13 AM) Normal [facility] HemeManSS MCH (RBC) [...] (U) [Moles/Vol] Positive (01/05/22 7:59 AM) Normal [facility] Man [facility]ero URINALYSISOrdered By: [...] Interpretation Code Negative [facility] UA Auto SS Gibbon.plasma/Gibbon.R BC (Bld) [Mass ratio] 0-3 /HPF Normal [...] [facility] UA Auto SS Urobilinogen Qn (U) 1.2524456 {Karri'U}/dL Normal 0.0 - 1.0 EU/dL [facility] [...] Interpretation Code Negative [facility] UA Auto SS Gibbon.plasma/Gibbon.R BC (Bld) [Mass ratio] 0-3 /HPF Normal [...] [facility] UA Auto SS Urobilinogen Qn (U) 0.3668163 {Karri'U}/dL Normal 0.0 - 1.0 EU/dL [facility] [...] 06-07-2021 ABO/Rh Interp Positive Invalid Interpretation Code FT BB Subsection ABSC Gel Interp Negative (06/07/21 7:46 AM) Normal [facility] BB Subsection HEMATOLOGYOrdered By: [...] 5.6 E9/L Normal 4.0 - 10.5 E9/L [facility] HemeAutoSS URINALYSISOrdered By: Delaney marley on 06-07-2021 [...] AM) Normal Negative [facility] UA Auto SS Gibbon.plasma/Gibbon.R BC (Bld) [Mass ratio] 0-3 /HPF Normal [...] Spec Desc Mendoza (06/07/21 10:15 AM) Normal [facility] UA Auto SS Urobilinogen Qn (U) 0.5316652 {Karri'U}/dL Normal 0.0 - 1.0 EU/dL [facility] UA Auto SS WBC Auto Ql (U) Negative (06/07/21 10:15 AM) Normal Negative [facility] UA Auto SS WBC LM.HPF (Urine sed) [#/Area] 0-5 /HPF Normal 0-5/HPF [facility] UA Auto SS CHLAMYDIA/GONOCOCCUS TIM (SW AB/URINE/PAPon 11-04-2020 Chlamydia trachomatis, TIM CRAVEN Normal [facility] Comment on above: Result Comment: Test Not Performed. The transport device submitted contained a cleaning swab. On future collections the cleaning swab should be discarded after use; then the specimen should be collected using the smaller collection swab. contacted Dior at your facility on 11-04-2020 Performed at: =G Performed By: #### C T/NGNA #### [facility] [address] [place] [address] Dr. Maynor Bojorquez Neisseria gonorrhoeae, TIM TNP Normal [facility] Comment on above: Result Comment: Test not performed Performed at: =G Performed By: #### C T/NGNA #### [facility] [address] [place] [address] Dr. Maynor Bojorquez PDF [facility] Comment on above: Result Comment: Perf ormed at: CB Performed By: #### C T/NGNA #### [facility] [address] [place] [address] Dr. Maynor Bojorquez ABO AND RH TYPEon 11-01-2020 ABO and Rh group Nom (Bld) ABO Rh Typing A Rh Positive [facility] Comment on above: Performed By: #### A BORH #### [facility] [address] [place] [address] Dr. Maynor Bojorquez CBC AUTO DIFFon 11-01-2020 BASO # 0.0 103/ul Normal 0.0-0.1 [facility] Comment on above: Performed By: #### C BC #### [facility] [address] [place] [address] Dr. Maynor Bojorquez Basophils/100 WBC (Bld) 0.4 % Normal 0.2-2.0 [facility] Comment on above: Performed By: #### C BC #### [facility] [address] [place] [address] Dr. Maynor Bojorquez EO # 0.1 103/ul Normal 0.0-0.7 [facility] Comment on above: Performed By: #### C BC #### [facility] [address] [place] [address] Dr. Maynor Bojorquez Eosinophils/100 WBC (Bld) 0.8 % Critically low 0.9-7.0 [facility] Comment on above: Performed By: #### C BC #### [facility] [address] [place] [address] Dr. Maynor Bojorquez Erythrocyte distribution width (RBC) [Ratio] 13.0 % Normal 11.0-15.0 [facility] Comment on above: Performed By: #### C BC #### [facility] [address] [place] [address] Dr. Maynor Bojorquez Hematocrit (Bld) [Volume fraction] 37.4 % Normal 36.0-48.0 [facility] Comment on above: Performed By: #### C BC #### [facility] [address] [place] [address] Dr. Maynor Bojorquez Hemoglobin (Bld) [Mass/Vol] 13.0 g/dL Normal 12.0-16.0 [facility] Comment on above: Performed By: #### C BC #### [facility] [address] [place] [address] Dr. Maynor Bojorquez IG # 0.03 10e3/ul Normal 0.00-0.03 [facility] Comment on above: Performed By: #### C BC #### [facility] [address] [place] [address] Dr. Maynor Bojorquez IG % 0.4 % Normal 0.0-0.5 [facility] Comment on above: Performed By: #### C BC #### [facility] [address] [place] [address] Dr. Maynor Bojorquez LYMPH # 1.7 103/ul Normal 1.2-3.8 [facility] Comment on above: Performed By: #### C BC #### [facility] [address] [place] [address] Dr. Maynor Bojorquez Lymphocytes/100 WBC (Bld) 22.7 % Normal 20.5-60.0 [facility] Comment on above: Performed By: #### C BC #### [facility] [address] [place] [address] Dr. Maynor Bojorquez MANUAL DIFF REQ NO Normal [facility] Comment on above: Performed By: #### C BC #### [facility] [address] [place] [address] Dr. Maynor Bojorquez MCH (RBC) [Entitic mass] 29.1 pg Normal 26.7-34.0 [facility] Comment on above: Performed By: #### C BC #### [facility] [address] [place] [address] Dr. Maynor Bojorquez MCHC (RBC) [Mass/Vol] 34.8 g/dL Normal 29.9-35.2 [facility] Comment on above: Performed By: #### C BC #### [facility] [address] [place] [address] Dr. Maynor Bojorquez MCV (RBC) [Entitic vol] 83.9 fL Normal 79.1-95.6 [facility] Comment on above: Performed By: #### C BC #### [facility] [address] [place] [address] Dr. Maynor Bojorquez MONO # 0.7 103/ul Normal 0.3-0.8 [facility] Comment on above: Performed By: #### C BC #### [facility] [address] [place] [address] Dr. Maynor Bojorquez Monocytes/100 WBC (Bld) 9.5 % Normal 1.7-12.0 [facility] Comment on above: Performed By: #### C BC #### [facility] [address] [place] [address] Dr. Maynor Bojorquez NEUT # 5.0 103/ul Normal 1.4-6.5 [facility] Comment on above: Performed By: #### C BC #### [facility] [address] [place] [address] Dr. Maynor Bojorquez Neutrophils/100 WBC (Bld) 66.2 % Normal 43.0-75.0 [facility] Comment on above: Performed By: #### C BC #### [facility] [address] [place] [address] Dr. Maynor Bojorquez Platelet mean volume (Bld) [Entitic vol] 10.0 fL Normal 9.5-13.5 [facility] Comment on above: Performed By: #### C BC #### [facility] [address] [place] [address] Dr. Maynor Bojorquez PLT 252 103/ul Normal 150-450 [facility] Comment on above: Performed By: #### C BC #### [facility] [address] [place] [address] Dr. Maynor Bojorquez RBC 4.46 106/ul Normal 3.40-5.30 [facility] Comment on above: Performed By: #### C BC #### [facility] [address] [place] [address] Dr. Maynor Bojorquez WBC 7.6 103/ul Normal 4.0-11.0 [facility] Comment on above: Performed By: #### C BC #### [facility] [address] [place] [address] Dr. Maynor Bojorquez ER URINE PROFILEon 1 Bilirubin Ql (U) SMALL Abnormal NEGATIVE [facility] Comment on above: Performed By: #### E RUR #### [facility] [address] [place] [address] Dr. Maynor Bojorquez Clarity (U) CLEAR Normal CLEAR [facility] Comment on above: Performed By: #### E RUR #### [facility] [address] [place] [address] Dr. Maynor Bojorquez Color (U) YELLOW Normal YELLOW [facility] Comment on above: Performed By: #### E RUR #### [facility] [address] [place] [address] Dr. Maynor Bojorquez ERUAHD A micrscopic examination will be performed if indicated. Normal [facility] Comment on above: Performed By: #### E RUR #### [facility] [address] [place] [address] Dr. Maynor Bojorquez Glucose Ql (U) Negative Normal NEGATIVE [facility] Comment on above: Performed By: #### E RUR #### [facility] [address] [place] [address] Dr. Maynor Bojorquez Hemoglobin Ql (U) Negative Normal NEGATIVE [facility] Comment on above: Performed By: #### E RUR #### [facility] [address] [place] [address] Dr. Maynor Bojorquez Ketones Ql (U) >=80 Abnormal NEGATIVE [facility] Comment on above: Performed By: #### E RUR #### [facility] [address] [place] [address] Dr. Maynor Bojorquez LEUKOCYTES Negative Normal NEGATIVE [facility] Comment on above: Performed By: #### E RUR #### [facility] [address] [place] [address] Dr. Maynor Bojorquez Nitrite Ql (U) Negative Normal NEGATIVE [facility] Comment on above: Performed By: #### E RUR #### [facility] [address] [place] [address] Dr. Maynor Bojorquez pH (U) 6.0 [pH] Normal 5-9 [facility] Comment on above: Performed By: #### E RUR #### [facility] [address] [place] [address] Dr. Maynor Bojorquez SPEC GRAVITY >=1.030 Abnormal 1.005-<=1.02 5 [facility] Comment on above: Performed By: #### E RUR #### [facility] [address] [place] [address] Dr. Maynor Bojorquez UA PROTEIN TRACE Normal NEGATIVE/ TRACE [facility] Comment on above: Performed By: #### E RUR #### [facility] [address] [place] [address] Dr. Maynor Bojorquez UR MICRO IND NOT INDICATED Normal [facility] Comment on above: Performed By: #### E RUR #### [facility] [address] [address] [address] Maynor Bojorquez Urobilinogen Qn (U) 1.0 {Karri'U}/dL Normal 0.2 - 1. 0 [facility] Comment on above: Performed By: #### E RUR #### [facility] [address] [place] [address] Dr. Maynor Bojorquez PREG QUANT HCGon 11-01-2020 HCG QUANT [id number] mIU/mL Normal [facility] Comment on above: Performed By: #### P REGQNT #### [facility] [address] [place] [address] Dr. Maynor Bojorquez HCG RANGE SEE BELOW Normal [facility] Comment on above: Result Comment: 5-50 0-1 WEEK 40-300 1-2 WEEKS 100-1,000 2-3 WEEKS 500-6,000 3-4 WEEKS 5,000-200,000 1-2 MONTHS 10,000-100,000 2-3 MONTHS 3,000-50,000 2ND TRIMESTER 1,000-50,000 3RD TRIMESTER Performed By: #### P REGQNT #### [facility] [address] [place] [address] Dr. Maynor Bojorquez PROF CHEM 8 (BAS METB)on Anion gap [Moles/Vol] 13.6 mmol/L Normal [facility] Comment on above: Performed By: #### B MP #### [facility] [address] [place] [address] Dr. Maynor Bojorquez Calcium [Mass/Vol] 9.0 mg/dL Normal 8.4-10.2 [facility] Comment on above: Performed By: #### B MP #### [facility] [address] [place] [address] Dr. Maynor Bojorquez Chloride [Moles/Vol] 102 mmol/L Normal 98-107 [facility] Comment on above: Performed By: #### B MP #### [facility] [address] [place] [address] Dr. Maynor Bojorquez CO2 [Moles/Vol] 24.3 mmol/L Normal 22.0-30.0 [facility] Comment on above: Performed By: #### B MP #### [facility] [address] [place], [place] [address] Dr. Maynor Bojorquez Creatinine [Mass/Vol] 0.63 mg/dL Normal 0.52-1.04 [facility] Comment on above: Performed By: #### B MP #### [facility] [address] [place], [place] [address] Dr. Maynor Bojorquez Glucose [Mass/Vol] 73 mg/dL Critically low 74-106 [facility] Comment on above: Performed By: #### B MP #### [facility] [address] [place], [place] [address] Dr. Maynor Bojorquez Potassium [Moles/Vol] 3.9 mmol/L Normal 3.4-5.0 [facility] Comment on above: Performed By: #### B MP #### [facility] [address] [address] [address] Maynor Bojorquez Sodium [Moles/Vol] 136 mmol/L Critically low 137-145 [facility] Comment on above: Performed By: #### B MP #### [facility] [address] [address] [address] Maynor Bojorquez Urea nitrogen [Mass/Vol] 8.0 mg/dL Normal 6.4-19.3 [facility] Comment on above: Performed By: #### B MP #### [facility] [address] [address] [address] Maynor Bojorquez Urea nitrogen/Creatinine [Mass ratio] 12.7 mg/mg Normal [facility] Comment on above: Performed By: #### B MP #### [facility] [id number] Maynor Bojorquez US PREG TVon 11-01-2020 [...] CY HERNANDEZ Date: 2020-11-01 18:11 Normal [facility] WET PREPon 11-01-2020 CLUE CELLS NONE SEEN Normal NONE SEEN [facility] Comment on above: Performed By: #### W P #### [facility] [address] [address] [address] Maynor Bojorquez FUNGAL ELEMENTS NONE SEEN Normal NONE SEEN [facility] Comment on above: Performed By: #### W P #### [facility] [address] [address] [address] Maynor Bojorquez RBC -WET PREP RARE Abnormal NONE SEEN [facility] Comment on above: Performed By: #### W P #### [facility] [address] [address] [address] Maynor Bojorquez TRICHOMONAS NONE SEEN Normal NONE SEEN [facility] Comment on above: Performed By: #### W P #### [facility] [address] [address] [address] Maynor Bojorquez WBC- WET PREP MODERATE Abnormal NONE SEEN [facility] Comment on above: Performed By: #### W P #### [facility] [address] [place], [place] [address] Dr. Maynor Bojorquez WET PREP BACTERIA FEW Abnormal NONE SEEN [facility] Comment on above: Performed By: #### W P #### [facility] [address] [place], [place] [address] Dr. Maynor Bojorquez Vital Signs Date Time Vital Sign Value Performing Clinician Facility 08-05-2024 10:02-0400 Body mass index (BMI) [Ratio] 29.03 kg/m2 Holli Roque PA Work Phone: [facility] 08-05-2024 10:02-040 Body weight 76.72 kg Holli Roque PA Work Phone: [facility] 08-05-2024 10:02-0400 Diastolic blood pressure 50 mm[Hg] Holli Roque PA Work Phone: [facility] 08-05-2024 10:02-0400 Systolic blood pressure 102 mm[Hg] Holli Roque PA Work Phone: [facility] 07-22-2024 13:29-0400 Body mass index (BMI) [Ratio] 28.28 kg/m2 Jerry Steve DO Work Phone: [facility] 07-22-2024 13:29-0400 Body weight 74.73 kg Jerry Steve DO Work Phone: [facility] 07-22-2024 13:29-0400 Diastolic blood pressure 66 mm[Hg] Jerry Steve DO Work Phone: [facility] 07-22-2024 13:29-0400 Systolic blood pressure 122 mm[Hg] Jerry Steve DO Work Phone: [facility] 06-24-2024 13:50-0400 Body mass index (BMI) [Ratio] 27.7 kg/m2 Jerry Steve DO Work Phone: [facility] 06-24-2024 13:50-0400 Body weight 73.21 kg Jerry Steve DO Work Phone: [facility] 06-24-2024 13:50-0400 Diastolic blood pressure 58 mm[Hg] Jerry Steve DO Work Phone: [facility] 06-24-2024 13:50-0400 Systolic blood pressure 100 mm[Hg] Jerry Steve DO Work Phone: [facility] 06-19-2024 15:01-0400 Blood Pressure Location Eduardo WRAY [facility] 06-19-2024 15:01-0400 Body temperature 97.88 [degF] Eduardo WRAY [facility] 06-19-2024 15:01-0400 Diastolic blood pressure 65 mm[Hg] Eduardo WRAY [facility] 06-19-2024 15:01-0400 Heart rate 74 /min Eduardo WRAY [facility] 06-19-2024 15:01-0400 Respiratory rate 16 /min Eduardo WRAY [facility] 06-19-2024 15:01-0400 SaO2% (BldA) [Mass fraction] 100 % Eduardo WRAY [facility] 06-19-2024 15:01-0400 Systolic blood pressure 105 mm[Hg] Eduardo WRAY [facility] 06-09-2024 11:31-0400 Body mass index (BMI) [Ratio] 27.77 kg/m2 Jerry Steve DO Work Phone: [facility] 06-09-2024 11:31-0400 Body weight 73.39 kg Jerry Steve DO Work Phone: [facility] 06-09-2024 11:31-0400 Diastolic blood pressure 70 mm[Hg] Jerry Steve DO Work Phone: [facility] 06-09-2024 11:31-0400 Systolic blood pressure 114 mm[Hg] Jerry Steve DO Work Phone: [facility] 05-22-2024 11:28-0400 Body mass index (BMI) [Ratio] 26.95 kg/m2 Jerry Steve DO Work Phone: [facility] 05-22-2024 11:28-0400 Body weight 71.22 kg Jerry Steve DO Work Phone: [facility] 05-22-2024 11:28-0400 Diastolic blood pressure 72 mm[Hg] Jerry Steve DO Work Phone: [facility] 05-22-2024 11:28-0400 Systolic blood pressure 118 mm[Hg] Jerry Steve DO Work Phone: [facility] 05-09-2024 10:52-0400 Body mass index (BMI) [Ratio] 26.85 kg/m2 [facility] 05-09-2024 10:52-0400 Body weight 70.94 kg [facility] Nurse [facility] 05-09-2024 10:52-0400 Diastolic blood pressure 72 mm[Hg] [facility] Nurse [facility] 05-09-2024 10:52-0400 Systolic blood pressure 112 mm[Hg] [facility] Nurse [facility] 04-01-2024 14:35-0500 Body height 162.56 cm John Paul Lovell MD Work Phone: [facility] 04-01-2024 14:35-0500 Body mass index (BMI) [Ratio] 26.3 kg/m2 John Paul Lovell MD Work Phone: [facility] 04-01-2024 14:35-0500 Body temperature 97.9 [degF] John Paul Lovell MD Work Phone: [facility] 04-01-2024 14:35-0500 Body weight 69.51 kg John Paul Lovell MD Work Phone: [facility] 04-01-2024 14:35-0500 Diastolic blood pressure 61 mm[Hg] John Paul Lovell MD Work Phone: [facility] 04-01-2024 14:35-0500 Heart rate 75 /min John Paul Lovell MD Work Phone: [facility] 04-01-2024 14:35-0500 Respiratory rate 18 /min John Paul Lovell MD Work Phone: [facility] 04-01-2024 14:35-0500 SaO2% (BldA) [Mass fraction] 99 % John Paul Lovell MD Work Phone: [facility] 04-01-2024 14:35-0500 Systolic blood pressure 98 mm[Hg] John Paul Lovell MD Work Phone: [facility] 10-16-2023 14:13-0400 Body height 162.6 cm Mak Jordan [employer] Work Phone: [facility] 10-16-2023 14:13-0400 Body mass index (BMI) [Ratio] 28.67 kg/m2 Mak Jordan [employer] Work Phone: [facility] 10-16-2023 14:13-0400 Body temperature 98.2 [degF] Mak Jordan [employer] Work Phone: [facility] 10-16-2023 14:13-0400 Body weight 75.75 kg Mak Jordan [employer] Work Phone: [facility] 10-16-2023 14:13-0400 Diastolic blood pressure 78 mm[Hg] Mak Jordan [employer] Work Phone: [facility] 10-16-2023 14:13-0400 Heart rate 74 /min Mak Jordan [employer] Work Phone: [facility] 10-16-2023 14:13-0400 SaO2% (BldA) [Mass fraction] 98 % Mak Jordan [employer] Work Phone: [facility] 10-16-2023 14:13-0400 Systolic blood pressure 124 mm[Hg] Mak Jordan [employer] Work Phone: [facility] 09-12-2023 17:31-0400 [employer] Magalis Nataprawira [facility] Comment on above: Result Comment: waiting for ride to come 09-12-2023 16:32-0400 [employer] Magalis Nataprawira [facility] Comment on above: Result Comment: discharge instructions sheyla newman with verbal understanding. 09-12-2023 15:26-0400 [employer] Magalis Nataprawira [facility] 09-12-2023 08:52-0400 Diastolic blood pressure 51 mm[Hg] Magalis Nataprawira [facility] 09-12-2023 08:52-0400 Heart rate 68 /min Magalis Nataprawira [facility] 09-12-2023 08:52-0400 Mean blood pressure 67 mm[Hg] Magalis Nataprawira [facility] 09-12-2023 08:52-0400 Systolic blood pressure 100 mm[Hg] Magalis Nataprawira [facility] 09-12-2023 08:52-0400 Mean blood pressure 67 mm[Hg] Magalis Nataprawira [facility] 09-12-2023 08:52-0400 Respiratory rate 18 /min Magalis Nataprawira [facility] 09-11-2023 23:45-0400 Diastolic blood pressure 78 mm[Hg] Magalis Nataprawira [facility] 09-11-2023 23:45-0400 Heart rate 65 /min Magalis Nataprawira [facility] 09-11-2023 23:45-0400 Mean blood pressure 97 mm[Hg] Magalis Nataprawira [facility] 09-11-2023 23:45-0400 Systolic blood pressure 136 mm[Hg] Magalis Nataprawira [facility] 09-11-2023 23:45-0400 Blood Pressure Location Magalis Nataprawira [facility] 09-11-2023 23:45-0400 Mean blood pressure 97 mm[Hg] Magalis Nataprawira [facility] 09-11-2023 23:45-0400 Respiratory rate 22 /min Magalis Nataprawira [facility] 09-11-2023 21:03-0400 Heart rate 75 /min Magalis Nataprawira [facility] 09-11-2023 21:03-0400 SaO2% (BldA) [Mass fraction] 98 % Magalis Nataprawira [facility] 09-11-2023 21:02-0400 Diastolic blood pressure 73 mm[Hg] Magalis Nataprawira [facility] 09-11-2023 21:02-0400 Mean blood pressure 91 mm[Hg] Magalis Nataprawira [facility] 09-11-2023 21:02-0400 Systolic blood pressure 127 mm[Hg] Magalis Nataprawira [facility] 09-11-2023 21:00-0400 Body temperature 98.42 [degF] Magalis Nataprawira [facility] 09-11-2023 21:00-0400 Respiratory rate 18 /min Magalis Nataprawira [facility] 09-11-2023 16:00-0400 Mean blood pressure 80 mm[Hg] Magalis Nataprawira [facility] 09-11-2023 06:15-0400 Blood Pressure Location Magalis Narayananawira [facility] 09-11-2023 06:00-0400 Body temperature 98.24 [degF] Magalis Fariaaprawira [facility] 09-11-2023 04:45-0400 SaO2% (BldA) [Mass fraction] 97 % Magalis Natcristianra [facility] 09-11-2023 03:00-0400 Body temperature 97.88 [degF] Magalis Taylorra [facility] 09-10-2023 21:38-0400 bodymassindex 1.6 kg/m2 Magalis Taylorra [facility] Comment on above: Result Comment: ^~:!ZScore [facility] 09-10-2023 21:38-0400 Height/Length Percentile 60.85 1 Magalis Taylorra [facility] Comment on above: Result Comment: ^~:!Percentile Source -[facility] 09-10-2023 21:38-0400 Height/Length Z-Score 0.28 1 Magalis Taylorra [facility] Comment on above: Result Comment: ^~:![facility]Score [facility] 09-10-2023 21:38-0400 Weight Percentile 95.70 % Magalis Taylorra [facility] Comment on above: Result Comment: ^~:!Percentile Source -[facility] 09-10-2023 21:38-0400 Weight Z-Score 1.72 1 Magalis Natcristianra [facility] Comment on above: Result Comment: ^~:![facility] 08-29-2023 16:25-0400 Hourly Rounding Ras Miller [facility] Comment on above: Result Comment: discharge instructions sheyla chavezblaine, questions answered and papers signed 08-29-2023 15:06-0400 bodymassindex 1.44 kg/m2 Ras Miller [facility] Comment on above: Result Comment: ^~:![facility] 08-29-2023 15:06-0400 Height/Length Percentile 60.30 1 Ras Miller [facility] Comment on above: Result Comment: ^~:!Percentile [facility] 08-29-2023 15:06-0400 Height/Length Z-Score 0.26 1 Ras Miller [facility] Comment on above: Result Comment: ^~:![facility]Score [facility] 08-29-2023 15:06-0400 Weight Percentile 93.68 % Ras Miller [facility] Comment on above: Result Comment: ^~:!Percentile [facility] 08-29-2023 15:06-0400 Weight Z-Score 1.53 1 Ras Miller [facility] Comment on above: [facility]-0400 Diastolic blood pressure 74 mm[Hg] Ras Miller [facility] 08-29-2023 15:00-0400 Heart rate 94 /min Ras Miller [facility] 08-29-2023 15:00-0400 Mean blood pressure 92 mm[Hg] Ras Miller [facility] 08-29-2023 15:00-0400 Respiratory rate 18 /min Ras Miller [facility] 08-29-2023 15:00-0400 Systolic blood pressure 127 mm[Hg] Ras Miller [facility] 07-19-2023 07:30-0400 Hourly Rounding Magalis Nataprawira [facility] Comment on above: Result Comment: discharge instructions g paty to pt. pt requests an abdominal binder. 07-19-2023 07:15-0400 Body temperature 98.06 [degF] Magalis Nataprawira [facility] 07-19-2023 07:15-0400 Diastolic blood pressure 46 mm[Hg] Magalis Nataprawira [facility] 07-19-2023 07:15-0400 Heart rate 77 /min Magalis Nataprawira [facility] 07-19-2023 07:15-0400 Hourly Rounding Magalis Nataprawira [facility] 07-19-2023 07:15-0400 Mean blood pressure 68 mm[Hg] Magalis Nataprawira [facility] 07-19-2023 07:15-0400 Systolic blood pressure 112 mm[Hg] Magalis Nataprawira [facility] 07-19-2023 06:44-0400 bodymassindex 1.44 kg/m2 Magalis Nataprawira [facility] Comment on above: Result Comment: ^~:!ZScore Source -[facility] 07-19-2023 06:44-0400 Height/Length Percentile 60.93 1 Magalis Nataprawira [facility] Comment on above: Result Comment: ^~:!Percentile Source [facility] 07-19-2023 06:44-0400 Height/Length Z-Score 0.28 1 Magalis Nataprawira [facility] Comment on above: Result Comment: ^~:![facility]Score [facility] 07-19-2023 06:44-0400 Weight Percentile 93.73 % Magalis Nataprawira [facility] Comment on above: Result Comment: ^~:!Percentile Source -[facility] 07-19-2023 06:44-0400 Weight Z-Score 1.53 1 Magalis Snow [facility] Comment on above: Result Comment: ^~:!ZScore Source -[facility] 03-20-2023 08:14-0500 Body mass index (BMI) [Ratio] 27.09 kg/m2 Kourtneyanalisa Lindsayman [employer] Work Phone: [facility] 03-20-2023 08:14-0500 Body weight 71.58 kg Kourtney Pierce [employer]KEEPING [employer]AD Work Phone: [facility] 03-20-2023 08:14-0500 Diastolic blood pressure 76 mm[Hg] Kourtney Pierce [employer]SEKEEPING LEAD Work Phone: [facility] 03-20-2023 08:14-0500 Systolic blood pressure 124 mm[Hg] Kourtney Lindsayman HOUSEKEEPING LEAD Work Phone: [facility] 03-15-2023 06:43-0500 Body height 162.6 cm Kourtney Pierce [employer]SEKEEPING LEAD Work Phone: [facility] 02-13-2023 17:00-0500 Heart rate 76 /min Steven Alatorre [facility] 02-13-2023 17:00-0500 Mean blood pressure 82 mm[Hg] Steven Alatorre [facility] 02-13-2023 17:00-0500 SaO2% (BldA) [Mass fraction] 98 % Steven Alatorre [facility] 02-13-2023 16:07-0500 Diastolic blood pressure 66 mm[Hg] Steven Alatorre [facility] 02-13-2023 16:07-0500 Heart rate 71 /min Steven Alatorre [facility] 01-09-2024 16:07-0500 Mean blood pressure 81 mm[Hg] Steven Quiroze [facility] 02-13-2023 16:07-0500 Respiratory rate 16 /min Steven Quiroze [facility] 02-13-2023 16:07-0500 SaO2% (BldA) [Mass fraction] 100 % Steven Celi [facility] 02-13-2023 16:07-0500 Systolic blood pressure 111 mm[Hg] Steven Celi [facility] 02-13-2023 15:21-0500 Diastolic blood pressure 67 mm[Hg] Steven Celi [facility] 02-13-2023 15:21-0500 Heart rate 65 /min Steven Quiroze [facility] 02-13-2023 15:21-0500 Mean blood pressure 83 mm[Hg] Steven Celi [facility] 02-13-2023 15:21-0500 SaO2% (BldA) [Mass fraction] 100 % Steven Celi [facility] 02-13-2023 15:21-0500 Systolic blood pressure 114 mm[Hg] Steven Quiroze [facility] 02-13-2023 14:18-0500 Body temperature 98.06 [degF] Steven Celi [facility] 02-13-2023 14:18-0500 bodymassindex 0.93 kg/m2 Steven Celi [facility] Comment on above: [facility]13-[facility] 14:18-0500 Heart rate 70 /min Steven Quiroze [facility] 02-13-2023 14:18-0500 Height/Length Percentile 60.56 1 Steven Quiroze [facility] Comment on above: Result Comment: ^~:!Percentile Source [facility] 02-13-2023 14:18-0500 Height/Length Z-Score 0.27 1 Steven Quiroze [facility] Comment on above: Result Comment: ^~:!ZScore [facility] 02-13-2023 14:18-0500 Weight Percentile 84.08 % Steven Quiroze [facility] Comment on above: Result Comment: ^~:!Percentile Source [facility] 02-13-2023 14:18-0500 Weight Z-Score 1.00 1 Steven Quiroze [facility] Comment on above: Result Comment: ^~:!ZScore [facility] 01-26-2023 21:13-0500 Diastolic blood pressure 57 mm[Hg] Steven Quiroze [facility] 01-26-2023 21:13-0500 Heart rate 74 /min Steven Quiroze [facility] 01-26-2023 21:13-0500 Mean blood pressure 75 mm[Hg] Steven Quiroze [facility] 01-26-2023 21:13-0500 Respiratory rate 18 /min Steven Quiroze [facility] 01-26-2023 21:13-0500 SaO2% (BldA) [Mass fraction] 100 % Steven Celi [facility] 01-26-2023 21:13-0500 Systolic blood pressure 110 mm[Hg] Steven Celi [facility] 01-26-2023 20:37-0500 Diastolic blood pressure 83 mm[Hg] Steven Celi [facility] 01-26-2023 20:37-0500 Heart rate 83 /min Steven Quiroze [facility] 01-26-2023 20:37-0500 Mean blood pressure 104 mm[Hg] Steven Quiroze [facility] 01-26-2023 20:37-0500 Respiratory rate 17 /min Steven Quiroze [facility] 01-26-2023 20:37-0500 SaO2% (BldA) [Mass fraction] 100 % Steven Quiroze [facility] 01-26-2023 20:37-0500 Systolic blood pressure 146 mm[Hg] Steven Quiroze [facility] 01-26-2023 19:10-0500 Body temperature 98.42 [degF] Steven Quiroze [facility] 01-26-2023 19:10-0500 bodymassindex 1.05 kg/m2 Steven Quiroze [facility] Comment on above: Result Comment: ^~:!ZScore [facility] 01-26-2023 19:10-0500 Diastolic blood pressure 61 mm[Hg] Steven Quiroze [facility] 01-26-2023 19:10-0500 Heart rate 71 /min Steven Quiroze [facility] 01-26-2023 19:10-0500 Height/Length Percentile 71.85 1 Steven Quiroze [facility] Comment on above: Result Comment: ^~:!Percentile Source -[facility] 01-26-2023 19:10-0500 Height/Length Z-Score 0.58 1 Steven Quiroze [facility] Comment on above: Result Comment: ^~:!ZScore [facility] 01-26-2023 19:10-0500 Respiratory rate 18 /min Steven Quiroze [facility] 01-26-2023 19:10-0500 SaO2% (BldA) [Mass fraction] 99 % Steven Celi [facility] 01-26-2023 19:10-0500 Systolic blood pressure 120 mm[Hg] Steven Celi [facility] 01-26-2023 19:10-0500 weight 1.21 1 Steven Celi [facility] Comment on above: Result Comment: ^~:!ZScore Source -[facility] 01-26-2023 19:10-0500 Weight Percentile 88.76 % Steven Quiroze [facility] Comment on above: Result Comment: ^~:!Percentile Source -[facility] 01-23-2023 17:43-0500 Diastolic blood pressure 80 mm[Hg] Steven Quiroze [facility] 01-23-2023 17:43-0500 Heart rate 70 /min Steven Celi [facility] 01-23-2023 17:43-0500 Mean blood pressure 92 mm[Hg] Steven Quiroze [facility] 01-23-2023 17:43-0500 Respiratory rate 16 /min Steven Quiroze [facility] 01-23-2023 17:43-0500 SaO2% (BldA) [Mass fraction] 99 % Steven Celi [facility] 01-23-2023 17:43-0500 Systolic blood pressure 116 mm[Hg] Steven Celi [facility] 01-23-2023 17:00-0500 Diastolic blood pressure 50 mm[Hg] Steven Celi [facility] 01-23-2023 17:00-0500 Heart rate 62 /min Steven Quiroze [facility] 01-23-2023 17:00-0500 Mean blood pressure 65 mm[Hg] Steven Quiroze [facility] 01-23-2023 17:00-0500 Respiratory rate 18 /min Steven Quiroze [facility] 01-23-2023 17:00-0500 SaO2% (BldA) [Mass fraction] 100 % Steven Quiroze [facility] 01-23-2023 17:00-0500 Systolic blood pressure 95 mm[Hg] Steven Quiroze [facility] 01-23-2023 16:30-0500 Diastolic blood pressure 51 mm[Hg] Steven Quiroze [facility] 01-23-2023 16:30-0500 Heart rate 53 /min Steven Quiroze [facility] 01-23-2023 16:30-0500 Mean blood pressure 66 mm[Hg] Steven Quiroze [facility] 01-23-2023 16:30-0500 Respiratory rate 19 /min Steven Quiroze [facility] 01-23-2023 16:30-0500 SaO2% (BldA) [Mass fraction] 99 % Steven Celi [facility] 01-23-2023 16:30-0500 Systolic blood pressure 97 mm[Hg] Steven Celi [facility] 01-23-2023 11:45-0500 Body temperature 97.7 [degF] Steven Celi [facility] 01-23-2023 11:45-0500 bodymassindex 1.35 kg/m2 Steven Celi [facility] Comment on above: Result Comment: ^~:!ZScore [facility] 01-23-2023 11:45-0500 Heart rate 65 /min Steven Alatorre [facility] 01-23-2023 11:45-0500 Height/Length Percentile 60.60 1 Steven Alatorre [facility] Comment on above: Result Comment: ^~:!Percentile Source [place] 01-23-2023 11:45-0500 Height/Length Z-Score 0.27 1 Steven Alatorre [facility] Comment on above: Result Comment: ^~:!ZScore [facility] 01-23-2023 11:45-0500 weight 1.42 1 Steven Alatorre [facility] Comment on above: Result Comment: ^~:!ZScore [facility] 01-23-2023 11:45-0500 Weight Percentile 92.25 % Steven Alatorre [facility] Comment on above: Result Comment: ^~:!Percentile Source [place] 12-07-2022 23:02-0400 Body temperature 98.24 [degF] Kaylinn Dokken [facility] 12-07-2022 23:02-0400 bodymassindex 1.61 kg/m2 Kaylinn Dokken [facility] Comment on above: Result Comment: ^~:!ZScore [facility] 12-07-2022 23:02-0400 Diastolic blood pressure 46 mm[Hg] Kaylinn Dokken [facility] 12-07-2022 23:02-0400 Heart rate 78 /min Kaylinn Dokken [facility] 12-07-2022 23:02-0400 Height/Length Percentile 45.75 1 Kaylinn Dokken [facility] Comment on above: Result Comment: ^~:![facility]-07-[facility] 23:02-0400 Height/Length Z-Score -0.11 1 Damaris Jean Baptiste [facility] Comment on above: Result Comment: ^~:!Trace [facility] 12-07-2022 23:02-0400 Respiratory rate 18 /min Damaris Jean Baptiste [facility] 12-07-2022 23:02-0400 SaO2% (BldA) [Mass fraction] 97 % Damaris Jean Baptiste [facility] 12-07-2022 23:02-0400 Systolic blood pressure 113 mm[Hg] Damaris Jean Baptiste [facility] 12-07-2022 23:02-0400 weight 1.61 1 Damaris Jean Baptiste [facility] Comment on above: Result Comment: ^~:!Trace [facility] 12-07-2022 23:02-0400 Weight Percentile 94.60 % Damaris Jean Baptiste [facility] Comment on above: Result Comment: ^~:!Percentile Christopher [facility] 10-30-2022 10:51-0400 Body temperature 98.24 [degF] Steven Alatorre [facility] 10-30-2022 10:51-0400 bodymassindex 1.51 Steven Alatorre [facility] Comment on above: Result Comment: ^~:!Trace [facility] 10-30-2022 10:51-0400 Diastolic blood pressure 72 mm[Hg] Steven Alatorre [facility] 09-25-2023 10:51-0400 Heart rate 80 /min Steven Alatorre [facility] 10-30-2022 10:51-0400 Height/Length Percentile 61.36 Steven Alatorre [facility] Comment on above: Result Comment: ^~:!Percentile Source -[facility] 10-30-2022 10:51-0400 Height/Length Z-Score 0.29 Steven Alatorre [facility] Comment on above: [facility]00 Respiratory rate 16 /min Steven Alatorre [facility] 10-30-2022 10:51-0400 SaO2% (BldA) [Mass fraction] 97 % Steven Alatorre [facility] 10-30-2022 10:51-0400 Systolic blood pressure 110 mm[Hg] Steven Alatorre [facility] 10-30-2022 10:51-0400 weight 1.60 Steven Alatorre [facility] Comment on above: [facility] 10:51-0400 Weight Percentile 94.47 % Steven Alatorre [facility] Comment on above: Result Comment: ^~:!Percentile Source -[facility] 08-10-2022 12:40-0400 Hourly Rounding Jerry STEVE [facility] Comment on above: Result Comment: discharged out to [facility] without incident accompanied per nurse, the baby was carried in the carseat 08-10-2022 12:30-0400 Hourly Rounding Jerry STEVE [facility] Comment on above: Result Comment: discharge instructions g paty the pt verbalized understanding 08-10-2022 11:42-0400 Hourly Rounding Jerry STEVE [facility] Comment on above: Result Comment: sitting in bed. denies n eeds or pain 08-10-2022 07:21-0400 Heart rate 73 /min Jerry STEVE [facility] 08-10-2022 07:21-0400 SaO2% (BldA) [Mass fraction] 100 % Jerry STEVE [facility] 08-10-2022 07:19-0400 Body temperature 98.06 [degF] Jerry STEVE [facility] 08-10-2022 07:19-0400 Diastolic blood pressure 77 mm[Hg] Jerry STEVE [facility] 08-10-2022 07:19-0400 Mean blood pressure 86 mm[Hg] Jerry STEVE [facility] 08-10-2022 07:19-0400 Systolic blood pressure 104 mm[Hg] Jerry STEVE [facility] 08-10-2022 07:18-0400 Respiratory rate 18 /min Jerry STEVE [facility] 08-09-2022 20:27-0400 Blood Pressure Location Jerry STEVE [facility] 08-09-2022 20:27-0400 Body temperature 97.34 [degF] Jerry STEVE [facility] 08-09-2022 20:27-0400 Diastolic blood pressure 68 mm[Hg] Jerry STEVE [facility] 08-09-2022 20:27-0400 Heart rate 81 /min Jerry STEVE [facility] 08-09-2022 20:27-0400 Mean blood pressure 87 mm[Hg] Jerry STEVE [facility] 08-09-2022 20:27-0400 Respiratory rate 16 /min Jerry STEVE [facility] 08-09-2022 20:27-0400 Systolic blood pressure 126 mm[Hg] Jerry STEVE [facility] 08-09-2022 15:24-0400 Heart rate 77 /min Jerry STEVE [facility] 08-09-2022 15:24-0400 SaO2% (BldA) [Mass fraction] 98 % Jerry STEVE [facility] 08-09-2022 15:24-0400 Body temperature 98.24 [degF] Jerry STEVE [facility] 08-09-2022 15:24-0400 Diastolic blood pressure 64 mm[Hg] Jerry STEVE [facility] 08-09-2022 15:24-0400 Mean blood pressure 88 mm[Hg] Jerry STEVE [facility] 08-09-2022 15:24-0400 Systolic blood pressure 135 mm[Hg] Jerry STEVE [facility] 08-09-2022 15:15-0400 Blood Pressure Location Jerry STEVE [facility] 08-09-2022 15:15-0400 Respiratory rate 18 /min Jerry STEVE [facility] 08-09-2022 07:28-0400 SaO2% (BldA) [Mass fraction] 100 % Jerry STEVE [facility] 08-09-2022 07:27-0400 Mean blood pressure 86 mm[Hg] Jerry STEVE [facility] 08-09-2022 07:15-0400 Blood Pressure Location Jerry STEVE [facility] 08-08-2022 19:42-0400 Mean blood pressure 86 mm[Hg] Jerry STEVE [facility] 08-08-2022 08:15-0400 Mean blood pressure 85 mm[Hg] Jerry STEVE [facility] 08-07-2022 06:36-0400 bodymassindex 1.68 Jerry STEVE [facility] Comment on above: [facility] 06:36-0400 Height/Length Percentile 61.53 Jerry STEVE [facility] Comment on above: Result Comment: ^~:!Percentile Source [facility] 08-07-2022 06:36-0400 Height/Length Z-Score 0.29 Jerry STEVE [facility] Comment on above: Result Comment: ^~:!ZScore [facility] 08-07-2022 06:36-0400 weight 1.76 Jerry STEVE [facility] Comment on above: Result Comment: ^~:!ZScore [facility] 08-07-2022 06:36-0400 Weight Percentile 96.10 % Jerry STEVE [facility] Comment on above: Result Comment: ^~:!Percentile Source [facility] 08-04-2022 13:28-0400 Hourly Rounding Jerry STEVE [facility] 08-04-2022 13:00-0400 Hourly Rounding Jerry STEVE [facility] Comment on above: Result Comment: verbal and written disch arge instructions given to pt and family, encouraged to return for any prob or concerns 08-04-2022 12:00-0400 Hourly Rounding Jerry STEVE [facility] 08-04-2022 11:15-0400 Blood Pressure Location Jerry STEVE [facility] 08-04-2022 11:15-0400 Body temperature 98.06 [degF] Jerry STVEE [facility] 08-04-2022 11:15-0400 bodymassindex 1.67 Jerry STEVE [facility] Comment on above: Result Comment: ^~:![facility] 08-04-2022 11:15-0400 Diastolic blood pressure 58 mm[Hg] Jerry STEVE [facility] 08-04-2022 11:15-0400 Heart rate 115 /min Jerry STEVE [facility] 08-04-2022 11:15-0400 Height/Length Percentile 60.94 Jerry STEVE [facility] Comment on above: Result Comment: ^~:![facility] 08-04-2022 11:15-0400 Height/Length Z-Score 0.28 Jerry STEVE [facility] Comment on above: [facility] 11:15-0400 Mean blood pressure 80 mm[Hg] Jerry STEVE [facility] 08-04-2022 11:15-0400 Respiratory rate 16 /min Jerry STEVE [facility] 08-04-2022 11:15-0400 Systolic blood pressure 124 mm[Hg] Jerry STEVE [facility] 08-04-2022 11:15-0400 weight 1.75 Jerry STEVE [facility] Comment on above: Result Comment: ^~:!ZScore [facility] 08-04-2022 11:15-0400 Weight Percentile 95.98 % Jerry STEVE [facility] Comment on above: Result Comment: ^~:!Percentile Source [facility] 01-18-2022 14:00-0500 Body temperature 98.6 [degF] Ender Garfield [facility] 01-18-2022 14:00-0500 Diastolic blood pressure 60 mm[Hg] Ender Garfield [facility] 01-18-2022 14:00-0500 Heart rate 73 /min Ender Garfield [facility] 01-18-2022 14:00-0500 Mean blood pressure 78 mm[Hg] Ender Garfield [facility] 01-18-2022 14:00-0500 Respiratory rate 17 /min Ender Garfield [facility] 01-18-2022 14:00-0500 SaO2% (BldA) [Mass fraction] 100 % Ender Garfield [facility] 01-18-2022 14:00-0500 Systolic blood pressure 115 mm[Hg] Ender Garfield [facility] 01-18-2022 04:00-0500 Body temperature 98.24 [degF] Ender Garfield [facility] 01-18-2022 04:00-0500 Diastolic blood pressure 65 mm[Hg] Ender Garfield [facility] 01-18-2022 04:00-0500 Heart rate 68 /min Ender Garfield [facility] 01-18-2022 04:00-0500 Mean blood pressure 82 mm[Hg] Ender Merrill [facility] 01-18-2022 04:00-0500 Respiratory rate 18 /min Ender Merrill [facility] 01-18-2022 04:00-0500 SaO2% (BldA) [Mass fraction] 98 % Ender Merrill [facility] 01-18-2022 03:00-0500 Diastolic blood pressure 77 mm[Hg] Ender Merrill [facility] 01-18-2022 03:00-0500 Heart rate 63 /min Ender Merrill [facility] 01-18-2022 03:00-0500 Mean blood pressure 91 mm[Hg] Ender Merrill [facility] 01-18-2022 03:00-0500 SaO2% (BldA) [Mass fraction] 97 % Ender Merrill [facility] 01-18-2022 03:00-0500 Systolic blood pressure 120 mm[Hg] Ender Merrill [facility] 01-18-2022 01:11-0500 bodymassindex 1.29 Ender Merrill [facility] Comment on above: Result Comment: ^~:!ZScore Source -[facility] 01-18-2022 01:11-0500 Heart rate 76 /min Ender Merrill [facility] 01-18-2022 01:11-0500 Height/Length Percentile 61.95 Ender Merrill [facility] Comment on above: Result Comment: ^~:!Percentile Source -[facility] 01-18-2022 01:11-0500 Height/Length Z-Score 0.30 Ender Merrill [facility] Comment on above: [facility] 01:11-0500 weight 1.36 Ender Merrill [facility] Comment on above: Result Comment: [facility] 01-18-2022 01:11-0500 Weight Percentile 91.35 % Ender Merrill [facility] Comment on above: Result Comment: ^~:!Percentile [facility] 01-05-2022 11:30-0500 Diastolic blood pressure 72 mm[Hg] Ender Merrill [facility] 01-05-2022 11:30-0500 Heart rate 67 /min Ender Merrill [facility] 01-05-2022 11:30-0500 Mean blood pressure 82 mm[Hg] Ender Merrill [facility] 01-05-2022 11:30-0500 Respiratory rate 18 /min Ender Merrill [facility] 01-05-2022 11:30-0500 SaO2% (BldA) [Mass fraction] 100 % Ender Merrill [facility] 01-05-2022 11:30-0500 Systolic blood pressure 103 mm[Hg] Ender Merrill [facility] 01-05-2022 11:00-0500 Diastolic blood pressure 44 mm[Hg] Ender Merrill [facility] 01-05-2022 11:00-0500 Heart rate 65 /min Ender Merrill [facility] 01-05-2022 11:00-0500 Systolic blood pressure 94 mm[Hg] Ender Merrill [facility] 01-05-2022 10:46-0500 SaO2% (BldA) [Mass fraction] 99 % Ender Garfield [facility] 01-05-2022 10:30-0500 Diastolic blood pressure 53 mm[Hg] Ender Garfield [facility] 01-05-2022 10:30-0500 Heart rate 66 /min Ender Garfield [facility] 01-05-2022 10:30-0500 Respiratory rate 18 /min Ender Garfield [facility] 01-05-2022 10:30-0500 Systolic blood pressure 100 mm[Hg] Ender Garfield [facility] 01-05-2022 10:17-0500 Hourly Rounding Ender Garfield [facility] 01-05-2022 10:17-0500 Promise to Return Ender Garfield [facility] 01-05-2022 10:16-0500 Blood Pressure Location Ender Garfield [facility] 01-05-2022 10:16-0500 Mean blood pressure 68 mm[Hg] Ender Garfield [facility] 01-05-2022 09:19-0500 Blood Pressure Location Ender Garfield [facility] 01-05-2022 09:19-0500 Mean blood pressure 71 mm[Hg] Ender Garfield [facility] 01-05-2022 09:10-0500 Hourly Rounding Ender Garfield [facility] 01-05-2022 09:10-0500 Promise to Return Ender Garfield [facility] 01-05-2022 08:40-0500 Hourly Rounding Ender Garfield [facility] 01-05-2022 08:40-0500 Promise to Return Ender Merrill [facility] 01-05-2022 08:13-0500 Blood Pressure Location Ender Merrill [facility] 01-05-2022 07:52-0500 Body temperature 97.88 [degF] Ender Merrill [facility] 01-05-2022 07:52-0500 bodymassindex 1.28 Ender Merrill [facility] Comment on above: Result Comment: ^~:![facility] 01-05-2022 07:52-0500 Heart rate 73 /min Ender Merrill [facility] 01-05-2022 07:52-0500 Height/Length Percentile 61.44 % Ender Merrill [facility] Comment on above: Result Comment: ^~:!Percentile Source -[facility] 01-05-2022 07:52-0500 Height/Length Z-Score 0.29 Ender Merrill [facility] Comment on above: Result Comment: ^~:![facility] 01-05-2022 07:52-0500 weight 1.35 Ender Merrill [facility] Comment on above: Result Comment: ^~:![facility] 01-05-2022 07:52-0500 Weight Percentile 91.20 % Ender Merrill [facility] Comment on above: Result Comment: ^~:!Percentile Source -[facility] 01-02-2022 14:15-0500 Diastolic blood pressure 50 mm[Hg] Steven Celi [facility] 01-02-2022 14:15-0500 Heart rate 65 /min Steevn Quiroze [facility] 01-02-2022 14:15-0500 Mean blood pressure 66 mm[Hg] Steven Quiroze [facility] 01-02-2022 14:15-0500 Respiratory rate 16 /min Steven Quiroze [facility] 01-02-2022 14:15-0500 SaO2% (BldA) [Mass fraction] 100 % Steven Celi [facility] 01-02-2022 14:15-0500 Systolic blood pressure 99 mm[Hg] Steven Quiroze [facility] 01-02-2022 12:39-0500 Body temperature 97.88 [degF] Steven Quiroze [facility] 01-02-2022 12:39-0500 Diastolic blood pressure 75 mm[Hg] Steven Quiroze [facility] 01-02-2022 12:39-0500 Heart rate 61 /min Steven Quiroze [facility] 01-02-2022 12:39-0500 Respiratory rate 16 /min Steven Quiroze [facility] 01-02-2022 12:39-0500 SaO2% (BldA) [Mass fraction] 99 % Steven Quiroze [facility] 01-02-2022 12:39-0500 Systolic blood pressure 147 mm[Hg] Steven Quiroze [facility] 01-02-2022 12:39-0500 weight 1.41 Steven Quiroze [facility] Comment on above: Result Comment: ^~:!ZScore [facility] [facility] 01-02-2022 12:39-0500 Weight Percentile 92.03 % Steven Quiroze [facility] Comment on above: Result Comment: ^~:!Percentile Source -C DC 10-16-2021 21:35-0400 Nursing Progress Note Reason Other: discharge instructions given. pt verbalized understanding. [facility] 10-16-2021 20:12-0400 Body temperature 98.42 [degF] [facility] 10-16-2021 20:12-0400 Diastolic blood pressure 77 mm[Hg] [facility] 10-16-2021 20:12-0400 Heart rate 69 /min [facility] 10-16-2021 20:12-0400 Respiratory rate 18 /min [facility] 10-16-2021 20:12-0400 SaO2% (BldA) [Mass fraction] 98 % [facility] 10-16-2021 20:12-0400 Systolic blood pressure 113 mm[Hg] [facility] 09-14-2021 08:08-0400 Body temperature 98.42 [degF] Ender Merrill [facility] 09-14-2021 08:08-0400 Diastolic blood pressure 82 mm[Hg] Ender Merrill [facility] 09-14-2021 08:08-0400 Heart rate 71 /min Ender Merrill [facility] 09-14-2021 08:08-0400 Respiratory rate 18 /min Ender Merrill [facility] 09-14-2021 08:08-0400 SaO2% (BldA) [Mass fraction] 100 % Ender Merrill [facility] 09-14-2021 08:08-0400 Systolic blood pressure 127 mm[Hg] Ender Merrill [facility] 06-09-2021 18:18-0400 Hourly Rounding Ras Paul [facility] Comment on above: Result Comment: Pt up in room getting re warren for discharge; no other needs noted. 06-09-2021 17:04-0400 Hourly Rounding Ras Miller [facility] Comment on above: Result Comment: Pt visiting with friend; no other needs noted. 06-09-2021 16:20-0400 Blood Pressure Location Ras Miller [facility] 06-09-2021 16:20-0400 Body temperature 97.52 [degF] Ras Miller [facility] 06-09-2021 16:20-0400 Diastolic blood pressure 68 mm[Hg] Ras Miller [facility] 06-09-2021 16:20-0400 Heart rate 82 /min Ras Miller [facility] 06-09-2021 16:20-0400 Hourly Rounding Ras Miller [facility] Comment on above: Result Comment: Mom holding infant; no n eeds noted. 06-09-2021 16:20-0400 Mean blood pressure 89 mm[Hg] Ras Miller [facility] 06-09-2021 16:20-0400 Respiratory rate 18 /min Ras Miller [facility] 06-09-2021 16:20-0400 Systolic blood pressure 132 mm[Hg] Ras Miller [facility] 06-09-2021 07:15-0400 Blood Pressure Location Ras Miller [facility] 06-09-2021 07:15-0400 Body temperature 98.78 [degF] Ras Miller [facility] 06-09-2021 07:15-0400 Diastolic blood pressure 65 mm[Hg] Ras Miller [facility] 06-09-2021 07:15-0400 Heart rate 84 /min Ras Miller [facility] 06-09-2021 07:15-0400 Mean blood pressure 84 mm[Hg] Ras Miller [facility] 06-09-2021 07:15-0400 Respiratory rate 20 /min Ras Miller [facility] 06-09-2021 07:15-0400 Systolic blood pressure 123 mm[Hg] Ras Miller [facility] 06-08-2021 20:35-0400 Body temperature 97.88 [degF] Ras Miller [facility] 06-08-2021 20:35-0400 Diastolic blood pressure 75 mm[Hg] Ras Miller [facility] 06-08-2021 20:35-0400 Heart rate 77 /min Ras Miller [facility] 06-08-2021 20:35-0400 Mean blood pressure 90 mm[Hg] Ras Miller [facility] 06-08-2021 20:35-0400 SaO2% (BldA) [Mass fraction] 97 % Ras Miller [facility] 06-08-2021 20:35-0400 Systolic blood pressure 121 mm[Hg] Ras Miller [facility] 06-08-2021 20:30-0400 Blood Pressure Location Ras Miller [facility] 06-08-2021 20:30-0400 Respiratory rate 18 /min Ras Miller [facility] 06-08-2021 18:30-0400 Promise to Return Ras Miller [facility] 06-08-2021 17:10-0400 Promise to Return Ras Miller [facility] 06-08-2021 16:45-0400 Promise to Return Ras Miller [facility] 06-08-2021 08:00-0400 Mean blood pressure 84 mm[Hg] Ras Miller [facility] 06-07-2021 23:30-0400 SaO2% (BldA) [Mass fraction] 99 % Ras Miller [facility] 06-07-2021 07:22-0400 Heart rate 72 /min Ras Miller [facility] Encounters Encounter Date Encounter Type Care Provider Facility Start: 08-07-2024 End: 08-07-2024 Clinisync Result Encounter Holli TOUSSAINT Work Phone: [facility] Unsolicited Start: 08-07-2024 End: 08-07-2024 Clinisync Result Encounter Holli TOUSSAINT Work Phone: [facility] Unsolicited Start: 08-05-2024 End: 08-05-2024 Bamboo flowsheet Holli TOUSSAINT Work Phone: [facility] Start: 08-05-2024 End: 08-05-2024 Bamboo flowsheet Holli TOUSSAINT Work Phone: [facility] Start: 08-05-2024 End: 08-05-2024 Office outpatient visit 15 minutes Holli TOUSSAINT Work Phone: [facility] Comment on above: Right otitis media, unspecified otitis media type (Primary Dx); Third trimester ([facility]); 30 weeks gestation of ([facility]); SGA (small for gestational age) ([facility]) Start: 08-05-2024 End: 08-05-2024 ambulatory HOLLI ROQUE Not Available Start: 07-22-2024 End: 07-22-2024 Bamboo flowsheet Jerry Steve DO Work Phone: [facility] Start: 07-22-2024 End: 07-22-2024 Bamboo flowsheet Jerry Steve DO Work Phone: [facility] Start: 07-22-2024 End: 07-22-2024 Office outpatient visit 15 minutes Jerry Steve DO Work Phone: [facility] Comment on above: Third trimester preg chip ([facility]); 28 weeks gestation of ([facility]); SGA (small for gestational age) ([facility]) Start: 07-22-2024 End: 07-22-2024 Orders Only Nely Sheldon RN [facility] Comment on above: Encounter for follow -up ultrasound of anatomy (Primary Dx) Start: 07-21-2024 End: 07-21-2024 Orders Only Chelsi Box RN [facility] at [facility] Comment on above: Abnormal ultra sound (Primary Dx) Start: 07-04-2024 End: 07-04-2024 Clinisync Result Encounter Jerry Steve DO Work Phone: [facility] External Department Unsolicited Start: 07-04-2024 End: 07-04-2024 Clinisync Result Encounter Jerry Steve DO Work Phone: [facility] External Department Unsolicited Start: 07-02-2024 End: 07-02-2024 ambulatory Eduardo WRAY [facility] Start: 06-24-2024 End: 06-24-2024 Bamboo flowsheet Jerry [...] Start: 06-19-2024 End: 06-19-2024 ambulatory Eduardo WRAY Facility: [facility] Start: 06-19-2024 End: 06-19-2024 Off-Site Eduardo WRAY [facility] Start: 06-16-2024 ambulatory Eduardo WRAY Facility:[facility] Start: 06-09-2024 End: 06-09-2024 Bamboo flowsheet Jerry Steve DO Work Phone: [facility] Start: 06-09-2024 End: 06-09-2024 Bamboo flowsheet Jerry Steve DO Work Phone: [facility] Start: 06-09-2024 End: 06-09-2024 ambulatory JERRY STEVE Not Available Start: 06-09-2024 End: 06-09-2024 Office outpatient visit 15 minutes Jerry Steve DO Work Phone: [facility] Comment on above: SOB (shortness [...] 17w5d Start: 05-09-2024 End: 05-09-2024 ambulatory JERRY STEVE Not Available Start: 04-01-2024 End: 04-01-2024 ambulatory John Paul Lovell MD Work Phone: [facility] Work Phone: Start: 04-01-2024 End: 04-01-2024 Patient encounter procedure John Paul Lovell MD Work Phone: [facility] Work Phone: Start: 01-09-2024 End: 01-09-2024 Lab Drop off Ras Miller [facility] Start: 01-02-2024 ambulatory Wil Brooks acility:[facility] Start: 01-02-2024 Registered Recurring John Paul Lovell MD Work Phone: [facility] Start: 10-17-2023 End: 10-17-2023 Telephone encounter Mak Jordan HOUSEKEEPING LEAD Work Phone: [facility] Start: 10-16-2023 End: 10-16-2023 Bamboo flowsheet Mak Jordan HOUSEKEEPING LEAD Work Phone: [facility] Start: 10-16-2023 End: 10-16-2023 Bamboo flowsheet Mak Jordan HOUSEKEEPING LEAD Work Phone: [facility] Start: 10-16-2023 End: 10-16-2023 Initial preventive medicine new pt age 18-39yrs Mak Jordan HOUSEKEEPING LEAD Work Phone: [facility] Comment on above: Encounter for medica l examination to establish care (Primary Dx); Bipolar depression (CMS/HCC); Anxiety; Attention deficit hyperactivity disorder (ADHD), combined type (CMS/HCC); PTSD (post-traumatic stress disorder) (CMS/[facility]); History of anemia; Screening for heart disease; Wheezing; COVID-19; Skin lesion of left arm Start: 10-16-2023 End: 10-16-2023 Patient encounter status Mak Jordan HOUSEKEEPING LEAD Work Phone: [facility] Start: 10-16-2023 End: 10-16-2023 ambulatory MAK JORDAN Not Available Start: 09-10-2023 End: 09-12-2023 Evaluation and management of inpatient Magalis Snow [place] Start: 09-05-2023 End: 09-05-2023 ambulatory Magalis Snow [place] Start: 09-05-2023 End: 09-05-2023 Lab Drop off Magalis Snow [facility] Start: 09-05-2023 End: 09-05-2023 ambulatory MAGALIS SNOW Not Available Start: 08-30-2023 End: 10-07-2023 Pre-admission assessment Magalis Snow [facility] Start: 08-29-2023 End: 08-29-2023 OB Triage Ras Miller [facility] Start: 07-20-2023 End: 08-21-2023 Pre-admission assessment Magalis Snow [facility] Start: 07-19-2023 End: 07-19-2023 ambulatory DO Magalis Snow [place] Start: 07-19-2023 End: 07-19-2023 OB Triage Magalis Snow [facility] Start: 07-09-2023 End: 07-09-2023 ambulatory DO Magalis Snow [place] Start: 07-09-2023 End: 07-09-2023 Patient encounter procedure Kourtney PIERCE [facility] Start: 03-20-2023 Bamboo flowsheet Kourtney kolb HOUSEKEEPING LEAD Work Phone: [facility] Start: 03-20-2023 Bamboo flowsheet Kourtney kolb HOUSEKEEPING LEAD Work Phone: [facility] Start: 03-20-2023 End: 03-20-2023 Office outpatient visit 25 minutes Kourtney Pierce NP Work Phone: [facility] Comment on above: GA: 12w6d Start: 03-19-2023 Chart abstracting Kourtney Pierce NP Work Phone: [facility] Start: 03-15-2023 End: 03-15-2023 flow sheet Kourtney Pierce NP Work Phone: [facility] Comment on above: GA: 12w1d Start: 02-13-2023 End: 02-13-2023 Emergency department patient visit Steven Alatorre [facility] Start: 01-26-2023 End: 01-26-2023 Emergency department patient visit Steven Alatorre [facility] Start: 01-23-2023 End: 01-23-2023 Emergency department patient visit Steven Alatorre [facility] Start: 01-01-2023 End: 01-01-2023 ambulatory Alon Johnson [place] Start: 01-01-2023 End: 01-01-2023 Lab Drop off Alon Johnson [facility] Start: 01-01-2023 End: 01-01-2023 ambulatory Alon Johnson Facility:[facility] Start: 12-07-2022 End: 12-08-2022 Emergency department patient visit Damaris Wilson Ita [facility] Start: 10-30-2022 End: 10-30-2022 Emergency department patient visit Steven Alatorre [facility] Start: 08-07-2022 End: 08-10-2022 Evaluation and management of inpatient Ras Miller [place] Start: 08-07-2022 End: 08-10-2022 Evaluation and management of inpatient Jerry WILSON [facility] Start: 08-05-2022 End: 09-05-2022 Pre-admission assessment Jerry R STEVE [facility] Start: 08-04-2022 End: 08-04-2022 ambulatory Jerry WILSON [place] Start: 08-04-2022 End: 08-04-2022 OB Triage Jerry WILSON [facility] Start: 01-18-2022 End: 01-18-2022 Emergency department patient visit Ender Merrill [facility] Start: 01-05-2022 End: 01-05-2022 Emergency department patient visit Ender Merrill [facility] Start: 01-02-2022 End: 01-02-2022 Emergency department patient visit Steven Alatorre [facility] Start: 10-16-2021 End: 10-16-2021 Emergency department patient visit Ana Milliganjanki [facility] Start: 09-14-2021 End: 09-14-2021 Emergency department patient visit Ender Merrill [facility] Start: 06-07-2021 End: 06-09-2021 Evaluation and management of inpatient Ras Miller [facility] Start: 06-02-2021 End: 07-06-2021 Pre-admission assessment Ras Miller [facility] Start: 05-23-2021 End: 05-23-2021 Lab Drop off Ras Miller [facility] Start: 11-01-2020 End: 11-01-2020 ambulatory WAN VASQUEZ Facility:[facility] Procedures Date Procedure Procedure Detail Performing Clinician Start: 08-07-2024 US OB BPP W NON-STRESS Holli TOUSSAINT Work Phone: Start: 07-22-2024 Urnls dip stick/tabl et rgnt non-auto w/o micrscp Jerry Steve DO Work Phone: Start: 07-04-2024 ULTRASOUND OFFICE Not I n System Ref Prov Start: 07-04-2024 US OB GROWTH Jerry Fazi o DO Work Phone: Start: 06-24-2024 Urnls dip stick/tabl et rgnt non-auto w/o micrscp Jerry Steve DO Work Phone: Start: 06-04-2024 TBH UA (CLEAN/CATCH) HIGH RAW SUGAR BOILER/MICRO IF IND. Jerry Steve DO Work Phone: Start: 05-27-2024 US OB ANATOMY Jerry Xenia io DO Work Phone: Start: 05-27-2024 US OB CERVICAL LENGTH C orey Steve DO Work Phone: Start: 05-27-2024 ULTRASOUND OFFICE Not I n System Ref Prov Start: 05-22-2024 RECURRENT VAGINITIS (HTRX) Jerry Steve DO Work Phone: Start: 05-22-2024 Urnls dip stick/tabl et rgnt non-auto w/o micrscp Jerry Steve DO Work Phone: Start: 05-09-2024 ULTRASOUND OFFICE Not I n System Ref Prov Start: 05-09-2024 End: 05-09-2024 Urnls dip stick/tablet rgnt non-auto w/o micrscp Jerry Steve DO Work Phone: Start: 03-20-2023 Urnls dip stick/tabl et rgnt non-auto w/o micrscp Kourtney Pierce NP Work Phone: None (qualifier value) Ras Miller Plan of Treatment Date Care Activity Detail Author Start: 07-22-2025 End: 07-22-2025 US MFM with or without consult US MFM with or without consult Imaging Routine Encounter for follow-up ultrasound of anatomy Expected: 07/22/2025 (Approximate), Expires: 07/22/2025 [facility] Work Phone: Comment on above: Expected: 07/22/2025 (Approximate), Expires: 07/22/2025 Start: 10-06-2024 Influenza vaccination [facility] Start: 09-03-2024 End: 09-03-2024 Patient encounter procedure 09/03/2024 11:00 AM EDT Appointment [facility] [address] [place] [address] [facility] Start: 08-20-2024 End: 07-21-2025 US MFM with or without consult US MFM with or without consult Imaging Routine Abnormal ultrasound Expected: 08/20/2024 (Approximate), Expires: 07/21/2025 [facility] Work Phone: Comment on above: Expected: 08/20/2024 (Approximate), Expires: 07/21/2025 Start: 08-19-2024 End: 08-19-2024 Patient encounter procedure 08/19/2024 1:50 PM EDT Routine [facility] [address] [place] [address] Jerry Wilson, [address] [place], [place] [id number] [facility] Start: 08-05-2024 End: 02-05-2025 US biophysical profile w non stress test US biophysical profile w non stress test Imaging Routine SGA (small for gestational age) ([facility]) Expected: 08/05/2024 (Approximate), Expires: 02/05/2025 [facility] Work Phone: Comment on above: Expected: 08/05/2024 (Approximate), Expires: 02/05/2025 Start: 08-05-2024 End: 08-05-2024 Patient encounter procedure [facility] Comment on above: Arrived Start: 07-22-2024 End: 07-22-2024 Patient encounter procedure 07/22/2024 1:20 PM EDT Routine [facility] [address] [place] [id number] Jerry Wilson, DO [address] [place] [address] [facility] Start: 07-22-2024 End: 07-22-2024 Patient encounter procedure 07/22/2024 7:30 AM EDT Appointment [facility] Imaging [address] [place] [address] [facility] Start: 06-24-2024 End: 06-24-2024 Patient encounter procedure [facility] Comment on above: Arrived Start: 05-26-2024 End: 05-26-2024 Patient encounter procedure 05/26/2024 9:20 AM EDT Routine [facility] [address] [place] [phone] Jerry Wilson, DO [address] [place] [address] [facility] Start: 05-22-2024 End: 06-21-2024 Alpha fetoprotein, maternal Alpha fetoprotein, maternal Lab Routine Need for maternal serum alpha-protein (MSAFP) screening Expected: 05/22/2024 (Approximate), Expires: 06/21/2024 [facility] Comment on above: Expected: 05/22/2024 (Approximate), Expires: 06/21/2024 Start: 05-22-2024 End: 08-21-2024 US for US OB 14+ weeks anatomy scan Imaging Routine Screening, , for anatomic survey Expected: 05/22/2024, Expires: 08/21/2024 [facility] Comment on above: Expected: 05/22/2024 , Expires: 08/21/2024 Start: 05-22-2024 End: 05-22-2024 Patient encounter procedure 05/22/2024 11:00 AM EDT Routine [facility] [address] [place] [phone] Jerry Wilson, DO [address] [place] [address] Arrived [facility] Comment on above: Arrived Start: 05-09-2024 End: 05-09-2025 ABO/Rh ABO/Rh Lab Routine Missed menses , unspecified gestational age Expected: 05/09/2024 (Approximate), Expires: 05/09/2025 [facility] Comment on above: Expected: 05/09/2024 (Approximate), Expires: 05/09/2025 Start: 05-09-2024 End: 06-08-2024 Alpha fetoprotein, maternal Alpha fetoprotein, maternal Lab Routine Missed menses , unspecified gestational age Encounter for supervision of normal first in first trimester Expected: 05/09/2024 (Approximate), Expires: 06/08/2024 [facility] Comment on above: Expected: 05/09/2024 (Approximate), Expires: 06/08/2024 Start: 05-09-2024 End: 05-09-2025 Blood type and Indirect antibody screen panel - Blood Type and screen Lab Routine Missed menses , unspecified gestational age Expected: 05/09/2024 (Approximate), Expires: 05/09/2025 [facility] Work Phone: Comment on above: Expected: 05/09/2024 (Approximate), Expires: 05/09/2025 Start: 05-09-2024 End: 05-09-2025 Drugs of abuse panel - Urine by Screen method Rapid drug screen, urine Lab Routine , unspecified gestational age Encounter for supervision of normal first in first trimester Expected: 05/09/2024 (Approximate), Expires: 05/09/2025 [facility] Comment on above: Expected: 05/09/2024 (Approximate), Expires: 05/09/2025 Start: 10-31-2023 End: 10-16-2024 CBC W Auto Differential panel - Blood CBC and differential Lab Routine Anemia, unspecified type Expected: 10/31/2023 (Approximate), Expires: 10/16/2024 [facility] Comment on above: Expected: 10/31/2023 [...] 10/31/2023 (Approximate), Expires: 10/16/2024 [facility] Work Phone: Comment on above: Expected: 10/31/2023 (Approximate), Expires: 10/16/2024 Start: 10-24-2023 End: 10-24-2023 ambulatory 10/24/2023 3:30 PM EDT Visit [facility] [address] [phone] Magalis Snow DO [address] [phone] [facility] Start: 10-22-2023 End: 10-22-2023 Patient encounter procedure 10/22/2023 2:55 PM EDT Office Visit [facility] [address] [place] [address] Kellee Glynn, IDENTITY MANAGEMENT DEVELOPER-VARSITY BASEBALL COACH [address] [place] [address] [facility] Start: 10-16-2023 End: 10-15-2024 CBC W Auto Differential panel - Blood CBC and differential Lab Routine History of anemia Screening for heart disease Encounter for medical examination to establish care Expected: 10/16/2023 (Approximate), Expires: 10/15/2024 [facility] Comment on above: Expected: 10/16/2023 (Approximate), Expires: 10/15/2024 Start: 10-16-2023 End: 10-15-2024 Comprehensive metabolic 2000 panel - Serum or Plasma Comprehensive metabolic panel Lab Routine History of anemia Screening for heart disease Encounter for medical examination to establish care Expected: 10/16/2023 (Approximate), Expires: 10/15/2024 [facility] Work Phone: Comment on above: Expected: 10/16/2023 (Approximate), Expires: 10/15/2024 Start: 10-16-2023 End: 10-16-2023 Patient encounter procedure 10/16/2023 2:00 PM EDT Office Visit [facility] [address] [place] [phone] Mak Jordan NP [address] [place] [address] Arrived [facility] Comment on above: Arrived [...] first trimester Expected: 04/13/2023 (Approximate), Expires: 03/15/2024 [facility] Comment on above: Expected: 04/13/2023 (Approximate), Expires: 03/15/2024 Start: 04-13-2023 End: 03-15-2024 Reagin Ab [Presence] in Serum by RPR RPR Lab Routine Supervision of normal intrauterine in multigravida, first trimester Expected: 04/13/2023 (Approximate), Expires: 03/15/2024 [facility] Comment on above: Expected: 04/13/2023 (Approximate), Expires: 03/15/2024 Start: 03-20-2023 End: 03-20-2023 ambulatory [facility] Comment on above: Arrived Start: 01-06-2023 DTaP,Tdap and Td Vaccines (1 - Tdap) DTaP,Tdap and Td Vaccines (1 - Tdap) [facility] Start: 01-06-2022 Adult BMI Screening Adult BMI Screen ing [facility] Start: 2016 Depression Screening Depression Scre ening [facility] Start: 2016 Tobacco Screening Tobacco Screening [facility] Start: 2004 Screening for Chlamy robby trachomatis Chlamydia Screening [facility] Bacteria identified in Urine by Culture Urine culture Microbiology Routine Missed menses Ordered: 05/09/2024 [facility] Comment on above: Ordered: 05/09/2024 CBC W Auto Different ial panel - Blood CBC and differential Lab Routine Missed menses , unspecified gestational age Ordered: 05/09/2024 [facility] Comment on above: Ordered: 05/09/2024 CHLAMYDIA TRACHOMATI S (GENITO/STI) CHLAMYDIA TRACHOMATIS (GENITO/STI) Lab Routine Exposure to STD Ordered: 05/22/2024 [facility] Comment on above: Ordered: 05/22/2024 Hemoglobin A1c/Hemoglobin.total in Blood Hemoglobin A1c Lab Routine Missed menses , unspecified gestational age Ordered: 05/09/2024 [facility] Comment on above: Ordered: 05/09/2024 Hepatitis B [...] [facility] Comment on above: Ordered: 05/09/2024 Neisseria gonorrhoea e DNA [Presence] in Unspecified specimen by TIM with probe detection Neisseria gonorrhea DNA probe, direct Lab Routine Exposure to STD Ordered: 05/22/2024 [facility] Comment on above: Ordered: 05/22/2024 Reagin Ab [Presence] in Serum by RPR RPR Lab Routine Missed menses , unspecified gestational age Ordered: 05/09/2024 [facility] Comment on above: Ordered: 05/09/2024 Rubella antibody, IgG Rubella an tibody, IgG Lab Routine Missed menses , unspecified gestational age Ordered: 05/09/2024 [facility] Comment on above: Ordered: 05/09/2024 SURESWAB(R) ADVANCED VAGINITIS PLUS, TMA SURESWAB(R) ADVANCED VAGINITIS PLUS, TMA Pathology and Cytology Routine Exposure to STD Ordered: 05/22/2024 [facility] Work Phone: Comment on above: Ordered: 05/22/2024 SURESWAB(R), CT/NG T VAGINALIS SURESWAB(R), CT/NG T VAGINALIS Pathology and Cytology Routine care, subsequent , first trimester Ordered: 03/20/2023 [facility] Work Phone: Comment on above: Ordered: 03/20/2023 Immunizations Immunization Date Immunization Notes Care Provider [place] 08-09-2022 tetanus toxoid, reduced diphtheria toxoid, and acellular pertussis vaccine, adsorbed Jerry WILSON [facility] Comment on above: Reason for Medicatio n: Other (see comment) 06-08-2021 tetanus toxoid, reduced diphtheria toxoid, and acellular pertussis vaccine, adsorbed; Translations: [Boostrix (Tdap)] Ras Miller [facility] Comment on above: Reason for Medicatio n: Other (see comment) 10-28-2020 SARS-CoV-2 (COVID-19 ) mRNA BNT-162b2 lucie Johnson [facility] Comment on above: Result Comment: 2022: TPVAL 10-07-2020 SARS-CoV-2 (COVID-19 ) mRNA BNT-162b2 lucie Johnson [facility] Comment on above: Result Comment: 2022: TPVAL 09-21-2016 hepatitis A vaccine, adult dosage Ras Miller [facility] 09-21-2016 HPV, unspecified formulation Ras Miller [facility] 09-21-2016 meningococcal ACWY vaccine, unspecified formulation Ras Miller [facility] 09-21-2016 tetanus toxoid, reduced diphtheria toxoid, and acellular pertussis vaccine, adsorbed Ras Paul [facility] 06-26-2008 diphtheria, tetanus toxoids and acellular pertussis vaccine Ras Paul [facility] 06-26-2008 measles, mumps and rubella virus vaccine Ras Paul [facility] 06-26-2008 poliovirus vaccine, unspecified formulation Ras Paul [facility] 06-26-2008 varicella virus vaccine Ras Paul [facility] 10-02-2005 diphtheria, tetanus toxoids and acellular pertussis vaccine Ras Miller [facility] 10-02-2005 haemophilus influenz ae type b vaccine, HbOC conjugate Ras Miller [facility] 10-02-2005 hepatitis B vaccine, adult dosage Ras Miller [facility] 10-02-2005 measles, mumps and rubella virus vaccine Ras Miller [facility] 10-02-2005 poliovirus vaccine, unspecified formulation Ras Miller [facility] 10-02-2005 varicella virus vaccine Ras Paul [facility] 2004 diphtheria, tetanus toxoids and acellular pertussis vaccine Ras Paul [facility] 2004 haemophilus influenz ae type b vaccine, HbOC conjugate Ras Miller [facility] 2004 hepatitis B vaccine, adult dosage Ras Miller [facility] 2004 pneumococcal conjuga te vaccine, 13 valent Ras Miller [facility] 2004 poliovirus vaccine, unspecified formulation Ras Miller [facility] 2004 diphtheria, tetanus toxoids and acellular pertussis vaccine Ras Miller [facility] 2004 haemophilus influenz ae type b vaccine, HbOC conjugate Ras Miller [facility] 2004 hepatitis B vaccine, adult dosage Ras Miller [facility] 2004 pneumococcal conjuga te vaccine, 13 valent Ras Miller [facility] 2004 poliovirus vaccine, unspecified formulation Ras Miller [facility] NEGATED: Highlighted row has not occurred!01-01-2023 influenza virus vaccine, unspecified formulation Alon Johnson [facility] Payers Date Payer Category Payer Self-pay 2022 Medicaid [id number] 2022 Medicaid [id number] 2004 Unknown [id number] 2.16.8 40.1.442235.3.579.2.727 2004 Unknown [id number] 2.16.8 40.1.706038.3.579.2.727 2004 Unknown [id number] 2.16.8 40.1.560769.3.579.2.727 2004 Unknown [id number] 2.16.8 40.1.799474.3.579.2.727 2004 Unknown [id number] 2.16.8 40.1.797907.3.579.2.727 2004 Unknown [id number] 2.16.8 40.1.168439.3.579.2.727 2004 Unknown [id number] 2.16.8 40.1.124234.3.579.2.727 2004 Unknown [id number] 2.16.8 40.1.627161.3.579.2.727 2004 Unknown [id number] 2.16.8 40.1.785154.3.579.2.727 2004 Unknown [id number] 2.16.8 40.1.313999.3.579.2.727 2004 Unknown [id number] 2.16.8 40.1.743125.3.579.2.727 2004 Unknown [id number] 2.16.8 40.1.962141.3.579.2.727 2004 Unknown [id number] 2.16.8 40.1.067426.3.579.2.727 2004 Unknown [id number] 2.16.8 40.1.599778.3.579.2.727 2004 Unknown [id number] 2.16.8 40.1.610810.3.579.2.727 2004 Unknown [id number] 2.16.8 40.1.333906.3.579.2.727 2004 Unknown [id number] 2.16.8 40.1.101931.3.579.2.727 2004 Unknown [id number] 2.16.8 40.1.384905.3.579.2.727 2004 Unknown [id number] 2.16.8 40.1.088455.3.579.2.727 2004 Unknown [id number] 2.16.8 40.1.395672.3.579.2.727 2004 Unknown [id number] 2.16. 840.1.090527.3.579.2.1286 2004 Unknown [id number] 2.16.8 40.1.503695.3.579.2.1259 2004 Unknown [id number] 2.16.8 40.1.224271.3.579.2.1259 2004 Unknown [id number] 2.16.84 0.1.548925.3.579.2.1259 2004 Unknown [id number] 2.16.84 0.1.036863.3.579.2.1259 2004 Unknown [id number] 2.16.84 0.1.140746.3.579.2.1259 2004 Unknown [id number] 2.16.84 0.1.614166.3.579.2.1259 2004 Unknown [id number] 2.16.84 0.1.838110.3.579.2.1259 2004 Unknown [id number] 2.16.84 0.1.335535.3.579.2.1259 2004 Unknown [id number] 2.16.84 0.1.768798.3.579.2.1259 1978 Unknown [id number] 2.16.84 0.1.903785.3.579.2.593 1959 Unknown [id number] Unknown [id number] Social History Date Type Detail Facility Tobacco Never smoker [facility] Comment on above: denies Start: 03-15-2023 End: 10-16-2023 [facility] Start: 01-01-2023 End: 03-15-2023 Tobacco smoking status Never smoked tobacco (finding) [facility] Comment on above: smokers in home Tobacco smoking status Never [facility] Comment on above: smokers in home Start: 03-15-2023 End: 07-21-2024 Tobacco use and exposure Smokeless tobacco non-user [...] [facility] Work Phone: Start: 09-10-2014 End: 04-01-2024 Sex Female (finding) [facility] Start: 2005 Sex Assigned At Female F [facility] Start: 07-21-2024 Alcoholic beverage intake Lifetime non-drinker (finding) [facility] Functional Status Date Assessment Result Facility 06-19-2024 Functional Status N/A [facility] 09-10-2023 Functional Status No [facility] 08-29-2023 Functional Status N/A [facility] 07-19-2023 Functional Status N/A [facility] 02-13-2023 Functional Status N/A [facility] 01-26-2023 Functional Status N/A [facility] 01-23-2023 Functional Status N/A [facility] 12-07-2022 Functional Status N/A [facility] 10-30-2022 Functional Status N/A [facility] 08-07-2022 Functional Status N/A [facility] 08-04-2022 Functional Status N/A [facility] 01-18-2022 Functional Status N/A [facility] 01-05-2022 Functional Status N/A [facility] 01-02-2022 Functional Status N/A [facility] 10-16-2021 Functional Status N/A [facility] 09-14-2021 Functional Status N/A [facility] Clinical Notes 05-23-2021 to 08-05-2024 BREANA Chapin - 08/05/2024 9:50 AM Rich Moeller LPN - 07/22/2024 1:20 PM Rich Moeller LPN - 06/24/2024 1:50 PM BREANA Bearden - 06/09/2024 10:50 AM Maxwell Ohara LPN - 05/09/2024 9:30 AM EDT Note Date & Type Note Facility 08-05-2024 History of Present illness Narrative Reason for [...] Vitals: Estimated body mass index is 29.03 kg/m as calculated from the following: Height as of 24: 5' 4 . Weight as of this encounter: 169 lb 2 oz. BP: 102/50 Patient's last menstrual period was 02/23/2024. ASSESSMENT & PLAN ICD-10-CM 1. Third trimester ([facility]) Z34.93 2. 30 weeks gestation of ([facility]) Z3A.30 3. SGA (small for gestational age) ([facility]) P05.10 Return OB: Patient presents today for a routine obstetrics appointment. Patient is currently 30w2d . Patient states she is doing well but has complaints of being tired due to current . Patient has verbalizes frequent movement. labor precautions was discussed/given and patient was instructed to perform kick counts three times a day. Patient released from senior care, we will start her with NST/BPP this [...] of: BREANA Chapin documented in this encounter [facility] 07-22-2024 History of Present illness Narrative Reason for [...] nursing note reviewed. Exam conducted with a kitchen mechanic present. Vitals: Estimated body mass index is 28.28 kg/m as calculated from the following: Height as of 10/16/23: 5' 4 . Weight as of this encounter: 164 lb 12 oz. BP: 122/66 Patient's last menstrual period was 02/23/2024. ASSESSMENT & PLAN ICD-10-CM 1. Third trimester ([facility]) Z34.93 POCT urinalysis dipstick manually resulted 2. 28 weeks gestation of ([facility]) Z3A.28 3. SGA (small for gestational age) ([facility]) P05.10 Return OB: Patient presents today for a routine obstetrics appointment. Patient is currently 28w2d . Patient states she is doing well but has complaints of being tired due to current . Patient has verbalizes frequent movement. labor precautions was discussed/given and patient was instructed to perform kick counts three times a day. Orders Placed This Encounter Procedures POCT urinalysis dipstick manually resulted Follow Up: Patient is to return to office in 2 week for routine OB appointment. Documented by Tavia Moeller LPN on behalf of: Jerry Wilson DO documented in this encounter [facility] 06-24-2024 History of Present illness Narrative Reason [...] nursing note reviewed. Exam conducted with a kitchen mechanic present. Vitals: Estimated body mass index is [...] and 's voiced understanding. Documented by Tavia Moeller LPN on behalf of: Jerry Wilson DO documented in this encounter [facility] 06-09-2024 History of Present illness Narrative Reason [...] Jerry Wilson DO documented in this encounter [facility] 05-22-2024 History of Present illness Narrative Reason [...] nursing note reviewed. Exam conducted with a kitchen mechanic present. Vitals: Estimated body mass index is [...] to breath at times. Had been to [facility] twice on 05/16/2024 and 05/19/2024 and was given breathing treatments no inhaler or meds. Holli Roque listened to her lungs and could hear some wheezing and prescribed an inhaler along w/Zpak. Cultures was obtained without difficulty and patient was [facility] have obtained. Orders Placed This Encounter Procedures US OB 14+ weeks anatomy scan CHLAMYDIA TRACHOMATIS (GENITO/STI) Neisseria gonorrhea DNA probe, direct Alpha fetoprotein, maternal POCT urinalysis dipstick manually resulted Follow Up: Patient is to return to our office in 4 weeks for routine OB appointment Documented by Tamy Juarez MA on behalf of: breana chapin documented in this encounter [facility] 05-09-2024 History of Present illness Narrative Reason [...] or undercooked meat, and stay away from [facility]. Patient has also been advised to not change litter boxes and eat 6 small meals a day. Patient has been consulted regarding the do's and don'ts of . Patient was given labs and all questions and concerns were answered. Patient given MSAFP to have obtained. Patient declined [place]. Prenatals sent into pharmacy. Follow Up: Patient [...] or undercooked meat, and stay away from [facility]. Patient has also been advised to not change litter boxes and eat 6 small meals a day. Patient has been consulted regarding the do's and don'ts of . Patient was given labs and all questions and concerns were answered. [facility], Declined [place] and script for sent. Follow Up: Patient [...] Plan note Diagnostic Tests PendingChlamydia/Gonococcus, TIM 01/09/24 [facility] 10-17-2023 Telephone encounter Note Abnormal labs [facility] [...] to take meds for it. Sofía from [facility] counseling [facility] is her therapist [...] 1.53)* * Growth percentiles are based on [facility] (Girls, 2-20 Years) data. Physical Exam General: [...] - CBC and differential; Future Bipolar depression ([facility]) - Ambulatory referral to Psychiatry; Future Anxiety - Ambulatory referral to Psychiatry; Future Attention deficit hyperactivity disorder (ADHD), combined type ([facility]) - Ambulatory referral to Psychiatry; Future PTSD (post-traumatic stress disorder) ([facility]) - Ambulatory referral to Psychiatry; Future [...] Future Pt is to continue counseling at [facility]. Blood pressure looks good. documented in this encounter [facility] 09-12-2023 Note Discharge Instructio ns Given Worsening The following Patient Education Materials have been given to the patient: ~~ EducationMaterial [facility] 09-12-2023 Evaluation + Plan note Extrac [...] Headache, # 90 tab(s), Refills(s) 1, Pharmacy: [facility], 165.1, cm, 09/10/23 21:47:00 EDT, Height/Length Dosing, 84.5, kg, 09/10/23 21:47:00 EDT, Weight Dosing docusate, 100 mg = 1 cap(s), Oral, BID, # 30 cap(s), Refills(s) 1, Pharmacy: [facility] 1985, 165.1, cm, 09/10/23 21:47:00 EDT, Height/Length Dosing, 84.5, kg, 09/10/23 21:47:00 EDT, Weight Dosing ferrous sulfate, 325 mg = 1 tab(s), Oral, BIDWM, # 60 tab(s), Refills(s) 5, Pharmacy: [facility] 1985, 165.1, cm, 09/10/23 21:47:00 EDT, Height/Length Dosing, 84.5, kg, 09/10/23 21:47:00 EDT, Weight Dosing HYDROmorphone, 2 mg = 1 tab(s), Tab, Oral, Once PRN Pain 8-10, Routine, Start date 09/11/23 23:48:00 EDT, if pain unrelieved from other pain medications or remedies, 09/11/23 23:48:00 EDT ibuprofen, 600 mg = 1 tab(s), Oral, q6hr, PRN Other (see comment), # 60 tab(s), Refills(s) 1, Pharmacy: [facility] 1985, 165.1, cm, 09/10/23 21:47:00 EDT, Height/Length [...] from: Title:OB Admission H&P Author:Reyes Snow DO JFarzad Date:09/11/23 Anemia affecting , antepartum (O99.019: Anemia [...] Insertion Place in Status Shower Vital Signs [facility] [id number] NoteGetWell Understands Education Yes GetWell Education Video How to Swaddle Safely GetWell Learning Participants [facility]08-07-2024 NoteGetWell Learning Participants Patient GetWell Understands Education Yes GetWell Education Video Caring for Yourself [facility] V[facility]24 NoteGetWell Education Video Caring for Your [place]: Sleeping GetWell Learning Participants Patient GetWell Understands Education [facility]08-07-2024 NoteGetWell Understands Education Yes GetWell Education Video Jaundice in Newborns GetWell Learning Participants [facility]08-07-2024 NoteGetWell Education Video Bathing Your Baby GetWell Learning Participants Patient GetWell Understands Education [facility]08-07-2024 NoteGetWell Understands Education Yes GetWell Education Video Caring for Your [place]: Feeding GetWell Learning Participants [facility]08-07-2024 NoteGetWell Education Video Using a Rubber Bulb to Clear a Baby's Nose GetWell Learning Participants Patient GetWell Understands Education [facility]08-07-2024 NoteGetWell Learning Participants Patient GetWell Education Video Safe Sleep for Babies GetWell Understands Education [facility]08-07-2024 NoteGetWell Education Video Understanding Depression GetWell Understands Education GetWell Learning [facility]08-07-2024 NoteGetWell Learning Participants Patient GetWell Understands Education Yes GetWell Education Video Ways to Keep Your Baby [facility]08-07-2024 NoteGetWell Learning Participants Patient GetWell Understands Education Yes GetWell Education Video Car Seat SafetyA[facility]man [facility] Hospital08-07-2024 NoteGetWell Understands Education Yes GetWell Education Video Avoiding Infections in the Hospital GetWell Learning Participants [facility]08-07-2024 NoteGetWell Understands Education Yes GetWell Education Video How to Prevent Abusive Head Trauma GetWell Learning Participants [facility]08-07-2024 NoteGetWell Understands Education Yes GetWell Education Video Caring for Your [place]: Umbilical Cord GetWell Learning Participants [facility]08-07-2024 NoteDischarge Instructions Given Worsening The following Patient Education Materials have been given to the patient: ~~ [facility] NoteDischarge Summary Assessment/Plan Anemia affecting , [...] Headache, # 90 tab(s), Refills(s) 1, Pharmacy: [facility], 165.1, cm, 09/10/23 21:47:00 EDT, Height/Length Dosing, 84.5, kg, 09/10/23 21:47:00 EDT, Weight Dosing docusate, 100 mg = 1 cap(s), Oral, BID, # 30 cap(s), Refills(s) 1, Pharmacy: [facility] 1985,165.1, cm, 09/10/23 21:47:00 EDT, Height/Length Dosing, 84.5, kg, 09/10/23 21:47:00 EDT, Weight Dosing ferrous sulfate, 325 mg = 1 tab(s), Oral, BIDWM, # 60 tab(s), Refills(s) 5, Pharmacy: [facility] 1985, 165.1, cm, 09/10/23 21:47:00 EDT, [...] comment), # 60 tab(s), Refills(s) 1, Pharmacy: [facility], 165.1, cm, 09/10/23 21:47:00 EDT, [...] to push. Patient delivered a viable female infant in OA position with loose nuchal cord x 1 which was reduced at the perineum without difficulty. Infant was weighing 6 pounds 14 ounces, 3124 g with Apgars of 9/9over intact perineum. 3 vessels umbilical cord and intact placenta was delivered spontaneously. RVI447 mL. Patient recovering and stable condition in [...] Details Baby A Delivery Type:Vaginal D-EGA at Occdkynt68 weeks 5 days Total Length of Labor:259 [...] Physician: Magalis Snow DO (more content not included)...[facility]: Result Comment: Electronically Signed By: Magalis Snow DO\.br\Date and Time Signed: 09/12/23 08:47 [id number] Hospital Discharge instructions Patient Education 09/11/2023 18:38:23 [...] , tell your health care provider or auto clutch specialist. If you do not breastfeed: ?Avoid touching your breasts. Do not squeeze out (express) milk. Doing this can make your breasts produce more milk. ?Wear a bra that supports your breasts and fits well. Use cold packs to help with swelling. ?Talk to your health care provider about what vprk-vtc-pnvdmjj medicines can help with pain. Intimacy and [...] control (contraception) or family planning. Medicines Take kedc-viu-rnptefs and prescription medicines only as told by your health care provider. Take an hggt-vjz-ebecrjy stool softener to help ease bowel movements as told by your health care provider. If you were prescribed antibiotics, take them as told by your health care provider. Do not stop using the antibiotic even if you start to feel better. Review all previous and current prescriptions to check for the possible transfer into your breast milk. Ask your health care provider or auto clutch specialist for help if needed. Activity Gradually [...] Services Office of Women's Health: womenshealth.gov [employer]: acog.org Contact [...] the National Suicide Prevention Lifeline at or 043. This is open 24 hours a day. Text the Crisis Text Line at 674910. Summary The period of time after you [...] provider. Document Revised: 05/10/2022 Document Reviewed: 04/25/2022 [email or web address] Patient Education 2022 [address]. 09/11/2023 05:46:09 Anemia Anemia Anemia is a [...] spleen. Follow these instructions at home: Take pdff-pka-kzhyhzb and prescription medicines only as told by [...] provider. Document Revised: 04/17/2022 Document Reviewed: 04/17/2022 [email or web address] Patient Education 2022 [address]. Follow Up Care 09/10/2023 21:03:40 With:Magalis Snow Address: [address] [place] [id number] Business (1) When:6 weeks [facility] 08-06-2024 NoteDischarge Instructions Given Worsening The following Patient Education Materials have been given to the patient: ~~ EducationMaterial[facility]08-06-2024 NoteProgress Note-Physician Patient: JORDIN TYLER Age: 18 years Sex: Female : 2005 Associated Diagnoses: None Author: Ra Casas Jr., DO Postoperative Information Postoperative disposition: Postoperative disposition: Day 2. Optimetrix number: Optimetrix number [id number]. Anesthetic utilized: Regional: Epidural. Physical Examination Hemodynamically stable. Pain Assessment: Controlled. General: Awake, Alert, Appropriate. Respiratory: Adequate air exchange. Cardiovascular: Stable. Neurological: Normal sensory function. Assessment Anesthetic outcome No post-epidural complications noted.. Review / Management Condition: Stable. Plan Transfer/Discharge: Stable for discharge from anesthetic standpoint..[facility]Comment on above:Result Comment: Electronically Signed By: Ra Casas Jr., DO\.br\Date and Time Signed: 09/11/23 07:10 [id number] NoteProgress Note-Physician Patient: JORDIN TYLER Age: 18 years Sex: Female : 2005 Associated Diagnoses: None Author: Ra Casas Jr., DO Chief Complaint Intrauterine Health Status Allergies: Allergic Reactions (All) No Known Allergies Canceled/Inactive Reactions (All) No Known Medication Allergies Current medications.Problem list: All Problems 37 weeks gestation of / SNOMED CT 66854593 / Confirmed ADHD (attention deficit hyperactivity disorder), combined type / SNOMED CT 51796175 / Confirmed Age mother conceived under 17 / Patient Care / Confirmed Encounter for supervision of normal first , third trimester / SNOMED CT 683301967 / Confirmed Infection / SNOMED CT 69639086 / Confirmed / SNOMED CT 190869676 / Confirmed Shortness of breath in pediatric patient / SNOMED CT 959622970 / Confirmed Very young maternal age, antepartum / SNOMED CT 262028243 / Confirmed Resolved: Acute gastroenteritis / SNOMED CT 176244755 resolved per patient Resolved: Acute low back pain due to trauma / SNOMED CT 257636134 resolved per patient Resolved: Blurry vision, left eye / SNOMED CT 261288819 resolved per patient Resolved: Chest pain / SNOMED CT 63491286 resolved per patient Resolved: Inspiratory stridor / SNOMED CT 687662397 Resolved: Post-traumatic stress syndrome / SNOMED CT 77783596 resolved per patient. Resolved: / SNOMED CT 992306585 Resolved: / SNOMED CT 700591415 Resolved: Strep pharyngitis / SNOMED CT 13969659 Resolved: Viral gastroenteritis / SNOMED CT 951626864 Resolved: Vomiting / SNOMED CT 8803724720 Canceled: None / SNOMED CT 577660591 Review of Systems Respiratory: Negative. Cardiovascular: Negative. [...] 30 minutes. The PCEA was started at 0145.[facility] HospitalComment on above:Result Comment: Electronically Signed By: Ra Casas Jr., DO.berkley\Date and Time Signed: 09/11/23 07:09 [id number] NoteHistory and Physical Reason for Visit OB [...] MethodExternal toco Cervical Cervix Dilation4.5 cm Cervix [id number] Station Calculation-3 LMP/EGA/ALISHA Gestational Age (EGA) and [...] gastroenteritis Vomiting Procedure/Surgical History (more content not included)...[facility] on above:Result Comment: Electronically Signed By: Magalis Snow DO\Date and Time Signed: 09/11/23 01:31 [id number] Evaluation + Plan note Diagnostic Tests Pending * Group B Streptococcus colonization by PCR 09/05/23 [facility] [id number] Hospital Discharge instructions Patient Education 08/29/2023 16:59:58 Dehydration, Adult, Lkgg-su-Tdyf Dehydration, Adult Dehydration is condition in which [...] of fat or sugar. General instructions Take ensy-qfl-gehplit and prescription medicines only as told by [...] start slowly drinking other clear fluids. Take vjne-uwq-yqrjgmp and prescription medicines only as told by your doctor. Get help right away if you have any symptoms of very bad dehydration. This information is not intended to replace advice given to you by your health care provider. Make sure you discuss any questions you have with your health care provider. Document Revised: 05/31/2022 Document Reviewed: 09/04/2019 [email or web address] Patient Education 2022 [address]. Follow Up Care 08/29/2023 14:46:47 With:Magalis Snow Address: [facility] [address] [place] [address]- Business (1) When:09/05/2023 13:00:00 Comments:Call for any problems. [facility] 07-24-2024 Evaluation + Plan note Diagnostic Tests Pending * Urine Culture 08/29/23 [facility] 06-13-2024 Evaluation + Plan note Diagnostic Tests Pending * Urine Culture 07/19/23 [facility]06-13-2024 NoteThe following Patient Education Materials have been given to the patient: [facility] Discharge instructions Follow Up Care 07/19/2023 06:05:30 With:Magalis Snow Address: [address] [place] [address]- Business (1) When:07/25/2023 Comments:Call for any problems.Call physician if symptoms worsenReturn for contractions closer, longer, harderReturn for decreased movementReturn if ruptured membranes or vaginal bleeding [facility]06-03-2024 Evaluation + Plan note Diagnostic Tests Pending * Hepatitis B Surface Antigen 07/09/23 * RPR with Conf Rfx 07/09/23 * HIV Screen 4th Generation wRfx 07/09/23 * Urine Culture 07/09/23 [facility]02-13-2024 History of Present illness Narrative* Kourtney Pierce NP - 03/20/2023 8:20 AM EST Subjective Jordin [...] when she fell down some stairs at [place]. No fx. Not sure how long she [...] for a routine visit. documented in this encounterChildren[id number] History of Present illness Narrative* Miryam Ingram [...] genetic and chromosomal testing documented in this encounterChildren's [id number] Hospital Discharge instructions Patient Education 02/13/2023 17:17:08 [...] products, such as yogurt. General instructions Take qxaf-cmu-eihhnrt and prescription medicines only as told by [...] provider. Document Revised: 10/06/2021 Document Reviewed: 10/06/2021 [email or web address] Patient Education 2022 [email or web address] 02/13/2023 17:17:01 Urinary Tract Infection, Adult, Pozv-il-Zyfr Urinary Tract Infection, Adult A urinary tract [...] Follow these instructions at home: Medicines Take lbgx-itc-ujsockc and prescription medicines only as told by [...] provider. Document Revised: 09/03/2020 Document Reviewed: 09/03/2020 [email or web address] Patient Education [address] 02/13/2023 17:16:58 Hyperemesis Gravidarum Hyperemesis Gravidarum Hyperemesis [...] or daniel tea. Taking prescription medicine or pjjw-ivs-qupfmnp medicine as told by your health care [...] sour. These include lemonade, daniel brittanie, lemon chilkat soda, ice water, and sparkling water. Things [...] your appetite or trigger nausea. General instructions [place] your teeth or use a mouth rinse after meals. Take jdgz-tjs-qeokaxd and prescription medicines only as told by [...] provider. Document Revised: 08/16/2020 Document Reviewed: 08/16/2020 [email or web address] Patient Education [address]22 [address] Follow Up Care 02/13/2023 14:16:46 With:Paul CASE, TASHI Bojorquez Address: [address] [place], [place] [id number] When:2 to 4 days [facility]01-09-2024 Evaluation + Plan note Diagnostic Tests Pending * Urine Culture 02/13/23 [facility]12-22-2023 Hospital Discharge instructions Patient Education 01/26/2023 [...] Follow these instructions at home: Medicines Take rhhb-wum-xrihtiz and prescription medicines only as told by your health care provider. Do not use any prescription, watf-xqm-kozrsfp, or herbal medicines for morning sickness without [...] provider. Document Revised: 09/06/2020 Document Reviewed: 08/16/2020 [email or web address] Patient Education [address]22 [address]. 01/26/2023 21:19:18 Nausea and Vomiting, Adult, Onqe-cv-Ggjo Nausea and Vomiting, Adult Nausea is feeling [...] fruit juice). ?Low-calorie sports drinks. Eat bland, ccbv-oy-rhhucl foods in small amounts as you are able, such as: ?Bananas. ?Applesauce. ?Rice. ?Low-fat (lean) meats. ?[place]. ?Crackers. Avoid drinking fluids that have a lot of sugar or caffeine in them. This includes energy drinks, sports drinks, and soda. Avoid alcohol. Avoid spicy or fatty foods. General instructions Take mbcl-bbn-qccceqc and prescription medicines only as told by your doctor. Drink enough fluid to keep your pee (urine) pale yellow. Wash your hands often with soap and water for at least 20 seconds. If you cannot use soap and water, use hand internal grinder. Make sure that everyone in your home [...] your doctor about eating and drinking. Take nfgc-mud-jpyftpd and prescription medicines only as told by your doctor. Contact your doctor if your symptoms get worse or you have new symptoms. Keep all follow-up visits. This information is not intended to replace advice given to you by your health care provider. Make sure you discuss any questions you have with your health care provider. Document Revised: 07/29/2021 Document Reviewed: 07/29/2021 [email or web address] Patient Education [address]22 [address] Follow Up Care 01/26/2023 19:06:29 With:Ras Miller Address: [address] [facility] [place] [address]- Business (1) When:01/29/2023 21:05:41 Comments:Follow-up with your primary care provider in 3 to 5 days. If symptoms worsen, do not improve, or new symptoms arise please report back to emergency department for further evaluation. With:[employer] Address:Unknown When:Within 3 Day(s) [facility]12-22-2023 Evaluation + Plan noteExtracted from: Title:ED [...] Diagnostic Tests Pending * Urine Culture 01/26/23 [facility]12-19-2023 Hospital Discharge instructions Patient Education 01/23/2023 [...] water added (diluted fruit juice). Eat bland, ysbf-va-aixugw foods in small amounts as you are able. These foods include bananas, applesauce, rice, lean meats, toast, and crackers. Avoid fluids that contain a lot of sugar or caffeine, such as energy drinks, sports drinks, and soda. Avoid alcohol. Avoid spicy or fatty foods. General instructions Take awdx-eyn-rrzcooc and prescription medicines only as told by your health care provider. Drink enough fluid to keep your urine pale yellow. Wash your hands often using soap and water for at least 20 seconds. If soap and water are not available, use hand internal grinder. Make sure that everyone in your household [...] eating and drinking to prevent dehydration. Take raxd-por-hjqqtvx and prescription medicines only as told by [...] provider. Document Revised: 07/29/2021 Document Reviewed: 07/29/2021 [email or web address] Patient Education 2022 [address] Follow Up Care 01/23/2023 11:32:50 With:Ras Miller Address: [address] [place], [place] [phone] Business (1) When:01/26/2023 17:40:04 [facility]12-19-2023 Evaluation + Plan noteExtracted from: Title:ED [...] UA With Cult Reflex US 1st Trimester [facility]11-27-2023 NoteInfectious Disease COVID-19 COVID-19, or coronavirus [...] managed at home with rest, fluids, and zaap-yoa-kawhxor medicines. ? Serious symptoms may be treated [...] condition. ? You should (more content not included)...[facility]11-27-[facility] Evaluation + Plan note Diagnostic Tests Pending * Group A Strep by PCR 01/01/23 [facility]11-03-2023 Hospital Discharge instructions Patient Education 12/08/2022 [...] provider. Document Revised: 10/25/2020 Document Reviewed: 10/25/2020 [email or web address] Patient Education 2022 [address] Follow Up Care 12/07/2022 22:59:47 With:Cara Bullard Address: [address], [address], [address] [place] [address]- Business (1) When:12/10/2022 Comments:Few concerns about continued can take up test at home in approximately 1 week. Please follow-up with your primary care doctor next 2 to 3 days. Please return to the ED for any newor worsening symptoms. With:XXXX NONE Address: [place] When:Within 3 Day(s) [facility]11-02-2023 Evaluation + Plan noteExtracted from: Title:ED Note Author:Damaris Jean Baptiste DO Date :12/07/22 Encounter for medical screen ing examination (Z13.9: Encounter for screening, unspecified) Orders: U Beta Hcg Qual UA With Cult Reflex Urine Culture [facility]09-25-2023 Hospital Discharge instructions Patient Education 10/30/2022 11:19:02 Dental Pain, Hgbc-sl-Viqx Dental Pain Dental pain is often a [...] Follow these instructions at home: Medicines Take fwil-sen-lqeptsi and prescription medicines only as told by [...] damage to the area. Brushing your teeth [place] your teeth twice a day using a [...] only when you eat or drink. Take szuy-iwx-grmecco and prescription medicines only as told by your dentist. Watch your dental pain for any changes. Let your dentist know if symptoms get worse. This information is not intended to replace advice given to you by your health care provider. Make sure you discuss any questions you have with your health care provider. Document Revised: 10/27/2020 Document Reviewed: 10/27/2020 [employer] Patient Education 2022 [address] Follow Up Care 10/30/2022 10:44:51 With:Dental: [facility] [phone] Address:Unknown When:11/02/2022 11:12:14 With:Dental: [facility] [phone] Address:Unknown When:11/02/2022 11:12:13 With:Dental: [facility] [phone] Address:Unknown When:11/02/2022 11:12:13 [facility]07-07-2023 NoteDATE OF DISCHARGE: 08/10/2022 The patient [...] x2, otherwise without complications. Course: Without complications. Christine Rajput Dictated: 08/10/2022 [id number] Transcribed: 08/10/2022[facility] HospitalComment on above:Result Comment: Electronically Signed By: Ras Miller MD\.br\Date and Time Signed: 08/11/22 08:18 [id number] NoteThe following Patient Education Materials have been given to the patient: [facility] Evaluation + Plan note Extracted from: Title:OB Inpatient Progress Note * Au thor:Eduardo Bee MD Date:08/09/22 Impression and Plan Condition: Stable. Plan Routine care. Extracted from: Title:ANES Post-Labor Epidural Author:Ra Trevino Jr, DO Date:08/09/22 Plan Transfer/Discharge: Stable for discharge from anesthetic standpoint.. Extracted from: Title:OB Vag Delivery Procedure/L&D Summary * Au thor:STEVE NARANJO Jerry R Date:08/08/22 Impression and Plan s/p at 0411, delivered rima, nuchal cord times 2, cord clamped and cut, cord blood obtained, 3vc,placenta delivered spontaneously, no lacerations, a viable female apgars 8@1 and 9@5, wt unknown Extracted from: Title:OB Admission H&P L&D/ PreOp * Author:STEVEJerry Fields DO R Date:08/08/22 Impression and Plan iup at 37 4/7wks, active labor-iv, routine labs, iv abx dt uknown gbbs, cont efm Extracted from: Title:L&D Epidural note Author:Kellie Casas Jr., DO G Date:08/07/22 Impression and Plan Plan Labor epidural at request of patient.. [facility]07-03-2023 Hospital Discharge instructions Follow Up Care 08/07/2022 06:16:53 With:Eduardo Bee Address: [address] [place] [address] [facility] (1) When:6 weeks Comments:Call Dr if fever>100.5 F, heavy bleedingCall for any problems. [facility]06-30-2023 NoteThe following Patient Education Materials have been given to the patient: [facility]Material[facility]06-30-2023 Hospital Discharge instructions Follow Up Care 08/04/2022 10:54:12 With:Eduardo Bee Address:Unknown When:1 week Comments:Appointment has already been scheduledCall for any problems.Call for severe abdominal painCall physician if symptoms worsenReturn for contractions closer, longer, harderReturn for decreased movementReturn if ruptured membranes or vaginal bleeding [facility]12-14-2022 Evaluation + Plan noteExtracted from: Title:ED Note Author:Alek Collins DO. Date :01/18/22 N&V (nausea and vomiting) (R 11.2: Nausea with vomiting, unspecified) (Z34.90: Encounter for supervision of normal , unspecified, unspecified trimester) Orders: Lactated Ringers Injection, 1,000 mL, Soln-IV, IV, Once, Stop date 01/18/22 1:21:00 EST, STAT, Start date 01/18/22 1:21:00 EST, mL/hr, Infuse over 61, minute(s) ondansetron, 4 mg = 1 tab(s), Oral, q8hr, PRN Nausea/Vomiting, # 20 tab(s), Refills(s) 0, Pharmacy: [email or web address] #[id number], 165.1, cm, 01/18/22 1:14:00 EST, Height/Length Dosing, 74.4, kg, 01/18/22 1:14:00 EST, Weight Dosing ondansetron, 4 mg = 2 mL, Injection, IV Push, Once, Stop date 01/18/22 1:21:00 EST, STAT, Start date 01/18/22 1:21:00 EST, 01/18/22 1:21:00 EST Add on Test Basic Metabolic Panel Beta hCG Quantitative eGFR [place] [place] UA With Cult Reflex US 1st Trimester [facility]12-14-2022 Hospital Discharge instructions Patient Education 01/18/2022 [...] 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 Avoid heavy [...] disease or chickenpox. You are exposed to Yoruba measles (rubella) and have never had it. [...] 01/16/2002 Document Revised: 01/04/2018 Document Reviewed: 01/03/2017 [email or web address] Patient Education 2020 [address] Follow Up Care 01/18/2022 00:46:10 With:Ras Miller Address: [address] [phone] Business (1) When:01/21/2022 [facility]12-01-2022 Hospital Discharge instructions Patient Education 01/05/2022 [...] Treatment for this condition includes: Antibiotic medicine. Hude-edv-fxxnaen medicines to treat discomfort. Drinking enough water [...] Follow these instructions at home: Medicines Take aqzo-fyn-ecrnyfo and prescription medicines only as told by [...] 11/01/2005 Document Revised: 01/09/2019 Document Reviewed: 08/01/2018 [email or web address] Patient Education 2020 [address]. 01/05/2022 12:47:03 Nausea and Vomiting, Adult Nausea [...] water added (diluted fruit juice). Eat bland, cgsh-my-lgunsi foods in small amounts as you are able. These foods include bananas, applesauce, rice, lean meats, toast, and crackers. Avoid fluids that contain a lot of sugar or caffeine, such as energy drinks, sports drinks, and soda. Avoid alcohol. Avoid spicy or fatty foods. General instructions Take deue-itp-aokzozy and prescription medicines only as told by your health care provider. Drink enough fluid to keep your urine pale yellow. Wash your hands often using soap and water. If soap and water are not available, use hand internal grinder. Make sure that all people in your [...] eating and drinking to prevent dehydration. Take nuwb-kve-vdxnefq and prescription medicines only as told by [...] 01/22/2006 Document Revised: 05/16/2019 Document Reviewed: 07/02/2018 [email or web address] Patient Education 2020 [email or web address] Follow Up Care 01/05/2022 07:49:33 With:Ras Miller Address: [address] [address]- Business (1) When:01/08/2022 10:01:01 With:Vijay PACHECO Address: [address] [place] [address]- Business (1) When:01/08/2022 10:00:58 [facility]12-01-2022 Evaluation + Plan noteExtracted from: Title:ED Note Author:Colby Ayers PA-C te:01/05/22 Nausea and vomiting (R11.2: Nausea with vomiting, unspecified) UTI in (O23.40: Unspecified infection of urinary tract in , unspecified trimester) Orders: cephalexin, 500 mg = 1 cap(s), Oral, q12hr, X 7 day(s), # 14 cap(s), Refills(s) 0, Pharmacy: [facility] #[id number], 165, cm, 01/05/22 7:56:00 EST, Height/Length Dosing, [...] TID, # 15 tab(s), Refills(s) 0, Pharmacy: [facility] #[id number], 165, cm, 01/05/22 7:56:00 EST, Height/Length Dosing, 74.1, kg, 01/05/22 7:56:00 EST, Weight Dosing Diagnostic Tests Pending * Urine Culture 01/05/22 [facility]11-28-2022 Hospital Discharge instructions Patient Education 01/02/2022 14:19:40 Nausea and Vomiting, Adult, Moee-wx-Cqhu Nausea and Vomiting, Adult Nausea is feeling [...] fruit juice). ?Low-calorie sports drinks. Eat bland, agaz-jo-scutcv foods in small amounts as you are able, such as: ?Bananas. ?Applesauce. ?Rice. ?Low-fat (lean) meats. ?[place]. ?Crackers. Avoid drinking fluids that have a lot of sugar or caffeine in them. This includes energy drinks, sports drinks, and soda. Avoid alcohol. Avoid spicy or fatty foods. General instructions Take hksg-mmc-mpepbcc and prescription medicines only as told by your doctor. Drink enough fluid to keep your pee (urine) pale yellow. Wash your hands often with soap and water. If you cannot use soap and water, use hand internal grinder. Make sure that all people in your [...] too much water in your body. Take lfej-iwn-ikmoocw and prescription medicines only as told by [...] 07/10/2008 Document Revised: 05/16/2019 Document Reviewed: 07/02/2018 [email or web address] Patient Education 2020 [address]. 01/02/2022 14:19:40 Care Care care is health care during . It helps you and your unborn baby (fetus) stay as healthy as possible. care may be provided by a manager star, a family practice health care provider, or a childbirth and specialist (finish mixer). How does this affect me? During , [...] or procedures you have had. ?Any current wjfr-xho-kmgbrjh or prescription medicines, herbs, or supplements you [...] more information Office on Women's Health: womenshealth.gov [place] Association: americanpregnancy.org March of Dimes: marchofdimes.org Summary [...] 2004 Document Revised: 05/14/2019 Document Reviewed: 01/21/2018 [email or web address] Patient Education 2020 [address] Follow Up Care 01/02/2022 12:36:12 With:Ras Miller Address: [address], [address] [place] [address]- Business (1) When:01/05/2022 14:06:25 Comments:Follow-up with Dr. Miller for further evaluation of your . With:Holli Moctezuma Address: [address] [place] [address]- Business (1) When:01/05/2022 14:06:17 Comments:Follow-up with your primary care provider in 3 to 5 days. If symptoms worsen, do not improve, or new symptoms arise please report back to emergency department for further evaluation. [facility]11-28-2022 Evaluation + Plan noteExtracted from: Title:ED Note Author:Donavan Lawson PA-C te:01/02/22 Nausea and/or vomiting (R11. 2: Nausea with vomiting, unspecified) (Z34.90: Encounter for supervision of normal , unspecified, unspecified trimester) Orders: metoclopramide, 5 mg = 1 tab(s), Oral, q6hr, X 7 day(s), # 28 tab(s), Refills(s) 0, Pharmacy: [facility] #[id number], 165, cm, 10/16/21 20:16:00 EDT, Height/Length Dosing, [...] Lipase Level Morphology UA With Cult Reflex [facility]09-11-2022 Hospital Discharge instructions Patient Education 10/16/2021 [...] discomfort that you are feeling: Medicines Take udtz-lju-xfdauyk and prescription medicines only as told by [...] if directed by your health care provider. [place] your teeth with a soft-bristled toothbrush. General [...] pain may be mild or severe. Take otwr-rgq-hvunkgn and prescription medicines only as told by [...] 01/22/2006 Document Revised: 05/20/2019 Document Reviewed: 12/13/2017 [email or web address] Patient Education [address] 10/16/2021 21:36:36 Dental Caries, Adult Dental Caries, [...] is this prevented? To prevent dental caries: [place] your teeth every morning and night with [...] 10/14/2002 Document Revised: 01/04/2018 Document Reviewed: 08/04/2016 [email or web address] Patient Education [place]. Follow Up Care 10/16/2021 20:06:09 With:Dental: [facility] [phone] Address:Unknown When:10/19/2021 21:25:41 With:Dental: [facility] [employer] [facility] [phone] Address:Unknown When:10/19/2021 21:25:40 With:Dental: [facility] [phone] Address:Unknown When:10/19/2021 21:25:39 [facility]08-10-2022 Evaluation + Plan noteExtracted from: Title:ED Note Author:Colby Ayers PA-C te:09/14/21 Pain, dental (K08.89: Other specified disorders of teeth and supporting structures) Orders: naproxen, 500 mg = 1 tab(s), Oral, BID, # 20 tab(s), Refills(s) 0, Pharmacy: [facility]/pharmacy #[id number], 165.1, cm, 06/07/21 7:55:00 EDT, Height/Length Dosing, 83.6, kg, 06/07/21 7:55:00 EDT, Weight Dosing penicillin V potassium, 500 mg = 1 tab(s), Oral, TID, Take one tab by mouth 3 times a day. # 30, X 10 day(s), # 30 tab(s), Refills(s) 0, Pharmacy: [facility] #[id number], 165.1, cm, 06/07/21 7:55:00 EDT, Height/Length Dosing, 83.6, kg, 06/07/21 7:55:00 EDT, Weight Dosing [facility]08-10-2022 Hospital Discharge instructions Patient Education 09/14/2021 [...] discomfort that you are feeling: Medicines Take huvr-sqj-bronosr and prescription medicines only as told by [...] if directed by your health care provider. [place] your teeth with a soft-bristled toothbrush. General [...] pain may be mild or severe. Take nqge-btp-wvpfiwb and prescription medicines only as told by [...] 01/22/2006 Document Revised: 05/20/2019 Document Reviewed: 12/13/2017 [email or web address] Patient Education [place]. Follow Up Care 09/14/2021 08:05:08 With:Dental: [facility] [phone] Address:Unknown When:09/17/2021 08:10:39 With:Dental: [facility] [employer] [facility] [phone] Address:Unknown When:09/17/2021 08:10:38 With:Dental: [facility] [phone] Address:Unknown When:09/17/2021 08:10:37 [facility]05-04-2022 Evaluation + Plan noteExtracted from: Title:OB Inpatient Progress note Auth or:Ras Miller MD Date:06/08/21 Impression and Plan Plan Routine care. Course: Progressing as expected. [facility]05-03-2022 Hospital Discharge instructions Follow Up Care 06/07/2021 07:07:01 With:Dr. Miller [phone] Address:Unknown When:6 weeks Comments:Call for any problems.Call for fever > 100.5 FCall for severe abdominal painCall physician for heavy vaginal bleedinNothing in the vagina for 6 weeksCall for 6 week appt [facility]04-18-2022 Evaluation + Plan note Diagnostic Tests Pending * Group B Streptococcus colonization by PCR [facility] Diagnosis Supervision of normal intrauterine in multigravida, first trimester [facility] Diagnosis care, subsequent , first trimester- Primary 12 weeks gestation of [facility]* Diagnosis Encounter for medical examination to establish care- Primary Bipolar depression ([facility]) Bipolar I disorder, most recent episode (or current) depressed, unspecified Anxiety Anxiety state, unspecified Attention deficit hyperactivity disorder (ADHD), combined type ([facility]) PTSD (post-traumatic stress disorder) ([facility]) Posttraumatic stress disorder History of anemia Personal history of diseases of blood and blood-forming organs Screening for heart disease Screening for other and unspecified cardiovascular conditions Wheezing COVID-19 Skin lesion of left arm Unspecified disorder of skin and subcutaneous tissue [facility]* Diagnosis Anemia, unspecified type- Primary documented in [facility] noteNo assessment information availableMer[facility] Health St[facility] Work Phone: Evaluation note* Diagnosis Missed menses , unspecified gestational age Encounter for supervision of normal first in first trimester [facility]* Diagnosis Exposure to STD Need for maternal serum alpha-protein (MSAFP) screening Second trimester state, incidental 20 weeks gestation of Screening, , for anatomic survey Encounter for anatomic survey Wheezing [facility]* Diagnosis SOB (shortness of breath) Shortness of breath Follow-up exam Unspecified follow-up examination Nausea and vomiting, unspecified vomiting type [facility]* Diagnosis 24 weeks gestation of Second trimester state, incidental [facility]* Diagnosis Abnormal ultrasound- Primary [facility] Diagnosis Third trimester (HHS-HCC) state, incidental 28 weeks gestation of ([facility]-HCC) SGA (small for gestational age) ([facility]-HCC) Wutig-nih-xejnr without mention of malnutrition, unspecified (weight) documented in this encounter [facility]* Diagnosis Encounter for follow-up ultrasound of anatomy- Primary [facility] Diagnosis Right otitis media, unspecified otitis media type- Primary Third trimester ([facility]-HCC) state, incidental 30 weeks gestation of ([facility]) SGA (small for gestational age) ([facility]) Mxdsv-szi-jfvxn without mention of malnutrition, unspecified (weight) documented in this encounter [facility] Healthcare[facility]ospital course Narrative No data available for this section [facility] No data available for this section [facility] HospitalInstructionsNot on filedocumented in this encounter [facility]Not on filedocumented in this encounter [facility] SystemInstructionsNot on filedocumented in this encounter [facility] System[facility] note No data available for this section [facility] (narrative)* Consultation (Routine) - Authorized Specialty Diagnoses / Procedures Referred By Dulce hughes Referred To Contact Dermatology Diagnoses Skin lesion of left arm Procedures [place] OFFICE/OUTPATIENT NEW HIGH MDM 60 MINUTES Mak Jordan NP [address] [place] [address] Referral ID Status Reason Start Date Expiration Date Visits Requested Visits Authorized [id number] Authorized Specialty Services Required 10/16/2023 04/13/2024 1 1 * Consultation (Routine) - Pending Review Specialty Diagnoses / Procedures Referred By Dulce hughes Referred To Contact Psychiatry Diagnoses Bipolar depression ([facility]) Anxiety Attention deficit hyperactivity disorder (ADHD), combined type ([facility]) PTSD (post-traumatic stress disorder) ([facility]) Procedures [place] OFFICE/OUTPATIENT NEW HIGH MDM 60 MINUTES Mak Jordan NP [address] [place] [address] Referral ID Status Reason Start Date Expiration Date Visits Requested Visits Authorized [id number] Pending Review Specialty Services Required 10/16/2023 04/13/2024 1 1 [facility] Summary Purpose Family History Relationship Condition Age at Onset Recorded Date/T ruth father Malignant neoplasm Unknown Unknown Advance Directives Advance Directive Response Recorded Date/ Time Advance Directives No March 2:16pm Chief Complaint and Reason for Visit Chief Complaint Admit Date BH January 02, 2024 9:07am right knee pain April 01, 2024 2:16pm Additional Source Comments INFORMATION SOURCE (unrecogn ized section and content) DATE CREATED AUTHOR 11/05/2020 [facility] DATE CREATED AUTHOR AUTHOR'S ORGANIZ ATION 07/10/2023 [facility] DATE CREATED AUTHOR AUTHOR'S ORGANIZ ATION 07/12/2023 [facility] DATE CREATED AUTHOR AUTHOR'S ORGANIZ ATION 07/20/2023 [facility] DATE CREATED AUTHOR AUTHOR'S ORGANIZ ATION 07/21/2023 [facility] DATE CREATED AUTHOR AUTHOR'S ORGANIZ ATION 07/27/2023 [facility] DATE CREATED AUTHOR AUTHOR'S ORGANIZ ATION 09/08/2023 [facility] DATE CREATED AUTHOR AUTHOR'S ORGANIZ ATION 09/12/2023 [facility] DATE CREATED AUTHOR AUTHOR'S ORGANIZ ATION 09/14/2023 [facility] DATE CREATED AUTHOR AUTHOR'S ORGANIZ ATION 09/15/2023 [facility] DATE CREATED AUTHOR AUTHOR'S ORGANIZ ATION 09/21/2023 [facility] DATE CREATED AUTHOR AUTHOR'S ORGANIZ ATION 04/03/2024 [facility] DATE CREATED AUTHOR AUTHOR'S ORGANIZ ATION 07/04/2024 [facility] DATE CREATED AUTHOR AUTHOR'S ORGANIZ ATION 07/24/2024 [facility] DATE CREATED AUTHOR AUTHOR'S ORGANIZ ATION 08/06/2024 [facility] Patient Care team informatio n (unrecognized section and content) Personnel Name: NONE, XXXX Address: [facility] Name: KARI YOUNGANDREAKourtney Address: [address] [place] [address], [address] [address] Telecom: Patient Service Representative Relationship Specialty Start Date End Date Sadie Thomas MD [address] [place] [address] PCP - General Family Medicine 10/22/23 Mak Jordan NP [address] [place] [address] Nurse Practitioner Family Medicine 10/22/23 Team Status: [...] April 01, 2024 End: April 01, 2024 Patient Service Representative Relationship Specialty Start Date End Date Unallocated, [place] [address] [place] [address] PCP - General 07/19/22 Patient Service Representative Relationship Specialty Start Date End Date Unallocated, Noms Provider [address] [place] [address] PCP - General 07/19/22 Personnel Name: [facility] Name: Kourtney LEMONS Address: Address: [facility] [address], [place] [address]- Personnel Name: NONE, XXXX Address: Address: [facility] Name: Kourtney LEMONS Address: Address: [address] [place] [address]- Personnel Name: Vijay PACHECO MD Address: Address: [address] [place] [address] Personnel Name: Holli Moctezuma DO Address: Address: [address] [place] [address] [address] [place] [address]- Reason for Visit (unrecogniz ed section and content) Reason Comments Establish Care ADHD Reason Comments Amenorrhea Reason Comments Routine Visit Reason Comments ER Follow-up Reason Comments Routine Visit Goals (unrecognized section and content) Goals may [...] BE BASED ON THE PRIMARY CLINICAL RECORDS. [facility]. provides no warranty or guarantee of the accuracy or completeness of information in this document.
[2024-08-14 00:21] VITALS: BP 120/58; PULSE 80; TEMP 36.2
[2024-08-14 01:17] LABS: Glucose Urine UA NEGATIVE (NEGATIVE)
[2024-08-14 01:24] LABS: Cast Seen? NONE SEEN #/LPF (NONE SEEN); Crystals Seen? None Seen #/HPF (None Seen); Urine Culture Indicated YES-LC
[2024-08-14] MEDS: 0.9 % SODIUM CHLORIDE 1,000 ML 999 ML IV (02:05)
[2024-08-14] MEDS: ACETAMINOPHEN 300 MG/ 30 MG CODEINE TABLET 1 TAB PO (02:25)
[2024-08-14] MEDS: 0.9 % SODIUM CHLORIDE 1,000 ML 150 ML IV (03:18)
[2024-08-14 04:05] VITALS: BP 97/52; PULSE 61
--- NOTE | 2024-08-14 06:53 | US_ITS ---
[address] [address] Patient Name: JORDIN TYLER MRN: [facility]:[id number] date: 2005 Sex: F Assigned Patient Location: [facility] Current Patient Location: Accession/Order Number: [id number] Exam Date: 08/14/2024 09:18 Report Date: 08/14/2024 09:23 At the request of: DOMINGUEZ HOGAN DO Procedure: US OB cervical length CLINICAL DATA: SGA. Contractions. BIOPHYSICAL PROFILE: COMPARISON: 08/07/2024 There is a single live intrauterine gestation in breech presentation. The reported gestational age is 31 weeks 4 days.. The heart rate [id number] beats per minute. FINDINGS: TONE: 1 or more episodes of activity extension and flexion of extremity or opening and closing of the hand [Y] 2/2 GROSS BODY MOVEMENTS: 3 or more discrete body or limb movements [Y] 2/2 BREATHING MOVEMENTS: 1 or more episodes of breathing lasting at least 30 seconds [Y] 2/2 MARIA ELENA: A single deepest vertical pocket of amniotic fluid greater than 2 cm [Y] 2/2 MARIA ELENA: 17.0 cm. This is in upper normal range. Total score: 8/8 US/US OB BPP w non-stress IMPRESSION: NORMAL BIOPHYSICAL PROFILE ULTRASOUND OB PLACENTAL COMPARISON: 07/04/2024 The placenta is fundal. It is unremarkable in appearance and position. IMPRESSION: NORMAL PLACENTA ULTRASOUND OB CERVICAL LENGTH COMPARISON: 07/04/2024 The cervix was evaluated with a transvaginal probe. The cervix is closed. The estimated length is 5.1 cm. There is no evidence of previa. IMPRESSION: UNREMARKABLE CLOSED CERVIX. Impression dictated by: Tavia Roe M.D. 08/14/2024 9:23 AM Dictation Location: [place] [address] Electronically authenticated by: [id number] Y Date: 08/14/2024 09:23
--- NOTE | 2024-08-14 06:54 | US_ITS ---
[address] [address] Patient Name: JORDIN TYLER MRN: [facility]:[id number] date: 2005 Sex: F Assigned Patient Location: [facility] Current Patient Location: Accession/Order Number: [id number] Exam Date: 08/14/2024 09:18 Report Date: 08/14/2024 09:23 At the request of: DOMINGUEZ HOGAN DO Procedure: US OB cervical length CLINICAL DATA: SGA. Contractions. BIOPHYSICAL PROFILE: COMPARISON: 08/07/2024 There is a single live intrauterine gestation in breech presentation. The reported gestational age is 31 weeks 4 days.. The heart rate [id number] beats per minute. FINDINGS: TONE: 1 or more episodes of activity extension and flexion of extremity or opening and closing of the hand [Y] 2/2 GROSS BODY MOVEMENTS: 3 or more discrete body or limb movements [Y] 2/2 BREATHING MOVEMENTS: 1 or more episodes of breathing lasting at least 30 seconds [Y] 2/2 MARIA ELENA: A single deepest vertical pocket of amniotic fluid greater than 2 cm [Y] 2/2 MARIA ELENA: 17.0 cm. This is in upper normal range. Total score: 8/8 US/US OB placenta IMPRESSION: NORMAL BIOPHYSICAL PROFILE ULTRASOUND OB PLACENTAL COMPARISON: 07/04/2024 The placenta is fundal. It is unremarkable in appearance and position. IMPRESSION: NORMAL PLACENTA ULTRASOUND OB CERVICAL LENGTH COMPARISON: 07/04/2024 The cervix was evaluated with a transvaginal probe. The cervix is closed. The estimated length is 5.1 cm. There is no evidence of previa. IMPRESSION: UNREMARKABLE CLOSED CERVIX. Impression dictated by: Tavia Roe M.D. 08/14/2024 9:23 AM Dictation Location: [place] [address] Electronically authenticated by: [id number] Y Date: 08/14/2024 09:23
--- NOTE | 2024-08-14 06:54 | US_ITS ---
[address] [address] Patient Name: JORDIN TYLER MRN: [facility]:[id number] date: 2005 Sex: F Assigned Patient Location: [facility] Current Patient Location: Accession/Order Number: [id number] Exam Date: 08/14/2024 09:18 Report Date: 08/14/2024 09:23 At the request of: DOMINGUEZ HOGAN DO Procedure: US OB cervical length CLINICAL DATA: SGA. Contractions. BIOPHYSICAL PROFILE: COMPARISON: 08/07/2024 There is a single live intrauterine gestation in breech presentation. The reported gestational age is 31 weeks 4 days.. The heart rate [id number] beats per minute. FINDINGS: TONE: 1 or more episodes of activity extension and flexion of extremity or opening and closing of the hand [Y] 2/2 GROSS BODY MOVEMENTS: 3 or more discrete body or limb movements [Y] 2/2 BREATHING MOVEMENTS: 1 or more episodes of breathing lasting at least 30 seconds [Y] 2/2 MARIA ELENA: A single deepest vertical pocket of amniotic fluid greater than 2 cm [Y] 2/2 MARIA ELENA: 17.0 cm. This is in upper normal range. Total score: 8/8 US/US OB cervical length IMPRESSION: NORMAL BIOPHYSICAL PROFILE ULTRASOUND OB PLACENTAL COMPARISON: 07/04/2024 The placenta is fundal. It is unremarkable in appearance and position. IMPRESSION: NORMAL PLACENTA ULTRASOUND OB CERVICAL LENGTH COMPARISON: 07/04/2024 The cervix was evaluated with a transvaginal probe. The cervix is closed. The estimated length is 5.1 cm. There is no evidence of previa. IMPRESSION: UNREMARKABLE CLOSED CERVIX. Impression dictated by: Tavia Roe M.D. 08/14/2024 9:23 AM Dictation Location: [place] [address] Electronically authenticated by: [id number] Y Date: 08/14/2024 09:23
== END 2024-08-14 08:20 | disposition home or self-care (01) ==
PROVIDERS: Admitting Provider Obstetrics & Gynecology; Visit Provider Obstetrics & Gynecology
DX: O47.03 False labor before 37 completed weeks of gestation, third trimester (principal); Z3A.31 31 weeks gestation of pregnancy; O36.5930 Maternal care for other known or suspected poor fetal growth, third trimester, not applicable or unspecified
CPT/HCPCS: 59025; 76815; 76817; 76818; 81001; 87086; G0378; G0379

== ENCOUNTER 2024-08-18 12:05 | Outpatient (OUT) | payer MEDICAID, SELFPAY ==
--- OUTSIDE RECORDS SUMMARY | 2008-06-26 06:00 | XMS_ITS | Continuity of Care Document ---
Author Organization [facility] Address [address] [place] [address] Phone Care Team Providers Care Senior Warehouse Clerk Name Role Phone Eunice GABRIEL Mitch Unavailable Unavailable Procedures Procedure Date OFFICE/OUTPATIENT VISIT, [facility] DTAP VACCINE, < 7 YRS, IM MMR VACCINE, [place] POLIOVIRUS, IPV, SC/IM CHICKEN POX VACCINE, [place] Advance Directives Directive Yes / No Effective Date File Name No Information Encounters Encounter Description Practice Location Reason(s) For Visit Diagnoses Date Provider Providers Copied on Encounter OFFICE/OUTPATI ENT VISIT, [facility], [address] [place], [place], [id number], [place] tel:[phone] [facility] No Information Eunice Cox. [address] [place], [place], [id number], [place]. tel:[phone] Family History Family Member Type Diagnosis Age [...]
--- OUTSIDE RECORDS SUMMARY | 2024-03-20 09:00 | XMS_ITS ---
Author Organization [facility] Address [address] [facility] [place] [address] Care Team Providers Care Peoplesoft Taleo Manager Name Role Phone Soraida Sandy Primary Care Provider Brenna Turner [phone] REASON FOR VISIT FILLING Encounters Encounter Location Date Provider Diagnosis [facility] [address] [facility] [place] [address] 03/20/2024 Brenna Turner Plan Of Treatment No Information Progress Notes * ESTHER TYLEROB: 4 (19 yo F)Acc No.[id number]:03/20/2024 Patient: JOSE ROWANE Provider: Andrea Turner :2005 A ge:19 Y S ex:Female Date:03/20/2024 Address:[address] [place] [address] [id number] Pcp:Soraida Frausto Subjective: * Chief Complaints: * 1 . FILLING. * Medical History: Objective: * Vitals: Assessment: Plan: * Treatment: * Images: * Electronic signature of Eliu Turner DMD on 08/18/2024 at 12:09 PM EDT Sign off status: Pending * Provider: Andrea Turner Date: 0 03/20/2024 Generated for Cornelio edwards/Heather/eTransmitting on: 0 08/18/2024 12:09 PM EDT
--- OUTSIDE RECORDS SUMMARY | 2024-04-01 05:45 | XMS_ITS ---
Author Organization [facility] Address [address] [facility] [place] [address] Care Team Providers Care Wallpaper Printer Helper Name Role Phone Soraida Sandy Primary Care Provider Chelsi Grijalva [phone] REASON FOR VISIT PROPHY NO HYG HX SINCE 2021, GEN DECAY Encounters Encounter Location Date Provider Diagnosis [facility] [address] [place] [address] 04/01/2024 Chelsi Grijalva Plan Of Treatment No Information Progress Notes * JAYSON JOSEEDOB: 4 (19 yo F)Acc No.[id number]:04/01/2024 Patient: JORDIN ROWAN Provider: Sergio Grijalva :2005 A ge:19 Y S ex:Female Date:04/01/2024 [id number] Pcp:Soraida Frausto Subjective: * Chief Complaints: * 1 . PROPHY NO HYG HX SINCE 2021, GEN DECAY. * Medical History: Objective: * Vitals: Assessment: Plan: * Treatment: * Images: * Electronic signature of Cookie Grijalva on 08/18/2024 at 12:09 PM EDT Sign off status: Pending * Provider: Sergio Grijalva Date: 04/01/2024 Generated for Printi ng/Faxing/eTransmitting on: 0 08/18/2024 12:09 PM EDT
--- OUTSIDE RECORDS SUMMARY | 2024-07-14 07:00 | XMS_ITS ---
Author Organization [facility] es Address [address] [place] [address] Care Team Providers Care Picker / Packer Name Role Phone Soraida Sandy Primary Care Provider Dr. Carrillo Alegre [facility] [phone] REASON FOR VISIT FILLING Encounters Encounter Location Date Provider Diagnosis [facility] [address] [facility] [place] [address] 2024 Carrillo Alegre Plan Of Treatment No Information Progress Notes * JAYSON JOSEEDOB: 4 (19 yo F)Acc No.[id number]:07/14/2024 Patient: JORDIN ROWAN Provider: Andrea Alegre DDS :2005 A ge:19 Y S ex:Female Date:07/14/2024 Address:[facility] [place] [facility] Pcp:Soraida Frausto Subjective: * Chief Complaints: * 1 . FILLING. * Medical History: Objective: * Vitals: Assessment: Plan: * Treatment: * Images: * Electronic signature of Dr. Carrillo Alegre , DMD on 08/18/2024 at 12:08 PM EDT Sign off status: Pending * Provider: Andrea Alegre DDS Date: 07/14/2024 Generated for Johni ng/Fajacksong/eTransmitting on: 08/18/2024 12:08 PM EDT
--- OUTSIDE RECORDS SUMMARY | 2024-08-05 09:50 | XMS_ITS | Encounter Summary ---
Author Organization [facility] Address [address] [facility] [place] [address] Care Team Providers Care Firer Low Pressure Name Role Phone Sadie Thomas MD Primary Care Provider [phone] Katharine Olivarez NP Unavailable [phone] Reason for Visit * Reason Comments Routine Visit Encounter Details Date Type Department Care Team (Late st Contact Info) Description 08/05/2024 9:50 AM EDT Routine [facility] B[facility] OB [address] [facility] [address] Holli Roque PA [address] [place] [address] Right otitis media, unspecified otitis media type (Primary Dx); Third trimester ([facility]); 30 weeks gestation of ([facility]); SGA (small for [facility] age) ([facility] [...] often do you attend chur ch or shinto services? Never 03/15/2023 Do you belong to any clubs o r organizations such as congregation groups, unions, fraternal or athletic groups, or [...] Recorded Patient Health Questionnaire-2 Score 0 03/15/2023 [facility] - Occupational Stress [...] place to sleep or slept in a [facility] (including now)? No 03/15/2023 Education Answer Date [...] three times a day. [place] [facility], we will start her with NST/BPP this [...] PM EDT Routine [facility] BCP OB [address] [facility] [address] [address] Jerry Wilson, DO [address] [place] [address] Scheduled Orders Name Type Priority Associated Diagnoses [...] for gestational age) ([facility]) Bafey-xak-vneeh without mention of malnutrition, unspecified (weight) documented in this encounter Care Teams Firer Low Pressure Relationship Specialty Start Date End Date Sadie Thomas MD [address] [place] [address] PCP - General Family Medicine 10/22/23 Katharine Olivarez NP [address] [place] [address] Nurse Practitioner Family Medicine 10/22/23 documented as of this encounter
--- OUTSIDE RECORDS SUMMARY | 2024-08-18 12:08 | XMS_ITS | Encounter Summary ---
Author Organization [facility] Address [address] [facility] [place] [address] Care Team Providers Care Try On Baster Name Role Phone Unallocated, Noms Provider Primary Care Provi nani Sadie Thomas MD Primary Care Provider [phone] Katharine Olivarez POLICE CAPTAIN PRECINCT Unavailable [phone] Encounter Details Date Type Department Care Team (Late st Contact Info) Description 08/16/2022 Abstract [facility] OB [address] [place] [phone] Jerry Wilson DO [address] [place] [address] Social History Tobacco Use Types Packs/Day [...] Routine [facility] OB [address] [place] [phone] Jerry Wilson DO [address] [place] [address] documented as of this encounter Visit Diagnoses Not on filedocumented in this encounter Care Teams Try On Baster Relationship Specialty Start Date End Date Unallocated, Noms ProviderMD [address] [place] [address] PCP - General 07/19/22 10/21/23 Sadie Thomas MD [address] [place] [address] PCP - General Family Medicine 10/22/23 Katharine Olivarez NP [address] [place] [address] Nurse Practitioner Family Medicine 10/22/23 documented as of this encounter
--- OUTSIDE RECORDS SUMMARY | 2024-08-18 12:08 | XMS_ITS | Encounter Summary ---
Author Organization [facility] Address [address] [place] [address] Care Team Providers Care Net Sql Developer Name Role Phone Unallocated, Noms Provider Primary Care Provi nani Sadie Thomas MD Primary Care Provider [phone] Katharine Olivarez INTERSTATE BUS DRIVER Unavailable [phone] Encounter Details Date Type Department Care Team (Late st Contact Info) Description 03/15/2023 Orders Only [facility] NB OB [address] [place] [address] [phone] Unallocated, Noms Provider, [address] [place], [place] [phone] Social History Tobacco Use Types Packs/Day Years [...] often do you attend chur ch or temple services? Never 03/15/2023 Do you belong to any clubs o r organizations such as pentecostal groups, unions, fraternal or athletic groups, or [...] Recorded Patient Health Questionnaire-2 Score 0 03/15/2023 [facility] - Occupational Stress Questionnaire Answer Date [...] PM EDT Routine [facility] B[facility] OB [address] [facility] [place] [address] Jerry Wilson, DO [address] [facility] [address] [place], [place] [id number] documented as of this encounter Procedures Procedure [...] on filedocumented in this encounter Care Teams Net Sql Developer Relationship Specialty Start Date End Date Unallocated, Noms Provider, [address] [place] [address] PCP - General 07/19/22 10/21/23 Sadie Thomas MD [address] [place] [address] PCP - General Family Medicine 10/22/23 Katharine Olivarez NP [address] [place] [address] Nurse Practitioner Family Medicine 10/22/23 documented as of this encounter
--- OUTSIDE RECORDS SUMMARY | 2024-08-18 12:08 | XMS_ITS | Patient Health Record ---
Author Organization [facility] Address [address] [place] [address] Care Team Providers Care Digital Music Instructor Name Role Phone Soraida Sandy Primary Care Provider Dr. Carrillo Alegre Unavailable [phone] Juan Carlos Messina Unavailable [phone] Chelsi Grijalva Unavailable [phone] Jasmyn Perkins Unavailable [phone] Brenna Turner Unavailable [phone] Reason For Referral No Information Encounters Encounter Location Date Provider Diagnosis [facility] [address] [place] [address] 09/26/2023 Soraida Frausto [facility] [address] [place] [address] 09/18/2023 Carrillo Alegre Dental caries on pit and fissure surface penetrating into dentin K02.52 ; Cracked tooth K03.81 ; Encounter for dental examination and cleaning with abnormal findings Z01.21 ; Other dental procedure status Z98.818 and Acute gingivitis, plaque induced K05.00 [facility] [address] [place] [address] 11/19/2023 Brenna Turner Dental caries on pit and fissure surface penetrating into dentin K02.52 [facility] [place] [address] 01/14/2024 Brenna Turner Dental caries on pit and fissure surface penetrating into dentin K02.52 Assessments Encounter Date Diagnosis (ICD Code) Assessment [...] T ADVANTAGE -termed 22 [address] [place] [address] [id number] JORDIN TYLER Self - patient is the insured 2 3 zMEDICAID CFC after PARAMOUNT -termed 22 [address] [place] [address] [id number] JORDIN TYLER Self - patient is the insured 2 3 zDENTAL DQ PARAMOUNT -termed 22 [address] [place] [address] [id number] JORDIN TYLER Self - patient is the insured 2 3 zDental MEDICAID CFC after PARAMOUNT -termed 22 [address] [place] [address] [id number] JORDIN TYLER Self - patient is the insured 2 3 Dental [place] DQ [address] [place] [address] [id number] JORDIN TYLER Self - patient is the insured 4 Dental Wrap CFC [place] BCBS [address] [place] [address] [id number] JORDIN TYLER Self - patient is the insured 4
--- OUTSIDE RECORDS SUMMARY | 2024-08-18 12:09 | XMS_ITS | Encounter Summary ---
Author Organization [facility] Address [address] [place] [address] Care Team Providers Care Strategic Account Director Name Role Phone Sadie Thomas MD Primary Care Provider Katharine Olivarez NP Unavailable Encounter Details Date Type Department Care Team (Late st Contact Info) Description 08/14/2024 Clinisync Result Encounter [facility] External Department Unsolicited Dominguez Wilson, [address] [place] [address] Social History Tobacco Use Types Packs/Day Years [...] often do you attend chur ch or faith services? Never 03/15/2023 Do you belong to [...] 0 03/15/2023 [facility] - Occupational [...] PM EDT Routine [facility] BCP OB [address] [place] [phone] Dominguez Wilson, DO [address] [place] [address] documented as of this encounter Procedures Procedure Name Priority Date/Time Associated Diagnosis Comments US OB CERVICAL LENGTH 08/14/2024 9:23 AM EDT documented in this encounter Results * US OB CERVICAL LENGTH (08/14/2024 9:23 AM EDT) Anatomical Region Laterality Modality Other 08/14/2024 9:23 AM EDT Narrative 08/14/2024 9:26 AM EDT The [address] [address] Ultrasound Report Signed Patient: JORDIN KIDD MR#: [id number] : 2005 Acct:[id number] Age/Sex: 19 / F ADM Date: Loc: [facility] 250-[address]: Dominguez Wilson D.O. Ordering Physician: Dominguez Wilson D.O. Date of Service: 08/14/24 Procedure(s): US OB cervical length Accession Number(s): [id number] cc: Dominguez Wilson D.O.; Physician,Non-Staff [place] [address] Patient Name: JORDIN KIDD MRN: [id number] date: 2005 Sex: F Assigned Patient Location: [facility] Current Patient Location: Accession/Order Number: [id number] Exam Date: 08/14/2024 09:18 Report Date: 08/14/2024 09:23 At the request of: DOMINGUEZ WILSNO DO Procedure: US OB cervical length CLINICAL DATA: SGA. Contractions. BIOPHYSICAL PROFILE: COMPARISON: 08/07/2024 There is a single live intrauterine gestation in breech presentation. The reported gestational age is 31 weeks 4 days.. The heart rate [id number] beats per minute. FINDINGS: TONE: 1 or more episodes of activity extension and flexion of extremity or opening and closing of the hand [Y] 2/2 GROSS BODY MOVEMENTS: 3 or more discrete body or limb movements [Y] 2/2 BREATHING MOVEMENTS: 1 or more episodes of breathing lasting at least 30 seconds [Y] 2/2 MARIA ELENA: A single deepest vertical pocket of amniotic fluid greater than 2 cm [Y] 2/2 MARIA ELENA: 17.0 cm. This is in upper normal range. Total score: 8/8 US/US OB cervical length IMPRESSION: NORMAL BIOPHYSICAL PROFILE ULTRASOUND OB PLACENTAL COMPARISON: 07/04/2024 The placenta is fundal. It is unremarkable in appearance and position. IMPRESSION: NORMAL PLACENTA ULTRASOUND OB CERVICAL LENGTH COMPARISON: 07/04/2024 The cervix was evaluated with a transvaginal probe. The cervix is closed. The estimated length is 5.1 cm. There is no evidence of previa. IMPRESSION: UNREMARKABLE CLOSED CERVIX. Impression dictated by: Tavia Roe M.D. 08/14/2024 9:23 AM Dictation Location: [place] [address] Electronically authenticated by: [id number] Y Date: 08/14/2024 09:23 Dictated By: Tavia Roe M.D. Signed By: 08/14/24925 DD/ 2 TD/TT: Technology Integration Specialist: Procedure Note Radiology, Radiologist, MD - 08/14/2024 [place] [address] Ultrasound Report Signed Patient: JORDIN KIDD [facility]#: [id number] : 2005Acct:[id number] Age/Sex: 19 / FADM Date: Loc: [facility] 250-[address]: Dominguez Wilson D.O. Ordering Physician: Dominguez Wilson D.O. Date of Service: 08/14/24 Procedure(s): US OB cervical length Accession Number(s): [id number] cc: Dominguez Wilson D.O.; Physician,Non-Staff [place] [id number] Patient Name: JORDIN KIDD MRN: [id number] date: 2005 Sex: F Assigned Patient Location: [facility] Current Patient Location: Accession/Order Number: [id number] Exam Date: 08/14/2024 09:18 Report Date: 08/14/2024 09:23 At the request of: DOMINGUEZ WILSON DO Procedure: US OB cervical length CLINICAL DATA: SGA. Contractions. BIOPHYSICAL PROFILE: COMPARISON: 08/07/2024 There is a single live intrauterine gestation in breech presentation. The reported gestational age is 31 weeks 4 days.. The heart rate [id number] beats per minute. FINDINGS: TONE: 1 or more episodes of activity extension and flexion of extremity or opening and closing of the hand [Y] 2/2 GROSS BODY MOVEMENTS: 3 or more discrete body or limb movements [Y] 2/2 BREATHING MOVEMENTS: 1 or more episodes of breathing lastingat least 30 seconds [Y] 2/2 MARIA ELENA: A single deepest vertical pocket of amniotic fluid greater than 2 cm [Y] 2/2 MARIA ELENA: 17.0 cm. This is in upper normal range. Total score: 8/8 US/US OB cervical length IMPRESSION: NORMAL BIOPHYSICAL PROFILE ULTRASOUND OB PLACENTAL COMPARISON: 07/04/2024 The placenta is fundal. It is unremarkable in appearance and position. IMPRESSION: NORMAL PLACENTA ULTRASOUND OB CERVICAL LENGTH COMPARISON: 07/04/2024 The cervix was evaluated with a transvaginal probe. The cervix is closed. The estimated length is 5.1 cm. There is no evidence of previa. IMPRESSION: UNREMARKABLE CLOSED CERVIX. Impression dictated by: Tavia Roe M.D. 08/14/2024 9:23 AM Dictation Location: [place] [address] Electronically authenticated by: [id number] Y Date: 9:23 Dictated By: Tavia Roe M.D. Signed By:08/14/24925 DD/ 2 TD/TT: Technology Integration Specialist: us Dominguez Steve DO [facility] Final Result documented in this encounter Visit Diagnoses Not on filedocumented in this encounter Care Teams Strategic Account Director Relationship Specialty Start Date End Date Sadie Thomas MD [address] [place] [address] PCP - General Family Medicine 10/22/23 Katharine Olivarez NP [address] [place] [address] Nurse Practitioner Family Medicine 10/22/23 documented as of this encounter
--- OUTSIDE RECORDS SUMMARY | 2024-08-18 12:09 | XMS_ITS | Encounter Summary ---
Author Organization [facility] Address [address] [place] [address] Care Team Providers Care Duty Engineer Name Role Phone Sadie Thomas MD Primary Care Provider [phone] Katharine Olivarez NP Unavailable [phone] Encounter Details Date Type Department Care Team (Late st Contact Info) Description 08/05/2024 Bamboo flowsheet [facility] [address] [place] [address] Holli Roque PA [address] [place], [place] [id number] Social History Tobacco Use Types Packs/Day Years [...] any clubs o r organizations such as pentecostalism groups, unions, fraternal or athletic groups, or [...] Recorded Patient Health Questionnaire-2 Score 0 03/15/2023 [facility] - Occupational Stress Questionnaire [...] PM EDT Routine [facility] [address] [place] [address] Jerry Wilson, DO [address] [place] [place], [place] [id number] documented as of this encounter Visit Diagnoses Not on filedocumented in this encounter Care Teams Duty Engineer Relationship Specialty Start Date End Date Sadie Thomas MD [address] [place] [address] PCP - General Family Medicine 10/22/23 Katharine Olivarez NP [address] [place] [address] Nurse Practitioner Family Medicine 10/22/23 documented as of this encounter
--- OUTSIDE RECORDS SUMMARY | 2024-08-18 12:09 | XMS_ITS | Encounter Summary ---
Author Organization [facility] Address [address] [place] [address] Care Team Providers Care Hard Metals Engraver Hand Name Role Phone Sadie Thomas MD Primary Care Provider [phone] Katharine Olivarez NP Unavailable [phone] Encounter Details Date Type Department Care Team (Late st Contact Info) Description 08/14/2024 Clinisync Result Encounter [facility] External Department Unsolicited Jerry Wilson, [address] [facility] [address] [facility] [place] [address] Social History Tobacco Use Types Packs/Day Years [...] often do you attend chur ch or restorationist services? Never 03/15/2023 Do you belong to any clubs o r organizations such as islam groups, unions, fraternal or athletic groups, or [...] PM EDT Routine [facility] [address] [place] [address] Jerry Wilson, DO [address] [facility] [place], [place] [id number] documented as of this encounter Procedures Procedure Name Priority Date/Time Associated Diagnosis Comments TBH URINE MICROSCOPIC ONLY Routine 08/14/2024 1:00 AM EDT TBH UA (CLEAN/CATCH) STONEMASON SUPERVISOR/MICRO IF IND. Routine 08/14/2024 1:00 AM EDT documented in this encounter Results * (ABNORMAL) [facility] URINE MICROSCOPIC ONLY (08/14/2024 1:00 AM EDT) TB WBC 2-5(A) NONE SEEN #/HPF TBH TBH RBC NONE SEEN 0 - 2 #/HPF TBH BACTERIA URINE SMALL(A) NONE SEEN #/HPF TBH MUCUS URINE TRACE(A) NONE SEEN TBH SQUAMOUS EPITHELIAL CELL URINE FEW(A) NONE/RARE #/LPF TBH TRANSITIONAL EPI CELLS URINE RARE(A) NONE SEEN #/LPF TBH CRYSTALS SEEN? None Seen None Seen #/HPF TBH CAST SEEN? NONE SEEN NONE SEEN #/LPF TBH URINE CULTURE INDICATED YES-LC TBH 08/14/2024 1:00 AM EDT 08/14/2024 1:15 AM EDT Narrative CLINIS[facility] - 08/14/2024 1:24 AM EDT us Jerry Steve DO CLIN[facility] Final Result Performing Organization Address City/[facility] Co de Phone Number CLINIS[facility]NC TB[facility] * (ABNORMAL) TBH UA (CLEAN/CATCH) STONEMASON SUPERVISOR/MICRO IF IND. (08/14/2024 1:00 AM EDT) COLOR URINE YELLOW YELLOW TBH CLARITY URINE CLEAR CLEAR TBH SPECIFIC GRAVITY URINE 1.025 1.005 - 1.025 TBH PH URINE 6.5 5.0 - 9.0 TBH PROTEIN URINE TRACE NEG/TRACE mg/dL TBH GLUCOSE URINE UA NEGATIVE NEGATIVE mg/dL TBH BILIRUBIN URINE NEGATIVE NEGATIVE TBH KETONES URINE TRACE(A) NEGATIVE mg/dL TBH BLOOD URINE NEGATIVE NEGATIVE TBH NITRITE URINE NEGATIVE NEGATIVE TBH UROBILINOGEN URINE 1.0 0.2 - 1.0 EU/dL TBH LEUKOCYTE ESTERASE URINE TRACE(A) NEGATIVE TBH URINE MICROSCOPIC INDICATED YES TBH 08/14/2024 1:00 AM EDT 08/14/2024 1:15 AM EDT Narrative CLINIS[facility]NC - 08/14/2024 1:24 AM EDT us Jerry Steve DO CLIN[facility] Final Result [facility]IN[facility] TBH documented in this encounter Visit Diagnoses Not on filedocumented in this encounter Care Teams Hard Metals Engraver Hand Relationship Specialty Start Date End Date Sadie Thomas MD [address] [place] [address] PCP - General Family Medicine 10/22/23 Katharine Olivarez NP [address] [place] [address] Nurse Practitioner Family Medicine 10/22/23 documented as of this encounter
--- OUTSIDE RECORDS SUMMARY | 2024-08-18 12:09 | XMS_ITS | Encounter Summary ---
Author Organization [facility] Address [address] [place] [address] Care Team Providers Care Political Director Name Role Phone Sadie Thomas MD Primary Care Provider [phone] Katharine Olivarez NP Unavailable [phone] Encounter Details Date Type Department Care Team (Late st Contact Info) Description 08/07/2024 Clinisync Result Encounter [facility] External Department Unsolicited Holli Schulte PA [address] [place] [address] [place] [address] Social History Tobacco Use Types Packs/Day Years [...] often do you attend chur ch or adventist services? Never 03/15/2023 Do you belong to any clubs o r organizations such as muslim groups, unions, fraternal or athletic groups, or [...] Recorded Patient Health Questionnaire-2 Score 0 03/15/2023 [facility] - Occupational Stress Questionnaire Answer [...] place to sleep or slept in a half-way (including now)? No 03/15/2023 Education Answer Date [...] OB [address] [place] [address] Jerry Wilson, DO [address] [place] [address] [place] [address] documented as of this encounter Procedures Procedure Name Priority Date/Time Associated Diagnosis Comments US OB BPP W NON-STRESS 08/07/2024 7:26 PM EDT documented in this encounter Results * US OB BPP W NON-STRESS (08/07/2024 7:26 PM EDT) Anatomical Region Laterality Modality Other 08/07/2024 7:26 PM EDT Narrative 08/07/2024 7:29 [place] [address] Ultrasound Report Signed Patient: JORDIN KIDD MR#: [id number] : 2005 Acct:[id number] Age/Sex: 19 / F ADM Date: 08/07/24 Loc: US Attending Dr: Holli Schulte Ordering Physician: Holli Schulte Date of Service: 08/07/24 Procedure(s): US OB BPP w non-stress Accession Number(s): [id number] cc: Holli Schulte; Physician,Non-Staff M.[place] [address] Patient Name: JORDIN KIDD MRN: [facility]:[id number] date: 2005 Sex: F Assigned Patient Location: [facility] Current Patient Location: Accession/Order Number: [id number] Exam Date: 08/07/2024 19:26 Report Date: 08/07/2024 [...] Castaneda M.D. 08/07/2024 7:26 PM Dictation Location: [place] [address] Electronically authenticated by: [id number] Y Date: 08/07/2024 19:26 Dictated By: Vijay Castaneda D.O. Signed By: 08/07/241928 DD/ 25 TD/TT: Medical Office Technician: Procedure Note Radiology, Radiologist, MD - 08/07/2024 The [place] [id number] Ultrasound Report Signed Patient: JORDIN KIDD [facility]#: [id number] : 2005Acct:[id number] Age/Sex: 19 / FADM Date: 08/07/24 Loc: US Attending Dr: Holli Schulte Ordering Physician: Holli Schulte Date of Service: 08/07/24 Procedure(s): US OB BPP w non-stress Accession Number(s): [id number] cc: Holli Schulte; Physician,Non-Staff M.DFarzad [place] [id number] Patient Name: JORDIN KIDD MRN: [id number] date: 2005 Sex: F Assigned Patient Location: [facility] Current Patient Location: Accession/Order Number: [id number] Exam Date: 08/07/2024 19:26 Report Date: 08/07/2024 [...] Castaneda M.D. 08/07/2024 7:26 PM Dictation Location: [place] [address] Electronically authenticated by: [id number] Y Date: 9:26 Dictated By: Vijay Castaneda D.O. Signed By:08/07/241928 DD/ 25 TD/TT: Medical Office Technician: us [facility] Final Result documented in this encounter Visit Diagnoses Not on filedocumented in this encounter Care Teams Political Director Relationship Specialty Start Date End Date Sadie Thomas MD [address] [place] [address] PCP - General Family Medicine 10/22/23 Katharine Olivarez NP [address] [place] [address] Nurse Practitioner Family Medicine 10/22/23 documented as of this encounter
--- OUTSIDE RECORDS SUMMARY | 2024-08-18 12:09 | XMS_ITS | Clinical Summary ---
Author Organization [facility] Address [address] [place] [address] Care Team Providers Care Lead Pharmacy Technician Name Role Phone Sadie Thomas MD Primary Care Provider [phone] Katharine Olivarez NP Unavailable [phone] Allergies Active Allergy Reactions Criticality Noted Date Comments Amoxicillin 06/24/2024 Medications Vit-Fe Fumarate-FA ( Vitamins) 28-0.8 MG tabletIndication s:Missed menses, , unspecified gestational age ([facility]),Encoun ter for supervision of normal first in first trimester ([facility]) Take 1 tablet by mouth Daily 30 tablet 11 5 05/10/19 26 Active cephalexin (Keflex) 500 MG capsuleIndicatio ns:Right otitis media, unspecified otitis media type Take 1 capsule (500 mg) by mouth in the morning and 1 capsule (500 mg) before bedtime. Do all this for 10 days. 20 capsule 5 08/16/19 25 Active Problems Estimated Date of Delivery Comme nts Yes 10/12/2024 Based on Ultraso und, FHR- 135 No known active problems Encounters Date Type Department Care Team Description 08/14/2024 Clinisync Result Encounter [facility] External Department Unsolicited Dominguez Wilson, DO 08/14/2024 Clinisync Result Encounter [facility] External Department Unsolicited Dominguez Wilson, DO 08/14/2024 Clinisync Result Encounter [facility] External Department Unsolicited Dominguez Wilson, DO 08/14/2024 Clinisync Result Encounter [facility] External Department Unsolicited Dominguez Wilson, DO 08/07/2024 Clinisync Result Encounter [facility] External Department Unsolicited Holli Roque PA 08/05/2024 9:50 AM EDT Routine [facility] [address] [facility] [place] [address] Holli Roque PA Right otitis media, unspecified otitis media type (Primary Dx); Third trimester ([facility]); 30 weeks gestation of ([facility]); SGA (small for gestational age) ([facility]) 08/05/2024 Bamboo flowsheet [facility] [address] [facility] [place] [address] Holli Roque PA 07/23/2024 Abstract [facility] [address] [place] [address] Dominguez Wilson, DO 07/22/2024 1:20 PM EDT Routine [facility] [address] [facility] [place] [address] Dmoinguez Wilson, Third trimester ([facility]); 28 weeks gestation of ([facility]); SGA (small for gestational age) ([facility]) 07/22/2024 Bamboo flowsheet [facility] [address] [facility] [place] [address] Dominguez Wilson, 07/04/2024 Clinisync Result Encounter [facility] External Department Unsolicited Dominguez Wilson, DO 06/24/2024 1:50 PM EDT Routine [facility] [address] [place] [address] Dominguez Wilson, DO 24 weeks gestation of ([facility]); Second trimester ([facility]) 06/24/2024 Bamboo flowsheet [facility] [address] [place] [address] Dominguez Wilson, 06/19/2024 Abstract [facility] [address] [place] [address] Saadia Heck LPN 06/19/2024 Patient Outreach [facility] [address] [place] [phone] Holli Avilez LPN 06/18/[address] [address] [place] [address] Blossom Wills MA 06/09/2024 10:50 AM EDT Office Visit [facility] [address] [place] [address] Dominguez Wilson DO SOB (shortness of breath); Follow-up exam; Nausea and vomiting, unspecified vomiting type 06/09/[address] [facility] [address] [place] [address] Holli Roque PA 06/09/2024 Bamboo flowsheet [facility] [address] [place] [address] Dominguez Wilson, 06/06/[address] [facility] [address] [place] [address] Dominguez Wilson, 06/05/[address] [facility] [address] [place] [address] Tamy Juarez MA 06/04/20[address] Abstract [facility] [address] [place] [address] Dominguez Wilson DO 06/04/2024 Clinisync Result Encounter [facility] External Department Unsolicited Dominguez Wilson DO 06/02/[address] [facility] [address] [place] [address] Tamy Juarez MA 05/30/2024 Results Follow-Up [facility] [address] [place] [address] Fabiola Callahan, ALBINO SGA (small for gestational age) ([facility]) 05/30/2024 Telephone [facility] [address] [place] [phone] Fabiola Callahan LPN 05/27/2024 Abstract [facility] [address] [place] [phone] Dominguez Wilson, 05/27/2024 Clinisync Result Encounter [facility] External Department Unsolicited Dominguez Wilson, DO 05/27/2024 Clinisync Result Encounter [facility] External Department Unsolicited Dominguez Wilson, DO 05/22/2024 11:00 AM EDT Routine [facility] [address] [place] [phone] Dominguez Wilson DO Exposure to STD; Need for maternal serum alpha-protein (MSAFP) screening ([facility]); Second trimester ([facility]); 20 weeks gestation of ([facility]); Screening, , for anatomic survey ([facility]); Wheezing 05/22/2024 External Result Encounter [facility] External Department Unsolicited Dominugez Wilson, DO 05/22/2024 Bamboo flowsheet [facility] [address] [place] [phone] Dominguez Wilson, DO 05/19/20[address] Abstract [facility] [address] [place] [phone] Dominguez Wilson DO from Last 3 Months [...] often do you attend chur ch or mandaen services? Never 03/15/2023 Do you belong to any clubs o r organizations such as hoahaoism groups, unions, fraternal or athletic groups, or [...] Patient Health Questionnaire-2 Score 0 03/15/2023 [facility] [place] of Occupat ional Health - Occupational Stress [...] EDT Routine [facility] [address] [facility] [phone] Dominguez Wilson, DO [address] [facility] [place] [address] Health Maintenance Due Date Last Done Comments Influenza Vaccine (#1) 2024 Procedures Procedure Name Priority Date/Time Associated Diagnosis Comments US OB BPP W NON-STRESS 08/14/2024 9:23 AM EDT US OB CERVICAL LENGTH 08/14/2024 9:23 AM EDT US OB PLACENTA 08/14/2024 9:23 AM EDT [facility] URINE MICROSCOPIC ONLY Routine 08/14/2024 1:00 AM EDT [facility] UA (CLEAN/CATCH) CREDENTIALER/MICRO IF IND. Routine 08/14/2024 1:00 AM EDT US OB BPP W NON-STRESS 08/07/2024 7:26 PM EDT POCT URINALYSIS DIPSTICK Routine 07/22/2024 1:34 PM EDT Third trimester ([facility] ALL CBC WITH AUTO DIFF Routine 07/04/2024 9:50 AM EDT GLUCOSE 1 HOUR Routine 07/04/2024 9:50 AM EDT US OB GROWTH 07/04/2024 9:47 AM EDT POCT URINALYSIS DIPSTICK Routine 06/24/2024 1:55 PM EDT 24 weeks gestation of ([facility]) Second trimester ([facility]) [facility] LIPASE Routine 06/04/2024 4:08 AM EDT ALL AMYLASE Routine 06/04/2024 4:08 AM EDT [facility] CMP (CMP) (FOR REMOTE [facility] USE) Routine 06/04/2024 4:08 AM EDT ALL CBC WITH AUTO DIFF Routine 06/04/2024 4:08 AM EDT TB[facility] URINE MICROSCOPIC ONLY Routine 06/04/2024 3:05 AM EDT TB[facility] UA (CLEAN/CATCH) CREDENTIALER/MICRO IF IND. Routine 06/04/2024 3:05 AM EDT US OB ANATOMY 05/27/2024 3:59 PM EDT US OB CERVICAL LENGTH 05/27/2024 3:54 PM EDT RECURRENT VAGINITIS (HTRX) Routine 05/22/2024 1:28 PM EDT POCT URINALYSIS DIPSTICK Routine 05/22/2024 11:39 AM EDT Second trimester ([facility]) from Last 3 Months Results * US OB PLACENTA (08/14/2024 9:23 AM EDT) Anatomical Region Laterality Modality Other 08/14/2024 9:23 AM EDT Narrative 08/14/2024 9:26 AM EDT The [address] [address] Ultrasound Report Signed Patient: KARLA TYLER MR#: [id number] : 2005 Acct:[id number] Age/Sex: 19 / F ADM Date: Loc: [facility] 250-[address]: Dominguez Wilson D.O. Ordering Physician: Dominguez Wilson D.O. Date of Service: 08/14/24 Procedure(s): US OB placenta Accession Number(s): [id number] cc: Dominguez Wilson D.O.; Physician,Non-Staff M.DFarzad [place] [id number] Patient Name: KARLA TYLER MRN: [facility]:[id number] date: 2005 Sex: F Assigned Patient Location: [facility] Current Patient Location: Accession/Order Number: [id number] Exam Date: 08/14/2024 09:18 Report Date: 08/14/2024 09:23 At the request of: DOMINGUEZ WILSON DO Procedure: US OB cervical length CLINICAL DATA: SGA. Contractions. BIOPHYSICAL PROFILE: COMPARISON: 08/07/2024 There is a single live intrauterine gestation in breech presentation. The reported gestational age is 31 weeks 4 days.. The heart rate beats per minute. FINDINGS: TONE: 1 or [...] normal range. Total score: 8/8 US/US OB placenta IMPRESSION: NORMAL BIOPHYSICAL PROFILE ULTRASOUND OB PLACENTAL [...] Roe M.D. 08/14/2024 9:23 AM Dictation Location: [place] [address] Electronically authenticated by: [id number] Y Date: 08/14/2024 09:23 Dictated By: Tavia Roe M.D. Signed By: 08/14/24925 DD/ 2 TD/TT: Golf Course Equipment Operator: Procedure Note Radiology, Radiologist, MD - 08/14/2024 [place] [address] Ultrasound Report Signed Patient: KARLA TYLER AMR#: [id number] : 2005Acct:[id number] Age/Sex: FADM Date: Loc: [facility] 250-[address]: Dominguez Wilson D.O. Ordering Physician: Dominguez Wilson D.O. Date of Service: 08/14/24 Procedure(s): US OB placenta Accession Number(s): [id number] cc: Dominguez Wilson D.O.; Physician,Non-Staff Christine The [place] [address] Patient Name: KARLA TYLER MRN: [facility]:[id number] date: 2005 Sex: F Assigned Patient Location: [facility] Current Patient Location: Accession/Order Number: [id number] Exam Date: 08/14/2024 09:18 Report Date: 08/14/2024 09:23 At the request of: DOMINGUEZ WILSON DO Procedure: US OB cervical length CLINICAL DATA: SGA. Contractions. BIOPHYSICAL PROFILE: COMPARISON: 08/07/2024 There is a single live intrauterine gestation in breech presentation. The reported gestational age is 31 weeks 4 days.. The heart rate [id number] beats per minute. FINDINGS: TONE: 1 or [...] normal range. Total score: 8/8 US/US OB placenta IMPRESSION: NORMAL BIOPHYSICAL PROFILE ULTRASOUND OB PLACENTAL [...] Roe M.D. 08/14/2024 9:23 AM Dictation Location: [place] [address] Electronically authenticated by: [id number] Y Date: :23 Dictated By: Tavia Roe M.D. Signed By:08/14/24925 DD/ 2 TD/TT: Golf Course Equipment Operator: us Dominguez Wilson DO [facility] IMAGING Final Result * US OB BPP W NON-STRESS (08/14/2024 9:23 AM EDT) Only the most recent of2 resultswithin the time period is included. Anatomical Region Laterality Modality Other 08/14/2024 9:23 AM EDT Narrative 08/14/2024 9:26 [place] [address] Ultrasound Report Signed Patient: KARLA TYLER MR#: [id number] : 2005 Acct:[id number] Age/Sex: 19 / F ADM Date: Loc: [facility] 250- Attending Dr: Dominguez Wilson D.O. Ordering Physician: Dominguez Wilson D.O. Date of Service: 08/14/24 Procedure(s): US OB BPP w non-stress Accession Number(s): [id number] cc: Dominguez Wilson D.O.; Physician,Non-Staff Christine The [address] [address] Patient Name: KARLA TYLER MRN: [facility]:[id number] date: 2005 Sex: F Assigned Patient Location: [facility] Current Patient Location: Accession/Order Number: [id number] Exam Date: 08/14/2024 09:18 Report Date: 08/14/2024 09:23 At the request of: DOMINGUEZ WILSON DO Procedure: US OB cervical length CLINICAL DATA: SGA. Contractions. BIOPHYSICAL PROFILE: COMPARISON: 08/07/2024 There is a single live intrauterine gestation in breech presentation. The reported gestational age is 31 weeks 4 days.. The heart rate [id number] beats per minute. FINDINGS: TONE: 1 or [...] normal range. Total score: 8/8 US/US OB BPP w non-stress IMPRESSION: NORMAL BIOPHYSICAL PROFILE ULTRASOUND OB PLACENTAL [...] Roe M.D. 08/14/2024 9:23 AM Dictation Location: [place] [address] Electronically authenticated by: [id number] Y Date: 08/14/2024 09:23 Dictated By: Tavia Roe M.D. Signed By: 08/14/24925 DD/ 2 TD/TT: Golf Course Equipment Operator: Procedure Note Radiology, Radiologist, - 08/14/[address] [address] Ultrasound Report Signed Patient: KARLA TYLER AMR#: [id number] : 2005Acct:[id number] Age/Sex: 19 / FADM Date: Loc: [facility] 250-[address]: Dominguez Wilson D.O. Ordering Physician: Dominguez Wilson D.O. Date of Service: 08/14/24 Procedure(s): US OB BPP w non-stress Accession Number(s): [id number] cc: Dominguez Wilson D.O.; Physician,Non-Staff M.DFarzad [place] [address] Patient Name: KARLA TYLER MRN: [facility]:[id number] date: 2005 Sex: F Assigned Patient Location: [facility] Current Patient Location: Accession/Order Number: [id number] Exam Date: 08/14/2024 09:18 Report Date: 08/14/2024 09:23 At the request of: DOMINGUEZ WILSON DO Procedure: US OB cervical length CLINICAL DATA: SGA. Contractions. BIOPHYSICAL PROFILE: COMPARISON: 08/07/2024 There is a single live intrauterine gestation in breech presentation. The reported gestational age is 31 weeks 4 days.. The heart rate [id number] beats per minute. FINDINGS: TONE: 1 or [...] normal range. Total score: 8/8 US/US OB BPP w non-stress IMPRESSION: NORMAL BIOPHYSICAL PROFILE ULTRASOUND OB PLACENTAL [...] Roe M.D. 08/14/2024 9:23 AM Dictation Location: [place] [address] Electronically authenticated by: [id number] Y Date: 9:23 Dictated By: Tavia Roe M.D. Signed By:08/14/24925 DD/ 2 TD/TT: Golf Course Equipment Operator: us Dominguez Wilson DO [facility]AG[facility] Final Result * US OB CERVICAL LENGTH (08/14/2024 9:23 AM EDT) Only the most recent of2 resultswithin the time period is included. Anatomical Region Laterality Modality Other 08/14/2024 9:23 AM EDT Narrative 08/14/2024 9:26 [place] [address] Ultrasound Report Signed Patient: KARLA TYLER MR#: [id number] : 2005 Acct:[id number] Age/Sex: 19 / F ADM Date: Loc: [facility] Attending Dr: Dominguez Wilson D.O. Ordering Physician: Dominguez Wilson D.O. Date of Service: 08/14/24 Procedure(s): US OB cervical length Accession Number(s): [id number] cc: Dominguez Wilson D.O.; Physician,Non-Staff Christine The [place] [id number] Patient Name: KARLA TYLER MRN: [facility]:[id number] date: 2005 Sex: F Assigned Patient Location: [facility] Current Patient Location: Accession/Order Number: [id number] Exam Date: 08/14/2024 09:18 Report Date: 08/14/2024 09:23 At the request of: DOMINGUEZ WILSON DO Procedure: US OB cervical length CLINICAL DATA: SGA. Contractions. BIOPHYSICAL PROFILE: COMPARISON: 08/07/2024 There is a single live intrauterine gestation in breech presentation. The reported gestational age is 31 weeks 4 days.. The heart rate [id number] beats per minute. FINDINGS: TONE: 1 or [...] Roe M.D. 08/14/2024 9:23 AM Dictation Location: [place] [address] Electronically authenticated by: [id number] Y Date: 08/14/2024 09:23 Dictated By: Tavia Roe M.D. Signed By: 08/14/24925 DD/ 2 TD/TT: Golf Course Equipment Operator: Procedure Note Radiology, Radiologist, - 08/14/2024 [place] [address] Ultrasound Report Signed Patient: KARLA TYLER AMR#: [id number] : 2005Acct:[id number] Age/Sex: 19 / FADM Date: Loc: [facility] 250-[address]: Dominguez Wilson D.O. Ordering Physician: Dominguez Wilson D.O. Date of Service: 08/14/24 Procedure(s): US OB cervical length Accession Number(s): [id number] cc: Dominguez Wilson D.O.; Physician,Non-Staff Christine [address] [address] Patient Name: KARLA TYLER MRN: [facility]:[id number] date: 2005 Sex: F Assigned Patient Location: [facility] Current Patient Location: Accession/Order Number: [id number] Exam Date: 08/14/2024 09:18 Report Date: 08/14/2024 09:23 At the request of: DOMINGUEZ WILSON DO Procedure: US OB cervical length CLINICAL DATA: SGA. Contractions. BIOPHYSICAL PROFILE: COMPARISON: 08/07/2024 There is a single live intrauterine gestation in breech presentation. The reported gestational age is 31 weeks 4 days.. The heart rate beats per minute. FINDINGS: TONE: 1 or [...] Roe M.D. 08/14/2024 9:23 AM Dictation Location: [place] [address] Electronically authenticated by: [id number] Y Date: 9:23 Dictated By: Tavia Roe M.D. Signed By:08/14/24925 DD/ 2 TD/TT: Golf Course Equipment Operator: us Dominguez Steve DO [facility]AG[facility] Final Result * (ABNORMAL) [facility] URINE MICROSCOPIC ONLY (08/14/2024 1:00 AM EDT) Only the most recent of2 resultswithin the time period is included. Pathologist [facility] [place] TB WBC 2-5(A) NONE SEEN #/HPF TBH [...] CLINISYNC - 08/14/2024 1:24 AM EDT us Dominguez Steve DO [facility] Final Result [facility] * (ABNORMAL) [facility] UA (CLEAN/CATCH) CREDENTIALER/MICRO IF IND. (08/14/2024 1:00 AM EDT) Only the most recent of2 resultswithin the time period is included. Pathologist [facility] [place] COLOR URINE [...] CLINISYNC - 08/14/2024 1:24 AM EDT us Dominguez Steve DO CLINISYNC Final Result [facility] * (ABNORMAL) POCT urinalysis dipstick manually resulted [...] - Positive Urine 07/22/2024 1:34 PM EDT Dominguez Steve DO POINT OF CARE TEST ENTER/EDIT OR DERABLES Final Result * GLUCOSE 1 HOUR (07/04/2024 9:50 AM EDT) Pathologist [facility] [place] GLUCOSE 1 HOUR 103 <130 mg/dL [facility] 07/04/2024 9:50 AM EDT 07/04/2024 9:52 AM EDT Narrative CLINISYNC - 07/04/2024 10:07 AM EDT Cequenszio DO LAB BLOOD ORDERABLES Final Resul t [facility] * (ABNORMAL) ALL CBC WITH AUTO DIFF (07/04/2024 9:50 AM EDT) Only the most recent of2 resultswithin the time period is included. Pathologist [facility] WBC 7.5 4.0 - 11.0 10 3/uL [...] Dominguez Steve DO CLINISYNC Final Result [facility] * US OB GROWTH (07/04/2024 9:47 AM EDT) Anatomical Region Laterality Modality Other 07/04/2024 9:47 AM EDT Narrative 07/04/2024 9:49 [place] [address] Ultrasound Report Signed Patient: KARLA TYLER MR#: [id number] : 2005 Acct:[id number] Age/Sex: 19 / F ADM Date: 07/04/24 Loc: US Attending Dr: Dominguez Wilson D.O. Ordering Physician: Dominguez Wilson D.O. Date of Service: 07/04/24 Procedure(s): US OB growth Accession Number(s): [id number] cc: Dominguez Wilson D.O.; Physician,Non-Staff [place] [address] Patient Name: KARLA TYLER MRN: [facility]:[id number] date: 2005 Sex: F Assigned Patient Location: Current Patient Location: US Accession/Order Number: [id number] Exam Date: 07/04/2024 09:40 Report Date: 07/04/2024 [...] Roe M.D. 07/04/2024 9:47 AM Dictation Location: [place] [address] Electronically authenticated by: [id number] Y Date: 07/04/2024 09:47 Dictated By: Tavia Roe M.D. Signed By: 07/04/2449 DD/ 6 TD/TT: Golf Course Equipment Operator: Procedure Note Radiology, Radiologist, MD - 07/04/2024 [place] [address] Ultrasound Report Signed Patient: KARLA TYLER AMR#: [id number] : 2005Acct:[id number] Age/Sex: 19 / FADM Date: 07/04/24 Loc: US Attending Dr: Dominguez Wilson D.O. Ordering Physician: Dominguez Wilson D.O. Date of Service: 07/04/24 Procedure(s): US OB growth Accession Number(s): [id number] cc: Dominguez Wilson D.O.; Physician,Non-Staff Christine The [place] [phone] Patient Name: KARLA TYLER MRN: [id number]:[id number] date: 2005 Sex: F Assigned Patient Location: US Current Patient Location: US Accession/Order Number: [id number] Exam Date: 07/04/2024 09:40 Report Date: 07/04/2024 [...] Roe M.D. 07/04/2024 9:47 AM Dictation Location: [place] [address] Electronically authenticated by: [id number] Y Date: 9:47 Dictated By: Tavia Roe M.D. Signed By:07/04/2449 DD/ 6 TD/TT: Golf Course Equipment Operator: us Dominguez Steve DO [facility] IMAGING Final Result * [facility] LIPASE (06/04/2024 4:08 AM EDT) LIPASE 29.0 16.0 - 77.0 U/L [facility] 06/04/2024 4:08 AM EDT 06/04/2024 4:29 AM EDT Narrative CLINISYNC - 06/04/2024 4:51 AM EDT us Dominguez Steve DO CLINISYNC Final Result [facility] * (ABNORMAL) [facility] CMP (CMP) (FOR REMOTE [facility] USE) (06/04/2024 4:08 AM EDT) SODIUM 139 136 - 145 mmol/L TBH POTASSIUM 3.4(L) 3.5 - 5.1 mmol/L [facility] CHLORIDE 103 98 - 107 mmol/L [facility] CARBON DIOXIDE 25.3 21.0 - 32.0 mmol/L [facility] ANION GAP 14.1 TBH GLUCOSE 86 74 - 106 mg/dL [facility] BLOOD UREA NITROGEN 5.0(L) 7.0 - 18.0 mg/dL [facility] CREATININE 0.56 0.55 - 1.02 mg/dL [facility] TBH EGFR-AF [place] >60 >=60 mL/min/1. 73m 2 TBH TBH EGFR-NON AF [place] >60 >=60 mL/min/1. 73m 2 TBH BUN [...] us Dominguez Steve DO CLINISYNC Final Result [facility] * ALL AMYLASE (06/04/2024 4:08 AM EDT) AMYLASE 51 25 - 115 U/L [facility] 06/04/2024 4:08 AM EDT 06/04/2024 4:29 AM EDT Narrative CLINISYNC - 06/04/2024 4:51 AM EDT us Dominguez Steve DO CLINISYNC Final Result [facility] * US OB ANATOMY (05/27/2024 3:59 PM EDT) Anatomical Region Laterality Modality Other 05/27/2024 3:59 PM EDT Narrative 05/27/2024 4:02 PM EDT The [address] [address] Ultrasound Report Signed Patient: KARLA TYLER MR#: [id number] : 2005 Acct:[id number] Age/Sex: 19 / F ADM Date: 05/27/24 Loc: US Attending Dr: Dominguez Wilson D.O. Ordering Physician: Dominguez Wilson D.O. Date of Service: 05/27/24 Procedure(s): US OB anatomy Accession Number(s): [id number] cc: Dominguez Wilson D.O.; Physician,Non-Staff Christine [address] [address] Patient Name: KARLA TYLER MRN: [id number] date: 2005 Sex: F Assigned Patient Location: US Current Patient Location: US Accession/Order Number: [id number] Exam Date: 05/27/2024 15:55 Report Date: 05/27/2024 [...] Vijay Castaneda M.D.05/27/2024 3:59 PM Dictation Location: [place] [address] Electronically authenticated by: [id number] Y Date: 05/27/2024 15:59 Dictated By: Vijay Castaneda D.O. Signed By: 05/27/24 1603 DD/ 1550 TD/TT: Golf Course Equipment Operator: Procedure Note Radiology, Radiologist, MD - 05/27/2024 [place] [address] Ultrasound Report Signed Patient: KARLA TYLER AMR#: [id number] : 2005Acct:[id number] Age/Sex: 19 / FADM Date: 05/27/24 Loc: US Attending Dr: Dominguez Wilson D.O. Ordering Physician: Dominguez Wilson D.O. Date of Service: 05/27/24 Procedure(s): US OB anatomy Accession Number(s): [id number] cc: Dominguez Wilson D.O.; Physician,Non-Staff Christine The [place] [id number] Patient Name: KARLA TYLER MRN: [facility]:[id number] date: 2005 Sex: F Assigned Patient Location: US Current Patient Location: US Accession/Order Number: [id number] Exam Date: 05/27/2024 15:55 Report Date: 05/27/2024 [...] The estimated weight is 295 g. with juplampghf39.9%. The ovaries are not visualized. No fluid [...] Vijay Castaneda M.D.05/27/2024 3:59 PM Dictation Location: [place] [address] Electronically authenticated by: [id number] Y Date: :59 Dictated By: Vijay Castaneda D.O. Signed By:05/27/24 1602 DD/ 1559 TD/TT: Golf Course Equipment Operator: [facility] Steve DO CLIN[facility] IMAGING Final Result * RECURRENT VAGINITIS (HTRX) (05/22/2024 1:28 PM EDT) Pathologist [facility] [place] ATOPOBIUM VAGINAE 0.000 19.961 - 24.689 ppm 05/23/2024 7:44 AM EDT [facility] ATOPOBIUM VAGINAE Not Detected 19.961 - 24.689 ppm 05/23/2024 7:44 AM EDT [facility] BVAB 2,3 (BACTERIAL VAGINOSIS ASSOCIATED BACTERIA 2, 3); MOBILUNCUS SPP 0.000 19.961 - 24.689 ppm 05/23/2024 7:44 AM EDT [facility] BVAB 2,3 (BACTERIAL VAGINOSIS ASSOCIATED BACTERIA 2, 3); MOBILUNCUS SPP Not Detected 19.961 - 24.689 ppm 05/23/2024 7:44 AM EDT [facility] DUANE ALBICANS, PARAPSILOSIS, TROPICALIS 0.000 19.961 - 30.770 ppm 05/23/2024 7:44 AM EDT [facility] [place] DUANE ALBICANS, PARAPSILOSIS, TROPICALIS Not Detected 19.961 - 30.770 ppm 05/23/2024 7:44 AM EDT [facility] [place] DUANE GLABRATA 0.000 23.000 - 32.138 ppm 05/23/2024 7:44 AM EDT [facility] [place] DUANE GLABRATA Not Detected 23.000 - 32.138 ppm 05/23/2024 7:44 AM EDT [facility] [place] DUANE KRUSEI 0.000 23.000 - 32.271 ppm 05/23/2024 7:44 AM EDT [facility] [place] DUANE KRUSEI Not Detected 23.000 - 32.271 ppm 05/23/2024 7:44 AM EDT [facility] [place] CHLAMYDIA TRACHOMATIS 0.000 23.000 - 31.467 ppm 05/23/2024 7:44 AM EDT [facility] [place] CHLAMYDIA TRACHOMATIS Not Detected 23.000 - 31.467 ppm 05/23/2024 7:44 AM EDT [facility] GARDNERELLA VAGINALIS 0.000 19.961 - 24.689 ppm 05/23/2024 7:44 AM EDT [facility] GARDNERELLA VAGINALIS Not Detected 19.961 - 24.689 ppm 05/23/2024 7:44 AM EDT [facility] MEGASPHAERA (TYPES 1, 2) 0.000 19.961 - 24.689 ppm 05/23/2024 7:44 AM EDT [facility] MEGASPHAERA (TYPES 1, 2) Not Detected 19.961 - 24.689 ppm 05/23/2024 7:44 AM EDT [facility] NEISSERIA GONORRHOEAE 0.000 23.000 - 32.117 ppm 05/23/2024 7:44 AM EDT [facility] NEISSERIA GONORRHOEAE Not Detected 23.000 - 32.117 ppm 05/23/2024 7:44 AM EDT [facility] TRICHOMONAS VAGINALIS 0.000 23.000 - 32.119 ppm 05/23/2024 7:44 AM EDT [facility] TRICHOMONAS VAGINALIS Not Detected 23.000 - 32.119 ppm 05/23/2024 7:44 AM EDT [facility] MYCOPLASMA GENITALIUM 0.000 19.961 - 24.689 ppm 05/23/2024 7:44 AM EDT [facility] MYCOPLASMA GENITALIUM Not Detected 19.961 - 24.689 ppm 05/23/2024 7:44 AM EDT [facility] Tissue 05/22/2024 1:28 PM EDT 05/23/2024 2:11 AM EDT us Dominguez Wilson DO LAB BLOOD ORDERABLES Final Resul t [facility] [address] [place] [address] from Last 3 Months Insurance [employer] [place]ICA[place] Care Teams Lead Pharmacy Technician Relationship Specialty Start Date End Date Sadie Thomas MD [address] [place] [address] PCP - General Family Medicine 10/22/23 Katharine Olivarez NP [address] [place] [address] Nurse Practitioner Family Medicine 10/22/23
--- OUTSIDE RECORDS SUMMARY | 2024-08-18 12:09 | XMS_ITS | Encounter Summary ---
Author Organization [facility] Address [address] [place] [address] Care Team Providers Care Project Administrative Assistant Name Role Phone Sadie Thomas MD Primary Care Provider [phone] Katharine Olivarez PARTNER MARKETING INTERN Unavailable [phone] Encounter Details Date Type Department Care Team (Late st Contact Info) Description 06/19/2024 Abstract [facility] OB [address] [facility] [place] [address] Saadia Heck LPN Social History Tobacco [...] Recorded Patient Health Questionnaire-2 Score 0 03/15/2023 [facility] of Occupat ional Health - Occupational Stress [...] place to sleep or slept in a fci (including now)? No 03/15/2023 Education Answer Date [...] BCP OB [address] [place] [id number] Jerry Wilson, DO [address] [facility] [address] [place], [place] [address] documented as of this encounter Visit Diagnoses Not on filedocumented in this encounter Care Teams Project Administrative Assistant Relationship Specialty Start Date End Date Sadie Thomas MD [address] [place] [address] PCP - General Family Medicine 10/22/23 Katharine Olivarez NP [address] [place] [address] Nurse Practitioner Family Medicine 10/22/23 documented as of this encounter
--- OUTSIDE RECORDS SUMMARY | 2024-08-18 12:09 | XMS_ITS | Encounter Summary ---
Author Organization [facility] Address [address] [facility] [place] [address] Care Team Providers Care Director Of Operations Home Health Name Role Phone Sadie Thomas MD Primary Care Provider [phone] Katharine Olivarez WIND TURBINE TECHNICIAN Unavailable [phone] Encounter Details Date Type Department Care Team (Late st Contact Info) Description 07/23/2024 Abstract [facility] OB [address] [place] [address] Jerry Wilson, DO [address] [facility] [place] [address] Social History Tobacco Use Types Packs/Day Years [...] often do you attend chur ch or taoism services? Never 03/15/2023 Do you belong to [...] Recorded Patient Health Questionnaire-2 Score 0 03/15/2023 [facility] of Occupat ional Health - Occupational Stress [...] PM EDT Routine [facility] BCP OB [address] [place] [address] Jerry Wilson DO [address] [place] [address] documented as of this encounter Visit Diagnoses Not on filedocumented in this encounter Care Teams Director Of Operations Home Health Relationship Specialty Start Date End Date Sadie Thomas MD [address] [place] [address] PCP - General Family Medicine 10/22/23 Katharine Olivarez WIND TURBINE TECHNICIAN [address] [place] [address] Nurse Practitioner Family Medicine 10/22/23 documented as of this encounter
--- OUTSIDE RECORDS SUMMARY | 2024-08-18 12:09 | XMS_ITS | Encounter Summary ---
Author Organization [facility] Address [address] [facility] [place] [address] Care Team Providers Care Biomedical Engineering Technician Name Role Phone Sadie Thomas MD Primary Care Provider [phone] Katharine Olivarez DIE KEEPER Unavailable [phone] Encounter Details Date Type Department Care Team (Late st Contact Info) Description 05/27/2024 Abstract [facility] OB [address] [place] [address] Jerry Wilson, DO [address] [facility] [place] [address] Social History Tobacco Use Types Packs/Day Years [...] often do you attend chur ch or confucianism services? Never 03/15/2023 Do you belong to any clubs o r organizations such as roman catholic groups, unions, fraternal or athletic groups, or [...] place to sleep or slept in a penitentiary (including now)? No 03/15/2023 Education Answer Date [...] PM EDT Routine [facility] BCP OB [address] [place] [address] Jerry Wilson DO [address] [place] [address] documented as of this encounter Visit Diagnoses Not on filedocumented in this encounter Care Teams Biomedical Engineering Technician Relationship Specialty Start Date End Date Sadie Thomas MD [address] [place] [address] PCP - General Family Medicine 10/22/23 Katharine Olivarez DIE KEEPER [address] [place] [address] Nurse Practitioner Family Medicine 10/22/23 documented as of this encounter
--- OUTSIDE RECORDS SUMMARY | 2024-08-18 12:09 | XMS_ITS | Encounter Summary ---
Author Organization [facility] Address [address] [place] [address] Care Team Providers Care Jockey Room Custodian Name Role Phone Sadie Thomas MD Primary Care Provider [phone] Katharine Olivarez NP Unavailable [phone] Encounter Details Date Type Department Care Team (Late st Contact Info) Description 08/14/2024 Clinisync Result Encounter [facility] External Department Unsolicited Dominguez Wilosn, [address] [facility] [place] [address] Social History Tobacco Use Types Packs/Day Years [...] Routine [facility] BCP OB [address] [facility] [place] [address] Dominguez Wilson, DO [address] [facility] [place] [address] documented as of this encounter Procedures Procedure Name Priority Date/Time Associated Diagnosis Comments US OB PLACENTA 08/14/2024 9:23 AM EDT documented in this encounter Results * US OB PLACENTA (08/14/2024 9:23 AM EDT) Anatomical Region Laterality Modality Other 08/14/2024 9:23 AM EDT Narrative 08/14/2024 9:26 [place] [address] Ultrasound Report Signed Patient: JORDIN KIDD MR#: [id number] : 2005 Acct:[id number] Age/Sex: 19 / F ADM Date: Loc: [facility] 250-[address]: Dominguez Wilson D.O. Ordering Physician: Dominguez Wilson D.O. Date of Service: 08/14/24 Procedure(s): US OB placenta Accession Number(s): [id number] cc: Dominguez Wilson D.O.; Physician,Non-Staff M.[place]ba [place] [address] Patient Name: JORDIN KIDD MRN: [facility]:[id number] date: 2005 Sex: F Assigned Patient Location: [facility] Current Patient Location: Accession/Order Number: [id number] Exam Date: 08/14/2024 09:18 Report Date: 08/14/2024 09:23 At the request of: DOMINGUEZ WILSON DO Procedure: US OB cervical length CLINICAL DATA: SGA. Contractions. BIOPHYSICAL PROFILE: COMPARISON: 08/07/2024 There is a single live intrauterine gestation in breech presentation. The reported gestational age is 31 weeks 4 days.. The heart rate [id number] beats per minute. FINDINGS: TONE: 1 or [...] Roe M.D. 08/14/2024 9:23 AM Dictation Location: [place] [address] Electronically authenticated by: [id number] Y Date: 08/14/2024 09:23 Dictated By: Tavia Roe M.D. Signed By: 08/14/24925 DD/ 2 TD/TT: Content Publisher: Procedure Note Radiology, Radiologist, MD - 08/14/2024 [place] [address] Ultrasound Report Signed Patient: JORDIN KIDD AMR#: [id number] : 2005Acct:[id number] Age/Sex: 19 FADM Date: Loc: [facility] 250- Attending Dr: Dominguez Wilson D.O. Ordering Physician: Dominguez Wilson D.O. Date of Service: 08/14/24 Procedure(s): US OB placenta Accession Number(s): [id number] cc: Dominguez Wilson D.O.; Physician,Non-Staff Christine The [place] [address] Patient Name: JORDIN KIDD MRN: [id number] date: 2005 Sex: F Assigned Patient Location: [facility] Current Patient Location: Accession/Order Number: [id number] Exam Date: 08/14/2024 09:18 Report Date: 08/14/2024 09:23 At the request of: DOMINGUEZ WILSON DO Procedure: US OB cervical length CLINICAL DATA: SGA. Contractions. BIOPHYSICAL PROFILE: COMPARISON: 08/07/2024 There is a single live intrauterine gestation in breech presentation. The reported gestational age is 31 weeks 4 days.. The heart rate [id number] beats per minute. FINDINGS: TONE: 1 or [...] Roe M.D. 08/14/2024 9:23 AM Dictation Location: [place] [address] Electronically authenticated by: [id number] Y Date: 9:23 Dictated By: Tavia Roe M.D. Signed By:08/14/24925 DD/ 2 TD/TT: Content Publisher: us Dominguez Steve DO [facility] Final Result documented in this encounter Visit Diagnoses Not on filedocumented in this encounter Care Teams Jockey Room Custodian Relationship Specialty Start Date End Date Sadie Thomas MD [address] [place] [address] PCP - General Family Medicine 10/22/23 Katharine Olivarez NP [address] [place] [address] Nurse Practitioner Family Medicine 10/22/23 documented as of this encounter
--- OUTSIDE RECORDS SUMMARY | 2024-08-18 12:09 | XMS_ITS | Encounter Summary ---
Author Organization [facility] Address [address] [facility] [place] [address] Care Team Providers Care Auto Phone Installer Name Role Phone Sadie Thomas MD Primary Care Provider [phone] Katharine Olivarez MINI LAB OPERATOR Unavailable [phone] Encounter Details Date Type Department Care Team (Late st Contact Info) Description 06/04/2024 Abstract [facility] BCP OB [address] [facility] [address] Jerry Wilson, DO [address] [facility] [place] [address] Social History Tobacco Use Types Packs/Day Years [...] Recorded Patient Health Questionnaire-2 Score 0 03/15/2023 [facility] of Occupat ional Health - [...] [facility] [address] Jerry Wilson DO [address] [place] [address] documented as of this encounter Visit Diagnoses Not on filedocumented in this encounter Care Teams Auto Phone Installer Relationship Specialty Start Date End Date Sadie Thomas MD [address] [place] [address] PCP - General Family Medicine 10/22/23 Katharine Olivarez MINI LAB OPERATOR [address] [place] [address] Nurse Practitioner Family Medicine 10/22/23 documented as of this encounter
--- OUTSIDE RECORDS SUMMARY | 2024-08-18 12:09 | XMS_ITS | Encounter Summary ---
Author Organization [facility] Address [address] [place] [address] Care Team Providers Care Rehabilitation Inspector Name Role Phone Sadie Thomas MD Primary Care Provider [phone] Katharine Olivarez NP Unavailable Encounter Details Date Type Department Care Team (Late st Contact Info) Description 08/14/2024 Clinisync Result Encounter [facility] External Department Unsolicited Dominguez Wilson, [address] [facility] [place] [address] Social History Tobacco Use Types Packs/Day Years [...] often do you attend chur ch or quaker services? Never 03/15/2023 Do you belong to any clubs o r organizations such as jainism groups, unions, fraternal or athletic groups, or [...] Recorded Patient Health Questionnaire-2 Score 0 03/15/2023 [facility] of Occupat ional Health - Occupational [...] PM EDT Routine [facility] BCP OB [address] [facility] [place] [address] Dominguez Wilson, DO [address] [place] [address] [place] [address] documented as of this encounter Procedures Procedure Name Priority Date/Time Associated Diagnosis Comments US OB BPP W NON-STRESS 08/14/2024 9:23 AM EDT documented in this encounter Results * US OB BPP W NON-STRESS (08/14/2024 9:23 AM EDT) Anatomical Region Laterality Modality Other 08/14/2024 9:23 AM EDT Narrative 08/14/2024 9:26 AM EDT [address] [address] Ultrasound Report Signed Patient: JORDIN KIDD MR#: [id number] : 2005 Acct:[id number] Age/Sex: 19 / F ADM Date: Loc: [facility] 250-[address]: Dominguez Wilson D.O. Ordering Physician: Dominguez Wilson D.O. Date of Service: 08/14/24 Procedure(s): US OB BPP w non-stress Accession Number(s): [id number] cc: Dominguez Wilson D.O.; Physician,Non-Staff MArleth [address] [address] Patient Name: JORDIN KIDD MRN: [id number] date: 2005 Sex: F Assigned Patient Location: [facility] Current Patient Location: Accession/Order Number: [id number] Exam Date: 08/14/2024 09:18 Report Date: 08/14/2024 09:23 At the request of: DOMINGUEZ WILSON DO Procedure: US OB cervical length CLINICAL DATA: SGA. Contractions. BIOPHYSICAL PROFILE: COMPARISON: 08/07/2024 There is a single live intrauterine gestation in breech presentation. The reported gestational age is 31 weeks 4 days.. The heart rate [id number] beats per minute. FINDINGS: TONE: 1 or [...] Roe M.D. 08/14/2024 9:23 AM Dictation Location: [place] [address] Electronically authenticated by: [id number] Y Date: 08/14/2024 09:23 Dictated By: Tavia Roe M.D. Signed By: 08/14/24925 DD/ 2 TD/TT: Draw String Knotter: Procedure Note Radiology, Radiologist, MD - 08/14/2024 [place] [address] Ultrasound Report Signed Patient: JORDIN KIDD AMR#: [id number] : 2005Acct:[id number] Age/Sex: M Date: Loc: [place] [address]- Attending Dr: Dominguez Wilson D.O. Ordering Physician: Dominguez Wilson D.O. Date of Service: 08/14/24 Procedure(s): US OB BPP w non-stress Accession Number(s): [id number] cc: Dominguez Wilson D.O.; Physician,Non-Staff Christine The [place] [address] Patient Name: JORDIN KIDD MRN: [facility]:[id number] date: 2005 Sex: F Assigned Patient Location: [facility] Current Patient Location: Accession/Order Number: [id number] Exam Date: 08/14/2024 09:18 Report Date: 08/14/2024 09:23 At the request of: DOMINGUEZ WILSON DO Procedure: US OB cervical length CLINICAL DATA: SGA. Contractions. BIOPHYSICAL PROFILE: COMPARISON: 08/07/2024 There is a single live intrauterine gestation in breech presentation. The reported gestational age is 31 weeks 4 days.. The heart rate [id number] beats per minute. FINDINGS: TONE: 1 or [...] Roe M.D. 08/14/2024 9:23 AM Dictation Location: [place] [address] Electronically authenticated by: [id number] Y Date: 9:23 Dictated By: Tavia Roe M.D. Signed By:08/14/24925 DD/ 2 TD/TT: Draw String Knotter: us Dominguez Steve DO [facility] Final Result documented in this encounter Visit Diagnoses Not on filedocumented in this encounter Care Teams Rehabilitation Inspector Relationship Specialty Start Date End Date Sadie Thomas MD [address] [place] [address] PCP - General Family Medicine 10/22/23 Katharine Olivarez NP [address] [place] [address] Nurse Practitioner Family Medicine 10/22/23 documented as of this encounter
--- OUTSIDE RECORDS SUMMARY | 2024-08-18 12:10 | XMS_ITS | Encounter Summary ---
Author Organization [facility] Address [address] [facility] [place] [address] Care Team Providers Care Field Marketing Lead Name Role Phone Sadie Thomas MD Primary Care Provider [phone] Katharine Olivarez RIM ROLLER SETTER Unavailable [phone] Encounter Details Date Type Department Care Team (Late st Contact Info) Description 05/19/2024 Abstract [facility] BCP OB [address] [facility] [place] [address] Jerry Wilson, DO [address] [facility] [place] [address] Social History Tobacco Use Types Packs/Day Years [...] often do you attend chur ch or moravian services? Never 03/15/2023 Do you belong to [...] Recorded Patient Health Questionnaire-2 Score 0 03/15/2023 [facility] of Occupat ional Health - Occupational [...] PM EDT Routine [facility] BCP OB [address] [facility] [place] [address] Jerry Wilson DO [address] [place] [address] documented as of this encounter Visit Diagnoses Not on filedocumented in this encounter Care Teams Field Marketing Lead Relationship Specialty Start Date End Date Sadie Thomas MD [address] [place] [address] PCP - General Family Medicine 10/22/23 Katharine Olivarez RIM ROLLER SETTER [address] [place] [address] Nurse Practitioner Family Medicine 10/22/23 documented as of this encounter
[2024-08-18 12:16] VITALS: BP 107/53; PULSE 81
== END 2024-08-18 12:47 | disposition home or self-care (01) ==
LOC: FBCO 12:05 → FBC 12:06
PROVIDERS: Visit Provider Obstetrics & Gynecology
DX: O36.5930 Maternal care for other known or suspected poor fetal growth, third trimester, not applicable or unspecified (principal)
CPT/HCPCS: 59025

== ENCOUNTER 2024-08-21 17:06 | Outpatient (OUT) | payer MEDICAID, SELFPAY ==
[2024-08-21 17:22] VITALS: BP 119/57; PULSE 83
== END 2024-08-21 18:36 | disposition home or self-care (01) ==
LOC: US 17:06 → FBC 17:09
PROVIDERS: Visit Provider Physician Assistant
DX: O36.5930 Maternal care for other known or suspected poor fetal growth, third trimester, not applicable or unspecified (principal); Z3A.32 32 weeks gestation of pregnancy
CPT/HCPCS: 59025

== ENCOUNTER 2024-08-26 01:39 | Observation (INO) | payer MEDICAID, SELFPAY ==
--- OUTSIDE RECORDS SUMMARY | 2008-06-26 06:00 | XMS_ITS | Continuity of Care Document ---
Author Organization [facility] Address [address] [place] [address] Phone Care Team Providers Care Aligning Checker Name Role Phone Eunice GABRIEL Mitch Unavailable Unavailable Procedures Procedure Date OFFICE/OUTPATIENT VISIT, [facility] DTAP VACCINE, < 7 YRS, IM MMR VACCINE, [place] POLIOVIRUS, IPV, SC/IM CHICKEN POX VACCINE, [place] Advance Directives Directive Yes / No Effective Date File Name No Information Encounters Encounter Description Practice Location Reason(s) For Visit Diagnoses Date Provider Providers Copied on Encounter OFFICE/OUTPATI ENT VISIT, [facility], [address] [place], [place], [id number], [place] tel:[phone] [facility] No Information Eunice Cox. [address] [place], [place], [id number], [place]. tel:[phone] Family History Family Member Type Diagnosis Age At Onset No Information Payers Payer name Insurance type Covered constitution party ID Authoriza tion(s) No Information Social [...]
--- OUTSIDE RECORDS SUMMARY | 2024-03-20 09:00 | XMS_ITS ---
Author Organization [facility] Address [address] [facility] [place] [address] Care Team Providers Care Barrel Raiser Helper Name Role Phone Soraida Sandy Primary Care Provider Brenna Turner [phone] REASON FOR VISIT FILLING Encounters Encounter Location Date Provider Diagnosis [facility] [address] [facility] [place] [place] [address] 03/20/2024 Brenna Turner Plan Of Treatment No Information Progress Notes * ESTHER TYLEROB: 4 (19 yo F)Acc No.[id number]:03/20/2024 Patient: JORDIN ROWAN Provider: Andrea Turner :2005 A ge:19 Y S ex:Female Date:03/20/2024 Address:[address] [place] [address] [address] [id number] Pcp:Soraida Frausto Subjective: * Chief Complaints: * 1 . FILLING. * Medical History: Objective: * Vitals: Assessment: Plan: * Treatment: * Images: * Electronic signature of Eliu Turner DMD on 08/26/2024 at 01:44 AM EDT Sign off status: Pending * Provider: Andrea Turner Date: 0 03/20/2024 Generated for Cornelio edwards/Heather/eTransmitting on: 0 08/26/2024 01:44 AM EDT
--- OUTSIDE RECORDS SUMMARY | 2024-04-01 05:45 | XMS_ITS ---
Author Organization [facility] Address [address] [facility] [place] [address] Care Team Providers Care Global Marketing Intern Name Role Phone Soraida Sandy Primary Care Provider Chelsi Grijalva [phone] REASON FOR VISIT PROPHY NO HYG HX SINCE 2021, GEN DECAY Encounters Encounter Location Date Provider Diagnosis [facility] [address] [address] 04/01/2024 Chelsi Grijalva Plan Of Treatment No Information Progress Notes * JAYSON JOSEEDOB: 4 (19 yo F)Acc No.[id number]:04/01/2024 Patient: JORDIN ROWAN Provider: Sergio Grijalva :2005 A ge:19 Y S ex:Female Date:04/01/2024 [id number] Pcp:Soraida Frausto Subjective: * Chief Complaints: * 1 . PROPHY NO HYG HX SINCE 2021, GEN DECAY. * Medical History: Objective: * Vitals: Assessment: Plan: * Treatment: * Images: * Electronic signature of Cookie Grijalva on 08/26/2024 at 01:44 AM EDT Sign off status: Pending * Provider: Sergio Grijalva Date: 04/01/2024 Generated for Printi ng/Faxing/eTransmitting on: 0 08/26/2024 01:44 AM EDT
--- OUTSIDE RECORDS SUMMARY | 2024-07-14 07:00 | XMS_ITS ---
Author Organization [facility] es Address [address] [place] [address] Care Team Providers Care Mortgage Processing Clerk Name Role Phone Soraida Sandy Primary Care Provider Dr. Carrillo Alegre [facility] [phone] REASON FOR VISIT FILLING Encounters Encounter Location Date Provider Diagnosis [facility] [address] [facility] [place] [address] 2024 Carrillo Alegre Plan Of Treatment No Information Progress Notes * JAYSON JOSEEDOB: 4 (19 yo F)Acc No.[id number]:07/14/2024 Patient: JORDIN ROWAN Provider: Andrea Alegre DDS :2005 A ge:19 Y S ex:Female Date:07/14/2024 Address:[facility] [place]note 2] [place] [facility] Pcp:Soraida Frausto Subjective: * Chief Complaints: * 1 . FILLING. * Medical History: Objective: * Vitals: Assessment: Plan: * Treatment: * Images: * Electronic signature of Dr. Carrillo Alegre , DMD on 08/26/2024 at 01:44 AM EDT Sign off status: Pending * Provider: Andrea Alegre DDS Date: 07/14/2024 Generated for Johni ng/Fajacksong/eTransmitting on: 08/26/2024 01:44 AM EDT
--- OUTSIDE RECORDS SUMMARY | 2024-08-19 13:50 | XMS_ITS | Encounter Summary ---
Author Organization [facility] Address [address] [facility] [place] [address] Care Team Providers Care Canvas Baster Name Role Phone Sadie Thomas MD Primary Care Provider [phone] Katharine Olivarez NP Unavailable [phone] Reason for Visit * Reason Comments Routine Visit Encounter Details Date Type Department Care Team (Late st Contact Info) Description 08/19/2024 1:50 PM EDT Routine [facility] BCP OB [address] [place] [phone] Jerry Wilson, DO [address] [facility] [place] [address] Third trimester ([facility]); 32 weeks gestation of ([facility]) Social History Tobacco Use Types [...] Recorded Patient Health Questionnaire-2 Score 0 03/15/2023 [facility] of Occupat ional [facility] - Occupational Stress Questionnaire Answer Date [...] nursing note reviewed. Exam conducted with a director of plant operations present. Vitals: Estimated body mass index is 30.38 kg/m² as calculated from the following: Height as of 24: 5' 4 . Weight as of this encounter: 177 lb. BP: 120/60 Patient's last menstrual period was 02/23/2024. ASSESSMENT & PLAN ICD-10-CM 1. Third trimester ([facility]) Z34.93 POCT urinalysis dipstick manually resulted 2. 32 weeks gestation of ([facility]) Z3A.32 Return OB: Patient presents today for a routine obstetrics appointment. Patient is currently 32w2d . Patient states she is doing well but has complaints of being tired due to current . Patient has verbalizes frequent movement. labor precautions was discussed/given and patient was instructed to perform kick counts three times a day. Pt states she is driving to [place] in 2 weeks for a in the [...] AM EDT Routine [facility] BCP OB [address] [facility] [address] Jerry Wilson, DO [address] [facility] [place] [address] documented as of this encounter Procedures Procedure Name Priority Date/Time Associated Diagnosis Comments POCT URINALYSIS DIPSTICK Routine 08/19/2024 1:58 PM EDT Third trimester ([facility]) documented in this encounter Results * POCT [...] this encounter Visit Diagnoses Diagnosis Third trimester ([facility]) state, incidental 32 weeks gestation of ([facility]) documented in this encounter Care Teams Canvas Baster Relationship Specialty Start Date End Date Sadie Thomas MD [address] [place] [address] PCP - General Family Medicine 10/22/23 Katharine Olivarez NP [address] [place] [address] Nurse Practitioner Family Medicine 10/22/23 documented as of this encounter
--- OUTSIDE RECORDS SUMMARY | 2024-08-26 01:44 | XMS_ITS | Encounter Summary ---
Author Organization [facility] Address [address] [facility] [place] [address] Care Team Providers Care Director Of Food And Nutrition Services Name Role Phone Sadie Thomas MD Primary Care Provider [phone] JUDGE Unavailable [phone] Encounter Details Date Type Department Care Team (Late st Contact Info) Description 07/23/2024 Abstract [facility] BCP OB [address] [facility] [place] [address] Jerry Wilson, DO [address] [facility] [place] [address] Social History Tobacco Use Types Packs/Day Years [...] any clubs o r organizations such as tenriism groups, unions, fraternal or athletic groups, or [...] Recorded Patient Health Questionnaire-2 Score 0 03/15/2023 [facility] of Occupat ional Health - Occupational [...] [address] [facility] [place] [address] Jerry Wilson DO [address] [place] [address] documented as of this encounter Visit Diagnoses Not on filedocumented in this encounter Care Teams Director Of Food And Nutrition Services Relationship Specialty Start Date End Date Sadie Thomas MD [address] [place] [address] PCP - General Family Medicine 10/22/[address] JUDGE [address] [place] [address] Nurse Practitioner Family Medicine 10/22/23 documented as of this encounter
--- OUTSIDE RECORDS SUMMARY | 2024-08-26 01:44 | XMS_ITS | Encounter Summary ---
Author Organization [facility] Address [address] [place] [address] Care Team Providers Care Microwave Supervisor Name Role Phone Unallocated, Noms Provider Primary Care Provi nani Sadie Thomas MD Primary Care Provider [phone] Katharine Olivarez GRID INSPECTOR Unavailable [phone] Encounter Details Date Type Department Care Team (Late st Contact Info) Description 03/15/2023 Orders Only [facility] NB OB [address] [place] [address] [phone] Unallocated, Noms Provider, [address] [place], [place] [phone] Social History Tobacco Use Types Packs/Day Years [...] often do you attend chur ch or buddhist services? Never 03/15/2023 Do you belong to any clubs o r organizations such as voodoo groups, unions, fraternal or athletic groups, or [...] Recorded Patient Health Questionnaire-2 Score 0 03/15/2023 [facility] of Occupat ional [facility] - Occupational Stress Questionnaire Answer Date [...] [address] [facility] [place] [address] Jerry Wilson, DO [address] [facility] [place] [address] documented as of this encounter Procedures Procedure [...] on filedocumented in this encounter Care Teams Microwave Supervisor Relationship Specialty Start Date End Date Unallocated, Noms Provider, [address] [place] [address] PCP - General 07/19/22 10/21/23 Sadie Thomas MD [address] [place] [address] PCP - General Family Medicine 10/22/23 Katharine Olivarez NP [address] [place] [address] Nurse Practitioner Family Medicine 10/22/23 documented as of this encounter
--- OUTSIDE RECORDS SUMMARY | 2024-08-26 01:44 | XMS_ITS | Encounter Summary ---
Author Organization [facility] Address [address] [place] [address] Care Team Providers Care Bank Cashier Name Role Phone Sadie Thomas MD Primary Care Provider [phone] Katharine Olivarez NP Unavailable Encounter Details Date Type Department Care Team (Late st Contact Info) Description 08/14/2024 Clinisync Result Encounter NOMS External Department Unsolicited Dominguez Wilson, [address] [facility] [place] [address] Social History Tobacco Use Types Packs/Day Years [...] often do you attend chur ch or gnosticist services? Never 03/15/2023 Do you belong to [...] Recorded Patient Health Questionnaire-2 Score 0 03/15/2023 [facility] of Occupat ional Health - Occupational [...] AM EDT Routine [facility] BCP OB [address] [facility] [place] [place] [address] Dominguez Wilson, DO [address] [place] [address] [place] [address] documented as of this encounter Procedures Procedure Name Priority Date/Time Associated Diagnosis Comments US OB BPP W NON-STRESS 08/14/2024 9:23 AM EDT documented in this encounter Results * US OB BPP W NON-STRESS (08/14/2024 9:23 AM EDT) Anatomical Region Laterality Modality Other 08/14/2024 9:23 AM EDT Narrative 08/14/2024 9:26 AM EDT [address] [address] Ultrasound Report Signed Patient: JORDIN KIDD MR#: [id number] : 2005 Acct:[id number] Age/Sex: 19 / F ADM Date: Loc: [facility] 250-[address]: Dominguez Wilson D.O. Ordering Physician: Dominguez Wilson D.O. Date of Service: 08/14/24 Procedure(s): US OB BPP w non-stress Accession Number(s): [id number] cc: Dominguez Wilson D.O.; Physician,Non-Staff MArleth [address] [address] Patient Name: JORDIN KIDD MRN: [id number] date: 2005 Sex: F Assigned Patient Location: [facility] Current Patient Location: Accession/Order Number: [id number] Exam Date: 08/14/2024 09:18 Report Date: 08/14/2024 09:23 At the request of: DOMINGUEZ WILSON DO Procedure: US OB cervical length CLINICAL DATA: SGA. Contractions. BIOPHYSICAL PROFILE: COMPARISON: 08/07/2024 There is a single live intrauterine gestation in breech presentation. The reported gestational age is 31 weeks 4 days.. The heart rate [id number] beats per minute. FINDINGS: TONE: 1 or [...] Roe M.D. 08/14/2024 9:23 AM Dictation Location: [place] [address] Electronically authenticated by: [id number] Y Date: 08/14/2024 09:23 Dictated By: Tavia Roe M.D. Signed By: 08/14/24925 DD/ 2 TD/TT: 8Th Grade Mathematics Teacher: Procedure Note Radiology, Radiologist, MD - 08/14/2024 [place] [address] Ultrasound Report Signed Patient: JORDIN KIDD AMR#: [id number] : 2005Acct:[id number] Age/Sex: M Date: Loc: [place] [address]- Attending Dr: Dominguez Wilson D.O. Ordering Physician: Dominguez Wilson D.O. Date of Service: 08/14/24 Procedure(s): US OB BPP w non-stress Accession Number(s): [id number] cc: Dominguez Wilson D.O.; Physician,Non-Staff Christine The [place] [address] Patient Name: JORDIN KIDD MRN: [id number]:[id number] date: 2005 Sex: F Assigned Patient Location: [facility] Current Patient Location: Accession/Order Number: [id number] Exam Date: 08/14/2024 09:18 Report Date: 08/14/2024 09:23 At the request of: DOMINGUEZ WILSON DO Procedure: US OB cervical length CLINICAL DATA: SGA. Contractions. BIOPHYSICAL PROFILE: COMPARISON: 08/07/2024 There is a single live intrauterine gestation in breech presentation. The reported gestational age is 31 weeks 4 days.. The heart rate [id number] beats per minute. FINDINGS: TONE: 1 or [...] Roe M.D. 08/14/2024 9:23 AM Dictation Location: [place] [address] Electronically authenticated by: [id number] Y Date: 9:23 Dictated By: Tavia Roe M.D. Signed By:08/14/24925 DD/ 2 TD/TT: 8Th Grade Mathematics Teacher: us Dominguez Steve DO [facility] Final Result documented in this encounter Visit Diagnoses Not on filedocumented in this encounter Care Teams Bank Cashier Relationship Specialty Start Date End Date Sadie Thomas MD [address] [place] [address] PCP - General Family Medicine 10/22/23 Katharine Olivarez NP [address] [place] [address] Nurse Practitioner Family Medicine 10/22/23 documented as of this encounter
--- OUTSIDE RECORDS SUMMARY | 2024-08-26 01:44 | XMS_ITS | Encounter Summary ---
Author Organization [facility] Address [address] [facility] [place] [address] Care Team Providers Care A Class Lineman Name Role Phone Sadie Thomas MD Primary Care Provider Katharine Olivarez CAR PARK ATTENDANT Unavailable [phone] Encounter Details Date Type Department Care Team (Late st Contact Info) Description 05/27/2024 Abstract [facility] BCP OB [address] [facility] [place] [address] Jerry Wilson, DO [address] [facility] [place] [address] Social History Tobacco Use Types Packs/Day Years [...] any clubs o r organizations such as samaritan groups, unions, fraternal or athletic groups, or [...] Recorded Patient Health Questionnaire-2 Score 0 03/15/2023 [facility] of Occupat ional Health - Occupational Stress [...] AM EDT Routine [facility] BCP OB [address] [facility] [place] [address] Jerry Wilson DO [address] [place] [address] documented as of this encounter Visit Diagnoses Not on filedocumented in this encounter Care Teams A Class Lineman Relationship Specialty Start Date End Date Sadie Thomas MD [address] [place] [address] PCP - General Family Medicine 10/22/23 Katharine Olivarez CAR PARK ATTENDANT [address] [place] [address] Nurse Practitioner Family Medicine 10/22/23 documented as of this encounter
--- OUTSIDE RECORDS SUMMARY | 2024-08-26 01:44 | XMS_ITS | Encounter Summary ---
Author Organization [facility] Address [address] [facility] [place] [address] Care Team Providers Care Cafeteria Assistant Name Role Phone Sadie Thomas MD Primary Care Provider [phone] Katharine Olivarez INTAKE CLERK Unavailable [phone] Encounter Details Date Type Department Care Team (Late st Contact Info) Description 06/04/2024 Abstract [facility] BCP OB [address] [facility] [place] [address] Jerry Wilson, DO [address] [facility] [place] [address] Social History Tobacco Use Types Packs/Day Years [...] any clubs o r organizations such as protestant groups, unions, fraternal or athletic groups, or [...] AM EDT Routine [facility] BCP OB [address] [facility] [place] [address] Jerry Wilson DO [address] [place] [address] documented as of this encounter Visit Diagnoses Not on filedocumented in this encounter Care Teams Cafeteria Assistant Relationship Specialty Start Date End Date Sadie Thomas MD [address] [place] [address] PCP - General Family Medicine 10/22/23 Katharine Olivarez INTAKE CLERK [address] [place] [address] Nurse Practitioner Family Medicine 10/22/23 documented as of this encounter
--- OUTSIDE RECORDS SUMMARY | 2024-08-26 01:44 | XMS_ITS | Patient Health Record ---
Author Organization [facility] Address [address] [place] [address] Care Team Providers Care Refrigerator Car Icer Name Role Phone Soraida Sandy Primary Care Provider Dr. Carrillo Alegre Unavailable [phone] Juan Carlos Messina Unavailable [phone] Chelsi Grijalva Unavailable [phone] Jasmyn Perkins Unavailable [phone] Brenna Turner Unavailable [phone] Reason For Referral No Information Encounters Encounter Location Date Provider Diagnosis [facility] [address] [place] [address] 09/26/2023 Soraida Frausto [facility] [address] [place] [address] 09/18/2023 Carrillo Alegre Dental caries on pit and fissure surface penetrating into dentin K02.52 ; Cracked tooth K03.81 ; Encounter for dental examination and cleaning with abnormal findings Z01.21 ; Other dental procedure status Z98.818 and Acute gingivitis, plaque induced K05.00 [facility] [address] [place] [address] 11/19/2023 Brenna Turner Dental caries on pit and fissure surface penetrating into dentin K02.52 [facility] [place] [address] 01/14/2024 Brenna Turner Dental caries on pit [...] T ADVANTAGE -termed 22 [address] [place] [address] [id number] JORDIN TYLER Self - patient is the insured 2 3 zMEDICAID CFC after [place] -termed 22 [address] [place] [address] [id number] JORDIN TYLER Self - patient is the insured 2 3 zDENTAL DQ [employer]AMOUNT -termed 22 [address] [place] [address] [id number] JORDIN TYLER Self - patient is the insured 2 3 zDental MEDICAID CFC after [place] -termed 22 [address] [place] [address] [id number] JODRIN TYLER Self - patient is the insured 2 3 Dental [place] DQ Terminate d 24 [address] [place] [address] [id number] JORDIN TYLER Self - patient is the insured 4 Dental Wrap CFC [facility] [address] [place] [address] [id number] JORDIN TYLER Self - patient is the insured 4
--- OUTSIDE RECORDS SUMMARY | 2024-08-26 01:44 | XMS_ITS | Encounter Summary ---
Author Organization [facility] Address [address] [place] [address] Care Team Providers Care Leather Tanner Name Role Phone Sadie Thomas MD Primary Care Provider [phone] Katharine Olivarez BIOPHARMACEUTICAL REP Unavailable [phone] Encounter Details Date Type Department Care Team (Late st Contact Info) Description 06/19/2024 Abstract [facility] BCP OB [address] [facility] [place] [address] Saadia Heck LPN [...] often do you attend chur ch or religion services? Never 03/15/2023 Do you belong to any clubs o r organizations such as catholic groups, unions, fraternal or athletic groups, [...] Recorded Patient Health Questionnaire-2 Score 0 03/15/2023 [facility] of Occupat ional Health - Occupational Stress [...] AM EDT Routine [facility]OM[facility] BCP OB [address] [place] [address] Jerry Wilson, DO [address] [facility] [address] [place], [place] [address] documented as of this encounter Visit Diagnoses Not on filedocumented in this encounter Care Teams Leather Tanner Relationship Specialty Start Date End Date Sadie Thomas MD [address] [place] [address] PCP - General Family Medicine 10/22/23 Katharine Olivarez NP [address] [place] [address] Nurse Practitioner Family Medicine 10/22/23 documented as of this encounter
--- OUTSIDE RECORDS SUMMARY | 2024-08-26 01:45 | XMS_ITS | Encounter Summary ---
Author Organization [facility] Address [address] [place] [address] Care Team Providers Care Tandem Mill Operator Name Role Phone Sadie Thomas MD Primary Care Provider Katharine Olivarez NP Unavailable Encounter Details Date Type Department Care Team (Late st Contact Info) Description 08/14/2024 Clinisync Result Encounter NOMS External Department Unsolicited Jerry Wilson, [address] [facility] [place] [address] Social History Tobacco Use Types Packs/Day Years [...] often do you attend chur ch or orthodoxy services? Never 03/15/2023 Do you belong to [...] Recorded Patient Health Questionnaire-2 Score 0 03/15/2023 [facility] of Occupat ional Health - Occupational [...] [place] [address] Jerry Wilson, DO [address] [facility] [address] [place], [place] [address] documented as of this encounter Procedures Procedure Name Priority Date/Time Associated Diagnosis Comments [facility] URINE MICROSCOPIC ONLY Routine 08/14/2024 1:00 AM EDT [facility] UA (CLEAN/CATCH) L D RN/MICRO IF IND. Routine 08/14/2024 1:00 AM EDT [...] DO [facility] Final Result Performing Organization Address City/[facility] Co de Phone Number [facility] * (ABNORMAL) [facility] UA (CLEAN/CATCH) L D RN/MICRO IF IND. (08/14/2024 1:00 AM EDT) COLOR [...] on filedocumented in this encounter Care Teams Tandem Mill Operator Relationship Specialty Start Date End Date Sadie Thomas MD [address] [place] [address] PCP - General Family Medicine 10/22/23 Katharine Olivarez NP [address] [place] [address] Nurse Practitioner Family Medicine 10/22/23 documented as of this encounter
--- OUTSIDE RECORDS SUMMARY | 2024-08-26 01:45 | XMS_ITS | Clinical Summary ---
Author Organization [facility] [employer] [facility] tem Address [id number] [address] [place] [address] Care Team Providers Care Swimming Coach Name Role Phone Unavailable Primary Care Provider Unavailabl e Allergies Active Allergy Reactions Criticality Noted Date Comments Amoxicillin 07/21/2024 Metoclopramide Hcl 07/21/2024 Medications [id number] c acid ( 19) 29 mg iron- [...] - 07/22/2024 11:59 PM EDT Hospital Encounter [facility] US Imaging [address] [place] [address] Abnormal ultrasound Discharge Disposition: Home 07/22/2024 Orders Only Maternal- Medicine at [facility] [address] [place] [address] Nely Sheldon, RN Encounter for follow-up ultrasound of anatomy (Primary Dx) 07/22/2024 Travel 07/21/2024 Abstract Maternal- Medicine at [facility] [address] [place] [address] External, Scanning Provider 07/21/2024 Orders Only Maternal- Medicine at [facility] [address] [place] [address] Chelsi Box RN Abnormal ultrasound (Primary Dx) [...] Info) Description 09/03/2024 11:00 AM EDT Appointment [facility] US Imaging [address] [place] [address] Health Maintenance Due Date Last Done Comments Chlamydia Screening 2004 Depression Screening 2016 Tobacco Screening 2016 Adult BMI Screening 01/06/2022 DTaP,Tdap and Td Vaccines (1 - Tdap) 01/06/2023 Influenza Vaccine 10/06/2024 Medical Devices Not on file Procedures Procedure Name Priority Date/Time Associated Diagnosis Comments US [facility] COMPREHENSIVE ANATOMIC SURVEY Routine 07/22/2024 8:27 AM EDT Abnormal ultrasound ULTRASOUND OFFICE Routine 07/04/2024 3:3 1 PM EDT ULTRASOUND OFFICE Routine 05/27/2024 3:3 3 PM EDT from Last 3 Months Results * US [facility] COMPREHENSIVE ANATOMIC SURVEY (07/22/2024 8:27 AM EDT) Anatomical Region Laterality Modality OB-WOODS MANAGER Ultrasound 07/22/2024 7:46 AM EDT Narrative 07/22/2024 10:01 AM EDT NAME: JAYSON BRENNER : 2005 SEX: F Accession Number: [id number] ORDERING PHYSICIAN: ALLAN YEPEZ REFERRING PHYSICIAN: DOMINGUEZ HOGAN Coding ----- --------- Procedures 12172: Ultrasound, uterus, real time with image documentation, and maternal evaluation plus detailed anatomic examination, transabdominal approach;single or first gestation Indication ----- --------- Screening for Anatomic Survey , Screening for IUGR , Maternal anemia History ----- --------- OB History 4. Para 3 [id number] Maternal Assessment ----- --------- Physical Exam Height [...] EFW (oz) 5 oz EFW by: Hadlock ([id number]) Extended Tibia 42.4 mm 26w 2d 4% Cyndie Fibula 41.8 mm 25w 6d 18% Cyndie Radius 38.7 mm 12% Chitty Ulna 41.6 mm 27w 0d 5% Cyndie Toy Designer 5.6 mm CM 7.9 mm 81% Nicolaides [...] view. RVOT view. LVOT view. 3-vessel view. 4-fndfkc-osygzsk view. Situs. Aortic arch view. Bicaval view. [...] primary OB provider unless otherwise specified by [facility]. Procedure Note Allan Yepez MD - 07/22/2024 NAME: JAYSON BRENNER : 2005 SEX: F Accession Number: [id number] ORDERING PHYSICIAN: ALLAN YEPEZ REFERRING PHYSICIAN: DOMINGUEZ HOGAN Coding ----- --------- Procedures 90858: Ultrasound, uterus, real time with imagedocumentation, and maternal evaluation plus detailed anatomic examination, transabdominalapproach;single or first gestation Indication ----- --------- Screening for Anatomic Survey , Screening for IUGR , Maternal anemia History ----- --------- OB History 4. Para 3 [id number] Maternal Assessment ----- --------- Physical Exam Height [...] EFW (oz) 5 oz EFW by: Hadlock ([id number]) Extended Tibia 42.4 mm 26w 2d 4% Cyndie Fibula 41.8 mm 25w 6d 18% Cyndie Radius 38.7 mm 12% Chitty Ulna 41.6 mm 27w 0d 5% Cyndie Toy Designer 5.6 mm CM 7.9 mm 81% Nicolaides [...] 4-chamber view. RVOT view. LVOT view. 3-vessel view.9-ipfdlt-ylzirjt view. Situs. Aortic arch view. Bicaval view. [...] byprimary OB provider unless otherwise specified by [facility]. us Allan Yepez MD [facility] US ORDERABLES Final Resul t * Ultrasound [...] Name:Karla Kidd Payer ID:Not on file Group ID:[id number] Type:Not on file Address: [address] [place] [id number]
--- OUTSIDE RECORDS SUMMARY | 2024-08-26 01:45 | XMS_ITS | Encounter Summary ---
Author Organization [facility] Address [address] [place] [address] Care Team Providers Care Shift Superintendent Caustic Cresylate Name Role Phone Sadie Thomas MD Primary Care Provider [phone] Katharine Olivarez DRUM SEALER Unavailable [phone] Encounter Details Date Type Department Care Team (Late st Contact Info) Description 08/19/2024 Bamboo flowsheet [facility] [address] [place] [address] Jerry Wilson, DO [address] [place], [place] [id number] Social History Tobacco Use Types Packs/Day Years [...] often do you attend chur ch or oriental orthodox services? Never 03/15/2023 Do you belong to any clubs o r organizations such as quaker groups, unions, fraternal or athletic groups, or [...] Recorded Patient Health Questionnaire-2 Score 0 03/15/2023 [facility] ional [facility] - Occupational [...] AM EDT Routine [facility] [address] [place] [address] Jerry Wilson, DO [address] [place], [place] [id number] documented as of this encounter Visit Diagnoses Not on filedocumented in this encounter Care Teams Shift Superintendent Caustic Cresylate Relationship Specialty Start Date End Date Sadie Thomas MD [address] [place] [address] PCP - General Family Medicine 10/22/23 Katharine Olivarez NP [address] [place] [address] Nurse Practitioner Family Medicine 10/22/23 documented as of this encounter
--- OUTSIDE RECORDS SUMMARY | 2024-08-26 01:45 | XMS_ITS | Encounter Summary ---
Author Organization [facility] Address [address] [facility] [place] [address] Care Team Providers Care Rv Servicer Name Role Phone Sadie Thomas MD Primary Care Provider [phone] Katahrine Olivarez SOFTWARE ARCHITECT Unavailable [phone] Encounter Details Date Type Department Care Team (Late st Contact Info) Description 05/19/2024 Abstract [facility] [address] [place] [address] Jerry Wilson, DO [address] [place] [address] Social History Tobacco Use Types Packs/Day Years [...] often do you attend chur ch or amish services? Never 03/15/2023 Do you belong to any clubs o r organizations such as zoroastrian groups, unions, fraternal or athletic groups, or [...] Recorded Patient Health Questionnaire-2 Score 0 03/15/2023 [facility] of Occupat ional Health - Occupational [...] OB [address] [place] [address] Jerry Wilson DO [address] [place] [address] documented as of this encounter Visit Diagnoses Not on filedocumented in this encounter Care Teams Rv Servicer Relationship Specialty Start Date End Date Sadie Thomas MD [address] [place] [address] PCP - General Family Medicine 10/22/23 Katharine Olivarez SOFTWARE ARCHITECT [address] [place] [address] Nurse Practitioner Family Medicine 10/22/23 documented as of this encounter
--- OUTSIDE RECORDS SUMMARY | 2024-08-26 01:45 | XMS_ITS | Clinical Summary ---
Author Organization [facility] Address [address] [place] [address] Care Team Providers Care Commercial Lines Manager Name Role Phone Sadie Thomas MD Primary Care Provider [phone] Katharine Olivarez NP Unavailable [phone] Allergies Active Allergy Reactions Criticality Noted Date Comments Amoxicillin 06/24/2024 Medications Vit-Fe Fumarate-FA ( Vitamins) 28-0.8 MG tabletIndication s:Missed menses, , unspecified gestational age ([facility]),Encoun ter for supervision of normal first in first trimester ([facility]) Take 1 tablet by mouth Daily [...] Encounters Date Type Department Care Team Description 08/19/2024 1:50 PM EDT Routine [facility] [address] [place] [address] [place] [address] Dominguez Wilson, Third trimester ([facility]); 32 weeks gestation of ([facility]) 08/19/2024 Bamboo flowsheet [facility] [address] [place] [address] [place] [address] Dominguez Wilson, DO 08/14/2024 Clinisync Result Encounter [...] PA 08/05/2024 9:50 AM EDT Routine [facility] [address] [place] [address] Holli Roque PA Right otitis media, unspecified otitis media type (Primary Dx); Third trimester ([facility]); 30 weeks gestation of ([facility]); SGA (small for gestational age) ([facility]) 08/05/2024 Bamboo flowsheet [facility] [address] [place] [address] Holli Roque PA 07/23/2024 Abstract [facility] [address] [place], [place] [address] [address] Dominguez Wilson, DO 07/22/2024 1:20 PM EDT Routine [facility] [place] [address] [address] Dominguez Wilson, DO Third trimester ([facility]); 28 weeks gestation of ([facility]); SGA (small for gestational age) ([facility]) 07/22/2024 Bamboo flowsheet [facility] [place] [address] Dominguez Wilson, DO 07/04/2024 Clinisync Result Encounter [facility] External Department Unsolicited Dominguez Wilson, DO 06/24/2024 1:50 PM EDT Routine [facility] [address] [place] [address] Dominguez Wilson DO 24 weeks gestation of ([facility]); Second trimester ([facility]) 06/24/2024 Bamboo flowsheet [facility] [address] [place] [address] Dominguez Wilson, 06/19/2024 Abstract [facility] [address] [place] [address] Saadia Heck, ALBINO 06/19/2024 Patient Outreach [facility] [address] [place] [address] Holli Avilez, GAS LEAK INSPECTOR 06/18/20[address] [facility] [address] [place] [address] Blossom Wills MA 06/09/2024 10:50 AM EDT Office Visit [facility] [address] [place] [address] Dominguez Wilson, SOB (shortness of breath); Follow-up exam; Nausea and vomiting, unspecified vomiting type 06/09/20[address] [facility] [address] [place] [address] Holli Roque PA 06/09/2024 Bamboo flowsheet [facility] [address] [place] [address] Dominguez Wilson, 06/06/20[address] [facility] [address] [place] [address] Dominguez Wilson, 06/05/[address] [facility] [address] [place] [address] Tamy Juarez MA 06/04/2024 Abstract [facility] [address] [place] [address] Dominguez Wilson, 06/04/2024 Clinisync Result Encounter [facility] External Department Unsolicited Dominguez Wilson, DO 06/02/20[address] Telephone [facility] [address] [place] [address] Tamy Juarez MA 05/30/2024 Results Follow-Up [facility] [address] [place] [address] Fabiola Callahan LPN SGA (small for gestational age) ([facility]) 05/30/2024 Telephone [facility] [address] [place] [address] [place] [address] Fabiola Callahan LPN 05/27/2024 Abstract [facility] [address] [place] [address] Dominguez Wilson, 05/27/2024 Clinisync Result Encounter [facility] External Department Unsolicited Dominguez Wilson, 05/27/2024 Clinisync Result Encounter [facility] External Department Unsolicited Dominguez Wilson, DO from Last 3 Months Family History [...] often do you attend chur ch or hindu services? Never 03/15/2023 Do you belong to any clubs o r organizations such as restorationist groups, unions, fraternal or athletic groups, or [...] Recorded Patient Health Questionnaire-2 Score 0 [facility] Answer [...] Pressure 120/60 08/19/2024 1:51 PM EDT Pulse 74 10/16/2023 2:13 PM EDT Temperature 36.8 C (98.2 F) 10/16/2023 2:13 PM EDT Respiratory Rate - - Oxygen Saturation 98% 10/16/2023 2:13 PM EDT Inhaled Oxygen Concentration - - Weight 80.3 kg (177 lb) 08/19/2024 1:51 PM EDT Height 162.6 cm (5' 4 ) 10/16/2023 2:13 PM EDT Body Mass Index 30.38 10/16/2023 2:13 PM EDT Plan of Treatment Upcoming Encounters Date Type Department Care Team (Late st Contact Info) Description 09/02/2024 10:00 AM EDT Routine [facility] [address] [place] [address] Dominguez Wilson, DO [address] [facility] [place] [address] Health Maintenance Due Date Last Done Comments Influenza Vaccine (#1) 2024 Procedures Procedure Name Priority Date/Time Associated Diagnosis Comments POCT URINALYSIS DIPSTICK Routine 08/19/2024 1:58 PM EDT Third trimester ([facility]) US OB BPP W NON-STRESS 08/14/2024 9:23 AM EDT US OB CERVICAL LENGTH 08/14/2024 9:23 AM EDT US OB PLACENTA 08/14/2024 9:23 AM EDT TBH URINE MICROSCOPIC ONLY Routine 08/14/2024 1:00 AM EDT TBH UA (CLEAN/CATCH) PSYCHOMETRIC EXAMINER/MICRO IF IND. Routine 08/14/2024 1:00 AM EDT US OB BPP W NON-STRESS 08/07/2024 7:26 PM EDT POCT URINALYSIS DIPSTICK Routine 07/22/2024 1:34 PM EDT Third trimester ([facility]) ALL CBC WITH AUTO DIFF Routine 07/04/2024 9:50 AM EDT GLUCOSE 1 HOUR Routine 07/04/2024 9:50 AM EDT US OB GROWTH 07/04/2024 9:47 AM EDT POCT URINALYSIS DIPSTICK Routine 06/24/2024 1:55 PM EDT 24 weeks gestation of ([facility]) Second trimester ([facility]) CCF LIPASE Routine 06/04/2024 4:08 AM EDT ALL AMYLASE Routine 06/04/2024 4:08 AM EDT CCF CMP (CMP) (FOR REMOTE [facility] USE) Routine 06/04/2024 4:08 AM EDT ALL CBC WITH AUTO DIFF Routine 06/04/2024 4:08 AM EDT TBH URINE MICROSCOPIC ONLY Routine 06/04/2024 3:05 AM EDT TBH UA (CLEAN/CATCH) PSYCHOMETRIC EXAMINER/MICRO IF IND. Routine 06/04/2024 3:05 AM EDT US OB ANATOMY 05/27/2024 3:59 PM EDT US OB CERVICAL LENGTH 05/27/2024 3:54 PM EDT from Last 3 Months Results * POCT urinalysis dipstick manually resulted (08/19/2024 1:58 PM EDT) Only the most recent of3 [...] - Positive Urine 08/19/2024 1:58 PM EDT Dominguez Wilson DO POINT OF CARE TEST ENTER/EDIT OR DERABLES Final Result * US OB PLACENTA (08/14/2024 9:23 AM EDT) Anatomical Region Laterality Modality Other 08/14/2024 9:23 AM EDT Narrative 08/14/2024 9:[place] [address] Ultrasound Report Signed Patient: KARLA TYLER MR#: [id number] : 2005 Acct:[id number] Age/Sex: 19 / F ADM Date: Loc: [facility] 250-[address]: Dominguez Wilson D.O. Ordering Physician: Domingeuz Wilson D.O. Date of Service: 08/14/24 Procedure(s): US OB placenta Accession Number(s): [id number] cc: Dominguez Wilson D.O.; Physician,Non-Staff M.DFarzad [place] [address] Patient Name: KARLA TYLER MRN: [id number]:[id number] date: 2005 Sex: F Assigned Patient Location: [facility] Current Patient Location: Accession/Order Number: [id number] Exam Date: 08/14/2024 09:18 Report Date: 08/14/2024 09:23 At the request of: DOMINGUEZ WILSON DO Procedure: US OB cervical length CLINICAL DATA: SGA. Contractions. BIOPHYSICAL PROFILE: COMPARISON: 08/07/2024 There is a single live intrauterine gestation in breech presentation. The reported gestational age is 31 weeks 4 days.. The heart rate [id number] beats per minute. FINDINGS: TONE: 1 or [...] Roe M.D. 08/14/2024 9:23 AM Dictation Location: [place] [address] Electronically authenticated by: [id number] Y Date: 08/14/2024 09:23 Dictated By: Tavia Roe M.D. Signed By: 08/14/24925 DD/ 2 TD/TT: Pai Gow Manager: Procedure Note Radiology, Radiologist, MD - 08/14/2024 [place] [address] Ultrasound Report Signed Patient: KARLA TYLER AMR#: [id number] : 2005Acct:[id number] Age/Sex: M Date: Loc: [place] [address]: Dominguez Wilson D.O. Ordering Physician: Dominguez Wilson D.O. Date of Service: 08/14/24 Procedure(s): US OB placenta Accession Number(s): [id number] cc: Dominguez Wilson D.O.; Physician,Non-Staff Christine The [place] [address] Patient Name: KARLA TYLER MRN: TBH:[id number] date: 2005 Sex: F Assigned Patient Location: [facility] Current Patient Location: Accession/Order Number: [id number] Exam Date: 08/14/2024 09:18 Report Date: 08/14/2024 09:23 At the request of: DOMINGUEZ WILSON DO Procedure: US OB cervical length CLINICAL DATA: SGA. Contractions. BIOPHYSICAL PROFILE: COMPARISON: 08/07/2024 There is a single live intrauterine gestation in breech presentation. The reported gestational age is 31 weeks 4 days.. The heart rate [id number] beats per minute. FINDINGS: TONE: 1 or [...] Roe M.D. 08/14/2024 9:23 AM Dictation Location: [place] [address] Electronically authenticated by: [id number] Y Date: :23 Dictated By: Tavia Roe M.D. Signed By:08/14/24925 DD/ 2 TD/TT: Pai Gow Manager: us Dominguez Steve DO CLINISYNC IMAGING Final Result * US OB BPP W NON-STRESS (08/14/2024 9:23 AM EDT) Only the most recent of2 resultswithin the time period is included. Anatomical Region Laterality Modality Other 08/14/2024 9:23 AM EDT Narrative 08/14/2024 9:26 AM EDT The [address] [address] Ultrasound Report Signed Patient: KARLA TYLER MR#: [id number] : 2005 Acct:[id number] Age/Sex: 19 / F ADM Date: Loc: [facility] 250-[address]: Dominguez Wilson D.O. Ordering Physician: Dominguez Wilson D.O. Date of Service: 08/14/24 Procedure(s): US OB BPP w non-stress Accession Number(s): [id number] cc: Dominguez Wilson D.O.; Physician,Non-Staff MArleth [place] [address] Patient Name: KARLA TYLER MRN: [facility]:[id number] date: 2005 Sex: F Assigned Patient Location: [facility] Current Patient Location: Accession/Order Number: [id number] Exam Date: 08/14/2024 09:18 Report Date: 08/14/2024 [...] Roe M.D. 08/14/2024 9:23 AM Dictation Location: [place] [address] Electronically authenticated by: [id number] Y Date: 08/14/2024 09:23 Dictated By: Tavia Roe M.D. Signed By: 08/14/24925 DD/ 2 TD/TT: Pai Gow Manager: Procedure Note Radiology, Radiologist, - 08/14/2024 [place] [address] Ultrasound Report Signed Patient: KARLA TYLER AMR#: [id number] : 2005Acct:[id number] Age/Sex: M Date: Loc: [facility] 250-[address]: Dominguez Wilson D.O. Ordering Physician: Dominguez Wilson D.O. Date of Service: 08/14/24 Procedure(s): US OB BPP w non-stress Accession Number(s): [id number] cc: Dominguez Wilson D.O.; Physician,Non-Staff Christine The [place] [address] Patient Name: KARLA TYLER MRN: [facility]:[id number] date: 2005 Sex: F Assigned Patient Location: [facility] Current Patient Location: Accession/Order Number: [id number] Exam Date: 08/14/2024 09:18 Report Date: 08/14/2024 09:23 At the request of: DOMINGUEZ WILSON DO Procedure: US OB cervical length CLINICAL DATA: SGA. Contractions. BIOPHYSICAL PROFILE: COMPARISON: 08/07/2024 There is a single live intrauterine gestation in breech presentation. The reported gestational age is 31 weeks 4 days.. The heart rate [id number] beats per minute. FINDINGS: TONE: 1 or [...] Roe M.D. 08/14/2024 9:23 AM Dictation Location: [place] [address] Electronically authenticated by: [id number] Y Date: :23 Dictated By: Tavia Roe M.D. Signed By:08/14/24925 DD/ 2 TD/TT: Pai Gow Manager: us Dominguez Wilson DO CLINISYNC IMAGING Final Result * US OB CERVICAL LENGTH (08/14/2024 9:23 AM EDT) Only the most recent of2 resultswithin the time period is included. Anatomical Region Laterality Modality Other 08/14/2024 9:23 AM EDT Narrative 08/14/2024 9:26 [place] [address] Ultrasound Report Signed Patient: KARLA TYLER MR#: [id number] : 2005 Acct:[id number] Age/Sex: 19 / F ADM Date: Loc: [facility] 250- Attending Dr: Dominguez Wilson D.O. Ordering Physician: Dominguez Wilson D.O. Date of Service: 08/14/24 Procedure(s): US OB cervical length Accession Number(s): [id number] cc: Dominguez Wilson D.O.; Physician,Non-Staff Christine The [address] [address] Patient Name: KARLA TYLER MRN: TBH:[id number] date: 2005 Sex: F Assigned Patient Location: [facility] Current Patient Location: Accession/Order Number: [id number] Exam Date: 08/14/2024 09:18 Report Date: 08/14/2024 09:23 At the request of: DOMINGUEZ WILSON DO Procedure: US OB cervical length CLINICAL DATA: SGA. Contractions. BIOPHYSICAL PROFILE: COMPARISON: 08/07/2024 There is a single live intrauterine gestation in breech presentation. The reported gestational age is 31 weeks 4 days.. The heart rate [id number] beats per minute. FINDINGS: TONE: 1 or [...] Roe M.D. 08/14/2024 9:23 AM Dictation Location: [place] [address] Electronically authenticated by: [id number] Y Date: 08/14/2024 09:23 Dictated By: Tavia Roe M.D. Signed By: 08/14/24925 DD/ 2 TD/TT: Pai Gow Manager: Procedure Note Radiology, Radiologist, - 08/14/2024 [place] [address] Ultrasound Report Signed Patient: KARLA TYLER#: [id number] : 2005Acct:[id number] Age/Sex: 19 / FADM Date: Loc: [facility] 250-[address]: Dominguez Wilson D.O. Ordering Physician: Dominguez Wilson D.O. Date of Service: 08/14/24 Procedure(s): US OB cervical length Accession Number(s): [id number] cc: Dominguez Wilson D.O.; Physician,Non-Staff M.DFarzad [place] [address] Patient Name: KARLA TYLER MRN: TBH:[id number] date: 2005 Sex: F Assigned Patient Location: [facility] Current Patient Location: Accession/Order Number: [id number] Exam Date: 08/14/2024 09:18 Report Date: 08/14/2024 09:23 At the request of: DOMINGUEZ WILSON DO Procedure: US OB cervical length CLINICAL DATA: SGA. Contractions. BIOPHYSICAL PROFILE: COMPARISON: 08/07/2024 There is a single live intrauterine gestation in breech presentation. The reported gestational age is 31 weeks 4 days.. The heart rate [id number] beats per minute. FINDINGS: TONE: 1 or [...] Roe M.D. 08/14/2024 9:23 AM Dictation Location: [place] [address] Electronically authenticated by: [id number] Y Date: :23 Dictated By: Tavia Roe M.D. Signed By:08/14/24925 DD/ 2 TD/TT: Pai Gow Manager: us Dominguez Steve DO CLINISYNC IMAGING Final Result * (ABNORMAL) TBH URINE MICROSCOPIC ONLY (08/14/2024 1:00 AM EDT) Only the most recent of2 resultswithin the time period is included. TBH WBC 2-5(A) NONE SEEN #/HPF TBH [...] Narrative CLINISYNC - 08/14/2024 1:24 AM EDT Dominguez Steve DO CLINISYNC Final Result CLINISYNC TB * (ABNORMAL) TBH UA (CLEAN/CATCH) PSYCHOMETRIC EXAMINER/MICRO IF IND. (08/14/2024 1:00 AM EDT) Only the most recent of2 resultswithin the time period is included. COLOR URINE YELLOW YELLOW TBH CLARITY URINE [...] us Dominguez Steve DO CLINISYNC Final Result [facility] * GLUCOSE 1 HOUR (07/04/2024 9:50 AM EDT) GLUCOSE 1 HOUR 103 <130 mg/dL TBH 07/04/2024 9:50 AM EDT 07/04/2024 9:52 AM EDT Narrative CLINISYNC - 07/04/2024 10:07 AM EDT Dominguez Steve DO LAB BLOOD ORDERABLES Final Resul t Performing Organization Address City/[facility]/ZIP Co de Phone Number [facility] * (ABNORMAL) ALL CBC WITH AUTO DIFF [...] us Dominguez Wilson DO CLINISYMIHAI Final Result [facility] * US OB GROWTH (07/04/2024 9:47 AM EDT) Anatomical Region Laterality Modality Other 07/04/2024 9:47 AM EDT Narrative 07/04/2024 9:49 [place] [address] Ultrasound Report Signed Patient: KARLA TYLER MR#: [id number] : 2005 Acct:[id number] Age/Sex: 19 / F ADM Date: 07/04/24 Loc: US Attending Dr: Dominguez Wilson D.O. Ordering Physician: Dominguez Wilson D.O. Date of Service: 07/04/24 Procedure(s): US OB growth Accession Number(s): [id number] cc: Dominguez Wilson D.O.; Physician,Non-Staff Christine The [address] [address] Patient Name: KARLA TYLER MRN: [facility]:[id number] date: 2005 Sex: F Assigned Patient Location: US Current Patient Location: US Accession/Order Number: [id number] Exam Date: 07/04/2024 09:40 Report Date: 07/04/2024 [...] Roe M.D. 07/04/2024 9:47 AM Dictation Location: [place] [address] Electronically authenticated by: [id number] Y Date: 07/04/2024 09:47 Dictated By: Tavia Roe M.D. Signed By: 07/04/24 0949 DD/ TD/TT: Pai Gow Manager: Procedure Note Radiology, Radiologist, - 07/04/2024 [place] [address] Ultrasound Report Signed Patient: KARLA TYLER AMR#: [id number] : 2005Acct:[id number] Age/Sex: 19 / FADM Date: 07/04/24 Loc: US Attending Dr: Dominguez Wilson D.O. Ordering Physician: Dominguez Wilson D.O. Date of Service: 07/04/24 Procedure(s): US OB growth Accession Number(s): [id number] cc: Dominguez Wilson D.O.; Physician,Non-Staff Christine The [place] [address] Patient Name: KARLA TYLER MRN: [id number] date: 2005 Sex: F Assigned Patient Location: Current Patient Location: US Accession/Order Number: [id number] Exam Date: 07/04/2024 09:40 Report Date: 07/04/2024 [...] Roe M.D. 07/04/2024 9:47 AM Dictation Location: [place] [address] Electronically authenticated by: [id number] Y Date: 9:47 Dictated By: Tavia Roe M.D. Signed By:07/04/2449 DD/ 6 TD/TT: Pai Gow Manager: us Dominguez Steve DO CLINISYNC IMAGING Final Result * CCF LIPASE (06/04/2024 4:08 AM EDT) LIPASE 29.0 16.0 - 77.0 U/L TBH 06/04/2024 4:08 AM EDT 06/04/2024 4:29 AM EDT Narrative CLINISYNC - 06/04/2024 4:51 AM EDT us Dominguez Steve DO CLINISYNC Final Result [facility] TB * (ABNORMAL) CCF CMP (CMP) (FOR REMOTE [facility] USE) (06/04/2024 4:08 AM EDT) SODIUM [...] 0.55 - 1.02 mg/dL TBH TBH EGFR-AF SLOVAK >60 >=60 mL/min/1. 73m 2 TBH TBH EGFR-NON AF SLOVAK >60 >=60 mL/min/1. 73m 2 TBH BUN [...] us Dominguez Steve DO CLINISYNC Final Result Performing Organization Address [facility] Co de Phone Number [facility] * ALL AMYLASE (06/04/2024 4:08 AM EDT) AMYLASE 51 25 - 115 U/L [facility] 06/04/2024 4:08 AM EDT 06/04/2024 4:29 AM EDT Narrative CLINISYNC - 06/04/2024 4:51 AM EDT Dominguez Steve DO CLINISYNC Final Result Performing Organization Address [facility] Phone Number [facility] * US OB ANATOMY (05/27/2024 3:59 PM EDT) Anatomical Region Laterality Modality Other 05/27/2024 3:59 PM EDT Narrative 05/27/2024 4:02 [place] [address] Ultrasound Report Signed Patient: KARLA TYLER MR#: [id number] : 2005 Acct:[id number] Age/Sex: 19 / F ADM Date: 05/27/24 Loc: US Attending Dr: Dominguez Wilson D.O. Ordering Physician: Dominguez Wilson D.O. Date of Service: 05/27/24 Procedure(s): US OB anatomy Accession Number(s): [id number] cc: Dominguez Wilson D.O.; Physician,Non-Staff M.DFarzad [place] [id number] Patient Name: KARLA TYLER MRN: [id number]:[id number] date: 2005 Sex: F Assigned Patient Location: US Current Patient Location: US Accession/Order Number: [id number] Exam Date: 05/27/2024 15:55 Report Date: 05/27/2024 [...] Vijay Castaneda M.D.05/27/2024 3:59 PM Dictation Location: [place] [address] Electronically authenticated by: [id number] Y Date: 05/27/2024 15:59 Dictated By: Vijay Castaneda D.O. Signed By: 05/27/24 1602 DD/ 7047 TD/TT: Pai Gow Manager: Procedure Note Radiology, Radiologist, - 05/27/[address] [address] Ultrasound Report Signed Patient: KARLA TYLER AMR#: [id number] : 2005Acct:[id number] Age/Sex: 19 / FADM Date: 05/27/24 Loc: US Attending Dr: Dominguez Wilson D.O. Ordering Physician: Dominguez Wilson D.O. Date of Service: 05/27/24 Procedure(s): US OB anatomy Accession Number(s): [id number] cc: Dominguez Wilson D.O.; Physician,Non-Staff Christine The [place] [address] Patient Name: KARLA TYLER MRN: [id number] date: 2005 Sex: F Assigned Patient Location: US Current Patient Location: US Accession/Order Number: [id number] Exam Date: 05/27/2024 15:55 Report Date: 05/27/2024 [...] The estimated weight is 295 g. with dqzrjpseow24.9%. The ovaries are not visualized. No fluid [...] Vijay Castaneda M.D.05/27/2024 3:59 PM Dictation Location: [place] [address] Electronically authenticated by: [id number] Y Date: 5:59 Dictated By: Vijay Castaneda D.O. Signed By:05/27/24 1602 DD/ 1559 TD/TT: Pai Gow Manager: us Dominguez Steve DO CLIN[facility] IMAGING Final Result from Last 3 Months Insurance [employer] [place] Care Teams Commercial Lines Manager Relationship Specialty Start Date End Date Sadie Thomas MD [address] [place] [address] PCP - General Family Medicine 10/22/23 Katharine Olivarez NP [address] [place] [address] Nurse Practitioner Family Medicine 10/22/23
--- OUTSIDE RECORDS SUMMARY | 2024-08-26 01:45 | XMS_ITS | Encounter Summary ---
Author Organization [facility] Address [address] [place] [address] Care Team Providers Care Resource Room Special Education Teacher Name Role Phone Sadie Thomas MD Primary Care Provider Katharine Olivarez NP Unavailable [phone] Encounter Details Date Type Department Care Team (Late st Contact Info) Description 08/14/2024 Clinisync Result Encounter [facility] External Department Unsolicited Dominguez Wilson, [address] [facility] [place] [address] Social History Tobacco Use Types Packs/Day Years [...] often do you attend chur ch or presybeterian services? Never 03/15/2023 Do you belong to any clubs o r organizations such as christian groups, unions, fraternal or athletic groups, or [...] [facility] - [...] AM EDT Routine [facility] OB [address] [place] [phone] Dominguez Wilson, DO [address] [facility] [place] [address] documented as of this encounter Procedures Procedure Name Priority Date/Time Associated Diagnosis Comments US OB CERVICAL LENGTH 08/14/2024 9:23 AM EDT documented in this encounter Results * US OB CERVICAL LENGTH (08/14/2024 9:23 AM EDT) Anatomical Region Laterality Modality Other 08/14/2024 9:23 AM EDT Narrative 08/14/2024 9:26 AM EDT The [address] [address] Ultrasound Report Signed Patient: JORDIN KIDD MR#: [id number] : 2005 Acct:[id number] Age/Sex: 19 / F ADM Date: Loc: [facility] 250-[address]: Dominguez Wilson D.O. Ordering Physician: Dominguez Wilson D.O. Date of Service: 08/14/24 Procedure(s): US OB cervical length Accession Number(s): [id number] cc: Dominguez Wilson D.O.; Physician,Non-Staff [place] [address] Patient Name: JORDIN KIDD MRN: [id number] date: 2005 Sex: F Assigned Patient Location: [facility] Current Patient Location: Accession/Order Number: [id number] Exam Date: 08/14/2024 09:18 Report Date: 08/14/2024 09:23 At the request of: DOMINGUEZ WILSON DO Procedure: US OB cervical length CLINICAL DATA: SGA. Contractions. BIOPHYSICAL PROFILE: COMPARISON: 08/07/2024 There is a single live intrauterine gestation in breech presentation. The reported gestational age is 31 weeks 4 days.. The heart rate [id number] beats per minute. FINDINGS: TONE: 1 or [...] Roe M.D. 08/14/2024 9:23 AM Dictation Location: [place] [address] Electronically authenticated by: [id number] Y Date: 08/14/2024 09:23 Dictated By: Tavia Roe M.D. Signed By: 08/14/24925 DD/ 2 TD/TT: Vice President Payment: Procedure Note Radiology, Radiologist, MD - 08/14/2024 [place] [address] Ultrasound Report Signed Patient: JORDIN KIDD AMR#: [id number] : 2005Acct:[id number] Age/Sex: 19 / FADM Date: Loc: [facility] 250-[address]: Dominguez Wilson D.O. Ordering Physician: Dominguez Wilson D.O. Date of Service: 08/14/24 Procedure(s): US OB cervical length Accession Number(s): [id number] cc: Dominguez Wilson D.O.; Physician,Non-Staff Christine The [place] [id number] Patient Name: JORDIN KIDD MRN: [id number] date: 2005 Sex: F Assigned Patient Location: [facility] Current Patient Location: Accession/Order Number: [id number] Exam Date: 08/14/2024 09:18 Report Date: 08/14/2024 [...] Roe M.D. 08/14/2024 9:23 AM Dictation Location: [place] [address] Electronically authenticated by: [id number] Y Date: 9:23 Dictated By: Tavia Roe M.D. Signed By:08/14/24925 DD/ 2 TD/TT: Vice President Payment: us Dominguez Steve DO [facility] Final Result documented in this encounter Visit Diagnoses Not on filedocumented in this encounter Care Teams Resource Room Special Education Teacher Relationship Specialty Start Date End Date Sadie Thomas MD [address] [place] [address] PCP - General Family Medicine 10/22/23 Katharine Olivarez NP [address] [place] [address] Nurse Practitioner Family Medicine 10/22/23 documented as of this encounter
--- OUTSIDE RECORDS SUMMARY | 2024-08-26 01:45 | XMS_ITS | Encounter Summary ---
Author Organization [facility] Address [address] [place] [address] Care Team Providers Care Furnace Repairer Name Role Phone Sadie Thomas MD Primary Care Provider [phone] Katharine Olivarez NP Unavailable Encounter Details Date Type Department Care Team (Late st Contact Info) Description 08/14/2024 Clinisync Result Encounter [facility] External Department Unsolicited Dominguez Wilson, [address] [facility] [place] [address] Social History Tobacco Use Types Packs/Day Years [...] any clubs o r organizations such as christianity groups, unions, fraternal or athletic groups, or [...] Recorded Patient Health Questionnaire-2 Score 0 03/15/2023 [facility] - [...] AM EDT Routine [facility] B[facility] OB [address] [facility] [place] [phone] Dominguez Wilson, DO [address] [place] [address] [place] [address] documented as of this encounter Procedures Procedure Name Priority Date/Time Associated Diagnosis Comments US OB PLACENTA 08/14/2024 9:23 AM EDT documented in this encounter Results * US OB PLACENTA (08/14/2024 9:23 AM EDT) Anatomical Region Laterality Modality Other 08/14/2024 9:23 AM EDT Narrative 08/14/2024 9:26 [place] [address] Ultrasound Report Signed Patient: JORDIN KIDD MR#: [id number] : 2005 Acct:[id number] Age/Sex: 19 / F ADM Date: Loc: [facility] 250-[address]: Dominguez Wilson D.O. Ordering Physician: Dominguez Wilson D.O. Date of Service: 08/14/24 Procedure(s): US OB placenta Accession Number(s): [id number] cc: Dominguez Wilson D.O.; Physician,Non-Staff M.[place]ba The [place] [address] Patient Name: JORDIN KIDD MRN: [facility]:[id number] date: 2005 Sex: F Assigned Patient Location: [facility] Current Patient Location: Accession/Order Number: [id number] Exam Date: 08/14/2024 09:18 Report Date: 08/14/2024 09:23 At the request of: DOMINGUEZ WILSON DO Procedure: US OB cervical length CLINICAL DATA: SGA. Contractions. BIOPHYSICAL PROFILE: COMPARISON: 08/07/2024 There is a single live intrauterine gestation in breech presentation. The reported gestational age is 31 weeks 4 days.. The heart rate [id number] beats per minute. FINDINGS: TONE: 1 or [...] Roe M.D. 08/14/2024 9:23 AM Dictation Location: [place] [address] Electronically authenticated by: [id number] Y Date: 08/14/2024 09:23 Dictated By: Tavia Roe M.D. Signed By: 08/14/24925 DD/ 2 TD/TT: Technical System Analyst: Procedure Note Radiology, Radiologist, MD - 08/14/2024 [place] [address] Ultrasound Report Signed Patient: JORDIN KIDD AMR#: [id number] : 2005Acct:[id number] Age/Sex: 19 FADM Date: Loc: [facility] 250- Attending Dr: Dominguez Wilson D.O. Ordering Physician: Dominguez Wilson D.O. Date of Service: 08/14/24 Procedure(s): US OB placenta Accession Number(s): [id number] cc: Dominguez Wilson D.O.; Physician,Non-Staff Christine The [place] [id number] Patient Name: JORDIN KIDD MRN: [id number] date: 2005 Sex: F Assigned Patient Location: [facility] Current Patient Location: Accession/Order Number: [id number] Exam Date: 08/14/2024 09:18 Report Date: 08/14/2024 09:23 At the request of: DOMINGUEZ WILSON DO Procedure: US OB cervical length CLINICAL DATA: SGA. Contractions. BIOPHYSICAL PROFILE: COMPARISON: 08/07/2024 There is a single live intrauterine gestation in breech presentation. The reported gestational age is 31 weeks 4 days.. The heart rate [id number] beats per minute. FINDINGS: TONE: 1 or [...] Roe M.D. 08/14/2024 9:23 AM Dictation Location: [place] [address] Electronically authenticated by: [id number] Y Date: 9:23 Dictated By: Tavia Roe M.D. Signed By:08/14/24925 DD/ 2 TD/TT: Technical System Analyst: us Dominguez Steve DO [facility] Final Result documented in this encounter Visit Diagnoses Not on filedocumented in this encounter Care Teams Furnace Repairer Relationship Specialty Start Date End Date Sadie Thomas MD [address] [place] [address] PCP - General Family Medicine 10/22/23 Katharine Olivarez NP [address] [place] [address] Nurse Practitioner Family Medicine 10/22/23 documented as of this encounter
--- OUTSIDE RECORDS SUMMARY | 2024-08-26 01:46 | XMS_ITS | CCD ---
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 Name Role Phone WAN VASQUEZ Consulting Unavailable JUANCHO, DR RUIZ Primary Care Unavailable KUNAL FRANK Attending Unavailable KUNAL FRANK Admitting Unavailable CY HERNANDEZ Consulting Unavailable KUNAL FRANK Consulting Unavailable NONE, XXXX Primary Care Physician Holli Garvin Primary Care Physician [phone] Vijay PACHECO Primary Care Physician [phone] Kourtney PIERCE Unavailable [facility], [facility] Primary Care Physician Eamon Stahllocatmeseret, Noms Provider Primary Care Provider Ras Miller Attending Unavailable Jerry WILSON Admitting Unavailable HELIO PIERCE Attending Unavaila ble PIERCEHELOI Admitting Unavaila ble DO Magalis Snow Attending [...] Magalis Cortes Attending Unavaila ble DO Magalis Snow Admitting Unavaila ble Aleshalocatmeseret CASE, Noms Provider Primary Care Provi nani John Paul Lovell MD Primary Care Provider [phone] Wil Rider MD Attending Provider Wil Rider Attending Unavailab Wil Loco Admitting Unavailab John Paul Duncan Primary Care Unavailable Sadie Thomas MD Primary Care Provider Sher MENDEZ, Mak Mendez Unavailable [phone] Eduardo WRAY Attending Unavailable Eduardo WRAY Attending Unavailable Unavailable Primary Care Provider Unavailjocelin e JERRY WILSON Referring Unavailable JERRY WISLON Attending Unavailable STEVE, JERRY Attending Unavailable JERRY WILSON Attending Unavailable STEVE, JERRY Attending Unavailable MAGALIS SNOW Attending Unavailable MAK JORDAN Attending Unavailable HOLLI ROQUE Attending Unavailable JERRY WILSON Attending Unavailable Allergies Allergy Classification Reported Allergen(s) Allergy Type Date of Onset Reaction(s) Facility (7 sources) No Known Medication Allergies; Translations: [No Known Medication Allergies] Propensity to adverse reactions (disorder) [facility] Repository (20 sources) Amoxicillin; Translations: [amoxicillin] Drug Allergy 5 Unknown (qualifier value) [facility] (3 sources) Metoclopramide; Translations: [METOCLOPRAMIDE HCL] Drug Allergy 5 [facility] Medications Current Medications Medication Drug Class(es) Dates Sig (Normalized) Sig (Original) acetaminophen 325 mg oral tablet (3 sources) Start: 09-11-2023 take 3 tablets by mouth every eight hours as needed for headache acetaminophen 325 mg Tab 975 mg = 3 tab(s), Oral, q8hr, PRN Headache, # 90 tab(s), Refills(s) 1, Pharmacy: [facility], 165.1, cm, 09/10/23 21:47:00 EDT, Height/Length Dosing, 84.5, kg, 09/10/23 21:47:00 EDT, Weight Dosing Start Date: 09/11/23 Status: Ordered amoxicillin 875 mg / clavulanate 125 mg oral tablet (1 source) Penicillin-class Antibacterial Start: 10-30-2022 End: 11-09-2022 Augmentin 875 mg-125 mg Tab 1 tab(s), Oral, q12hr for 10 day(s), 20 tab(s), Refill(s) 0, [facility]/pharmacy #[id number], 165.1, cm, 10/30/22 10:55:00 EDT, Height/Length [...] oral solution (1 source) alpha-Adrenergic Agonist, Uncompetitive B-impbks-P-asparta te Receptor Antagonist, Sigma-1 Agonist Start: 01-01-2023 End: 01-08-2023 take 5 mL by mouth every six hours brompheniramine/de xtromethorphan/PSE 2 mg-10 mg-30 mg/5 mL oral syrup 5 mL, Oral, q6hr for cold symptoms for 7 day(s), 140 mL, Refill(s) 0, [facility]/pharmacy #[id number], 165, cm, 01/01/23 15:53:00 EST, Height/Length Dosing, 77, kg, 01/01/23 15:53:00 EST, Weight Dosing Start Date: 01/01/23 Stop Date: 01/08/23 Status: Ordered cephalexin 500 mg oral capsule (8 sources) Cephalosporin Antibacterial Start: 08-05-2024 End: 08-15-2024 [...] day(s), # 14 cap(s), Refills(s) 0, [id number], [facility], cm, 01/05/22 7:56:00 EST, Height/Length Dosing, 74.1, kg, 01/05/22 7:56:00 EST, Weight Dosing Start Date: 01/05/22 Stop Date: 01/12/22 Status: Ordered docusate sodium 100 mg oral capsule (3 sources) Start: 09-11-2023 take 1 capsule by mouth twice daily docusate sodium 100 mg Cap 100 mg = 1 cap(s), Oral, BID, # 30 cap(s), Refills(s) 1, Pharmacy: [facility], 165.1, cm, 09/10/23 21:47:00 EDT, Height/Length Dosing, 84.5, kg, 09/10/23 21:47:00 EDT, Weight Dosing Start Date: 09/11/23 Status: Ordered ferrous sulfate 325 mg oral tablet (12 sources) Start: 09-11-2023 ferrous sulfat e 325 mg Tab 325 mg = 1 tab(s), Oral, BIDWM, # 60 tab(s), Refills(s) 5, Pharmacy: [facility], 165.1, cm, 09/10/23 21:47:00 EDT, Height/Length Dosing, 84.5, kg, 09/10/23 21:47:00 EDT, Weight Dosing Start Date: 09/11/23 Status: Ordered Start: 06-09-2021 take 1 tablet by leslie th once daily Slow Fe (as elemental iron) 45 mg oral tablet, extended release 45 mg = 1 tab(s), Oral, Daily, # 30 tab(s), Refills(s) 1, Pharmacy: [facility]/pharmacy #[id number], 165.1, cm, 06/07/21 7:55:00 EDT, Height/Length [...] comment), # 60 tab(s), Refills(s) 1, Pharmacy: [facility], 165.1, cm, 09/10/23 21:47:00 EDT, Height/Length Dosing, 84.5, kg, 09/10/23 21:47:00 EDT, Weight Dosing Start Date: 09/11/23 Status: Ordered Start: 08-09-2022 take 1 tablet by leslie every six hours ibuprofen 600 mg Tab 600 mg = 1 tab(s), Oral, q6hr, # 40 tab(s), Refills(s) 0, Pharmacy: [facility] #[id number], 165.1, cm, 08/07/22 17:54:00 EDT, Height/Length Dosing, 84.5, kg, 08/07/22 17:54:00 EDT, Weight Dosing Start Date: 08/09/22 Status: Ordered Start: 06-09-2021 take 1 tablet by leslie every six hours ibuprofen 600 mg Tab 600 mg = 1 tab(s), Oral, q6hr, # 15 tab(s), Refills(s) 0, [id number], 165.1, cm, 06/07/21 7:55:00 EDT, Height/Length Dosing, 83.6, kg, 06/07/21 7:55:00 EDT, Weight Dosing Start Date: 06/09/21 Status: Ordered Start: 01-28-2020 take 1 tablet by leslie th every eight hours ibuprofen 600 mg Tab 600 mg = 1 tab(s), Oral, q8hr, # 42 tab(s), Refills(s) 1, Pharmacy: [facility] #[id number], 169, cm, 01/27/20 13:57:00 EST, Height/Length Dosing, 70.9, kg, 01/27/20 13:57:00 EST, Weight Dosing Start Date: 01/28/20 Status: Ordered naproxen 500 mg oral tablet (9 sources) Nonsteroidal Anti-inflammatory Drug Start: 09-14-2021 take 1 tablet by mouth twice daily as needed for pain Naprosyn 500 mg Tab 500 mg = 1 tab(s), Oral, BID, PRN Pain, # 20 tab(s), Refills(s) 0, [id number], 165, cm, 10/16/21 20:16:00 EDT, Height/Length [...] day(s), # 10 cap(s), Refills(s) 0, Pharmacy: [facility]/pharmacy #[id number], 165, cm, 02/13/23 14:25:00 EST, Height/Length Dosing, 69.5, kg, 02/13/23 14:25:00 EST, Weight Dosing Start Date: 02/13/23 Stop Date: 02/18/23 Status: Ordered penicillin v potassium 500 mg oral tablet (5 sources) Start: 10-16-2021 take 1 tablet by mouth every six hours penicillin V potassium 500 mg Tab 500 mg = 1 tab(s), Oral, q6hr, # 28 tab(s), Refills(s) 0, Pharmacy: [facility]/pharmacy #[id number], 165, cm, 10/16/21 20:16:00 EDT, Height/Length [...] day(s), # 30 tab(s), Refills(s) 0, [id number], 165.1, cm, 06/07/21 7:55:00 EDT, Height/Length Dosing, 83.6, kg, 06/07/21 7:55:00 EDT, Weight Dosing Start Date: 09/14/21 Stop Date: 09/24/21 Status: Ordered polysaccharide iron complex 391 mg oral capsule (8 sources) Start: 06-16-2024 take 1 capsule by mouth once daily iron polysaccharide 180 mg (as elemental iron) oral capsule 180 mg = 1 cap(s), Oral, Daily, # 30 cap(s), Refills(s) 0, Pharmacy: [facility], 165.1, cm, 09/10/23 21:47:00 EDT, Height/Length Dosing, [...] Daily 30 capsule 6 06/05/2024 07/05/2024 Active [id number]-qies-grogs acid ( 19) 29 mg iron- 1 mg tablet,chewable (2 sources) [id number] tyrell-folic acid ( 19) 29 mg iron- 1 mg tablet,chewable Chew 1 tablet and swallow in the morning. Active Vit-Fe Fumarate-FA ( Vitamins) 28-0.8 MG tablet (20 sources) Start: 05-09-2024 End: 05-09-2025 take 1 tablet by mouth once daily Vit-Fe Fumarate-FA ( Vitamins) 28-0.8 MG tablet Indications: Missed menses , , unspecified gestational age ([facility]) , Encounter for supervision of normal first in first trimester ([facility]) Take 1 tablet by mouth Daily [...] day(s), # 30 supp, Refills(s) 0, Pharmacy: [facility]/pharmacy #[id number], 165, cm, 02/13/23 14:25:00 EST, Height/Length Dosing, 69.5, kg, 02/13/23 14:25:00 EST, Weight Dosing Start Date: 02/13/23 Stop Date: 02/18/23 Status: Ordered Start: 01-23-2023 take 25 mg rectal ro shoshana every six hours as needed for nausea promethazine 25 mg Supp 25 mg = 1 supp, Rectal, q6hr, PRN for nausea/vomiting, # 12 supp, Refills(s) 0 Start Date: 01/23/23 Status: Ordered Start: 01-05-2022 take 1 tablet by leslie th three times daily promethazine 25 mg Tab 25 mg = 1 tab(s), Oral, TID, # 15 tab(s), Refills(s) 0, Pharmacy: [facility] #[id number], 165, cm, 01/05/22 7:56:00 EST, Height/Length Dosing, 74.1, kg, 01/05/22 7:56:00 EST, Weight Dosing Start Date: 01/05/22 Status: Ordered Zofran ODT 4 mg Tab-Dis (14 sources) Start: 02-13-2023 End: 02-15-2023 take 1 tablet by mouth every eight hours Zofran ODT 4 mg Tab-Dis 4 mg = 1 tab(s), Oral, q8hr, X 2 day(s), # 6 tab(s), Refills(s) 0, [id number], 165, cm, 02/13/23 14:25:00 EST, Height/Length Dosing, 69.5, kg, 02/13/23 14:25:00 EST, Weight Dosing Start Date: 02/13/23 Stop Date: 02/15/23 Status: Ordered Start: 01-23-2023 take 1 tablet by leslie three times daily Zofran ODT 4 mg Tab-Dis 4 mg = 1 tab(s), Oral, TID, # 15 tab(s), Refills(s) 0 Start Date: 01/23/23 Status: Ordered Start: 01-18-2022 take 1 tablet by leslie every eight hours as needed for nausea Zofran ODT 4 mg Tab-Dis 4 mg = 1 tab(s), Oral, q8hr, PRN Nausea/Vomiting, # 20 tab(s), Refills(s) 0, [id number], 165.1, cm, 01/18/22 1:14:00 EST, Height/Length Dosing, 74.4, kg, 01/18/22 1:14:00 EST, Weight Dosing Start Date: 01/18/22 Status: Ordered Completed/Discontinued Medications Medication Drug Class(es) Dates Sig (Normalized) Sig (Original) [id number] 200 actuat albuterol 0.09 mg/actuat metered dose [...] breath or wheezing, 1 EA, Refill(s) 0, [facility] #[id number], 168.2, cm, 08/17/20 15:12:00 EDT, Height/Length Dosing, [...] day(s), # 28 tab(s), Refills(s) 0, [facility]acy: [facility] #[id number], 165, cm, 10/16/21 20:16:00 EDT, Height/Length Dosing, 75.2, kg, 01/02/22 12:43:00 EST, Weight Dosing Start Date: 01/02/22 Stop Date: 01/09/22 Status: Ordered Start: 10-26-2020 take 1 tablet by leslie th every six hours as needed for nausea Reglan 10 mg Tab 10 mg = 1 tab(s), Oral, q6hr, PRN Nausea, # 10 tab(s), Refills(s) 0, Pharmacy: [facility] #[id number], 168, cm, 10/26/20 13:25:00 EDT, Height/Length Dosing, [...] Nausea/Vomiting, # 6 tab(s), Refills(s) 0, Pharmacy: [facility] #[id number], 168, cm, 10/26/20 13:25:00 EDT, Height/Length Dosing, 75, kg, 10/26/20 13:25:00 EDT, Weight Dosing Start Date: 10/26/20 Status: Ordered Start: 10-26-2020 take 1 tablet by elslie th every eight hours as needed for nausea ondansetron 8 mg Dis Tab 8 mg = 1 tab(s), Oral, q8hr, PRN Nausea/Vomiting, # 6 tab(s), Refills(s) 0, Pharmacy: [facility] #[id number], 168, cm, 10/26/20 13:25:00 EDT, Height/Length Dosing, [...] [30 weeks gestation of ] 08-05-2024 Episodic Residual codes; unclassified (2 sources) Gestation period, 32 weeks; Translations: [32 weeks gestation of ] 08-19-2024 Episodic Short gestation; low weight; and growth retardation (4 sources) Iiapj-zrf-xsxnv baby; Translations: [[place] small for gestational age, unspecified weight] 07-22-2024 [...] Range Facility Urinalysis macro (dipstick) panel (U)on 08-19-2024 Bilirubin, UA Negative Negative - 4(70) +++ mg/dL [facility] Blood, UA Negative Negative - 50 Eliseo/mcL [facility] Clarity, UA Clear [facility] Color, UA Yellow [facility] Glucose, UA Negative Negative - 1999(110) ++++ mg/dL [facility] Interpretation and review of laboratory results Normal [facility] Ketones, UA Negative Negative - 160(16) ++++ mg/dL [facility] Leukocytes, UA Negative Negative - 500+++ Jeremias/mcL [facility] Nitrite, UA Negative Negative - Positive [facility] pH, UA 7 5 - 9 [facility] Protein, UA Negative Negative - 1999(20) ++++ mg/dL [facility] Spec Grav, UA 1.01 1 - 1.03 [facility] Urobilinogen, UA 0.2 0.2 - 12 mg/dL [facility] No Panel InformationOrdered By: Radiologist Radiology on 08-14-2024 [facility] Work Phone: No Panel Informationon 08-14 Radiology Study observation (narrative) [facility] UA (CLEAN/CATCH) 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 RO IF IND.on 08-14-2024 BILIRUBIN URINE Negative NEGATIVE [facility] BLOOD URINE Negative NEGATIVE [facility] Clarity (U) CLEAR CLEAR [facility] Color (U) YELLOW YELLOW [facility] GLUCOSE URINE UA Negative NEGATIVE mg/dL [facility] Interpretation and review of laboratory results Abnormal [facility] Ketones Ql (U) TRACE Abnormal NEGATIVE mg/dL [facility] Leukocyte esterase Test strip Ql (U) TRACE Abnormal NEGATIVE [facility] NITRITE URINE Negative NEGATIVE [facility] pH (U) 6.5 [pH] 5.0 - 9.0 [facility] PROTEIN URINE TRACE NEG/TRACE mg/dL [facility] SPECIFIC GRAVITY URINE 1.025 1.005 - 1.025 [facility] URINE MICROSCOPIC INDICATED YES [facility] UROBILINOGEN URINE 1.0 EU/dL 0.2 - 1.0 EU/dL [facility] US OB CERVICAL LENGTHon 08-[address] [address] Ultrasound Report Signed Patient: JORDIN TYLER MR#: [id number] : 2005 Acct:[id number] Age/Sex: 19 / F ADM Date: Loc: [facility] 250-[address]: Jerry Wilson D.O. Ordering Physician: Jerry Wilson D.O. Date of Service: 08/14/24 Procedure(s): US OB cervical length Accession Number(s): [id number] cc: Jerry Wilson D.O.; Physician,Non-Staff M.[place]arzad [place] [address] Patient Name: JORDIN TYLER MRN: [id number] date: 2005 Sex: F Assigned Patient Location: [facility] Current Patient Location: Accession/Order Number: [id number] Exam Date: 08/14/2024 09:18 Report Date: 08/14/2024 09:23 At the request of: JERRY WILSON DO [...] Roe M.D. 08/14/2024 9:23 AM Dictation Location: [place] [address] Electronically authenticated by: [id number] Y Date: 08/14/2024 09:23 Dictated By: Tavia Roe M.D. Signed By: 08/14/24925 DD/ 2 TD/TT: Manager Community Development: [facility] Radiology, Radiologist, MD - 08/14/2024 [place] [address] Ultrasound Report Signed Patient: JORDIN TYLER MR#: [id number] : 2005 Acct:[id number] Age/Sex: 19 / F ADM Date: Loc: [facility] 250- Attending Dr: Jerry Wilson D.O. Ordering Physician: Jerry Wilson D.O. Date of Service: 08/14/24 Procedure(s): US OB cervical length Accession Number(s): [id number] cc: Jerry Wilson D.O.; Physician,Non-Staff Christine The [place] [address] Patient Name: JORDIN TYLER MRN: [facility]:[id number] date: 2005 Sex: F Assigned Patient Location: [facility] Current Patient Location: Accession/Order Number: [id number] Exam Date: 08/14/2024 09:18 Report Date: 08/14/2024 09:23 At the request of: JERRY WILSON DO Procedure: US OB cervical length CLINICAL DATA: SGA. Contractions. BIOPHYSICAL PROFILE: COMPARISON: 08/07/2024 There is a single live intrauterine gestation in breech presentation. The reported gestational age is 31 weeks 4 days.. The heart rate [id number] beats per minute. FINDINGS: TONE: 1 or [...] Roe M.D. 08/14/2024 9:23 AM Dictation Location: [place] [address] Electronically authenticated by: [id number] Y Date: 08/14/2024 09:23 Dictated By: Tavia Roe M.D. Signed By: 08/14/24925 DD/ 2 TD/TT: Manager Community Development: [facility] US [facility] BPP W NON-STRESS on 08-14-2024 [place] [address] Ultrasound Report Signed Patient: JORDIN TYLER MR#: [id number] : 2005 Acct:[id number] Age/Sex: 19 / F ADM Date: Loc: [place] [address]: Jerry Wilson D.O. Ordering Physician: Jerry Wilson D.O. Date of Service: 08/14/24 Procedure(s): US OB BPP w non-stress Accession Number(s): [id number] cc: Jerry Wilson D.O.; Physician,Non-Staff Christine [place] [id number] Patient Name: JORDIN TYLER MRN: [id number] date: 2005 Sex: F Assigned Patient Location: [facility] Current Patient Location: Accession/Order Number: [id number] Exam Date: 08/14/2024 09:18 Report Date: 08/14/2024 09:23 At the request of: JERRY WILSON DO Procedure: US OB cervical length CLINICAL DATA: SGA. Contractions. BIOPHYSICAL PROFILE: COMPARISON: 08/07/2024 There is a single live intrauterine gestation in breech presentation. The reported gestational age is 31 weeks 4 days.. The heart rate dweavjmi561 beats per minute. FINDINGS: TONE: 1 or [...] Roe M.D. 08/14/2024 9:23 AM Dictation Location: [place] [address] Electronically authenticated by: [id number] Y Date: 08/14/2024 09:23 Dictated By: Tavia Roe M.D. Signed By: 08/14/24925 DD/ 2 TD/TT: Manager Community Development: [facility] Radiology, Radiologist, - 08/14/2024 [place] [address] Ultrasound Report Signed Patient: JORDIN TYLER MR#: [id number] : 2005 Acct:[id number] Age/Sex: 19 / F ADM Date: Loc: [facility] 250-[address]: Jerry Wilson D.O. Ordering Physician: Jerry Wilson D.O. Date of Service: 08/14/24 Procedure(s): US OB BPP w non-stress Accession Number(s): [id number] cc: Jerry Wilson D.O.; Physician,Non-Staff Christine [place] [id number] Patient Name: JORDIN TYLER MRN: [facility]:[id number] date: 2005 Sex: F Assigned Patient Location: [facility] Current Patient Location: Accession/Order Number: [id number] Exam Date: 08/14/2024 09:18 Report Date: 08/14/2024 09:23 At the request of: JERRY WILSON DO Procedure: US OB cervical length CLINICAL DATA: SGA. Contractions. BIOPHYSICAL PROFILE: COMPARISON: 08/07/2024 There is a single live intrauterine gestation in breech presentation. The reported gestational age is 31 weeks 4 days.. The heart rate ypgmnogt565 beats per minute. FINDINGS: TONE: 1 or [...] Roe M.D. 08/14/2024 9:23 AM Dictation Location: [place] [address] Electronically authenticated by: [id number] Y Date: 08/14/2024 09:23 Dictated By: Tavia Roe M.D. Signed By: 08/14/24925 DD/ 2 TD/TT: Manager Community Development: [facility] US OB PLACENTAon 08-14-[address] [address] Ultrasound Report Signed Patient: JORDIN TYLER MR#: [id number] : 2005 Acct:[id number] Age/Sex: 19 / F ADM Date: Loc: [facility] 250-[address]: Jerry Wilson D.O. Ordering Physician: Jerry Wilson D.O. Date of Service: 08/14/24 Procedure(s): US OB placenta Accession Number(s): [id number] cc: Jerry Wilson D.O.; Physician,Non-Staff [place] [address] Patient Name: JORDIN TYLER MRN: [id number] date: 2005 Sex: F Assigned Patient Location: [facility] Current Patient Location: Accession/Order Number: [id number] Exam Date: 08/14/2024 09:18 Report Date: 08/14/2024 09:23 At the request of: JERRY WILSON DO [...] Roe M.D. 08/14/2024 9:23 AM Dictation Location: [place] [address] Electronically authenticated by: [id number] Y Date: 08/14/2024 09:23 Dictated By: Tavia Roe M.D. Signed By: 08/14/24925 DD/ 2 TD/TT: Manager Community Development: [facility] Radiology, Radiologist, MD - 08/14/2024 [place] [address] Ultrasound Report Signed Patient: JORDIN TYLER MR#: [id number] : 2005 Acct:[id number] Age/Sex: 19 / F ADM Date: Loc: [place] [address]: Jerry Wilson D.O. Ordering Physician: Jerry Wilson D.O. Date of Service: 08/14/24 Procedure(s): US OB placenta Accession Number(s): [id number] cc: Jerry Wilson D.O.; Physician,Non-Staff Christine The [place] [id number] Patient Name: JORDIN TYLER MRN: [facility]:[id number] date: 2005 Sex: F Assigned Patient Location: [facility] Current Patient Location: Accession/Order Number: [id number] Exam Date: 08/14/2024 09:18 Report Date: 08/14/2024 09:23 At the request of: JERRY WILSON DO Procedure: US OB cervical length CLINICAL DATA: SGA. Contractions. BIOPHYSICAL PROFILE: COMPARISON: 08/07/2024 There is a single live intrauterine gestation in breech presentation. The reported gestational age is 31 weeks 4 days.. The heart rate [id number] beats per minute. FINDINGS: TONE: 1 or [...] Roe M.D. 08/14/2024 9:23 AM Dictation Location: [place] [address] Electronically authenticated by: [id number] Y Date: 08/14/2024 09:23 Dictated By: Tavia Roe M.D. Signed By: 08/14/24925 DD/ 2 TD/TT: Manager Community Development: [facility] OB BPP W NON-STRESS on 08-07-2024 [place] [address] Ultrasound Report Signed Patient: JORDIN TYLER MR#: [id number] : 2005 Acct:[id number] Age/Sex: 19 / F ADM Date: 08/07/24 Loc: US Attending Dr: Holli Roque Ordering Physician: Holli Roque Date of Service: 08/07/24 Procedure(s): US OB BPP w non-stress Accession Number(s): [id number] cc: Holli Roque; Physician,Non-Staff Christine The [address] [address] Patient Name: JORDIN TYLER MRN: [facility]:[id number] date: 2005 Sex: F Assigned Patient Location: [facility] Current Patient Location: Accession/Order Number: [id number] Exam Date: 08/07/2024 19:26 Report Date: 08/07/2024 [...] Castaneda M.D. 08/07/2024 7:26 PM Dictation Location: [place] [address] Electronically authenticated by: [id number] Y Date: 08/07/2024 19:26 Dictated By: Vijay Castaneda D.O. Signed By: 08/07/241928 DD/ 25 TD/TT: Manager Community Development: [facility] Radiology, Radiologist, MD - 08/07/[address] [address] Ultrasound Report Signed Patient: JORDIN TYLER MR#: [id number] : 2005 Acct:[id number] Age/Sex: 19 / F ADM Date: 08/07/24 Loc: US Attending Dr: Holli Roque Ordering Physician: Holli Roque Date of Service: 08/07/24 Procedure(s): US OB BPP w non-stress Accession Number(s): [id number] cc: Holli Roque; Physician,Non-Staff Christine The [address] [address] Patient Name: JORDIN TYLER MRN: [facility]:[id number] date: 2005 Sex: F Assigned Patient Location: [facility] Current Patient Location: Accession/Order Number: [id number] Exam Date: 08/07/2024 19:26 Report Date: 08/07/2024 [...] Castaneda M.D. 08/07/2024 7:26 PM Dictation Location: [facility] Electronically authenticated by: [id number] Y Date: 08/07/2024 19:26 Dictated By: Vijay Castaneda D.O. Signed By: 08/07/241928 DD/ 25 TD/TT: Manager Community Development: [facility] Radiology Study observation (narrative) [facility] US OB BPP W NON-STRESS Ordered By: Radiologist Radiology on 08-07-2024 [facility] Work Phone: Urinalysis macro (dipstick) panel (U)on 07-22-2024 Bilirubin, UA Negative Negative - 4(70) +++ mg/dL [facility] Blood, UA Negative Negative - 50 Eliseo/mcL [facility] Clarity, UA Clear [facility] Color, UA Yellow [facility] Glucose, UA Negative Negative - 2000(110) ++++ mg/dL [facility] Interpretation and review of laboratory results Abnormal [facility] Ketones, UA Negative Negative - 160(16) ++++ mg/dL [facility] Leukocytes, UA Positive Negative - 500+++ Jeremias/mcL [facility] Comment on above: small Nitrite, UA Negative Negative - Positive [facility] pH, UA 8.5 5 - 9 [facility] Protein, UA Negative Negative - 2000(20) ++++ mg/dL [facility] Spec Grav, UA 1.015 1 - 1.03 [facility] Urobilinogen, UA 0.2 0.2 - 12 mg/dL [facility] Ultrasound - Officeon 2024 Radiology Study observation (narrative) [facility] Radiology Study observation (narrative) [facility] Radiology Study observation (narrative) [facility] US OB GROWTHon 07-04-2024 [place] [address] Ultrasound Report Signed Patient: JORDIN TYLER MR#: [id number] : 2005 Acct:[id number] Age/Sex: 19 / F ADM Date: 07/04/24 Loc: US Attending Dr: Jerry Wilson D.O. Ordering Physician: Jerry Wilson D.O. Date of Service: 07/04/24 Procedure(s): US OB growth Accession Number(s): [id number] cc: Jerry Wilson D.O.; Physician,Non-Staff [place] [id number] Patient Name: JORDIN TYLER MRN: [id number] date: 2005 Sex: F Assigned Patient Location: Current Patient Location: US Accession/Order Number: [id number] Exam Date: 07/04/2024 09:40 Report Date: 07/04/2024 [...] Roe M.D. 07/04/2024 9:47 AM Dictation Location: [place] [address] Electronically authenticated by: [id number] Date: 07/04/2024 09:47 Dictated By: Tavia Roe M.D. Signed By: 07/04/24 0949 DD/ 6 TD/TT: Manager Community Development: [facility] Radiology, Radiologist, MD - 07/04/2024 [place] [address] Ultrasound Report Signed Patient: JORDIN TYLER MR#: [id number] : 2005 Acct:[id number] Age/Sex: 19 / F ADM Date: 07/04/24 Loc: US Attending Dr: Jerry Wilson D.O. Ordering Physician: Jerry Wilson D.O. Date of Service: 07/04/24 Procedure(s): US OB growth Accession Number(s): [id number] cc: Jerry Wilson D.O.; Physician,Non-Staff Christine [place] [id number] Patient Name: JORDIN TYLER MRN: [facility]:[id number] date: 2005 Sex: F Assigned Patient Location: Current Patient Location: US Accession/Order Number: [id number] Exam Date: 07/04/2024 09:40 Report Date: 07/04/2024 [...] Roe M.D. 07/04/2024 9:47 AM Dictation Location: [place] [address] Electronically authenticated by: [id number] Y Date: 07/04/2024 09:47 Dictated By: Tavia Roe M.D. Signed By: 07/04/2449 DD/ 6 TD/TT: Manager Community Development: [facility] Radiology Study observation (narrative) [facility] OB GROWTHOrdered By: Cathy ologthierno Radiology on 07-04-2024 [facility] Work Phone: Ultrasound - Officeon 2024 [facility] Family Medicine Office/Clini c Noteon 07-02-2024 Family Medicine Office/Clinic Note Family Medicine Office/Clinic Note Subjective Inmate at the [facility] today for: CC: ear pain Onset: [...] q12hr, # 20 cap(s), Refills(s) 0, Pharmacy: [facility], 165.1, cm, 06/19/24 15:04:00 EDT, Height/Length Dosing, [...] mg Tab, 1 tab(s), Oral, Daily Normal [facility] Comment on above: Result Comment: Elec tronically Signed By: KAMALA TOUSSAINT, Eduardo Wilson\.berkley\Date and Time Signed: 07/02/24 16:43 EDT Urinalysis macro (dipstick) panel (U)on 06-24-2024 Bilirubin, UA Negative Negative - 4(70) +++ mg/dL [facility] Blood, UA Negative Negative - 50 Eliseo/mcL [facility] Clarity, UA Clear [facility] Color, UA Yellow [facility] Glucose, UA Negative Negative - 1999(110) ++++ mg/dL [facility] Interpretation and review of laboratory results Abnormal [facility] Ketones, UA Negative Negative - 160(16) ++++ mg/dL [facility] Leukocytes, UA Trace Negative - 500+++ Jeremias/mcL [facility] Nitrite, UA Negative Negative - Positive [facility] pH, UA 7.5 5 - 9 [facility] Protein, UA Negative Negative - 1999(20) ++++ mg/dL [facility] Spec Grav, UA 1.015 1 - 1.03 [facility] Urobilinogen, UA 0.2 0.2 - 12 mg/dL [facility] Snf Documentson 06-20-2024 Snf Documents Snf Documents Snf Nurse Visit 14 day Health Appraisal Date of Appraisal: _06/19/2024 Booked Date: _06/16/2024 Court or Release Date: RELEASE 07/16/2024 Did inmate come from another facility: NO PCP: NONE Specialist: DR STEVE HOLLOWAY Pharmacy: [facility] Have you ever had suicide [...] SHE ONLY WENT TO URGENT CARE IN [place]. I EXPLAINED THAT URGENT CARE WOULDN'T ORDER [...] you wish to attend AA Meetings? NO Snf Assessment 06/19/24 15:01:00 Snf Assessment Entered On: 06/19/2024 15:04 EDT Performed [...] Droplet Precautions for MERS/COVID-19 : N/A Valentine Floers RN - 06/19/2024 15:01 EDT Summary Chief Complaint : Health appraisal Preferred Lab : [facility] (more content not included)... 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 IND.on 06-04-2024 BILIRUBIN URINE Negative NEGATIVE [facility] BLOOD URINE Negative NEGATIVE [facility] Clarity (U) CLEAR CLEAR [facility] Color (U) YELLOW YELLOW [facility] GLUCOSE URINE UA Negative NEGATIVE mg/dL [facility] Interpretation and review of laboratory results Abnormal [facility] Ketones Ql (U) Negative NEGATIVE mg/dL [facility] Leukocyte esterase Test strip Ql (U) TRACE Abnormal NEGATIVE [facility] NITRITE URINE Negative NEGATIVE [facility] pH (U) 6.0 [pH] 5.0 - 9.0 [facility] PROTEIN URINE Negative NEG/TRACE mg/dL [facility] Healthcare SPECIFIC GRAVITY URINE 1.025 1.005 - 1.025 [facility] URINE MICROSCOPIC INDICATED YES [facility] UROBILINOGEN URINE 0.2 EU/dL 0.2 - 1.0 EU/dL [facility] OB ANATOMYon 05-27-[address] [address] Ultrasound Report Signed Patient: JORDIN TYLER MR#: [id number] : 2005 Acct:[id number] Age/Sex: 19 / F ADM Date: 05/27/24 Loc: US Attending Dr: Jerry Wilson D.O. Ordering Physician: Jerry Wilson D.O. Date of Service: 05/27/24 Procedure(s): US OB anatomy Accession Number(s): [id number] cc: Jerry Wilson D.O.; Physician,Non-Staff [place] [id number] Patient Name: JORDIN TYLER MRN: [id number] date: 2005 Sex: F Assigned Patient Location: Current Patient Location: US Accession/Order Number: [id number] Exam Date: 05/27/2024 15:55 Report Date: 05/27/2024 [...] Vijay Castaneda M.D.05/27/2024 3:59 PM Dictation Location: [place] [address] Electronically authenticated by: [id number] Y Date: 05/27/2024 15:59 Dictated By: Vijay Castaneda D.O. Signed By: 05/27/24 1602 DD/ 1559 TD/TT: Manager Community Development: [facility] Radiology, Radiologist, MD - 05/27/2024 [place] [address] Ultrasound Report Signed Patient: JORDIN TYLER MR#: [id number] : 2005 Acct:[id number] Age/Sex: 19 / F ADM Date: 05/27/24 Loc: US Attending Dr: Jerry Wilson D.O. Ordering Physician: Jerry Wilson D.O. Date of Service: 05/27/24 Procedure(s): US OB anatomy Accession Number(s): [id number] cc: Jerry Wilson D.O.; Physician,Non-Staff Christine The [address] [id number] Patient Name: JORDIN TYLER MRN: [facility]:[id number] date: 2005 Sex: F Assigned Patient Location: US Current Patient Location: US Accession/Order Number: [id number] Exam Date: 05/27/2024 15:55 Report Date: 05/27/2024 [...] Vijay Castaneda M.D.05/27/2024 3:59 PM Dictation Location: [place] [address] Electronically authenticated by: [id number] Y Date: 05/27/2024 15:59 Dictated By: Vijay Castaneda D.O. Signed By: 05/27/24 1609 DD/ 1559 TD/TT: Manager Community Development: [facility] Radiology Study observation (narrative) [facility] US OB ANATOMYOrdered By: Abrahan iologthierno Radiology on 05-27-2024 [facility] Work Phone: US OB CERVICAL LENGTHon 05-07 [place] [address] Ultrasound Report Signed Patient: JORDIN TYLER MR#: [id number] : 2005 Acct:[id number] Age/Sex: 19 / F ADM Date: 05/27/24 Loc: US Attending Dr: Jerry Wilson D.O. Ordering Physician: Jerry Wilson D.O. Date of Service: 05/27/24 Procedure(s): US OB cervical length Accession Number(s): [id number] cc: Jerry Wilson D.O.; Physician,Non-Staff Christine The [address] [address] Patient Name: JORDIN TYLER MRN: [facility]:[id number] date: 2005 Sex: F Assigned Patient Location: US Current Patient Location: US Accession/Order Number: [id number] Exam Date: 05/27/2024 15:54 Report Date: 05/27/2024 15:54 At the request of: JERRY WILSON DO Procedure: US OB cervical length Ultrasound to assess for cervical length Cervical length 4.1 cm. This the cervix is closed. US/US OB cervical length IMPRESSION: 4.1 cm cervical length Impression dictated by: Vijay Castaneda M.D.05/27/2024 3:54 PM Dictation Location: [place] [address] Electronically authenticated by: [id number] Y Date: 05/27/2024 15:54 Dictated By: Vijay Castaneda D.O. Signed By: 05/27/24 1557 DD/ 1554 TD/TT: Manager Community Development: [facility] Radiology, Radiologist, MD - 05/27/2024 [place] [address] Ultrasound Report Signed Patient: JORDIN TYLER MR#: [id number] : 2005 Acct:[id number] Age/Sex: 19 / F ADM Date: 05/27/24 Loc: US Attending Dr: Jerry Wilson D.O. Ordering Physician: Jerry Wilson D.O. Date of Service: 05/27/24 Procedure(s): US OB cervical length Accession Number(s): [id number] cc: Jerry Wilson D.O.; Physician,Non-Staff Christine The [address] [address] Patient Name: JORDIN TYLER MRN: [facility]:[id number] date: 2005 Sex: F Assigned Patient Location: US Current Patient Location: US Accession/Order Number: [id number] Exam Date: 05/27/2024 15:54 Report Date: 05/27/2024 15:54 At the request of: JERRY WILSON DO Procedure: US OB cervical length Ultrasound to assess for cervical length Cervical length 4.1 cm. This the cervix is closed. US/US OB cervical length IMPRESSION: 4.1 cm cervical length Impression dictated by: Vijay Castaneda M.D.05/27/2024 3:54 PM Dictation Location: [place] [address] Electronically authenticated by: [id number] Y Date: 05/27/2024 15:54 Dictated By: Vijay Castaneda D.O. Signed By: 05/27/24 1557 DD/ 1554 TD/TT: Manager Community Development: [facility] Radiology Study observation (narrative) [facility] US OB CERVICAL LENGTHOrdered By: Radiologist Radiology on 05-27-2024 [facility] Work Phone: Ultrasound - Officeon 2024 [facility] RECURRENT VAGINITIS (HTRX)on 05-23-2024 ATOPOBIUM VAGINAE 0 [facility] ATOPOBIUM VAGINAE Not detected [facility] BVAB 2,3 (BACTERIAL VAGINOSIS ASSOCIATED BACTERIA 2, 3); MOBILUNCUS SPP 0 [facility] BVAB 2,3 (BACTERIAL VAGINOSIS ASSOCIATED BACTERIA 2, 3); MOBILUNCUS SPP Not detected [facility] DUANE ALBICANS, PARAPSILOSIS, TROPICALIS 0 [facility] DUANE ALBICANS, PARAPSILOSIS, TROPICALIS Not detected [facility] DUANE GLABRATA 0 [facility] DUANE GLABRATA Not detected [facility] DUANE KRUSEI 0 [facility] DUANE KRUSEI Not detected [facility] CHLAMYDIA TRACHOMATIS 0 [facility] CHLAMYDIA TRACHOMATIS Not detected [facility] GARDNERELLA VAGINALIS 0 [facility] GARDNERELLA VAGINALIS Not detected [facility] MEGASPHAERA (TYPES 1, 2) 0 [facility] MEGASPHAERA (TYPES 1, 2) Not detected [facility] MYCOPLASMA GENITALIUM 0 [facility] MYCOPLASMA GENITALIUM Not detected [facility] NEISSERIA GONORRHOEAE 0 [facility] NEISSERIA GONORRHOEAE Not detected [facility] TRICHOMONAS VAGINALIS 0 [facility] TRICHOMONAS VAGINALIS Not detected [facility] Urinalysis macro (dipstick) panel (U)on 05-22-2024 Bilirubin, UA Negative Negative - 4(70) +++ mg/dL [facility] Blood, UA Negative Negative - 50 Eliseo/mcL [facility] Clarity, UA Clear [facility] Color, UA Yellow [facility] Glucose, UA Negative Negative - 1999(110) ++++ mg/dL [facility] Interpretation and review of laboratory results Normal [facility] Ketones, UA Negative Negative - 160(16) ++++ mg/dL [facility] Leukocytes, UA Trace Negative - 500+++ Jeremias/mcL [facility] Nitrite, UA Negative Negative - Positive [facility] pH, UA 6 5 - 9 [facility] Protein, UA Negative Negative - 2000(20) ++++ mg/dL [facility] Spec Grav, UA 1.025 1 - 1.03 [facility] Urobilinogen, UA 0.2 0.2 - 12 mg/dL [facility] HCG ( test) Ql (U)o n 05-09-2024 Interpretation and review of laboratory results Abnormal [facility] Preg Test, Ur Positive Negative [facility] US OB LIMITED 1+ FETUSESon 0 [...] weeks 5 days. ALISHA is 10/12/2024. Electronically Signed:Hernando daniel signed by RAS MCKINLEY II, MD, PHD at 11-May-2024 10:37:55 PM [facility] Normal Not Available Comment on above: Order Comment: US OB TRANSVAGINAL No LMP recorded. Ultrasound - Officeon 2024 [facility] Urinalysis macro (dipstick) panel (U)on 05-09-2024 Bilirubin, UA Negative Negative - 4(70) +++ mg/dL [facility] Blood, UA Negative Negative - 50 Eliseo/mcL [facility] Clarity, UA Clear [facility] Color, UA Yellow [facility] Glucose, UA Negative Negative - 2000(110) ++++ mg/dL [facility] Interpretation and review of laboratory results Abnormal [facility] Ketones, UA Negative Negative - 160(16) ++++ mg/dL [facility] Leukocytes, UA Positive Negative - 500+++ Jeremias/mcL [facility] Comment on above: small Nitrite, UA Negative Negative - Positive [facility] pH, UA 7 5 - 9 [facility] Protein, UA Negative Negative - 2000(20) ++++ mg/dL [facility] Spec Grav, UA 1.025 1 - 1.03 [facility] Urobilinogen, UA 0.2 0.2 - 12 mg/dL [facility] Chlamydia/Gonococcus, NAAon 01-12-2024 C. trachomatis rRNA TIM+probe Ql (Unsp spec) Negative Invalid Interpretation Code Negative [facility] Comment on above: Performed By: #### 1 [id number] #### [facility] [address] [place] [address] N. gonorrhoeae rRNA TIM+probe Ql (Unsp spec) Negative Invalid Interpretation Code Negative [facility] Comment on above: Result Comment: Perf ormed at: =G [facility] [address] [place], [place] [id number] MD Rodriguez Briones Performed By: #### 1 [id number] #### [facility] [address] [place] [address] CBC w/Indiceson 09-12-2023 Basophilic stippling LM Ql (Bld) PRESENT Invalid Interpretation Code [facility] Comment on above: Performed By: #### 2 [id number] ####[facility] [address] [place] [address] Erythrocyte distribution width (RBC) [Ratio] 16.6 % High 10.9-14.2 [facility] Comment on above: Performed By: #### 2 [id number] ####[place] [address] [place] [address] Hematocrit (Bld) [Volume fraction] 23.6 % Low 34.0-46.0 [facility] Comment on above: Performed By: #### 2 [id number] ####[address] [address] Hemoglobin (Bld) [Mass/Vol] 7.6 g/dL Low 12.0-16.0 [facility] Comment on above: Performed By: #### 2 [id number] ####[address] [address] Hypochromia Auto Ql (Bld) PRESENT Invalid Interpretation Code [facility] Comment on above: Performed By: #### 2 [id number] ####[address] [address] MCH (RBC) [Entitic mass] 21.8 pg Low 27.0-34.0 [facility] Comment on above: Performed By: #### 2 219314 ####[address] [address] MCHC (RBC) [Mass/Vol] 32.3 g/dL Normal 31.4-36.0 [facility] Comment on above: Performed By: #### 2 702142 ####[place] [address] [place] [address] MCV (RBC) [Entitic vol] 67.6 fL Low 80.0-100.0 [facility] Comment on above: Performed By: #### 2 [id number] ####[facility] [address] [place] [address] Microcytes Ql (Bld) PRESENT Invalid Interpretation Code [facility] Comment on above: Performed By: #### 2 990045 ####[address] [place] [address] Platelet 202.0 E9/L Normal 150.0-500.0 [facility] Comment on above: Performed By: #### 2 850887 ####[address] [address] Platelet mean volume (Bld) [Entitic vol] 9.2 fL Normal 6.4-10.8 [facility] Comment on above: Performed By: #### 2 [id number] ####[address] [address] Platelets Large LM Ql (Bld) PRESENT Invalid Interpretation Code [facility] Comment on above: Performed By: #### 2 [id number] ####[address] [address] Polychromasia LM Ql (Bld) PRESENT Invalid Interpretation Code [facility] Comment on above: Performed By: #### 2 [id number] ####[place] [id number] RBC (Bld) [#/Vol] 3.5 E12/L Low 4.3-5.9 [facility] Comment on above: Performed By: #### 2 [id number] ####[address] [address] RBC size Nom (Bld) NORMAL Invalid Interpretation Code [facility] Comment on above: Performed By: #### 2 296992 ####[address] [address] WBC corrected for nucl RBC Auto (Bld) [#/Vol] 10.0 E9/L Normal 4.0-11.0 [place] Comment on above: Performed By: #### 2 [id number] ####[address] [address] HEMATOLOGYOrdered By: SYSTEM SYSTEM on 09-12-2023 Basophilic [...] Dr. ConradCPT code 85/60 Invalid Interpretation Code [facility] HemeManSS Inpatient Clinical Summaryon 09-12-2023 Inpatient Clinical Summary Inpatient Clinical Summary [address] [address] Clinical Summary Person Information Name: JORDIN TYLER [place] Age: 18 Years : 2005 Sex: Female PCP: NONE, XXXX Marital Status: Single Phone: [phone] Race: White Ethnicity: Non- or Language: Sudanese Visit Id: Visit Reason: INDUCED Speciality: Acuity: 1 PP Enc Type: Inpatient Med Service: Obstetrics Arrival: 09/10/2023 21:01:27 Discharge: 09/12/2023 18:05:00 Dispo Type: Home (Routine DC) Address: [address] [place] [address] [address] [facility] [id number] Provider Notes: Diagnosis: Anemia affecting , antepartum; [...] Follow up: With: Address: When: Magalis Snow [facility] Lucas Lawrence, [address] [address] Business (1) Within 6 weeks Patient Education Information: Care After Vaginal Delivery; Anemia Normal [facility] Inpatient Clinical Summary Inpatient Clinical Summary [address] [address] Clinical Summary Person Information Name: JORDIN TYLER [place] Age: 18 Years : 2005 Sex: Female PCP: NONE, XXXX Marital Status: Single Phone: [phone] Race: White Ethnicity: Non- or Language: Sudanese Visit Id: Visit Reason: INDUCED Speciality: Acuity: 1 PP Enc Type: Inpatient Med Service: Obstetrics Arrival: 09/10/2023 21:01:27 Discharge: Dispo Type: Address: [address] [place] [address] [place] [phone] Provider Notes: Diagnosis: Anemia affecting , antepartum; [...] Physician: Follow up: With: Address: When: Magalis Leach [place], [employer] [address] [place] [address] Business (1) Within 6 weeks Patient Education Information: Care After Vaginal Delivery; Anemia Normal [facility] Inpatient Patient Summaryon 09-12-2023 Inpatient Patient Summary Inpatient Patient Summary [address] [address] Patient Discharge Instructions PERSON INFORMATION Name: TYLER, JORDIN Wilson Date of : 2005 Current Date: [...] None Follow up: With: Address: When: Magalis Leach Lucas [place], [employer] [address] [place] [address] Business (1) Within 6 weeks In the event that this physician does not participate in your insurance network, please consult with your insurance company to find a nearby participating provider. Comment: JAYSON Suárez SHIANNE A, have received the attached patient education materials/instructio ns and have verbalized understanding. Patient Signature Date Clinican/Nurse Signature Date MEDICATION LIST New Medications [facility] 1987, [address] [place], [place] [id number], [phone] acetaminophen (acetaminophen 325 mg Tab) 3 Tablets [...] 0. Last Dose: Next Dose: [facility] PATIENT EDUCATION INFORMATION Instructions: Care After Vaginal [...] redness, swelling, (more content not included)... Normal [facility] Inpatient Patient Summary Inpatient Patient Summary [address] [address] Patient Discharge Instructions PERSON INFORMATION [...] None Follow up: With: Address: When: Magalis Snwo [facility] Lucas [address] [address] Business (1) Within 6 weeks In the event that this physician does not participate in your insurance network, please consult with your insurance company to find a nearby participating provider. Comment: I JORDIN TYLER, have received the attached patient education materials/instructio ns and have verbalized understanding. Patient Signature Date Clinican/Nurse Signature Date MEDICATION LIST New Medications [facility] 1987, [address] [place] [id number], [phone] acetaminophen (acetaminophen 325 mg Tab) 3 Tablets [...] redness, swelling, (more content not included)... Normal [facility] Path. Reviewon 09-12-2023 Path Review Hypochromic microcytic anemia with anisocytosis rule out iron deficiency Invalid Interpretation Code [facility] Comment on above: Performed By: #### 1 [id number] #### [facility] [address] [place] [address] Surgical Pathology Reporton 09-12-2023 Surgical Pathology Report [facility] [address] [facility] [place] [address]- Surgical Pathology Report Collected Date/Time: 09/11/2023 05:58 EDT Pathologist: Newton Conrad MD Received Date/Time: 09/11/2023 10:48 EDT Magalis Snow DO. Magalis Snow DO. 07 Surgical Pathology Report - 09/12/2023 14:06 [...] is scattered throughout the entire placental tissue. Line Therapist portion is submitted in four cassettes: 1 - Cord and membrane 2-4 - Line Therapist sections of placenta parenchyma (DC) DC:MCA Microscopic Description Microscopic examination performed unless gross only specified. Normal [facility] Comment on above: Performed By: #### 4 [id number] #### [facility] [address] [place] [address] Delivery Summaryon Delivery Summary Delivery Summary Delivery [...] 50 mcg/mL injectable solution, 100 mcg, Epidural [id number] [F], 50 mcg, Oral ropivacaine 0.2% injectable solution 10 mL, 18 mg, Epidural Normal [facility] Comment on above: Result Comment: Elec tronically Signed By: Magalis Snow DO.br\Date and Time Signed: 09/11/23 05:43 EDT URINALYSISOrdered By: Mind FactoryAR SYSTEM on 09-11-2023 Bilirubin Ql (U) Negative Normal Negativemg/ d L [facility] UA Auto SS Clarity (U) Clear (09/11/23 2:24 AM) Normal Clear [facility] UA Auto SS Color (U) Light-Yellow 1 (09/11/23 2:24 AM) Normal Yellow [facility] UA Auto SS Comment on above: Interpretive Data: M icroscopic readings are only performed on those samples that meet specific criteria set forth by [facility]. Glucose Ql (U) Negative [...] Spec Desc Mendoza (09/11/23 2:24 AM) Normal [facility] UA Auto SS ABO/Rhon 09-10-2023 ABO/Rh Positive Invalid Interpretation Code [facility] Comment on above: Performed By: #### 2 [id number] #### [facility] [address] [place] [address] ABO/Rh History Checkon 09-09 ABO/Rh History Check Verified Hx Blood Type Normal [facility] Comment on above: Performed By: #### 1 [id number] #### [facility] [address] [place] [address] ABSCon 09-10-2023 ABSC Gel Interp Negative Normal [place] Comment on above: Performed By: #### 1 [id number] #### [facility] [address] [place] [address] BLOOD BANKOrdered By: Austin Cabrera on 09-10-2023 ABO/Rh Interp Positive Invalid Interpretation Code [facility] BB Subsection ABSC Gel Interp Negative (09/10/23 9:43 PM) Normal [facility] BB Subsection Blood Bank ID#on 09-10-2023 BBID# [id number] Invalid Interpretation Code [facility] Comment on above: Performed By: #### 1 [id number] #### [facility] [address] [place] [address] CBC w/Indiceson 09-10-2023 Erythrocyte distribution width (RBC) [Ratio] 17.0 % High 10.9-14.2 [facility] Comment on above: Performed By: #### 2 [id number] #### [facility] [address] [place] [address] Hematocrit (Bld) [Volume fraction] 24.1 % Low 34.0-46.0 [facility] Comment on above: Performed By: #### 2 [id number] #### [facility] [address] [place] [address] Hemoglobin (Bld) [Mass/Vol] 7.7 g/dL Low 12.0-16.0 [facility] Comment on above: Performed By: #### 2 [id number] #### [facility] [address] [place] [address] Hypochromia Auto Ql (Bld) PRESENT Invalid Interpretation Code [facility] Comment on above: Performed By: #### 2 [id number] #### [facility] [address] [place] [address] MCH (RBC) [Entitic mass] 21.4 pg Low 27.0-34.0 [facility] Comment on above: Performed By: #### 2 [id number] #### [facility] [address] [place] [address] MCHC (RBC) [Mass/Vol] 31.8 g/dL Normal 31.4-36.0 [facility] Comment on above: Performed By: #### 2 [id number] #### [facility] [address] [place] [address] MCV (RBC) [Entitic vol] 67.4 fL Low 80.0-100.0 [facility] Comment on above: Performed By: #### 2 [id number] #### [facility] [address] [place] [address] Microcytes Ql (Bld) PRESENT Invalid Interpretation Code [facility] Comment on above: Performed By: #### 2 [id number] #### [facility] [address] [place] [address] Platelet mean volume (Bld) [Entitic vol] 8.8 fL Normal 6.4-10.8 [facility] Comment on above: Performed By: #### 2 [id number] #### [facility] [address] [place] [address] Platelets (Bld) [#/Vol] 209.0 E9/L Normal 150.0-500.0 [facility] Comment on above: Performed By: #### 2 [id number] #### [facility] [address] [place] [address] RBC (Bld) [#/Vol] 3.6 E12/L Low 4.3-5.9 [facility] Comment on above: Performed By: #### 2 [id number] #### [facility] [address] [place] [address] WBC corrected for nucl RBC Auto (Bld) [#/Vol] 8.9 E9/L Normal 4.0-11.0 [place] Comment on above: Performed By: #### 2 [id number] #### [facility] [address] [place] [address] RBC size Nom (Bld) NORMAL Invalid Interpretation Code [facility] Comment on above: Performed By: #### 2 [id number] #### [facility] [address] [id number] HEMATOLOGYOrdered By: SYSTEM SYSTEM on 09-10-2023 Erythrocyte [...] Strep colonization by PCR Negative Normal Negative [facility] Comment on above: Performed By: #### 4 [id number] #### [facility] [address] [place] [address] C Urineon 08-31-2023 Bacteria identified Cx Nom [...] Locations R1: This test was performed at: [facility], [address] [place] [address], [facility]- , [place], Normal [facility] Comment on above: Performed By: #### 2 [id number] #### [facility] [address] [place] [address] URINALYSISOrdered By: SYSTEM SYSTEM on 08-29-2023 Bilirubin [...] that meet specific criteria set forth by [facility]. Epithelial cells.squamous Auto (Urine [...] Auto SS Coding Summary.on 07-25-2023 Coding Summary. QETYIzjd52XEa0lDu+PG hlYWQ+BJ6OOLIqF70ujP RqsQ9mY3PNIQpVNqntAB CSYZvBYnSwhhOfVQ2lmN NjZXJu IC8+GJ8mSJLwAjkvzSKb r7X5xNT4F71flv4sURol eZZ5XMKbFnRoxgizq7yk yDo4ISxuJxkxYeRm SCMzxO64DMJ4cV20Si73 cFWdjLSaz9ltdYw0YlKq HCTvRTO0qCwqPXtus9Si LZSyY14phNGcg6U2 IGNvbGxhcHNlOyBlbXB0 oV9wVJuyxdvzk9dvhxhc Gur9ul83pHKfu8Z9zRD3 S8BfrtL3XFFcjGVr WrrkvPRXpJ2nslckv9wn bbsgSoHhTQPhNGb3EHz7 CJDwvGazEjHeDY85AAR9 BNTqfkDtK2LoYACk yXkeYeN0r3W4Jn6HS9QL CshgY3MUFKVBUHvqyOZ+ SU52qk87J7UeZykeHrk0 TKEzNDU1bFN8qW9g SGIgTYuhu1G0rGB7Q0Ps swStxg3da4htCDOfMEdl K32lxNMho2A9KGUqgUI6 BVBtqHyiWwPpgU79 Oyc+MESvtWfuc8VcKqdw i9tel4seuCh3ZbmyJEPp agFtzXrwPLX1p5QwVt2f IPExgOY0hSC5sQ2s LvXlIcZ9YZudA625ItGe jRVdHycvZ14iH2ShrPT+ CVIfEqu5GCErzDkeYA4e M1UuZRCnpftmeIUt eEhyBX1dDIDjwwjuTJBm eX9mIPLrU1h5TjKcClU2 REioG8ZmIGRojoujYk66 tJ7aZrToWaS6LXjy Y0TcrrB6LTFyoBSnLWmi KOI4C45ec3G7WFEoHDJt HKN7jZI3uT3mhZjqeidg bGVmdDsgdmVydGlj NUanXUrqH285CTQtsAmp PkNvZGluZyBEYXRlOiAg MDYvMTkvMjAyNDwvdGQ+ QRWaCPT2yUnqKVGw eYZaGZnqGj1mqAhyyBhj OR4dBPAiniqjSFMqnV1f RNChlWCpaEkuCG1vJHYe lhkzm626XxAfGLW6 JNIazEMyA5KomQ7dMnOw UVLxWQVhN4KhcABlIBxd A070TYjlUmR6TJTimaSu W9RzJKNhrTtnHyW5 d3T9Gr0Ms7QvgvkiL0Zk cURfDxTvZmnrYHw1E0Po PjwvdHI+HQ38RJXmCC13 DBk6SPL5wNhoRNcu HEByH8CroU7lWwFrXVNi ZGRkOyc+PHRhYmxlIHdp ZHRoPScxMDAlJyBzdHls OF2mVj1cXXHwAELc qNzxfPQgXkGyd2odBSLa JEniLK3etBjhF0HbpMU4 LFZjp2z1Bx62R10lG9Zg dXA+BLQuxWF0iOK0 jX3fNwPdRaI7RBkwJ957 LwDnmRCtKnytf6nqh3fn gGt9QbV3YFTmzjTppGsr IJO3t2FoUp80V24h IHdpZHRoPSIxNSUiIHZh hTwwzp2jmT4pHg1+PGNv pFP6nBW6oK4jRlZpZwJ6 ZRwpK006OdAciWGn Amiid4ioy0vmvCf4AmVp MTBzxxVxfNkdWUN8o3Gd Dn94T7HdcUqnb7MbRsd2 rz16aCBmw8T4zNA6 T7HgQWXlieuxbFAtjWjc XI2pSLNbymxeEYQudQ0o LVJrQ7j4CkVoDxI5OSkb S3JaieX8ZPMmmMJf BDNwvXIKgK9kegzoi8oi zsteYtIaZDLbQQy4IHp9 AGEljRwaNuAeCQR7RxZ9 RRM0kEOsfI4xtNkt udsccK8yPse+BKB6pKSh rGWSDE5tOwitqSJ+PHRk SVC1lBxpAUbxVIBzzI6b XJCrQ7e7QfGmJcW4 HJxvG6LwrrI7BRWgpMJk RFDdkDIPrF7hwyqrk8eu rjvoPhHfUWKlWXm3QYa8 LWFsaWduOiBsZWZ0 PbT3SYN4xXDrzV2xxPmw ixgfsV1kMem+QmlydGgg DDE3AEa5E2LzQmq4JDMv uFbqRJ6gwHZfBDtd Wp9oaGjutSzxHD9uTESs knqmt971QmLxx3psUCOn fMZyGJicDMP4G89nv8D2 MLMzXBSzTTX5cXO6 sB2msVjvphgzqJBpyKap flUvgSzjXMbiSYomB684 JJNzpYshNzJpMMt9T3Jy Kyv2RXTfvHzcBY0r fMMxMCojJz3ybXhfrHlz VU1eIDOhtpovp078WjPp t3uuJOJrgSBeWTrvXSG4 D13mv3W7NGCkEMQn MPO2uGL8jR7yiBljqapo bGVmdDsgdmVydGljYWwt GDrwO351MIXdpDslWnIm kUu1B7PoWxk8NFAs iVajUX6cqVXyJAugRw1s dVdcmXplQU3dNOQdhpuv e237WePwf6zjVCXetJGr PAyhDQF0R79ys4J9 TACdRUTwZAH4mTN0sJ3d bGlnbjogbGVmdDsgdmVy vWrtCCblVUzcY784MISm cDsnPlBhdGllbnQg FNlfRNr4X1VgNealuJE+ BJ43DWUeYJ14hVCxiUYo g6otpSl8CcXnXAPpCJS1 jHimLPnxx6NoDYTl R96anATpi7I8BBVwyDza hMPkHyGbqTP8iM2qNJkv xnkqo4zzxposBulrv7bb yo98zM71F18fRDby ZHRoPSIzMCUiIHZhbGln oy1uvY7sYn5+PGNvbCB3 wAI5uE5hLOAeYrK8NOmx B942ShPyqTAfYdin v8xab4qvzUf8YbX1BPAd mpEoiJxjRNF7b3QiUm29 L60mUGtgUNCwSBKtOIWw HOFooDugzy2jdS3l Ii8+IUIxiNN4vTI4xZ0l OpScOkG0WNueR311GiKf ySMsEsimO50zW6QuoVN+ ZWVfSoh8LFXxbEnk YZ1wxLZjXYrbRk6jHSR1 QaQjUaKeMKtwK4UjWJIw ujvwixccmPV9JGJyEISr xM15Co5fyJpoNUEb xTNTlY7vuajuw1wjvmzk FoTyYUIeWTy5PIa4EGEa tAagZnIeJKO1SxW0RDJ3 uGFmsM2bfIbdfljg dR4hB9XeMERpmqjaRy93 sP8qQjJcIwS3XQdoIui+ X9wKFnCCILRERXxSWx8Q NTD4Y4BcZzo3DMPy cJhuZE6reNWhEXmtJl3f uYjcuLolRJ4xFXVgsvzd JLDkuD3lIVVlnNTouEse PW2wYCVcyavyz570 OnOaKNA5QNVuiIOcR8Tm iN1sGfObSOFqTXUuC7Tw pIDyNVfmH496BXteShF1 WEFhfcOaS9CtVZAf iHvvNkP7n6O9Rz2qZy0b Ad3tLGV2BT93NH34tSDk i3D7nFX5P8WeWPXfemrl qehziPG5FCOjRZNc lW71gPEoHKzkNn9tx1A9 k848TEVzAZGonD07Ke3f xVxlJEDpeATJeY8pefli w6siciccJrCsDNHx ZUc3GCn4GPKihNxnFkMr FTE9TmE9PYJ9rSJksT6k pQmreohcbC6dGnx+MTkg FOVdzpU2C4WcGpf2 PSQkaVsfZK3ziDVjVPcz Ze0nxMtpgRqpAZ9hYEUy ufvvLMAcgC3pNMYexIOt iHbqYK9dGNSsfnnr d470JzUrZDJ8JIWkxWXu P9RbyK9rDfQfRUEbAKCh Q4SwkKDkNYtkE237YNjr LuD2THFrgyYkO3Ff ZTHqbFjdMwV6h1J3Aa9L UC3esQF1K5MqGla1OHTe sImqCI9dqBVfKDdoZb9h fTgbxNvaTE3oSXUo dqaqGASovH0wJLNraFYw aHubZQ8rZGEzrxpnt252 QrRbTCU6NFIjmASuQ0Fd cH5aHmRiDRLxJTKe R9HaqWZgDJinQ708LDjy CjO7YAGpwfJfR4PjDBBh xBotQoQ7s5D0Qg0FKuKW zigfP5E2F0OuGblt dHI+HF90ONQbAJ27lPSi rJObg2cooQc0XtXeVATr BLO6hYwmSPnkp4UqYZKw N04jaUQqo9X2WNXm aRcyhSPvEyLnhOS8oX6i TEmswsbfr6ntrmbiVsee l1rqwc27qO03X53bXBhl ZHRoPSIzMCUiIHZh kIediq4srN5mIx9+PGNv oGV1gGB4gV4xTzFsNwG7 TRifC775YbZteCQeDslt o0uve3wfxZa0GgMu VAIibdWjfOioMPI1n5Eg Af73R91bWDifKYApTFHw FZHrREByxFulgs4ueZ8p Ii8+RE5tv9ywgn36 dY78yUT+WPVaZMM6mBme KVuuTNWgzT1aCRyvImE2 DEZhToMiyS42kVYbSEdh Mk3nmAgnuPxfOP5c JJJbtodbn017GtHeb4ee LJDugQYlVTqrMML1P20w t4B7DMCpCLOlIXI0hJF7 sZ6gtRkvrbhyfMYo dDsgdmVydGljYWwtYWxp V863XOSvfChtOqOhjZRz S7scoqVDTF6eLjxemPP+ MCYgPCT8eLzaUDnx QXAzrB9eNBDcO7h7VrPu OgM5DBsjJ8AwtcD6OXIk qBYaTALzhLOGwI9perqy z8mpuxqpKzMePMAz QQp1SUp8ITVefMswSwNm HZB2MpO4WMB2cBWseK7i bSkptknxbF5yHan+RklO OjwvdGQ+PHRkIHN0 iQtmQZfkRFAkeB0hDKIa N4g3UxPiHjU4TFuzK3Pj cmN5PNMiwTVaICKqgCJY fH9lcabxo1yuwsws VeWbEWZkHOu0GTa6SOQv fShfIoXnRKH1CiJ7KQZ1 eUPosT4kuNoyaoxniL8g Oyc+TVJOOjwvdGQ+ PXZePTJ5yIezGBdoCLPb kP9wWSQvY6k1XvLsVhO6 WKcpZ6WljuB7GBOiqCZi RLQuaHRPrH9uubir w2ouzavqEaNaBPNiKSk1 POv0DGKloWazWjDzEAI6 FzD0YEY3cETpyG8bgAkx frzzcS0fQrk+UGF5 FPS6OP06KP60R1TrHrhr dGFibGU+PHRhYmxlIHdp ZHRoPScxMDAlJyBzdHls EZ6cJn9rTKMmGNOa bGxhcHNlOiBjb (more content not included)... Normal [facility] C Urineon 07-21-2023 Bacteria identified Cx [...] Locations R1: This test was performed at: [facility], [address] [place] [address], [id number] [place] [address], [facility] Comment on above: Performed By: #### 2 [id number] #### [facility] [address] [place] [address] Nursing Assessmenton 024 Nursing Assessment [id number] 3#1.00TIFF [facility] Consent for Treatmenton 07-06 Consent for Treatment [id number] #1.00TIFF [facility] Discharge Instructionson Discharge Instructions [id number] #1.00TIFF [facility] Inpatient Clinical Summaryon 07-19-2023 Inpatient Clinical Summary [address] [address] Clinical Summary Person Information Name: JORDIN TYLER[place] Age: 18 Years : 2005 Sex: Female PCP: MARK STONE Marital Status: Single Phone: [phone] Race: White Ethnicity: Non- or Language: Sudanese Visit Id: Visit Reason: ABD PAIN Speciality: Acuity: Obs Enc Type: OB Triage Med Service: Obstetrics Arrival: 07/19/2023 06:03:39 Discharge: 07/19/2023 07:45:00 Dispo Type: Home (Routine DC) Address: [address] [facility] [id number] Provider Notes: Diagnosis: Problems Active (12/20/2022) 36 [...] Address: When: Magalis Snow [address], [address] [address] Business (1) In 6 days 07/25/2023 Comments: Call for any problems. Call physician if symptoms worsen Return for contractions closer, longer, harder Return for decreased movement Return if ruptured membranes or vaginal bleeding Patient Education Information: Normal [facility] Inpatient Patient Summaryon 07-19-2023 Inpatient Patient Summary [address] [address] Patient Discharge Instructions PERSON INFORMATION [...] With: Address: When: Magalis Snow [address] [address] [employer] (1) In 6 days 07/25/2023 Comments: Call [...] Leaflets: You may receive a survey from [employer] asking you to rate your care experience. [...] signed up for this yet, please contact [employer] at [phone] to get signed up today. NGUYEN Award [...] QR code below. Thank you for choosing [facility] Normal [facility] Insurance Correspondence Off ice07-19-2023 Insurance Correspondence Office [id number] #1.00TIFF Normal [facility] UA with Cult Rflxon 07-19-19 24 Bilirubin Ql (U) Negative Normal Negative [facility] Comment on above: Performed By: #### 4 [id number] #### [facility] [address] [place] [address] Clarity (U) Clear Normal Clear [facility] Comment on above: Performed By: #### 4 [id number] #### [facility] [address] [place] [address] Color (U) Light-Yellow Normal Yellow [facility] Comment on above: Result Comment: Micr oscopic readings are only performed on those samples that meet specific criteria set forth by [facility]. Performed By: #### 4 [id number] #### [facility] [address] [place] [address] Epithelial cells.squamous Auto (Urine sed) [#/Area] 5-8 Invalid Interpretation Code [facility] Comment on above: Performed By: #### 4 [id number] #### [facility] [address] [place] [address] Glucose Ql (U) Negative Normal Negative [facility] Comment on above: Performed By: #### 4 [id number] #### [facility] [address] [place] [address] Hemoglobin Auto test strip (U) [Mass/Vol] Negative Normal Negative [facility] Comment on above: Performed By: #### 4 [id number] #### [facility] [address] [place] [address] Ketones Auto test strip Ql (U) Negative Normal Negative [facility] Comment on above: Performed By: #### 4 [id number] #### [facility] [address] [place] [address] Leukocyte esterase Auto test strip Ql (U) 250 Jeremias/uL Abnormal Negative [facility] Comment on above: Performed By: #### 4 [id number] #### [facility] [address] [place] [address] Mucus Auto Ql (U) Trace Normal Negative [facility] Comment on above: Performed By: #### 4 [id number] #### [facility] [address] [place] [address] Nitrite Auto test strip Ql (U) Negative Normal Negative [facility] Comment on above: Performed By: #### 4 [id number] #### [facility] [address] [place] [address] pH (U) 6.5 [pH] Invalid Interpretation Code 5.0-9.0 [facility] Comment on above: Performed By: #### 4 [id number] #### [facility] [address] [place] [address] Protein Ql (U) Negative Normal Negative [facility] Comment on above: Performed By: #### 4 [id number] #### [facility] [address] [place] [address] RBC Ql (U) 0-3 Normal 0-3 [facility] Comment on above: Performed By: #### 4 [id number] #### [facility] [address] [place] [address] Specific gravity (U) [Rel density] 1.019 Invalid Interpretation Code 1.005-1.030 [facility] Comment on above: Performed By: #### 4 [id number] #### [facility] [address] [place] [address] Urobilinogen (U) [Mass/Vol] Negative Normal Negative [facility] Comment on above: Performed By: #### 4 [id number] #### [facility] [address] [place] [address] WBC Auto (Urine sed) [#/Area] 0-5 Normal 0-5 [facility] Comment on above: Performed By: #### 4 [id number] #### [facility] [address] [place] [address] Type of Urine collection method Clean Catch Normal [facility] Comment on above: Performed By: #### 4 [id number] #### [facility] [address] [place] [address] URINALYSISOrdered By: SYSTEM SYSTEM on 07-19-2023 Bilirubin Ql (U) Negative Normal Negativemg/ d L [facility] UA Auto SS Clarity (U) Clear (07/19/23 6:34 AM) Normal Clear [facility] UA Auto SS Color (U) Light-Yellow 1 (07/19/23 6:34 AM) Normal Yellow [facility] UA Auto SS Comment on above: Interpretive Data: M icroscopic readings are only performed on those samples that meet specific criteria set forth by [facility]. Epithelial cells.squamous Auto (Urine [...] Urobilinogen (U) [Mass/Vol] Negative Normal Negativemg/d L [facility] UA Auto SS WBC Auto (Urine sed) [#/Area] 0-5 graded/HPF Normal 0-5graded/HP F [facility] UA Auto SS URINALYSISOrdered By: Kristy Wallace on 07-19-2023 UA Spec Desc Clean Catch (07/19/23 6:34 AM) Normal [facility] UA Auto SS C Urineon 07-11-2023 Bacteria [...] Locations R1: This test was performed at: [facility], [address] [place] [address], [address] , , Normal [facility] Comment on above: Performed By: #### 2 [id number] #### [facility] [address] [place] [address] HIV Screen 4th Generation wR fxon 07-11-2023 HIV 1+2 Ab+HIV1 p24 Ag IA Ql Non-Reactive Invalid Interpretation Code Non Reactive [facility] Comment on above: Result Comment: HIV Negative HIV-1/HIV-2 antibodies and HIV-1 p24 antigen were NOT detected. There is no laboratory evidence of HIV infection. Performed at: [facility] [id number] PhD Jomar Verma Performed By: #### 9 [id number] #### [facility] [address] [place] [address] Hep Bs Agon 07-11-2023 HBV surface Ag IA Ql Negative Invalid Interpretation Code Negative [facility] Comment on above: Result Comment: Perf ormed at: [facility] [address] [place], [place] [id number] PhD Jomar Verma Performed By: #### 2 [id number] #### [facility] [address] [place] [address] RPR with Conf Rfxon 07-11-19 24 Reagin Ab RPR Ql (S) Non-Reactive Invalid Interpretation Code Non Reactive [facility] Comment on above: Result Comment: [facility]: [facility] [address], [place] [id number] PhD Jomar Verma Performed By: #### 1 [id number] #### [facility] [address] [place] [address] ABO/Rhon 07-09-2023 ABO/Rh Positive Invalid Interpretation Code [facility] Comment on above: Performed By: #### 2 [id number] #### [facility] [address] [place] [address] ABSCon 07-09-2023 ABSC Gel Interp Negative Normal [place] Comment on above: Performed By: #### 1 [id number] #### [facility] [address] [id number] BLOOD BANKOrdered By: Tobias Ospina on 07-09-2023 ABO/Rh Interp Positive Invalid Interpretation Code [facility] BB Subsection ABSC Gel Interp Negative (07/09/23 3:58 PM) Normal [facility] BB Subsection CBC w/ Auto Diffon Anisocytosis Ql (Bld) PRESENT Invalid Interpretation Code [facility] Comment on above: Performed By: #### 2 [id number] #### [facility] [address] [place] [address] Basophils/100 WBC (Bld) 0.3 % Normal 0.0-2.0 [facility] Comment on above: Performed By: #### 2 [id number] #### [facility] [address] [place] [address] Basophils/Leukocytes Auto (Bld) [Pure # fraction] 0.0 E9/L Normal 0.0-0.2 [facility] Comment on above: Performed By: #### 2 [id number] #### [facility] [address] [place] [address] Eosinophils (Bld) [#/Vol] 0.1 E9/L Normal 0.0-0.5 [facility] Comment on above: Performed By: #### 2 [id number] #### [facility] [address] [place] [address] Eosinophils/100 WBC (Bld) 1.3 % Normal 0.0-8.0 [facility] Comment on above: Performed By: #### 2 [id number] #### [facility] [address] [place] [address] Erythrocyte distribution width (RBC) [Ratio] 15.0 % High 10.9-14.2 [facility] Comment on above: Performed By: #### 2 [id number] #### [facility] [address] [place] [address] Hematocrit (Bld) [Volume fraction] 28.8 % Low 34.0-46.0 [facility] Comment on above: Performed By: #### 2 [id number] #### [facility] [address] [place] [address] Hemoglobin (Bld) [Mass/Vol] 9.2 g/dL Low 12.0-16.0 [facility] Comment on above: Performed By: #### 2 [id number] #### [facility] [address] [place] [address] Hypochromia Auto Ql (Bld) PRESENT Invalid Interpretation Code [facility] Comment on above: Performed By: #### 2 [id number] #### [facility] [address] [place] [address] Lymphocytes (Bld) [#/Vol] 2.2 E9/L Normal 1.0-4.0 [facility] Comment on above: Performed By: #### 2 [id number] #### [facility] [address] [place] [address] Lymphocytes/100 WBC (Bld) 19.1 % Normal 14.0-50.0 [facility] Comment on above: Performed By: #### 2 [id number] #### [facility] [address] [place] [address] MCH (RBC) [Entitic mass] 23.5 pg Low 27.0-34.0 [facility] Comment on above: Performed By: #### 2 [id number] #### [facility] [address] [place] [address] MCHC (RBC) [Mass/Vol] 31.9 g/dL Normal 31.4-36.0 [facility] Comment on above: Performed By: #### 2 [id number] #### [facility] [address] [place] [address] MCV (RBC) [Entitic vol] 73.8 fL Low 80.0-100.0 [facility] Comment on above: Performed By: #### 2 [id number] #### [facility] [address] [place] [address] Microcytes Ql (Bld) PRESENT Invalid Interpretation Code [facility] Comment on above: Performed By: #### 2 [id number] #### [facility] [address] [place] [address] Monocytes (Bld) [#/Vol] 0.8 E9/L Normal 0.2-1.0 [facility] Comment on above: Performed By: #### 2 [id number] #### [facility] [address] [place] [address] Neutrophils (Bld) [#/Vol] 8.1 E9/L High 2.0-7.5 [facility] Comment on above: Performed By: #### 2 [id number] #### [facility] [address] [place] [address] Neutrophils/100 WBC (Bld) 72.3 % Normal 36.0-75.0 [facility] Comment on above: Performed By: #### 2 [id number] #### [facility] [address] [place] [address] Ovalocytes LM Ql (Bld) PRESENT Invalid Interpretation Code [facility] Comment on above: Performed By: #### 2 [id number] #### [facility] [address] [place] [address] Platelet mean volume (Bld) [Entitic vol] 8.9 fL Normal 6.4-10.8 [facility] Comment on above: Performed By: #### 2 [id number] #### [facility] [address] [place] [address] Platelets (Bld) [#/Vol] 251.0 E9/L Normal 150.0-500.0 [facility] Comment on above: Performed By: #### 2 [id number] #### [facility] [address] [place] [address] RBC (Bld) [#/Vol] 3.9 E12/L Low 4.3-5.9 [facility] Comment on above: Performed By: #### 2 [id number] #### [facility] [address] [place] [address] RBC size Nom (Bld) SEE MORPHOLOGY Invalid Interpretation Code [facility] Comment on above: Performed By: #### 2 [id number] #### [facility] [address] [place] [address] WBC corrected for nucl RBC Auto (Bld) [#/Vol] 11.3 E9/L High 4.0-11.0 [place] Comment on above: Performed By: #### 2 [id number] #### [facility] [address] [place] [address] Consent for Treatmenton Consent for Treatment [id number] #1.00TIFF Normal [facility] Consent for Treatment [id number] #1.00TIFF Normal [facility] HEMATOLOGYOrdered By: SYSTEM SYSTEM on [...] Remisol Heme Physician Orderon 07-09-2023 Physician Order [id number] #1.00TIFF Normal [facility] Physician Order [id number] #1.00TIFF Normal [facility] Physician Order [id number] #1.00TIFF Normal [facility] No Panel Informationon 03-20 Glucose, UA Negative Negative - 1999(110) ++++ mg/dL [facility] Protein, UA Negative Negative - 1999(20) ++++ mg/dL [facility] ED Note-Physicianon 02-17-19 ED Note-Physician Basic Information Time Seen: Sadie Macdonald PA-C 02/13/2023 14:21 Chief Complaint 8 weeks sees [facility]. appt. scheduled for 02/23. states she has been vomiting for a couple of weeks and feels dehydrated. denies vaginal bleeding or any cramping. History of Present Illness 18-year-old female who is 8 weeks presents for continued vomiting. She admits to dysuria. She states that she called her [employer] today and they were going to give [...] syndrome. She is to follow-up with her [employer]. Patient has not had any more vomiting, but still complains of nausea and dry heaving will be given Phenergan. She is now eating ice cream. 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 Afebrile, not tachycardic, not tachypneic, nontoxic-appearing, tolerating p.o. and ambulating at baseline and hemodynamically stable to be discharged home. Educated side effect of medications. Answered all questions. Patient in agreement with treatment. Assessment/Plan 1. Hyperemesis gravidarum (O21.0: Mild hyperemesis gravidarum) Ordered: ondansetron, 4 mg = 1 tab(s), Oral, q8hr, X 2 day(s), # 6 tab(s), Refills(s) 0, [id number], 165, cm, 02/13/23 14:25:00 EST, Height/Length Dosing, 69.5, kg, 02/13/23 14:25:00 EST, Weight Dosing promethazine, 12.5 mg = 1 supp, Rectal, q4hr, PRN for motion sickness, X 5 day(s), # 30 supp, Refills(s) 0, [id number], 165, cm, 02/13/23 14:25:00 EST, Height/Length Dosing, 69.5, kg, 02/13/23 14:25:00 EST, Weight Dosing 2. (Z34.90: Encounter for supervision of normal , unspecified, unspecified trimester) Ordered: ondansetron, 4 mg = 1 tab(s), Oral, q8hr, X 2 day(s), # 6 tab(s), Refills(s) 0, [id number], 165, cm, 02/13/23 14:25:00 EST, Height/Length Dosing, 69.5, kg, 02/13/23 14:25:00 EST, Weight Dosing promethazine, 12.5 mg = 1 supp, Rectal, q4hr, PRN for motion sickness, X 5 day(s), # 30 supp, Refills(s) 0, [id number], 165, cm, 02/13/23 14:25:00 EST, Height/Length Dosing, 69.5, kg, 02/13/23 14:25:00 EST, Weight Dosing 3. UTI in (O23.40: Unspecified infection of urinary tract in , unspecified trimester) Ordered: ondansetron, 4 mg = 1 tab(s), Oral, q8hr, X 2 day(s), # 6 tab(s), Refills(s) 0, [id number], 165, cm, 02/13/23 14:25:00 EST, Height/Length Dosing, 69.5, kg, 02/13/23 14:25:00 EST, Weight Dosing promethazine, 12.5 mg = 1 supp, Rectal, q4hr, PRN for motion sickness, X 5 day(s), # 30 supp, Refills(s) 0, [id number], 165, cm, 02/13/23 14:25:00 EST, Height/Length Dosing, 69.5, kg, 02/13/23 14:25:00 EST, Weight Dosing 4. Hypokalemia (E87.6: Hypokalemia) Ordered: ondansetron, 4 mg = 1 tab(s), Oral, q8hr, X 2 day(s), # 6 tab(s), Refills(s) 0, [id number], 165, cm, 02/13/23 14:25:00 EST, Height/Length Dosing, 69.5, kg, 02/13/23 14:25:00 EST, Weight Dosing promethazine, 12.5 mg = 1 supp, Rectal, q4hr, PRN for motion sickness, X 5 day(s), # 30 supp, Refills(s) 0, [id number], 165, cm, 02/13/23 14:25:00 EST, Height/Length Dosing, 69.5, kg, 02/13/23 14:25:00 EST, Weight Dosing 5. Elevated LFTs (R79.89: Other specified abnormal findings of blood chemistry) Ordered: ondansetron, 4 mg = 1 tab(s), Oral, q8hr, X 2 day(s), # 6 tab(s), Refills(s) 0, Pharmacy: [facility] #[id number], 165, cm, 02/13/23 14:25:00 EST, Height/Length Dosing, 69.5, kg, 02/13/23 14:25:00 EST, Weight Dosing promethazine, 12. (more content not included)... Normal [facility] Comment on above: Result Comment: [...] FREE TEXT SOURCE: Sadie Macdonald PA-C, PA-C, Sadie Byrne FINAL REPORTS Final Report [] Verified Date/Time: 02/15/2023 10:01 EST 2,000 cfu/ml Mixed skin contaminants Performing Locations R1: This test was performed at: [facility], [address] [place] [address], [address]- , , Normal [facility] Comment on above: Performed By: #### 2 [id number], [id number] #### [facility] [address] [place] [address] Auto Diffon 02-13-2023 Basophils/100 WBC (Bld) 0.6 % Normal 0.0-2.0 [facility] Comment on above: Order Comment: Order Added by Discern Expert. Performed By: #### 1 [id number] #### [facility] [address] [place] [address] Basophils/Leukocytes Auto (Bld) [Pure # fraction] 0.1 E9/L Normal 0.0-0.2 [facility] Comment on above: Order Comment: Order Added by Discern Expert. Performed By: #### 1 [id number] #### [facility] [address] [place] [address] Eosinophils/100 WBC (Bld) 0.4 % Normal 0.0-8.0 [facility] Comment on above: Order Comment: Order Added by Discern Expert. Performed By: #### 1 [id number] #### [facility] [address] [place] [address] Eosinophils/Leukocytes Auto (Bld) [Pure # fraction] 0.0 E9/L Normal 0.0-0.5 [facility] Comment on above: Order Comment: Order Added by Discern Expert. Performed By: #### 1 [id number] #### [facility] [address] [place] [address] Lymphocytes/100 WBC (Bld) 22.3 % Normal 14.0-50.0 [facility] Comment on above: Order Comment: Order Added by Discern Expert. Performed By: #### 1 [id number] #### [facility] [address] [place] [address] Lymphocytes/Leukocytes Auto (Bld) [Pure # fraction] 1.9 E9/L Normal 1.0-4.0 [facility] Comment on above: Order Comment: Order Added by Discern Expert. Performed By: #### 1 [id number] #### [facility] [address] [place] [address] Monocytes/100 WBC (Bld) 8.5 % Normal 4.0-14.0 [facility] Comment on above: Order Comment: Order Added by Discern Expert. Performed By: #### 1 [id number] #### [facility] [address] [place] [address] Monocytes/Leukocytes Auto (Bld) [Pure # fraction] 0.7 E9/L Normal 0.2-1.0 [facility] Comment on above: Order Comment: Order Added by Discern Expert. Performed By: #### 1 [id number] #### [facility] [address] [place] [address] Neutrophils/100 WBC (Bld) 68.2 % Normal 36.0-75.0 [facility] Comment on above: Order Comment: Order Added by Discern Expert. Performed By: #### 1 [id number] #### [facility] [address] [place] [address] Neutrophils/Leukocytes Auto (Bld) [Pure # fraction] 5.7 E9/L Normal 2.0-7.5 [facility] Comment on above: Order Comment: Order Added by Discern Expert. Performed By: #### 1 [id number] #### [facility] [address] [place] [address] CBC w/ Auto Diffon 4 Erythrocyte distribution width (RBC) [Ratio] 19.0 % High 10.9-14.2 [facility] Comment on above: Performed By: #### 1 [id number], [id number] #### [facility] [address] [place] [address] Hematocrit (Bld) [Volume fraction] 36.7 % Normal 34.0-46.0 [facility] Comment on above: Performed By: #### 1 [id number], [id number] #### [facility] [address] [place] [address] Hemoglobin (Bld) [Mass/Vol] 11.9 g/dL Low 12.0-16.0 [facility] Comment on above: Performed By: #### 1 [id number], [id number] #### [facility] [address] [place] [address]58[address] MCH (RBC) [Entitic mass] 24.7 pg Low 27.0-34.0 [facility] Comment on above: Performed By: #### 1 [id number], [id number] #### [facility] [address] [place] [address]886 MCHC (RBC) [Mass/Vol] 32.5 g/dL Normal 31.4-36.0 [facility] Comment on above: Performed By: #### 1 [id number], [id number] #### [facility] [address] [place] [address] 30091 MCV (RBC) [Entitic vol] 75.9 fL Low 80.0-100.0 [facility] Comment on above: Performed By: #### 1 [id number], [id number] #### [facility] [address] [place] [address] Platelet mean volume (Bld) [Entitic vol] 8.7 fL Normal 6.4-10.8 [facility] Comment on above: Performed By: #### 1 [id number], [id number] #### [facility] [address] [place] [address] Platelets (Bld) [#/Vol] 326.0 E9/L Normal 150.0-500.0 [facility] Comment on above: Performed By: #### 1 [id number], [id number] #### [facility] [address] [place] [address] RBC (Bld) [#/Vol] 4.8 E12/L Normal 4.3-5.9 [facility] Comment on above: Performed By: #### 1 [id number], [id number] #### [facility] [address] [place] [address] WBC corrected for nucl RBC Auto (Bld) [#/Vol] 8.3 E9/L Normal 4.0-11.0 [place] Comment on above: Performed By: #### 1 [id number], [id number] #### [facility] [address] [place] [address] CHEMISTRYOrdered By: SYSTEM SYSTEM on 02-13-2023 Albumin [...] 02-13-2023 Albumin [Mass/Vol] 4.2 g/dL Normal 3.3-5.0 [facility] Comment on above: Performed By: #### 1 [id number] #### [facility] [address] [place] [address] Albumin/Globulin [Mass ratio] 1.3 {ratio} Normal 1.1-2.2 [facility] Comment on above: Performed By: #### 1 [id number] #### [facility] [address] [place] [address] Alk Phos 114 Int._Unit/L High 21-98 [place] Comment on above: Performed By: #### 1 [id number] #### [facility] [address] [place] [address] ALT 86 Int._Unit/L High 6-46 [facility] Comment on above: Performed By: #### 1 [id number] #### [facility] [address] [place] [address] Anion gap [Moles/Vol] 16 mmol/L Normal 6-16 [facility] Comment on above: Performed By: #### 1 [id number] #### [facility] [address] [place] [address] AST 51 Int._Unit/L High 5-43 [facility] Comment on above: Performed By: #### 1 [id number] #### [facility] [address] [place] [address] Bili Total 0.7 mg/dL Normal 0.0-1.1 [facility] Comment on above: Performed By: #### 1 [id number] #### [facility] [address] [place] [address] BUN/Creat Ratio 14 No Units Normal 10-20 [facility] Comment on above: Performed By: #### 1 [id number] #### [facility] [address] [place] [address] Calcium [Mass/Vol] 9.3 mg/dL Normal 8.9-11.1 [facility] Comment on above: Performed By: #### 1 [id number] #### [facility] [address] [place] [address] Chloride [Moles/Vol] 103 mmol/L Normal 101-111 [facility] Comment on above: Performed By: #### 1 [id number] #### [facility] [address] [place] [address] CO2 [Moles/Vol] 21 mmol/L Normal 21-31 [place] Comment on above: Performed By: #### 1 [id number] #### [facility] [address] [place] [address] Creatinine [Mass/Vol] 0.5 mg/dL Normal 0.5-1.3 [facility] Comment on above: Performed By: #### 1 [id number] #### [facility] [address] [place] [address] Globulin (S) [Mass/Vol] 3.3 g/dL Normal 1.4-4.0 [facility] Comment on above: Performed By: #### 1 [id number] #### [facility] [address] [place] [address] Glucose [Mass/Vol] 84 mg/dL Normal 55-199 [facility] Comment on above: Performed By: #### 1 [id number] #### [facility] [address] [place] [address] Potassium [Moles/Vol] 3.4 mmol/L Low 3.5-5.3 [facility] Comment on above: Performed By: #### 1 [id number] #### [facility] [address] [place] [address] Protein [Mass/Vol] 7.5 g/dL Normal 6.0-7.8 [facility] Comment on above: Performed By: #### 1 [id number] #### [facility] [address] [place] [address] Sodium [Moles/Vol] 137 mmol/L Normal 135-145 [facility] Comment on above: Performed By: #### 1 [id number] #### [facility] [address] [place] [address] Urea nitrogen [Mass/Vol] 7 mg/dL Normal 5-21 [facility] Comment on above: Performed By: #### 1 [id number] #### [facility] [address] [place] [address] Consent for Treatmenton Consent for Treatment [id number] #1.00TIFF Normal [facility] Discharge Instructionson Discharge Instructions [id number]#1.00TIFF Normal [facility] ED Clinical Summaryon 2023 ED Clinical Summary [address] [address] ED Clinical Summary Person Information Name: JORDIN TYLER [place] Age: 18 Years : 2005 Sex: Female Language: Sudanese PCP: MARK STONE Marital Status: Single Phone: [phone] Visit Id: Visit Reason: Vomiting - ; [...] 02/13/2023 17:35:55 02/13/2023 17:35:55 02/13/2023 17:35:55 ADDRESS: [address] [facility] [id number] PHYS DOC NOTES: MEDICAL INFORMATION: Prescriptions Given: New Medications [id number], [address] [place] [id number], [phone] nitrofurantoin (Macrobid 100 mg Cap) 1 Capsules By Mouth 2 times a day for 5 Days. Refills: 0. Medications to Continue Taking That Have Changed [facility], [address] [place], [place] [id number], [phone] START: ondansetron (Zofran ODT 4 mg Tab-Dis) [...] INFORMATION: Instructions: Hypokalemia; Urinary Tract Infection, Adult, Afew-uc-Tmjw; Hyperemesis Gravidarum Follow up: With: Address: When: Paul CASE, [place], [address] [place] [address] Within 2 to 4 days DIAGNOSIS: 1:Hyperemesis gravidarum; 2:; 3:UTI in ; 4:Hypokalemia; 5:Elevated LFTs Normal [facility] ED Patient Education Noteon 02-13-2023 [...] such as yogurt. General instructions ? Take gsgv-ngj-rrnhabu and prescription medicines only as told by [...] provider. Document Revised: 10/06/2021 Document Reviewed: 10/06/2021 [employer] Patient Education ? 2022 [employer]. Obstetrics and Gynecology Urinary Tract Infection, Adult [...] antibiotic medicines. (more content not included)... Normal [facility] ED Patient Summaryon 024 ED Patient Summary [address] [address] Patient Discharge Instructions Person Information Name: JORDIN TYLER Age: 18 Years Arrival Date: 02/13/2023 14:15:10 Discharge Diagnosis: 1:Hyperemesis gravidarum; 2:; 3:UTI in ; 4:Hypokalemia; 5:Elevated LFTs Primary Care Physician: MARK STONE Provider Information Primary Provider: Steven Alatorre DO Advanced Yarn Spooler:Monica The exam and treatment you received in the Emergency Department were for an urgent problem and are not intended as complete care. It is important that you follow up with a doctor, nurse practitioner, or physician?s assistant designer for ongoing care. If your symptoms become [...] When: Paul CASE, [place], [address] [facility], [address] [place] [address] Within 2 to 4 days In the event that this physician does not participate in your insurance network, please consult with your insurance company to find a nearby participating provider. Patient Education Materials: Hypokalemia; Urinary Tract Infection, Adult, Sgxb-ve-Ggwf; Hyperemesis Gravidarum A MESSAGE TO ALL PATIENTS REGARDING OPIOIDS PRESCRIPTION OPIOIDS: WHAT YOU NEED TO KNOW Prescription opioids can be used to help relieve blwuargi-ca-varajz pain and are often prescribed following a [...] your health (more content not included)... Normal [facility] HEMATOLOGYOrdered By: Ericka Rivas on 02-13-2023 Anisocytosis Ql (Bld) Present (02/13/23 2:33 PM) Normal [facility] HemeManSS Erythrocyte distribution width (RBC) [Ratio] 19.0 % High 10.9 - 14.2 % [facility] HemeAutoSS Hematocrit (Bld) [Volume fraction] 36.7 % Normal 34.0 - 46.0 % [facility] HemeAutoSS Hemoglobin (Bld) [Mass/Vol] 11.9 g/dL Low 12.0 - 16.0 gm/dL [facility] HemeAutoSS Hypochromia Auto Ql (Bld) Present (02/13/23 [...] 02-13-2023 Magnesium [Mass/Vol] 1.7 mg/dL Normal 1.3-2.4 [facility] Comment on above: Performed By: #### 1 [id number] #### [facility] [address] [place] [address] Morphon 02-13-2023 Anisocytosis Ql (Bld) Present Normal Fis [facility] Comment on above: Order Comment: Order Added by Discern Expert. Performed By: #### 1 [id number], [id number] #### [facility] [address] [place] [address] Hypochromia Auto Ql (Bld) Present Normal [facility] Comment on above: Order Comment: Order Added by Discern Expert. Performed By: #### 1 [id number], [id number] #### [facility] [address] [place] [address] Microcytes Ql (Bld) Present Normal Fishe r [facility] Comment on above: Order Comment: Order Added by Discern Expert. Performed By: #### 1 2305439, [id number] #### [facility] [address] [place] [address] Morphology Cliff (Bld) [Interp] See Morphology Normal [facility] Comment on above: Order Comment: Order Added by Discern Expert. Performed By: #### 1 [id number], 5551058 #### [facility] [address] [place] [address] Ovalocytes LM Ql (Bld) Present Normal [facility] Comment on above: Order Comment: Order Added by Discern Expert. Performed By: #### 1 [id number], 8903539 #### [facility] [address] [place] [address] UA With Cult Reflexon 2023 Bacteria LM Ql (Urine sed) 2+ /HPF Abnormal Trace [facility] Comment on above: Performed By: #### 2 [id number], [id number] #### [facility] [address] [place] [address] Bilirubin Ql (U) 2+ Abnormal Negative [facility] Comment on above: Performed By: #### 2 019599, [id number] #### [facility] [address] [place] [address] Clarity (U) CLEAR Normal Clear [facility] Comment on above: Performed By: #### 2 912963, [id number] #### [facility] [address] [place] [address] Color (U) DARK YELLO Abnormal Yellow [facility] Comment on above: Performed By: #### 2 602419, [id number] #### [facility] [address] [place] [address] Epithelial cells.squamous LM.HPF (Urine sed) [#/Area] 5-8 Normal 0-2 [facility] Comment on above: Performed By: #### 2 340878, [id number] #### [facility] [address] [place] [address] Glucose Test strip (U) [Mass/Vol] Negative Normal Negative [facility] Comment on above: Performed By: #### 2 094946, [id number] #### [facility] [address] [place] [address] Hemoglobin Ql (U) Negative Normal Negative [facility] Comment on above: Performed By: #### 2 425245, [id number] #### [facility] [address] [place] [address] Ketones (U) [Mass/Vol] 3+ Abnormal Negative [facility] Comment on above: Performed By: #### 2 586865, [id number] #### [facility] [address] [place] [address] [place].plasma/[place].R BC (Bld) [Mass ratio] 4-20 Normal 0-3 [facility] Comment on above: Performed By: #### 2 310739, [id number] #### [facility] [address] [place] [address] Mucus Ql (Urine sed) 2+ Normal Fish [facility] Comment on above: Performed By: #### 2 041075, [id number] #### [facility] [address] [place] [address] Nitrite Ql (U) Negative Normal Negative [facility] Comment on above: Performed By: #### 2 472695, [id number] #### [facility] [address] [place] [address] pH (U) 6.0 [pH] Invalid Interpretation Code 5.0-9.0 [facility] Comment on above: Performed By: #### 2 458921, [id number] #### [facility] [address] [place] [address] Protein (U) [Mass/Vol] 1+ Abnormal Negative [facility] Comment on above: Performed By: #### 2 620181, 44110049 #### [facility] [address] [place] [address] Specific gravity (U) [Rel density] >=1.030 Invalid Interpretation Code 1.005-1.030 [facility] Comment on above: Performed By: #### 2 102316, [id number] #### [facility] [address] [place] [address] Type of Urine collection method Clean Catch Normal [facility] Comment on above: Performed By: #### 2 716559, [id number] #### [facility] [address] [place] [address] Urobilinogen Qn (U) 2.0 {Karri'U}/dL Abnormal 0.0-1.0 [facility] Comment on above: Performed By: #### 2 282264, [id number] #### [facility] [address] [place] [address] WBC Auto Ql (U) 1+ Abnormal Negative [place] Comment on above: Performed By: #### 2 647879, [id number] #### [facility] [address] [place] [address] WBC LM.HPF (Urine sed) [#/Area] 6-15 Abnormal 0-5 [facility] Comment on above: Performed By: #### 2 868219, [id number] #### [facility] [address] [place] [address] URINALYSISOrdered By: Maranda Muñoz on 02-13-2023 Bacteria LM Ql (Urine sed) 2+ /HPF Invalid Interpretation Code Trace/HPF [facility] UA Auto SS Bilirubin Ql (U) 2+ [...] Interpretation Code Negative [facility] UA Auto SS [place].plasma/[place].R BC (Bld) [Mass ratio] 4-20 /HPF Normal [...] [facility] UA Auto SS Urobilinogen Qn (U) 2.9664237 {Karri'U}/dL Invalid Interpretation Code 0.0 - 1.0 EU/dL [facility] UA Auto SS WBC Auto Ql (U) 1+ *ABN* (02/13/23 2:30 PM) Invalid Interpretation Code Negative [facility] UA Auto SS WBC LM.HPF (Urine sed) [#/Area] 6-15 /HPF Invalid Interpretation Code 0-5/HPF [facility] UA Auto SS eGFRon 02-13-2023 GFR/1.73 sq M.predicted among non-blacks MDRD (S/P/Bld) [Vol rate/Area] mL/min/{1.73_m2} Normal >=59 [facility] Comment on above: Order Comment: Order added by Discern Expert. Performed By: #### 1 [id number] #### [facility] [address] [place] [address] C Urineon 01-28-2023 Bacteria identified Cx Nom [...] Locations R1: [facility] performed at: [facility], [address] [place] [address], [address] , , [facility] Comment on above: Performed By: #### 1 [id number] #### [facility] [address] [place] [address] ED Note-Physicianon 01-28-20 23 ED Note-Physician Basic Information Time Seen: Donavan Lawson PA-C 01/26/2023 19:10 Chief Complaint pt states that [...] weeks . Reports he does follow-up with [employer] DEVELOPER. Denies any fevers or chills. States that [...] and Complexity of Problems Differential Diagnosis: [] [facility] Data External documents reviewed: [] My [...] greatly improve her symptoms. Discussed follow-up with [employer] FLEX DEVELOPER. Patient was understanding. Follow-up with your primary [...] Blue Tube (more content not included)... Normal [facility] Comment on above: Result Comment: Elec tronically Signed By: Donavan Lawson PA-C\.br\Date and Time Signed: 01/26/23 21:46 EST\.br\Electronically Co-Signed By: Damaris Jean Baptiste DO\.br\Date and Time Co-Signed: 01/27/23 01:31 EST ABO/Rhon 01-26-2023 ABO/Rh Positive Invalid Interpretation Code [facility] Comment on above: Performed By: #### 2 [id number] ####[facility] [address] [place] [address] Auto Diffon 01-26-2023 Basophils/100 WBC (Bld) 0.4 % Normal 0.0-2.0 [facility] Comment on above: Order Comment: Order Added by Discern Expert. Performed By: #### 1 [id number] #### [facility] [address] [place] [address] Basophils/Leukocytes Auto (Bld) [Pure # fraction] 0.0 E9/L Normal 0.0-0.2 [facility] Comment on above: Order Comment: Order Added by Discern Expert. Performed By: #### 1 [id number] #### [facility] [address] [place] [address] Eosinophils/100 WBC (Bld) 0.5 % Normal 0.0-8.0 [facility] Comment on above: Order Comment: Order Added by Discern Expert. Performed By: #### 1 [id number] #### [facility] [address] [place] [address] Eosinophils/Leukocytes Auto (Bld) [Pure # fraction] 0.0 E9/L Normal 0.0-0.5 [facility] Comment on above: Order Comment: Order Added by Discern Expert. Performed By: #### 1 [id number] #### [facility] [address] [place] [address] Lymphocytes/100 WBC (Bld) 21.8 % Normal 14.0-50.0 [facility] Comment on above: Order Comment: Order Added by Discern Expert. Performed By: #### 1 [id number] #### [facility] [address] [place] [address] Lymphocytes/Leukocytes Auto (Bld) [Pure # fraction] 1.7 E9/L Normal 1.0-4.0 [facility] Comment on above: Order Comment: Order Added by Discern Expert. Performed By: #### 1 [id number] #### [facility] [address] [place] [address] Monocytes/100 WBC (Bld) 7.4 % Normal 4.0-14.0 [facility] Comment on above: Order Comment: Order Added by Discern Expert. Performed By: #### 1 [id number] #### [facility] [address] [place] [address] Monocytes/Leukocytes Auto (Bld) [Pure # fraction] 0.6 E9/L Normal 0.2-1.0 [facility] Comment on above: Order Comment: Order Added by Discern Expert. Performed By: #### 1 [id number] #### [facility] [address] [place] [address] Neutrophils/100 WBC (Bld) 69.9 % Normal 36.0-75.0 [facility] Comment on above: Order Comment: Order Added by Discern Expert. Performed By: #### 1 [id number] #### [facility] [address] [place] [address] Neutrophils/Leukocytes Auto (Bld) [Pure # fraction] 5.3 E9/L Normal 2.0-7.5 [facility] Comment on above: Order Comment: Order Added by Discern Expert. Performed By: #### 1 [id number] #### [facility] [address] [place] [address] BLOOD BANKOrdered By: Ericka Rivas on 01-26-2023 ABO/Rh Interp Positive Invalid Interpretation Code [facility] BB Subsection BMPon 01-26-2023 Anion gap [Moles/Vol] 16 mmol/L Normal 6-16 [facility] Comment on above: Performed By: #### 1 [id number] #### [facility] [address] [facility] [place] [address] BUN/Creat Ratio 17 No Units Normal 10-20 [facility] Comment on above: Performed By: #### 1 [id number] #### [facility] [address] [place] [address] Calcium [Mass/Vol] 9.5 mg/dL Normal 8.9-11.1 [facility] Comment on above: Performed By: #### 1 [id number] #### [facility] [address] [place] [address] Chloride [Moles/Vol] 103 mmol/L Normal 101-111 [facility] Comment on above: Performed By: #### 1 [id number] #### [facility] [address] [place] [address] CO2 [Moles/Vol] 21 mmol/L Normal 21-31 [place] Comment on above: Performed By: #### 1 [id number] #### [facility] [address] [facility] [address] Creatinine [Mass/Vol] 0.6 mg/dL Normal 0.5-1.3 [facility] Comment on above: Performed By: #### 1 [id number] #### [facility] [address] [place] [address] Glucose [Mass/Vol] 79 mg/dL Normal 55-199 [facility] Comment on above: Performed By: #### 1 [id number] #### [facility] [address] [facility] [address] Potassium [Moles/Vol] 3.6 mmol/L Normal 3.5-5.3 [facility] Comment on above: Performed By: #### 1 [id number] #### [facility] [address] [place] [address] Sodium [Moles/Vol] 136 mmol/L Normal 135-145 [facility] Comment on above: Performed By: #### 1 [id number] #### [facility] [address] [place] [address] Urea nitrogen [Mass/Vol] 10 mg/dL Normal 5-21 [facility] Comment on above: Performed By: #### 1 [id number] #### [facility] [address] [place] [address] BhCG Quanton 01-26-2023 Beta hCG Qnt 408467 mIU/mL High 1-3 [place] Comment on above: Result Comment: 'F N ON < 1 - 3' ' 0.2 - 1 WEEK = 5 TO 50' ' 1 - 2 WEEKS = 50 - 500' ' 2 - 3 WEEKS = 100 - 5000' ' 3 - 4 WEEKS = 500 - 27147' ' 4 - 5 WEEKS = 1000 - 43185' ' 5 - 6 WEEKS = 03476 - 074589' ' 6 - 8 WEEKS = 28412 - 926642' ' 8 - 12 WEEKS = 69569 - 418888' Performed By: #### 1 [id number] #### [facility] [address] [place] [address] CBC w/ Auto Diffon Erythrocyte distribution width (RBC) [Ratio] 18.0 % High 10.9-14.2 [facility] Comment on above: Performed By: #### 1 [id number] #### [facility] [address] [place] [address] Hematocrit (Bld) [Volume fraction] 35.9 % Normal 34.0-46.0 [facility] Comment on above: Performed By: #### 1 [id number] #### [facility] [address] [place] [address] Hemoglobin (Bld) [Mass/Vol] 11.8 g/dL Low 12.0-16.0 [facility] Comment on above: Performed By: #### 1 [id number] #### [facility] [address] [place] [address] MCH (RBC) [Entitic mass] 24.1 pg Low 27.0-34.0 [facility] Comment on above: Performed By: #### 1 [id number] #### [facility] [address] [place] [address] MCHC (RBC) [Mass/Vol] 32.8 g/dL Normal 31.4-36.0 [facility] Comment on above: Performed By: #### 1 [id number] #### [facility] [address] [place] [address] MCV (RBC) [Entitic vol] 73.6 fL Low 80.0-100.0 [facility] Comment on above: Performed By: #### 1 [id number] #### [facility] [address] [place] [address] Platelet mean volume (Bld) [Entitic vol] 8.4 fL Normal 6.4-10.8 [facility] Comment on above: Performed By: #### 1 [id number] #### [facility] [address] [place] [address] Platelets (Bld) [#/Vol] 304.0 E9/L Normal 150.0-500.0 [facility] Comment on above: Performed By: #### 1 [id number] #### [facility] [address] [place] [address] RBC (Bld) [#/Vol] 4.9 E12/L Normal 4.3-5.9 [facility] Comment on above: Performed By: #### 1 [id number] #### [facility] [address] [place] [address] WBC corrected for nucl RBC Auto (Bld) [#/Vol] 7.6 E9/L Normal 4.0-11.0 [place] Comment on above: Performed By: #### 1 [id number] #### [facility] [address] [place] [address] CHEMISTRYOrdered By: SYSTEM SYSTEM on 01-26-2023 Anion [...] 199 mg/dL [facility] Chem HCG.beta subunit Qn 141299 m[IU]/mL High 1 - 3 mIU/m L [facility] Comment on above: Result Comment: 'F N ON < 1 - 3' ' 0.2 - 1 WEEK = 5 TO 50' ' 1 - 2 WEEKS = 50 - 500' ' 2 - 3 WEEKS = 100 - 5000' ' 3 - 4 WEEKS = 500 - 09515' ' 4 - 5 WEEKS = 1000 - 15055' ' 5 - 6 WEEKS = 00675 - 759714' ' 6 - 8 WEEKS = 45505 - 767858' ' 8 - 12 WEEKS = 87665 - 660969' Potassium [Moles/Vol] 3.6 mmol/L Normal 3.5 - 5.3 mmol/L [facility] Sodium [Moles/Vol] 136 mmol/L Normal 135 - 145 mmol/L [facility] Urea nitrogen [Mass/Vol] 10 mg/dL Normal 5 - 21 mg/d L [facility] Urea nitrogen/Creatinine [Mass ratio] 17 mg/mg Normal 10 - 20 [facility] Consent for Treatmenton 01-06 Consent for Treatment [id number] #1.00TIFF Normal [facility] Discharge Instructionson Discharge Instructions [id number]#[id number] Normal [facility] ED Clinical Summaryon 2022 ED Clinical Summary [place] [id number] ED Clinical Summary Person Information Name: JORDIN TYLER [facility] Age: 18 Years : 2005 Sex: Female Language: Sudanese PCP: [facility] Marital Status: Single Phone: [phone] Visit Id: Visit Reason: Abdominal pain - [...] 01/26/2023 21:19:18 01/26/2023 21:19:18 01/26/2023 21:19:18 ADDRESS: [address] [place] [address] [phone] PHYS DOC NOTES: MEDICAL INFORMATION: Prescriptions Given: [...] Instructions: Morning Sickness; Nausea and Vomiting, Adult, Ijpn-su-Vjnk Follow up: With: Address: When: Ras Miller [address], [facility] [address], [place] [id number] [facility] ([address] In 3 days 01/29/2023 Comments: Follow-up with your primary care provider in 3 to 5 days. If symptoms worsen, do not improve, or new symptoms arise please report back to emergency department for further evaluation. With: Address: When: [facility] In 3 days DIAGNOSIS: Nausea and vomiting during Normal [facility] ED Patient Education Noteon 01-26-2023 ED [...] ? Low-calorie sports drinks. ? Eat bland, yyvo-sl-qsyuzl foods in small amounts as you are able, such as: ? Bananas. ? Applesauce. ? Rice. ? Low-fat (lean) meats. ? Sulphur. ? Crackers. ? Avoid drinking fluids that have a lot of sugar or caffeine in them. This includes energy drinks, sports drinks, and soda. ? Avoid alcohol. ? Avoid spicy or fatty foods. General instructions ? Take syhe-lbr-hrbcnzd and prescription medicines only as told by your doctor. ? Drink enough fluid to keep your pee (urine) pale yellow. ? Wash your hands often with soap and water for at least 20 seconds. If you cannot use soap and water, use hand tracer powder blender. ? Make sure that everyone in your [...] doctor about eating and drinking. ? Take iqie-squ-nolewni and prescription medicines only as told by your doctor. ? Contact your doctor if your symptoms get worse or you have new symptoms. ? Keep all follow-up visits. This information is not intended to replace advice given to you by your health care provider. Make sure you discuss any questions you have with your health care provider. Document Revised: 07/29/2021 Document Reviewed: 07/29/2021 [employer] Patient Education ? 2022 [employer]. Obstetrics and Gynecology Morning Sickness Morning sickness [...] condition i (more content not included)... Normal [facility] ED Patient Summaryon 023 ED Patient Summary [address] [address] Patient Discharge Instructions Person Information Name: JORDIN TYLER Age: 18 Years Arrival Date: 01/26/2023 19:05:49 Discharge Diagnosis: Nausea and vomiting during Primary Care Physician: CHASE, GENERIC Provider Information Primary Provider: Damaris Jean Baptiste DO Advanced Yarn Spooler:None The exam and treatment you received in the Emergency Department were for an urgent problem and are not intended as complete care. It is important that you follow up with a doctor, nurse practitioner, or physician?s assistant designer for ongoing care. If your symptoms become worse or you do not improve as expected and you are unable to reach your usual health care provider, you should return to the Emergency Department. We are available 24 hours a day. JORDIN TYLER has been given the following list of patient education materials, prescriptions and follow-up instructions: Follow-up Instructions: With: Address: When: Ras Miller [address] [place] [address], [facility] [address], [place] [address] Business (1) In 3 days 01/29/2023 Comments: Follow-up with your primary care provider in 3 to 5 days. If symptoms worsen, do not improve, or new symptoms arise please report back to emergency department for further evaluation. With: Address: When: [place] In 3 days In the event that this physician does not participate in your insurance network, please consult with your insurance company to find a nearby participating provider. Patient Education Materials: Morning Sickness; Nausea and Vomiting, Adult, Ryaj-sj-Tkqa A MESSAGE TO ALL PATIENTS REGARDING OPIOIDS PRESCRIPTION OPIOIDS: WHAT YOU NEED TO KNOW Prescription opioids can be used to help relieve lavnvpjq-fy-kucgnm pain and are often prescribed following a [...] (www.fda.gov/Drugs/R eso (more content not included)... Normal [facility] HEMATOLOGYOrdered By: SYSTEM SYSTEM on 01-26-2023 Basophils/100 WBC (Bld) 0.4 % Normal 0.0 - 2.0 % FT HemeAutoSS Basophils/Leukocytes Auto (Bld) [Pure # fraction] 0.0 E9/L Normal 0.0 - 0.2 E9/L [facility] HemeAutoSS Eosinophils/100 WBC (Bld) 0.5 % Normal [...] 4.9 E12/L Normal 4.3 - 5.9 E12/L [facility] HemeAutoSS WBC corrected for nucl RBC Auto (Bld) [#/Vol] 7.6 E9/L Normal 4.0 - 11.0 E9/L [facility] HemeAutoSS UA With Cult Reflexon 2022 Bacteria LM Ql (Urine sed) TRACE Normal Trace [facility] Comment on above: Performed By: #### 1 [id number] #### [facility] [address] [place] [address] Bilirubin Ql (U) Negative Normal Negative [facility] Comment on above: Performed By: #### 1 [id number] #### [facility] [address] [place] [address] Clarity (U) CLEAR Normal Clear [facility] Comment on above: Performed By: #### 1 [id number] #### [facility] [address] [place] [address] Color (U) YELLOW Normal Yellow [facility] Comment on above: Performed By: #### 1 [id number] #### [facility] [address] [place] [address] Epithelial cells.squamous LM.HPF (Urine sed) [#/Area] 5-8 Normal 0-2 [facility] Comment on above: Performed By: #### 1 [id number] #### [facility] [address] [place] [address] Glucose Test strip (U) [Mass/Vol] Negative Normal Negative [facility] Comment on above: Performed By: #### 1 [id number] #### [facility] [address] [place] [address] Hemoglobin Ql (U) Negative Normal Negative [facility] Comment on above: Performed By: #### 1 [id number] #### [facility] [address] [place] [address] Ketones (U) [Mass/Vol] 3+ Abnormal Negative [facility] Comment on above: Performed By: #### 1 [id number] #### [facility] [address] [place] [address] [place].plasma/[place].R BC (Bld) [Mass ratio] 0-3 Normal 0-3 [facility] Comment on above: Performed By: #### 1 [id number] #### [facility] [address] [place] [address] Mucus Ql (Urine sed) TRACE Normal Fish [facility] Comment on above: Performed By: #### 1 [id number] #### [facility] [address] [place] [address] Nitrite Ql (U) Negative Normal Negative [facility] Comment on above: Performed By: #### 1 [id number] #### [facility] [address] [place] [address] pH (U) 6.0 [pH] Invalid Interpretation Code 5.0-9.0 [facility] Comment on above: Performed By: #### 1 [id number] #### [facility] [address] [place] [address] Protein (U) [Mass/Vol] TRACE Abnormal Negative [facility] Comment on above: Performed By: #### 1 [id number] #### [facility] [address] [place] [address] Specific gravity (U) [Rel density] >=1.030 Invalid Interpretation Code 1.005-1.030 [facility] Comment on above: Performed By: #### 1 [id number] #### [facility] [address] [place] [address] Type of Urine collection method Clean Catch Normal [facility] Comment on above: Performed By: #### 1 [id number] #### [facility] [address] [place] [address] Urobilinogen Qn (U) 0.2 {Karri'U}/dL Normal 0.0-1.0 [facility] Comment on above: Performed By: #### 1 [id number] #### [facility] [address] [place] [address] WBC Auto Ql (U) Negative Normal Negative [place] Comment on above: Performed By: #### 1 [id number] #### [facility] [address] [place] [address] WBC LM.HPF (Urine sed) [#/Area] 6-15 Abnormal 0-5 [facility] Comment on above: Performed By: #### 1 [id number] #### [facility] [address] [place] [address] URINALYSISOrdered By: Raman Trejo on 01-26-2023 Bacteria [...] Interpretation Code Negative [facility] UA Auto SS [place].plasma/[place].R BC (Bld) [Mass ratio] 0-3 /HPF Normal [...] PM) Invalid Interpretation Code 1.005 - 1.030 [facility] UA Auto SS UA Spec Desc Clean Catch (01/26/23 8:39 PM) Normal [facility] UA Auto SS Urobilinogen Qn (U) 0.7401336 {Karri'U}/dL Normal 0.0 - 1.0 EU/dL [facility] UA Auto SS WBC Auto Ql (U) Negative (01/26/23 8:39 PM) Normal Negative [facility] UA Auto SS WBC LM.HPF (Urine sed) [#/Area] 6-15 /HPF Invalid Interpretation Code 0-5/HPF [facility] UA Auto SS eGFRon 01-26-2023 GFR/1.73 sq M.predicted among non-blacks MDRD (S/P/Bld) [Vol rate/Area] mL/min/{1.73_m2} Normal >=59 [facility] Comment on above: Order Comment: Order added by Discern Expert. Performed By: #### 1 [id number] #### [facility] [address] [place] [address] Auto Diffon 01-23-2023 Basophils/100 WBC (Bld) 0.5 % Normal 0.0-2.0 [facility] Comment on above: Order Comment: Order Added by Discern Expert. Performed By: #### 1 [id number], [id number] #### [facility] [address] [place] [address] Basophils/Leukocytes Auto (Bld) [Pure # fraction] 0.0 E9/L Normal 0.0-0.2 [facility] Comment on above: Order Comment: Order Added by Discern Expert. Performed By: #### 1 [id number], [id number] #### [facility] [address] [place] [address] Eosinophils/100 WBC (Bld) 0.7 % Normal 0.0-8.0 [facility] Comment on above: Order Comment: Order Added by Discern Expert. Performed By: #### 1 [id number], [id number] #### [facility] [address] [place] [address] Eosinophils/Leukocytes Auto (Bld) [Pure # fraction] 0.0 E9/L Normal 0.0-0.5 [facility] Comment on above: Order Comment: Order Added by Discern Expert. Performed By: #### 1 [id number], [id number] #### [facility] [address] [place] [address] Lymphocytes/100 WBC (Bld) 21.4 % Normal 14.0-50.0 [facility] Comment on above: Order Comment: Order Added by Discern Expert. Performed By: #### 1 [id number], [id number] #### [facility] [address] [place] [address] Lymphocytes/Leukocytes Auto (Bld) [Pure # fraction] 1.3 E9/L Normal 1.0-4.0 [facility] Comment on above: Order Comment: Order Added by Discern Expert. Performed By: #### 1 [id number], [id number] #### [facility] [address] [place] [address] Monocytes/100 WBC (Bld) 7.4 % Normal 4.0-14.0 [facility] Comment on above: Order Comment: Order Added by Discern Expert. Performed By: #### 1 [id number], [id number] #### [facility] [address] [place] [address] Monocytes/Leukocytes Auto (Bld) [Pure # fraction] 0.4 E9/L Normal 0.2-1.0 [facility] Comment on above: Order Comment: Order Added by Discern Expert. Performed By: #### 1 [id number], 8052129 #### [facility] [address] [place] [address] Neutrophils/100 WBC (Bld) 70.0 % Normal 36.0-75.0 [facility] Comment on above: Order Comment: Order Added by Discern Expert. Performed By: #### 1 [id number], [id number] #### [facility] [address] [place] [address] Neutrophils/Leukocytes Auto (Bld) [Pure # fraction] 4.2 E9/L Normal 2.0-7.5 [facility] Comment on above: Order Comment: Order Added by Discern Expert. Performed By: #### 1 [id number], [id number] #### [facility] [address] [place] [address] B hCG Qualon 01-23-2023 Beta HCG ( test) Ql Positive Normal [facility] Comment on above: Performed By: #### 2 076109, 64145699, 8678581, 9296164, 67762059, 2858572, 2386069, 4862795, 52615302 ####[facility] [address] [place] [address] BMPon 01-23-2023 Anion gap [Moles/Vol] 14 mmol/L Normal 6-16 [facility] Comment on above: Performed By: #### 2 838114, 65784107, 9370618, 0821636, 29189606, 2227185, 7680760, 1039814, 27817871 ####[facility] [address] [place] [address] BUN/Creat Ratio 18 No Units Normal 10-20 [facility] Comment on above: Performed By: #### 2 846762, 27179474, 8864927, 4770817, 56892633, 4553706, 9836295, 8961638, 79580216 ####[facility] [address] [place] [address] Calcium [Mass/Vol] 9.3 mg/dL Normal 8.9-11.1 [facility] Comment on above: Performed By: #### 2 850623, 43101218, 0892040, 4425447, 05471949, 7492853, 7387729, 5458409, 84797410 ####[facility] [address] [place] [address] Chloride [Moles/Vol] 103 mmol/L Normal 101-111 [facility] Comment on above: Performed By: #### 2 705327, 26002492, 1191218, 0297929, 94466329, 3034860, 7336009, 0512285, 90074463 ####[facility] [address] [place] [address] CO2 [Moles/Vol] 23 mmol/L Normal 21-31 [place] Comment on above: Performed By: #### 2 494881, 26117478, 2635915, 3379464, 25339384, 8121538, 0030238, 2734072, 14778512 ####[facility] [address] [place] [address] Creatinine [Mass/Vol] 0.6 mg/dL Normal 0.5-1.3 [facility] Comment on above: Performed By: #### 2 199913, 88041883, 2465020, 2761568, 00662419, 1675061, 5277008, 6989788, 15156017 ####[facility] [address] [place] [address] Glucose [Mass/Vol] 84 mg/dL Normal 55-199 [facility] Comment on above: Performed By: #### 2 430143, 19113967, 1933181, 6704056, 11736695, 5346494, 6173549, 6862716, 45195847 ####[place] [address] [place] [address] Potassium [Moles/Vol] 3.5 mmol/L Normal 3.5-5.3 [facility] Comment on above: Performed By: #### 2 298186, 30177973, 5684163, 0371142, 69345785, 1049349, 5884759, 2223446, 33139959 ####[facility] [address] [place] [address] Sodium [Moles/Vol] 136 mmol/L Normal 135-145 [facility] Comment on above: Performed By: #### 2 882461, 68170706, 0485174, 3871311, 92851048, 4546406, 9791391, 1281397, 13623114 ####[facility] [address] [place] [address] Urea nitrogen [Mass/Vol] 11 mg/dL Normal 5-21 [facility] Comment on above: Performed By: #### 2 595221, 21250841, 6815304, 9714793, 39559178, 4119040, 7548307, 5710722, 49495245 ####[facility] [address] [place] [address] BhCG Quanton 01-23-2023 [place]nt [address]259 mIU/mL High 1-3 [facility] Comment on above: Result Comment: 'F N ON < 1 - 3' ' 0.2 - 1 WEEK = 5 TO 50' ' 1 - 2 WEEKS = 50 - 500' ' 2 - 3 WEEKS = 100 - 5000' ' 3 - 4 WEEKS = 500 - 39066' ' 4 - 5 WEEKS = 1000 - 40534' ' 5 - 6 WEEKS = 04005 - 636006' ' 6 - 8 WEEKS = 99418 - 267162' ' 8 - 12 WEEKS = 33813 - 806259' Performed By: #### 1 3694610, 9039443 #### [facility] [address] [place] [address] CBC w/ Auto Diffon 3 Erythrocyte distribution width (RBC) [Ratio] 17.6 % High 10.9-14.2 [facility] Comment on above: Performed By: #### 2 446327, 60061715, 6021371, 3165829, 51976462, 9739770, 6293125, 3227103, 11371887 ####[facility] [address] [place] [address] Hematocrit (Bld) [Volume fraction] 33.9 % Low 34.0-46.0 [facility] Comment on above: Performed By: #### 2 131169, 36225191, 7820028, 5658453, 55950349, 8728262, 1880993, 4463326, 15501400 ####[facility] [address] [place] [address] Hemoglobin (Bld) [Mass/Vol] 11.3 g/dL Low 12.0-16.0 [facility] Comment on above: Performed By: #### 2 767393, 13667673, 1107427, 1968309, 11844059, 3790716, 2731501, 3841839, 87680647 ####[facility] [address] [place] [address] MCH (RBC) [Entitic mass] 24.5 pg Low 27.0-34.0 [facility] Comment on above: Performed By: #### 2 437160, 83064146, 5925958, 0210368, 97194201, 2234194, 6970481, 8912571, 82905313 ####[address] [address] MCHC (RBC) [Mass/Vol] 33.3 g/dL Normal 31.4-36.0 [facility] Comment on above: Performed By: #### 2 925280, 35297254, 7839312, 4827028, 11828945, 5230829, 3845526, 6198864, 13412548 ####[address] [address] MCV (RBC) [Entitic vol] 73.6 fL Low 80.0-100.0 [facility] Comment on above: Performed By: #### 2 464268, 60826816, 2470579, 9184509, 49840004, 4375454, 5352154, 3397546, 77639829 ####[address] [address] Platelet mean volume (Bld) [Entitic vol] 8.1 fL Normal 6.4-10.8 [facility] Comment on above: Performed By: #### 2 623266, 81206256, 5983006, 5408765, 66902939, 2675795, 6432483, 4983389, 15722520 ####[address] [address] Platelets (Bld) [#/Vol] 306.0 E9/L Normal 150.0-500.0 [facility] Comment on above: Performed By: #### 2 714003, 71320014, 6508383, 9140537, 12905391, 2596509, 3740323, 6823641, 73375152 ####[facility] [address] [place] [address] RBC (Bld) [#/Vol] 4.6 E12/L Normal 4.3-5.9 [facility] Comment on above: Performed By: #### 2 975903, 31898096, 2358734, 5284603, 86133198, 7483782, 1982274, 1631374, 51916129 ####[facility] [address] [place] [address] WBC corrected for nucl RBC Auto (Bld) [#/Vol] 6.0 E9/L Normal 4.0-11.0 [place] Comment on above: Performed By: #### 2 944485, 48186594, 2724907, 1045184, 42242035, 8080786, 6915999, 8909349, 87392017 ####[facility] [address] [place] [address] CHEMISTRYOrdered By: SYSTEM SYSTEM on 01-23-2023 Albumin [...] 199 mg/[place] [address] m[IU]/mL High 1 - 3 mIU/mL [facility] Comment on above: Result Comment: 'F N ON < 1 - 3' ' 0.2 - 1 WEEK = 5 TO 50' ' 1 - 2 WEEKS = 50 - 500' ' 2 - 3 WEEKS = 100 - 5000' ' 3 - 4 WEEKS = 500 - 98596' ' 4 - 5 WEEKS = 1000 - 27879' ' 5 - 6 WEEKS = 98008 - 368038' ' 6 - 8 WEEKS = 69432 - 834493' ' 8 - 12 WEEKS = 50656 - 788506' Lipase Lvl 10 unit/L Low 13 - [...] for Treatmenton 01-05 Consent for Treatment [id number] #1.00TIFF Normal [facility] Discharge Instructionson Discharge Instructions [id number] 120 [id number] #1.00TIFF Normal [facility] ED Clinical Summaryon 2022 ED Clinical Summary [place] [id number] ED Clinical Summary Person Information Name: JORDIN TYLER [facility] Age: 18 Years : 2005 Sex: Female Language: Sudanese PCP: MARK STONE Marital Status: Single Phone: [phone] Visit Id: Visit Reason: Dizziness; Nausea; N/V [...] 17:56:52 01/23/2023 17:56:52 01/23/2023 17:56:52 ADDRESS: [phone] [facility] DOC NOTES: MEDICAL INFORMATION: Prescriptions Given: [...] Follow up: With: Address: When: Ras ROMERO, [facility] [address], [place] [address] Business (1) In 3 days 01/26/2023 DIAGNOSIS: Nausea/vomiting in Normal [facility] ED Note-Physicianon 01-24-20 ED Note-Physician Basic Information Time Seen: Andria ROBERT, Colby 01/23/2023 11:47 Chief Complaint nausea and vomiting [...] sent for ultrasound which was discussed with geoscience technician. Intrauterine measuring 6 weeks, 5 days, heart rate 125. No gross abnormality. Patient was treated here with 2 L of IV fluid and antiemetics. Repeat evaluation of vomiting has been controlled patient taking oral hydration well. No abnormal vaginal discharge or bleeding. She started on nausea medication, vitamins and discharged home with JAVA FLEX DEVELOPER follow-up. Patient was encouraged to return to [...] TID Follow-up With When Contact Information Ras Bahenaten In 3 days 01/26/2023 EST [address], [address] [place] [address] Business (1) Additional Instructions: Patient Education Nausea and Vomiting, Adult Attestation Patient seen and evaluated by the physician assistant designer. Attending physician was present in the emergency department and supervised care. This visit was performed by both the physician and an APC. I performed all aspects of the M (more content not included)... Normal [facility] Comment on above: Result Comment: [...] added (diluted fruit juice). ? Eat bland, tugf-io-skczjs foods in small amounts as you are able. These foods include bananas, applesauce, rice, lean meats, toast, and crackers. ? Avoid fluids that contain a lot of sugar or caffeine, such as energy drinks, sports drinks, and soda. ? Avoid alcohol. ? Avoid spicy or fatty foods. General instructions ? Take rpda-nfh-lgpfgzb and prescription medicines only as told by your health care provider. ? Drink enough fluid to keep your urine pale yellow. ? Wash your hands often using soap and water for at least 20 seconds. If soap and water are not available, use hand tracer powder blender. ? Make sure that everyone in your [...] and drinking to prevent dehydration. ? Take tgif-ubf-inofyse and prescription medicines only as told by [...] provider. Document Revised: 07/29/2021 Document Reviewed: 07/29/2021 [employer] Patient Education ? 2022 [employer]. Normal [facility] ED Patient Summaryon 023 ED Patient Summary [place] [id number] Patient Discharge Instructions Person Information Name: JORDIN TYLER Age: 18 Years Arrival Date: 01/23/2023 11:31:15 Discharge Diagnosis: Nausea/vomiting in Primary Care Physician: CHASE, GENERIC Provider Information Primary Provider: Steven Alatorre DO Advanced Yarn Spooler:Colby Ayers PA-C The exam and treatment you received in the Emergency Department were for an urgent problem and are not intended as complete care. It is important that you follow up with a doctor, nurse practitioner, or physician?s assistant designer for ongoing care. If your symptoms become worse or you do not improve as expected and you are unable to reach your usual health care provider, you should return to the Emergency Department. We are available 24 hours a day. JORDIN TYLER has been given the following list of patient education materials, prescriptions and follow-up instructions: Follow-up Instructions: With: Address: When: Ras ROMERO, [address], [place] [address] Business (1) In 3 days 01/26/2023 In the event that this physician does not participate in your insurance network, please consult with your insurance company to find a nearby participating provider. Patient Education Materials: Nausea and Vomiting, Adult A MESSAGE TO ALL PATIENTS REGARDING OPIOIDS PRESCRIPTION OPIOIDS: WHAT YOU NEED TO KNOW Prescription opioids can be used to help relieve viqexenk-cg-yvftsl pain and are often prescribed following a [...] be struggling with addiction, tell your health career coach and ask for guidance or call SAMH[employer]?S National Helpline at 1-660-522-AJDN (more content not included)... Normal [facility] HEMATOLOGYOrdered By: Brandon Sweeney on 01-23-2023 Anisocytosis Ql (Bld) Present (01/23/23 12:15 PM) Normal [facility] HemeManSS Erythrocyte distribution width (RBC) [Ratio] 17.6 % High 10.9 - 14.2 % [facility] HemeAutoSS Hematocrit (Bld) [Volume fraction] 33.9 % Low 34.0 - 46.0 % [facility] HemeAutoSS Hemoglobin (Bld) [Mass/Vol] 11.3 g/dL Low 12.0 - 16.0 gm/dL [facility] HemeAutoSS Hypochromia Auto Ql (Bld) Present (01/23/23 12:15 PM) Normal [facility] HemeManSS MCH (RBC) [Entitic mass] 24.5 pg [...] 0.4 E9/L Normal 0.2 - 1.0 E9/L [facility] HemeAutoSS Neutrophils/100 WBC (Bld) 70.0 % Normal 36.0 - 75.0 % [facility] HemeAutoSS Neutrophils/Leukocytes Auto (Bld) [Pure # fraction] 4.2 E9/L Normal 2.0 - 7.5 E9/L [facility] HemeAutoSS Hep Func Panelon 01-23-2023 Albumin [Mass/Vol] 4.4 g/dL Normal 3.3-5.0 [facility] Comment on above: Performed By: #### 2 244099, 78778357, 9355941, 6351999, 44654231, 9116783, 8647626, 4361459, 87045767 ####[facility] [address] [place] [address] Albumin/Globulin [Mass ratio] 1.3 {ratio} Normal 1.1-2.2 [facility] Comment on above: Performed By: #### 2 132378, 00567593, 7460802, 6821042, 05994817, 5263887, 1818944, 0463448, 00514283 ####[facility] [address] [place] [address] Alk Phos 107 Int._Unit/L High 21-98 [place] Comment on above: Performed By: #### 2 296752, 43101059, 4032089, 1891799, 23762717, 1770348, 5667231, 7439829, 21466501 ####[facility] [address] [place] [address] ALT 71 Int._Unit/L High 6-46 [facility] Comment on above: Performed By: #### 2 135202, 90637694, 3892106, 7122191, 77383394, 4933000, 8616397, 6006101, 68413269 ####[facility] [address] [place] [address] AST 60 Int._Unit/L High 5-43 [facility] Comment on above: Performed By: #### 2 231534, 55638351, 7989972, 6228736, 08711502, 6763840, 8487386, 7707741, 65364695 ####[facility] [address] [place] [address] Bili Direct 0.2 mg/dL Normal 0.0-0.4 [facility] Comment on above: Performed By: #### 2 705044, 70080860, 2182079, 0557088, 80267009, 7986613, 6355698, 5677147, 42077058 ####[place] [address] [place] [address] Bili Indirect 0.2 mg/dL Normal 0.1-0.9 [facility] Comment on above: Performed By: #### 2 911672, 39320470, 3049449, 4086668, 28800496, 4445958, 3746401, 0711507, 04935610 ####[place] [address] [place] [address] Bili Total 0.4 mg/dL Normal 0.0-1.1 [facility] Comment on above: Performed By: #### 2 270422, 16876918, 9756071, 2432013, 84721169, 3215902, 9716504, 1666830, 98196333 ####[place] [address] [place] [address] Globulin (S) [Mass/Vol] 3.3 g/dL Normal 1.4-4.0 [facility] Comment on above: Performed By: #### 2 255239, 41260603, 1643837, 3450145, 46711048, 2515112, 4403059, 5468460, 12232465 ####[place] [address] [place] [address] Protein [Mass/Vol] 7.7 g/dL Normal 6.0-7.8 [facility] Comment on above: Performed By: #### 2 781943, 33466370, 5221857, 4313902, 14644272, 6780153, 6492834, 5093490, 89297896 ####[facility] [address] [place] [address] Lipase Levelon 01-23-2023 Lipase Lvl 10 unit/L Low 13-58 [facility] Comment on above: Performed By: #### 2 518300, 51947750, 6644298, 9389782, 42286209, 3722309, 7845658, 3407342, 32859763 ####[facility] [address] [place] [address] Morphon 01-23-2023 Anisocytosis Ql (Bld) Present Normal Fis [facility] Comment on above: Order Comment: Order Added by Discern Expert. Performed By: #### 2 882912, 48283708, 1559067, 3312886, 59951406, 7297288, 7078403, 1301276, 02379162 ####[facility] [address] [place] [address] Hypochromia Auto Ql (Bld) Present Normal [facility] Comment on above: Order Comment: Order Added by Discern Expert. Performed By: #### 2 671314, 46130135, 3713525, 9988806, 19871952, 5705720, 0135365, 4483210, 28072361 ####[facility] [address] [place] [address] Microcytes Ql (Bld) Present [facility] Comment on above: Order Comment: Order Added by Discern Expert. Performed By: #### 2 294420, 26096309, 6033465, 0131052, 74628903, 4329355, 1889789, 1563893, 13793968 ####[facility] [address] [place] [address] Morphology Cliff (Bld) [Interp] See Morphology Normal [facility] Comment on above: Order Comment: Order Added by Discern Expert. Performed By: #### 2 204376, 94995600, 5514700, 7011097, 00531782, 1996629, 8974708, 7593210, 80273506 ####[facility] [address] [place] [address] SEROLOGYOrdered By: Kath Harden on 01-23-2023 Beta HCG ( test) Ql Positive (01/23/23 12:15 PM) Normal [facility] Man Sero UA With Cult Reflexon 2022 Bilirubin Ql (U) 1+ Abnormal Negative [facility] Comment on above: Performed By: #### 1 8422429 #### [facility] [address] [place] [address] Clarity (U) CLEAR Normal Clear [facility] Comment on above: Performed By: #### 1 3233739 #### [facility] [address] [place] [address] Color (U) DARK KIMMY Invalid Interpretation Code [facility] Comment on above: Performed By: #### 1 9720159 #### [facility] [address] [place] [address] Epithelial cells.squamous LM.HPF (Urine sed) [#/Area] 0-2 Normal 0-2 [facility] Comment on above: Performed By: #### 1 4552868 #### [facility] [address] [place] [address] Glucose Test strip (U) [Mass/Vol] Negative Normal Negative [facility] Comment on above: Performed By: #### 1 0685015 #### [facility] [address] [place] [address] Hemoglobin Ql (U) Negative Normal Negative [facility] Comment on above: Performed By: #### 1 8405467 #### [facility] [address] [place] [address] Ketones (U) [Mass/Vol] 3+ Abnormal Negative [facility] Comment on above: Performed By: #### 1 7891815 #### [facility] [address] [place] [address] [place].plasma/[place].R BC (Bld) [Mass ratio] 0-3 Normal 0-3 [facility] Comment on above: Performed By: #### 1 8410285 #### [facility] [address] [place] [address] Mucus Ql (Urine sed) TRACE Normal Fish [facility] Comment on above: Performed By: #### 1 7285988 #### [facility] [address] [place] [address] Nitrite Ql (U) Negative Normal Negative [facility] Comment on above: Performed By: #### 1 9302182 #### [facility] [address] [place] [address] pH (U) 6.5 [pH] Invalid Interpretation Code 5.0-9.0 [facility] Comment on above: Performed By: #### 1 5723186 #### [facility] [address] [place] [address] Protein (U) [Mass/Vol] 1+ Abnormal Negative [facility] Comment on above: Performed By: #### 1 3277057 #### [facility] [address] [place] [address] Specific gravity (U) [Rel density] 1.025 Invalid Interpretation Code 1.005-1.030 [facility] Comment on above: Performed By: #### 1 2686663 #### [facility] [address] [place] [address] Type of Urine collection method Clean Catch Normal [facility] Comment on above: Performed By: #### 1 2032005 #### [facility] [address] [place] [address] Urobilinogen Qn (U) 1.0 {Karri'U}/dL Normal 0.0-1.0 [facility] Comment on above: Performed By: #### 1 0318033 #### [facility] [address] [place] [address] WBC Auto Ql (U) Negative Normal Negative [place] Comment on above: Performed By: #### 1 6246221 #### [facility] [address] [place] [address] WBC LM.HPF (Urine sed) [#/Area] 0-5 Normal 0-5 [facility] Comment on above: Performed By: #### 1 3477785 #### [facility] [address] [place] [address] URINALYSISOrdered By: Maranda Muñoz on 01-23-2023 Bilirubin [...] Interpretation Code Negative [facility] UA Auto SS [place].plasma/[place].R BC (Bld) [Mass ratio] 0-3 /HPF Normal [...] [facility] UA Auto SS Urobilinogen Qn (U) 1.7897957 {Karri'U}/dL Normal 0.0 - 1.0 EU/dL [facility] UA Auto SS WBC Auto Ql (U) Negative (01/23/23 2:25 PM) Normal Negative [facility] UA Auto SS WBC LM.HPF (Urine sed) [#/Area] 0-5 /HPF Normal 0-5/HPF [facility] UA Auto SS US 1st Trimesteron 01-23-2023 [...] corresponding gestational age +/- 1 week are: [place] Rump Length: 0.7 cm Composite Ultrasound Age: [...] 2 Transabdominal Ultrasound Performed FHR (bpm) 125 [place] Rump Length (in cm) 0.7 Normal [facility] eGFRon 01-23-2023 GFR/1.73 sq M.predicted among non-blacks MDRD (S/P/Bld) [Vol rate/Area] mL/min/{1.73_m2} Normal >=59 [facility] Comment on above: Order Comment: Order added by Discern Expert. Performed By: #### 2 073409, 11582631, 0497811, 4139657, 68329561, 9690841, 1666288, 3638474, 08528433 ####[facility] [address] [place] [address] Interdisciplinary Note - Soc ial Workeron 01-15-2023 Interdisciplinary Note - Vice Investigator This SW attempted to reach patient again today regarding needed resources. Patient again did not answer and voicemails are not able to be left. SW will remain available. Normal [facility] Interdisciplinary Note - Soc ial Workeron 01-08-2023 Interdisciplinary Note - Vice Investigator This SW attempted to contact patient today [...] being full. SW will remain available. Normal [facility] Grp A Strp PCRon 01-02-2023 Grp A Strp Intrl Ctrl Pass Normal Fis [facility] Comment on above: Performed By: #### 1 6909237 #### [facility] [address] [place] [address] S. pyogenes DNA TIM+probe Ql (Throat) Positive Abnormal [facility] Comment on above: Result Comment: Test ing performed using DNA amplification. Performed By: #### 1 6507009 #### [facility] [address] [place] [address] Family Medicine Office/Clini c Noteon 01-01-2023 Family [...] with voice recognition software. Occasional wrong-word or ?stenv-r-veex? substitutions may have occurred due to the inherent limitations of voice recognition software. 17 yo female presents today with cc of bodyaches and headache concern for COVID-19 or strep. Patient states she has a 4-month-old and a 1 and lill-arln-viu. States she currently does not have custody [...] Will place a referral to social media marketing specialist see if we can get case management to help her out as she states she does not currently have her insurance card if she should be able to log online and take it 1 she has difficulty with transportation and walks icuk-upy-inhdu to work currently at [employer] Will see if we can get her [...] understanding. Ordered: Group A Strep by PCR Vice Investigator - Ambulatory Referral 2. BMI 28.0-28.9,adult (Z68.28: Body mass index [BMI] 28.0-28.9, adult) The standard range for ages 18 and older is >=18.5 and < 25 kg/m2. Your BMI today was above this range, this falls in the overweight to obese category and there are medical benefits to weight loss. We can offer couns (more content not included)... Normal [facility] Comment on above: Result Comment: Elec tronically Signed By: Alex ROBERT, Alon Mercedes\.br\Date and Time Signed: 01/01/23 16:26 EST Patient Letter FTMCon 2022 Patient Letter [facility] [address] [facility] [place] [phone] January 01, 2023 JORDIN TYLER [address] [place] [id number] : 2005 Please excuse JORDIN TYLER from [...] illness. Provider Signature: Alon Johnson PA-C Physician Microchip Specialist [facility] [address] [address] [facility] C Urineon 12-09-2022 Bacteria identified Cx [...] Locations R1: This test was performed at: [facility], [address] [place] [address], [address] [place] [address], [facility] Comment on above: Performed By: #### 1 [id number] #### [facility] [address] [place] [address] Discharge Instructionson Discharge Instructions [id number]#1.00TIFF [facility] ED Clinical Summaryon 2022 ED Clinical Summary [address] [address] ED Clinical Summary Person Information Name: JORDIN TYLER [facility] Age: 17 Years : 2005 Sex: Female Language: Sudanese PCP: NONE, XXXX Marital Status: Single Phone: [phone] Visit Id: Visit Reason: Test; PREG TEST [...] 12/08/2022 00:29:17 12/08/2022 00:29:17 12/08/2022 00:29:17 ADDRESS: [address] [place] [phone] PHYS DOC NOTES: MEDICAL INFORMATION: Prescriptions Given: Medications to Continue with No Changes Other Medications ibuprofen (ibuprofen 600 mg Tab) 1 Tablets By Mouth every 6 hours. Refills: 0. PATIENT EDUCATION INFORMATION: Instructions: Home Test Information Follow up: With: Address: When: Carapatel Bullard [address] [place] [address] Business (1) In 3 days 12/10/2022 Comments: Few concerns about continued can take up test at home in approximately 1 week. Please follow-up with your primary care doctor next 2 to 3 days. Please return to the ED for any new or worsening symptoms. With: Address: When: XXXX NONE , [place] In 3 days DIAGNOSIS: Encounter for medical screening examination Normal [facility] ED Note-Physicianon 12-09-19 ED Note-Physician [...] and Complexity of Problems Differential Diagnosis: [] [facility] Data External documents reviewed: [] My [...] her primary care doctor in addition to JAVA FLEX DEVELOPER for further evaluation management. She is to [...] 3 days 12/10/2022 EST [address], [address] [place] [address]- Business (1) Additional Instructions: Few concerns about [...] 23:15:00) UA (more content not included)... Normal [facility] Comment on above: Result Comment: Elec tronically Signed By: Damaris Jean Baptiste DObr\Date and Time Signed: 12/08/22 02:32 EDT ED [...] Reviewed: 10/25/2020 Elsevier Patient Education ? 2022 [employer] Normal [facility] ED Patient Summaryon 023 ED Patient Summary [address] [address] Patient Discharge Instructions Person Information Name: JORDIN TYLER Age: 17 Years Arrival Date: 12/07/2022 22:58:31 Discharge Diagnosis: Encounter for medical screening examination Primary Care Physician: NONE, XXXX Provider Information Primary Provider: Damaris Jean Baptiste DO Advanced Yarn Spooler:Monica The exam and treatment you received in the Emergency Department were for an urgent problem and are not intended as complete care. It is important that you follow up with a doctor, nurse practitioner, or physician?s assistant designer for ongoing care. If your symptoms become worse or you do not improve as expected and you are unable to reach your usual health care provider, you should return to the Emergency Department. We are available 24 hours a day. JORDIN TYLER has been given the following list of patient education materials, prescriptions and follow-up instructions: Follow-up Instructions: With: Address: When: Cara Bullard [address] [place] [address] Nick, Emmy C, [facility] [address] [place] [address] [facility] (1) In 3 days 12/10/2022 Comments: Few concerns about continued can take up test at home in approximately 1 week. Please follow-up with your primary care doctor next 2 to 3 days. Please return to the ED for any new or worsening symptoms. With: Address: When: XXXX [facility] , [place] In 3 days In the event that this physician does not participate in your insurance network, please consult with your insurance company to find a nearby participating provider. Patient Education Materials: Home Test Information A MESSAGE TO ALL PATIENTS REGARDING OPIOIDS PRESCRIPTION OPIOIDS: WHAT YOU NEED TO KNOW Prescription opioids can be used to help relieve cubowlsu-qv-dcnnnd pain and are often prescribed following a [...] Administration (www.fd (more content not included)... Normal [facility] Consent for Treatmenton 11-0 Consent for Treatment [id number] 8#1.00TIFF Normal [facility] - Microbiology an d Antimicrobial susceptibilityOrdered By: Felicita Barrow on 12-07-2022 Bacteria identified Cx Nom (U) 1,000 cfu/ml Mixed skin contaminants [facility] SEROLOGYOrdered By: Stefani Trejo on 12-07-2022 HCG.beta subunit (U) [Moles/Vol] Negative Normal [facility] Man Sero U BetaHcg Qualon 12-07-2022 HCG.beta subunit (U) [Moles/Vol] Negative Normal [facility] Comment on above: Performed By: #### 1 [id number] #### [facility] [address] [place] [address] UA With Cult Reflexon 2022 Bacteria LM Ql (Urine sed) TRACE Normal Trace [facility] Comment on above: Performed By: #### 1 [id number] #### [facility] [address] [place] [address] Bilirubin Ql (U) Negative Normal Negative [facility] Comment on above: Performed By: #### 1 [id number] #### [facility] [address] [place] [address] Clarity (U) SL CLOUDY Abnormal Clear [facility] Comment on above: Performed By: #### 1 [id number] #### [facility] [address] [place] [address] Color (U) DARK YELLO Abnormal Yellow [facility] Comment on above: Performed By: #### 1 [id number] #### [facility] [address] [place] [address] Epithelial cells.squamous LM.HPF (Urine sed) [#/Area] 5-8 Normal 0-2 [facility] Comment on above: Performed By: #### 1 [id number] #### [facility] [address] [place] [address] Glucose Test strip (U) [Mass/Vol] Negative Normal Negative [facility] Comment on above: Performed By: #### 1 [id number] #### [facility] [address] [place] [address] Hemoglobin Ql (U) Negative Normal Negative [facility] Comment on above: Performed By: #### 1 [id number] #### [facility] [address] [place] [address] Ketones (U) [Mass/Vol] Negative Normal Negative [facility] Comment on above: Performed By: #### 1 [id number] #### [facility] [address] [place] [address] [place].plasma/[place].R BC (Bld) [Mass ratio] 0-3 Normal 0-3 [facility] Comment on above: Performed By: #### 1 [id number] #### [facility] [address] [place] [address] Mucus Ql (Urine sed) 3+ Normal Fish [facility] Comment on above: Performed By: #### 1 [id number] #### [facility] [address] [place] [address] Nitrite Ql (U) Negative Normal Negative [facility] Comment on above: Performed By: #### 1 [id number] #### [facility] [address] [place] [address] pH (U) 6.0 [pH] Invalid Interpretation Code 5.0-9.0 [facility] Comment on above: Performed By: #### 1 [id number] #### [facility] [address] [place] [address] Protein (U) [Mass/Vol] TRACE Abnormal Negative [facility] Comment on above: Performed By: #### 1 [id number] #### [facility] [address] [place] [address] Specific gravity (U) [Rel density] >=1.030 Invalid Interpretation Code 1.005-1.030 [facility] Comment on above: Performed By: #### 1 [id number] #### [facility] [address] [place] [address] Type of Urine collection method Clean Catch Normal [facility] Comment on above: Performed By: #### 1 [id number] #### [facility] [address] [place] [id number] Urobilinogen Qn (U) 0.2 {Karri'U}/dL Normal 0.0-1.0 [facility] Comment on above: Performed By: #### 1 [id number] #### [facility] [address] [place] [id number] WBC Auto Ql (U) Negative Normal Negative [place] Comment on above: Performed By: #### 1 [id number] #### [facility] [address] [place] [id number] WBC LM.HPF (Urine sed) [#/Area] 6-15 Abnormal 0-5 [facility] Comment on above: Performed By: #### 1 [id number] #### [facility] [address] [place] [address] URINALYSISOrdered By: Raman Trejo on 12-07-2022 Bacteria [...] PM) Normal Negative [facility] UA Auto SS [place].plasma/[place].R BC (Bld) [Mass ratio] 0-3 /HPF Normal [...] [facility] UA Auto SS Urobilinogen Qn (U) 0.4189190 {Karri'U}/dL Normal 0.0 - 1.0 EU/dL [facility] [...] and Complexity of Problems Differential Diagnosis: [] [facility] Data External documents reviewed: [] My [...] q12hr Follow-up With When Contact Information Dental: [facility] [phone] In 3 days 11/02/2022 EDT Additional Instructions: Dental: [facility] [phone] In 3 days 11/02/2022 EDT Additional Instructions: Dental: [facility] [phone] In 3 days 11/02/2022 EDT Additional Instructions: Patient Education Dental Pain, Kuwi-bq-Dwdv Attestation Patient seen and evaluated by the physician assistant designer. Attending physician was present in the emergency department and supervised care. This visit was performed by both the physician and an APC. I performed all aspects of the MDM as documented. This report was transcribed using voice recognition software. Every effort was made to ensure accuracy, however, inadvertently computerized performing artist mistakes may be present. Appropriate healthcare PPE [...] Viral gastroenteritis (more content not included)... Normal [facility] Comment on above: Result Comment: Elec tronically Signed By: Donavan Lawson PA-C\.br\Date and Time Signed: 10/30/22 12:22 EDT\.br\Electronically Co-Signed By: Steven Alatorre DO\.berkley\Date and Time Co-Signed: 10/31/22 08:00 EDT Consent for Treatmenton 10-07 Consent for Treatment [id number] #1.00CD:127 Normal [facility] Discharge Instructionson Discharge Instructions [id number] 4#1.00CD:127 Normal [facility] ED Clinical Summaryon 2022 ED Clinical Summary [place] [id number] ED Clinical Summary Person Information Name: JORDIN TYLER [facility] Age: 17 Years : 2005 Sex: Female Language: Sudanese PCP: NONE, XXXX Marital Status: Single Phone: [phone] Visit Id: Visit Reason: Dental pain; MOUTH [...] 10/30/2022 11:19:01 10/30/2022 11:19:01 10/30/2022 11:19:01 ADDRESS: [address] [place] [id number] PHYS DOC NOTES: MEDICAL INFORMATION: Prescriptions Given: New Medications [facility]/pharmacy #[id number], [address], [place] [id number], [phone] amoxicillin-clavulan ate (Augmentin 875 mg-125 mg Tab) 1 Tablets By Mouth every 12 hours for 10 Days. Refills: 0. Medications to Continue with No Changes Other Medications ibuprofen (ibuprofen 600 mg Tab) 1 Tablets By Mouth every 6 hours. Refills: 0. PATIENT EDUCATION INFORMATION: Instructions: Dental Pain, Zftx-mx-Kxdc Follow up: With: Address: When: Dental: [facility] [phone] In 3 days 11/02/2022 With: Address: When: Dental: [facility] [phone] In 3 days 11/02/2022 With: Address: When: Dental: [facility] [phone] In 3 days 11/02/2022 DIAGNOSIS: Pain, dental Normal [facility] ED Patient Education Noteon 10-30-2022 [...] these instructions at home: Medicines ? Take kumw-ymp-xpdapgs and prescription medicines only as told by [...] to the area. Brushing your teeth ? [place] your teeth twice a day using a [...] when you eat or drink. ? Take gcpc-hoh-vjwfyzb and prescription medicines only as told by your dentist. ? Watch your dental pain for any changes. Let your dentist know if symptoms get worse. This information is not intended to replace advice given to you by your health care provider. Make sure you discuss any questions you have with your health care provider. Document Revised: 10/27/2020 Document Reviewed: 10/27/2020 [employer] Patient Education ? 2022 [employer]. Normal [facility] ED Patient Summaryon 023 ED Patient Summary [place] [id number] Patient Discharge Instructions Person Information Name: JORDIN TYLER Age: 17 Years Arrival Date: 10/30/2022 10:43:07 Discharge Diagnosis: Pain, dental Primary Care Physician: NONE, XXXX Provider Information Primary Provider: Steven Alatorre DO Advanced Yarn Spooler:None The exam and treatment you received in the Emergency Department were for an urgent problem and are not intended as complete care. It is important that you follow up with a doctor, nurse practitioner, or physician?s assistant designer for ongoing care. If your symptoms become worse or you do not improve as expected and you are unable to reach your usual health care provider, you should return to the Emergency Department. We are available 24 hours a day. JORDIN TYLER has been given the following list of patient education materials, prescriptions and follow-up instructions: Follow-up Instructions: With: Address: When: Dental: [facility] [phone] In 3 days 11/02/2022 With: Address: When: Dental: [facility] [phone] In 3 days 11/02/2022 With: Address: When: Dental: [facility] [phone] In 3 days 11/02/2022 In the event that this physician does not participate in your insurance network, please consult with your insurance company to find a nearby participating provider. Patient Education Materials: Dental Pain, Qwty-zl-Orsi A MESSAGE TO ALL PATIENTS REGARDING OPIOIDS PRESCRIPTION OPIOIDS: WHAT YOU NEED TO KNOW Prescription opioids can be used to help relieve fzezlryp-xs-qzwkjq pain and are often prescribed following a [...] care professio (more content not included)... Normal [facility] Nursing Assessmenton 023 Nursing Assessment [id number] #1.00CD:127 Normal [facility] Insurance Correspondence Off iceon 08-11-2022 Insurance Correspondence Office [id number] 8#1.00CD:127 [facility] Nursing Assessmenton 023 Nursing Assessment [id number] 0#1.00CD:127 [facility] Chlamydia/Gonococcus, NAAon 08-10-2022 C. trachomatis rRNA TIM+probe Ql (Unsp spec) Negative Invalid Interpretation Code Negative [facility] Comment on above: Performed By: #### 1 [id number] #### [facility] [address] [place] [address] N. gonorrhoeae rRNA TIM+probe Ql (Unsp spec) Negative Invalid Interpretation Code Negative [facility] Comment on above: Result Comment: Perf ormed at: =G [facility] [address] TANIA Traore [id number] MD Rodriguez Briones Performed By: #### 1 [id number] #### [facility] [address] [place] [address] Discharge Instructionson Discharge Instructions [id number] 9#1.00CD:127 Normal [facility] Inpatient Clinical Summaryon 08-10-2022 Inpatient Clinical Summary [address] [address] Clinical Summary Person Information Name: JORDIN TYLER [facility] Age: 17 Years : 2005 Sex: Female PCP: NONE, XXXX Marital Status: Single Phone: [phone] Race: White Ethnicity: Non- or Language: Sudanese Visit Id: Visit Reason: Speciality: Acuity: 2 PP Enc Type: Inpatient Med Service: Obstetrics Arrival: 08/07/2022 06:12:23 Discharge: 08/10/2022 12:40:00 Dispo Type: Home ([facility]) Address: [address] [place] [id number] Provider Notes: Diagnosis: 37 weeks gestation of [...] Physician: Follow up: With: Address: When: Eduardo Leach [facility] Lucas Romerore[facility]all [address] [place] [address] Business (5) Within 6 weeks Comments: Call Dr if fever>100.5 F, heavy bleeding Call for any problems. Patient Education Information: Normal [facility] Inpatient Patient Summaryon 08-10-2022 Inpatient Patient Summary [address] [address] Patient Discharge Instructions PERSON INFORMATION Name: JORDIN TYLER Date of : 2005 Current Date: 08/10/2022 12:42:13 PHYSICIANS Admitting Physician: Jerry WILSON DO Primary Care Physician: MONICA, LISANDRO PCP Phone Number: Comment: Discharge Diagnosis: 37 [...] test results: Follow up: With: Address: When: Lucas Moya, [employer] [address] [place] [address] Business (1) Within 6 weeks Comments: Call [...] Clinican/Nurse Signature Date MEDICATION LIST [facility]ations [id number] [address], [place] [id number], [phone] ibuprofen (ibuprofen 600 mg Tab) 1 Tablets By Mouth every 6 hours. Refills: 0. Last Dose: Next Dose: Pharmacy Information: [facility] PATIENT EDUCATION INFORMATION Instructions: Medication Leaflets: [...] to serve you. Thank you for choosing [facility] Normal [facility] C Urineon 08-09-2022 Bacteria identified [...] Locations R1: This test was performed at: [facility], [address] [place] [address], [address]- , , Normal [facility] Comment on above: Performed By: #### 1 [id number], [id number] #### [facility] [address] [place] [address] CBC w/Indiceson 08-09-2022 Erythrocyte distribution width (RBC) [Ratio] 16.0 % High 10.9-14.2 [facility] Comment on above: Performed By: #### 1 [id number] #### [facility] [address] [place] [address] Hematocrit (Bld) [Volume fraction] 21.8 % Low 34.0-46.0 [facility] Comment on above: Performed By: #### 1 [id number] #### [facility] [address] [place] [address] Hemoglobin (Bld) [Mass/Vol] 7.1 g/dL Low 12.0-16.0 [facility] Comment on above: Performed By: #### 1 [id number] #### [facility] [address] [place] [address] MCH (RBC) [Entitic mass] 22.8 pg Low 27.0-34.0 [facility] Comment on above: Performed By: #### 1 [id number] #### [facility] [address] [place] [address] MCHC (RBC) [Mass/Vol] 32.6 g/dL Normal 31.4-36.0 [facility] Comment on above: Performed By: #### 1 [id number] #### [facility] [address] [place] [address] MCV (RBC) [Entitic vol] 69.9 fL Low 80.0-100.0 [facility] Comment on above: Performed By: #### 1 [id number] #### [facility] [address] [place] [address] Platelet mean volume (Bld) [Entitic vol] 9.1 fL Normal 6.4-10.8 [facility] Comment on above: Performed By: #### 1 [id number] #### [facility] [address] [place] [address] Platelets (Bld) [#/Vol] 154.0 E9/L Normal 150.0-500.0 [facility] Comment on above: Performed By: #### 1 [id number] #### [facility] [address] [place] [address] RBC (Bld) [#/Vol] 3.1 E12/L Low 4.3-5.9 [facility] Comment on above: Performed By: #### 1 [id number] #### [facility] [address] [place] [address] WBC corrected for nucl RBC Auto (Bld) [#/Vol] 8.1 E9/L Normal 4.0-11.0 [place] Comment on above: Performed By: #### 1 [id number] #### [facility] [address] [place] [address] Group B Strep by PCRon 08-09 Group B Strep colonization by PCR Negative Normal Negative [facility] Comment on above: Performed By: #### 1 [id number] #### [facility] [address] [place] [address] HEMATOLOGYOrdered By: Ana Rivera on 08-09-2022 Erythrocyte [...] 8.1 E9/L Normal 4.0 - 11.0 E9/L [facility] HemeAutoSS Insurance Correspondence Off iceon 08-09-2022 Insurance Correspondence Office [id number] #1.00CD:127 Normal [facility] Insurance Correspondence Office [id number] #1.00CD:127 Normal [facility] Morphon 08-09-2022 Hypochromia Auto Ql (Bld) Present Normal [facility] Comment on above: Order Comment: Order Added by Discern Expert. Performed By: #### 1 [id number] #### [facility] [address] [place] [address] Microcytes Ql (Bld) Present [facility] Comment on above: Order Comment: Order Added by Discern Expert. Performed By: #### 1 [id number] #### [facility] [address] [place] [address] Morphology Cliff (Bld) [Interp] See Morphology Normal [facility] Comment on above: Order Comment: Order Added by Discern Expert. Performed By: #### 1 [id number] #### [facility] [address] [place] [address] Progress Note-Physicianon Progress Note-Physician Patient: JORDIN TYLER Age: 17 years Sex: Female : 2005 Associated Diagnoses: None Author: Rohit CASE, Eduardo Mendez Basic Information PPD #1 from [facility]. She is well. Anemic, but stable Review [...] 2 tab(s), Oral, q6hr benzocaine-menthol topical 20%-0.5% Tama [F] 1 spray(s), Topical, q4hr calcium carbonate [...] (AUG 09 07:27) DBP 68 mmHg (AUG 09:27) SpO2 100 % (AUG 09:28) General: Alert [...] Plan Condition: Stable. Plan Routine care. Normal [facility] Comment on above: Result Comment: Elec tronically Signed By: Rohit CASE, Eduardo Mendez\.br\Date and Time Signed: 08/09/22 11:29 EDT Vaccinationson 08-09-2022 Vaccinations [id number]# 1.00CD:127 Normal [facility] Nursing Delivery Noteon Nursing Delivery Note [...] BY FATHER, NO SIGNS OF DISTRESS Normal [facility] Nursing Delivery Note Catch:0110 SPONTANEOUS Vaginal [...] CRY 0120-To preheated warmer PER MOTHER REQUEST. dried with towel. Wet linens removed. Respirations unlabored. Heart rate regular. Color pink. Infant weighed and measured. 0123- INFANT PLACED BACK SKIN TO SKIN WITH MOTHER- NO SIGNS OF DISTRESS. BONDING APPROPRIATELY Normal [facility] Comment on above: Other Comment: [...] Review: Problems (Active Problems Only) (SNOMED CT: 194121727, Onset: 11/05/21) Attention deficit hyperactivity disorder, combined type (SNOMED CT: 85697252, Onset: --) Dyspnea (SNOMED CT: 084661200, Onset: --) Finding related to (SNOMED CT: 876108307, Onset: --) Age mother conceived under 17 (Other: , Onset: --) Infection (SNOMED CT: 24202844, Onset: --) Delivery Summary Baby A Membrane [...] 3:01 E (more content not included)... Normal [facility] Comment on above: Result Comment: [...] 140\.br\ Movement: Present per patient\.br\ Presentation : --\.br\\.br\ \.br\\.br\Da te: 01/18/22\.br \EGA: 8w5d \.br\Weight (lbs [facility] Comment on above: Result Comment: Elec tronically Signed By: Jerry WILSON DO\.br\Date and Time Signed: 08/08/22 00:08 EDT ABO/Rhon 08-07-2022 ABO/Rh Positive Invalid Interpretation Code [facility] Comment on above: Performed By: #### 1 [id number], [id number] #### [facility] [address] [place] [address] ABO/Rh History Checkon 08-07 ABO/Rh History Check Verified Hx Blood Type Normal [facility] Comment on above: Performed By: #### 1 [id number], [id number] #### [facility] [address] [place] [address] ABSCon 08-07-2022 ABSC Gel Interp Negative Normal [place] Comment on above: Performed By: #### 1 [id number], [id number] #### [facility] [address] [place] [address] BLOOD BANKOrdered By: Brandie Garcia on 08-07-2022 ABO/Rh Interp Positive Invalid Interpretation Code [facility] BB Subsection ABSC Gel Interp Negative (08/07/22 12:49 PM) Normal [facility] BB Subsection Blood Bank ID#on 08-07-2022 BBID# [id number] Invalid Interpretation Code [facility] Comment on above: Performed By: #### 1 [id number], [id number] #### [facility] [address] [place] [address] CBC w/Indiceson 08-07-2022 Erythrocyte distribution width (RBC) [Ratio] 16.0 % High 10.9-14.2 [facility] Comment on above: Performed By: #### 2 [id number], [id number] #### [facility] [address] [place] [address] Hematocrit (Bld) [Volume fraction] 25.6 % Low 34.0-46.0 [facility] Comment on above: Performed By: #### 2 670444, [id number] #### [facility] [address] [place] [address] Hemoglobin (Bld) [Mass/Vol] 8.0 g/dL Low 12.0-16.0 [facility] Comment on above: Performed By: #### 2 711540, [id number] #### [facility] [address] [place] [address] MCH (RBC) [Entitic mass] 21.9 pg Low 27.0-34.0 [facility] Comment on above: Performed By: #### 2 902235, [id number] #### [facility] [address] [place] [address] MCHC (RBC) [Mass/Vol] 31.3 g/dL Low 31.4-36.0 [facility] Comment on above: Performed By: #### 2 006196, [id number] #### [facility] [address] [place] [address] MCV (RBC) [Entitic vol] 69.9 fL Low 80.0-100.0 [facility] Comment on above: Performed By: #### 2 544692, [id number] #### [facility] [address] [place] [address] Platelet mean volume (Bld) [Entitic vol] 8.6 fL Normal 6.4-10.8 [facility] Comment on above: Performed By: #### 2 010269, [id number] #### [facility] [address] [place] [address] Platelets (Bld) [#/Vol] 232.0 E9/L Normal 150.0-500.0 [facility] Comment on above: Performed By: #### 2 342469, [id number] #### [facility] [address] [place] [address] RBC (Bld) [#/Vol] 3.7 E12/L Low 4.3-5.9 [facility] Comment on above: Performed By: #### 2 932703, [id number] #### [facility] [address] [place] [address] WBC corrected for nucl RBC Auto (Bld) [#/Vol] 8.6 E9/L Normal 4.0-11.0 [place] Comment on above: Performed By: #### 2 657096, [id number] #### [facility] [address] [place] [address] Consent for Procedure/Surger yon 08-07-2022 Consent for Procedure/Surgery [id number]#1.00CD:127 Normal [facility] Consent for Treatmenton Consent for Treatment [id number] #1.00CD:127 Normal [facility] Consent for Treatment [id number] #1.00CD:127 Normal [facility] Discharge Instructionson Discharge Instructions [id number] 6#1.00CD:127 Normal [facility] HEMATOLOGYOrdered By: Briseida Rose on 08-07-2022 Anisocytosis Ql (Bld) Present (08/07/22 12:49 PM) Normal [facility] HemeManSS Erythrocyte distribution width (RBC) [Ratio] 16.0 % High 10.9 - 14.2 % [facility]eAuto[facility] Hematocrit (Bld) [Volume fraction] 25.6 % Low 34.0 - 46.0 % [facility]eAuto[facility] Hemoglobin (Bld) [Mass/Vol] 8.0 g/dL Low 12.0 - 16.0 gm/dL [facility]Auto[facility] Hypochromia Auto Ql (Bld) Present (08/07/22 12:49 PM) Normal [facility]eManSS MCH (RBC) [Entitic mass] 21.9 pg Low 27. 0 - 34.0 pg [facility]Auto[facility] MCHC (RBC) [Mass/Vol] 31.3 g/dL Low 31.4 - 36.0 gm/dL [facility] MCV (RBC) [Entitic vol] 69.9 fL Low 80.0 - 100.0 fL [facility] Microcytes Ql (Bld) Present (08/07/22 12:49 PM) Normal [facility] Morphology Cliff (Bld) [...] Present (08/07/22 12:49 PM) Normal [facility]eMan[facility] RBC (Bld) [#/Vol] 3.7 E12/L Low 4.3 - 5.9 E12/L [facility]Auto[facility] WBC corrected for nucl RBC Auto (Bld) [#/Vol] 8.6 E9/L Normal 4.0 - 11.0 E9/L [facility] HemeAutoSS Help Me Grow Referralon 07-0 Help Me Grow Referral [id number] 07 [id number] 2#1.00CD:127 Normal [facility] Insurance Correspondence Off iceon 08-07-2022 Insurance Correspondence Office [id number] 8#1.00CD:127 Normal [facility] Laboratory - Microbiology an d Antimicrobial susceptibilityOrdered By: Maranda Muñoz on 08-07-2022 Bacteria identified Cx Nom (U) 2,000 cfu/ml Mixed skin contaminants [facility] Morphon 08-07-2022 Anisocytosis Ql (Bld) Present Normal [facility] Comment on above: Order Comment: Order Added by Discern Expert. Performed By: #### 2 [id number], [id number] #### [facility] [address] [place] [address] Hypochromia Auto Ql (Bld) Present Normal [facility] Comment on above: Order Comment: Order Added by Discern Expert. Performed By: #### 2 055828, [id number] #### [facility] [address] [place] [address] Microcytes Ql (Bld) Present Normal [facility] Comment on above: Order Comment: Order Added by Discern Expert. Performed By: #### 2 693198, [id number] #### [facility] [address] [place] [address] Morphology Cliff (Bld) [Interp] See Morphology Normal [facility] Comment on above: Order Comment: Order Added by Discern Expert. Performed By: #### 2 106858, [id number] #### [facility] [address] [place] [address] Ovalocytes LM Ql (Bld) Present Normal [facility] Comment on above: Order Comment: Order Added by Discern Expert. Performed By: #### 2 658949, [id number] #### [facility] [address] [place] [address] Platelets Large LM Ql (Bld) Present Normal [facility] Comment on above: Order Comment: Order Added by Discern Expert. Performed By: #### 2 422825, [id number] #### [facility] [address] [place] [address] Polychromasia LM Ql (Bld) Present Normal [facility] Comment on above: Order Comment: Order Added by Discern Expert. Performed By: #### 2 255550, [id number] #### [facility] [address] [place] [address] [employer]son Records [id number] 9#1.00CD:127 Normal [facility] Progress Note-Physicianon Progress Note-Physician Patient: JORDIN TYLER Age: 17 years Sex: Female : 2005 Associated Diagnoses: None Author: Ra Casas Jr., DO Postoperative Information Postoperative disposition: Postoperative disposition: Day 2. Optimetrix number: Optimetrix number [id number]. Anesthetic utilized: Regional: Epidural. Physical Examination Hemodynamically stable. Pain Assessment: Controlled. General: Awake, Alert, Appropriate. Respiratory: Adequate air exchange. Cardiovascular: Stable. Neurological: Normal sensory function. Assessment Anesthetic outcome No post-epidural complications noted.. Review / Management Condition: Stable. Plan Transfer/Discharge: Stable for discharge from anesthetic standpoint.. [facility] Comment on above: Result Comment: Elec [...] Stable for discharge from anesthetic standpoint.. Normal [facility] Comment on above: Result Comment: [...] hyperactivity disorder), combined type / SNOMED CT 64695485 / Confirmed Age mother conceived under 17 / Patient Care / Confirmed / SNOMED CT 465810208 / Confirmed Shortness of breath in pediatric patient / SNOMED CT 794207691 / Confirmed Very young maternal age, antepartum / SNOMED CT 554645195 / Confirmed Resolved: Acute gastroenteritis / SNOMED CT 741485523 resolved per patient Resolved: Acute low back pain due to trauma / SNOMED CT 269880528 resolved per patient Resolved: Blurry vision, left eye / SNOMED CT 871152117 resolved per patient Resolved: Chest pain / SNOMED CT 79159509 resolved per patient Resolved: Inspiratory stridor / SNOMED CT 827398817 Resolved: Post-traumatic stress syndrome / SNOMED CT 12763566 resolved per patient. Resolved: / SNOMED CT 337497593 Resolved: Strep pharyngitis / SNOMED CT 91379682 Resolved: Viral gastroenteritis / SNOMED CT 023010674 Resolved: Vomiting / SNOMED CT 3195522374 Canceled: None / SNOMED CT 367305997 Review of Systems Respiratory: Negative. Cardiovascular: Negative. [...] The PCEA was started at 1706. Normal [facility] Comment on above: Result Comment: Elec tronically Signed By: Ra Casas Jr., DO\.berkley\Date and Time Signed: 08/07/22 17:21 EDT Reference Laboratory Testing Ordered By: Generated DomainUser on 08-07-2022 C. trachomatis rRNA TIM+probe Ql (Unsp spec) Negative Invalid Interpretation Code Negative [facility] SendOutsSS N. gonorrhoeae rRNA TIM+probe Ql (Unsp spec) Negative Invalid Interpretation Code Negative [facility] SendOutsSS Comment on above: Result Comment: Perf ormed at: =G [facility] [address] [place], [place] [id number] MD Rodriguez Briones UA With Cult Reflexon 2022 Type of Urine collection method Catheter Normal [facility] Comment on above: Order Comment: Urina ry Catheter Insertion triggered Urinalysis With Culture Reflex order by discern. Performed By: #### 1 [id number] #### [facility] [address] [place] [address] Bilirubin Ql (U) Negative Normal Negative [facility] Comment on above: Order Comment: Urina ry Catheter Insertion triggered Urinalysis With Culture Reflex order by discern. Performed By: #### 1 [id number] #### [facility] [address] [place] [address] Clarity (U) CLEAR Normal Clear [facility] Comment on above: Order Comment: Urina ry Catheter Insertion triggered Urinalysis With Culture Reflex order by discern. Performed By: #### 1 [id number] #### [facility] [address] [place] [address] Color (U) YELLOW Normal Yellow [facility] Comment on above: Order Comment: Urina ry Catheter Insertion triggered Urinalysis With Culture Reflex order by discern. Performed By: #### 1 1552876 #### [facility] [address] [place] [address] Epithelial cells.squamous LM.HPF (Urine sed) [#/Area] 0-2 Normal 0-2 [facility] Comment on above: Order Comment: Urina ry Catheter Insertion triggered Urinalysis With Culture Reflex order by discern. Performed By: #### 1 4999460 #### [facility] [address] [place] [address] Glucose Test strip (U) [Mass/Vol] Negative Normal Negative [facility] Comment on above: Order Comment: Urina ry Catheter Insertion triggered Urinalysis With Culture Reflex order by discern. Performed By: #### 1 [id number] #### [facility] [address] [place] [address] Hemoglobin Ql (U) 3+ Abnormal Negative [facility] Comment on above: Order Comment: Urina ry Catheter Insertion triggered Urinalysis With Culture Reflex order by discern. Performed By: #### 1 4503299 #### [facility] [address] [place] [address] Ketones (U) [Mass/Vol] Negative Normal Negative [facility] Comment on above: Order Comment: Urina ry Catheter Insertion triggered Urinalysis With Culture Reflex order by discern. Performed By: #### 1 [id number] #### [facility] [address] [place] [address] [place].plasma/[place].R BC (Bld) [Mass ratio] 4-20 Normal 0-3 [facility] Comment on above: Order Comment: Urina ry Catheter Insertion triggered Urinalysis With Culture Reflex order by discern. Performed By: #### 1 [id number] #### [facility] [address] [place] [address] Nitrite Ql (U) Negative Normal Negative [facility] Comment on above: Order Comment: Urina ry Catheter Insertion triggered Urinalysis With Culture Reflex order by discern. Performed By: #### 1 [id number] #### [facility] [address] [place] [address] pH (U) 8.0 [pH] Invalid Interpretation Code 5.0-9.0 [facility] Comment on above: Order Comment: Urina ry Catheter Insertion triggered Urinalysis With Culture Reflex order by discern. Performed By: #### 1 [id number] #### [facility] [address] [place] [address] Protein (U) [Mass/Vol] Negative Normal Negative [facility] Comment on above: Order Comment: Urina ry Catheter Insertion triggered Urinalysis With Culture Reflex order by discern. Performed By: #### 1 [id number] #### [facility] [address] [place] [address] Specific gravity (U) [Rel density] 1.015 Invalid Interpretation Code 1.005-1.030 [facility] Comment on above: Order Comment: Urina ry Catheter Insertion triggered Urinalysis With Culture Reflex order by discern. Performed By: #### 1 7884434 #### [facility] [address] [place] [address] Urobilinogen Qn (U) 0.2 {Karri'U}/dL Normal 0.0-1.0 [facility] Comment on above: Order Comment: Urina ry Catheter Insertion triggered Urinalysis With Culture Reflex order by discern. Performed By: #### 1 [id number] #### [facility] [address] [place] [address] WBC Auto Ql (U) Negative Normal Negative [place] Comment on above: Order Comment: Urina ry Catheter Insertion triggered Urinalysis With Culture Reflex order by discern. Performed By: #### 1 [id number] #### [facility] [address] [place] [address] WBC LM.HPF (Urine sed) [#/Area] 0-5 Normal 0-5 [facility] Comment on above: Order Comment: Urina ry Catheter Insertion triggered Urinalysis With Culture Reflex order by discern. Performed By: #### 1 [id number] #### [facility] [address] [place] [address] Bacteria LM Ql (Urine sed) 1+ /HPF Abnormal Trace [facility] Comment on above: Performed By: #### 1 9215046, 7442872 #### [facility] [address] [place] [address] Bilirubin Ql (U) Negative Normal Negative [facility] Comment on above: Performed By: #### 1 9947393, [id number] #### [facility] [address] [place] [address] Clarity (U) CLEAR Normal Clear [facility] Comment on above: Performed By: #### 1 2817003, [id number] #### [facility] [address] [place] [address] Color (U) YELLOW Normal Yellow [facility] Comment on above: Performed By: #### 1 5265584, [id number] #### [facility] [address] [place] [address] Crystals LM Ql (Urine sed) Present Normal [facility] Comment on above: Performed By: #### 1 3230398, [id number] #### [facility] [address] [place] [address] Epithelial cells.squamous LM.HPF (Urine sed) [#/Area] 9-10 Normal 0-2 [facility] Comment on above: Performed By: #### 1 3731990, 7466703 #### [facility] [address] [place] [address] Glucose Test strip (U) [Mass/Vol] Negative Normal Negative [facility] Comment on above: Performed By: #### 1 1946593, 1748717 #### [facility] [address] [place] [address] Hemoglobin Ql (U) Negative Normal Negative [facility] Comment on above: Performed By: #### 1 3958524, 3354385 #### [facility] [address] [place] [address] Ketones (U) [Mass/Vol] Negative Normal Negative [facility] Comment on above: Performed By: #### 1 0529288, 9927058 #### [facility] [address] [place] [address] [place].plasma/[place].R BC (Bld) [Mass ratio] 0-3 Normal 0-3 [facility] Comment on above: Performed By: #### 1 0407287, 2264295 #### [facility] [address] [place] [address] Mucus Ql (Urine sed) 1+ Normal [facility] Comment on above: Performed By: #### 1 9231631, 2266979 #### [facility] [address] [place] [address] Nitrite Ql (U) Negative Normal Negative [facility] Comment on above: Performed By: #### 1 2714136, [id number] #### [facility] [address] [place] [address] pH (U) 7.0 [pH] Invalid Interpretation Code 5.0-9.0 [facility] Comment on above: Performed By: #### 1 8957009, 2669156 #### [facility] [address] [place] [address] Protein (U) [Mass/Vol] TRACE Abnormal Negative [facility] Comment on above: Performed By: #### 1 0619691, 2632530 #### [facility] [address] [place] [address] Specific gravity (U) [Rel density] 1.020 Invalid Interpretation Code 1.005-1.030 [facility] Comment on above: Performed By: #### 1 7776971, 3310955 #### [facility] [address] [place] [address] Type of Urine collection method Clean Catch Normal [facility] Comment on above: Performed By: #### 1 7255166, [id number] #### [facility] [address] [place] [address] Urobilinogen Qn (U) 2.0 {Karri'U}/dL Abnormal 0.0-1.0 [facility] Comment on above: Performed By: #### 1 5532083, 4432650 #### [facility] [address] [place] [address] WBC Auto Ql (U) 1+ Abnormal Negative [place] Comment on above: Performed By: #### 1 3504430, 3754309 #### [facility] [address] [place], [place] [address] WBC LM.HPF (Urine sed) [#/Area] 6-15 Abnormal 0-5 [facility] Comment on above: Performed By: #### 1 3591835, 3308842 #### [facility] [address] [place], [place] [id number] URINALYSISOrdered By: Anne-Marie Leonard on 08-07-2022 Bilirubin Ql (U) Negative (08/07/22 5:42 PM) Normal Negative [facility] UA Auto SS Clarity (U) Clear (08/07/22 5:42 PM) Normal Clear [facility] UA Auto SS Color (U) Yellow (08/07/22 5:42 PM) Normal Yellow [facility] UA Auto SS [...] PM) Normal Negative [facility] UA Auto SS [place].plasma/[place].R BC (Bld) [Mass ratio] 4-20 /HPF Normal [...] [facility] UA Auto SS Urobilinogen Qn (U) 0.8078604 {Karri'U}/dL Normal 0.0 - 1.0 EU/dL [facility] [...] AM) Normal Negative [facility] UA Auto SS [place].plasma/[place].R BC (Bld) [Mass ratio] 0-3 /HPF Normal [...] [facility] UA Auto SS Urobilinogen Qn (U) 2.5995274 {Karri'U}/dL Invalid Interpretation Code 0.0 - 1.0 EU/dL [facility] UA Auto SS WBC Auto Ql (U) 1+ *ABN* (08/07/22 6:30 AM) Invalid Interpretation Code Negative [facility] UA Auto SS WBC LM.HPF (Urine sed) [#/Area] 6-15 /HPF Invalid Interpretation Code 0-5/HPF [facility] UA Auto SS Consent for Treatmenton 07-08 Consent for Treatment [id number] 5#1.00CD:127 Normal [facility] Consent for Treatment [id number] #1.00CD:127 Normal [facility] Discharge Instructionson Discharge Instructions [id number]# 1.00CD:127 Normal [facility] Inpatient Clinical Summaryon 08-04-2022 Inpatient Clinical Summary [place] [address] Clinical Summary Person Information Name: JORDIN TYLER [place] Age: 17 Years : 2005 Sex: Female PCP: NONE, XXXX Marital Status: Single Phone: [phone] Race: White Ethnicity: Non- or Language: Sudanese Visit Id: Visit Reason: ABD PAIN AND PRESSURE Speciality: Acuity: Enc Type: OB Triage Med Service: Obstetrics Arrival: 08/04/2022 10:49:09 Discharge: 08/04/2022 13:15:00 Dispo Type: Home (Routine DC) Address: [address] [place] [id number] Provider Notes: Diagnosis: Problems Active Very young [...] or vaginal bleeding Patient Education Information: Normal [facility] Inpatient Patient Summaryon 08-04-2022 Inpatient Patient Summary [place] [id number] Patient Discharge Instructions PERSON INFORMATION Name: JORDIN [...] to serve you. Thank you for choosing [facility] Normal [facility] Insurance Correspondenceon 0 08-04-2022 Insurance Correspondence [id number]# 1.00CD:127 Normal [facility] UA With Cult Reflexon 2022 Bacteria LM Ql (Urine sed) TRACE Normal Trace [facility] Comment on above: Performed By: #### 1 [id number] #### [facility] [address] [place] [address] Bilirubin Ql (U) Negative Normal Negative [facility] Comment on above: Performed By: #### 1 [id number] #### [facility] [address] [place] [address] Clarity (U) SL CLOUDY Abnormal Clear [facility] Comment on above: Performed By: #### 1 [id number] #### [facility] [address] [place] [address] Color (U) YELLOW Normal Yellow [facility] Comment on above: Performed By: #### 1 [id number] #### [facility] [address] [place] [address] Epithelial cells.squamous LM.HPF (Urine sed) [#/Area] /[HPF] Normal 0-2 [facility] Comment on above: Performed By: #### 1 [id number] #### [facility] [address] [place] [address] Glucose Test strip (U) [Mass/Vol] Negative Normal Negative [facility] Comment on above: Performed By: #### 1 [id number] #### [facility] [address] [place] [address] Hemoglobin Ql (U) Negative Normal Negative [facility] Comment on above: Performed By: #### 1 [id number] #### [facility] [address] [place] [address] Ketones (U) [Mass/Vol] Negative Normal Negative [facility] Comment on above: Performed By: #### 1 [id number] #### [facility] [address] [place] [address] [place].plasma/[place].R BC (Bld) [Mass ratio] 0-3 Normal 0-3 [facility] Comment on above: Performed By: #### 1 [id number] #### [facility] [address] [place] [address] Nitrite Ql (U) Negative Normal Negative [facility] Comment on above: Performed By: #### 1 [id number] #### [facility] [address] [place] [address] pH (U) 7.5 [pH] Invalid Interpretation Code 5.0-9.0 [facility] Comment on above: Performed By: #### 1 [id number] #### [facility] [address] [place] [address] Protein (U) [Mass/Vol] Negative Normal Negative [facility] Comment on above: Performed By: #### 1 42584995 #### [facility] [address] [place] [address] Specific gravity (U) [Rel density] 1.015 Invalid Interpretation Code 1.005-1.030 [facility] Comment on above: Performed By: #### 1 [id number] #### [facility] [address] [place] [address] Type of Urine collection method Clean Catch Normal [facility] Comment on above: Performed By: #### 1 [id number] #### [facility] [address] [place] [address] Urobilinogen Qn (U) 0.2 {Karri'U}/dL Normal 0.0-1.0 [facility] Comment on above: Performed By: #### 1 [id number] #### [facility] [address] [place] [address] WBC Auto Ql (U) TRACE Abnormal Negative [place] Comment on above: Performed By: #### 1 [id number] #### [facility] [address] [place] [address] WBC LM.HPF (Urine sed) [#/Area] 0-5 Normal 0-5 [facility] Comment on above: Performed By: #### 1 [id number] #### [facility] [address] [place] [address] URINALYSISOrdered By: Heidi Barnes on 08-04-2022 Bacteria [...] AM) Normal Negative [facility] UA Auto SS [place].plasma/[place].R BC (Bld) [Mass ratio] 0-3 /HPF Normal 0-3/HPF [facility] Au to SS Nitrite Ql (U) [...] [facility] UA Auto SS Urobilinogen Qn (U) 0.3509870 {Karri'U}/dL Normal 0.0 - 1.0 EU/dL [facility] [...] rate/Area] mL/min/1.73 m2 Normal >=59mL/min/1 .73 m2 FT Chem S GFR/1.73 sq M.predicted among non-blacks MDRD (S/P/Bld) [Vol rate/Area] mL/min/1.73 m2 Normal >=59mL/min/1 .73 m2 [facility] Chem S Glucose [Mass/Vol] 94 mg/dL Normal 55 - 199 mg/dL FT Remisol Potassium [Moles/Vol] 3.7 mmol/L Normal 3.5 - 5.3 mmol/L [facility] Remisol Sodium [Moles/Vol] 135 mmol/L Normal 135 - 145 mmol/L [facility] Remisol Urea nitrogen [Mass/Vol] 7 mg/dL Normal 5 - 21 mg/d L [facility] Remisol Urea nitrogen/Creatinine [Mass ratio] 12 mg/mg Normal 10 - 20 [facility] CHEMISTRYOrdered By: Austin garcia on 01-18-2022 HCG.beta subunit Qn 422442 m[IU]/mL High 1 - 3 mIU/m L [facility] Chem S MICRO OTHER TESTSOrdered By: Austin Cabrera on 01-18-2022 Rapid COV Int NEG Ctl Pass (01/18/22 1:19 AM) Normal [facility] Sero Rapid COV Int POS Ctl Pass (01/18/22 1:19 AM) Normal [facility] SARS-CoV+SARS-CoV-2 (COVID-19) Ag IA.rapid Ql (Resp) Not Detected (01/18/22 1:19 AM) Normal Not Detected [facility] URINALYSISOrdered By: Austin Cabrera on [...] Interpretation Code Negative [facility] UA Auto SS [place].plasma/[place].R BC (Bld) [Mass ratio] 0-3 /HPF Normal [...] [facility] UA Auto SS Urobilinogen Qn (U) 0.0935235 {Karri'U}/dL Normal 0.0 - 1.0 EU/dL [facility] [...] mmol/L Normal 6 - 16 mEq/L F [facility] Remisol AST [Catalytic activity/Vol] 36 [iU]/d Normal [...] Normal 0.5 - 1.3 mg/dL [facility] Globulin (S) [Mass/Vol] 3.4 g/dL Normal 1.4 - 4.0 gm/dL [facility] Glucose [Mass/Vol] 90 mg/dL Normal 55 - 199 mg/dL [facility] Lipase [Catalytic activity/Vol] 24 U/L Normal [...] 0.7 % Normal 0.0 - 2.0 % FT [...] (U) [Moles/Vol] Positive (01/05/22 7:59 AM) Normal [facility] URINALYSISOrdered By: Brandie Garcia on [...] Interpretation Code Negative [facility] UA Auto SS [place].plasma/[place].R BC (Bld) [Mass ratio] 0-3 /HPF Normal [...] [facility] UA Auto SS Urobilinogen Qn (U) 1.5383779 {Karri'U}/dL Normal 0.0 - 1.0 EU/dL [facility] [...] Present (01/02/22 1:09 PM) Normal FT HemeManSS Erythrocyte distribution width (RBC) [Ratio] 16.1 % High 10.9 - 14.2 % [facility] Hematocrit (Bld) [Volume fraction] 31.1 % Low 34.0 - 46.0 % [facility] Hemoglobin (Bld) [Mass/Vol] 10.8 g/dL Low 12.0 - 16.0 gm/dL [facility] Hypochromia Auto Ql (Bld) Present (01/02/22 1:09 PM) Normal [facility] MCH (RBC) [Entitic mass] 24.5 pg Low 27. 0 - 34.0 pg [facility] MCHC (RBC) [Mass/Vol] 34.6 g/dL Normal 31.4 - 36.0 gm/dL [facility] MCV (RBC) [Entitic vol] 70.6 fL Low 80.0 - 100.0 fL [facility] Microcytes Ql (Bld) Present (01/02/22 1:09 PM) Normal [facility] HemeManSS Morphology Cliff (Bld) [Interp] See Morphology (01/02/22 1:09 PM) Normal FT [facility] Platelet mean volume (Bld) [Entitic vol] 7.7 fL Normal 6.4 - 10.8 fL [facility] Platelets (Bld) [#/Vol] 301.0 E9/L Normal 150. 0 - 500.0 E9/L [facility] RBC (Bld) [#/Vol] 4.4 E12/L Normal 4.3 - 5.9 E12/L [facility] WBC corrected for nucl RBC Auto (Bld) [#/Vol] 6.2 E9/L Normal 4.0 - 11.0 E9/L FT [facility] HEMATOLOGYOrdered By: SYSTEM SYSTEM on 01-02-2022 Basophils/100 WBC (Bld) 1.3 % Normal 0.0 - 2.0 % FT [...] Interpretation Code Negative [facility] UA Auto SS [place].plasma/[place].R BC (Bld) [Mass ratio] 0-3 /HPF Normal [...] [facility] UA Auto SS Urobilinogen Qn (U) 0.4630471 {Karri'U}/dL Normal 0.0 - 1.0 EU/dL [facility] [...] 12.5 E9/L High 4.0 - 10.5 E9/L [facility] BLOOD BANKOrdered By: Jazzmine Jarquin on 06-07-2021 ABO/Rh Interp Positive Invalid Interpretation Code [facility] BB Subsection ABSC Gel Interp Negative (06/07/21 7:46 AM) Normal [facility] BB Subsection HEMATOLOGYOrdered By: Brandie Garcia on 06-07-2021 Erythrocyte distribution width (RBC) [Ratio] 14.4 % High 11.5 - 14.0 % [facility] Hematocrit (Bld) [Volume fraction] 29.0 % Low 36.0 - 47.0 % [facility] Hemoglobin (Bld) [Mass/Vol] 9.6 g/dL Low 12.0 - 15.0 gm/dL [facility] MCH (RBC) [Entitic mass] 26.0 pg Normal 26. 0 - 32.0 pg [facility] MCHC (RBC) [Mass/Vol] 33.2 g/dL Normal 32.0 - 36.0 gm/dL [facility] MCV (RBC) [Entitic vol] 78.4 fL Normal 78.0 - 95.0 fL [facility] Platelet mean volume (Bld) [Entitic vol] 9.4 fL Normal 6.0 - 9.5 fL [facility] HemeAutoSS Platelets (Bld) [#/Vol] 285.0 E9/L Normal 150. 0 - 450.0 E9/L [facility] HemeAutoSS RBC (Bld) [#/Vol] 3.7 E12/L Low 4.1 - 5.3 E12/L [facility] HemeAutoSS WBC corrected for nucl [...] AM) Normal Negative [facility] UA Auto SS [place].plasma/[place].R BC (Bld) [Mass ratio] 0-3 /HPF Normal [...] [facility] UA Auto SS Urobilinogen Qn (U) [id number] {Karri'U}/dL Normal 0.0 - 1.0 EU/dL [facility] UA Auto SS WBC Auto Ql (U) Negative (06/07/21 10:15 AM) Normal Negative [facility] UA Auto SS WBC LM.HPF (Urine sed) [#/Area] 0-5 /HPF Normal 0-5/HPF [facility] UA Auto SS CHLAMYDIA/GONOCOCCUS TIM (SW AB/URINE/PAPon 11-04-2020 Chlamydia trachomatis, TIM CRAVEN Normal [facility] Comment on above: Result Comment: Test Not Performed. The transport device submitted contained a cleaning swab. On future collections the cleaning swab should be discarded after use; then the specimen should be collected using the smaller collection swab. contacted Dior at your facility on 11-04-2020 Performed at: =G Performed By: #### C T/NGNA #### [facility] [address] [place] [address] Dr. Maynor Bojorquez Neisseria gonorrhoeae, TIM TNP Normal [facility] Comment on above: Result Comment: Test not performed Performed at: =G Performed By: #### C T/NGNA #### [facility] [address] [place] [address] Dr. Maynor Bojorquez PDF Normal [facility] Comment on above: Result Comment: Perf ormed at: CB Performed By: #### C T/NGNA #### [facility] [address] [place] [address] Dr. Maynor Bojorquez ABO AND RH TYPEon 11-01-2020 ABO and Rh group Nom (Bld) ABO Rh Typing A Rh Positive [facility] Comment on above: Performed By: #### A HELADIO #### [facility] [address] [place] [address] Dr. Maynor Bojorquez CBC AUTO DIFFon 11-01-2020 BASO # 0.0 103/ul Normal 0.0-0.1 [facility] Comment on above: Performed By: #### C BC #### [facility] [address] [place] [address] Dr. Maynor Bojorquez Basophils/100 WBC (Bld) 0.4 % Normal 0.2-2.0 [facility] Comment on above: Performed By: #### C BC #### [facility] [address] [place] [address] Dr. Maynor Bojorquez EO # 0.1 103/ul Normal 0.0-0.7 [facility] Comment on above: Performed By: #### C BC #### [facility] [address] [place] [address] Dr. Maynor Bojorquez Eosinophils/100 WBC (Bld) 0.8 % Critically low 0.9-7.0 [facility] Comment on above: Performed By: #### C BC #### [facility] [address] [place] [address] Dr. Maynor Bojorquez Erythrocyte distribution width (RBC) [Ratio] 13.0 % Normal 11.0-15.0 [facility] Comment on above: Performed By: #### C BC #### [facility] [address] [place] [address] Dr. Maynor Bojorquez Hematocrit (Bld) [Volume fraction] 37.4 % Normal 36.0-48.0 [facility] Comment on above: Performed By: #### C BC #### [facility] [address] [place] [address] Dr. Maynor Bojorquez Hemoglobin (Bld) [Mass/Vol] 13.0 g/dL Normal 12.0-16.0 [facility] Comment on above: Performed By: #### C BC #### [facility] [address] [place] [address] Dr. Maynor Bojorquez IG # 0.03 10e3/ul Normal 0.00-0.03 [facility] Comment on above: Performed By: #### C BC #### [facility] [address] [place] [address] Dr. Maynor Bojorquez IG % 0.4 % Normal 0.0-0.5 [facility] Comment on above: Performed By: #### C BC #### [facility] [address] [place] [address] Dr. Maynor Bojorquez LYMPH # 1.7 103/ul Normal 1.2-3.8 [facility] Comment on above: Performed By: #### C BC #### [facility] [address] [place] [address] Dr. Maynor Bojorquez Lymphocytes/100 WBC (Bld) 22.7 % Normal 20.5-60.0 [facility] Comment on above: Performed By: #### C BC #### [facility] [address] [place] [address] Dr. Maynor Bojorquez MANUAL DIFF REQ NO Normal [facility] Comment on above: Performed By: #### C BC #### [facility] [address] [place] [address] Dr. Maynor Bojorquez MCH (RBC) [Entitic mass] 29.1 pg Normal 26.7-34.0 [facility] Comment on above: Performed By: #### C BC #### [facility] [address] [place] [address] Dr. Maynor Bojorquez MCHC (RBC) [Mass/Vol] 34.8 g/dL Normal 29.9-35.2 [facility] Comment on above: Performed By: #### C BC #### [facility] [address] [place] [address] Dr. Maynor Bojorquez MCV (RBC) [Entitic vol] 83.9 fL Normal 79.1-95.6 [facility] Comment on above: Performed By: #### C BC #### [facility] [address] [place] [address] Dr. Maynor Bojorquez MONO # 0.7 103/ul Normal 0.3-0.8 [facility] Comment on above: Performed By: #### C BC #### [facility] [address] [place] [address] Dr. Maynor Bojorquez Monocytes/100 WBC (Bld) 9.5 % Normal 1.7-12.0 [facility] Comment on above: Performed By: #### C BC #### [facility] [address] [place] [address] Dr. Maynor Bojorquez NEUT # 5.0 103/ul Normal 1.4-6.5 [facility] Comment on above: Performed By: #### C BC #### [facility] [address] [place] [address] Dr. Maynor Bojorquez Neutrophils/100 WBC (Bld) 66.2 % Normal 43.0-75.0 [facility] Comment on above: Performed By: #### C BC #### [facility] [address] [place] [address] Dr. Maynor Bojorquez Platelet mean volume (Bld) [Entitic vol] 10.0 fL Normal 9.5-13.5 [facility] Comment on above: Performed By: #### C BC #### [facility] [address] [place] [address] Dr. Maynor Bojorquez PLT 252 103/ul Normal 150-450 [facility] Comment on above: Performed By: #### C BC #### [facility] [address] [place] [address] Dr. Maynor Bojorquez RBC 4.46 106/ul Normal 3.40-5.30 [facility] Comment on above: Performed By: #### C BC #### [facility] [address] [place] [address] Dr. Maynor Bojorquez WBC 7.6 103/ul Normal 4.0-11.0 [facility] Comment on above: Performed By: #### C BC #### [facility] [address] [place] [address] Dr. Maynor Bojorquez ER URINE PROFILEon 1 Bilirubin Ql (U) SMALL Abnormal NEGATIVE [facility] Comment on above: Performed By: #### E RUR #### [facility] [address] [place] [address] Dr. Maynor Bojorquez Clarity (U) CLEAR Normal CLEAR [facility] Comment on above: Performed By: #### E RUR #### [facility] [address] [place] [address] Dr. Maynor Bojorquez Color (U) YELLOW Normal YELLOW [facility] Comment on above: Performed By: #### E RUR #### [facility] [address] [place] [address] Dr. Maynor ARANDAMalina A micrscopic examination will be performed if indicated. Normal [facility] Comment on above: Performed By: #### E RUR #### [facility] [address] [place] [address] Dr. Maynor Bojorquez Glucose Ql (U) Negative Normal NEGATIVE [facility] Comment on above: Performed By: #### E RUR #### [facility] [address] [place] [address] Dr. Maynor Bojorquez Hemoglobin Ql (U) Negative Normal NEGATIVE [facility] Comment on above: Performed By: #### E RUR #### [facility] [address] [place] [address] Dr. Maynor Bojorquez Ketones Ql (U) >=80 Abnormal NEGATIVE [facility] Comment on above: Performed By: #### E RUR #### [facility] [address] [place] [address] Dr. Maynor Bojorquez LEUKOCYTES Negative Normal NEGATIVE [facility] Comment on above: Performed By: #### E RUR #### [facility] [address] [place] [address] Dr. Maynor Bojorquez Nitrite Ql (U) Negative Normal NEGATIVE [facility] Comment on above: Performed By: #### E RUR #### [facility] [address] [place] [address] Dr. Maynor Bojorquez pH (U) 6.0 [pH] Normal 5-9 [facility] Comment on above: Performed By: #### E RUR #### [facility] [address] [place] [address] Dr. Maynor Bojorquez SPEC GRAVITY >=1.030 Abnormal 1.005-<=1.02 5 [facility] Comment on above: Performed By: #### E RUR #### [facility] [address] [place] [address] Dr. Maynor Bojorquez UA PROTEIN TRACE Normal NEGATIVE/ TRACE [facility] Comment on above: Performed By: #### E RUR #### [facility] [address] [place] [address] Dr. Maynor Bojorquez UR MICRO IND NOT INDICATED Normal [facility] Comment on above: Performed By: #### E RUR #### [facility] [address] [place] [address] Dr. Maynor Bojorquez Urobilinogen Qn (U) 1.0 {Karri'U}/dL Normal 0.2 - 1. 0 [facility] Comment on above: Performed By: #### E RUR #### [facility] [address] [place] [address] Dr. Maynor Bojorquez PREG QUANT HCGon 11-01-2020 HCG QUANT [id number] mIU/mL Normal [facility] Comment on above: Performed By: #### P REGQNT #### [facility] [address] [place] [address] Dr. Maynor Bojorquez HCG RANGE SEE BELOW Normal [facility] Comment on above: Result Comment: 5-50 0-1 WEEK 40-300 1-2 WEEKS 100-1,000 2-3 WEEKS 500-6,000 3-4 WEEKS 5,000-200,000 1-2 MONTHS 10,000-100,000 2-3 MONTHS 3,000-50,000 2ND TRIMESTER 1,000-50,000 3RD TRIMESTER Performed By: #### P REGQNT #### [facility] [address] [place] [address] Dr. Maynor Bojorquez PROF CHEM 8 (BAS METB)on Anion gap [Moles/Vol] 13.6 mmol/L Normal [facility] Comment on above: Performed By: #### B MP #### [facility] [address] [place] [address] Dr. Maynor Bojorquez Calcium [Mass/Vol] 9.0 mg/dL Normal 8.4-10.2 [facility] Comment on above: Performed By: #### B MP #### [facility] [address] [place] [address] Dr. Maynor Bojorquez Chloride [Moles/Vol] 102 mmol/L Normal 98-107 [facility] Comment on above: Performed By: #### B MP #### [facility] [address] [place] [address] Dr. Maynor Bojorquez CO2 [Moles/Vol] 24.3 mmol/L Normal 22.0-30.0 [facility] Comment on above: Performed By: #### B MP #### [facility] [address] [place] [address] Dr. Maynor Bojorquez Creatinine [Mass/Vol] 0.63 mg/dL Normal 0.52-1.04 [facility] Comment on above: Performed By: #### B MP #### [facility] [address] [place] [address] Dr. Maynor Bojorquez Glucose [Mass/Vol] 73 mg/dL Critically low 74-106 [facility] Comment on above: Performed By: #### B MP #### [facility] [address], [place] [address] Dr. Maynor Bojorquez Potassium [Moles/Vol] 3.9 mmol/L Normal 3.4-5.0 [facility] Comment on above: Performed By: #### B MP #### [facility] [address], [place] [address] Dr. Maynor Bojorquez Sodium [Moles/Vol] 136 mmol/L Critically low 137-145 [facility] Comment on above: Performed By: #### B MP #### [facility] [address], [place] [address] Dr. Maynor Bojorquez Urea nitrogen [Mass/Vol] 8.0 mg/dL Normal 6.4-19.3 [facility] Comment on above: Performed By: #### B MP #### [facility] [address], [place] [address] Dr. Maynor Bojorquez Urea nitrogen/Creatinine [Mass ratio] 12.7 mg/mg Normal [facility] Comment on above: Performed By: #### B MP #### [facility] [address], [place] [address] Dr. Maynor Bojorquez US PREG TVon 11-01-2020 [...] Date: 2020-11-01 18:11 Normal [facility] WET PREPon 11-01-2020 CLUE CELLS NONE SEEN Normal NONE SEEN [facility] Comment on above: Performed By: #### W P #### [facility] [address] [place] [address] Dr. Maynor Bojorquez FUNGAL ELEMENTS NONE SEEN Normal NONE SEEN [facility] Comment on above: Performed By: #### W P #### [facility] [address] [place] [address] Dr. Maynor Bojorquez RBC -WET PREP RARE Abnormal NONE SEEN [facility] Comment on above: Performed By: #### W P #### [facility] [address] [place] [address] Dr. Maynor Bojorquez TRICHOMONAS NONE SEEN Normal NONE SEEN [facility] Comment on above: Performed By: #### W P #### [facility] [address] [place] [address] Dr. Maynor Bojorquez WBC- WET PREP MODERATE Abnormal NONE SEEN [facility] Comment on above: Performed By: #### W P #### [facility] [address] [place] [address] Dr. Maynor Bojorquez WET PREP BACTERIA FEW Abnormal NONE SEEN [facility] Comment on above: Performed By: #### W P #### [facility] [address] [place] [address] Dr. Maynor Bojorquez Vital Signs Date Time Vital Sign Value Performing Clinician Facility 08-19-2024 13:51-0400 Body mass index (BMI) [Ratio] 30.38 kg/m2 [facility] Steve DO Work Phone: [facility] 08-19-2024 13:51-0400 Body weight 80.29 kg Jerry Steve DO Work Phone: [facility] 08-19-2024 13:51-0400 Diastolic blood pressure 60 mm[Hg] Jerry Steve DO Work Phone: [facility] 08-19-2024 13:51-0400 Systolic blood pressure 120 mm[Hg] Jerry Steve DO Work Phone: [facility] 08-05-2024 10:02-0400 Body mass index (BMI) [Ratio] 29.03 kg/m2 Holli TOUSSAINT Work Phone: [facility] 08-05-2024 10:02-0400 Body weight 76.72 kg Holli TOUSSAINT Work Phone: [facility] 08-05-2024 10:02-0400 Diastolic blood pressure 50 mm[Hg] Holli Jude PA Work Phone: [facility] 08-05-2024 10:02-0400 Systolic blood pressure 102 mm[Hg] Holli Jude PA Work Phone: [facility] 07-22-2024 13:29-0400 Body mass index (BMI) [Ratio] 28.28 kg/m2 Jerry Steve DO Work Phone: [facility] 07-22-2024 13:29-0400 Body weight 74.73 kg Jerry Steve DO Work Phone: [facility] 07-22-2024 13:29-0400 Diastolic blood pressure 66 mm[Hg] Jerry Steve DO Work Phone: [facility] 07-22-2024 13:29-0400 Systolic blood pressure 122 mm[Hg] Jerry Steve DO Work Phone: [facility] 06-24-2024 13:50-0400 Body mass index (BMI) [Ratio] 27.7 kg/m2 Jerry Steve DO Work Phone: [facility] 06-24-2024 13:50-0400 Body weight 73.21 kg Jerry Steve DO Work Phone: [facility] 06-24-2024 13:50-0400 Diastolic blood pressure 58 mm[Hg] Jerry Steve DO Work Phone: [facility] 06-24-2024 13:50-0400 Systolic blood pressure 100 mm[Hg] Jerry Steve DO Work Phone: [facility] 06-19-2024 15:01-0400 Blood Pressure Location Eduardo WRAY [...] 27.77 kg/m2 Jerry Steve DO Work Phone: [facility] 06-09-2024 11:31-0400 Body weight 73.39 kg Jerry Steve DO Work Phone: [facility] 06-09-2024 11:31-0400 Diastolic blood pressure 70 mm[Hg] Jerry Steve DO Work Phone: [facility] 06-09-2024 11:31-0400 Systolic blood pressure 114 mm[Hg] Jerry Steve DO Work Phone: [facility] 05-22-2024 11:28-0400 Body mass index (BMI) [Ratio] 26.95 kg/m2 Jerry Steve DO Work Phone: [facility] 05-22-2024 11:28-0400 Body weight 71.22 kg Jerry Steve DO Work Phone: [facility] 05-22-2024 11:28-0400 Diastolic blood pressure 72 mm[Hg] Jerry Steve DO Work Phone: [facility] 05-22-2024 11:28-0400 Systolic blood pressure 118 mm[Hg] Jerry Steve DO Work Phone: [facility] 05-09-2024 10:52-0400 Body mass index (BMI) [Ratio] 26.85 kg/m2 [facility] Nurse [facility] 05-09-2024 10:52-0400 Body weight 70.94 kg [facility] Nurse [facility] 05-09-2024 10:52-0400 Diastolic blood pressure 72 mm[Hg] [facility] Nurse [facility] 05-09-2024 10:52-0400 Systolic blood pressure 112 mm[Hg] [facility] Nurse [facility] 04-01-2024 14:35-0500 Body height 162.56 cm John Paul Lovell MD Work Phone: [facility] 04-01-2024 14:35-0500 Body mass index (BMI) [Ratio] 26.3 kg/m2 John Pual Lovell MD Work Phone: [facility] 04-01-2024 14:35-0500 Body temperature 97.9 [degF] John Paul Lovell MD Work Phone: [facility] 04-01-2024 14:35-0500 Body weight 69.51 kg John Paul Lovell MD Work Phone: [facility] 04-01-2024 14:35-0500 Diastolic blood pressure 61 mm[Hg] John Paul Lovell MD Work Phone: [facility] 04-01-2024 14:35-0500 Heart rate 75 /min John Paul Lovell MD Work Phone: [facility] 04-01-2024 14:35-0500 Respiratory rate 18 /min John Paul Lovell MD Work Phone: [facility] 04-01-2024 14:35-0500 SaO2% (BldA) [Mass fraction] 99 % John Paul Lovell MD Work Phone: [facility] 04-01-2024 14:35-0500 Systolic blood pressure 98 mm[Hg] John Paul Lovell MD Work Phone: [facility] 10-16-2023 14:13-0400 Body height 162.6 cm Mak Jordan LOAN ANALYST Work Phone: [facility] 10-16-2023 14:13-0400 Body mass index (BMI) [Ratio] 28.67 kg/m2 Mka Jordan LOAN ANALYST Work Phone: [facility] 10-16-2023 14:13-0400 Body temperature 98.2 [degF] Mak Jordan LOAN ANALYST Work Phone: [facility] 10-16-2023 14:13-0400 Body weight 75.75 kg Mak Jordan LOAN ANALYST Work Phone: [facility] 10-16-2023 14:13-0400 Diastolic blood pressure 78 mm[Hg] Mak Jordan LOAN ANALYST Work Phone: [facility] 10-16-2023 14:13-0400 Heart rate 74 /min Mak Jordan LOAN ANALYST Work Phone: [facility] 10-16-2023 14:13-0400 SaO2% (BldA) [Mass fraction] 98 % Mak Jordan LOAN ANALYST Work Phone: [facility] 10-16-2023 14:13-0400 Systolic blood pressure 124 mm[Hg] Mak Jordan ANDREA Work Phone: [facility] 09-12-2023 17:31-0400 [facility] Comment on above: Result Comment: waiting for ride to come 09-12-2023 16:32-0400 [employer] [facility] Comment on above: Result Comment: discharge instructions sheyla newman with verbal understanding. 09-12-2023 15:26-0400 [employer] [facility] 09-12-2023 08:52-0400 Diastolic blood pressure 51 mm[Hg] [facility] 09-12-2023 08:52-0400 Heart rate 68 /min [facility] 09-12-2023 08:52-0400 Mean blood pressure 67 mm[Hg] [facility] 09-12-2023 08:52-0400 Systolic blood pressure 100 mm[Hg] [facility] 09-12-2023 08:52-0400 Mean blood pressure 67 mm[Hg] [facility] 09-12-2023 08:52-0400 Respiratory rate 18 /min [facility] 09-11-2023 23:45-0400 Diastolic blood pressure 78 mm[Hg] [facility] 09-11-2023 23:45-0400 Heart rate 65 /min [facility] 09-11-2023 23:45-0400 Mean blood pressure 97 mm[Hg] [facility] 09-11-2023 23:45-0400 Systolic blood pressure 136 mm[Hg] [facility] 09-11-2023 23:45-0400 Blood Pressure Location [facility] 09-11-2023 23:45-0400 Mean blood pressure 97 mm[Hg] [facility] 09-11-2023 23:45-0400 Respiratory rate 22 /min [facility] 09-11-2023 21:03-0400 Heart rate 75 /min [facility] 09-11-2023 21:03-0400 SaO2% (BldA) [Mass fraction] 98 % [facility] 09-11-2023 21:02-0400 Diastolic blood pressure 73 mm[Hg] [facility] 09-11-2023 21:02-0400 Mean blood pressure 91 mm[Hg] [facility] 09-11-2023 21:02-0400 Systolic blood pressure 127 mm[Hg] [facility] 09-11-2023 21:00-0400 Body temperature 98.42 [degF] [facility] 09-11-2023 21:00-0400 Respiratory rate 18 /min [facility] 09-11-2023 16:00-0400 Mean blood pressure 80 mm[Hg] [facility] 09-11-2023 06:15-0400 Blood Pressure Location [facility] 09-11-2023 06:00-0400 Body temperature 98.24 [degF] [facility] 09-11-2023 04:45-0400 SaO2% (BldA) [Mass fraction] 97 % [facility] 09-11-2023 03:00-0400 Body temperature 97.88 [degF] [facility] 09-10-2023 21:38-0400 bodymassindex 1.6 kg/m2 [facility] Comment on above: Result Comment: ^~:![facility]Score [facility] 09-10-2023 21:38-0400 Height/Length Percentile 60.85 1 [facility] Comment on above: Result Comment: ^~:!Percentile Source [facility] 09-10-2023 21:38-0400 Height/Length Z-Score 0.28 1 Mag[facility] Comment on above: Result Comment: ^~:![facility]Score [facility] 09-10-2023 21:38-0400 Weight Percentile 95.70 % [facility]galis [facility] Comment on above: Result Comment: ^~:!Percentile Source [facility] 09-10-2023 21:38-0400 Weight Z-Score 1.72 1 [facility] Comment on above: Result Comment: ^~:![facility] 08-29-2023 16:25-0400 [facility] Round[facility] Comment on above: Result Comment: discharge instructions sheyla newman, questions answered and papers signed 08-29-2023 15:06-0400 bodymassindex 1.44 kg/m2 [facility] Comment on above: Result Comment: ^~:![facility] 08-29-2023 15:06-0400 Height/Length Percentile 60.30 1 [facility] Comment on above: Result Comment: ^~:!Percentile Source [facility] 08-29-2023 15:06-0400 Height/Length Z-Score 0.26 1 [facility] Comment on above: Result Comment: ^~:![facility] 08-29-2023 15:06-0400 Weight Percentile 93.68 % [facility] Comment on above: Result Comment: ^~:!Percentile Source [facility] 08-29-2023 15:06-0400 Weight Z-Score 1.53 1 [facility] Comment on above: Result Comment: ^~:![facility]Score [facility] 08-29-2023 15:00-0400 Diastolic blood pressure 74 mm[Hg] [facility] 08-29-2023 15:00-0400 Heart rate 94 /min [facility] 08-29-2023 15:00-0400 Mean blood pressure 92 mm[Hg] [facility] 08-29-2023 15:00-0400 Respiratory rate 18 /min [facility] 08-29-2023 15:00-0400 Systolic blood pressure 127 mm[Hg] [facility] 07-19-2023 07:30-0400 [facility] Mag[facility] Comment on above: Result Comment: discharge instructions g iven to pt. pt requests an abdominal binder. 07-19-2023 07:15-0400 Body temperature 98.06 [degF] Magalis Nataprawira [facility] 07-19-2023 07:15-0400 Diastolic blood pressure 46 mm[Hg] Magalis Nataprawira [facility] 07-19-2023 07:15-0400 Heart rate 77 /min Magalis Nataprawira [facility] 07-19-2023 07:15-0400 Hourly Rounding Magalis Nataprawira [facility] 07-19-2023 07:15-0400 Mean blood pressure 68 mm[Hg] Magalis Nataprawira [facility] 07-19-2023 07:15-0400 Systolic blood pressure 112 mm[Hg] Magalis Nataprawira [facility] 07-19-2023 06:44-0400 bodymassindex 1.44 kg/m2 Magalis Nataprawira [facility] Comment on above: Result Comment: ^~:!ZScore Source -[facility] 07-19-2023 06:44-0400 Height/Length Percentile 60.93 1 Magalis Nataprawira [facility] Comment on above: Result Comment: ^~:!Percentile Source -[facility] 07-19-2023 06:44-0400 Height/Length Z-Score 0.28 1 Magalis Nataprawira [facility] Comment on above: Result Comment: ^~:!ZScore Source -[facility] 07-19-2023 06:44-0400 Weight Percentile 93.73 % Magalis Snow [facility] Comment on above: Result Comment: ^~:!Bertram White [facility] 07-19-2023 06:44-0400 Weight Z-Score 1.53 1 Magalis Snow [facility] Comment on above: Result Comment: ^~:!ZSscot [facility] 03-20-2023 08:14-0500 Body mass index (BMI) [Ratio] 27.09 kg/m2 Kourtney Kari LOAN ANALYST Work Phone: [facility] 03-20-2023 08:14-0500 Body weight 71.58 kg Kourtney Lindsayman LOAN ANALYST Work Phone: [facility] 03-20-2023 08:14-0500 Diastolic blood pressure 76 mm[Hg] Kourtney Kari LOAN ANALYST Work Phone: [facility] 03-20-2023 08:14-0500 Systolic blood pressure 124 mm[Hg] Kourtney Pierce LOAN ANALYST Work Phone: [facility] 03-15-2023 06:43-0500 Body height 162.6 cm Kourtney Lindsayman LOAN ANALYST Work Phone: [facility] 02-13-2023 17:00-0500 Heart rate 76 /min Steven Alatorre [facility] 02-13-2023 17:00-0500 Mean blood pressure 82 mm[Hg] Steven Alatorre [facility] 02-13-2023 17:00-0500 SaO2% (BldA) [Mass fraction] 98 % Steven Alatorre [facility] 02-13-2023 16:07-0500 Diastolic blood pressure 66 mm[Hg] Steven Celi [facility] 02-13-2023 16:07-0500 Heart rate 71 /min Steven Celi [facility] 02-13-2023 16:07-0500 Mean blood pressure 81 mm[Hg] Steven Quiroze [facility] 02-13-2023 16:07-0500 Respiratory rate 16 /min Steven Quiroze [facility] 02-13-2023 16:07-0500 SaO2% (BldA) [Mass fraction] 100 % Steven Celi [facility] 02-13-2023 16:07-0500 Systolic blood pressure 111 mm[Hg] Steven Quiroze [facility] 02-13-2023 15:21-0500 Diastolic blood pressure 67 mm[Hg] Steven Quiroze [facility] 02-13-2023 15:21-0500 Heart rate 65 /min Steven Quiroze [facility] 02-13-2023 15:21-0500 Mean blood pressure 83 mm[Hg] Steven Quiroze [facility] 02-13-2023 15:21-0500 SaO2% (BldA) [Mass fraction] 100 % Steven Quiroze [facility] 02-13-2023 15:21-0500 Systolic blood pressure 114 mm[Hg] Steven Quiroze [facility] 02-13-2023 14:18-0500 Body temperature 98.06 [degF] Steven Celi [facility] 02-13-2023 14:18-0500 bodymassindex 0.93 kg/m2 Steven Celi [facility] Comment on above: Result Comment: ^[facility] 02-13-2023 14:18-0500 Heart rate 70 /min Steven Alatorre [facility] 02-13-2023 14:18-0500 Height/Length Percentile 60.56 1 Steven Quiroze [facility] Comment on above: Result Comment: ^~:!Percentile [facility] 02-13-2023 14:18-0500 Height/Length Z-Score 0.27 1 Steven Quiroze [facility] Comment on above: Result Comment: ^~:!ZScore [facility] 02-13-2023 14:18-0500 Weight Percentile 84.08 % Steven Quiroze [facility] Comment on above: Result Comment: ^~:!Percentile [facility] 02-13-2023 14:18-0500 Weight Z-Score 1.00 1 Steven Alatorre [facility] Comment on above: [facility]: [facility] 21:13-0500 Diastolic blood pressure 57 mm[Hg] Steven Quiroze [facility] 01-26-2023 21:13-0500 Heart rate 74 /min Steven Quiroze [facility] 01-26-2023 21:13-0500 Mean blood pressure 75 mm[Hg] Steven Quiroze [facility] 01-26-2023 21:13-0500 Respiratory rate 18 /min Steven Quiroze [facility] 01-26-2023 21:13-0500 SaO2% (BldA) [Mass fraction] 100 % Steven Celi [facility] 01-26-2023 21:13-0500 Systolic blood pressure 110 mm[Hg] Steven Quiroze [facility] 01-26-2023 20:37-0500 Diastolic blood pressure 83 mm[Hg] Steven Alatorre [facility] 01-26-2023 20:37-0500 Heart rate 83 /min Steven Alatorre [facility] 01-26-2023 20:37-0500 Mean blood pressure 104 mm[Hg] Steven Alatorre [facility] 01-26-2023 20:37-0500 Respiratory rate 17 /min Steven Alatorre [facility] 01-26-2023 20:37-0500 SaO2% (BldA) [Mass fraction] 100 % Steven Quiroze [facility] 01-26-2023 20:37-0500 Systolic blood pressure 146 mm[Hg] Steven Alatorre [facility] 01-26-2023 19:10-0500 Body temperature 98.42 [degF] Steven Alatorre [facility] 01-26-2023 19:10-0500 bodymassindex 1.05 kg/m2 Steven Alatorre [facility] Comment on above: Result Comment: ^~:!ZScore Source -[facility] 01-26-2023 19:10-0500 Diastolic blood pressure 61 mm[Hg] Steven Alatorre [facility] 01-26-2023 19:10-0500 Heart rate 71 /min Steven Alatorre [facility] 01-26-2023 19:10-0500 Height/Length Percentile 71.85 1 Steven Quiroze [facility] Comment on above: Result Comment: ^~:!Percentile Source -[facility] 01-26-2023 19:10-0500 Height/Length Z-Score 0.58 1 Steven Quiroze [facility] Comment on above: [facility]: [facility]-26-[facility] 19:10-0500 Respiratory rate 18 /min Steven Quiroze [facility] 01-26-2023 19:10-0500 SaO2% (BldA) [Mass fraction] 99 % Steven Celi [facility] 01-26-2023 19:10-0500 Systolic blood pressure 120 mm[Hg] Steven Quiroze [facility] 01-26-2023 19:10-0500 weight 1.21 1 Steven Quiroze [facility] Comment on above: Result Comment: ^~:![facility] 01-26-2023 19:10-0500 Weight Percentile 88.76 % Steven Quiroze [facility] Comment on above: Result Comment: ^~:![facility] 01-23-2023 17:43-0500 Diastolic blood pressure 80 mm[Hg] Steven Quiroze [facility] 01-23-2023 17:43-0500 Heart rate 70 /min Steven Quiroze [facility] 01-23-2023 17:43-0500 Mean blood pressure 92 mm[Hg] Steven Quiroze [facility] 01-23-2023 17:43-0500 Respiratory rate 16 /min Steven Quiroze [facility] 01-23-2023 17:43-0500 SaO2% (BldA) [Mass fraction] 99 % Steven Quiroze [facility] 01-23-2023 17:43-0500 Systolic blood pressure 116 mm[Hg] Steven Celi [facility] 01-23-2023 17:00-0500 Diastolic blood pressure 50 mm[Hg] Steven Quiroze [facility] 01-23-2023 17:00-0500 Heart rate 62 /min Steven Celi [facility] 01-23-2023 17:00-0500 Mean blood pressure 65 mm[Hg] Steven Celi [facility] 01-23-2023 17:00-0500 Respiratory rate 18 /min Steven Celi [facility] 01-23-2023 17:00-0500 SaO2% (BldA) [Mass fraction] 100 % Steven Celi [facility] 01-23-2023 17:00-0500 Systolic blood pressure 95 mm[Hg] Steven Celi [facility] 01-23-2023 16:30-0500 Diastolic blood pressure 51 mm[Hg] Steven Celi [facility] 01-23-2023 16:30-0500 Heart rate 53 /min tSeven Quiroze [facility] 01-23-2023 16:30-0500 Mean blood pressure 66 mm[Hg] Steven Quiroze [facility] 01-23-2023 16:30-0500 Respiratory rate 19 /min Steven Quiroze [facility] 01-23-2023 16:30-0500 SaO2% (BldA) [Mass fraction] 99 % Steven Celi [facility] 01-23-2023 16:30-0500 Systolic blood pressure 97 mm[Hg] Steven Celi [facility] 01-23-2023 11:45-0500 Body temperature 97.7 [degF] Steven Celi [facility] 01-23-2023 11:45-0500 bodymassindex 1.35 kg/m2 Steven Alatorre [facility] Comment on above: Result Comment: ^~:!ZScore [facility] 01-23-2023 11:45-0500 Heart rate 65 /min Steven Alatorre [facility] 01-23-2023 11:45-0500 Height/Length Percentile 60.60 1 Steven Alatorre [facility] Comment on above: Result Comment: ^~:!Percentile Source -[facility] 01-23-2023 11:45-0500 Height/Length Z-Score 0.27 1 Steven Alatorre [facility] Comment on above: Result Comment: ^~:!ZScore [facility] 01-23-2023 11:45-0500 weight 1.42 1 Steven Alatorre [facility] Comment on above: Result Comment: ^~:!ZScore [facility] 01-23-2023 11:45-0500 Weight Percentile 92.25 % Steven Alatorre [facility] Comment on above: Result Comment: ^~:!Percentile Source -[place] 12-07-2022 23:02-0400 Body temperature 98.24 [degF] Kaylinn Dokken [facility] 12-07-2022 23:02-0400 bodymassindex 1.61 kg/m2 Kaylinn Dokken [facility] Comment on above: Result Comment: ^~:!ZScore [facility] 12-07-2022 23:02-0400 Diastolic blood pressure 46 mm[Hg] Kaylinn Dokken [facility] 12-07-2022 23:02-0400 Heart rate 78 /min Kaylinn Dokken [facility] 12-07-2022 23:02-0400 Height/Length Percentile 45.75 1 Damaris Jean Baptiste [facility] Comment on above: Result Comment: ^~:!Percentile Source -[facility] [place] 12-07-2022 23:02-0400 Height/Length Z-Score -0.11 1 Damaris Faulknerkken [facility] Comment on above: Result Comment: ^~:!ZScore [facility] 12-07-2022 23:02-0400 Respiratory rate 18 /min Damaris Mccrayen [facility] 12-07-2022 23:02-0400 SaO2% (BldA) [Mass fraction] 97 % Damaris Mccrayen [facility] 12-07-2022 23:02-0400 Systolic blood pressure 113 mm[Hg] Adrianan kken [facility] 12-07-2022 23:02-0400 weight 1.61 1 Damaris Jean Baptiste [facility] Comment on above: Result Comment: ^~:!JOHNMakelight Interactive [facility] 12-07-2022 23:02-0400 Weight Percentile 94.60 % Damaris Jean Baptiste [facility] Comment on above: Result Comment: ^~:!Percentile Source -[facility] [place] 10-30-2022 10:51-0400 Body temperature 98.24 [degF] Steven Alatorre [facility] 10-30-2022 10:51-0400 bodymassindex 1.51 Steven Alatorre [facility] Comment on above: Result Comment: ^~:!ZScore [facility] 10-30-2022 10:51-0400 Diastolic blood pressure 72 mm[Hg] Steven Alatorre [facility] 10-30-2022 10:51-0400 Heart rate 80 /min Steven Alatorre [facility] 10-30-2022 10:51-0400 Height/Length Percentile 61.36 Steven Alatorre [facility] Comment on above: Result Comment: ^~:!Percentile Source -[facility] 10-30-2022 10:51-0400 Height/Length Z-Score 0.29 Steven Alatorre [facility] Comment on above: Result Comment: ^~:!ZScore [facility] 10-30-2022 10:51-0400 Respiratory rate 16 /min Steven Alatorre [facility] 10-30-2022 10:51-0400 SaO2% (BldA) [Mass fraction] 97 % Steven Alatorre [facility] 10-30-2022 10:51-0400 Systolic blood pressure 110 mm[Hg] Steven Alatorre [facility] 10-30-2022 10:51-0400 weight 1.60 Steven Alatorre [facility] Comment on above: Result Comment: ^~:!ZScore [facility] 10-30-2022 10:51-0400 Weight Percentile 94.47 % Steven Alatorre [facility] Comment on above: Result Comment: ^~:!Percentile Source - [place] 08-10-2022 12:40-0400 Hourly Rounding Jerry GONZALEZO [facility] Comment on above: Result Comment: discharged out to [facility] without incident accompanied per nurse, the baby was carried in the infant carseat 08-10-2022 12:30-0400 Hourly Rounding Jerrymaría GONZALEZO [facility] Comment on above: Result Comment: discharge instructions sheyla paty the pt verbalized understanding 08-10-2022 11:42-0400 Hourly Rounding Jerry STEVE [facility] Comment on above: Result Comment: sitting in bed. denies n eeds or pain 08-10-2022 07:21-0400 Heart rate 73 /min Jerry STEVE [facility] 08-10-2022 07:21-0400 SaO2% (BldA) [Mass fraction] 100 % Jerry STEVE [facility] 08-10-2022 07:19-0400 Body temperature 98.06 [degF] Jerry STEVE [facility] 08-10-2022 07:19-0400 Diastolic blood pressure 77 mm[Hg] Jerry STEVE [facility] 08-10-2022 07:19-0400 Mean blood pressure 86 mm[Hg] Jerry STEVE [facility] 08-10-2022 07:19-0400 Systolic blood pressure 104 mm[Hg] Jerry STEVE [facility] 08-10-2022 07:18-0400 Respiratory rate 18 /min Jerry STEVE [facility] 08-09-2022 20:27-0400 Blood Pressure Location Jerry STEVE [facility] 08-09-2022 20:27-0400 Body temperature 97.34 [degF] Jerry STEVE [facility] 08-09-2022 20:27-0400 Diastolic blood pressure 68 mm[Hg] Jerry STEVE [facility] 08-09-2022 20:27-0400 Heart rate 81 /min Jerry STEVE [facility] 08-09-2022 20:27-0400 Mean blood pressure 87 mm[Hg] Jerry STEVE [facility] 08-09-2022 20:27-0400 Respiratory rate 16 /min Jerry TSEVE [facility] 08-09-2022 20:27-0400 Systolic blood pressure 126 mm[Hg] Jerry STEVE [facility] 08-09-2022 15:24-0400 Heart rate 77 /min Jerry STEVE [facility] 08-09-2022 15:24-0400 SaO2% (BldA) [Mass fraction] 98 % Jerry STEVE [facility] 08-09-2022 15:24-0400 Body temperature 98.24 [degF] Jerry STEVE [facility] 08-09-2022 15:24-0400 Diastolic blood pressure 64 mm[Hg] Jerry STEVE [facility] 08-09-2022 15:24-0400 Mean blood pressure 88 mm[Hg] Jerry STEVE [facility] 08-09-2022 15:24-0400 Systolic blood pressure 135 mm[Hg] Jerry STEVE [facility] 08-09-2022 15:15-0400 Blood Pressure Location Jerry STEVE [facility] 08-09-2022 15:15-0400 Respiratory rate 18 /min Jerry STEVE [facility] 08-09-2022 07:28-0400 SaO2% (BldA) [Mass fraction] 100 % Jerry STEVE [facility] 08-09-2022 07:27-0400 Mean blood pressure 86 mm[Hg] Jerry STEVE [facility] 08-09-2022 07:15-0400 Blood Pressure Location Jerry STEVE [facility] 08-08-2022 19:42-0400 Mean blood pressure 86 mm[Hg] Jerry STEVE [facility] 08-08-2022 08:15-0400 Mean blood pressure 85 mm[Hg] Jerry STEVE [facility] 08-07-2022 06:36-0400 bodymassindex 1.68 Jerry STEVE [facility] Comment on above: [facility]: [facility] 06:36-0400 Height/Length Percentile 61.53 Jerry STEVE [facility] Comment on above: Result Comment: ^~:!Percentile Source -[facility] 08-07-2022 06:36-0400 Height/Length Z-Score 0.29 Jerry STEVE [facility] Comment on above: Result Comment: ^~:!ZScore [facility] 08-07-2022 06:36-0400 weight 1.76 Jerry STEVE [facility] Comment on above: Result Comment: ^~:!ZScore [facility] 08-07-2022 06:36-0400 Weight Percentile 96.10 % Jerry STEVE [facility] Comment on above: Result Comment: ^~:!Percentile Source -[facility] [place] 08-04-2022 13:28-0400 Hourly Rounding Jerry STEVE [facility] 08-04-2022 13:00-0400 Hourly Rounding Jerry STEVE [facility] Comment on above: Result Comment: verbal and written disch arge instructions given to pt and family, encouraged to return for any prob or concerns 08-04-2022 12:00-0400 Hourly Rounding Jerry GONZALEZO [facility] 08-04-2022 11:15-0400 Blood Pressure Location Jerry STEVE [facility] 08-04-2022 11:15-0400 Body temperature 98.06 [degF] Jerry STEVE [facility] 08-04-2022 11:15-0400 bodymassindex 1.67 Jerry STEVE [facility] Comment on above: Result Comment: ^~:!ZScore [facility] 08-04-2022 11:15-0400 Diastolic blood pressure 58 mm[Hg] Jerry STEVE [facility] 08-04-2022 11:15-0400 Heart rate 115 /min Jerry STEVE [facility] 08-04-2022 11:15-0400 Height/Length Percentile 60.94 Jerry STEVE [facility] Comment on above: Result Comment: ^~:!Percentile Source [facility] 08-04-2022 11:15-0400 Height/Length Z-Score 0.28 Jerry STEVE [facility] Comment on above: Result Comment: ^~:!ZScore [facility] 08-04-2022 11:15-0400 Mean blood pressure 80 mm[Hg] Jerry STEVE [facility] 08-04-2022 11:15-0400 Respiratory rate 16 /min Jerry STEVE [facility] 08-04-2022 11:15-0400 Systolic blood pressure 124 mm[Hg] Jerry STEVE [facility] 08-04-2022 11:15-0400 weight 1.75 Jerry STEVE [facility] Comment on above: Result Comment: ^~:!ZScore Source -[facility] 08-04-2022 11:15-0400 Weight Percentile 95.98 % Jerry STEVE [facility] Comment on above: Result Comment: ^~:!Percentile Source -[facility] 01-18-2022 14:00-0500 Body temperature 98.6 [degF] Ender Merrill [facility] 01-18-2022 14:00-0500 Diastolic blood pressure 60 mm[Hg] Ender Merrill [facility] 01-18-2022 14:00-0500 Heart rate 73 /min Ender Merrill [facility] 01-18-2022 14:00-0500 Mean blood pressure 78 mm[Hg] Ender Merrill [facility] 01-18-2022 14:00-0500 Respiratory rate 17 /min Ender Merrill [facility] 01-18-2022 14:00-0500 SaO2% (BldA) [Mass fraction] 100 % Ender Merrill [facility] 01-18-2022 14:00-0500 Systolic blood pressure 115 mm[Hg] Ender Merrill [facility] 01-18-2022 04:00-0500 Body temperature 98.24 [degF] Ender Merrill [facility] 01-18-2022 04:00-0500 Diastolic blood pressure 65 mm[Hg] Ender Merrill [facility] 01-18-2022 04:00-0500 Heart rate 68 /min Ender Merrill [facility] 01-18-2022 04:00-0500 Mean blood pressure 82 mm[Hg] Ender Garfield [facility] 01-18-2022 04:00-0500 Respiratory rate 18 /min Ender Merrlil [facility] 01-18-2022 04:00-0500 SaO2% (BldA) [Mass fraction] 98 % Ender Garfield [facility] 01-18-2022 03:00-0500 Diastolic blood pressure 77 mm[Hg] Ender Merrill [facility] 01-18-2022 03:00-0500 Heart rate 63 /min Ender Merrill [facility] 01-18-2022 03:00-0500 Mean blood pressure 91 mm[Hg] Ender Merrill [facility] 01-18-2022 03:00-0500 SaO2% (BldA) [Mass fraction] 97 % Ender Merrill [facility] 01-18-2022 03:00-0500 Systolic blood pressure 120 mm[Hg] Ender Merrill [facility] 01-18-2022 01:11-0500 bodymassindex 1.29 Ender Merrill [facility] Comment on above: Result Comment: ^~:!ZScore Source -[facility] 01-18-2022 01:11-0500 Heart rate 76 /min Ender Merrill [facility] 01-18-2022 01:11-0500 Height/Length Percentile 61.95 Ender Merrill [facility] Comment on above: Result Comment: ^~:!Percentile Source -[facility] 01-18-2022 01:11-0500 Height/Length Z-Score 0.30 Ender Merrill [facility] Comment on above: [facility]: [facility] 01:11-0500 weight 1.36 Ender Merrill [facility] Comment on above: Result Comment: ^~:![facility] 01-18-2022 01:11-0500 Weight Percentile 91.35 % Ender Merrill [facility] Comment on above: Result Comment: ^~:!Percentile Source [facility] 01-05-2022 11:30-0500 Diastolic blood pressure 72 mm[Hg] Ender Merrill [facility] 01-05-2022 11:30-0500 Heart rate 67 /min Ender Merrill [facility] 01-05-2022 11:30-0500 Mean blood pressure 82 mm[Hg] Ender Merrill [facility] 01-05-2022 11:30-0500 Respiratory rate 18 /min Ender Merrill [facility] 01-05-2022 11:30-0500 SaO2% (BldA) [Mass fraction] 100 % Ender Garfield [facility] 01-05-2022 11:30-0500 Systolic blood pressure 103 mm[Hg] Ender Garfield [facility] 01-05-2022 11:00-0500 Diastolic blood pressure 44 mm[Hg] Ender Garfield [facility] 01-05-2022 11:00-0500 Heart rate 65 /min Ender Garfield [facility] 01-05-2022 11:00-0500 Systolic blood pressure 94 mm[Hg] Ender Garfield [facility] 01-05-2022 10:46-0500 SaO2% (BldA) [Mass fraction] 99 % Ender Garfield [facility] 01-05-2022 10:30-0500 Diastolic blood pressure 53 mm[Hg] Ender Garfield [facility] 01-05-2022 10:30-0500 Heart rate 66 /min Ender Garfield [facility] 01-05-2022 10:30-0500 Respiratory rate 18 /min Ender Garfield [facility] 01-05-2022 10:30-0500 Systolic blood pressure 100 mm[Hg] Ender Garfield [facility] 01-05-2022 10:17-0500 Hourly Rounding Ender Garfield [facility] 01-05-2022 10:17-0500 Promise to Return Ender Garfield [facility] 01-05-2022 10:16-0500 Blood Pressure Location Ender Garfield [facility] 01-05-2022 10:16-0500 Mean blood pressure 68 mm[Hg] Ender Garfield [facility] 01-05-2022 09:19-0500 Blood Pressure Location Ender Garfield [facility] 01-05-2022 09:19-0500 Mean blood pressure 71 mm[Hg] Ender Garfield [facility] 01-05-2022 09:10-0500 Hourly Rounding Ender Garfield [facility] 01-05-2022 09:10-0500 Promise to Return Ender Garfield [facility] 01-05-2022 08:40-0500 Hourly Rounding Ender Merrill [facility] 01-05-2022 08:40-0500 Promise to Return Ender Merrill [facility] 01-05-2022 08:13-0500 Blood Pressure Location Ender Merrill [facility] 01-05-2022 07:52-0500 Body temperature 97.88 [degF] Ender Merrill [facility] 01-05-2022 07:52-0500 bodymassindex 1.28 Ender Merrill [facility] Comment on above: Result Comment: ^~:!24h00 [facility] 01-05-2022 07:52-0500 Heart rate 73 /min Ender Merrill [facility] 01-05-2022 07:52-0500 Height/Length Percentile 61.44 % Ender Merrill [facility] Comment on above: Result Comment: ^~:!Percentile Source -[facility] 01-05-2022 07:52-0500 Height/Length Z-Score 0.29 Ender Merrill [facility] Comment on above: Result Comment: ^~:!ZScore Source [facility] 01-05-2022 07:52-0500 weight 1.35 Ender Merrill [facility] Comment on above: Result Comment: ^~:!24h00 [facility] 01-05-2022 07:52-0500 Weight Percentile 91.20 % Ender Merrill [facility] Comment on above: Result Comment: ^~:!Percentile Source -[facility] 01-02-2022 14:15-0500 Diastolic blood pressure 50 mm[Hg] Steven Alatorre [facility] 01-02-2022 14:15-0500 Heart rate 65 /min Steven Celi [facility] 01-02-2022 14:15-0500 Mean blood pressure 66 mm[Hg] Steven Celi [facility] 01-02-2022 14:15-0500 Respiratory rate 16 /min Steven Celi [facility] 01-02-2022 14:15-0500 SaO2% (BldA) [Mass fraction] 100 % Steven Celi [facility] 01-02-2022 14:15-0500 Systolic blood pressure 99 mm[Hg] Steven Celi [facility] 01-02-2022 12:39-0500 Body temperature 97.88 [degF] Steven Celi [facility] 01-02-2022 12:39-0500 Diastolic blood pressure 75 mm[Hg] Steven Celi [facility] 01-02-2022 12:39-0500 Heart rate 61 /min Steven Celi [facility] 01-02-2022 12:39-0500 Respiratory rate 16 /min Steven Celi [facility] 01-02-2022 12:39-0500 SaO2% (BldA) [Mass fraction] 99 % Steven Celi [facility] 01-02-2022 12:39-0500 Systolic blood pressure 147 mm[Hg] Steven Celi [facility] 01-02-2022 12:39-0500 weight 1.41 Steven Celi [facility] Comment on above: Result Comment: ^~:!ZScore [facility] 01-02-2022 12:39-0500 Weight Percentile 92.03 % Steven Alatorre [facility] Comment on above: Result Comment: ^~:!Percentile Source [facility] 10-16-2021 21:35-0400 Nursing Progress Note Reason Other: discharge instructions given. pt verbalized understanding. [facility] 10-16-2021 20:12-0400 Body temperature 98.42 [degF] [facility] 10-16-2021 20:12-0400 Diastolic blood pressure 77 mm[Hg] [facility] 10-16-2021 20:12-0400 Heart rate 69 /min [facility] 10-16-2021 20:12-0400 Respiratory rate 18 /min [facility] 10-16-2021 20:12-0400 SaO2% (BldA) [Mass fraction] 98 % [facility] 10-16-2021 20:12-0400 Systolic blood pressure 113 mm[Hg] [facility] 09-14-2021 08:08-0400 Body temperature 98.42 [degF] Ender Merrill [facility] 09-14-2021 08:08-0400 Diastolic blood pressure 82 mm[Hg] Ender Merrill [facility] 09-14-2021 08:08-0400 Heart rate 71 /min Ender Merrill [facility] 09-14-2021 08:08-0400 Respiratory rate 18 /min Ender Merrill [facility] 09-14-2021 08:08-0400 SaO2% (BldA) [Mass fraction] 100 % Ender Merrill [facility] 09-14-2021 08:08-0400 Systolic blood pressure 127 mm[Hg] Ender Merrill [facility] 06-09-2021 18:18-0400 Hourly Rounding Ras Miller [facility] Comment on above: Result Comment: Pt up in room getting re warren for discharge; no other needs noted. 06-09-2021 17:04-0400 Hourly Rounding Ras Miller [facility] Comment on above: Result Comment: Pt visiting with friend; no other needs noted. 06-09-2021 16:20-0400 Blood Pressure Location [facility] 06-09-2021 16:20-0400 Body temperature 97.52 [degF] [facility] 06-09-2021 16:20-0400 Diastolic blood pressure 68 mm[Hg] [facility] 06-09-2021 16:20-0400 Heart rate 82 /min [facility] 06-09-2021 16:20-0400 Hourly Rounding [facility] Comment on above: Result Comment: Mom holding infant; no n eeds noted. 06-09-2021 16:20-0400 Mean blood pressure 89 mm[Hg] [facility] 06-09-2021 16:20-0400 Respiratory rate 18 /min [facility] 06-09-2021 16:20-0400 Systolic blood pressure 132 mm[Hg] [facility] 06-09-2021 07:15-0400 Blood Pressure Location [facility] 06-09-2021 07:15-0400 Body temperature 98.78 [degF] [facility] 06-09-2021 07:15-0400 Diastolic blood pressure 65 mm[Hg] [facility] 06-09-2021 07:15-0400 Heart rate 84 /min [facility] 06-09-2021 07:15-0400 Mean blood pressure 84 mm[Hg] [facility] 06-09-2021 07:15-0400 Respiratory rate 20 /min [facility] 06-09-2021 07:15-0400 Systolic blood pressure 123 mm[Hg] [facility] 06-08-2021 20:35-0400 Body temperature 97.88 [degF] [facility] 06-08-2021 20:35-0400 Diastolic blood pressure 75 mm[Hg] [facility] 06-08-2021 20:35-0400 Heart rate 77 /min [facility] 06-08-2021 20:35-0400 Mean blood pressure 90 mm[Hg] [facility] 06-08-2021 20:35-0400 SaO2% (BldA) [Mass fraction] 97 % [facility] 06-08-2021 20:35-0400 Systolic blood pressure 121 mm[Hg] [facility] 06-08-2021 20:30-0400 Blood Pressure Location [facility] 06-08-2021 20:30-0400 Respiratory rate 18 /min [facility] 06-08-2021 18:30-0400 Promise to Return [facility] 06-08-2021 17:10-0400 Promise to Return [facility] 06-08-2021 16:45-0400 Promise to Return [facility] 06-08-2021 08:00-0400 Mean blood pressure 84 mm[Hg] [facility] 06-07-2021 23:30-0400 SaO2% (BldA) [Mass fraction] 99 % [facility] 06-07-2021 07:22-0400 Heart rate 72 /min [facility] Encounters Encounter Date Encounter Type Care Provider Facility Start: 08-19-2024 End: 08-19-2024 Bamboo flowsheet Jerry Steve DO Work Phone: [facility] Start: 08-19-2024 End: 08-19-2024 Bamboo flowsheet Jerry Steve DO Work Phone: [facility] Start: 08-19-2024 End: 08-19-2024 Office outpatient visit 15 minutes Jerry Steve DO Work Phone: [facility] Comment on above: Third trimester preg chip ([facility]); 32 weeks gestation of ([facility]) Start: 08-19-2024 End: 08-19-2024 ambulatory JERRY STEVE Not Available Start: 08-14-2024 End: 08-14-2024 Clinisync Result Encounter Jerry Steve DO Work Phone: [facility] Unsolicited Start: 08-14-2024 End: 08-14-2024 Clinisync Result Encounter Jerry Steve DO Work [...] otitis media type (Primary Dx); Third trimester ([facility]); 30 weeks gestation of ([facility]); SGA (small for gestational age) ([facility]) Start: 08-05-2024 End: 08-05-2024 ambulatory HOLLI ROQUE Not Available Start: 07-22-2024 End: 07-22-2024 Bamboo flowsheet Jerry Steve DO Work Phone: [facility] Start: 07-22-2024 End: 07-22-2024 Bamboo flowsheet Jerry Steve DO Work Phone: [facility] Start: 07-22-2024 End: 07-22-2024 Office outpatient visit 15 minutes Jerry Steve DO Work Phone: [facility] Comment on above: Third trimester preg chip ([facility]); 28 weeks gestation of ([facility]); SGA (small for gestational age) ([facility]) Start: 07-22-2024 End: 07-22-2024 Orders Only Nely Sheldon RN [facility] at [facility] Comment on above: Encounter for follow -up ultrasound of anatomy (Primary Dx) Start: 07-21-2024 End: 07-21-2024 Orders Only Chelsi Box RN [facility] at [facility] Comment on above: Abnormal ultra sound (Primary Dx) Start: 07-04-2024 End: 07-04-2024 Clinisync Result Encounter Jerry Steve DO Work Phone: [facility] Unsolicited Start: 07-04-2024 End: 07-04-2024 Clinisync Result Encounter Jerry Steve DO Work Phone: [facility] Unsolicited Start: 07-02-2024 End: 07-02-2024 ambulatory Eduardo WRAY Facility: [facility] Start: 06-24-2024 End: 06-24-2024 Bamboo flowsheet Jerry [...] 06-19-2024 End: 06-19-2024 ambulatory Eduardo WRAY Facility: [facility] Start: 06-19-2024 End: 06-19-2024 Off-Site Eduardo WRAY [facility] Start: 06-16-2024 ambulatory [facility] Start: 06-09-2024 End: 06-09-2024 Bamboo flowsheet Jerry [...] ambulatory John Paul Lovell MD Work Phone: [facility] Work Phone: Start: 04-01-2024 End: 04-01-2024 Patient encounter procedure John Paul Lovell MD Work Phone: [facility] Work Phone: Start: 01-09-2024 End: 01-09-2024 Lab Drop off [facility] Start: 01-02-2024 ambulatory Wil Brooks acility:[facility] Start: 01-02-2024 Registered Recurring John Paul Lovell MD Work Phone: [facility] Start: 10-17-2023 End: 10-17-2023 Telephone encounter Mak Jordan NP Work Phone: [facility] Start: 10-16-2023 End: 10-16-2023 Bamboo flowsheet Mak Jordan LOAN ANALYST Work Phone: [facility] Start: 10-16-2023 End: 10-16-2023 Bamboo flowsheet Mak Jordan LOAN ANALYST Work Phone: [facility] Start: 10-16-2023 End: 10-16-2023 Initial preventive medicine new pt age 18-39yrs Mak Jordan LOAN ANALYST Work Phone: [facility] Comment on above: Encounter for medica l examination to establish care (Primary Dx); Bipolar depression ([facility]); Anxiety; Attention deficit hyperactivity disorder (ADHD), combined type (CMS/HCC); PTSD (post-traumatic stress disorder) ([facility]); History of anemia; Screening for heart disease; Wheezing; COVID-19; Skin lesion of left arm Start: 10-16-2023 End: 10-16-2023 Patient encounter status Mak Jordan Work Phone: [facility] Start: 10-16-2023 End: 10-16-2023 ambulatory MAK JORDAN Not Available Start: 09-10-2023 End: 09-12-2023 Evaluation and management of inpatient Magalis Snow Facility:[facility] Start: 09-05-2023 End: 09-05-2023 ambulatory Magalis Snow Facility:[facility] Start: 09-05-2023 End: 09-05-2023 Lab Drop off Magalis Snow [facility] Start: 09-05-2023 End: 09-05-2023 ambulatory MAGALIS SNOW Not Available Start: 08-30-2023 End: 10-07-2023 Pre-admission assessment Magalis Snow [facility] Start: 08-29-2023 End: 08-29-2023 OB Triage [facility] Start: 07-20-2023 End: 08-21-2023 Pre-admission assessment Magalis Snow [facility] Start: 07-19-2023 End: 07-19-2023 ambulatory DO Magalis Snow Facility:[facility] Start: 07-19-2023 End: 07-19-2023 OB Triage Magalis Snow [facility] Start: 07-09-2023 End: 07-09-2023 ambulatory DO Magalis Sophia Snow Facility:[facility] Start: 07-09-2023 End: 07-09-2023 Patient encounter procedure Kourtney PIERCE [facility] Start: 03-20-2023 Bamboo flowsheet Kourtney kolb LOAN ANALYST Work Phone: [facility] Start: 03-20-2023 Bamboo flowsheet Kourtney kolb LOAN ANALYST Work Phone: [facility] Start: 03-20-2023 End: 03-20-2023 Office outpatient visit 25 minutes Kourtney Pierce LOAN ANALYST Work Phone: [facility] Comment on above: GA: 12w6d Start: 03-19-2023 Chart abstracting Kourtney Pierce LOAN ANALYST Work Phone: [facility] Start: 03-15-2023 End: 03-15-2023 flow sheet Kourtney Pierce LOAN ANALYST Work Phone: [facility] Comment on above: GA: 12w1d Start: 02-13-2023 End: 02-13-2023 Emergency department patient visit Steven Alatorre [facility] Start: 01-26-2023 End: 01-26-2023 Emergency department patient visit Steven Alatorre [facility] Start: 01-23-2023 End: 01-23-2023 Emergency department patient visit Steven Alatorre [facility] Start: 01-01-2023 End: 01-01-2023 ambulatory Alon Johnson Facility:[facility] Start: 01-01-2023 End: 01-01-2023 Lab Drop off Alon Johnson [facility] Start: 01-01-2023 End: 01-01-2023 ambulatory Alon Johnson Facility:[facility] Start: 12-07-2022 End: 12-08-2022 Emergency department patient visit Damaris Wilson Domaryblaine [facility] Start: 10-30-2022 End: 10-30-2022 Emergency department patient visit Steven Alatorre [facility] Start: 08-07-2022 End: 08-10-2022 Evaluation and management of inpatient Ras Miller Facility:[facility] Start: 08-07-2022 End: 08-10-2022 Evaluation and management of inpatient Jerry R STEVE [facility] Start: 08-05-2022 End: 09-05-2022 Pre-admission assessment Jerry R STEVE [facility] Start: 08-04-2022 End: 08-04-2022 ambulatory Jerry R STEVE Facility:[facility] Start: 08-04-2022 End: 08-04-2022 OB Triage Jerry R STEVE [facility] Start: 01-18-2022 End: 01-18-2022 Emergency department patient visit Ender Merrill [facility] Start: 01-05-2022 End: 01-05-2022 Emergency department patient visit Ender Merrill [facility] Start: 01-02-2022 End: 01-02-2022 Emergency department patient visit Steven Alatorre [facility] Start: 10-16-2021 End: 10-16-2021 Emergency department patient visit Ana Lloyd [facility] Start: 09-14-2021 End: 09-14-2021 Emergency department patient visit Ender Merrill [facility] Start: 06-07-2021 End: 06-09-2021 Evaluation and management of inpatient Ras Miller [facility] Start: 06-02-2021 End: 07-06-2021 Pre-admission assessment [facility] Start: 05-23-2021 End: 05-23-2021 Lab Drop off Ras Bahenaten [facility] Start: 11-01-2020 End: 11-01-2020 Formerly named [facility] Facility: Procedures Date Procedure Procedure Detail Performing Clinician Start: 08-19-2024 Urnls dip stick/tabl et rgnt non-auto w/o micrscp Jerry Steve DO Work Phone: Start: 08-14-2024 US OB CERVICAL LENGTH C orey Steve DO Work Phone: Start: 08-14-2024 US OB BPP W NON-STRESS Jerry Steve DO Work Phone: Start: 08-14-2024 US OB PLACENTA Jerry Fa zio DO Work Phone: Start: 08-14-2024 [facility] UA (CLEAN/CATCH) SALES FORECAST ANALYST/MICRO IF IND. Jerry Steve DO Work Phone: Start: 08-07-2024 US OB BPP W NON-STRESS [...] Work Phone: Start: 06-04-2024 [facility] UA (CLEAN/CATCH) SALES FORECAST ANALYST/MICRO IF IND. Jerry Steve DO Work Phone: [...] Expires: 07/22/2025 Start: 10-06-2024 Influenza vaccination N [facility] Start: 09-03-2024 End: 09-03-2024 Patient encounter procedure 09/03/2024 11:00 AM EDT Appointment [facility] [address] [place] [phone] [facility] Start: 09-02-2024 End: 09-02-2024 Patient encounter procedure 09/02/2024 10:00 AM EDT Routine [facility] [address] [place] [phone] Jerry Wilson, [address] [place] [address] [facility] Start: 08-20-2024 End: 07-21-2025 US MFM with or without consult US MFM with or without consult Imaging Routine Abnormal ultrasound Expected: 08/20/2024 (Approximate), Expires: 07/21/2025 [facility] Work Phone: Comment on above: Expected: 08/20/2024 (Approximate), Expires: 07/21/2025 Start: 08-19-2024 End: 08-19-2024 Patient encounter procedure [facility] Comment on above: Arrived Start: 08-05-2024 End: 02-05-2025 US biophysical profile w non stress test US biophysical profile w non stress test Imaging Routine SGA (small for gestational age) ([facility]) Expected: 08/05/2024 (Approximate), Expires: 02/05/2025 [facility] Work Phone: Comment on above: Expected: 08/05/2024 (Approximate), Expires: 02/05/2025 Start: 08-05-2024 End: 08-05-2024 Patient encounter procedure [facility] Comment on above: Arrived Start: 07-22-2024 End: 07-22-2024 Patient encounter procedure 07/22/2024 1:20 PM EDT Routine [facility] [address] [place] [phone] Jerry Wilson, DO [address] [place] [address] [facility] Start: 07-22-2024 End: 07-22-2024 Patient encounter procedure 07/22/2024 7:30 AM EDT Appointment [facility] [address] [place] [address] [facility] Start: 06-24-2024 End: 06-24-2024 Patient encounter procedure [facility] Comment on above: Arrived Start: 05-26-2024 End: 05-26-2024 Patient encounter procedure 05/26/2024 9:20 AM EDT Routine [facility] [address] [place] [phone] Jerry Wilson, DO [address] [place] [address] [facility] Start: 05-22-2024 End: 06-21-2024 Alpha fetoprotein, maternal Alpha fetoprotein, maternal Lab Routine Need for maternal serum alpha-protein (MSAFP) screening Expected: 05/22/2024 (Approximate), Expires: 06/21/2024 [facility] Comment on above: Expected: 05/22/2024 (Approximate), Expires: 06/21/2024 Start: 05-22-2024 End: 08-21-2024 US for US OB 14+ weeks anatomy scan Imaging Routine Screening, , for anatomic survey Expected: 05/22/2024, Expires: 08/21/2024 [facility] Comment on above: Expected: 05/22/2024 , Expires: 08/21/2024 Start: 05-22-2024 End: 05-22-2024 Patient encounter procedure 05/22/2024 11:00 AM EDT Routine [facility] [address] [place] [phone] Jerry Wilson, DO [address] [place] [address] Arrived [facility] Comment on above: Arrived Start: 05-09-2024 End: 05-09-2025 ABO/Rh ABO/Rh Lab Routine Missed menses , unspecified gestational age Expected: 05/09/2024 (Approximate), Expires: 05/09/2025 [facility] Comment on above: Expected: 05/09/2024 (Approximate), Expires: 05/09/2025 Start: 05-09-2024 End: 06-08-2024 Alpha fetoprotein, maternal Alpha fetoprotein, maternal Lab Routine Missed menses , unspecified gestational age Encounter for supervision of normal first in first trimester Expected: 05/09/2024 (Approximate), Expires: 06/08/2024 [facility] Comment on above: Expected: 05/09/2024 (Approximate), Expires: 06/08/2024 Start: 05-09-2024 End: 05-09-2025 Blood type and Indirect antibody screen panel - Blood Type and screen Lab Routine Missed menses , unspecified gestational age Expected: 05/09/2024 (Approximate), Expires: 05/09/2025 [facility] Work Phone: Comment on above: Expected: 05/09/2024 (Approximate), Expires: 05/09/2025 Start: 05-09-2024 End: 05-09-2025 Drugs of abuse panel - Urine by Screen method Rapid drug screen, urine Lab Routine , unspecified gestational age Encounter for supervision of normal first in first trimester Expected: 05/09/2024 (Approximate), Expires: 05/09/2025 [facility] Comment on above: Expected: 05/09/2024 (Approximate), Expires: 05/09/2025 Start: 10-31-2023 End: 10-16-2024 CBC W Auto Differential panel - Blood CBC and differential Lab Routine Anemia, unspecified type Expected: 10/31/2023 (Approximate), Expires: 10/16/2024 [facility] Comment on above: Expected: 10/31/2023 (Approximate), Expires: 10/16/2024 Start: 10-31-2023 End: 10-16-2024 Ferritin [Mass/volume] in Serum or Plasma Ferritin Lab Routine Anemia, unspecified type Expected: 10/31/2023 (Approximate), Expires: 10/16/2024 [facility] Comment on above: Expected: 10/31/2023 (Approximate), Expires: 10/16/2024 Start: 10-31-2023 End: 10-16-2024 Iron and Iron binding capacity panel - Serum or Plasma Iron and TIBC Lab Routine Anemia, unspecified type Expected: 10/31/2023 (Approximate), Expires: 10/16/2024 [facility] Comment on above: Expected: 10/31/2023 (Approximate), Expires: 10/16/2024 Start: 10-31-2023 End: 10-16-2024 VITAMIN B12/FOLATE, SERUM PANEL VITAMIN B12/FOLATE, SERUM PANEL Lab Routine Anemia, unspecified type Expected: 10/31/2023 (Approximate), Expires: 10/16/2024 [facility] Work Phone: Comment on above: Expected: 10/31/2023 (Approximate), Expires: 10/16/2024 Start: 10-24-2023 End: 10-24-2023 ambulatory 10/24/2023 3:30 PM EDT Visit [facility] [address] [phone] Magalis Snow DO [address] [phone] [facility] Start: 10-22-2023 End: 10-22-2023 Patient encounter procedure 10/22/2023 2:55 PM EDT Office Visit [facility] [address] [place] [phone] Kellee Glynn, LANDSCAPE DESIGNER-SHEET METAL CONTRACTOR [address] [place] [address] [facility] Start: 10-16-2023 End: 10-15-2024 CBC W Auto Differential panel - Blood CBC and differential Lab Routine History of anemia Screening for heart disease Encounter for medical examination to establish care Expected: 10/16/2023 (Approximate), Expires: 10/15/2024 [facility] Comment on above: Expected: 10/16/2023 (Approximate), Expires: 10/15/2024 Start: 10-16-2023 End: 10-15-2024 Comprehensive metabolic 2000 panel - Serum or Plasma Comprehensive metabolic panel Lab Routine History of anemia Screening for heart disease Encounter for medical examination to establish care Expected: 10/16/2023 (Approximate), Expires: 10/15/2024 [facility] Work Phone: Comment on above: Expected: 10/16/2023 (Approximate), Expires: 10/15/2024 Start: 10-16-2023 End: 10-16-2023 Patient encounter procedure 10/16/2023 2:00 PM EDT Office Visit [facility] [address] [place] [phone] Mak Jordan NP [address] [place] [address] Arrived [facility] Comment on above: Arrived Start: 10-07-2023 Influenza vaccination Influenza Vacc ine (#1) [facility] Start: 04-13-2023 End: 03-15-2024 ABO/Rh ABO/Rh Lab Routine Supervision of normal intrauterine in multigravida, first trimester Expected: 04/13/2023 (Approximate), Expires: 03/15/2024 [facility] Work Phone: Comment on above: Expected: 04/13/2023 (Approximate), Expires: 03/15/2024 Start: 04-13-2023 End: 03-15-2024 Antibody screen Antibody screen Lab Routine Supervision of normal intrauterine in multigravida, first trimester Expected: 04/13/2023 (Approximate), Expires: 03/15/2024 [facility] Comment on above: Expected: 04/13/2023 (Approximate), Expires: 03/15/2024 Start: 04-13-2023 End: 03-15-2024 Bacteria identified in Urine by Culture Urine culture Microbiology Routine Supervision of normal intrauterine in multigravida, first trimester Expected: 04/13/2023 (Approximate), Expires: 03/15/2024 [facility] Comment on above: Expected: 04/13/2023 (Approximate), Expires: 03/15/2024 Start: 04-13-2023 End: 03-15-2024 CBC W Auto Differential panel - Blood CBC and differential Lab Routine Supervision of normal intrauterine in multigravida, first trimester Expected: 04/13/2023 (Approximate), Expires: 03/15/2024 [facility] Comment on above: Expected: 04/13/2023 (Approximate), Expires: 03/15/2024 Start: 04-13-2023 End: 03-15-2024 Drugs of abuse panel - Urine by Screen method Rapid drug screen, urine Lab Routine Supervision of normal intrauterine in multigravida, first trimester Expected: 04/13/2023 (Approximate), Expires: 03/15/2024 [facility] Comment on above: Expected: 04/13/2023 (Approximate), Expires: 03/15/2024 Start: 04-13-2023 End: 03-15-2024 Hepatitis B virus surface Ag [Presence] in Serum or Plasma by Immunoassay Hepatitis B surface Ag Lab Routine Supervision of normal intrauterine in multigravida, first trimester Expected: 04/13/2023 (Approximate), Expires: 03/15/2024 [facility] Comment on above: Expected: 04/13/2023 (Approximate), Expires: 03/15/2024 Start: 04-13-2023 End: 03-15-2024 HIV-1/HIV-2 antigen/antibody combination immunoassay HIV-1 and HIV-2 antibodies Lab Routine Supervision of normal intrauterine in multigravida, first trimester Expected: 04/13/2023 (Approximate), Expires: 03/15/2024 [facility] Comment on above: Expected: 04/13/2023 [...] DTaP,Tdap and Td Vaccines (1 - Tdap) [facility] Start: 01-06-2022 Adult BMI Screening Adult BMI Screen ing [facility] Start: 2016 Depression Screening Depression Scre ening [facility] Start: 2016 Tobacco Screening Tobacco Screening [facility] Start: 2004 Screening for Chlamy robby trachomatis Chlamydia Screening [facility] Bacteria identified in Urine by Culture Urine culture Microbiology Routine Missed menses Ordered: 05/09/2024 [facility] Comment on above: Ordered: 05/09/2024 CBC W Auto Different ial panel - Blood CBC and differential Lab Routine Missed menses , unspecified gestational age Ordered: 05/09/2024 [facility] Comment on above: Ordered: 05/09/2024 CHLAMYDIA TRACHOMATI S (GENITO/STI) CHLAMYDIA TRACHOMATIS (GENITO/STI) Lab Routine Exposure to STD Ordered: 05/22/2024 [facility] Comment on above: Ordered: 05/22/2024 Hemoglobin A1c/Hemoglobin.total in Blood Hemoglobin A1c Lab Routine Missed menses , unspecified gestational age Ordered: 05/09/2024 [facility] Comment on above: Ordered: 05/09/2024 Hepatitis B virus surface Ag [Presence] in Serum or Plasma by Immunoassay Hepatitis B surface antigen Lab Routine Missed menses , unspecified gestational age Ordered: 05/09/2024 [facility] Comment on above: Ordered: 05/09/2024 Hepatitis C virus Ab [Presence] in Serum or Plasma by Immunoassay Hepatitis C antibody Lab Routine Missed menses , unspecified gestational age Ordered: 05/09/2024 [facility] Comment on above: Ordered: 05/09/2024 HIV-1/HIV-2 antigen/antibody combination immunoassay HIV-1 and HIV-2 antibodies Lab Routine Missed menses , unspecified gestational age Ordered: 05/09/2024 [facility] Comment on above: Ordered: 05/09/2024 Neisseria gonorrhoea e DNA [Presence] in Unspecified specimen by TIM with probe detection Neisseria gonorrhea DNA probe, direct Lab Routine Exposure to STD Ordered: 05/22/2024 [facility] Comment on above: Ordered: 05/22/2024 Reagin Ab [Presence] in Serum by RPR RPR Lab Routine Missed menses , unspecified gestational age Ordered: 05/09/2024 [facility] Comment on above: Ordered: 05/09/2024 Rubella antibody, IgG Rubella an tibody, IgG Lab Routine Missed menses , unspecified gestational age Ordered: 05/09/2024 [facility] Comment on above: Ordered: 05/09/2024 SURESWAB(R) ADVANCED VAGINITIS PLUS, TMA SURESWAB(R) ADVANCED VAGINITIS PLUS, TMA Pathology and Cytology Routine Exposure to STD Ordered: 05/22/2024 [facility] Work Phone: Comment on above: Ordered: 05/22/2024 SURESWAB(R), CT/NG T VAGINALIS SURESWAB(R), CT/NG T VAGINALIS Pathology and Cytology Routine care, subsequent , first trimester Ordered: 03/20/2023 [facility] Work Phone: Comment on above: Ordered: 03/20/2023 Immunizations Immunization Date Immunization Notes Care Provider [place] 08-09-2022 tetanus toxoid, reduced diphtheria toxoid, and acellular pertussis vaccine, adsorbed Jerry WILSON [facility] Comment on above: Reason for Medicatio n: Other (see comment) 06-08-2021 tetanus toxoid, reduced diphtheria toxoid, and acellular pertussis vaccine, adsorbed; Translations: [Boostrix (Tdap)] aRs [facility] Comment on above: Reason for Medicatio n: Other (see comment) 10-28-2020 SARS-CoV-2 (COVID-19 ) mRNA BNT-162b2 lucie Johnson [facility] Comment on above: Result Comment: 2022: TPVAL 10-07-2020 SARS-CoV-2 (COVID-19 ) mRNA BNT-162b2 lucie [address] [facility] Comment on above: Result Comment: 2022: TPVAL 09-21-2016 hepatitis A vaccine, adult dosage Ras Miller [facility] 09-21-2016 HPV, unspecified formulation Ras Miller [facility] 09-21-2016 meningococcal ACWY vaccine, unspecified formulation Ras Miller [facility] 09-21-2016 tetanus toxoid, reduced diphtheria toxoid, and acellular pertussis vaccine, adsorbed Ras Paul [facility] 06-26-2008 diphtheria, tetanus toxoids and acellular pertussis vaccine [facility] 06-26-2008 measles, mumps and rubella virus vaccine [facility] 06-26-2008 poliovirus vaccine, unspecified formulation [facility] 06-26-2008 varicella virus vaccine [facility] 10-02-2005 diphtheria, tetanus toxoids and acellular pertussis vaccine [facility] 10-02-2005 haemophilus influenz ae type b vaccine, HbOC conjugate [facility] 10-02-2005 hepatitis B vaccine, adult dosage [facility] 10-02-2005 measles, mumps and rubella virus vaccine [facility] 10-02-2005 poliovirus vaccine, unspecified formulation [facility] 10-02-2005 varicella virus vaccine [facility] 2004 diphtheria, tetanus toxoids and acellular pertussis vaccine [facility] 2004 haemophilus influenz ae type b vaccine, HbOC conjugate [facility] 2004 hepatitis B vaccine, adult dosage [facility] 2004 pneumococcal conjuga te vaccine, 13 valent [facility] 2004 poliovirus vaccine, unspecified formulation [facility] 2004 diphtheria, tetanus toxoids and acellular pertussis vaccine [facility] 2004 haemophilus influenz ae type b vaccine, HbOC conjugate [facility] 2004 hepatitis B vaccine, adult dosage [facility] 2004 pneumococcal conjuga te vaccine, 13 valent [facility] 2004 poliovirus vaccine, unspecified formulation [facility] NEGATED: Highlighted row has not occurred!01-01-2023 influenza virus vaccine, unspecified formulation Alon Johnson [facility] Payers Date Payer Category Payer Self-pay 2022 Medicaid [id number] 2022 Medicaid [id number] 2004 Unknown [id number] 2.16.8 40.1.238810.3.579.2.727 2004 Unknown [id number] 2.16.8 40.1.782821.3.579.2.727 2004 Unknown [id number] 2.16.8 40.1.140276.3.579.2.727 2004 Unknown [id number] 2.16.8 40.1.270328.3.579.2.727 2004 Unknown [id number] 2.16.8 40.1.960299.3.579.2.727 2004 Unknown [id number] 2.16.8 40.1.290065.3.579.2.727 2004 Unknown [id number] 2.16.8 40.1.229537.3.579.2.727 2004 Unknown [id number] 2.16.8 40.1.218450.3.579.2.727 2004 Unknown [id number] 2.16.8 40.1.393284.3.579.2.727 2004 Unknown [id number] 2.16.8 40.1.659756.3.579.2.727 2004 Unknown [id number] 2.16.8 40.1.170718.3.579.2.727 2004 Unknown [id number] 2.16.8 40.1.507057.3.579.2.727 2004 Unknown [id number] 2.16.8 40.1.589924.3.579.2.727 2004 Unknown [id number] 2.16.8 40.1.992500.3.579.2.727 2004 Unknown [id number] 2.16.8 40.1.177873.3.579.2.727 2004 Unknown [id number] 2.16.8 40.1.450025.3.579.2.727 2004 Unknown [id number] 2.16.8 40.1.175242.3.579.2.727 2004 Unknown [id number] 2.16.8 40.1.751372.3.579.2.727 2004 Unknown [id number] 2.16.8 40.1.292036.3.579.2.727 2004 Unknown [id number] 2.16.8 40.1.962010.3.579.2.727 2004 Unknown [id number] 2.16. 840.1.954838.3.579.2.1286 2004 Unknown [id number] 2.16.8 40.1.225144.3.579.2.1259 2004 Unknown [id number] 2.16.8 40.1.078962.3.579.2.1259 2004 Unknown [id number] 2.16.8 40.1.528390.3.579.2.1259 2004 Unknown [id number] 2.16.84 0.1.851016.3.579.2.1259 2004 Unknown [id number] 2.16.84 0.1.682066.3.579.2.1259 2004 Unknown [id number] 2.16.84 0.1.506031.3.579.2.1259 2004 Unknown [id number] 2.16.84 0.1.340921.3.579.2.1259 2004 Unknown [id number] 2.16.84 0.1.873625.3.579.2.1259 2004 Unknown [id number] 2.16.84 0.1.533592.3.579.2.1259 2004 Unknown [id number] 2.16.84 0.1.095854.3.579.2.1259 1978 Unknown [id number] 2.16.84 0.1.792504.3.579.2.593 1959 Unknown [id number] Unknown [id number] Social History Date Type Detail Facility Tobacco Never smoker [facility] Comment on above: denies Start: 03-15-2023 End: 10-16-2023 Sex Assigned At Female [facility] Tobacco smoking status [facility] Start: 01-01-2023 End: 03-15-2023 Tobacco smoking status Never smoked tobacco (finding) [facility] Comment on above: smokers in home Tobacco smoking status Never [facility] Comment on above: smokers [...] Only a little [facility] (I/We) worried [facility] (my/our) food would run out before (I/we) got money to buy more. Never true [facility] Start: 03-15-2023 Education 13 [facility] Start: 12-21-2022 [facility] Start: 2004 Sex Assigned At Not on file [facility] Tobacco smoking stat us NHIS Unknown if ever smoked [facility] Work Phone: Start: 09-10-2014 End: 04-01-2024 Sex Female (finding) [facility] Start: 2005 Sex Assigned At Female F [facility] Start: 07-21-2024 Alcoholic beverage intake Lifetime non-drinker (finding) [facility] Functional Status Date Assessment Result Facility 06-19-2024 Functional Status N/A [facility] 09-10-2023 Functional Status No [facility] 08-29-2023 Functional Status N/A [facility] 07-19-2023 Functional Status N/A [facility] 02-13-2023 Functional Status N/A [facility] 01-26-2023 Functional Status N/A [facility] 01-23-2023 Functional Status N/A [facility] 12-07-2022 Functional Status N/A [facility] 10-30-2022 Functional Status N/A [facility] 08-07-2022 Functional Status N/A [facility] 08-04-2022 Functional Status N/A [facility] 01-18-2022 Functional Status N/A [facility] 01-05-2022 Functional Status N/A [facility] 01-02-2022 Functional Status N/A [facility] 10-16-2021 Functional Status N/A [facility] 09-14-2021 Functional Status N/A [facility] Clinical Notes 05-23-2021 to 08-19-2024 Tavia Moeller LPN - 08/19/2024 1:50 PM BREANA Bearden 08/05/2024 9:50 AM Rich Moeller LPN - 07/22/2024 1:20 PM Rich Moeller LPN - 06/24/2024 1:50 PM BREANA Bearden - 06/09/2024 10:50 AM EDT Note Date & Type Note Facility 08-19-2024 History of Present illness Narrative Reason for [...] nursing note reviewed. Exam conducted with a ski lift operator present. Vitals: Estimated body mass index is 30.38 kg/m as calculated from the following: Height as of 10/16/23: 5' 4 . Weight as of this encounter: 177 lb. BP: 120/60 Patient's last menstrual period was 02/23/2024. ASSESSMENT & PLAN ICD-10-CM 1. Third trimester ([facility]) Z34.93 POCT urinalysis dipstick manually resulted 2. 32 weeks gestation of ([facility]) Z3A.32 Return OB: Patient presents today for a routine obstetrics appointment. Patient is currently 32w2d . Patient states she is doing well but has complaints of being tired due to current . Patient has verbalizes frequent movement. labor precautions was discussed/given and patient was instructed to perform kick counts three times a day. Pt states she is driving to [place] in 2 weeks for a in the family. Gave precautions will return prior to leaving. Orders Placed This Encounter Procedures POCT urinalysis dipstick manually resulted Follow Up: Patient is to return to office in 2 week for routine OB appointment. Documented by Tavia Moeller LPN on behalf of: Holli Roque PA-C documented in this encounter [facility] 08-05-2024 History of Present illness Narrative Reason [...] ASSESSMENT & PLAN ICD-10-CM 1. Third trimester ([facility]) Z34.93 2. 30 weeks gestation of ([facility]) Z3A.30 3. SGA (small for gestational age) ([facility]) P05.10 Return OB: Patient presents today for a routine obstetrics appointment. Patient is currently 30w2d . Patient states she is doing well but has complaints of being tired due to current . Patient has verbalizes frequent movement. labor precautions was discussed/given and patient was instructed to perform kick counts three times a day. Patient released from group home, we will start her with NST/BPP this [...] of: BREANA Chapin documented in this encounter [facility] 07-22-2024 History of Present illness Narrative Reason [...] nursing note reviewed. Exam conducted with a ski lift operator present. Vitals: Estimated body mass index is 28.28 kg/m as calculated from the following: Height as of 10/16/23: 5' 4 . Weight as of this encounter: 164 lb 12 oz. BP: 122/66 Patient's last menstrual period was 02/23/2024. ASSESSMENT & PLAN ICD-10-CM 1. Third trimester ([facility]) Z34.93 POCT urinalysis dipstick manually resulted 2. 28 weeks gestation of ([facility]) Z3A.28 3. SGA (small for gestational age) ([facility]) P05.10 Return OB: Patient presents today [...] Jerry Wilson DO documented in this encounter [facility] 06-24-2024 History of Present illness Narrative Reason [...] nursing note reviewed. Exam conducted with a ski lift operator present. Vitals: Estimated body mass index is [...] with a Estimated Date of Delivery: 10/12/24. [facility] given labs and ultrasound orders for patient to have obtained prior to her return in 4 weeks. Pt and business consult's voiced understanding. Documented by Tavia Moeller LPN on behalf of: Jerry Wilson DO documented in this encounter [facility] 06-09-2024 History of Present illness Narrative Reason [...] calculated from the following: Height as of 9/10/24: 5' 4 . Weight as of this [...] Jerry Wilson DO documented in this encounter [facility] 05-22-2024 History of Present illness Narrative Reason [...] nursing note reviewed. Exam conducted with a ski lift operator present. Vitals: Estimated body mass index is [...] to breath at times. Had been to [facility] ER twice on 05/16/2024 and 05/19/2024 and was given breathing treatments no inhaler or meds. Holli Roque listened to her lungs and could hear some wheezing and prescribed an inhaler along w/Zpak. Cultures was obtained without difficulty and patient was given [facility] order to have obtained. Orders Placed This Encounter Procedures US OB 14+ weeks anatomy scan CHLAMYDIA TRACHOMATIS (GENITO/STI) Neisseria gonorrhea DNA probe, direct Alpha fetoprotein, maternal POCT urinalysis dipstick manually resulted Follow Up: Patient is to return to our office in 4 weeks for routine OB appointment Documented by Tamy Juarez MA on behalf of: breana chapin documented in this encounter [facility] 05-09-2024 History of Present illness Narrative Reason [...] or undercooked meat, and stay away from [facility]. Patient has also been advised to not change litter boxes and eat 6 small meals a day. Patient has been consulted regarding the do's and don'ts of . Patient was given labs and all questions and concerns were answered. Patient given [facility] to have obtained. Patient declined [facility]. Prenatals sent into pharmacy. Follow Up: Patient [...] or undercooked meat, and stay away from [facility]. Patient has also been advised to not change litter boxes and eat 6 small meals a day. Patient has been consulted regarding the do's and don'ts of . Patient was given labs and all questions and concerns were answered. [facility], Declined [facility] and script for sent. Follow Up: Patient is to return in 2 weeks for routine OB appointment. Follow Up: Patient is to have labs drawn at directed and return to office for initial OB appointment with provider. Patient may call office as needed with any concerns or questions. Nurse Visit Completed by: Priscilla Ohara LPN documented in this encounter [facility] 01-09-2024 Evaluation + Plan note Diagnostic Tests PendingChlamydia/Gonococcus, TIM 01/09/24 [facility] 10-17-2023 Telephone encounter Note Abnormal labs [facility] 10-17-2023 Miscellaneous Notes Abnormal labs documented in this encounter [facility] 10-16-2023 History of Present illness Narrative Jordin yTler is a 18 y.o. female presents with [...] to take meds for it. Sofía from [facility] counseling and recovery is [...] 1.53)* * Growth percentiles are based on [facility] (Girls, 2-20 Years) data. Physical Exam General: [...] - CBC and differential; Future Bipolar depression ([facility]) - Ambulatory referral to Psychiatry; Future Anxiety - Ambulatory referral to Psychiatry; Future Attention deficit hyperactivity disorder (ADHD), combined type ([facility]) - Ambulatory referral to Psychiatry; Future PTSD (post-traumatic stress disorder) ([facility]) - Ambulatory referral to Psychiatry; Future History [...] Future Pt is to continue counseling at [facility]. Blood pressure looks good. documented in this encounter [facility] 09-12-2023 Note Discharge Instructio ns Given Worsening The following Patient Education Materials have been given to the patient: ~~ EducationMaterial [facility] 09-12-2023 Evaluation + Plan note [...] Headache, # 90 tab(s), Refills(s) 1, Pharmacy: [facility], 165.1, cm, 09/10/23 21:47:00 EDT, Height/Length Dosing, 84.5, kg, 09/10/23 21:47:00 EDT, Weight Dosing docusate, 100 mg = 1 cap(s), Oral, BID, # 30 cap(s), Refills(s) 1, Pharmacy: [facility], 165.1, cm, 09/10/23 21:47:00 EDT, Height/Length Dosing, 84.5, kg, 09/10/23 21:47:00 EDT, Weight Dosing ferrous sulfate, 325 mg = 1 tab(s), Oral, BIDWM, # 60 tab(s), Refills(s) 5, [facility], 165.1, cm, 09/10/23 21:47:00 EDT, [...] comment), # 60 tab(s), Refills(s) 1, Pharmacy: [facility], 165.1, cm, 09/10/23 21:47:00 EDT, [...] Insertion Place in Status Shower Vital Signs [facility] [id number] NoteGetWell Understands Education Yes GetWell Education Video How to Swaddle Safely GetWell Learning Participants [facility]08-07-2024 NoteGetWell Learning Participants Patient GetWell Understands Education Yes GetWell Education Video Caring for Yourself [facility] V[facility] NoteGetWell Education Video Caring for Your [place]: Sleeping GetWell Learning Participants Patient GetWell Understands Education [facility]08-07-2024 NoteGetWell Understands Education Yes GetWell Education Video Jaundice in Newborns GetWell Learning Participants [facility]08-07-2024 NoteGetWell Education Video Bathing Your Baby GetWell Learning Participants Patient GetWell Understands Education [facility]08-07-2024 NoteGetWell Understands Education Yes GetWell Education Video Caring for Your [place]: Feeding GetWell Learning Participants [facility]08-07-2024 NoteGetWell Education Video Using a Rubber Bulb to Clear a Baby's Nose GetWell Learning Participants Patient GetWell Understands Education [facility]08-07-2024 NoteGetWell Learning Participants Patient GetWell Education Video Safe Sleep for Babies GetWell Understands Education [facility]08-07-2024 NoteGetWell Education Video Understanding Depression GetWell Understands Education GetWell Learning [facility]2024 NoteGetWell Learning Participants Patient GetWell Understands Education Yes GetWell Education Video Ways to Keep Your Baby SafeEast [facility]08-07-2024 NoteGetWell Learning Participants Patient GetWell Understands Education Yes GetWell Education Video Car Seat SafetyEast [facility]08-07-2024 NoteGetWell Understands Education Yes GetWell Education Video Avoiding Infections in the Hospital GetWell Learning Participants [facility]08-07-2024 NoteGetWell Understands Education Yes GetWell Education Video How to Prevent Abusive Head Trauma GetWell Learning Participants [facility]08-07-2024 NoteGetWell Understands Education Yes GetWell Education Video Caring for Your [place]: Umbilical Cord GetWell Learning Participants [facility]08-07-2024 NoteDischarge Instructions Given Worsening The following Patient Education Materials have been given to the patient: ~~ [facility] NoteDischarge Summary Assessment/Plan Anemia affecting , [...] Headache, # 90 tab(s), Refills(s) 1, Pharmacy: [facility], 165.1, cm, 09/10/23 21:47:00 EDT, Height/Length Dosing, 84.5, kg, 09/10/23 21:47:00 EDT, Weight Dosing docusate, 100 mg = 1 cap(s), Oral, BID, # 30 cap(s), Refills(s) 1, Pharmacy: [facility] 1985,165.1, cm, 09/10/23 21:47:00 EDT, Height/Length Dosing, 84.5, kg, 09/10/23 21:47:00 EDT, Weight Dosing ferrous sulfate, 325 mg = 1 tab(s), Oral, BIDWM, # 60 tab(s), Refills(s) 5, Pharmacy: [facility], 165.1, cm, 09/10/23 21:47:00 [...] comment), # 60 tab(s), Refills(s) 1, Pharmacy: [facility], 165.1, cm, 09/10/23 21:47:00 [...] cord and intact placenta was delivered spontaneously. [id number] mL. Patient recovering and stable condition in [...] Details Baby A Delivery Type:Vaginal D-EGA at Fzestxob49 weeks 5 days Total Length of Labor:259 [...] Physician: Magalis Snow DO (more content not included)...[facility]: Result Comment: Electronically Signed By: Magalis Snow DO\.br\Date and Time Signed: 09/12/23 08:47 [id number] Hospital Discharge instructions Patient Education 09/11/2023 18:38:23 [...] , tell your health care provider or agricultural specialist. If you do not breastfeed: ?Avoid touching your breasts. Do not squeeze out (express) milk. Doing this can make your breasts produce more milk. ?Wear a bra that supports your breasts and fits well. Use cold packs to help with swelling. ?Talk to your health care provider about what gsyq-ygg-yztqnji medicines can help with pain. Intimacy and [...] control (contraception) or family planning. Medicines Take chgz-tfy-vltgfpj and prescription medicines only as told by your health care provider. Take an mkqy-ewt-fhemlbh stool softener to help ease bowel movements as told by your health care provider. If you were prescribed antibiotics, take them as told by your health care provider. Do not stop using the antibiotic even if you start to feel better. Review all previous and current prescriptions to check for the possible transfer into your breast milk. Ask your health care provider or agricultural specialist for help if needed. Activity Gradually [...] Services Office of Women's Health: womenshealth.gov [employer]: acog.org Contact [...] the National Suicide Prevention Lifeline at or 456. This is open 24 hours a day. Text the Crisis Text Line at 953944. Summary The period of time after you [...] provider. Document Revised: 05/10/2022 Document Reviewed: 04/25/2022 [employer] Patient Education 2022 [employer]. 09/11/2023 05:46:09 Anemia Anemia Anemia is a [...] spleen. Follow these instructions at home: Take jnyz-iwf-wtumihp and prescription medicines only as told by [...] provider. Document Revised: 04/17/2022 Document Reviewed: 04/17/2022 [employer] Patient Education 2022 [employer] Follow Up Care 09/10/2023 21:03:40 With:Magalis Snow Address: [address] [place] [address] [facility] (1) When:6 weeks [facility] 08-06-2024 NoteDischarge Instructions Given Worsening The following Patient Education Materials have been given to the patient: ~~ [facility] NoteProgress Note-Physician Patient: JORDIN TYLER Age: 18 years Sex: Female : 2005 Associated Diagnoses: None Author: Ra Casas Jr., DO Postoperative Information Postoperative disposition: Postoperative disposition: Day 2. Optimetrix number: Optimetrix number [id number]. Anesthetic utilized: Regional: Epidural. Physical Examination Hemodynamically stable. Pain Assessment: Controlled. General: Awake, Alert, Appropriate. Respiratory: Adequate air exchange. Cardiovascular: Stable. Neurological: Normal sensory function. Assessment Anesthetic outcome No post-epidural complications noted.. Review / Management Condition: Stable. Plan Transfer/Discharge: Stable for discharge from anesthetic standpoint..[facility]Comment on above:Result Comment: Electronically Signed By: Ra Casas Jr., DO\.br\Date and Time Signed: 09/11/23 07:10 [id number] NoteProgress Note-Physician Patient: JORDIN TYLER Age: 18 years Sex: Female : 2005 Associated Diagnoses: None Author: Ra Casas Jr., DO Chief Complaint Intrauterine Health Status Allergies: Allergic Reactions (All) No Known Allergies Canceled/Inactive Reactions (All) No Known Medication Allergies Current medications.Problem list: All Problems 37 weeks gestation of / SNOMED CT 09558113 / Confirmed ADHD (attention deficit hyperactivity disorder), combined type / SNOMED CT 93751137 / Confirmed Age mother conceived under 17 / Patient Care / Confirmed Encounter for supervision of normal first , third trimester / SNOMED CT 384703529 / Confirmed Infection / SNOMED CT 76779652 / Confirmed / SNOMED CT 631655091 / Confirmed Shortness of breath in pediatric patient / SNOMED CT 055082405 / Confirmed Very young maternal age, antepartum / SNOMED CT 603486329 / Confirmed Resolved: Acute gastroenteritis / SNOMED CT 445554151 resolved per patient Resolved: Acute low back pain due to trauma / SNOMED CT 885808087 resolved per patient Resolved: Blurry vision, left eye / SNOMED CT 358421043 resolved per patient Resolved: Chest pain / SNOMED CT 62579208 resolved per patient Resolved: Inspiratory stridor / SNOMED CT 327856739 Resolved: Post-traumatic stress syndrome / SNOMED CT 87774035 resolved per patient. Resolved: / SNOMED CT 312996354 Resolved: / SNOMED CT 344535212 Resolved: Strep pharyngitis / SNOMED CT 71909874 Resolved: Viral gastroenteritis / SNOMED CT 553939279 Resolved: Vomiting / SNOMED CT 6728643001 Canceled: None / SNOMED CT 090493690 Review of Systems Respiratory: Negative. Cardiovascular: Negative. [...] 30 minutes. The PCEA was started at 0145.[facility] HospitalComment on above:Result Comment: Electronically Signed By: Ra Casas Jr., DO.berkley\Date and Time Signed: 09/11/23 07:09 [id number] NoteHistory and Physical Reason for Visit OB [...] MethodExternal toco Cervical Cervix Dilation4.5 cm Cervix Hbxlndhupf66 Station Calculation-3 LMP/EGA/ALISHA Gestational Age (EGA) and [...] gastroenteritis Vomiting Procedure/Surgical History (more content not included)...[facility]Comment on above:Result Comment: Electronically Signed By: Magalis Snow DO\.br\Date and Time Signed: 09/11/23 01:31 [id number] Evaluation + Plan note Diagnostic Tests Pending * Group B Streptococcus colonization by PCR 09/05/23 [facility] 07-24-2024 Hospital Discharge instructions Patient Education 08/29/2023 16:59:58 Dehydration, Adult, Fyzo-ar-Tzvx Dehydration, Adult Dehydration is condition in which [...] of fat or sugar. General instructions Take mvna-wof-vicvnfz and prescription medicines only as told by [...] start slowly drinking other clear fluids. Take ifjp-lyu-gotpxez and prescription medicines only as told by your doctor. Get help right away if you have any symptoms of very bad dehydration. This information is not intended to replace advice given to you by your health care provider. Make sure you discuss any questions you have with your health care provider. Document Revised: 05/31/2022 Document Reviewed: 09/04/2019 [employer] Patient Education 2022 [employer]. Follow Up Care 08/29/2023 14:46:47 With:Magalis Snow Address: [address] [place] [id number] Business (1) When:09/05/2023 13:00:00 Comments:Call for any problems. [facility] 07-24-2024 Evaluation + Plan note Diagnostic Tests Pending * Urine Culture 08/29/23 [facility] 06-13-2024 Evaluation + Plan note Diagnostic Tests Pending * Urine Culture 07/19/23 [facility] [facility]24 NoteThe following Patient Education Materials have been given to the patient: EducationMaterialFisher [facility]06[facility] Hospital Discharge instructions Follow Up Care 07/19/2023 06:05:30 With:Magalis Snow Address: [address] [place] [address] Business (1) When:07/25/2023 Comments:Call for any problems.Call physician if symptoms worsenReturn for contractions closer, longer, harderReturn for decreased movementReturn if ruptured membranes or vaginal bleeding [facility]06[facility]03[facility] Evaluation + Plan note Diagnostic Tests Pending * Hepatitis B Surface Antigen 07/09/23 * RPR with Conf Rfx 07/09/23 * HIV Screen 4th Generation wRfx 07/09/23 * Urine Culture 07/09/23 [facility]02-13-2024 History of Present illness Narrative* Kourtney [...] when she fell down some stairs at [place]. No fx. Not sure how long she [...] for a routine visit. documented in this [facility]02-08-2024 History of Present illness Narrative* Miryam [...] genetic and chromosomal testing documented in this [facility]01-09-2024 Hospital Discharge instructions Patient Education 02/13/2023 [...] products, such as yogurt. General instructions Take ynne-far-qctkdjy and prescription medicines only as told by [...] provider. Document Revised: 10/06/2021 Document Reviewed: 10/06/2021 [employer] Patient Education 2022 [employer] 02/13/2023 17:17:01 Urinary Tract Infection, Adult, Dgdc-ks-Tlmy Urinary Tract Infection, Adult A urinary tract [...] Follow these instructions at home: Medicines Take sdnf-izr-xzicopf and prescription medicines only as told by [...] provider. Document Revised: 09/03/2020 Document Reviewed: 09/03/2020 [employer] Patient Education 2022 [employer]. 02/13/2023 17:16:58 Hyperemesis Gravidarum Hyperemesis Gravidarum Hyperemesis [...] or daniel tea. Taking prescription medicine or pamg-hpr-svkzazs medicine as told by your health care [...] sour. These include lemonade, daniel brittanie, lemon kotlik soda, ice water, and sparkling water. Things [...] your appetite or trigger nausea. General instructions [place] your teeth or use a mouth rinse after meals. Take whhw-xwk-rjrdbwq and prescription medicines only as told by [...] provider. Document Revised: 08/16/2020 Document Reviewed: 08/16/2020 [employer] Patient Education 2022 [employer]. Follow Up Care 02/13/2023 14:16:46 With:Paul CASE, TASHI Bojorquez Address: [facility] [address], [address] [address]- When:2 to 4 days [facility]01-09-[facility]24 Evaluation + Plan note Diagnostic Tests Pending * Urine Culture 02/13/23 [facility]12-22-2023 Hospital Discharge instructions Patient Education 01/26/2023 [...] Follow these instructions at home: Medicines Take jigl-kul-spsrgxs and prescription medicines only as told by your health care provider. Do not use any prescription, yovq-wam-jvfstwt, or herbal medicines for morning sickness without [...] provider. Document Revised: 09/06/2020 Document Reviewed: 08/16/2020 [employer] Patient Education 2022 [employer]. 01/26/2023 21:19:18 Nausea and Vomiting, Adult, Tunl-sy-Dbgw Nausea and Vomiting, Adult Nausea is feeling [...] fruit juice). ?Low-calorie sports drinks. Eat bland, hsyg-to-qfhhga foods in small amounts as you are able, such as: ?Bananas. ?Applesauce. ?Rice. ?Low-fat (lean) meats. ?Sulphur. ?Crackers. Avoid drinking fluids that have a lot of sugar or caffeine in them. This includes energy drinks, sports drinks, and soda. Avoid alcohol. Avoid spicy or fatty foods. General instructions Take bjmk-xpe-sackrko and prescription medicines only as told by your doctor. Drink enough fluid to keep your pee (urine) pale yellow. Wash your hands often with soap and water for at least 20 seconds. If you cannot use soap and water, use hand tracer powder blender. Make sure that everyone in your home [...] your doctor about eating and drinking. Take bkdv-rar-zvhjywk and prescription medicines only as told by your doctor. Contact your doctor if your symptoms get worse or you have new symptoms. Keep all follow-up visits. This information is not intended to replace advice given to you by your health care provider. Make sure you discuss any questions you have with your health care provider. Document Revised: 07/29/2021 Document Reviewed: 07/29/2021 [employer] Patient Education 2022 [employer]. Follow Up Care 01/26/2023 19:06:29 With:Ras Miller Address: [facility] [address] [place] [phone] Business (1) When:01/29/2023 21:05:41 Comments:Follow-up with your primary care provider in 3 to 5 days. If symptoms worsen, do not improve, or new symptoms arise please report back to emergency department for further evaluation. With:[place] Address:Unknown When:Within 3 Day(s) [facility]12-22-2023 Evaluation + Plan noteExtracted from: Title:ED Note Author:Renny ROBERT, Donavan Olivia te:01/26/23 Nausea and vomiting during p regnancy [...] Diagnostic Tests Pending * Urine Culture 01/26/23 [facility]12-19-2023 Hospital Discharge instructions Patient Education 01/23/2023 [...] water added (diluted fruit juice). Eat bland, eklz-da-jiabhr foods in small amounts as you are able. These foods include bananas, applesauce, rice, lean meats, toast, and crackers. Avoid fluids that contain a lot of sugar or caffeine, such as energy drinks, sports drinks, and soda. Avoid alcohol. Avoid spicy or fatty foods. General instructions Take irks-okg-rgpuqsr and prescription medicines only as told by your health care provider. Drink enough fluid to keep your urine pale yellow. Wash your hands often using soap and water for at least 20 seconds. If soap and water are not available, use hand tracer powder blender. Make sure that everyone in your household [...] eating and drinking to prevent dehydration. Take mfxn-hkz-xxbruzg and prescription medicines only as told by [...] provider. Document Revised: 07/29/2021 Document Reviewed: 07/29/2021 [employer] Patient Education 2022 [employer]. Follow Up Care 01/23/2023 11:32:50 With:Ras Miller Address: [facility] [address], [address] [address] Business (1) When:01/26/2023 17:40:04 [facility]12-19-2023 Evaluation + Plan noteExtracted from: Title:ED [...] UA With Cult Reflex US 1st Trimester [facility]11-27-2023 NoteInfectious Disease COVID-19 COVID-19, or coronavirus [...] managed at home with rest, fluids, and whcy-vju-rpdumqo medicines. ? Serious symptoms may be treated [...] condition. ? You should (more content not included)...[facility]11-27-2023 Evaluation + Plan note Diagnostic Tests Pending * Group A Strep by PCR 01/01/23 [facility]11-03-2023 Hospital Discharge instructions Patient Education 12/08/2022 [...] provider. Document Revised: 10/25/2020 Document Reviewed: 10/25/2020 [employer] Patient Education 2022 [employer]. Follow Up Care 12/07/2022 22:59:47 With:Cara Bullard Address: [address], [place] , [address] [address] [facility] (1) When:12/10/2022 Comments:Few concerns about continued can take up test at home in approximately 1 week. Please follow-up with your primary care doctor next 2 to 3 days. Please return to the ED for any newor worsening symptoms. With:XXXX NONE Address: [place] When:Within 3 Day(s) [facility]11-02-2023 Evaluation + Plan noteExtracted from: Title:ED Note Author:Damaris Jean Baptiste DO Date :12/07/22 Encounter for medical screen ing examination (Z13.9: Encounter for screening, unspecified) Orders: U Beta Hcg Qual UA With Cult Reflex Urine Culture [facility]09-25-2023 Hospital Discharge instructions Patient Education 10/30/2022 11:19:02 Dental Pain, Redv-dp-Ehgg Dental Pain Dental pain is often a [...] Follow these instructions at home: Medicines Take icjm-psh-xlnwxqz and prescription medicines only as told by [...] damage to the area. Brushing your teeth [place] your teeth twice a day using a [...] only when you eat or drink. Take dfde-ebf-zfdghuw and prescription medicines only as told by your dentist. Watch your dental pain for any changes. Let your dentist know if symptoms get worse. This information is not intended to replace advice given to you by your health care provider. Make sure you discuss any questions you have with your health care provider. Document Revised: 10/27/2020 Document Reviewed: 10/27/2020 [employer] Patient Education 2022 [employer]. Follow Up Care 10/30/2022 10:44:51 With:Dental: [facility] [phone] Address:Unknown When:11/02/2022 11:12:14 [email or web address] [phone] Address:Unknown When:11/02/2022 11:12:13 With:Dental: [facility] [phone] Address:Unknown When:11/02/2022 11:12:13 [facility]07-07-2023 NoteDATE OF DISCHARGE: 08/10/2022 The patient [...] of a 6 pound 1 ounce female with Apgars of 8 and 9, nuchal cord reduced x2, otherwise without complications. Course: Without complications. Ras Miller M.D. Dictated: 08/10/2022 [id number] Transcribed: 08/10/2022[facility]:Result Comment: Electronically Signed By: Paul CASE, Ras Radford\.br\Date and Time Signed: 08/11/22 08:18 [id number] NoteThe following Patient Education Materials have been given to the patient: [facility] Evaluation + Plan note Extracted from: Title:OB [...] Plan Labor epidural at request of patient.. [facility]07-03-2023 Hospital Discharge instructions Follow Up Care 08/07/2022 06:16:53 With:Eduardo Bee Address: [address] [place] [phone] [facility] (1) When:6 weeks Comments:Call Dr if fever>100.5 F, heavy bleedingCall for any problems. [facility]06-30-2023 NoteThe following Patient Education Materials have been given to the patient: EducationMaterialFisher [facility]06-30-2023 Hospital Discharge instructions Follow Up Care 08/04/2022 10:54:12 With:Eduardo Bee Address:Unknown When:1 week Comments:Appointment has already been scheduledCall for any problems.Call for severe abdominal painCall physician if symptoms worsenReturn for contractions closer, longer, harderReturn for decreased movementReturn if ruptured membranes or vaginal bleeding [facility]12-14-2022 Evaluation + Plan noteExtracted from: Title:ED [...] Nausea/Vomiting, # 20 tab(s), Refills(s) 0, Pharmacy: [facility] #[id number], 165.1, cm, 01/18/22 1:14:00 EST, Height/Length Dosing, 74.4, kg, 01/18/22 1:14:00 EST, Weight Dosing ondansetron, 4 mg = 2 mL, Injection, IV Push, Once, Stop date 01/18/22 1:21:00 EST, STAT, Start date 01/18/22 1:21:00 EST, 01/18/22 1:21:00 EST Add on Test Basic Metabolic Panel Beta hCG Quantitative eGFR Rapid COVID Antigen ([facility]) UA With Cult Reflex US 1st Trimester [facility]12-14-2022 Hospital Discharge instructions Patient Education 01/18/2022 [...] Move your 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 Avoid heavy [...] disease or chickenpox. You are exposed to Ivorian measles (rubella) and have never had it. [...] 01/16/2002 Document Revised: 01/04/2018 Document Reviewed: 01/03/2017 [employer] Patient Education 2020 [employer] Follow Up Care 01/18/2022 00:46:10 With:Ras Miller Address: [facility] [address], [place] [phone] [facility] (1) When:01/21/2022 [facility]12-01-2022 Hospital Discharge instructions Patient Education 01/05/2022 [...] Treatment for this condition includes: Antibiotic medicine. Ycvj-zcy-hktvpix medicines to treat discomfort. Drinking enough water [...] Follow these instructions at home: Medicines Take vwoz-agr-cgdpadf and prescription medicines only as told by [...] 11/01/2005 Document Revised: 01/09/2019 Document Reviewed: 08/01/2018 [employer] Patient Education 2020 [employer]. 01/05/2022 12:47:03 Nausea and Vomiting, Adult Nausea [...] water added (diluted fruit juice). Eat bland, fgvl-nb-mbuefc foods in small amounts as you are able. These foods include bananas, applesauce, rice, lean meats, toast, and crackers. Avoid fluids that contain a lot of sugar or caffeine, such as energy drinks, sports drinks, and soda. Avoid alcohol. Avoid spicy or fatty foods. General instructions Take cpgc-hws-ehyakfq and prescription medicines only as told by your health care provider. Drink enough fluid to keep your urine pale yellow. Wash your hands often using soap and water. If soap and water are not available, use hand tracer powder blender. Make sure that all people in your [...] eating and drinking to prevent dehydration. Take zalv-mfy-skhafkz and prescription medicines only as told by [...] 01/22/2006 Document Revised: 05/16/2019 Document Reviewed: 07/02/2018 [employer] Patient Education 2020 [employer]. Follow Up Care 01/05/2022 07:49:33 With:Ras Miller Address: [address] [place] [address] [address] Business (1) When:01/08/2022 10:01:01 With:Vijay PACHECO Address: [address] [place] [address] Business (1) When:01/08/2022 10:00:58 [facility]12-01-2022 Evaluation + Plan noteExtracted from: Title:ED Note Author:Colby Ayers PA-C te:01/05/22 Nausea and vomiting (R11.2: Nausea with vomiting, unspecified) UTI in (O23.40: Unspecified infection of urinary tract in , unspecified trimester) Orders: cephalexin, 500 mg = 1 cap(s), Oral, q12hr, X 7 day(s), # 14 cap(s), Refills(s) 0, Pharmacy: [facility] #[id number], 165, cm, 01/05/22 7:56:00 EST, Height/Length Dosing, [...] TID, # 15 tab(s), Refills(s) 0, Pharmacy: [facility] #[id number], 165, cm, 01/05/22 7:56:00 EST, Height/Length Dosing, 74.1, kg, 01/05/22 7:56:00 EST, Weight Dosing Diagnostic Tests Pending * Urine Culture 01/05/22 [facility]11-28-2022 Hospital Discharge instructions Patient Education 01/02/2022 14:19:40 Nausea and Vomiting, Adult, Xqfq-wz-Bvwt Nausea and Vomiting, Adult Nausea is feeling [...] fruit juice). ?Low-calorie sports drinks. Eat bland, umyd-sy-vhgard foods in small amounts as you are able, such as: ?Bananas. ?Applesauce. ?Rice. ?Low-fat (lean) meats. ?Sulphur. ?Crackers. Avoid drinking fluids that have a lot of sugar or caffeine in them. This includes energy drinks, sports drinks, and soda. Avoid alcohol. Avoid spicy or fatty foods. General instructions Take dybj-vzy-boqhags and prescription medicines only as told by your doctor. Drink enough fluid to keep your pee (urine) pale yellow. Wash your hands often with soap and water. If you cannot use soap and water, use hand tracer powder blender. Make sure that all people in your [...] too much water in your body. Take iqxy-mcf-bljntds and prescription medicines only as told by [...] 07/10/2008 Document Revised: 05/16/2019 Document Reviewed: 07/02/2018 [employer] Patient Education 2020 [employer]. 01/02/2022 14:19:40 Care Care care is health care during . It helps you and your unborn baby (fetus) stay as healthy as possible. care may be provided by a mental health technician, a family practice health care provider, or a childbirth and specialist (friction saw operator). How does this affect me? During , [...] or procedures you have had. ?Any current kxqr-pod-ghmonzv or prescription medicines, herbs, or supplements you [...] more information Office on Women's Health: womenshealth.gov Afghan Association: americanpregnancy.org March of Dimes: marchofdimes.org Summary [...] 2004 Document Revised: 05/14/2019 Document Reviewed: 01/21/2018 [employer] Patient Education 2020 [employer] Follow Up Care 01/02/2022 12:36:12 With:Ras Miller Address: [address], [facility] [address] [place] [address]- Business (1) When:01/05/2022 14:06:25 Comments:Follow-up with Dr. Miller for further evaluation of your . With:Holli Moctezuma Address: [address] [place] [address]- Business (1) When:01/05/2022 14:06:17 Comments:Follow-up with your primary care provider in 3 to 5 days. If symptoms worsen, do not improve, or new symptoms arise please report back to emergency department for further evaluation. [facility]11-28-2022 Evaluation + Plan noteExtracted from: Title:ED Note Author:Donavan Lawson PA-C te:01/02/22 Nausea and/or vomiting (R11. 2: Nausea with vomiting, unspecified) (Z34.90: Encounter for supervision of normal , unspecified, unspecified trimester) Orders: metoclopramide, 5 mg = 1 tab(s), Oral, q6hr, X 7 day(s), # 28 tab(s), Refills(s) 0, Pharmacy: [facility] #[id number], 165, cm, 10/16/21 20:16:00 EDT, Height/Length Dosing, [...] Lipase Level Morphology UA With Cult Reflex [facility]09-11-2022 Hospital Discharge instructions Patient Education 10/16/2021 [...] discomfort that you are feeling: Medicines Take uwqn-wlz-oalddol and prescription medicines only as told by [...] if directed by your health care provider. [place] your teeth with a soft-bristled toothbrush. General [...] pain may be mild or severe. Take sque-kuw-tryuzdv and prescription medicines only as told by [...] 01/22/2006 Document Revised: 05/20/2019 Document Reviewed: 12/13/2017 [employer] Patient Education 2020 [employer] 10/16/2021 21:36:36 Dental Caries, Adult Dental [...] is this prevented? To prevent dental caries: [place] your teeth every morning and night with [...] 10/14/2002 Document Revised: 01/04/2018 Document Reviewed: 08/04/2016 [employer] Patient Education 2020 [employer] Follow Up Care 10/16/2021 20:06:09 With:Dental: [facility] [phone] Address:Unknown When:10/19/2021 21:25:41 With:Dental: [facility] [phone] Address:Unknown When:10/19/2021 21:25:40 With:Dental: [facility] [phone] Address:Unknown When:10/19/2021 21:25:39 [facility]08-10-2022 Evaluation + Plan noteExtracted from: Title:ED Note Author:Colby Ayers PA-C te:09/14/21 Pain, dental (K08.89: Other specified disorders of teeth and supporting structures) Orders: naproxen, 500 mg = 1 tab(s), Oral, BID, # 20 tab(s), Refills(s) 0, Pharmacy: [facility]/pharmacy #[id number], 165.1, cm, 06/07/21 7:55:00 EDT, Height/Length Dosing, 83.6, kg, 06/07/21 7:55:00 EDT, Weight Dosing penicillin V potassium, 500 mg = 1 tab(s), Oral, TID, Take one tab by mouth 3 times a day. # 30, X 10 day(s), # 30 tab(s), Refills(s) 0, Pharmacy: [facility]/pharmacy #[id number], 165.1, cm, 06/07/21 7:55:00 EDT, Height/Length Dosing, 83.6, kg, 06/07/21 7:55:00 EDT, Weight Dosing [facility]08-10-2022 Hospital Discharge instructions Patient Education 09/14/2021 [...] discomfort that you are feeling: Medicines Take pshz-vnb-kxhqqyj and prescription medicines only as told by [...] if directed by your health care provider. [place] your teeth with a soft-bristled toothbrush. General [...] pain may be mild or severe. Take mnrb-myu-pggvinu and prescription medicines only as told by [...] 01/22/2006 Document Revised: 05/20/2019 Document Reviewed: 12/13/2017 [employer] Patient Education 2020 [employer]. Follow Up Care 09/14/2021 08:05:08 With:Dental: [facility] [phone] Address:Unknown When:09/17/2021 08:10:39 [facility] [phone] Address:Unknown When:09/17/2021 08:10:38 With:Dental: [facility] [phone] Address:Unknown When:09/17/2021 08:10:37 [facility]05-04-2022 Evaluation + Plan noteExtracted from: Title:OB Inpatient Progress note Auth or:Paul CASE, Ras Radford Date:06/08/21 Impression and Plan Plan Routine care. Course: Progressing as expected. [facility]05-03-2022 Hospital Discharge instructions Follow Up Care 06/07/2021 07:07:01 With:Dr. Miller [phone] Address:Unknown When:6 weeks Comments:Call for any problems.Call for fever > 100.5 FCall for severe abdominal painCall physician for heavy vaginal bleedinNothing in the vagina for 6 weeksCall for 6 week appt [facility]04-18-2022 Evaluation + Plan note Diagnostic Tests Pending * Group B Streptococcus colonization by PCR [facility]/23[facility]21 [facility]* Diagnosis Supervision of normal intrauterine [...] [facility]No assessment information [facility] Work Phone: Evaluation note* Diagnosis Missed [...] (HHS-HCC) state, incidental 28 weeks gestation of (HHS-HCC) SGA (small for gestational age) (HHS-HCC) Fvrhs-hlf-krnzs without mention of malnutrition, unspecified (weight) [facility]* Diagnosis Encounter for follow-up ultrasound of anatomy- Primary [facility] Diagnosis Right otitis media, unspecified otitis media type- Primary Third trimester (HHS-HCC) state, incidental 30 weeks gestation of (HHS-HCC) SGA (small for gestational age) ([facility]-HCC) Gxvhy-wed-ljxrg without mention of malnutrition, unspecified (weight) [facility]* Diagnosis Third trimester (HHS-HCC) state, incidental 32 weeks gestation of (HHS-HCC) [facility] Narrative No data available for this section [facility] No data available for this section [facility] HospitalInstructionsNot on filedocumented in this encounter [facility]Not on filedocumented in this encounter [facility]ructionsNot on filedocumented in this encounter [facility] No data available for this section [facility] (narrative)* Consultation (Routine) - Authorized Specialty Diagnoses / Procedures Referred By Contac t Referred To Contact Dermatology Diagnoses Skin lesion of left arm Procedures [place] OFFICE/OUTPATIENT NEW HIGH MDM 60 MINUTES Mak Jordan NP [address] [place] [address] Referral ID Status Reason Start Date Expiration Date Visits Requested Visits Authorized [id number] Authorized Specialty Services Required 10/16/2023 04/13/2024 1 1 * Consultation (Routine) - Pending Review Specialty Diagnoses / Procedures Referred By Contac t Referred To Contact Psychiatry Diagnoses Bipolar depression ([facility]/HCC) Anxiety Attention deficit hyperactivity disorder (ADHD), combined type (CMS/HCC) PTSD (post-traumatic stress disorder) ([facility]) Procedures [place] OFFICE/OUTPATIENT NEW HIGH MDM 60 MINUTES Mak Jordan NP [address] [place] [address] Referral ID Status Reason Start Date Expiration Date Visits Requested Visits Authorized [id number] Pending Review Specialty Services Required 10/16/2023 04/13/2024 [...] CREATED AUTHOR AUTHOR'S ORGANIZ ATION 07/10/2023 [facility] DATE CREATED AUTHOR AUTHOR'S ORGANIZ ATION 07/12/2023 [facility] DATE CREATED AUTHOR AUTHOR'S ORGANIZ ATION 07/20/2023 [facility] DATE CREATED AUTHOR AUTHOR'S ORGANIZ ATION 07/21/2023 [facility] DATE CREATED AUTHOR AUTHOR'S ORGANIZ ATION 07/27/2023 [facility] DATE CREATED AUTHOR AUTHOR'S ORGANIZ ATION 09/08/2023 [facility] DATE CREATED AUTHOR AUTHOR'S ORGANIZ ATION 09/12/2023 [facility] DATE CREATED AUTHOR AUTHOR'S ORGANIZ ATION 09/14/2023 [facility] DATE CREATED AUTHOR AUTHOR'S ORGANIZ ATION 09/15/2023 [facility] DATE CREATED AUTHOR AUTHOR'S ORGANIZ ATION 09/21/2023 [facility] DATE CREATED AUTHOR AUTHOR'S ORGANIZ ATION 04/03/2024 [facility] DATE CREATED AUTHOR AUTHOR'S ORGANIZ ATION 07/04/2024 [facility] DATE CREATED AUTHOR AUTHOR'S ORGANIZ ATION 07/24/2024 [facility] DATE CREATED AUTHOR AUTHOR'S ORGANIZ ATION 08/23/2024 [facility] Patient Care team informatio n (unrecognized section and content) Personnel Name: NONE, XXXX Address: [facility] Name: KARI YOUNGANDREAKourtney Address: [address] [facility], [address] [address] Telecom: [employer] Tender Relationship Specialty Start Date End Date Sadie Thomas MD [address] [place] [address] PCP - General Family Medicine 10/22/23 Mak Jordan NP [address] [place] [address] Nurse Practitioner Family Medicine 10/22/23 Team Status: [...] April 01, 2024 End: April 01, 2024 Soaping Machine Back Tender Relationship Specialty Start Date End Date Unallocated, Fozia Domingo MD Edith [facility] [address] PCP - General 07/19/22 Soaping Machine Back Tender Relationship Specialty Start Date End Date Unallocated, [place] [address] PCP - General 07/19/22 Personnel Name: LLC, GENERIC Name: Kourtney LEMONS Address: Address: [address] [place], [place] [address], [facility] [address] Personnel Name: NONE, XXXX Address: Address: [place] Name: Kourtney LEMONS Address: Address: [facility] [employer], [facility] [address] Personnel Name: Vijay PACHECO MD Address: Address: [address] [place] [address] Personnel Name: Holli Moctezuma DO Address: Address: [address] [place] [address] Nick, [address]ld[address], Lucas [address] Reason for Visit (unrecogniz ed section [...] BE BASED ON THE PRIMARY CLINICAL RECORDS. [facility]. provides no warranty or guarantee of the accuracy or completeness of information in this document.
[2024-08-26 02:04] VITALS: BP 125/58; PULSE 81
== END 2024-08-26 03:45 | disposition home or self-care (01) ==
PROVIDERS: Admitting Provider Obstetrics & Gynecology; Visit Provider Obstetrics & Gynecology
DX: Z03.71 Encounter for suspected problem with amniotic cavity and membrane ruled out (principal)
CPT/HCPCS: 59025; 84112; G0378; G0379

== ENCOUNTER 2024-08-28 09:29 | Outpatient (OUT) | payer MEDICAID, SELFPAY ==
--- OUTSIDE RECORDS SUMMARY | 2008-06-26 06:00 | XMS_ITS | Continuity of Care Document ---
Author Organization [facility] Address [address] [place] [address] Phone Care Team Providers Care Housekeeper Cleaning Cooking Name Role Phone Eunice GABRIEL Mitch Unavailable Unavailable Procedures Procedure Date OFFICE/OUTPATIENT VISIT, [facility] DTAP VACCINE, < 7 YRS, IM MMR VACCINE, [place] POLIOVIRUS, IPV, SC/IM CHICKEN POX VACCINE, [place] Advance Directives Directive Yes / No Effective Date File Name No Information Encounters Encounter Description Practice Location Reason(s) For Visit Diagnoses Date Provider Providers Copied on Encounter OFFICE/OUTPATI ENT VISIT, [facility] [place], [address] [place], [place], [id number], [place] tel:[phone] [facility] No Information Eunice Cox. [address] [place], [place], [id number], [place]. tel:[phone] Family History Family Member Type Diagnosis Age At Onset No Information Payers Payer name Insurance type Covered democrat ID Authoriza tion(s) No Information Social History [...]
--- OUTSIDE RECORDS SUMMARY | 2024-03-20 09:00 | XMS_ITS ---
Author Organization [facility] Address [address] [facility] [place] [address] Care Team Providers Care Southeast Regional Sales Manager Name Role Phone Soraida Sandy Primary Care Provider Brenna Turner [phone] REASON FOR VISIT FILLING Encounters Encounter Location Date Provider Diagnosis [facility] [address] [facility] [place] [address] 03/20/2024 Brenna Turner Plan Of Treatment No Information Progress Notes * ESTHER TYLEROB: 4 (19 yo F)Acc No.[id number]:03/20/2024 Patient: JORDIN ROWAN Provider: Andrea Turner :2005 A ge:19 Y S ex:Female Date:03/20/2024 Address:[address] [place] [address] [facility] [id number] Pcp:Soraida Frausto Subjective: * Chief Complaints: * 1 . FILLING. * Medical History: Objective: * Vitals: Assessment: Plan: * Treatment: * Images: * Electronic signature of Eliu Turner DMD on 08/28/2024 at 09:33 AM EDT Sign off status: Pending * Provider: Andrea Turner Date: 0 03/20/2024 Generated for Cornelio edwards/Heather/eTransmitting on: 0 08/28/2024 09:33 AM EDT
--- OUTSIDE RECORDS SUMMARY | 2024-04-01 05:45 | XMS_ITS ---
Author Organization [facility] Address [address] [facility] [place] [address] Care Team Providers Care Calliope Player Name Role Phone Soraida Sandy Primary Care Provider Chelsi Grijalva [phone] REASON FOR VISIT PROPHY NO HYG HX SINCE 2021, GEN DECAY Encounters Encounter Location Date Provider Diagnosis [facility] [address] [place] [address] 04/01/2024 Chelsi Grijalva Plan Of Treatment No Information Progress Notes * JAYSON JOSEEDOB: 4 (19 yo F)Acc No.[id number]:04/01/2024 Patient: JORDIN ROWAN Provider: Sergio Grijalva :2005 A ge:19 Y S ex:Female Date:04/01/2024 [facility] Pcp:Soraida Frausto Subjective: * Chief Complaints: * 1 . PROPHY NO HYG HX SINCE 2021, GEN DECAY. * Medical History: Objective: * Vitals: Assessment: Plan: * Treatment: * Images: * Electronic signature of Cookie Grijalva on 08/28/2024 at 09:32 AM EDT Sign off status: Pending * Provider: Sergio Grijalva Date: 04/01/2024 Generated for Printi ng/Faxing/eTransmitting on: 0 08/28/2024 09:32 AM EDT
--- OUTSIDE RECORDS SUMMARY | 2024-07-14 07:00 | XMS_ITS ---
Author Organization [facility] es Address [address] [place] [address] Care Team Providers Care District Manager Name Role Phone Soraida Sandy Primary Care Provider Dr. Carrillo Alegre [facility] [phone] REASON FOR VISIT FILLING Encounters Encounter Location Date Provider Diagnosis [address] [facility]CH[facility]ER[facility] [place] [address] 2024 Carrillo Alegre Plan Of Treatment No Information Progress Notes * JAYSON JOSEEDOB: 4 (19 yo F)Acc No.[id number]:07/14/2024 Patient: JORDIN ROWAN Provider: Andrea Alegre DDS :2005 A ge:19 Y S ex:Female Date:07/14/2024 Address:[facility] [place] [facility]-[address] Pcp:Soraida Frausto Subjective: * Chief Complaints: * 1 . FILLING. * Medical History: Objective: * Vitals: Assessment: Plan: * Treatment: * Images: * Electronic signature of Dr. Carrillo Alegre , DMD on 08/28/2024 at 09:33 AM EDT Sign off status: Pending * Provider: Andrea Alegre DDS Date: 07/14/2024 Generated for Printi ng/Faxing/eTransmitting on: 08/28/2024 09:33 AM EDT
--- OUTSIDE RECORDS SUMMARY | 2024-08-19 13:50 | XMS_ITS | Encounter Summary ---
Author Organization [facility] Address [address] [place] [address] Care Team Providers Care Needle Board Repairer Name Role Phone Sadie Thomas MD Primary Care Provider [phone] Katharine Olivarez NP Unavailable [phone] Reason for Visit * Reason Comments Routine Visit Encounter Details Date Type Department Care Team (Late st Contact Info) Description 08/19/2024 1:50 PM EDT Routine [facility] BCP OB [address] [place] [address] Jerry Wilson, DO [address] [place] [address] Third trimester ([facility]); 32 weeks gestation of ([facility]) Social History Tobacco Use Types Packs/Day [...] often do you attend chur ch or christianity services? Never 03/15/2023 Do you belong to any clubs o r organizations such as holiness groups, unions, fraternal or athletic groups, or [...] Patient Health Questionnaire-2 Score 0 03/15/2023 [facility] of Occupat ional [facility] - Occupational Stress Questionnaire Answer Date [...] Sign Reading Time Taken Comments Blood Pressure 120/60 08/19/2024 1:51 PM EDT Pulse - - Temperature - - Respiratory Rate - - Oxygen Saturation - - Inhaled Oxygen Concentration - - Weight 80.3 kg (177 lb) 08/19/2024 1:51 PM EDT Height - - Body Mass Index 30.38 10/16/2023 2:13 PM EDT documented in this encounter Progress Notes * Tavia Moeller LPN - 08/19/2024 1:50 PM EDT Reason for Appointment: Patient ID: Karla [...] nursing note reviewed. Exam conducted with a martial arts instructor present. Vitals: Estimated body mass index is 30.38 kg/m?? as calculated from the following: Height as of 24: 5' 4 . Weight as of this encounter: 177 lb. BP: 120/60 Patient's last menstrual period was 02/23/2024. ASSESSMENT & PLAN ICD-10-CM 1. Third trimester ([facility]) Z34.93 POCT urinalysis dipstick manually resulted 2. 32 weeks gestation of ([facility]) Z3A.32 Return OB: Patient presents today for a routine obstetrics appointment. Patient is currently 32w2d . Patient states she is doing well but has complaints of being tired due to current . Patient has verbalizes frequent movement. labor precautions was discussed/given and patient was instructed to perform kick counts three times a day. Pt states she is driving to [place] in 2 weeks for a in the family. Gave precautions will return prior to leaving. Orders Placed This Encounter Procedures POCT urinalysis dipstick manually resulted Follow Up: Patient is to return to office in 2 week for routine OB appointment. Documented by Tavia Moeller LPN on behalf of: Holli Roque PA-C documented in this encounter Plan of Treatment Upcoming Encounters Date Type Department Care Team (Late st Contact Info) Description 09/02/2024 10:00 AM EDT Routine [facility] BCP OB [address] [facility] [place] [address] Jerry Wilson, DO [address] [place] [address] documented as of this encounter Procedures Procedure Name Priority Date/Time Associated Diagnosis Comments POCT URINALYSIS DIPSTICK Routine 08/19/2024 1:58 PM EDT Third trimester ([facility]) documented in this encounter Results * POCT urinalysis dipstick manually resulted (08/19/2024 1:58 PM EDT) Color, UA Yellow Clarity, UA Clear Glucose, UA Negative Negative - 1999(110) ++++ mg/dL Bilirubin, UA Negative Negative - 4(70) +++ mg/dL Ketones, UA Negative Negative - 160(16) ++++ mg/dL Spec Grav, UA 1.010 1 - 1.03 Blood, UA Negative Negative - 50 Eliseo/mcL pH, UA 7.0 5 - 9 Protein, UA Negative Negative - 1999(20) ++++ mg/dL Urobilinogen, UA 0.2 0.2 - 12 mg/dL Leukocytes, UA Negative Negative - 500+++ Jeremias/mcL Nitrite, UA Negative Negative - Positive Urine 08/19/2024 1:58 PM EDT Jerry Wilson DO POINT OF CARE TEST ENTER/EDIT OR DERABLES Final Result documented in this encounter Visit Diagnoses Diagnosis Third trimester ([facility]) state, incidental 32 weeks gestation of ([facility]) documented in this encounter Care Teams Needle Board Repairer Relationship Specialty Start Date End Date Sadie Thomas MD [address] [place] [address] PCP - General Family Medicine 10/22/23 Katharine Olivarez NP [address] [place] [address] Nurse Practitioner Family Medicine 10/22/23 documented as of this encounter
--- OUTSIDE RECORDS SUMMARY | 2024-08-28 09:34 | XMS_ITS | Clinical Summary ---
Author Organization [facility] tem Address [id number] [address] [place] [address] Care Team Providers Care Etcher Photoengraving Name Role Phone Unavailable Primary Care Provider Unavailabl e Allergies Active Allergy Reactions Criticality Noted Date Comments Amoxicillin 07/21/2024 Metoclopramide Hcl 07/21/2024 Medications [id number] c acid ( 19) 29 mg iron- [...] - 07/22/2024 11:59 PM EDT Hospital Encounter [facility] US Imaging [address] [place] [phone] Abnormal ultrasound Discharge Disposition: Home 07/22/2024 Orders Only Maternal- Medicine at [facility] [address] [place] [phone] Nely Sheldon, RN Encounter for follow-up ultrasound of anatomy (Primary Dx) 07/22/2024 Travel 07/21/2024 Abstract Maternal- Medicine at [facility] [address] [place] [phone] External, Scanning Provider 07/21/2024 Orders Only Maternal- Medicine at [facility] [address] [place] [phone] Chelsi Box RN Abnormal ultrasound (Primary Dx) [...] Info) Description 09/03/2024 11:00 AM EDT Appointment [facility] US Imaging [address] [place] [phone] Health Maintenance Due Date Last Done Comments Chlamydia Screening 2004 Depression Screening 2016 Tobacco Screening 2016 Adult BMI Screening 01/06/2022 DTaP,Tdap and Td Vaccines (1 - Tdap) 01/06/2023 Influenza Vaccine 10/06/2024 Medical Devices Not on file Procedures Procedure Name Priority Date/Time Associated Diagnosis Comments US [facility] COMPREHENSIVE ANATOMIC SURVEY Routine 07/22/2024 8:27 AM EDT Abnormal ultrasound ULTRASOUND OFFICE Routine 07/04/2024 3:3 1 PM EDT from Last 3 Months Results * US [facility] COMPREHENSIVE ANATOMIC SURVEY (07/22/2024 8:27 AM EDT) Anatomical Region Laterality Modality OB-MEDICAL SUPPORT SPECIALIST Ultrasound 07/22/2024 7:46 AM EDT Narrative 07/22/2024 10:01 AM EDT NAME: JAYSON BRENNER : 2005 SEX: F Accession Number: [id number] ORDERING PHYSICIAN: ALLAN YEPEZ REFERRING PHYSICIAN: DOMINGUEZ HOGAN Coding ----- --------- Procedures 89998: Ultrasound, uterus, real time with image documentation, and maternal evaluation plus detailed anatomic examination, transabdominal approach;single or first gestation Indication ----- --------- Screening for Anatomic Survey , Screening for IUGR , Maternal anemia History ----- --------- OB History 4. Para 3 [id number] Maternal Assessment ----- --------- Physical Exam Height [...] EFW (oz) 5 oz EFW by: Hadlock ([id number]-TQ-FB-FL) Extended Tibia 42.4 mm 26w 2d 4% Cyndie Fibula 41.8 mm 25w 6d 18% Cyndie Radius 38.7 mm 12% Chitty Ulna 41.6 mm 27w 0d 5% Cyndie Pie Cutter 5.6 mm CM 7.9 mm 81% Nicolaides [...] view. RVOT view. LVOT view. 3-vessel view. 0-qdxkph-chpwypj view. Situs. Aortic arch view. Bicaval view. [...] primary OB provider unless otherwise specified by M. Procedure Note Allan Yepez MD - 07/22/2024 NAME: JAYSON BRENNER : 2005 SEX: F Accession Number: [id number] ORDERING PHYSICIAN: ALLAN YEPEZ REFERRING PHYSICIAN: DOMINGUEZ HOGAN Coding ----- --------- Procedures [id number]: Ultrasound, uterus, real time with imagedocumentation, and maternal evaluation plus detailed anatomic examination, transabdominalapproach;single or first gestation Indication ----- --------- Screening for Anatomic Survey , Screening for IUGR , Maternal anemia History ----- --------- OB History 4. Para 3 [id number] Maternal Assessment ----- --------- Physical Exam Height [...] EFW (oz) 5 oz EFW by: Hadlock (CDW-QD-MU-FL) Extended Tibia 42.4 mm 26w 2d 4% Cyndie Fibula 41.8 mm 25w 6d 18% Cyndie Radius 38.7 mm 12% Chitty Ulna 41.6 mm 27w 0d 5% Cyndie Pie Cutter 5.6 mm CM 7.9 mm 81% Nicolaides [...] 4-chamber view. RVOT view. LVOT view. 3-vessel view.4-zzhmho-vpxtaqc view. Situs. Aortic arch view. Bicaval view. [...] byprimary OB provider unless otherwise specified by [facility]. us Allan Yepez MD [facility] US ORDERABLES Final Resul t * Ultrasound - Office (07/04/2024 3:31 PM EDT) Anatomical Region Laterality Modality AMB Ultrasound us Not In System Ref Prov IMG US ORDERABLES Final R esult from Last 3 Months Insurance [facility] MEDICAID
--- OUTSIDE RECORDS SUMMARY | 2024-08-28 09:34 | XMS_ITS | Encounter Summary ---
Author Organization [facility] Address [address] [place] [address] Care Team Providers Care Painter Shipyard Name Role Phone Sadie Thomas MD Primary Care Provider [phone] Katharine Olivarez GENERAL REPAIR MECHANIC Unavailable [phone] Encounter Details Date Type Department Care Team (Late st Contact Info) Description 06/04/2024 Abstract [facility] [address] [place] [address] Jerry Wilson, DO [address] [place] [address] Social History Tobacco Use Types Packs/Day Years [...] often do you attend chur ch or methodist services? Never 03/15/2023 Do you belong to any clubs o r organizations such as mormon groups, unions, fraternal or athletic groups, or [...] Recorded Patient Health Questionnaire-2 Score 0 03/15/2023 [facility] - Occupational [...] [facility] [place] [address] Jerry Wilson DO [address] [place] [address] documented as of this encounter Visit Diagnoses Not on filedocumented in this encounter Care Teams Painter Shipyard Relationship Specialty Start Date End Date Sadie Thomas MD [address] [place] [address] PCP - General Family Medicine 10/22/23 Katharine Olivarez GENERAL REPAIR MECHANIC [address] [place] [address] Nurse Practitioner Family Medicine 10/22/23 documented as of this encounter
--- OUTSIDE RECORDS SUMMARY | 2024-08-28 09:34 | XMS_ITS | Clinical Summary ---
Author Organization [facility] Address [address] [place] [address] Care Team Providers Care Door Machine Operator Name Role Phone Sadie Thomas MD Primary Care Provider Katharine Olivarez NP Unavailable [phone] Allergies Active Allergy Reactions Criticality Noted Date Comments Amoxicillin 06/24/2024 Medications Vit-Fe Fumarate-FA ( Vitamins) 28-0.8 MG tabletIndication s:Missed menses, , unspecified gestational age ([facility]),Encoun ter for supervision of normal first in first trimester ([facility]) Take 1 tablet by mouth Daily 30 [...] Encounters Date Type Department Care Team Description 08/26/2024 Clinisync Result Encounter NOMS External Department Unsolicited Dominguez Wilson DO 08/19/2024 1:50 PM EDT Routine [facility] BCP OB [address] [place] [address] [place] [address] Dominguez Wilson DO Third trimester ([facility]); 32 weeks gestation of ([facility]) 08/19/2024 Bamboo flowsheet [facility] [address] [place] [address] Dominguez Wilson, DO 08/14/2024 Clinisync Result Encounter NOMS External Department Unsolicited SteveScoty, DO 08/14/2024 Clinisync Result Encounter NOMS External Department Unsolicited Steve, Dominguez, DO 08/14/2024 Clinisync Result Encounter NOMS External Department Unsolicited Steve, Dominguez, DO 08/14/2024 Clinisync Result Encounter NOMS External Department Unsolicited Steve, Dominguez, DO 08/07/2024 Clinisync Result Encounter NOMS External Department Unsolicited Holli Roque PA 08/05/2024 9:50 AM EDT Routine [facility] [address] [place] [address] Holli Roque PA Right otitis media, unspecified otitis media type (Primary Dx); Third trimester ([facility]); 30 weeks gestation of ([facility]); SGA (small for gestational age) ([facility]) 08/05/2024 Bamboo flowsheet [facility] [address] [place] [address] Holli Roque PA 07/23/2024 Abstract [facility] [address] [place] [address] Dominguez Wilson, DO 07/22/2024 1:20 PM EDT Routine [facility] [address] [place] [address] Dominguez Wilson, DO Third trimester ([facility]); 28 weeks gestation of ([facility]); SGA (small for gestational age) ([facility]) 07/22/2024 Bamboo flowsheet [facility]OM[facility] [address] [place] [address] Dominguez Wilson, DO 07/04/2024 Clinisync Result Encounter NOMS External Department Unsolicited Dominguez Wilson DO 06/24/2024 1:50 PM EDT Routine NOM[facility] [address] [place] [address] Dominguez Wilson DO 24 weeks gestation of ([facility]); Second trimester ([facility]) 06/24/[address] [facility] [address] [place] [address] [place] [address] Dominguez Wilson, 06/19/[address] [facility] OB [address] [facility] [address] Saadia Heck, REMOTE COMPUTER TERMINAL OPERATOR 06/19/2024 Patient Outreach [facility] [place] 2[place] [address] [place] [address] [phone] Holli Avilez, REMOTE COMPUTER TERMINAL OPERATOR 06/18/[address] [facility] OB [address] [facility] [address] Blossom Wills MA 06/09/2024 10:50 AM EDT Office Visit [facility] OB [address] [place] [address] [place] [address] Dominguez Wilson DO SOB (shortness of breath); Follow-up exam; Nausea and vomiting, unspecified vomiting type 06/09/[address] [facility] OB [address] [place] [address] [place] [address] Holli Roque PA 06/09/[address] [facility] OB [address] [facility] [place] [address] Dominguez Wilson, 06/06/[address] [facility] OB [address] [facility] [address] Dominguez Wilson, 06/05/[address] [facility] OB [address] [facility] [address] Tamy Juarez MA 06/04/2024 Abstract [facility] [address] [place] [address] Dominguez Wilson, 06/04/2024 Clinisync Result Encounter NOMS External Department Unsolicited Dominguez Wilson, 06/02/20[address] Telephone [facility] [address] [place] [address] Tamy Juarez MA 05/30/2024 Results Follow-Up [facility] [address] [place] [address] Fabiola Callahan LPN SGA (small for gestational age) ([facility]) 05/30/[address] [address] [place] [address] Fabiola Callahan LPN from Last 3 Months Family History Medical [...] Patient Health Questionnaire-2 Score 0 03/15/2023 [facility]at [facility] - Occupational [...] EDT Routine [facility] BCP OB [address] [facility] [phone] Dominguez Wilson, DO [address] [place] [address] Health Maintenance Due Date Last Done Comments Influenza Vaccine (#1) 2024 Procedures Procedure Name Priority Date/Time Associated Diagnosis Comments AMNISURE Routine 08/26/2024 2:00 AM EDT POCT URINALYSIS DIPSTICK Routine 08/19/2024 1:58 PM EDT Third trimester ([facility]) US OB BPP W NON-STRESS 08/14/2024 9:23 AM EDT US OB CERVICAL LENGTH 08/14/2024 9:23 AM EDT US OB PLACENTA 08/14/2024 9:23 AM EDT [facility] URINE MICROSCOPIC ONLY Routine 08/14/2024 1:00 AM EDT [facility] UA (CLEAN/CATCH) CDL SERVICE TECHNICIAN/MICRO IF IND. Routine 08/14/2024 1:00 AM EDT US OB BPP W NON-STRESS 08/07/2024 7:26 PM EDT POCT URINALYSIS DIPSTICK Routine 07/22/2024 1:34 PM EDT Third trimester ([facility]) ALL CBC WITH AUTO DIFF Routine 07/04/2024 9:50 AM EDT GLUCOSE 1 HOUR Routine 07/04/2024 9:50 AM EDT US OB GROWTH 07/04/2024 9:47 AM EDT POCT URINALYSIS DIPSTICK Routine 06/24/2024 1:55 PM EDT 24 weeks gestation of ([facility]) Second trimester ([facility]) [facility] LIPASE Routine 06/04/2024 4:08 AM EDT ALL AMYLASE Routine 06/04/2024 4:08 AM EDT [facility] CMP (CMP) (FOR REMOTE [facility] USE) Routine 06/04/2024 4:08 AM EDT ALL CBC WITH AUTO DIFF Routine 06/04/2024 4:08 AM EDT [facility] URINE MICROSCOPIC ONLY Routine 06/04/2024 3:05 AM EDT [facility] UA (CLEAN/CATCH) CDL SERVICE TECHNICIAN/MICRO IF IND. Routine 06/04/2024 3:05 AM EDT from Last 3 Months Results * AMNISURE (08/26/2024 2:00 AM EDT) Pathologist [facility] AMNISURE NEGATIVE NEGATIVE [facility] 08/26/2024 2:00 AM EDT 08/26/2024 2:11 AM EDT Narrative [facility] - 08/26/2024 2:23 AM EDT us Dominguez Steve DO LAB BLOOD ORDERABLES Final Resul t [facility] * POCT urinalysis dipstick manually resulted (08/19/2024 [...] - Positive Urine 08/19/2024 1:58 PM EDT us Dominguez Wilson DO POINT OF CARE TEST ENTER/EDIT OR DERABLES Final Result * US OB PLACENTA (08/14/2024 9:23 AM EDT) Anatomical Region Laterality Modality Other 08/14/2024 9:23 AM EDT Narrative 08/14/2024 9:[place] [address] Ultrasound Report Signed Patient: KARLA TYLER MR#: [id number] : 2005 Acct:[id number] Age/Sex: 19 / F ADM Date: Loc: [facility] 250-[address]: Dominguez Wilson D.O. Ordering Physician: Dominguez Wilson D.O. Date of Service: 08/14/24 Procedure(s): US OB placenta Accession Number(s): [id number] cc: Dominguez Wilson D.O.; Physician,Non-Staff M.DFarzad [place] [address] Patient Name: KARLA TYLER MRN: [facility]:[id number] date: 2005 Sex: F Assigned Patient Location: [facility] Current Patient Location: Accession/Order Number: [id number] Exam Date: 08/14/2024 09:18 Report Date: 08/14/2024 09:23 At the request of: DOMINGUEZ WILSON DO Procedure: US OB cervical length CLINICAL DATA: SGA. Contractions. BIOPHYSICAL PROFILE: COMPARISON: 08/07/2024 There is a single live intrauterine gestation in breech presentation. The reported gestational age is 31 weeks 4 days.. The heart rate [id number] beats per minute. FINDINGS: TONE: 1 or [...] Roe M.D. 08/14/2024 9:23 AM Dictation Location: [place] [address] Electronically authenticated by: [id number] Y Date: 08/14/2024 09:23 Dictated By: Tavia Roe M.D. Signed By: 08/14/24925 DD/ 2 TD/TT: Lead Massage Therapist: Procedure Note Radiology, Radiologist, MD - 08/14/2024 [place] [address] Ultrasound Report Signed Patient: KARLA TYLER AMR#: [id number] : 2005Acct:[id number] Age/Sex: 19 / FADM Date: Loc: [place] [address]: Dominguez Wilson D.O. Ordering Physician: Dominguez Wilson D.O. Date of Service: 08/14/24 Procedure(s): US OB placenta Accession Number(s): [id number] cc: Dominguez Wilson D.O.; Physician,Non-Staff [place] [id number] Patient Name: KARLA TYLER MRN: [facility]:[id number] date: 2005 Sex: F Assigned Patient Location: [facility] Current Patient Location: Accession/Order Number: [id number] Exam Date: 08/14/2024 09:18 Report Date: 08/14/2024 09:23 At the request of: DOMINGUEZ WILSON DO Procedure: US OB cervical length CLINICAL DATA: SGA. Contractions. BIOPHYSICAL PROFILE: COMPARISON: 08/07/2024 There is a single live intrauterine gestation in breech presentation. The reported gestational age is 31 weeks 4 days.. The heart rate qxjrlvyg010 beats per minute. FINDINGS: TONE: 1 or [...] Roe M.D. 08/14/2024 9:23 AM Dictation Location: [place] [address] Electronically authenticated by: [id number] Y Date: : Dictated By: Tavia Roe M.D. Signed By:08/14/24925 DD/ 2 TD/TT: Lead Massage Therapist: us Dominguez Steve DO [facility] IMAGING Final Result * US OB BPP W NON-STRESS (08/14/2024 9:23 AM EDT) Only the most recent of2 resultswithin the time period is included. Anatomical Region Laterality Modality Other 08/14/2024 9:23 AM EDT Narrative 08/14/2024 9:26 AM EDT [address] [address] Ultrasound Report Signed Patient: KARLA TYLER MR#: [id number] : 2005 Acct:[id number] Age/Sex: 19 / F ADM Date: Loc: [facility] 250-[address]: Dominguez Wilson D.O. Ordering Physician: Dominguez Wilson D.O. Date of Service: 08/14/24 Procedure(s): US OB BPP w non-stress Accession Number(s): [id number] cc: Dominguez Wilson D.O.; Physician,Non-Staff M.DFarzad [place] [address] Patient Name: KARLA TYLER MRN: [facility]:[id number] date: 2005 Sex: F Assigned Patient Location: [facility] Current Patient Location: Accession/Order Number: [id number] Exam Date: 08/14/2024 09:18 Report Date: 08/14/2024 09:23 At the request of: DOMINGUEZ WILSON DO Procedure: US OB cervical length CLINICAL DATA: SGA. Contractions. BIOPHYSICAL PROFILE: COMPARISON: 08/07/2024 There is a single live intrauterine gestation in breech presentation. The reported gestational age is 31 weeks 4 days.. The heart rate [id number] beats per minute. FINDINGS: TONE: 1 or [...] Roe M.D. 08/14/2024 9:23 AM Dictation Location: [place] [address] Electronically authenticated by: [id number] Y Date: 08/14/2024 09:23 Dictated By: Tavia Roe M.D. Signed By: 08/14/24925 DD/ 2 TD/TT: Lead Massage Therapist: Procedure Note Radiology, Radiologist, MD - 08/14/2024 [place] [address] Ultrasound Report Signed Patient: KARLA TYLER AMR#: [id number] : 2005Acct:[id number] Age/Sex: 19 FADM Date: Loc: [facility] 250- Attending Dr: Dominguez Wilson D.O. Ordering Physician: Dominguez Wilson D.O. Date of Service: 08/14/24 Procedure(s): US OB BPP w non-stress Accession Number(s): [id number] cc: Dominguez Wilson D.O.; Physician,Non-Staff Christine The [place] [id number] Patient Name: KARLA TYLER MRN: [id number]:[id number] date: 2005 Sex: F Assigned Patient Location: [facility] Current Patient Location: Accession/Order Number: [id number] Exam Date: 08/14/2024 09:18 Report Date: 08/14/2024 09:23 At the request of: DOMINGUEZ WILSON DO Procedure: US OB cervical length CLINICAL DATA: SGA. Contractions. BIOPHYSICAL PROFILE: COMPARISON: 08/07/2024 There is a single live intrauterine gestation in breech presentation. The reported gestational age is 31 weeks 4 days.. The heart rate [id number] beats per minute. FINDINGS: TONE: 1 or [...] Roe M.D. 08/14/2024 9:23 AM Dictation Location: [place] [address] Electronically authenticated by: [id number] Y Date: 9:23 Dictated By: Tavia Roe M.D. Signed By:08/14/24925 DD/ 2 TD/TT: Lead Massage Therapist: us Dominguez Wilson DO [facility] IMAGING Final Result * US OB CERVICAL LENGTH (08/14/2024 9:23 AM EDT) Anatomical Region Laterality Modality Other 08/14/2024 9:23 AM EDT Narrative 08/14/2024 9:26 [place] [address] Ultrasound Report Signed Patient: KARLA TYLER MR#: [id number] : 2005 Acct:[id number] Age/Sex: 19 / F ADM Date: Loc: [facility] Attending Dr: Dominguez Wilson D.O. Ordering Physician: Dominguez Wilson D.O. Date of Service: 08/14/24 Procedure(s): US OB cervical length Accession Number(s): [id number] cc: Dominguez Wilson D.O.; Physician,Non-Staff Christine The [place] [id number] Patient Name: KARLA TYLER MRN: [facility]:[id number] date: 2005 Sex: F Assigned Patient Location: [facility] Current Patient Location: Accession/Order Number: [id number] Exam Date: 08/14/2024 09:18 Report Date: 08/14/2024 09:23 At the request of: DOMINGUEZ WILSON DO Procedure: US OB cervical length CLINICAL DATA: SGA. Contractions. BIOPHYSICAL PROFILE: COMPARISON: 08/07/2024 There is a single live intrauterine gestation in breech presentation. The reported gestational age is 31 weeks 4 days.. The heart rate [id number] beats per minute. FINDINGS: TONE: 1 or [...] Roe M.D. 08/14/2024 9:23 AM Dictation Location: [place] [address] Electronically authenticated by: [id number] Y Date: 08/14/2024 09:23 Dictated By: Tavia Roe M.D. Signed By: 08/14/24925 DD/ 2 TD/TT: Lead Massage Therapist: Procedure Note Radiology, Radiologist, - 08/14/2024 [place] [address] Ultrasound Report Signed Patient: KARLA TYLER AMR#: [id number] : 2005Acct:[id number] Age/Sex: 19 / FADM Date: Loc: [facility] 250-[address]: Dominguez Wilson D.O. Ordering Physician: Dominguez Wilson D.O. Date of Service: 08/14/24 Procedure(s): US OB cervical length Accession Number(s): [id number] cc: Dominguez Wilson D.O.; Physician,Non-Staff Christine The [place] [address] Patient Name: KARLA TYLER MRN: [facility]:[id number] date: 2005 Sex: F Assigned Patient Location: [facility] Current Patient Location: Accession/Order Number: [id number] Exam Date: 08/14/2024 09:18 Report Date: 08/14/2024 09:23 At the request of: DOMINGUEZ WILSON DO Procedure: US OB cervical length CLINICAL DATA: SGA. Contractions. BIOPHYSICAL PROFILE: COMPARISON: 08/07/2024 There is a single live intrauterine gestation in breech presentation. The reported gestational age is 31 weeks 4 days.. The heart rate [id number] beats per minute. FINDINGS: TONE: 1 or [...] Roe M.D. 08/14/2024 9:23 AM Dictation Location: [place] [address] Electronically authenticated by: [id number] Y Date: 9:23 Dictated By: Tavia Roe M.D. Signed By:08/14/24925 DD/ 2 TD/TT: Lead Massage Therapist: Dominguez Steve DO [facility] IMAGING Final Result [...] [facility] TB * (ABNORMAL) [facility] UA (CLEAN/CATCH) CDL SERVICE TECHNICIAN/MICRO IF IND. (08/14/2024 1:00 AM EDT) Only [...] us Dominguez Steve DO [facility] Final Result [facility] * GLUCOSE 1 HOUR (07/04/2024 9:50 AM EDT) GLUCOSE 1 HOUR 103 <130 mg/dL TB 07/04/2024 9:50 AM EDT 07/04/2024 9:52 AM EDT Narrative [facility] - 07/04/2024 10:07 AM EDT us Dominguez Steve DO LAB BLOOD ORDERABLES Final Resul t Performing Organization Address [facility]/ZIP Co de Phone Number [facility] * (ABNORMAL) ALL CBC WITH AUTO [...] - 07/04/2024 10:26 AM EDT us Dominguez WEBBER Final [facility] * US OB GROWTH (07/04/2024 9:47 AM EDT) Anatomical Region Laterality Modality Other 07/04/2024 9:47 AM EDT Narrative 07/04/2024 9:49 AM EDT [address] [address] Ultrasound Report Signed Patient: KARLA TYLER MR#: [id number] : 2005 Acct:[id number] Age/Sex: 19 / F ADM Date: 07/04/24 Loc: US Attending Dr: Dominguez Wilson D.O. Ordering Physician: Dominguez Wilson D.O. Date of Service: 07/04/24 Procedure(s): US OB growth Accession Number(s): [id number] cc: Dominguez Wilson D.O.; Physician,Non-Staff Christine [place] [id number] Patient Name: KARLA TYLER MRN: [facility]:[id number] date: 2005 Sex: F Assigned Patient Location: Current Patient Location: US Accession/Order Number: [id number] Exam Date: 07/04/2024 09:40 Report Date: 07/04/2024 [...] Roe M.D. 07/04/2024 9:47 AM Dictation Location: [place] [address] Electronically authenticated by: [id number] Y Date: 07/04/2024 09:47 Dictated By: Tavia Roe M.D. Signed By: 07/04/24 0949 DD/ 0947 TD/TT: Lead Massage Therapist: Procedure Note Radiology, Radiologist, MD - 07/04/2024 [place] [address] Ultrasound Report Signed Patient: KARLA TYLER AMR#: [id number] : 2005Acct:[id number] Age/Sex: 19 / FADM Date: 07/04/24 Loc: US Attending Dr: Dominguez Wilson D.O. Ordering Physician: Dominguez Wilson D.O. Date of Service: 07/04/24 Procedure(s): US OB growth Accession Number(s): [id number] cc: Dominguez Wilson D.O.; Physician,Non-Staff Christine [facility] [place] [id number] Patient Name: KARLA TYLER MRN: [id number]:[id number] date: 2005 Sex: F Assigned Patient Location: US Current Patient Location: Accession/Order Number: [id number] Exam Date: 07/04/2024 09:40 Report Date: 07/04/2024 [...] Roe M.D. 07/04/2024 9:47 AM Dictation Location: [place] [address] Electronically authenticated by: [id number] Y Date: 9:47 Dictated By: Tavia Roe M.D. Signed By:07/04/2449 DD/ 6 TD/TT: Lead Massage Therapist: us Dominguez Steve DO [facility] IMAGING Final Result * [facility] LIPASE (06/04/2024 4:08 AM EDT) LIPASE 29.0 16.0 - 77.0 U/L [facility] 06/04/2024 4:08 AM EDT 06/04/2024 4:29 AM EDT Narrative [facility] - 06/04/2024 4:51 AM EDT us Dominguez Steve DO [facility] Final Result [facility] TB * (ABNORMAL) [facility] CMP (CMP) (FOR REMOTE [facility] USE) (06/04/2024 4:08 AM EDT) SODIUM 139 136 - 145 mmol/L [facility] POTASSIUM 3.4(L) 3.5 - 5.1 mmol/L [facility] CHLORIDE 103 98 - 107 mmol/L [facility] CARBON DIOXIDE 25.3 21.0 - 32.0 mmol/L [facility] ANION GAP 14.1 [facility] GLUCOSE 86 74 - 106 mg/dL [facility] BLOOD UREA NITROGEN 5.0(L) 7.0 - 18.0 mg/dL [facility] CREATININE 0.56 0.55 - 1.02 mg/dL [facility] TBH EGFR-AF [place] >60 >=60 mL/min/1. 73m 2 TB[facility] TBH EGFR-NON AF [place] >60 >=60 mL/min/1. 73m 2 [facility] BUN [...] Dominguez Steve DO [facility] Final Result [facility] * ALL AMYLASE (06/04/2024 4:08 AM EDT) AMYLASE 51 25 - 115 U/L [facility] 06/04/2024 4:08 AM EDT 06/04/2024 4:29 AM EDT Narrative [facility] - 06/04/2024 4:51 AM EDT Dominguez Steve DO [facility] Final Result [facility] TB from Last 3 Months Insurance [employer] [place]ICA[place] Care Teams Door Machine Operator Relationship Specialty Start Date End Date Sadie Thomas MD [address] [place] [address] PCP - General Family Medicine 10/22/23 Katharine Olivarez NP [address] [place] [address] Nurse Practitioner Family Medicine 10/22/23
--- OUTSIDE RECORDS SUMMARY | 2024-08-28 09:34 | XMS_ITS | Encounter Summary ---
Author Organization [facility] Address [address] [place] [address] Care Team Providers Care Scouring Pads Supervisor Name Role Phone Sadie Thomas MD Primary Care Provider Katharine Olivarez NP Unavailable [phone] Encounter Details Date Type Department Care Team (Late st Contact Info) Description 08/26/2024 Clinisync Result Encounter [facility]S External Department Unsolicited Jerry Wilson, [address] [facility] [place] [address] Social History Tobacco Use Types Packs/Day Years [...] any clubs o r organizations such as mandaen groups, unions, fraternal or athletic groups, or [...] [facility] Occupat ional [facility] - [...] EDT Routine [facility] BCP OB [address] [facility] [address] Jerry Wilson, DO [address] [place] [address] documented as of this encounter Procedures Procedure Name Priority Date/Time Associated Diagnosis Comments AMNISURE Routine 08/26/2024 2:00 AM EDT documented in this encounter Results * AMNISURE (08/26/2024 2:00 AM EDT) Pathologist [facility] AMNISURE NEGATIVE NEGATIVE [facility] 08/26/2024 2:00 AM EDT 08/26/2024 2:11 AM EDT Narrative [facility] - 08/26/2024 2:23 AM EDT us Jerry Wilson DO LAB BLOOD ORDERABLES Final Resul t [facility] documented in this encounter Visit Diagnoses Not on filedocumented in this encounter Care Teams Scouring Pads Supervisor Relationship Specialty Start Date End Date Sadie Thomas MD [address] [place] [address] PCP - General Family Medicine 10/22/23 Katharine Olivarez NP [address] [place] [address] Nurse Practitioner Family Medicine 10/22/23 documented as of this encounter
--- OUTSIDE RECORDS SUMMARY | 2024-08-28 09:34 | XMS_ITS | Encounter Summary ---
Author Organization [facility] Address [address] [place] [address] Care Team Providers Care Sox Analyst Name Role Phone Unallocated, Noms Provider Primary Care Provi nani Sadie Thomas MD Primary Care Provider [phone] Katharine Olivarez DRAWING BOX TENDER Unavailable [phone] Encounter Details Date Type Department Care Team (Late st Contact Info) Description 03/15/2023 Orders Only [facility] NB OB [address] [place] [address] [id number] Unallocated, Noms Provider, [address] [place], [place] [address] Social History Tobacco Use Types Packs/Day Years [...] often do you attend chur ch or rastafarian services? Never 03/15/2023 Do you belong to any clubs o r organizations such as shinto groups, unions, fraternal or athletic groups, or [...] Patient Health Questionnaire-2 Score 0 03/15/2023 [facility] of Occupat ional [facility] - Occupational Stress Questionnaire Answer [...] AM EDT Routine [facility] BCP OB [address] [facility] [place] [address] Jerry Wilson, DO [address] [facility] [place] [address] documented as of this encounter Procedures Procedure [...] on filedocumented in this encounter Care Teams Sox Analyst Relationship Specialty Start Date End Date Unallocated, Noms Provider, [address] [place] [address] PCP - General 07/19/22 10/21/23 Sadie Thomas MD [address] [place] [address] PCP - General Family Medicine 10/22/23 Katharine Olivarez NP [address] [place] [address] Nurse Practitioner Family Medicine 10/22/23 documented as of this encounter
--- OUTSIDE RECORDS SUMMARY | 2024-08-28 09:34 | XMS_ITS | Encounter Summary ---
Author Organization [facility] Address [address] [place] [address] Care Team Providers Care Driver Operator Name Role Phone Sadie Thomas MD Primary Care Provider [phone] Katharine Olivarez NP Unavailable Encounter Details Date Type Department Care Team (Late st Contact Info) Description 08/14/2024 Clinisync Result Encounter [facility] External Department Unsolicited Dominguez Wilson, [address] [facility] [place] [address] Social History Tobacco Use Types Packs/Day Years [...] often do you attend chur ch or spiritism services? Never 03/15/2023 Do you belong to any clubs o r organizations such as taoist groups, unions, fraternal or athletic groups, or [...] Recorded Patient Health Questionnaire-2 Score 0 03/15/2023 [facility] of Occupat ional Health - [...] OB [address] [place] [address] Dominguez Wilson, DO [address] [facility] [place] [address] documented as of this encounter Procedures Procedure Name Priority Date/Time Associated Diagnosis Comments US OB CERVICAL LENGTH 08/14/2024 9:23 AM EDT documented in this encounter Results * US OB CERVICAL LENGTH (08/14/2024 9:23 AM EDT) Anatomical Region Laterality Modality Other 08/14/2024 9:23 AM EDT Narrative 08/14/2024 9:26 AM EDT The [address] [address] Ultrasound Report Signed Patient: JORDIN KIDD MR#: [id number] : 2005 Acct:[id number] Age/Sex: 19 / F ADM Date: Loc: [facility] 250-[address]: Dominguez Wilson D.O. Ordering Physician: Dominguez Wilson D.O. Date of Service: 08/14/24 Procedure(s): US OB cervical length Accession Number(s): [id number] cc: Dominguez Wilson D.O.; Physician,Non-Staff [place] [address] Patient Name: JORDIN KIDD MRN: [id number] date: 2005 Sex: F Assigned Patient Location: [facility] Current Patient Location: Accession/Order Number: [id number] Exam Date: 08/14/2024 09:18 Report Date: 08/14/2024 09:23 At the request of: DOMINGUEZ WILSON DO Procedure: US OB cervical length CLINICAL DATA: SGA. Contractions. BIOPHYSICAL PROFILE: COMPARISON: 08/07/2024 There is a single live intrauterine gestation in breech presentation. The reported gestational age is 31 weeks 4 days.. The heart rate dqadnvkc529 beats per minute. FINDINGS: TONE: 1 or [...] 08/14/2024 9:23 AM Dictation Location: [place] [address] Electronically authenticated by: [id number] Y Date: 08/14/2024 09:23 Dictated By: Tavia Roe M.D. Signed By: 08/14/24925 DD/ 2 TD/TT: Shochet: Procedure Note Radiology, Radiologist, MD - 08/14/2024 [place] [address] Ultrasound Report Signed Patient: JORDIN KIDD AMR#: [id number] : 2005Acct:[id number] Age/Sex: 19 / FADM Date: Loc: [facility] 250-[address]: Dominguez Wilson D.O. Ordering Physician: Dominguez Wilson D.O. Date of Service: 08/14/24 Procedure(s): US OB cervical length Accession Number(s): [id number] cc: Dominguez Wilson D.O.; Physician,Non-Staff Christine The [place] [id number] Patient Name: JORDIN KIDD MRN: [id number] date: 2005 Sex: F Assigned Patient Location: [facility] Current Patient Location: Accession/Order Number: [id number] Exam Date: 08/14/2024 09:18 Report Date: 08/14/2024 09:23 At the request of: DOMINGUEZ WILSON DO Procedure: US OB cervical length CLINICAL DATA: SGA. Contractions. BIOPHYSICAL PROFILE: COMPARISON: 08/07/2024 There is a single live intrauterine gestation in breech presentation. The reported gestational age is 31 weeks 4 days.. The heart rate ttiyrhnq119 beats per minute. FINDINGS: TONE: 1 or [...] 08/14/2024 9:23 AM Dictation Location: [place] [address] Electronically authenticated by: [id number] Y Date: 9:23 Dictated By: Tavia Roe M.D. Signed By:08/14/24925 DD/ 2 TD/TT: Shochet: us Dominguez Steve DO [facility] Final Result documented in this encounter Visit Diagnoses Not on filedocumented in this encounter Care Teams Driver Operator Relationship Specialty Start Date End Date Sadie Thomas MD [address] [place] [address] PCP - General Family Medicine 10/22/23 Katharine Olivarez NP [address] [place] [address] Nurse Practitioner Family Medicine 10/22/23 documented as of this encounter
--- OUTSIDE RECORDS SUMMARY | 2024-08-28 09:34 | XMS_ITS | Encounter Summary ---
Author Organization [facility] Address [address] [place] [address] Care Team Providers Care Icu Specialist Name Role Phone Sadie Thomas MD Primary Care Provider [phone] Katharine Olivarez BUDGET COUNSELOR Unavailable [phone] Encounter Details Date Type Department Care Team (Late st Contact Info) Description 06/19/2024 Abstract [facility] BCP OB [address] [facility] [place] [address] Saadia Heck LPN Social History Tobacco [...] often do you attend chur ch or druze services? Never 03/15/2023 Do you belong to any clubs o r organizations such as hinduism groups, unions, fraternal or athletic groups, or [...] Recorded Patient Health Questionnaire-2 Score 0 03/15/2023 [facility] of Occupat ional Health - Occupational Stress [...] BCP OB [address] [place] [address] Jerry Wilson, DO [address] [facility] [address] [place], [place] [address] documented as of this encounter Visit Diagnoses Not on filedocumented in this encounter Care Teams Icu Specialist Relationship Specialty Start Date End Date Sadie Thomas MD [address] [place] [address] PCP - General Family Medicine 10/22/23 Katharine Olivarez NP [address] [place] [address] Nurse Practitioner Family Medicine 10/22/23 documented as of this encounter
--- OUTSIDE RECORDS SUMMARY | 2024-08-28 09:34 | XMS_ITS | Encounter Summary ---
Author Organization [facility] Address [address] [place] [address] Care Team Providers Care Supplemental Nurse Name Role Phone Sadie Thomas MD Primary Care Provider Katharine Olivarez NP Unavailable Encounter Details Date Type Department Care Team (Late st Contact Info) Description 08/14/2024 Clinisync Result Encounter [facility] External Department Unsolicited Dominguez Wilson, [address] [facility] [place] [address] Social History Tobacco Use Types Packs/Day Years [...] often do you attend chur ch or mandaeism services? Never 03/15/2023 Do you belong to [...] AM EDT Routine [facility] BCP OB [address] [facility] [place] [address] Dominguez Wilson, DO [address] [place] [address] [place] [address] documented as of this encounter Procedures Procedure Name Priority Date/Time Associated Diagnosis Comments US OB BPP W NON-STRESS 08/14/2024 9:23 AM EDT documented in this encounter Results * US OB BPP W NON-STRESS (08/14/2024 9:23 AM EDT) Anatomical Region Laterality Modality Other 08/14/2024 9:23 AM EDT Narrative 08/14/2024 9:26 AM EDT [address] [address] Ultrasound Report Signed Patient: JORDIN KIDD MR#: [id number] : 2005 Acct:[id number] Age/Sex: 19 / F ADM Date: Loc: [facility] 250-[address]: Dominguez Wilson D.O. Ordering Physician: Dominguez Wilson D.O. Date of Service: 08/14/24 Procedure(s): US OB BPP w non-stress Accession Number(s): [id number] cc: Dominguez Wilson D.O.; Physician,Non-Staff MArleth [address] [address] Patient Name: JORDIN KIDD MRN: [id number] date: 2005 Sex: F Assigned Patient Location: [facility] Current Patient Location: Accession/Order Number: [id number] Exam Date: 08/14/2024 09:18 Report Date: 08/14/2024 09:23 At the request of: DOMINGUEZ WILSON DO Procedure: US OB cervical length CLINICAL DATA: SGA. Contractions. BIOPHYSICAL PROFILE: COMPARISON: 08/07/2024 There is a single live intrauterine gestation in breech presentation. The reported gestational age is 31 weeks 4 days.. The heart rate oozxcypp593 beats per minute. FINDINGS: TONE: 1 or [...] 08/14/2024 9:23 AM Dictation Location: [place] [address] Electronically authenticated by: [id number] Y Date: 08/14/2024 09:23 Dictated By: Tavia Roe M.D. Signed By: 08/14/24925 DD/ 2 TD/TT: Two Way Radio Installer: Procedure Note Radiology, Radiologist, MD - 08/14/2024 [place] [address] Ultrasound Report Signed Patient: JORDIN KIDD AMR#: [id number] : 2005Acct:[id number] Age/Sex: M Date: Loc: [place] [address]- Attending Dr: Dominguez Wilson D.O. Ordering Physician: Dominguez Wilson D.O. Date of Service: 08/14/24 Procedure(s): US OB BPP w non-stress Accession Number(s): [id number] cc: Dominguez Wilson D.O.; Physician,Non-Staff Christine The [place] [address] Patient Name: JORDIN KIDD MRN: [facility]:[id number] date: 2005 Sex: F Assigned Patient Location: [facility] Current Patient Location: Accession/Order Number: [id number] Exam Date: 08/14/2024 09:18 Report Date: 08/14/2024 09:23 At the request of: DOMINGUEZ WILSON DO Procedure: US OB cervical length CLINICAL DATA: SGA. Contractions. BIOPHYSICAL PROFILE: COMPARISON: 08/07/2024 There is a single live intrauterine gestation in breech presentation. The reported gestational age is 31 weeks 4 days.. The heart rate lxofxnza249 beats per minute. FINDINGS: TONE: 1 or [...] 08/14/2024 9:23 AM Dictation Location: [place] [address] Electronically authenticated by: [id number] Y Date: 9:23 Dictated By: Tavia Roe M.D. Signed By:08/14/24925 DD/ 2 TD/TT: Two Way Radio Installer: us Dominguez Steve DO [facility] Final Result documented in this encounter Visit Diagnoses Not on filedocumented in this encounter Care Teams Supplemental Nurse Relationship Specialty Start Date End Date Sadie Thomas MD [address] [place] [address] PCP - General Family Medicine 10/22/23 Katharine Olivarez NP [address] [place] [address] Nurse Practitioner Family Medicine 10/22/23 documented as of this encounter
--- OUTSIDE RECORDS SUMMARY | 2024-08-28 09:34 | XMS_ITS | Encounter Summary ---
Author Organization [facility] Address [address] [facility] [place] [address] Care Team Providers Care Life Skills Educator Name Role Phone Sadie Thomas MD Primary Care Provider [phone] Katharine Olivarez ION EXCHANGE OPERATOR Unavailable [phone] Encounter Details Date Type Department Care Team (Late st Contact Info) Description 07/23/2024 Abstract [facility] BCP OB [address] [place] [address] Jerry Wilson, DO [address] [facility] [place] [address] Social History Tobacco Use Types Packs/Day Years [...] any clubs o r organizations such as lutheran groups, unions, fraternal or athletic groups, or [...] Recorded Patient Health Questionnaire-2 Score 0 03/15/2023 [facility] of Occupat ional Health - Occupational [...] place to sleep or slept in a group home (including now)? No 03/15/2023 Education Answer [...] AM EDT Routine [facility] BCP OB [address] [place] [address] Jerry Wilson DO [address] [place] [address] documented as of this encounter Visit Diagnoses Not on filedocumented in this encounter Care Teams Life Skills Educator Relationship Specialty Start Date End Date Sadie Thomas MD [address] [place] [address] PCP - General Family Medicine 10/22/23 Katharine Olivarez ION EXCHANGE OPERATOR [address] [place] [address] Nurse Practitioner Family Medicine 10/22/23 documented as of this encounter
--- OUTSIDE RECORDS SUMMARY | 2024-08-28 09:34 | XMS_ITS | Encounter Summary ---
Author Organization [facility] Address [address] [place] [address] Care Team Providers Care Card Game Operator Name Role Phone Sadie Thomas MD Primary Care Provider Katharine Olivarez NP Unavailable Encounter Details Date Type Department Care Team (Late st Contact Info) Description 08/14/2024 Clinisync Result Encounter [facility]S External Department Unsolicited Jerry Wilson, [address] [facility] [place] [address] Social History Tobacco Use Types Packs/Day Years [...] any clubs o r organizations such as jew groups, unions, fraternal or athletic groups, or [...] [facility] of Occupat ional Health - Occupational Stress [...] [address] [facility] [place] [address] Jerry Wilson, DO [address] [facility] [address] [place], [place] [address] documented as of this encounter Procedures Procedure Name Priority Date/Time Associated Diagnosis Comments [facility] URINE MICROSCOPIC ONLY Routine 08/14/2024 1:00 AM EDT [facility] UA (CLEAN/CATCH) PATIENT FINANCIAL REP/MICRO IF IND. Routine 08/14/2024 1:00 AM EDT [...] DO [facility] Final Result Performing Organization Address [facility] Co de Phone Number [facility] * (ABNORMAL) [facility] UA (CLEAN/CATCH) PATIENT FINANCIAL REP/MICRO IF IND. (08/14/2024 1:00 AM EDT) COLOR [...] on filedocumented in this encounter Care Teams Card Game Operator Relationship Specialty Start Date End Date Sadie Thomas MD [address] [place] [address] PCP - General Family Medicine 10/22/23 Katharine Olivarez NP [address] [place] [address] Nurse Practitioner Family Medicine 10/22/23 documented as of this encounter
--- OUTSIDE RECORDS SUMMARY | 2024-08-28 09:34 | XMS_ITS | Encounter Summary ---
Author Organization [facility] Address [address] [facility] [place] [address] Care Team Providers Care Beef Skinner Name Role Phone Sadie Thomas MD Primary Care Provider [phone] Katharine Olivarez EVP MARKETING Unavailable [phone] Encounter Details Date Type Department Care Team (Late st Contact Info) Description 05/27/2024 Abstract [facility] BCP OB [address] [facility] [place] [address] Jerry Wilson, DO [address] [facility] [place] [address] Social History Tobacco Use Types Packs/Day Years [...] often do you attend chur ch or orthodox services? Never 03/15/2023 Do you belong [...] Recorded Patient Health Questionnaire-2 Score 0 03/15/2023 [facility] of Occupat ional Health - [...] place to sleep or slept in a fdc (including now)? No 03/15/2023 Education Answer Date [...] [address] [facility] [place] [address] Jerry Wilson DO [address] [place] [address] documented as of this encounter Visit Diagnoses Not on filedocumented in this encounter Care Teams Beef Skinner Relationship Specialty Start Date End Date Sadie Thomas MD [address] [place] [address] PCP - General Family Medicine 10/22/23 Katharine Olivarez EVP MARKETING [address] [place] [address] Nurse Practitioner Family Medicine 10/22/23 documented as of this encounter
--- OUTSIDE RECORDS SUMMARY | 2024-08-28 09:34 | XMS_ITS | Encounter Summary ---
Author Organization [facility] Address [address] [facility] [place] [place] [address] Care Team Providers Care Composite Boat Builder Name Role Phone Unallocated, Erins Provider Primary Care Provi nani Sadie Thomas MD Primary Care Provider [phone] Katharine Olivarez SHEAR GRINDER OPERATOR Unavailable [phone] Encounter Details Date Type Department Care Team (Late st Contact Info) Description 08/16/2022 Abstract [facility] BCP OB [address] [place] [address] Jerry Wilson [address] [place] [address] Social History Tobacco Use Types Packs/Day [...] Routine [facility] BCP OB [address] [place] [address] Jerry Wilson DO [address] [place] [address] documented as of this encounter Visit Diagnoses Not on filedocumented in this encounter Care Teams Composite Boat Builder Relationship Specialty Start Date End Date Unallocated, Noms ProviderMD [address] [facility] [place] [address] PCP - General 07/19/22 10/21/23 Sadie Thomas MD [address] [place] [address] PCP - General Family Medicine 10/22/23 Katharine Olivarez NP [address] [place] [address] Nurse Practitioner Family Medicine 10/22/23 documented as of this encounter
--- OUTSIDE RECORDS SUMMARY | 2024-08-28 09:34 | XMS_ITS | Patient Health Record ---
Author Organization [facility] Address [address] [place] [address] Care Team Providers Care Harness Maker Name Role Phone Soraida Sandy Primary Care Provider Dr. Carrillo Alegre Unavailable [phone] Juan Carlos Messina Unavailable [phone] Chelsi Grijalva Unavailable [phone] Jasmyn Perkins Unavailable [phone] Brenna Turner Unavailable [phone] Reason For Referral No Information Encounters Encounter Location Date Provider Diagnosis [facility] [address] [place] [address] 09/26/2023 Soraida Frausto [facility] [address] [place] [address] 09/18/2023 Carrillo Alegre Dental caries on pit and fissure surface penetrating into dentin K02.52 ; Cracked tooth K03.81 ; Encounter for dental examination and cleaning with abnormal findings Z01.21 ; Other dental procedure status Z98.818 and Acute gingivitis, plaque induced K05.00 [facility] [address] [place] [address] 11/19/2023 Brenna Turner Dental caries on pit and fissure surface penetrating into dentin K02.52 [facility] [place] [address] 01/14/2024 Brenna Turner Dental caries on pit [...] T ADVANTAGE -termed [address] [place] [address] [id number] JORDIN TYLER Self - patient is the insured 2 3 zMEDICAID CFC after PARAMOUNT -termed [address] [place] [address] [id number] JORDIN TYLER Self - patient is the insured 2 3 zDENTAL DQ PARAMOUNT -termed [address] [place] [address] [id number] JORDIN TYLER Self - patient is the insured 2 3 zDental MEDICAID CFC after PARAMOUNT -termed [address] [place] [address] [id number] JORDIN TYLER Self - patient is the insured 2 3 Dental [place] DQ Terminate d 24 [address] [place] [address] [id number] JORDIN TYLER Self - patient is the insured 4 Dental Wrap CFC [place] BCBS Termed [address] [place] [address] [id number] JORDIN TYLER Self - patient is the insured 4
--- OUTSIDE RECORDS SUMMARY | 2024-08-28 09:35 | XMS_ITS | Encounter Summary ---
Author Organization [facility] Address [address] [facility] [place] [address] Care Team Providers Care Division Road Supervisor Name Role Phone Sadie Thomas MD Primary Care Provider [phone] Katharine Olivarez DELIVERY ENGINEER Unavailable [phone] Encounter Details Date Type Department Care Team (Late st Contact Info) Description 05/19/2024 Abstract [facility] BCP OB [address] [place] [address] Jerry Wilson, DO [address] [facility] [place] [address] Social History Tobacco Use Types Packs/Day Years [...] often do you attend chur ch or caodaism services? Never 03/15/2023 Do you belong to [...] Recorded Patient Health Questionnaire-2 Score 0 03/15/2023 [facility] of Occupat ional Health - [...] AM EDT Routine NOM[facility] BCP OB [address] [place] [address] Jerry Wilson DO [address] [place] [address] documented as of this encounter Visit Diagnoses Not on filedocumented in this encounter Care Teams Division Road Supervisor Relationship Specialty Start Date End Date Sadie Thomas MD [address] [place] [address] PCP - General Family Medicine 10/22/23 Katharine Olivarez DELIVERY ENGINEER [address] [place] [address] Nurse Practitioner Family Medicine 10/22/23 documented as of this encounter
--- OUTSIDE RECORDS SUMMARY | 2024-08-28 09:35 | XMS_ITS | Encounter Summary ---
Author Organization [facility] Address [address] [place] [address] Care Team Providers Care Corporate Administrator Name Role Phone Sadie Thomas MD Primary Care Provider [phone] Katharine Olivarez NP Unavailable Encounter Details Date Type Department Care Team (Late st Contact Info) Description 08/14/2024 Clinisync Result Encounter NOMS External Department Unsolicited Dominguez Wilson, [address] [facility] [place] [address] Social History Tobacco Use Types Packs/Day Years [...] often do you attend chur ch or holiness services? Never 03/15/2023 Do you belong to [...] Routine [facility] BCP OB [address] [place] [address] Dominguez Wilson, DO [address] [place] [address] [place] [address] documented as of this encounter Procedures Procedure Name Priority Date/Time Associated Diagnosis Comments US OB PLACENTA 08/14/2024 9:23 AM EDT documented in this encounter Results * US OB PLACENTA (08/14/2024 9:23 AM EDT) Anatomical Region Laterality Modality Other 08/14/2024 9:23 AM EDT Narrative 08/14/2024 9:26 [place] [address] Ultrasound Report Signed Patient: JORDIN KIDD MR#: [id number] : 2005 Acct:[id number] Age/Sex: 19 / F ADM Date: Loc: [facility] 250-[address]: Dominguez Wilson D.O. Ordering Physician: Dominguez Wilson D.O. Date of Service: 08/14/24 Procedure(s): US OB placenta Accession Number(s): [id number] cc: Dominguez Wilson D.O.; Physician,Non-Staff M.[place] The [place] [address] Patient Name: JORDIN KIDD MRN: [facility]:[id number] date: 2005 Sex: F Assigned Patient Location: [facility] Current Patient Location: Accession/Order Number: [id number] Exam Date: 08/14/2024 09:18 Report Date: 08/14/2024 09:23 At the request of: DOMINGUEZ WILSON DO Procedure: US OB cervical length CLINICAL DATA: SGA. Contractions. BIOPHYSICAL PROFILE: COMPARISON: 08/07/2024 There is a single live intrauterine gestation in breech presentation. The reported gestational age is 31 weeks 4 days.. The heart rate qiewjagw722 beats per minute. FINDINGS: TONE: 1 or [...] Roe M.D. 08/14/2024 9:23 AM Dictation Location: [place] [address] Electronically authenticated by: [id number] Y Date: 08/14/2024 09:23 Dictated By: Tavia Roe M.D. Signed By: 08/14/24925 DD/ 2 TD/TT: Internal Grinding Machine Operator: Procedure Note Radiology, Radiologist, MD - 08/14/2024 [place] [address] Ultrasound Report Signed Patient: JORDIN KIDD AMR#: [id number] : 2005Acct:[id number] Age/Sex: 19 FADM Date: Loc: [facility] 250- Attending Dr: Dominguez Wilson D.O. Ordering Physician: Dominguez Wilson D.O. Date of Service: 08/14/24 Procedure(s): US OB placenta Accession Number(s): [id number] cc: Dominguez Wilson D.O.; Physician,Non-Staff Christine The [place] [id number] Patient Name: JORDIN KIDD MRN: [id number] date: 2005 Sex: F Assigned Patient Location: [facility] Current Patient Location: Accession/Order Number: [id number] Exam Date: 08/14/2024 09:18 Report Date: 08/14/2024 09:23 At the request of: DOMINGUEZ WILSON DO Procedure: US OB cervical length CLINICAL DATA: SGA. Contractions. BIOPHYSICAL PROFILE: COMPARISON: 08/07/2024 There is a single live intrauterine gestation in breech presentation. The reported gestational age is 31 weeks 4 days.. The heart rate wzlnlizr793 beats per minute. FINDINGS: TONE: 1 or [...] Roe M.D. 08/14/2024 9:23 AM Dictation Location: [place] [address] Electronically authenticated by: [id number] Y Date: 9:23 Dictated By: Tavia Roe M.D. Signed By:08/14/24925 DD/ 2 TD/TT: Internal Grinding Machine Operator: us Dominguez Steve DO [facility] Final Result documented in this encounter Visit Diagnoses Not on filedocumented in this encounter Care Teams Corporate Administrator Relationship Specialty Start Date End Date Sadie Thomas MD [address] [place] [address] PCP - General Family Medicine 10/22/23 Katharine Olivarez NP [address] [place] [address] Nurse Practitioner Family Medicine 10/22/23 documented as of this encounter
--- OUTSIDE RECORDS SUMMARY | 2024-08-28 09:35 | XMS_ITS | Encounter Summary ---
Author Organization [facility] Address [address] [place] [address] Care Team Providers Care Chip Unloader Name Role Phone Sadie Thomas MD Primary Care Provider [phone] Katharine Olivarez MANAGER TRANSIT Unavailable [phone] Encounter Details Date Type Department Care Team (Late st Contact Info) Description 08/19/2024 Bamboo flowsheet [facility] OB [address] [place] [address] Jerry Wilson, DO [address] [place], [place] [id number] Social History Tobacco Use Types Packs/Day Years [...] any clubs o r organizations such as jain groups, unions, fraternal or athletic groups, or [...] [address] [place] [address] Jerry Wilson, DO [address] [place], [place] [id number] documented as of this encounter Visit Diagnoses Not on filedocumented in this encounter Care Teams Chip Unloader Relationship Specialty Start Date End Date Sadie Thomas MD [address] [place] [address] PCP - General Family Medicine 10/22/23 Katharine Olivarez NP [address] [place] [address] Nurse Practitioner Family Medicine 10/22/23 documented as of this encounter
--- NOTE | 2024-08-28 17:01 | US_ITS ---
[place] [id number] Patient Name: JORDIN TYLER MRN: [id number] date: 2005 Sex: F Assigned Patient Location: [facility] Current Patient Location: Accession/Order Number: [id number] Exam Date: 08/28/2024 21:47 Report Date: 08/28/2024 21:47 At the request of: AVANI SCHULTE Procedure: US OB BPP w non-stress Ultrasound biophysical profile HISTORY: Small for gestational age Adequate breathing movement, gross body movement, tone and amniotic fluid volume for total score of 8 out of 8. The amniotic fluid index is 11.1cm within normal limits. The heart rate 126 bpm. US/US OB BPP w non-stress IMPRESSION: Adequate ultrasound biophysical profile Impression dictated by: Vijay Castaneda M.D. 08/28/2024 9:47 PM Dictation Location: [place] [address] Electronically authenticated by: [id number] Y Date: 08/28/2024 21:47
[2024-08-28 17:24] VITALS: BP 123/58; PULSE 85
== END 2024-08-28 17:45 | disposition home or self-care (01) ==
LOC: US 09:29 → FBC 16:59
PROVIDERS: Visit Provider Physician Assistant
DX: O26.843 Uterine size-date discrepancy, third trimester (principal); Z3A.33 33 weeks gestation of pregnancy
CPT/HCPCS: 76818